=== PATIENT | female | born 1940 | race Caucasian/White ===

== ENCOUNTER 2022-11-29 13:38 | Outpatient (OUT) | payer MEDICARE, SELFPAY ==
--- NOTE | 2022-11-29 13:20 | PM.CN ---
Consult Note: HPI Data of Consult Patient: known to practice within the last 3 years Consult date: 11/29/22 Requesting Physician: Jigna Gonzalez MD Primary Care Provider: JENNIFER JUANY Consult Narrative Reason for consult: knee pain Narrative: Ashley is here for f/u of right GNB done 11/19/22 . She had >60% relief of pain with increased fx for several hours after procedure. She would like to proceed with thermal genicular RFA right knee. She requests pain med. Will give rx for naproxen. She denies blood thinner use. No new bowel or bladder issues. No new sensorimotor sx. No untoward medication SE. Pain is medial aspect of right knee worse with steps, walking. cc:: CC: Jigna Gonzalez MD Review of Systems ROS Status of ROS 10 or more systems reviewed and unremarkable except as noted in history and below Musculoskeletal Reports: extremity pain, extremity swelling, joint pain and limited range of motion Exam Constitutional: Documenting provider has reviewed patient's vital signs: yes Common normals: no apparent distress, average body habitus, oriented x3, no limitations, healthy appearing, alert and well nourished General appearance: cooperative, comfortable and well developed Orientation/consciousness: Yes awake, Yes oriented to person, Yes oriented to place and Yes oriented to time HENMT: Common normals: normocephalic and moist oral mucous membranes Respiratory: Common normals: normal respiratory effort, no retractions and no use of accessory muscles Effort & inspection: able to speak in complete sentences Extremity: Common normals: normal capillary refill and no pedal edema Left lower extremity: knee joint (limited ROM d/t pain. brisk cap refill. muscle strength bilat LE 4/5 ) Left knee: neurovascular exam (sensation intact) Skin: Common normals: no rashes or lesions noted Assessment and Plan Assessment and Plan (1) Knee osteoarthritis: Plan schedule right genicular thermal RFA naproxen rx
== END 2022-11-29 13:39 ==
PROVIDERS: PCP Internal Medicine; Visit Provider Anesthesiology Pain Medicine
DX: M17.9 Osteoarthritis of knee, unspecified (principal)
CPT/HCPCS: G0463

== ENCOUNTER 2022-12-24 10:09 | Day surgery (SDC) | payer MEDICARE, SELFPAY ==
--- NOTE | 2022-12-23 13:37 | CONS_ITS ---
PROCEDURE DATE: ??12/23/2022 PROCEDURE:? Right genicular RFA under fluoroscopic guidance. PREOPERATIVE DIAGNOSIS:? Pain secondary to arthrosis/degenerative joint disease. POSTOPERATIVE DIAGNOSIS:? Pain secondary to arthrosis/degenerative joint disease. Rhizotomy was completed using radiofrequency ablation at 80 degrees Centigrade for 90 seconds and 1-2 lesions were created at each site.? IMMEDIATE COMPLICATIONS:? None. ANESTHESIA:? Local using 2% lidocaine plain. SOLUTION USED FOR INJECTION POST LESIONING:? At the lesion site, we injected a solution of Marcaine 0.25%, Depo-Medrol 40 mg, total of 5 mL, 0.5 mL used at each site post lesioning. PROCEDURE:? After informed consent was obtained from the patient, brought to the OR, placed in the supine position.? Skin overlying the area was prepped and draped in sterile fashion using Betadine.? A 25 gauge needle was used to raise a skin wheal over the right superomedial, right inferomedial and left superolateral genicular branches, all identified under fluoroscopy, including landmarks all identified under fluoroscopy.? A rhizotomy needle with 10 mm active tip was inserted over the anesthetized area, directed towards the site, under fluoroscopic guidance.? After encountering the same, we have positive sensory stimulation, negative motor stimulation, and thus 1-2 lesions were created at each site.? Post lesioning, needle was removed.? Patient returned to the recovery room in stable condition, to be discharged home after meeting criteria. HEAVEN
--- NOTE | 2022-12-24 11:20 | PCN_ITS ---
PROCEDURE NOTE ? PROCEDURE DATE: ??12/24/2022 ? PROCEDURE:? Right genicular RFA under fluoroscopic guidance. ? PREOPERATIVE DIAGNOSIS:? Pain secondary to arthrosis/degenerative joint disease. ? POSTOPERATIVE DIAGNOSIS:? Pain secondary to arthrosis/degenerative joint disease. ? Rhizotomy was completed using radiofrequency ablation at 80 degrees Centigrade for 90 seconds and 1-2 lesions were created at each site.? ? IMMEDIATE COMPLICATIONS:? None. ? ANESTHESIA:? Local using 2% lidocaine plain. ? SOLUTION USED FOR INJECTION POST LESIONING:? At the lesion site, we injected a solution of Marcaine 0.25%, Depo-Medrol 40 mg, total of 5 mL, 0.5 mL used at each site post lesioning. ? PROCEDURE:? After informed consent was obtained from the patient, brought to the OR, placed in the supine position.? Skin overlying the area was prepped and draped in sterile fashion using Betadine.? A 25 gauge needle was used to raise a skin wheal over the right superomedial, right inferomedial and left superolateral genicular branches, all identified under fluoroscopy, including landmarks all identified under fluoroscopy.? A rhizotomy needle with 10 mm active tip was inserted over the anesthetized area, directed towards the site, under fluoroscopic guidance.? After encountering the same, we have positive sensory stimulation, negative motor stimulation, and thus 1-2 lesions were created at each site.? Post lesioning, needle was removed.? Patient returned to the recovery room in stable condition, to be discharged home after meeting criteria. HEAVEN
[2022-12-24 11:24] VITALS: BP 197/81; PULSE 76; RESP 16; TEMP 36.5; O2SAT 100
[2022-12-24 11:27] VITALS: BP 156/78
--- NOTE | 2022-12-24 11:48 | P.ON_ITS ---
Date of procedure: 12/24/22 Surgeon: Jigna Gonzalez
--- NOTE | 2022-12-24 11:48 | W.PM.PROCNOT ---
Date of procedure: 12/24/22 Surgeon: Jigna Gonzalez
[2022-12-24 11:53] VITALS: RESP 20
[2022-12-24 11:58] VITALS: BP 163/77; PULSE 72; O2SAT 91
[2022-12-24] MEDS: METHYLPREDNISOLONE ACETATE 40 MG/ML VIAL INJ (12:02)
[2022-12-24] MEDS: BUPIVACAINE HCL 0.25% PF 25 MG/10 ML VIAL 4 ML INJ (12:03)
[2022-12-24] MEDS: LIDOCAINE HCL 2% 400 MG/20 ML MDV 12 ML INJ (12:03)
[2022-12-24 12:10] VITALS: BP 183/83; PULSE 73; O2SAT 99
--- NOTE | 2022-12-25 13:25 | W.PM.PROCNOT ---
Date of procedure: 12/24/22 Pre-op diagnosis: right knee osteoarthritis/pain Post-op diagnosis: same Procedure: Genicular nerve radiofrequency ablation on the right side under fluoroscopic guidance. SOLUTION USED FOR INJECTION: Marcaine 0.25%. IMMEDIATE COMPLICATIONS: None. PROCEDURE: After informed consent was obtained from the patient, brought to the OR, placed in the supine position. Skin overlying the area was prepped and draped in sterile fashion. Subsequently, a 25 gauge spinal needle was inserted over the inferior medial genicular nerve. Landmarks were identified under fluoroscopy. Needle tip advanced until the desired location was achieved, at which point we ruled out intravascular or intraneural needle tip placement. 1 mL of solution was injected. This procedure was performed in a similar fashion at the superior medial and superior lateral branches of the genicular nerve. Throughout the procedure, no indication of intravascular or intraneural needle tip placement or injection. Post procedurally, needle removed. Patient tolerated the procedure with no complications, transferred to the recovery room in stable condition. She will be discharged home after meeting criteria. Patient informed to keep a pain diary for the first two hours post procedurally.
== END 2022-12-24 12:19 | disposition home or self-care (01) ==
PROVIDERS: PCP Internal Medicine; Visit Provider Anesthesiology Pain Medicine
DX: M17.11 Unilateral primary osteoarthritis, right knee (principal)
CPT/HCPCS: 64624; 77002; J1030

== ENCOUNTER 2023-01-09 13:55 | Outpatient (OUT) | payer MEDICARE, SELFPAY ==
--- NOTE | 2023-01-09 14:32 | PM.CN ---
Consult Note: HPI Data of Consult Consult date: 01/09/23 Requesting Physician: RAFAELA WHITNEY NP Primary Care Provider: Odell Goodson DO Consult Narrative Narrative: She is here for f/u to right GNB done 12/24/22. She received 50% relief of pain with increased fx continued through today. She does have left knee pain today and we discussed doing GNB on left knee. Hx of total knee left 9 years ago. She wants to think about procedure and will call us to schedule. No new sensorimotor or bowel or bladder issues. No adverse med SE. Medications assist patient to be able to complete ADLs cc:: CC: RAFAELA WHITNEY NP Review of Systems ROS Status of ROS 10 or more systems reviewed and unremarkable except as noted in history and below Musculoskeletal Reports: extremity pain PFSH PFSH Medical History (Updated 01/09/23 @ 14:47 by RAFAELA WHITNEY NP) Surgical History Meds Home Medications and Allergies Home Medications Medication Instructions Recorded Confirmed Type alprazolam 0.25 mg tablet (Xanax) 0.25 mg PO DAILY PRN anxiety 11/29/22 12/24/22 History aspirin 81 mg tablet,delayed 81 mg PO DAILY 11/29/22 12/24/22 History release (Adult Low Dose Aspirin) atorvastatin 20 mg tablet 20 mg PO DAILY 11/29/22 12/24/22 History cetirizine 10 mg tablet (Zyrtec) 10 mg PO DAILY 11/29/22 12/24/22 History glucosamine HCl 1,500 mg tablet 1,000 mg PO BID 11/29/22 12/24/22 History losartan 25 mg tablet 25 mg PO DAILY 11/29/22 12/24/22 History metoprolol succinate 25 mg 25 mg PO DAILY 11/29/22 12/24/22 History tablet,extended release 24 hr zolpidem 10 mg tablet (Ambien) 10 mg PO .QHS 11/29/22 12/24/22 History Allergies Allergy/AdvReac Type Severity Reaction Status Date / Time rocuronium Allergy Severe Anaphylaxis Verified 12/24/22 11:12 acetaminophen [From Vicodin] Allergy Intermediate UPSET Verified 12/24/22 11:12 STOMACH hydrocodone [From Vicodin] Allergy Intermediate UPSET Verified 12/24/22 11:12 STOMACH oxycodone [From Percocet] Allergy Intermediate Nausea, Verified 12/24/22 11:12 UPSET STOMACH Exam Constitutional Documenting provider has reviewed patient's vital signs: yes Common normals: no apparent distress, average body habitus, oriented x3, healthy appearing, alert and well nourished Orientation/consciousness: Yes awake, Yes oriented to person, Yes oriented to place and Yes oriented to time HENCA Common normals: normocephalic and moist oral mucous membranes Respiratory Common normals: normal respiratory effort, no retractions and no use of accessory muscles Effort & inspection: able to speak in complete sentences and symmetric chest movement Extremity Common normals: normal to inspection, full ROM, normal capillary refill and no pedal edema Right lower extremity: knee joint Left lower extremity: knee joint Other: left knee pain with ROM and especially climbing stairs. Brisk cap refill to bilat LE with intact sensation and muscle strength 4/5 Assessment and Plan Assessment and Plan (1) Knee osteoarthritis: Plan left genicular nerve block under fluoroscopy- she will call when ready to schedule
== END 2023-01-09 13:56 | disposition home or self-care (01) ==
LOC: PM 13:55
PROVIDERS: PCP Internal Medicine; Visit Provider Nurse Practitioner
DX: M17.0 Bilateral primary osteoarthritis of knee (principal)
CPT/HCPCS: G0463

== ENCOUNTER 2023-02-06 08:32 | Day surgery (SDC) | payer MEDICARE, SELFPAY ==
[2023-02-06 09:15] VITALS: BP 136/74; PULSE 60; RESP 16; TEMP 36.5; O2SAT 100
[2023-02-06 09:48] VITALS: RESP 20
[2023-02-06 09:54] VITALS: BP 143/64; PULSE 67; O2SAT 95
[2023-02-06] MEDS: BUPIVACAINE HCL 0.25% PF 25 MG/10 ML VIAL 8 ML INJ (09:56)
[2023-02-06 09:57] VITALS: BP 137/63; PULSE 67; O2SAT 99
--- NOTE | 2023-02-06 11:31 | W.PM.PROCNOT ---
Date of procedure: 02/06/23 Pre-op diagnosis: left knee osteoarthritis Post-op diagnosis: same as pre-op Procedure: Left knee Genicular Nerve Block SOLUTION USED FOR INJECTION: Marcaine 0.25%. IMMEDIATE COMPLICATIONS: None. PROCEDURE: After informed consent was obtained from the patient, brought to the OR, placed in the supine position. Skin overlying the area was prepped and draped in sterile fashion. Subsequently, a 25 gauge spinal needle was inserted over the inferior medial genicular nerve. Landmarks were identified under fluoroscopy. Needle tip advanced until the desired location was achieved, at which point we ruled out intravascular or intraneural needle tip placement. 1 mL of solution was injected. This procedure was performed in a similar fashion at the superior medial and superior lateral branches of the genicular nerve. Throughout the procedure, no indication of intravascular or intraneural needle tip placement or injection. Post procedurally, needle removed. Patient tolerated the procedure with no complications, transferred to the recovery room in stable condition. She will be discharged home after meeting criteria. Patient informed to keep a pain diary for the first two hours post procedurally. Anesthesia: Local Surgeon: Jigna Gonzalez Condition: stable
== END 2023-02-06 10:06 | disposition home or self-care (01) ==
LOC: SURGOUT 08:32
PROVIDERS: PCP Internal Medicine; Visit Provider Anesthesiology Pain Medicine
DX: M17.12 Unilateral primary osteoarthritis, left knee (principal)
CPT/HCPCS: 64454

== ENCOUNTER 2023-02-13 13:27 | Outpatient (OUT) | payer MEDICARE, SELFPAY ==
--- NOTE | 2023-02-13 13:54 | PM.CN ---
Consult Note: HPI Data of Consult Patient: known to practice within the last 3 years Requesting Physician: Carisa Parrish NP Primary Care Provider: Odell Goodson DO Consult Narrative Reason for consult: left genicular nerve block follow up Narrative: Ashley Aguila a pleasant 82 year old female presents for follow up on chronic knee pain. Patient had a left genicular knee block on 02/06 with 80% pain relief and improvement in ability to stand longer, walk further, and complete ADLs after procedure. Today pain is 6-7/10 in left knee and she would like to discuss thermal RFA. cc:: CC: Carisa Parrish NP Review of Systems ROS Status of ROS 10 or more systems reviewed and unremarkable except as noted in history and below Musculoskeletal Reports: joint pain (left knee) PFSH PFS Medical History (Updated 02/13/23 @ 13:59 by Carisa Parrish NP) Surgical History Meds Home Medications and Allergies Home Medications Medication Instructions Recorded Confirmed Type alprazolam 0.25 mg tablet (Xanax) 0.25 mg PO DAILY PRN anxiety 11/29/22 02/06/23 History aspirin 81 mg tablet,delayed 81 mg PO DAILY 11/29/22 02/06/23 History release (Adult Low Dose Aspirin) atorvastatin 20 mg tablet 20 mg PO DAILY 11/29/22 02/06/23 History glucosamine HCl 1,500 mg tablet 1,000 mg PO BID 11/29/22 02/06/23 History losartan 25 mg tablet 25 mg PO DAILY 11/29/22 02/06/23 History metoprolol succinate 25 mg 25 mg PO DAILY 11/29/22 02/06/23 History tablet,extended release 24 hr zolpidem 10 mg tablet (Ambien) 10 mg PO .QHS 11/29/22 02/06/23 History Allergies Allergy/AdvReac Type Severity Reaction Status Date / Time rocuronium Allergy Severe Anaphylaxis Verified 02/06/23 09:23 acetaminophen [From Vicodin] Allergy Intermediate UPSET Verified 02/06/23 09:23 STOMACH hydrocodone [From Vicodin] Allergy Intermediate UPSET Verified 02/06/23 09:23 STOMACH oxycodone [From Percocet] Allergy Intermediate Nausea, Verified 02/06/23 09:23 UPSET STOMACH Exam Constitutional Documenting provider has reviewed patient's vital signs: yes Common normals: no apparent distress, oriented x3, healthy appearing, alert and well nourished General appearance: cooperative Nutritional appearance: overweight HENMT Common normals: normocephalic, hearing grossly normal bilaterally and moist oral mucous membranes Head and scalp: normocephalic Eye Common normals: PERRL Pupil: PERRL Neck & C-Spine Common normals: full ROM General: normal visual inspection Chest Common normals: inspection of chest normal Respiratory Common normals: normal respiratory effort, no retractions and no use of accessory muscles Back & Pelvis Common normals: thoracic and lumbar spine normal to inspection, no thoracic nor lumbar tenderness, thoraco-lumbar ROM normal and straight leg raise negative bilaterally Sacroiliac joints: SI joints normal Extremity Common normals: no calf tenderness and no pedal edema Left lower extremity: knee joint (pain with activity, weight bearing, ROM. Limited ROM. Strength 4/5) Neuro Common normals: oriented x3, CN's II-XII intact bilaterally, moves all extremities, no focal motor deficits, no sensory deficits noted and deep tendon reflexes 2+ bilaterally Sensorium/orientation: alert Motor exam: no movement abnormalities noted and strength abnormal (5/5 BUE, 4/5 BLE) Psych Common normals: mental status grossly normal, thought process normal, cooperative, affect normal, speech normal and activity/motor behavior normal Speech: normal speech Thought process: normal thought process Results Additional Findings Additional findings: I have checked an [place] report on this patient today and there are no aberrancies noted in the prescribing history.?? A drug screen was completed and reviewed within the last year, and if there has not been a drug screen completed we ordered one today to monitor higher risk, state monitored pain medication use. Assessment and Plan Assessment and Plan (1) Knee osteoarthritis: (2) Chronic pain syndrome: (3) BMI 31.0-31.9,adult: Assessment and Plan: The patient was counseled that proper dietary changes and consistent participation in a home exercise plan can lead to weight loss. Weight loss can help to improve functionality in patients with chronic pain.? Plan -proceed with left genicular thermal RFA with PO sedation. Patient reports she has valium at home, instructed we would write for 5mg PO 30 mins prior to procedure if her is or she does not actually have at home. -procedure risks vs benefits discussed -continue home exercise -continue pool exercises, has been going 4x/week -continue naproxen 500mg PRN -follow up one month after RFA
== END 2023-02-13 13:28 | disposition home or self-care (01) ==
LOC: PM 13:28
PROVIDERS: PCP Internal Medicine; Visit Provider Nurse Practitioner
DX: M17.12 Unilateral primary osteoarthritis, left knee (principal); G89.4 Chronic pain syndrome
CPT/HCPCS: G0463

== ENCOUNTER 2023-03-04 11:09 | Day surgery (SDC) | payer MEDICARE, SELFPAY ==
[2023-03-04 11:46] VITALS: BP 133/62; PULSE 67; RESP 16; TEMP 36.3; O2SAT 99
[2023-03-04 12:45] VITALS: PULSE 60; RESP 18; O2SAT 95
[2023-03-04 12:46] VITALS: BP 159/67
[2023-03-04] MEDS: LIDOCAINE HCL 2% 400 MG/20 ML MDV 15 ML INJ (12:48)
[2023-03-04] MEDS: BUPIVACAINE HCL 0.25% PF 25 MG/10 ML VIAL INJ (12:48)
[2023-03-04] MEDS: METHYLPREDNISOLONE ACETATE 40 MG/ML VIAL INJ (12:49)
[2023-03-04 12:52] VITALS: BP 165/71; PULSE 65; RESP 18; O2SAT 95
--- NOTE | 2023-03-04 16:11 | W.PM.PROCNOT ---
Date of procedure: 03/04/23 Pre-op diagnosis: Left knee osteoarthritis Post-op diagnosis: same as pre-op Procedure: left knee genicular nerve Radiofrequency ablation Under fluoroscopic guidance Rhizotomy was created using radio frequency ablation at 80?C for 90 seconds 1 to 2 lesions created at each site. Post lesioning injection of 2 mL each of 0.25% Marcaine and 2% lidocaine with Depo-Medrol 40mg. 0.5 to 1 mL injected at each site Anesthesia local 2% lidocaine for local anesthetic Timeout process compliant After informed consent obtained.Patient brought to the procedure room placed in the supine position skin overlying the area was prepped and draped in a sterile fashion using betadine. 25 gauge needle was used to create a skin wheal over each of the targeted areas utilizing 2% lidocaine. A rhizotomy needle with a 10 mm active tip was inserted over each of the anesthetized areas and directed towards each of the genicular nerves accomplished under fluoroscopic guidance. after encountering the same we had positive sensory stimulation, negative motor stimulation was noted. lesions were then created. Post lesioning, steroid solution was injected needles removed. Patient was transferred to recovery room in stable condition to be discharged home after meeting criteria. Anesthesia: Local Surgeon: Jigna Gonzalez Condition: stable
== END 2023-03-04 13:07 | disposition home or self-care (01) ==
LOC: SURGOUT 11:10
PROVIDERS: PCP Internal Medicine; Visit Provider Anesthesiology Pain Medicine
DX: M17.12 Unilateral primary osteoarthritis, left knee (principal)
CPT/HCPCS: 64624; J1030

== ENCOUNTER 2023-04-09 12:51 | Outpatient (OUT) | payer MEDICARE, SELFPAY ==
--- NOTE | 2023-04-09 13:22 | PM.CN ---
Consult Note: HPI Data of Consult Patient: known to practice within the last 3 years Requesting Physician: Carisa Parrish NP Primary Care Provider: Odell Goodson DO Consult Narrative Reason for consult: f/u Narrative: Ashley Aguila a pleasant 82 year old female presents for evaluation and management of chronic knee pain. Patient today rating pain 5/10 in bilateral knees. Recently had a genicular RFA of left elsie with 20% pain relief and functional improvement. Patient was previously a patient of Dr Marcelo and is now looking for another opinion. Patient would like to discuss additional imaging while she looks for new conservation specialist. Patient has previously had a total knee replacement of left knee. cc:: CC: Carisa Parrish NP Review of Systems ROS Status of ROS 10 or more systems reviewed and unremarkable except as noted in history and below Musculoskeletal Reports: joint pain (bilateral knees) PFSH PFSH Medical History (Updated 04/09/23 @ 13:26 by Carisa Parrish NP) Acid reflux ?K21.9 - Gastro-esophageal reflux disease without esophagitis (ICD-10) Cataract ?H26.9 - Unspecified cataract (ICD-10) Hearing deficit ?H91.90 - Unspecified hearing loss, unspecified ear (ICD-10) Heartburn ?R12 - Heartburn (ICD-10) Hypertension ?I10 - Essential (primary) hypertension (ICD-10) [place] stenosis of renal artery ?I70.1 - Atherosclerosis of renal artery (ICD-10) Surgical History Meds Home Medications and Allergies Home Medications Medication Instructions Recorded Confirmed Type alprazolam 0.25 mg tablet (Xanax) 0.25 mg PO DAILY PRN anxiety 11/29/22 03/04/23 History aspirin 81 mg tablet,delayed 81 mg PO DAILY 11/29/22 03/04/23 History release (Adult Low Dose Aspirin) atorvastatin 20 mg tablet 20 mg PO DAILY 11/29/22 03/04/23 History glucosamine HCl 1,500 mg tablet 1,000 mg PO BID 11/29/22 03/04/23 History losartan 25 mg tablet 25 mg PO DAILY 11/29/22 03/04/23 History metoprolol succinate 25 mg 25 mg PO DAILY 11/29/22 03/04/23 History tablet,extended release 24 hr zolpidem 10 mg tablet (Ambien) 10 mg PO .QHS 11/29/22 03/04/23 History Allergies Allergy/AdvReac Type Severity Reaction Status Date / Time rocuronium Allergy Severe Anaphylaxis Verified 03/04/23 11:51 acetaminophen [From Vicodin] Allergy Intermediate UPSET Verified 03/04/23 11:51 STOMACH hydrocodone [From Vicodin] Allergy Intermediate UPSET Verified 03/04/23 11:51 STOMACH oxycodone [From Percocet] Allergy Intermediate Nausea, Verified 03/04/23 11:51 UPSET STOMACH Exam Constitutional Documenting provider has reviewed patient's vital signs: yes Common normals: no apparent distress, oriented x3, healthy appearing, alert and well nourished General appearance: cooperative HENMT Common normals: normocephalic, hearing grossly normal bilaterally and moist oral mucous membranes Head and scalp: normocephalic Eye Common normals: PERRL Pupil: PERRL Neck & C-Spine Common normals: full ROM General: normal visual inspection Chest Common normals: inspection of chest normal Respiratory Common normals: normal respiratory effort, no retractions and no use of accessory muscles Extremity Right lower extremity: knee joint Left lower extremity: knee joint Other: right knee swollen, bilateral knees enlarged diameter. No redness or warmth. Patient does have pain with ambulation and stairs. Intermittent edema of left knee. Neuro Common normals: oriented x3, CN's II-XII intact bilaterally, moves all extremities, no focal motor deficits, no sensory deficits noted and deep tendon reflexes 2+ bilaterally Sensorium/orientation: alert Motor exam: strength 5/5 throughout and no movement abnormalities noted Psych Common normals: mental status grossly normal, thought process normal, cooperative, affect normal, speech normal and activity/motor behavior normal Speech: normal speech Thought process: normal thought process Assessment and Plan Assessment and Plan (1) Bilateral knee pain: (2) Knee osteoarthritis: (3) Chronic pain syndrome: Plan Patient continues water therapy 4x a week and cardiac rehab. Advised against naproxen use, encouraged acetaminophen. Continues to have bilateral knee pain that has failed PT and conservative medication management. Patient pursuing additional input from orthopedic specialists. Patient would like an MRI to help get more answers and help with her case of seeing a specialist. I am in agreement as she has failed PT and conservative measures and continues to have bilateral knee pain. Left RFA 20% pain relief and functional improvement ongoing MRI bilateral Knees f/u 2 months
== END 2023-04-09 12:52 | disposition home or self-care (01) ==
LOC: PM 12:52
PROVIDERS: PCP Internal Medicine; Visit Provider Nurse Practitioner
DX: M25.562 Pain in left knee (principal); M25.561 Pain in right knee; G89.4 Chronic pain syndrome; M17.0 Bilateral primary osteoarthritis of knee
CPT/HCPCS: G0463

== ENCOUNTER 2023-04-24 13:29 | Outpatient (OUT) | payer MEDICARE, SELFPAY ==
--- NOTE | 2023-04-24 13:33 | MR_ITS ---
The [address] [address] Patient Name: JOAN BROWN MRN: [id number] date: 1940 Sex: F Assigned Patient Location: MRI Current Patient Location: MRI Accession/Order Number: [id number] Exam Date: 04/24/2023 13:50 Report Date: 04/24/2023 16:47 At the request of: COREEN SANCHEZ Procedure: MR knee LT wo con MR knee LT wo con History:Left Knee Pain . Comparison: None.. TECHNIQUE: Multiplanar multisequence MRI of the left knee was obtained. No intravenous or intra-articular contrast was administered before the examination. Limitations: The exam is very suboptimal due to artifact from the arthroplasty. The examination is further suboptimal as the patient could not extend the knee. FINDINGS: There is no obvious subluxation or dislocation. There is mild edema in the region of the Hoffa's fat pad. There is mild muscular atrophy. The ligaments cannot be evaluated confidently due to artifact. The medial collateral ligament and the IT band appears to be intact. Extensive blooming artifact as seen in the soft tissues anterior to the knee in the prepatellar subcutaneous tissue. MR/MR knee LT wo con Impression: Left knee arthroplasty is in place. No evidence of fluid collection. Mild subcutaneous edema. Mild edema in the Hoffa's fat pad. Electronically authenticated by: ABBEY SMITH Date: 04/24/2023 16:47
--- NOTE | 2023-04-24 13:33 | MR_ITS ---
The [address] [address] Patient Name: JOAN BROWN MRN: [id number] date: 1940 Sex: F Assigned Patient Location: MRI Current Patient Location: MRI Accession/Order Number: [id number] Exam Date: 04/24/2023 13:50 Report Date: 04/24/2023 16:46 At the request of: COREEN SANCHEZ Procedure: MR knee RT wo con MR knee RT wo con History:Right Knee Pain . Comparison: None. TECHNIQUE: Multiplanar multisequence MRI of the knee was obtained. No intravenous or intra-articular contrast was administered before the examination. Limitations: The exam is suboptimal due to motion artifact. FINDINGS: Alignment: The tibial tuberosity trochlear groove distance is within normal limits. There is no evidence of subluxation. MEDIAL MENISCUS: There is tear of the medial meniscus. There appears to be hypoattenuated material in the intercondylar region and deep to the MCL which may represent torn and disintegrated medial meniscus. LATERAL MENISCUS: There is severe mucoid degeneration. ANTERIOR CRUCIATE LIGAMENT:The ACL is torn. POSTERIOR CRUCIATE LIGAMENT: Intact with mild edema. MEDIAL COLLATERAL LIGAMENT:It is intact. There is medial buckling secondary to mass effect from the intra-articular body which is likely torn medial meniscus. LATERAL COLLATERAL LIGAMENT COMPLEX:The IT band is slightly thickened distally close to its insertion. The biceps femoris and the fibular collateral ligament are intact. EXTENSOR TENDONS: There is mild thickening and edema of the distal quadriceps tendon and the distal patellar tendon. BONE MARROW: No marrow signal abnormality is identified to suggest the presence of a fracture, contusion, bone infarct, or diffuse infiltrative process of the knee. CARTILAGE: PATELLOFEMORAL:High-grade full-thickness tear of the cartilage at the lateral patellar facet and at the trochlea. MEDIAL COMPARTMENT:High-grade full-thickness cartilage loss at the weightbearing surface. Marginal spurring. LATERAL COMPARTMENT:Full-thickness cartilage loss at the weightbearing surface. MISCELLANEOUS: JOINT EFFUSION:There is small joint effusion with intra-articular bodies. Synovitis. RODRIGUEZ'S CYST:Small popliteal cyst is noted. SUBCUTANEOUS TISSUE:Focal edema is seen anterior to the insertion of the patellar tendon. There is osteoarthritis at the proximal tibiofibular joint. An intra-articular body measuring 7 mm is seen posterior to the mid PCL and another intra-articular body measuring 1.6 cm is seen posterior to the inferior PCL. MR/MR knee RT wo con Impression: 1. High-grade tearing of the medial meniscus. 2. Intra-articular bodies. 3. Severe, tricompartmental osteoarthritis. 4. Tearing of the ACL. 5. Grade 2 pattern sprain of the PCL and the MCL. 6. Patellar tendinosis with focal edema anterior to it. Remainder of the chronic findings as described above. Electronically authenticated by: ABBEY SMITH Date: 04/24/2023 16:46
== END 2023-04-24 13:30 | disposition home or self-care (01) ==
LOC: MRI 13:29
PROVIDERS: PCP Internal Medicine; Visit Provider Nurse Practitioner
DX: M25.562 Pain in left knee (principal); M17.11 Unilateral primary osteoarthritis, right knee; Z96.652 Presence of left artificial knee joint; S83.241A Other tear of medial meniscus, current injury, right knee, initial encounter; S83.511A Sprain of anterior cruciate ligament of right knee, initial encounter; S83.411A Sprain of medial collateral ligament of right knee, initial encounter; S76.111A Strain of right quadriceps muscle, fascia and tendon, initial encounter; M76.51 Patellar tendinitis, right knee; M25.461 Effusion, right knee; M71.21 Synovial cyst of popliteal space [Baker], right knee
CPT/HCPCS: 73721

== ENCOUNTER 2023-05-29 09:50 | Outpatient (OUT) | payer MEDICARE, SELFPAY ==
--- NOTE | 2023-05-29 10:07 | P.CN_ITS ---
Consult Note: HPI Data of Consult Patient: known to practice within the last 3 years Requesting Physician: Carisa Parrish NP Primary Care Provider: Odell Goodson, DO Consult Narrative Reason for consult: f/u Narrative: Ashley Aguila a pleasant 82 year old female presents for evaluation and management of chronic bilateral knee pain, left knee has been surgically replaced. Patient had MRI of bilateral knees and was seen by Dr Pichardo, patient does not wish to have surgery. Dr Pichardo recommended left hip intra-articular injection. Pain today in bilateral knees 10/07 cc:: CC: Carisa Parrish NP Review of Systems ROS Status of ROS 10 or more systems reviewed and unremarkable except as noted in history and below Musculoskeletal Reports: joint pain (bilateral knees) PFSH PFSH Medical History (Updated 05/29/23 @ 10:26 by Carisa Parrish NP) Acid reflux ?K21.9 - Gastro-esophageal reflux disease without esophagitis (ICD-10) Cataract ?H26.9 - Unspecified cataract (ICD-10) Hearing deficit ?H91.90 - Unspecified hearing loss, unspecified ear (ICD-10) Heartburn ?R12 - Heartburn (ICD-10) Hypertension ?I10 - Essential (primary) hypertension (ICD-10) [place] stenosis of renal artery ?I70.1 - Atherosclerosis of renal artery (ICD-10) Surgical History H/O breast biopsy ?Z98.890 - Other specified postprocedural states (ICD-10) H/O section ?Z98.891 - History of uterine scar from previous surgery (ICD-10) H/O cystoscopy ?Z98.890 - Other specified postprocedural states (ICD-10) H/O myringotomy ?Z98.890 - Other specified postprocedural states (ICD-10) H/O oral surgery ?Z98.890 - Other specified postprocedural states (ICD-10) History of bunionectomy ?Z98.890 - Other specified postprocedural states (ICD-10) History of ear surgery ?Z98.890 - Other specified postprocedural states (ICD-10) History of tonsillectomy ?Z90.89 - Acquired absence of other organs (ICD-10) Hx of cholecystectomy ?Z90.49 - Acquired absence of other specified parts of digestive tract (ICD- 10) Hx of total knee arthroplasty ?Z96.659 - Presence of unspecified artificial knee joint (ICD-10) S/P foot surgery ?Z98.890 - Other specified postprocedural states (ICD-10) S/P vascular bypass ?Z95.828 - Presence of other vascular implants and grafts (ICD-10) Meds Home Medications and Allergies Home Medications Medication Instructions Recorded Confirmed Type alprazolam 0.25 mg tablet (Xanax) 0.25 mg PO DAILY PRN anxiety 11/29/22 03/04/23 History aspirin 81 mg tablet,delayed 81 mg PO DAILY 11/29/22 03/04/23 History release (Adult Low Dose Aspirin) atorvastatin 20 mg tablet 20 mg PO DAILY 11/29/22 03/04/23 History glucosamine HCl 1,500 mg tablet 1,000 mg PO BID 11/29/22 03/04/23 History losartan 25 mg tablet 25 mg PO DAILY 11/29/22 03/04/23 History metoprolol succinate 25 mg 25 mg PO DAILY 11/29/22 03/04/23 History tablet,extended release 24 hr zolpidem 10 mg tablet (Ambien) 10 mg PO .QHS 11/29/22 03/04/23 History Allergies Allergy/AdvReac Type Severity Reaction Status Date / Time rocuronium Allergy Severe Anaphylaxis Verified 03/04/23 11:51 acetaminophen [From Vicodin] Allergy Intermediate UPSET Verified 03/04/23 11:51 STOMACH hydrocodone [From Vicodin] Allergy Intermediate UPSET Verified 03/04/23 11:51 STOMACH oxycodone [From Percocet] Allergy Intermediate Nausea, Verified 03/04/23 11:51 UPSET STOMACH Exam Constitutional Documenting provider has reviewed patient's vital signs: yes Common normals: no apparent distress, oriented x3, healthy appearing, alert and well nourished General appearance: cooperative HENMT Common normals: normocephalic, hearing grossly normal bilaterally and moist oral mucous membranes Head and scalp: normocephalic Eye Common normals: PERRL Pupil: PERRL Neck & C-Spine Common normals: full ROM General: normal visual inspection Chest Common normals: inspection of chest normal Respiratory Common normals: normal respiratory effort, no retractions and no use of accessory muscles Back & Pelvis Other: negative internal and external rotation of hip, no tenderness over bilateral GTB negative facet loading, no back pain Extremity Right lower extremity: knee joint Left lower extremity: knee joint Other: right knee swollen, bilateral knees enlarged diameter. No redness or warmth. Patient does have pain with ambulation and stairs. Intermittent edema of left knee. Neuro Common normals: oriented x3, CN's II-XII intact bilaterally, moves all extremities, no focal motor deficits, no sensory deficits noted and deep tendon reflexes 2+ bilaterally Sensorium/orientation: alert Motor exam: strength 5/5 throughout and no movement abnormalities noted Psych Common normals: mental status grossly normal, thought process normal, cooperative, affect normal, speech normal and activity/motor behavior normal Speech: normal speech Thought process: normal thought process Assessment and Plan Assessment and Plan (1) Osteoarthritis of left hip: (2) Bilateral knee pain: (3) Chronic pain syndrome: Plan update xray of left hip left hip intra-artciular joint injection under fluoroscopy f/u with Dr Gonzalez after injection, we are limited as pt is on PRN benzodiazepines, has failed to respond to injection therapy, and not interested in re-trialing duloxetine for chronic pain. Patients PCP Dr Goodson did order tramadol for patient to try.
== END 2023-05-29 09:51 | disposition home or self-care (01) ==
LOC: PM 09:50
PROVIDERS: PCP Internal Medicine; Visit Provider Nurse Practitioner
DX: M25.552 Pain in left hip (principal); M16.12 Unilateral primary osteoarthritis, left hip; M25.562 Pain in left knee; M25.561 Pain in right knee; G89.4 Chronic pain syndrome
CPT/HCPCS: 73502; G0463

== ENCOUNTER 2023-05-29 10:41 | Outpatient (OUT) | payer MEDICARE, SELFPAY ==
--- NOTE | 2023-05-29 11:03 | XR_ITS ---
The [address] [address] Patient Name: JOAN BROWN MRN: [id number] date: 1940 Sex: F Assigned Patient Location: [facility] Current Patient Location: [facility] Accession/Order Number: [id number] Exam Date: 05/29/2023 10:56 Report Date: 05/31/2023 04:42 At the request of: COREEN SANCHEZ Procedure: XR hip LT min 2V PROCEDURE: XR hip LT min 2V HISTORY: Left Hip Pain , chronic COMPARISON: None. FINDINGS: BONES:Marked joint space narrowing with subchondral sclerosis and large periarticular degenerative osteophytes. No fracture, dislocation, or bone lesion. SOFT TISSUES:No visible soft tissue swelling. EFFUSION:None visible. OTHER: Negative. XR/XR hip LT min 2V IMPRESSION: 1. Marked degenerative joint disease of the left hip. Electronically authenticated by: TARIK MONROE Date: 05/31/2023 04:42
--- OUTSIDE RECORDS SUMMARY | 2023-06-18 00:50 | XMS_ITS | CCD ---
Author Name Unknown Address [address] [place] [address] Organization [facility] Care Team Providers Care Tone Cabinet Assembler Name Role Phone Odell Goodson Unavailable HAMZAH, DR RODRIGUEZ Admitting Unavailable HAMZAH, DR RODRIGUEZ Attending Unavailable HAMZAH, DR RODRIGUEZ Primary Care Unavailable LAKSHMIPATHY ., TANG Consulting Helen vailable HAMZAH, DR RODRIGUEZ Primary Care Unavailable LAKSHMIPATHY ., TANG Admitting Helen vailable LAKSHMIPATHY ., TANG Attending Helen vailable LAKSHMIPATHY ., NARENDTRACYATH Admitting Helen vailable BALL, DR RODRIGUEZ Primary Care Unavailable LAKSHMIPATHY ., TANG Attending Helen vailable LAKSHMIPATHY ., TANG Consulting Helen vailable HAMZAH, DR RODRIGUEZ Primary Care Unavailable HALKER ., RAFAELA Admitting Unavailable HALKER .RAFAELA Attending Unavailable JEREMIAS TERAN Attending Unavailable JEREMIAS TERAN Consulting Unavailable JEREMIAS TERAN Admitting Unavailable HAMZAH, DR RODRIGUEZ Primary Care Unavailable HAMZAH, DR RODRIGUEZ Admitting Unavailable HAMZAH, DR RODRIGUEZ Attending Unavailable HAMZAH, DR RODRIGUEZ Consulting Unavailable HAMZAH, DR RODRIGUEZ Primary Care Unavailable ZIEBER, DR TARIK Gee Consulting Unavailable HAMZAH, DR RODRIGUEZ Admitting Unavailable BALL, DR RODRIGUEZ Attending Unavailable BALL, DR RODRIGUEZ Consulting Unavailable HAMZAH, DR RODRIGUEZ Primary Care Unavailable JENNY, DR JOELLEN Ontiveros Consulting Unavailable JEREMIAS TERAN Consulting Unavailable ODILIA ALCAZAR Attending Unavailable JEREMIAS TERAN Attending Unavailable Magno Pichardo II Unavailable Magno Pichardo II Attending Unavailalcides e Magno Pichardo II Admitting Unavailabl e Allergies Allergy Classification Reported Allergen(s) Allergy Type Date of Onset Reaction(s) Facility (12 sources) Acetaminophen / HYDROcodone; Translations: [Vicodin] Drug Allergy 03-04-20 12 Unknown [facility] Repository (10 sources) Acetaminophen / oxyCODONE Drug Allergy Unknown [facility] Other (10 sources) Ciprofloxacin Drug Allergy Unknown [facility] Other (11 sources) Rocuronium; Translations: [ROCURONIUM] Drug Allergy 06-17-20 14 Unknown [facility] Repository (10 sources) Sulfamethoxazole / Trimethoprim Drug Allergy Unknown [facility] Other (2 sources) Acetaminophen / oxyCODONE Drug Allergy 03-04-20 12 [facility] Repository (2 sources) Rocuronium Drug Allergy 03-17-20 12 [facility] Repository (1 source) Acetaminophen / HYDROcodone; Translations: [HYDROCODONE-ACETAM INOPHEN] Drug Allergy 06-17-20 14 [facility] Repository (1 source) Acetaminophen / oxyCODONE; Translations: [OXYCODONE-ACETAMIN OPHEN] Drug Allergy 06-17-20 14 [facility] Repository (7 sources) Vicodin *ANALGESICS - OPIOID* Propensity to adverse reactions Unknown [facility]SDN Other Medications Current Medications Medication Drug Class(es) Dates Sig (Normalized) Sig (Original) acetaminophen 500 mg oral capsule (10 sources) take 1 capsule by mouth every six hours Acetaminophen 500 MG 1 capsule as needed Orally every 6 hrs Active ALPRAZolam 0.25 mg oral tablet (10 sources) Benzodiazepine take 1 tablet by mouth every twelve hours ALPRAZolam 0.25 MG 1 tablet Orally Twice a day prn Active amoxicillin 875 mg oral tablet (1 source) Penicillin-class Antibacterial Start: 06-06-2023 take 1 tablet by mouth every twelve hours Amoxicillin 875 MG 1 tablet Orally Twice a day for 5 days May, Active aspirin 81 mg delayed release oral tablet (10 sources) Platelet Aggregation Inhibitor, Nonsteroidal Anti-inflammatory Drug take 1 tablet by mouth every twenty-four hours Aspirin 81 81 MG 1 tablet Orally Once a day Active take 1 tablet by mouth once joaquin y Aspirin 81 81 MG 1 tablet Orally Once a day Active atorvastatin 20 mg oral tablet (10 sources) HMG-CoA Reductase Inhibitor take 1 tablet by mouth every twenty-four hours Atorvastatin Calcium 20 MG 1 tablet Orally Once a day Active cholecalciferol 0.025 mg oral tablet (10 sources) Vitamin D take 1 tablet by mouth every twenty-four hours Vitamin D-[address] 25 MCG (1000 UT) 1 tablet Orally Once a day Active Diclofenac (5 sources) Nonsteroidal Anti-inflammatory Drug Voltaren 1 % as directed Externally Active docusate sodium 100 mg oral capsule (2 sources) take 1 capsule by mouth every twenty-four hours Stool Softener 100 MG 1 capsule as needed Orally Once a day Active DULoxetine 30 mg delayed release oral capsule (2 sources) Serotonin and Norepinephrine Reuptake Inhibitor take 1 capsule by mouth every twenty-four hours DULoxetine HCl 30 MG 1 capsule Orally Once a day Active losartan potassium 25 mg oral tablet (10 sources) Angiotensin 2 Receptor Alexandre take 1 tablet by mouth every twenty-four hours Losartan Potassium 25 MG 1 tablet Orally Once a day Active 24 hr metoprolol succinate 50 mg extended release oral tablet (10 sources) beta-Adrenergic Alexandre take 0.5 tablet by mouth once daily Metoprolol Succinate ER 50 MG 1/2 tablet Orally Once a day Active take 1 tablet by christopher th every twenty-four hours Metoprolol Succinate ER 50 MG 1 tablet Orally Once a day Active mupirocin 0.02 mg/mg topical ointment (1 source) RNA Synthetase Inhibitor Antibacterial Start: 06-06-2023 Mupirocin 2 % 1 application Externally Twice a day for 10 days May, Active naproxen 500 mg oral tablet (1 source) Nonsteroidal Anti-inflammatory Drug take 1 tablet by mouth every twelve hours at mealtime as needed Naproxen 500 MG 1 tablet with food or milk as needed Orally every 12 hrs Active traMADol hydrochloride 50 mg oral tablet (7 sources) Opioid Agonist Start: 05-20-2023 take 1 tablet by mouth twice daily as needed for pain traMADol HCl 50 MG 1 tablet as needed Orally twice daily as needed for pain for 30 days Apr, Active Vitamin E 100 UNIT (10 sources) Vitamin E 100 UNIT as directed Orally Active zolpidem tartrate 10 mg oral tablet (10 sources) gamma-Aminobutyric Acid-ergic Agonist Start: 04-16-2023 take 1 tablet by mouth at bedtime as needed Zolpidem Tartrate 10 MG TAKE 1 TABLET BY MOUTH AT BEDTIME NEEDED FOR INSOMNIA for 90 Mar, Active Start: 10-01-2022 Zolpidem Tartr ate 10 MG TAKE 1 TABLET BY MOTH AT BEDTIME NEEDED FOR INSOMNIA for 90 Sep, Active take 1 tablet by christopher th every twenty-four hours Zolpidem Tartrate 10 MG 1 tablet at bedtime as needed Orally Once a day Active Completed/Discontinued Medications Medication Drug Class(es) Dates Sig (Normalized) Sig (Original) azithromycin 250 mg oral tablet (12 sources) Macrolide Antimicrobial Start: 10-08-2022 Azithromycin 250 MG as directed Orally daily for 5 days Apr, Not-Taking/PRN loratadine 10 mg oral tablet (10 sources) take 1 tablet by mouth every twenty-four hours Claritin 10 MG 1 tablet Orally Once a day Not-Taking/PRN triamcinolone acetonide 40 mg/ml injectable suspension (12 sources) Corticosteroid Start: 05-21-2023 Kenalog-40 Apr, 120 mg Start: 01-21-2023 Triamcinolone Acetonide 0.025 % 1 application Externally Once a day as needed for 14 days Dec, Active Start: 01-21-2023 Triamcinolone Acetonide 0.025 % 1 application Externally Once a day as needed for 14 days Dec, Active Problems Active Problems Problem Classification Problem Date Documented Date Episodic/Chronic Acute bronchitis (12 sources) Acute infective bronchitis; Translations: [Acute bronchitis due to other specified organisms] Episodic Allergic reactions (7 sources) Atopic dermatitis; Translations: [Atopic dermatitis, unspecified] Chronic Anxiety disorders (14 sources) Generalized anxiety disorder; Translations: [Generalized anxiety disorder] Chronic Cardiac dysrhythmias (17 sources) Paroxysmal atrial fibrillation; Translations: [Paroxysmal atrial fibrillation] Onset: 2 Chronic Congestive heart failure; nonhypertensive (2 sources) Chronic systolic (congestive) heart failure; Translations: [Chronic systolic (congestive) heart failure] Onset: 2 Chronic Coronary atherosclerosis and other heart disease (20 sources) Coronary arteriosclerosis; Translations: [Atherosclerotic heart disease of [place] coronary artery without angina pectoris] Onset: 2 Chronic Coronary atherosclerosis and other heart disease (3 sources) Presence of aortocoronary bypass graft; Translations: [PRESENCE AORTOCORONARY BYPASS GRAFT] Onset: 2 Episodic Disorders of lipid metabolism (15 sources) Familial hypercholesterolemia; Translations: [Familial hypercholesterolemia] Onset: 3 Chronic E Codes: Adverse effects of medical drugs (10 sources) Lipid-lowering drug adverse reaction; Translations: [Adverse effect of antihyperlipidemic and antiarteriosclerotic drugs, initial encounter] Episodic Esophageal disorders (10 sources) Gastro-esophageal reflux disease with esophagitis; Translations: [Gastroesophageal reflux disease with esophagitis without hemorrhage] Chronic Essential hypertension (20 sources) Essential hypertension; Translations: [Essential (primary) hypertension] Onset: 3 Chronic Inflammatory diseases of female pelvic organs (10 sources) Vulvovaginitis; Translations: [Acute vaginitis] Episodic Miscellaneous mental health disorders (10 sources) Primary insomnia; Translations: [Primary insomnia] Chronic Nonspecific chest pain (5 sources) Precordial pain; Translations: [PRECORDIAL PAIN] Onset: 3 Episodic Occlusion or stenosis of precerebral arteries (14 sources) Left carotid artery stenosis; Translations: [Occlusion and stenosis of left carotid artery] Onset: 2 Chronic Osteoarthritis (20 sources) Primary gonarthrosis, bilateral; Translations: [Bilateral primary osteoarthritis of knee] Onset: 3 Chronic Other aftercare (2 sources) Other prison (current) drug therapy; Translations: [OTH SHELTER CURRENT DRUG THERAPY] Onset: 3 Episodic Other circulatory disease (3 sources) Other specified symptoms and signs involving the circulatory and respiratory systems Episodic Other connective tissue disease (5 sources) History of left total knee replacement; Translations: [Presence of left artificial knee joint] Chronic Other connective tissue disease (1 source) Presence of left artificial knee joint Chronic Other connective tissue disease (10 sources) Myalgia caused by statin; Translations: [Myalgia, unspecified site] Episodic Other nervous system disorders (1 source) Other chronic pain; Translations: [OTHER CHRONIC PAIN] Onset: 3 Chronic Other non-traumatic joint disorders (1 source) Pain in left knee Episodic Other nutritional; endocrine; and metabolic disorders (10 sources) Body mass index 30+ - obesity; Translations: [Obesity, unspecified] Chronic Other nutritional; endocrine; and metabolic disorders (1 source) Obesity, unspecified Chronic Other skin disorders (1 source) Follicular disorder, unspecified Episodic Other upper respiratory disease (1 source) Dysphonia Episodic Other upper respiratory infections (11 sources) Acute recurrent maxillary sinusitis; Translations: [Acute maxillary sinusitis, unspecified] Episodic Residual codes; unclassified (10 sources) Menopause present; Translations: [Asymptomatic menopausal state] Episodic Spondylosis; intervertebral disc disorders; other back problems (16 sources) Lumbosacral spondylosis with radiculopathy; Translations: [Other spondylosis with radiculopathy, lumbosacral region] Onset: 2 Chronic Unclassified (1 source) Pain in left knee; Translations: [Pain in left knee] Onset: 3 Past or Other Problems Problem Classification Problem Date Documented Da te Episodic/Chronic Esophageal disorders (1 source) Esophageal disorders Other fractures (1 source) Collapsed vertebra, not elsewhere classified, lumbar region, initial encounter for fracture; Translations: [COLLAPSED VERT NEC LUMBAR INIT ENC] Onset: 01-31-2022 Episodic Other lower respiratory disease (4 sources) Dyspnea, unspecified; Translations: [DYSPNEA UNSPECIFIED] Onset: 05-08-2022 Episodic Results Test Name Value Interpretation Reference Range Facil ity XR pelvis 1-2Von 05-21-2023 XR pelvis 1-2V [facility] [place] [address] XRay Report Signed Patient: Joan Brown MR#: [id number] 1 : 1940 Acct:[id number] Age/Sex: 82 / F ADM Date: 05/21/23 Loc: [facility] Room: Type: [facility] Attending Dr: Magno Pichardo II, MD Copies to: Magno Pichardo MD Ordering Provider: Magno Pichardo MD Date of Service: 05/21/23 XR/XR knee LT 3V - NOT FOR ER USE: Acute pain of left knee ([id number]) XR/XR pelvis 1-2V: Acute pain of left knee ([id number]) XR/XR knee RT 4V*: Acute pain of right knee 3 views left knee plain film COMPARISON: None HISTORY: Bilateral knee pain for years ACUTE FINDINGS: No acute findings DEGENERATIVE CHANGE: Unremarkable SOFT TISSUE FINDINGS: Unremarkable JOINT EFFUSION: None POSTOP CHANGES: Left knee arthroplasty without hardware failure. BONE MINERALIZATION: Adequate XR/XR knee LT 3V - NOT FOR ER USE IMPRESSION: Uncomplicated left knee arthroplasty 4 views right knee Extensive lateral facet degeneration of patellofemoral compartments in the sunrise view. Mild lateral subluxation. No joint effusion. Odoi-[id number] contact the medial compartment degenerative change. Mild lateral compartment degeneration with chondrocalcinosis of menisci. Hemostasis clips. IMPRESSION: Extensive right patellofemoral and medial compartment degeneration. Chondrocalcinosis of menisci. Single view pelvis Extensive left hip degeneration with joint space narrowing and marginal spurring. Bony articular surfaces preserved. Unremarkable right hip joint. Right greater trochanter spurring. Benign soft tissue calcifications. Mild SI joint degeneration bilaterally. Extensive lower lumbar junk change. IMPRESSION: Extensive left hip degeneration. Impression dictated by: Richard Oliver M.D.05/21/2023 2:01 PM Dictation Location: [place] [address] Transcribed By: [facility] 05/21/23 1401 Dictated By: Richard Oliver DO 05/21/23 1356 Signed By: 05/21/23 1401 Normal [facility] Office Visiton 05-14-2023 Follow-up visit [id number] Joan Brown 1940 F Date Provider Department Center 05/14/2023 JEREMIAS JONES [facility] Family History Problem Relation Age of Onset Coronary artery disease Father Other Father Family Status - Relation Status Age at Father Level of Service:[id number] [place] OFFICE/OUTPATIENT ESTABLISHED LOW MDM 20-29 MIN Reason for Visit and Comments: Follow-up [375082] - 6 months Normal [facility] CBC AUTO DIFFon 10-31-2022 BASO # 0.1 103/ul Normal 0.0-0.1 [facility] Comment on above: Performed By: #### C BC #### [facility] [address] [address] [address] Charan Ariza Basophils/100 WBC (Bld) 1.7 % Normal 0.2-2.0 [place] Comment on above: Performed By: #### C BC #### [facility] [address] [address] [address] Charan Ariza EO # 0.3 103/ul Normal 0.0-0.7 [facility] Comment on above: Performed By: #### C BC #### [facility] [address] [place] [address] Dr. Charan Ariza Eosinophils/100 WBC (Bld) 6.0 % Normal 0.9-7.0 [facility] Comment on above: Performed By: #### C BC #### [facility] [address] [place] [address] Dr. Charan Ariza Erythrocyte distribution wid th (RBC) [Ratio] 12.5 % Normal 11.0-15.0 [facility] Comment on above: Performed By: #### C BC #### [facility] [address] [place] [address] Dr. Charan Ariza Hematocrit (Bld) [Volume fraction] 42.6 % Normal 3 6.0-48.0 [facility] Comment on above: Performed By: #### C BC #### [facility] [address] [place] [address] Dr. Charan Ariza Hemoglobin (Bld) [Mass/Vol] 13.7 g/dL Normal 12.0-16. 0 [facility] Comment on above: Performed By: #### C BC #### [facility] [address] [place] [address] Dr. Charan Ariza IG # 0.01 10e3/ul Normal 0.00-0.03 [facility] Comment on above: Performed By: #### C BC #### [facility] [address] [place] [address] Dr. Charan Ariza IG % 0.2 % Normal 0.0-0.5 [facility] Comment on above: Performed By: #### C BC #### [facility] [address] [place] [address] Dr. Charan Ariza LYMPH # 1.5 103/ul Normal 1.2-3.8 [facility] Comment on above: Performed By: #### C BC #### [facility] [address] [place] [address] Dr. Charan Ariza Lymphocytes/100 WBC (Bld) 28.9 % Normal 20.5-60.0 [facility] Comment on above: Performed By: #### C BC #### [facility] [address] [place] [address] Dr. Charan Ariza MANUAL DIFF REQ NO Normal [facility] Comment on above: Performed By: #### C BC #### [facility] [address] [place] [address] Dr. Charan Ariza MCH (RBC) [Entitic mass] 31.9 pg Normal 26.7-34.0 [facility] Comment on above: Performed By: #### C BC #### [facility] [address] [place] [address] Dr. Charan Ariza MCHC (RBC) [Mass/Vol] 32.2 g/dL Normal 29.9-35.2 [facility] Comment on above: Performed By: #### C BC #### [facility] [address] [place] [address] Dr. Charan Ariza MCV (RBC) [Entitic vol] 99.3 fL Critically high 81.0-99 .0 [facility] Comment on above: Performed By: #### C BC #### [facility] [address] [place] [address] Dr. Charan Ariza MONO # 0.4 103/ul Normal 0.3-0.8 [facility] Comment on above: Performed By: #### C BC #### [facility] [address] [place] [address] Dr. Charan Ariza Monocytes/100 WBC (Bld) 7.8 % Normal 1.7-12.0 [place] Comment on above: Performed By: #### C BC #### [facility] [address] [place] [address] Dr. Charan Ariza NEUT # 2.9 103/ul Normal 1.4-6.5 [facility] Comment on above: Performed By: #### C BC #### [facility] [address] [place] [address] Dr. Charan Ariza Neutrophils/100 WBC (Bld) 55.4 % Normal 43.0-75.0 [facility] Comment on above: Performed By: #### C BC #### [facility] [address] [place] [address] Dr. Charan Ariza Platelet mean volume (Bld) [ Entitic vol] 10.4 fL Normal 9.5-13.5 [facility] pital Comment on above: Performed By: #### C BC #### [facility] [address] [place] [address] Dr. Charan Ariza PLT 326 103/ul Normal 150-450 [facility] Comment on above: Performed By: #### C BC #### [facility] [address] [place] [address] Dr. Charan Ariza RBC 4.29 106/ul Normal 4.20-5.40 [facility] Comment on above: Performed By: #### C BC #### [facility] [address] [place] [address] Dr. Charan Ariza WBC 5.3 103/ul Normal 4.0-11.0 [facility] Comment on above: Performed By: #### C BC #### [facility] [address] [place] [address] Dr. Charan Ariza LIPID PROFILEon 10-31-2022 CHOL-HDL RATIO NORM SEE BELOW Normal [facility] Comment on above: Result Comment: 3.3 - 4.4 LOW RISK 4.4 - 7.1 AVERAGE RISK 7.1 - 11.0 MODERATE RISK >11.0 HIGH RISK Performed By: #### A LT, BMP, LIPID #### [facility] [address] [place] [address] Dr. Charan Ariza Cholesterol [Mass/Vol] 180 mg/dL Normal <=200 [facility] Comment on above: Performed By: #### A LT, BMP, LIPID #### [facility] [address] [place] [address] Dr. Charan Ariza Cholesterol in HDL [Mass/Vol] 75 mg/dL Critically high 4 0-60 [facility] Comment on above: Performed By: #### A LT, BMP, LIPID #### [facility] [address] [address] [address] Charan Ariza Cholesterol in LDL [Mass/Vol] 77.4 mg/dL Normal [facility] Comment on above: Performed By: #### A LT, BMP, LIPID #### [facility] [address] [address] [address] Charan Ariza Cholesterol.total/Cholestero l in HDL [Mass ratio] 2.4 {ratio} Normal [facility] Comment on above: Performed By: #### A LT, BMP, LIPID #### [facility] [address] [address] [address] Charan Ariza HDL NORMAL > or = 60 mg/dl - LO W CARDIOVASCULAR RISK <40 mg/dl - HIGH CARDIOVASCULAR RISK Normal [facility] Comment on above: Performed By: #### A LT, BMP, LIPID #### [facility] [address] [place] [address] Dr. Charan Ariza LDL CALC NORMAL SEE BELOW Normal [facility] Comment on above: Result Comment: <100 mg/dl OPTIMAL 100 - 129 mg/dl NEAR OR ABOVE OPTIMAL 130 - 159 mg/dl BORDERLINE HIGH 160 - 189 mg/dl HIGH >190 mg/dl VERY HIGH Performed By: #### A LT, BMP, LIPID #### [facility] [address] [address] [address] Charan Ariza Triglyceride [Mass/Vol] 138 mg/dL Normal <=150 T [facility] Comment on above: Performed By: #### A LT, BMP, LIPID #### [facility] [address] [place] [address] Dr. Charan Ariza VLDL CALC 27.6 mg/dL Normal [facility] Comment on above: Performed By: #### A LT, BMP, LIPID #### [facility] [address] [place] [address] Dr. Charan Ariza NM STRESS/REST MULTIon 10-31 NM STRESS/REST MULTI Patient: KEVIN BROWN REAGAN HayleyCortez Exam Date: 10/31/2022 : 1940 Gender:F Ordering : DR ODELL GOODSON D.O. Admission #: [id number] Family : Order #: [id number] CLICK HERE TO VIEW EXAM RADIOLOGY REPORT PROCEDURE: RADIONUCLIDE IMAGING STRESS/REST MULTI COMPARISON: NM STRESS/REST MULTI, 01/06/2020. INDICATIONS: Precordial pain TECHNIQUE: Exam Description: Rest/Stress one day protocol gated SPECT Rest Imagin.5 mCi Tc-99m Cardiolite IV on 10/31/2022 Stress Imaging 31.1 mCi Tc-99m Cardiolite IV on 10/31/2022 Exercise Protocol: 0.4 mg Lexiscan given IV Heart Rate (bpm): Rest: 65 Max: 81 PMHR: 57 Blood Pressure: Rest: 190/88 Max: 190/88 Symptoms: Rest and peak stress ECG findings were non-diagnostic and the exercise portion of the study was Non-diagnostic per attending physician Dr. Alex Goodson . For more details please see separate cardiac stress test report. FINDINGS: QUALITY OF STUDY: Excellent. PERFUSION DEFECT: None. LOCATION: N/A SIZE: N/A. SEVERITY: N/A. TYPE: N/A. WALL MOTION: LV SIZE: Normal. 50 mL. TID / TCD: None; 0.7 LVEF: Normal. Calculated EF 76%. SUMMARY: Myocardial perfusion imaging study is NORMAL. CONCLUSION: 1. Normal myocardial perfusion scan with no reversible ischemia 2. Nondiagnostic exercise test Dictated by: Joellen Fournier MD on 10/31/2022 at 14:39 Approved by: Joellen Fournier MD on 10/31/2022 at 14:41 Normal [facility] l PROF CHEM 8 (BAS METB)on Anion gap [Moles/Vol] 13.8 mmol/L Normal [facility] Comment on above: Performed By: #### A LT, BMP, LIPID #### [facility] [address], [place] [address] Dr. Charan Ariza Calcium [Mass/Vol] 9.2 mg/dL Normal 8.5-10.1 [facility] Comment on above: Performed By: #### A LT, BMP, LIPID #### [facility] Laboratory [address], [place] [address] Dr. Charan Ariza Chloride [Moles/Vol] 105 mmol/L Normal 98-107 [facility] Comment on above: Performed By: #### A LT, BMP, LIPID #### [facility] [address] [address] [address] Charan Ariza CO2 [Moles/Vol] 25.4 mmol/L Normal 21.0-32.0 [facility] Comment on above: Performed By: #### A LT, BMP, LIPID #### [facility] [address] [address] [address] Charan Ariza Creatinine [Mass/Vol] 0.95 mg/dL Normal 0.55-1.02 [facility] Comment on above: Performed By: #### A LT, BMP, LIPID #### [facility] [address] [place] [address] Dr. Charan Ariza EGFR-AF PARAGUAYAN >60 Normal >=60 [facility] Comment on above: Performed By: #### A LT, BMP, LIPID #### [facility] [address] [place] [address] Dr. Charan Ariza EGFR-NON AF PARAGUAYAN 57 mL/min/1.73m2 Critically low >=60 [facility] Comment on above: Performed By: #### A LT, BMP, LIPID #### [facility] [address] [place] [address] Dr. Charan Ariza Glucose [Mass/Vol] 93 mg/dL Normal 74-106 [facility] Comment on above: Performed By: #### A LT, BMP, LIPID #### [facility] [address] [place] [address] Dr. Charan Ariza Potassium [Moles/Vol] 4.2 mmol/L Normal 3.5-5.1 [facility] Comment on above: Performed By: #### A LT, BMP, LIPID #### [facility] [address] [place] [address] Dr. Charan Ariza Sodium [Moles/Vol] 140 mmol/L Normal 136-145 [facility] Comment on above: Performed By: #### A LT, BMP, LIPID #### [facility] [address] [place] [address] Dr. Charan Ariza Urea nitrogen [Mass/Vol] 19.0 mg/dL Critically high 7.0-18 .0 [facility] Comment on above: Performed By: #### A LT, BMP, LIPID #### [facility] [address] [address] [address] Charan Ariza Urea nitrogen/Creatinine [Mass ratio] 20.0 mg/mg Normal [facility] Comment on above: Performed By: #### A LT, BMP, LIPID #### [facility] [address] [address] [address] Charan Ariza [facility] 10-31-2022 ALT [Catalytic activity/Vol] 29 U/L Normal 14-59 [facility] Comment on above: Performed By: #### A LT, BMP, LIPID #### [facility] [address] [address] [address] Charan Ariza Office Visiton 10-11-2022 Follow-up visit [id number] MingoJoan mesa Hayley 1940 F Date Provider Department Center 10/11/2022 ODILIA SERVIN [facility] Family History Problem Relation Age of Onset Coronary artery disease Father Other Father Family Status - Relation Status Age at Father Level of Service:[address]279 [place] OFFICE/OUTPATIENT ESTABLISHED MOD [facility] 30-39 MIN Reason for Visit and Comments: Coronary Artery Disease [187] Hypertension [592062] Atrial Fibrillation [80] carotid artery stenosis [Other] Normal [facility] ECHOCARDIO M/2D COMPLETEon 1 07-08-2021 ECHOCARDIO M/2D COMPLETE Patient: JOAN BROWN. Exam Date: 05/08/2022 : 1940 Gender:F Ordering : DR JEREMIAS TERAN M.D. Admission #: [id number] Family : DR ODELL GOODSON D.O. Order #: [id number] CLICK HERE TO VIEW EXAM ECHOCARDIOGRAM REPORT PROCEDURE: CARDIO PULMONARY ECHOCARDIO M/2D COMP INDICATIONS: DENSON, H/O CABG 01/27/2020 COMPARISON: None. DESCRIPTION: COMPLETE ECHOCARDIOGRAM Real-time transthoracic echocardiography with 2D, M-mode, spectral and color flow Doppler performed. QUALITY: Technical quality was adequate. 59 148# 148/74 HR 66 LEFT VENTRICLE: Normal chamber size. Proximal septal hypertrophy (sigmoid septum). Global left ventricular systolic function is normal. The interventricular septum is abnormal in its motion as commonly seen in open heart patients. LV EF: Visual estimation of ejection fraction is 55 to 60%. DIASTOLIC: Diastolic function is indeterminate. ATRIAL SEPTUM: LEFT ATRIUM: Moderately dilated. RIGHT ATRIUM: Mildly dilated. RIGHT VENTRICLE: Normal chamber size. Normal right ventricular systolic function. TRICUSPID VALVE: Normal mobility and thickness. No stenosis with mild regurgitation. No evidence of pulmonary hypertension. RVSP 30 mmHg MITRAL VALVE: Normal mobility and thickness. No evidence of mitral valve stenosis. Trivial mitral regurgitation. AORTIC VALVE: Normal trileaflet appearance. Mildly calcified aortic valve. No evidence of aortic valve stenosis. Mild aortic regurgitation. AORTIC ROOT: Normal diameter and appearance. PULMONIC VALVE: Normal thickness and mobility. No stenosis. Trivial regurgitation. PERICARDIUM: No evidence of pericardial effusion. IVC: Collapses with inspirations. IVC is normal in size. PLEURA: CONCLUSION: 1. Ventricular systolic function is normal. LVEF is 55 to 60%. 2. The right ventricle is normal in size with normal systolic function. 3. Moderately dilated left atrium. 4. Mild aortic valve regurgitation. 5. Normal right-sided pressures. Adult Echocardiography Procedure Report Left Ventricle LVEDD (3.7 - 5.6 cm): 4.40 cm LVESD (2.2 - 4.0 cm): 2.97 cm LVPW thickness (0.5 - 1.0 cm): 0.82 cm LVOT Max Gradient: 3.45 mm[Hg] Peak Velocity (LVOT): 0.93 m/s LVOT Diameter 2.08 cm Left Ventricular Ejection Fraction: 55-60 % Left Atrium LA Volume Index (2D A2C): 78.14 ml, 79.32 ml Left Atrium Systolic Dimension: 4.39 cm Mitral Valve MV E to A Ratio: 0.84 Mitral Valve A-Wave Peak Velocity: 1.02 m/s Mitral Valve E-Wave Peak Velocity: 0.85 m/s Right Ventricle RV Internal Diastolic Dimension: 3.44 cm Aorta AO Root Diam: 3.04 cm Ascending Ao Diam: 2.34 cm Aortic Valve AoV Area (Peak Hernan): 2.07 cm2, 2.07 cm2 Peak Velocity(Antegrade Flow): 1.52 m/s Peak Gradient(Antegrade Flow): 9.20 mm[Hg] Tricuspid Valve Peak Velocity (Regurgitant Flow): 2.38 m/s, 2.58 m/s Peak Velocity: 0.64 m/s Pulmonic Valve Peak Velocity: 0.83 m/s Peak Gradient: 2.75 mm[Hg] Right Atrium Dictated by: Jeremias Teran M.D. on 05/08/2022 at 18:20 Approved by: Jeremias Teran M.D. on 05/08/2022 at 18:26 Normal [facility] XR LSPINE 2_3 VIEWSon 2021 XR LSPINE 2_3 VIEWS EXAMINATION: XR LSPI NE 2_3 VIEWS HISTORY: Lumbosacral spondylosis with radiculopathy , chronic low back pain COMPARISON: No relevant comparison available. FINDINGS: BONES: Mild compression fracture involving superior endplate of L2 without increased underlying trabecular density. Mild left convex curvature lumbar spine. Mild grade 1 retrolisthesis of T12 on L1, L1 on 2, L2 on 3. Mild grade 1 anterior listhesis of L3 on 4, L4 on L5, L5 on S1. Marked degenerative facet arthropathy L2-L3 through L5-S1. Bone encroachment on the L2-L3 and L5-S1 neural foramen. DISC SPACES: Moderate narrowing T12-L1, L1-L2. Mild narrowing at remaining levels. PARASPINOUS: Negative. No paraspinous abnormality is seen. OTHER: Negative. IMPRESSION: 1. L2 mild compression fractures suspected to be chronic. 2. Multilevel moderate degenerative disc disease and marked degenerative facet arthropathy. Consider MRI for further evaluation. Electronically authenticated by: TARIK MONROE Date: 2022-01-25 17:[address] [facility] CHEST AND LATERALon 03-20-20 21 CHEST AND LATERAL [facility] Department of Radiology [address] [place] [address] Patient Name: JOAN BROWN : 1940 Sex: F Age: Race: White Pt. Location: Patient Status: D Ordered Date: 03/20/2021 3:00:00 PM Completed Date: 03/20/2021 03:07 PM Requesting Provider: MANAS BOYD Attending Provider: MANAS BOYD Report Copy To: ODELL GOODSON Signs & Symptoms: R07.9 Chest pain, unspecified I10 History: Comments: evaluate Exam: CHEST AND LATERAL CHEST AND LATERAL 03/20/2021 3:07 PM CLINICAL INDICATIONS: R07.9 Chest pain, unspecified I10 TECHNOLOGIST COMMENTS: left sided chest pain on and off history of hypertension QUESTION FOR THE RADIOLOGIST: evaluate PROTOCOL: AP(PA) and Lateral views were obtained. COMPARISON: 02/04/2020 FINDINGS: Interval improvement. Resolution of the left pleural effusion pleural-parenchymal process. Calcification is appreciated in both apices, chronic finding. No concerning infiltrate. No pneumothorax, pleural effusion or free air beneath the diaphragm. Appearance of the cardiac silhouette and mediastinum is also improved IMPRESSION: Interval improvement as detailed above Electronically signed: Lashonda Romero. Transcribed by: [email or web address], User Resident: Electronically Signed by: LASHONDA ROMERO @ 03/21/2021 09:38 AM Normal [facility] Comment on above: Order Comment: evalu ate Vital Signs Date Time Vital Sign Value Performing Clinician Facility 06-06-2023 11:30-0500 Body height 147.32 cm Odell Goodson Other [facility] Other 06-06-2023 11:30-0500 Body mass index (BMI) [Ratio] 29.88 kg/m2 Odell Goodson Other [facility] Other 06-06-2023 11:30-0500 Body temperature 97.3 [degF] Odell Ball Other [facility] Other 06-06-2023 11:30-0500 Body weight 64.86 kg Odell Ball Other [facility] Other 06-06-2023 11:30-0500 Diastolic blood pressure 81 mm[Hg] Odell Ball Other [facility] Other 06-06-2023 11:30-0500 Respiratory rate 16 /min Odell Ball Other [facility] Other 06-06-2023 11:30-0500 Systolic blood pressure 138 mm[Hg] Odell Ball Other [facility] Other 05-21-2023 10:30-0500 Body height 147.32 cm [facility] Other [facility] Other 05-21-2023 10:30-0500 Body mass index (BMI) [Ratio] 31.14 kg/m2 Magno Marino II Other [facility] Other 05-21-2023 10:30-0500 Body weight 67.59 kg Magno Thicket II Other [facility] Other 05-20-2023 13:30-0500 Body height 147.32 cm Odell Ball Other [facility] Other 05-20-2023 13:30-0500 Body mass index (BMI) [Ratio] 31.64 kg/m2 Odell Ball Other [facility] Other 05-20-2023 13:30-0500 Body weight 68.68 kg Odell Ball Other [facility] Other 05-20-2023 13:30-0500 Diastolic blood pressure 77 mm[Hg] Odell Ball Other [facility] Other 05-20-2023 13:30-0500 Respiratory rate 12 /min Odell Ball Other [facility] Other 05-20-2023 13:30-0500 Systolic blood pressure 158 mm[Hg] Odell Ball Other [facility] Other 10-22-2022 15:00-0400 Body height 147.32 cm Odell Ball Other [facility] Other 10-22-2022 15:00-0400 Body mass index (BMI) [Ratio] 31.47 kg/m2 Odell Ball Other [facility] Other 10-22-2022 15:00-0400 Body weight 68.31 kg Odell Ball Other [facility] Other 10-22-2022 15:00-0400 Diastolic blood pressure 81 mm[Hg] Odell Ball Other [facility] Other 10-22-2022 15:00-0400 Respiratory rate 12 /min Odell Ball Other [facility] Other 10-22-2022 15:00-0400 Systolic blood pressure 150 mm[Hg] Odell Ball Other [facility] Other 07-24-2022 16:00-0500 Body height 147.32 cm Odell Ball Other [facility] Other 07-24-2022 16:00-0500 Body mass index (BMI) [Ratio] 31.81 kg/m2 Odell Ball Other [facility] Other 07-24-2022 16:00-0500 Body temperature 97 [degF] Odell Goodson Other [facility] Other 07-24-2022 16:00-0500 Body weight 69.04 kg Odell Goodson Other [facility] Other Encounters Encounter Date Encounter Type Care Provider Facility Start: 06-06-2023 End: 06-06-2023 ambulatory Odell Goodson Other [facility] Other Start: 06-06-2023 Office outpatient visit 15 minutes Odell Goodson [facility] Start: 05-26-2023 End: 05-26-2023 ambulatory Odell Goodson Other [facility] Other Start: 05-26-2023 Office outpatient visit 15 minutes Odell Goodson [facility] Start: 05-26-2023 Telephone encounter Odell WESLEY [facility] Start: 05-21-2023 Office outpatient ne w 45 minutes Magno Pichardo II [facility] Start: 05-21-2023 End: 05-21-2023 ambulatory Magno Pichardo II [place] [facility] Other Start: 05-20-2023 End: 05-20-2023 ambulatory Odell Goodson Other [facility] Other Start: 05-20-2023 Office outpatient visit 25 minutes Odell Hamzah [facility] Start: 05-20-2023 Telephone encounter Odell WESLEY [facility] Start: 05-14-2023 End: 05-14-2023 ambulatory [facility] Start: 11-29-[address] ODELL GOODSON Facili ty:[facility] Start: 11-19-2022 End: 11-19-2022 ambulatory NARENDRANATH LAKSHMIPATHY . Facility:[facility] Start: 11-05-2022 End: 11-06-2022 ambulatory NARENDRANATH LAKSHMIPATHY . Facility:[facility] Start: 10-31-2022 End: 11-01-[address] ODELL GOODSON Facility:[facility] Start: 10-22-2022 End: 10-22-2022 ambulatory Odell Goodson Other [facility] Other Start: 10-22-2022 Patient encounter procedure Odell Goodson [facility] Start: 10-11-2022 End: 10-11-2022 ambulatory [facility] Start: 10-08-2022 End: 10-08-2022 ambulatory Odell Goodson Other [facility] Other Start: 10-08-2022 Office outpatient visit 15 minutes Odell Goodson [facility] Start: 07-24-2022 End: 07-24-2022 ambulatory Odell Goodson Other [facility] Other Start: 07-24-2022 Office outpatient visit 25 minutes Odell Goodson [facility] Start: 07-12-2022 Patient encounter status Odell Goodosn Other [facility] Other Start: 05-08-2022 End: 05-09-2022 ambulatory JEREMIAS TERAN Facility:[facility] Start: 02-04-2022 End: 03-20-[address] ODELL GOODSON Facility:[facility] Start: 01-25-2022 End: 01-26-[address] ODELL GOODSON Facility:[facility] Immunizations Immunization Date Immunization Notes Care Provider Jackie gill 04-30-2023 Flu Shot - Documentation Purposes Only Odell Goodson Other [facility] Other 04-23-2022 influenza, high dose seasonal, preservative-free Odell Goodson Other [facility] Other 04-23-2022 influenza virus vaccine, split virus (incl. purified surface antigen) Odell Goodson Other [facility] Other 04-05-2021 COVID-19 Vaccine Pfi zer - Documentation Purposes Only Odell Goodson Other [facility] Other 03-26-2021 influenza virus vaccine, split virus (incl. purified surface antigen) Odell Goodson Other [facility] Other 08-16-2020 COVID-19 Vaccine Pfi zer - Documentation Purposes Only Odell Goodson Other [facility] Other 07-26-2020 COVID-19 Vaccine Moderna - Documentation Purposes Only Odell Goodson Other [facility] Other 07-26-2020 COVID-19 Vaccine Pfi zer - Documentation Purposes Only Odell Goodson Other [facility] Other 03-16-2020 influenza virus vaccine, split virus (incl. purified surface antigen) Odell Goodson Other [facility] Other 04-16-2019 influenza virus vaccine, split virus (incl. purified surface antigen) Odell Goodson Other [facility] Other 04-20-2018 influenza virus vaccine, split virus (incl. purified surface antigen) Odell Goodson Other [facility] Other 05-21-2017 influenza virus vaccine, split virus (incl. purified surface antigen) Odell Goodson Other [facility] Other 04-23-2016 influenza virus vaccine, split virus (incl. purified surface antigen) Odell Goodson Other [facility] Other 05-11-2015 pneumococcal conjuga te vaccine, 13 valent Odell Goodson Other [facility] Other 04-27-2015 tetanus and diphther ia toxoids, adsorbed, preservative free, for adult use (5 Lf of tetanus toxoid and 2 Lf of diphtheria toxoid) Odell Goodson Other [facility] Other 04-12-2015 pneumococcal polysaccharide vaccine, 23 valent Odell Goodson Other [facility] Other 04-08-2014 tetanus and diphther ia toxoids, adsorbed, preservative free, for adult use (5 Lf of tetanus toxoid and 2 Lf of diphtheria toxoid) Odell Goodson Other [facility] Other 05-10-2013 tetanus and diphther ia toxoids, adsorbed, preservative free, for adult use (5 Lf of tetanus toxoid and 2 Lf of diphtheria toxoid) Odell Goodson Other [facility] Other 03-04-2012 tetanus and diphther ia toxoids, adsorbed, preservative free, for adult use (5 Lf of tetanus toxoid and 2 Lf of diphtheria toxoid) Odell Goodson Other [facility] Other 05-11-2008 pneumococcal polysaccharide vaccine, 23 valent Odell Goodson Other [facility] Other Payers Date Payer Category Payer Self-pay 1957 Medicare [id number] 2.1 [id number] 1957 Private Health Insurance [facility] [id number] 1940 Unknown [id number] 2.16.84 [id number] 1940 Unknown [id number] 2.16.84 [id number] 1940 Unknown [id number] 2.16.84 [id number] 1940 Unknown [id number] 2.16.84 [id number] 1940 Unknown [id number] 2.16.84 [id number] 1940 Unknown [id number] 2.16.84 [id number] 1940 Unknown [id number] 2.16.84 [id number] Unknown [id number] 2.16.8 [id number] Social History Date Type Detail Facility Sex Assigned At [facility] Other Clinical Notes 07-24-2022 to 06-06-2023 Note Date & Type Note Facility 06-06-2023 Evaluation note Encounter Date Diagnosis Assessment Notes May, Acute bronchitis due to other specified organisms (ICD-10 - J20.8) Instructed to use Robitussin or Mucinex for cough, saline or Flonase NS for congestion, Tylenol for pain and fever. May, Hoarse voice quality (ICD-10 - R49.0) Saline or Flonase NS. Push fluids and rest voice May, Nasal folliculitis (ICD-10 - L73.9) Cleanse w/ soap and water. Mupirocin bid [facility] Other 11-27-2023 Evaluation note* Encounter Date Diagnosis Assessment Notes Treatment Notes Treatment Clinical Notes Apr, Acute non-recurrent maxillary sinusitis (ICD-10 - J01.00) Instructed to use Robitussin or Mucinex for cough, saline or Flonase NS for congestion, Tylenol for pain and fever. Apr, ASHD (arteriosclerotic heart disease) (ICD-10 - I25.10) This patient is stable without activity related CP, dyspnea or lightheadedness. They are instructed to continue exercise and AHA diet plan. Continue secondary prevention measures. [facility] Other 11-22-2023 Evaluation note* Encounter Date Diagnosis Assessment Notes Treatment Notes Treatment Clinical Notes Apr, Acute pain of left knee (ICD-10 - M25.562) Apr, Primary osteoarthritis of right knee (ICD-10 - M17.11) Apr, Primary osteoarthritis of left hip (ICD-10 - M16.12) Apr, History of total left knee replacement (ICD-10 - Z96.652) Apr, Other In regards to t he left total knee pain, I do not feel that this pain is actually stemming from the knee. I explained to the patient that her x-rays demonstrate advanced degenerative osteoarthritic changes in the left hip and I think that this pain in the left knee is actually referred pain from her left hip. As a result, I recommended that we do an intra-articular injection to the left hip joint. Working with Dr. Olson's office and or her pain management office in [place] to get that left hip injected with steroid medication. I will plan to see her back 2 weeks after that injection to see how she is feeling. In regards to the right knee arthritis, she does have significant advanced degenerative changes on x-ray which we discussed today. We discussed further conservative treatment including anti-inflammatories but she does not want to do those given her heart history. Did recommend continuing her Voltaren gel but increasing her dosage to 4-5 times a day. Recommended increasing her Tylenol dosage up to 3000 mg a day. Also recommended a right knee intra-articular steroid injection. After consent was obtained, the right knee was injected with 3cc Kenalog and 7cc bupivicaine using sterile technique. Patient tolerated the injection well. I will check back with her when I see her after her left hip to see how her right knee is doing. L TKA by [employer] in 2013 with [employer] components [facility] Other 11-21-2023 Evaluation note* Encounter Date Diagnosis Assessment Notes Treatment Notes Treatment Clinical Notes Apr, ASHD (arteriosclerotic heart disease) (ICD-10 - I25.10) This patient is stable without activity related CP, dyspnea or lightheadedness. They are instructed to continue exercise and AHA diet plan. Continue secondary prevention measures. Apr, Primary hypertension (ICD-10 - I10) This patient is instructed to consume a healthy, low-fat, low-salt diet. They are also encouraged to continue exercise to achieve/maintain a normal BMI. Apr, Paroxysmal atrial fibrillation (ICD-10 - I48.0) This patient is in NSR or rate controlled. This patient is anticoagulated to prevent thromboembolic events. They are maintaining regular scheduled appts with their rn baby. Apr, Generalized anxiety disorder (ICD-10 - F41.1) Healthy diet and exercise. Keep active No change in medical treatment Apr, Hyperlipidemia type II (ICD-10 - E78.01) Instructed on diet and exercise with continued statin therapy.Discussed the beneficial effects of lowering cholesterol in reducing the risk for cerebrovascular and cardiovascular disease. Apr, Primary osteoarthritis of both knees (ICD-10 - M17.0) Long discussion concerning options. Many modalities tried and failed She has appt w/ Orthopedics to discuss options Apr, Bilateral carotid bruits (ICD-10 - R09.89) Carotid US: 50-60% B/L 2018 Carotid US: < 50% 08/2021 < 50% narrowing Continue ASA and Statin therapy. [facility] Other 11-15-2023 [facility] Cardiology - [facility] Subjective Joan Brown is a 82 y.o. year old female patient being seen for Follow-up (6 months) Patient Active Problem List Diagnosis Coronary artery disease involving [place] coronary artery of [place] heart without angina pectoris Essential hypertension History of coronary artery bypass graft PAF (paroxysmal atrial fibrillation) (CMS/HCC) Carotid artery stenosis, asymptomatic, bilateral Renal artery stenosis (CMS/HCC) Chronic systolic heart failure (CMS/HCC) Chest pain Generalized anxiety disorder Aortic valve disorder Mitral valve disorder Obesity Preoperative evaluation to rule out surgical contraindication Syncope and collapse Upper respiratory infection Atherosclerosis of renal artery (CMS/HCC) Raynaud's disease Benign essential hypertension Hypertensive disorder Blepharitis of upper and lower eyelids of both eyes Dry eyes PCO (posterior capsular opacification), bilateral Family History Problem Relation Name Age of Onset Coronary artery disease Father Other (parkinsons) Father Social History Tobacco Use Smoking status: Never Smokeless tobacco: Never Substance Use Topics Alcohol use: Yes Comment: occasional Drug use: Never HPI She is a 82 yo woman with prior history of hypertension. She has history of PAD with a stent in the femoral artery. She has history of dysautonomia. History of CAD with cath ins 2011 showing 50% proximal LAD and 50% mid RCA stenosis. In December 2019 she was found to have severe three-vessel coronary disease and underwent bypass surgery. History of renal artery stenosis, s/p right renal artery stenting, cath in 2012 showing 20% ISR. Post CABG she developed atrial fibrillation. I checked an event monitor and that did not show any recurrence of A. fib. I stopped Eliquis therapy. Following surgery she was evaluated by cardiothoracic surgery for sternal malunion. She was recommended surgical repair but she declined surgery. Today she reports that she has been doing the same. She has no chest pain. She complains of fatigue and inability to have the energy to do things. Chronic complaints. I had previously checked thyroid function and that was normal. She has mild dyspnea on exertion, also a chronic complaint that we investigated previously by echo and stress test and were negative. No syncope. No palpitations. No claudication. Review of Systems Respiratory: Positive for shortness of breath. On exertion Musculoskeletal: Positive for joint pain. Bilateral knee Neurological: Positive for light-headedness. All other systems reviewed and are negative. Objective Visit Vitals BP 143/68 Pulse 74 Ht 1.473 m (4' 10 ) Wt 68 kg (150 lb) SpO2 97% BMI 31.35 kg/m??? Smoking Status Never BSA 1.67 m??? Physical Exam Constitutional: Appearance: She is well-developed. She is not ill-appearing. Comments: Thin appearing HENT: Head: Normocephalic and atraumatic. Nose: Nose normal. Eyes: General: No scleral icterus. Pupils: Pupils are equal, round, and reactive to light. Neck: Thyroid: No thyromegaly. Vascular: No JVD. Cardiovascular: Rate and Rhythm: Normal rate and regular rhythm. Pulses: Radial pulses are 2+ on the right side and 2+ on the left side. Dorsalis pedis pulses are 2+ on the right side and 2+ on the left side. Heart sounds: Normal heart sounds. No murmur heard. No friction rub. No gallop. Pulmonary: Effort: Pulmonary effort is normal. No respiratory distress. Breath sounds: Normal breath sounds. No wheezing or rales. Chest: Chest wall: No tenderness. Abdominal: General: Bowel sounds are normal. There is no distension. Palpations: Abdomen is soft. Tenderness: There is no abdominal tenderness. Musculoskeletal: General: No swelling. Cervical back: Neck supple. Skin: General: Skin is warm and dry. Neurological: General: No focal deficit present. Mental Status: She is alert and oriented to person, place, and time. Psychiatric: Mood and Affect: Mood normal. Behavior: Behavior is cooperative. Judgment: Judgment normal. Allergies Allergies Allergen Reactions Hydrocodone-Acetaminophen Other Oxycodone-Acetaminophen Other Rocuronium Other Medications Current Outpatient Medications: acetaminophen (Tylenol) 325 mg tablet, Take 650 mg by mouth every 6 (six) hours if needed for mild pain (1-3 pain score)., Disp: , Rfl: Alpha tocopherol (Vitamin E) 200 unit capsule, Take 200 Units by mouth in the morning., Disp: , Rfl: aspirin 81 mg EC tablet, in the morning., Disp: , Rfl: atorvastatin (Lipitor) 20 mg tablet, TAKE 1 TABLET BY MOUTH EVERY DAY, Disp: 90 tablet, Rfl: 3 cholecalciferol (Vitamin D-3) 25 MCG (1000 units) tablet, Take 1 tablet by mouth in the morning., Disp: , Rfl: loratadine 10 mg capsule, 1 capsule in the morning., Disp: , Rfl: losartan (Cozaar) 25 mg tablet, TAKE 1 TABLET BY MOUTH EVERY DAY, D (more content not included)...[facility]05-09-2023 Note CONSULTATION CONSULTATION DATE: 11/05/2022 TO: Bell Marcelo D.O. and Odell Goodson D.O. CHIEF COMPLAINT: Includes right knee. HISTORY OF PRESENT ILLNESS: Review of systems, past medical/surgical history were obtained and documented on the health questionnaire and is available upon request. She is a 72-year-old female, who reports having right knee pain for many years. Over the last one year, she has had progression of pain over her right knee joint and most recently has undergone intra-articular injection using intra-articular Gel-One injection on 08/20/2022. Despite the successful injection, she reports that she her residual pain is still effecting her quality of life, level of functioning and at times her sleep pattern, and rates it 5-7/10 pain, sharp in character, increased with activity with any kind of weight bearing maneuvers. She reports stiffness around the knee joint, which seems to get better after ambulating after short distances, but she still has pain with any weight bearing activities. She denies any change in bowel and bladder habits or new sensorimotor changes in the lower extremities. She feels most comfortable in the semi-recumbent position. EXAM: Notable for patient having no clinical radiculopathy or myelopathy involving the lower extremities. Patient did have crepitus of her right knee joint, mild edema of her right knee joint, especially in the medial aspect. Mild spasm of the gastrocnemius and hamstring muscle was noted, especially in the medial aspect. She had point tenderness mainly in the lateral aspect of her right knee joint. She had nothing to suggest ligamental laxity and she had no appreciable J -sign. IMPRESSION: Our impression is patient with chronic pain secondary to osteoarthrosis of the right knee joint. Failed conservative therapy which included physical therapy and aquatic therapy. She continues to do aquatic therapy four times a week, and has been doing so for several months. She is not a candidate for non-steroidal use. RECOMMENDATIONS: I have recommended she consider proceeding with a right genicular nerve injection under fluoroscopic guidance. Our injection will consist mainly of Marcaine at 0.25%. We will not use any corticosteroids as part of the injection. Pending her response, we will discuss with the patient what our next steps would be, such as possible rhizotomy using radiofrequency ablation of the genicular nerve on the right side. I have offered her no new medication at this time because of patient's fear of side effects. I have gone over the details of the procedure with the patient. All her questions answered. She agrees to proceed with the outlined plan. Her MJ on today's visit was 20. As part of providing excellent, safe, comprehensive care, the following was completed at our patient's visit: 1. A medication reconciliation and review to ensure accurate knowledge of current/active medications, including asking our patients to inform us about any knby-orf-uhfgacj medications or herbal remedies/nutritional supplements/alternative remedies. 2. A review to specifically ensure our patients have had annual screening for: elevated body mass index (BMI, see intake chart for exact total), tobacco use, screening for depression, and screening for unhealthy alcohol use. When screening is concerning, patients are provided with education and the specific recommendation to discuss the concerning health issue and treatment options with their primary care provider.[facility] [phone] Evaluation note * Encounter Date Diagnosis Assessment Notes Treatment Notes Treatment Clinical Notes Sep, Medicare annual wellness visit, subsequent (ICD-10 - Z00.00) Personalized health advice was given to the beneficiary including a written plan for screenings discussed and provided. Advanced care planning reviewed and/or information given as requested. Additional counseling was provided here today in regards to, [ ]. The above visit was performed by [ ], under direct supervision of [ ]. Document reviewed and amended by provider signed below. Sep, ASHD (arteriosclerotic heart disease) (ICD-10 - I25.10) This patient is stable without activity related CP, dyspnea or lightheadedness. They are instructed to continue exercise and AHA diet plan. Sep, Primary hypertension (ICD-10 - I10) This patient is instructed to consume a healthy, low-fat, low-salt diet. They are also encouraged to continue exercise to achieve/maintain a normal BMI. Sep, Paroxysmal atrial fibrillation (ICD-10 - I48.0) This patient is in NSR or rate controlled. This patient is anticoagulated to prevent thromboembolic events. They are maintaining regular scheduled appts with their rn baby. No bleeding complications Sep, Generalized anxiety disorder (ICD-10 - F41.1) Healthy diet, exercise and keep active Sep, Hyperlipidemia type II (ICD-10 - E78.01) Diet and exercise with continued statin therapy. Sep, Primary osteoarthritis of both knees (ICD-10 - M17.0) Quad exercises, ice/heat and Tylenol Orthopedics referring to Pain Management Discussed opiates: Tramadol doesn't help, declines [place] Sep, Bilateral carotid bruits (ICD-10 - R09.89) Carotid US: 50-60% B/L 2018 Carotid US: < 50% 08/2021 < 50% stenosis Continue primary prevention measures Sep, Precordial pain (ICD-10 - R07.2) Sep, High risk medication use (ICD-10 - Z79.899) CSDN Other 04-14-2023 NoteCardiovascular Medicine [facility] SUBJECTIVE Chief Complaint Patient presents with Coronary Artery Disease Hypertension Atrial Fibrillation carotid artery stenosis Joan Brown is a 81 y.o. female here for follow-up of her CAD, hx CABG, HTN, HLD, carotid stenosis. HPI She c/o dyspnea with heavier exertion, this is concerning to her as she had dyspnea with exertion prior to her bypass surgery. She does not that she is able to complete her cardiac rehab and water aerobics without issues. She c/o worsening dizziness the past few weeks, for the last week she has stopped taking atorvastatin and metoprolol and her dizziness has improved. She c/o knee pain and will be seeing a knee specialist. Denies dyspnea at rest, orthopnea, PND, LE edema, palpitations, syncope. Patient Active Problem List Diagnosis Coronary artery disease involving [place] coronary artery of [place] heart without angina pectoris Essential hypertension History of coronary artery bypass graft PAF (paroxysmal atrial fibrillation) (CMS/HCC) Carotid artery stenosis, asymptomatic, bilateral Renal artery stenosis (CMS/HCC) Chronic systolic heart failure (CMS/HCC) Chest pain Generalized anxiety disorder Aortic valve disorder Mitral valve disorder Obesity Preoperative evaluation to rule out surgical contraindication Syncope and collapse Upper respiratory infection Atherosclerosis of renal artery (CMS/HCC) Raynaud's disease Benign essential hypertension Hypertensive disorder Past Medical History: Diagnosis Date Aortic valve disorder Atrial fibrillation (CMS/HCC) Carotid artery stenosis CHF (congestive heart failure) ([facility]/HCC) Chronic kidney disease Coronary artery disease Heart valve disease Hyperlipidemia Hypertension Mitral valve disorder Renal artery stenosis (CMS/HCC) Family History Problem Relation Name Age of Onset Coronary artery disease Father Other (parkinsons) Father Social History Tobacco Use Smoking status: Never Smokeless tobacco: Never Substance Use Topics Alcohol use: Yes Comment: occasional Drug use: Never Allergies Allergen Reactions Hydrocodone-Acetaminophen Other Oxycodone-Acetaminophen Other Rocuronium Other ROS Constitutional: Positive for malaise/fatigue. Cardiovascular: Positive for dyspnea on exertion. Musculoskeletal: Positive for arthritis, back pain, joint pain, muscle weakness and myalgias. Neurological: Positive for excessive daytime sleepiness, dizziness and light-headedness. All other systems reviewed and are negative. OBJECTIVE Visit Vitals BP 136/70 (BP Location: Left arm, Patient Position: Sitting) Pulse 70 Ht 1.499 m (4' 11 ) Wt 68 kg (150 lb) SpO2 98% BMI 30.30 kg/m??? Smoking Status Never BSA 1.68 m??? Medications: Current Outpatient Medications: ALPRAZolam (Xanax) 0.25 mg tablet, Take 0.25 mg by mouth if needed in the morning, at noon, and at bedtime., Disp: , Rfl: aspirin 81 mg EC tablet, in the morning., Disp: , Rfl: atorvastatin (Lipitor) 20 mg tablet, TAKE 1 TABLET BY MOUTH EVERY DAY, Disp: 90 tablet, Rfl: 3 calcium carb-vitamin D3-vit K2 600 mg-1,000 unit-90 mcg tablet, 1 (one) time each day at the same time., Disp: , Rfl: DULoxetine (Cymbalta) [address] capsule, Take 40 mg by mouth in the morning. Do not crush or chew., Disp: , Rfl: loratadine 10 mg capsule, 1 capsule in the morning., Disp: , Rfl: losartan (Cozaar) 25 mg tablet, losartan 25 mg tablet TAKE 1 TABLET BY MOUTH EVERY DAY, Disp: , Rfl: zolpidem (Ambien) 10 mg tablet, zolpidem 10 mg tablet TAKE 1 TABLET BY MOUTH AT BEDTIME NEEDED FOR INSOMNIA, Disp: , Rfl: metoprolol succinate XL (Toprol-XL) 25 mg 24 hr tablet, Take 1 tablet (25 mg) by mouth in the morning. Do not crush or chew., Disp: 90 tablet, Rfl: 3 Physical Exam Vitals reviewed. Constitutional: Appearance: Normal appearance. She is normal weight. HENT: Head: Normocephalic and atraumatic. Right Ear: External ear normal. Left Ear: External ear normal. Eyes: Extraocular Movements: Extraocular movements intact. Conjunctiva/sclera: Conjunctivae normal. Pupils: Pupils are equal, round, and reactive to light. Neck: Vascular: No carotid bruit. Cardiovascular: Rate and Rhythm: Normal rate and regular rhythm. Pulses: Normal pulses. Heart sounds: Normal heart sounds. Pulmonary: Effort: Pulmonary effort is normal. Breath sounds: Normal breath sounds. Abdominal: General: Bowel sounds are normal. Palpations: Abdomen is soft. Musculoskeletal: Cervical back: Neck supple. Right lower leg: No edema. Left lower leg: No edema. Skin: General: Skin is warm and dry. Neurological: General: No focal deficit present. Mental Status: She is alert and oriented to person, place, and time. Psychiatric: Mood and Affect: Mood normal. Behavior: Behavior normal. Thought Content: Thought content normal. Judgment: Judgment normal. Labs: B (more content not included)...[facility]04-14-2023 NotePatient here for 6 mo follow up CAD, hyperlipidemia, hypertension, and carotid artery stenosis.. Had echo in Apr 2022. C/o dizziness, which she thinks is from atorvastatin. Review of Systems Constitutional: Positive for malaise/fatigue. Cardiovascular: Positive for dyspnea on exertion. Musculoskeletal: Positive for arthritis, back pain, joint pain, muscle weakness and myalgias. Neurological: Positive for excessive daytime sleepiness, dizziness and light-headedness. All other systems reviewed and are negative.[facility] 10-08-2022 Evaluation note* Encounter Date Diagnosis Assessment Notes Treatment Notes Treatment Clinical Notes Sep, Acute bronchitis due to other specified organisms (ICD-10 - J20.8) Instructed to use Robitussin or Mucinex for cough, saline or Flonase NS for congestion, Tylenol for pain and fever. Sep, ASHD (arteriosclerotic heart disease) (ICD-10 - I25.10) Avoid use of decongestants w/ OTC medications CSDN Other 01-25-2023 Evaluation note* Encounter Date Diagnosis Assessment Notes Treatment Notes Treatment Clinical Notes Jun, ASHD (arteriosclerot ic heart disease) (ICD-10 - I25.10) This patient is stable without activity related CP, dyspnea or lightheadedness. They are instructed to continue exercise and AHA diet plan. Jun, Primary hypertension (ICD-10 - I10) This patient is instructed to consume a healthy, low-fat, low-salt diet. They are also encouraged to continue exercise to achieve/maintain a normal BMI. Jun, Hyperlipidemia type II (ICD-10 - E78.01) Jun, Obesity (BMI 30-39.9 ) (ICD-10 - E66.9) This patient has been instructed on a low-fat, high-fiber diet. They are instructed to reduce calories, portion sizes and snacks. It is recommended that they exercise for 30 minutes, 3-5 times weekly. Jun, Generalized anxiety disorder (ICD-10 - F41.1) Healthy diet and exercise. Keep active and social. Continue Cymbalta Jun, Gastroesophageal reflux disease with esophagitis without hemorrhage (ICD-10 - K21.00) Diet instructions: Smaller portions, avoid eating and laying flat, avoid eating or drinking prior to bedtime. Weight loss. Jun, Lumbosacral spondylosis with radiculopathy (ICD-10 - M47.27) The patient is instructed to avoid bending, twisting or lifting. They are to use intermittent heat and ice as needed. They may schedule a massage or gentle manipulation. They may safely use Tylenol as needed. Jun, Primary osteoarthrit is of right knee (ICD-10 - M17.11) Quad exercises, ice/heat and Voltaren Gel. Discussed use of Tylenol, Glucosamine and IA injections. CSDN Other Evaluation noteNo InformationNortAudibase Other History general Narrative - Reported* Type Description Date Medical History arteriosclerotic heart disease Medical History primary osteoarthritis of right knee Medical History hyperlipidemia type 2 Medical History primary insomnia Medical History myalgia due to statin Medical History menopause Medical History carotid stenosis, left Medical History obesity Medical History lumbosacral spondylosis with rad iculopathy Medical History paroxysmal atrial fibrillation Medical History essential hypertension Medical History GERD Medical History generalized anxiety disorder Surgical History CABG, 1 arterial and 3 venous Surgical History Surgical History tubal ligation Surgical History tonsillectomy Surgical History left bunionectomy Surgical History left myringotomy Surgical History EGD Surgical History cholecystectomy Surgical History left TKA CSDN Other History general Narrative - Reported* Type Description Date Medical History arteriosclerotic heart disease Medical History primary osteoarthritis of right knee Medical History hyperlipidemia type 2 Medical History primary insomnia Medical History myalgia due to statin Medical History menopause Medical History carotid stenosis, left Medical History obesity Medical History lumbosacral spondylosis with rad iculopathy Medical History paroxysmal atrial fibrillation Medical History essential hypertension Medical History GERD Medical History generalized anxiety disorder Surgical History CABG, 1 arterial and 3 venous Surgical History Surgical History tubal ligation Surgical History tonsillectomy Surgical History left bunionectomy Surgical History left myringotomy Surgical History EGD Surgical History cholecystectomy Surgical History left TKA Hospitalization History see surgical history CSDN Other Summary Purpose Family History No Family History Records FoundNo Family History Records FoundNo Family History Records FoundNo Family History Records Found Advance Directives No Advanced Directives Records FoundNo Advanced Directives Records FoundNo Advanced Directives Records FoundNo Advanced Directives Records Found Additional Source Comments INFORMATION SOURCE (unrecogn ized section and content) DATE CREATED AUTHOR 03/21/[address] [facility] DATE CREATED AUTHOR AUTHOR'S ORGANIZ ATION [facility]2022 [facility] DATE CREATED AUTHOR AUTHOR'S ORGANIZ ATION 05/16/2023 [facility] DATE CREATED AUTHOR AUTHOR'S ORGANIZ ATION 05/27/2023 [facility] REASON FOR VISIT (unrecogniz ed section and content) [phone] coldATB wantedN P LT KNEE PAIN UPDATE XRAYS PER [facility], SCHED AUTH APPROVED PREVIOUS TKA4 month Follow upPT order3 month Follow upSinus Infection/Cough- COVID Negative [phone] FOR RECORDS PERTAINING TO PATIENTS WHO ARE OR HAVE BEEN ENROLLED IN A CHEMICAL DEPENDENCY/SUBSTANCEABUSE PROGRAM, SOME INFORMATION MAY BE OMITTED. This clinical summary was aggregated from multiple sources. Caution should be exercised in using it in the provision of clinical care. This summary normalizes information from multiple sources, and as a consequence, information in this document may materially change the coding, format and clinical context of patient data. In addition, data may be omitted in some cases. CLINICAL DECISIONS SHOULD BE BASED ON THE PRIMARY CLINICAL RECORDS. [employer] provides no warranty or guarantee of the accuracy or completeness of information in this document.
== END 2023-05-29 10:42 | disposition home or self-care (01) ==
LOC: RAD 10:44
PROVIDERS: PCP Internal Medicine
DX: M25.552 Pain in left hip (principal); M16.12 Unilateral primary osteoarthritis, left hip
CPT/HCPCS: 73502

== ENCOUNTER 2023-06-03 09:50 | Day surgery (SDC) | payer MEDICARE, SELFPAY ==
[2023-06-03 10:36] VITALS: BP 161/85; PULSE 68; RESP 16; TEMP 36.9; O2SAT 100
[2023-06-03 11:34] VITALS: BP 193/81; PULSE 65; RESP 18; O2SAT 93
[2023-06-03 11:36] VITALS: BP 210/81; PULSE 62; RESP 18; O2SAT 96
[2023-06-03] MEDS: IOHEXOL 240 MG/ML - 10 ML VIAL 12 MG INJ (11:37)
[2023-06-03] MEDS: BUPIVACAINE HCL 0.25% PF 25 MG/10 ML VIAL 4 ML INJ (11:37)
[2023-06-03] MEDS: METHYLPREDNISOLONE ACETATE 40 MG/ML VIAL INJ (11:38)
--- NOTE | 2023-06-03 11:42 | P.ON_ITS ---
Date of procedure: 06/03/23 Pre-op diagnosis: Left Hip Osteoarthritis Post-op diagnosis: same as pre-op Procedure: Procedure: Left Hip joint injection Pre & postoperative diagnosis: pain secondary to osteoarthritis. Immediate complications none. Anesthesia: 2% lidocaine plain for skin wheal. After informed consent was obtained, patient brought to the OR placed in the supine position. Skin overlying the area was prepped and draped using betadine. 25-gauge 1/2 inch needle was used for skin wheal over the medial aspect of the joint identified under fluoroscopy. Omnipaque dye was used to confirm needle tip placement within the hip joint space 0.5 mL use of the injection. Subse quently Depomedrol 40mg and Marcaine 0.25% 4ml was injected into the space. No indication of intravascular or intraneuronal needle tip placement or injection was noted post procedure. The needle was removed, patient transferred to Recovery room in stable condition to discharged home after meeting criteria. Anesthesia: Local Surgeon: Jigna Gonzalez Condition: stable
== END 2023-06-03 11:45 | disposition home or self-care (01) ==
LOC: SURGOUT 09:50
PROVIDERS: PCP Internal Medicine; Visit Provider Anesthesiology Pain Medicine
DX: M16.12 Unilateral primary osteoarthritis, left hip (principal)
CPT/HCPCS: 20610; 77002; J1030; Q9966

== ENCOUNTER 2023-06-04 12:59 | Outpatient (RCR) | payer MEDICARE, SELFPAY | END 2023-06-29 09:00 | disposition home or self-care (01) | LOC: PT 12:59 | PROVIDERS: PCP Internal Medicine; Visit Provider Internal Medicine | DX: M47.9 Spondylosis, unspecified (principal); M16.9 Osteoarthritis of hip, unspecified; M17.9 Osteoarthritis of knee, unspecified | CPT/HCPCS: 97110; 97112; 97162 ==

== ENCOUNTER 2023-07-08 14:13 | Outpatient (OUT) | payer MEDICARE, SELFPAY ==
--- NOTE | 2023-07-08 | CONS_ITS ---
CONSULTATION DATE: 07/08/2023 TO: Dr. Goodson HISTORY: Patient returns today complaining of pain in her knees bilaterally. On today?s visit, she complains of right knee pain. In the past, she has consistently complained of mainly pain in her left knee. At this point, she rates her pain as being 5/10, deep aching in character, increased with activities such as standing, walking and performing transitioning maneuvers. She feels most comfortable in the semi-recumbent position. Denies any change in bowel and bladder habits or new sensorimotor changes in the lower extremities. CURRENT MEDICATION LIST: Includes Tylenol p.r.n. EXAMINATION: Notable for patient having no clinical radiculopathy or myelopathy involving the lower extremities. Patient did have significant crepitus involving the right knee joint, as well as soft tissue tenderness and mild edema. Her left knee had been notable for a well healed scar, as she had undergone a left total knee arthroplasty in the past. Despite this, she still has significant left sided knee pain. IMPRESSION: Our impression is patient appears to have pain secondary to osteoarthrosis of the right knee. RECOMMENDATIONS: At this point, I recommended that she follow up with the orthopedic surgeon for considerations for possible surgical correction of her right knee pain. In the interim, I have asked her to consider using tramadol for her pain symptoms. She reports she does have a prescription at home, but has been reluctant to use it. I have encouraged her to consider trialing it. If she needs to be prescribed this in the future, we will be happy to do so moving forward; otherwise, I have informed the patient to return to our office on an as needed basis, pending her surgical consultation. As part of providing excellent, safe, comprehensive care, the following was completed at our patient's visit: 1. A medication reconciliation and review to ensure accurate knowledge of current/active medications, including asking our patients to inform us about any [id number] medications or herbal remedies/nutritional supplements/alternative remedies. 2. A review to specifically ensure our patients have had annual screening for: elevated body mass index (BMI, see intake chart for exact total), tobacco use, screening for depression, and screening for unhealthy alcohol use. When screening is concerning, patients are provided with education and the specific recommendation to discuss the concerning health issue and treatment options with their primary care provider. [facility]
== END 2023-07-08 14:14 | disposition home or self-care (01) ==
LOC: PM 14:13
PROVIDERS: PCP Internal Medicine; Visit Provider Anesthesiology Pain Medicine
DX: M25.561 Pain in right knee (principal); M17.11 Unilateral primary osteoarthritis, right knee
CPT/HCPCS: G0463

== ENCOUNTER 2023-08-01 11:57 | Outpatient (OUT) | payer MEDICARE, SELFPAY ==
--- OUTSIDE RECORDS SUMMARY | 2023-08-01 12:03 | XMS_ITS | CCD ---
Author Name Unknown Address [address] [place] [address] Organization [facility] Care Team Providers [employer] Name Role Phone Hamzah Odell Unavailable HAMZAH, DR RODRIGUEZ Admitting Unavailable HAMZAH, DR RODRIGUEZ Attending Unavailable HAMZAH, DR RODRIGUEZ Primary Care Unavailable LAKSHMIPATHY ., TANG Consulting Helen vailable HAMZAH, DR RODRIGUEZ Primary Care Unavailable LAKSHMIPATHY ., TANG Admitting Helen vailable LAKSHMIPATHY ., TANG Attending Helen vailable LAKSHMIPATHY ., TANG Admitting Helen vailable HAMZAH, DR RODRIGUEZ Primary Care Unavailable LAKSHMIPATHY ., TANG Attending Helen vailable LAKSHMIPATHY ., TANG Consulting Helen vailable HAMZAH, DR RODRIGUEZ Primary Care Unavailable HALKER .RAFAELA Admitting Unavailable HALDON .RAFAELA Attending Unavailable JEREMIAS TERAN Attending Unavailable JEREMIAS TERAN Consulting Unavailable JEREMIAS TERAN Admitting Unavailable HAMZAH, DR RODRIGUEZ Primary Care Unavailable HAMZAH, DR RODRIGUEZ Admitting Unavailable HAMZAH, DR RODRIGUEZ Attending Unavailable HAMZAH, DR RODRIGUEZ Consulting Unavailable HAMZAH, DR RODRIGUEZ Primary Care Unavailable MABEL, DR TARIK Gee Consulting Unavailable HAMZAH, DR RODRIGUEZ Admitting Unavailable HAMZAH, DR RODRIGUEZ Attending Unavailable HAMZAH, DR RODRIGUEZ Consulting Unavailable HAMZAH, DR RODRIGUEZ Primary Care Unavailable PEORIA, DR JOELLEN Ontiveros Consulting Unavailable JEREMIAS TERAN Consulting Unavailable ODILIA ALCAZAR Attending Unavailable JEREMIAS TERAN Attending Unavailable Magno Pichardo II Unavailable Magno Pichardo II Admitting UnavailMagno Blevins II Attending UnavailMagno Blevins II Attending Unavailabl e Odell Goodson Primary Care Unavailable Magno Pichardo II Admitting UnavailNBA Gonzalez Attending Unavailable NBA MARCELO Referring Unavailable NBA MARCELO Referring Unavailable Allergies Allergy Classification Reported Allergen(s) Allergy Type Date of Onset Reaction(s) Facility (14 sources) Acetaminophen / HYDROcodone; Translations: [Vicodin] Drug Allergy 03-04-20 12 Unknown [facility] Repository (12 sources) Acetaminophen / oxyCODONE Drug Allergy Unknown [facility] Other (12 sources) Ciprofloxacin Drug Allergy Unknown [facility] Other (13 sources) Rocuronium; Translations: [ROCURONIUM] Drug Allergy 06-17-20 14 Unknown [facility] Repository (12 sources) Sulfamethoxazole / Trimethoprim Drug Allergy Unknown [facility] Other (2 sources) Acetaminophen / oxyCODONE Drug Allergy 03-04-20 12 [facility] Repository (2 sources) Rocuronium Drug Allergy 03-17-20 12 [facility] Repository (1 source) Acetaminophen / HYDROcodone; Translations: [HYDROCODONE-ACETAM INOPHEN] Drug Allergy 06-17-20 14 [facility] Repository (1 source) Acetaminophen / oxyCODONE; Translations: [OXYCODONE-ACETAMIN OPHEN] Drug Allergy 06-17-20 14 [facility] Repository (9 sources) Vicodin *ANALGESICS - OPIOID* Propensity to adverse reactions Unknown [facility] Other Medications Current Medications Medication Drug Class(es) Dates Sig (Normalized) Sig (Original) acetaminophen 500 mg oral capsule (12 sources) take 1 capsule by mouth every six hours Acetaminophen 500 MG 1 capsule as needed Orally every 6 hrs Active ALPRAZolam 0.25 mg oral tablet (12 sources) Benzodiazepine take 1 tablet by mouth every twelve hours ALPRAZolam 0.25 MG 1 tablet Orally Twice a day prn Active amoxicillin 875 mg oral tablet (3 sources) Penicillin-class Antibacterial Start: 06-06-2023 take 1 tablet by mouth every twelve hours Amoxicillin 875 MG 1 tablet Orally Twice a day for 5 days May, Active aspirin 81 mg delayed release oral tablet (12 sources) Platelet Aggregation Inhibitor, Nonsteroidal Anti-inflammatory Drug take 1 tablet by mouth every twenty-four hours Aspirin 81 81 MG 1 tablet Orally Once a day Active take 1 tablet by mouth once joaquin y Aspirin 81 81 MG 1 tablet Orally Once a day Active atorvastatin 20 mg oral tablet (12 sources) HMG-CoA Reductase Inhibitor take 1 tablet by mouth every twenty-four hours Atorvastatin Calcium 20 MG 1 tablet Orally Once a day Active cholecalciferol 0.025 mg oral tablet (12 sources) Vitamin D take 1 tablet by mouth every twenty-four hours Vitamin D-[address] 25 MCG (1000 UT) 1 tablet Orally Once a day Active Diclofenac (7 sources) Nonsteroidal Anti-inflammatory Drug Voltaren 1 % [...] Active losartan potassium 25 mg oral tablet (12 sources) Angiotensin 2 Receptor Alexandre take 1 tablet by mouth every twenty-four hours Losartan Potassium 25 MG 1 tablet Orally Once a day Active 24 hr metoprolol succinate 50 mg extended release oral tablet (12 sources) beta-Adrenergic Alexandre take 0.5 tablet by mouth once daily Metoprolol Succinate ER 50 MG 1/2 tablet Orally Once a day Active take 1 tablet by christopher th every twenty-four hours Metoprolol Succinate ER 50 MG 1 tablet Orally Once a day Active mupirocin 0.02 mg/mg topical ointment (3 sources) RNA Synthetase Inhibitor Antibacterial Start: 06-06-2023 Mupirocin [...] Active traMADol hydrochloride 50 mg oral tablet (9 sources) Opioid Agonist Start: 05-20-2023 take 1 tablet by mouth twice daily as needed for pain traMADol HCl 50 MG 1 tablet as needed Orally twice daily as needed for pain for 30 days Apr, Active Vitamin E 100 UNIT (12 sources) Vitamin E 100 UNIT as directed Orally Active zolpidem tartrate 10 mg oral tablet (12 sources) gamma-Aminobutyric Acid-ergic Agonist Start: 10-18-2023 take 1 tablet by mouth at bedtime [...] Sig (Original) azithromycin 250 mg oral tablet (16 sources) Macrolide Antimicrobial Start: 10-08-2022 Azithromycin 250 MG as directed Orally daily for 5 days Apr, Not-Taking/PRN loratadine 10 mg oral tablet (12 sources) take 1 tablet by mouth every twenty-four hours Claritin 10 MG 1 tablet Orally Once a day Not-Taking/PRN triamcinolone acetonide 40 mg/ml injectable suspension (16 sources) Corticosteroid Start: 05-21-2023 Kenalog-40 Apr, 120 mg Start: 01-21-2023 Triamcinolone Acetonide 0.025 % 1 application Externally Once a day as needed for 14 days Dec, Active Start: 01-21-2023 Triamcinolone Acetonide 0.025 % 1 application Externally Once a day as needed for 14 days Dec, Active Problems Active Problems Problem Classification Problem Date Documented Date Episodic/Chronic Acute bronchitis (14 sources) Acute infective bronchitis; Translations: [Acute bronchitis due to other specified organisms] Episodic Allergic reactions (9 sources) Atopic dermatitis; Translations: [Atopic dermatitis, unspecified] Chronic Anxiety disorders (16 sources) Generalized anxiety disorder; Translations: [Generalized anxiety disorder] Chronic Cardiac dysrhythmias (19 sources) Paroxysmal atrial fibrillation; Translations: [Paroxysmal atrial fibrillation] Onset: 2 Chronic Congestive heart failure; nonhypertensive (2 sources) Chronic systolic (congestive) heart failure; Translations: [Chronic systolic (congestive) heart failure] Onset: 2 Chronic Coronary atherosclerosis and other heart disease (20 sources) Coronary arteriosclerosis; Translations: [Atherosclerotic heart disease of [place] coronary artery without angina pectoris] Onset: 2 Chronic Coronary atherosclerosis and other heart disease (3 sources) Presence of aortocoronary bypass graft; Translations: [PRESENCE AORTOCORONARY BYPASS GRAFT] Onset: 2 Episodic Disorders of lipid metabolism (17 sources) Familial hypercholesterolemia; Translations: [Familial hypercholesterolemia] Onset: 3 Chronic E Codes: Adverse effects of medical drugs (12 sources) Lipid-lowering drug adverse reaction; Translations: [Adverse effect of antihyperlipidemic and antiarteriosclerotic drugs, initial encounter] Episodic Esophageal disorders (12 sources) Gastro-esophageal reflux disease with esophagitis; Translations: [Gastroesophageal reflux disease with esophagitis without hemorrhage] Chronic Essential hypertension (20 sources) Essential hypertension; Translations: [Essential (primary) hypertension] Onset: 3 Chronic Inflammatory diseases of female pelvic organs (12 sources) Vulvovaginitis; Translations: [Acute vaginitis] Episodic Miscellaneous mental health disorders (12 sources) Primary insomnia; Translations: [Primary insomnia] Chronic Nonspecific chest pain (5 sources) Precordial pain; Translations: [PRECORDIAL PAIN] Onset: 3 Episodic Occlusion or stenosis of precerebral arteries (16 sources) Left carotid artery stenosis; Translations: [Occlusion and stenosis of left carotid artery] Onset: 2 Chronic Osteoarthritis (20 sources) Primary gonarthrosis, bilateral; Translations: [Bilateral primary osteoarthritis of knee] Onset: 3 Chronic Osteoporosis (3 sources) Other osteoporosis without current pathological fracture; Translations: [Osteoporosis] Onset: 4 Chronic Other aftercare (4 sources) Other long term acute care registered nurse (current) drug therapy; Translations: [OTH DETENTION CURRENT DRUG THERAPY] Onset: 3 Episodic Other circulatory disease (3 sources) Other specified symptoms and signs involving the circulatory and respiratory systems Episodic Other connective tissue disease (7 sources) History of left total knee replacement; Translations: [Presence of left artificial knee joint] Chronic Other connective tissue disease (2 sources) Presence of left artificial knee joint Chronic Other connective tissue disease (12 sources) Myalgia caused by statin; Translations: [Myalgia, unspecified site] Episodic Other nervous system disorders (1 source) Other chronic pain; Translations: [OTHER CHRONIC PAIN] Onset: 3 Chronic Other non-traumatic joint disorders (2 sources) Pain in left knee Episodic Other nutritional; endocrine; and metabolic disorders (12 sources) Body mass index 30+ - obesity; Translations: [Obesity, unspecified] Chronic Other nutritional; endocrine; and metabolic disorders (1 source) Obesity, unspecified Chronic Other skin disorders (1 source) Follicular disorder, unspecified Episodic Other upper respiratory disease (1 source) Dysphonia Episodic Other upper respiratory infections (13 sources) Acute recurrent maxillary sinusitis; Translations: [Acute maxillary sinusitis, unspecified] Episodic Residual codes; unclassified (12 sources) Menopause present; Translations: [Asymptomatic menopausal state] Episodic Spondylosis; intervertebral disc disorders; other back problems (18 sources) Lumbosacral spondylosis with radiculopathy; Translations: [Other spondylosis with radiculopathy, lumbosacral region] Onset: 2 Chronic Unclassified (1 source) Unilateral primary osteoarthritis, right knee; Translations: [Unilateral primary osteoarthritis, right knee] Onset: 4 Unclassified (1 source) Pain in left knee; [...] Results Test Name Value Interpretation Reference Range Facility A1C with Estimated Average Antoinette rao 07-23-2023 Glucose [Mass/Vol] 111 mg/dL Normal [facility] Comment on above: Order Comment: Reaso n for Exam Primary osteoarthritis of right knee;Other group home (curren Result Comment: PERF ORMED BY: [facility] [address] [place] [address] PATHOLOGIST COVERAGE SPECIALIST RN BUBBA MERIDA M.D. Performed By: #### A 1C WT eA, [id number], CUMRSA, HGB, ALB #### [facility] [address] HbA1c (Bld) [Mass fraction] 5.5 % Normal 4.3-5.6 [facility] Comment on above: Order Comment: Reaso n for Exam Primary osteoarthritis of right knee;Other long term acute care registered nurse (curren Result Comment: Incr eased risk for diabetes: 5.7 - 6.4 diabetes: >6.4 glycemic control for adults with diabetes: <7.0 Performed By: #### A 1C WTH eA, [id number], CUMRSA, HGB, ALB #### [facility] [address] Albumin Levelon 07-23-2023 Albumin [Mass/Vol] 4.1 g/dL Normal 3.5-5.7 [facility] Comment on above: Order Comment: Reaso n for Exam Primary osteoarthritis of right knee;Other group home (curren Performed By: #### A 1C WTH eA, [id number], CUMRSA, HGB, ALB #### [address] Hemoglobinon 07-23-2023 Hemoglobin (Bld) [Mass/Vol] 13.4 g/dL Normal 11.8-15.4 [facility] Comment on above: Order Comment: Reaso n for Exam Primary osteoarthritis of right knee;Other group home (curren Result Comment: PERF ORMED BY: [place] [address] PATHOLOGIST COVERAGE SPECIALIST RN BUBBA MERIDA M.D. Performed By: #### A 1C WTH eA, [id number], CUMRSA, HGB, ALB #### [address] MRSA Cultureon 07-23-2023 MRSA Culture Reason for Exam Primary osteoarthritis of right knee;Other long term acute care registered nurse (curren Nasal Reason for Exam: Primary osteoarthritis of right knee;Other group home (curren : Nasal No MRSA Isolated 2 Days PERFORMED BY: [place] [address] PATHOLOGIST COVERAGE SPECIALIST RN BUBBA MERIDA M.D. [facility] Comment on above: Performed By: #### A 1C WTH eA, [id number], CUMRSA, HGB, ALB #### [place] [id number] [facility] Vitamin D 25 Hydroxy Totalon 07-23-2023 Vitamin D 25 Hydroxy Total 45.5 ng/mL Normal 30-100 [facility] Comment on above: Order Comment: Reaso n for Exam Primary osteoarthritis of right knee;Other group home (curren Result Comment: HEATH MIN D STATUS 25(OH)VITAMIN D RANGE (ng/mL) Deficient <20 Insufficient 20 to <30 Sufficient 30 to 100 Reference: Marley MF,Joanne ZHENG, Jayjay ESPOSITO, et al. Evaluation,treatment, and prevention of vitamin D deficiency; an Endocrine Society clinical practice guideline. JCEM. 2010; 96(7):1911-30. PERFORMED BY: [place] [address] PATHOLOGIST COVERAGE SPECIALIST RN BUBBA MERIDA M.D. Performed By: #### A 1C WTH eA, [id number], CUMRSA, HGB, ALB #### [place] [id number] [facility] XR pelvis 1-2Von 05-21-2023 XR pelvis 1-2V [facility] [place] [address] [place] [address] XRay Report Signed Patient: Joan Brown MR#: [id number] 1 : 1940 Acct:[id number] Age/Sex: 82 / F ADM Date: 05/21/23 Loc: [facility] Room: Type: [facility] Attending Dr: Magno Pichardo II, MD Copies to: Magno Pichardo MD Ordering Provider: Magno Pichardo MD Date of Service: 05/21/23 XR/XR knee LT 3V - NOT FOR ER USE: Acute pain of left knee ([id number]) XR/XR pelvis 1-2V: Acute pain of left knee ([id number]) XR/XR knee RT 4V*: Acute pain of [...] view. Mild lateral subluxation. No joint effusion. [id number] contact the medial compartment degenerative change. Mild [...] Richard Oliver M.D.05/21/2023 2:01 PM Dictation Location: [place] [address] Transcribed By: [facility] 05/21/23 1401 Dictated By: Richard Oliver DO 05/21/23 1356 Signed By: 05/21/23 1401 Normal [facility] Office Visiton 05-14-2023 Follow-up visit [id number] Joan Brown 1940 F Date Provider Department Center 05/14/2023 JEREMIAS JONES KIANNA Vici Jonathon Family History Problem Relation Age of Onset Coronary artery disease Father Other Father Family Status - Relation Status Age at Father Level of Service:79630 AR OFFICE/OUTPATIENT ESTABLISHED LOW MDM 20-29 MIN Reason for Visit and Comments: Follow-up [834282] - 6 months Normal [facility] CBC AUTO DIFFon 10-31-2022 BASO # 0.1 103/ul Normal 0.0-0.1 [facility] Comment on above: Performed By: #### C BC #### [facility] [address] [place] [address] [address] Charan Ariza Basophils/100 WBC (Bld) 1.7 % Normal 0.2-2.0 [facility] Comment on above: Performed By: #### C BC #### [facility] [address] [place] [address] [address] Charan Ariza EO # 0.3 103/ul Normal 0.0-0.7 [facility] Comment on above: Performed By: #### C BC #### [facility] [address] [place] [address] Dr. Charan Ariza Eosinophils/100 WBC (Bld) 6.0 % Normal 0.9-7.0 [facility] Comment on above: Performed By: #### C BC #### [facility] [address] [place] [address] Dr. Charan Ariza Erythrocyte distribution width (RBC) [Ratio] 12.5 % Normal 11.0-15.0 [facility] Comment on above: Performed By: #### C BC #### [facility] [address] [place] [address] Dr. Charan Ariza Hematocrit (Bld) [Volume fraction] 42.6 % Normal 36.0-48.0 [facility] Comment on above: Performed By: #### C BC #### [facility] [address] [place] [address] Dr. Charan Ariza Hemoglobin (Bld) [Mass/Vol] 13.7 g/dL Normal 12.0-16.0 [facility] Comment on above: Performed By: #### C BC #### [facility] [address] [place] [address] Dr. Charan Ariza IG # 0.01 10e3/ul Normal 0.00-0.03 [facility] Comment on above: Performed By: #### C BC #### [facility] [address] [place] [address] Dr. Charan Ariza IG % 0.2 % Normal 0.0-0.5 [facility] Comment on above: Performed By: #### C BC #### [facility] [address] [place] [address] Dr. Charan Ariza LYMPH # 1.5 103/ul Normal 1.2-3.8 [facility] Comment on above: Performed By: #### C BC #### [facility] [address] [place] [address] Dr. Charan Ariza Lymphocytes/100 WBC (Bld) 28.9 % Normal 20.5-60.0 [facility] Comment on above: Performed By: #### C BC #### [facility] [address] [place] [address] Dr. Charan Ariza MANUAL DIFF REQ NO Normal [facility] Comment on above: Performed By: #### C BC #### [facility] [address] [place] [address] Dr. Charan Ariza MCH (RBC) [Entitic mass] 31.9 pg Normal 26.7-34.0 [facility] Comment on above: Performed By: #### C BC #### [facility] [address] [place] [address] Dr. Charan Ariza MCHC (RBC) [Mass/Vol] 32.2 g/dL Normal 29.9-35.2 [facility] Comment on above: Performed By: #### C BC #### [facility] [address] [place] [address] Dr. Charan Ariza MCV (RBC) [Entitic vol] 99.3 fL Critically high 81.0-99.0 [facility] Comment on above: Performed By: #### C BC #### [facility] [address] [place] [address] Dr. Charan Ariza MONO # 0.4 103/ul Normal 0.3-0.8 [facility] Comment on above: Performed By: #### C BC #### [facility] [address] [place] [address] Dr. Charan Ariza Monocytes/100 WBC (Bld) 7.8 % Normal 1.7-12.0 [facility] Comment on above: Performed By: #### C BC #### [facility] [address] [place] [address] Dr. Charan Ariaz NEUT # 2.9 103/ul Normal 1.4-6.5 [facility] Comment on above: Performed By: #### C BC #### [facility] [address] [place] [address] Dr. Charan Ariza Neutrophils/100 WBC (Bld) 55.4 % Normal 43.0-75.0 [facility] Comment on above: Performed By: #### C BC #### [facility] [address] [place] [address] [address] Charan Ariza Platelet mean volume (Bld) [Entitic vol] 10.4 fL Normal 9.5-13.5 [facility] Comment on above: Performed By: #### C BC #### [facility] [address] [place] [address] Dr. Charan Ariza PLT 326 103/ul Normal 150-450 [facility] Comment on above: Performed By: #### C BC #### [facility] [address] [place] [address] Dr. Charan Ariza RBC 4.29 106/ul Normal 4.20-5.40 [facility] Comment on above: Performed By: #### C BC #### [facility] [address] [place] [address] Dr. Charan Ariza WBC 5.3 103/ul Normal 4.0-11.0 [facility] Comment on above: Performed By: #### C BC #### [facility] [address] [place] [address] Dr. Charan Ariza LIPID PROFILEon 10-31-2022 CHOL-HDL RATIO NORM SEE BELOW Normal [facility] Comment on above: Result Comment: 3.3 - 4.4 LOW RISK 4.4 - 7.1 AVERAGE RISK 7.1 - 11.0 MODERATE RISK >11.0 HIGH RISK Performed By: #### A LT, BMP, LIPID #### [facility] [address] [place] [address] Dr. Charan Ariza Cholesterol [Mass/Vol] 180 mg/dL Normal <=200 [facility] Comment on above: Performed By: #### A LT, BMP, LIPID #### [facility] [address] [place] [address] Dr. Charan Ariza Cholesterol in HDL [Mass/Vol] 75 mg/dL Critically high 40-60 [facility] Comment on above: Performed By: #### A LT, BMP, LIPID #### [facility] [address] [place] [address] Dr. Charan Ariza Cholesterol in LDL [Mass/Vol] 77.4 mg/dL Normal [facility] Comment on above: Performed By: #### A LT, BMP, LIPID #### [facility] [address] [place] [address] [address] Charan Ariza Cholesterol.total/ Cholesterol in HDL [Mass ratio] 2.4 {ratio} Normal [facility] Comment on above: Performed By: #### A LT, BMP, LIPID #### [facility] [address] [place] [address] [address] Charan Ariza HDL NORMAL > or = 60 mg/dl - LO W CARDIOVASCULAR RISK <40 mg/dl - HIGH CARDIOVASCULAR RISK Normal [facility] Comment on above: Performed By: #### A LT, BMP, LIPID #### [facility] [address] [place] [address] [address] Charan Ariza LDL CALC NORMAL SEE BELOW Normal [facility] Comment on above: Result Comment: <100 mg/dl OPTIMAL 100 - 129 mg/dl NEAR OR ABOVE OPTIMAL 130 - 159 mg/dl BORDERLINE HIGH 160 - 189 mg/dl HIGH >190 mg/dl VERY HIGH Performed By: #### A LT, BMP, LIPID #### [facility] [address] [place] [address] Dr. Charan Ariza Triglyceride [Mass/Vol] 138 mg/dL Normal <=150 [facility] Comment on above: Performed By: #### A LT, BMP, LIPID #### [facility] [address] [place] [address] Dr. Charan Ariza VLDL CALC 27.6 mg/dL Normal [facility] Comment on above: Performed By: #### A LT, BMP, LIPID #### [facility] [address] [place] [address] [address] Charan Ariza NM STRESS/REST MULTIon 10-31 NM STRESS/REST MULTI Patient: JOAN BROWN Exam Date: 10/31/2022 : 1940 Gender:F Ordering : DR ODELL GOODSON D.O. Admission #: [id number] Family : Order #: [id number] CLICK HERE TO VIEW EXAM RADIOLOGY REPORT [...] Fournier MD on 10/31/2022 at 14:41 Normal [facility] PROF CHEM 8 (BAS METB)on Anion gap [Moles/Vol] 13.8 mmol/L Normal [facility] Comment on above: Performed By: #### A LT, BMP, LIPID #### [facility] [address] [place] [address] Dr. Charan Ariza Calcium [Mass/Vol] 9.2 mg/dL Normal 8.5-10.1 [facility] Comment on above: Performed By: #### A LT BMP, LIPID #### [facility] [address] [place] [address] [address] Charan Ariza Chloride [Moles/Vol] 105 mmol/L Normal 98-107 [facility] Comment on above: Performed By: #### A LT, BMP, LIPID #### [facility] [address] [place] [address] [address] Charan Ariza CO2 [Moles/Vol] 25.4 mmol/L Normal 21.0-32.0 [facility] Comment on above: Performed By: #### A LT, BMP, LIPID #### [facility] [address] [place] [address] [address] Charan Ariza Creatinine [Mass/Vol] 0.95 mg/dL Normal 0.55-1.02 [facility] Comment on above: Performed By: #### A LT, BMP, LIPID #### [facility] [address] [place] [address] [address] Charan Ariza EGFR-AF UZBEK >60 Normal >=60 [facility] Comment on above: Performed By: #### A LT, BMP, LIPID #### [facility] [address] [place] [address] Dr. Charan Ariza EGFR-NON AF UZBEK 57 mL/min/1.73m2 Critically low >=60 [facility] Comment on above: Performed By: #### A LT, BMP, LIPID #### [facility] [address] [address] [address] Charan Ariza Glucose [Mass/Vol] 93 mg/dL Normal 74-106 [facility] Comment on above: Performed By: #### A LT, BMP, LIPID #### [facility] [address] [address] [address] Charan Ariza Potassium [Moles/Vol] 4.2 mmol/L Normal 3.5-5.1 [facility] Comment on above: Performed By: #### A LT, BMP, LIPID #### [facility] [address] [address] [address] Charan Ariza Sodium [Moles/Vol] 140 mmol/L Normal 136-145 [facility] Comment on above: Performed By: #### A LT, BMP, LIPID #### [facility] [address] [address] [address] Charan Ariza Urea nitrogen [Mass/Vol] 19.0 mg/dL Critically high 7.0-18.0 [facility] Comment on above: Performed By: #### A LT, BMP, LIPID #### [facility] [address] [place], [place] [address] Dr. Charan Ariza Urea nitrogen/Creatinin e [Mass ratio] 20.0 mg/mg Normal [facility] Comment on above: Performed By: #### A LT, BMP, LIPID #### [facility] [address] [place], [place] [address] Dr. Charan Ariza SGPTon 10-31-2022 ALT [Catalytic activity/Vol] 29 U/L Normal 14-59 [facility] Comment on above: Performed By: #### A LT, BMP, LIPID #### [facility] [address] [place], [place] [address] Dr. Charan Ariza Office Visiton 10-11-2022 Follow-up visit [id number] Joan Brown 1940 F Date Provider Department Center 10/11/2022 ODILIA SERVIN [facility] Family History Problem Relation Age of Onset Coronary artery disease Father Other Father Family Status - Relation Status Age at Father Level of Service:10867 AR OFFICE/OUTPATIENT ESTABLISHED MOD MDM 30-39 MIN Reason for Visit and Comments: Coronary Artery Disease [187] Hypertension [327540] Atrial Fibrillation [80] carotid artery stenosis [Other] Normal [facility] ECHOCARDIO M/2D COMPLETEon 1 07-08-2021 ECHOCARDIO M/2D COMPLETE Patient: JOAN BROWN Exam Date: 05/08/2022 : 1940 Gender:F Ordering : DR JEREMIAS TERAN M.D. Admission #: [id number] Family : DR ODELL GOODSON D.O. Order #: [id number] CLICK HERE TO VIEW EXAM ECHOCARDIOGRAM REPORT [...] Teran M.D. on 05/08/2022 at 18:26 Normal [facility] XR LSPINE 2_3 VIEWSon 2021 XR LSPINE 2_3 VIEWS EXAMINATION: XR LSPINE 2_3 VIEWS HISTORY: Lumbosacral spondylosis with radiculopathy [...] by: TARIK MONROE Date: 2022-01-25 17:51 Normal [facility] CHEST AND LATERALon 03-20-20 21 CHEST AND LATERAL [facility] Department of Radiology [address] [place] [id number] ======== Patient Name: JOAN BROWN : 1940 Sex: F Age: Race: White Pt. Location: Patient Status: D Ordered Date: 03/20/2021 3:00:00 PM Completed Date: 03/20/2021 03:07 PM Requesting Provider: MANAS BOYD Attending Provider: MANAS BOYD Report Copy To: ODELL GOODSON Signs & Symptoms: R07.9 Chest pain, unspecified I10 History: Comments: evaluate Exam: CHEST AND LATERAL ======== CHEST AND LATERAL 03/20/2021 3:07 PM CLINICAL [...] above Electronically signed: Lashonda Romero. Transcribed by: [email or web address], User Resident: Electronically Signed by: LASHONDA ROMERO @ 03/21/2021 09:38 AM Normal [facility] Comment on above: Order Comment: evalu ate Vital Signs Date Time Vital Sign Value Performing Clinician Facility 07-09-2023 12:45-0500 Body height 147.32 cm Magno Pichardo II Other [facility] Other 07-09-2023 12:45-0500 Body mass index (BMI) [Ratio] 31.1 kg/m2 Magno Pichardo II Other [facility] Other 07-09-2023 12:45-0500 Body weight 67.5 kg Magno Pichardo II Other [facility] Other 06-06-2023 11:30-0500 Body height 147.32 cm Odell Ball Other [facility] Other 06-06-2023 11:30-0500 Body mass index (BMI) [Ratio] 29.88 kg/m2 Odell Ball Other [facility] Other 06-06-2023 11:30-0500 Body temperature 97.3 [degF] Odell Ball Other [facility] Other 06-06-2023 11:30-0500 Body weight 64.86 kg Odell Ball Other [facility] Other 06-06-2023 11:30-0500 Diastolic blood pressure 81 mm[Hg] Odell Ball Other [facility] Other 06-06-2023 11:30-0500 Respiratory rate 16 /min Odell Ball Other [facility] Other 06-06-2023 11:30-0500 Systolic blood pressure 138 mm[Hg] Odell Ball Other [facility] Other 05-21-2023 10:30-0500 Body height 147.32 cm Magno Marino II Other [facility] Other 05-21-2023 10:30-0500 Body mass index (BMI) [Ratio] 31.14 kg/m2 Magno Marino II Other [facility] Other 05-21-2023 10:30-0500 Body weight 67.59 kg Magno Ritchie II Other [facility] Other 05-20-2023 13:30-0500 Body height 147.32 cm Odell Ball Other [facility] Other 05-20-2023 13:30-0500 Body mass index (BMI) [Ratio] 31.64 kg/m2 Odell Ball Other [facility] Other 05-20-2023 13:30-0500 Body weight 68.68 kg Odell Ball Other [facility] Other 05-20-2023 13:30-0500 Diastolic blood pressure 77 mm[Hg] Odell Ball Other [facility] Other 05-20-2023 13:30-0500 Respiratory rate 12 /min Odell Ball Other [facility] Other 05-20-2023 13:30-0500 Systolic blood pressure 158 mm[Hg] Odell Ball Other [facility] Other 10-22-2022 15:00-0400 Body height 147.32 cm Odell Ball Other [facility] Other 10-22-2022 15:00-0400 Body mass index (BMI) [Ratio] 31.47 kg/m2 Odell Ball Other [facility] Other 10-22-2022 15:00-0400 Body weight 68.31 kg Odell Ball Other [facility] Other 10-22-2022 15:00-0400 Diastolic blood pressure 81 mm[Hg] Odell Ball Other [facility] Other 10-22-2022 15:00-0400 Respiratory rate 12 /min Odell Ball Other [facility] Other 10-22-2022 15:00-0400 Systolic blood pressure 150 mm[Hg] Odell Ball Other [facility] Other 07-24-2022 16:00-0500 Body height 147.32 cm Odell Ball Other [facility] Other 07-24-2022 16:00-0500 Body mass index (BMI) [Ratio] 31.81 kg/m2 Odell Ball Other [facility] Other 07-24-2022 16:00-0500 Body temperature 97 [degF] Odell Ball Other [facility] Other 07-24-2022 16:00-0500 Body weight 69.04 kg Odell Ball Other [facility] Other Encounters Encounter Date Encounter Type Care Provider Facility Start: 07-23-2023 End: 07-23-2023 ambulatory Magno Pichardo II Facility:[facility] Start: 07-23-2023 Telephone encounter Magno Pichardo II [facility] Start: 07-22-2023 End: 07-23-2023 ambulatory NBA MARCELO Not Available Start: 07-09-2023 End: 07-09-2023 ambulatory Magno Mcclendonle II Other [facility] Other Start: 07-09-2023 Office outpatient visit 15 minutes Magno Mcclendonle II [facility] Start: 06-06-2023 End: 06-06-2023 ambulatory Odell Ball Other [facility] Other Start: 06-06-2023 Office outpatient visit 15 minutes Odell Ball [facility] Start: 05-26-2023 End: 05-26-2023 ambulatory Odell Ball Other [facility] Other Start: 05-26-2023 Office outpatient visit 15 minutes Odell Ball [facility] Start: 05-26-2023 Telephone encounter Odell Ball [facility] Start: 05-21-2023 Office outpatient ne w 45 minutes Mango Pichardo II [facility] Start: 05-21-2023 End: 05-21-2023 ambulatory Magno Pichardo II [facility] Other Start: 05-20-2023 End: 05-20-2023 ambulatory Odell Goodson Other [facility] Other Start: 05-20-2023 Office outpatient visit 25 minutes Odell Goodson [facility] Start: 05-20-2023 Telephone encounter Odell Goodson LUPILLO [facility] Start: 05-14-2023 End: 05-14-2023 ambulatory [facility] Start: 11-29-[address] ODELL GOODSON [facility] ty:[facility] Start: 11-19-2022 End: 11-19-2022 ambulatory NARENDRANATH LAKSHMIPATHY . Facility:[facility] Start: 11-05-2022 End: 11-06-2022 ambulatory NARENDRANATH LAKSHMIPATHY . Facility:[facility] Start: 10-31-2022 End: 11-01-[address] ODELL GOODSON Facility:[facility] Start: 10-22-2022 End: 10-22-2022 ambulatory Odell Goodson Other [facility] Other Start: 10-22-2022 Patient encounter procedure Odell Goodson [facility] Start: 10-11-2022 End: 10-11-2022 ambulatory [facility] Start: 10-08-2022 End: 10-08-2022 ambulatory Odell Goodson Other [facility] Other Start: 10-08-2022 Office outpatient visit 15 minutes Odell Goodson [facility] Start: 07-24-2022 End: 07-24-2022 ambulatory Odell Goodson Other [facility] Other Start: 07-24-2022 Office outpatient visit 25 minutes Odell Goodson [facility] Start: 01-13-2023 Patient encounter status Odell Goodson Other [facility] Other Start: 05-08-2022 End: 05-09-2022 ambulatory JEREMIAS TERAN Facility:[facility] Start: 02-04-2022 End: 03-20-[address] ODELL GOODSON Facility:[facility] Start: 01-25-2022 End: 01-26-[address] ODELL GOODSON Facility:[facility] Immunizations Immunization Date Immunization Notes Care Provider Fa bridget 04-30-2023 Flu Shot - Documentation Purposes Only Odell Goodson Other [facility] Other 04-23-2022 influenza, high dose seasonal, preservative-free Odell Goodson Other [facility] Other 04-23-2022 influenza virus vaccine, split virus (incl. purified surface antigen) Odell Goodson Other [facility] Other 04-05-2021 COVID-19 Vaccine Pfi zer - Documentation Purposes Only Odell Goodson Other [facility] Other 03-26-2021 influenza virus vaccine, split virus (incl. purified surface antigen) Odell Goodson Other [facility] Other 08-16-2020 COVID-19 Vaccine Pfi zer - Documentation Purposes Only Odell Goodson Other [facility] Other 07-26-2020 COVID-19 Vaccine Moderna - Documentation Purposes Only Odell Goodson Other [facility] Other 07-26-2020 COVID-19 Vaccine Pfi zer - Documentation Purposes Only Odell Goodson Other [facility] Other 03-16-2020 influenza virus vaccine, split virus (incl. purified surface antigen) Odell Goodson Other [facility] Other 04-16-2019 influenza virus vaccine, split virus (incl. purified surface antigen) Odell Goodson Other [facility] Other 04-20-2018 influenza virus vaccine, split virus (incl. purified surface antigen) Odell Goodson Other [facility] Other 05-21-2017 influenza virus vaccine, split virus (incl. purified surface antigen) Odell Goodson Other [facility] Other 04-23-2016 influenza virus vaccine, split virus (incl. purified surface antigen) Odell Goodson Other [facility] Other 05-11-2015 pneumococcal conjuga te vaccine, 13 valent Odell Goodson Other [facility] Other 04-27-2015 tetanus and diphther ia toxoids, adsorbed, preservative free, for adult use (5 Lf of tetanus toxoid and 2 Lf of diphtheria toxoid) Odell Hamzah Other [facility] Other 04-12-2015 pneumococcal polysaccharide vaccine, 23 valent Odell Goodson Other [facility] Other 04-08-2014 tetanus and diphther ia toxoids, adsorbed, preservative free, for adult use (5 Lf of tetanus toxoid and 2 Lf of diphtheria toxoid) Odell Hamzah Other [facility] Other 05-10-2013 tetanus and diphther ia toxoids, adsorbed, preservative free, for adult use (5 Lf of tetanus toxoid and 2 Lf of diphtheria toxoid) Odell Hamzah Other [facility] Other 03-04-2012 tetanus and diphther ia toxoids, adsorbed, preservative free, for adult use (5 Lf of tetanus toxoid and 2 Lf of diphtheria toxoid) Odell Goodson Other [facility] Other 05-11-2008 pneumococcal polysaccharide vaccine, 23 valent Odell Goodson Other [facility] Other Payers Date Payer Category Payer Self-pay 1957 Medicare [id number] 2.1 [id number] 1957 Private Health Insurance [facility] [id number] 1940 Unknown [id number] 2.16.84 [id number] 1940 Unknown [id number] 2.16.84 0.1.304228.3.579.2.593 1940 Unknown [id number] 2.16.84 0.1.688399.3.579.2.593 1940 Unknown [id number] 2.16.84 0.1.774984.3.579.2.593 1940 Unknown [id number] 2.16.84 0.1.769668.3.579.2.593 1940 Unknown [id number] 2.16.84 0.1.806686.3.579.2.593 1940 Unknown [id number] 2.16.84 0.1.467812.3.579.2.593 1940 Unknown [id number] 2.16.84 0.1.845575.3.579.2.1259 1940 Unknown [id number] 2.16.84 0.1.171926.3.579.2.1259 1940 Unknown [id number] 2.16.84 0.1.620373.3.579.2.1259 Unknown [id number] 2.16.8 40.1.736729.3.579.2.531 Unknown [id number] 2.16.8 40.1.249072.3.579.2.531 Social History Date Type Detail Facility Sex Assigned At [facility] Other Clinical Notes 07-24-2022 to 07-23-2023 Note Date & Type Note Facility 07-23-2023 Evaluation note Encounter Date Diagnosis Assessment Notes Jun, Primary osteoarthritis of right knee (ICD-10 - M17.11) Jun, 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 I explained to her that at this point in time she could consider viscosupplementation since she has not tried that in the right knee in the past. She could also consider doing nothing and sticking with a status quo in regards to her treatment algorithm. And finally she could consider a right total knee arthroplasty. We discussed the risks and benefits of this major elective surgery. I did provide her literature on the knee replacement surgery and at this point in time she is going to go back to talk to family/friends and think about her treatment options moving forward. If she would like to call in and start the process for a total knee replacement and we will order the 6 preoperative labs. She would be an inpatient as she does live alone and would likely benefit from acute inpatient rehab. [facility] Other 12-08-2023 Evaluation note* Encounter Date Diagnosis Assessment Notes Treatment Notes Treatment Clinical Notes May, Acute bronchitis due to other specified organisms (ICD-10 - J20.8) Instructed to use Robitussin or Mucinex for cough, saline or Flonase NS for congestion, Tylenol for pain and fever. May, Hoarse voice quality (ICD-10 - R49.0) Saline or Flonase NS. Push fluids and rest voice May, Nasal folliculitis (ICD-10 - L73.9) Cleanse w/ soap and water. Mupirocin bid [facility] Other 11-27-2023 Evaluation note* Encounter Date Diagnosis [...] AHA diet plan. Continue secondary prevention measures. [facility] Other 11-22-2023 Evaluation note* Encounter Date Diagnosis [...] and or her pain management office in [place] to get that left hip injected with [...] L TKA by [facility] in 2013 with LCCK components [facility] Other 11-21-2023 Evaluation note* Encounter Date Diagnosis [...] are maintaining regular scheduled appts with their drug enforcement administration agent. Apr, Generalized anxiety disorder (ICD-10 - F41.1) [...] 50% narrowing Continue ASA and Statin therapy. [facility] Other 11-15-2023 NoteUT Cardiology - [facility] Subjective Joan Brown is a 82 y.o. year old female patient being seen for Follow-up (6 months) Patient Active Problem List Diagnosis Coronary artery disease involving [place] coronary artery of [place]at heart without angina pectoris Essential hypertension History [...] s/p right renal artery stenting, cath in 2011 showing 20% ISR. Post CABG she developed [...] MOUTH EVERY DAY, D (more content not included)...[facility]05-09-2023 Note CONSULTATION CONSULTATION DATE: 11/05/2022 TO: [...] our patients to inform us about any [id number] medications or herbal remedies/nutritional supplements/alternative remedies. 2. [...] treatment options with their primary care provider.[id number] Evaluation note * Encounter Date Diagnosis Assessment [...] are maintaining regular scheduled appts with their drug enforcement administration agent. No bleeding complications Sep, Generalized anxiety disorder (ICD-10 - F41.1) Healthy diet, exercise and keep active Sep, Hyperlipidemia type II (ICD-10 - E78.01) Diet and exercise with continued statin therapy. Sep, Primary osteoarthritis of both knees (ICD-10 - M17.0) Quad exercises, ice/heat and Tylenol Orthopedics referring to Pain Management Discussed opiates: Tramadol doesn't help, declines [place] Sep, Bilateral carotid bruits (ICD-10 - R09.89) Carotid US: 50-60% B/L 2018 Carotid US: < 50% 08/2021 < 50% stenosis Continue primary prevention measures Sep, Precordial pain (ICD-10 - R07.2) Sep, High risk medication use (ICD-10 - Z79.899) [facility] Other 04-14-[address] [facility] SUBJECTIVE Chief Complaint Patient presents with Coronary [...] Problem List Diagnosis Coronary artery disease involving y[place] coronary artery of [place] heart without angina pectoris Essential hypertension History [...] Carotid artery stenosis CHF (congestive heart failure) (CMS/HCC) Chronic kidney disease Coronary artery disease Heart [...] Judgment normal. Labs: B (more content not included)...[facility]04-14-2023 NotePatient here for 6 mo follow [...] light-headedness. All other systems reviewed and are negative.[facility] 10-08-2022 Evaluation note* Encounter Date Diagnosis Assessment Notes Treatment Notes Treatment Clinical Notes Sep, Acute bronchitis due to other specified organisms (ICD-10 - J20.8) Instructed to use Robitussin or Mucinex for cough, saline or Flonase NS for congestion, Tylenol for pain and fever. Sep, ASHD (arteriosclerotic heart disease) (ICD-10 - I25.10) Avoid use of decongestants w/ OTC medications [facility] Other 01-25-2023 Evaluation note* Encounter Date Diagnosis [...] use of Tylenol, Glucosamine and IA injections. [facility] Other Evaluation noteNo InformationNort [employer] Other History general Narrative - Reported* Type [...] Surgical History cholecystectomy Surgical History left TKA [facility] Other History general Narrative - Reported* Type [...] left TKA Hospitalization History see surgical history [facility] Other Summary Purpose Family History No Family [...] and content) DATE CREATED AUTHOR 03/21/2021 [facility] DATE CREATED AUTHOR AUTHOR'S ORGANIZ ATION 12/06/2022 [facility] DATE CREATED AUTHOR AUTHOR'S ORGANIZ ATION 05/16/2023 [facility] DATE CREATED AUTHOR AUTHOR'S ORGANIZ ATION 07/26/2023 [facility] DATE CREATED AUTHOR AUTHOR'S ORGANIZ ATION 07/27/2023 [facility] EPIC REASON FOR VISIT (unrecogniz ed section and content) F/U FROM LT HIP JOINT INJECT ION ALSO RECHECK RIGHT KNEE WANTS TO DISCUSS [phone] coldATB wantedNP LT KNEE PAIN UPDATE XRAYS PER [facility], SCHED AUTH APPROVED PREVIOUS TKA4 month Follow upPT order3 month Follow upSinus Infection/Cough-COVID Negative [phone] FOR RECORDS PERTAINING TO PATIENTS WHO ARE [...] BE BASED ON THE PRIMARY CLINICAL RECORDS. [facility] [employer] [facility]. provides no warranty or guarantee of the accuracy or completeness of information in this document.
[2023-08-01 13:02] LABS: BUN Creatinine Ratio 17.2; Calcium 9.2 mg/dL (8.5-10.1); Carbon Dioxide 26.6 mmol/L (21.0-32.0); Chloride 101 mmol/L (98-107); Estimated GFR (African America >60 (>=60); Estimated GFR (Non-African Ame 58 (>=60); Glucose 86 mg/dL (74-106); Potassium 3.6 mmol/L (3.5-5.1); Sodium 136 mmol/L (136-145)
== END 2023-08-01 11:58 | disposition home or self-care (01) ==
LOC: LAB 11:59
PROVIDERS: PCP Internal Medicine; Visit Provider Internal Medicine
DX: Z01.818 Encounter for other preprocedural examination (principal); I25.10 Atherosclerotic heart disease of native coronary artery without angina pectoris
CPT/HCPCS: 36415; 80048; 83880

== ENCOUNTER 2023-09-25 10:18 | Outpatient (RCR) | payer MEDICARE, SELFPAY | END 2023-10-29 13:53 | disposition home or self-care (01) | LOC: PT 10:18 | PROVIDERS: PCP Internal Medicine; Visit Provider Orthopaedic Surgery | DX: Z96.651 Presence of right artificial knee joint (principal); M17.11 Unilateral primary osteoarthritis, right knee | CPT/HCPCS: 97110; 97162; 97530 ==

== ENCOUNTER 2023-11-08 10:21 | Outpatient (OUT) | payer MEDICARE, SELFPAY ==
--- OUTSIDE RECORDS SUMMARY | 2023-11-08 10:26 | XMS_ITS | CCD ---
Author Organization [facility] Care Team Providers Care Cad Librarian Name Role Phone Odell Harrington Unavailable JUANY, DR RODRIGUEZ Admitting Unavailable BALL, DR RODRIGUEZ Attending Unavailable BALL, DR RODRIGUEZ Primary Care Unavailable LAKSHMIPATHY ., TANG Consulting Helen vailable BALL, DR RODRIGUEZ Primary Care Unavailable LAKSHMIPATHY ., NARJULITA Admitting Helen vailable LAKSHMIPATHY ., NARJULITA Attending Helen vailable LAKSHMIPATHY ., TANG Admitting Helen vailable BALL, DR RODRIGUEZ Primary Care Unavailable LAKSHMIPATHY ., TANG Attending Helen vailable LAKSHMIPATHY ., TANG Consulting Helen vailable BALL, DR RODRIGUEZ Primary Care Unavailable HALKER ., RAFAELA Admitting Unavailable HALKER ., RAFAELA Attending Unavailable MOUKARBEL, JEREMIAS Attending Unavailable MOUKARBEL, JEREMIAS Consulting Unavailable MOUKARBRAOUL, JEREMIAS Admitting Unavailable BALL, DR RODRIGUEZ Primary Care Unavailable BALL, DR RODRIGUEZ Admitting Unavailable BALL, DR RODRIGUEZ Attending Unavailable BALL, DR RODRIGUEZ Consulting Unavailable BALL, DR RODRIGUEZ Primary Care Unavailable ZIEBER, DR TARIK Gee Consulting Unavailable BALL, DR RODRIGUEZ Admitting Unavailable BALL, DR RODRIGUEZ Attending Unavailable BALL, DR RODRIGUEZ Consulting Unavailable BALL, DR RODRIGUEZ Primary Care Unavailable SAXAPAHAW, DR JOELLEN Ontiveros Consulting Unavailable MOUKARBEL, JEREMIAS Consulting Unavailable Magno Pichardo II Unavailable [phone] DO Odell Harrington Primary Care Provider MD Magno Pichardo II Attending Provider DO Odell Harrington Primary Care Provider MD Magno Pichardo II Attending Provider MD Elijah Mayers Admit Provider MD Elijah Mayers Attending Provider GLO Berry Other Provider Unavailable GLO Mcmahan Other Provider Unavailable Leland RN Anne Other Provider Unavailable Ray RN Bernie Other Provider Unavailable GLO Villegas Other Provider Unavailable GLO Kunz Other Provider Unavailable GLO Cardozo Other Provider Unavailable MD Annalisa Gar Other Provider MD Foster Santiago Other Provider Unavailable Dials, SPORTS OFFICIAL Lulú M Other Provider DO Genesis Andre Other Provider MD Bhupinder San Other Provider DO Ron Guajardo Other Provider MD Gilbert Lanier Other Provider [phone] MD Peri Grubbs Other Provider MD Raymond Hilton Other Provider Unavailable Jefe SPORTS OFFICIALPepe Gomez Other Provider MD Warren Mera Other Provider [phone] MD Flavio Woods Other Provider MD Saud Zuniga Other Provider MD Benjamin Plasencia Other Provider DO Roger Carranza Other Provider MD Ricardo Souza Other Provider MD Allen Andres Other Provider GERRY Earl Other Provider Born, SPORTS OFFICIAL Sloane Castañeda Other Provider Unavailable MD Huy Rosenbaum Other Provider MD Augie Ontiveros Other Provider MD Lc Lima Other Provider MD Mati Alberto Other Provider Unavailable MD Farhan Smith Other Provider DO Rakel Regan Other Provider DO Silverio Irizarry Other Provider DO Jean-Pierre Mariee Other Provider CHASITY Holland Other Provider DO Pj Knapp Other Provider [phone] MD Paula Ramirez Other Provider CHASITY Moore Other Provider CHASITY Zaragoza Other Provider [phone] MD Tushar Cohen Other Provider MD Vidal Akins Other Provider DO Aiden Stoll Other Provider MD Jordy Lima Other Provider GLO Thakkar Other Provider Unavailable [facility] Primary Care Unavailable Bayamon II, Magno Castañeda Attending Unavailabl e Marino II, Magno M Admitting Unavailabl e Bayamon II, Magno M Admitting Unavailabl e Bayamon II, Magno M Attending Unavailabl e [facility] Primary Care Unavailable Bayamon II, Magno M Attending Unavailabl e Bayamon II, Magno M Admitting Unavailabl e Bayamon II, Magno M Attending Unavailabl e [facility] II, Magno M [facility], [facility] Bayamon II, Magno M Admitting Unavailabl e Bayamon II, Magno M Admitting Unavailabl e Marino II, Magno M [facility] Bayamon II, Magno M Attending Unavailabl e Bayamon II, Magno M Admitting Unavailabl e Ana Berry Consulting Unavailable [facility] Primary Care Unavailable Nuha Mcmahan Consulting Unavailable Anne Ha Consulting Unavailable Bernie Bell Consulting Unavailable Cecelia Villegas Consulting Unavailable Zina Kunz Consulting Unavailable Carline Cardozo Consulting Unavailable Annalisa Gar Consulting Unavailable Foster Santiago Consulting Unavailable Lulú Garcia Consulting Unavailable Genesis Andre Consulting Unavailable Jaswinder, Bhupinder Consulting Unavailable Florentino Guajardoer Consulting Unavailabl syd Lanier, Gilbert Consulting Unavailable Humera, Peri Consulting Unavailable Yobani, Raymond Consulting Unavailable Patricia Mayberry Consulting Unavailalcides velarde WasRicco beasleyn Consulting Unavailable Zraik, Flavio Consulting Unavailable Nadia, Saud Consulting Unavailable Luis Angel, Courtneywan Consulting Unavailable Roger Carranza Consulting Unavailable Ricardo Souza Consulting Unavailable Allen Andres Consulting Unavailable Lashonda Earl Consulting Unavailable Sloane Martin Consulting Unavailable Huy Rosenbaum Consulting Unavailab Augie Hong Consulting Unavailable Lc Lima Consulting Unavailable Mati Alberto Consulting Unavailable Farhan Smith Consulting Unavailable Rkael Regan Consulting Unavailable Silverio Irizarry Consulting Unavailable Jean-Pierre Mariee Consulting Unavailable Carol Holland Consulting Unavailable Pj Knapp Consulting Unavailable Paula Ramirez Consulting Unavailable Antonella Moore Consulting Unavailable Chetna Zaragoza Consulting Unavailable Alahmad Alaa Consulting Unavailable Vidal Akins Consulting Unavailable Aiden Stoll Consulting Unavailable Lucas Carrillo Consulting Unavailable Jordy Lima Consulting Unavailable Martina Thakkar Consulting Unavailable Dilip Laird Consulting Unavailable Elijah Mayers Attending UnavailAna Jensen Consulting Unavailable Odell Harrington Primary Care Unavailable Elijah Mayers Admitting UnavailNuha Torres Consulting Unavailable Anne Ha Consulting Unavailable Bernie Bell Consulting Unavailable Cecelia Villegas Consulting Unavailable Zina Kunz Consulting Unavailable Carline Cardozo Consulting Unavailable Annalisa Gar Consulting Unavailable Foster Santiago Consulting Unavailable Lulú Garcia Consulting Unavailable Genesis Andre Consulting Unavailable Jaswinder, Bhupinder Consulting Unavailable Robertm, Ron Consulting Unavailabl e Yolande, Gilbert Consulting Unavailable Gabrielskiene, Peri Consulting Unavailable Yobani, Raymond Consulting Unavailable Patricia Mayberry Consulting Unavailalcides Mera, Haileywan Consulting Unavailable Chuck, Flavio Consulting Unavailable Nadia, Saud Consulting Unavailable Luis Angel, Safwan Consulting Unavailable Roger Carranza Consulting Unavailable Ricardo Souza Consulting Unavailable Allen Andres Consulting Unavailable Lashonda Earl Consulting Unavailable Sloane Martin Consulting Unavailable Huy Rosenbaum Consulting UnavailAugie Black Consulting Unavailable Lc Lima Consulting Unavailable Mati Alberto Consulting Unavailable Farhan Smith Consulting Unavailable Rakel Regan Consulting Unavailable Silverio Irizarry Consulting Unavailable MiniJean-Pierre hernández Consulting Unavailable ObCarol fox Consulting Unavailable Pj Knapp Consulting Unavailable DaromarPaula Consulting Unavailable Antonella Moore Consulting Unavailable Chetna Zaragoza Consulting Unavailable Alahmad, Alaa Consulting Unavailable Vidal Akins Consulting Unavailable Aiden Stoll Consulting Unavailable Jordy Lima Consulting Unavailable Martina Thakkar Consulting Unavailable NBA MARCELO Attending Unavailable FOZIA, NBA Hardy Referring Unavailable NBA MARCELO Referring Unavailable ANNABELLA DAWSON Attending Unavailable JEREMIAS MCGUIRE Attending Unavailable ODILIA ALCAZAR Attending Unavailable Allergies Allergy Classification Reported Allergen(s) Allergy Type Date of Onset Reaction(s) Facility (17 sources) Acetaminophen / HYDROcodone; Translations: [Vicodin] Drug Allergy 03-04-20 12 Unknown [facility] Repository (15 sources) Acetaminophen / oxyCODONE Drug Allergy Unknown [facility] Other (15 sources) Ciprofloxacin Drug Allergy Unknown [facility] Other (16 sources) Rocuronium; Translations: [ROCURONIUM] Drug Allergy 06-17-20 14 Unknown [facility] Repository (15 sources) Sulfamethoxazole / Trimethoprim Drug Allergy Unknown [facility] Other (2 sources) Acetaminophen / oxyCODONE Drug Allergy 03-04-20 12 [facility] Repository (2 sources) Rocuronium Drug Allergy 03-17-20 12 [facility] Repository (12 sources) Vicodin *ANALGESICS - OPIOID* Propensity to adverse reactions Unknown [facility] Other (5 sources) Acetaminophen Drug Allergy 08-20-[address] [facility] (5 sources) HYDROcodone Drug Allergy 08-20-[address] [facility] (5 sources) oxyCODONE Drug Allergy 08-20-[address] [facility] (5 sources) Rocuronium Drug Allergy 08-20-[address] [facility] (5 sources) Sulfamethoxazole Drug Allergy 08-20-[address] [facility] (5 sources) Trimethoprim Drug Allergy 08-20-[address] [facility] (1 source) Acetaminophen / HYDROcodone; Translations: [HYDROCODONE-ACETAM INOPHEN] Drug Allergy 06-17-20 14 [facility] Repository (1 source) Acetaminophen / oxyCODONE; Translations: [OXYCODONE-ACETAMIN OPHEN] Drug Allergy 06-17-20 14 [facility] Repository Medications Current Medications Medication Drug Class(es) Dates Sig (Normalized) Sig (Original) acetaminophen 500 mg oral tablet (20 sources) Start: 09-02-2023 take 1000 mg by mouth every eight hours Acetaminophen Active 1000 MG PO Q8H 0 September 02, 2023 1:00am Start: 08-20-2023 End: 08-20-2023 take 1000 mg by mouth every eight hours Acetaminophen Discontinued 1000 MG PO Q8H 180 30 August 20, 2023 1:00am August 20, 2023 3:21pm DOT NOT RECONCILE UNTIL DOS:09/01/2023 MED TO BED Start: 08-20-2023 End: 09-02-2023 take 1300 mg by mouth every twelve hours Acetaminophen Discontinued 1300 MG PO Every 12 hours August 20, 2023 1:00am September 02, 2023 3:01pm take 1 capsule by mo [facility] every six hours Acetaminophen 500 MG 1 capsule as needed Orally every 6 hrs Active amoxicillin 875 mg oral tablet (3 sources) Penicillin-class Antibacterial Start: 06-06-2023 take 1 tablet by mouth every twelve hours Amoxicillin 875 MG 1 tablet Orally Twice a day for 5 days May, Active atorvastatin 20 mg oral tablet (20 sources) HMG-CoA Reductase Inhibitor Start: 08-20-2023 take 10 mg by mouth once daily at bedtime Atorvastatin Active 10 MG PO Daily at bedtime August 20, 2023 1:00am Atorvastatin Paul cium 10 MG 1 Orally Once a day Active take 1 tablet by christopher every twenty-four hours Atorvastatin Calcium 20 MG 1 tablet Oral ly Once a day Active azithromycin 250 mg oral tablet (20 sources) Macrolide Antimicrobial Start: 09-19-2023 Azithromycin Active 250 MG PO As Directed 12 02September 19, 2023 12:00am Start: 08-25-2023 End: 09-01-2023 Azithromycin Discontinued 25 0 MG PO As Directed 12 02August 25, 2023 1:00am September 01, 2023 10:32am Start: 10-08-2022 Azithromycin 2 50 MG as directed Orally daily for 5 days Apr, Not-Taking/PRN cholecalciferol 0.05 mg oral capsule (20 sources) Vitamin D Start: 08-20-2023 End: 09-15-2023 take 50 ug by mouth once daily Cholecalciferol (Vitamin D3) Active 50 MCG PO Daily September 15, 2023 9:23am take 1 tablet by christopher th every twenty-four hours Vitamin D-[address] 25 MCG (1000 UT) 1 tablet Orally Once a day Active docusate sodium 100 mg oral capsule (2 sources) take 1 capsule by mouth every twenty-four hours Stool Softener 100 MG 1 capsule as needed Orally Once a day Active DULoxetine 30 mg delayed release oral capsule (2 sources) Serotonin and Norepinephrine Reuptake Inhibitor take 1 capsule by mouth every twenty-four hours DULoxetine HCl 30 MG 1 capsule Orally Once a day Active 24 hr metoprolol succinate 25 mg extended release oral tablet (20 sources) beta-Adrenergic Alexandre Start: 08-20-19 End: 09-15-19 take 25 mg by mouth once daily in the evening Metoprolol Succinate Active 25 MG PO Every evening September 15, 2023 9:23am take 0.5 tablet by mouth once da justo Metoprolol Succinate ER 50 MG 1/2 tablet Orally Once a day Active take 1 tablet by christopher th every twenty-four hours Metoprolol Succinate ER 50 MG 1 tablet Orally Once a day Active mupirocin 0.02 mg/mg topical ointment (3 sources) RNA Synthetase Inhibitor Antibacterial Start: 06-06-2023 Mupirocin 2 % 1 application Externally Twice a day for 10 days May, Active Hv-Vzh-Wgadf-Calc ium Carb-K1 (Women's 50 Plus Multivitamin) 400 mcg-500 mg calcium-20 mcg tablet (5 sources) Start: 08-20-2023 take 1 tablet by mouth once daily Cy-Era-Eydho-Calci um Carb-K1 (Women's 50 Plus Multivitamin) 400 mcg-500 mg calcium-20 mcg tablet Active 1 TAB PO Daily August 20, 2023 1:00am Start: 08-20-2023 take 1 tablet by christopher th once daily Uu-Tyr-Uygpm-Calcium Carb-K1 (Women's 50 Plus Multivitamin) 400 mcg-500 mg calcium-20 mcg tablet Active 1 TAB PO Daily August 20, 2023 12:00am naproxen 500 mg oral tablet (1 source) Nonsteroidal Anti-inflammatory Drug take 1 tablet by mouth every twelve hours at mealtime as needed Naproxen 500 MG 1 tablet with food or milk as needed Orally every 12 hrs Active omeprazole 20 mg delayed release oral capsule (6 sources) Proton Pump Inhibitor Start: 09-19-19 take 20 mg by mouth once daily Omeprazole Active 20 MG PO Daily September 19, 2023 12:00am Start: 08-20-2023 End: 08-25-2023 take 20 mg by mouth once daily in the morning Omeprazole Discontinued 20 MG PO Every morning August 20, 2023 1:00am August 25, 2023 11:56am predniSONE 10 mg oral tablet (9 sources) Start: 09-15-2023 take 30 mg by mouth once daily Prednisone Active 30 MG PO Daily September 15, 2023 9:23am Start: 08-20-2023 End: 09-15-2023 take 10 mg by mouth once daily Prednisone Discontinued 10 MG PO Daily 0 September 02, 2023 1:00am September 15, 2023 9:23am vitamin e 180 mg oral capsule (5 sources) Start: 08-20-2023 take 268 mg by mouth once daily Vitamin E Active 268 MG PO Daily August 20, 2023 1:00am Vitamin E 100 UNIT (15 sources) Vitamin E 100 UNIT as directed Orally Active zolpidem tartrate 10 mg oral tablet (20 sources) gamma-Aminobutyr ic Acid-ergic Agonist Start: 08-20-2023 take 10 mg by mouth once daily at bedtime Zolpidem Active 10 MG PO Daily at bedtime August 20, 2023 1:00am Start: 04-16-2023 take 1 tablet by christopher th at bedtime as needed Zolpidem Tartrate 10 [...] Drug Class(es) Dates Sig (Normalized) Sig (Original) ALPRAZolam 0.25 mg oral tablet (19 sources) Benzodiazepine Start: 09-15-2023 End: 09-19-2023 take 0.25 mg by mouth every six hours Alprazolam Discontinued 0.25 MG PO Q6H 0 September 15, 2023 12:00am September 19, 2023 11:43am Start: 08-25-2023 End: 09-15-2023 take 0.25 mg by mouth twice daily Alprazolam Discontinued 0.25 MG PO Twice daily August 25, 2023 1:00am September 15, 2023 9:24am take 1 tablet by christopher th every twelve hours ALPRAZolam 0.25 MG 1 tablet Orally Twice a day prn Active ascorbic acid 1000 mg extended release oral tablet (5 sources) Vitamin C Start: 08-20-2023 End: 08-20-2023 take 1000 mg by mouth every twelve hours Ascorbic Acid (Vitamin C) Discontinued 1000 MG PO Every 12 hours August 20, 2023 1:00am August 20, 2023 3:21pm aspirin 81 mg delayed release oral tablet (20 sources) Platelet Aggregation Inhibitor, Nonsteroidal Anti-inflammatory Drug Start: 08-20-2023 End: 09-15-2023 take 81 mg by mouth twice daily Aspirin Discontinued 81 MG PO Twice daily 0 September 02, 2023 1:00am September 15, 2023 9:23am Start: 08-20-2023 End: 09-15-2023 take 1 tablet by mouth once daily Aspirin (Adult Aspirin Regimen) 81 mg tablet,delayed release (DR/EC) Discontinued 81 MG PO Daily August 20, 2023 1:00am September 15, 2023 9:24am take 1 tablet by christopher th every twenty-four hours Aspirin 81 81 MG 1 tablet Orally Once a day Active take 1 tablet by christopher th once daily Aspirin 81 81 MG 1 tablet Orally Once a day Active cefadroxil 500 mg oral capsule (7 sources) Cephalosporin Antibacterial Start: 09-02-2023 End: 09-15-2023 take 500 mg by mouth twice daily Cefadroxil Discontinued 500 MG PO Twice daily 0 September 02, 2023 1:00am September 15, 2023 9:24am Start: 08-20-2023 End: 09-15-2023 take 500 mg by mouth every twelve hours Cefadroxil Discontinued 500 MG PO Q12H 14 7 August 20, 2023 1:00am September 15, 2023 9:24am DOT NOT RECONCILE UNTIL DOS:09/01/2023 MED TO BED diclofenac sodium 0.01 mg/mg topical gel (14 sources) Nonsteroidal Anti-inflammatory Drug Start: 08-25-2023 End: 09-19-2023 apply 2 g topically four times daily Diclofenac Sodium Discontinued 2 GM TOPICAL Four times daily 100 30 September 15, 2023 9:23am September 19, 2023 11:43am apply to single elbow, wrist or hand; for hand includes palm/fingers/back of hand Voltaren 1 % as directed Externally Active diphenhydrAMINE hydrochloride 25 mg oral capsule (5 sources) Histamine-1 Receptor Antagonist Start: 08-20-2023 End: 08-25-2023 take 1 capsule by mouth once daily at bedtime Diphenhydramine Hcl (Allergy (Diphenhydramine)) 25 mg capsule Discontinued 25 MG PO Daily at bedtime August 20, 2023 1:00am August 25, 2023 11:55am docusate sodium 50 mg / sennosides, senior living 8.6 mg oral tablet (7 sources) Start: 08-20-2023 End: 09-15-2023 take 2 tablets by mouth once daily Sennosides-Docusate Sodium Discontinued 2 TAB PO Daily 0 September 02, 2023 1:00am September 15, 2023 9:24am loratadine 10 mg oral tablet (17 sources) Start: 09-15-2023 End: 09-19-2023 take 10 mg by mouth once daily in the morning Loratadine Discontinued 10 MG PO Every morning 30 30 September 15, 2023 12:00am September 19, 2023 11:43am take 1 tablet by christopher th every twenty-four hours Claritin 10 MG 1 tablet Orally Once a da y Not-Taking/PRN losartan potassium 25 mg oral tablet (20 sources) Angiotensin 2 Receptor Alexandre Start: 08-20-2023 End: 09-19-2023 take 25 mg by mouth once daily in the morning Losartan Discontinued 25 MG PO Every morning 30 30 September 15, 2023 9:23am September 19, 2023 11:44am take 1 tablet by christopher every twenty-four hours Losartan Potassium 25 MG 1 tablet Orally Once a day Active ondansetron 4 mg oral tablet (5 sources) Serotonin-3 Receptor Antagonist Start: 08-20-2023 End: 09-15-2023 take 4 mg by mouth every eight hours Ondansetron Hcl Discontinued 4 MG PO Q8H 9 August 20, 2023 1:00am September 15, 2023 9:24am DOT NOT RECONCILE UNTIL DOS:09/01/2023 MED TO BED oxyCODONE hydrochloride 5 mg oral tablet (9 sources) Opioid Agonist Start: 08-20-2023 End: 09-19-2023 take 5 mg by mouth every four hours Oxycodone Discontinued 5 MG PO Q4H 35 7 September 15, 2023 September 19, 2023 11:44am pantoprazole 40 mg delayed release oral tablet (2 sources) Proton Pump Inhibitor Start: 09-15-2023 End: 09-19-2023 take 40 mg by mouth once daily Pantoprazole Discontinued 40 MG PO Daily 30 30 September 15, 2023 12:00am September 19, 2023 11:44am polyethylene glycol 3350 69434 mg powder for oral solution (5 sources) Osmotic Laxative Start: 08-20-2023 End: 09-15-2023 Polyethylene Glycol 3350 (Miralax) 17 gram/dose powder Discontinued 17 GM PO daily 7 7 August 20, 2023 1:00am September 15, 2023 9:24am 1 packed mixed with 8 ounces of fluid. DOT NOT RECONCILE UNTIL DOS:09/01/2023 MED TO BED propylene glycol 6 mg/ml ophthalmic solution (5 sources) Start: 08-20-2023 End: 08-25-2023 Propylene Glycol (Systane Balance) 0.6 % drops Discontinued 1 DROPS EYE-BOTH Daily August 20, 2023 1:00am August 25, 2023 11:56am traMADol hydrochloride 50 mg oral tablet (19 sources) Opioid Agonist Start: 08-20-2023 End: 09-15-2023 take 50 mg by mouth every six hours Tramadol Discontinued 50 MG PO Q6H 0 September 02, 2023 1:00am September 15, 2023 9:24am Start: 05-20-2023 take 1 tablet by christopher th twice daily as needed for pain traMADol HCl 50 MG 1 tablet as needed Orally twice daily as needed for pain for 30 days Apr, Active triamcinolone acetonide 40 mg/ml injectable suspension (19 sources) Corticosteroid Start: 05-21-2023 Kenalog-40 Apr, 120 mg Start: 01-21-2023 Triamcinolone Acetonide 0.025 % 1 application Externally Once a day as needed for 14 days Dec, Active Start: 01-21-2023 Triamcinolone Acetonide 0.025 % 1 application Externally Once a day as needed for 14 days Dec, Active Problems Active Problems Problem Classification Problem Date Documented Date Episodic/Chronic Acute bronchitis (17 sources) Acute infective bronchitis; Translations: [Acute bronchitis due to other specified organisms] Episodic Acute posthemorrhagic anemia (1 source) Acute posthemorrhagic anemia; Translations: [Acute posthemorrhagic anemia] 09-19-2023 Episodic Administrative/socia l admission (4 sources) Other reduced mobility; Translations: [Impaired mobility and activities of daily living] Onset: 4 09-03-2023 Episodic Allergic reactions (12 sources) Atopic dermatitis; Translations: [Atopic dermatitis, unspecified] Chronic Anxiety disorders (20 sources) Generalized anxiety disorder; Translations: [Generalized anxiety disorder] Onset: 4 Chronic Cardiac dysrhythmias (20 sources) Paroxysmal atrial fibrillation; Translations: [Paroxysmal atrial fibrillation] Onset: 2 Chronic Congestive heart failure; nonhypertensive (2 sources) Chronic systolic (congestive) heart failure; Translations: [Chronic systolic (congestive) heart failure] Onset: 2 Chronic Coronary atherosclerosis and other heart disease (20 sources) Coronary arteriosclerosis; Translations: [Atherosclerotic heart disease of [place] coronary artery without angina pectoris] Onset: 2 Chronic Disorders of lipid metabolism (20 sources) Familial hypercholesterolemia; Translations: [Familial hypercholesterolemia] Onset: 3 Chronic E Codes: Adverse effects of medical drugs (15 sources) Lipid-lowering drug adverse reaction; Translations: [Adverse effect of antihyperlipidemic and antiarteriosclerotic drugs, initial encounter] Episodic Esophageal disorders (15 sources) Gastro-esophageal reflux disease with esophagitis; Translations: [Gastroesophageal reflux disease with esophagitis without hemorrhage] Chronic Essential hypertension (20 sources) Essential hypertension; Translations: [Essential (primary) hypertension] Onset: 3 Chronic Inflammatory diseases of female pelvic organs (15 sources) Vulvovaginitis; Translations: [Acute vaginitis] Episodic Miscellaneous mental health disorders (15 sources) Primary insomnia; Translations: [Primary insomnia] Chronic Nonspecific chest pain (5 sources) Precordial pain; Translations: [PRECORDIAL PAIN] Onset: 3 Episodic Occlusion or stenosis of precerebral arteries (17 sources) Left carotid artery stenosis; Translations: [Occlusion and stenosis of left carotid artery] Onset: 2 Chronic Osteoarthritis (20 sources) Primary gonarthrosis, bilateral; Translations: [Bilateral primary osteoarthritis of knee] Onset: 3 Chronic Osteoporosis (6 sources) Osteoporosis; Translations: [Other osteoporosis without current pathological fracture] Onset: 4 Chronic Other aftercare (1 source) Patient encounter status; Translations: [Aftercare following joint replacement surgery] 10-07-2023 Chronic Other aftercare (2 sources) Aftercare following joint replacement surgery; Translations: [Aftercare following joint replacement] Onset: 4 10-08-2023 Chronic Other aftercare (4 sources) Other insights manager (current) drug therapy; Translations: [[facility] CURRENT DRUG THERAPY] Onset: 3 Episodic Other circulatory disease (3 sources) Other specified symptoms and signs involving the circulatory and respiratory systems Episodic Other connective tissue disease (10 sources) History of left total knee replacement; Translations: [Presence of left artificial knee joint] Chronic Other connective tissue disease (2 sources) Presence of left artificial knee joint Chronic Other connective tissue disease (2 sources) History of total knee arthroplasty; Translations: [Presence of right artificial knee joint] 09-02-2023 Chronic Other connective tissue disease (3 sources) Presence of right artificial knee joint; Translations: [Knee joint replacement] Onset: 4 09-01-2023 Chronic Other connective tissue disease (15 sources) Myalgia caused by statin; Translations: [Myalgia, unspecified site] Episodic Other nervous system disorders (1 source) Other chronic pain; Translations: [OTHER CHRONIC PAIN] Onset: 3 Chronic Other nervous system disorders (2 sources) Postoperative pain ; Translations: [Other acute postprocedural pain] 09-03-2023 Episodic Other nervous system disorders (2 sources) Other acute postprocedural pain; Translations: [Other acute postoperative pain] Onset: 4 09-15-2023 Episodic Other non-traumatic joint disorders (2 sources) Pain in left knee Episodic Other nutritional; endocrine; and metabolic disorders (15 sources) Body mass index 30+ - obesity; Translations: [Obesity, unspecified] Chronic Other nutritional; endocrine; and metabolic disorders (1 source) Obesity, unspecified Chronic Other skin disorders (1 source) Follicular disorder, unspecified Episodic Other upper respiratory disease (1 source) Dysphonia Episodic Other upper respiratory infections (19 sources) Acute recurrent maxillary sinusitis; Translations: [Acute maxillary sinusitis, unspecified] Episodic Residual codes; unclassified (15 sources) Menopause present; Translations: [Asymptomatic menopausal state] Episodic Residual codes; unclassified (1 source) Other specified health status; Translations: [Other specified health status] Onset: 4 Episodic Spondylosis; intervertebral disc disorders; other back problems (20 sources) Lumbosacral spondylosis with radiculopathy; Translations: [Other spondylosis with radiculopathy, lumbosacral region] Onset: 2 Chronic Unclassified (1 source) Presence of right artificial knee joint; Translations: [Presence of right artificial knee joint] Onset: 4 Unclassified (1 source) Bilateral primary osteoarthritis of knee; Translations: [Bilateral primary osteoarthritis of knee] Onset: 4 Unclassified (1 source) Encounter for other preprocedural examination; Translations: [Encounter for other preprocedural examination] Onset: 4 Unclassified (1 source) Unilateral primary osteoarthritis, right knee; Translations: [Unilateral primary osteoarthritis, right knee] Onset: 4 Unclassified (1 source) Pain in left knee; Translations: [Pain in left knee] Onset: 3 Past or Other Problems Problem Classification Problem Date Documented Da te Episodic/Chronic Coronary atherosclerosis and other heart disease (4 sources) Presence of aortocoronary bypass graft; Translations: [Aortocoronary bypass status] Onset: 04-15-2022 09-01-2023 Episodic Esophageal disorders (1 source) Esophageal disorders Other fractures (1 source) Collapsed vertebra, not elsewhere classified, lumbar region, initial encounter for fracture; Translations: [COLLAPSED VERT NEC LUMBAR INIT ENC] Onset: 01-31-2022 Episodic Other lower respiratory disease (4 sources) Dyspnea, unspecified; Translations: [DYSPNEA UNSPECIFIED] Onset: 05-08-2022 Episodic Results Test Name Value Interpretation Reference Range Facility XR knee RT 3V - NOT FOR ER U [place] 10-08-2023 XR knee RT 3V - NOT FOR ER USE [facility] [address] [place] [address] XRay Report Signed Patient: Ashley Brown MR#: [id number] 1 : 1940 Acct:[id number] Age/Sex: 82 / F ADM Date: 10/08/23 Loc: [facility] Room: Type: [facility] Attending Dr: Magno Pichardo II, MD Copies to: Magno Pichardo MD Ordering Provider: Magno Pichardo MD Date of Service: 10/08/23 XR/XR knee RT 3V - NOT FOR ER USE: Z47.1 - Aftercare following joint replacement surgery 3 views RIGHT knee plain film COMPARISON: 09/01/23 HISTORY: Status post RIGHT total knee arthroplasty ACUTE FINDINGS: No acute findings DEGENERATIVE CHANGE: Unremarkable SOFT TISSUE FINDINGS: Continued anterior soft tissue postsurgical changes. JOINT EFFUSION: None POSTOP CHANGES: Stable hardware. Hemostasis clips. BONE MINERALIZATION: Adequate XR/XR knee RT 3V - NOT FOR ER USE IMPRESSION: Stable RIGHT knee arthroplasty Impression dictated by: Richard Oliver M.D.10/08/2023 2:15 PM Dictation Location: [place] [address] Transcribed By: JESUSITA 10/08/23 1415 Dictated By: Richard Oliver DO 10/08/23 1413 Signed By: 10/08/23 1415 Normal [facility] Alanine aminotransferase [En zymatic activity/volume] in Serum or PlasmaOrdered By: Heidi Mesa on 09-08-2023 ALT [Catalytic activity/Vol] 99 U/L 7-[address] [facility] Albumin [Mass/volume] in Ser um or Plasma by Bromocresol green (BCG) dye binding methoOrdered By: Heidi Mesa on 09-08-2023 Albumin BCG dye [Mass/Vol] 3.4 g/dL 3.5-5.[address] [facility] Alkaline phosphatase [Enzyma tic activity/volume] in Serum or PlasmaOrdered By: Heidi Mesa on 09-08-2023 ALP [Catalytic activity/Vol] 125 U/L 34-[address] [facility] Aspartate aminotransferase [ Enzymatic activity/volume] in Serum or PlasmaOrdered By: Heidi Mesa on 09-08-2023 AST [Catalytic activity/Vol] 71 U/L 13-[address] [facility] Basic Metabolic Panelon 08-28 Anion gap [Moles/Vol] 10.9 mmol/L Normal 6.0-15.0 [facility] Comment on above: Performed By: #### B MP, CBC #### [facility] [address] Calcium [Mass/Vol] 8.5 mg/dL Low 8.6-10.3 [facility] Comment on above: Performed By: #### B MP, CBC #### [facility] [address] [place] [address] [place] Chloride [Moles/Vol] 103 mmol/L Normal 98-107 [facility] Comment on above: Performed By: #### B MP, CBC #### [facility] [address] [place] [id number] [place] CO2 [Moles/Vol] 25.7 mmol/L Normal 21.0-31.0 [facility] Comment on above: Performed By: #### B MP, CBC #### [facility] [address] Creatinine [Mass/Vol] 1.07 mg/dL Normal 0.60-1.20 [facility] Comment on above: Performed By: #### B MP, CBC #### [address] Creatinine Clr Calc Pharmacy 36.34 Normal [facility] Comment on above: Result Comment: PERF ORMED BY: [place] [address] PATHOLOGIST PEDIATRIC PHYSICAL THERAPIST BUBBA MERIDA M.D. Performed By: #### B MP, CBC #### [place] [address] [place] GFR/1.73 sq M.predicted MDRD (S/P/Bld) [Vol rate/Area] 52.511 mL/min/{1.73_m2} Normal [facility] Comment on above: Performed By: #### B MP, CBC #### [address] Glucose [Mass/Vol] 103 mg/dL High 70-100 [facility] Comment on above: Result Comment: [place] Glucose Reference Range is dependent on time and content of last meal. Glucose of more than 200 mg/dL in a nonstressed, ambulatory subject supports the diagnosis of Diabetes Mellitus. ADA recommended reference range Performed By: #### B MP, CBC #### [place] [address] [place] Potassium [Moles/Vol] 3.6 mmol/L Normal 3.5-5.1 [facility] Comment on above: Performed By: #### B MP, CBC #### [place] [address] [place] Sodium [Moles/Vol] 136 mmol/L Normal 136-145 [facility] Comment on above: Performed By: #### B MP, CBC #### [address] Urea nitrogen [Mass/Vol] 20 mg/dL Normal 7-25 [facility] Comment on above: Performed By: #### B MP, CBC #### [facility] [address] Basophils Auto (Bld) [#/Vol] Ordered By: Heidi Mesa on 09-08-2023 Basophils (Bld) [#/Vol] 0.1 10*3/uL 0.0-0.[address] [facility] Basophils/100 WBC Auto (Bld) Ordered By: Heidi Mesa on 09-08-2023 Basophils/100 WBC (Bld) 1.3 % . [facility] Bilirubin.total [Mass/volume ] in Serum or PlasmaOrdered By: Heidi Mesa on 09-08-2023 Bilirubin [Mass/Vol] 0.4 mg/dL 0.3-1.0 [facility] Calcium [Mass/volume] in Ser um or PlasmaOrdered By: Heidi Mesa on 09-08-2023 Calcium [Mass/Vol] 8.5 mg/dL 8.6-10.3 [facility] Carbon dioxide, total [Moles /volume] in Serum or PlasmaOrdered By: Heidi Mesa on 09-08-2023 CO2 [Moles/Vol] 25.7 mmol/L 21.0-31.0 [facility] Chloride [Moles/volume] in S tejas or PlasmaOrdered By: Heidi Mesa on 09-08-2023 Chloride [Moles/Vol] 103 mmol/L 98-107 [facility] Complete Blood Count Auto Di ffon 09-08-2023 Basophils (Bld) [#/Vol] 0.1 10*3/uL Normal 0.0-0.2 [facility] Comment on above: Result Comment: PERF ORMED BY: [place] [address] PATHOLOGIST PEDIATRIC PHYSICAL THERAPIST BUBBA MERIDA M.D. Performed By: #### B MP, CBC #### [facility] [address] Basophils/100 WBC (Bld) 1.3 % Normal . [facility] Comment on above: Performed By: #### B MP, CBC #### [facility] [address] Eosinophils (Bld) [#/Vol] 0.3 10*3/uL Normal 0.0-0.45 [facility] Comment on above: Performed By: #### B MP, CBC #### [address] Eosinophils/100 WBC (Bld) 4.0 % Normal . [facility] Comment on above: Performed By: #### B MP, CBC #### [address] Erythrocyte distribution width (RBC) [Ratio] 14.0 % Normal 11.9-15.3 [facility] Comment on above: Performed By: #### B MP, CBC #### [address] Hematocrit (Bld) [Volume fraction] 34.4 % Normal 34.0-46.4 [facility] Comment on above: Performed By: #### B MP, CBC #### [address] Hemoglobin (Bld) [Mass/Vol] 11.3 g/dL Low 11.8-15.4 [facility] Comment on above: Performed By: #### B MP, CBC #### [address] Lymphocytes (Bld) [#/Vol] 2.3 10*3/uL Normal 1.00-4.8 [facility] Comment on above: Performed By: #### B MP, CBC #### [address] Lymphocytes/100 WBC (Bld) 31.1 % Normal . [facility] Comment on above: Performed By: #### B MP, CBC #### [address] MCH (RBC) [Entitic mass] 32.2 pg Normal 24.7-34.3 [facility] Comment on above: Performed By: #### B MP, CBC #### [address] MCV (RBC) [Entitic vol] 97.7 fL Normal 80-100 [facility] Comment on above: Performed By: #### B MP, CBC #### [address] Mean Corpuscular HGB Conc 32.9 g/dL Normal 32.0-35.0 [facility] Comment on above: Performed By: #### B MP, CBC #### [address] Monocytes (Bld) [#/Vol] 0.7 10*3/uL Normal 0.0-0.8 [facility] Comment on above: Performed By: #### B MP, CBC #### [address] Monocytes/100 WBC (Bld) 9.5 % Normal . [facility] Comment on above: Performed By: #### B MP, CBC #### [address] Neutrophils (Bld) [#/Vol] 4.0 10*3/uL Normal 1.8-7.7 [facility] Comment on above: Performed By: #### B MP, CBC #### [address] Neutrophils/100 WBC (Bld) 54.1 % Normal . [facility] Comment on above: Performed By: #### B MP, CBC #### [address] NRBC% 0.1 /100{WBC} Normal 0-0.5 [facility] Comment on above: Performed By: #### B MP, CBC #### [address] Platelet mean volume (Bld) [Entitic vol] 8.0 fL Normal 6.3-10.[address] [facility] Comment on above: Performed By: #### B MP, CBC #### [address] Platelets (Bld) [#/Vol] 419 10*3/uL Normal 150-450 [facility] Comment on above: Performed By: #### B MP, CBC #### [address] RBC (Bld) [#/Vol] 3.52 10*6/uL Low 3.60-5.00 [facility] Comment on above: Performed By: #### B MP, CBC #### [address] WBC (Bld) [#/Vol] 7.3 10*3/uL Normal 3.8-11.6 [facility] Comment on above: Performed By: #### B MP, CBC #### [address] Comprehensive Metabolic Pane elia 09-08-2023 Albumin [Mass/Vol] 3.4 g/dL Low 3.5-5.7 [facility] Comment on above: Performed By: #### C MP #### [address] Albumin/Globulin [Mass ratio] 1.2 {ratio} Normal [facility] Comment on above: Performed By: #### C MP #### [address] ALP [Catalytic activity/Vol] 125 U/L High 34-104 [facility] Comment on above: Performed By: #### C MP #### [address] ALT [Catalytic activity/Vol] 99 U/L High 7-52 [facility] Comment on above: Performed By: #### C MP #### [address] Anion gap [Moles/Vol] 10.0 mmol/L Normal 6.0-15.0 [facility] Comment on above: Performed By: #### C MP #### [address] AST [Catalytic activity/Vol] 71 U/L High 13-39 [facility] Comment on above: Performed By: #### C MP #### [address] Bilirubin [Mass/Vol] 0.4 mg/dL Normal 0.3-1.0 [facility] Comment on above: Performed By: #### C MP #### [address] Calcium [Mass/Vol] 8.9 mg/dL Normal 8.6-10.3 [facility] Comment on above: Performed By: #### C MP #### [address] Chloride [Moles/Vol] 104 mmol/L Normal 98-107 [facility] Comment on above: Performed By: #### C MP #### [address] CO2 [Moles/Vol] 27.4 mmol/L Normal 21.0-31.0 [facility] Comment on above: Performed By: #### C MP #### [address] Creatinine [Mass/Vol] 0.91 mg/dL Normal 0.60-1.20 [facility] Comment on above: Performed By: #### C MP #### [address] Creatinine Clr Calc Pharmacy 42.73 Normal [facility] Comment on above: Result Comment: PERF ORMED BY: [place] [address] PATHOLOGIST PEDIATRIC PHYSICAL THERAPIST BUBBA MERIDA M.D. Performed By: #### C MP #### [address] GFR/1.73 sq M.predicted MDRD (S/P/Bld) [Vol rate/Area] mL/min/{1.73_m2} Normal [facility] Comment on above: Performed By: #### C MP #### [address] Globulin (S) [Mass/Vol] 2.9 g/dL Normal [facility] Comment on above: Performed By: #### C MP #### [address] Glucose [Mass/Vol] 85 mg/dL Normal 70-100 [facility] Comment on above: Result Comment: [place] Glucose Reference Range is dependent on time and content of last meal. Glucose of more than 200 mg/dL in a nonstressed, ambulatory subject supports the diagnosis of Diabetes Mellitus. ADA recommended reference range Performed By: #### C MP #### [address] Potassium [Moles/Vol] 4.4 mmol/L Normal 3.5-5.1 [facility] Comment on above: Performed By: #### C MP #### [address] Protein [Mass/Vol] 6.3 g/dL Low 6.4-8.9 [facility] Comment on above: Performed By: #### C MP #### [address] Sodium [Moles/Vol] 137 mmol/L Normal 136-145 [facility] Comment on above: Performed By: #### C MP #### [address] Urea nitrogen [Mass/Vol] 17 mg/dL Normal 7-25 [facility] Comment on above: Performed By: #### C MP #### [place] [address] [place] Creatinine [Mass/volume] in Serum or PlasmaOrdered By: Heidi Mesa on 09-08-2023 Creatinine [Mass/Vol] 1.07 mg/dL 0.60-1.[address] [facility] Eosinophils Auto (Bld) [#/Vo l]Ordered By: Heidi Mesa on 09-08-2023 Eosinophils (Bld) [#/Vol] 0.3 10*3/uL 0.0-0.[address] [facility] Eosinophils/100 WBC Auto (Bl d)Ordered By: Heidi Mesa on 09-08-2023 Eosinophils/100 WBC (Bld) 4.0 % . [facility] Erythrocyte distribution wid th Auto (RBC) [Ratio]Ordered By: Heidi Mesa on 09-08-2023 Erythrocyte distribution width (RBC) [Ratio] 14.0 % 11.9-15.[address] [facility] Globulin Calc (S) [Mass/Vol] Ordered By: Heidi Mesa on 09-08-2023 Globulin (S) [Mass/Vol] 2.9 g/dL [facility] Glucose [Mass/volume] in Ser um or PlasmaOrdered By: Heidi Mesa on 09-08-2023 Glucose [Mass/Vol] 103 mg/dL 70-100 [facility] Comment on above: ADA recommended refe rence rangeRandom Glucose Reference Range is dependent on time and content of last meal. Glucose of more than 200 mg/dL in a nonstressed, ambulatory subject supports the diagnosis of Diabetes Mellitus. Hematocrit Auto (Bld) [Volum e fraction]Ordered By: Heidi Mesa on 09-08-2023 Hematocrit (Bld) [Volume fraction] 34.4 % 34.0-46.[address] [facility] Hemoglobin [Mass/volume] in BloodOrdered By: Heidi Mesa on 09-08-2023 Hemoglobin (Bld) [Mass/Vol] 11.3 g/dL 11.8-15.[address] [facility] Leukocytes [#/volume] correc alvaro for nucleated erythrocytes in Blood by Automated counOrdered By: Heidi Mesa on 09-08-2023 WBC corrected for nucl RBC Auto (Bld) [#/Vol] 7.3 10*3/uL 3.8-11.[address] [facility] Lymphocytes Auto (Bld) [#/Vo l]Ordered By: Heidi Mesa on 09-08-2023 Lymphocytes (Bld) [#/Vol] 2.3 10*3/uL 1.00-4.[address] [facility] Lymphocytes/100 WBC Auto (Bl d)Ordered By: Heidi Mesa on 09-08-2023 Lymphocytes/100 WBC (Bld) 31.1 % . [facility] MCH Auto (RBC) [Entitic mass ]Ordered By: Heidi Mesa on 09-08-2023 MCH (RBC) [Entitic mass] 32.2 pg 24.7-34.[address] [facility] MCHC Auto (RBC) [Mass/Vol]Or dered By: Heidi Mesa on 09-08-2023 MCHC (RBC) [Mass/Vol] 32.9 g/dL 32.0-35.[address] [facility] MCV Auto (RBC) [Entitic vol] Ordered By: Heidi Mesa on 09-08-2023 MCV (RBC) [Entitic vol] 97.7 fL 80-[address] [facility] Monocytes Auto (Bld) [#/Vol] Ordered By: Heidi Mesa on 09-08-2023 Monocytes (Bld) [#/Vol] 0.7 10*3/uL 0.0-0.[address] [facility] Monocytes/100 WBC Auto (Bld) Ordered By: Heidi Mesa on 09-08-2023 Monocytes/100 WBC (Bld) 9.5 % . [facility] Neutrophils Auto (Bld) [#/Vo l]Ordered By: Heidi Mesa on 09-08-2023 Neutrophils (Bld) [#/Vol] 4.0 10*3/uL 1.8-7.[address] [facility] Neutrophils/100 WBC Auto (Bl d)Ordered By: Heidi Mesa on 09-08-2023 Neutrophils/100 WBC (Bld) 54.1 % . [facility] No Panel InformationOrdered By: Heidi Mesa on 09-08-2023 Estimated GFR (CKD-EPI) 52.511 mL/Min [facility] Creatinine Clearance (Chem 36.[address] [facility] Nucleated erythrocytes [Pres ence] in Blood by Automated countOrdered By: Heidi Mesa on 09-08-2023 Nucleated RBC Auto Ql (Bld) 0.1 /100{WBC} 0-0.[address] [facility] Platelet mean volume Auto (B ld) [Entitic vol]Ordered By: Heidi Mesa on 09-08-2023 Platelet mean volume (Bld) [Entitic vol] 8.0 fL 6.3-10.[address] [facility] Platelets Auto (Bld) [#/Vol] Ordered By: Heidi Mesa on 09-08-2023 Platelets (Bld) [#/Vol] 419 10*3/uL 150-[address] [facility] Potassium [Moles/volume] in Serum or PlasmaOrdered By: Heidi Mesa on 09-08-2023 Potassium [Moles/Vol] 3.6 mmol/L 3.5-5.[address] [facility] Protein [Mass/volume] in Ser um or PlasmaOrdered By: Heidi Mesa on 09-08-2023 Protein [Mass/Vol] 6.3 g/dL 6.4-8.9 [facility] RBC Auto (Bld) [#/Vol]Ordere d By: Heidi Mesa on 09-08-2023 RBC (Bld) [#/Vol] 3.52 10*6/uL 3.60-5.00 [facility] Serum or plasma albumin/glob ulin mass ratioOrdered By: Heidi Mesa on 09-08-2023 Albumin/Globulin [Mass ratio] 1.2 {ratio} [facility] Serum or plasma anion gap de terminationOrdered By: Heidi Mesa on 09-08-2023 Anion gap [Moles/Vol] 10.9 mmol/L 6.0-15.0 [facility] Sodium [Moles/volume] in Ser um or PlasmaOrdered By: Heidi Mesa on 09-08-2023 Sodium [Moles/Vol] 136 mmol/L 136-145 [facility] Urea nitrogen [Mass/volume] in Serum or PlasmaOrdered By: Heidi Mesa on 09-08-2023 Urea nitrogen [Mass/Vol] 20 mg/dL 7-[address] [facility] WBC Auto (Bld) [#/Vol]Ordere d By: Heidi Mesa on 09-08-2023 WBC (Bld) [#/Vol] 7.3 10*3/uL 3.8-11.6 [facility] Bilirubin.direct [Mass/volum e] in Serum or PlasmaOrdered By: Carol Holland on 09-07-2023 Bilirubin.direct [Mass/Vol] 0.10 mg/dL 0.03-0.[address] [facility] Hepatic Panelon 09-07-2023 Albumin [Mass/Vol] 3.7 g/dL Normal 3.5-5.7 [facility] Comment on above: Performed By: #### H EPATIC #### [address] Albumin/Globulin [Mass ratio] 1.2 {ratio} Normal [facility] Comment on above: Performed By: #### H EPATIC #### [address] ALP [Catalytic activity/Vol] 128 U/L High 34-104 [facility] Comment on above: Result Comment: PERF ORMED BY: [place] [address] PATHOLOGIST PEDIATRIC PHYSICAL THERAPIST BUBBA MERIDA M.D. Performed By: #### H EPATIC #### [address] ALT [Catalytic activity/Vol] 126 U/L High 7-52 [facility] Comment on above: Performed By: #### H EPATIC #### [address] AST [Catalytic activity/Vol] 115 U/L High 13-39 [facility] Comment on above: Performed By: #### H EPATIC #### [address] Bilirubin [Mass/Vol] 0.5 mg/dL Normal 0.3-1.0 [facility] Comment on above: Performed By: #### H EPATIC #### [address] Bilirubin,Indirect 0.4 mg/dL Normal [facility] Comment on above: Performed By: #### H EPATIC #### [address] Bilirubin.indirect [Mass/Vol] 0.10 mg/dL Normal 0.03-0.18 [facility] Comment on above: Performed By: #### H EPATIC #### [facility] [address] Globulin (S) [Mass/Vol] 3.2 g/dL Normal [facility] Comment on above: Performed By: #### H EPATIC #### [facility] [address] [place] [id number] [facility] Protein [Mass/Vol] 6.9 g/dL Normal 6.4-8.9 [facility] Comment on above: Performed By: #### H EPATIC #### [address] Serum or plasma non-glucuron idated bilirubin measurement (mass/volume)Ordered By: Carol Holland on 09-07-2023 Bilirubin.indirect [Mass/Vol] 0.4 mg/dL [facility] US venous duplex LE RTon US venous duplex LE RT [facility] [place] [address] [place] [address] Ultrasound Report Signed Patient: Ashley Brown MR#: [id number] 1 : 1940 Acct:[id number] Age/Sex: 82 / F ADM Date: 09/02/23 Loc: Room: 7Q8140-3 Type: ADM IN Attending Dr: Elijah Mayers MD Ordering Provider: Heidi Mesa APRN Date of Service: 09/05/23 US/US venous duplex LE RT: postop, swelling, pain Copies to: MD Heidi Gonzalez APRN RIGHT LOWER EXTREMITY VENOUS DUPLEX INDICATION: Painful swollen right leg Unilateral right lower extremity venous duplex Doppler study was obtained utilizing B-mode, color- flow and spectral Doppler. FINDINGS: The right common femoral, femoral, and popliteal veins showed adequate compressibility, color-flow and augmentation. The right posterior tibial and peroneal veins were compressible, as well as proximal greater saphenous vein. The contralateral left common femoral vein was compressible with color-flow and augmentation. US/US venous duplex LE RT IMPRESSION: NO EVIDENCE OF DEEP VENOUS THROMBOSIS IN THE RIGHT LOWER EXTREMITY. NO SUPERFICIAL THROMBOPHLEBITIS WAS NOTED. Impression dictated by: Richard Cochran M.D.09/06/2023 9:29 AM Dictation Location: [place] [address] Tech: Yuridia Roth Transcribed By: JESUSITA 09/06/23928 Dictated By: Richard Cochran MD 09/06/23927 Signed By: 09/06/23928 Normal [facility] Complete Blood Count Auto Di ffon 09-03-2023 Basophils (Bld) [#/Vol] 0.0 10*3/uL Normal 0.0-0.2 [facility] Comment on above: Result Comment: PERF ORMED BY: [place] [address] PATHOLOGIST PEDIATRIC PHYSICAL THERAPIST BUBBA MERIDA M.D. Performed By: #### P AB, CBC, CMP #### [address] Basophils/100 WBC (Bld) 0.3 % Normal . [facility] Comment on above: Performed By: #### P AB, CBC, CMP #### [place] [address] [place] Eosinophils (Bld) [#/Vol] 0.1 10*3/uL Normal 0.0-0.45 [facility] Comment on above: Performed By: #### P AB, CBC, CMP #### [address] Eosinophils/100 WBC (Bld) 0.8 % Normal . [facility] Comment on above: Performed By: #### P AB, CBC, CMP #### [address] Erythrocyte distribution width (RBC) [Ratio] 13.3 % Normal 11.9-15.3 [facility] Comment on above: Performed By: #### P AB, CBC, CMP #### [address] Hematocrit (Bld) [Volume fraction] 34.1 % Normal 34.0-46.4 [facility] Comment on above: Performed By: #### P AB, CBC, CMP #### [address] Hemoglobin (Bld) [Mass/Vol] 11.4 g/dL Low 11.8-15.4 [facility] Comment on above: Performed By: #### P AB, CBC, CMP #### [address] Lymphocytes (Bld) [#/Vol] 0.8 10*3/uL Low 1.00-4.8 [facility] Comment on above: Performed By: #### P AB, CBC, CMP #### [address] Lymphocytes/100 WBC (Bld) 10.7 % Normal . [facility] Comment on above: Performed By: #### P AB, CBC, CMP #### [address] MCH (RBC) [Entitic mass] 32.4 pg Normal 24.7-34.3 [facility] Comment on above: Performed By: #### P AB, CBC, CMP #### [address] MCV (RBC) [Entitic vol] 97.5 fL Normal 80-100 [facility] Comment on above: Performed By: #### P AB, CBC, CMP #### [address] Mean Corpuscular HGB Conc 33.3 g/dL Normal 32.0-35.0 [facility] Comment on above: Performed By: #### P AB, CBC, CMP #### [address] Monocytes (Bld) [#/Vol] 0.9 10*3/uL High 0.0-0.8 [facility] Comment on above: Performed By: #### P AB, CBC, CMP #### [address] Monocytes/100 WBC (Bld) 11.5 % Normal . [facility] Comment on above: Performed By: #### P AB, CBC, CMP #### [facility] [address] Neutrophils (Bld) [#/Vol] 6.0 10*3/uL Normal 1.8-7.7 [facility] Comment on above: Performed By: #### P AB, CBC, CMP #### [address] Neutrophils/100 WBC (Bld) 76.7 % Normal . [facility] Comment on above: Performed By: #### P AB, CBC, CMP #### [facility] [address] [place] [address] NRBC% 0.0 /100{WBC} Normal 0-0.5 [facility] Comment on above: Performed By: #### P AB, CBC, CMP #### [address] Platelet mean volume (Bld) [Entitic vol] 8.2 fL Normal 6.3-10.[address] [facility] Comment on above: Performed By: #### P AB, CBC, CMP #### [address] Platelets (Bld) [#/Vol] 296 10*3/uL Normal 150-450 [facility] Comment on above: Performed By: #### P AB, CBC, CMP #### [address] RBC (Bld) [#/Vol] 3.50 10*6/uL Low 3.60-5.00 [facility] Comment on above: Performed By: #### P AB, CBC, CMP #### [place] [address] [place] WBC (Bld) [#/Vol] 7.8 10*3/uL Normal 3.8-11.6 [facility] Comment on above: Performed By: #### P AB, CBC, CMP #### [address] Comprehensive Metabolic Pane elia 09-03-2023 Albumin [Mass/Vol] 3.3 g/dL Low 3.5-5.7 [facility] Comment on above: Performed By: #### P AB, CBC, CMP #### [address] Albumin/Globulin [Mass ratio] 1.5 {ratio} Normal [facility] Comment on above: Performed By: #### P AB, CBC, CMP #### [address] ALP [Catalytic activity/Vol] 178 U/L High 34-104 [facility] Comment on above: Performed By: #### P AB, CBC, CMP #### [address] ALT [Catalytic activity/Vol] 258 U/L High 7-52 [facility] Comment on above: Performed By: #### P AB, CBC, CMP #### [address] Anion gap [Moles/Vol] 11.9 mmol/L Normal 6.0-15.0 [facility] Comment on above: Performed By: #### P AB, CBC, CMP #### [address] AST [Catalytic activity/Vol] 273 U/L High 13-39 [facility] Comment on above: Performed By: #### P AB, CBC, CMP #### [address] Bilirubin [Mass/Vol] 0.4 mg/dL Normal 0.3-1.0 [facility] Comment on above: Performed By: #### P AB, CBC, CMP #### [address] Calcium [Mass/Vol] 8.8 mg/dL Normal 8.6-10.3 [facility] Comment on above: Performed By: #### P AB, CBC, CMP #### [address] Chloride [Moles/Vol] 101 mmol/L Normal 98-107 [facility] Comment on above: Performed By: #### P AB, CBC, CMP #### [address] CO2 [Moles/Vol] 28.6 mmol/L Normal 21.0-31.0 [facility] Comment on above: Performed By: #### P AB, CBC, CMP #### [address] Creatinine [Mass/Vol] 0.78 mg/dL Normal 0.60-1.20 [facility] Comment on above: Performed By: #### P AB, CBC, CMP #### [address] Creatinine Clr Calc Pharmacy 47.47 Normal [facility] Comment on above: Performed By: #### P AB, CBC, CMP #### [address] GFR/1.73 sq M.predicted MDRD (S/P/Bld) [Vol rate/Area] mL/min/{1.73_m2} Normal [facility] Comment on above: Performed By: #### P AB, CBC, CMP #### [address] Globulin (S) [Mass/Vol] 2.2 g/dL Normal [facility] Comment on above: Performed By: #### P AB, CBC, CMP #### [address] Glucose [Mass/Vol] 117 mg/dL High 70-100 [facility] Comment on above: Result Comment: [place] Glucose Reference Range is dependent on time and content of last meal. Glucose of more than 200 mg/dL in a nonstressed, ambulatory subject supports the diagnosis of Diabetes Mellitus. ADA recommended reference range Performed By: #### P AB, CBC, CMP #### [address] Potassium [Moles/Vol] 4.5 mmol/L Normal 3.5-5.1 [facility] Comment on above: Performed By: #### P AB, CBC, CMP #### [address] Protein [Mass/Vol] 5.5 g/dL Low 6.4-8.9 [facility] Comment on above: Performed By: #### P AB, CBC, CMP #### [place] [address] [place] Sodium [Moles/Vol] 137 mmol/L Normal 136-145 [facility] Comment on above: Performed By: #### P AB, CBC, CMP #### [address] Urea nitrogen [Mass/Vol] 11 mg/dL Normal 7-25 [facility] Comment on above: Performed By: #### P AB, CBC, CMP #### [address] Prealbuminon 09-03-2023 Prealbumin [Mass/Vol] 15.7 mg/dL Low 17.0-34.0 [facility] Comment on above: Result Comment: PERF ORMED BY: [place] [address] PATHOLOGIST PEDIATRIC PHYSICAL THERAPIST BUBBA MERIDA M.D. Performed By: #### P AB, CBC, CMP #### [address] Prealbumin [Mass/volume] in Serum or PlasmaOrdered By: Elijah Mayers on 09-03-2023 Prealbumin [Mass/Vol] 15.7 mg/dL 17.0-34.[address] [facility] Complete Blood Count Auto Di ffon 09-02-2023 Basophils (Bld) [#/Vol] 0.1 10*3/uL Normal 0.0-0.2 [facility] Comment on above: Result Comment: PERF ORMED BY: [place] [address] PATHOLOGIST PEDIATRIC PHYSICAL THERAPIST BUBBA MERIDA M.D. Performed By: #### B MP, CBC #### [place] [address] [place] Basophils/100 WBC (Bld) 0.9 % Normal . [facility] Comment on above: Performed By: #### B MP, CBC #### [address] Eosinophils (Bld) [#/Vol] 0.2 10*3/uL Normal 0.0-0.45 [facility] Comment on above: Performed By: #### B MP, CBC #### [address] Eosinophils/100 WBC (Bld) 2.5 % Normal . [facility] Comment on above: Performed By: #### B MP, CBC #### [address] Erythrocyte distribution width (RBC) [Ratio] 13.4 % Normal 11.9-15.3 [facility] Comment on above: Performed By: #### B MP, CBC #### [address] Hematocrit (Bld) [Volume fraction] 32.3 % Low 34.0-46.4 [facility] Comment on above: Performed By: #### B MP, CBC #### [address] Hemoglobin (Bld) [Mass/Vol] 10.9 g/dL Low 11.8-15.4 [facility] Comment on above: Performed By: #### B MP, CBC #### [place] [address] [place] Lymphocytes (Bld) [#/Vol] 0.7 10*3/uL Low 1.00-4.8 [facility] Comment on above: Performed By: #### B MP, CBC #### [place] [address] [place] Lymphocytes/100 WBC (Bld) 9.5 % Normal . [facility] Comment on above: Performed By: #### B MP, CBC #### [address] MCH (RBC) [Entitic mass] 32.7 pg Normal 24.7-34.3 [facility] Comment on above: Performed By: #### B MP, CBC #### [address] MCV (RBC) [Entitic vol] 96.7 fL Normal 80-100 [facility] Comment on above: Performed By: #### B MP, CBC #### [address] Mean Corpuscular HGB Conc 33.8 g/dL Normal 32.0-35.0 [facility] Comment on above: Performed By: #### B MP, CBC #### [address] Monocytes (Bld) [#/Vol] 0.7 10*3/uL Normal 0.0-0.8 [facility] Comment on above: Performed By: #### B MP, CBC #### [address] Monocytes/100 WBC (Bld) 9.5 % Normal . [facility] Comment on above: Performed By: #### B MP, CBC #### [address] Neutrophils (Bld) [#/Vol] 5.8 10*3/uL Normal 1.8-7.7 [facility] Comment on above: Performed By: #### B MP, CBC #### [address] Neutrophils/100 WBC (Bld) 77.6 % Normal . [facility] Comment on above: Performed By: #### B MP, CBC #### [address] NRBC% 0.0 /100{WBC} Normal 0-0.5 [facility] Comment on above: Performed By: #### B MP, CBC #### [address] Platelet mean volume (Bld) [Entitic vol] 8.1 fL Normal 6.3-10.[address] [facility] Comment on above: Performed By: #### B MP, CBC #### [address] Platelets (Bld) [#/Vol] 272 10*3/uL Normal 150-450 [facility] Comment on above: Performed By: #### B MP, CBC #### [address] RBC (Bld) [#/Vol] 3.34 10*6/uL Low 3.60-5.00 [facility] Comment on above: Performed By: #### B MP, CBC #### [address] WBC (Bld) [#/Vol] 7.5 10*3/uL Normal 3.8-11.6 [facility] Comment on above: Performed By: #### B MP, CBC #### [address] ABO/Rh Retypeon 09-01-2023 ABO/RH Recheck Result Positive Normal [facility] Comment on above: Result Comment: PERF ORMED BY: [place] [address] PATHOLOGIST PEDIATRIC PHYSICAL THERAPIST BUBBA MERIDA M.D. Basic Metabolic Panelon Anion gap [Moles/Vol] 11.0 mmol/L Normal 6.0-15.0 [facility] Comment on above: Performed By: #### B MP #### [address] Calcium [Mass/Vol] 9.3 mg/dL Normal 8.6-10.3 [facility] Comment on above: Performed By: #### B MP #### [address] Chloride [Moles/Vol] 105 mmol/L Normal 98-107 [facility] Comment on above: Performed By: #### B MP #### [address] CO2 [Moles/Vol] 25.7 mmol/L Normal 21.0-31.0 [facility] Comment on above: Performed By: #### B MP #### [address] Creatinine [Mass/Vol] 0.81 mg/dL Normal 0.60-1.20 [facility] Comment on above: Performed By: #### B MP #### [place] [address] [place] Creatinine Clr Calc Pharmacy 47.31 Normal [facility] Comment on above: Result Comment: PERF ORMED BY: [place] [address] PATHOLOGIST PEDIATRIC PHYSICAL THERAPIST BUBBA MERIDA M.D. Performed By: #### B MP #### [address] GFR/1.73 sq M.predicted MDRD (S/P/Bld) [Vol rate/Area] mL/min/{1.73_m2} Normal [facility] Comment on above: Performed By: #### B MP #### [address] Glucose [Mass/Vol] 81 mg/dL Normal 70-100 [facility] Comment on above: Result Comment: [facility] Glucose Reference Range is dependent on time and content of last meal. Glucose of more than 200 mg/dL in a nonstressed, ambulatory subject supports the diagnosis of Diabetes Mellitus. ADA recommended reference range Performed By: #### B MP #### [address] Potassium [Moles/Vol] 3.7 mmol/L Normal 3.5-5.1 [facility] Comment on above: Performed By: #### B MP #### [address] Sodium [Moles/Vol] 138 mmol/L Normal 136-145 [facility] Comment on above: Performed By: #### B MP #### [facility] [address] [place] [id number] [facility] Urea nitrogen [Mass/Vol] 11 mg/dL Normal 7-25 [facility] Comment on above: Performed By: #### B MP #### [facility] [address] [place] [id number] [facility] Elia 09-01-2023 L Specimen: [id number] Received: 09/02/23 Status: MENG Req Num: [id number] Spec Type: Surgical Subm Dr: Magno Pichardo MD Tissues: A Joint/Knee (RT KNEE) Procedures: HE, Gross/Micro L4, Decalcification Age/ Patient Sex Location Account Attending Physician Ashley Brown 82/F 4N [id number] Magno Pichardo MD SPEC NUM: [id number] RECD: 09/02/23 STATUS: MENG LOPEZQ NUM: [id number] GINA: 09/01/[address]: Magno Pichardo MD ENTERED: 09/02/[address] [facility] [address]: SPEC TYPE: Surgical DEPT: S ORDERED: HE, Gross/Micro L4, Decalcification ORDERED: HE, Gross/Micro L4, Decalcification Pathological Diagnosis Bone And Tissue, Right Knee, Arthroplasty: Degenerative Changes Consistent With Osteoarthritis. Gross examination only. Clinical Information Right knee pain, right knee osteoarthritis Gross Description Received in formalin labeled with the patient's name, date of and bone and tissue right knee is a 14.5 x 13.0 x 4.3 cm aggregate of shoemaker-white bone and yellow-purcell rubbery tissue. The bone fragments have smooth granular shoemaker-purcell articular surfaces with eburnation identified. The cut surface of the bone is yellow-shoemaker, trabecular without discrete lesion. A gross photo is taken. Gross examination only. CPT Codes 83609 Gross Photo Specimen: [id number] Received: 09/02/23 Status: MENG Villegas Num: [id number] Spec Type: Surgical Subm Dr: Magno Pichardo MD Tissues: A Joint/Knee (RT KNEE) Procedures: SISSY, Gross/Micro L4, Decalcification Patient: Ashley Brown [id number] (Continued) Signed (signature on file) Nik Garza MD 09/10/23 1049 Normal [facility] XR knee RT 2Von 09-01-2023 XR knee RT 2V [address] [address] XRay Report Signed Patient: Ashley Brown MR#: [id number] 1 : 1940 Acct:[id number] Age/Sex: 82 / F ADM Date: 09/01/23 Loc: 4N Room: [address] [place] [address] Type: ADM IN Attending Dr: Magno Pichardo II, MD Copies to: Magno Pichardo MD Ordering Provider: Magno Pichardo MD Date of Service: 09/01/23 XR/XR knee RT 2V: POST OP 2 views RIGHT knee plain film COMPARISON: None HISTORY: Postop RIGHT knee arthroplasty ACUTE FINDINGS: No acute findings DEGENERATIVE CHANGE: Unremarkable SOFT TISSUE FINDINGS: Recent anterior postsurgical soft tissue changes JOINT EFFUSION: None POSTOP CHANGES: Adequate hardware without complication. BONE MINERALIZATION: Adequate XR/XR knee RT 2V IMPRESSION: Uncomplicated RIGHT knee arthroplasty Impression dictated by: Richard Oliver M.D.09/01/2023 3:20 PM Dictation Location: [place] [address] Transcribed By: [facility] 09/01/23 1520 Dictated By: Richard Oliver DO 09/01/23 1517 Signed By: 09/01/23 1520 Normal [facility] Automated erythrocytes count in urine sediment (number/area)Ordered By: Magno Pichardo on 08-20-2023 RBC Auto (Urine sed) [#/Area] 0-1 [HPF] 0-[address] [facility] Automated leukocytes count i n urine sediment (number/area)Ordered By: Magno Pichardo on 08-20-2023 WBC Auto (Urine sed) [#/Area] 10-19 [HPF] 0-[address] [facility] Basic Metabolic Panelon 08-01 Anion gap [Moles/Vol] 10.6 mmol/L Normal 6.0-15.0 [facility] Comment on above: Performed By: #### B MP, CBC #### [facility] [address] [place] [address] [place] Calcium [Mass/Vol] 9.7 mg/dL Normal 8.6-10.3 [facility] Comment on above: Result Comment: PERF ORMED BY: [place] [address] PATHOLOGIST PEDIATRIC PHYSICAL THERAPIST BUBBA MERIDA M.D. Performed By: #### B MP, CBC #### [address] Chloride [Moles/Vol] 104 mmol/L Normal 98-107 [facility] Comment on above: Performed By: #### B MP, CBC #### [address] CO2 [Moles/Vol] 26.3 mmol/L Normal 21.0-31.0 [facility] Comment on above: Performed By: #### B MP, CBC #### [address] Creatinine [Mass/Vol] 0.88 mg/dL Normal 0.60-1.20 [facility] Comment on above: Performed By: #### B MP, CBC #### [place] [address] [place] GFR/1.73 sq M.predicted MDRD (S/P/Bld) [Vol rate/Area] mL/min/{1.73_m2} Normal [facility] Comment on above: Performed By: #### B MP, CBC #### [address] Glucose [Mass/Vol] 81 mg/dL Normal 70-100 [facility] Comment on above: Result Comment: [facility] Glucose Reference Range is dependent on time and content of last meal. Glucose of more than 200 mg/dL in a nonstressed, ambulatory subject supports the diagnosis of Diabetes Mellitus. ADA recommended reference range Performed By: #### B MP, CBC #### [address] Potassium [Moles/Vol] 3.9 mmol/L Normal 3.5-5.1 [facility] Comment on above: Performed By: #### B MP, CBC #### [place] [address] [place] Sodium [Moles/Vol] 137 mmol/L Normal 136-145 [facility] Comment on above: Performed By: #### B MP, CBC #### [address] Urea nitrogen [Mass/Vol] 19 mg/dL Normal 7-25 [facility] Comment on above: Performed By: #### B MP, CBC #### [facility] [address] Basophils Auto (Bld) [#/Vol] Ordered By: Magno Pichardo on 08-20-2023 Basophils (Bld) [#/Vol] 0.1 10*3/uL 0.0-0.[address] [facility] Basophils/100 WBC Auto (Bld) Ordered By: Magno Pichardo on 08-20-2023 Basophils/100 WBC (Bld) 1.1 % . [facility] Bilirubin Test strip Ql (U)O rdered By: Magno Pichardo on 08-20-2023 Bilirubin Ql (U) Negative Negative [facility] Calcium [Mass/volume] in Ser um or PlasmaOrdered By: Magno Pichardo on 08-20-2023 Calcium [Mass/Vol] 9.7 mg/dL 8.6-10.3 [facility] Carbon dioxide, total [Moles /volume] in Serum or PlasmaOrdered By: Magno Pichardo on 08-20-2023 CO2 [Moles/Vol] 26.3 mmol/L 21.0-31.0 [facility] Chloride [Moles/volume] in S tejas or PlasmaOrdered By: Magno Pichardo on 08-20-2023 Chloride [Moles/Vol] 104 mmol/L 98-107 [facility] Color Auto (U)Ordered By: Suri Pichardo on 08-20-2023 Color (U) Yellow Yellow [facility] Complete Blood Count Auto Di ffon 08-20-2023 Basophils (Bld) [#/Vol] 0.1 10*3/uL Normal 0.0-0.2 [facility] Comment on above: Result Comment: PERF ORMED BY: [place] [address] PATHOLOGIST PEDIATRIC PHYSICAL THERAPIST BUBBA MERIDA M.D. Performed By: #### B MP, CBC #### [facility] [address] [place] [address] #### FRUC #### [facility] , Basophils/100 WBC (Bld) 1.1 % Normal . [facility] Comment on above: Performed By: #### B MP, CBC #### [place] [address] [place] #### FRUC #### [facility] , Eosinophils (Bld) [#/Vol] 0.2 10*3/uL Normal 0.0-0.45 [facility] Comment on above: Performed By: #### B MP, CBC #### [place] [address] [place] #### FRUC #### [facility] , Eosinophils/100 WBC (Bld) 3.5 % Normal . [facility] Comment on above: Performed By: #### B MP, CBC #### [place] [address] [place] #### FRUC #### [facility] , Erythrocyte distribution width (RBC) [Ratio] 14.3 % Normal 11.9-15.3 [facility] Comment on above: Performed By: #### B MP, CBC #### [place] [address] [place] #### FRUC #### [facility] , Hematocrit (Bld) [Volume fraction] 39.8 % Normal 34.0-46.4 [facility] Comment on above: Performed By: #### B MP, CBC #### [place] [address] [place] #### FRUC #### [facility] , Hemoglobin (Bld) [Mass/Vol] 13.5 g/dL Normal 11.8-15.4 [facility] Comment on above: Performed By: #### B MP, CBC #### [place] [address] [place] #### FRUC #### [facility] , Lymphocytes (Bld) [#/Vol] 1.3 10*3/uL Normal 1.00-4.8 [facility] Comment on above: Performed By: #### B MP, CBC #### [place] [address] [place] #### FRUC #### [facility] , Lymphocytes/100 WBC (Bld) 20.0 % Normal . [facility] Comment on above: Performed By: #### B MP, CBC #### [place] [address] [place] #### FRUC #### [facility] , MCH (RBC) [Entitic mass] 33.2 pg Normal 24.7-34.3 [facility] Comment on above: Performed By: #### B MP, CBC #### [place] [address] [place] #### FRUC #### [facility] , MCV (RBC) [Entitic vol] 97.4 fL Normal 80-100 [facility] Comment on above: Performed By: #### B MP, CBC #### [place] [address] [place] #### FRUC #### [facility] , Mean Corpuscular HGB Conc 34.1 g/dL Normal 32.0-35.0 [facility] Comment on above: Performed By: #### B MP, CBC #### [place] [address] [place] #### FRUC #### [facility] , Monocytes (Bld) [#/Vol] 0.6 10*3/uL Normal 0.0-0.8 [facility] Comment on above: Performed By: #### B MP, CBC #### [place] [address] [place] #### FRUC #### [facility] , Monocytes/100 WBC (Bld) 9.3 % Normal . [facility] Comment on above: Performed By: #### B MP, CBC #### [place] [address] [place] #### FRUC #### [facility] , Neutrophils (Bld) [#/Vol] 4.4 10*3/uL Normal 1.8-7.7 [facility] Comment on above: Performed By: #### B MP, CBC #### [facility] [address] [place] [address] [place] #### FRUC #### [facility] , Neutrophils/100 WBC (Bld) 66.1 % Normal . [facility] Comment on above: Performed By: #### B MP, CBC #### [place] [address] [place] #### FRUC #### [facility] , NRBC% 0.1 /100{WBC} Normal 0-0.5 [facility] Comment on above: Performed By: #### B MP, CBC #### [place] [address] [place] #### FRUC #### [facility] , Platelet mean volume (Bld) [Entitic vol] 8.4 fL Normal 6.3-10.[address] [facility] Comment on above: Performed By: #### B MP, CBC #### [facility] [address] [place] [address] [place] #### FRUC #### [facility] , Platelets (Bld) [#/Vol] 326 10*3/uL Normal 150-450 [facility] Comment on above: Performed By: #### B MP, CBC #### [facility] [address] [place] [address] [place] #### FRUC #### [facility] , RBC (Bld) [#/Vol] 4.08 10*6/uL Normal 3.60-5.00 [facility] Comment on above: Performed By: #### B MP, CBC #### [facility] [address] [place] [address] [place] #### FRUC #### [facility] , WBC (Bld) [#/Vol] 6.6 10*3/uL Normal 3.8-11.6 [facility] Comment on above: Performed By: #### B MP, CBC #### [facility] [address] [place] [address] [place] #### FRUC #### [facility] , Creatinine [Mass/volume] in Serum or PlasmaOrdered By: Magno Pichardo on 08-20-2023 Creatinine [Mass/Vol] 0.88 mg/dL 0.60-1.[address] [facility] Dipstick and Microscopicon 0 08-20-2023 Appearance (U) Clear Normal Clear [facility] Comment on above: Order Comment: Date of Surgery: [id number] Performed By: #### A DDONUAPLUS, CUU ####[place] [address] [address] Bacteria,Urine None Seen Normal None Seen [facility] Comment on above: Order Comment: Date of Surgery: [id number] Performed By: #### A DDONUAPLUS, CUU ####[place] [address] [place] [id number] [facility] Bilirubin,Urine Negative Normal Negative [facility] Comment on above: Order Comment: Date of Surgery: [id number] Performed By: #### A DDONUAPLUS, CUU ####[address] [address] [facility] Color (U) Yellow Normal Yellow [facility] Comment on above: Order Comment: Date of Surgery: [id number] Performed By: #### A DDONUAPLUS, CUU ####[place] [address] [place] [id number] [facility] Glucose Ql (U) Normal Normal Normal [facility] Comment on above: Order Comment: Date of Surgery: [id number] Performed By: #### A DDONUAPLUS, CUU ####[address] [address] [place] Hyaline Casts,Urine None Seen Normal 0-8 [facility] Comment on above: Order Comment: Date of Surgery: 20230901 Result Comment: PERF ORMED BY: [facility] [address] [place] [id number] PATHOLOGIST PEDIATRIC PHYSICAL THERAPIST BUBBA MERIDA M.D. Performed By: #### A DDONUAPLUS, CUU ####[address] [address] [facility] Ketones Ql (U) Negative Normal Negative [facility] Comment on above: Order Comment: Date of Surgery: [id number] Performed By: #### A DDONUAPLUS, CUU ####[address] [address] [facility] Leukocyte esterase Test strip Ql (U) 3+ High Negative [facility] Comment on above: Order Comment: Date of Surgery: [id number] Performed By: #### A DDONUAPLUS, CUU ####[address] [address] [place] Nitrite,Urine Negative Normal Negative [facility] Comment on above: Order Comment: Date of Surgery: [id number] Performed By: #### A DDONUAPLUS, CUU ####[address] [address] [place] Occult Blood,Urine Negative Normal Negative [facility] Comment on above: Order Comment: Date of Surgery: 20230901 Result Comment: PERF ORMED BY: [facility] [address] [place] [id number] PATHOLOGIST PEDIATRIC PHYSICAL THERAPIST BUBBA MERIDA M.D. Performed By: #### A DDONUAPLUS, CUU ####[address] [address] [facility] pH (U) 6.0 [pH] Normal 5.0-9.0 [facility] Comment on above: Order Comment: Date of Surgery: 20230901 Performed By: #### A DDONUAPLUS, CUU ####[place] [address] [place] [address] [facility] Protein,Urine Negative Normal Negative [facility] Comment on above: Order Comment: Date of Surgery: 20230901 Performed By: #### A ESTEPHANIE, CUU ####[place] [address] [place] [address] [facility] RBC LM.HPF (Urine sed) [#/Area] 0 /[HPF] Normal 0-4 [facility] Comment on above: Order Comment: Date of Surgery: [id number] Performed By: #### A ESTEPHANIE, CUU ####[place] [address] [place] [address] [facility] Specificy [place],Urine 1.008 Normal 1.001-1.03 0 [facility] Comment on above: Order Comment: Date of Surgery: 20230901 Performed By: #### A ESTEPHANIE, CUU ####[place] [id number] [facility] Squamous Epithelial Cell,Urine 0-1 Normal 0-2 [facility] Comment on above: Order Comment: Date of Surgery: [id number] Performed By: #### A ESTEPHANIE, CUU ####[place] [id number] [facility] Urobilinogen,Urine Normal Normal Normal [facility] Comment on above: Order Comment: Date of Surgery: 20230901 Performed By: #### A ESTEPHANIE, CUU ####[address] [address] [facility] WBC,Urine 10-19 High 0-4 [facility] Comment on above: Order Comment: Date of Surgery: [id number] Performed By: #### A ESTEPHANIE, CUU ####[address] [address] [facility] ECG 12 lead ECGon 08-20-2023 ECG 12 lead ECG [facility] [address] [place] [address] [place] [address] Electrocardiograph Report Signed Patient: Ashley Brown MR#: [id number] 1 : 1940 Acct:[id number] Age/Sex: 82 / F ADM Date: 08/20/23 Loc: PS Room: Type: [facility] Attending Dr: Magno Pichardo II, MD Ordering Provider: Magno Pichardo MD Date of Service: 08/20/23 ECG/ECG 12 lead ECG: RTKA Copies to: Test Reason : Blood Pressure : / mmHG Vent. Rate : 072 BPM Atrial Rate : 072 BPM P-R Int : 152 ms QRS Dur : 102 ms QT Int : 404 ms P-R-T Axes : 003 050 -11 degrees QTc Int : 442 ms Normal sinus rhythm Cannot rule out Inferior infarct , age undetermined T wave abnormality, consider lateral ischemia Abnormal ECG No previous ECGs available Confirmed by EARL MENENDEZ [facility] ([id number] on 08/20/2023 5:49:37 PM Referred By: MARINO Electronically Signed By:DARIUS CATALAN MD [facility] Transcribed By: MUS Signed By Daron Catalan MD 08/20/23 1749 Normal [facility] Eosinophils Auto (Bld) [#/Vo l]Ordered By: Magno Pichardo on 08-20-2023 Eosinophils (Bld) [#/Vol] 0.2 10*3/uL 0.0-0.[address] [facility] Eosinophils/100 WBC Auto (Bl d)Ordered By: Magno Pichardo on 08-20-2023 Eosinophils/100 WBC (Bld) 3.5 % . [facility] Erythrocyte distribution wid th Auto (RBC) [Ratio]Ordered By: Magno Pichardo on 08-20-2023 Erythrocyte distribution width (RBC) [Ratio] 14.3 % 11.9-15.[address] [facility] Fructosamineon 08-20-2023 Fructosamine 210 umol/L Normal 0-[address] [facility] Comment on above: Result Comment: Publ ished reference interval for apparently healthy subjects between age 20 and 60 is 205 - 285 umol/L and in a poorly controlled diabetic population is 228 - 563 umol/L with a mean of 396 umol/L. Performed at: [facility] [address] [id number] [employer]: Federico Guzman PhD, Phone: [phone] PERFORMED BY: [place] [address] PATHOLOGIST PEDIATRIC PHYSICAL THERAPIST BUBBA MERIDA M.D. Performed By: #### B MP, CBC #### [address] Fructosamine [Moles/volume] in Serum or PlasmaOrdered By: Magno Pichardo on 08-20-2023 Fructosamine [Moles/Vol] 210 umol/L 0-[address] [facility] Comment on above: Published reference interval for apparently healthysubjects between age 20 and 60 is 205 - 285 umol/L and in apoorly controlled diabetic population is 228 - 563 umol/Lwith a mean of 396 umol/L.Performed at: - [place] [id number] Director: Federico Guzman PhD, Phone: [phone] Glucose [Mass/volume] in Ser um or PlasmaOrdered By: Magno Pichardo on 08-20-2023 Glucose [Mass/Vol] 81 mg/dL 70-100 [facility] Comment on above: ADA recommended refe rence rangeRandom Glucose Reference Range is dependent on time and content of last meal. Glucose of more than 200 mg/dL in a nonstressed, ambulatory subject supports the diagnosis of Diabetes Mellitus. Hematocrit Auto (Bld) [Volum e fraction]Ordered By: Magno Pichardo on 08-20-2023 Hematocrit (Bld) [Volume fraction] 39.8 % 34.0-46.[address] [facility] Hemoglobin [Mass/volume] in BloodOrdered By: Magno Pichardo on 08-20-2023 Hemoglobin (Bld) [Mass/Vol] 13.5 g/dL 11.8-15.[address] [facility] Ketones Auto test strip (U) [Mass/Vol]Ordered By: Magno Pichardo on 08-20-2023 Ketones (U) [Mass/Vol] Negative Negative [facility] Laboratory - UrinalysisOrder ed By: Magno Pichardo on 02-21-2024 Hyaline casts LM Ql (Urine sed) None seen [LPF] 0-[address] [facility] Leukocytes [#/volume] correc alvaro for nucleated erythrocytes in Blood by Automated counOrdered By: Magno Pichardo on 08-20-2023 WBC corrected for nucl RBC Auto (Bld) [#/Vol] 6.6 10*3/uL 3.8-11.[address] [facility] Lymphocytes Auto (Bld) [#/Vo l]Ordered By: Magno Pichardo on 08-20-2023 Lymphocytes (Bld) [#/Vol] 1.3 10*3/uL 1.00-4.[address] [facility] Lymphocytes/100 WBC Auto (Bl d)Ordered By: Magno Pichardo on 08-20-2023 Lymphocytes/100 WBC (Bld) 20.0 % . [facility] MCH Auto (RBC) [Entitic mass ]Ordered By: Magno Pichardo on 08-20-2023 MCH (RBC) [Entitic mass] 33.2 pg 24.7-34.[address] [facility] MCHC Auto (RBC) [Mass/Vol]Or dered By: Magno Pichardo on 08-20-2023 MCHC (RBC) [Mass/Vol] 34.1 g/dL 32.0-35.[address] [facility] MCV Auto (RBC) [Entitic vol] Ordered By: Magno Pichardo on 08-20-2023 MCV (RBC) [Entitic vol] 97.4 fL 80-[address] [facility] Monocytes Auto (Bld) [#/Vol] Ordered By: Magno Pichardo on 08-20-2023 Monocytes (Bld) [#/Vol] 0.6 10*3/uL 0.0-0.[address] [facility] Monocytes/100 WBC Auto (Bld) Ordered By: Magno Pichardo on 08-20-2023 Monocytes/100 WBC (Bld) 9.3 % . [facility] Neutrophils Auto (Bld) [#/Vo l]Ordered By: Magno Pichardo on 08-20-2023 Neutrophils (Bld) [#/Vol] 4.4 10*3/uL 1.8-7.[address] [facility] Neutrophils/100 WBC Auto (Bl d)Ordered By: Magno Pichardo on 08-20-2023 Neutrophils/100 WBC (Bld) 66.1 % . [facility] Nitrite Test strip Ql (U)Ord ered By: Magno Pichardo on 08-20-2023 Nitrite Ql (U) Negative Negative [facility] No Panel InformationOrdered By: Magno Pichardo on 08-20-2023 Estimated GFR (CKD-EPI) > 60.0 mL/Min [facility] Creatinine Clearance (Chem N/A [facility] Nucleated erythrocytes [Pres ence] in Blood by Automated countOrdered By: Magno Pichardo on 08-20-2023 Nucleated RBC Auto Ql (Bld) 0.1 /100{WBC} 0-0.[address] [facility] PST Type and Screenon 2023 ABO and Rh group Nom (Bld) Blood group O Rh(D) positive Normal [facility] Comment on above: Order Comment: Date of Surgery: 20230901 Result Comment: PERF ORMED BY: [facility] [address] [place] [address] PATHOLOGIST PEDIATRIC PHYSICAL THERAPIST BUBBA MERIDA M.D. Platelet mean volume Auto (B ld) [Entitic vol]Ordered By: Magno Pichardo on 08-20-2023 Platelet mean volume (Bld) [Entitic vol] 8.4 fL 6.3-10.[address] [facility] Platelets Auto (Bld) [#/Vol] Ordered By: Magno Pichardo on 08-20-2023 Platelets (Bld) [#/Vol] 326 10*3/uL 150-[address] [facility] Potassium [Moles/volume] in Serum or PlasmaOrdered By: Magno Pichardo on 08-20-2023 Potassium [Moles/Vol] 3.9 mmol/L 3.5-5.[address] [facility] Protein Auto test strip (U) [Mass/Vol]Ordered By: Magno Pichardo on 08-20-2023 Protein (U) [Mass/Vol] Negative Negative [facility] RBC Auto (Bld) [#/Vol]Ordere d By: Magno Pichardo on 08-20-2023 RBC (Bld) [#/Vol] 4.08 10*6/uL 3.60-5.00 [facility] Serum or plasma anion gap de terminationOrdered By: Magno Pichardo on 08-20-2023 Anion gap [Moles/Vol] 10.6 mmol/L 6.0-15.0 [facility] Sodium [Moles/volume] in Ser um or PlasmaOrdered By: Magno Pichardo on 08-20-2023 Sodium [Moles/Vol] 137 mmol/L 136-145 [facility] Specific gravity Auto test s trip (U) [Rel density]Ordered By: Magno Pichardo on 08-20-2023 Specific gravity (U) [Rel density] 1.008 1.001-1.[address] [facility] Squamous epithelial cells de tection in urine sediment by light microscopyOrdered By: Magno Pichardo on 08-20-2023 Epithelial cells.squamous LM Ql (Urine sed) 0-1 [HPF] 0-[address] [facility] Urea nitrogen [Mass/volume] in Serum or PlasmaOrdered By: Magno Pichardo on 08-20-2023 Urea nitrogen [Mass/Vol] 19 mg/dL 7-[address] [facility] Urine Cultureon 08-20-2023 Bacteria identified Cx Nom (U) <10,000 colonies/ml mixed bacterial skin contaminants including mixed gram negative bacilli - 2 Days PERFORMED BY: [facility] [address] [place] [address] PATHOLOGIST PEDIATRIC PHYSICAL THERAPIST BUBBA MERIDA M.D. Normal [facility] Comment on above: Performed By: #### A DDONUACARLOS ROYU ####[facility] Urine bacteria detection by automated methodOrdered By: Magno Pichardo on 08-20-2023 Bacteria Auto Ql (U) None seen None Seen [facility] Urine clarity by refractomet ry automatedOrdered By: Magno Pichardo on 08-20-2023 Clarity Refractometry automated (U) Clear Clear [facility] Urine culture routineOrdered By: Magno Pichardo on 08-20-2023 Bacteria identified Cx Nom (U) bacilli - [address] [facility] Urine glucose measurement by automated test strip (mass/volume)Ordered By: Magno Pichardo on 08-20-2023 Glucose Auto test strip (U) [Mass/Vol] Normal mg/dL Normal [facility] Urine hemoglobin detection b y automated test stripOrdered By: Magno Pichardo on 08-20-2023 Hemoglobin Auto test strip Ql (U) Negative Negative [facility] Urine leukocyte esterase det ection by automated test stripOrdered By: Magno Pichardo on 08-20-2023 Leukocyte esterase Auto test strip Ql (U) 3+ Negative [facility] Urobilinogen Auto test strip (U) [Mass/Vol]Ordered By: Magno Pichardo on 08-20-2023 Urobilinogen (U) [Mass/Vol] Normal mg/dL Normal [facility] WBC Auto (Bld) [#/Vol]Ordere d By: Magno Pichardo on 08-20-2023 WBC (Bld) [#/Vol] 6.6 10*3/uL 3.8-11.6 [facility] XR femur RT 2V*on 08-20-2023 XR femur RT 2V* [facility] [place] [address] XRay Report Signed Patient: Ashley Brown MR#: [id number] 1 : 1940 Acct:[id number] Age/Sex: 82 / F ADM Date: 08/20/23 Loc: [facility] Room: Type: [facility] Attending Dr: Magno Pichardo II, MD Copies to: Magno Pichardo MD Ordering Provider: Magno Pichardo MD Date of Service: 08/20/23 XR/XR tibia fibula RT 2V*: M17.11 - Unilateral primary osteoarthritis, right knee ([id number]) XR/XR femur RT 2V*: M17.11 - Unilateral primary osteoarthritis, right knee RIGHTfemur plain film COMPARISON: None HISTORY: Assessment for RIGHT total knee arthroplasty ACUTE FINDINGS: None DEGENERATIVE CHANGE: Extensive RIGHT medial compartment degenerative changes. Moderate hip degeneration. SOFT TISSUE FINDINGS: Unremarkable JOINT EFFUSION: None POSTOP CHANGES: Unremarkable LEFT knee arthroplasty BONE MINERALIZATION: Adequate XR/XR tibia fibula RT 2V* IMPRESSION: Extensive medial compartment degeneration of RIGHT knee. RIGHT tibia and fibula plain film COMPARISON: None Acute findings: None Degenerative change: Extensive RIGHT knee medial compartment degeneration. Mild ankle degeneration. Soft tissue findings: Unremarkable Joint effusion: None Postop changes: LEFT knee arthroplasty. IMPRESSION: Extensive RIGHT knee degeneration. Impression dictated by: Richard Oliver M.D.08/20/2023 4:40 PM Dictation Location: [place] [address] Transcribed By: [facility] 08/20/23 1640 Dictated By: Richard Oliver DO 08/20/23 1637 Signed By: 08/20/23 1640 Normal [facility] pH Auto test strip (U)Ordere d By: Magno Pichardo on 08-20-2023 pH (U) 6.0 [pH] 5.0-9.[address] [facility] B-Type Natriuretic Peptideon 08-01-2023 B-Type Natriuretic Peptide 949.0 pg/mL <=1800.0 pg/mL [place] Other Basic Metabolic Panelon Anion gap [Moles/Vol] 12.0 mmol/L No rt [employer] Other Calcium [Mass/Vol] 9.3792376 mg/dL Normal 8.5-10 .1 mg/dL [facility] Other Chloride [Moles/Vol] 101 mmol/L Normal 98-107 mmol/L [facility] Other CO2 [Moles/Vol] 26.41113265 mmol/L Normal 21.0-3 2.0 mmol/L [facility] Other Creatinine [Mass/Vol] 0.21523656 mg/dL Normal 0. 55-1.02 mg/dL [facility] Other Glucose [Mass/Vol] 86 mg/dL Normal 74-106 mg/dL [facility] Other Potassium [Moles/Vol] 3.57453871 mmol/L Normal 3 .5-5.1 mmol/L [place] Other Sodium [Moles/Vol] 136 mmol/L Normal 136-145 mmol/L [employer] Other Urea nitrogen [Mass/Vol] 16.5133147 mg/dL Normal 7.0-18.0 mg/dL [place] [employer] Other Urea nitrogen/Creatinine [Mass ratio] 17.2 mg/mg [facility] [employer] Other Basic Metabolic Panel see note Nor [employer] Other Basic Metabolic Panel 58 Low >=60 [facility] [employer] Other Basic Metabolic Panel >60 >=60 [facility] [employer] Other A1C with Estimated Average G luon 07-23-2023 Glucose [Mass/Vol] 111 mg/dL Normal [facility] Comment on above: Order Comment: Reaso n for Exam Primary osteoarthritis of right knee;Other insights manager (curren Result Comment: PERF ORMED BY: [place] [address] PATHOLOGIST PEDIATRIC PHYSICAL THERAPIST BUBBA MERIDA M.D. Performed By: #### B MP, CBC #### [facility] [address] HbA1c (Bld) [Mass fraction] 5.5 % Normal 4.3-5.6 [facility] Comment on above: Order Comment: Reaso n for Exam Primary osteoarthritis of right knee;Other nursing home (curren Result Comment: Incr eased risk for diabetes: 5.7 - 6.4 diabetes: >6.4 glycemic control for adults with diabetes: <7.0 Performed By: #### B MP, CBC #### [facility] [address] [place] [id number] [place] Albumin Levelon 07-23-2023 Albumin [Mass/Vol] 4.1 g/dL Normal 3.5-5.7 [facility] Comment on above: Order Comment: Reaso n for Exam Primary osteoarthritis of right knee;Other nursing home (curren Performed By: #### B MP, CBC #### [facility] [address] [place] [id number] [place] Albumin [Mass/volume] in Ser um or Plasma by Bromocresol green (BCG) dye binding methoOrdered By: Magno Pichardo on 07-23-2023 Albumin BCG dye [Mass/Vol] 4.1 g/dL 3.5-5.[address] [facility] Cotinine [Mass/volume] in Se rum or PlasmaOrdered By: Magno Pichardo on 07-23-2023 Cotinine [Mass/Vol] <1.0 ng/mL . [facility] Comment on above: This test was develo ped and its performance characteristicsdetermined by [employer]. It has not been cleared orapproved by the Food and Drug Administration.Cotinine levels greater than 20.0 are consistent with theuse of tobacco or tobacco cessation products.Performed at: [address] [id number] Director: Amilcar Baltazar MD, Phone: [phone] Glucose mean value [Mass/vol ume] in Blood Estimated from glycated hemoglobinOrdered By: Magno Pichardo on 07-23-2023 Average glucose Estimated from glycated hemoglobin (Bld) [Mass/Vol] 111 mg/dL 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 Performed By: #### B MP, CBC #### [address] Hemoglobin A1c percentageOrd ered By: Magno Pichardo on 07-23-2023 HbA1c (Bld) [Mass fraction] 5.5 % 4.3-5.[address] [facility] Comment on above: Increased risk for d iabetes: 5.7 - 6.4diabetes: >6.4glycemic control for adults with diabetes: <7.0 Hemoglobin [Mass/volume] in BloodOrdered By: Magno Pichardo on 01-24-2024 Hemoglobin (Bld) [Mass/Vol] 13.4 g/dL 11.8-15.[address] [facility] MRSA Cultureon 07-23-2023 MRSA Culture Reason for Exam Prim jairo osteoarthritis of right knee;Other insights manager (curren Nasal Reason for Exam: Primary osteoarthritis of right knee;Other nursing home (curren : Nasal No MRSA Isolated 2 Days PERFORMED BY: [address] [address] PATHOLOGIST PEDIATRIC PHYSICAL THERAPIST BUBBA MERIDA M.D. Normal [facility] Comment on above: Performed By: #### B MP, CBC #### [facility] [address] [place] [address] [place] Nicotine [Mass/volume] in Se rum or PlasmaOrdered By: Magno Pichardo on 07-23-2023 Nicotine [Mass/Vol] <1.0 ng/mL . [facility] Comment on above: This test was develo ped and its performance characteristicsdetermined by [facility]. It has not been cleared orapproved by the Food and Drug Administration.Nicotine levels greater than 2.0 are consistent with theuse of tobacco or tobacco cessation products. Nicotine/Cotinine Bloodon Cotinine, Blood <1.0 Normal . [facility] Comment on above: Order Comment: Reaso n for Exam Primary osteoarthritis of right knee;Other nursing home (curren Result Comment: This test was developed and its performance characteristics determined by [facility]. It has not been cleared or approved by the Food and Drug Administration. Cotinine levels greater than 20.0 are consistent with the use of tobacco or tobacco cessation products. Performed at: [facility] [address] [id number] Marker Machine: Amilcar Baltazar MD, Phone: [phone] PERFORMED BY: [address] [address] PATHOLOGIST PEDIATRIC PHYSICAL THERAPIST BUBBA MERIDA M.D. Performed By: #### B MP, CBC #### [facility] [address] [place] [address] [place] Nicotine, Blood <1.0 Normal . [facility] Comment on above: Order Comment: Reaso n for Exam Primary osteoarthritis of right knee;Other nursing home (curren Result Comment: This test was developed and its performance characteristics determined by [employer]. It has not been cleared or approved by the Food and Drug Administration. Nicotine levels greater than 2.0 are consistent with the use of tobacco or tobacco cessation products. Performed By: #### B MP, CBC #### [address] [address] Vitamin D 25 Hydroxy Totalon 07-23-2023 Vitamin D 25 Hydroxy Total 45.5 ng/mL Normal 30-100 [facility] Comment on above: Order Comment: Reaso n for Exam Primary osteoarthritis of right knee;Other insights manager (curren Result Comment: HEATH MIN D STATUS 25(OH)VITAMIN D RANGE (ng/mL) Deficient <20 Insufficient 20 to <30 Sufficient 30 to 100 Reference: Joanne Johnston, Jayjay ESPOSITO, et al. Evaluation,treatment, and prevention of vitamin D deficiency; an Endocrine Society clinical practice guideline. JCEM. 2010; 96(7):1911-30. PERFORMED BY: [place] [address] PATHOLOGIST PEDIATRIC PHYSICAL THERAPIST BUBBA MERIDA M.D. Performed By: #### B MP, CBC #### [address] Vitamin D+Metabolites [Mass/ volume] in Serum or PlasmaOrdered By: Magno Pichardo on 07-23-2023 Vitamin D+Metabolites [Mass/Vol] 45.5 ng/mL 30-[address] [facility] Comment on above: VITAMIN D STATUS 25( [place])VITAMIN D RANGE (ng/mL) Deficient <20 Insufficient 20 to <30Sufficient 30 to 100Reference: Joanne Johnston, Jayjay ESPOSITO, et al. Evaluation,treatment, and prevention of vitamin D deficiency; an Endocrine Society clinical practice guideline. JCEM. 2010; 96(7):1911-30. Wound methicillin resistant Staphylococcus aureus (MRSA) cultureOrdered By: Magno Pichardo on 07-23-2023 MRSA isol Org specific cx Ql (Unsp spec) No MRSA Isolated 2 Days [facility] MRSA isol Org specific cx Ql (Unsp spec) No MRSA Isolated 2 Days [facility] XR pelvis 1-2Von 05-21-2023 XR pelvis 1-2V [facility] [place] [address] [place] [id number] XRay Report Signed Patient: Ashley Brown MR#: [id number] 1 : 1940 Acct:[id number] Age/Sex: 82 / F ADM Date: 05/21/23 Loc: [facility] Room: Type: [facility] Attending Dr: Magno Pichardo II, MD Copies to: Magno Pichardo MD Ordering Provider: Magno Pichardo MD Date of Service: 05/21/23 XR/XR knee LT 3V - NOT FOR ER USE: Acute pain of left knee ([id number]) XR/XR pelvis 1-2V: Acute pain of left knee ([id number]) XR/XR knee RT 4V*: Acute pain of [...] view. Mild lateral subluxation. No joint effusion. Qfxw-it-gtpy contact the medial compartment degenerative change. Mild [...] Richard Oliver M.D.05/21/2023 2:01 PM Dictation Location: [place] [address] Transcribed By: [facility] 05/21/23 1401 Dictated By: Richard Oliver DO 05/21/23 1356 Signed By: 05/21/23 1401 Normal [facility] Office Visiton 05-14-2023 Follow-up visit [id number] Ashley Brown 1940 F Date Provider Department Center 05/14/2023 JEREMIAS JONES [facility] Family History Problem Relation Age of Onset Coronary artery disease Father Other Father Family Status - Relation Status Age at Father Level of Service:08002 DE OFFICE/OUTPATIENT ESTABLISHED LOW MDM 20-29 MIN Reason for Visit and Comments: Follow-up [436453] - 6 months Normal [facility] CBC AUTO DIFFon 10-31-2022 BASO # 0.1 103/ul Normal 0.0-0.1 [facility] Comment on above: Performed By: #### C BC #### [facility] [address] [place] [address] Dr. Charan Ariza Basophils/100 WBC (Bld) 1.7 % Normal 0.2-2.0 [facility] Comment on above: Performed By: #### C BC #### [facility] [address] [address] [address] Charan Ariza EO # 0.3 103/ul Normal 0.0-0.7 [facility] Comment on above: Performed By: #### C BC #### [facility] [address] [address] [address] Charan Ariza Eosinophils/100 WBC (Bld) 6.0 % Normal 0.9-7.0 [facility] Comment on above: Performed By: #### C BC #### [facility] [address] [place] [address] Dr. Charan Ariza Erythrocyte distribution width (RBC) [Ratio] 12.5 % Normal 11.0-15.0 [facility] Comment on above: Performed By: #### C BC #### [facility] [address] [place] [address] Dr. Charan Ariza Hematocrit (Bld) [Volume fraction] 42.6 % Normal 36.0-48.0 [facility] Comment on above: Performed By: #### C BC #### [facility] [address] [place] [address] Dr. Charan Ariza Hemoglobin (Bld) [Mass/Vol] 13.7 g/dL Normal 12.0-16.0 [facility] Comment on above: Performed By: #### C BC #### [facility] [address] [place] [address] Dr. Charan Ariza IG # 0.01 10e3/ul Normal 0.00-0.03 [facility] Comment on above: Performed By: #### C BC #### [facility] [address] [place] [address] Dr. Charan Ariza IG % 0.2 % Normal 0.0-0.5 [facility] Comment on above: Performed By: #### C BC #### [facility] [address] [place] [address] Dr. Charan Ariza LYMPH # 1.5 103/ul Normal 1.2-3.8 [facility] Comment on above: Performed By: #### C BC #### [facility] [address] [place] [address] Dr. Charan Ariza Lymphocytes/100 WBC (Bld) 28.9 % Normal 20.5-60.0 [facility] Comment on above: Performed By: #### C BC #### [facility] [address] [place] [address] Dr. Charan Ariza MANUAL DIFF REQ NO Normal [facility] Comment on above: Performed By: #### C BC #### [facility] [address] [place] [address] Dr. Charan Ariza MCH (RBC) [Entitic mass] 31.9 pg Normal 26.7-34.0 [facility] Comment on above: Performed By: #### C BC #### [facility] [address] [place] [address] Dr. Charan Ariza MCHC (RBC) [Mass/Vol] 32.2 g/dL Normal 29.9-35.2 [facility] Comment on above: Performed By: #### C BC #### [facility] [address] [place] [address] Dr. Charan Ariza MCV (RBC) [Entitic vol] 99.3 fL Critically high 81.0-99.0 [facility] Comment on above: Performed By: #### C BC #### [facility] [address] [place] [address] Dr. Charan Ariza MONO # 0.4 103/ul Normal 0.3-0.8 [facility] Comment on above: Performed By: #### C BC #### [facility] [address] [address] [address] Charan Ariza Monocytes/100 WBC (Bld) 7.8 % Normal 1.7-12.0 [facility] Comment on above: Performed By: #### C BC #### [facility] [address] [place] [address] Dr. Charan Ariza NEUT # 2.9 103/ul Normal 1.4-6.5 [facility] Comment on above: Performed By: #### C BC #### [facility] [address] [place] [address] Dr. Charan Ariza Neutrophils/100 WBC (Bld) 55.4 % Normal 43.0-75.0 [facility] Comment on above: Performed By: #### C BC #### [facility] [address] [place] [address] Dr. Charan Ariza Platelet mean volume (Bld) [Entitic vol] 10.4 fL Normal 9.5-13.5 [facility] Comment on above: Performed By: #### C BC #### [facility] [address] [place] [address] Dr. Charan Ariza PLT 326 103/ul Normal 150-450 [facility] Comment on above: Performed By: #### C BC #### [facility] [address] [place] [address] Dr. Chraan Ariza RBC 4.29 106/ul Normal 4.20-5.40 [facility] Comment on above: Performed By: #### C BC #### [facility] [address] [place] [address] Dr. Charan Ariza WBC 5.3 103/ul Normal 4.0-11.0 [facility] Comment on above: Performed By: #### C BC #### [facility] [address] [address] [address] Charan Ariza LIPID PROFILEon 10-31-2022 CHOL-HDL RATIO NORM SEE BELOW Normal [facility] Comment on above: Result Comment: 3.3 - 4.4 LOW RISK 4.4 - 7.1 AVERAGE RISK 7.1 - 11.0 MODERATE RISK >11.0 HIGH RISK Performed By: #### A LT, BMP, LIPID #### [facility] [address] [place] [address] [address] Charan Ariza Cholesterol [Mass/Vol] 180 mg/dL Normal <=200 [facility] Comment on above: Performed By: #### A LT, BMP, LIPID #### [facility] [address] [address] [address] Charan Ariza Cholesterol in HDL [Mass/Vol] 75 mg/dL Critically high 40-60 [facility] Comment on above: Performed By: #### A LT, BMP, LIPID #### [facility] [address] [address] [address] Charan Ariza Cholesterol in LDL [Mass/Vol] 77.4 mg/dL Normal [facility] Comment on above: Performed By: #### A LT, BMP, LIPID #### [facility] [address] [place], [place] [address] Dr. Charan Ariza Cholesterol.total/Cho lesterol in HDL [Mass ratio] 2.4 {ratio} Normal [facility] Comment on above: Performed By: #### A LT, BMP, LIPID #### [facility] [address] [place], [place] [address] Dr. Charan Ariza HDL NORMAL > or = 60 mg/dl - LO W CARDIOVASCULAR RISK <40 mg/dl - HIGH CARDIOVASCULAR RISK Normal [facility] Comment on above: Performed By: #### A LT, BMP, LIPID #### [facility] [address] [id number] Charan Ariza LDL CALC NORMAL SEE BELOW Normal [facility] Comment on above: Result Comment: <100 mg/dl OPTIMAL 100 - 129 mg/dl NEAR OR ABOVE OPTIMAL 130 - 159 mg/dl BORDERLINE HIGH 160 - 189 mg/dl HIGH >190 mg/dl VERY HIGH Performed By: #### A LT, BMP, LIPID #### [facility] [address] [address] [address] Charan Ariza Triglyceride [Mass/Vol] 138 mg/dL Normal <=150 [facility] Comment on above: Performed By: #### A LT, BMP, LIPID #### [facility] [address] [address] [address] Charan Ariza VLDL CALC 27.6 mg/dL Normal [facility] Comment on above: Performed By: #### A LT, BMP, LIPID #### [facility] [address] [place] [address] [address] Charan Ariza NM STRESS/REST MULTIon 10-31 NM STRESS/REST MULTI Patient: KEVIN BROWN Exam Date: 10/31/2022 : 1940 Gender:F Ordering : DR ODELL HARRINGTON D.O. Admission #: [id number] Family : Order #: [id number] CLICK HERE TO VIEW EXAM RADIOLOGY REPORT [...] was Non-diagnostic per attending physician Dr. Alex Harrington . For more details please see separate [...] MD on 10/31/2022 at 14:41 Normal [facility] PROF CHEM 8 (BAS METB)on Anion gap [Moles/Vol] 13.8 mmol/L Normal [facility] Comment on above: Performed By: #### A LT, BMP, LIPID #### [facility] [address] [place] [address] Dr. Charan Ariza Calcium [Mass/Vol] 9.2 mg/dL Normal 8.5-10.1 [facility] Comment on above: Performed By: #### A LT, BMP, LIPID #### [facility] [address] [place] [address] Dr. Charan Ariza Chloride [Moles/Vol] 105 mmol/L Normal 98-107 [facility] Comment on above: Performed By: #### A LT, BMP, LIPID #### [facility] [address] [address] [address] Charan Ariza CO2 [Moles/Vol] 25.4 mmol/L Normal 21.0-32.0 [facility] Comment on above: Performed By: #### A LT, BMP, LIPID #### [facility] [address] [place] [address] Dr. Charan Ariza Creatinine [Mass/Vol] 0.95 mg/dL Normal 0.55-1.02 [facility] Comment on above: Performed By: #### A LT, BMP, LIPID #### [facility] [address] [place] [address] [address] Charan Ariza EGFR-AF PANAMANIAN >60 Normal >=60 [facility] Comment on above: Performed By: #### A LT, BMP, LIPID #### [facility] [address] [place] [address] Dr. Charan Ariza EGFR-NON AF PANAMANIAN 57 mL/min/1.73m2 Critically low >=60 [facility] Comment on above: Performed By: #### A LT, BMP, LIPID #### [facility] [address] [address] [address] Charan Ariza Glucose [Mass/Vol] 93 mg/dL Normal 74-106 [facility] Comment on above: Performed By: #### A LT, BMP, LIPID #### [facility] [address] [place] [address] Dr. Charan Ariza Potassium [Moles/Vol] 4.2 mmol/L Normal 3.5-5.1 [facility] Comment on above: Performed By: #### A LT, BMP, LIPID #### [facility] [address] [place] [address] Dr. Charan Ariza Sodium [Moles/Vol] 140 mmol/L Normal 136-145 [facility] Comment on above: Performed By: #### A LT, BMP, LIPID #### [facility] [address] [place] [address] Dr. Charan Ariza Urea nitrogen [Mass/Vol] 19.0 mg/dL Critically high 7.0-18.0 [facility] Comment on above: Performed By: #### A LT, BMP, LIPID #### [facility] [address] [place] [address] Dr. Charan Ariza Urea nitrogen/Creatinine [Mass ratio] 20.0 mg/mg Normal [facility] Comment on above: Performed By: #### A LT, BMP, LIPID #### [facility] [address] [place] [address] Dr. Charan Ariza [facility] 10-31-2022 ALT [Catalytic activity/Vol] 29 U/L Normal 14-59 [facility] Comment on above: Performed By: #### A LT, BMP, LIPID #### [facility] [address] [place] [address] Dr. Charan Ariza ECHOCARDIO M/2D COMPLETEon 1 07-08-2021 ECHOCARDIO M/2D COMPLETE Patient: ASHLEY BROWN Exam Date: 05/08/2022 : 1940 Gender:F Ordering : DR JEREMIAS MCGUIRE M.D. Admission #: [id number] Family : ODELL HARRINGTON D.O. Order #: [id number] CLICK HERE TO VIEW EXAM ECHOCARDIOGRAM REPORT [...] 2.75 mm[Hg] Right Atrium Dictated by: Jeremias Mcguire M.D. on 05/08/2022 at 18:20 Approved by: Jeremias Mcguire M.D. on 05/08/2022 at 18:26 Normal [facility] XR LSPINE 2_3 VIEWSon 2021 XR [...] by: TARIK MONROE Date: 2022-01-25 17:51 Normal [facility] CHEST AND LATERALon 03-20-20 CHEST AND LATERAL [facility] Department of Radiology [address] [place] [id number] Patient Name: ASHLEY BROWN : 1940 Sex: F Age: Race: White Pt. Location: Patient Status: D Ordered Date: 03/20/2021 3:00:00 PM Completed Date: 03/20/2021 03:07 PM Requesting Provider: MANAS BOYD Attending Provider: MANAS BOYD Report Copy To: ODELL HARRINGTON Signs & Symptoms: R07.9 Chest pain, unspecified [...] improvement as detailed above Electronically signed: Lashonda Traore. Transcribed by: [id number], User Resident: Electronically Signed by: LASHONDA TRAORE @ 03/21/2021 09:38 AM Normal [facility] Comment on above: Order Comment: evalu ate Vital Signs Date Time Vital Sign Value Performing Clinician Facility 09-19-2023 11:38-0400 Body height 142.24 cm DO Odell Ball Work Phone: [facility] 09-19-2023 11:38-0400 Body mass index (BMI) [Ratio] 34 kg/m2 DO Odell Ball Work Phone: [facility] 09-19-2023 11:38-0400 Body weight 68.71 kg DO Odell Ball Work Phone: [facility] 09-19-2023 11:38-0400 Diastolic blood pressure 76 mm[Hg] DO Odell Ball Work Phone: [facility] 09-19-2023 11:38-0400 Systolic blood pressure 198 mm[Hg] DO Odlel Ball Work Phone: [facility] 09-15-2023 08:40-0400 Body temperature 97.8 [degF] DO Odell Ball Work Phone: [facility] 09-15-2023 08:40-0400 Diastolic blood pressure 78 mm[Hg] DO Odell Ball Work Phone: [facility] 09-15-2023 08:40-0400 Heart rate 70 /min DO Odell Ball Work Phone: [facility] 09-15-2023 08:40-0400 Respiratory rate 18 /min DO Odell Ball Work Phone: [facility] 09-15-2023 08:40-0400 SaO2% (BldA) [Mass fraction] 100 % DO Odell Ball Work Phone: [facility] 09-15-2023 08:40-0400 Systolic blood pressure 122 mm[Hg] DO Odell Ball Work Phone: [facility] 09-14-2023 06:00-0400 Body weight 70.8 kg DO Odell Ball Work Phone: [facility] 09-02-2023 15:11-0500 Body height 147.32 cm DO Odell Ball Work Phone: [facility] 09-02-2023 11:34-0500 Body temperature 97.4 [degF] DO Odell Ball Work Phone: [facility] 09-02-2023 11:34-0500 Diastolic blood pressure 65 mm[Hg] DO Odell Ball Work Phone: [facility] 09-02-2023 11:34-0500 Heart rate 62 /min DO Odell Ball Work Phone: [facility] 09-02-2023 11:34-0500 Respiratory rate 18 /min DO Odell Ball Work Phone: [facility] 09-02-2023 11:34-0500 SaO2% (BldA) [Mass fraction] 97 % DO Odell Ball Work Phone: [facility] 09-02-2023 11:34-0500 Systolic blood pressure 139 mm[Hg] DO Odell Ball Work Phone: [facility] 09-01-2023 13:46-0500 Inhaled oxygen flow rate 8 L/min DO Odell Ball Work Phone: [facility] 09-01-2023 11:37-0500 Body height 147.32 cm DO Odell Ball Work Phone: [facility] 09-01-2023 11:37-0500 Body mass index (BMI) [Ratio] 30.9 kg/m2 DO Odell Ball Work Phone: [facility] 09-01-2023 11:37-0500 Body weight 67 kg DO Odell Ball Work Phone: [facility] 08-20-2023 13:05-0500 Body height 147.32 cm DO Odell Ball Work Phone: [facility] 08-20-2023 13:05-0500 Body mass index (BMI) [Ratio] 30.7 kg/m2 DO Odell Ball Work Phone: [facility] 08-20-2023 13:05-0500 Body weight 66.67 kg DO Odell Ball Work Phone: [facility] 08-01-2023 11:00-0500 Body height 147.32 cm Odell Ball Other [facility] 08-01-2023 11:00-0500 Body mass index (BMI) [Ratio] 30.85 kg/m2 Odell Ball Other [employer] Other 08-01-2023 11:00-0500 Body weight 66.95 kg Odell Ball Other [facility] 08-01-2023 11:00-0500 Diastolic blood pressure 86 mm[Hg] Odell Ball Other [facility] 08-01-2023 11:00-0500 Respiratory rate 12 /min Odell Ball Other [facility] [employer] Other 08-01-2023 11:00-0500 Systolic blood pressure 135 mm[Hg] Odell Ball Other [facility] 07-09-2023 12:45-0500 Body height 147.32 cm Magno Marino II Other [facility] 07-09-2023 12:45-0500 Body mass index (BMI) [Ratio] 31.1 kg/m2 Magno Bayamon II Other [employer] Other 07-09-2023 12:45-0500 Body weight 67.5 kg Magno Bayamon II Other [employer] [facility] [employer] Other 07-09-2023 12:45-0500 Body weight 67.49 kg DO Odell Ball Work Phone: [facility] 06-06-2023 11:30-0500 Body height 147.32 cm Odell Ball Other [facility] 06-06-2023 11:30-0500 Body mass index (BMI) [Ratio] 29.88 kg/m2 Odell Ball Other [employer] Other 06-06-2023 11:30-0500 Body temperature 97.3 [degF] Odell Ball Other [employer] Other 06-06-2023 11:30-0500 Body weight 64.86 kg Odell Ball Other [facility] 06-06-2023 11:30-0500 Diastolic blood pressure 81 mm[Hg] Odell Ball Other [facility] 06-06-2023 11:30-0500 Respiratory rate 16 /min Odell Ball Other [employer] Other 06-06-2023 11:30-0500 Systolic blood pressure 138 mm[Hg] Odell Ball Other [facility] 05-21-2023 10:30-0500 Body height 147.32 cm Magno Bayamon II Other [employer] Other 05-21-2023 10:30-0500 Body mass index (BMI) [Ratio] 31.14 kg/m2 Magno Bayamon II Other [employer] Other 05-21-2023 10:30-0500 Body weight 67.59 kg Magno Marino II Other [employer] Other 05-20-2023 13:30-0500 Body height 147.32 cm Odell Ball Other [employer] Other 05-20-2023 13:30-0500 Body mass index (BMI) [Ratio] 31.64 kg/m2 Odell Ball Other [employer] Other 05-20-2023 13:30-0500 Body weight 68.68 kg Odell Ball Other [employer] Other 05-20-2023 13:30-0500 Diastolic blood pressure 77 mm[Hg] Odell Ball Other [employer] Other 05-20-2023 13:30-0500 Respiratory rate 12 /min Odell Ball Other [employer] Other 05-20-2023 13:30-0500 Systolic blood pressure 158 mm[Hg] Odell Ball Other [employer] Other 10-22-2022 15:00-0400 Body height 147.32 cm Odell Ball Other [employer] Other 10-22-2022 15:00-0400 Body mass index (BMI) [Ratio] 31.47 kg/m2 Odell Ball Other [employer] Other 10-22-2022 15:00-0400 Body weight 68.31 kg Odell Ball Other [employer] Other 10-22-2022 15:00-0400 Diastolic blood pressure 81 mm[Hg] Odell Ball Other [employer] Other 10-22-2022 15:00-0400 Respiratory rate 12 /min Odell Ball Other [employer] Other 10-22-2022 15:00-0400 Systolic blood pressure 150 mm[Hg] Odell Ball Other [employer] Other 07-24-2022 16:00-0500 Body height 147.32 cm Odell Ball Other [employer] Other 07-24-2022 16:00-0500 Body mass index (BMI) [Ratio] 31.81 kg/m2 Odell Ball Other [employer] Other 07-24-2022 16:00-0500 Body temperature 97 [degF] Odell Ball Other [facility] [employer] Other 07-24-2022 16:00-0500 Body weight 69.04 kg Odell Ball Other [employer] Other Encounters Encounter Date Encounter Type Care Provider Facility Start: 11-04-2023 End: 11-04-2023 ambulatory [facility] Start: 10-23-2023 End: 10-23-2023 ambulatory ANNABELLA A EUNICE Not Available Start: 10-08-2023 End: 10-08-2023 Patient encounter procedure DO Odell Ball Work Phone: [facility] Work Phone: Start: 10-08-2023 End: 10-08-2023 ambulatory Magno Pichardo II Facility:[facility] Start: 10-08-2023 End: 10-08-2023 ambulatory DO Oedll Ball Work Phone: [facility] Work Phone: Start: 10-08-2023 End: 10-08-2023 Patient encounter procedure DO Odell Ball Work Phone: [facility] Start: 09-19-2023 End: 09-19-2023 Patient encounter procedure DO Odell Ball Work Phone: [facility] Work Phone: Start: 09-17-2023 Non-patient / Non-visit DO Alex nolan Ball Work Phone: [facility] Work Phone: Start: 09-13-2023 End: 09-15-2023 Non-patient / Non-visit DO Odell Ball Work Phone: [facility] [facility] Work Phone: Start: 09-11-2023 End: 09-15-2023 Non-patient / Non-visit DO Odell Ball Work Phone: [facility] Work Phone: Start: 09-10-2023 End: 09-15-2023 Non-patient / Non-visit DO Odell Ball Work Phone: [facility] Rehab [facility] Spine Work Phone: Start: 09-03-2023 End: 09-15-2023 Non-patient / Non-visit DO Odell Ball Work Phone: [facility] Work Phone: Start: 09-03-2023 End: 09-15-2023 Non-patient / Non-visit DO Odell Ball Work Phone: [facility] Rehab [facility] Spine Work Phone: Start: 09-02-2023 End: 09-15-2023 Evaluation and management of inpatient Elijah Mayers Facility:[facility] Start: 09-02-2023 End: 09-15-2023 Evaluation and management of inpatient DO Odell Ball Work Phone: [facility] Work Phone: Start: 09-02-2023 Non-patient / Non-visit DO Alex nolan Ball Work Phone: [facility] Work Phone: Start: 09-01-2023 Non-patient / Non-visit DO Alex nolan Ball Work Phone: [facility] Work Phone: Start: 09-01-2023 End: 09-02-2023 Evaluation and management of inpatient Magno Pichardo II Facility:[facility] Start: 09-01-2023 Non-patient / Non-visit DO Alex nolan Ball Work Phone: [facility] Work Phone: Start: 08-25-2023 End: 08-25-2023 Patient encounter procedure DO Odell Ball Work Phone: [facility] Work Phone: Start: 08-22-2023 End: 08-22-2023 Patient encounter procedure DO Odell Ball Work Phone: [facility] Work Phone: Start: 08-20-2023 End: 08-20-2023 ambulatory Magno Pichardo II Facility:[facility] Start: 08-20-2023 End: 08-20-2023 ambulatory DO Odell Ball Work Phone: [facility] Work Phone: Start: 08-20-2023 End: 08-20-2023 Discharged Recurring DO Odell Ball Work Phone: [facility]-Physical Therapy [facility] [employer] [place] Start: 08-20-2023 Registered Recurring DO Benjam in Ball Work Phone: [facility] [place] Start: 08-20-2023 End: 08-20-2023 ambulatory DO Odell Ball Work Phone: [facility] Work Phone: Start: 08-20-2023 End: 08-20-2023 Patient encounter procedure DO Odell Ball Work Phone: [facility]-Pre-Surgical Testing Work Phone: Start: 08-20-2023 End: 08-20-2023 ambulatory DO Odell Ball Work Phone: [facility] Work Phone: Start: 08-20-2023 End: 08-20-2023 Patient encounter procedure DO Odell Ball [facility] Work Phone: Start: 08-01-2023 End: 08-01-2023 ambulatory Odell Harrington Other [employer] Other Start: 08-01-2023 Encounter for other preprocedural examination Odell Harrington [facility] Medical [facility] Start: 08-01-2023 Office outpatient vi sit 25 minutes Odell Harrington [facility] Start: 08-01-2023 Telephone encounter Odell Harrington [facility] Start: 08-01-2023 End: 08-01-2023 Patient encounter procedure DO Odell Harrington Work Phone: [facility]- Start: 07-23-2023 End: 07-23-2023 ambulatory Magno Pichardo II [employer] Other Start: 07-23-2023 Telephone encounter Magno Pichardo II [facility] Start: 07-23-2023 End: 07-23-2023 Patient encounter procedure DO Odell Harrington Work Phone: [facility] Work Phone: Start: 07-22-2023 End: 07-23-2023 ambulatory NBA MARCELO Not Available Start: 07-09-2023 End: 07-09-2023 ambulatory Magno Pichardo II Other [employer] Other Start: 07-09-2023 Office outpatient vi sit 15 minutes Magno Pichardo II [facility] Start: 07-09-2023 End: 07-09-2023 Patient encounter procedure DO Odell Harrington Work Phone: [facility] Work Phone: Start: 06-06-2023 End: 06-06-2023 ambulatory Odell Harrington Other [employer] Other Start: 06-06-2023 Office outpatient vi sit 15 minutes Odell Harrington [facility] Start: 06-06-2023 End: 06-06-2023 Patient encounter procedure DO Odell Harrington Work Phone: [facility] Medical [facility] Work Phone: Start: 05-26-2023 End: 05-26-2023 ambulatory Odell Harrington Other [employer] Other Start: 05-26-2023 Office outpatient vi sit 15 minutes Odell Harrington [facility] Start: 05-26-2023 Telephone encounter Odell WESLEY [facility] Start: 05-21-2023 Office outpatient ne w 45 minutes Magno Pichardo II [facility] Start: 05-21-2023 End: 05-21-2023 ambulatory Magno Pichardo II [employer] Other Start: 05-20-2023 End: 05-20-2023 ambulatory Odell Harrington Other [employer] Other Start: 05-20-2023 Office outpatient vi sit 25 minutes Odell Harrington [facility] Start: 05-20-2023 Telephone encounter Odell WESLEY [facility] Start: 05-14-2023 End: 05-14-2023 ambulatory [facility] Start: 11-29-[address] ODELL HARRINGTON [facility] ty:H1 Start: 11-19-2022 End: 11-19-2022 ambulatory NARENDRANATH LAKSHMIPATHY . Facility:[facility]1 Start: 11-05-2022 End: 11-06-2022 ambulatory NARENDRANATH LAKSHMIPATHY . Facility:[facility] Start: 10-31-2022 End: 11-01-[address] ODELL HARRINGTON Facility:[facility] Start: 10-22-2022 End: 10-22-2022 ambulatory Odell Harrington Other [employer] Other Start: 10-22-2022 Patient encounter procedure Odell Harrington [facility] Start: 10-08-2022 End: 10-08-2022 ambulatory Odell Harrington Other [employer] Other Start: 10-08-2022 Office outpatient vi sit 15 minutes Odell Harrington [facility] Start: 07-24-2022 End: 07-24-2022 ambulatory Odell Harrington Other [employer] Other Start: 07-24-2022 Office outpatient vi sit 25 minutes Odell Harrington [facility] Start: 07-12-2022 Patient encounter status Odell Harrington Other [employer] Other Start: 05-08-2022 End: 05-09-2022 ambulatory JEREMIAS MCGUIRE Facility:[facility]1 Start: 02-04-2022 End: 03-20-[address] ODELL HARRINGTON Facility:[facility] Start: 01-25-2022 End: 01-26-[address] ODELL HARRINGTON Facility:[facility] Procedures Date Procedure Procedure Detail Performing Clinician Start: 10-08-2023 X-ray of right knee DO Odell [employer] Work Phone: Start: 09-05-2023 Duplex scan of lower limb veins DO Odell Harrington Work Phone: Start: 08-20-2023 Antibody screen Ace n [facility] Comment on above: Order Comment: Date of Surgery: [id number] Result Comment: PERF ORMED BY: [facility] [address] [place] [address] PATHOLOGIST PEDIATRIC PHYSICAL THERAPIST BUBBA MERIDA M.D. Start: 08-20-2023 Urine culture DO Eusebio in [employer] Work Phone: Start: 08-20-2023 Plain X-ray of right femur DO Odell Harrington Work Phone: Start: 08-20-2023 Plain X-ray of right tibia and right fibula DO Odell [employer] Work Phone: Start: 07-23-2023 Methicillin resistan t Staphylococcus aureus culture DO Odell [employer] Work Phone: 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 DO Odell [employer] Work Phone: Plan of Treatment Date Care Activity Detail Author Start: 09-15-[address] [facility] Start: 09-02-2023 Hospital admission [facility] Start: 09-02-2023 Referral to clinical monorail charger operator [facility] Start: 09-02-[address] [facility] Start: 09-01-2023 Hospital admission [facility] Start: 09-01-2023 Referral to clinical monorail charger operator [facility] Start: 09-01-2023 Referral to rehabilitation physician [facility] Start: 08-20-[address] [facility] Start: 08-20-2023 Bacteria identified in Urine by Culture [facility] Start: 08-20-2023 Urine culture Urine Culture [facility] Comprehensive metabo lic 2000 panel - Serum or Plasma [facility] Patient Education Total Knee Rep lacement (DC) [facility] Work Phone: Patient referral [facility] Work Phone: [facility] Emergency Immunizations Immunization Date Immunization Notes Care Provider Fa bridget 05-14-2023 RSV, preF3, adj, pf DO Farhad delvin Harrington Work Phone: [facility] 04-30-2023 Flu Shot - Documentation Purposes Only Odell Harrington Other [facility] 04-23-2022 influenza, high dose seasonal, preservative-free Odell Harrington Other [employer] [facility] [employer] Other 04-23-2022 Influenza vaccine, quadrivalent, adjuvanted DO Odell Harrington Work Phone: [facility] 04-23-2022 influenza virus vaccine, split virus (incl. purified surface antigen) Odell Harrington Other [employer] Other 04-23-2022 influenza virus vaccine, unspecified formulation DO Odell Harrington Work Phone: [facility] 04-05-2021 COVID-19 Vaccine Pfi zer - Documentation Purposes Only Odell Harrington Other [facility] 03-26-2021 Fluzone QIV High-Dos e 65YR+ DO Odell Harrington Work Phone: [facility] 03-26-2021 influenza virus vaccine, split virus (incl. purified surface antigen) Odell Harrington Other [facility] [employer] Other 03-26-2021 influenza virus vaccine, unspecified formulation DO Odell Harrington Work Phone: [facility] 08-16-2020 COVID-19 Vaccine Pfi zer - Documentation Purposes Only Odell Harrington Other [facility] 07-26-2020 COVID-19 Vaccine Moderna - Documentation Purposes Only Odell Harrington Other [facility] 07-26-2020 COVID-19 Vaccine Pfi zer - Documentation Purposes Only Odell Harrington Other [facility] 03-16-2020 influenza virus vaccine, split virus (incl. purified surface antigen) Odell Harrington Other [facility] [employer] Other 03-16-2020 influenza virus vaccine, unspecified formulation DO Yun Yun Work Phone: [facility] 03-15-2020 influenza, injectabl e, quadrivalent, preservative free DO Yun Yun Work Phone: [facility] 04-16-2019 influenza virus vaccine, split virus (incl. purified surface antigen) Odell Harrington Other [facility] [employer] Other 04-16-2019 influenza virus vaccine, unspecified formulation DO Yun Yun Work Phone: [facility] 04-20-2018 influenza virus vaccine, split virus (incl. purified surface antigen) Odell Harrington Other [facility] [employer] Other 04-20-2018 influenza virus vaccine, unspecified formulation DO Yun Yun Work Phone: [facility] 04-20-2018 Seasonal trivalent influenza vaccine, adjuvanted, preservative free DO Odell [employer] Work Phone: [facility] 05-21-2017 influenza virus vaccine, split virus (incl. purified surface antigen) Odell Harrington Other [facility] [employer] Other 05-21-2017 influenza virus vaccine, unspecified formulation DO Odell [employer] Work Phone: [facility] 05-21-2017 influenza, high dose seasonal, preservative-free DO Odell Harrington Work Phone: [facility] 04-23-2016 influenza virus vaccine, split virus (incl. purified surface antigen) Odell [employer] Other [facility] [employer] Other 04-23-2016 influenza virus vaccine, unspecified formulation DO Odell Harrington Work Phone: [facility] 04-23-2016 influenza, high dose seasonal, preservative-free DO Odell Harrington Work Phone: [facility] 05-11-2015 pneumococcal conjuga te vaccine, 13 valent Odell [employer] Other [facility] 04-27-2015 tetanus and diphther ia toxoids, adsorbed, preservative free, for adult use (5 Lf of tetanus toxoid and 2 Lf of diphtheria toxoid) Odell [employer] Other [facility] 04-12-2015 influenza, injectabl e, quadrivalent, preservative free DO Odell Harrington Work Phone: [facility] 04-12-2015 pneumococcal polysaccharide vaccine, 23 valent Odell [employer] Other [facility] 04-08-2014 tetanus and diphther ia toxoids, adsorbed, preservative free, for adult use (5 Lf of tetanus toxoid and 2 Lf of diphtheria toxoid) Odell [employer] Other [facility] 01-05-2014 zoster vaccine, live DO Noemí jones [employer] Work Phone: [facility] 05-10-2013 tetanus and diphther ia toxoids, adsorbed, preservative free, for adult use (5 Lf of tetanus toxoid and 2 Lf of diphtheria toxoid) Odell [employer] Other [facility] 03-04-2012 tetanus and diphther ia toxoids, adsorbed, preservative free, for adult use (5 Lf of tetanus toxoid and 2 Lf of diphtheria toxoid) Odell Harrington Other [facility] 05-11-2008 pneumococcal polysaccharide vaccine, 23 valent Odell Harrington Other [facility] 01-21-2000 tetanus toxoid, adsorbed DO Odell Harrington Work Phone: [facility] Payers Date Payer Category Payer Self-pay 1957 Medicare [id number] 2.1 [id number] 1959 Private Health Insurance [facility] [id number] 1940 Unknown [id number] 2.16.84 [id number] 1940 Unknown [id number] 2.16.84 [id number] 1942 Unknown [id number] 2.16.84 [id number] 1942 Unknown [id number] 2.16.84 [id number] 1942 Unknown [id number] 2.16.84 [id number] 1942 Unknown [id number] 2.16.84 [id number] 1942 Unknown [id number] 2.16.84 [id number] 1942 Unknown [id number] 2.16.84 [id number] 1942 Unknown [id number] 2.16.84 [id number] 1942 Unknown [id number] 2.16.84 [id number] 1942 Unknown [id number] 2.16.84 [id number] Unknown [id number] 2.16.8 [id number] Unknown [id number] 2.16.8 [id number] Social History Date Type Detail Facility Sex Assigned At [employer] Other Start: 08-20-2023 End: 09-03-2023 Tobacco smoking status NHIS Never smoked tobacco (finding) [facility] Start: 1940 Sex Assigned At Female [facility] NEGATED: Highlighted row [facility] Medical Equipment Procedure Code Equipment Code Equipment Origin al Text Equipment Identifier Dates Arthroplasty, knee, total, minimally invasive Orthopaedic cement, non-medicated [id number] FDA Start: 09-01-2023 Arthroplasty, knee, total, minimally invasive Uncoated knee femur prosthesis [id number] FDA Start: 09-01-2023 Arthroplasty, knee, total, minimally invasive Tibial insert [id number] FDA Start: 09-01-2023 Arthroplasty, knee, total, minimally invasive Polyethylene patella prosthesis ()[id number] FDA Start: 09-01-2023 Arthroplasty, knee, total, minimally invasive Knee stem [id number] FDA Start: 09-01-2023 Arthroplasty, knee, total, minimally invasive Uncoated knee tibia prosthesis, metallic [id number] FDA Start: 09-01-2023 Goals Date Patient Goal Desired Activity /State Functional Status Date Assessment Result Facility 09-15-2023 Functional status Patient at Baseline [facility] Work Phone: Mental Status Date Assessment Result Facility 09-15-2023 Cognitive function Cognitive Sta tus Patient at Baseline [facility] Work Phone: Clinical Notes 07-24-2022 to 11-04-2023 Note Date & Type Note Facility 11-04-2023 Note Patient here for 6 m o follow up CAD, PAF, hypertension, carotid artery stenosis, and chronic systolic heart failure. Had labs in Jul 2023, prior to knee surgery in August. C/o daily chest pain, usually in the evenings. Says DENSON is a little bit worse, but she attributes this to her recent surgery. Says she was getting dizzy on 20mg of atorvastatin daily, so she now cuts them in half. Dizziness has resolved. Review of Systems Cardiovascular: Positive for chest pain, dyspnea on exertion (intermittent) and leg swelling (RLE). Respiratory: Positive for cough. Musculoskeletal: Positive for arthritis and joint pain. Neurological: Positive for light-headedness. All other systems reviewed and are negative. [facility] 09-15-2023 Discharge summary Note Date/Time September 15, 2023 12:34pm [facility] [address] [place] [address] Discharge Summary Signed Patient: Ashley Brown MR#: [id number] : 1940 Acct:[id number] Age/Sex: 82 / F Adm Date: 4 Loc: Room: 0G1955-[address]: Elijah Mayers MD Copies to: DO Elijah Wheat MD Elena Turovskaya, [employer]~ Providers Date of Discharge: 09/15/23 Discharging Provider: Heidi Mesa Primary Care Provider: Odell Harrington Consults: 09/02/23 14:57 Consult to Adult Hospitalist Routine Comment: Consulting Provider: Community Hospitalist (Adult) Reason For Exam: htn Has Provider Been Notified: Yes Date of Notification: 09/02/23 Time of Notification: 15:01 Consult to Dietitian Routine Comment: Reason for Consult: Other Other Reason: rehab admit Consult to Occupational Therapy Routine Comment: Physician Instructions: Consult to OT for:: Evaluation and Treat Consult to Physical Therapy Routine Comment: Physician Instructions: Consult to PT for:: Evaluation and Treat Speech Admit Screen Routine Comment: Discharge Diagnosis (1) Status post total right knee replacement: Final Diagnosis Final Discharge Diagnosis: As above Summary Hospital Course Hospital course: Ms. Brown is a 82 year old female with PMH of of paroxysmal A-fib, GERD, arthritis, hypertension, hyperlipidemia, CAD, CABG, who was admitted to acute patient rehab with functional impairments in the setting of total right knee arthroplasty. She presented to the hospital on 09/01/2023 for an elective right knee replacementafter failing conservative treatment. The above robotic assisted procedure was performed by Dr. Pichardo without major complication. Patient can weight-bear as tolerated to the operative extremity. Aspirin 81 mg twice daily x 35 days for DVT prophylaxis. Rehab course was mostly uncomplicated. She did have a few episodes of orthostatic hypotension which resolved without any treatment. She was seen she was seen by orthopedic surgery prior to discharge, wound VAC dressing and Zipline dressing were removed. She is to follow-up with with them in outpatient settings.. She progressed well in therapy. At discharge patient is ambulatory functional distances with a straight cane or W/O assistive device,CGA. Independent with transfers and bed mobility. Patient will be discharged [facility] with [facility]. No additional DME is required. Family will transport. Condition Condition at Discharge: Stable Time Spent with Patient Time spent providing/coordinating discharge services (# min): 35 Specific discharge activities: Total time spent discharging this patient > 30 minutes Greater than 30 minutes spent preparing the patient for discharge including the following: Discussion of the hospital stay with patient and/or family Instructions for continuing care to all relevant caregivers Reviewing discharge plan with medical staff, social work, care management, and nursing staff Supervision of discharge paperwork, medication reconciliation, prescriptions, and outpatient appointments Prescribed necessary DME at discharge when indicated Exam Physical Exam Vital Signs: Temp Pulse Resp BP Pulse Ox O2 Del Method 97.8 F 70 18 122/78 100 Room Air 09/15/23 08:40 09/15/23 08:40 09/15/23 08:40 09/15/23 08:40 09/15/23 08:40 09/15/23 08:40 Narrative: General: Awake, alert, oriented x3 HENT: Normal to inspection, normocephalic, atraumatic Eyes: PERRL, normal conjunctiva and sclera Neck: Normal ROM, normal visual inspection. Trachea midline. Cardio: Regular heart rate and rhythm Respiratory: Clear to auscultation bilaterally. Normal respiratory effort. No respiratory distress. GI: Abdomen soft, nontender, nondistended, active bowel sounds x4 quadrants Neuro: CN II-XII intact. Strength 5/5, equal bilaterally Extremities: Right knee wound VAC dressing intact. No drainage in the canister or tubing. Diffuse ecchymosis to the extremity. Surrounding tissue is soft andnontender to palpation. Psych: Mood and affect appropriate. Normal speech. Discharge Plan Discharge Plan Patient Disposition: Home Health [facility] Activity: Ambulate as Tolerated and May Shower Diet: Regular Additional Instructions: -Code Status: Full Code. -Diet: Regular -Activity: Weight bearing as tolerated. May shower, do not scrub incision, no submerging incision (tub baths/pools/hottubs) for at least 4 weeks postoperatively. -Apply TEDs hose compression stockings or maru wraps to legs in the morning and off at bedtime to help with swelling. -Right knee incision: may apply a dry sterile dressing and change daily and as needed for protection, if no drainage is present the incision may be left open to air. Steri-Strips will fall off on their own. -Right palma skin tear: may apply bandaid and change daily and as needed. Your Home Health agency is [facility] ( ). They will contact you after discharge to schedule a day/time to meet with you at [facility] to establish care. You have been given prescriptions for new and/or needed medications. These prescriptions are for a one-time fill only, with no re-fills. For further re-fills going forward, you will need to address with your PCP at your follow up appointment, or by calling your PCP?s office prior to the prescriptions running out. NOTE: please call within 24 hours if you need to cancel or change any follow up appointments. Arrive early to all follow up appointments, bring current medication list, photo ID and any insurance card(s) to all future follow ups (listed below). Please remember to wear a mask to all appointments. If you develop any symptoms (cough, fever/chills, shortness of breath, sore throat, nausea/vomiting, etc.) please contact your provider's office to inform them prior to your appointment. Instructions: Total Knee Replacement (DC) Prescriptions: New oxycodone 5 mg Tablet 5 mg PO Q4H PRN (Reason: Pain Scale 6 - 10) 7 Days Qty: 35 0RF alprazolam 0.25 mg Tablet 0.25 mg PO Q6H PRN (Reason: Anxiety) Qty: 0 0RF pantoprazole 40 mg Tablet,Delayed Release (Dr/Ec) 40 mg PO DAILY 30 Days Qty: 30 0RF loratadine 10 mg Tablet 10 mg PO QAM 30 Days Qty: 30 0RF Continued vitamin E 268 mg (400 unit) capsule 268 mg PO DAILY acetaminophen 500 mg Tablet 1,000 mg PO Q8H Qty: 0 0RF aspirin 81 mg Tablet,Delayed Release (Dr/Ec) 81 mg PO BID 22 Days Qty: 44 0RF losartan 25 mg tablet 25 mg PO QAM 30 Days Qty: 30 0RF metoprolol succinate 25 mg tablet extended release 24 hr 25 mg PO QPM 30 Days Qty: 30 0RF diclofenac sodium 1 % gel 2 g topical QID 30 Days Qty: 100 0RF Rx Instructions: apply to single elbow, wrist or hand; for hand includes palm/fingers/back of hand cholecalciferol (vitamin D3) 50 mcg (2,000 unit) capsule 50 mcg PO DAILY 30 Days Qty: 30 0RF atorvastatin 20 mg tablet 10 mg PO QHS Women's 50 Plus Multivitamin 400 mcg-500 mg calcium-20 mcg tablet 1 tab PO DAILY zolpidem 10 mg tablet 10 mg PO QHS Changed prednisone 10 mg Tablet 30 mg PO DAILY Qty: 90 0RF Discontinued sennosides-docusate sodium 8.6-50 mg Tablet 2 tab PO DAILY Qty: 0 0RF tramadol 50 mg Tablet 50 mg PO Q6H PRN (Reason: Pain Scale 1 - 5) Qty: 0 0RF cefadroxil 500 mg Capsule 500 mg PO BID Qty: 0 0RF oxycodone 5 mg Tablet 5 mg PO Q4H PRN (Reason: Pain Scale 6 - 10) Qty: 0 0RF aspirin [Adult Aspirin Regimen] 81 mg tablet,delayed release (DR/EC) 81 mg PO DAILY Hold Instructions: Resume on 10/02/23. sennosides-docusate sodium [Senokot-S] 8.6-50 mg tablet 2 tab PO daily 30 Days Qty: 60 0RF Rx Instructions: DOT NOT RECONCILE UNTIL DOS:09/01/2023 MED TO BED cefadroxil 500 mg capsule 500 mg PO Q12H 7 Days Qty: 14 0RF Rx Instructions: DOT NOT RECONCILE UNTIL DOS:09/01/2023 MED TO BED polyethylene glycol 3350 [Miralax] 17 gram/dose powder 17 g PO daily 7 Days Qty: 7 0RF Rx Instructions: 1 packed mixed with 8 ounces of fluid. DOT NOT RECONCILE UNTIL DOS:09/01/2023 MED TO BED tramadol 50 mg tablet 50 mg PO Q6H PRN (Reason: Pain) 10 Days Qty: 40 0RF Rx Instructions: DOT NOT RECONCILE UNTIL DOS:09/01/2023 MED TO BED oxycodone 5 mg tablet 5 mg PO Q4H PRN (Reason: Pain) 7 Days Qty: 42 0RF Rx Instructions: DOT NOT RECONCILE UNTIL DOS:09/01/2023 MED TO BED ondansetron HCl 4 mg tablet 4 mg PO Q8H PRN (Reason: Nausea) Qty: 9 0RF Rx Instructions: DOT NOT RECONCILE UNTIL DOS:09/01/2023 MED TO BED prednisone 10 mg tablet 10 mg PO daily 10 Days Qty: 10 0RF Rx Instructions: DOT NOT RECONCILE UNTIL DOS:09/01/2023 MED TO BED aspirin 81 mg tablet,delayed release (DR/EC) 81 mg PO BID 35 Days Qty: 70 0RF Rx Instructions: DOT NOT RECONCILE UNTIL DOS:09/01/2023 MED TO BED alprazolam 0.25 mg tablet 0.25 mg PO BID Other Ambulatory Orders: Initiate Home Health (Routine) Timeframe: [id number] Location: Determined by Patient Ordered By: Elijah Mayers Follow Up: Odell Harrington DO [Primary Care Provider] - 09/19/23 11:30 am (PCP) Magno Pichardo II, MD [Active Staff] - 10/08/23 1:00 pm (Orthopedic Surgeon) Elijah Mayers MD [Active Staff] - (Follow up with rehab physician as needed) <Statement entered by Elijah Mayers MD - 09/15/23 13:10> This documentation has been reviewed and approved. Documented By: Heidi Mesa APRN 09/15/23 1 231 Signed By: <Electronically signed by CHASITY Mesa> 09/15/23 1244 <Electronically signed by Elijah Mayers MD> 09/15/23 1311 [facility] Work Phone: 1(970) 154-859603-18-2024 Progress note Author Magno Pichardo [facility] September 15, 2023 7:54am Note Date/Time September 15, 2023 7:5 4am [facility] [address] [place] [address] Orthopedic Progress Note Signed Patient: Ashley Brown MR#: [id number] : 1940 Acct:[id number] Age/Sex: 82 / F Adm Date: 4 Loc: Room: 7Q0683-3 Type: ADM IN Attending Dr: Elijah Mayers MD Copies to: ~ Date of Service: 09/15/2023 Subjective Subjective Interval History: Patient resting comfortably in bed this morning. She reports that she can be going home later today. Nursing reports no acute events overnight. Denies chest pain, shortness of breath, or calf pain. Exam Physical Exam Vital Signs: Temp Pulse Resp BP Pulse Ox O2 Del Method 97.8 F 62 16 161/81 H 98 Room Air 09/15/23 05:00 09/15/23 05:00 09/15/23 05:00 09/15/23 05:00 09/15/23 05:00 09/15/23 05:00 Narrative: Right knee Zipline in place. Dressings in place to her pin sites. Foot is warmand well perfused. Sensation intact to light touch. Wiggles their toes and ankleup/down. Nontender to palpation to calf. Full extension to approximate 105 degrees painlessly. [facility]PATIENT [facility] Ambulation: 1 Yes, Ambulation Day of Surgery or 4 hours from PACU discharge [facility] Discharge Exclusion: 1 Yes (Acute inpatient rehab) Assessment / Plan Assessment and plan (1) Status post total right knee replacement: Code(s): Z96.651 - Presence of right artificial knee joint Plan POD 14 s/p R TKA 1. Pain control 2. DVT prophylaxis: ALVARO Hose bilaterally, SCDs bilaterally, and aspirin 81 mg twice daily x 35 days postop 3. Perioperative antibiotics completed 4. PT/OT: WBAT right lower extremity 5. Appreciate rehab team assistance with recovery 6. PACU x-rays look good 7. Hemoglobin stable 8. Today's Plan: Zipline removed. Steri-Strips should be applied to incision. Sutures should be removed from distal pin sites and Steri-Strips applied. Band-Aids may be applied to the skin tears on the leg. Steri-Strips are to be left in place and today fall off on their own. Patient can still shower. She shouldavoid any submersion in water until at least 4 weeks postoperatively. 9. Disposition: Likely home today. Our office will call her in 1 week to make sure that she has set up outpatient physical therapy. She will start with home health physical therapy. Documented By: Magno Pichardo MD 09/15/23 07 52 Signed By: <Electronically signed by Magno Pichardo MD> 09/15/23 0753 [facility] Work Phone: 1(163) 542-576003-17-2024 Progress note Author Patricia Mayberry [facility] September 14, 2023 5:41pm Note Date/Time September 14, 2023 5:3 9pm [facility] [address] [place] [address] Hospitalist Progress Note Signed Patient: Ashley Brown MR#: [id number] : 1940 Acct:[id number] Age/Sex: 82 / F Adm Date: 4 Loc: Room: [address] [place] [address] Type: ADM IN Attending Dr: Elijah Mayers MD Copies to: ~ Date of Service: 09/13/2023 Subjective Subjective Narrative: Patient seen and examined on follow-up. He continues to work with therapy. Orthopedics did follow-up with the patient while on rehab notes are reviewed. She endorses postoperative knee discomfort as anticipated. Vitals are reviewed she is afebrile with no hypoxia. BPs intermittently elevated 150s pain could becontributory. Labs are reviewed last from September 07 hemoglobin 11.3 which is stable postop, BMP with normal electrolytes and renal function. Exam Physical Exam Vital Signs: Temp Pulse Resp BP Pulse Ox O2 Del Method 98.3 F 65 18 130/84 100 Room Air 09/13/23 08:30 09/13/23 08:30 09/13/23 08:30 09/13/23 08:30 09/13/23 08:30 09/13/23 09:26 Narrative: CONST-alert, awake resting comfortably in bed CARDIAC-normal rate, regular rhythm, normal S1 & S2. PULM-diminished without wheeze or rhonchi, RA, no accessory muscle use or cough noted ABD - Soft. Bowel sounds are normal. No distention No tenderness EXTREM-no edema BLE calves nontender. Right knee tenderness SKIN-incision site well-approximated no drainage Objective Lab Results 09/08/23 09:52 09/08/23 09:52 Meds Allergies and Active Meds Allergies oxycodone [Percocet] Allergy (Unknown, Verified 08/25/23 10:52) Vomiting sulfamethoxazole [Bactrim] Allergy (Unknown, Verified 08/25/23 10:52) Unknown Reaction trimethoprim [Bactrim] Allergy (Unknown, Verified 08/25/23 10:52) Unknown Reaction acetaminophen [From Vicodin] Allergy (Verified 09/02/23 15:58) Vomiting hydrocodone [From Vicodin] Allergy (Verified 09/02/23 15:58) Vomiting Rocuronium [place] Allergy (Unknown, Uncoded 08/20/23 14:19) breathing difficulty Active Meds: Active Medications Generic Name Dose Route Start Last Admin Trade Name Freq PRN Reason Stop Dose Admin Acetaminophen 1,000 mg 09/02/23 15:15 09/13/23 08:31 Acetaminophen 500 Mg Tablet PO 09/01/24 15:14 1,000 mg Q8H ERNIE Administration Al Hydrox/Mg Hydrox/Simethicone 30 ml 09/02/23 14:57 09/03/23 00:58 Mag Hydrox/Al Hydrox/Simeth 30 Ml Udc PO 09/01/24 14:56 30 ml Q4H PRN Administration Indigestion Alprazolam 0.25 mg 09/03/23 10:30 09/12/23 22:14 Alprazolam 0.25 Mg Tablet PO 03/01/24 10:29 0.25 mg Q6H PRN Administration Anxiety Aspirin 81 mg 09/02/23 21:00 09/03/23 09:08 Aspirin 81 Mg Tablet. PO 09/01/24 20:59 81 mg BID ERNIE Administration Atorvastatin Calcium 10 mg 09/02/23 22:00 09/02/23 22:50 Atorvastatin 10 Mg Tablet PO 09/01/24 21:59 10 mg QHS ERNIE Administration Bisacodyl 10 mg 09/02/23 14:57 Bisacodyl 10 Mg Supp.Rect DE 09/01/24 14:56 DAILY PRN Constipation Diclofenac Sodium 2 gm 09/02/23 18:00 09/13/23 08:35 Diclofenac Sodium 1% Gel 100 Gm Tube TOPICAL 09/01/24 17:59 2 gm QID ERNIE Administration Docusate Sodium 283 mg 09/02/23 14:57 Docusate Enema 283 Mg/5 Ml Enema DE 09/01/24 14:56 DAILY PRN Constipation Docusate Sodium 100 mg 09/05/23 14:06 Docusate 100 Mg Capsule PO 09/03/24 08:59 BID PRN Constipation Enoxaparin Sodium 40 mg 09/03/23 10:35 09/13/23 08:32 Enoxaparin 40 Mg/0.4 Ml Syringe SUBCUT 09/02/24 10:34 40 mg DAILY@1000 ERNIE Administration Home Med 1 each 09/02/23 23:30 Home Meds Kept In Pharmacy [facility] 09/01/24 23:29 PRN PRN zz.Pharmacy Note Lactulose 30 gm 09/02/23 14:57 Lactulose 20 Gm/30 Ml Udc PO 09/01/24 14:56 DAILY PRN Constipation Loratadine 10 mg 09/07/23 09:00 09/13/23 08:31 Loratadine 10 Mg Tablet PO 09/06/24 08:59 10 mg QAM ERNIE Administration Losartan Potassium 25 mg 09/03/23 09:00 09/13/23 08:31 Losartan 25 Mg Tablet PO 09/02/24 08:59 25 mg QAM ERNIE Administration Metoprolol Succinate 25 mg 09/02/23 21:00 09/12/23 22:14 Metoprolol Succinate 25 Mg Tab.Er.24h PO 09/01/24 20:59 25 mg QPM ERNIE Administration Multivitamins 1 tab 09/03/23 09:00 09/13/23 08:31 Multivitamin 1 Tab Tablet PO 09/02/24 08:59 1 tab DAILY ERNIE Administration Ondansetron HCl 4 mg 09/03/23 00:58 09/03/23 06:18 Ondansetron Odt 4 Mg Tab.Rapdis PO 09/01/24 15:23 4 mg Q6H PRN Administration Nausea Oxycodone HCl 5 mg 09/02/23 15:13 09/13/23 06:43 Oxycodone Ir 5 Mg Tablet PO 5 mg Q4H PRN Administration Pain Scale 6 - 10 Pantoprazole Sodium 40 mg 09/04/23 09:00 09/13/23 08:31 Pantoprazole 40 Mg Tablet.Dr PO 09/03/24 08:59 40 mg DAILY ERNIE Administration Polyethylene Glycol 17 gm 09/05/23 14:06 Polyethylene Glycol 3350 17 Gm Powd.Pack PO 09/02/24 08:59 DAILY PRN Constipation Prednisone 10 mg 09/03/23 09:00 09/13/23 08:31 Prednisone 10 Mg Tablet PO 09/02/24 08:59 10 mg DAILY ERNIE Administration Sennosides 2 tab 09/03/23 12:00 Sennosides 8.6 Mg Tablet PO 09/02/24 11:59 DAILY@12 PRN If no BM in 2 days Sodium Chloride 0 ml 09/02/23 14:57 Sodium Chloride 0.9 % 10 Ml Syringe IV-PUSH 09/01/24 14:56 PRN PRN Flush Vitamin D 50 mcg 09/03/23 09:00 09/13/23 08:31 Cholecalciferol 25 Mcg (1,000 Units) Tablet PO 09/02/24 08:59 50 mcg DAILY ERNIE Administration Vitamin E 180 mg 09/03/23 09:00 09/13/23 08:31 Vitamin E (Dl Tocopheryl Acet) 180 Mg (400 Units) Capsule PO 09/02/24 08:59 180 mg DAILY ERNIE Administration Zolpidem Tartrate 10 mg 09/02/23 22:00 09/12/23 22:14 Zolpidem 10 Mg Tablet PO 02/29/24 21:59 10 mg QHS ERNIE Administration A&P - Hospitalist Assessment/Plan (1) Status post total right knee replacement: (2) Primary osteoarthritis of both knees: (3) Primary hypertension: (4) Impaired mobility and activities of daily living: Plan Status post total right knee replacement?09/01/2023 Postoperative anemia -Plan of care for rehabilitation, PT/OT, DVT prophylaxis, bowel regimen per PM&Rteam. Any issues pertaining to incision site to be deferred to the orthopedic team -Aspirin 81 mg twice daily x 35 days postop and 7 days of Duricef per orthopedicteam Elevated liver enzymes- -labs from September 07 reviewed with downtrending LFTs but still remaining elevated. Note that it is documented the patient inquired about having wine fordinner, alcohol could be contributory. Patient can have follow-up imaging as outpatient. Chronic conditions: 1. Hypertension? metoprolol, losartan, blood pressure reviewed 2. Hyperlipidemia? atorvastatin, will hold due to elevated liver enzymes Documented By: Patricia Mayberry APRN 08/28 12/21 0952 Signed By: <Electronically signed by CHASITY Mayberry> 09/14/23 1741 [facility] Work Phone: 1(561) 525-793903-15-2024 Progress note Author Elijah Mayers [facility] September 12, 2023 2:08pm Note Date/Time September 12, 2023 2:0 8pm [facility] [address] [place] [address] Physiatry(Rehab) Progress Note Signed Patient: Ashley Brown MR#: [id number] : 1940 Acct:[id number] Age/Sex: 82 / F Adm Date: 4 Loc: Room: [address] [place] [address] Type: ADM IN Attending Dr: Elijah Mayers MD Copies to: ~ Date of Service: 09/12/2023 Subjective Subjective Narrative: Ms. Brown is a 82 year old female with PMH of of paroxysmal A-fib, GERD, arthritis, hypertension, hyperlipidemia, CAD, CABG, presenting to acute patient rehab with functional impairments in the setting of total right knee arthroplasty. She presented to the hospital on 09/01/2023 for an elective right knee replacementafter failing conservative treatment. The above robotic assisted procedure was performed by Dr. Pichardo without major complication. Patient can weight-bear as tolerated to the operative extremity. Aspirin 81 mg twice daily x 35 days for DVT prophylaxis. Her hospital course was uncomplicated. She was seen by PT/OT and recommended acute rehab to address functional impairments. On admission patient is alert, pleasant, oriented x 3. Reports anticipated right knee discomfort, worse with weightbearing. She is quite sensitive to mostpain medications, which typically cause significant nausea and vomiting and has to be very cautious what she takes. She reported feeling nauseous and vomiting yesterday evening after receiving some pain medications. She was given Compazine injection by hospitalist ANESTHESIA ASSISTANT which 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 She does take prn alprazolam for anxiety which was added. Patient was also made aware she has po antiemetics ordered if she needs them. Patient otherwise has no acute concerns or complaints. She is tolerating therapy and is able to ambulate short distances with a rolling walker and contact-guard assist. Her plan is to return home alone. She does have good social support consisting of friends and family. Interval history: Patient was seen and evaluated while resting in bed. In no distress currently. In good spirits. Denies major concerns today. Requesting to have pizza and wine for dinner. Approved pizza, did not approve wine. Exam Physical Exam Vital Signs: Temp Pulse Resp BP Pulse Ox O2 Del Method 98.5 F 68 18 117/68 100 Room Air 09/12/23 08:47 09/12/23 08:47 09/12/23 08:47 09/12/23 08:47 09/12/23 08:47 09/12/23 09:38 Narrative: Gen: Awake, oriented, cooperative. HEENT: Atraumatic, PERRL, EOMI Resp: No respiratory distress Cardio: Extremities well perfused MSK: Moves all extremities spontaneously Neuro: CN grossly intact Skin: No swelling, erythema, ecchymosis appreciated Psych: Mood and affect normal Objective Labs 09/08/23 09:52 09/08/23 09:52 Medications and Allergies Allergies and Active Meds: Allergies oxycodone [Percocet] Allergy (Unknown, Verified 08/25/23 10:52) Vomiting sulfamethoxazole [Bactrim] Allergy (Unknown, Verified 08/25/23 10:52) Unknown Reaction trimethoprim [Bactrim] Allergy (Unknown, Verified 08/25/23 10:52) Unknown Reaction acetaminophen [From Vicodin] Allergy (Verified 09/02/23 15:58) Vomiting hydrocodone [From Vicodin] Allergy (Verified 09/02/23 15:58) Vomiting Rocuronium [place] Allergy (Unknown, Uncoded 02/21/24 14:19) breathing difficulty Active Medications Generic Name Dose Route Start Last Admin Trade Name Freq PRN Reason Stop Dose Admin Acetaminophen 1,000 mg 09/02/23 15:15 09/12/23 08:49 Acetaminophen 500 Mg Tablet PO 09/01/24 15:14 1,000 mg Q8H ERNIE Administration Al Hydrox/Mg Hydrox/Simethicone 30 ml 09/02/23 14:57 09/03/23 00:58 Mag Hydrox/Al Hydrox/Simeth 30 Ml Udc PO 09/01/24 14:56 30 ml Q4H PRN Administration Indigestion Alprazolam 0.25 mg 09/03/23 10:30 09/11/23 23:41 Alprazolam 0.25 Mg Tablet PO 03/01/24 10:29 0.25 mg Q6H PRN Administration Anxiety Aspirin 81 mg 09/02/23 21:00 09/03/23 09:08 Aspirin 81 Mg Tablet.Dr PO 09/01/24 20:59 81 mg BID ERNIE Administration Atorvastatin Calcium 10 mg 09/02/23 22:00 09/02/23 22:50 Atorvastatin 10 Mg Tablet PO 09/01/24 21:59 10 mg QHS ERNIE Administration Bisacodyl 10 mg 09/02/23 14:57 Bisacodyl 10 Mg Supp.Rect DE 09/01/24 14:56 DAILY PRN Constipation Diclofenac Sodium 2 gm 09/02/23 18:00 09/12/23 08:49 Diclofenac Sodium 1% Gel 100 Gm Tube TOPICAL 09/01/24 17:59 2 gm QID ERNIE Administration Docusate Sodium 283 mg 09/02/23 14:57 Docusate Enema 283 Mg/5 Ml Enema DE 09/01/24 14:56 DAILY PRN Constipation Docusate Sodium 100 mg 09/05/23 14:06 Docusate 100 Mg Capsule PO 09/03/24 08:59 BID PRN Constipation Enoxaparin Sodium 40 mg 09/03/23 10:35 09/12/23 08:49 Enoxaparin 40 Mg/0.4 Ml Syringe SUBCUT 09/02/24 10:34 40 mg DAILY@1000 ERNIE Administration Home Med 1 each 09/02/23 23:30 Home Meds Kept In Pharmacy [facility] 09/01/24 23:29 PRN PRN zz.Pharmacy Note Lactulose 30 gm 09/02/23 14:57 Lactulose 20 Gm/30 Ml Udc PO 09/01/24 14:56 DAILY PRN Constipation Loratadine 10 mg 09/07/23 09:00 09/12/23 08:48 Loratadine 10 Mg Tablet PO 09/06/24 08:59 10 mg QAM ERNIE Administration Losartan Potassium 25 mg 09/03/23 09:00 09/12/23 08:49 Losartan 25 Mg Tablet PO 09/02/24 08:59 25 mg QAM ERNIE Administration Metoprolol Succinate 25 mg 09/02/23 21:00 09/11/23 21:04 Metoprolol Succinate 25 Mg Tab.Er.24h PO 09/01/24 20:59 25 mg QPM ERNIE Administration Multivitamins 1 tab 09/03/23 09:00 09/12/23 08:49 Multivitamin 1 Tab Tablet PO 09/02/24 08:59 1 tab DAILY ERNIE Administration Ondansetron HCl 4 mg 09/03/23 00:58 09/03/23 06:18 Ondansetron Odt 4 Mg Tab.Rapdis PO 09/01/24 15:23 4 mg Q6H PRN Administration Nausea Oxycodone HCl 5 mg 09/02/23 15:13 09/12/23 02:47 Oxycodone Ir 5 Mg Tablet PO 5 mg Q4H PRN Administration Pain Scale 6 - 10 Pantoprazole Sodium 40 mg 09/04/23 09:00 09/12/23 08:49 Pantoprazole 40 Mg Tablet.Dr PO 09/03/24 08:59 40 mg DAILY ERNIE Administration Polyethylene Glycol 17 gm 09/05/23 14:06 Polyethylene Glycol 3350 17 Gm Powd.Pack PO 09/02/24 08:59 DAILY PRN Constipation Prednisone 10 mg 09/03/23 09:00 09/12/23 08:48 Prednisone 10 Mg Tablet PO 09/02/24 08:59 10 mg DAILY ERNIE Administration Sennosides 2 tab 09/03/23 12:00 Sennosides 8.6 Mg Tablet PO 09/02/24 11:59 DAILY@12 PRN If no BM in 2 days Sodium Chloride 0 ml 09/02/23 14:57 Sodium Chloride 0.9 % 10 Ml Syringe IV-PUSH 09/01/24 14:56 PRN PRN Flush Vitamin D 50 mcg 09/03/23 09:00 09/12/23 08:48 Cholecalciferol 25 Mcg (1,000 Units) Tablet PO 09/02/24 08:59 50 mcg DAILY ERNIE Administration Vitamin E 180 mg 09/03/23 09:00 09/12/23 08:49 Vitamin E (Dl Tocopheryl Acet) 180 Mg (400 Units) Capsule PO 09/02/24 08:59 180 mg DAILY ERNIE Administration Zolpidem Tartrate 10 mg 09/02/23 22:00 09/11/23 21:04 Zolpidem 10 Mg Tablet PO 02/29/24 21:59 10 mg QHS ERNIE Administration Assessment/Plan Assessment/Plan (1) Status post total right knee replacement: (2) Primary osteoarthritis of both knees: (3) Hyperlipidemia type II: (4) Primary hypertension: (5) CAD (coronary artery disease): (6) Impaired mobility and activities of daily living: (7) Anxiety: (8) Post-operative pain: Plan 82-year-old female presenting to acute inpatient rehab with functional impairments secondary to an elective right total knee arthroplasty which was performed on 08/[address] Pichardo. Uncomplicated procedure and postoperative course. * Continues to improve. Wound site appears improved with reduced swelling and ecchymosis. * Doing very well in therapy and continues to improve daily. OK to be independent in room. Patient education Pressure ulcer prophylaxis; encourage mobilization, frequent postural changes, pressure-relief techniques DVT prophylaxis Lovenox while inpatient, aspirin 81 mg twice daily at discharge Encourage deep breathing exercise incentive spirometry. Monitor bladder. Toileting schedule. Continue current bladder management, with scans as needed and CIC if needed. Start bowel care program every day to obtain continence, prevent ileus. Maintain fall precautions Gait and balance retraining Functional training and self-care and home management, including activities of daily living and instrumental activities of daily living Provision of the necessary gait aids and functional adaptive equipment to enhance the patient's a functional episcopal Ensure adequate nutrition and hydration Sleep: No issues Pain: Continue current regimen for now Discharge plannin/18 Patient was personally seen by me, Dr. Mayers, on the day of encounter, reviewed the history and the relevant portions of the chart, including current orders, allied health and life skills consultant notes, labs/imaging and performed timmons elements of exam and I formulated the plan of care and facilitated the medical decision making. I completed a substantive portion of this encounter, the medical decision makingportion of this note in its entirety, including Allied health note review, nursing note review, life skills consultant note review, discussion with nursing and case management, and more than 50% of my time was spent on counseling and coordination of care, time spent 25 minutes Documented By: Elijah Mayers MD [id number] Signed By: <Electronically signed by Elijah Mayers MD> 09/12/23 1408 [facility] Work Phone: 1(239) 443-655503-14-2024 Progress note Author Elijah Mayers [facility] September 11, 2023 1:21pm Note Date/Time September 11, 2023 1:2 1pm [facility] [address] [place] [address] Physiatry(Rehab) Progress Note Signed Patient: Ashley Brown MR#: [id number] : 1940 Acct:[id number] Age/Sex: 82 / F Adm Date: 4 Loc: Room: [address] [place] [address] Type: ADM IN Attending Dr: Elijah Mayers MD Copies to: ~ Date of Service: 09/11/2023 Subjective Subjective Narrative: Ms. Brown is a 82 year old female with PMH of of paroxysmal A-fib, GERD, arthritis, hypertension, hyperlipidemia, CAD, CABG, presenting to acute patient rehab with functional impairments in the setting of total right knee arthroplasty. She presented to the hospital on 09/01/2023 for an elective right knee replacementafter failing conservative treatment. The above robotic assisted procedure was performed by Dr. Pichardo without major complication. Patient can weight-bear as tolerated to the operative extremity. Aspirin 81 mg twice daily x 35 days for DVT prophylaxis. Her hospital course was uncomplicated. She was seen by PT/OT and recommended acute rehab to address functional impairments. On admission patient is alert, pleasant, oriented x 3. Reports anticipated right knee discomfort, worse with weightbearing. She is quite sensitive to mostpain medications, which typically cause significant nausea and vomiting and has to be very cautious what she takes. She reported feeling nauseous and vomiting yesterday evening after receiving some pain medications. She was given Compazine injection by hospitalist ANESTHESIA ASSISTANT which 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 She does take prn alprazolam for anxiety which was added. Patient was also made aware she has po antiemetics ordered if she needs them. Patient otherwise has no acute concerns or complaints. She is tolerating therapy and is able to ambulate short distances with a rolling walker and contact-guard assist. Her plan is to return home alone. She does have good social support consisting of friends and family. Interval history: Patient was seen and evaluated while resting in bed. In no distress currently. Patient was seen by orthopedic surgery. Prevena DCd. Patient continues to tolerate therapy well. Denies major concerns today. Continued plan for DC Friday. Review of Systems Review of Systems All other systems reviewed & are negative unless noted below or in HPI Exam Physical Exam Vital Signs: Temp Pulse Resp BP Pulse Ox O2 Del Method 97.2 F L 62 13 131/64 100 Room Air 09/11/23 11:10 09/11/23 11:10 09/11/23 11:10 09/11/23 11:10 09/11/23 11:10 09/11/23 11:33 Narrative: Gen: Awake, oriented, cooperative. HEENT: Atraumatic, PERRL, EOMI Resp: No respiratory distress Cardio: Extremities well perfused MSK: Moves all extremities spontaneously Neuro: CN grossly intact Skin: No swelling, erythema, ecchymosis appreciated Psych: Mood and affect normal Objective Labs 09/08/23 09:52 09/08/23 09:52 Medications and Allergies Allergies and Active Meds: Allergies oxycodone [Percocet] Allergy (Unknown, Verified 08/25/23 10:52) Vomiting sulfamethoxazole [Bactrim] Allergy (Unknown, Verified 08/25/23 10:52) Unknown Reaction trimethoprim [Bactrim] Allergy (Unknown, Verified 08/25/23 10:52) Unknown Reaction acetaminophen [From Vicodin] Allergy (Verified 09/02/23 15:58) Vomiting hydrocodone [From Vicodin] Allergy (Verified 09/02/23 15:58) Vomiting Rocuronium [place] Allergy (Unknown, Uncoded 08/20/23 14:19) breathing difficulty Active Medications Generic Name Dose Route Start Last Admin Trade Name Freq PRN Reason Stop Dose Admin Acetaminophen 1,000 mg 09/02/23 15:15 09/11/23 06:39 Acetaminophen 500 Mg Tablet PO 09/01/24 15:14 1,000 mg Q8H ERNIE Administration Al Hydrox/Mg Hydrox/Simethicone 30 ml 09/02/23 14:57 09/03/23 00:58 Mag Hydrox/Al Hydrox/Simeth 30 Ml Udc PO 09/01/24 14:56 30 ml Q4H PRN Administration Indigestion Alprazolam 0.25 mg 09/03/23 10:30 09/11/23 02:20 Alprazolam 0.25 Mg Tablet PO 03/01/24 10:29 0.25 mg Q6H PRN Administration Anxiety Aspirin 81 mg 09/02/23 21:00 09/03/23 09:08 Aspirin 81 Mg Tablet.Dr PO 09/01/24 20:59 81 mg BID ERNIE Administration Atorvastatin Calcium 10 mg 09/02/23 22:00 09/02/23 22:50 Atorvastatin 10 Mg Tablet PO 09/01/24 21:59 10 mg QHS ERNIE Administration Bisacodyl 10 mg 09/02/23 14:57 Bisacodyl 10 Mg Supp.Rect DE 09/01/24 14:56 DAILY PRN Constipation Diclofenac Sodium 2 gm 09/02/23 18:00 09/11/23 09:38 Diclofenac Sodium 1% Gel 100 Gm Tube TOPICAL 09/01/24 17:59 Not Given QID [facility] Docusate Sodium 283 mg 09/02/23 14:57 Docusate Enema 283 Mg/5 Ml Enema DE 09/01/24 14:56 DAILY PRN Constipation Docusate Sodium 100 mg 09/05/23 14:06 Docusate 100 Mg Capsule PO 09/03/24 08:59 BID PRN Constipation Enoxaparin Sodium 40 mg 09/03/23 10:35 09/11/23 09:38 Enoxaparin 40 Mg/0.4 Ml Syringe SUBCUT 09/02/24 10:34 40 mg DAILY@1000 ERNIE Administration Home Med 1 each 09/02/23 23:30 Home Meds Kept In Pharmacy MISCELLANE 09/01/24 23:29 PRN PRN zz.Pharmacy Note Lactulose 30 gm 09/02/23 14:57 Lactulose 20 Gm/30 Ml Udc PO 09/01/24 14:56 DAILY PRN Constipation Loratadine 10 mg 09/07/23 09:00 09/11/23 09:38 Loratadine 10 Mg Tablet PO 09/06/24 08:59 10 mg QAM ERNIE Administration Losartan Potassium 25 mg 09/03/23 09:00 09/11/23 09:38 Losartan 25 Mg Tablet PO 09/02/24 08:59 25 mg QAM ERNIE Administration Metoprolol Succinate 25 mg 09/02/23 21:00 09/10/23 22:21 Metoprolol Succinate 25 Mg Tab.Er.24h PO 09/01/24 20:59 25 mg QPM ERNIE Administration Multivitamins 1 tab 09/03/23 09:00 09/11/23 09:38 Multivitamin 1 Tab Tablet PO 09/02/24 08:59 1 tab DAILY ERNIE Administration Ondansetron HCl 4 mg 09/03/23 00:58 09/03/23 06:18 Ondansetron Odt 4 Mg Tab.Rapdis PO 09/01/24 15:23 4 mg Q6H PRN Administration Nausea Oxycodone HCl 5 mg 09/02/23 15:13 09/10/23 03:45 Oxycodone Ir 5 Mg Tablet PO 5 mg Q4H PRN Administration Pain Scale 6 - 10 Pantoprazole Sodium 40 mg 09/04/23 09:00 09/11/23 09:38 Pantoprazole 40 Mg Tablet. PO 09/03/24 08:59 40 mg DAILY ERNIE Administration Polyethylene Glycol 17 gm 09/05/23 14:06 Polyethylene Glycol 3350 17 Gm Powd.Pack PO 09/02/24 08:59 DAILY PRN Constipation Prednisone 10 mg 09/03/23 09:00 09/11/23 09:38 Prednisone 10 Mg Tablet PO 09/02/24 08:59 10 mg DAILY ERNIE Administration Sennosides 2 tab 09/03/23 12:00 Sennosides 8.6 Mg Tablet PO 09/02/24 11:59 DAILY@12 PRN If no BM in 2 days Sodium Chloride 0 ml 09/02/23 14:57 Sodium Chloride 0.9 % 10 Ml Syringe IV-PUSH 09/01/24 14:56 PRN PRN Flush Vitamin D 50 mcg 09/03/23 09:00 09/11/23 09:38 Cholecalciferol 25 Mcg (1,000 Units) Tablet PO 09/02/24 08:59 50 mcg DAILY ERNIE Administration Vitamin E 180 mg 09/03/23 09:00 09/11/23 09:38 Vitamin E (Dl Tocopheryl Acet) 180 Mg (400 Units) Capsule PO 09/02/24 08:59 180 mg DAILY ERNIE Administration Zolpidem Tartrate 10 mg 09/02/23 22:00 09/10/23 22:21 Zolpidem 10 Mg Tablet PO 02/29/24 21:59 10 mg QHS ERNIE Administration Assessment/Plan Assessment/Plan (1) Status post total right knee replacement: (2) Primary osteoarthritis of both knees: (3) Hyperlipidemia type II: (4) Primary hypertension: (5) CAD (coronary artery disease): (6) Impaired mobility and activities of daily living: (7) Anxiety: (8) Post-operative pain: Plan 82-year-old female presenting to acute inpatient rehab with functional impairments secondary to an elective right total knee arthroplasty which was performed on 08/[address] Pichardo. Uncomplicated procedure and postoperative course. * Continues to improve. Wound site appears improved with reduced swelling and ecchymosis. Prevena discontinued * Doing very well in therapy and continues to improve daily. Patient education Pressure ulcer prophylaxis; encourage mobilization, frequent postural changes, pressure-relief techniques DVT prophylaxis Lovenox while inpatient, aspirin 81 mg twice daily at discharge Encourage deep breathing exercise incentive spirometry. Monitor bladder. Toileting schedule. Continue current bladder management, with scans as needed and CIC if needed. Start bowel care program every day to obtain continence, prevent ileus. Maintain fall precautions Gait and balance retraining Functional training and self-care and home management, including activities of daily living and instrumental activities of daily living Provision of the necessary gait aids and functional adaptive equipment to enhance the patient's a functional episcopal Ensure adequate nutrition and hydration Sleep: No issues Pain: Continue current regimen for now Discharge plannin/18 Patient was personally seen by me, Dr. Mayers, on the day of encounter, reviewed the history and the relevant portions of the chart, including current orders, allied health and life skills consultant notes, labs/imaging and performed timmons elements of exam and I formulated the plan of care and facilitated the medical decision making. I completed a substantive portion of this encounter, the medical decision makingportion of this note in its entirety, including Allied health note review, nursing note review, life skills consultant note review, discussion with nursing and case management, and more than 50% of my time was spent on counseling and coordination of care, time spent 26 minutes Documented By: Elijah Mayers MD [id number] Signed By: <Electronically signed by Elijah Mayers MD> 09/11/23 1321 [facility] Work Phone: [phone]) 308-956603-14-2024 Progress note Author Magno Pichardo [facility] September 11, 2023 8:23am Note Date/Time September 11, 2023 8:1 5am [facility] [address] [place] [address] Orthopedic Progress Note Signed Patient: Ashley Brown MR#: [id number] : 1940 Acct:[id number] Age/Sex: 82 / F Adm Date: 4 Loc: Room: [address] [place] [address] Type: ADM IN Attending Dr: Elijah Mayers MD Copies to: ~ Date of Service: 09/11/2023 Subjective Subjective Interval History: Patient resting comfortably in bed this morning. Reports doing well with PT/OT. Nursing reported some drainage in the distal dressings yesterday; reinforced. Denies chest pain, shortness of breath, or calf pain. Exam Physical Exam Vital Signs: Temp Pulse Resp BP Pulse Ox O2 Del Method 97.6 F 70 14 135/75 99 Room Air 09/11/23 07:35 09/11/23 07:35 09/11/23 07:35 09/11/23 07:35 09/11/23 07:35 09/11/23 07:35 Narrative: Right knee Prevena on and working; no drainage in container. Dressings saturateddistally. Foot is warm and well perfused. Sensation intact to light touch. Wiggles their toes and ankle up/down. Nontender to palpation to calf. Full extension and at least 90 degrees flexion. Prevena and distal dressings removed. Skin tears x 2 distally near pin sites. All incisions look clean and dry; no active drainage. Assessment / Plan Assessment and plan (1) Status post total right knee replacement: Code(s): Z96.651 - Presence of right artificial knee joint Plan POD 10 s/p R TKA 1. Pain control 2. DVT prophylaxis: ALVARO Hose bilaterally, SCDs bilaterally, and aspirin 81 mg twice daily x 35 days postop 3. Perioperative antibiotics completed 4. PT/OT: WBAT right lower extremity 5. Appreciate rehab team assistance with recovery 6. PACU x-rays look good 7. Hemoglobin stable 8. Today's Plan: Continue working with PT/OT. Removed Prevena and distal dressings. OK to let air out this morning, then redress with xeroform over skin tears/pin sites and telfa/abd over incision to prevent tabs from catching on clothes. 9. Disposition: likely home on Thursday 09/14; I will see her before she goes hometo check incision Documented By: Magno Pichardo MD 09/11/23 08 11 Signed By: <Electronically signed by Magno Pichardo MD> 09/11/23 0823 [facility] Work Phone: 1(394) 265-842103-13-2024 Progress note Author Elijah Mayers [facility] September 10, 2023 1:36pm Note Date/Time September 10, 2023 1:3 6pm [facility] [address] [place] [address] Physiatry(Rehab) Progress Note Signed Patient: Ashley Brown MR#: [id number] : 1940 Acct:[id number] Age/Sex: 82 / F Adm Date: 4 Loc: Room: [address] [place] [address] Type: ADM IN Attending Dr: Elijah Mayers MD Copies to: ~ Date of Service: 09/10/2023 Subjective Subjective Narrative: Ms. Brown is a 82 year old female with PMH of of paroxysmal A-fib, GERD, arthritis, hypertension, hyperlipidemia, CAD, CABG, presenting to acute patient rehab with functional impairments in the setting of total right knee arthroplasty. She presented to the hospital on 09/01/2023 for an elective right knee replacementafter failing conservative treatment. The above robotic assisted procedure was performed by Dr. Pichardo without major complication. Patient can weight-bear as tolerated to the operative extremity. Aspirin 81 mg twice daily x 35 days for DVT prophylaxis. Her hospital course was uncomplicated. She was seen by PT/OT and recommended acute rehab to address functional impairments. On admission patient is alert, pleasant, oriented x 3. Reports anticipated right knee discomfort, worse with weightbearing. She is quite sensitive to mostpain medications, which typically cause significant nausea and vomiting and has to be very cautious what she takes. She reported feeling nauseous and vomiting yesterday evening after receiving some pain medications. She was given Compazine injection by hospitalist ANESTHESIA ASSISTANT which 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 She does take prn alprazolam for anxiety which was added. Patient was also made aware she has po antiemetics ordered if she needs them. Patient otherwise has no acute concerns or complaints. She is tolerating therapy and is able to ambulate short distances with a rolling walker and contact-guard assist. Her plan is to return home alone. She does have good social support consisting of friends and family. Interval history: Patient was seen and evaluated while working with PT. Appears in no distress. States that she has some slight drainage from her incision this morning but since improved. Denies new redness, swelling, erythema. Overall pain improving. She denies chest pain, SOB, fever, chills. Tolerating therapy well and making functional gains. Review of Systems Review of Systems All other systems reviewed & are negative unless noted below or in HPI Exam Physical Exam Vital Signs: Temp Pulse Resp BP Pulse Ox O2 Del Method 97.6 F 66 12 152/61 H 97 Room Air 09/10/23 08:00 09/10/23 08:00 09/10/23 08:00 09/10/23 08:00 09/10/23 08:00 09/10/23 09:00 Narrative: General: Awake, alert, oriented x3 HENT: Normal to inspection, normocephalic, atraumatic Eyes: PERRL, normal conjunctiva and sclera Neck: Normal ROM, normal visual inspection. Trachea midline. Cardio: Regular heart rate and rhythm Respiratory: Clear to auscultation bilaterally. Normal respiratory effort. No respiratory distress. GI: Abdomen soft, nontender, nondistended, active bowel sounds x4 quadrants Neuro: CN II-XII intact. Strength 5/5, equal bilaterally Extremities: Right knee wound VAC dressing intact. No drainage in the canister or tubing. Diffuse ecchymosis to the extremity. Surrounding tissue is soft andnontender to palpation. Psych: Mood and affect appropriate. Normal speech. Objective Labs 09/08/23 09:52 09/08/23 09:52 Medications and Allergies Allergies and Active Meds: Allergies oxycodone [Percocet] Allergy (Unknown, Verified 08/25/23 10:52) Vomiting sulfamethoxazole [Bactrim] Allergy (Unknown, Verified 08/25/23 10:52) Unknown Reaction trimethoprim [Bactrim] Allergy (Unknown, Verified 08/25/23 10:52) Unknown Reaction acetaminophen [From Vicodin] Allergy (Verified 09/02/23 15:58) Vomiting hydrocodone [From Vicodin] Allergy (Verified 09/02/23 15:58) Vomiting Rocuronium [place] Allergy (Unknown, Uncoded 08/20/23 14:19) breathing difficulty Active Medications Generic Name Dose Route Start Last Admin Trade Name Freq PRN Reason Stop Dose Admin Acetaminophen 1,000 mg 09/02/23 15:15 09/10/23 10:46 Acetaminophen 500 Mg Tablet PO 09/01/24 15:14 1,000 mg Q8H ERNIE Administration Al Hydrox/Mg Hydrox/Simethicone 30 ml 09/02/23 14:57 09/03/23 00:58 Mag Hydrox/Al Hydrox/Simeth 30 Ml Udc PO 09/01/24 14:56 30 ml Q4H PRN Administration Indigestion Alprazolam 0.25 mg 09/03/23 10:30 09/09/23 23:59 Alprazolam 0.25 Mg Tablet PO 03/01/24 10:29 0.25 mg Q6H PRN Administration Anxiety Aspirin 81 mg 09/02/23 21:00 09/03/23 09:08 Aspirin 81 Mg Tablet. PO 09/01/24 20:59 81 mg BID ERNIE Administration Atorvastatin Calcium 10 mg 09/02/23 22:00 09/02/23 22:50 Atorvastatin 10 Mg Tablet PO 09/01/24 21:59 10 mg QHS ERNIE Administration Bisacodyl 10 mg 09/02/23 14:57 Bisacodyl 10 Mg Supp.Rect DE 09/01/24 14:56 DAILY PRN Constipation Diclofenac Sodium 2 gm 09/02/23 18:00 09/10/23 10:49 Diclofenac Sodium 1% Gel 100 Gm Tube TOPICAL 09/01/24 17:59 2 gm QID ERNIE Administration Docusate Sodium 283 mg 09/02/23 14:57 Docusate Enema 283 Mg/5 Ml Enema DE 09/01/24 14:56 DAILY PRN Constipation Docusate Sodium 100 mg 09/05/23 14:06 Docusate 100 Mg Capsule PO 09/03/24 08:59 BID PRN Constipation Enoxaparin Sodium 40 mg 09/03/23 10:35 09/10/23 10:48 Enoxaparin 40 Mg/0.4 Ml Syringe SUBCUT 09/02/24 10:34 40 mg DAILY@1000 ERNIE Administration Home Med 1 each 09/02/23 23:30 Home Meds Kept In Pharmacy MISCELLANE 09/01/24 23:29 PRN PRN zz.Pharmacy Note Lactulose 30 gm 09/02/23 14:57 Lactulose 20 Gm/30 Ml Udc PO 09/01/24 14:56 DAILY PRN Constipation Loratadine 10 mg 09/07/23 09:00 09/10/23 10:46 Loratadine 10 Mg Tablet PO 09/06/24 08:59 10 mg QAM ERNIE Administration Losartan Potassium 25 mg 09/03/23 09:00 09/10/23 10:47 Losartan 25 Mg Tablet PO 09/02/24 08:59 25 mg QAM ERNIE Administration Metoprolol Succinate 25 mg 09/02/23 21:00 09/09/23 21:14 Metoprolol Succinate 25 Mg Tab.Er.24h PO 09/01/24 20:59 25 mg QPM ERNIE Administration Multivitamins 1 tab 09/03/23 09:00 09/10/23 10:47 Multivitamin 1 Tab Tablet PO 09/02/24 08:59 1 tab DAILY ERNIE Administration Ondansetron HCl 4 mg 09/03/23 00:58 09/03/23 06:18 Ondansetron Odt 4 Mg Tab.Rapdis PO 09/01/24 15:23 4 mg Q6H PRN Administration Nausea Oxycodone HCl 5 mg 09/02/23 15:13 09/10/23 03:45 Oxycodone Ir 5 Mg Tablet PO 5 mg Q4H PRN Administration Pain Scale 6 - 10 Pantoprazole Sodium 40 mg 09/04/23 09:00 09/10/23 10:47 Pantoprazole 40 Mg Tablet.Dr PO 09/03/24 08:59 40 mg DAILY ERNIE Administration Polyethylene Glycol 17 gm 09/05/23 14:06 Polyethylene Glycol 3350 17 Gm Powd.Pack PO 09/02/24 08:59 DAILY PRN Constipation Prednisone 10 mg 09/03/23 09:00 09/10/23 10:48 Prednisone 10 Mg Tablet PO 09/02/24 08:59 10 mg DAILY ERNIE Administration Sennosides 2 tab 09/03/23 12:00 Sennosides 8.6 Mg Tablet PO 09/02/24 11:59 DAILY@12 PRN If no BM in 2 days Sodium Chloride 0 ml 09/02/23 14:57 Sodium Chloride 0.9 % 10 Ml Syringe IV-PUSH 09/01/24 14:56 PRN PRN Flush Vitamin D 50 mcg 09/03/23 09:00 09/10/23 10:45 Cholecalciferol 25 Mcg (1,000 Units) Tablet PO 09/02/24 08:59 50 mcg DAILY ERNIE Administration Vitamin E 180 mg 09/03/23 09:00 09/10/23 10:48 Vitamin E (Dl Tocopheryl Acet) 180 Mg (400 Units) Capsule PO 09/02/24 08:59 180 mg DAILY ERNIE Administration Zolpidem Tartrate 10 mg 09/02/23 22:00 09/09/23 21:14 Zolpidem 10 Mg Tablet PO 02/29/24 21:59 10 mg QHS ERNIE Administration Assessment/Plan Assessment/Plan (1) Status post total right knee replacement: (2) Primary osteoarthritis of both knees: (3) Hyperlipidemia type II: (4) Primary hypertension: (5) CAD (coronary artery disease): (6) Impaired mobility and activities of daily living: (7) Anxiety: (8) Post-operative pain: Plan 82-year-old female presenting to acute inpatient rehab with functional impairments secondary to an elective right total knee arthroplasty which was performed on 08/[address] Pichardo. Uncomplicated procedure and postoperative course. * Continues to improve. Wound site appears improved with reduced swelling and ecchymosis * Doing very well in therapy and continues to improve daily. Patient education Pressure ulcer prophylaxis; encourage mobilization, frequent postural changes, pressure-relief techniques DVT prophylaxis Lovenox while inpatient, aspirin 81 mg twice daily at discharge Encourage deep breathing exercise incentive spirometry. Monitor bladder. Toileting schedule. Continue current bladder management, with scans as needed and CIC if needed. Start bowel care program every day to obtain continence, prevent ileus. Maintain fall precautions Gait and balance retraining Functional training and self-care and home management, including activities of daily living and instrumental activities of daily living Provision of the necessary gait aids and functional adaptive equipment to enhance the patient's a functional episcopal Ensure adequate nutrition and hydration Sleep: No issues Pain: Continue current regimen for now Discharge plannin/18 Patient was personally seen by me, Dr. Mayers, on the day of encounter, reviewed the history and the relevant portions of the chart, including current orders, allied health and life skills consultant notes, labs/imaging and performed timmons elements of exam and I formulated the plan of care and facilitated the medical decision making. I completed a substantive portion of this encounter, the medical decision makingportion of this note in its entirety, including Allied health note review, nursing note review, life skills consultant note review, discussion with nursing and case management, and more than 50% of my time was spent on counseling and coordination of care, time spent 26 minutes Documented By: Elijah Mayers MD [id number] Signed By: <Electronically signed by Elijah Mayers MD> 09/10/231335 [facility] Work Phone: [phone]) 736-345103-13-2024 Progress note Author Elijah Mayers [facility] September 10, 2023 9:32am Note Date/Time September 09, 2023 1:2 2pm [facility] [address] [place] [address] Physiatry(Rehab) Progress Note Signed Patient: Ashley Brown MR#: [id number] : 1940 Acct:[id number] Age/Sex: 82 / F Adm Date: 4 Loc: Room: 6G2604-4 Type: ADM IN Attending Dr: Elijah Mayers MD Copies to: ~ <Heidi Mesa APRN - Last Filed: 09/09/23 13:22> Date of Service: 09/09/2023 Subjective <Heidi Mesa APRN - Last Filed: 09/09/23 13:22> Subjective Narrative: Ms. Brown is a 82 year old female with PMH of of paroxysmal A-fib, GERD, arthritis, hypertension, hyperlipidemia, CAD, CABG, presenting to acute patient rehab with functional impairments in the setting of total right knee arthroplasty. She presented to the hospital on 09/01/2023 for an elective right knee replacementafter failing conservative treatment. The above robotic assisted procedure was performed by Dr. Pichardo without major complication. Patient can weight-bear as tolerated to the operative extremity. Aspirin 81 mg twice daily x 35 days for DVT prophylaxis. Her hospital course was uncomplicated. She was seen by PT/OT and recommended acute rehab to address functional impairments. On admission patient is alert, pleasant, oriented x 3. Reports anticipated right knee discomfort, worse with weightbearing. She is quite sensitive to mostpain medications, which typically cause significant nausea and vomiting and has to be very cautious what she takes. She reported feeling nauseous and vomiting yesterday evening after receiving some pain medications. She was given Compazine injection by hospitalist ANESTHESIA ASSISTANT which 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 She does take prn alprazolam for anxiety which was added. Patient was also made aware she has po antiemetics ordered if she needs them. Patient otherwise has no acute concerns or complaints. She is tolerating therapy and is able to ambulate short distances with a rolling walker and contact-guard assist. Her plan is to return home alone. She does have good social support consisting of friends and family. Interval history: Ashley is resting in bed on exam this morning. She is alert, pleasant, oriented. Her pain is reasonably controlled. Right lower extremity appears less edematous. There is still some scant drainage from the bottom of her wound VAC dressing. Lower extremity hematoma isresolving. She did have episode of lightheadedness and hypotension yesterday morning, this resolved without intervention. She feels fine this morning, denies feeling faint or added. Her vitals are within normal limits. She has no chest pain, palpitations. Asking about discharge planning. She feels improved but not at her baseline andwould like to remain admitted for a few more days. She is ambulatory ~200 feet with a walker and standby assistance. SBA with transfers. Review of Systems <Heidi Mesa APRN - Last Filed: 09/09/23 13:22> Review of Systems All other systems reviewed & are negative unless noted below or in HPI Exam <Heidi Mesa APRN - Last Filed: 09/09/23 13:22> Physical Exam Vital Signs: Temp Pulse Resp BP Pulse Ox O2 Del Method 97.8 F 92 16 147/88 H 100 Room Air 09/09/23 06:48 09/09/23 06:48 09/09/23 06:48 09/09/23 06:48 09/09/23 06:48 09/09/23 06:48 Narrative: General: Awake, alert, oriented x3 HENT: Normal to inspection, normocephalic, atraumatic Eyes: PERRL, normal conjunctiva and sclera Neck: Normal ROM, normal visual inspection. Trachea midline. Cardio: Regular heart rate and rhythm Respiratory: Clear to auscultation bilaterally. Normal respiratory effort. No respiratory distress. GI: Abdomen soft, nontender, nondistended, active bowel sounds x4 quadrants Neuro: CN II-XII intact. Strength 5/5, equal bilaterally Extremities: Right knee wound VAC dressing intact. No drainage in the canister or tubing. Diffuse ecchymosis to the extremity. Surrounding tissue is soft andnontender to palpation. Psych: Mood and affect appropriate. Normal speech. Objective <Heidi Mesa, [employer] - Last Filed: 09/09/23 13:22> Labs 09/08/23 09:52 09/08/23 09:52 Additional Results Results Comments: I reviewed clinical lab tests, radiology reports and obtained and summated medical records and have ordered follow up lab tests and imaging studies as needed for rehabilitation care. Medications and Allergies Allergies and Active Meds: Allergies oxycodone [Percocet] Allergy (Unknown, Verified 08/25/23 10:52) Vomiting sulfamethoxazole [Bactrim] Allergy (Unknown, Verified 08/25/23 10:52) Unknown Reaction trimethoprim [Bactrim] Allergy (Unknown, Verified 08/25/23 10:52) Unknown Reaction acetaminophen [From Vicodin] Allergy (Verified 09/02/23 15:58) Vomiting hydrocodone [From Vicodin] Allergy (Verified 09/02/23 15:58) Vomiting Rocuronium [place] Allergy (Unknown, Uncoded 08/20/23 14:19) breathing difficulty Active Medications Generic Name Dose Route Start Last Admin Trade Name Freq PRN Reason Stop Dose Admin Acetaminophen 1,000 mg 09/02/23 15:15 09/09/23 06:46 Acetaminophen 500 Mg Tablet PO 09/01/24 15:14 1,000 mg Q8H ERNIE Administration Al Hydrox/Mg Hydrox/Simethicone 30 ml 09/02/23 14:57 09/03/23 00:58 Mag Hydrox/Al Hydrox/Simeth 30 Ml Udc PO 09/01/24 14:56 30 ml Q4H PRN Administration Indigestion Alprazolam 0.25 mg 09/03/23 10:30 09/08/23 22:31 Alprazolam 0.25 Mg Tablet PO 03/01/24 10:29 0.25 mg Q6H PRN Administration Anxiety Aspirin 81 mg 09/02/23 21:00 09/03/23 09:08 Aspirin 81 Mg Tablet.Dr PO 09/01/24 20:59 81 mg BID ERNIE Administration Atorvastatin Calcium 10 mg 09/02/23 22:00 09/02/23 22:50 Atorvastatin 10 Mg Tablet PO 09/01/24 21:59 10 mg QHS ERNIE Administration Bisacodyl 10 mg 09/02/23 14:57 Bisacodyl 10 Mg Supp.Rect DE 09/01/24 14:56 DAILY PRN Constipation Cefadroxil 500 mg 09/02/23 21:00 09/09/23 09:23 Cefadroxil 500 Mg Capsule PO 09/09/23 20:59 500 mg BID ERNIE Administration Diclofenac Sodium 2 gm 09/02/23 18:00 09/09/23 09:24 Diclofenac Sodium 1% Gel 100 Gm Tube TOPICAL 09/01/24 17:59 2 gm QID ERNIE Administration Docusate Sodium 283 mg 09/02/23 14:57 Docusate Enema 283 Mg/5 Ml Enema DE 09/01/24 14:56 DAILY PRN Constipation Docusate Sodium 100 mg 09/05/23 14:06 Docusate 100 Mg Capsule PO 09/03/24 08:59 BID PRN Constipation Enoxaparin Sodium 40 mg 09/03/23 10:35 09/09/23 09:24 Enoxaparin 40 Mg/0.4 Ml Syringe SUBCUT 09/02/24 10:34 40 mg DAILY@1000 ERNIE Administration Home Med 1 each 09/02/23 23:30 Home Meds Kept In Pharmacy MISCELLANE 09/01/24 23:29 PRN PRN zz.Pharmacy Note Lactulose 30 gm 09/02/23 14:57 Lactulose 20 Gm/30 Ml Udc PO 09/01/24 14:56 DAILY PRN Constipation Loratadine 10 mg 09/07/23 09:00 09/09/23 09:23 Loratadine 10 Mg Tablet PO 09/06/24 08:59 10 mg QAM ERNIE Administration Losartan Potassium 25 mg 09/03/23 09:00 09/09/23 09:23 Losartan 25 Mg Tablet PO 09/02/24 08:59 25 mg QAM ERNIE Administration Metoprolol Succinate 25 mg 09/02/23 21:00 09/08/23 22:32 Metoprolol Succinate 25 Mg Tab.Er.24h PO 09/01/24 20:59 25 mg QPM ERNIE Administration Multivitamins 1 tab 09/03/23 09:00 09/09/23 09:24 Multivitamin 1 Tab Tablet PO 09/02/24 08:59 1 tab DAILY ERNIE Administration Ondansetron HCl 4 mg 09/03/23 00:58 09/03/23 06:18 Ondansetron Odt 4 Mg Tab.Rapdis PO 09/01/24 15:23 4 mg Q6H PRN Administration Nausea Oxycodone HCl 5 mg 09/02/23 15:13 09/08/23 20:23 Oxycodone Ir 5 Mg Tablet PO 5 mg Q4H PRN Administration Pain Scale 6 - 10 Pantoprazole Sodium 40 mg 09/04/23 09:00 09/09/23 09:24 Pantoprazole 40 Mg Tablet. PO 09/03/24 08:59 40 mg DAILY ERNIE Administration Polyethylene Glycol 17 gm 09/05/23 14:06 Polyethylene Glycol 3350 17 Gm Powd.Pack PO 09/02/24 08:59 DAILY PRN Constipation Prednisone 10 mg 09/03/23 09:00 09/09/23 09:24 Prednisone 10 Mg Tablet PO 09/02/24 08:59 10 mg DAILY ERNIE Administration Sennosides 2 tab 09/03/23 12:00 Sennosides 8.6 Mg Tablet PO 09/02/24 11:59 DAILY@12 PRN If no BM in 2 days Sodium Chloride 0 ml 09/02/23 14:57 Sodium Chloride 0.9 % 10 Ml Syringe IV-PUSH 09/01/24 14:56 PRN PRN Flush Vitamin D 50 mcg 09/03/23 09:00 09/09/23 09:23 Cholecalciferol 25 Mcg (1,000 Units) Tablet PO 09/02/24 08:59 50 mcg DAILY ERNIE Administration Vitamin E 180 mg 09/03/23 09:00 09/09/23 09:24 Vitamin E (Dl Tocopheryl Acet) 180 Mg (400 Units) Capsule PO 09/02/24 08:59 180 mg DAILY ERNIE Administration Zolpidem Tartrate 10 mg 09/02/23 22:00 09/08/23 22:31 Zolpidem 10 Mg Tablet PO 02/29/24 21:59 10 mg QHS ERNIE Administration Assessment/Plan <Heidi Mesa, [employer] - Last Filed: 09/09/23 13:22> Assessment/Plan (1) Status post total right knee replacement: (2) Primary osteoarthritis of both knees: (3) Hyperlipidemia type II: (4) Primary hypertension: (5) CAD (coronary artery disease): (6) Impaired mobility and activities of daily living: (7) Anxiety: (8) Post-operative pain: Plan 82-year-old female presenting to acute inpatient rehab with functional impairments secondary to an elective right total knee arthroplasty which was performed on 08/[address] Pichardo. Uncomplicated procedure and postoperative course. * No further reports of orthostasis. She is feeling well this morning. Denies any lightheadedness/dizziness. Continue to monitor. Hold parameters are in for BP meds. * Doing very well in therapy and continues to improve daily. Wants to remain admitted for now as she it not yet at her baseline. Patient education Pressure ulcer prophylaxis; encourage mobilization, frequent postural changes, pressure-relief techniques DVT prophylaxis Lovenox while inpatient, aspirin 81 mg twice daily at discharge Encourage deep breathing exercise incentive spirometry. Monitor bladder. Toileting schedule. Continue current bladder management, with scans as needed and CIC if needed. Start bowel care program every day to obtain continence, prevent ileus. Maintain fall precautions Gait and balance retraining Functional training and self-care and home management, including activities of daily living and instrumental activities of daily living Provision of the necessary gait aids and functional adaptive equipment to enhance the patient's a functional episcopal Ensure adequate nutrition and hydration Sleep: No issues Pain: Continue current regimen for now Discharge planning: Home alone in about a week. I spent 22 minutes for services, including [id number] encounter with the patient, discussion of the case, plan of care, and exam; and [id number] activities, such as reviewing pertinent life skills consultant documentation, recent therapynotes, laboratory and radiology studies, and discussion of case with care team including physician, nursing, bilingual patient support caseworker, and therapists. More than 50 % of time was spent on patient/family counseling or coordination ofcare. <Elijah Mayers MD - Last Filed: 09/10/23 09:32> Assessment/Plan (1) Status post total right knee replacement: (2) Primary osteoarthritis of both knees: (3) Hyperlipidemia type II: (4) Primary hypertension: (5) CAD (coronary artery disease): (6) Impaired mobility and activities of daily living: (7) Anxiety: (8) Post-operative pain: Plan 82-year-old female presenting to acute inpatient rehab with functional impairments secondary to an elective right total knee arthroplasty which was performed on 08/[address] Pichardo. Uncomplicated procedure and postoperative course. * No further reports of orthostasis. She is feeling well this morning. Denies any lightheadedness/dizziness. Continue to monitor. Hold parameters are in for BP meds. * Doing very well in therapy and continues to improve daily. Wants to remain admitted for now as she it not yet at her baseline. Patient education Pressure ulcer prophylaxis; encourage mobilization, frequent postural changes, pressure-relief techniques DVT prophylaxis Lovenox while inpatient, aspirin 81 mg twice daily at discharge Encourage deep breathing exercise incentive spirometry. Monitor bladder. Toileting schedule. Continue current bladder management, with scans as needed and CIC if needed. Start bowel care program every day to obtain continence, prevent ileus. Maintain fall precautions Gait and balance retraining Functional training and self-care and home management, including activities of daily living and instrumental activities of daily living Provision of the necessary gait aids and functional adaptive equipment to enhance the patient's a functional episcopal Ensure adequate nutrition and hydration Sleep: No issues Pain: Continue current regimen for now Discharge planning: Home alone in about a week. I spent 22 minutes for services, including [id number] encounter with the patient, discussion of the case, plan of care, and exam; and [id number] activities, such as reviewing pertinent life skills consultant documentation, recent therapynotes, laboratory and radiology studies, and discussion of case with care team including physician, nursing, bilingual patient support caseworker, and therapists. More than 50 % of time was spent on patient/family counseling or coordination ofcare. Patient was personally seen by me, Dr. Mayers, on the day of encounter, reviewed the history and the relevant portions of the chart, including current orders, allied health and life skills consultant notes, labs/imaging and performed timmons elements of exam and I formulated the plan of care and facilitated the medical decision making. I completed a substantive portion of this encounter, the medical decision makingportion of this note in its entirety, including Allied health note review, nursing note review, life skills consultant note review, discussion with nursing and case management, and more than 50% of my time was spent on counseling and coordination of care, time spent 30 minutes Case reviewed at weekly team conference, discussed progress and goals of care, barriers/problems to date and discharge planning. Documented By: Heidi Mesa APRN 09/09/23 1 315 Signed By: <Electronically signed by CHASITY Mesa> 09/09/23 1322 <Electronically signed by Elijah Mayers MD> 09/10/23 0932 [facility] Work Phone: [phone] Progress note Author Elijah Mayers [facility] September 08, 2023 2:53pm Note Date/Time September 08, 2023 2:5 3pm [facility] [address] [place] [address] Physiatry(Rehab) Progress Note Signed Patient: Ashley Brown MR#: [id number] : 1940 Acct:[id number] Age/Sex: 82 / F Adm Date: 4 Loc: Room: 9F5420-0 Type: ADM IN Attending Dr: Elijah Mayers MD Copies to: ~ Date of Service: 09/08/2023 Subjective Subjective Narrative: Ms. Brown is a 82 year old female with PMH of of paroxysmal A-fib, GERD, arthritis, hypertension, hyperlipidemia, CAD, CABG, presenting to acute patient rehab with functional impairments in the setting of total right knee arthroplasty. She presented to the hospital on 09/01/2023 for an elective right knee replacementafter failing conservative treatment. The above robotic assisted procedure was performed by Dr. Pichardo without major complication. Patient can weight-bear as tolerated to the operative extremity. Aspirin 81 mg twice daily x 35 days for DVT prophylaxis. Her hospital course was uncomplicated. She was seen by PT/OT and recommended acute rehab to address functional impairments. On admission patient is alert, pleasant, oriented x 3. Reports anticipated right knee discomfort, worse with weightbearing. She is quite sensitive to mostpain medications, which typically cause significant nausea and vomiting and has to be very cautious what she takes. She reported feeling nauseous and vomiting yesterday evening after receiving some pain medications. She was given Compazine injection by hospitalist ANESTHESIA ASSISTANT which 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 She does take prn alprazolam for anxiety which was added. Patient was also made aware she has po antiemetics ordered if she needs them. Patient otherwise has no acute concerns or complaints. She is tolerating therapy and is able to ambulate short distances with a rolling walker and contact-guard assist. Her plan is to return home alone. She does have good social support consisting of friends and family. Interval history: Patient examined at the bedside. Resting comfortably in bed. She appears in nodistress today. This morning, patient did become dizzy and lightheaded while working with therapy in the shower. Reported that she did have a drop in her blood pressure as well. Due to some continued lethargy, and lab workup was doneand was stable. Patient reported improvement later in the day. Continues to endorse some right knee swelling but overall improving. Review of Systems Review of Systems All other systems reviewed & are negative unless noted below or in HPI Exam Physical Exam Vital Signs: Temp Pulse Resp BP Pulse Ox O2 Del Method 97.6 F 71 18 133/71 100 Room Air 09/08/23 14:28 09/08/23 14:28 09/08/23 14:28 09/08/23 14:28 09/08/23 14:28 09/08/23 14:28 Narrative: General: Awake, alert, oriented x3 HENT: Normal to inspection, normocephalic, atraumatic Eyes: PERRL, normal conjunctiva and sclera Neck: Normal ROM, normal visual inspection. Trachea midline. Cardio: Regular heart rate and rhythm Respiratory: Clear to auscultation bilaterally. Normal respiratory effort. No respiratory distress. GI: Abdomen soft, nontender, nondistended, active bowel sounds x4 quadrants Neuro: CN II-XII intact. Strength 5/5, equal bilaterally Extremities: Right knee wound VAC dressing intact. No drainage in the canister or tubing. Diffuse ecchymosis to the extremity. Surrounding tissue is soft andnontender to palpation. Psych: Mood and affect appropriate. Normal speech. Objective Labs 09/08/23 09:52 09/08/23 09:52 Labs: Laboratory Results - last 24 hr 09/07/23 09/08/23 09/08/23 15:54 05:57 09:52 Corrected WBC 7.3 Uncorrected WBC Count 7.3 RBC 3.52 L Hgb 11.3 L Hct 34.4 MCV 97.7 MCH 32.2 MCHC 32.9 RDW 14.0 Plt Count 419 MPV 8.0 Neut % (Auto) 54.1 Lymph % (Auto) 31.1 [place] % (Auto) 9.5 Eos % (Auto) 4.0 Baso % (Auto) 1.3 Nucleat RBC Rel Count 0.1 Neut # (Auto) 4.0 Lymph # (Auto) 2.3 [place] # (Auto) 0.7 Eos # (Auto) 0.3 Baso # (Auto) 0.1 PHA Creatinine Clear 42.73 36.34 Sodium 137 136 Potassium 4.4 3.6 Chloride 104 103 Carbon Dioxide 27.4 25.7 Anion Gap 10.0 10.9 BUN 17 20 Creatinine 0.91 1.07 Est GFR (CKD-EPI) > 60.0 52.511 Glucose 85 103 H Calcium 8.9 8.5 L Total Bilirubin 0.5 0.4 Direct Bilirubin 0.10 Indirect Bilirubin 0.4 AST 115 H 71 H ALT 126 H 99 H Alkaline Phosphatase 128 H 125 H Total Protein 6.9 6.3 L Albumin 3.7 3.4 L Globulin 3.2 2.9 Albumin/Globulin Ratio 1.2 1.2 Medications and Allergies Allergies and Active Meds: Allergies oxycodone [Percocet] Allergy (Unknown, Verified 08/25/23 10:52) Vomiting sulfamethoxazole [Bactrim] Allergy (Unknown, Verified 08/25/23 10:52) Unknown Reaction trimethoprim [Bactrim] Allergy (Unknown, Verified 08/25/23 10:52) Unknown Reaction acetaminophen [From Vicodin] Allergy (Verified 09/02/23 15:58) Vomiting hydrocodone [From Vicodin] Allergy (Verified 09/02/23 15:58) Vomiting Rocuronium [place] Allergy (Unknown, Uncoded 08/20/23 14:19) breathing difficulty Active Medications Generic Name Dose Route Start Last Admin Trade Name Freq PRN Reason Stop Dose Admin Acetaminophen 1,000 mg 09/02/23 15:15 09/08/23 14:24 Acetaminophen 500 Mg Tablet PO 09/01/24 15:14 1,000 mg Q8H ERNIE Administration Al Hydrox/Mg Hydrox/Simethicone 30 ml 09/02/23 14:57 09/03/23 00:58 Mag Hydrox/Al Hydrox/Simeth 30 Ml Udc PO 09/01/24 14:56 30 ml Q4H PRN Administration Indigestion Alprazolam 0.25 mg 09/03/23 10:30 09/07/23 23:54 Alprazolam 0.25 Mg Tablet PO 03/01/24 10:29 0.25 mg Q6H PRN Administration Anxiety Aspirin 81 mg 09/02/23 21:00 09/03/23 09:08 Aspirin 81 Mg Tablet.Dr PO 09/01/24 20:59 81 mg BID ERNIE Administration Atorvastatin Calcium 10 mg 09/02/23 22:00 09/02/23 22:50 Atorvastatin 10 Mg Tablet PO 09/01/24 21:59 10 mg QHS ERNIE Administration Bisacodyl 10 mg 09/02/23 14:57 Bisacodyl 10 Mg Supp.Rect DE 09/01/24 14:56 DAILY PRN Constipation Cefadroxil 500 mg 09/02/23 21:00 09/08/23 09:48 Cefadroxil 500 Mg Capsule PO 09/09/23 20:59 500 mg BID ERNIE Administration Diclofenac Sodium 2 gm 09/02/23 18:00 09/08/23 14:25 Diclofenac Sodium 1% Gel 100 Gm Tube TOPICAL 09/01/24 17:59 2 gm QID ERNIE Administration Docusate Sodium 283 mg 09/02/23 14:57 Docusate Enema 283 Mg/5 Ml Enema DE 09/01/24 14:56 DAILY PRN Constipation Docusate Sodium 100 mg 09/05/23 14:06 Docusate 100 Mg Capsule PO 09/03/24 08:59 BID PRN Constipation Enoxaparin Sodium 40 mg 09/03/23 10:35 09/08/23 09:49 Enoxaparin 40 Mg/0.4 Ml Syringe SUBCUT 09/02/24 10:34 40 mg DAILY@1000 ERNIE Administration Home Med 1 each 09/02/23 23:30 Home Meds Kept In Pharmacy MISCELLANE 09/01/24 23:29 PRN PRN zz.Pharmacy Note Lactulose 30 gm 09/02/23 14:57 Lactulose 20 Gm/30 Ml Udc PO 09/01/24 14:56 DAILY PRN Constipation Loratadine 10 mg 09/07/23 09:00 09/08/23 09:49 Loratadine 10 Mg Tablet PO 09/06/24 08:59 10 mg QAM ERNIE Administration Losartan Potassium 25 mg 09/03/23 09:00 09/08/23 09:56 Losartan 25 Mg Tablet PO 09/02/24 08:59 Not Given QAM ERNIE Metoprolol Succinate 25 mg 09/02/23 21:00 09/07/23 21:28 Metoprolol Succinate 25 Mg Tab.Er.24h PO 09/01/24 20:59 25 mg QPM ERNIE Administration Multivitamins 1 tab 09/03/23 09:00 09/08/23 09:49 Multivitamin 1 Tab Tablet PO 09/02/24 08:59 1 tab DAILY ERNIE Administration Ondansetron HCl 4 mg 09/03/23 00:58 09/03/23 06:18 Ondansetron Odt 4 Mg Tab.Rapdis PO 09/01/24 15:23 4 mg Q6H PRN Administration Nausea Oxycodone HCl 5 mg 09/02/23 15:13 09/08/23 14:24 Oxycodone Ir 5 Mg Tablet PO 5 mg Q4H PRN Administration Pain Scale 6 - 10 Pantoprazole Sodium 40 mg 09/04/23 09:00 09/08/23 09:49 Pantoprazole 40 Mg Tablet.Dr PO 09/03/24 08:59 40 mg DAILY ERNIE Administration Polyethylene Glycol 17 gm 09/05/23 14:06 Polyethylene Glycol 3350 17 Gm Powd.Pack PO 09/02/24 08:59 DAILY PRN Constipation Prednisone 10 mg 09/03/23 09:00 09/08/23 09:49 Prednisone 10 Mg Tablet PO 09/02/24 08:59 10 mg DAILY ERNIE Administration Sennosides 2 tab 09/03/23 12:00 Sennosides 8.6 Mg Tablet PO 09/02/24 11:59 DAILY@12 PRN If no BM in 2 days Sodium Chloride 0 ml 09/02/23 14:57 Sodium Chloride 0.9 % 10 Ml Syringe IV-PUSH 09/01/24 14:56 PRN PRN Flush Vitamin D 50 mcg 09/03/23 09:00 09/08/23 09:48 Cholecalciferol 25 Mcg (1,000 Units) Tablet PO 09/02/24 08:59 50 mcg DAILY ERNIE Administration Vitamin E 180 mg 09/03/23 09:00 09/08/23 09:49 Vitamin E (Dl Tocopheryl Acet) 180 Mg (400 Units) Capsule PO 09/02/24 08:59 180 mg DAILY ERNIE Administration Zolpidem Tartrate 10 mg 09/02/23 22:00 09/07/23 21:28 Zolpidem 10 Mg Tablet PO 02/29/24 21:59 10 mg QHS ERNIE Administration Assessment/Plan Assessment/Plan (1) Status post total right knee replacement: (2) Primary osteoarthritis of both knees: (3) Hyperlipidemia type II: (4) Primary hypertension: (5) CAD (coronary artery disease): (6) Impaired mobility and activities of daily living: (7) Anxiety: (8) Post-operative pain: Plan 82-year-old female presenting to acute inpatient rehab with functional impairments secondary to an elective right total knee arthroplasty which was performed on 08/[address] Pichardo. Uncomplicated procedure and postoperative course. * Orthostatic this morning with therapy. Improved later in the day. No active signs of dehydration. Labs reviewed and demonstrate no anemia or acute kidney injury. Continue to monitor. Likely also related to polypharmacy given that patient is on oxycodone with home medications of Xanax and Ambien. If further episodes will discontinue benzodiazepines. * 09/05/2023 venous ultrasound demonstrates no acute DVT/SVT. Continue to monitor at this time * Monitor right knee incision for signs of infection. Reinforce the wound VAC dressing to prevent drainage. Patient education Pressure ulcer prophylaxis; encourage mobilization, frequent postural changes, pressure-relief techniques DVT prophylaxis Lovenox while inpatient, aspirin 81 mg twice daily at discharge Encourage deep breathing exercise incentive spirometry. Monitor bladder. Toileting schedule. Continue current bladder management, with scans as needed and CIC if needed. Start bowel care program every day to obtain continence, prevent ileus. Maintain fall precautions Gait and balance retraining Functional training and self-care and home management, including activities of daily living and instrumental activities of daily living Provision of the necessary gait aids and functional adaptive equipment to enhance the patient's a functional episcopal Ensure adequate nutrition and hydration Sleep: No issues Pain: Continue current regimen for now Discharge planning: Home alone in about a week. I spent 35 minutes for services, including jdfo-so-[id number] encounter with the patient, discussion of the case, plan of care, and exam; and [id number] activities, such as reviewing pertinent life skills consultant documentation, recent therapynotes, laboratory and radiology studies, and discussion of case with care team including physician, nursing, bilingual patient support caseworker, and therapists. More than 50 % of time was spent on patient/family counseling or coordination ofcare. Documented By: Elijah Mayers MD [id number] Signed By: <Electronically signed by Elijah Mayers MD> 09/08/23 1453 [facility] Work Phone: [phone] Progress note Author Elijah Mayers [facility] September 08, 2023 1:35pm Note Date/Time September 05, 2023 1:57 pm [facility] [address] [place] [address] Physiatry(Rehab) Progress Note Signed Patient: Ashley Brown MR#: [id number] : 1940 Acct:[id number] Age/Sex: 82 / F Adm Date: 4 Loc: Room: 4W9934-7 Type: ADM IN Attending Dr: Elijah Mayers MD Copies to: ~ Date of Service: 09/05/2023 Subjective Subjective Narrative: Ms. Brown is a 82 year old female with PMH of of paroxysmal A-fib, GERD, arthritis, hypertension, hyperlipidemia, CAD, CABG, presenting to acute patient rehab with functional impairments in the setting of total right knee arthroplasty. She presented to the hospital on 09/01/2023 for an elective right knee replacementafter failing conservative treatment. The above robotic assisted procedure was performed by Dr. Bayamon without major complication. Patient can weight-bear as tolerated to the operative extremity. Aspirin 81 mg twice daily x 35 days for DVT prophylaxis. Her hospital course was uncomplicated. She was seen by PT/OT and recommended acute rehab to address functional impairments. On admission patient is alert, pleasant, oriented x 3. Reports anticipated right knee discomfort, worse with weightbearing. She is quite sensitive to mostpain medications, which typically cause significant nausea and vomiting and has to be very cautious what she takes. She reported feeling nauseous and vomiting yesterday evening after receiving some pain medications. She was given Compazine injection by hospitalist ANESTHESIA ASSISTANT which 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 She does take prn alprazolam for anxiety which was added. Patient was also made aware she has po antiemetics ordered if she needs them. Patient otherwise has no acute concerns or complaints. She is tolerating therapy and is able to ambulate short distances with a rolling walker and contact-guard assist. Her plan is to return home alone. She does have good social support consisting of friends and family. Interval history: Patient evaluated in her room. She is alert and oriented, appears in no distress. Her pain is mild at rest. She is only taking Tylenol this time. Herleg remains somewhat edematous despite Maru wrapping. It is mildly tender to palpation in the calf area. I will obtain a venous ultrasound to rule out a DVT. She did not sleep well last night even though she took her Ambien. No specific reason for that insomnia, just could not get comfortable. Ashley is pleased with her therapy progress. She is ambulatory functional distances with a walker and standby assistance. SBA with transfers and bed mobility. Review of Systems Review of Systems All other systems reviewed & are negative unless noted below or in HPI Exam Physical Exam Vital Signs: Temp Pulse Resp BP Pulse Ox O2 Del Method 98.4 F 66 16 137/75 100 Room Air 09/05/23 04:22 09/05/23 10:00 09/05/23 04:22 09/05/23 10:00 09/05/23 04:22 09/05/23 10:28 Narrative: General: Awake, alert, oriented x3 HENT: Normal to inspection, normocephalic, atraumatic Eyes: PERRL, normal conjunctiva and sclera Neck: Normal ROM, normal visual inspection. Trachea midline. Cardio: Regular heart rate and rhythm Respiratory: Clear to auscultation bilaterally. Normal respiratory effort. No respiratory distress. GI: Abdomen soft, nontender, nondistended, active bowel sounds x4 quadrants Neuro: CN II-XII intact. Strength 5/5, equal bilaterally Extremities: Right knee wound VAC dressing intact. No drainage in the canister or tubing. Diffuse ecchymosis to the extremity. Surrounding tissue is soft andnontender to palpation. Psych: Mood and affect appropriate. Normal speech. Objective Labs 09/03/23 04:55 09/03/23 04:55 Additional Results Results Comments: I reviewed clinical lab tests, radiology reports and obtained and summated medical records and have ordered follow up lab tests and imaging studies as needed for rehabilitation care. Medications and Allergies Allergies and Active Meds: Allergies oxycodone [Percocet] Allergy (Unknown, Verified 08/25/23 10:52) Vomiting sulfamethoxazole [Bactrim] Allergy (Unknown, Verified 08/25/23 10:52) Unknown Reaction trimethoprim [Bactrim] Allergy (Unknown, Verified 08/25/23 10:52) Unknown Reaction acetaminophen [From Vicodin] Allergy (Verified 09/02/23 15:58) Vomiting hydrocodone [From Vicodin] Allergy (Verified 09/02/23 15:58) Vomiting Rocuronium [place] Allergy (Unknown, Uncoded 08/20/23 14:19) breathing difficulty Active Medications Generic Name Dose Route Start Last Admin Trade Name Freq PRN Reason Stop Dose Admin Acetaminophen 1,000 mg 09/02/23 15:15 09/05/23 06:25 Acetaminophen 500 Mg Tablet PO 09/01/24 15:14 1,000 mg Q8H ERNIE Administration Al Hydrox/Mg Hydrox/Simethicone 30 ml 09/02/23 14:57 09/03/23 00:58 Mag Hydrox/Al Hydrox/Simeth 30 Ml Udc PO 09/01/24 14:56 30 ml Q4H PRN Administration Indigestion Alprazolam 0.25 mg 09/03/23 10:30 09/05/23 10:20 Alprazolam 0.25 Mg Tablet PO 03/01/24 10:29 0.25 mg Q6H PRN Administration Anxiety Aspirin 81 mg 09/02/23 21:00 09/03/23 09:08 Aspirin 81 Mg Tablet. PO 09/01/24 20:59 81 mg BID ERNIE Administration Atorvastatin Calcium 10 mg 09/02/23 22:00 09/02/23 22:50 Atorvastatin 10 Mg Tablet PO 09/01/24 21:59 10 mg QHS ERNIE Administration Bisacodyl 10 mg 09/02/23 14:57 Bisacodyl 10 Mg Supp.Rect DE 09/01/24 14:56 DAILY PRN Constipation Cefadroxil 500 mg 09/02/23 21:00 09/05/23 10:01 Cefadroxil 500 Mg Capsule PO 500 mg BID [facility] Administration Diclofenac Sodium 2 gm 09/02/23 18:00 09/05/23 10:02 Diclofenac Sodium 1% Gel 100 Gm Tube TOPICAL 09/01/24 17:59 2 gm QID [facility] Administration Docusate Sodium 283 mg 09/02/23 14:57 Docusate Enema 283 Mg/5 Ml Enema DE 09/01/24 14:56 DAILY PRN Constipation Docusate Sodium 100 mg 09/04/23 09:00 09/05/23 10:02 Docusate 100 Mg Capsule PO 09/03/24 08:59 Not Given BID [facility] Enoxaparin Sodium 40 mg 09/03/23 10:35 09/05/23 10:02 Enoxaparin 40 Mg/0.4 Ml Syringe SUBCUT 09/02/24 10:34 40 mg DAILY@1000 [facility] Administration Home Med 1 each 09/02/23 23:30 Home Meds Kept In Pharmacy [facility] [place] 09/01/24 23:29 PRN PRN zz.Pharmacy Note Lactulose 30 gm 09/02/23 14:57 Lactulose 20 Gm/30 Ml Udc PO 09/01/24 14:56 DAILY PRN Constipation Losartan Potassium 25 mg 09/03/23 09:00 09/05/23 10:01 Losartan 25 Mg Tablet PO 09/02/24 08:59 25 mg QAM ERNIE Administration Metoprolol Succinate 25 mg 09/02/23 21:00 09/04/23 20:56 Metoprolol Succinate 25 Mg Tab.Er.24h PO 09/01/24 20:59 25 mg QPM ERNIE Administration Multivitamins 1 tab 09/03/23 09:00 09/05/23 10:01 Multivitamin 1 Tab Tablet PO 09/02/24 08:59 1 tab DAILY ERNIE Administration Ondansetron HCl 4 mg 09/03/23 00:58 09/03/23 06:18 Ondansetron Odt 4 Mg Tab.Rapdis PO 09/01/24 15:23 4 mg Q6H PRN Administration Nausea Oxycodone HCl 5 mg 09/02/23 15:13 Oxycodone Ir 5 Mg Tablet PO Q4H PRN Pain Scale 6 - 10 Pantoprazole Sodium 40 mg 09/04/23 09:00 09/05/23 10:01 Pantoprazole 40 Mg Tablet. PO 09/03/24 08:59 40 mg DAILY ERNIE Administration Polyethylene Glycol 17 gm 09/03/23 09:00 09/05/23 10:02 Polyethylene Glycol 3350 17 Gm Powd.Pack PO 09/02/24 08:59 Not Given DAILY ERNIE Prednisone 10 mg 09/03/23 09:00 09/05/23 10:01 Prednisone 10 Mg Tablet PO 09/02/24 08:59 10 mg DAILY ERNIE Administration Senna/Docusate Sodium 2 tab 09/03/23 09:00 09/05/23 10:02 Sennosides/Docusate 8.6-50mg 1 Tab Tablet PO 09/02/24 08:59 Not Given DAILY ERNIE Sennosides 2 tab 09/03/23 12:00 Sennosides 8.6 Mg Tablet PO 09/02/24 11:59 DAILY@12 PRN If no BM in 2 days Sodium Chloride 0 ml 09/02/23 14:57 Sodium Chloride 0.9 % 10 Ml Syringe IV-PUSH 09/01/24 14:56 PRN PRN Flush Vitamin D 50 mcg 09/03/23 09:00 09/05/23 10:01 Cholecalciferol 25 Mcg (1,000 Units) Tablet PO 09/02/24 08:59 50 mcg DAILY ERNIE Administration Vitamin E 180 mg 09/03/23 09:00 09/05/23 10:01 Vitamin E (Dl Tocopheryl Acet) 180 Mg (400 Units) Capsule PO 09/02/24 08:59 180 mg DAILY ERNIE Administration Zolpidem Tartrate 10 mg 09/02/23 22:00 09/04/23 21:01 Zolpidem 10 Mg Tablet PO 02/29/24 21:59 10 mg QHS ERNIE Administration Assessment/Plan Assessment/Plan (1) Status post total right knee replacement: (2) Primary osteoarthritis of both knees: (3) Hyperlipidemia type II: (4) Primary hypertension: (5) CAD (coronary artery disease): (6) Impaired mobility and activities of daily living: (7) Anxiety: (8) Post-operative pain: Plan 82-year-old female presenting to acute inpatient rehab with functional impairments secondary to an elective right total knee arthroplasty which was performed on 08/[address] Pichardo. Uncomplicated procedure and postoperative course. * Obtain a venous ultrasound to rule out right lower extremity DVT. * Constipation resolved. Moving bowels regularly. Change bowel medications to prn. * Progressing towards goals in therapy. Improving. Patient education Pressure ulcer prophylaxis; encourage mobilization, frequent postural changes, pressure-relief techniques DVT prophylaxis Lovenox while inpatient, aspirin 81 mg twice daily at discharge Encourage deep breathing exercise incentive spirometry. Monitor bladder. Toileting schedule. Continue current bladder management, with scans as needed and CIC if needed. Start bowel care program every day to obtain continence, prevent ileus. Maintain fall precautions Gait and balance retraining Functional training and self-care and home management, including activities of daily living and instrumental activities of daily living Provision of the necessary gait aids and functional adaptive equipment to enhance the patient's a functional episcopal Ensure adequate nutrition and hydration Sleep: No issues Pain: Continue current regimen for now Discharge planning: Home alone in about a week. I spent 17 minutes for services, including [id number] encounter with the patient, discussion of the case, plan of care, and exam; and [id number] activities, such as reviewing pertinent life skills consultant documentation, recent therapynotes, laboratory and radiology studies, and discussion of case with care team including physician, nursing, bilingual patient support caseworker, and therapists. More than 50 % of time was spent on patient/family counseling or coordination ofcare. <Statement entered by Elijah Mayers MD - 09/08/23 13:35> This documentation has been reviewed and approved. Documented By: Heidi Mesa APRN 09/05/23 1 356 Signed By: <Electronically signed by CHASITY Mesa> 09/05/23 1413 <Electronically signed by Elijah Mayers MD> 09/08/23 1910 [facility] Work Phone: 1(368) 941-296503-11-2024 Progress note Author Elijah Mayers [facility] September 08, 2023 1:35pm Note Date/Time September 07, 2023 8:2 7pm [facility] [address] [place] [address] Physiatry(Rehab) Progress Note Signed Patient: Ashley Brown MR#: [id number] : 1940 Acct:[id number] Age/Sex: 82 / F Adm Date: 4 Loc: Room: 8L5122-4 Type: ADM IN Attending Dr: Elijah Mayers MD Copies to: ~ Date of Service: 09/07/2023 Subjective Subjective Narrative: Ms. Brown is a 82 year old female with PMH of of paroxysmal A-fib, GERD, arthritis, hypertension, hyperlipidemia, CAD, CABG, presenting to acute patient rehab with functional impairments in the setting of total right knee arthroplasty. She presented to the hospital on 09/01/2023 for an elective right knee replacementafter failing conservative treatment. The above robotic assisted procedure was performed by Dr. Pichardo without major complication. Patient can weight-bear as tolerated to the operative extremity. Aspirin 81 mg twice daily x 35 days for DVT prophylaxis. Her hospital course was uncomplicated. She was seen by PT/OT and recommended acute rehab to address functional impairments. On admission patient is alert, pleasant, oriented x 3. Reports anticipated right knee discomfort, worse with weightbearing. She is quite sensitive to mostpain medications, which typically cause significant nausea and vomiting and has to be very cautious what she takes. She reported feeling nauseous and vomiting yesterday evening after receiving some pain medications. She was given Compazine injection by hospitalist ANESTHESIA ASSISTANT which 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 She does take prn alprazolam for anxiety which was added. Patient was also made aware she has po antiemetics ordered if she needs them. Patient otherwise has no acute concerns or complaints. She is tolerating therapy and is able to ambulate short distances with a rolling walker and contact-guard assist. Her plan is to return home alone. She does have good social support consisting of friends and family. Interval history: Patient examined at the bedside. She is alert, pleasant, oriented. Offers no acute complaints or concerns. Right lower extremity edema appears unchanged. She has a elevation of drainage at the bottom of the dressing. There is no surrounding erythema or induration. Scattered postoperative ecchymosis appear to be resolving. Venous ultrasound from 09/04 was negative for DVT. I encouragedthe patient to continue to elevate, ice, and compress the extremity. She otherwise has no acute concerns or complaints. She is tolerating therapy and feels as though she is improving. Hopeful for discharge home soon. Review of Systems Review of Systems All other systems reviewed & are negative unless noted below or in HPI Exam Physical Exam Vital Signs: Temp Pulse Resp BP Pulse Ox O2 Del Method 97.4 F L 77 16 184/76 H 97 Room Air 09/07/23 15:06 09/07/23 15:06 09/07/23 15:06 09/07/23 15:06 09/07/23 15:06 09/07/23 15:06 Narrative: General: Awake, alert, oriented x3 HENT: Normal to inspection, normocephalic, atraumatic Eyes: PERRL, normal conjunctiva and sclera Neck: Normal ROM, normal visual inspection. Trachea midline. Cardio: Regular heart rate and rhythm Respiratory: Clear to auscultation bilaterally. Normal respiratory effort. No respiratory distress. GI: Abdomen soft, nontender, nondistended, active bowel sounds x4 quadrants Neuro: CN II-XII intact. Strength 5/5, equal bilaterally Extremities: Right knee wound VAC dressing intact. No drainage in the canister or tubing. Diffuse ecchymosis to the extremity. Surrounding tissue is soft andnontender to palpation. Psych: Mood and affect appropriate. Normal speech. Objective Labs 09/03/23 04:55 09/03/23 04:55 Labs: Laboratory Results - last 24 hr 09/07/23 15:54 Total Bilirubin 0.5 Direct Bilirubin 0.10 Indirect Bilirubin 0.4 AST 115 H ALT 126 H Alkaline Phosphatase 128 H Total Protein 6.9 Albumin 3.7 Globulin 3.2 Albumin/Globulin Ratio 1.2 Medications and Allergies Allergies and Active Meds: Allergies oxycodone [Percocet] Allergy (Unknown, Verified 08/25/23 10:52) Vomiting sulfamethoxazole [Bactrim] Allergy (Unknown, Verified 08/25/23 10:52) Unknown Reaction trimethoprim [Bactrim] Allergy (Unknown, Verified 08/25/23 10:52) Unknown Reaction acetaminophen [From Vicodin] Allergy (Verified 09/02/23 15:58) Vomiting hydrocodone [From Vicodin] Allergy (Verified 09/02/23 15:58) Vomiting Rocuronium [place] Allergy (Unknown, Uncoded 08/20/23 14:19) breathing difficulty Active Medications Generic Name Dose Route Start Last Admin Trade Name Freq PRN Reason Stop Dose Admin Acetaminophen 1,000 mg 09/02/23 15:15 09/07/23 15:03 Acetaminophen 500 Mg Tablet PO 09/01/24 15:14 1,000 mg Q8H ERNIE Administration Al Hydrox/Mg Hydrox/Simethicone 30 ml 09/02/23 14:57 09/03/23 00:58 Mag Hydrox/Al Hydrox/Simeth 30 Ml Udc PO 09/01/24 14:56 30 ml Q4H PRN Administration Indigestion Alprazolam 0.25 mg 09/03/23 10:30 09/07/23 00:43 Alprazolam 0.25 Mg Tablet PO 03/01/24 10:29 0.25 mg Q6H PRN Administration Anxiety Aspirin 81 mg 09/02/23 21:00 09/03/23 09:08 Aspirin 81 Mg Tablet.Dr PO 09/01/24 20:59 81 mg BID ERNIE Administration Atorvastatin Calcium 10 mg 09/02/23 22:00 09/02/23 22:50 Atorvastatin 10 Mg Tablet PO 09/01/24 21:59 10 mg QHS ERNIE Administration Bisacodyl 10 mg 09/02/23 14:57 Bisacodyl 10 Mg Supp.Rect DE 09/01/24 14:56 DAILY PRN Constipation Cefadroxil 500 mg 09/02/23 21:00 09/07/23 08:36 Cefadroxil 500 Mg Capsule PO 09/09/23 20:59 500 mg BID ERNIE Administration Diclofenac Sodium 2 gm 09/02/23 18:00 09/07/23 17:28 Diclofenac Sodium 1% Gel 100 Gm Tube TOPICAL 09/01/24 17:59 Not Given QID ERNIE Docusate Sodium 283 mg 09/02/23 14:57 Docusate Enema 283 Mg/5 Ml Enema DE 09/01/24 14:56 DAILY PRN Constipation Docusate Sodium 100 mg 09/05/23 14:06 Docusate 100 Mg Capsule PO 09/03/24 08:59 BID PRN Constipation Enoxaparin Sodium 40 mg 09/03/23 10:35 09/07/23 09:53 Enoxaparin 40 Mg/0.4 Ml Syringe SUBCUT 09/02/24 10:34 Not Given DAILY@1000 [facility] Home Med 1 each 09/02/23 23:30 Home Meds Kept In Pharmacy [facility] 09/01/24 23:29 PRN PRN zz.Pharmacy Note Lactulose 30 gm 09/02/23 14:57 Lactulose 20 Gm/30 Ml Udc PO 09/01/24 14:56 DAILY PRN Constipation Loratadine 10 mg 09/07/23 09:00 09/07/23 08:36 Loratadine 10 Mg Tablet PO 09/06/24 08:59 10 mg QAM ERNIE Administration Losartan Potassium 25 mg 09/03/23 09:00 09/07/23 08:36 Losartan 25 Mg Tablet PO 09/02/24 08:59 25 mg QAM ERNIE Administration Metoprolol Succinate 25 mg 09/02/23 21:00 09/06/23 20:49 Metoprolol Succinate 25 Mg Tab.Er.24h PO 09/01/24 20:59 25 mg QPM ERNIE Administration Multivitamins 1 tab 09/03/23 09:00 09/07/23 08:36 Multivitamin 1 Tab Tablet PO 09/02/24 08:59 1 tab DAILY ERNIE Administration Ondansetron HCl 4 mg 09/03/23 00:58 09/03/23 06:18 Ondansetron Odt 4 Mg Tab.Rapdis PO 09/01/24 15:23 4 mg Q6H PRN Administration Nausea Oxycodone HCl 5 mg 09/02/23 15:13 09/07/23 13:12 Oxycodone Ir 5 Mg Tablet PO 5 mg Q4H PRN Administration Pain Scale 6 - 10 Pantoprazole Sodium 40 mg 09/04/23 09:00 09/07/23 08:36 Pantoprazole 40 Mg Tablet.Dr PO 09/03/24 08:59 40 mg DAILY ERNIE Administration Polyethylene Glycol 17 gm 09/05/23 14:06 Polyethylene Glycol 3350 17 Gm Powd.Pack PO 09/02/24 08:59 DAILY PRN Constipation Prednisone 10 mg 09/03/23 09:00 09/07/23 08:36 Prednisone 10 Mg Tablet PO 09/02/24 08:59 10 mg DAILY ERNIE Administration Sennosides 2 tab 09/03/23 12:00 Sennosides 8.6 Mg Tablet PO 09/02/24 11:59 DAILY@12 PRN If no BM in 2 days Sodium Chloride 0 ml 09/02/23 14:57 Sodium Chloride 0.9 % 10 Ml Syringe IV-PUSH 09/01/24 14:56 PRN PRN Flush Vitamin D 50 mcg 09/03/23 09:00 09/07/23 08:36 Cholecalciferol 25 Mcg (1,000 Units) Tablet PO 09/02/24 08:59 50 mcg DAILY ERNIE Administration Vitamin E 180 mg 09/03/23 09:00 09/07/23 08:36 Vitamin E (Dl Tocopheryl Acet) 180 Mg (400 Units) Capsule PO 09/02/24 08:59 180 mg DAILY ERNIE Administration Zolpidem Tartrate 10 mg 09/02/23 22:00 09/06/23 22:10 Zolpidem 10 Mg Tablet PO 02/29/24 21:59 10 mg QHS ERNIE Administration Assessment/Plan Assessment/Plan (1) Status post total right knee replacement: (2) Primary osteoarthritis of both knees: (3) Hyperlipidemia type II: (4) Primary hypertension: (5) CAD (coronary artery disease): (6) Impaired mobility and activities of daily living: (7) Anxiety: (8) Post-operative pain: Plan 82-year-old female presenting to acute inpatient rehab with functional impairments secondary to an elective right total knee arthroplasty which was performed on 08/[address] Pichardo. Uncomplicated procedure and postoperative course. * 09/05/2023 venous ultrasound demonstrates no acute DVT/SVT. * Monitor right knee incision for signs of infection. Reinforce the wound VAC dressing to prevent drainage. * A.m. labs noted. Liver enzymes elevation appears to be resolving. Patient education Pressure ulcer prophylaxis; encourage mobilization, frequent postural changes, pressure-relief techniques DVT prophylaxis Lovenox while inpatient, aspirin 81 mg twice daily at discharge Encourage deep breathing exercise incentive spirometry. Monitor bladder. Toileting schedule. Continue current bladder management, with scans as needed and CIC if needed. Start bowel care program every day to obtain continence, prevent ileus. Maintain fall precautions Gait and balance retraining Functional training and self-care and home management, including activities of daily living and instrumental activities of daily living Provision of the necessary gait aids and functional adaptive equipment to enhance the patient's a functional episcopal Ensure adequate nutrition and hydration Sleep: No issues Pain: Continue current regimen for now Discharge planning: Home alone in about a week. I spent 19 minutes for services, including [id number] encounter with the patient, discussion of the case, plan of care, and exam; and [id number] activities, such as reviewing pertinent life skills consultant documentation, recent therapynotes, laboratory and radiology studies, and discussion of case with care team including physician, nursing, bilingual patient support caseworker, and therapists. More than 50 % of time was spent on patient/family counseling or coordination ofcare. <Statement entered by Elijah Mayers MD - 09/08/23 13:35> This documentation has been reviewed and approved. Documented By: Heidi Mesa APRN 09/07/23 2 021 Signed By: <Electronically signed by CHASITY Mesa> 09/07/232031 <Electronically signed by Elijah Mayers MD> 09/08/23 133 [facility] Work Phone: 1(248) 480-104103-07-2024 Progress note Author Elijah Mayers [facility] September 04, 2023 2:42pm Note Date/Time September 04, 2023 2:35 pm [facility] [address] [place] [address] Physiatry(Rehab) Progress Note Signed Patient: Ashley Brown MR#: [id number] : 1940 Acct:[id number] Age/Sex: 82 / F Adm Date: 4 Loc: Room: 8W9040-2 Type: ADM IN Attending Dr: Elijah Mayers MD Copies to: ~ Date of Service: 09/04/2023 Subjective Subjective Narrative: Ms. Brown is a 82 year old female with PMH of of paroxysmal A-fib, GERD, arthritis, hypertension, hyperlipidemia, CAD, CABG, presenting to acute patient rehab with functional impairments in the setting of total right knee arthroplasty. She presented to the hospital on 09/01/2023 for an elective right knee replacementafter failing conservative treatment. The above robotic assisted procedure was performed by Dr. Pichardo without major complication. Patient can weight-bear as tolerated to the operative extremity. Aspirin 81 mg twice daily x 35 days for DVT prophylaxis. Her hospital course was uncomplicated. She was seen by PT/OT and recommended acute rehab to address functional impairments. On admission patient is alert, pleasant, oriented x 3. Reports anticipated right knee discomfort, worse with weightbearing. She is quite sensitive to mostpain medications, which typically cause significant nausea and vomiting and has to be very cautious what she takes. She reported feeling nauseous and vomiting yesterday evening after receiving some pain medications. She was given Compazine injection by hospitalist ANESTHESIA ASSISTANT which 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 She does take prn alprazolam for anxiety which was added. Patient was also made aware she has po antiemetics ordered if she needs them. Patient otherwise has no acute concerns or complaints. She is tolerating therapy and is able to ambulate short distances with a rolling walker and contact-guard assist. Her plan is to return home alone. She does have good social support consisting of friends and family. Interval history: Patient was evaluated in her room while resting in bed. She is alert, pleasant,oriented and cooperative. States right knee pain is marginally better from yesterday. It appears slightly more edematous than yesterday. Patient encouraged to keep the leg elevated and use ice intermittently. Will also instruct nursing to apply Maru bandage tomorrow morning. She did have several bowel movements after receiving lactulose this morning. NoGI complaints at this time. She did request to be placed on a PPI as per home regimen. She does tolerating therapy very well. She is ambulatory 175 feet x 2 using a rolling walker, SBA/CGA. Was able to do 6 stairs with contact-guard assistance. SBA/CGA with transfers and bed mobility. Review of Systems Review of Systems All other systems reviewed & are negative unless noted below or in HPI Exam Physical Exam Vital Signs: Temp Pulse Resp BP Pulse Ox O2 Del Method 98.1 F 71 16 119/61 98 Room Air 09/04/23 04:40 09/04/23 09:25 09/04/23 04:40 09/04/23 09:25 09/04/23 09:25 09/04/23 11:17 Narrative: General: Awake, alert, oriented x3 HENT: Normal to inspection, normocephalic, atraumatic Eyes: PERRL, normal conjunctiva and sclera Neck: Normal ROM, normal visual inspection. Trachea midline. Cardio: Regular heart rate and rhythm Respiratory: Clear to auscultation bilaterally. Normal respiratory effort. No respiratory distress. GI: Abdomen soft, nontender, nondistended, active bowel sounds x4 quadrants Neuro: CN II-XII intact. Strength 5/5, equal bilaterally Extremities: Right knee wound VAC dressing intact. No drainage in the canister or tubing. Diffuse ecchymosis to the extremity. Surrounding tissue is soft andnontender to palpation. Psych: Mood and affect appropriate. Normal speech. Objective Labs 09/03/23 04:55 09/03/23 04:55 Medications and Allergies Allergies and Active Meds: Allergies oxycodone [Percocet] Allergy (Unknown, Verified 08/25/23 10:52) Vomiting sulfamethoxazole [Bactrim] Allergy (Unknown, Verified 08/25/23 10:52) Unknown Reaction trimethoprim [Bactrim] Allergy (Unknown, Verified 08/25/23 10:52) Unknown Reaction acetaminophen [From Vicodin] Allergy (Verified 09/02/23 15:58) Vomiting hydrocodone [From Vicodin] Allergy (Verified 09/02/23 15:58) Vomiting Rocuronium [place] Allergy (Unknown, Uncoded 08/20/23 14:19) breathing difficulty Active Medications Generic Name Dose Route Start Last Admin Trade Name Freq PRN Reason Stop Dose Admin Acetaminophen 1,000 mg 09/02/23 15:15 09/04/23 06:39 Acetaminophen 500 Mg Tablet PO 09/01/24 15:14 1,000 mg Q8H ERNIE Administration Al Hydrox/Mg Hydrox/Simethicone 30 ml 09/02/23 14:57 09/03/23 00:58 Mag Hydrox/Al Hydrox/Simeth 30 Ml Udc PO 09/01/24 14:56 30 ml Q4H PRN Administration Indigestion Alprazolam 0.25 mg 09/03/23 10:30 Alprazolam 0.25 Mg Tablet PO 03/01/24 10:29 Q6H PRN Anxiety Aspirin 81 mg 09/02/23 21:00 09/03/23 09:08 Aspirin 81 Mg Tablet. PO 09/01/24 20:59 81 mg BID ERNIE Administration Atorvastatin Calcium 10 mg 09/02/23 22:00 09/02/23 22:50 Atorvastatin 10 Mg Tablet PO 09/01/24 21:59 10 mg QHS ERNIE Administration Bisacodyl 10 mg 09/02/23 14:57 Bisacodyl 10 Mg Supp.Rect DE 09/01/24 14:56 DAILY PRN Constipation Cefadroxil 500 mg 09/02/23 21:00 09/04/23 09:26 Cefadroxil 500 Mg Capsule PO 500 mg BID ERNIE Administration Diclofenac Sodium 2 gm 09/02/23 18:00 09/04/23 09:28 Diclofenac Sodium 1% Gel 100 Gm Tube TOPICAL 09/01/24 17:59 2 gm QID ERNIE Administration Docusate Sodium 283 mg 09/02/23 14:57 Docusate Enema 283 Mg/5 Ml Enema DE 09/01/24 14:56 DAILY PRN Constipation Docusate Sodium 100 mg 09/04/23 09:00 09/04/23 09:27 Docusate 100 Mg Capsule PO 09/03/24 08:59 100 mg BID ERNIE Administration Enoxaparin Sodium 40 mg 09/03/23 10:35 09/04/23 09:28 Enoxaparin 40 Mg/0.4 Ml Syringe SUBCUT 09/02/24 10:34 40 mg DAILY@1000 ERNIE Administration Home Med 1 each 09/02/23 23:30 Home Meds Kept In Pharmacy [facility] [place] 09/01/24 23:29 PRN PRN zz.Pharmacy Note Lactulose 30 gm 09/02/23 14:57 Lactulose 20 Gm/30 Ml Udc PO 09/01/24 14:56 DAILY PRN Constipation Losartan Potassium 25 mg 09/03/23 09:00 09/04/23 09:27 Losartan 25 Mg Tablet PO 09/02/24 08:59 25 mg QAM ERNIE Administration Metoprolol Succinate 25 mg 09/02/23 21:00 09/03/23 21:37 Metoprolol Succinate 25 Mg Tab.Er.24h PO 09/01/24 20:59 25 mg QPM ERINE Administration Multivitamins 1 tab 09/03/23 09:00 09/04/23 09:27 Multivitamin 1 Tab Tablet PO 09/02/24 08:59 1 tab DAILY ERNIE Administration Ondansetron HCl 4 mg 09/03/23 00:58 09/03/23 06:18 Ondansetron Odt 4 Mg Tab.Rapdis PO 09/01/24 15:23 4 mg Q6H PRN Administration Nausea Oxycodone HCl 5 mg 09/02/23 15:13 Oxycodone Ir 5 Mg Tablet PO Q4H PRN Pain Scale 6 - 10 Pantoprazole Sodium 40 mg 09/04/23 09:00 09/04/23 09:27 Pantoprazole 40 Mg Tablet. PO 09/03/24 08:59 40 mg DAILY ERNIE Administration Polyethylene Glycol 17 gm 09/03/23 09:00 09/04/23 09:29 Polyethylene Glycol 3350 17 Gm Powd.Pack PO 09/02/24 08:59 17 gm DAILY ERNIE Administration Prednisone 10 mg 09/03/23 09:00 09/04/23 09:27 Prednisone 10 Mg Tablet PO 09/02/24 08:59 10 mg DAILY ERNIE Administration Senna/Docusate Sodium 2 tab 09/03/23 09:00 09/04/23 09:27 Sennosides/Docusate 8.6-50mg 1 Tab Tablet PO 09/02/24 08:59 2 tab DAILY ERNIE Administration Sennosides 2 tab 09/03/23 12:00 Sennosides 8.6 Mg Tablet PO 09/02/24 11:59 DAILY@12 PRN If no BM in 2 days Sodium Chloride 0 ml 09/02/23 14:57 Sodium Chloride 0.9 % 10 Ml Syringe IV-PUSH 09/01/24 14:56 PRN PRN Flush Vitamin D 50 mcg 09/03/23 09:00 09/04/23 09:27 Cholecalciferol 25 Mcg (1,000 Units) Tablet PO 09/02/24 08:59 50 mcg DAILY ERNIE Administration Vitamin E 180 mg 09/03/23 09:00 09/04/23 09:27 Vitamin E (Dl Tocopheryl Acet) 180 Mg (400 Units) Capsule PO 09/02/24 08:59 180 mg DAILY ERNIE Administration Zolpidem Tartrate 10 mg 09/02/23 22:00 09/03/23 21:37 Zolpidem 10 Mg Tablet PO 02/29/24 21:59 10 mg QHS ERNIE Administration Assessment/Plan Assessment/Plan (1) Status post total right knee replacement: (2) Primary osteoarthritis of both knees: (3) Hyperlipidemia type II: (4) Primary hypertension: (5) CAD (coronary artery disease): (6) Impaired mobility and activities of daily living: (7) Anxiety: (8) Post-operative pain: Plan 82-year-old female presenting to acute inpatient rehab with functional impairments secondary to an elective right total knee arthroplasty which was performed on 08/[address] Pichardo. Uncomplicated procedure and postoperative course. * Doing well on assessment today. Pain is reasonably controlled. Operative extremity somewhat edematous, will implement Maru wrap's tomorrow morning. If continued edema or increased pain, consider ultrasound to rule out a DVT. * Lactulose was effective, had several BMs this morning. * Add Protonix 40 mg daily per patient request. Patient education Pressure ulcer prophylaxis; encourage mobilization, frequent postural changes, pressure-relief techniques DVT prophylaxis Lovenox while inpatient, aspirin 81 mg twice daily at discharge Encourage deep breathing exercise incentive spirometry. Monitor bladder. Toileting schedule. Continue current bladder management, with scans as needed and CIC if needed. Start bowel care program every day to obtain continence, prevent ileus. Maintain fall precautions Gait and balance retraining Functional training and self-care and home management, including activities of daily living and instrumental activities of daily living Provision of the necessary gait aids and functional adaptive equipment to enhance the patient's a functional episcopal Ensure adequate nutrition and hydration Sleep: No issues Pain: Continue current regimen for now Discharge planning: Home alone in about a week. I spent 14 minutes for services, including qxvh-ns-ortn encounter with the patient, discussion of the case, plan of care, and exam; and blkqtej-em-sgkz activities, such as reviewing pertinent life skills consultant documentation, recent therapynotes, laboratory and radiology studies, and discussion of case with care team including physician, nursing, bilingual patient support caseworker, and therapists. More than 50 % of time was spent on patient/family counseling or coordination ofcare. <Statement entered by Elijah Mayers MD - 09/04/23 14:41> I reviewed the history and the relevant portions of the chart, including currentorders, allied health and life skills consultant notes, labs/imaging and plan of care as above. Documented By: Heidi Mesa APRN 09/04/23 1 429 Signed By: <Electronically signed by CHASITY Mesa> 09/04/23 1435 <Electronically signed by Elijah Mayers MD> 09/04/23 1442 [facility] Work Phone: [phone]) [phone] Consult note Author Saud Zuniga [facility] September 04, 2023 6:55am Note Date/Time September 03, 2023 2:36 pm [facility] [address] [place], [place] [id number] Hospitalist Consult Note Signed Patient: Ashley Brown MR#: [id number] : 1940 Acct:[id number] Age/Sex: 82 / F Adm Date: 4 Loc: Room: 0Q2836-8 Type: ADM IN Attending Dr: Elijah Mayers MD Copies to: DO Elijah Wheat MD Linda Obika, APRN Mazhar Rahman, MD~ HPI DATE OF CONSULTATION: 09/03/23 REQUESTING PROVIDER: Elijah Mayers Consult Narrative Reason for Consult: Hypertension HPI: Ms. Brown is a 82 year old female with PMH of of paroxysmal A-fib, GERD, arthritis, hypertension, hyperlipidemia, CAD, CABG who presented to the hospital on 09/01/2023 for an elective right knee replacement on 09/01/[address] Pichardo after failing conservative treatment. She did not have any postoperative complications and she will be on aspirin 81 mg twice daily x 35 days for DVT prophylaxis per orthopedics. She was seen and evaluated by physical therapy and recommended acute inpatient rehabilitation. The hospitalist team has been consulted for medical management of hypertension. Patient seen and examined, resting comfortably in bed. She reports minimal painat rest and participated well with physical therapy. She denies chest pain or palpitation. No cough, dyspnea, or pain with inspiration. No abdominal pain or indigestion, constipation or diarrhea, nausea or vomiting. No dysuria or retention. No headache or dizziness. No fevers Review of Systems Review of Systems Review of systems: 10 point review of systems obtained, negative unless noted in the HPI below [facility] Source: Old Records Reviewed Medical History Paroxysmal atrial fibrillation Primary insomnia Other osteoporosis without current pathological fracture Obesity (BMI 30-39.9) Myalgia due to statin Gastroesophageal reflux disease with esophagitis without hemorrhage Acute recurrent maxillary sinusitis Right knee pain Arthritis History of stent insertion of renal artery GERD (gastroesophageal reflux disease) Cholecystectomy planned Primary osteoarthritis of both knees Tonsillectomy planned Vaginitis and vulvovaginitis Primary hypertension Paroxysmal atrial fibrillation patient denies any hx of afib Menopause Hypertension, essential Hyperlipidemia type II Generalized anxiety disorder Essential hypertension Carotid stenosis, left Atopic dermatitis, unspecified ASHD (arteriosclerotic heart disease) Arteriosclerotic heart disease Surgical History Status post total right knee replacement H/O esophagogastroduodenoscopy History of bunionectomy of left great toe History of breast biopsy History of D&C History of ear, nose, and throat (ENT) surgery 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, left History of phacoemulsification of cataract of both eyes with intraocular lens implantation History of section History of heart bypass surgery 2020 in [place] History of cardiac catheterization prior to open heart surgery Tubal ligation status History of total left knee replacement Family History Family/Other Legacy FamHx Relation: Migrated Family History; Legacy FamHx Problem: Problem Title : Mother (biol.) Family History of Mother , Problem Description : Mother (biol.) Family History of Mother , Problem Status : Active Father CHF (congestive heart failure) Mother Lung cancer Brother Liver cancer Bladder cancer Social History Smoking Status: Never smoker Substance Use Type: None Meds Medications and Allergies Allergies oxycodone [Percocet] Allergy (Unknown, Verified 08/25/23 10:52) Vomiting sulfamethoxazole [Bactrim] Allergy (Unknown, Verified 08/25/23 10:52) Unknown Reaction trimethoprim [Bactrim] Allergy (Unknown, Verified 08/25/23 10:52) Unknown Reaction acetaminophen [From Vicodin] Allergy (Verified 09/02/23 15:58) Vomiting hydrocodone [From Vicodin] Allergy (Verified 09/02/23 15:58) Vomiting Rocuronium [place] Allergy (Unknown, Uncoded 08/20/23 14:19) breathing difficulty Home Medications aspirin 81 mg tablet,delayed release 81 mg PO BID 35 days #70 tabs 08/20/23 [Rx Confirmed 09/02/23] aspirin 81 mg tablet,delayed release (Adult Aspirin Regimen) 81 mg PO DAILY 08/20/23 [History Confirmed 09/02/23] atorvastatin 20 mg tablet 10 mg PO QHS 08/20/23 [History Confirmed 09/02/23] cefadroxil 500 mg capsule 500 mg PO Q12H 7 days #14 tabs 08/20/23 [Rx Confirmed 09/02/23] cholecalciferol (vitamin D3) 50 mcg (2,000 unit) capsule 50 mcg PO DAILY 08/20/23 [History Confirmed 09/02/23] losartan 25 mg tablet 25 mg PO QAM 08/20/23 [History Confirmed 09/02/23] metoprolol succinate 25 mg tablet,extended release 24 hr 25 mg PO QPM 08/20/23 [History Confirmed 09/02/23] jwdgsaar-zyv-krsws ac 400 mcg-calcium carb 500 mg-vit K1 20 mcg tablet (Women's 50 Plus Multivitamin) 1 tab PO DAILY 08/20/23 [History Confirmed 09/02/23] ondansetron HCl 4 mg tablet 4 mg PO Q8H PRN Nausea #9 tabs 08/20/23 [Rx Confirmed 09/02/23] oxycodone 5 mg tablet 5 mg PO Q4H PRN Pain 7 days #42 tabs 08/20/23 [Rx Confirmed 09/02/23] polyethylene glycol 3350 17 gram/dose oral powder (Miralax) 17 g PO daily 7 days#7 packets 08/20/23 [Rx Confirmed 09/02/23] prednisone 10 mg tablet 10 mg PO daily 10 days #10 tabs 08/20/23 [Rx Confirmed 09/02/23] sennosides 8.6 mg-docusate sodium 50 mg tablet (Senokot-S) 2 tab PO daily 30 days #60 tabs 08/20/23 [Rx Confirmed 09/02/23] tramadol 50 mg tablet 50 mg PO Q6H PRN Pain 10 days #40 tabs 08/20/23 [Rx Confirmed 09/02/23] vitamin E 268 mg (400 unit) capsule 268 mg PO DAILY 08/20/23 [History Confirmed 09/02/23] zolpidem 10 mg tablet 10 mg PO QHS 08/20/23 [History Confirmed 09/02/23] alprazolam 0.25 mg tablet 0.25 mg PO BID 08/25/23 [History Confirmed 09/02/23] diclofenac sodium 1 % topical gel 2 g topical QID 08/25/23 [History Confirmed 09/02/23] acetaminophen 500 mg tablet 1,000 mg (2 x 500 mg) PO Q8H #0 tabs 09/02/23 [Rx Confirmed 09/02/23] aspirin 81 mg tablet,delayed release 81 mg PO BID #0 tabs 09/02/23 [Rx Confirmed 09/02/23] cefadroxil 500 mg capsule 500 mg PO BID #0 caps 09/02/23 [Rx Confirmed 09/02/23] oxycodone 5 mg tablet 5 mg PO Q4H PRN Pain Scale 6 - 10 #0 tabs 09/02/23 [Rx Confirmed 09/02/23] prednisone 10 mg tablet 10 mg PO DAILY #0 tabs 09/02/23 [Rx Confirmed 09/02/23] sennosides 8.6 mg-docusate sodium 50 mg tablet 2 tab PO DAILY #0 tabs 09/02/23 [Rx Confirmed 09/02/23] tramadol 50 mg tablet 50 mg PO Q6H PRN Pain Scale 1 - 5 #0 tabs 09/02/23 [Rx Confirmed 09/02/23] Active Medications: Active Medications Generic Name Dose Route Start Last Admin Trade Name Freq PRN Reason Stop Dose Admin Acetaminophen 500 mg 09/02/23 14:57 09/02/23 22:50 Acetaminophen 500 Mg Tablet PO 09/01/24 14:56 500 mg Q4H PRN Administration Pain Acetaminophen 1,000 mg 09/02/23 15:15 09/03/23 06:18 Acetaminophen 500 Mg Tablet PO 09/01/24 15:14 1,000 mg Q8H ERNIE Administration Al Hydrox/Mg Hydrox/Simethicone 30 ml 09/02/23 14:57 09/03/23 00:58 Mag Hydrox/Al Hydrox/Simeth 30 Ml Udc PO 09/01/24 14:56 30 ml Q4H PRN Administration Indigestion Alprazolam 0.25 mg 09/03/23 10:30 Alprazolam 0.25 Mg Tablet PO 03/01/24 10:29 Q6H PRN Anxiety Aspirin 81 mg 09/02/23 21:00 09/03/23 09:08 Aspirin 81 Mg Tablet. PO 09/01/24 20:59 81 mg BID ERNIE Administration Atorvastatin Calcium 10 mg 09/02/23 22:00 09/02/23 22:50 Atorvastatin 10 Mg Tablet PO 09/01/24 21:59 10 mg QHS ERNIE Administration Bisacodyl 10 mg 09/02/23 14:57 Bisacodyl 10 Mg Supp.Rect DE 09/01/24 14:56 DAILY PRN Constipation Cefadroxil 500 mg 09/02/23 21:00 09/03/23 09:08 Cefadroxil 500 Mg Capsule PO 500 mg BID ERNIE Administration Diclofenac Sodium 2 gm 09/02/23 18:00 09/03/23 09:09 Diclofenac Sodium 1% Gel 100 Gm Tube TOPICAL 09/01/24 17:59 2 gm QID ERNIE Administration Docusate Sodium 100 mg 09/02/23 14:57 Docusate 100 Mg Capsule PO 09/01/24 14:56 BID PRN Constipation Docusate Sodium 283 mg 09/02/23 14:57 Docusate Enema 283 Mg/5 Ml Enema DE 09/01/24 14:56 DAILY PRN Constipation Enoxaparin Sodium 40 mg 09/03/23 10:35 09/03/23 11:22 Enoxaparin 40 Mg/0.4 Ml Syringe SUBCUT 09/02/24 10:34 40 mg DAILY@1000 ERNIE Administration Home Med 1 each 09/02/23 23:30 Home Meds Kept In Pharmacy [facility] [place] 09/01/24 23:29 PRN PRN zz.Pharmacy Note Lactulose 30 gm 09/02/23 14:57 Lactulose 20 Gm/30 Ml Udc PO 09/01/24 14:56 DAILY PRN Constipation Losartan Potassium 25 mg 09/03/23 09:00 09/03/23 09:08 Losartan 25 Mg Tablet PO 09/02/24 08:59 25 mg QAM ERNIE Administration Metoprolol Succinate 25 mg 09/02/23 21:00 09/02/23 22:50 Metoprolol Succinate 25 Mg Tab.Er.24h PO 09/01/24 20:59 25 mg QPM ERNIE Administration Multivitamins 1 tab 09/03/23 09:00 09/03/23 09:08 Multivitamin 1 Tab Tablet PO 09/02/24 08:59 1 tab DAILY ERNIE Administration Ondansetron HCl 4 mg 09/03/23 00:58 09/03/23 06:18 Ondansetron Odt 4 Mg Tab.Rapdis PO 09/01/24 15:23 4 mg Q6H PRN Administration Nausea Oxycodone HCl 5 mg 09/02/23 15:13 Oxycodone Ir 5 Mg Tablet PO Q4H PRN Pain Scale 6 - 10 Polyethylene Glycol 17 gm 09/03/23 09:00 09/03/23 09:11 Polyethylene Glycol 3350 17 Gm Powd.Pack PO 09/02/24 08:59 Not Given DAILY ERNEI Prednisone 10 mg 09/03/23 09:00 09/03/23 09:08 Prednisone 10 Mg Tablet PO 09/02/24 08:59 10 mg DAILY ERNIE Administration Senna/Docusate Sodium 2 tab 09/03/23 09:00 09/03/23 09:10 Sennosides/Docusate 8.6-50mg 1 Tab Tablet PO 09/02/24 08:59 2 tab DAILY ERNIE Administration Sennosides 2 tab 09/03/23 12:00 Sennosides 8.6 Mg Tablet PO 09/02/24 11:59 DAILY@12 PRN If no BM in 2 days Sodium Chloride 0 ml 09/02/23 14:57 Sodium Chloride 0.9 % 10 Ml Syringe IV-PUSH 09/01/24 14:56 PRN PRN Flush Vitamin D 50 mcg 09/03/23 09:00 09/03/23 09:08 Cholecalciferol 25 Mcg (1,000 Units) Tablet PO 09/02/24 08:59 50 mcg DAILY ERNIE Administration Vitamin E 180 mg 09/03/23 09:00 09/03/23 09:08 Vitamin E (Dl Tocopheryl Acet) 180 Mg (400 Units) Capsule PO 09/02/24 08:59 180 mg DAILY ERNIE Administration Zolpidem Tartrate 10 mg 09/02/23 22:00 09/02/23 22:50 Zolpidem 10 Mg Tablet PO 02/29/24 21:59 10 mg QHS ERNIE Administration Exam Physical Exam Vital Signs: Temp Pulse Resp BP Pulse Ox O2 Del Method 98.0 F 67 17 151/71 H 97 Room Air 09/03/23 05:01 09/03/23 05:01 09/03/23 05:01 09/03/23 05:01 09/03/23 05:01 09/03/23 05:01 Narrative: CONST-alert, awake resting comfortably in bed HEAD - Normocephalic and atraumatic EENT-Sclera nonicteric and conjunctive are nonerythemic, moist oral mucosa, pharynx clear NECK-Supple, no cervical lymphadenopathy CARDIAC-normal rate, regular rhythm, normal S1 & S2. PULM-diminished without wheeze or rhonchi, RA, no accessory muscle use or cough noted ABD - Soft. Bowel sounds are normal. No distention No tenderness EXTREM-no edema BLE calves nontender. Right knee tenderness SKIN-negative pressure dressing intact incision site MS- MAEX4 spontaneously with equal with equal strength NEURO- A&Ox3 speech clear and tongue midline, equal facial symmetry no focal motor deficits PSYCH-Mood, affect and behavior appropriate Results - Hospitalist Consult Lab Results Labs: Laboratory Results - last 72 hr 09/03/23 04:55: Corrected WBC 7.8, Uncorrected WBC Count 7.8, RBC 3.50 L, Hgb 11.4 L, Hct 34.1, MCV 97.5, MCH 32.4, MCHC 33.3, RDW 13.3, Plt Count 296, MPV 8.2, Neut % (Auto) 76.7, Lymph % (Auto) 10.7, [place] % (Auto) 11.5, Eos % (Auto) 0.8, Baso % (Auto) 0.3, Nucleat RBC Rel Count 0.0, Neut # (Auto) 6.0, Lymph # (Auto) 0.8 L, [place] # (Auto) 0.9 H, Eos # (Auto) 0.1, Baso # (Auto) 0.0, PHA Creatinine Clear 47.47, Sodium 137, Potassium 4.5, Chloride 101, Carbon Dioxide 28.6, Anion Gap 11.9, BUN 11, Creatinine 0.78, Est GFR (CKD-EPI) > 60.0, Sougvbv251 H, Calcium 8.8, Total Bilirubin 0.4, AST 273 H, ALT 258 H, Alkaline Phosphatase 178 H, Total Protein 5.5 L, Albumin 3.3 L, Globulin 2.2, Albumin/Globulin Ratio 1.5, Prealbumin 15.7 L Assessment & Plan Assessment/Plan (1) Status post total right knee replacement: (2) Primary osteoarthritis of both knees: (3) Primary hypertension: (4) Impaired mobility and activities of daily living: Plan Status post total right knee replacement?09/01/2023 Postoperative anemia Impaired mobility and activities of daily living * Plan of care for rehabilitation, PT/OT, DVT prophylaxis, bowel regimen per PM&R team. Any issues pertaining to incision site to be deferred to the orthopedic team * Aspirin 81 mg twice daily x 35 days postop and 7 days of Duricef per orthopedic team * Hemoglobin Elevated liver enzymes-Denies abdominal pain * AST 273, ALT 258, will monitor and hold statin Chronic conditions: 1. Hypertension?on metoprolol, losartan, blood pressure reviewed, previously uncontrolled, however improved 2. Hyperlipidemia?on atorvastatin, will hold due to elevated liver enzymes Documented By: Carol Holland APRN 09/03/23 1432 Signed By: <Electronically signed by CHASITY Holland> 09/03/23 1733 <Electronically signed by Saud Zuniga MD> 09/04/23 0655 [facility] Work Phone: 1(729) [phone] History and physical note Author Elijah Mayers [facility] September 03, 2023 2:37pm Note Date/Time September 03, 2023 11:0 2am [facility] [address] [place] [address] Physiatry (Rehab) H&P Signed Patient: Ashley Brown MR#: [id number] : 1940 Acct:[id number] Age/Sex: 82 / F Adm Date: 4 Loc: Room: [address] [place] [address] Type: ADM IN Attending Dr: Elijah Mayers MD Copies to: DO Elijah Wheat MD Elena Turovskaya, CHASITY~ Date of Service: 09/03/2023 HPI The patient was seen and examined on: 09/03/23 History of Present Illness: Ms. Brown is a 82 year old female with PMH of of paroxysmal A-fib, GERD, arthritis, hypertension, hyperlipidemia, CAD, CABG, presenting to acute patient rehab with functional impairments in the setting of total right knee arthroplasty. She presented to the hospital on 09/01/2023 for an elective right knee replacementafter failing conservative treatment. The above robotic assisted procedure was performed by Dr. Pichardo without major complication. Patient can weight-bear as tolerated to the operative extremity. Aspirin 81 mg twice daily x 35 days for DVT prophylaxis. Her hospital course was uncomplicated. She was seen by PT/OT and recommended acute rehab to address functional impairments. On admission patient is alert, pleasant, oriented x 3. Reports anticipated right knee discomfort, worse with weightbearing. She is quite sensitive to mostpain medications, which typically cause significant nausea and vomiting and has to be very cautious what she takes. She reported feeling nauseous and vomiting yesterday evening after receiving some pain medications. She was given Compazine injection by hospitalist ANESTHESIA ASSISTANT which 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 She does take prn alprazolam for anxiety which was added. Patient was also made aware she has po antiemetics ordered if she needs them. Patient otherwise has no acute concerns or complaints. She is tolerating therapy and is able to ambulate short distances with a rolling walker and contact-guard assist. Her plan is to return home alone. She does have good social support consisting of friends and family. [facility] Medical History Paroxysmal atrial fibrillation Primary insomnia Other osteoporosis without current pathological fracture Obesity (BMI 30-39.9) Myalgia due to statin Gastroesophageal reflux disease with esophagitis without hemorrhage Acute recurrent maxillary sinusitis Right knee pain Arthritis History of stent insertion of renal artery GERD (gastroesophageal reflux disease) Cholecystectomy planned Primary osteoarthritis of both knees Tonsillectomy planned Vaginitis and vulvovaginitis Primary hypertension Paroxysmal atrial fibrillation patient denies any hx of afib Menopause Hypertension, essential Hyperlipidemia type II Generalized anxiety disorder Essential hypertension Carotid stenosis, left Atopic dermatitis, unspecified ASHD (arteriosclerotic heart disease) Arteriosclerotic heart disease Surgical History Status post total right knee replacement H/O esophagogastroduodenoscopy History of bunionectomy of left great toe History of breast biopsy History of D&C History of ear, nose, and throat (ENT) surgery 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, left History of phacoemulsification of cataract of both eyes with intraocular lens implantation History of section History of heart bypass surgery 2020 in [place] History of cardiac catheterization prior to open heart surgery Tubal ligation status History of total left knee replacement Family History Family/Other Legacy FamHx Relation: Migrated Family History; Legacy FamHx Problem: Problem Title : Mother (biol.) Family History of Mother , Problem Description : Mother (biol.) Family History of Mother , Problem Status : Active Father CHF (congestive heart failure) Mother Lung cancer Brother Liver cancer Bladder cancer Social History Smoking Status: Never smoker Substance Use Type: None Review of Systems Review of Systems All other systems reviewed & are negative unless noted below or in HPI Meds Medications and Allergies Allergies oxycodone [Percocet] Allergy (Unknown, Verified 08/25/23 10:52) Vomiting sulfamethoxazole [Bactrim] Allergy (Unknown, Verified 08/25/23 10:52) Unknown Reaction trimethoprim [Bactrim] Allergy (Unknown, Verified 08/25/23 10:52) Unknown Reaction acetaminophen [From Vicodin] Allergy (Verified 09/02/23 15:58) Vomiting hydrocodone [From Vicodin] Allergy (Verified 09/02/23 15:58) Vomiting Rocuronium [place] Allergy (Unknown, Uncoded 08/20/23 14:19) breathing difficulty Home and Active Meds: Home Medications aspirin 81 mg tablet,delayed release 81 mg PO BID 35 days #70 tabs 08/20/23 [Rx Confirmed 09/02/23] aspirin 81 mg tablet,delayed release (Adult Aspirin Regimen) 81 mg PO DAILY 08/20/23 [History Confirmed 09/02/23] atorvastatin 20 mg tablet 10 mg PO QHS 08/20/23 [History Confirmed 09/02/23] cefadroxil 500 mg capsule 500 mg PO Q12H 7 days #14 tabs 08/20/23 [Rx Confirmed 09/02/23] cholecalciferol (vitamin D3) 50 mcg (2,000 unit) capsule 50 mcg PO DAILY 08/20/23 [History Confirmed 09/02/23] losartan 25 mg tablet 25 mg PO QAM 08/20/23 [History Confirmed 09/02/23] metoprolol succinate 25 mg tablet,extended release 24 hr 25 mg PO QPM 08/20/23 [History Confirmed 09/02/23] esspjata-yni-cdikp ac 400 mcg-calcium carb 500 mg-vit K1 20 mcg tablet (Women's 50 Plus Multivitamin) 1 tab PO DAILY 08/20/23 [History Confirmed 09/02/23] ondansetron HCl 4 mg tablet 4 mg PO Q8H PRN Nausea #9 tabs 08/20/23 [Rx Confirmed 09/02/23] oxycodone 5 mg tablet 5 mg PO Q4H PRN Pain 7 days #42 tabs 08/20/23 [Rx Confirmed 09/02/23] polyethylene glycol 3350 17 gram/dose oral powder (Miralax) 17 g PO daily 7 days#7 packets 08/20/23 [Rx Confirmed 09/02/23] prednisone 10 mg tablet 10 mg PO daily 10 days #10 tabs 08/20/23 [Rx Confirmed 09/02/23] sennosides 8.6 mg-docusate sodium 50 mg tablet (Senokot-S) 2 tab PO daily 30 days #60 tabs 08/20/23 [Rx Confirmed 09/02/23] tramadol 50 mg tablet 50 mg PO Q6H PRN Pain 10 days #40 tabs 08/20/23 [Rx Confirmed 09/02/23] vitamin E 268 mg (400 unit) capsule 268 mg PO DAILY 08/20/23 [History Confirmed 09/02/23] zolpidem 10 mg tablet 10 mg PO QHS 08/20/23 [History Confirmed 09/02/23] alprazolam 0.25 mg tablet 0.25 mg PO BID 08/25/23 [History Confirmed 09/02/23] diclofenac sodium 1 % topical gel 2 g topical QID 08/25/23 [History Confirmed 09/02/23] acetaminophen 500 mg tablet 1,000 mg (2 x 500 mg) PO Q8H #0 tabs 09/02/23 [Rx Confirmed 09/02/23] aspirin 81 mg tablet,delayed release 81 mg PO BID #0 tabs 09/02/23 [Rx Confirmed 09/02/23] cefadroxil 500 mg capsule 500 mg PO BID #0 caps 09/02/23 [Rx Confirmed 09/02/23] oxycodone 5 mg tablet 5 mg PO Q4H PRN Pain Scale 6 - 10 #0 tabs 09/02/23 [Rx Confirmed 09/02/23] prednisone 10 mg tablet 10 mg PO DAILY #0 tabs 09/02/23 [Rx Confirmed 09/02/23] sennosides 8.6 mg-docusate sodium 50 mg tablet 2 tab PO DAILY #0 tabs 09/02/23 [Rx Confirmed 09/02/23] tramadol 50 mg tablet 50 mg PO Q6H PRN Pain Scale 1 - 5 #0 tabs 09/02/23 [Rx Confirmed 09/02/23] Active Medications Acetaminophen (Acetaminophen 500 Mg Tablet) 500 mg PO Q4H PRN PRN Reason: Pain Stop: 09/01/24 14:56 Last Admin: 09/02/23 22:50 Dose: 500 mg Acetaminophen (Acetaminophen 500 Mg Tablet) 1,000 mg PO Q8H [facility] Stop: 09/01/24 15:14 Last Admin: 09/03/23 06:18 Dose: 1,000 mg Al Hydrox/Mg Hydrox/Simethicone (Mag Hydrox/Al Hydrox/Simeth 30 Ml Udc) 30 ml PO Q4H PRN PRN Reason: Indigestion Stop: 09/01/24 14:56 Last Admin: 09/03/23 00:58 Dose: 30 ml Alprazolam (Alprazolam 0.25 Mg Tablet) 0.25 mg PO Q6H PRN PRN Reason: Anxiety Stop: 03/01/24 10:29 Aspirin (Aspirin 81 Mg Tablet.Dr) 81 mg PO BID [facility] Stop: 09/01/24 20:59 Last Admin: 09/03/23 09:08 Dose: 81 mg Atorvastatin Calcium (Atorvastatin 10 Mg Tablet) 10 mg PO QHS [facility] Stop: 09/01/24 21:59 Last Admin: 09/02/23 22:50 Dose: 10 mg Bisacodyl (Bisacodyl 10 Mg Supp.Rect) 10 mg DE DAILY PRN PRN Reason: Constipation Stop: 09/01/24 14:56 Cefadroxil (Cefadroxil 500 Mg Capsule) 500 mg PO BID [facility] Last Admin: 09/03/23 09:08 Dose: 500 mg Diclofenac Sodium (Diclofenac Sodium 1% Gel 100 Gm Tube) 2 gm TOPICAL QID [facility] Stop: 09/01/24 17:59 Last Admin: 09/03/23 09:09 Dose: 2 gm Docusate Sodium (Docusate 100 Mg Capsule) 100 mg PO BID PRN PRN Reason: Constipation Stop: 09/01/24 14:56 Docusate Sodium (Docusate Enema 283 Mg/5 Ml Enema) 283 mg DE DAILY PRN PRN Reason: Constipation Stop: 09/01/24 14:56 Enoxaparin Sodium (Enoxaparin 40 Mg/0.4 Ml Syringe) 40 mg SUBCUT DAILY@1000 [facility] Stop: 09/02/24 10:34 Home Med (Home Meds Kept In Pharmacy) 1 each MISCELLANE PRN PRN PRN Reason: zz.Pharmacy Note Stop: 09/01/24 23:29 Lactulose (Lactulose 20 Gm/30 Ml Udc) 30 gm PO DAILY PRN PRN Reason: Constipation Stop: 09/01/24 14:56 Losartan Potassium (Losartan 25 Mg Tablet) 25 mg PO QAM [facility] Stop: 09/02/24 08:59 Last Admin: 09/03/23 09:08 Dose: 25 mg Metoprolol Succinate (Metoprolol Succinate 25 Mg Tab.Er.24h) 25 mg PO QPM ERNIE Stop: 09/01/24 20:59 Last Admin: 09/02/23 22:50 Dose: 25 mg Multivitamins (Multivitamin 1 Tab Tablet) 1 tab PO DAILY ERNIE Stop: 09/02/24 08:59 Last Admin: 09/03/23 09:08 Dose: 1 tab Ondansetron HCl (Ondansetron Odt 4 Mg Tab.Rapdis) 4 mg PO Q6H PRN PRN Reason: Nausea Stop: 09/01/24 15:23 Last Admin: 09/03/23 06:18 Dose: 4 mg Oxycodone HCl (Oxycodone Ir 5 Mg Tablet) 5 mg PO Q4H PRN PRN Reason: Pain Scale 6 - 10 Polyethylene Glycol (Polyethylene Glycol 3350 17 Gm Powd.Pack) 17 gm PO DAILY ERNIE Stop: 09/02/24 08:59 Last Admin: 09/03/23 09:11 Dose: Not Given Prednisone (Prednisone 10 Mg Tablet) 10 mg PO DAILY [facility] Stop: 09/02/24 08:59 Last Admin: 09/03/23 09:08 Dose: 10 mg Senna/Docusate Sodium (Sennosides/Docusate 8.6-50mg 1 Tab Tablet) 2 tab PO DAILY ERNIE Stop: 09/02/24 08:59 Last Admin: 09/03/23 09:10 Dose: 2 tab Sennosides (Sennosides 8.6 Mg Tablet) 2 tab PO DAILY@12 PRN PRN Reason: If no BM in 2 days Stop: 09/02/24 11:59 Sodium Chloride (Sodium Chloride 0.9 % 10 Ml Syringe) 0 ml IV-PUSH PRN PRN PRN Reason: Flush Stop: 09/01/24 14:56 Vitamin D (Cholecalciferol 25 Mcg (1,000 Units) Tablet) 50 mcg PO DAILY [facility] Stop: 09/02/24 08:59 Last Admin: 09/03/23 09:08 Dose: 50 mcg Vitamin E (Vitamin E (Dl Tocopheryl Acet) 180 Mg (400 Units) Capsule) 180 mg PODAILY [facility] Stop: 09/02/24 08:59 Last Admin: 09/03/23 09:08 Dose: 180 mg Zolpidem Tartrate (Zolpidem 10 Mg Tablet) 10 mg PO QHS [facility] Stop: 02/29/24 21:59 Last Admin: 09/02/23 22:50 Dose: 10 mg Exam Physical Exam Vital Signs: Temp Pulse Resp BP Pulse Ox O2 Del Method 98.0 F 67 17 151/71 H 97 Room Air 09/03/23 05:01 09/03/23 05:01 09/03/23 05:01 09/03/23 05:01 09/03/23 05:01 09/03/23 05:01 Narrative: General: Awake, alert, oriented x3 HENT: Normal to inspection, normocephalic, atraumatic Eyes: PERRL, normal conjunctiva and sclera Neck: Normal ROM, normal visual inspection. Trachea midline. Cardio: Regular heart rate and rhythm Respiratory: Clear to auscultation bilaterally. Normal respiratory effort. No respiratory distress. GI: Abdomen soft, nontender, nondistended, active bowel sounds x4 quadrants Neuro: CN II-XII intact. Strength 5/5, equal bilaterally Extremities: Right knee wound VAC dressing intact. No drainage in the canister or tubing. Diffuse ecchymosis to the extremity. Surrounding tissue is soft andnontender to palpation. Psych: Mood and affect appropriate. Normal speech. Results - Phys. Rehab Labs Labs: Laboratory Results - last 24 hr 09/03/23 04:55 Corrected WBC 7.8 Uncorrected WBC Count 7.8 RBC 3.50 L Hgb 11.4 L Hct 34.1 MCV 97.5 MCH 32.4 MCHC 33.3 RDW 13.3 Plt Count 296 MPV 8.2 Neut % (Auto) 76.7 Lymph % (Auto) 10.7 [place] % (Auto) 11.5 Eos % (Auto) 0.8 Baso % (Auto) 0.3 Nucleat RBC Rel Count 0.0 Neut # (Auto) 6.0 Lymph # (Auto) 0.8 L [place] # (Auto) 0.9 H Eos # (Auto) 0.1 Baso # (Auto) 0.0 PHA Creatinine Clear 47.47 Sodium 137 Potassium 4.5 Chloride 101 Carbon Dioxide 28.6 Anion Gap 11.9 BUN 11 Creatinine 0.78 Est GFR (CKD-EPI) > 60.0 Glucose 117 H Calcium 8.8 Total Bilirubin 0.4 AST 273 H ALT 258 H Alkaline Phosphatase 178 H Total Protein 5.5 L Albumin 3.3 L Globulin 2.2 Albumin/Globulin Ratio 1.5 Prealbumin 15.7 L Additional Results Results Comment: I reviewed clinical lab tests, radiology reports and obtained and summated medical records and have ordered follow up lab tests and imaging studies as needed for rehabilitation care. Functional Status Prior Level of Function Narrative: Previously independent, lives alone. Current Level of Function Narrative: Ambulatory short distances with using a wheeled walker, CGA. Min A/CGA with transfers and bed mobility. Individualized Plan of Care Individualized Plan of Care Plan of Care: Individualized Overall Plan of Care: Admit Date/Time: 09/02/23 Expected LOS: 7 Days Expected Discharge Destination: Home Rehabilitation C: 8.61 Primary Diagnosis: as above Patient?s/Family?s anticipated outcomes/personal goals: To have patient become more independent and to return home. Medical/ Functional Prognosis: Good Anticipated Functional Outcomes/Goals and Interventions: -Therapy Functional Outcome/Goal: Mobility/Locomotion: Patient likely to be independent with ambulation with assistive device. Anticipated interventions: Physician management, PT, OT, Dietitian, Rehab Nursing - Therapy Functional Outcome/Goal: Self Care: Patient likely to be functionally independent for activities of daily living using assistive / adaptive equipment as needed. Anticipated interventions: Physician management, PT, OT, Dietitian, Rehab Nursing - Therapy Functional Outcome/Goal: Bladder/Bowel Management: Patient likely to be independent with bladder care and independent with bowel care. Anticipated interventions: Physician management, PT, OT, Dietitian, Rehab Nursing -Therapy Functional Outcome/Goal: Communication/Cognition: Patient will be able to communicate fully and be safe cognitively. Anticipated interventions: Physician management, PT, OT, Dietitian, Rehab Nursing -Therapy Functional Outcome/Goal: Patient will be independent for bed mobility and transfers Anticipated interventions: Physician management, PT, OT, Dietitian, Rehab Nursing -Therapy Functional Outcome/Goal: Patient will improve endurance to be able to tolerate all daily self care activities and avocational activities. Anticipated interventions: Physician management, PT, OT, Nutrition, Rehab Nursing -Therapy Functional Outcome/Goal: Patient will understand and assimilate / integrate education regarding management of their medical conditions to maintainhealth and wellbeing. Anticipated interventions: Physician management, PT, OT, Dietitian, Rehab Nursing Required Therapy PT: 1.5 hour per day at least 5 days per week with additional therapy on as needed basis. Comments: PT to improve pt's strength, endurance, bed mobility, transfers (sit-stand), standing balance, gait quality on level surfaces and stairs, coordination and functional ADL skills. Will also work to improve pt's safety awareness during transfers and ambulation. OT: 1.5 hour per day at least 5 days per week with additional therapy on as needed basis. Comments: OT for basic ADL re-training (bathing, dressing, toileting, continence, grooming, feeding, transferring), to increase activity tolerance andfunctional mobility and to evaluate for adaptive and assistive devices. Will work to improve pt's endurance and educate pt on fall prevention and energy conservation techniques-pacing strategies and proper breathing techniques duringfunctional tasks. Other: Nutrition, Rehab nursing, Wound, P&O RATIONALE FOR IRF ADMISSION: Patient has both medical and functional complexities that require 24 hour daily monitoring and intervention from Finance Admin as well as other consulting physicians including internal medicine as well as 24 hour daily endless belt finisher nursing - for medical safe / optimal management. Patient requires interdisciplinary therapy team rehabilitation care including OT, PT, SW, Rehab Nursing, requires and can tolerate at least 3 hoursof daily OT and PT therapy at least 5 days weekly. The following medical conditions significantly impact the rehabilitation process and are being addressed daily and can not be managed at home or in a lesser intense medical setting: Refer to above problem oriented plan of care Assessment/Plan (1) Status post total right knee replacement: (2) Primary osteoarthritis of both knees: (3) Hyperlipidemia type II: (4) Primary hypertension: (5) CAD (coronary artery disease): (6) Impaired mobility and activities of daily living: (7) Anxiety: (8) Post-operative pain: Plan 82-year-old female presenting to acute inpatient rehab with functional impairments secondary to an elective right total knee arthroplasty which was performed on 08/[address] Pichardo. Uncomplicated procedure and postoperative course. * Patient has poor opioid tolerance. Sure what all she tried in the past but knows that Percocet and Vicodin causes her significant nausea and vomiting. She can have Zofran as needed to help with symptoms. Can also trial tramadol if symptoms are bothersome. * Add Xanax 0.25 mg as needed for anxiety as per home regimen * Will add Lovenox for DVT prophylaxis. Patient education Pressure ulcer prophylaxis; encourage mobilization, frequent postural changes, pressure-relief techniques DVT prophylaxis Lovenox while inpatient, aspirin 81 mg twice daily at discharge Encourage deep breathing exercise incentive spirometry. Monitor bladder. Toileting schedule. Continue current bladder management, with scans as needed and CIC if needed. Start bowel care program every day to obtain continence, prevent ileus. Maintain fall precautions Gait and balance retraining Functional training and self-care and home management, including activities of daily living and instrumental activities of daily living Provision of the necessary gait aids and functional adaptive equipment to enhance the patient's a functional episcopal Ensure adequate nutrition and hydration Sleep: No issues Pain: Continue current regimen for now Discharge planning: Home alone in about a week. I spent 44 minutes for services, including [id number] encounter with the patient, discussion of the case, plan of care, and exam; and [id number] activities, such as reviewing pertinent life skills consultant documentation, recent therapynotes, laboratory and radiology studies, and discussion of case with care team including physician, nursing, bilingual patient support caseworker, and therapists. More than 50 % of time was spent on patient/family counseling or coordination ofcare. Patient was personally seen by me, Dr. Mayers, on the day of encounter, within 24 hours of rehab admission, reviewed the history and the relevant portions of the chart, including current orders, allied health and life skills consultant notes, labs/imaging and performed timmons elements of exam and I formulated the planof care and facilitated the medical decision making. I completed a substantive portion of this encounter, the medical decision makingportion of this note in its entirety, including Allied health note review, nursing note review, life skills consultant note review, discussion with nursing and case management, and more than 50% of my time was spent on counseling and coordination of care, time spent 45 minutes Agree with above. Patient presents s/p right TKA. Reports continued pain but does not tolerate opioids well. Reports nausea/vomiting with percocet and vicodin. Notes that tramadol does not work well. Will continue with current painregimen but will add PRN Zofran. Reports anxiety as well and poor sleep. Xanax as a home med but patient is also on Zolpidem qhs and opioids. Given that this is a home medication, will resume for now but monitor closely for signs of respiratory depression. Will add Lovenox for DVT ppx and place ASA BID on hold but resume at discharge. Documented By: Heidi Mesa APRN 09/03/23 1 053 Signed By: <Electronically signed by CHASITY Mesa> 09/03/23 1129 <Electronically signed by Elijah Mayers MD> 09/03/23 14[address] [facility] Work Phone: 1(334) 798-322102-02-2024 Evaluation note* Encounter Date Diagnosis Assessment Notes Treatment Notes Treatment Clinical Notes Jul, ASHD (arteriosclerotic heart disease) (ICD-10 - I25.10) Mrs. Brown's cardiac status is stable. She denies activity limiting symptoms. She denies CP, palpitations, DENSON or lightheadedness. She denies orthopnea, PND or increased lower extremity edema. A preoperative BMP and BNP will be ordered: - GFR normal - BNP normal, will not require post op EKG or Troponin Jul, Preop exam for internal medicine (ICD-10 - Z01.818) Patient seen and examined for preoperative evaluation. I reviewed her medications and instructed her to continue all medication w/o interruption. She has a remote hx of renal artery stenting and I have recommended she continue ASA. Jul, Primary hypertension (ICD-10 - I10) Her BP is stable, she is to continue her medication w/o interruption. Jul, Hyperlipidemia type II (ICD-10 - E78.01) Her cholesterol is stable, she is to continue her statin w/o interruption. Jul, Primary osteoarthritis of right knee (ICD-10 - M17.11) Planning right TKA. Discussed increased risks for DVT, acute blood loss anemia and infection. [facility] Other 01-24-2024 Evaluation note* Encounter Date Diagnosis Assessment Notes Treatment Notes Treatment Clinical Notes Jun, Primary osteoarthritis of right knee (ICD-10 - M17.11) Jun, Other insights manager (current) drug therapy (ICD-10 - Z79.899) Jun, Other osteoporosis without current pathological fracture (ICD-10 - M81.8) [facility] Other 01-10-2024 Evaluation note* Encounter Date Diagnosis [...] would likely benefit from acute inpatient rehab. [facility] Other 12-08-2023 Evaluation note* Encounter Date Diagnosis [...] Cleanse w/ soap and water. Mupirocin bid [facility] Other 11-27-2023 Evaluation note* Encounter Date Diagnosis [...] AHA diet plan. Continue secondary prevention measures. [facility] Other 11-22-2023 Evaluation note* Encounter Date Diagnosis [...] and or her pain management office in [place] to get that left hip injected with [...] L TKA by [employer] in 2013 with [employer] components [facility] Other 11-21-2023 Evaluation note* Encounter Date Diagnosis [...] are maintaining regular scheduled appts with their online trader. Apr, Generalized anxiety disorder (ICD-10 - F41.1) [...] 50% narrowing Continue ASA and Statin therapy. [facility] Other 11-15-2023 [facility]iology - [facility] Subjective Ashley Brown is a 82 y.o. year old female patient being seen for Follow-up (6 months) Patient Active Problem List Diagnosis Coronary artery disease involving [place] coronary artery of [place] heart without angina pectoris Essential hypertension History [...] MOUTH EVERY DAY, D (more content not included)...[facility]05-09-2023 Note CONSULTATION CONSULTATION DATE: 11/05/2022 TO: Bell Marcelo D.O. and Odell Harrington D.O. CHIEF COMPLAINT: Includes right knee. HISTORY [...] our patients to inform us about any [id number] medications or herbal remedies/nutritional supplements/alternative remedies. 2. [...] treatment options with their primary care provider.[id number] Evaluation note * Encounter Date Diagnosis Assessment [...] are maintaining regular scheduled appts with their online trader. No bleeding complications Sep, Generalized anxiety disorder (ICD-10 - F41.1) Healthy diet, exercise and keep active Sep, Hyperlipidemia type II (ICD-10 - E78.01) Diet and exercise with continued statin therapy. Sep, Primary osteoarthritis of both knees (ICD-10 - M17.0) Quad exercises, ice/heat and Tylenol Orthopedics referring to Pain Management Discussed opiates: Tramadol doesn't help, declines [place] Sep, Bilateral carotid bruits (ICD-10 - R09.89) Carotid US: 50-60% B/L 2018 Carotid US: < 50% 08/2021 < 50% stenosis Continue primary prevention measures Sep, Precordial pain (ICD-10 - R07.2) Sep, High risk medication use (ICD-10 - Z79.899) [facility] Other 04-11-2023 Evaluation note* Encounter Date Diagnosis Assessment Notes Treatment Notes Treatment Clinical Notes Sep, Acute bronchitis due to other specified organisms (ICD-10 - J20.8) Instructed to use Robitussin or Mucinex for cough, saline or Flonase NS for congestion, Tylenol for pain and fever. Sep, ASHD (arteriosclerotic heart disease) (ICD-10 - I25.10) Avoid use of decongestants w/ OTC medications [facility] Other 01-25-2023 Evaluation note* Encounter Date Diagnosis [...] use of Tylenol, Glucosamine and IA injections. [facility] Other Evaluation noteNo InformationNort [employer] Other Evaluation note* Diagnosis Onset Date Resolution Status Primary osteoarthritis of right knee acute [facility] Work Phone: Evaluation note* Diagnosis Onset Date Resolution Status Primary osteoarthritis of right knee acute Primary hypertension acute Acute sinusitis noneactive ASHD (arteriosclerotic heart disease) acute Hx of CABG acute Hyperlipidemia type II acute Primary hypertension acute Primary osteoarthritis of both knees acute Primary osteoarthritis of right knee acute Status post total right knee replacement acute Anxiety acute CAD (coronary artery disease) acute Hyperlipidemia type II acute Impaired mobility and activities of daily living acute Post-operative pain acute Primary hypertension acute Primary osteoarthritis of both knees acute Status post total right knee replacement acute [facility] Work Phone: Evaluation note* Diagnosis Onset Date Resolution Status Primary osteoarthritis of right knee acute Acute sinusitis noneactive ASHD (arteriosclerotic heart disease) acute Primary osteoarthritis of right knee acute ASHD (arteriosclerotic heart disease) acute Elevated cholesterol acute Acute sinusitis noneactive Acute blood loss anemia none active Aftercare following right kn ee joint replacement surgery acute [facility] Work Phone: History general Narrative - Reported* Type Description [...] Surgical History cholecystectomy Surgical History left TKA [facility] Other History general Narrative - Reported* Type [...] left TKA Hospitalization History see surgical history [facility] Other Summary Purpose Family History No Family History Records Found Relationship Condition Age at Onset Recorded Date/T karl family member Unknown father Congestive heart failure Unknown Not Specified Malignant neoplasm of lung Unknown brother Malignant neoplasm of liver Unknown Malignant neoplasm of urinary bladder Unk nown Advance Directives No Advanced Directives Records Found Advance Directive Response Recorded Date/ Time Advance Directives No April 6:19pm Advance Directive Response Recorded Date/ Time Advance Directives No April 7:19pm Chief Complaint and Reason for Visit Chief Complaint Follow Up F/U From Lt Hip Joint Injection Also Rec z79.899 m17.11m81.8 Pre-Op Clearance H&P RTKA Knee Pain RTK Pre Op Reason for Visit Primary osteoarthrit is of right knee Chief Complaint Follow Up F/U From Lt Hip Joint Injection Also Rec z79.899 m17.11m81.8 Pre-Op Clearance H&P RTKA m17.11 Knee Pain RTK Pre Op Reason for Visit Primary osteoarthrit is of right knee Chief Complaint F/U From Lt Hip Join t Injection Also Rec z79.899 m17.11m81.8 Pre-Op Clearance H&P RTKA m17.11 Knee Pain RTK Pre Op Sinuses, Cough, Sore Throat- [phone] Knee Pain Knee Pain Knee Pain Right Knee Osteoarthritis s/p TKA Right Knee Osteoarthritis s/p TKA Right Knee Osteoarthritis s/p TKA Right Knee Osteoarthritis s/p TKA Right Knee Osteoarthritis s/p TKA Right Knee Osteoarthritis s/p TKA Reason for Visit Primary osteoarthrit is of right knee Primary hypertension Acute sinusitis ASHD (arteriosclerotic heart disease) Hx of CABG Hyperlipidemia type II Primary hypertension Primary osteoarthritis of both knees Primary osteoarthritis of right knee Status post total right knee replacement Anxiety CAD (coronary artery disease) Hyperlipidemia type II Impaired mobility and activities of daily living Post-operative pain Primary hypertension Primary osteoarthritis of both knees Status post total right knee replacement Chief Complaint z79.899 m17.11m81.8 Pre-Op Clearance H&P RTKA m17.11 Knee Pain RTK Pre Op Sinuses, Cough, Sore Throat- [phone] Knee Pain Knee Pain Knee Pain Right Knee Osteoarthritis s/p TKA Right Knee Osteoarthritis s/p TKA Right Knee Osteoarthritis s/p TKA Right Knee Osteoarthritis s/p TKA Right Knee Osteoarthritis s/p TKA Right Knee Osteoarthritis s/p TKA Amb Documentation [facility] Discharge Follow Up Z47.1 - Aftercare following joint replacement surg 4 WK RECHECK Reason for Visit Primary osteoarthrit is of right knee Acute sinusitis ASHD (arteriosclerotic heart disease) Primary osteoarthritis of right knee ASHD (arteriosclerotic heart disease) Elevated cholesterol Acute sinusitis Acute blood loss anemia Aftercare following right knee joint replacement surgery Additional Source Comments INFORMATION SOURCE (unrecogn ized section and content) DATE CREATED AUTHOR 03/21/2021 [facility] DATE CREATED AUTHOR AUTHOR'S ORGANIZ ATION 12/06/2022 [facility] DATE CREATED AUTHOR AUTHOR'S ORGANIZ ATION 10/09/2023 [facility] DATE CREATED AUTHOR AUTHOR'S ORGANIZ ATION 10/25/2023 [facility] EPIC DATE CREATED AUTHOR AUTHOR'S ORGANIZ ATION 11/06/2023 [facility] REASON FOR VISIT (unrecogniz ed section and content) Lab resultsPre-Op ClearanceF /U FROM LT HIP JOINT INJECTION ALSO RECHECK RIGHT KNEE WANTS TO DISCUSS [id number] coldATB wantedNP LT KNEE PAIN UPDATE XRAYS PER [facility], SCHED AUTH APPROVED PREVIOUS TKA4 month Follow upPT order3 month Follow upSinus Infection/Cough-COVID Negative [phone] Care Teams (unrecognized sec tion and content) Team Status: Active Member Role Status Dates Odell Harrington DO Primary Care Provider Active Team Status: Inactive Member Role Status Dates Odell Harrington DO Attending Provider Active Sta rt: June 06, 2023 End: June 06, 2023 Team Status: Inactive Member Role Status Dates Magno Pichardo II, MD Attending Provider Active Start: July 09, 2023 End: July 09, 2023 Team Status: Inactive Member Role Status Dates Odell Harrington DO Primary Care Provider Active Start: July 23, 2023 End: July 23, 2023 Magno Pichardo II, MD Attending Provider Active Start: July 23, 2023 End: July 23, 2023 Team Status: Inactive Member Role Status Armand Harrington DO Attending Provider Active Sta rt: August 01, 2023 End: August 01, 2023 Team Status: Inactive Member Role Status Dates Odell Harrington DO Primary Care Provider Active Start: August 20, 2023 End: August 20, 2023 Magno Pichardo II, MD Attending Provider Active Start: August 20, 2023 End: August 20, 2023 Team Status: Active Member Role Status Dates Odell Harrington DO Primary Care Provider Active Start: August 20, 2023 Magno Pichardo II, MD Attending Provider Active Start: August 20, 2023 Team Status: Inactive Member Role Status Dates Odell Harrington DO Primary Care Provider Active Start: August 22, 2023 End: August 22, 2023 Magno Pichardo II, MD Attending Provider Active Start: August 22, 2023 End: August 22, 2023 Team Status: Inactive Member Role Status Dates Odell Harrington DO Primary Care Provide r, Attending Provider Active Start: August 25, 2023 End: August 25, 2023 Team Status: Active Member Role Status Dates Odell Harrington DO Primary Care Provider Active Start: September 01, 2023 Magno Pichardo II, MD Admit Provider, Attending Provider, Other Provider Active Start: September 01, 2023 Ana Berry , GLO Other Provider Active Star t: September 01, 2023 End: September 02, 2023 Nuha Mcmahan , GLO Other Provider Active Start : September 01, 2023 End: September 02, 2023 Anne Ha , GLO Other Provider Active Start: [facility] 2023 End: September 02, 2023 Bernie Bell , GLO Other Provider Active Star t: September 01, 2023 End: September 02, 2023 Cecelia Villegas , GLO Other Provider Active Start : September 01, 2023 End: September 02, 2023 Zina Kunz RN Other Provider Active Start: [facility] 2023 End: September 02, 2023 Carline Cardozo RN Other Provider Active Start: [facility] 2023 End: September 02, 2023 Annalisa Gar MD Other Provider Active Start: September 01, 2023 End: September 02, 2023 Foster Santiago MD Other Provider Active Start: [facility] 2023 End: September 02, 2023 Lulú Garcia APRN Other Provider Active Start: September 01, 2023 End: September 02, 2023 Genesis Andre DO Other Provider Active Start : September 01, 2023 End: September 02, 2023 Bhupinder San MD Other Provider Active Start : September 01, 2023 End: September 02, 2023 Ron Guajardo DO Other Provider Active Start: September 01, 2023 End: September 02, 2023 Gilbert Lanier MD Other Provider Active Start: September 01, 2023 End: September 02, 2023 Peri Grubbs MD Other Provider Active Start : September 01, 2023 End: September 02, 2023 Raymond Hilton MD Other Provider Active Start: [facility] 2023 End: September 02, 2023 Patricia Mayberry APRN Other Provider Active Start: September 01, 2023 End: September 02, 2023 Warren Mera MD Other Provider Active Start: September 01, 2023 End: September 02, 2023 Flavio Woods MD Other Provider Active Start: [facility] 2023 End: September 02, 2023 Saud Zuniga MD Other Provider Active Start: September 01, 2023 End: September 02, 2023 Benjamin Plasencia MD Other Provider Active Start: September 01, 2023 End: September 02, 2023 Roger Carranza DO Other Provider Active Start: September 01, 2023 End: September 02, 2023 Ricardo Souza MD Other Provider Active Start: [facility] 2023 End: September 02, 2023 Allen Andres MD Other Provider Active Start: [facility] 2023 End: September 02, 2023 Lashonda Earl NP-C Other Provider Active St art: September 01, 2023 End: September 02, 2023 Sloane Martin APRN Other Provider Active Star t: September 01, 2023 End: September 02, 2023 Huy Rosenbaum MD Other Provider Active Start: September 01, 2023 End: September 02, 2023 Augie Ontiveros MD Other Provider Active Start: [facility] 2023 End: September 02, 2023 Lc Lima MD Other Provider Active Start: [facility] 2023 End: September 02, 2023 Mati Alberto MD Other Provider Active Star t: September 01, 2023 End: September 02, 2023 Farhan Smith MD Other Provider Active Start: [facility] 2023 End: September 02, 2023 Rakel Regan DO Other Provider Active Start: [facility] 2023 End: September 02, 2023 Silverio Irizarry DO Other Provider Active Start : September 01, 2023 End: September 02, 2023 Jean-Pierre Mariee DO Other Provider Active Sta rt: September 01, 2023 End: September 02, 2023 Carol Holland APRN Other Provider Active Start: September 01, 2023 End: September 02, 2023 Pj Knapp DO Other Provider Active Start: September 01, 2023 End: September 02, 2023 Paula Ramirez MD Other Provider Active Sta rt: September 01, 2023 End: September 02, 2023 Antonella Moore APRN Other Provider Active Start : September 01, 2023 End: September 02, 2023 Chetna Zaragoza APRN Other Provider Active St art: September 01, 2023 End: September 02, 2023 Tushar Cohen MD Other Provider Active Start: [facility] 2023 End: September 02, 2023 Vidal Akins MD Other Provider Active S tart: September 01, 2023 End: September 02, 2023 Aiden Stoll , DO Other Provider Active Star t: September 01, 2023 End: September 02, 2023 Lucas Carrillo , Other Provider Active Start: September 01, 2023 End: September 02, 2023 Jordy Lima MD Other Provider Active Start: September 01, 2023 End: September 02, 2023 Martina Thakkar , GLO Other Provider Active Start: [facility] 2023 End: September 02, 2023 Dilip Laird MD Other Provider Active Start: [facility] 2023 End: September 02, 2023 Team Status: Active Member Role Status Armand Harrington DO Primary Care Provider Active Start: September 01, 2023 Magno Pichardo II, MD Admit Provider, Other Provider Active Start: September 01, 2023 Ana Berry , GLO Other Provider Active Star t: September 01, 2023 Nuha Mcmahan , GLO Other Provider Active Start : September 01, 2023 Anne Ha , GLO Other Provider Active Start: [facility] 2023 Bernie Bell , GLO Other Provider Active Star t: September 01, 2023 Cecelia Villegas , GLO Other Provider Active Start : September 01, 2023 Zina Kunz , GLO Other Provider Active Start: [facility] 2023 Carline Cardozo , GLO Other Provider Active Start: [facility] 2023 Annalisa Gar MD Other Provider Active Start: September 01, 2023 Foster Santiago MD Other Provider Active Start: [facility] 2023 Lulú Garcia APRN Other Provider Active Start: September 01, 2023 Genesis Andre DO Other Provider Active Start : September 01, 2023 Bhupinder San MD Other Provider Active Start : September 01, 2023 Ron Guajardo DO Other Provider Active Start: September 01, 2023 Gilbert Lanier MD Other Provider Active Start: September 01, 2023 Peri Grubbs MD Attending Provider, Other Provider Active Start: September 01, 2023 Raymond Hilton MD Other Provider Active Start: [facility] 2023 Patricia Mayberry APRN Other Provider Active Start: September 01, 2023 Warren Mera MD Other Provider Active Start: September 01, 2023 Flavio Woods MD Other Provider Active Start: [facility] 2023 Saud Zuniga MD Other Provider Active Start: September 01, 2023 Benjamin Plasencia MD Other Provider Active Start: September 01, 2023 Roger Carranza , DO Other Provider Active Start: September 01, 2023 Ricardo Souza MD Other Provider Active Start: [facility] 2023 Allen Anrdes MD Other Provider Active Start: [facility] 2023 Lashonda Earl NP-C Other Provider Active St art: September 01, 2023 Sloane Martin APRN Other Provider Active Star t: September 01, 2023 Huy Rosenbaum MD Other Provider Active Start: September 01, 2023 Augie Ontiveros MD Other Provider Active Start: [facility] 2023 Lc Lima MD Other Provider Active Start: [facility] 2023 Mati Alberto MD Other Provider Active Star t: September 01, 2023 Farhan Smith MD Other Provider Active Start: [facility] 2023 Rakel Regan , DO Other Provider Active Start: [facility] 2023 Silverio Irizarry , DO Other Provider Active Start : September 01, 2023 Jean-Pierre Mariee , DO Other Provider Active Sta rt: September 01, 2023 Carol Holland APRN Other Provider Active Start: September 01, 2023 Pj Knapp , Other Provider Active Start: September 01, 2023 Paula Ramirez MD Other Provider Active Sta rt: September 01, 2023 Antonella Moore APRN Other Provider Active Start : September 01, 2023 Chetna Zaragoza APRN Other Provider Active St art: September 01, 2023 Tushar Cohen MD Other Provider Active Start: [facility] 2023 Vidal Akins MD Other Provider Active S tart: September 01, 2023 Aiden Stoll , DO Other Provider Active Star t: September 01, 2023 Yazid Gerardo , DO Other Provider Active Start: September 01, 2023 Jordy Lima MD Other Provider Active Start: September 01, 2023 Martina Thakkar , GLO Other Provider Active Start: [facility] 2023 Dilip Laird MD Other Provider Active Start: [facility] 2023 Team Status: Active Member Role Status Dates Odell Harrington , Primary Care Provider Active Start: September 02, 2023 Magno Pichardo II, MD Admit Provider, Other Provider Active Start: September 02, 2023 Ana Berry RN Other Provider Active Star t: September 02, 2023 Nuha Mcmahan , GLO Other Provider Active Start : September 02, 2023 Anne Ha , GLO Other Provider Active Start: [facility] 2023 Bernie Bell RN Other Provider Active Star t: September 02, 2023 Cecelia Villegas RN Other Provider Active Start : September 02, 2023 Zina Kunz RN Other Provider Active Start: [facility] 2023 Carline Cardozo RN Other Provider Active Start: [facility] 2023 Annalisa Gar MD Other Provider Active Start: September 02, 2023 Foster Santiago MD Other Provider Active Start: [facility] 2023 Lulú Garcia APRN Other Provider Active Start: September 02, 2023 Genesis Andre DO Other Provider Active Start : September 02, 2023 Bhupinder San MD Other Provider Active Start : September 02, 2023 Ron Guajardo DO Other Provider Active Start: September 02, 2023 Gilbert Lanier MD Other Provider Active Start: September 02, 2023 Peri Grubbs MD Other Provider Active Start : September 02, 2023 Raymond Hilton MD Other Provider Active Start: [facility] 2023 Patricia Mayberry APRN Other Provider Active Start: September 02, 2023 Warren Mera MD Other Provider Active Start: September 02, 2023 Flavio Woods MD Other Provider Active Start: [facility] 2023 Saud Zuniga MD Other Provider Active Start: September 02, 2023 Benjamin Plasencia MD Other Provider Active Start: September 02, 2023 Roger Carranza DO Other Provider Active Start: September 02, 2023 Ricardo Souza MD Other Provider Active Start: [facility] 2023 Allen Andres MD Other Provider Active Start: [facility] 2023 Lashonda Earl , ANESTHESIA ASSISTANT-C Other Provider Active St art: September 02, 2023 Sloane Martin APRN Other Provider Active Star t: September 02, 2023 Huy Rosenbaum MD Other Provider Active Start: September 02, 2023 Augie Ontiveros MD Other Provider Active Start: [facility] 2023 Lc Lima MD Other Provider Active Start: [facility] 2023 Mati Alberto MD Other Provider Active Star t: September 02, 2023 Farhan Smith MD Other Provider Active Start: [facility] 2023 Rakel Regan , Other Provider Active Start: [facility] 2023 Silverio Irizarry , DO Other Provider Active Start : September 02, 2023 Jean-Pierre Mariee , DO Other Provider Active Sta rt: September 02, 2023 Carol Holland APRN Other Provider Active Start: September 02, 2023 Pj Knapp , Other Provider Active Start: September 02, 2023 Paula Ramirez MD Other Provider Active Sta rt: September 02, 2023 Antonella Moore APRN Other Provider Active Start : September 02, 2023 Chetna Zaragoza APRN Other Provider Active St art: September 02, 2023 Tushar Cohen MD Other Provider Active Start: [facility] 2023 Vidal Akins MD Other Provider Active S tart: September 02, 2023 Aiden Stoll , Other Provider Active Star t: September 02, 2023 Lucas Carrillo , Other Provider Active Start: September 02, 2023 Jordy Lima MD Other Provider Active Start: September 02, 2023 Martina Thakkar , GLO Other Provider Active Start: [facility] 2023 Dilip Laird MD Attending Provider, Other Provider Active Start: September 02, 2023 Team Status: Inactive Member Role Status Armand Harrington DO Primary Care Provider Active Start: September 02, 2023 End: September 15, 2023 Elijah Mayers MD Admit [facility], Attending Provider Active Start: September 02, 2023 End: September 15, 2023 Ana Berry RN Other Provider Active Star t: September 02, 2023 End: September 15, 2023 Nuha Mcmahan , GLO Other Provider Active Start : September 02, 2023 End: September 15, 2023 Anne Ha , GLO Other Provider Active Start: [facility] 2023 End: September 15, 2023 Bernie Bell , GLO Other Provider Active Star t: September 02, 2023 End: September 15, 2023 Cecelia Villegas RN Other Provider Active Start : September 02, 2023 End: September 15, 2023 Zina Kuzn , GLO Other Provider Active Start: [facility] 2023 End: September 15, 2023 Carline Cardozo RN Other Provider Active Start: [facility] 2023 End: September 15, 2023 Annalisa Gar MD Other Provider Active Start: September 02, 2023 End: September 15, 2023 Foster Santiago MD Other Provider Active Start: [facility] 2023 End: September 15, 2023 Lulú Garcia APRN Other Provider Active Start: September 02, 2023 End: September 15, 2023 Genesis Andre DO Other Provider Active Start : September 02, 2023 End: September 15, 2023 hBupinder San MD Other Provider Active Start : September 02, 2023 End: September 15, 2023 Ron Guajardo DO Other Provider Active Start: September 02, 2023 End: September 15, 2023 Gilbert Lanier MD Other Provider Active Start: September 02, 2023 End: September 15, 2023 Peri Grubbs MD Other Provider Active Start : September 02, 2023 End: September 15, 2023 Raymond Hilton MD Other Provider Active Start: [facility] 2023 End: September 15, 2023 Patricia Mayberry APRN Other Provider Active Start: September 02, 2023 End: September 15, 2023 Warren Mera MD Other Provider Active Start: September 02, 2023 End: September 15, 2023 Flavio Woods MD Other Provider Active Start: [facility] 2023 End: September 15, 2023 Saud Zuniga MD Other Provider Active Start: September 02, 2023 End: September 15, 2023 Benjamin Plasencia MD Other Provider Active Start: September 02, 2023 End: September 15, 2023 Roger Carranza DO Other Provider Active Start: September 02, 2023 End: September 15, 2023 Ricardo Souza MD Other Provider Active Start: [facility] 2023 End: September 15, 2023 Allen Andres MD Other Provider Active Start: [facility] 2023 End: September 15, 2023 Lashonda Earl ANESTHESIA ASSISTANT-C Other Provider Active St art: September 02, 2023 End: September 15, 2023 Sloane Martin APRN Other Provider Active Star t: September 02, 2023 End: September 15, 2023 Huy Rosenbaum MD Other Provider Active Start: September 02, 2023 End: September 15, 2023 Augie Ontiveros MD Other Provider Active Start: [facility] 2023 End: September 15, 2023 Lc Lima MD Other Provider Active Start: [facility] 2023 End: September 15, 2023 Mati Alberto MD Other Provider Active Star t: September 02, 2023 End: September 15, 2023 Farhan Smith MD Other Provider Active Start: [facility] 2023 End: September 15, 2023 Rakel Regan DO Other Provider Active Start: [facility] 2023 End: September 15, 2023 Silverio Irizarry DO Other Provider Active Start : September 02, 2023 End: September 15, 2023 Jean-Pierre Mariee DO Other Provider Active Sta rt: September 02, 2023 End: September 15, 2023 Carol Holland APRN Other Provider Active Start: September 02, 2023 End: September 15, 2023 Pj Knapp DO Other Provider Active Start: September 02, 2023 End: September 15, 2023 Paula Ramirez MD Other Provider Active Sta rt: September 02, 2023 End: September 15, 2023 Antonella Moore APRN Other Provider Active Start : September 02, 2023 End: September 15, 2023 Chetna Zaragoza APRN Other Provider Active St art: September 02, 2023 End: September 15, 2023 Tushar Cohen MD Other Provider Active Start: [facility] 2023 End: September 15, 2023 Vidal Akins MD Other Provider Active S tart: September 02, 2023 End: September 15, 2023 Aiden Stoll , Other Provider Active Star t: September 02, 2023 End: September 15, 2023 Jordy Lima MD Other Provider Active Start: September 02, 2023 End: September 15, 2023 Martina Thakkar , GLO Other Provider Active Start: [facility] 2023 End: September 15, 2023 Team Status: Active Member Role Status Dates Odell Harrington , Primary Care Provider Active Start: September 03, 2023 Elijah Mayers MD Admit Provid er, Other Provider Active Start: September 03, 2023 Ana Berry RN Other Provider Active Star t: September 03, 2023 Nuha Mcmahan , GLO Other Provider Active Start : September 03, 2023 Anne Ha RN Other Provider Active Start: [facility] 2023 Bernie Bell , GLO Other Provider Active Star t: September 03, 2023 Cecelia Villegas RN Other Provider Active Start : September 03, 2023 Zina Kunz , GLO Other Provider Active Start: [facility] 2023 Carline Cardozo , GLO Other Provider Active Start: [facility] 2023 Annalisa Gar MD Other Provider Active Start: September 03, 2023 Foster Santiago MD Other Provider Active Start: [facility] 2023 Lulú Garcia APRN Other Provider Active Start: September 03, 2023 Genesis Andre DO Other Provider Active Start : September 03, 2023 Bhupinder San MD Other Provider Active Start : September 03, 2023 Ron Guajardo DO Other Provider Active Start: September 03, 2023 Gilbert Lanier MD Other Provider Active Start: September 03, 2023 Peri Grubbs MD Other Provider Active Start : September 03, 2023 Raymond Hilton MD Other Provider Active Start: [facility] 2023 Patricia Mayberry APRN Other Provider Active Start: September 03, 2023 Warren Mera MD Other Provider Active Start: September 03, 2023 Flavio Woods MD Other Provider Active Start: [facility] 2023 Saud Zuniga MD Other Provider Active Start: September 03, 2023 Benjamin Plasencia MD Other Provider Active Start: September 03, 2023 Roger Carranza , Other Provider Active Start: September 03, 2023 Ricardo Souza MD Other Provider Active Start: [facility] 2023 Allen Andres MD Other Provider Active Start: [facility] 2023 Lashonda Earl ANESTHESIA ASSISTANT-C Other Provider Active St art: September 03, 2023 Sloane Martin APRN Other Provider Active Star t: September 03, 2023 Huy Rosenbaum MD Other Provider Active Start: September 03, 2023 Augie Ontiveros MD Other Provider Active Start: [facility] 2023 Lc Lima MD Other Provider Active Start: [facility] 2023 Mati Alberto MD Other Provider Active Star t: September 03, 2023 Farhan Smith MD Other Provider Active Start: [facility] 2023 Rakel Regan , DO Other Provider Active Start: [facility] 2023 Silverio Irizarry , DO Other Provider Active Start : September 03, 2023 Jean-Pierre Mariee , DO Other Provider Active Sta rt: September 03, 2023 Carol Holland APRN Other Provider Active Start: September 03, 2023 Pj Knapp , DO Other Provider Active Start: September 03, 2023 Paula Ramirez MD Other Provider Active Sta rt: September 03, 2023 Antonella Moore APRN Other Provider Active Start : September 03, 2023 Chetna Zaragoza APRN Other Provider Active St art: September 03, 2023 Tushar Cohen MD Other Provider Active Start: [facility] 2023 Vidal Akins MD Other Provider Active S tart: September 03, 2023 Aiden Stoll , DO Other Provider Active Star t: September 03, 2023 Lucas Carrillo , DO Other Provider Active Start: September 03, 2023 Jordy Lima MD Other Provider Active Start: September 03, 2023 Martina Thakkar RN Other Provider Active Start: [facility] 2023 Heidi Mesa APRN Attending Provider Active Start: September 03, 2023 Team Status: Active Member Role Status Dates Odell Harrington , Primary Care Provider Active Start: September 03, 2023 Elijah Mayers MD Admit Provid er, Other Provider Active Start: September 03, 2023 Ana Berry , GLO Other Provider Active Star t: September 03, 2023 Nuha Mcmahan , GLO Other Provider Active Start : September 03, 2023 Anne Ha , GLO Other Provider Active Start: [facility] 2023 Bernie Bell RN Other Provider Active Star t: September 03, 2023 Cecelia Villegas RN Other Provider Active Start : September 03, 2023 Zina Kunz , GLO Other Provider Active Start: [facility] 2023 Carline Cardozo RN Other Provider Active Start: [facility] 2023 Annalisa Gar MD Other Provider Active Start: September 03, 2023 Foster Santiago MD Other Provider Active Start: [facility] 2023 Lulú Garcia APRN Other Provider Active Start: September 03, 2023 Genesis Andre DO Other Provider Active Start : September 03, 2023 Bhupinder San MD Other Provider Active Start : September 03, 2023 Ron Guajardo DO Other Provider Active Start: September 03, 2023 Gilbert Lanier MD Other Provider Active Start: September 03, 2023 Peri Grubbs MD Other Provider Active Start : September 03, 2023 Raymond Hilton MD Other Provider Active Start: [facility] 2023 Patricia Mayberry APRN Other Provider Active Start: September 03, 2023 Warren Mera MD Other Provider Active Start: September 03, 2023 Flavio Woods MD Other Provider Active Start: [facility] 2023 Saud Zuniga MD Other Provider Active Start: September 03, 2023 Benjamin Plasencia MD Other Provider Active Start: September 03, 2023 Roger Carranza DO Other Provider Active Start: September 03, 2023 Ricardo Souza MD Other Provider Active Start: [facility] 2023 Allen Andres MD Other Provider Active Start: [facility] 2023 Lashonda Earl NP-C Other Provider Active St art: September 03, 2023 Sloane Martin , [employer]ORTS OFFICIAL Other Provider Active Star t: September 03, 2023 Huy Rosenbaum MD Other Provider Active Start: September 03, 2023 Augie Ontiveros MD Other Provider Active Start: [facility] 2023 Lc Lima MD Other Provider Active Start: [facility] 2023 Mati Alberto MD Other Provider Active Star t: September 03, 2023 Farhan Smith MD Other Provider Active Start: [facility] 2023 Rakel Regan , DO Other Provider Active Start: [facility] 2023 Silverio Irizarry , DO Other Provider Active Start : September 03, 2023 Jean-Pierre Mariee , DO Other Provider Active Sta rt: September 03, 2023 Carol Holland APRN Attending Provider, Other Provider Active Start: September 03, 2023 Pj Knapp , Other Provider Active Start: September 03, 2023 Paula Ramirez MD Other Provider Active Sta rt: September 03, 2023 Antonella Moore APRN Other Provider Active Start : September 03, 2023 Chetna Zaragoza APRN Other Provider Active St art: September 03, 2023 Tushar Cohen MD Other Provider Active Start: [facility] 2023 Vidal Akins MD Other Provider Active S tart: September 03, 2023 Aiden Stoll , Other Provider Active Star t: September 03, 2023 Lucas Carrillo , Other Provider Active Start: September 03, 2023 Jordy Lima MD Other Provider Active Start: September 03, 2023 Martina Thakkar , GLO Other Provider Active Start: [facility] 2023 Team Status: Active Member Role Status Armand Harrington , Primary Care Provider Active Start: September 10, 2023 Elijah Mayers MD Admit Provid er, Attending Provider, Other Provider Active Start: September 10, 2023 Ana Berry RN Other Provider Active Star t: September 10, 2023 Nuha Mcmahan , GLO Other Provider Active Start : September 10, 2023 Anne Ha , GLO Other Provider Active Start: [facility] 2023 Bernie Bell , GLO Other Provider Active Star t: September 10, 2023 Cecelia Villegas RN Other Provider Active Start : September 10, 2023 Zina Kunz , GLO Other Provider Active Start: [facility] 2023 Carline Cardozo RN Other Provider Active Start: [facility] 2023 Annalisa Gar MD Other Provider Active Start: September 10, 2023 Foster Santiago MD Other Provider Active Start: [facility] 2023 Lulú Garcia APRN Other Provider Active Start: September 10, 2023 Genesis Andre DO Other Provider Active Start : September 10, 2023 Bhupinder San MD Other Provider Active Start : September 10, 2023 Ron Guajardo DO Other Provider Active Start: September 10, 2023 Gilbert Lanier MD Other Provider Active Start: September 10, 2023 Peri Grubbs MD Other Provider Active Start : September 10, 2023 Raymond Hilton MD Other Provider Active Start: [facility] 2023 Patricia Mayberry APRN Other Provider Active Start: September 10, 2023 Warren Mera MD Other Provider Active Start: September 10, 2023 Flavio Woods MD Other Provider Active Start: [facility] 2023 Saud Zuniga MD Other Provider Active Start: September 10, 2023 Benjamin Plasencia MD Other Provider Active Start: September 10, 2023 Roger Carranza DO Other Provider Active Start: September 10, 2023 Ricardo Souza MD Other Provider Active Start: [facility] 2023 Allen Andres MD Other Provider Active Start: [facility] 2023 Lashonda Earl NP-Magaly Other Provider Active St art: September 10, 2023 Sloane Martin APRN Other Provider Active Star t: September 10, 2023 Huy Rosenbaum MD Other Provider Active Start: September 10, 2023 Augie Ontiveros MD Other Provider Active Start: [facility] 2023 Lc Lima MD Other Provider Active Start: [facility] 2023 Mati Alberto MD Other Provider Active Star t: September 10, 2023 Farhan Smith MD Other Provider Active Start: [facility] 2023 Rakel Regan , DO Other Provider Active Start: [facility] 2023 Silverio Irizarry , DO Other Provider Active Start : September 10, 2023 Jean-Pierre Mariee , DO Other Provider Active Sta rt: September 10, 2023 Carol Holland APRN Other Provider Active Start: September 10, 2023 Pj Knapp , Other Provider Active Start: September 10, 2023 Paula Ramirez MD Other Provider Active Sta rt: September 10, 2023 Antonella Moore APRN Other Provider Active Start : September 10, 2023 Chetna Zaragoza APRN Other Provider Active St art: September 10, 2023 Tushar Cohen MD Other Provider Active Start: [facility] 2023 Vidal Akins MD Other Provider Active S tart: September 10, 2023 Aiden Stoll , DO Other Provider Active Star t: September 10, 2023 Lucas Carrillo , Other Provider Active Start: September 10, 2023 Jordy Lima MD Other Provider Active Start: September 10, 2023 Martina Thakkar , GLO Other Provider Active Start: [facility] 2023 Team Status: Active Member Role Status Armand Harrington DO Primary Care Provider Active Start: September 11, 2023 Elijah Mayers MD Admit Provid er, Other Provider Active Start: September 11, 2023 Ana Berry , GLO Other Provider Active Star t: September 11, 2023 Nuha Mcmahan , GLO Other Provider Active Start : September 11, 2023 Anne Ha , GLO Other Provider Active Start: [facility] 2023 Bernie Bell , GLO Other Provider Active Star t: September 11, 2023 Cecelia Villegas , GLO Other Provider Active Start : September 11, 2023 Zina Kunz , GLO Other Provider Active Start: [facility] 2023 Carline Cardozo , GLO Other Provider Active Start: [facility] 2023 Annalisa Gar MD Other Provider Active Start: September 11, 2023 Foster Santiago MD Other Provider Active Start: [facility] 2023 Lulú Garcia APRN Other Provider Active Start: September 11, 2023 Genesis Andre , Other Provider Active Start : September 11, 2023 Bhupinder San MD Other Provider Active Start : September 11, 2023 Ron Guajardo , Other Provider Active Start: September 11, 2023 Gilbert Lanier MD Other Provider Active Start: September 11, 2023 Peri Grubbs MD Other Provider Active Start : September 11, 2023 Raymond Hilton MD Other Provider Active Start: [facility] 2023 Patricia Mayberry APRN Other Provider Active Start: September 11, 2023 Warren Mera MD Other Provider Active Start: September 11, 2023 Flavio Woods MD Other Provider Active Start: [facility] 2023 Saud Zuniga MD Other Provider Active Start: September 11, 2023 Benjamin Plasencia MD Other Provider Active Start: September 11, 2023 Roger Carranza , Other Provider Active Start: September 11, 2023 Ricardo Souza MD Other Provider Active Start: [facility] 2023 Allen Andres MD Other Provider Active Start: [facility] 2023 Lashonda Earl NP-C Other Provider Active St art: September 11, 2023 Sloane Martin APRN Other Provider Active Star t: September 11, 2023 Huy Rosenbaum MD Other Provider Active Start: September 11, 2023 Augie Ontiveros MD Other Provider Active Start: [facility] 2023 Lc Lima MD Other Provider Active Start: [facility] 2023 Mati Alberto MD Other Provider Active Star t: September 11, 2023 Farhan Smith MD Other Provider Active Start: [facility] 2023 Rakel Regan , Other Provider Active Start: [facility] 2023 Silverio Irizarry , Other Provider Active Start : September 11, 2023 Jean-Pierre Mariee , DO Other Provider Active Sta rt: September 11, 2023 Carol Holland APRN Other Provider Active Start: September 11, 2023 Pj Knapp , Other Provider Active Start: September 11, 2023 Paula Ramirez MD Other Provider Active Sta rt: September 11, 2023 Antonella Moore APRN Other Provider Active Start : September 11, 2023 Chetna Zaragoza APRN Other Provider Active St art: September 11, 2023 Tushar Cohen MD Other Provider Active Start: [facility] 2023 Vidal Akins MD Other Provider Active S tart: September 11, 2023 Aiden Stoll , Other Provider Active Star t: September 11, 2023 Lucas Carrillo DO Other Provider Active Start: September 11, 2023 Jordy Lima MD Other Provider Active Start: September 11, 2023 Martina Thakkar RN Other Provider Active Start: [facility] 2023 Magno Pichardo II, MD Attending Provider Active Start: September 11, 2023 Team Status: Active Member Role Status Armand Harrington DO Primary Care Provider Active Start: September 13, 2023 Elijah Mayers MD Admit Provid er, Other Provider Active Start: September 13, 2023 Ana Berry , GLO Other Provider Active Star t: September 13, 2023 Nuha Mcmahan , GLO Other Provider Active Start : September 13, 2023 Anne Ha , GLO Other Provider Active Start: [facility] 2023 Bernie Bell , GLO Other Provider Active Star t: September 13, 2023 Cecelia Villegas , GLO Other Provider Active Start : September 13, 2023 Zina Kunz , GLO Other Provider Active Start: [facility] 2023 Carline Cardozo , GLO Other Provider Active Start: [facility] 2023 Annalisa Gar MD Other Provider Active Start: September 13, 2023 Foster Santiago MD Other Provider Active Start: [facility] 2023 Lulú Garcia APRN Other Provider Active Start: September 13, 2023 Genesis Andre DO Other Provider Active Start : September 13, 2023 Bhupinder San MD Other Provider Active Start : September 13, 2023 Ron Guajardo DO Other Provider Active Start: September 13, 2023 Gilbert Lanier MD Other Provider Active Start: September 13, 2023 Peri Grubbs MD Other Provider Active Start : September 13, 2023 Raymond Hilton MD Other Provider Active Start: [facility] 2023 Patricia Mayberry APRN Attending María packer, Other Provider Active Start: September 13, 2023 Warren Mera MD Other Provider Active Start: September 13, 2023 Flavio Woods MD Other Provider Active Start: [facility] 2023 Saud Zuniga MD Other Provider Active Start: September 13, 2023 Benjamin Plasencia MD Other Provider Active Start: September 13, 2023 Roger Carranza DO Other Provider Active Start: September 13, 2023 Ricardo Souza MD Other Provider Active Start: [facility] 2023 Allen Andres MD Other Provider Active Start: [facility] 2023 Lashonda Earl , ANESTHESIA ASSISTANT-C Other Provider Active St art: September 13, 2023 Sloane Martin APRN Other Provider Active Star t: September 13, 2023 Huy Rosenbaum MD Other Provider Active Start: September 13, 2023 Augie Ontiveros MD Other Provider Active Start: [facility] 2023 Lc Lima MD Other Provider Active Start: [facility] 2023 Mati Alberto MD Other Provider Active Star t: September 13, 2023 Farhan Smith MD Other Provider Active Start: [facility] 2023 Rakel Regan , Other Provider Active Start: [facility] 2023 Silverio Irizarry , Other Provider Active Start : September 13, 2023 Jean-Pierre Mariee , Other Provider Active Sta rt: September 13, 2023 Carol Holland APRN Other Provider Active Start: September 13, 2023 Pj Knapp DO Other Provider Active Start: September 13, 2023 Paula Ramirez MD Other Provider Active Sta rt: September 13, 2023 Antonella Moore APRN Other Provider Active Start : September 13, 2023 Chetna Zaragoza APRN Other Provider Active St art: September 13, 2023 Tushar Cohen MD Other Provider Active Start: [facility] 2023 Vidal Akins MD Other Provider Active S tart: September 13, 2023 Aiden Stoll , Other Provider Active Star t: September 13, 2023 Jordy Lima MD Other Provider Active Start: September 13, 2023 Martina Thakkar , GLO Other Provider Active Start: [facility] 2023 Team Status: Active Member Role Status Armand Harrington DO Primary Care Provider Active Start: September 03, 2023 End: September 15, 2023 Elijah Mayers MD Admit Provid er, Other Provider Active Start: September 03, 2023 End: September 15, 2023 Ana Berry , GLO Other Provider Active Star t: September 03, 2023 End: September 15, 2023 Nuha Mcmahan RN Other Provider Active Start : September 03, 2023 End: September 15, 2023 Anne Ha , GLO Other Provider Active Start: [facility] 2023 End: September 15, 2023 Bernie Bell RN Other Provider Active Star t: September 03, 2023 End: September 15, 2023 Cecelia Villegas RN Other Provider Active Start : September 03, 2023 End: September 15, 2023 Zina Kunz , GLO Other Provider Active Start: [facility] 2023 End: September 15, 2023 Carline Cardozo RN Other Provider Active Start: [facility] 2023 End: September 15, 2023 Annalisa Gar MD Other Provider Active Start: September 03, 2023 End: September 15, 2023 Foster Santiago MD Other Provider Active Start: [facility] 2023 End: September 15, 2023 Lulú Garcia APRN Other Provider Active Start: September 03, 2023 End: September 15, 2023 Genesis Andre DO Other Provider Active Start : September 03, 2023 End: September 15, 2023 Bhupinder San MD Other Provider Active Start : September 03, 2023 End: September 15, 2023 Ron Guajardo DO Other Provider Active Start: September 03, 2023 End: September 15, 2023 Gilbert Lanier MD Other Provider Active Start: September 03, 2023 End: September 15, 2023 Peri Grubbs MD Other Provider Active Start : September 03, 2023 End: September 15, 2023 Raymond Hilton MD Other Provider Active Start: [facility] 2023 End: September 15, 2023 Patricia Mayberry APRN Other Provider Active Start: September 03, 2023 End: September 15, 2023 Warren Mera MD Other Provider Active Start: September 03, 2023 End: September 15, 2023 Flavio Woods MD Other Provider Active Start: [facility] 2023 End: September 15, 2023 Saud Zuniga MD Other Provider Active Start: September 03, 2023 End: September 15, 2023 Benjamin Plasencia MD Other Provider Active Start: September 03, 2023 End: September 15, 2023 Roger Carranza DO Other Provider Active Start: September 03, 2023 End: September 15, 2023 Ricardo Souza MD Other Provider Active Start: [facility] 2023 End: September 15, 2023 Allen Andres MD Other Provider Active Start: [facility] 2023 End: September 15, 2023 Lashonda Earl NP-C Other Provider Active St art: September 03, 2023 End: September 15, 2023 Sloane Martin APRN Other Provider Active Star t: September 03, 2023 End: September 15, 2023 Huy Rosenbaum MD Other Provider Active Start: September 03, 2023 End: September 15, 2023 Augie Ontiveros MD Other Provider Active Start: [facility] 2023 End: September 15, 2023 Lc Lima MD Other Provider Active Start: [facility] 2023 End: September 15, 2023 Mati Alberto MD Other Provider Active Star t: September 03, 2023 End: September 15, 2023 Farhan Smith MD Other Provider Active Start: [facility] 2023 End: September 15, 2023 Rakel Regan DO Other Provider Active Start: [facility] 2023 End: September 15, 2023 Silverio Irizarry DO Other Provider Active Start : September 03, 2023 End: September 15, 2023 Jean-Pierre Mariee , DO Other Provider Active Sta rt: September 03, 2023 End: September 15, 2023 Carol Holland APRN Other Provider Active Start: September 03, 2023 End: September 15, 2023 Pj Knapp DO Other Provider Active Start: September 03, 2023 End: September 15, 2023 Paula Ramirez MD Other Provider Active Sta rt: September 03, 2023 End: September 15, 2023 Antonella Moore APRN Other Provider Active Start : September 03, 2023 End: September 15, 2023 Chetna Zaragoza APRN Other Provider Active St art: September 03, 2023 End: September 15, 2023 Tushar Cohen MD Other Provider Active Start: [facility] 2023 End: September 15, 2023 Vidal Akins MD Other Provider Active S tart: September 03, 2023 End: September 15, 2023 Aiden Stoll , Other Provider Active Star t: September 03, 2023 End: September 15, 2023 Lucas Carrillo DO Other Provider Active Start: September 03, 2023 End: September 15, 2023 Jordy Lima MD Other Provider Active Start: September 03, 2023 End: September 15, 2023 Martina Thakkar RN Other Provider Active Start: [facility] 2023 End: September 15, 2023 Heidi Mesa APRN Attending Provider Active Start: September 03, 2023 End: September 15, 2023 Team Status: Active Member Role Status Armand Harrington DO Primary Care Provider Active Start: September 03, 2023 End: September 15, 2023 Elijah Mayers MD Admit Provid er, Other Provider Active Start: September 03, 2023 End: September 15, 2023 Ana Berry , GLO Other Provider Active Star t: September 03, 2023 End: September 15, 2023 Nuha Mcmahan RN Other Provider Active Start : September 03, 2023 End: September 15, 2023 Anne Ha , GLO Other Provider Active Start: [facility] 2023 End: September 15, 2023 Bernie Bell RN Other Provider Active Star t: September 03, 2023 End: September 15, 2023 Cecelia Villegas , GLO Other Provider Active Start : September 03, 2023 End: September 15, 2023 Zina Kunz , GLO Other Provider Active Start: [facility] 2023 End: September 15, 2023 Carline Cardozo RN Other Provider Active Start: [facility] 2023 End: September 15, 2023 Annalisa Gar MD Other Provider Active Start: September 03, 2023 End: September 15, 2023 Foster Santiago MD Other Provider Active Start: [facility] 2023 End: September 15, 2023 Lulú Garcia APRN Other Provider Active Start: September 03, 2023 End: September 15, 2023 Genesis Andre DO Other Provider Active Start : September 03, 2023 End: September 15, 2023 Bhupinder San MD Other Provider Active Start : September 03, 2023 End: September 15, 2023 Ron Guajardo DO Other Provider Active Start: September 03, 2023 End: September 15, 2023 Gilbert Lanier MD Other Provider Active Start: September 03, 2023 End: September 15, 2023 Peri Grubbs MD Other Provider Active Start : September 03, 2023 End: September 15, 2023 Raymond Hilton MD Other Provider Active Start: [facility] 2023 End: September 15, 2023 Patricia Mayberry APRN Other Provider Active Start: September 03, 2023 End: September 15, 2023 Warren Mera MD Other Provider Active Start: September 03, 2023 End: September 15, 2023 Flavio Woods MD Other Provider Active Start: [facility] 2023 End: September 15, 2023 Saud Zuniga MD Other Provider Active Start: September 03, 2023 End: September 15, 2023 Benjamin Plasencia MD Other Provider Active Start: September 03, 2023 End: September 15, 2023 Roger Carranza DO Other Provider Active Start: September 03, 2023 End: September 15, 2023 Ricardo Souza MD Other Provider Active Start: [facility] 2023 End: September 15, 2023 Allen Andres MD Other Provider Active Start: [facility] 2023 End: September 15, 2023 Lashonda Earl NP-C Other Provider Active St art: September 03, 2023 End: September 15, 2023 Sloane Martin APRN Other Provider Active Star t: September 03, 2023 End: September 15, 2023 Huy Rosenbaum MD Other Provider Active Start: September 03, 2023 End: September 15, 2023 Augie Ontiveros MD Other Provider Active Start: [facility] 2023 End: September 15, 2023 Lc Lima MD Other Provider Active Start: [facility] 2023 End: September 15, 2023 Mati Alberto MD Other Provider Active Star t: September 03, 2023 End: September 15, 2023 Farhan Smith MD Other Provider Active Start: [facility] 2023 End: September 15, 2023 Rakel Regan DO Other Provider Active Start: [facility] 2023 End: September 15, 2023 Silverio Irizarry DO Other Provider Active Start : September 03, 2023 End: September 15, 2023 Jean-Pierre Mariee , Other Provider Active Sta rt: September 03, 2023 End: September 15, 2023 Carol Holland APRN Attending Provider, Other Provider Active Start: September 03, 2023 End: September 15, 2023 Pj Knapp DO Other Provider Active Start: September 03, 2023 End: September 15, 2023 Paula Ramirez MD Other Provider Active Sta rt: September 03, 2023 End: September 15, 2023 Antonella Moore APRN Other Provider Active Start : September 03, 2023 End: September 15, 2023 Chetna Zaragoza APRN Other Provider Active St art: September 03, 2023 End: September 15, 2023 Tushar Cohen MD Other Provider Active Start: [facility] 2023 End: September 15, 2023 Vidal Akins MD Other Provider Active S tart: September 03, 2023 End: September 15, 2023 Aiden Stoll , Other Provider Active Star t: September 03, 2023 End: September 15, 2023 Lucas Carrillo DO Other Provider Active Start: September 03, 2023 End: September 15, 2023 Jordy Lima MD Other Provider Active Start: September 03, 2023 End: September 15, 2023 Martina Thakkar , GLO Other Provider Active Start: [facility] 2023 End: September 15, 2023 Team Status: Active Member Role Status Armand Harrington DO Primary Care Provider Active Start: September 10, 2023 End: September 15, 2023 Elijah Mayers MD Admit Provid er, Attending Provider, Other Provider Active Start: September 10, 2023 End: September 15, 2023 Ana Berry , GLO Other Provider Active Star t: September 10, 2023 End: September 15, 2023 Nuha Mcmahan RN Other Provider Active Start : September 10, 2023 End: September 15, 2023 Anne Ha , GLO Other Provider Active Start: [facility] 2023 End: September 15, 2023 Bernie Bell RN Other Provider Active Star t: September 10, 2023 End: September 15, 2023 Cecelia Villegas RN Other Provider Active Start : September 10, 2023 End: September 15, 2023 Zina Kunz , GLO Other Provider Active Start: [facility] 2023 End: September 15, 2023 Carline Cardozo RN Other Provider Active Start: [facility] 2023 End: September 15, 2023 Annalisa Gar MD Other Provider Active Start: September 10, 2023 End: September 15, 2023 Foster Santiago MD Other Provider Active Start: [facility] 2023 End: September 15, 2023 Lulú Garcia , SPORTS OFFICIAL Other Provider Active Start: September 10, 2023 End: September 15, 2023 Genesis Andre DO Other Provider Active Start : September 10, 2023 End: September 15, 2023 Bhupinder San MD Other Provider Active Start : September 10, 2023 End: September 15, 2023 Ron Guajardo DO Other Provider Active Start: September 10, 2023 End: September 15, 2023 Gilbert Lanier MD Other Provider Active Start: September 10, 2023 End: September 15, 2023 Peri Grubbs MD Other Provider Active Start : September 10, 2023 End: September 15, 2023 Ramyond Hilton MD Other Provider Active Start: [facility] 2023 End: September 15, 2023 Patricia Mayberry APRN Other Provider Active Start: September 10, 2023 End: September 15, 2023 Warren Mera MD Other Provider Active Start: September 10, 2023 End: September 15, 2023 Flavio Woods MD Other Provider Active Start: [facility] 2023 End: September 15, 2023 Saud Zuniga MD Other Provider Active Start: September 10, 2023 End: September 15, 2023 Benjamin Plasencia MD Other Provider Active Start: September 10, 2023 End: September 15, 2023 Roger Carranza DO Other Provider Active Start: September 10, 2023 End: September 15, 2023 Ricardo Souza MD Other Provider Active Start: [facility] 2023 End: September 15, 2023 Allen Andres MD Other Provider Active Start: [facility] 2023 End: September 15, 2023 GERRY Mendoza Other Provider Active St art: September 10, 2023 End: September 15, 2023 Sloane Martin APRN Other Provider Active Star t: September 10, 2023 End: September 15, 2023 Huy Rosenbaum MD Other Provider Active Start: September 10, 2023 End: September 15, 2023 Augie Ontiveros MD Other Provider Active Start: [facility] 2023 End: September 15, 2023 Lc Lima MD Other Provider Active Start: [facility] 2023 End: September 15, 2023 Mati Alberto MD Other Provider Active Star t: September 10, 2023 End: September 15, 2023 Farhan Smith MD Other Provider Active Start: [facility] 2023 End: September 15, 2023 Rakel Regan DO Other Provider Active Start: [facility] 2023 End: September 15, 2023 Silverio Irizarry , Other Provider Active Start : September 10, 2023 End: September 15, 2023 Jean-Pierre Mariee , DO Other Provider Active Sta rt: September 10, 2023 End: September 15, 2023 Carol Holland APRN Other Provider Active Start: September 10, 2023 End: September 15, 2023 Pj Knapp , Other Provider Active Start: September 10, 2023 End: September 15, 2023 Paula Ramirez MD Other Provider Active Sta rt: September 10, 2023 End: September 15, 2023 Antonella Moore APRN Other Provider Active Start : September 10, 2023 End: September 15, 2023 Chetna Zaragoza APRN Other Provider Active St art: September 10, 2023 End: September 15, 2023 Tushar Cohen MD Other Provider Active Start: [facility] 2023 End: September 15, 2023 Vidal Akins MD Other Provider Active S tart: September 10, 2023 End: September 15, 2023 Aiden Stoll , Other Provider Active Star t: September 10, 2023 End: September 15, 2023 Lucas Carrillo DO Other Provider Active Start: September 10, 2023 End: September 15, 2023 Jordy Lima MD Other Provider Active Start: September 10, 2023 End: September 15, 2023 Martina Thakkar RN Other Provider Active Start: [facility] 2023 End: September 15, 2023 Team Status: Active Member Role Status Armand Harrington DO Primary Care Provider Active Start: September 11, 2023 End: September 15, 2023 Elijah Mayers MD Admit Provid er, Other Provider Active Start: September 11, 2023 End: September 15, 2023 Ana Berry RN Other Provider Active Star t: September 11, 2023 End: September 15, 2023 Nuha Mcmahan , GLO Other Provider Active Start : September 11, 2023 End: September 15, 2023 Anne Ha RN Other Provider Active Start: [facility] 2023 End: September 15, 2023 Bernie Bell , GLO Other Provider Active Star t: September 11, 2023 End: September 15, 2023 Cecelia Villegas RN Other Provider Active Start : September 11, 2023 End: September 15, 2023 Zina Kunz RN Other Provider Active Start: [facility] 2023 End: September 15, 2023 Carline Cardozo RN Other Provider Active Start: [facility] 2023 End: September 15, 2023 Annalisa Gar MD Other Provider Active Start: September 11, 2023 End: September 15, 2023 Foster Santiago MD Other Provider Active Start: [facility] 2023 End: September 15, 2023 Lulú Garcia APRN Other Provider Active Start: September 11, 2023 End: September 15, 2023 Genesis Andre DO Other Provider Active Start : September 11, 2023 End: September 15, 2023 Bhupinder San MD Other Provider Active Start : September 11, 2023 End: September 15, 2023 Ron Guajardo DO Other Provider Active Start: September 11, 2023 End: September 15, 2023 Gilbert Lanier MD Other Provider Active Start: September 11, 2023 End: September 15, 2023 Peri Grubbs MD Other Provider Active Start : September 11, 2023 End: September 15, 2023 Raymond Hilton MD Other Provider Active Start: [facility] 2023 End: September 15, 2023 Patricia Mayberry APRN Other Provider Active Start: September 11, 2023 End: September 15, 2023 Warren Mera MD Other Provider Active Start: September 11, 2023 End: September 15, 2023 Flavio Woods MD Other Provider Active Start: [facility] 2023 End: September 15, 2023 Saud Zuniga MD Other Provider Active Start: September 11, 2023 End: September 15, 2023 Benjamin Plasencia MD Other Provider Active Start: September 11, 2023 End: September 15, 2023 Roger Carranza DO Other Provider Active Start: September 11, 2023 End: September 15, 2023 Ricardo Souza MD Other Provider Active Start: [facility] 2023 End: September 15, 2023 Allen Andres MD Other Provider Active Start: [facility] 2023 End: September 15, 2023 Lashonda Earl NP-C Other Provider Active St art: September 11, 2023 End: September 15, 2023 Sloane Martin APRN Other Provider Active Star t: September 11, 2023 End: September 15, 2023 Huy Rosenbaum MD Other Provider Active Start: September 11, 2023 End: September 15, 2023 Augie Ontiveros MD Other Provider Active Start: [facility] 2023 End: September 15, 2023 Lc Lima MD Other Provider Active Start: [facility] 2023 End: September 15, 2023 Mati Alberto MD Other Provider Active Star t: September 11, 2023 End: September 15, 2023 Farhan Smith MD Other Provider Active Start: [facility] 2023 End: September 15, 2023 Rakel Regan DO Other Provider Active Start: [facility] 2023 End: September 15, 2023 Silverio Irizarry DO Other Provider Active Start : September 11, 2023 End: September 15, 2023 Jean-Pierre Mariee DO Other Provider Active Sta rt: September 11, 2023 End: September 15, 2023 Carol Holland APRN Other Provider Active Start: September 11, 2023 End: September 15, 2023 Pj Knapp DO Other Provider Active Start: September 11, 2023 End: September 15, 2023 Paula Ramirez MD Other Provider Active Sta rt: September 11, 2023 End: September 15, 2023 Antonella Moore APRN Other Provider Active Start : September 11, 2023 End: September 15, 2023 Chetna Zaragoza APRN Other Provider Active St art: September 11, 2023 End: September 15, 2023 Tushar Cohen MD Other Provider Active Start: [facility] 2023 End: September 15, 2023 Vidal Akins MD Other Provider Active S tart: September 11, 2023 End: September 15, 2023 Aiden Stoll DO Other Provider Active Star t: September 11, 2023 End: September 15, 2023 Lucas Carrillo DO Other Provider Active Start: September 11, 2023 End: September 15, 2023 Jordy Lima MD Other Provider Active Start: September 11, 2023 End: September 15, 2023 Martina Thakkar RN Other Provider Active Start: [facility] 2023 End: September 15, 2023 Magno Pichardo II, MD Attending Provider Active Start: September 11, 2023 End: September 15, 2023 Team Status: Active Member Role Status Armand Harrington DO Primary Care Provider Active Start: September 13, 2023 End: September 15, 2023 Elijah Mayers MD Admit Provid er, Other Provider Active Start: September 13, 2023 End: September 15, 2023 Ana Berry RN Other Provider Active Star t: September 13, 2023 End: September 15, 2023 Nuha Mcmahan , GLO Other Provider Active Start : September 13, 2023 End: September 15, 2023 Anne Ha , GLO Other Provider Active Start: [facility] 2023 End: September 15, 2023 Bernie Bell , GLO Other Provider Active Star t: September 13, 2023 End: September 15, 2023 Cecelia Villegas , GLO Other Provider Active Start : September 13, 2023 End: September 15, 2023 Zina Kunz , GLO Other Provider Active Start: [facility] 2023 End: September 15, 2023 Carline Cardozo , GLO Other Provider Active Start: [facility] 2023 End: September 15, 2023 Annalisa Gar MD Other Provider Active Start: September 13, 2023 End: September 15, 2023 Foster Santiago MD Other Provider Active Start: [facility] 2023 End: September 15, 2023 Lulú Garcia APRN Other Provider Active Start: September 13, 2023 End: September 15, 2023 Genesis Andre DO Other Provider Active Start : September 13, 2023 End: September 15, 2023 Bhupinder San MD Other Provider Active Start : September 13, 2023 End: September 15, 2023 Ron Guajardo DO Other Provider Active Start: September 13, 2023 End: September 15, 2023 Gilbert Lanier MD Other Provider Active Start: September 13, 2023 End: September 15, 2023 Peri Grubbs MD Other Provider Active Start : September 13, 2023 End: September 15, 2023 Raymond Hilton MD Other Provider Active Start: [facility] 2023 End: September 15, 2023 Patricia Mayberry APRN Attending María packer, Other Provider Active Start: September 13, 2023 End: September 15, 2023 Warren Mera MD Other Provider Active Start: September 13, 2023 End: September 15, 2023 Flavio Woods MD Other Provider Active Start: [facility] 2023 End: September 15, 2023 Saud Zuniga MD Other Provider Active Start: September 13, 2023 End: September 15, 2023 Benjamin Plasencia MD Other Provider Active Start: September 13, 2023 End: September 15, 2023 Roger Carranza DO Other Provider Active Start: September 13, 2023 End: September 15, 2023 Ricardo Souza MD Other Provider Active Start: [facility] 2023 End: September 15, 2023 Allen Andres MD Other Provider Active Start: [facility] 2023 End: September 15, 2023 GERRY Mendoza Other Provider Active St art: September 13, 2023 End: September 15, 2023 Sloane Martin APRN Other Provider Active Star t: September 13, 2023 End: September 15, 2023 Huy Rosenbaum MD Other Provider Active Start: September 13, 2023 End: September 15, 2023 Augie Ontiveros MD Other Provider Active Start: [facility] 2023 End: September 15, 2023 Lc Lima MD Other Provider Active Start: [facility] 2023 End: September 15, 2023 Mati Alberto MD Other Provider Active Star t: September 13, 2023 End: September 15, 2023 Farhan Smith MD Other Provider Active Start: [facility] 2023 End: September 15, 2023 Rakel Reagn , Other Provider Active Start: [facility] 2023 End: September 15, 2023 Silverio Irizarry , DO Other Provider Active Start : September 13, 2023 End: September 15, 2023 Jean-Pierre Mariee , DO Other Provider Active Sta rt: September 13, 2023 End: September 15, 2023 Carol Holland APRN Other Provider Active Start: September 13, 2023 End: September 15, 2023 Pj Knapp , Other Provider Active Start: September 13, 2023 End: September 15, 2023 Paula Ramirez MD Other Provider Active Sta rt: September 13, 2023 End: September 15, 2023 Antonella Moore APRN Other Provider Active Start : September 13, 2023 End: September 15, 2023 Chetna Zaragoza APRN Other Provider Active St art: September 13, 2023 End: September 15, 2023 Tushar Cohen MD Other Provider Active Start: [facility] 2023 End: September 15, 2023 Vidal Akins MD Other Provider Active S tart: September 13, 2023 End: September 15, 2023 Aiden Stoll , Other Provider Active Star t: September 13, 2023 End: September 15, 2023 Jordy Lima MD Other Provider Active Start: September 13, 2023 End: September 15, 2023 Martina Thakkar RN Other Provider Active Start: [facility] 2023 End: September 15, 2023 Team Status: Active Member Role Status Dates Odell Harrington DO Primary Care Provider Active Start: September 17, 2023 ARMANI Beebe Attending Provider Active St art: September 17, 2023 Team Status: Inactive Member Role Status Dates Odell Harrington DO Primary Care Provide r, Attending Provider Active Start: September 19, 2023 End: September 19, 2023 Team Status: Inactive Member Role Status Dates Odell Harrington DO Primary Care Provider Active Start: October 08, 2023 End: October 08, 2023 Magno Pichardo II, MD Attending Provider Active Start: October 08, 2023 End: October 08, 2023 Goals (unrecognized section and content) Goals may be documented in a n alternate section FOR RECORDS PERTAINING TO PATIENTS WHO ARE [...] BE BASED ON THE PRIMARY CLINICAL RECORDS. [facility] [employer] provides no warranty or guarantee of the accuracy or completeness of information in this document.
[2023-11-08 11:53] LABS: Chol HDL Ratio 2.2; Cholesterol 184 mg/dL (<=200); HDL Cholesterol 85 mg/dL (40-60); Triglycerides 96 mg/dL (<=150); VLDL CHOLESTEROL 19.2 mg/dL
== END 2023-11-08 10:22 | disposition home or self-care (01) ==
PROVIDERS: PCP Internal Medicine; Visit Provider Nurse Practitioner Family
DX: E78.2 Mixed hyperlipidemia (principal)
CPT/HCPCS: 36415; 80061

== ENCOUNTER 2023-12-02 13:46 | Outpatient (RCR) | payer MEDICARE, SELFPAY | END 2023-12-25 16:45 | disposition home or self-care (01) | LOC: PT 13:46 | PROVIDERS: PCP Internal Medicine; Visit Provider Orthopaedic Surgery | DX: Z47.1 Aftercare following joint replacement surgery (principal); Z96.651 Presence of right artificial knee joint; M25.562 Pain in left knee | CPT/HCPCS: 97110; 97162 ==

== ENCOUNTER 2023-12-20 08:42 | Outpatient (OUT) | payer MEDICARE, SELFPAY ==
--- OUTSIDE RECORDS SUMMARY | 2023-12-20 08:46 | XMS_ITS | CCD ---
Author Organization [facility]iniSyhi Care Team Providers Care Spin Table Operator Name Role Phone Odell Harrington Unavailable JUANY, DR RODRIGUEZ Admitting Unavailable BALL, DR RODRIGUEZ Attending Unavailable BALL, DR RODRIGUEZ Primary Care Unavailable LAKSHMIPATHY ., TANG Consulting Helen vailable BALL, DR RODRIGUEZ Primary Care Unavailable LAKSHMIPATHY ., NARJULITA Admitting Helen vailable LAKSHMIPATHY ., TANG Attending Helen vailable LAKSHMIPATHY ., TANG Admitting Helen vailable BALL, DR RODRIGUEZ Primary Care Unavailable LAKSHMIPATHY ., TANG Attending Helen vailable LAKSHMIPATHY ., TANG Consulting Helen vailable BALL, DR RODRIGUEZ Primary Care Unavailable HALKER ., RAFAELA Admitting Unavailable HALKER ., RAFAELA Attending Unavailable MOUKARBEL, JEREMIAS Attending Unavailable MOUKARBEL, JEREMIAS Consulting Unavailable MOUKARBELJEREMIAS Admitting Unavailable BALL, DR RODRIGUEZ Primary Care Unavailable BALL, DR RODRIGUEZ Admitting Unavailable BALL, DR RODRIGUEZ Attending Unavailable BALL, DR RODRIGUEZ Consulting Unavailable BALL, DR RODRIGUEZ Primary Care Unavailable ZIEBER, DR TARIK Gee Consulting Unavailable BALL, DR RODRIGUEZ Admitting Unavailable BALL, DR RODRIGUEZ Attending Unavailable BALL, DR RODRIGUEZ Consulting Unavailable BALL, DR RODRIGUEZ Primary Care Unavailable SELDOVIA, DR JOELLEN Ontiveros Consulting Unavailable MOUKARBEL, JEREMIAS Consulting Unavailable Magno Pichardo II Unavailable DO Odell Harrington Primary Care Provider [phone] MD Magno Pichardo II Attending Provider [phone] DO Odell Harrington Primary Care Provider MD Magno Pichardo II Attending Provider MD Elijah Mayers Admit Provider [phone] MD Elijah Mayers Attending Provider [phone] GLO Berry Other Provider Unavailable GLO Mcmahan Other Provider Unavailable Leland RN Anne Other Provider Unavailable GLO Bell Other Provider Unavailable GLO Villegas Other Provider Unavailable GLO Kunz Other Provider Unavailable GLO Cardozo Other Provider Unavailable MD Annalisa Gar Other Provider MD Foster Sanitago Other Provider Unavailable Dials, BATHHOUSE ATTENDANT Lulú M Other Provider [phone] DO Genesis Andre Other Provider MD Bhupinder San Other Provider DO Ron Guajardo Other Provider [phone] MD Gilbert Lanier Other Provider [phone] MD Peri Grubbs Other Provider MD Raymond Hilton Other Provider Unavailable Jefe BATHHOUSE ATTENDANTPepe Gomez Other Provider MD Warren Mera Other Provider [phone] MD Flavio Woods Other Provider MD Saud Zuniga Other Provider MD Benjamin Plasencia Other Provider DO Roger Carranza Other Provider MD Ricardo Souza Other Provider MD Allen Andres Other Provider GERRY Earl Other Provider Born, BATHHOUSE ATTENDANTPepe Castañeda Other Provider Unavailable MD Huy Rosenbaum Other Provider MD Augie Ontiveros Other Provider MD Lc Lima Other Provider MD Mati Alberto Other Provider Unavailable MD Farhan Smith Other Provider DO Rakel Regan Other Provider DO Silverio Irizarry R Other Provider DO Jean-Pierre Mariee Other Provider CHASITY Holland Other Provider DO Pj Knapp Other Provider [phone] MD Paula Ramirez Other Provider CHASITY Moore Other Provider CHASITY Zaragoza Other Provider [phone] MD Tushar Cohen Other Provider MD Vidal Akins Other Provider DO Aiden Stoll Other Provider [phone] MD Jordy Lima P Other Provider GLO Thakkar Other Provider Unavailable Marino II, Magno M Admitting Unavailabl e Goshen II, Magno M Attending Unavailabl e [facility] Unavailable Goshen II, Magno M Admitting Unavailabl e Goshen II, Magno M Attending Unavailabl e [facility] Primary Care Unavailable Goshen II, Magno M Admitting Unavailabl e Goshen II, Magno M Attending Unavailabl e [facility] Care Unavailable Goshen II, Magno M Admitting Unavailabl e Goshen II, Magno M Attending Unavailabl e [facility] Primary Care Unavailable Goshen II, Magno M Admitting Unavailabl e Ana Berry Consulting Unavailable Goshen II, Magno M Attending Unavailabl e [facility] Primary Care Unavailable Nuha Mcmahan Consulting Unavailable Anne Ha Consulting Unavailable Bernie Bell Consulting Unavailable Cecelia Villegas Consulting Unavailable Zina Kunz Consulting Unavailable Carline Cardozo Consulting Unavailable Annalisa Gar Consulting Unavailable Foster Santiago Consulting Unavailable Lulú Garcia Consulting Unavailable Genesis Andre Consulting Unavailable Bhupinder San Consulting Unavailable Ron Guajardo Consulting Unavailabl Gilbert Perdue Consulting Unavailable Humera Peri Consulting Unavailable Raymond Hilton Consulting Unavailable Patricia Mayberry Consulting Unavailalcides calvert Wasramos, Marwan Consulting Unavailable Zraik, Flavio Consulting Unavailable Nadia, Saud Consulting Unavailable Luis Angel, Courtneywan Consulting Unavailable Roger Carranza Consulting Unavailable Ricardo Souza Consulting Unavailable Allen Andres Consulting Unavailable Lashonda Earl Consulting Unavailable Sloane Martin Consulting Unavailable DoFito almeidaderdesean Calvert Consulting Unavailab jack Ontiveros, Augie Consulting Unavailable Lc Lima Consulting Unavailable Mati Alberto Consulting Unavailable Farhan Smith Consulting Unavailable Rakel Regan Consulting Unavailable Silverio Irizarry Consulting Unavailable Jean-Pierre Mariee Consulting Unavailable Carol Holland Consulting Unavailable Pj Knapp Consulting Unavailable NaderomaPaula gee Consulting Unavailable Antonella Moore Consulting Unavailable Chetna Zaragoza Consulting Unavailable Alayamileth Alamargarita Consulting Unavailable Vidal Akins Consulting Unavailable Aiden Stoll Consulting Unavailable Lucas Carrillo Consulting Unavailable Jordy Lima Consulting Unavailable Martina Thakkar Consulting Unavailable Dilip Laird Consulting Unavailable Elijah Mayers Attending UnavailAna Jensen Consulting Unavailable Elijah Mayers Admitting UnavailOdell Mello Primary Care Unavailable Nuha Mcmahan Consulting Unavailable Anne Ha Consulting Unavailable Bernie Bell Consulting Unavailable Cecelia Villegas Consulting Unavailable Zina Kunz Consulting Unavailable Carline Cardozo Consulting Unavailable Annalisa Gar Consulting Unavailable Foster Santiago Consulting Unavailable Lulú Garcia Consulting Unavailable Genesis Andre Consulting Unavailable Jaswinder, Bhupinder Consulting Unavailable Ron Guajardo Consulting UnavailGilbert Redman Consulting Unavailable Semaskiene, Peri Consulting Unavailable Yobani, Raymond Consulting Unavailable Patricia Mayberry Consulting Unavailalcides e Samaria, Marwan Consulting Unavailable Chuck, Flavio Consulting Unavailable Nadia, Saud Consulting Unavailable Luis Angel, Safwan Consulting Unavailable Roger Carranza Consulting Unavailable Harley, Anitraas Consulting Unavailable Allen Andres Consulting Unavailable Lashonda Earl Consulting Unavailable Sloane Martin Consulting Unavailable Doamelarryor, Huy E Consulting Unavailab Augie Hong Consulting Unavailable Clarence, Lc Consulting Unavailable AlmoselMati petty Consulting Unavailable Farhan Smith Consulting Unavailable Rakel Regan Unavailable Silverio Irizarry Consulting Unavailable MiniJean-Pierre hernández Consulting Unavailable ObikaCarol Consulting Unavailable Pj Knapp Consulting Unavailable Daromar, Paula Castañeda Consulting Unavailable Antonella Moore Consulting Unavailable Chetna Zaragoza Consulting Unavailable Alahmad, Alamargarita Consulting Unavailable Vidal Akins Consulting Unavailable Aiden Stoll Consulting Unavailable Jordy Lima P Consulting Unavailable Martina Thakkar Consulting Unavailable Odell Harrington Primary Care Unavailable Magno Pichardo II Attending Unavailalcides Pichardo II, Magno Castañeda Admitting Unavailalcides Pichardo II, Magno Castañeda Attending Unavailalcides Pichardo II, Magno Castañeda Admitting Unavailalcides e Odell Harrington Primary Care Unavailable Marino GOLD, Magno Castañeda Attending Unavailalcides Pichardo II, Magno Castañeda Admitting Unavailabl e DO Odell Harrington Primary Care Provider MD Magno Pichardo II Attending Provider ODILIA MCCALLUM Attending Unavailable JEREMIAS MCGUIRE Attending Unavailable NBA MARCELO Attending Unavailable NBA MARCELO Referring Unavailable NBA MARCELO Referring Unavailable ANNABELLA DAWSON Attending Unavailable JEREMIAS HENRY Attending Unavailable MD Magno Pichardo II Attending Provider [phone] Allergies Allergy Classification Reported Allergen(s) Allergy Type Date of Onset Reaction(s) Facility (17 sources) Acetaminophen / HYDROcodone; Translations: [Vicodin] Drug Allergy 03-04-20 12 Unknown [facility] Repository (15 sources) Acetaminophen / oxyCODONE Drug Allergy Unknown [facility] Other (15 sources) Ciprofloxacin Drug Allergy Unknown [facility] Other (16 sources) Rocuronium; Translations: [ROCURONIUM] Drug Allergy 06-17-20 14 Unknown [facility] Repository (15 sources) Sulfamethoxazole / Trimethoprim Drug Allergy Unknown [facility] Other (2 sources) Acetaminophen / oxyCODONE Drug Allergy 03-04-[address] [facility] Repository (2 sources) Rocuronium Drug Allergy 03-17-[address] [facility] Repository (12 sources) Vicodin *ANALGESICS - OPIOID* Propensity to adverse reactions Unknown [facility] Other (6 sources) Acetaminophen Drug Allergy 08-20-[address] [facility] (6 sources) HYDROcodone Drug Allergy 08-20-19 [address] [facility] (6 sources) oxyCODONE Drug Allergy 08-20-19 [address] [facility] (6 sources) Rocuronium Drug Allergy 08-20-19 [address] [facility] (6 sources) Sulfamethoxazole Drug Allergy 08-20-19 24 Unknown Reaction [facility] (6 sources) Trimethoprim Drug Allergy 08-20-19 24 Unknown Reaction [facility] (1 source) Acetaminophen / HYDROcodone; Translations: [HYDROCODONE-ACETAM INOPHEN] Drug Allergy 06-17-20 14 [facility] Repository (1 source) Acetaminophen / oxyCODONE; Translations: [OXYCODONE-ACETAMIN OPHEN] Drug Allergy 06-17-20 14 [facility] Repository Medications Current Medications Medication Drug [...] 2023 3:01pm take 1 capsule by mo uth every six hours Acetaminophen 500 MG 1 [...] tablet by christopher th every twenty-four hours Atorvastatin Calcium 20 MG [...] 1 tablet Orally Once a day Active ciclopirox 0.0077 mg/mg topical gel (1 source) Start: 11-19-2023 Ciclopirox Active TOPICAL November 19, 2023 12:00am docusate sodium 100 mg oral capsule (2 sources) take 1 capsule by mouth every twenty-four hours Stool Softener 100 MG 1 capsule as needed Orally Once a day Active DULoxetine 30 mg delayed release oral capsule (2 sources) Serotonin and Norepinephrine Reuptake Inhibitor take 1 capsule by mouth every twenty-four hours DULoxetine HCl 30 MG 1 capsule Orally Once a day Active ezetimibe 10 mg oral tablet (1 source) Dietary Cholesterol Absorption Inhibitor Start: 11-19-2023 take 1 tablet by mouth once daily Ezetimibe (Zetia) 10 mg tablet Active 10 MG PO Daily November 19, 2023 12:00am fluocinonide 0.5 mg/ml topical solution (1 source) Corticosteroid Start: 11-19-2023 Fluocinonide Active TOPICAL November 19, 2023 12:00am Losartan (20 sources) Angiotensin 2 Receptor Alexandre Start: 11-19-2023 Losartan Active MG PO November 19, 2023 12:00am Start: 08-20-2023 End: 09-19-2023 take 25 mg by mouth once daily in the morning Losartan Discontinued 25 MG PO Every morning September 15, 2023 9:23am September 19, 2023 11:44am take 1 tablet by christopher every twenty-four hours Losartan Potassium 25 MG 1 tablet Orally Once a day Active 24 hr metoprolol succinate 25 mg extended release oral tablet (20 sources) beta-Adrenergic Alexandre Start: 08-20-2023 End: 09-15-2023 take 25 mg by mouth once daily in the evening Metoprolol Succinate Active 25 MG PO Every evening September 15, 2023 9:23am take 0.5 tablet by mouth once da justo Metoprolol Succinate ER 50 MG 1/2 tablet Orally Once a day Active take 1 tablet by christopher every twenty-four hours Metoprolol Succinate ER 50 MG 1 tablet Orally Once a day Active mupirocin 0.02 mg/mg topical ointment (3 sources) RNA Synthetase Inhibitor Antibacterial Start: 06-06-2023 Mupirocin 2 % 1 application Externally Twice a day for 10 days May, Active Zy-Ppw-Opkcc-Calc ium Carb-K1 (Women's 50 Plus Multivitamin) 400 mcg-500 mg calcium-20 mcg tablet (6 sources) Start: 08-20-2023 take 1 tablet by mouth once daily Jq-Gra-Rusie-Calci um Carb-K1 (Women's 50 Plus Multivitamin) 400 mcg-500 mg calcium-20 mcg tablet Active 1 TAB PO Daily August 20, 2023 1:00am Start: 08-20-2023 take 1 tablet by christopher th once daily Ro-Naz-Olhav-Calcium Carb-K1 (Women's 50 Plus Multivitamin) 400 mcg-500 [...] omeprazole 20 mg delayed release oral capsule (8 sources) Proton Pump Inhibitor Start: 09-19-19 take 20 mg by mouth once daily Omeprazole Active 20 MG PO Daily September 19, 2023 12:00am Start: 08-20-2023 End: 08-25-2023 take 20 mg by mouth once daily in the morning Omeprazole Discontinued 20 MG PO Every morning August 20, 2023 1:00am August 25, 2023 11:56am predniSONE 10 mg oral tablet (12 sources) Start: 09-15-2023 take 30 mg by mouth once daily Prednisone Active 30 MG PO Daily September 15, 2023 9:23am Start: 08-20-2023 End: 09-15-2023 take 10 mg by mouth once daily Prednisone Discontinued 10 MG PO Daily September 02, 2023 1:00am September 15, 2023 9:23am vitamin e 180 mg oral capsule (6 sources) Start: 08-20-2023 take 268 mg by mouth once daily Vitamin E Active 268 MG PO Daily August 20, 2023 1:00am Vitamin E 100 UNIT (15 sources) Vitamin E 100 UNIT as directed Orally Active zolpidem tartrate 10 mg oral tablet (20 sources) gamma-Aminobutyr ic Acid-ergic Agonist Start: 08-20-2023 End: 10-27-2023 take 10 mg by mouth once daily at bedtime Zolpidem Active 10 MG PO Daily at bedtime October 27, 2023 10:10pm Start: 04-16-2023 take 1 tablet by christopher th at bedtime as needed Zolpidem Tartrate 10 MG TAKE 1 TABLET BY MOUTH AT BEDTIME NEEDED FOR INSOMNIA for 90 Mar, Active Start: 10-01-2022 Zolpidem Tartr ate 10 MG TAKE 1 TABLET BY MOTH AT BEDTIME NEEDED FOR INSOMNIA for Sep, Active take 1 tablet by christopher th every twenty-four hours Zolpidem Tartrate 10 MG 1 tablet at bedtime as needed Orally Once a day Active Completed/Discontinued Medications Medication Drug Class(es) Dates Sig (Normalized) Sig (Original) ALPRAZolam 0.25 mg oral tablet (20 sources) Benzodiazepine Start: 09-15-2023 End: 09-19-2023 take 0.25 mg by mouth every six hours Alprazolam Discontinued 0.25 MG PO Q6H 0 September 15, 2023 12:00am September 19, 2023 11:43am Start: 08-25-2023 End: 09-15-2023 take 0.25 mg by mouth twice daily Alprazolam Discontinued 0.25 MG PO Twice daily August 25, 2023 1:00am September 15, 2023 9:24am take 1 tablet by christopher every twelve hours ALPRAZolam 0.25 MG 1 tablet Orally Twice a day prn Active ascorbic acid 1000 mg extended release oral tablet (6 sources) Vitamin C Start: 08-20-2023 End: 08-20-2023 [...] 15, 2023 9:24am take 1 tablet by [facility] every twenty-four hours Aspirin 81 81 MG 1 tablet Orally Once a day Active take 1 tablet by christopher once daily Aspirin 81 81 MG 1 tablet Orally Once a day Active cefadroxil 500 mg oral capsule (9 sources) Cephalosporin Antibacterial Start: 09-02-2023 End: 09-15-2023 [...] BED diclofenac sodium 0.01 mg/mg topical gel (16 sources) Nonsteroidal Anti-inflammatory Drug Start: 08-25-2023 End: 09-19-2023 apply 2 g topically four times daily Diclofenac Sodium Discontinued 2 GM TOPICAL Four times daily 100 September 15, 2023 9:23am September 19, 2023 11:43am apply to single elbow, wrist or hand; for hand includes palm/fingers/back of hand Voltaren 1 % as directed Externally Active diphenhydrAMINE hydrochloride 25 mg oral capsule (6 sources) Histamine-1 Receptor Antagonist Start: 08-20-2023 End: 08-25-2023 take 1 capsule by mouth once daily at bedtime Diphenhydramine Hcl (Allergy (Diphenhydramine)) 25 mg capsule Discontinued 25 MG PO Daily at bedtime August 20, 2023 1:00am August 25, 2023 11:55am docusate sodium 50 mg / sennosides, mcfp 8.6 mg oral tablet (9 sources) Start: 08-20-2023 End: 09-15-2023 take 2 tablets by mouth once daily Sennosides-Docusate Sodium Discontinued 2 TAB PO Daily 0 September 02, 2023 1:00am September 15, 2023 9:24am loratadine 10 mg oral tablet (18 sources) Start: 09-15-2023 End: 09-19-2023 take 10 mg by mouth once daily in the morning Loratadine Discontinued 10 MG PO Every morning 30 September 15, 2023 12:00am September 19, 2023 11:43am take 1 tablet by christopher every twenty-four hours Claritin 10 MG 1 tablet Orally Once a da y Not-Taking/PRN ondansetron 4 mg oral tablet (6 sources) Serotonin-3 Receptor Antagonist Start: 08-20-2023 End: 09-15-2023 take 4 mg by mouth every eight hours Ondansetron Hcl Discontinued 4 MG PO Q8H August 20, 2023 1:00am September 15, 2023 9:24am DOT NOT RECONCILE UNTIL DOS:09/01/2023 MED TO BED oxyCODONE hydrochloride 5 mg oral tablet (12 sources) Opioid Agonist Start: 08-20-2023 End: 09-19-2023 take 5 mg by mouth every four hours Oxycodone Discontinued 5 MG PO Q4H 35 7 September 15, 2023 September 19, 2023 11:44am pantoprazole 40 mg delayed release oral tablet (3 sources) Proton Pump Inhibitor Start: 09-15-2023 End: 09-19-2023 take 40 mg by mouth once daily Pantoprazole Discontinued 40 MG PO Daily 30 30 September 15, 2023 12:00am September 19, 2023 11:44am polyethylene glycol 3350 99997 mg powder for oral solution (6 sources) Osmotic Laxative Start: 08-20-2023 End: 09-15-2023 Polyethylene Glycol 3350 (Miralax) 17 gram/dose powder Discontinued 17 GM PO daily 7 August 20, 2023 1:00am September 15, 2023 9:24am 1 packed mixed with 8 ounces of fluid. DOT NOT RECONCILE UNTIL DOS:09/01/2023 MED TO BED propylene glycol 6 mg/ml ophthalmic solution (6 sources) Start: 08-20-2023 End: 08-25-2023 Propylene Glycol (Systane Balance) 0.6 % drops Discontinued 1 DROPS EYE-BOTH Daily August 20, 2023 1:00am August 25, 2023 11:56am traMADol hydrochloride 50 mg oral tablet (20 sources) Opioid Agonist Start: 08-20-2023 End: 09-15-2023 take 50 mg by mouth every six hours Tramadol Discontinued 50 MG PO Q6H 0 September 02, 2023 1:00am September 15, 2023 9:24am Start: 05-20-2023 take 1 tablet by [facility] twice daily as needed for pain traMADol [...] other specified organisms] Episodic Acute posthemorrhagic anemia (2 sources) Acute posthemorrhagic anemia; Translations: [Acute posthemorrhagic anemia] 09-19-2023 Episodic Administrative/socia l admission (5 sources) Other reduced mobility; Translations: [Impaired mobility [...] Coronary arteriosclerosis; Translations: [Atherosclerotic heart disease of [place] coronary artery without angina pectoris] Onset: 2 [...] [Acute vaginitis] Episodic Miscellaneous mental health disorders (16 sources) Primary insomnia; Translations: [Primary insomnia] 10-27-2023 Chronic Nonspecific chest pain (5 sources) Precordial [...] pathological fracture] Onset: 4 Chronic Other aftercare (2 sources) Patient encounter status; Translations: [Aftercare following joint replacement surgery] 10-07-2023 Chronic Other aftercare (4 sources) Aftercare following joint replacement surgery; Translations: [Aftercare following joint replacement] Onset: 4 10-08-2023 Chronic Other circulatory disease (3 sources) Other specified symptoms and signs involving the circulatory and respiratory systems Episodic Other connective tissue disease (10 sources) History of left total knee replacement; Translations: [Presence of left artificial knee joint] Chronic Other connective tissue disease (2 sources) Presence of left artificial knee joint Chronic Other connective tissue disease (3 sources) History of total knee arthroplasty; Translations: [...] Onset: 3 Chronic Other nervous system disorders (3 sources) Postoperative pain ; Translations: [Other acute postprocedural pain] 09-03-2023 Episodic Other nervous system disorders (2 sources) Other acute postprocedural pain; Translations: [Other acute postoperative pain] Onset: 4 09-15-2023 Episodic Other non-traumatic joint disorders (3 sources) Pain in left knee; Translations: [Pain in left knee] Onset: 4 Episodic Other nutritional; endocrine; and metabolic disorders (15 sources) Body mass index 30+ - obesity; Translations: [Obesity, unspecified] Chronic Other nutritional; endocrine; and metabolic disorders (1 source) Obesity, unspecified Chronic Other skin disorders (1 source) Follicular disorder, unspecified Episodic Other upper respiratory disease (1 source) Dysphonia Episodic Other upper respiratory infections (20 sources) Acute recurrent maxillary sinusitis; Translations: [Acute [...] Esophageal disorders (1 source) Esophageal disorders Other aftercare (4 sources) Other senior care (current) drug therapy; Translations: [OTH ANIMAL KEEPER HEAD CURRENT DRUG THERAPY] Onset: 11-06-2022 Episodic Other fractures (1 source) Collapsed vertebra, not elsewhere classified, lumbar region, initial encounter for fracture; Translations: [COLLAPSED VERT NEC LUMBAR INIT ENC] Onset: 01-31-2022 Episodic Other lower respiratory disease (4 sources) Dyspnea, unspecified; Translations: [DYSPNEA UNSPECIFIED] Onset: 05-08-2022 Episodic Results Test Name Value Interpretation Reference Range Facility XR knee RT 2Von 11-19-2023 XR knee RT [address]V [facility] [address] [place] [address] XRay Report Signed Patient: Ashley Brown MR#: [id number] 1 : 1940 Acct:[id number] Age/Sex: 82 / F ADM Date: 11/19/23 Loc: [facility] Room: Type: [facility] Attending Dr: Magno Pichardo II, MD Copies to: Magno Pichardo MD Ordering Provider: Magno Pichardo MD Date of Service: 11/19/23 XR/XR tibia fibula RT 2V*: Z47.1 - Aftercare following joint replacement surgery ([id number]) XR/XR knee RT 2V: Z47.1 - Aftercare following joint replacement surgery ([id number]) XR/XR knee LT 3V - NOT FOR ER USE: M25.562 - Pain in left knee ([id number]) XR/XR femur RT 2V*: Z47.1 - Aftercare following joint replacement surgery CLINICAL DATA: Follow-up right knee replacement. Increasing left knee pain. No injury. RIGHT FEMUR AND TIB-FIB - one view COMPARISON: 08/20/2023 and right knee 09/01/2023 Standing AP view of both lower extremities from the top of the iliac crest down to the ankle was obtained using a long cassette. There are bilateral knee prostheses. The left has longer stems. The hardware appears intact and unchanged from the prior. There are no developing femoral fractures. The hip joint spaces are maintained and mild marginal spurring is again seen. No soft tissue swelling is present. Hemostasis clips are noted along the medial aspect of the right lower thigh and upper calf. The tibia and fibula are intact. There is no dislocation at the ankles. No soft tissue swelling is noted. XR/XR femur RT 2V* IMPRESSION: STABLE KNEE REPLACEMENTS. RIGHT KNEE - 1view COMPARISON: 10/08/2023 Weightbearing lateral view was obtained. A knee prosthesis is present. Components are unchanged in appearance from the prior. The bony ossicles projecting superior to the patella is unchanged. There is no acute fracture or suspected dislocation. There is a trace amount of joint fluid. Hemostasis clips are present posteriorly. IMPRESSION: STABLE APPEARANCE OF THE KNEE PROSTHESIS. LEFT KNEE - 3 views COMPARISON: 05/21/2023 Weightbearing AP to include both knees, left lateral and sunrise view were obtained. There is a left knee prosthesis which is unchanged in appearance from the comparison. The right knee replacement, as visualized is also unremarkable. No acute fractures or dislocation are noted. No patellar subluxation is seen. There is no significant knee effusion or soft tissue swelling. IMPRESSION: STABLE LEFT KNEE REPLACEMENT. Impression dictated by: Jane Shepherd M.D.11/19/2023 3:36 PM Dictation Location: [place] [address] Transcribed By: [facility] 11/19/23 1536 Dictated By: Jane Shepherd MD 11/19/23 1527 Signed By: 11/19/23 1536 Normal [facility] 36on 11-17-2023 36 Patient called back and I explained Cele's message to her. She is agreeable to start Zetia and have repeat labs in 2-3 months. She verbalized understanding. Normal [facility] 36 Regarding lipid pane l result from 11/08/2023: Odilia Mccallum, ADRYAN Figueroa MA Please let her know her bad cholesterol level, the LDL is above goal. She is at 80. Need to be less than 70, if can get below 55 even better. Recommend we start zetia 10mg daily since she cannot tolerate higher dose of statin and repeat lipids/LFTs in 2-3 months. Thanks! LM for patient asking her to return my call. Normal [facility] Orders Onlyon 11-17-2023 Orders Only [id number] Ashley Brown 1940 F Date Provider Department Center 11/17/2023 928-PETER FIGU[facility] Family History Problem Relation Age of Onset Coronary artery disease Father Other Father Family Status - Relation Status Age at Father Normal [facility] Cholesterol in LDL Calc [Mas s/Vol]on 11-08-2023 Cholesterol in LDL [Mass/Vol] 80.0 mg/dL [facility] Comment on above: <100 mg/dl [id number] 0-129 mg/dl NEAR OR ABOVE [id number] mg/dl BORDERLINE [id number] mg/dl HIGH>190 mg/dl VERY HIGH Cholesterol in VLDL Calc [Ma ss/Vol]on 11-08-2023 Cholesterol in VLDL [Mass/Vol] 19.2 mg/dL [facility] Laboratory - Chemistry and C hemistry - challengeon 11-08-2023 Cholesterol [Mass/Vol] 184 mg/dL <=[address] [facility] Cholesterol in HDL [Mass/Vol] 85 mg/dL 40-[address] [facility] Comment on above: > or =60 mg/dl - LOW CARDIOVASCULAR RISK<40 mg/dl - HIGH CARDIOVASCULAR RISK Triglyceride [Mass/Vol] 96 mg/dL <=[address] [facility] Serum or plasma total choles terol/high density lipoprotein (HDL) cholesterol mass marivel 11-08-2023 Cholesterol.total/Cho lesterol in HDL [Mass ratio] 2.2 {ratio} [facility] Comment on above: 3.3 - 4.4 LOW RISK4. 4 - 7.1 AVERAGE RISK7.1 - 11.0 MODERATE RISK>11.0 HIGH RISK Office Visiton 11-04-2023 Follow-up visit [id number] Ashley Brown 1940 F Date Provider Department Center 11/04/2023 Laurence-ODILIA MCCALLUM CARD [facility] Family History Problem Relation Age of Onset Coronary artery disease Father Other Father Family Status - Relation Status Age at Father Level of Service:34545 [facility] OFFICE/OUTPATIENT ESTABLISHED MOD MDM 30 MIN Normal [facility] XR knee RT 3V - NOT FOR ER U [place] 10-08-2023 XR knee RT 3V - NOT FOR ER USE [facility] [address] [place] [address] XRay Report Signed Patient: Ashley Brown MR#: [id number] 1 : 1940 Acct:[id number] Age/Sex: 82 / F ADM Date: 10/08/23 Loc: [facility] Room: Type: [facility] Attending Dr: Magno Pichardo II, MD Copies [...] Richard Oliver M.D.10/08/2023 2:15 PM Dictation Location: [place] [address] Transcribed By: [facility] 10/08/23 1415 Dictated By: Richard Oliver DO 10/08/23 1413 Signed By: 10/08/23 1415 Normal [facility] Alanine aminotransferase [En zymatic activity/volume] in Serum or PlasmaOrdered By: Heidi Mesa on 09-08-2023 ALT [Catalytic activity/Vol] 99 U/L 7-[address] [facility] Albumin [Mass/volume] in Ser um or Plasma by Bromocresol green (BCG) dye binding methoOrdered By: Heidi Mesa on 09-08-2023 Albumin BCG dye [Mass/Vol] 3.4 g/dL 3.5-5.[address] [facility] Alkaline phosphatase [Enzyma tic activity/volume] in Serum or PlasmaOrdered By: Heidi Mesa on 09-08-2023 ALP [Catalytic activity/Vol] 125 U/L 34-[address] [facility] Aspartate aminotransferase [ Enzymatic activity/volume] in Serum or PlasmaOrdered By: Heidi Mesa on 09-08-2023 AST [Catalytic activity/Vol] 71 U/L 13-[address] [facility] Basic Metabolic Panelon 08-28 Anion gap [Moles/Vol] 10.9 mmol/L Normal 6.0-15.0 [facility] Comment on above: Performed By: #### B MP, CBC #### [facility] [address] Calcium [Mass/Vol] 8.5 mg/dL Low 8.6-10.3 [facility] Comment on above: Performed By: #### B MP, CBC #### [address] Chloride [Moles/Vol] 103 mmol/L Normal 98-107 [facility] Comment on above: Performed By: #### B MP, CBC #### [address] CO2 [Moles/Vol] 25.7 mmol/L Normal 21.0-31.0 [facility] Comment on above: Performed By: #### B MP, CBC #### [address] Creatinine [Mass/Vol] 1.07 mg/dL Normal 0.60-1.20 [facility] Comment on above: Performed By: #### B MP, CBC #### [address] Creatinine Clr Calc Pharmacy 36.34 Normal [facility] Comment on above: Result Comment: PERF ORMED BY: [place] [address] PATHOLOGIST COMPLIANCE ANALYST BUBBA MERIDA M.D. Performed By: #### B MP, CBC #### [address] GFR/1.73 sq M.predicted MDRD (S/P/Bld) [Vol rate/Area] 52.511 mL/min/{1.73_m2} Normal [facility] Comment on above: Performed By: #### B MP, CBC #### [address] Glucose [Mass/Vol] 103 mg/dL High 70-100 [facility] Comment on above: Result Comment: [place] Glucose Reference Range is dependent on time and content of last meal. Glucose of more than 200 mg/dL in a nonstressed, ambulatory subject supports the diagnosis of Diabetes Mellitus. ADA recommended reference range Performed By: #### B MP, CBC #### [address] Potassium [Moles/Vol] 3.6 mmol/L Normal 3.5-5.1 [facility] Comment on above: Performed By: #### B MP, CBC #### [facility] [address] Sodium [Moles/Vol] 136 mmol/L Normal 136-145 [facility] Comment on above: Performed By: #### B MP, CBC #### [facility] [address] Urea nitrogen [Mass/Vol] 20 mg/dL Normal 7-25 [facility] Comment on above: Performed By: #### B MP, CBC #### [facility] [address] Basophils Auto (Bld) [#/Vol] Ordered By: Heidi Mesa on 09-08-2023 Basophils (Bld) [#/Vol] 0.1 10*3/uL 0.0-0.[address] [facility] Basophils/100 WBC Auto (Bld) Ordered By: Heidi Mesa on 09-08-2023 Basophils/100 WBC (Bld) 1.3 % . [facility] Bilirubin.total [Mass/volume ] in Serum or PlasmaOrdered By: Heidi Mesa on 09-08-2023 Bilirubin [Mass/Vol] 0.4 mg/dL 0.3-1.0 [facility] Calcium [Mass/volume] in Ser um or PlasmaOrdered By: Heidi Mesa on 09-08-2023 Calcium [Mass/Vol] 8.5 mg/dL 8.6-10.3 [facility] Carbon dioxide, total [Moles /volume] in Serum or PlasmaOrdered By: Heidi Mesa on 09-08-2023 CO2 [Moles/Vol] 25.7 mmol/L 21.0-31.0 [facility] Chloride [Moles/volume] in S tejas or PlasmaOrdered By: Heidi Mesa on 09-08-2023 Chloride [Moles/Vol] 103 mmol/L 98-107 [facility] Complete Blood Count Auto Di ffon 09-08-2023 Basophils (Bld) [#/Vol] 0.1 10*3/uL Normal 0.0-0.2 [facility] Comment on above: Result Comment: PERF ORMED BY: [place] [address] PATHOLOGIST COMPLIANCE ANALYST BUBBA MERIDA M.D. Performed By: #### B MP, CBC #### [address] Basophils/100 WBC (Bld) 1.3 % Normal . [facility] Comment on above: Performed By: #### B MP, CBC #### [address] Eosinophils (Bld) [#/Vol] 0.3 10*3/uL Normal 0.0-0.45 [facility] Comment on above: Performed By: #### B MP, CBC #### [address] Eosinophils/100 WBC (Bld) 4.0 % Normal . [facility] Comment on above: Performed By: #### B MP, CBC #### [address] Erythrocyte distribution width (RBC) [Ratio] 14.0 % Normal 11.9-15.3 [facility] Comment on above: Performed By: #### B MP, CBC #### [address] Hematocrit (Bld) [Volume fraction] 34.4 % Normal 34.0-46.4 [facility] Comment on above: Performed By: #### B MP, CBC #### [address] Hemoglobin (Bld) [Mass/Vol] 11.3 g/dL Low 11.8-15.4 [facility] Comment on above: Performed By: #### B MP, CBC #### [address] Lymphocytes (Bld) [#/Vol] 2.3 10*3/uL Normal 1.00-4.8 [facility] Comment on above: Performed By: #### B MP, CBC #### [address] [address] [place] Lymphocytes/100 WBC (Bld) 31.1 % Normal . [facility] Comment on above: Performed By: #### B MP, CBC #### [address] MCH (RBC) [Entitic mass] 32.2 pg Normal 24.7-34.3 [facility] Comment on above: Performed By: #### B MP, CBC #### [address] MCV (RBC) [Entitic vol] 97.7 fL Normal 80-100 [facility] Comment on above: Performed By: #### B MP, CBC #### [address] Mean Corpuscular HGB Conc 32.9 g/dL Normal 32.0-35.0 [facility] Comment on above: Performed By: #### B MP, CBC #### [address] Monocytes (Bld) [#/Vol] 0.7 10*3/uL Normal 0.0-0.8 [facility] Comment on above: Performed By: #### B MP, CBC #### [address] Monocytes/100 WBC (Bld) 9.5 % Normal . [facility] Comment on above: Performed By: #### B MP, CBC #### [address] Neutrophils (Bld) [#/Vol] 4.0 10*3/uL Normal 1.8-7.7 [facility] Comment on above: Performed By: #### B MP, CBC #### [address] Neutrophils/100 WBC (Bld) 54.1 % Normal . [facility] Comment on above: Performed By: #### B MP, CBC #### [address] NRBC% 0.1 /100{WBC} Normal 0-0.5 [facility] Comment on above: Performed By: #### B MP, CBC #### [address] Platelet mean volume (Bld) [Entitic vol] 8.0 fL Normal 6.3-10.7 [facility] Comment on above: Performed By: #### B MP, CBC #### [address] Platelets (Bld) [#/Vol] 419 10*3/uL Normal 150-450 [facility] Comment on above: Performed By: #### B MP, CBC #### [address] RBC (Bld) [#/Vol] 3.52 10*6/uL Low 3.60-5.00 [facility] Comment on above: Performed By: #### B MP, CBC #### [address] WBC (Bld) [#/Vol] 7.3 10*3/uL Normal 3.8-11.6 [facility] Comment on above: Performed By: #### B MP, CBC #### [address] Comprehensive Metabolic Pane elia 09-08-2023 Albumin [Mass/Vol] 3.4 g/dL Low 3.5-5.7 [facility] Comment on above: Performed By: #### C MP ####[address] Albumin/Globulin [Mass ratio] 1.2 {ratio} Normal [facility] Comment on above: Performed By: #### C MP ####[address] ALP [Catalytic activity/Vol] 125 U/L High 34-104 [facility] Comment on above: Performed By: #### C MP ####[address] ALT [Catalytic activity/Vol] 99 U/L High 7-52 [facility] Comment on above: Performed By: #### C MP ####[place] [id number] [facility] Anion gap [Moles/Vol] 10.0 mmol/L Normal 6.0-15.0 [facility] Comment on above: Performed By: #### C MP ####[place] [id number] [facility] AST [Catalytic activity/Vol] 71 U/L High 13-39 [facility] Comment on above: Performed By: #### C MP ####[place] [id number] [facility] Bilirubin [Mass/Vol] 0.4 mg/dL Normal 0.3-1.0 [facility] Comment on above: Performed By: #### C MP ####[place] [id number] [facility] Calcium [Mass/Vol] 8.9 mg/dL Normal 8.6-10.3 [facility] Comment on above: Performed By: #### C MP ####[place] [id number] [facility] Chloride [Moles/Vol] 104 mmol/L Normal 98-107 [facility] Comment on above: Performed By: #### C MP ####[place] [id number] [facility] CO2 [Moles/Vol] 27.4 mmol/L Normal 21.0-31.0 [facility] Comment on above: Performed By: #### C MP ####[place] [id number] [facility] Creatinine [Mass/Vol] 0.91 mg/dL Normal 0.60-1.20 [facility] Comment on above: Performed By: #### C MP ####[place] [id number] [facility] Creatinine Clr Calc Pharmacy 42.73 Normal [facility] Comment on above: Result Comment: PERF ORMED BY: [facility] [address] PATHOLOGIST COMPLIANCE ANALYST BUBBA MERIDA M.D. Performed By: #### C MP ####[place] [id number] [facility] GFR/1.73 sq M.predicted MDRD (S/P/Bld) [Vol rate/Area] mL/min/{1.73_m2} Normal [facility] Comment on above: Performed By: #### C MP ####[address] Globulin (S) [Mass/Vol] 2.9 g/dL Normal [facility] Comment on above: Performed By: #### C MP ####[address] Glucose [Mass/Vol] 85 mg/dL Normal 70-100 [facility] Comment on above: Result Comment: [facility] Glucose Reference Range is dependent on time and content of last meal. Glucose of more than 200 mg/dL in a nonstressed, ambulatory subject supports the diagnosis of Diabetes Mellitus. ADA recommended reference range Performed By: #### C MP ####[address] Potassium [Moles/Vol] 4.4 mmol/L Normal 3.5-5.1 [facility] Comment on above: Performed By: #### C MP ####[address] Protein [Mass/Vol] 6.3 g/dL Low 6.4-8.9 [facility] Comment on above: Performed By: #### C MP ####[address] Sodium [Moles/Vol] 137 mmol/L Normal 136-145 [facility] Comment on above: Performed By: #### C MP ####[address] Urea nitrogen [Mass/Vol] 17 mg/dL Normal 7-25 [facility] Comment on above: Performed By: #### C MP ####[facility] [id number] [place] [address] [facility] Creatinine [Mass/volume] in Serum or PlasmaOrdered By: Heidi Mesa on 09-08-2023 Creatinine [Mass/Vol] 1.07 mg/dL 0.60-1.[address] [facility] Eosinophils Auto (Bld) [#/Vo l]Ordered By: Heidi Mesa on 09-08-2023 Eosinophils (Bld) [#/Vol] 0.3 10*3/uL 0.0-0.[address] [facility] Eosinophils/100 WBC Auto (Bl d)Ordered By: Heidi Mesa on 09-08-2023 Eosinophils/100 WBC (Bld) 4.0 % . [facility] Erythrocyte distribution wid th Auto (RBC) [Ratio]Ordered By: Heidi Mesa on 09-08-2023 Erythrocyte distribution width (RBC) [Ratio] 14.0 % 11.9-15.[address] [facility] Globulin Calc (S) [Mass/Vol] Ordered By: Heidi Mesa on 09-08-2023 Globulin (S) [Mass/Vol] 2.9 g/dL [facility] Glucose [Mass/volume] in Ser um or PlasmaOrdered By: Heidi Mesa on 09-08-2023 Glucose [Mass/Vol] 103 mg/dL 70-100 [facility] Comment on above: ADA recommended refe rence rangeRandom Glucose Reference Range is dependent on time and content of last meal. Glucose of more than 200 mg/dL in a nonstressed, ambulatory subject supports the diagnosis of Diabetes Mellitus. Hematocrit Auto (Bld) [Volum e fraction]Ordered By: Heidi Mesa on 09-08-2023 Hematocrit (Bld) [Volume fraction] 34.4 % 34.0-46.[address] [facility] Hemoglobin [Mass/volume] in BloodOrdered By: Heidi Mesa on 09-08-2023 Hemoglobin (Bld) [Mass/Vol] 11.3 g/dL 11.8-15.[address] [facility] Leukocytes [#/volume] correc alvaro for nucleated erythrocytes in Blood by Automated counOrdered By: Heidi Mesa on 09-08-2023 WBC corrected for nucl RBC Auto (Bld) [#/Vol] 7.3 10*3/uL 3.8-11.[address] [facility] Lymphocytes Auto (Bld) [#/Vo l]Ordered By: Heidi Mesa on 09-08-2023 Lymphocytes (Bld) [#/Vol] 2.3 10*3/uL 1.00-4.[address] [facility] Lymphocytes/100 WBC Auto (Bl d)Ordered By: Heidi Mesa on 09-08-2023 Lymphocytes/100 WBC (Bld) 31.1 % . [facility] MCH Auto (RBC) [Entitic mass ]Ordered By: Heidi Mesa on 09-08-2023 MCH (RBC) [Entitic mass] 32.2 pg 24.7-34.[address] [facility] MCHC Auto (RBC) [Mass/Vol]Or dered By: Heidi Mesa on 09-08-2023 MCHC (RBC) [Mass/Vol] 32.9 g/dL 32.0-35.[address] [facility] MCV Auto (RBC) [Entitic vol] Ordered By: Heidi Mesa on 09-08-2023 MCV (RBC) [Entitic vol] 97.7 fL 80-[address] [facility] Monocytes Auto (Bld) [#/Vol] Ordered By: Heidi Mesa on 09-08-2023 Monocytes (Bld) [#/Vol] 0.7 10*3/uL 0.0-0.[address] [facility] Monocytes/100 WBC Auto (Bld) Ordered By: Heidi Mesa on 09-08-2023 Monocytes/100 WBC (Bld) 9.5 % . [facility] Neutrophils Auto (Bld) [#/Vo l]Ordered By: Heidi Mesa on 09-08-2023 Neutrophils (Bld) [#/Vol] 4.0 10*3/uL 1.8-7.[address] [facility] Neutrophils/100 WBC Auto (Bl d)Ordered By: Heidi Mesa on 09-08-2023 Neutrophils/100 WBC (Bld) 54.1 % . [facility] No Panel InformationOrdered By: Heidi Mesa on 09-08-2023 Estimated GFR (CKD-EPI) 52.511 mL/Min [facility] Creatinine Clearance (Chem 36.[address] [facility] Nucleated erythrocytes [Pres ence] in Blood by Automated countOrdered By: Heidi Mesa on 09-08-2023 Nucleated RBC Auto Ql (Bld) 0.1 /100{WBC} 0-0.[address] [facility] Platelet mean volume Auto (B ld) [Entitic vol]Ordered By: Heidi Mesa on 09-08-2023 Platelet mean volume (Bld) [Entitic vol] 8.0 fL 6.3-10.[address] [facility] Platelets Auto (Bld) [#/Vol] Ordered By: Heidi Mesa on 09-08-2023 Platelets (Bld) [#/Vol] 419 10*3/uL 150-[address] [facility] Potassium [Moles/volume] in Serum or PlasmaOrdered By: Heidi Mesa on 09-08-2023 Potassium [Moles/Vol] 3.6 mmol/L 3.5-5.[address] [facility] Protein [Mass/volume] in Ser um or PlasmaOrdered By: Heidi Mesa on 09-08-2023 Protein [Mass/Vol] 6.3 g/dL 6.4-8.9 [facility] RBC Auto (Bld) [#/Vol]Ordere d By: Heidi Mesa on 09-08-2023 RBC (Bld) [#/Vol] 3.52 10*6/uL 3.60-5.00 [facility] Serum or plasma albumin/glob ulin mass ratioOrdered By: Heidi Mesa on 09-08-2023 Albumin/Globulin [Mass ratio] 1.2 {ratio} [facility] Serum or plasma anion gap de terminationOrdered By: Heidi Mesa on 09-08-2023 Anion gap [Moles/Vol] 10.9 mmol/L 6.0-15.0 [facility] Sodium [Moles/volume] in Ser um or PlasmaOrdered By: Heidi Mesa on 09-08-2023 Sodium [Moles/Vol] 136 mmol/L 136-145 [facility] Urea nitrogen [Mass/volume] in Serum or PlasmaOrdered By: Heidi Mesa on 09-08-2023 Urea nitrogen [Mass/Vol] 20 mg/dL 7-[address] [facility] WBC Auto (Bld) [#/Vol]Ordere d By: Heidi Mesa on 09-08-2023 WBC (Bld) [#/Vol] 7.3 10*3/uL 3.8-11.6 [facility] Bilirubin.direct [Mass/volum e] in Serum or PlasmaOrdered By: Carol Holland on 09-07-2023 Bilirubin.direct [Mass/Vol] 0.10 mg/dL 0.03-0.[address] [facility] Hepatic Panelon 09-07-2023 Albumin [Mass/Vol] 3.7 g/dL Normal 3.5-5.7 [facility] Comment on above: Performed By: #### H EPATIC ####[address] Albumin/Globulin [Mass ratio] 1.2 {ratio} Normal [facility] Comment on above: Performed By: #### H EPATIC ####[place] [id number] [facility] ALP [Catalytic activity/Vol] 128 U/L High 34-104 [facility] Comment on above: Result Comment: PERF ORMED BY: [facility] [address] [place] [id number] PATHOLOGIST COMPLIANCE ANALYST BUBBA MERIDA M.D. Performed By: #### H EPATIC ####[place] [id number] [facility] ALT [Catalytic activity/Vol] 126 U/L High 7-52 [facility] Comment on above: Performed By: #### H EPATIC ####[place] [id number] [facility] AST [Catalytic activity/Vol] 115 U/L High 13-39 [facility] Comment on above: Performed By: #### H EPATIC ####[place] [address] Bilirubin [Mass/Vol] 0.5 mg/dL Normal 0.3-1.0 [facility] Comment on above: Performed By: #### H EPATIC ####[address] Bilirubin,Indirect 0.4 mg/dL Normal [facility] Comment on above: Performed By: #### H EPATIC ####[address] Bilirubin.indirect [Mass/Vol] 0.10 mg/dL Normal 0.03-0.18 [facility] Comment on above: Performed By: #### H EPATIC ####[address] Globulin (S) [Mass/Vol] 3.2 g/dL Normal [facility] Comment on above: Performed By: #### H EPATIC ####[address] Protein [Mass/Vol] 6.9 g/dL Normal 6.4-8.9 [facility] Comment on above: Performed By: #### H EPATIC ####[address] Serum or plasma non-glucuron idated bilirubin measurement (mass/volume)Ordered By: Carol Holland on 09-07-2023 Bilirubin.indirect [Mass/Vol] 0.4 mg/dL [facility] US venous duplex LE RTon US venous duplex LE RT [facility] [address] [place] [address] [place] [address] Ultrasound Report Signed Patient: Ashley Brown MR#: [id number] 1 : 1940 Acct:[id number] Age/Sex: 82 / F ADM Date: 09/02/23 Loc: Room: 6K0857-4 Type: ADM IN Attending Dr: Elijah Mayers [...] Richard Cochran M.D.09/06/2023 9:29 AM Dictation Location: [place] [address] Tech: Yuridia Wheelerley Transcribed By: JESUSITA 09/06/23928 Dictated By: Richard Cochran MD 09/06/23927 Signed By: 09/06/23928 Normal [facility] Complete Blood Count Auto Di ffon 09-03-2023 Basophils (Bld) [#/Vol] 0.0 10*3/uL Normal 0.0-0.2 [facility] Comment on above: Result Comment: PERF ORMED BY: [facility] [address] [place] [address] PATHOLOGIST COMPLIANCE ANALYST BUBBA MERIDA M.D. Performed By: #### P AB, CMP, CBC ####[address] Basophils/100 WBC (Bld) 0.3 % Normal . [facility] Comment on above: Performed By: #### P AB, CMP, CBC ####[address] Eosinophils (Bld) [#/Vol] 0.1 10*3/uL Normal 0.0-0.45 [facility] Comment on above: Performed By: #### P AB, CMP, CBC ####[place] [id number] [place] Eosinophils/100 WBC (Bld) 0.8 % Normal . [facility] Comment on above: Performed By: #### P AB, CMP, CBC ####[address] Erythrocyte distribution width (RBC) [Ratio] 13.3 % Normal 11.9-15.3 [facility] Comment on above: Performed By: #### P AB, CMP, CBC ####[address] Hematocrit (Bld) [Volume fraction] 34.1 % Normal 34.0-46.4 [facility] Comment on above: Performed By: #### P AB, CMP, CBC ####[address] Hemoglobin (Bld) [Mass/Vol] 11.4 g/dL Low 11.8-15.4 [facility] Comment on above: Performed By: #### P AB, CMP, CBC ####[address] Lymphocytes (Bld) [#/Vol] 0.8 10*3/uL Low 1.00-4.8 [facility] Comment on above: Performed By: #### P AB, CMP, CBC ####[address] Lymphocytes/100 WBC (Bld) 10.7 % Normal . [facility] Comment on above: Performed By: #### P AB, CMP, CBC ####[address] MCH (RBC) [Entitic mass] 32.4 pg Normal 24.7-34.3 [facility] Comment on above: Performed By: #### P AB, CMP, CBC ####[address] MCV (RBC) [Entitic vol] 97.5 fL Normal 80-100 [facility] Comment on above: Performed By: #### P AB, CMP, CBC ####[place] [id number] [facility] Mean Corpuscular HGB Conc 33.3 g/dL Normal 32.0-35.0 [facility] Comment on above: Performed By: #### P AB, CMP, CBC ####[address] Monocytes (Bld) [#/Vol] 0.9 10*3/uL High 0.0-0.8 [facility] Comment on above: Performed By: #### P AB, CMP, CBC ####[address] Monocytes/100 WBC (Bld) 11.5 % Normal . [facility] Comment on above: Performed By: #### P AB, CMP, CBC ####[address] Neutrophils (Bld) [#/Vol] 6.0 10*3/uL Normal 1.8-7.7 [facility] Comment on above: Performed By: #### P AB, CMP, CBC ####[address] Neutrophils/100 WBC (Bld) 76.7 % Normal . [facility] Comment on above: Performed By: #### P AB, CMP, CBC ####[address] NRBC% 0.0 /100{WBC} Normal 0-0.5 [facility] Comment on above: Performed By: #### P AB, CMP, CBC ####[place] [id number] [facility] Platelet mean volume (Bld) [Entitic vol] 8.2 fL Normal 6.3-10.7 [facility] Comment on above: Performed By: #### P AB, CMP, CBC ####[address] Platelets (Bld) [#/Vol] 296 10*3/uL Normal 150-450 [facility] Comment on above: Performed By: #### P AB, CMP, CBC ####[address] RBC (Bld) [#/Vol] 3.50 10*6/uL Low 3.60-5.00 [facility] Comment on above: Performed By: #### P AB, CMP, CBC ####[address] WBC (Bld) [#/Vol] 7.8 10*3/uL Normal 3.8-11.6 [facility] Comment on above: Performed By: #### P AB, CMP, CBC ####[address] Comprehensive Metabolic Pane elia 09-03-2023 Albumin [Mass/Vol] 3.3 g/dL Low 3.5-5.7 [facility] Comment on above: Performed By: #### P AB, CMP, CBC ####[address] Albumin/Globulin [Mass ratio] 1.5 {ratio} Normal [facility] Comment on above: Performed By: #### P AB, CMP, CBC ####[address] ALP [Catalytic activity/Vol] 178 U/L High 34-104 [facility] Comment on above: Performed By: #### P AB, CMP, CBC ####[address] ALT [Catalytic activity/Vol] 258 U/L High 7-52 [facility] Comment on above: Performed By: #### P AB, CMP, CBC ####[address] Anion gap [Moles/Vol] 11.9 mmol/L Normal 6.0-15.0 e [facility] Comment on above: Performed By: #### P AB, CMP, CBC ####[address] AST [Catalytic activity/Vol] 273 U/L High 13-39 [facility] Comment on above: Performed By: #### P AB, CMP, CBC ####[address] Bilirubin [Mass/Vol] 0.4 mg/dL Normal 0.3-1.0 [facility] Comment on above: Performed By: #### P AB, CMP, CBC ####[address] Calcium [Mass/Vol] 8.8 mg/dL Normal 8.6-10.3 [facility] Comment on above: Performed By: #### P AB, CMP, CBC ####[address] Chloride [Moles/Vol] 101 mmol/L Normal 98-107 [facility] Comment on above: Performed By: #### P AB, CMP, CBC ####[address] CO2 [Moles/Vol] 28.6 mmol/L Normal 21.0-31.0 The [facility] Comment on above: Performed By: #### P AB, CMP, CBC ####[address] Creatinine [Mass/Vol] 0.78 mg/dL Normal 0.60-1.20 [facility] Comment on above: Performed By: #### P AB, CMP, CBC ####[address] Creatinine Clr Calc Pharmacy 47.47 Normal [facility] Comment on above: Performed By: #### P AB, CMP, CBC ####[address] GFR/1.73 sq M.predicted MDRD (S/P/Bld) [Vol rate/Area] mL/min/{1.73_m2} Normal [facility] Comment on above: Performed By: #### P AB, CMP, CBC ####[place] [id number] [place] Globulin (S) [Mass/Vol] 2.2 g/dL Normal [facility] Comment on above: Performed By: #### P AB, CMP, CBC ####[address] Glucose [Mass/Vol] 117 mg/dL High 70-100 [facility] Comment on above: Result Comment: [facility] Glucose Reference Range is dependent on time and content of last meal. Glucose of more than 200 mg/dL in a nonstressed, ambulatory subject supports the diagnosis of Diabetes Mellitus. ADA recommended reference range Performed By: #### P AB, CMP, CBC ####[address] Potassium [Moles/Vol] 4.5 mmol/L Normal 3.5-5.1 [facility] Comment on above: Performed By: #### P AB, CMP, CBC ####[address] Protein [Mass/Vol] 5.5 g/dL Low 6.4-8.9 [facility] Comment on above: Performed By: #### P AB, CMP, CBC ####[address] Sodium [Moles/Vol] 137 mmol/L Normal 136-145 [facility] Comment on above: Performed By: #### P AB, CMP, CBC ####[address] Urea nitrogen [Mass/Vol] 11 mg/dL Normal 7-25 [facility] Comment on above: Performed By: #### P AB, CMP, CBC ####[place] [phone] [facility] Prealbuminon 09-03-2023 Prealbumin [Mass/Vol] 15.7 mg/dL Low 17.0-34.0 [facility] Comment on above: Result Comment: PERF ORMED BY: [facility] [address] [facility] [place] [address] PATHOLOGIST COMPLIANCE ANALYST BUBBA MERIDA M.D. Performed By: #### P AB, CMP, CBC ####[facility] Prealbumin [Mass/volume] in Serum or PlasmaOrdered By: Elijah Mayers on 09-03-2023 Prealbumin [Mass/Vol] 15.7 mg/dL 17.0-34.[address] [facility] Complete Blood Count Auto Di ffon 09-02-2023 Basophils (Bld) [#/Vol] 0.1 10*3/uL Normal 0.0-0.2 [facility] Comment on above: Result Comment: PERF ORMED BY: [place] [address] PATHOLOGIST COMPLIANCE ANALYST BUBBA MERIDA M.D. Performed By: #### C BC #### [address] Basophils/100 WBC (Bld) 0.9 % Normal . [facility] Comment on above: Performed By: #### C BC #### [address] Eosinophils (Bld) [#/Vol] 0.2 10*3/uL Normal 0.0-0.45 [facility] Comment on above: Performed By: #### C BC #### [address] Eosinophils/100 WBC (Bld) 2.5 % Normal . [facility] Comment on above: Performed By: #### C BC #### [address] Erythrocyte distribution width (RBC) [Ratio] 13.4 % Normal 11.9-15.3 [facility] Comment on above: Performed By: #### C BC #### [address] Hematocrit (Bld) [Volume fraction] 32.3 % Low 34.0-46.4 [facility] Comment on above: Performed By: #### C BC #### [address] [place] [address] [place] Hemoglobin (Bld) [Mass/Vol] 10.9 g/dL Low 11.8-15.4 [facility] Comment on above: Performed By: #### C BC #### [address] Lymphocytes (Bld) [#/Vol] 0.7 10*3/uL Low 1.00-4.8 [facility] Comment on above: Performed By: #### C BC #### [address] Lymphocytes/100 WBC (Bld) 9.5 % Normal . [facility] Comment on above: Performed By: #### C BC #### [address] MCH (RBC) [Entitic mass] 32.7 pg Normal 24.7-34.3 [facility] Comment on above: Performed By: #### C BC #### [address] MCV (RBC) [Entitic vol] 96.7 fL Normal 80-100 [facility] Comment on above: Performed By: #### C BC #### [address] Mean Corpuscular HGB Conc 33.8 g/dL Normal 32.0-35.0 [facility] Comment on above: Performed By: #### C BC #### [address] Monocytes (Bld) [#/Vol] 0.7 10*3/uL Normal 0.0-0.8 [facility] Comment on above: Performed By: #### C BC #### [address] Monocytes/100 WBC (Bld) 9.5 % Normal . [facility] Comment on above: Performed By: #### C BC #### [address] Neutrophils (Bld) [#/Vol] 5.8 10*3/uL Normal 1.8-7.7 [facility] Comment on above: Performed By: #### C BC #### [facility] [address] Neutrophils/100 WBC (Bld) 77.6 % Normal . [facility] Comment on above: Performed By: #### C BC #### [facility] [address] NRBC% 0.0 /100{WBC} Normal 0-0.5 [facility] Comment on above: Performed By: #### C BC #### [facility] [address] Platelet mean volume (Bld) [Entitic vol] 8.1 fL Normal 6.3-10.7 [facility] Comment on above: Performed By: #### C BC #### [facility] [address] Platelets (Bld) [#/Vol] 272 10*3/uL Normal 150-450 [facility] Comment on above: Performed By: #### C BC #### [facility] [address] [place] [address] [place] RBC (Bld) [#/Vol] 3.34 10*6/uL Low 3.60-5.00 [facility] Comment on above: Performed By: #### C BC #### [facility] [address] [place] [address] [place] WBC (Bld) [#/Vol] 7.5 10*3/uL Normal 3.8-11.6 [facility] Comment on above: Performed By: #### C BC #### [address] ABO/Rh Retypeon 09-01-2023 ABO/RH Recheck Result Positive Normal [facility] Comment on above: Result Comment: PERF ORMED BY: [place] [address] PATHOLOGIST COMPLIANCE ANALYST BUBBA MERIDA M.D. Basic Metabolic Panelon -0 Anion gap [Moles/Vol] 11.0 mmol/L Normal 6.0-15.0 Th e [facility] Comment on above: Performed By: #### C BC #### [address] Calcium [Mass/Vol] 9.3 mg/dL Normal 8.6-10.3 [facility] Comment on above: Performed By: #### C BC #### [address] Chloride [Moles/Vol] 105 mmol/L Normal 98-107 [facility] Comment on above: Performed By: #### C BC #### [address] CO2 [Moles/Vol] 25.7 mmol/L Normal 21.0-31.0 The [facility] Comment on above: Performed By: #### C BC #### [address] Creatinine [Mass/Vol] 0.81 mg/dL Normal 0.60-1.20 [facility] Comment on above: Performed By: #### C BC #### [place] [address] [place] Creatinine Clr Calc Pharmacy 47.31 Normal [facility] Comment on above: Result Comment: PERF ORMED BY: [place] [address] PATHOLOGIST COMPLIANCE ANALYST BUBBA MERIDA M.D. Performed By: #### C BC #### [place] [address] [place] GFR/1.73 sq M.predicted MDRD (S/P/Bld) [Vol rate/Area] mL/min/{1.73_m2} Normal [facility] Comment on above: Performed By: #### C BC #### [address] Glucose [Mass/Vol] 81 mg/dL Normal 70-100 [facility] Comment on above: Result Comment: [place] Glucose Reference Range is dependent on time and content of last meal. Glucose of more than 200 mg/dL in a nonstressed, ambulatory subject supports the diagnosis of Diabetes Mellitus. ADA recommended reference range Performed By: #### C BC #### [address] Potassium [Moles/Vol] 3.7 mmol/L Normal 3.5-5.1 [facility] Comment on above: Performed By: #### C BC #### [address] Sodium [Moles/Vol] 138 mmol/L Normal 136-145 [facility] Comment on above: Performed By: #### C BC #### [address] Urea nitrogen [Mass/Vol] 11 mg/dL Normal 7-25 [facility] Comment on above: Performed By: #### C BC #### [address] Elia 09-01-2023 L Specimen: [id number] Received: 09/02/23 Status: SOUAntonio Rechan Num: [id number] Spec Type: Surgical Subm Dr: Magno Pichardo MD Tissues: A Joint/Knee (RT KNEE) Procedures: HE, Gross/Micro L4, Decalcification Age/ Patient Sex Location Account Attending Physician Ashley Brown 82/F 4N [id number] Magno Pichardo MD SPEC NUM: [id number] RECD: 09/02/23 STATUS: MENG RE NUM: [id number] GINA: 09/01/[address]: Magno Pichardo MD ENTERED: 09/02/[address] [facility] [address]: SPEC TYPE: Surgical DEPT: S ORDERED: [...] is taken. Gross examination only. CPT Codes 72382 Gross Photo Specimen: [id number] Received: 09/02/23 Status: MENG Nelly Num: [id number] Spec Type: Surgical Subm Dr: Magno Pichardo MD Tissues: A Joint/Knee (RT KNEE) Procedures: SISSY, Gross/Micro L4, Decalcification Patient: MingoAshley [id number] (Continued) Signed (signature on file) Nik Garza MD 09/10/23 1049 Normal [facility] XR knee RT 2Von 09-01-2023 XR knee RT [address] [facility] [address] XRay Report Signed Patient: Ashley Brown MR#: [id number] 1 : 1940 Acct:[id number] Age/Sex: 82 / F ADM Date: 09/01/23 Loc: Room: [address] [place] [address] Type: ADM IN Attending Dr: Magno Pichardo [...] Richard Oliver M.D.09/01/2023 3:20 PM Dictation Location: [place] [address] Transcribed By: [facility] 09/01/23 1520 Dictated By: Richard Oliver DO 09/01/23 1517 Signed By: 09/01/23 1520 Normal [facility] Automated erythrocytes count in urine sediment (number/area)Ordered By: Magno Pichardo on 08-20-2023 RBC Auto (Urine sed) [#/Area] 0-1 [HPF] 0-[address] [facility] Automated leukocytes count i n urine sediment (number/area)Ordered By: Magno Pichardo on 08-20-2023 WBC Auto (Urine sed) [#/Area] 10-19 [HPF] 0-[address] [facility] Basic Metabolic Panelon 08-01 Anion gap [Moles/Vol] 10.6 mmol/L Normal 6.0-15.0 Th e [facility] Comment on above: Performed By: #### A DDONUAPLUS, CUU #### [address] Calcium [Mass/Vol] 9.7 mg/dL Normal 8.6-10.3 [facility] Comment on above: Result Comment: PERF ORMED BY: [place] [address] PATHOLOGIST COMPLIANCE ANALYST BUBBA MERIDA M.D. Performed By: #### A DDONUAPLUS, CUU #### [address] Chloride [Moles/Vol] 104 mmol/L Normal 98-107 [facility] Comment on above: Performed By: #### A DDONUAPLUS, CUU #### [address] CO2 [Moles/Vol] 26.3 mmol/L Normal 21.0-31.0 [facility] Comment on above: Performed By: #### A DDONUAPLUS, CUU #### [address] Creatinine [Mass/Vol] 0.88 mg/dL Normal 0.60-1.20 [facility] Comment on above: Performed By: #### A DDONUAPLUS, CUU #### [place] [address] [place] GFR/1.73 sq M.predicted MDRD (S/P/Bld) [Vol rate/Area] mL/min/{1.73_m2} Normal [facility] Comment on above: Performed By: #### A DDONUAPLUS, CUU #### [address] Glucose [Mass/Vol] 81 mg/dL Normal 70-100 [facility] Comment on above: Result Comment: [place] Glucose Reference Range is dependent on time and content of last meal. Glucose of more than 200 mg/dL in a nonstressed, ambulatory subject supports the diagnosis of Diabetes Mellitus. ADA recommended reference range Performed By: #### A DDONUAPLUS, CUU #### [facility] [address] Potassium [Moles/Vol] 3.9 mmol/L Normal 3.5-5.1 [facility] Comment on above: Performed By: #### A DDONUAPLUS, CUU #### [facility] [address] Sodium [Moles/Vol] 137 mmol/L Normal 136-145 [facility] Comment on above: Performed By: #### A DDONUAPLUS, CUU #### [facility] [address] Urea nitrogen [Mass/Vol] 19 mg/dL Normal 7-25 [facility] Comment on above: Performed By: #### A DDONUAPLUS, CUU #### [facility] [address] Basophils Auto (Bld) [#/Vol] Ordered By: Magno Pichardo on 08-20-2023 Basophils (Bld) [#/Vol] 0.1 10*3/uL 0.0-0.[address] [facility] Basophils/100 WBC Auto (Bld) Ordered By: Magno Pichardo on 08-20-2023 Basophils/100 WBC (Bld) 1.1 % . [facility] Bilirubin Test strip Ql (U)O rdered By: Magno Pichardo on 08-20-2023 Bilirubin Ql (U) Negative Negative [facility] Calcium [Mass/volume] in Ser um or PlasmaOrdered By: Magno Pichardo on 08-20-2023 Calcium [Mass/Vol] 9.7 mg/dL 8.6-10.3 [facility] Carbon dioxide, total [Moles /volume] in Serum or PlasmaOrdered By: Magno Pichardo on 08-20-2023 CO2 [Moles/Vol] 26.3 mmol/L 21.0-31.0 [facility] Chloride [Moles/volume] in S tejas or PlasmaOrdered By: Magno Pichardo on 08-20-2023 Chloride [Moles/Vol] 104 mmol/L 98-107 [facility] Color Auto (U)Ordered By: Suri Mcclendonle on 08-20-2023 Color (U) Yellow Yellow [facility] Complete Blood Count Auto Di ffon 08-20-2023 Basophils (Bld) [#/Vol] 0.1 10*3/uL Normal 0.0-0.2 [facility] Comment on above: Result Comment: PERF ORMED BY: [place] [address] PATHOLOGIST COMPLIANCE ANALYST BUBBA MERIDA M.D. Performed By: #### A ESTEPHANIE CUU #### [address] Basophils/100 WBC (Bld) 1.1 % Normal . [facility] Comment on above: Performed By: #### A ESTEPHANIE CUU #### [address] Eosinophils (Bld) [#/Vol] 0.2 10*3/uL Normal 0.0-0.45 [facility] Comment on above: Performed By: #### A ESTEPHANIE CUU #### [address] Eosinophils/100 WBC (Bld) 3.5 % Normal . [facility] Comment on above: Performed By: #### A ESTEPHANIE, CUU #### [address] Erythrocyte distribution width (RBC) [Ratio] 14.3 % Normal 11.9-15.3 [facility] Comment on above: Performed By: #### A ESTEPHANIE CUU #### [address] Hematocrit (Bld) [Volume fraction] 39.8 % Normal 34.0-46.4 [facility] Comment on above: Performed By: #### A ESTEPHANIE, CUU #### [place] [address] [place] Hemoglobin (Bld) [Mass/Vol] 13.5 g/dL Normal 11.8-15.4 [facility] Comment on above: Performed By: #### A ESTEPHANIE, CUU #### [address] Lymphocytes (Bld) [#/Vol] 1.3 10*3/uL Normal 1.00-4.8 [facility] Comment on above: Performed By: #### A ESTEPHANIE, CUU #### [address] Lymphocytes/100 WBC (Bld) 20.0 % Normal . [facility] Comment on above: Performed By: #### A ESTEPHANIE, CUU #### [address] MCH (RBC) [Entitic mass] 33.2 pg Normal 24.7-34.3 [facility] Comment on above: Performed By: #### A ESTEPHANIE, CUU #### [address] MCV (RBC) [Entitic vol] 97.4 fL Normal 80-100 [facility] Comment on above: Performed By: #### A ESTEPHANIE, CUU #### [address] Mean Corpuscular HGB Conc 34.1 g/dL Normal 32.0-35.0 [facility] Comment on above: Performed By: #### A ESTEPHANIE, CUU #### [address] Monocytes (Bld) [#/Vol] 0.6 10*3/uL Normal 0.0-0.8 [facility] Comment on above: Performed By: #### A ESTEPHANIE, CUU #### [address] Monocytes/100 WBC (Bld) 9.3 % Normal . [facility] Comment on above: Performed By: #### A JOELPLUS, CUU #### [facility] [address] [place] [address] [place] Neutrophils (Bld) [#/Vol] 4.4 10*3/uL Normal 1.8-7.7 [facility] Comment on above: Performed By: #### A DDONUAPLUS, CUU #### [place] [address] [place] Neutrophils/100 WBC (Bld) 66.1 % Normal . [facility] Comment on above: Performed By: #### A DDONUAPLUS, CUU #### [address] NRBC% 0.1 /100{WBC} Normal 0-0.5 [facility] Comment on above: Performed By: #### A DDONUAPLUS, CUU #### [address] Platelet mean volume (Bld) [Entitic vol] 8.4 fL Normal 6.3-10.7 [facility] Comment on above: Performed By: #### A DDONUAPLUS, CUU #### [place] [address] [place] Platelets (Bld) [#/Vol] 326 10*3/uL Normal 150-450 [facility] Comment on above: Performed By: #### A DDONUAPLUS, CUU #### [place] [address] [place] RBC (Bld) [#/Vol] 4.08 10*6/uL Normal 3.60-5.00 [facility] Comment on above: Performed By: #### A DDONUAPLUS, CUU #### [place] [address] [place] WBC (Bld) [#/Vol] 6.6 10*3/uL Normal 3.8-11.6 [facility] Comment on above: Performed By: #### A DDONUAPLUS, CUU #### [place] [address] [place] Creatinine [Mass/volume] in Serum or PlasmaOrdered By: Magno Pichardo on 08-20-2023 Creatinine [Mass/Vol] 0.88 mg/dL 0.60-1.[address] [facility] Dipstick and Microscopicon 0 08-20-2023 Appearance (U) Clear Normal Clear [facility] Comment on above: Order Comment: Name Collection Type:: Clean-Voided Midstream Performed By: #### A DDONUAPLUS, CUU #### [address] Bacteria,Urine None Seen Normal None Seen [facility] Comment on above: Order Comment: Name Collection Type:: Clean-Voided Midstream Performed By: #### A DDONUAPLUS, CUU #### [address] Bilirubin,Urine Negative Normal Negative [facility] Comment on above: Order Comment: Name Collection Type:: Clean-Voided Midstream Performed By: #### A DDONUAPLUS, CUU #### [address] Color (U) Yellow Normal Yellow [facility] Comment on above: Order Comment: Name Collection Type:: Clean-Voided Midstream Performed By: #### A DDONUAPLUS, CUU #### [address] Glucose Ql (U) Normal Normal Normal [facility] Comment on above: Order Comment: Name Collection Type:: Clean-Voided Midstream Performed By: #### A DDONUAPLUS, CUU #### [address] Hyaline Casts,Urine None Seen Normal 0-8 [facility] Comment on above: Order Comment: Name Collection Type:: Clean-Voided Midstream Result Comment: PERF ORMED BY: [place] [address] PATHOLOGIST COMPLIANCE ANALYST BUBBA MERIDA M.D. Performed By: #### A DDONUAPLUS, CUU #### [address] Ketones Ql (U) Negative Normal Negative The [facility] Comment on above: Order Comment: Name Collection Type:: Clean-Voided Midstream Performed By: #### A DDONUAPLUS, CUU #### [address] Leukocyte esterase Test strip Ql (U) 3+ High Negative [facility] Comment on above: Order Comment: Name Collection Type:: Clean-Voided Midstream Performed By: #### A DDONUAPLUS, CUU #### [place] [address] [place] Nitrite,Urine Negative Normal Negative [facility] Comment on above: Order Comment: Name Collection Type:: Clean-Voided Midstream Performed By: #### A DDONUAPLUS, CUU #### [place] [address] [place] Occult Blood,Urine Negative Normal Negative [facility] Comment on above: Order Comment: Name Collection Type:: Clean-Voided Midstream Result Comment: PERF ORMED BY: [place] [address] PATHOLOGIST COMPLIANCE ANALYST BUBBA MERIDA M.D. Performed By: #### A DDONUAPLUS, CUU #### [address] pH (U) 6.0 [pH] Normal 5.0-9.0 [facility] Comment on above: Order Comment: Name Collection Type:: Clean-Voided Midstream Performed By: #### A DDONUAPLUS, CUU #### [place] [address] [place] Protein,Urine Negative Normal Negative [facility] Comment on above: Order Comment: Name Collection Type:: Clean-Voided Midstream Performed By: #### A DDONUAPLUS, CUU #### [place] [address] [place] RBC LM.HPF (Urine sed) [#/Area] 0 /[HPF] Normal 0-4 [facility] Comment on above: Order Comment: Name Collection Type:: Clean-Voided Midstream Performed By: #### A DDONUAPLUS, CUU #### [place] [address] [place] Specificy [place],Urine 1.008 Normal 1.001-1.03 0 [facility] Comment on above: Order Comment: Name Collection Type:: Clean-Voided Midstream Performed By: #### A DDONUAPLUS, CUU #### [address] Squamous Epithelial Cell,Urine 0-1 Normal 0-2 [facility] Comment on above: Order Comment: Name Collection Type:: Clean-Voided Midstream Performed By: #### A DDONUAPLUS, CUU #### [address] Urobilinogen,Urine Normal Normal Normal [facility] Comment on above: Order Comment: Name Collection Type:: Clean-Voided Midstream Performed By: #### A DDONUAPLUS, CUU #### [place] [address] [place] WBC,Urine 10-19 High 0-4 [facility] Comment on above: Order Comment: Name Collection Type:: Clean-Voided Midstream Performed By: #### A DDONUAPLUS, CUU #### [address] ECG 12 lead ECGon 08-20-[address] [facility] [address] Electrocardiograph Report Signed Patient: Ashley Brown MR#: [id number] 1 : 1940 Acct:[id number] Age/Sex: 82 / F ADM Date: 08/20/23 Loc: PS Room: Type: [facility] Attending Dr: Magno Pichardo II, MD Ordering [...] previous ECGs available Confirmed by EARL MENENDEZ [facility], DARIUS ([id number]) on 08/20/2023 5:49:37 PM Referred By: MARINO Electronically Signed By:DARIUS CATALAN MD [facility] Transcribed By: FELA Signed By Daron Catalan MD 08/20/23 1749 Normal [facility] Eosinophils Auto (Bld) [#/Vo l]Ordered By: Magno Pichardo on 08-20-2023 Eosinophils (Bld) [#/Vol] 0.2 10*3/uL 0.0-0.[address] [facility] Eosinophils/100 WBC Auto (Bl d)Ordered By: Magno Pichardo on 08-20-2023 Eosinophils/100 WBC (Bld) 3.5 % . [facility] Erythrocyte distribution wid th Auto (RBC) [Ratio]Ordered By: Magno Pichardo on 08-20-2023 Erythrocyte distribution width (RBC) [Ratio] 14.3 % 11.9-15.[address] [facility] Fructosamineon 08-20-2023 Fructosamine 210 umol/L Normal 0-285 [facility] Comment on above: Result Comment: Publ ished reference interval for apparently healthy subjects between age 20 and 60 is 205 - 285 umol/L and in a poorly controlled diabetic population is 228 - 563 umol/L with a mean of 396 umol/L. Performed at: - [facility] [id number] Business Development Associate: Federico Guzman PhD, Phone: [phone] PERFORMED BY: [place] [address] PATHOLOGIST COMPLIANCE ANALYST BUBBA MERIDA M.D. Performed By: #### A JOON HUMMEL #### [address] Fructosamine [Moles/volume] in Serum or PlasmaOrdered By: Magno Pichardo on 08-20-2023 Fructosamine [Moles/Vol] 210 umol/L 0-[address] [facility] Comment on above: Published reference interval for apparently healthysubjects between age 20 and 60 is 205 - 285 umol/L and in apoorly controlled diabetic population is 228 - 563 umol/Lwith a mean of 396 umol/L.Performed at: [facility] [employer] [id number] Director: Federico Guzman PhD, Phone: [phone] Glucose [Mass/volume] in Ser um or PlasmaOrdered By: Magno Pichardo on 08-20-2023 Glucose [Mass/Vol] 81 mg/dL 70-100 [facility] Comment on above: ADA recommended refe rence rangeRandom Glucose Reference Range is dependent on time and content of last meal. Glucose of more than 200 mg/dL in a nonstressed, ambulatory subject supports the diagnosis of Diabetes Mellitus. Hematocrit Auto (Bld) [Volum e fraction]Ordered By: Magno Pichardo on 08-20-2023 Hematocrit (Bld) [Volume fraction] 39.8 % 34.0-46.[address] [facility] Hemoglobin [Mass/volume] in BloodOrdered By: Magno Pichardo on 08-20-2023 Hemoglobin (Bld) [Mass/Vol] 13.5 g/dL 11.8-15.[address] [facility] Ketones Auto test strip (U) [Mass/Vol]Ordered By: Magno Pichardo on 08-20-2023 Ketones (U) [Mass/Vol] Negative Negative [facility] Laboratory - UrinalysisOrder ed By: Magno Pichardo on 08-20-2023 Hyaline casts LM Ql (Urine sed) None seen [LPF] 0-[address] [facility] Leukocytes [#/volume] correc alvaro for nucleated erythrocytes in Blood by Automated counOrdered By: Magno Pichardo on 08-20-2023 WBC corrected for nucl RBC Auto (Bld) [#/Vol] 6.6 10*3/uL 3.8-11.[address] [facility] Lymphocytes Auto (Bld) [#/Vo l]Ordered By: Magno Pichardo on 08-20-2023 Lymphocytes (Bld) [#/Vol] 1.3 10*3/uL 1.00-4.[address] [facility] Lymphocytes/100 WBC Auto (Bl d)Ordered By: Magno Pichardo on 08-20-2023 Lymphocytes/100 WBC (Bld) 20.0 % . [facility] MCH Auto (RBC) [Entitic mass ]Ordered By: Magno Pichardo on 08-20-2023 MCH (RBC) [Entitic mass] 33.2 pg 24.7-34.[address] [facility] MCHC Auto (RBC) [Mass/Vol]Or dered By: Magno Pichardo on 08-20-2023 MCHC (RBC) [Mass/Vol] 34.1 g/dL 32.0-35.[address] [facility] MCV Auto (RBC) [Entitic vol] Ordered By: Magno Pichardo on 08-20-2023 MCV (RBC) [Entitic vol] 97.4 fL 80-[address] [facility] Monocytes Auto (Bld) [#/Vol] Ordered By: Magno Pichardo on 08-20-2023 Monocytes (Bld) [#/Vol] 0.6 10*3/uL 0.0-0.[address] [facility] Monocytes/100 WBC Auto (Bld) Ordered By: Magno Pichardo on 08-20-2023 Monocytes/100 WBC (Bld) 9.3 % . [facility] Neutrophils Auto (Bld) [#/Vo l]Ordered By: Magno Pichardo on 08-20-2023 Neutrophils (Bld) [#/Vol] 4.4 10*3/uL 1.8-7.[address] [facility] Neutrophils/100 WBC Auto (Bl d)Ordered By: Magno Pichardo on 08-20-2023 Neutrophils/100 WBC (Bld) 66.1 % . [facility] Nitrite Test strip Ql (U)Ord ered By: Magno Pichardo on 08-20-2023 Nitrite Ql (U) Negative Negative [facility] No Panel InformationOrdered By: Magno Pichardo on 08-20-2023 Estimated GFR (CKD-EPI) > 60.0 mL/Min [facility] Creatinine Clearance (Chem N/A [facility] Nucleated erythrocytes [Pres ence] in Blood by Automated countOrdered By: Magno Pichardo on 08-20-2023 Nucleated RBC Auto Ql (Bld) 0.1 /100{WBC} 0-0.[address] [facility] PST Type and Screenon 2023 ABO and Rh group Nom (Bld) Blood group O Rh(D) positive Normal [facility] Comment on above: Order Comment: Date of Surgery: [id number] Result Comment: PERF ORMED BY: [facility] [address] [place] [address] PATHOLOGIST COMPLIANCE ANALYST BUBBA MERIDA M.D. Platelet mean volume Auto (B ld) [Entitic vol]Ordered By: Magno Pichardo on 08-20-2023 Platelet mean volume (Bld) [Entitic vol] 8.4 fL 6.3-10.[address] [facility] Platelets Auto (Bld) [#/Vol] Ordered By: Magno Pichardo on 08-20-2023 Platelets (Bld) [#/Vol] 326 10*3/uL 150-[address] [facility] Potassium [Moles/volume] in Serum or PlasmaOrdered By: Magno Pichardo on 08-20-2023 Potassium [Moles/Vol] 3.9 mmol/L 3.5-5.[address] [facility] Protein Auto test strip (U) [Mass/Vol]Ordered By: Magno Pichardo on 08-20-2023 Protein (U) [Mass/Vol] Negative Negative [facility] RBC Auto (Bld) [#/Vol]Ordere d By: Magno Pichardo on 08-20-2023 RBC (Bld) [#/Vol] 4.08 10*6/uL 3.60-5.00 [facility] Serum or plasma anion gap de terminationOrdered By: Magno Pichardo on 08-20-2023 Anion gap [Moles/Vol] 10.6 mmol/L 6.0-15.0 [facility] Sodium [Moles/volume] in Ser um or PlasmaOrdered By: Magno Pichardo on 08-20-2023 Sodium [Moles/Vol] 137 mmol/L 136-145 [facility] Specific gravity Auto test s trip (U) [Rel density]Ordered By: Magno Pichardo on 08-20-2023 Specific gravity (U) [Rel density] 1.008 1.001-1.[address] [facility] Squamous epithelial cells de tection in urine sediment by light microscopyOrdered By: Magno Pichardo on 08-20-2023 Epithelial cells.squamous LM Ql (Urine sed) 0-1 [HPF] 0-[address] [facility] Urea nitrogen [Mass/volume] in Serum or PlasmaOrdered By: Magno Pichardo on 08-20-2023 Urea nitrogen [Mass/Vol] 19 mg/dL 7-[address] [facility] Urine Cultureon 08-20-2023 Bacteria identified Cx Nom (U) <10,000 colonies/ml mixed bacterial skin contaminants including mixed gram negative bacilli - 2 Days PERFORMED BY: [place] [address] PATHOLOGIST COMPLIANCE ANALYST BUBBA MERIDA M.D. Normal [facility] Comment on above: Performed By: #### A DDONUAPLUS, CUU #### [address] Urine bacteria detection by automated methodOrdered By: Magno Pichardo on 08-20-2023 Bacteria Auto Ql (U) None seen None Seen [facility] Urine clarity by refractomet ry automatedOrdered By: Magno Pichardo on 08-20-2023 Clarity Refractometry automated (U) Clear Clear [facility] Urine culture routineOrdered By: Magno Pichardo on 08-20-2023 Bacteria identified Cx Nom (U) bacilli - [address] [facility] Urine glucose measurement by automated test strip (mass/volume)Ordered By: Magno Pichardo on 08-20-2023 Glucose Auto test strip (U) [Mass/Vol] Normal mg/dL Normal [facility] Urine hemoglobin detection b y automated test stripOrdered By: Magno Pichardo on 08-20-2023 Hemoglobin Auto test strip Ql (U) Negative Negative [facility] Urine leukocyte esterase det ection by automated test stripOrdered By: Magno Pichardo on 08-20-2023 Leukocyte esterase Auto test strip Ql (U) 3+ Negative [facility] Urobilinogen Auto test strip (U) [Mass/Vol]Ordered By: Magno Pichardo on 08-20-2023 Urobilinogen (U) [Mass/Vol] Normal mg/dL Normal [facility] WBC Auto (Bld) [#/Vol]Ordere d By: Magno Pichardo on 08-20-2023 WBC (Bld) [#/Vol] 6.6 10*3/uL 3.8-11.6 [facility] XR femur RT 2V*on 08-20-2023 XR femur RT 2V* [facility] [place] [address] [place] [address] XRay Report Signed Patient: Ashley Brown MR#: [id number] 1 : 1940 Acct:[id number] Age/Sex: 82 / F ADM Date: 08/20/23 Loc: [facility] Room: Type[facility] Attending Dr: Magno Pichardo II, MD Copies to: Magno Pichardo MD Ordering Provider: Magno Pichardo MD Date of Service: 08/20/23 XR/XR tibia fibula RT 2V*: M17.11 - Unilateral primary osteoarthritis, right knee ([id number]) XR/XR femur RT 2V*: M17.11 - Unilateral [...] Richard Oliver M.D.08/20/2023 4:40 PM Dictation Location: [address] By: [facility] 08/20/23 1640 Dictated By: Richard Oliver DO 08/20/23 1637 Signed By: 08/20/23 1640 Normal [facility] pH Auto test strip (U)Ordere d By: Magno Pichardo on 08-20-2023 pH (U) 6.0 [pH] 5.0-9.[address] [facility] B-Type Natriuretic Peptideon 08-01-2023 B-Type Natriuretic Peptide 949.0 pg/mL <=1800.0 pg/mL [facility] Other Basic Metabolic Panelon Anion gap [Moles/Vol] 12.0 mmol/L No [facility] [employer] Other Calcium [Mass/Vol] 9.8504607 mg/dL Normal 8.5-10 .1 mg/dL [facility] Other Chloride [Moles/Vol] 101 mmol/L Normal 98-107 mmol/L [facility] Other CO2 [Moles/Vol] 26.95948229 mmol/L Normal 21.0-3 2.0 mmol/L [facility] Other Creatinine [Mass/Vol] 0.58394854 mg/dL Normal 0. 55-1.02 mg/dL [facility] Other Glucose [Mass/Vol] 86 mg/dL Normal 74-106 mg/dL [facility] Other Potassium [Moles/Vol] 3.14321243 mmol/L Normal 3 .5-5.1 mmol/L [facility] Other Sodium [Moles/Vol] 136 mmol/L Normal 136-145 mmol/L [facility] Other Urea nitrogen [Mass/Vol] 16.4556954 mg/dL Normal 7.0-18.0 mg/dL [facility] Other Urea nitrogen/Creatinine [Mass ratio] 17.2 mg/mg [facility] [facility] [employer] Other Basic Metabolic Panel see note Nor [facility] Other Basic Metabolic Panel 58 Low >=60 [facility] Other Basic Metabolic Panel >60 >=60 [facility] [employer] Other A1C with Estimated Average G luon 07-23-2023 Glucose [Mass/Vol] 111 mg/dL Normal [facility] Comment on above: Order Comment: Reaso n for Exam Primary osteoarthritis of right knee;Other [employer] (curren Result Comment: PERF ORMED BY: [place] [address] PATHOLOGIST COMPLIANCE ANALYST BUBBA MERIDA M.D. Performed By: #### C UMRSA, HGB, ALB, A1C WTH eA, [id number] #### [address] #### NICOTINE #### [facility] , HbA1c (Bld) [Mass fraction] 5.5 % Normal 4.3-5.6 [facility] Comment on above: Order Comment: Reaso n for Exam Primary osteoarthritis of right knee;Other senior care (curren Result Comment: Incr eased risk for diabetes: 5.7 - 6.4 diabetes: >6.4 glycemic control for adults with diabetes: <7.0 Performed By: #### C UMRSA, HGB, ALB, A1C WTH eA, [id number] #### [facility] [address] [place] [address] [place] #### NICOTINE #### [facility] , Albumin Levelon 07-23-2023 Albumin [Mass/Vol] 4.1 g/dL Normal 3.5-5.7 [facility] Comment on above: Order Comment: Reaso n for Exam Primary osteoarthritis of right knee;Other [employer] (curren Performed By: #### C UMRSA, HGB, ALB, A1C WTH eA, [id number] #### [place] [address] [place] #### NICOTINE #### [facility] , Albumin [Mass/volume] in Ser um or Plasma by Bromocresol green (BCG) dye binding methoOrdered By: Magno Pichardo on 07-23-2023 Albumin BCG dye [Mass/Vol] 4.1 g/dL 3.5-5.[address] [facility] Cotinine [Mass/volume] in Se rum or PlasmaOrdered By: Magno Pichardo on 07-23-2023 Cotinine [Mass/Vol] <1.0 ng/mL . [facility] Comment on above: This test was develo ped and its performance characteristicsdetermined by [facility]. It has not been cleared orapproved by the Food and Drug Administration.Cotinine levels greater than 20.0 are consistent with theuse of tobacco or tobacco cessation products.Performed at: [address] [id number] Director: Amilcar Baltazar MD, Phone: [phone] Glucose mean value [Mass/vol ume] in Blood Estimated from glycated hemoglobinOrdered By: Magno Pichardo on 07-23-2023 Average glucose Estimated from glycated hemoglobin (Bld) [Mass/Vol] 111 mg/dL [facility] Hemoglobinon 07-23-2023 Hemoglobin (Bld) [Mass/Vol] 13.4 g/dL Normal 11.8-15.4 [facility] Comment on above: Order Comment: Reaso n for Exam Primary osteoarthritis of right knee;Other senior care (curren Result Comment: PERF ORMED BY: [place] [address] PATHOLOGIST COMPLIANCE ANALYST BUBBA MERIDA M.D. Performed By: #### C UMRSA, HGB, ALB, A1C WTH eA, [id number] #### [place] [address] [place] #### NICOTINE #### [facility] , Hemoglobin A1c percentageOrd ered By: Magno Pichardo on 07-23-2023 HbA1c (Bld) [Mass fraction] 5.5 % 4.3-5.[address] [facility] Comment on above: Increased risk for d iabetes: 5.7 - 6.4diabetes: >6.4glycemic control for adults with diabetes: <7.0 Hemoglobin [Mass/volume] in BloodOrdered By: Magno Pichardo on 07-23-2023 Hemoglobin (Bld) [Mass/Vol] 13.4 g/dL 11.8-15.[address] [facility] MRSA Cultureon 07-23-2023 MRSA Culture Reason for Exam Prim jairo osteoarthritis of right knee;Other [employer] (curren Nasal Reason for Exam: Primary osteoarthritis of right knee;Other [employer] (curren : Nasal No MRSA Isolated 2 Days PERFORMED BY: [place] [address] PATHOLOGIST COMPLIANCE ANALYST BUBBA MERIDA M.D. Normal [facility] Comment on above: Performed By: #### A JOON HUMMEL #### [address] Nicotine [Mass/volume] in Se rum or PlasmaOrdered By: Magno Pichardo on 07-23-2023 Nicotine [Mass/Vol] <1.0 ng/mL . [facility] Comment on above: This test was develo ped and its performance characteristicsdetermined by [facility]. It has not been cleared orapproved by the Food and Drug Administration.Nicotine levels greater than 2.0 are consistent with theuse of tobacco or tobacco cessation products. Nicotine/Cotinine Bloodon Cotinine, Blood <1.0 Normal . [facility] Comment on above: Order Comment: Reaso n for Exam Primary osteoarthritis of right knee;Other [employer] (curren Result Comment: This test was developed and its performance characteristics determined by [facility]. It has not been cleared or approved by the Food and Drug Administration. Cotinine levels greater than 20.0 are consistent with the use of tobacco or tobacco cessation products. Performed at: [address] [id number] Business Development Associate: Amilcar Baltazar MD, Phone: [phone] PERFORMED BY: [address] [address] PATHOLOGIST COMPLIANCE ANALYST BUBBA MERIDA M.D. Performed By: #### A DDONUAPLUS, CUU #### [address] Nicotine, Blood <1.0 Normal . [facility] Comment on above: Order Comment: Reaso n for Exam Primary osteoarthritis of right knee;Other senior care (curren Result Comment: This test was developed and its performance characteristics determined by [facility]. It has not been cleared or approved by the Food and Drug Administration. Nicotine levels greater than 2.0 are consistent with the use of tobacco or tobacco cessation products. Performed By: #### A DDONUAPLUS, CUU #### [address] Vitamin D 25 Hydroxy Totalon 07-23-2023 Vitamin D 25 Hydroxy Total 45.5 ng/mL Normal 30-100 [facility] Comment on above: Order Comment: Reaso n for Exam Primary osteoarthritis of right knee;Other [employer] (curren Result Comment: HEATH MIN D STATUS 25(OH)VITAMIN D RANGE (ng/mL) Deficient <20 Insufficient 20 to <30 Sufficient 30 to 100 Reference: Joanne Johnston, Jayjay ESPOSITO, et al. Evaluation,treatment, and prevention of vitamin D deficiency; an Endocrine Society clinical practice guideline. JCEM. 2010; 96(7):1911-30. PERFORMED BY: [place] [address] PATHOLOGIST COMPLIANCE ANALYST BUBBA MERIDA M.D. Performed By: #### C UMRSA, HGB, ALB, A1C WTH eA, [id number] #### [address] #### NICOTINE #### [facility] , Vitamin D+Metabolites [Mass/ volume] in Serum or PlasmaOrdered By: Magno Pichardo on 07-23-2023 Vitamin D+Metabolites [Mass/Vol] 45.5 ng/mL 30-[address] [facility] Comment on above: VITAMIN D STATUS [...] (Unsp spec) No MRSA Isolated 2 Days [facility] MRSA isol Org specific cx Ql (Unsp spec) No MRSA Isolated 2 Days [facility] XR pelvis 1-2Von 05-21-2023 XR pelvis 1-2V [facility] [place] [address] [place] [address] XRay Report Signed Patient: Ashley Brown MR#: [id number] 1 : 1940 Acct:[id number] Age/Sex: 82 / F ADM Date: 05/21/23 Loc: [facility] Room: [facility] Attending Dr: Magno Pichardo II, MD Copies to: Magno Pichardo MD Ordering Provider: Magno Pichardo MD Date of Service: 05/21/23 XR/XR knee LT 3V - NOT FOR ER USE: Acute pain of left knee ([id number]) XR/XR pelvis 1-2V: Acute pain of left knee ([id number]) XR/XR knee RT 4V*: Acute pain of [...] view. Mild lateral subluxation. No joint effusion. Mlli-of-lwza contact the medial compartment degenerative change. Mild [...] Richard Oliver M.D.05/21/2023 2:01 PM Dictation Location: [place] [address] Transcribed By: [facility] 05/21/23 1401 Dictated By: Richard Oliver DO 05/21/23 1356 Signed By: 05/21/[address] [facility] Office Visiton 05-14-2023 Follow-up visit [id number] Ashley Brown 1940 F Date Provider Department Center 05/14/2023 JEREMIAS JONES [facility] Family History Problem Relation Age of Onset Coronary artery disease Father Other Father Family Status - Relation Status Age at Father Level of Service:21737 [facility] OFFICE/OUTPATIENT ESTABLISHED LOW MDM 20-29 MIN Reason for Visit and Comments: Follow-up [[id number]] - 6 months Normal [facility] CBC AUTO DIFFon 10-31-2022 BASO # 0.1 103/ul Normal 0.0-0.1 [facility] Comment on above: Performed By: #### C BC #### [facility] [address] [address] [address] Charan Ariza Basophils/100 WBC (Bld) 1.7 % Normal 0.2-2.0 [facility] Comment on above: Performed By: #### C BC #### [facility] [address] [address] [address] Charan Ariza EO # 0.3 103/ul Normal 0.0-0.7 [facility] Comment on above: Performed By: #### C BC #### [facility] [address] [address] [address] Charan Ariza Eosinophils/100 WBC (Bld) 6.0 % Normal 0.9-7.0 [facility] Comment on above: Performed By: #### C BC #### [facility] [address] [address] [address] Charan Ariza Erythrocyte distribution width (RBC) [Ratio] 12.5 % Normal 11.0-15.0 [facility] Comment on above: Performed By: #### C BC #### [facility] [address] [place] [address] Dr. Charan Ariza Hematocrit (Bld) [Volume fraction] 42.6 % Normal 36.0-48.0 [facility] Comment on above: Performed By: #### C BC #### [facility] [address] [place] [address] Dr. Charan Ariza Hemoglobin (Bld) [Mass/Vol] 13.7 g/dL Normal 12.0-16.0 [facility] Comment on above: Performed By: #### C BC #### [facility] [address] [place] [address] Dr. Charan Ariza IG # 0.01 10e3/ul Normal 0.00-0.03 [facility] Comment on above: Performed By: #### C BC #### [facility] [address] [place] [address] Dr. Charan Ariza IG % 0.2 % Normal 0.0-0.5 [facility] [place] [facility] Comment on above: Performed By: #### C BC #### [facility] [address] [place] [address] Dr. Charan Ariza LYMPH # 1.5 103/ul Normal 1.2-3.8 [facility] [place] [facility] Comment on above: Performed By: #### C BC #### [facility] [address] [place] [address] Dr. Charan Ariza Lymphocytes/100 WBC (Bld) 28.9 % Normal 20.5-60.0 [facility] [place] [facility] Comment on above: Performed By: #### C BC #### [facility] [address] [place] [address] Dr. Charan Ariza MANUAL DIFF REQ NO Normal [facility] Comment on above: Performed By: #### C BC #### [facility] [address] [place] [address] Dr. Charan Ariza MCH (RBC) [Entitic mass] 31.9 pg Normal 26.7-34.0 [facility] [place] [facility] Comment on above: Performed By: #### C BC #### [facility] [address] [address] [address] Charan Ariza MCHC (RBC) [Mass/Vol] 32.2 g/dL Normal 29.9-35.2 [facility] [place] [facility] Comment on above: Performed By: #### C BC #### [facility] [address] [address] [address] Charan Ariza MCV (RBC) [Entitic vol] 99.3 fL Critically high 81.0-99.0 [facility] [place] [facility] Comment on above: Performed By: #### C BC #### [facility] [address] [address] [address] Charan Ariza MONO # 0.4 103/ul Normal 0.3-0.8 [facility] [place] [facility] Comment on above: Performed By: #### C BC #### [facility] [address] [place] [address] Dr. Charan Ariza Monocytes/100 WBC (Bld) 7.8 % Normal 1.7-12.0 [facility] [place] [facility] Comment on above: Performed By: #### C BC #### [facility] [address] [place] [address] Dr. Charan Ariza NEUT # 2.9 103/ul Normal 1.4-6.5 [facility] [place] [facility] Comment on above: Performed By: #### C BC #### [facility] [address] [place] [address] Dr. Charan Ariza Neutrophils/100 WBC (Bld) 55.4 % Normal 43.0-75.[address] [facility] Comment on above: Performed By: #### C BC #### [facility] [address] [address] [address] Charan Ariza Platelet mean volume (Bld) [Entitic vol] 10.4 fL Normal 9.5-13.5 [facility] [place] [facility] Comment on above: Performed By: #### C BC #### [facility] [address] [place] [address] Dr. Charan Ariza PLT 326 103/ul Normal 150-[address] [facility] Comment on above: Performed By: #### C BC #### [facility] [address] [address] [address] Charan Ariza RBC 4.29 106/ul Normal 4.20-5.40 [facility] [place] [facility] Comment on above: Performed By: #### C BC #### [facility] [address] [address] [address] Charan Ariza WBC 5.3 103/ul Normal 4.0-11.0 [facility] [place] [facility] Comment on above: Performed By: #### C BC #### [facility] [address] [address] [address] Charan Ariza LIPID PROFILEon 10-31-2022 CHOL-HDL RATIO NORM SEE BELOW Normal [facility] Comment on above: Result Comment: 3.3 - 4.4 LOW RISK 4.4 - 7.1 AVERAGE RISK 7.1 - 11.0 MODERATE RISK >11.0 HIGH RISK Performed By: #### A LT, BMP, LIPID #### [facility] [address] [place] [address] Dr. Charan Ariza Cholesterol [Mass/Vol] 180 mg/dL Normal <=200 [facility] [place] [facility] Comment on above: Performed By: #### A LT, BMP, LIPID #### [facility] [address] [place] [address] Dr. Charan Ariza Cholesterol in HDL [Mass/Vol] 75 mg/dL Critically high 40-60 [facility] [place] [facility] Comment on above: Performed By: #### A LT, BMP, LIPID #### [facility] [address] [address] [address] Charan Ariza Cholesterol in LDL [Mass/Vol] 77.4 mg/dL Normal [facility] [place] [facility] Comment on above: Performed By: #### A LT, BMP, LIPID #### [facility] [address] [place] [address] Dr. Charan Ariza Cholesterol.total/Cho lesterol in HDL [Mass ratio] 2.4 {ratio} Normal [facility] [place] [facility] Comment on above: Performed By: #### A LT, BMP, LIPID #### [facility] [address] [place] [address] Dr. Charan Ariza HDL NORMAL > or = 60 mg/dl - LO W CARDIOVASCULAR RISK <40 mg/dl - HIGH CARDIOVASCULAR RISK Normal [facility] [place] [facility] Comment on above: Performed By: #### A LT, BMP, LIPID #### [facility] [address] [place], [place] [address] Dr. Charan Ariza LDL CALC NORMAL SEE BELOW Normal [facility] Comment on above: Result Comment: <100 mg/dl OPTIMAL 100 - 129 mg/dl NEAR OR ABOVE OPTIMAL 130 - 159 mg/dl BORDERLINE HIGH 160 - 189 mg/dl HIGH >190 mg/dl VERY HIGH Performed By: #### A LT, BMP, LIPID #### [facility] [address] [place], [place] [address] Dr. Charan Ariza Triglyceride [Mass/Vol] 138 mg/dL Normal <=150 [facility] [place] [facility] Comment on above: Performed By: #### A LT, BMP, LIPID #### [facility] [address] [place], [place] [address] Dr. Charan Ariza VLDL CALC 27.6 mg/dL Normal [facility] Comment on above: Performed By: #### A LT, BMP, LIPID #### [facility] [address] [place], [place] [address] Dr. Charan Ariza NM STRESS/REST MULTIon 10-31 NM STRESS/REST MULTI Patient: KEVIN BROWN Exam Date: 10/31/2022 : 1940 Gender:F Ordering : DR ODELL HARRINGTON D.O. Admission #: [id number] Family : Order #: [id number] CLICK HERE TO VIEW EXAM RADIOLOGY REPORT [...] MD on 10/31/2022 at 14:41 Normal [facility] PROF CHEM 8 (BAS METB)on Anion gap [Moles/Vol] 13.8 mmol/L Normal [facility] Comment on above: Performed By: #### A LT BMP, LIPID #### [facility] [address] [place] [address] Dr. Charan Ariza Calcium [Mass/Vol] 9.2 mg/dL Normal 8.5-10.1 [facility] Comment on above: Performed By: #### A LT BMP, LIPID #### [facility] [address] [place] [address] Dr. Charan Ariza Chloride [Moles/Vol] 105 mmol/L Normal 98-107 [facility] [place] [facility] Comment on above: Performed By: #### A LT, BMP, LIPID #### [facility] [address] [place] [address] Dr. Charan Ariza CO2 [Moles/Vol] 25.4 mmol/L Normal 21.0-32.0 [facility] Comment on above: Performed By: #### A LT, BMP, LIPID #### [facility] [address] [place] [address] Dr. Charan Ariza Creatinine [Mass/Vol] 0.95 mg/dL Normal 0.55-1.02 [facility] [place] [facility] Comment on above: Performed By: #### A LT, BMP, LIPID #### [facility] [address] [address] [address] Charan Ariza EGFR-AF SYRIAN >60 Normal >=60 [facility] Comment on above: Performed By: #### A LT, BMP, LIPID #### [facility] [address] [address] [address] Charan Ariza EGFR-NON AF SYRIAN 57 mL/min/1.73m2 Critically low >=60 [facility] [place] [facility] Comment on above: Performed By: #### A LT, BMP, LIPID #### [facility] [address] [place] [address] Dr. Charan Ariza Glucose [Mass/Vol] 93 mg/dL Normal 74-106 [facility] Comment on above: Performed By: #### A LT, BMP, LIPID #### [facility] [address] [place] [address] Dr. Charan Ariza Potassium [Moles/Vol] 4.2 mmol/L Normal 3.5-5.1 [facility] [place] [facility] Comment on above: Performed By: #### A LT, BMP, LIPID #### [facility] [address] [place] [address] Dr. Charan Ariza Sodium [Moles/Vol] 140 mmol/L Normal 136-[address] [facility] Comment on above: Performed By: #### A LT, BMP, LIPID #### [facility] [address] [place] [address] Dr. Charan Ariza Urea nitrogen [Mass/Vol] 19.0 mg/dL Critically high 7.0-18.0 [facility] [place] [facility] Comment on above: Performed By: #### A LT, BMP, LIPID #### [facility] [address] [place] [address] Dr. Charan Ariza Urea nitrogen/Creatinine [Mass ratio] 20.0 mg/mg Normal [facility] [place] [facility] Comment on above: Performed By: #### A LT, BMP, LIPID #### [facility] [address] [place] [address] Dr. Charan Ariza SGPTon 10-31-2022 ALT [Catalytic activity/Vol] 29 U/L Normal 14-[address] [facility] Comment on above: Performed By: #### A LT, BMP, LIPID #### [facility] [address] [address] [address] Charan Ariza ECHOCARDIO M/2D COMPLETEon 1 07-08-2021 ECHOCARDIO M/2D COMPLETE Patient: ASHLEY BROWN Exam Date: 05/08/2022 : 1940 Gender:F Ordering : DR JEREMIAS MCGUIRE M.D. Admission #: [id number] Family : DR ODELL HARRINGTON DThomas Order #: [id number] CLICK HERE TO VIEW EXAM ECHOCARDIOGRAM REPORT [...] Mcguire M.D. on 05/08/2022 at 18:26 Normal [facility] [place] [facility] XR LSPINE 2_3 VIEWSon 2021 [...] by: TARIK MONROE Date: 2022-01-25 17:51 Normal [facility] [place] [facility] CHEST AND LATERALon 03-20-20 CHEST AND LATERAL [facility] Department of Radiology [address] [place] [id number] Patient Name: ASHLEY BROWN : 1940 [...] above Electronically signed: Lashonda Traore. Transcribed by: [email or web address], User Resident: Electronically Signed by: LASHONDA TRAORE @ 03/21/2021 09:38 AM Normal [facility] Comment on above: Order Comment: evalu ate Vital Signs Date Time Vital Sign Value Performing Clinician Facility 09-19-2023 11:38-0400 Body height 142.24 cm DO Odell Ball Work Phone: [facility] 09-19-2023 11:38-0400 Body mass index (BMI) [Ratio] 34 kg/m2 DO Odell Ball Work Phone: [facility] 09-19-2023 11:38-0400 Body weight 68.71 kg DO Odell Ball Work Phone: [facility] 09-19-2023 11:38-0400 Diastolic blood pressure 76 mm[Hg] DO Odell Ball Work Phone: [facility] 09-19-2023 11:38-0400 Systolic blood pressure 198 mm[Hg] DO Odell Ball Work Phone: [facility] 09-15-2023 08:40-0400 Body temperature 97.8 [degF] DO Odell Ball Work Phone: [facility] 09-15-2023 08:40-0400 Diastolic blood pressure 78 mm[Hg] DO Odell Ball Work Phone: [facility] 09-15-2023 08:40-0400 Heart rate 70 /min DO Odell Ball Work Phone: [facility] 09-15-2023 08:40-0400 Respiratory rate 18 /min DO Odell Ball Work Phone: [facility] 09-15-2023 08:40-0400 SaO2% (BldA) [Mass fraction] 100 % DO Odell Ball Work Phone: [facility] 09-15-2023 08:40-0400 Systolic blood pressure 122 mm[Hg] DO Odell Ball Work Phone: [facility] 09-14-2023 06:00-0400 Body weight 70.8 kg DO Odell Ball Work Phone: [facility] 09-02-2023 15:11-0500 Body height 147.32 cm DO Odell Ball Work Phone: [facility] 09-02-2023 11:34-0500 Body temperature 97.4 [degF] DO Odell Ball Work Phone: [facility] 09-02-2023 11:34-0500 Diastolic blood pressure 65 mm[Hg] DO Odell Ball Work Phone: [facility] 09-02-2023 11:34-0500 Heart rate 62 /min DO Odell Ball Work Phone: [facility] 09-02-2023 11:34-0500 Respiratory rate 18 /min DO Odell Ball Work Phone: [facility] 09-02-2023 11:34-0500 SaO2% (BldA) [Mass fraction] 97 % DO Odell Ball Work Phone: [facility] 09-02-2023 11:34-0500 Systolic blood pressure 139 mm[Hg] DO Odell Ball Work Phone: [facility] 09-01-2023 13:46-0500 Inhaled oxygen flow rate 8 L/min DO Odell Ball Work Phone: [facility] 09-01-2023 11:37-0500 Body height 147.32 cm DO Odell Ball Work Phone: [facility] 09-01-2023 11:37-0500 Body mass index (BMI) [Ratio] 30.9 kg/m2 DO Odell Ball Work Phone: [facility] 09-01-2023 11:37-0500 Body weight 67 kg DO Odell Ball Work Phone: [facility] 08-20-2023 13:05-0500 Body height 147.32 cm DO Odell Ball Work Phone: [facility] 08-20-2023 13:05-0500 Body mass index (BMI) [Ratio] 30.7 kg/m2 DO Odell Ball Work Phone: [facility] 08-20-2023 13:05-0500 Body weight 66.67 kg DO Odell Ball Work Phone: [facility] 08-01-2023 11:00-0500 Body height 147.32 cm Odell Ball Other [facility] 08-01-2023 11:00-0500 Body mass index (BMI) [Ratio] 30.85 kg/m2 Odell Ball Other [facility] Other 08-01-2023 11:00-0500 Body weight 66.95 kg Odell Ball Other [facility] 08-01-2023 11:00-0500 Diastolic blood pressure 86 mm[Hg] Odell Ball Other [facility] 08-01-2023 11:00-0500 Respiratory rate 12 /min Odell Ball Other [facility] Other 08-01-2023 11:00-0500 Systolic blood pressure 135 mm[Hg] Odell Ball Other [facility] 07-09-2023 12:45-0500 Body height 147.32 cm Magno Goshen II Other [facility] 07-09-2023 12:45-0500 Body mass index (BMI) [Ratio] 31.1 kg/m2 Magno Goshen II Other [facility] Other 07-09-2023 12:45-0500 Body weight 67.5 kg Magno Goshen II Other [facility] Other 07-09-2023 12:45-0500 Body weight 67.49 kg DO Odell Ball Work Phone: [facility] 06-06-2023 11:30-0500 Body height 147.32 cm Odell Ball Other [facility] 06-06-2023 11:30-0500 Body mass index (BMI) [Ratio] 29.88 kg/m2 Odell Ball Other [facility] Other 06-06-2023 11:30-0500 Body temperature 97.3 [degF] Odell Ball Other [facility] Other 06-06-2023 11:30-0500 Body weight 64.86 kg Odell Ball Other [facility] 06-06-2023 11:30-0500 Diastolic blood pressure 81 mm[Hg] Odell Ball Other [facility] 06-06-2023 11:30-0500 Respiratory rate 16 /min Odell Ball Other [facility] Other 06-06-2023 11:30-0500 Systolic blood pressure 138 mm[Hg] Odell Ball Other [facility] 05-21-2023 10:30-0500 Body height 147.32 cm Magno Goshen II Other [facility] Other 05-21-2023 10:30-0500 Body mass index (BMI) [Ratio] 31.14 kg/m2 Magno Goshen II Other [facility] Other 05-21-2023 10:30-0500 Body weight 67.59 kg Magno Marino II Other [facility] Other 05-20-2023 13:30-0500 Body height 147.32 cm Odell Ball Other [facility] Other 05-20-2023 13:30-0500 Body mass index (BMI) [Ratio] 31.64 kg/m2 Odell Ball Other [facility] Other 05-20-2023 13:30-0500 Body weight 68.68 kg Odell Ball Other [facility] Other 05-20-2023 13:30-0500 Diastolic blood pressure 77 mm[Hg] Odell Ball Other [facility] Other 05-20-2023 13:30-0500 Respiratory rate 12 /min Odell Ball Other [facility] Other 05-20-2023 13:30-0500 Systolic blood pressure 158 mm[Hg] Odell Ball Other [facility] Other 10-22-2022 15:00-0400 Body height 147.32 cm Odell Ball Other [facility] Other 10-22-2022 15:00-0400 Body mass index (BMI) [Ratio] 31.47 kg/m2 Odell Ball Other [facility] Other 10-22-2022 15:00-0400 Body weight 68.31 kg Odell Ball Other [facility] Other 10-22-2022 15:00-0400 Diastolic blood pressure 81 mm[Hg] Odell Ball Other [facility] Other 10-22-2022 15:00-0400 Respiratory rate 12 /min Odell Ball Other [facility] Other 10-22-2022 15:00-0400 Systolic blood pressure 150 mm[Hg] Odell Ball Other [facility] Other 07-24-2022 16:00-0500 Body height 147.32 cm Odell Ball Other [facility] Other 07-24-2022 16:00-0500 Body mass index (BMI) [Ratio] 31.81 kg/m2 Odell Ball Other [facility] Other 07-24-2022 16:00-0500 Body temperature 97 [degF] Odell Ball Other [facility] Other 07-24-2022 16:00-0500 Body weight 69.04 kg Odell Ball Other [facility] Other Encounters Encounter Date Encounter Type Care Provider Facility Start: 11-20-2023 End: 11-20-2023 ambulatory JEREMIAS HENRY Not Available Start: 11-19-2023 End: 11-19-2023 Patient encounter procedure DO Odell Ball Work Phone: [facility] Work Phone: Start: 11-19-2023 End: 11-19-2023 ambulatory Magno Pichardo II Facility:[facility] Start: 11-19-2023 End: 11-19-2023 Patient encounter procedure DO Odell Ball Work Phone: [facility] Start: 11-08-2023 Non-patient / Non-visit DO Alex nolan Ball Work Phone: [facility] Work Phone: Start: 11-04-2023 End: 11-04-2023 ambulatory [facility] Start: 10-23-2023 End: 10-23-2023 ambulatory ANNABELLA DAWSON Not Available Start: 10-08-2023 End: 10-08-2023 Patient encounter procedure DO Odell Ball Work Phone: [facility] Work Phone: Start: 10-08-2023 End: 10-08-2023 ambulatory Magno Pichardo II Facility:[facility] Start: 10-08-2023 End: 10-08-2023 ambulatory DO Odell Ball Work Phone: [facility] Work Phone: Start: 10-08-2023 End: 10-08-2023 Patient encounter procedure DO Odell Ball Work Phone: [facility] Start: 09-19-2023 End: 09-19-2023 Patient encounter procedure DO Odell Ball Work Phone: [facility] Work Phone: Start: 09-17-2023 Non-patient / Non-visit DO Alex nolan Ball Work Phone: [facility] Work Phone: Start: 09-13-2023 End: 09-15-2023 Non-patient / Non-visit DO Odell Ball Work Phone: [facility] Work Phone: Start: 09-11-2023 End: 09-15-2023 Non-patient / Non-visit DO Odell Ball Work Phone: [facility] Work Phone: Start: 09-10-2023 End: 09-15-2023 Non-patient / Non-visit DO Odell Ball Work Phone: [facility] Work Phone: Start: 09-03-2023 End: 09-15-2023 Non-patient / Non-visit DO Odell Ball Work Phone: [facility] Work Phone: Start: 09-03-2023 End: 09-15-2023 Non-patient / Non-visit DO Odell Ball Work Phone: [facility] Work Phone: Start: 09-02-2023 End: 09-15-2023 Evaluation and management of inpatient Elijah Mayers Facility:[facility] Start: 09-02-2023 End: 09-15-2023 Evaluation and management of inpatient DO Odell Ball Work Phone: [facility] Work Phone: Start: 09-02-2023 Non-patient / Non-visit DO Alex nolan Ball Work Phone: [facility] Work Phone: Start: 09-01-2023 Non-patient / Non-visit DO Alex nolan Ball Work Phone: [facility] Work Phone: Start: 09-01-2023 End: 09-02-2023 Evaluation and management of inpatient Magno M Marino II Facility:[facility] Start: 09-01-2023 Non-patient / Non-visit DO Alex nolan Ball Work Phone: [facility] Work Phone: Start: 08-25-2023 End: 08-25-2023 Patient encounter procedure DO Odell Ball Work Phone: [facility] Work Phone: Start: 08-22-2023 End: 08-22-2023 Patient encounter procedure DO Odell Ball Work Phone: [facility] Work Phone: Start: 08-20-2023 End: 08-20-2023 ambulatory Magno M Marino II Facility:[facility] Start: 08-20-2023 End: 08-20-2023 ambulatory DO Odell Ball Work Phone: [facility] Work Phone: Start: 08-20-2023 End: 08-20-2023 Discharged Recurring DO Odell Ball Work Phone: [facility]Physical [facility] [place] Start: 08-20-2023 Registered Recurring DO Benjam in Ball Work Phone: [facility] [place] Start: 08-20-2023 End: 08-20-2023 ambulatory DO Odell Ball Work Phone: [facility] Work Phone: Start: 08-20-2023 End: 08-20-2023 Patient encounter procedure DO Odell Ball Work Phone: [facility]-Pre-Surgical Testing Work Phone: Start: 08-20-2023 End: 08-20-2023 ambulatory DO Odell Ball Work Phone: [facility] Work Phone: Start: 08-20-2023 End: 08-20-2023 Patient encounter procedure DO Odell Ball Work Phone: [facility] Work Phone: Start: 08-01-2023 End: 08-01-2023 ambulatory Odell Ball Other [facility] Other Start: 08-01-2023 Encounter for other preprocedural examination Odell Ball [facility] Start: 08-01-2023 Office outpatient vi sit 25 minutes Odell Ball [facility] Start: 08-01-2023 Telephone encounter Odell Ball [facility] Start: 08-01-2023 End: 08-01-2023 Patient encounter procedure DO Odell Ball Work Phone: [facility]- Start: 07-23-2023 Telephone encounter Magno Pichardo II [facility] Start: 07-23-2023 End: 07-23-2023 ambulatory Magno Pichardo II [facility] Work Phone: Start: 07-23-2023 End: 07-23-2023 Patient encounter procedure DO Odell Ball Work Phone: [facility] Work Phone: Start: 07-22-2023 End: 07-23-2023 ambulatory NBA MARCELO Not Available Start: 07-09-2023 End: 07-09-2023 ambulatory Magno Pichardo II Other [facility] Other Start: 07-09-2023 Office outpatient vi sit 15 minutes Magno Goshen II [facility] Start: 07-09-2023 End: 07-09-2023 Patient encounter procedure DO Odell Ball Work Phone: [facility] Work Phone: Start: 06-06-2023 End: 06-06-2023 ambulatory Odell Ball Other [facility] Other Start: 06-06-2023 Office outpatient vi sit 15 minutes Odell Ball [facility] Start: 06-06-2023 End: 06-06-2023 Patient encounter procedure DO Odell Ball Work Phone: [facility] Work Phone: Start: 05-26-2023 End: 05-26-2023 ambulatory Odell Ball Other [facility] Other Start: 05-26-2023 Office outpatient vi sit 15 minutes Odell Ball [facility] Start: 05-26-2023 Telephone encounter Odell Ball [facility] Start: 05-21-2023 Office outpatient ne w 45 minutes Magno Mcclendonle II [facility] Start: 05-21-2023 End: 05-21-2023 ambulatory Magno Pichardo II [facility] Start: 05-21-2023 End: 05-21-2023 Patient encounter procedure DO Odell Ball Work Phone: [facility] Start: 05-21-2023 End: 05-21-2023 Patient encounter procedure DO Odell Harrington Work Phone: [facility] Work Phone: Start: 05-20-2023 End: 05-20-2023 ambulatory Odell Harrington Other [facility] Start: 05-20-2023 Office outpatient vi sit 25 minutes Odell Juany [facility] Start: 05-20-2023 Telephone encounter Odell Harrington [facility] Start: 05-20-2023 End: 05-20-2023 Patient encounter procedure DO Odell Harrington Work Phone: [facility] Work Phone: Start: 05-14-2023 End: 05-14-2023 ambulatory [facility] Start: 11-29-[address] ODELL HARRINGTON Facili ty:H1 Start: 11-19-2022 End: 11-19-2022 ambulatory NARENDRANATH LAKSHMIPATHY . Facility:H1 Start: 11-05-2022 End: 11-06-2022 ambulatory NARENDRANATH LAKSHMIPATHY . Facility:H1 Start: 10-31-2022 End: 11-01-[address] ODELL HARRINGTON Facility:[facility]1 Start: 10-22-2022 End: 10-22-2022 ambulatory Odell Harrington Other [facility] Start: 10-22-2022 Patient encounter procedure Odell Harrington [facility] Start: 10-08-2022 End: 10-08-2022 ambulatory Odell Harrington Other [facility] Start: 10-08-2022 Office outpatient vi sit 15 minutes Odell Harrington [facility] Start: 07-24-2022 End: 07-24-2022 ambulatory Odell Harrington Other [facility] Start: 07-24-2022 Office outpatient vi sit 25 minutes Odell Harrington [facility] Start: 07-12-2022 Patient encounter status Odell Harrington Other [facility] Other Start: 05-08-2022 End: 05-09-2022 ambulatory JEREMIAS MCGUIRE Facility:H1 Start: 02-04-2022 End: 03-20-[address] ODELL HARRINGTON Facility:[facility]1 Start: 01-25-2022 End: 01-26-[address] ODELL HARRINGTON Facility:H1 Procedures Date Procedure Procedure Detail Performing Clinician Start: 11-19-2023 Plain X-ray of right femur DO Odell Tanium Work Phone: Start: 11-19-2023 Plain X-ray of right tibia and right fibula DO Odell Tanium Work Phone: Start: 11-19-2023 X-ray of left knee DO B enjamin Tanium Work Phone: Start: 11-19-2023 X-ray of right knee DO Odell Tanium Work Phone: Start: 10-08-2023 X-ray of right knee DO Odell Tanium Work Phone: Start: 09-05-2023 Duplex scan of lower limb veins DO Odell Tanium Work Phone: Start: 08-20-2023 Antibody screen Magno Pichardo II Comment on above: Order Comment: Date of Surgery: [id number] Result Comment: PERF ORMED BY: [facility] [address] [place] [address] PATHOLOGIST COMPLIANCE ANALYST BUBBA MERIDA M.D. Start: 08-20-2023 Urine culture DO Benjam in Tanium Work Phone: Start: 08-20-2023 Plain X-ray of right femur DO Odell Tanium Work Phone: Start: 08-20-2023 Plain X-ray of right tibia and right fibula DO Odell Tanium Work Phone: Start: 07-23-2023 Methicillin resistan t Staphylococcus aureus culture DO Odell Tanium Work Phone: Start: 05-21-2023 X-ray of right knee DO Odell Harrington Work Phone: Start: 05-21-2023 X-ray of left knee DO B ray Ball Work Phone: 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 DO Odell Harrington Work Phone: Plan of Treatment Date Care Activity Detail Author Start: 09-15-[address] [facility] Start: 09-02-2023 Hospital admission [facility] Start: 09-02-2023 Referral to clinical pulverizing and sifting operator [facility] Start: 09-02-[address] [facility] Start: 09-01-2023 Hospital admission [facility] Start: 09-01-2023 Referral to clinical pulverizing and sifting operator [facility] Start: 09-01-2023 Referral to rehabilitation physician [facility] Start: 08-20-[address] [facility] Start: 08-20-2023 Bacteria identified in Urine by Culture [facility] Start: 08-20-2023 Urine culture Urine Culture [facility] Start: 07-23-2023 MRSA Culture MRSA Culture [facility] Comprehensive metabo lic 2000 panel - Serum or Plasma [facility] Cotinine [Mass/volum e] in Serum or Plasma [facility] Glucose measurement estimated from glycated hemoglobin [facility] Methicillin resistan t Staphylococcus aureus [Presence] in Unspecified specimen by Organism specific culture [facility] Nicotine [Mass/volum e] in Serum or Plasma [facility] Patient Education Total Knee Rep lacement (DC) [facility] Work Phone: Patient referral [facility] Work Phone: [facility] Immunizations Immunization Date Immunization Notes Care Provider Jackie gill 05-14-2023 RSV, preF3, adj, pf DO Farhad Harrington Work Phone: [facility] 04-30-2023 Flu Shot - Documentation Purposes Only Odell Harrington Other [facility] 04-23-2022 influenza, high dose seasonal, preservative-free Odell Harrington Other [facility] Other 04-23-2022 Influenza vaccine, quadrivalent, adjuvanted DO Odell Harrington Work Phone: [facility] 04-23-2022 influenza virus vaccine, split virus (incl. purified surface antigen) Odell Harrington Other [facility] Other 04-23-2022 influenza virus vaccine, unspecified formulation DO Odell Harrington Work Phone: [facility] 04-05-2021 COVID-19 Vaccine Pfi zer - Documentation Purposes Only Odell Harrington Other [facility] 03-26-2021 Fluzone QIV High-Dos e 65YR+ DO Odell Harrington Work Phone: [facility] 03-26-2021 influenza virus vaccine, split virus (incl. purified surface antigen) Odell Harrington Other [facility] Other 03-26-2021 influenza virus vaccine, unspecified formulation DO Odell Harrington Work Phone: [facility] 08-16-2020 COVID-19 Vaccine Pfi zer - Documentation Purposes Only Odell Harrington Other [facility] 07-26-2020 COVID-19 Vaccine Moderna - Documentation Purposes Only Odell Harrington Other [facility] 07-26-2020 COVID-19 Vaccine Pfi zer - Documentation Purposes Only Odell Harrington Other [facility] 03-16-2020 influenza virus vaccine, split virus (incl. purified surface antigen) Odell Harrington Other [facility] Other 03-16-2020 influenza virus vaccine, unspecified formulation DO Odell Harrington Work Phone: [facility] 03-15-2020 influenza, injectabl e, quadrivalent, preservative free DO Odell Harrington Work Phone: [facility] 04-16-2019 influenza virus vaccine, split virus (incl. purified surface antigen) Odell Harrington Other [facility] Other 04-16-2019 influenza virus vaccine, unspecified formulation DO Odell Harrington Work Phone: [facility] 04-20-2018 influenza virus vaccine, split virus (incl. purified surface antigen) Odell Harrington Other [facility] Other 04-20-2018 influenza virus vaccine, unspecified formulation DO Odell Tanium Work Phone: [facility] 04-20-2018 Seasonal trivalent influenza vaccine, adjuvanted, preservative free DO Odell Tanium Work Phone: [facility] 05-21-2017 influenza virus vaccine, split virus (incl. purified surface antigen) Odell Harrington Other [facility] Other 05-21-2017 influenza virus vaccine, unspecified formulation DO [employer] Work Phone: [facility] 05-21-2017 influenza, high dose seasonal, preservative-free DO Odell Tanium Work Phone: [facility] 04-23-2016 influenza virus vaccine, split virus (incl. purified surface antigen) Odell Harrington Other [facility] Other 04-23-2016 influenza virus vaccine, unspecified formulation DO Odell Tanium Work Phone: [facility] 04-23-2016 influenza, high dose seasonal, preservative-free DO Odell Harrington Work Phone: [facility] 05-11-2015 pneumococcal conjuga te vaccine, 13 valent Odell Harrington Other [facility] 04-27-2015 tetanus and diphther ia toxoids, adsorbed, preservative free, for adult use (5 Lf of tetanus toxoid and 2 Lf of diphtheria toxoid) Odell Harrington Other [facility] 04-12-2015 influenza, injectabl e, quadrivalent, preservative free DO Odell Harrington Work Phone: [facility] 04-12-2015 pneumococcal polysaccharide vaccine, 23 valent Odell Harrington Other [facility] 04-08-2014 tetanus and diphther ia toxoids, adsorbed, preservative free, for adult use (5 Lf of tetanus toxoid and 2 Lf of diphtheria toxoid) Odell Tanium Other [facility] 01-05-2014 zoster vaccine, live DO Noemí Harrington Work Phone: [facility] 05-10-2013 tetanus and diphther ia toxoids, adsorbed, preservative free, for adult use (5 Lf of tetanus toxoid and 2 Lf of diphtheria toxoid) Odell Tanium Other [facility] 03-04-2012 tetanus and diphther ia toxoids, adsorbed, preservative free, for adult use (5 Lf of tetanus toxoid and 2 Lf of diphtheria toxoid) Odell Tanium Other [facility] 05-11-2008 pneumococcal polysaccharide vaccine, 23 valent Odell Harrington Other [facility] 01-21-2000 tetanus toxoid, adsorbed DO Odell Harrington Work Phone: [facility] Payers Date Payer Category Payer Self-pay 1957 Medicare [id number] 2.1 [id number] 1959 Private Health Insurance [facility] [id number] 1940 Unknown [id number] 2.16.84 [id number] 1940 Unknown [id number] 2.16.84 [id number] 1942 Unknown [id number] 2.16.84 0.1.149796.3.579.2.593 1942 Unknown [id number] 2.16.84 0.1.201845.3.579.2.593 1942 Unknown [id number] 2.16.84 0.1.085004.3.579.2.593 1942 Unknown [id number] 2.16.84 0.1.611772.3.579.2.593 1942 Unknown [id number] 2.16.84 0.1.411828.3.579.2.593 1942 Unknown [id number] 2.16.84 0.1.338483.3.579.2.1259 1942 Unknown [id number] 2.16.84 0.1.673214.3.579.2.1259 1942 Unknown [id number] 2.16.84 0.1.369223.3.579.2.1259 1942 Unknown [id number] 2.16.84 0.1.718375.3.579.2.1259 1942 Unknown [id number] 2.16.84 0.1.955861.3.579.2.1259 Unknown [id number] 2.16.8 40.1.295167.3.579.2.531 Unknown [id number] 2.16.8 [id number] Social History Date Type Detail Facility Sex Assigned At [facility] Start: 08-20-2023 End: 09-03-2023 Tobacco smoking status LAIS Never smoked tobacco (finding) [facility] Start: 1940 Sex Assigned At Female [facility] NEGATED: Highlighted row [facility] Medical Equipment Procedure Code Equipment Code Equipment Origin al Text Equipment Identifier Dates Arthroplasty, knee, total, minimally invasive Orthopaedic cement, non-medicated [id number] FDA Start: 09-01-2023 Arthroplasty, knee, total, minimally invasive Uncoated knee femur prosthesis ()[id number] FDA Start: 09-01-2023 Arthroplasty, knee, total, minimally invasive Tibial insert [id number] FDA Start: 09-01-2023 Arthroplasty, knee, total, minimally invasive Polyethylene patella prosthesis ()[id number] FDA Start: 09-01-2023 Arthroplasty, knee, total, minimally invasive Knee stem ()[id number] FDA Start: 09-01-2023 Arthroplasty, knee, total, minimally invasive Uncoated knee tibia prosthesis, metallic ()[id number] FDA Start: 09-01-2023 Goals Date Patient Goal Desired Activity /State Functional Status Date Assessment Result Facility 09-15-2023 Functional status Patient at Baseline [facility] Work Phone: Mental Status Date Assessment Result Facility 09-15-2023 Cognitive function Cognitive Sta tus Patient at Baseline [facility] Work Phone: Clinical Notes 07-24-2022 to 11-04-2023 Note Date & Type Note Facility 11-04-2023 Note Cardiovascular Medic ine [facility] SUBJECTIVE No chief complaint on file. Ashley Brown is a 82 y.o. female here for follow-up of her CAD, hx CABG, HTN, HLD, carotid stenosis. History of renal artery stenosis, s/p right renal artery stenting, cath in 2011 showing 20% ISR. Post CABG she developed atrial fibrillation. We checked an event monitor and that did not show any recurrence of A. fib. HPI Since last seen she underwent knee replacement surgery 2 months ago. She was experiencing dizziness. She has cut atorvastatin in half to 10mg daily and this has improved her dizziness. She c/o feeling shaky in her hands or with standing. She c/o sternal chest discomfort in the evenings. Feels like an achiness. Has been present since her bypass surgery. She feels like her DENSON is a little worse than before but she thinks this is due to her not being as active since her knee surgery. Patient Active Problem List Diagnosis Coronary artery disease involving [place] coronary artery of [place] heart without angina pectoris Essential hypertension History [...] Dry eyes PCO (posterior capsular opacification), bilateral Past Medical History: Diagnosis Date Aortic valve [...] Hydrocodone-Acetaminophen Other Oxycodone-Acetaminophen Other Rocuronium Other ROS Cardiovascular: Positive for chest pain, dyspnea on exertion (intermittent) and leg swelling (RLE). Respiratory: Positive for cough. Musculoskeletal: Positive for arthritis and joint pain. Neurological: Positive for light-headedness. All other systems reviewed and are negative. OBJECTIVE Visit Vitals BP 128/72 (BP Location: Left arm, Patient Position: Sitting) Pulse 68 Ht 1.473 m (4' 10 ) Wt 68 kg (150 lb) SpO2 98% BMI 31.35 kg/m??? Smoking Status Never BSA 1.67 m??? Medications: Current Outpatient Medications: ALPRAZolam (Xanax) 0.25 mg tablet, Take 0.25 mg by mouth if needed at bedtime., Disp: , Rfl: aspirin 81 mg EC tablet, in the morning., Disp: , Rfl: atorvastatin (Lipitor) 20 mg tablet, TAKE 1 TABLET BY MOUTH EVERY DAY (Patient taking differently: Take 10 mg by mouth at bedtime.), Disp: 90 tablet, Rfl: 3 cholecalciferol (Vitamin D-3) 25 MCG (1000 units) tablet, Take 1 tablet by mouth in the morning., Disp: , Rfl: loratadine 10 mg capsule, 1 capsule in the morning., Disp: , Rfl: losartan (Cozaar) 25 mg tablet, TAKE 1 TABLET BY MOUTH EVERY DAY, Disp: 90 tablet, Rfl: 3 metoprolol succinate XL (Toprol-XL) 25 mg 24 hr tablet, TAKE 1 TABLET (25 MG) BY MOUTH IN THE MORNING . DO NOT CRUSH OR CHEW, Disp: 90 tablet, Rfl: 3 zolpidem (Ambien) 10 mg tablet, zolpidem 10 mg tablet TAKE 1 TABLET BY MOUTH AT BEDTIME NEEDED FOR INSOMNIA, Disp: , Rfl: Physical Exam Vitals reviewed. Constitutional: Appearance: Normal [...] Cervical back: Neck supple. Right lower leg: Edema present. Left lower leg: No edema. Comments: +1 RLE edema Skin: General: Skin is warm and dry. Neurological: General: No focal deficit present. Mental Status: She is alert and oriented to person, place, and time. Psychiatric: Mood and Affect: Mood normal. (more content not included)... [facility] 11-04-2023 Note Patient here for 6 m [...] All other systems reviewed and are negative. [facility] 09-15-2023 Discharge summary Note Date/Time September 15, 2023 12:34pm [facility] [address] [place], [place] [id number] Discharge Summary Signed Patient: Ashley Brown MR#: [id number] : 1940 Acct:[id number] Age/Sex: 82 / F Adm Date: 4 Loc: Room: [address] [place] [address]: Elijah Mayers MD Copies to: DO Elijah Wheat MD Elena Turovskaya, BATHHOUSE ATTENDANT~ Providers Date of Discharge: 09/15/23 Discharging Provider: [...] mobility. Patient will be discharged home with [facility] home health services. No additional DME is required. [...] Plan Discharge Plan Patient Disposition: [facility] Activity: Ambulate as Tolerated and May Shower [...] as needed. Your Home Health agency is [facility] ( ). They will contact you after discharge to schedule a day/time to meet with you at [facility] to establish care. You have been given [...] signed by Elijah Mayers MD> 09/15/23 1311 [facility] Work Phone: 1(538) 481-899803-18-2024 Progress note Author Magno Pichardo [facility] September 15, 2023 7:54am Note Date/Time September 15, 2023 7:[address] [facility] [address] [place] [address] Orthopedic Progress Note Signed Patient: Ashley Brown MR#: [id number] : 1940 Acct:[id number] Age/Sex: 82 / F Adm Date: 4 Loc: Room: 7H4892-3 Type: ADM IN Attending Dr: Elijah Mayers [...] Full extension to approximate 105 degrees painlessly. [facility] Ambulation: 1 Yes, [...] <Electronically signed by Magno Pichardo MD> 09/15/23 0754 [facility] Work Phone: 1(175) 689-935403-17-2024 Progress note Author Patricia Mayberry [facility] September 14, 2023 5:41pm Note Date/Time September 14, 2023 5:[address] [facility] [address] [place] [address] Hospitalist Progress Note Signed Patient: Ashley Brown MR#: [id number] : 1940 Acct:[id number] Age/Sex: 82 / F Adm Date: 4 Loc: Room: 1K2117-7 Type: ADM IN Attending Dr: Elijah Mayers [...] Vicodin] Allergy (Verified 09/02/23 15:58) Vomiting Rocuronium [place] Allergy (Unknown, Uncoded 08/20/23 14:19) breathing difficulty [...] mg 09/02/23 14:57 Bisacodyl 10 Mg Supp.Rect VA 09/01/24 14:56 DAILY PRN Constipation Diclofenac Sodium 2 gm 09/02/23 18:00 09/13/23 08:35 Diclofenac Sodium 1% Gel 100 Gm Tube TOPICAL 09/01/24 17:59 2 gm QID ERNIE Administration Docusate Sodium 283 mg 09/02/23 14:57 Docusate Enema 283 Mg/5 Ml Enema VA 09/01/24 14:56 DAILY PRN Constipation Docusate Sodium [...] PRN Constipation Prednisone 10 mg 09/03/23 09:00 03/16/24 08:31 Prednisone 10 Mg Tablet PO 09/02/24 [...] Documented By: Patricia Mayberry APRN 08/28 12/21 1280 Signed By: <Electronically signed by CHASITY Mayberry> 09/14/23 4878 [facility] Work Phone: 1(435) 207-837203-15-2024 Progress note Author Elijah Mayers [facility] September 12, 2023 2:08pm Note Date/Time September 12, 2023 2:[address] [facility] [address] [place] [address] Physiatry(Rehab) Progress Note Signed Patient: Ashley Brown MR#: [id number] : 1940 Acct:[id number] Age/Sex: 82 / F Adm Date: 4 Loc: Room: [address] [place] [address] Type: ADM IN Attending Dr: Elijah Mayers [...] She was given Compazine injection by hospitalist BOAT WORKER which 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 She does [...] Vicodin] Allergy (Verified 09/02/23 15:58) Vomiting Rocuronium [place] Allergy (Unknown, Uncoded 08/20/23 14:19) breathing difficulty [...] mg 09/02/23 14:57 Bisacodyl 10 Mg Supp.Rect VA 09/01/24 14:56 DAILY PRN Constipation Diclofenac Sodium 2 gm 09/02/23 18:00 09/12/23 08:49 Diclofenac Sodium 1% Gel 100 Gm Tube TOPICAL 09/01/24 17:59 2 gm QID ERNIE Administration Docusate Sodium 283 mg 09/02/23 14:57 Docusate Enema 283 Mg/5 Ml Enema VA 09/01/24 14:56 DAILY PRN Constipation Docusate Sodium 100 mg 09/05/23 14:06 Docusate 100 Mg Capsule PO 09/03/24 08:59 BID PRN Constipation Enoxaparin Sodium 40 mg 09/03/23 10:35 09/12/23 08:49 Enoxaparin 40 Mg/0.4 Ml Syringe SUBCUT 09/02/24 10:34 40 mg DAILY@1000 ERNIE Administration Home Med 1 each 09/02/23 23:30 Home Meds Kept In [facility] [facility] 09/01/24 23:29 PRN PRN zz.Pharmacy Note Lactulose [...] Tablet.Dr PO 09/03/24 08:59 40 mg DAILY ERNEI Administration Polyethylene Glycol 17 gm 09/05/23 14:06 [...] equipment to enhance the patient's a functional congregational Ensure adequate nutrition and hydration Sleep: No issues Pain: Continue current regimen for now Discharge plannin/18 Patient was personally seen by me, Dr. Mayers, on the day of encounter, reviewed the history and the relevant portions of the chart, including current orders, allied health and business management consultant notes, labs/imaging and performed timmons elements of exam and I formulated the plan of care and facilitated the medical decision making. I completed a substantive portion of this encounter, the medical decision makingportion of this note in its entirety, including Allied health note review, nursing note review, business management consultant note review, discussion with nursing and case management, and more than 50% of my time was spent on counseling and coordination of care, time spent 25 minutes Documented By: Elijah Mayers MD 140 Signed By: <Electronically signed by Elijah Mayers MD> 09/12/23 1408 [facility] Work Phone: 1(627) 674-225603-14-2024 Progress note Author Elijah Mayers [facility] September 11, 2023 1:21pm Note Date/Time September 11, 2023 1:[address] [facility] [address] [place] [address] Physiatry(Rehab) Progress Note Signed Patient: Ashley Brown MR#: [id number] : 1940 Acct:[id number] Age/Sex: 82 / F Adm Date: 4 Loc: Room: [address] [place] [address] Type: ADM IN Attending Dr: Elijah Mayers [...] She was given Compazine injection by hospitalist BOAT WORKER which 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 She does [...] Vicodin] Allergy (Verified 09/02/23 15:58) Vomiting Rocuronium [place] Allergy (Unknown, Uncoded 08/20/23 14:19) breathing difficulty [...] mg 09/02/23 14:57 Bisacodyl 10 Mg Supp.Rect VA 09/01/24 14:56 DAILY PRN Constipation Diclofenac Sodium 2 gm 09/02/23 18:00 09/11/23 09:38 Diclofenac Sodium 1% Gel 100 Gm Tube TOPICAL 09/01/24 17:59 Not Given QID ERNIE Docusate Sodium 283 mg 09/02/23 14:57 Docusate Enema 283 Mg/5 Ml Enema VA 09/01/24 14:56 DAILY PRN Constipation Docusate Sodium 100 mg 09/05/23 14:06 Docusate 100 Mg Capsule PO 09/03/24 08:59 BID PRN Constipation Enoxaparin Sodium 40 mg 09/03/23 10:35 09/11/23 09:38 Enoxaparin 40 Mg/0.4 Ml Syringe SUBCUT 09/02/24 10:34 40 mg DAILY@1000 ERNIE Administration Home Med 1 each 09/02/23 23:30 Home Meds Kept In Pharm[place] [facility] 09/01/24 23:29 PRN PRN zz.Pharmacy Note Lactulose [...] Administration Ondansetron HCl 4 mg 09/03/23 00:58 03/06/24 06:18 Ondansetron Odt 4 Mg Tab.Rapdis PO [...] equipment to enhance the patient's a functional congregational Ensure adequate nutrition and hydration Sleep: No issues Pain: Continue current regimen for now Discharge plannin/18 Patient was personally seen by me, Dr. Mayers, on the day of encounter, reviewed the history and the relevant portions of the chart, including current orders, allied health and business management consultant notes, labs/imaging and performed timmons elements of exam and I formulated the plan of care and facilitated the medical decision making. I completed a substantive portion of this encounter, the medical decision makingportion of this note in its entirety, including Allied health note review, nursing note review, business management consultant note review, discussion with nursing and case management, and more than 50% of my time was spent on counseling and coordination of care, time spent 26 minutes Documented By: Elijah Mayers MD [id number] Signed By: <Electronically signed by Elijah Mayers MD> 09/11/23 1321 [facility] Work Phone: 1(524) 832-134603-14-2024 Progress note Author Magno Pichardo [facility] September 11, 2023 8:23am Note Date/Time September 11, 2023 8:[address] [facility] [address] [place] [address] Orthopedic Progress Note Signed Patient: Ashley Brown MR#: [id number] : 1940 Acct:[id number] Age/Sex: 82 / F Adm Date: 4 Loc: Room: 9N7602-5 Type: ADM IN Attending Dr: Elijah Mayers [...] signed by Magno Pichardo MD> 09/11/23 0823 [facility] Work Phone: [phone]) 744-622503-13-2024 Progress note Author Elijah Mayers [facility] September 10, 2023 1:36pm Note Date/Time September 10, 2023 1:[address] [facility] [address] [place] [address] Physiatry(Rehab) Progress Note Signed Patient: Ashley Brown MR#: [id number] : 1940 Acct:[id number] Age/Sex: 82 / F Adm Date: 4 Loc: Room: 5K7504-6 Type: ADM IN Attending Dr: Elijah Mayers [...] She was given Compazine injection by hospitalist BOAT WORKER which 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 She does [...] Vicodin] Allergy (Verified 09/02/23 15:58) Vomiting Rocuronium [place] Allergy (Unknown, Uncoded 08/20/23 14:19) breathing difficulty [...] mg 09/02/23 14:57 Bisacodyl 10 Mg Supp.Rect VA 09/01/24 14:56 DAILY PRN Constipation Diclofenac Sodium 2 gm 09/02/23 18:00 09/10/23 10:49 Diclofenac Sodium 1% Gel 100 Gm Tube TOPICAL 09/01/24 17:59 2 gm QID ERNIE Administration Docusate Sodium 283 mg 09/02/23 14:57 Docusate Enema 283 Mg/5 Ml Enema VA 09/01/24 14:56 DAILY PRN Constipation Docusate Sodium 100 mg 09/05/23 14:06 Docusate 100 Mg Capsule PO 09/03/24 08:59 BID PRN Constipation Enoxaparin Sodium 40 mg 09/03/23 10:35 09/10/23 10:48 Enoxaparin 40 Mg/0.4 Ml Syringe SUBCUT 09/02/24 10:34 40 mg DAILY@1000 ERNIE Administration Home Med 1 each 09/02/23 23:30 Home Meds Kept In Pharmacy [facility] 09/01/24 23:29 PRN PRN zz.Pharmacy Note Lactulose [...] 09/04/23 09:00 09/10/23 10:47 Pantoprazole 40 Mg Tablet. PO 09/03/24 08:59 [...] equipment to enhance the patient's a functional congregational Ensure adequate nutrition and hydration Sleep: No issues Pain: Continue current regimen for now Discharge plannin/18 Patient was personally seen by me, Dr. Mayers, on the day of encounter, reviewed the history and the relevant portions of the chart, including current orders, allied health and business management consultant notes, labs/imaging and performed timmons elements of exam and I formulated the plan of care and facilitated the medical decision making. I completed a substantive portion of this encounter, the medical decision makingportion of this note in its entirety, including Allied health note review, nursing note review, business management consultant note review, discussion with nursing and case management, and more than 50% of my time was spent on counseling and coordination of care, time spent 26 minutes Documented By: Elijah Mayers MD 1332 Signed By: <Electronically signed by Elijah Mayers MD> 09/10/23 7936 [facility] Work Phone: 1([phone]) 111-826703-13-2024 Progress note Author Elijah Mayers [facility] September 10, 2023 9:32am Note Date/Time September 09, 2023 1:[address] [facility] [address] [place] [address] Physiatry(Rehab) Progress Note Signed Patient: Ashley Brown MR#: [id number] : 1940 Acct:[id number] Age/Sex: 82 / F Adm Date: 4 Loc: Room: [address] [place] [address] Type: ADM IN Attending Dr: Elijah Mayers [...] She was given Compazine injection by hospitalist BOAT WORKER which 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 She does [...] and affect appropriate. Normal speech. Objective <Heidi Moshe, BATHHOUSE ATTENDANT - Last Filed: 09/09/23 13:22> Labs 09/08/23 [...] Vicodin] Allergy (Verified 09/02/23 15:58) Vomiting Rocuronium [place] Allergy (Unknown, Uncoded 08/20/23 14:19) breathing difficulty [...] mg 09/02/23 14:57 Bisacodyl 10 Mg Supp.Rect VA 09/01/24 14:56 DAILY PRN Constipation Cefadroxil 500 mg 09/02/23 21:00 09/09/23 09:23 Cefadroxil 500 Mg Capsule PO 09/09/23 20:59 500 mg BID ERNIE Administration Diclofenac Sodium 2 gm 09/02/23 18:00 09/09/23 09:24 Diclofenac Sodium 1% Gel 100 Gm Tube TOPICAL 09/01/24 17:59 2 gm QID ERNIE Administration Docusate Sodium 283 mg 09/02/23 14:57 Docusate Enema 283 Mg/5 Ml Enema VA 09/01/24 14:56 DAILY PRN Constipation Docusate Sodium 100 mg 09/05/23 14:06 Docusate 100 Mg Capsule PO 09/03/24 08:59 BID PRN Constipation Enoxaparin Sodium 40 mg 09/03/23 10:35 09/09/23 09:24 Enoxaparin 40 Mg/0.4 Ml Syringe SUBCUT 09/02/24 10:34 40 mg DAILY@1000 ERNIE Administration Home Med 1 each 09/02/23 23:30 [place] Meds [place] [facility] 09/01/24 23:29 PRN PRN zz.Pharmacy Note Lactulose [...] 09/04/23 09:00 09/09/23 09:24 Pantoprazole 40 Mg Tablet.Dr PO 09/03/24 08:59 [...] mg QHS ERNIE Administration Assessment/Plan <Heidi Mesa, BATHHOUSE ATTENDANT - Last Filed: 09/09/23 13:22> Assessment/Plan (1) [...] equipment to enhance the patient's a functional congregational Ensure adequate nutrition and hydration Sleep: No issues Pain: Continue current regimen for now Discharge planning: Home alone in about a week. I spent 22 minutes for services, including httr-af-rsuh encounter with the patient, discussion of the case, plan of care, and exam; and zxzlonp-ke-dugj activities, such as reviewing pertinent business management consultant documentation, recent therapynotes, laboratory and radiology studies, and discussion of case with care team including physician, nursing, rehabilitation case coordinator, and therapists. More than 50 % of [...] equipment to enhance the patient's a functional congregational Ensure adequate nutrition and hydration Sleep: No issues Pain: Continue current regimen for now Discharge planning: Home alone in about a week. I spent 22 minutes for services, including bdxt-un-jjkc encounter with the patient, discussion of the case, plan of care, and exam; and zznrkog-aw-xftg activities, such as reviewing pertinent business management consultant documentation, recent therapynotes, laboratory and radiology studies, and discussion of case with care team including physician, nursing, rehabilitation case coordinator, and therapists. More than 50 % of time was spent on patient/family counseling or coordination ofcare. Patient was personally seen by me, Dr. Mayers, on the day of encounter, reviewed the history and the relevant portions of the chart, including current orders, allied health and business management consultant notes, labs/imaging and performed timmons elements of exam and I formulated the plan of care and facilitated the medical decision making. I completed a substantive portion of this encounter, the medical decision makingportion of this note in its entirety, including Allied health note review, nursing note review, business management consultant note review, discussion with nursing and [...] signed by Elijah Mayers MD> 09/10/23 0932 [facility] Work Phone: [phone]) 284-276703-11-2024 Progress note Author Elijah Mayers [facility] September 08, 2023 2:53pm Note Date/Time September 08, 2023 2:[address] [facility] [address] [place] [address] Physiatry(Rehab) Progress Note Signed Patient: Ashley Brown MR#: [id number] : 1940 Acct:[id number] Age/Sex: 82 / F Adm Date: 4 Loc: Room: [address] [place] [address] Type: ADM IN Attending Dr: Elijah Mayers [...] She was given Compazine injection by hospitalist BOAT WORKER which 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 She does [...] % (Auto) 54.1 Lymph % (Auto) 31.1 Coamo % (Auto) 9.5 Eos % (Auto) 4.0 Baso % (Auto) 1.3 Nucleat RBC Rel Count 0.1 Neut # (Auto) 4.0 Lymph # (Auto) 2.3 Coamo # (Auto) 0.7 Eos # (Auto) 0.3 [...] Vicodin] Allergy (Verified 09/02/23 15:58) Vomiting Rocuronium [place] Allergy (Unknown, Uncoded 08/20/23 14:19) breathing difficulty [...] mg 09/02/23 14:57 Bisacodyl 10 Mg Supp.Rect VA 09/01/24 14:56 DAILY PRN Constipation Cefadroxil 500 mg 09/02/23 21:00 09/08/23 09:48 Cefadroxil 500 Mg Capsule PO 09/09/23 20:59 500 mg BID ERNIE Administration Diclofenac Sodium 2 gm 09/02/23 18:00 09/08/23 14:25 Diclofenac Sodium 1% Gel 100 Gm Tube TOPICAL 09/01/24 17:59 2 gm QID ERNIE Administration Docusate Sodium 283 mg 09/02/23 14:57 Docusate Enema 283 Mg/5 Ml Enema VA 09/01/24 14:56 DAILY PRN Constipation Docusate Sodium 100 mg 09/05/23 14:06 Docusate 100 Mg Capsule PO 09/03/24 08:59 BID PRN Constipation Enoxaparin Sodium 40 mg 09/03/23 10:35 09/08/23 09:49 Enoxaparin 40 Mg/0.4 Ml Syringe SUBCUT 09/02/24 10:34 40 mg DAILY@1000 ERNIE Administration Home Med 1 each 09/02/23 23:30 Home Meds Ke[place] [facility] 09/01/24 23:29 PRN PRN zz.Pharmacy Note Lactulose [...] 09/04/23 09:00 09/08/23 09:49 Pantoprazole 40 Mg Tablet. PO 09/03/24 08:59 [...] equipment to enhance the patient's a functional congregational Ensure adequate nutrition and hydration Sleep: No issues Pain: Continue current regimen for now Discharge planning: Home alone in about a week. I spent 35 minutes for services, including bvpc-na-plww encounter with the patient, discussion of the case, plan of care, and exam; and inpjrqb-dj-alue activities, such as reviewing pertinent business management consultant documentation, recent therapynotes, laboratory and radiology studies, and discussion of case with care team including physician, nursing, rehabilitation case coordinator, and therapists. More than 50 % of time was spent on patient/family counseling or coordination ofcare. Documented By: Elijah Mayers MD 1449 Signed By: <Electronically signed by Elijah Mayers MD> 09/08/23 1453 [facility] Work Phone: [phone] Progress note Author Elijah Mayers [facility] September 08, 2023 1:35pm Note Date/Time September 05, 2023 1:[address] [facility] [address] [place] [address] Physiatry(Rehab) Progress Note Signed Patient: Ashley Brown MR#: [id number] : 1940 Acct:[id number] Age/Sex: 82 / F Adm Date: 4 Loc: Room: [address] [place] [address] Type: ADM IN Attending Dr: Elijah Mayers [...] She was given Compazine injection by hospitalist BOAT WORKER which 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 She does [...] Vicodin] Allergy (Verified 09/02/23 15:58) Vomiting Rocuronium [place] Allergy (Unknown, Uncoded 08/20/23 14:19) breathing difficulty [...] mg 09/02/23 14:57 Bisacodyl 10 Mg Supp.Rect VA 09/01/24 14:56 DAILY PRN Constipation Cefadroxil 500 mg 09/02/23 21:00 09/05/23 10:01 Cefadroxil 500 Mg Capsule PO 500 mg BID ERNIE Administration Diclofenac Sodium 2 gm 09/02/23 18:00 09/05/23 10:02 Diclofenac Sodium 1% Gel 100 Gm Tube TOPICAL 09/01/24 17:59 2 gm QID ERNIE Administration Docusate Sodium 283 mg 09/02/23 14:57 Docusate Enema 283 Mg/5 Ml Enema VA 09/01/24 14:56 DAILY PRN Constipation Docusate Sodium 100 mg 09/04/23 09:00 09/05/23 10:02 Docusate 100 Mg Capsule PO 09/03/24 08:59 Not Given BID [facility] Enoxaparin Sodium 40 mg 09/03/23 10:35 09/05/23 10:02 Enoxaparin 40 Mg/0.4 Ml Syringe SUBCUT 09/02/24 10:34 40 mg DAILY@1000 [facility] Administration Home Med 1 each 09/02/23 23:30 Home Meds Kept In Pharmacy [facility] 09/01/24 23:29 PRN PRN zz.Pharmacy Note Lactulose [...] 09/04/23 09:00 09/05/23 10:01 Pantoprazole 40 Mg Tablet.Dr PO 09/03/24 08:59 [...] equipment to enhance the patient's a functional congregational Ensure adequate nutrition and hydration Sleep: No issues Pain: Continue current regimen for now Discharge planning: Home alone in about a week. I spent 17 minutes for services, including bmus-la-lurs encounter with the patient, discussion of the case, plan of care, and exam; and gwfjtmm-qa-vind activities, such as reviewing pertinent business management consultant documentation, recent therapynotes, laboratory and radiology studies, and discussion of case with care team including physician, nursing, rehabilitation case coordinator, and therapists. More than 50 % of time was spent on patient/family counseling or coordination ofcare. <Statement entered by Elijah Mayers MD - 09/08/23 13:35> This documentation has been reviewed and approved. Documented By: Heidi Mesa APRN 09/05/23 1 356 Signed By: <Electronically signed by CHASITY Mesa> 09/05/23 1413 <Electronically signed by Elijah Mayers MD> 09/08/23 4520 [facility] Work Phone: 1(527) 216-619503-11-2024 Progress note Author Elijah Mayers [facility] September 08, 2023 1:35pm Note Date/Time September 07, 2023 8:[address] [facility] [address] [place] [address] Physiatry(Rehab) Progress Note Signed Patient: Ashley Brown MR#: [id number] : 1940 Acct:[id number] Age/Sex: 82 / F Adm Date: 4 Loc: Room: 6U5479-5 Type: ADM IN Attending Dr: Elijah Mayers [...] She was given Compazine injection by hospitalist BOAT WORKER which 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 She does [...] Vicodin] Allergy (Verified 09/02/23 15:58) Vomiting Rocuronium [place] Allergy (Unknown, Uncoded 08/20/23 14:19) breathing difficulty [...] mg 09/02/23 14:57 Bisacodyl 10 Mg Supp.Rect VA 09/01/24 14:56 DAILY PRN Constipation Cefadroxil 500 mg 09/02/23 21:00 09/07/23 08:36 Cefadroxil 500 Mg Capsule PO 09/09/23 20:59 500 mg BID ERNIE Administration Diclofenac Sodium 2 gm 09/02/23 18:00 09/07/23 17:28 Diclofenac Sodium 1% Gel 100 Gm Tube TOPICAL 09/01/24 17:59 Not Given QID [facility] Docusate Sodium 283 mg 09/02/23 14:57 Docusate Enema 283 Mg/5 Ml Enema VA 09/01/24 14:56 DAILY PRN Constipation Docusate Sodium 100 mg 09/05/23 14:06 Docusate 100 Mg Capsule PO 09/03/24 08:59 BID PRN Constipation Enoxaparin Sodium 40 mg 09/03/23 10:35 09/07/23 09:53 Enoxaparin 40 Mg/0.4 Ml Syringe SUBCUT 09/02/24 10:34 Not Given DAILY@1000 [facility] Home Med 1 each 09/02/23 23:30 Home Meds Kept In Pharmacy [facility] 09/01/24 23:29 PRN PRN zz.Pharmacy Note Lactulose [...] 09/04/23 09:00 09/07/23 08:36 Pantoprazole 40 Mg Tablet. PO 09/03/24 08:59 [...] equipment to enhance the patient's a functional congregational Ensure adequate nutrition and hydration Sleep: No issues Pain: Continue current regimen for now Discharge planning: Home alone in about a week. I spent 19 minutes for services, including vxvq-rk-fufk encounter with the patient, discussion of the case, plan of care, and exam; and ucyaomt-yh-ylzu activities, such as reviewing pertinent business management consultant documentation, recent therapynotes, laboratory and radiology studies, and discussion of case with care team including physician, nursing, rehabilitation case coordinator, and therapists. More than 50 % of time was spent on patient/family counseling or coordination ofcare. <Statement entered by Elijah Mayers MD - 09/08/23 13:35> This documentation has been reviewed and approved. Documented By: Heidi Mesa APRN 09/07/23 2 021 Signed By: <Electronically signed by CHASITY Mesa> 09/07/232031 <Electronically signed by Elijah Mayers MD> 09/08/23 1337 [facility] Work Phone: 1([phone]) 395-958503-07-2024 Progress note Author Elijah Mayers [facility] September 04, 2023 2:42pm Note Date/Time September 04, 2023 2:[address] [facility] [address] [place] [address] Physiatry(Rehab) Progress Note Signed Patient: Ashley Brown MR#: [id number] : 1940 Acct:[id number] Age/Sex: 82 / F Adm Date: 4 Loc: Room: 7E9469-9 Type: ADM IN Attending Dr: Elijah Mayers [...] She was given Compazine injection by hospitalist BOAT WORKER which 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 She does [...] Vicodin] Allergy (Verified 09/02/23 15:58) Vomiting Rocuronium Topton Allergy (Unknown, Uncoded 08/20/23 14:19) breathing difficulty [...] mg 09/02/23 14:57 Bisacodyl 10 Mg Supp.Rect VA 09/01/24 14:56 DAILY PRN Constipation Cefadroxil 500 mg 09/02/23 21:00 09/04/23 09:26 Cefadroxil 500 Mg Capsule PO 500 mg BID ERNIE Administration Diclofenac Sodium 2 gm 09/02/23 18:00 09/04/23 09:28 Diclofenac Sodium 1% Gel 100 Gm Tube TOPICAL 09/01/24 17:59 2 gm QID RENIE Administration Docusate Sodium 283 mg 09/02/23 14:57 Docusate Enema 283 Mg/5 Ml Enema VA 09/01/24 14:56 DAILY PRN Constipation Docusate Sodium [...] ERNIE Administration Multivitamins 1 tab 09/03/23 09:00 09/04/23 [...] 09/04/23 09:00 09/04/23 09:27 Pantoprazole 40 Mg Tablet.Dr PO 09/03/24 08:59 [...] equipment to enhance the patient's a functional congregational Ensure adequate nutrition and hydration Sleep: No issues Pain: Continue current regimen for now Discharge planning: Home alone in about a week. I spent 14 minutes for services, including sbnr-dd-ljqa encounter with the patient, discussion of the case, plan of care, and exam; and quylnng-eb-pilf activities, such as reviewing pertinent business management consultant documentation, recent therapynotes, laboratory and radiology studies, and discussion of case with care team including physician, nursing, rehabilitation case coordinator, and therapists. More than 50 % of time was spent on patient/family counseling or coordination ofcare. <Statement entered by Elijah Mayers MD - 09/04/23 14:41> I reviewed the history and the relevant portions of the chart, including currentorders, allied health and business management consultant notes, labs/imaging and plan of care as above. Documented By: Heidi Mesa APRN 09/04/23 1 429 Signed By: <Electronically signed by CHASITY Mesa> 09/04/23 1435 <Electronically signed by Elijah Mayers MD> 09/04/23 1442 [facility] Work Phone: 1(864) 275-897303-07-2024 Consult note Author Saud Zuniga [facility] September 04, 2023 6:55am Note Date/Time September 03, 2023 2:[address] [facility] [address] [place] [address] Hospitalist Consult Note Signed Patient: Ashley Brown MR#: [id number] : 1940 Acct:[id number] Age/Sex: 82 / F Adm Date: 4 Loc: Room: [address] [place] [address] Type: ADM IN Attending Dr: Elijah Mayers MD Copies to: Odell Harrington,MD Carol Haas, CHASITY Zuniga MD~ HPI DATE OF CONSULTATION: 09/03/23 REQUESTING [...] negative unless noted in the HPI below PMFSH Source: Old Records Reviewed Medical History Paroxysmal [...] History of heart bypass surgery 2020 in [place] History of cardiac catheterization prior to open [...] Vicodin] Allergy (Verified 09/02/23 15:58) Vomiting Rocuronium [place] Allergy (Unknown, Uncoded 08/20/23 14:19) breathing difficulty [...] mg PO QPM 08/20/23 [History Confirmed 09/02/23] curoscdu-faa-mdukv ac 400 mcg-calcium carb 500 mg-vit K1 [...] mg 09/02/23 14:57 Bisacodyl 10 Mg Supp.Rect VA 09/01/24 14:56 DAILY PRN Constipation Cefadroxil 500 [...] 14:57 Docusate Enema 283 Mg/5 Ml Enema VA 09/01/24 14:56 DAILY PRN Constipation Enoxaparin Sodium [...] DAILY ERNIE Prednisone 10 mg 09/03/23 09:00 09/03/23 09:08 [...] % (Auto) 76.7, Lymph % (Auto) 10.7, [place]amo % (Auto) 11.5, Eos % (Auto) 0.8, Baso % (Auto) 0.3, Nucleat RBC Rel Count 0.0, Neut # (Auto) 6.0, Lymph # (Auto) 0.8 L, [place]amo # (Auto) 0.9 H, Eos # (Auto) 0.1, Baso # (Auto) 0.0, PHA Creatinine Clear 47.47, Sodium 137, Potassium 4.5, Chloride 101, Carbon Dioxide 28.6, Anion Gap 11.9, BUN 11, Creatinine 0.78, Est GFR (CKD-EPI) > 60.0, [id number] H, Calcium 8.8, Total Bilirubin 0.4, AST [...] signed by Saud Zuniga MD> 09/04/23 0655 [facility] Work Phone: [phone]) 785-335303-06-2024 History and physical note Author Elijah Mayers [facility] September 03, 2023 2:37pm Note Date/Time September 03, 2023 11:[address] [facility] [address] [place] [address] Physiatry (Rehab) H&P Signed Patient: Ashley Brown MR#: [id number] : 1940 Acct:[id number] Age/Sex: 82 / F Adm Date: 4 Loc: Room: 7D1337-9 Type: ADM IN Attending Dr: Elijah Mayers MD Copies to: DO Elijah Wheat MD Elena Turovskaya, BATHHOUSE ATTENDANT~ Date of Service: 09/03/2023 HPI The patient [...] She was given Compazine injection by hospitalist BOAT WORKER which 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 She does [...] social support consisting of friends and family. [facility] Medical History Paroxysmal atrial fibrillation Primary insomnia [...] History of heart bypass surgery 2020 in [place] History of cardiac catheterization prior to open [...] Vicodin] Allergy (Verified 09/02/23 15:58) Vomiting Rocuronium [place] Allergy (Unknown, Uncoded 08/20/23 14:19) breathing difficulty [...] mg PO QPM 08/20/23 [History Confirmed 09/02/23] mbqueruh-jwz-muqzz ac 400 mcg-calcium carb 500 mg-vit K1 [...] 500 Mg Tablet) 1,000 mg PO Q8H ERNIE Stop: 09/01/24 15:14 Last Admin: 09/03/23 06:18 Dose: 1,000 mg Al Hydrox/Mg Hydrox/Simethicone (Mag Hydrox/Al Hydrox/Simeth 30 Ml Udc) 30 ml PO Q4H PRN PRN Reason: Indigestion Stop: 09/01/24 14:56 Last Admin: 09/03/23 00:58 Dose: 30 ml Alprazolam (Alprazolam 0.25 Mg Tablet) 0.25 mg PO Q6H PRN PRN Reason: Anxiety Stop: 03/01/24 10:29 Aspirin (Aspirin 81 Mg Tablet.Dr) 81 mg PO BID [facility] Stop: 09/01/24 20:59 Last Admin: 09/03/23 09:08 Dose: 81 mg Atorvastatin Calcium (Atorvastatin 10 Mg Tablet) 10 mg PO QHS [facility] Stop: 09/01/24 21:59 Last Admin: 09/02/23 22:50 Dose: 10 mg Bisacodyl (Bisacodyl 10 Mg Supp.Rect) 10 mg VA DAILY PRN PRN Reason: Constipation Stop: 09/01/24 14:56 Cefadroxil (Cefadroxil 500 Mg Capsule) 500 mg PO BID [facility] Last Admin: 09/03/23 09:08 Dose: 500 mg Diclofenac Sodium (Diclofenac Sodium 1% Gel 100 Gm Tube) 2 gm TOPICAL QID [facility] Stop: 09/01/24 17:59 Last Admin: 09/03/23 09:09 Dose: 2 gm Docusate Sodium (Docusate 100 Mg Capsule) 100 mg PO BID PRN PRN Reason: Constipation Stop: 09/01/24 14:56 Docusate Sodium (Docusate Enema 283 Mg/5 Ml Enema) 283 mg VA DAILY PRN PRN Reason: Constipation Stop: 09/01/24 14:56 Enoxaparin Sodium (Enoxaparin 40 Mg/0.4 Ml Syringe) 40 mg SUBCUT DAILY@1000 [facility] Stop: 09/02/24 10:34 Home Med (Home Meds Kept In Pharmacy) 1 each [facility] PRN PRN PRN Reason: zjose.Pharmacy Note Stop: 09/01/24 23:29 Lactulose (Lactulose 20 Gm/30 Ml Udc) 30 gm PO DAILY PRN PRN Reason: Constipation Stop: 09/01/24 14:56 Losartan Potassium (Losartan 25 Mg Tablet) 25 mg PO QAM [facility] Stop: 09/02/24 08:59 Last Admin: 09/03/23 09:08 Dose: 25 mg Metoprolol Succinate (Metoprolol Succinate 25 Mg Tab.Er.24h) 25 mg PO QPM [facility] Stop: 09/01/24 20:59 Last Admin: 09/02/23 22:50 [...] 17 Gm Powd.Pack) 17 gm PO DAILY [facility] Stop: 09/02/24 08:59 Last Admin: 09/03/23 09:11 Dose: Not Given Prednisone (Prednisone 10 Mg Tablet) 10 mg PO DAILY ERNIE Stop: 09/02/24 08:59 Last [...] (1,000 Units) Tablet) 50 mcg PO DAILY [facility] Stop: 09/02/24 08:59 Last Admin: 09/03/23 09:08 Dose: 50 mcg Vitamin E (Vitamin E (Dl Tocopheryl Acet) 180 Mg (400 Units) Capsule) 180 mg PODAILY [facility] Stop: 09/02/24 08:59 Last Admin: 09/03/23 09:08 Dose: 180 mg Zolpidem Tartrate (Zolpidem 10 Mg Tablet) 10 mg PO QHS ERNIE Stop: 02/29/24 21:59 Last Admin: 09/02/23 22:50 [...] % (Auto) 76.7 Lymph % (Auto) 10.7 [place] % (Auto) 11.5 Eos % (Auto) 0.8 Baso % (Auto) 0.3 Nucleat RBC Rel Count 0.0 Neut # (Auto) 6.0 Lymph # (Auto) 0.8 L [place] # (Auto) 0.9 H Eos # (Auto) [...] 7 Days Expected Discharge Destination: Home Rehabilitation [facility]: 8. Primary Diagnosis: as above Patient?s/Family?s anticipated outcomes/personal [...] 24 hour daily monitoring and intervention from Adjunct Latin Professor as well as other consulting physicians including internal medicine as well as 24 hour daily archivist political history nursing - for medical safe / optimal [...] equipment to enhance the patient's a functional congregational Ensure adequate nutrition and hydration Sleep: No issues Pain: Continue current regimen for now Discharge planning: Home alone in about a week. I spent 44 minutes for services, including [id number] encounter with the patient, discussion of the case, plan of care, and exam; and [id number]-[id number] activities, such as reviewing pertinent business management consultant documentation, recent therapynotes, laboratory and radiology studies, and discussion of case with care team including physician, nursing, rehabilitation case coordinator, and therapists. More than 50 % of time was spent on patient/family counseling or coordination ofcare. Patient was personally seen by me, Dr. Mayers, on the day of encounter, within 24 hours of rehab admission, reviewed the history and the relevant portions of the chart, including current orders, allied health and business management consultant notes, labs/imaging and performed timmons elements of exam and I formulated the planof care and facilitated the medical decision making. I completed a substantive portion of this encounter, the medical decision makingportion of this note in its entirety, including Allied health note review, nursing note review, business management consultant note review, discussion with nursing and [...] <Electronically signed by Elijah Mayers MD> 09/03/23 14[address] [facility] Work Phone: 1(341) 369-577802-02-2024 Evaluation note* Encounter Date Diagnosis Assessment Notes [...] DVT, acute blood loss anemia and infection. 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 [facility] Other 12-08-2023 Evaluation note* Encounter Date Diagnosis [...] Cleanse w/ soap and water. Mupirocin bid [facility] Other 11-27-2023 Evaluation note* Encounter Date Diagnosis [...] AHA diet plan. Continue secondary prevention measures. [facility] Other 11-22-2023 Evaluation note* Encounter Date Diagnosis [...] and or her pain management office in [place] to get that left hip injected with [...] by [employer] in 2013 with [employer] components [facility] Other 11-21-2023 Evaluation note* Encounter Date Diagnosis [...] are maintaining regular scheduled appts with their bi solutions architect. Apr, Generalized anxiety disorder (ICD-10 - F41.1) [...] 50% narrowing Continue ASA and Statin therapy. [facility] Other 11-15-2023 Note[facility] Cardiology - [facility] Subjective Ashley Brown is a 82 y.o. year old female patient being seen for Follow-up (6 months) Patient Active Problem List Diagnosis Coronary artery disease involving [place] coronary artery of [place] heart without angina pectoris Essential hypertension History [...] MOUTH EVERY DAY, D (more content not included)...[facility]05-09-2023 Note CONSULTATION CONSULTATION DATE: 11/05/2022 TO: [...] our patients to inform us about any jcdu-vyr-awymocc medications or herbal remedies/nutritional supplements/alternative remedies. 2. [...] treatment options with their primary care provider.[facility] [id number] Evaluation note * Encounter Date Diagnosis Assessment [...] are maintaining regular scheduled appts with their bi solutions architect. No bleeding complications Sep, Generalized anxiety disorder (ICD-10 - F41.1) Healthy diet, exercise and keep active Sep, Hyperlipidemia type II (ICD-10 - E78.01) Diet and exercise with continued statin therapy. Sep, Primary osteoarthritis of both knees (ICD-10 - M17.0) Quad exercises, ice/heat and Tylenol Orthopedics referring to Pain Management Discussed opiates: Tramadol doesn't help, declines Jerome Sep, Bilateral carotid bruits (ICD-10 - R09.89) Carotid US: 50-60% B/L 2018 Carotid US: < 50% 08/2021 < 50% stenosis Continue primary prevention measures Sep, Precordial pain (ICD-10 - R07.2) Sep, High risk medication use (ICD-10 - Z79.899) [facility] Other 04-11-2023 Evaluation note* Encounter Date Diagnosis Assessment Notes Treatment Notes Treatment Clinical Notes Sep, Acute bronchitis due to other specified organisms (ICD-10 - J20.8) Instructed to use Robitussin or Mucinex for cough, saline or Flonase NS for congestion, Tylenol for pain and fever. Sep, ASHD (arteriosclerotic heart disease) (ICD-10 - I25.10) Avoid use of decongestants w/ OTC medications [facility] Other 01-25-2023 Evaluation note* Encounter Date Diagnosis [...] use of Tylenol, Glucosamine and IA injections. [facility] Other Evaluation noteNo InformationNortExcela [facility] Other Evaluation note* Diagnosis Onset Date Resolution Status Primary osteoarthritis of right knee acute [facility] Work Phone: Evaluation note* Diagnosis Onset Date [...] Status post total right knee replacement acute [facility] Work Phone: Evaluation note* Diagnosis Onset Date Resolution Status Primary osteoarthritis of right knee acute Acute sinusitis noneactive ASHD (arteriosclerotic heart disease) acute Primary osteoarthritis of right knee acute ASHD (arteriosclerotic heart disease) acute Elevated cholesterol acute Acute sinusitis noneactive Acute blood loss anemia none active Aftercare following right kn ee joint replacement surgery acute [facility] Work Phone: Evaluation note* Diagnosis Onset Date Resolution Status Acute sinusitis noneactive ASHD (arteriosclerotic heart disease) acute Primary osteoarthritis of right knee acute ASHD (arteriosclerotic heart disease) acute Elevated cholesterol acute Acute sinusitis noneactive Acute blood loss anemia none active Aftercare following right kn ee joint replacement surgery acute Aftercare following right kn ee joint replacement surgery acute [facility] Work Phone: Evaluation noteNo assessment information available [facility] Work Phone: History general Narrative - Reported* [...] Surgical History cholecystectomy Surgical History left TKA [facility] Other History general Narrative - Reported* Type [...] left TKA Hospitalization History see surgical history [facility] Other Summary Purpose Family History Relationship Condition Age at Onset Recorded Date/T karl family member Unknown father Congestive heart failure Unknown Not Specified Malignant neoplasm of lung Unknown brother Malignant neoplasm of liver Unknown Malignant neoplasm of urinary bladder Unk nown Advance Directives Advance Directive Response Recorded Date/ Time Advance Directives No April 6:19pm Advance Directive Response Recorded Date/ Time Advance Directives No April 7:19pm Chief Complaint and Reason for Visit Chief Complaint Follow Up F/U From Lt Hip Joint Injection Also Rec z79.344 m17.11m81.8 Pre-Op Clearance H&P RTKA Knee Pain RTK Pre Op Reason for Visit Primary osteoarthrit is of right knee Chief Complaint Follow Up F/U From Lt Hip Joint Injection Also Rec z79.899 m17.11m81.8 Pre-Op Clearance H&P RTKA m17.11 Knee Pain RTK Pre Op Reason for Visit Primary osteoarthrit is of right knee Chief Complaint F/U From Lt Hip Join t Injection Also Rec z79.893 m17.11m81.8 Pre-Op Clearance H&P RTKA m17.11 Knee Pain RTK Pre Op Sinuses, Cough, Sore Throat- [phone] Knee Pain Knee Pain Knee Pain Right [...] RTK Pre Op Sinuses, Cough, Sore Throat- [phone] Knee Pain Knee Pain Knee Pain Right Knee Osteoarthritis s/p TKA Right Knee Osteoarthritis s/p TKA Right Knee Osteoarthritis s/p TKA Right Knee Osteoarthritis s/p TKA Right Knee Osteoarthritis s/p TKA Right Knee Osteoarthritis s/p TKA Amb Documentation [facility] [place] Follow Up Z47.1 - Aftercare following joint replacement surg 4 WK RECHECK Reason for Visit Primary osteoarthrit is of right knee Acute sinusitis ASHD (arteriosclerotic heart disease) Primary osteoarthritis of right knee ASHD (arteriosclerotic heart disease) Elevated cholesterol Acute sinusitis Acute blood loss anemia Aftercare following right knee joint replacement surgery Chief Complaint Sinuses, Cough, Sore Throat- [phone] Knee Pain Knee Pain Knee Pain Right Knee Osteoarthritis s/p TKA Right Knee Osteoarthritis s/p TKA Right Knee Osteoarthritis s/p TKA Right Knee Osteoarthritis s/p TKA Right Knee Osteoarthritis s/p TKA Right Knee Osteoarthritis s/p TKA Amb Documentation [facility] [place] Discharge Follow Up Z47.1 - Aftercare following joint replacement surg 4 WK RECHECK M25.562 - Pain in left knee Z47.1 - Aftercare foll 6 WEEK RECHECK, PT REQUESTING Reason for Visit Acute sinusitis ASHD (arteriosclerotic heart disease) Primary osteoarthritis of right knee ASHD (arteriosclerotic heart disease) Elevated cholesterol Acute sinusitis Acute blood loss anemia Aftercare following right knee joint replacement surgery Aftercare following right knee joint replacement surgery Chief Complaint 4 Month Follow 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 DATE CREATED AUTHOR AUTHOR'S ORGANIZ ATION 11/22/2023 [facility] EPIC REASON FOR VISIT (unrecogniz ed section and content) Lab resultsPre-Op ClearanceF /U FROM LT HIP JOINT INJECTION ALSO RECHECK RIGHT KNEE WANTS TO DISCUSS [id number] coldATB wantedNP LT KNEE PAIN UPDATE XRAYS PER [facility], SCHED AUTH APPROVED PREVIOUS TKA4 month Follow upPT order3 month Follow upSinus Infection/Cough-COVID Negative [phone] Care Teams (unrecognized sec tion and content) Team Status: Active Member Role Status Dates Odell Harrington DO Primary Care Provider Active Team Status: Inactive Member Role Status Armand [...] Active Start: September 01, 2023 Ana Berry RN Other Provider Active Star t: September 01, 2023 End: September 02, 2023 Nuha Mcmahan RN Other Provider Active Start : September 01, 2023 End: September 02, 2023 Anne Ha RN Other Provider Active Start: [facility] 2023 End: September 02, 2023 Bernie Bell , GLO Other Provider Active Star t: September 01, 2023 End: September 02, 2023 Cecelia Villegas RN Other Provider Active Start : September 01, 2023 End: September 02, 2023 Zina Kunz , GLO Other Provider Active Start: [facility] 2023 End: September 02, 2023 Carline Cardozo , GLO Other Provider Active Start: [facility] 2023 End: September 02, 2023 Annalisa Gar MD Other Provider Active Start: September 01, 2023 End: September 02, 2023 Foster Santiago MD Other Provider Active Start: [facility] 2023 End: September 02, 2023 Lulú Garcia [...] Raymond Hilton MD Other Provider Active Start: [facility] 2023 End: September 02, 2023 Patricia Mayberry APRN Other Provider Active Start: September 01, 2023 End: September 02, 2023 Warren Mera MD Other Provider Active Start: September 01, 2023 End: September 02, 2023 Flavio Woods MD Other Provider Active Start: [facility] 2023 End: September 02, 2023 Saud Zuniga MD Other Provider Active Start: September 01, 2023 End: September 02, 2023 Benjamin Plasencia MD Other Provider Active Start: September 01, 2023 End: September 02, 2023 Roger Carranza DO Other Provider Active Start: September 01, 2023 End: September 02, 2023 Ricardo Souza MD Other Provider Active Start: [facility] 2023 End: September 02, 2023 Allen Andres MD Other Provider Active Start: [facility] 2023 End: September 02, 2023 ROCK MendozaC Other Provider Active St art: September 01, 2023 End: September 02, 2023 Sloane Martin APRN Other Provider Active Star t: September 01, 2023 End: September 02, 2023 Huy Rosenbaum MD Other Provider Active Start: September 01, 2023 End: September 02, 2023 Augie Ontiveros MD Other Provider Active Start: [facility] 2023 End: September 02, 2023 Lc Lima MD Other Provider Active Start: [facility] 2023 End: September 02, 2023 Mati Alberto MD Other Provider Active Star t: September 01, 2023 End: September 02, 2023 Farhan Smith MD Other Provider Active Start: [facility] 2023 End: September 02, 2023 Rakel Regan DO Other Provider Active Start: [facility] 2023 End: September 02, 2023 Silverio Irizarry DO Other Provider Active Start : September 01, 2023 End: September 02, 2023 Jean-Pierre Mariee , DO Other Provider Active Sta rt: September 01, 2023 End: September 02, 2023 Carol Holland APRN Other Provider Active Start: September 01, 2023 End: September 02, 2023 Pj Knapp , Other [...] Tushar Cohen MD Other Provider Active Start: [facility] 2023 End: September 02, 2023 Vidal Akins MD Other Provider Active S tart: September 01, 2023 End: September 02, 2023 Aiden Stoll , Other Provider Active Star t: September 01, 2023 End: September 02, 2023 Lucas Carrillo DO Other Provider Active Start: September 01, 2023 End: September 02, 2023 Jordy Lima MD Other Provider Active Start: September 01, 2023 End: September 02, 2023 Martina Thakkar RN Other Provider Active Start: [facility] 2023 End: September 02, 2023 Dilip Laird MD Other Provider Active Start: [facility] 2023 End: September 02, 2023 Team Status: [...] Ha , GLO Other Provider Active Start: [facility] 2023 Bernie Bell RN Other Provider Active Star t: September 01, 2023 Cecelia Villegas , GLO Other Provider Active Start : September 01, 2023 Zina Kunz , GLO Other Provider Active Start: [facility] 2023 Carline Cardozo RN Other Provider Active Start: [facility] 2023 Annalias Gar MD Other Provider Active Start: September 01, 2023 Foster Santiago MD Other Provider Active Start: [facility] 2023 Lulú Garcia APRN Other Provider Active Start: September 01, 2023 Genesis Andre , Other Provider Active Start : September 01, 2023 Bhupinder San MD Other Provider Active Start : September 01, 2023 Ron Guajardo , DO Other Provider Active Start: September 01, 2023 Gilbert Lanier MD Other Provider Active Start: September 01, 2023 Peri Grubbs MD Attending Provider, Other Provider Active Start: September 01, 2023 Raymond Hilton MD Other Provider Active Start: [facility] 2023 Patricia Mayberry APRN Other Provider Active Start: September 01, 2023 Warren Mera MD Other Provider Active Start: September 01, 2023 Flavio Woods MD Other Provider Active Start: [facility] 2023 Saud Zuniga MD Other Provider Active Start: September 01, 2023 Benjamin Plasencia MD Other Provider Active Start: September 01, 2023 Roger Carranza , Other Provider Active Start: September 01, 2023 Ricardo Souza MD Other Provider Active Start: [facility] 2023 Allen Andres MD Other Provider Active Start: [facility] 2023 GERRY Mendoza Other Provider Active St art: September 01, 2023 Sloane Martin APRN Other Provider Active Star t: September 01, 2023 Huy Rosenbaum MD Other Provider Active Start: September 01, 2023 Augie Ontiveros MD Other Provider Active Start: [facility] 2023 Lc Lima MD Other Provider Active Start: [facility] 2023 Mati Alberto MD Other Provider Active Star t: September 01, 2023 Farhan Smith MD Other Provider Active Start: [facility] 2023 Rakel Regan , Other Provider Active Start: [facility] 2023 Silverio Irizarry , Other Provider Active Start : September 01, 2023 Jean-Pierre Mariee , DO Other Provider Active Sta rt: September 01, 2023 Carol Holland APRN Other Provider Active Start: September 01, 2023 Pj Knapp , DO Other Provider Active Start: September 01, 2023 Paula Ramirez MD Other Provider Active Sta rt: September 01, 2023 Antonella Moore APRN Other Provider Active Start : September 01, 2023 Chetna Zaragoza APRN Other Provider Active St art: September 01, 2023 Tushar Cohen MD Other Provider Active Start: [facility] 2023 Vidal Akins MD Other Provider Active S tart: September 01, 2023 Aiden Stoll , DO Other Provider Active Star t: September 01, 2023 Lucas Carrillo , Other Provider Active Start: September 01, 2023 Jordy Lima MD Other Provider Active Start: September 01, 2023 Martina Thakkar RN Other Provider Active Start: [facility] 2023 Dilip Laird MD Other Provider Active Start: [facility] 2023 Team Status: Active Member Role Status Dates Odell Harrington DO Primary Care Provider Active Start: September 02, 2023 Magno Pichardo II, MD Admit Provider, Other Provider Active Start: September 02, 2023 Ana Berry , GLO Other Provider Active Star t: September 02, 2023 Nuha Mcmahan , GLO Other Provider Active Start : September 02, 2023 Anne Ha , GLO Other Provider Active Start: [facility] 2023 Bernie Bell , GLO Other Provider Active Star t: September 02, 2023 Cecelia Villegas , GLO Other Provider Active Start : September 02, 2023 Zina Kunz , GLO Other Provider Active Start: [facility] 2023 Carline Cardozo , GLO Other Provider Active Start: [facility] 2023 Annalisa Gar MD Other Provider Active Start: September 02, 2023 Foster Santiago MD Other Provider Active Start: [facility] 2023 Lulú Garcia APRN Other Provider Active [...] Raymond Hilton MD Other Provider Active Start: [facility] 2023 Patricia Mayberry APRN Other Provider Active Start: September 02, 2023 Warren Mera MD Other Provider Active Start: September 02, 2023 Flavio Woods MD Other Provider Active Start: [facility] 2023 Saud Zuniga MD Other Provider Active Start: September 02, 2023 Benjamin Plasencia MD Other Provider Active Start: September 02, 2023 Roger Carranza DO Other Provider Active Start: September 02, 2023 Ricardo Souza MD Other Provider Active Start: [facility] 2023 Allen Andres MD Other Provider Active Start: [facility] 2023 Lashonda Earl , BOAT WORKER-C Other Provider Active St art: September 02, 2023 Sloane Martin APRN Other Provider Active Star t: September 02, 2023 Huy Rosenbaum MD Other Provider Active Start: September 02, 2023 Augie Ontiveros MD Other Provider Active Start: [facility] 2023 Lc Lima MD Other Provider Active Start: [facility] 2023 Mati Alebrto MD Other Provider Active Star t: September 02, 2023 Farhan Smith MD Other Provider Active Start: [facility] 2023 Rakel Regan DO Other Provider Active Start: [facility] 2023 Silverio Irizarry , Other Provider Active Start : September 02, 2023 Jean-Pierre Mariee , Other Provider Active Sta rt: September 02, [...] Tushar Cohen MD Other Provider Active Start: [facility] 2023 Vidal Akins MD Other Provider Active S tart: September 02, 2023 Aiden Stoll , DO Other Provider Active Star t: September 02, 2023 Lucas Carrillo , Other Provider Active Start: September 02, 2023 Jordy Lima MD Other Provider Active Start: September 02, 2023 Martina Thakkar , GLO Other Provider Active Start: [facility] 2023 Dilip Laird MD Attending Provider, Other Provider Active Start: September 02, 2023 Team Status: Inactive Member Role Status Armand Harrington DO Primary Care Provider Active Start: September 02, 2023 End: September 15, 2023 Elijah Mayers MD Admit Provid er, Attending Provider Active Start: September 02, 2023 End: September 15, 2023 Ana Berry , GLO Other Provider Active Star t: September 02, 2023 End: September 15, 2023 Nuha Mcmahan , GLO Other Provider Active Start : September 02, 2023 End: September 15, 2023 Anne Ha RN Other Provider Active Start: [facility] 2023 End: September 15, 2023 Bernie Bell RN Other Provider Active Star t: September 02, 2023 End: September 15, 2023 Cecelia Villegas RN Other Provider Active Start : September 02, 2023 End: September 15, 2023 Zina Kunz , GLO Other Provider Active Start: [facility] 2023 End: September 15, 2023 Carline Cardozo RN Other Provider Active Start: [facility] 2023 End: September 15, 2023 Annalisa Gar MD Other Provider Active Start: September 02, 2023 End: September 15, 2023 Foster Santiago MD Other Provider Active Start: [facility] 2023 End: September 15, 2023 Lulú Garcia , CHASITY Other Provider Active Start: September 02, 2023 End: September 15, 2023 Genesis Andre DO Other Provider Active Start : September 02, 2023 End: September 15, 2023 Bhupinder San [...] Raymond Hilton MD Other Provider Active Start: [facility] 2023 End: September 15, 2023 Patricia Mayberry APRN Other Provider Active Start: September 02, 2023 End: September 15, 2023 Warren Mera MD Other Provider Active Start: September 02, 2023 End: September 15, 2023 Flavio Woods MD Other Provider Active Start: [facility] 2023 End: September 15, 2023 Saud Zuniga MD Other Provider Active Start: September 02, 2023 End: September 15, 2023 Benjamin Plasencia MD Other Provider Active Start: September 02, 2023 End: September 15, 2023 Roger Carranza DO Other Provider Active Start: September 02, 2023 End: September 15, 2023 Ricardo Souza MD Other Provider Active Start: [facility] 2023 End: September 15, 2023 Allen Andres MD Other Provider Active Start: [facility] 2023 End: September 15, 2023 Lashonda Earl NP-C Other Provider Active St art: September 02, 2023 End: September 15, 2023 Sloane Martin APRN Other Provider Active Star t: September 02, 2023 End: September 15, 2023 Huy Rosenbaum MD Other Provider Active Start: September 02, 2023 End: September 15, 2023 Augie Ontiveros MD Other Provider Active Start: [facility] 2023 End: September 15, 2023 Lc Lima MD Other Provider Active Start: [facility] 2023 End: September 15, 2023 Mati Alberto MD Other Provider Active Star t: September 02, 2023 End: September 15, 2023 Farhan Smith MD Other Provider Active Start: [facility] 2023 End: September 15, 2023 Rakel Regan DO Other Provider Active Start: [facility] 2023 End: September 15, 2023 Silverio Irizarry DO Other Provider Active Start : September 02, 2023 End: September 15, 2023 Jean-Pierre M Miniaci , DO Other Provider Active Sta rt: [...] Tushar Cohen MD Other Provider Active Start: [facility] 2023 End: September 15, 2023 Vidal Akins MD Other Provider Active S tart: September 02, 2023 End: September 15, 2023 Aiden Stoll , Other Provider Active Star t: September 02, 2023 End: September 15, 2023 Jordy Lima MD Other Provider Active Start: September 02, 2023 End: September 15, 2023 Martina Thakkar , GLO Other Provider Active Start: [facility] 2023 End: September 15, 2023 Team Status: [...] Ha , GLO Other Provider Active Start: [facility] 2023 Bernie Bell , GLO Other Provider Active Star t: September 03, 2023 Cecelia Villegas , GLO Other Provider Active Start : September 03, 2023 Zina uKnz RN Other Provider Active Start: [facility] 2023 Carline Cardozo , GLO Other Provider Active Start: [facility] 2023 Annalisa Gar MD Other Provider Active Start: September 03, 2023 Foster Santiago MD Other Provider Active Start: [facility] 2023 Lulú Garcia APRN Other Provider Active Start: September 03, 2023 Genesis Andre , Other Provider Active Start : September 03, 2023 Bhupinder San MD Other Provider Active Start : September 03, 2023 Ron Guajardo , Other Provider Active Start: September 03, 2023 Gilbert Lanier MD Other Provider Active Start: September 03, 2023 Peri Grubbs MD Other Provider Active Start : September 03, 2023 Raymond Hilton MD Other Provider Active Start: [facility] 2023 Patricia Mayberry APRN Other Provider Active Start: September 03, 2023 Warren Mera MD Other Provider Active Start: September 03, 2023 Flavio Woods MD Other Provider Active Start: [facility] 2023 Saud Zuniga MD Other Provider Active Start: September 03, 2023 Benjamin Plasencia MD Other Provider Active Start: September 03, 2023 Roger Carranza , Other Provider Active Start: September 03, 2023 Ricardo Souza MD Other Provider Active Start: [facility] 2023 Allen Andres MD Other Provider Active Start: [facility] 2023 Lashonda Earl , BOAT WORKER-C Other Provider Active St art: September 03, 2023 Sloane Martin APRN Other Provider Active Star t: September 03, 2023 Huy Rosenbaum MD Other Provider Active Start: September 03, 2023 Augie Ontiveros MD Other Provider Active Start: [facility] 2023 Lc Lima MD Other Provider Active Start: [facility] 2023 Mati Alberto MD Other Provider Active Star t: September 03, 2023 Farhan Smith MD Other Provider Active Start: [facility] 2023 Rakel Regan , Other Provider Active Start: [facility] 2023 Silverio Irizarry , DO Other Provider [...] Tushar Cohen MD Other Provider Active Start: [facility] 2023 Vidal Akins MD Other Provider Active S tart: September 03, 2023 Aiden Stoll , DO Other Provider Active Star t: September 03, 2023 Lucas Carrillo , DO Other Provider Active Start: September 03, 2023 Jordy Lima MD Other Provider Active Start: September 03, 2023 Martina Thakkar , GLO Other Provider Active Start: [facility] 2023 Heidi Mesa APRN Attending Provider Active [...] Ha , GLO Other Provider Active Start: [facility] 2023 Bernie Bell , GLO Other Provider Active Star t: September 03, 2023 Cecelia Villegas , GLO Other Provider Active Start : September 03, 2023 Zina Kunz , GLO Other Provider Active Start: [facility] 2023 Carline Cardozo , GLO Other Provider Active Start: [facility] 2023 Annalisa Gar MD Other Provider Active Start: September 03, 2023 Foster Santiago MD Other Provider Active Start: [facility] 2023 Lulú Garcia APRN Other Provider Active Start: September 03, 2023 Genesis Andre , Other Provider Active Start : September 03, 2023 Bhupinder San MD Other Provider Active Start : September 03, 2023 Ron Guajardo DO Other Provider Active Start: September 03, 2023 Gilbert Lanier MD Other Provider Active Start: September 03, 2023 Peri Grubbs MD Other Provider Active Start : September 03, 2023 Raymond Hilton MD Other Provider Active Start: [facility] 2023 Patricia Mayberry APRN Other Provider Active Start: September 03, 2023 Warren Mera MD Other Provider Active Start: September 03, 2023 Flavio Woods MD Other Provider Active Start: [facility] 2023 Saud Zuniga MD Other Provider Active Start: September 03, 2023 Benjamin Plasencia MD Other Provider Active Start: September 03, 2023 Roger Carranza , Other Provider Active Start: September 03, 2023 Ricardo Souza MD Other Provider Active Start: [facility] 2023 Allen Andres MD Other Provider Active Start: [facility] 2023 ROCK MendozaC Other Provider Active St art: September 03, 2023 Sloane Martin APRN Other Provider Active Star t: September 03, 2023 Huy Rosenbaum MD Other Provider Active Start: September 03, 2023 Augie Ontiveros MD Other Provider Active Start: [facility] 2023 Lc Lima MD Other Provider Active Start: [facility] 2023 Mati Alberto MD Other Provider Active Star t: September 03, 2023 Farhan Smith MD Other Provider Active Start: [facility] 2023 Rakel Regan , DO Other Provider Active Start: [facility] 2023 Silverio Irizarry , DO Other Provider [...] Tushar Cohen MD Other Provider Active Start: [facility] 2023 Vidal Akins MD Other Provider Active S tart: September 03, 2023 Aiden Stoll , DO Other Provider Active Star t: September 03, 2023 Lucas Carrillo , DO Other Provider Active Start: September 03, 2023 Jordy Lima MD Other Provider Active Start: September 03, 2023 Martina Thakkar GLO Other Provider Active Start: [facility] 2023 Team Status: Active Member Role Status Dates Odell Harrington DO Primary Care Provider Active Start: September 10, 2023 Elijah Mayers MD Admit Provid er, Attending Provider, Other Provider Active Start: September 10, 2023 Ana Berry , GLO Other Provider Active Star t: September 10, 2023 Nuha Mcmahan , GLO Other Provider Active Start : September 10, 2023 Anne Ha , GLO Other Provider Active Start: [facility] 2023 Bernie Bell , GLO Other Provider Active Star t: September 10, 2023 Cecelia Villegas RN Other Provider Active Start : September 10, 2023 Zina Kunz RN Other Provider Active Start: [facility] 2023 Carline Cardozo RN Other Provider Active Start: [facility] 2023 Annalisa Gar MD Other Provider Active Start: September 10, 2023 Foster Santiago MD Other Provider Active Start: [facility] 2023 Lulú Garcia APRN Other Provider Active [...] Raymond Hilton MD Other Provider Active Start: [facility] 2023 Patricia Mayberry APRN Other Provider Active Start: September 10, 2023 Warren Mera MD Other Provider Active Start: September 10, 2023 Flavio Woods MD Other Provider Active Start: [facility] 2023 Saud Zuniga MD Other Provider Active Start: September 10, 2023 Benjamin Plasencia MD Other Provider Active Start: September 10, 2023 Roger Carranza DO Other Provider Active Start: September 10, 2023 Ricardo Souza MD Other Provider Active Start: [facility] 2023 Allen Andres MD Other Provider Active Start: [facility] 2023 Lashonda Earl , BOAT WORKER-C Other Provider Active St art: September 10, 2023 Sloane Martin APRN Other Provider Active Star t: September 10, 2023 Huy Rosenbaum MD Other Provider Active Start: September 10, 2023 Augie Ontiveros MD Other Provider Active Start: [facility] 2023 Lc Lima MD Other Provider Active Start: [facility] 2023 Mati Alberto MD Other Provider Active Star t: September 10, 2023 Farhan Smith MD Other Provider Active Start: [facility] 2023 Rakel Regan , Other Provider Active Start: [facility] 2023 Silverio Irizarry , Other Provider Active [...] Tushar Cohen MD Other Provider Active Start: [facility] 2023 Vidal Akins MD Other Provider Active S tart: September 10, 2023 Aiden Stoll , Other Provider Active Star t: September 10, 2023 Lucas Carrillo DO Other Provider Active Start: September 10, 2023 Jordy Lima MD Other Provider Active Start: September 10, 2023 Martina Thakkar RN Other Provider Active Start: [facility] 2023 Team Status: Active Member Role Status Armand Harrington DO Primary Care Provider Active Start: September 11, 2023 Elijah Mayers MD Admit Provid er, Other Provider Active Start: September 11, 2023 Ana Berry RN Other Provider Active Star t: September 11, 2023 Nuha Mcmahan RN Other Provider Active Start : September 11, 2023 Anne Ha RN Other Provider Active Start: [facility] 2023 Bernie Bell RN Other Provider Active Star t: September 11, 2023 Cecelia Villegas RN Other Provider Active Start : September 11, 2023 Zina Kunz , GLO Other Provider Active Start: [facility] 2023 Carline Cardozo RN Other Provider Active Start: [facility] 2023 Annalisa Gar MD Other Provider Active Start: September 11, 2023 Foster Santiago MD Other Provider Active Start: [facility] 2023 Lulú Garcia APRN Other Provider Active Start: September 11, 2023 Genesis Andre DO Other Provider Active Start : September 11, 2023 Bhupinder San MD Other Provider Active Start : September 11, 2023 Ron Guajardo DO Other Provider Active Start: September 11, 2023 Gilbert Lanier MD Other Provider Active Start: September 11, 2023 Peri Grubbs MD Other Provider Active Start : September 11, 2023 Raymond Hilton MD Other Provider Active Start: [facility] 2023 Patricia Mayberry APRN Other Provider Active Start: September 11, 2023 Warren Mera MD Other Provider Active Start: September 11, 2023 Flavio Woods MD Other Provider Active Start: [facility] 2023 Saud Zuniga MD Other Provider Active Start: September 11, 2023 Benjamin Plasencia MD Other Provider Active Start: September 11, 2023 Roger Carranza DO Other Provider Active Start: September 11, 2023 Ricardo Souza MD Other Provider Active Start: [facility] 2023 Allen Andres MD Other Provider Active Start: [facility] 2023 GERRY Mendoza Other Provider Active St art: September 11, 2023 Sloane Martin APRN Other Provider Active Star t: September 11, 2023 Huy Rosenbaum MD Other Provider Active Start: September 11, 2023 Augie Ontiveros MD Other Provider Active Start: [facility] 2023 Lc Lima MD Other Provider Active Start: [facility] 2023 Mati Alberto MD Other Provider Active Star t: September 11, 2023 Farhan Smith MD Other Provider Active Start: [facility] 2023 Rakel Regan , Other Provider Active Start: [facility] 2023 Silverio Irizarry , DO Other Provider Active Start : September 11, 2023 Jean-Pierre Mariee , DO Other Provider Active Sta rt: September 11, 2023 Carol Holland APRN Other Provider Active Start: September 11, 2023 Pj Knapp , DO Other Provider Active Start: September 11, 2023 Paula Ramirez MD Other Provider Active Sta rt: September 11, 2023 Antonella Moore APRN Other Provider Active Start : September 11, 2023 Chetna Zaragoza APRN Other Provider Active St art: September 11, 2023 Tushar Cohen MD Other Provider Active Start: [facility] 2023 Vidal Akins MD Other Provider Active S tart: September 11, 2023 Aiden Stoll , DO Other Provider Active Star t: September 11, 2023 Lucas Carrillo , Other Provider Active Start: September 11, 2023 Jordy Lima MD Other Provider Active Start: September 11, 2023 Martina Thakkar RN Other Provider Active Start: [facility] 2023 Magno Pichardo II, MD Attending Provider [...] Ha , GLO Other Provider Active Start: [facility] 2023 Bernie Bell , GLO Other Provider Active Star t: September 13, 2023 Cecelia Villegas RN Other Provider Active Start : September 13, 2023 Zina Kunz RN Other Provider Active Start: [facility] 2023 Carline Cardozo RN Other Provider Active Start: [facility] 2023 Annalisa Gar MD Other Provider Active Start: September 13, 2023 Foster Santiago MD Other Provider Active Start: [facility] 2023 Lulú Garcia APRN Other Provider Active Start: September 13, 2023 Genesis Andre , Other Provider Active Start : September 13, 2023 Bhupinder San MD Other Provider Active Start : September 13, 2023 Ron Guajardo DO Other Provider Active Start: September 13, 2023 Gilbert Lanier MD Other Provider Active Start: September 13, 2023 Peri Grubbs MD Other Provider Active Start : September 13, 2023 Raymond Hilton MD Other Provider Active Start: [facility] 2023 Patricia Mayberry APRN Attending Pr ovider, Other Provider Active Start: September 13, 2023 Warren Mera MD Other Provider Active Start: September 13, 2023 Flavio Woods MD Other Provider Active Start: [facility] 2023 Saud Zuniga MD Other Provider Active Start: September 13, 2023 Benjamin Plasencia MD Other Provider Active Start: September 13, 2023 Roger Carranza DO Other Provider Active Start: September 13, 2023 Ricardo Souza MD Other Provider Active Start: [facility] 2023 Allen Andres MD Other Provider Active Start: [facility] 2023 Lashonda Earl NP-Magaly Other Provider Active St art: September 13, 2023 Sloane Martin APRN Other Provider Active Star t: September 13, 2023 Huy Rosenbaum MD Other Provider Active Start: September 13, 2023 Augie Ontiveros MD Other Provider Active Start: [facility] 2023 Lc Lima MD Other Provider Active Start: [facility] 2023 Mati Alberto MD Other Provider Active Star t: September 13, 2023 Farhan Smtih MD Other Provider Active Start: [facility] 2023 Rakel Regan DO Other Provider Active Start: [facility] 2023 Silverio Irizarry , DO Other Provider Active Start : September 13, 2023 Jean-Pierre Mariee , DO Other Provider Active Sta rt: September 13, 2023 Carol Holland , CHASITY Other Provider Active Start: September 13, 2023 Pj Knapp , Other Provider Active Start: September 13, 2023 Paula Ramirez MD Other Provider Active Sta rt: September 13, 2023 Antonella Moore APRN Other Provider Active Start : September 13, 2023 Chetna Zaragoza , CHASITY Other Provider Active St art: September 13, 2023 Tushar Cohen MD Other Provider Active Start: [facility] 2023 Vidal Akins MD Other Provider Active S tart: September 13, 2023 Aiden Stoll , DO Other Provider Active Star t: September 13, 2023 Jordy Lima MD Other Provider Active Start: September 13, 2023 Martina Thakkar RN Other Provider Active Start: [facility] 2023 Team Status: Active Member Role Status [...] Ha , GLO Other Provider Active Start: [facility] 2023 End: September 15, 2023 Bernie Bell , GLO Other Provider Active Star t: September 03, 2023 End: September 15, 2023 Cecelia Villegas , GLO Other Provider Active Start : September 03, 2023 End: September 15, 2023 Zina Kunz , GLO Other Provider Active Start: [facility] 2023 End: September 15, 2023 Carline Cardozo , GLO Other Provider Active Start: [facility] 2023 End: September 15, 2023 Annalisa Gar MD Other Provider Active Start: September 03, 2023 End: September 15, 2023 Foster Santiago MD Other Provider Active Start: [facility] 2023 End: September 15, 2023 Lulú Garcia [...] Raymond Hilton MD Other Provider Active Start: [facility] 2023 End: September 15, 2023 Patricia Mayberry APRN Other Provider Active Start: September 03, 2023 End: September 15, 2023 Warren Mera MD Other Provider Active Start: September 03, 2023 End: September 15, 2023 Flavio Woods MD Other Provider Active Start: [facility] 2023 End: September 15, 2023 Saud Zuniga MD Other Provider Active Start: September 03, 2023 End: September 15, 2023 Benjamin Plasencia MD Other Provider Active Start: September 03, 2023 End: September 15, 2023 Roger Carranza DO Other Provider Active Start: September 03, 2023 End: September 15, 2023 Ricardo Souza MD Other Provider Active Start: [facility] 2023 End: September 15, 2023 Allen Andres MD Other Provider Active Start: [facility] 2023 End: September 15, 2023 GERRY Mendoza Other Provider Active St art: September 03, 2023 End: September 15, 2023 Sloane Martin APRN Other Provider Active Star t: September 03, 2023 End: September 15, 2023 Huy Rosenbaum MD Other Provider Active Start: September 03, 2023 End: September 15, 2023 Augie Ontiveros MD Other Provider Active Start: [facility] 2023 End: September 15, 2023 Lc Lima MD Other Provider Active Start: [facility] 2023 End: September 15, 2023 Mati Alberto MD Other Provider Active Star t: September 03, 2023 End: September 15, 2023 Farhan Smith MD Other Provider Active Start: [facility] 2023 End: September 15, 2023 Rakel Regan DO Other Provider Active Start: [facility] 2023 End: September 15, 2023 Silverio Irizarry , Other Provider Active Start : September 03, [...] Tushar Cohen MD Other Provider Active Start: [facility] 2023 End: September 15, 2023 Vidal Akins [...] Martina Thakkar RN Other Provider Active Start: [facility] 2023 End: September 15, 2023 Heidi Mesa [...] Ha , GLO Other Provider Active Start: [facility] 2023 End: September 15, 2023 Bernie Bell , GLO Other Provider Active Star t: September 03, 2023 End: September 15, 2023 Cecelia Villegas RN Other Provider Active Start : September 03, 2023 End: September 15, 2023 Zina Kunz RN Other Provider Active Start: [facility] 2023 End: September 15, 2023 Carline Cardozo RN Other Provider Active Start: [facility] 2023 End: September 15, 2023 Annalisa Gar MD Other Provider Active Start: September 03, 2023 End: September 15, 2023 Foster Santiago MD Other Provider Active Start: [facility] 2023 End: September 15, 2023 Lulú Garcia [...] Raymond Hilton MD Other Provider Active Start: [facility] 2023 End: September 15, 2023 Patricia Mayberry APRN Other Provider Active Start: September 03, 2023 End: September 15, 2023 Warren Mera MD Other Provider Active Start: September 03, 2023 End: September 15, 2023 Flavio Woods MD Other Provider Active Start: [facility] 2023 End: September 15, 2023 Saud Zuniga MD Other Provider Active Start: September 03, 2023 End: September 15, 2023 Benjamin Plasencia MD Other Provider Active Start: September 03, 2023 End: September 15, 2023 Roger Carranza DO Other Provider Active Start: September 03, 2023 End: September 15, 2023 Ricardo Souza MD Other Provider Active Start: [facility] 2023 End: September 15, 2023 Allen Andres MD Other Provider Active Start: [facility] 2023 End: September 15, 2023 GERRY Mendoza Other Provider Active St art: September 03, 2023 End: September 15, 2023 Sloane Martin APRN Other Provider Active Star t: September 03, 2023 End: September 15, 2023 Huy Rosenbaum MD Other Provider Active Start: September 03, 2023 End: September 15, 2023 Augie Ontiveros MD Other Provider Active Start: [facility] 2023 End: September 15, 2023 Lc Lima MD Other Provider Active Start: [facility] 2023 End: September 15, 2023 Mati Alberto MD Other Provider Active Star t: September 03, 2023 End: September 15, 2023 Farhan Smith MD Other Provider Active Start: [facility] 2023 End: September 15, 2023 Rakel Regan DO Other Provider Active Start: [facility] 2023 End: September 15, 2023 Silverio Irizarry [...] Tushar Cohen MD Other Provider Active Start: [facility] 2023 End: September 15, 2023 Vidal Akins [...] Thakkar , GLO Other Provider Active Start: [facility] 2023 End: September 15, 2023 Team Status: [...] Ha , GLO Other Provider Active Start: [facility] 2023 End: September 15, 2023 Bernie Bell , GLO Other Provider Active Star t: September 10, 2023 End: September 15, 2023 Cecleia Villegas , GLO Other Provider Active Start : September 10, 2023 End: September 15, 2023 Zina Kunz , GLO Other Provider Active Start: [facility] 2023 End: September 15, 2023 Carline Cardozo RN Other Provider Active Start: [facility] 2023 End: September 15, 2023 Annalisa Gar MD Other Provider Active Start: September 10, 2023 End: September 15, 2023 Foster Santiago MD Other Provider Active Start: [facility] 2023 End: September 15, 2023 Lulú Garcia [...] September 10, 2023 End: September 15, 2023 Raymond Hilton MD Other Provider Active Start: [facility] 2023 End: September 15, 2023 Patricia Mayberry APRN Other Provider Active Start: September 10, 2023 End: September 15, 2023 Warren Mera MD Other Provider Active Start: September 10, 2023 End: September 15, 2023 Flavio Woods MD Other Provider Active Start: [facility] 2023 End: September 15, 2023 Saud Zuniga MD Other Provider Active Start: September 10, 2023 End: September 15, 2023 Benjamin Plasencia MD Other Provider Active Start: September 10, 2023 End: September 15, 2023 Roger Carranza DO Other Provider Active Start: September 10, 2023 End: September 15, 2023 Ricardo Souza MD Other Provider Active Start: [facility] 2023 End: September 15, 2023 Allen Andres MD Other Provider Active Start: [facility] 2023 End: September 15, 2023 GERRY Mendoza Other Provider Active St art: September 10, 2023 End: September 15, 2023 Sloane Martin APRN Other Provider Active Star t: September 10, 2023 End: September 15, 2023 Huy Rosenbaum MD Other Provider Active Start: September 10, 2023 End: September 15, 2023 Augie Ontiveros MD Other Provider Active Start: [facility] 2023 End: September 15, 2023 Lc Lima MD Other Provider Active Start: [facility] 2023 End: September 15, 2023 Mati Alberto MD Other Provider Active Star t: September 10, 2023 End: September 15, 2023 Farhan Smith MD Other Provider Active Start: [facility] 2023 End: September 15, 2023 Rakel Regan , Other Provider Active Start: [facility] 2023 End: September 15, 2023 Silverio Irizarry , Other Provider Active Start : September 10, 2023 End: September 15, 2023 Jean-Pierre Mariee , Other Provider Active Sta rt: September 10, 2023 End: September 15, 2023 Carol Holland APRN Other Provider Active Start: September 10, 2023 End: September 15, 2023 Pj Knapp DO Other Provider Active Start: September 10, [...] Tushar Cohen MD Other Provider Active Start: [facility] 2023 End: September 15, 2023 Vidal Akins [...] Martina Thakkar RN Other Provider Active Start: [facility] 2023 End: September 15, 2023 Team Status: [...] Ha , GLO Other Provider Active Start: [facility] 2023 End: September 15, 2023 Bernie Bell RN Other Provider Active Star t: September 11, 2023 End: September 15, 2023 Cecelia Villegas RN Other Provider Active Start : September 11, 2023 End: September 15, 2023 Zina Kunz RN Other Provider Active Start: [facility] 2023 End: September 15, 2023 Carline Cardozo RN Other Provider Active Start: [facility] 2023 End: September 15, 2023 Annalisa Gar MD Other Provider Active Start: September 11, 2023 End: September 15, 2023 Foster Santiago MD Other Provider Active Start: [facility] 2023 End: September 15, 2023 Lulú Garcia [...] Raymond Hilton MD Other Provider Active Start: [facility] 2023 End: September 15, 2023 Patricia Mayberry APRN Other Provider Active Start: September 11, 2023 End: September 15, 2023 Warren Mera MD Other Provider Active Start: September 11, 2023 End: September 15, 2023 Flavio Woods MD Other Provider Active Start: [facility] 2023 End: September 15, 2023 Saud Zuniga MD Other Provider Active Start: September 11, 2023 End: September 15, 2023 Benjamin Plasencia MD Other Provider Active Start: September 11, 2023 End: September 15, 2023 Roger Carranza DO Other Provider Active Start: September 11, 2023 End: September 15, 2023 Ricardo Souza MD Other Provider Active Start: [facility] 2023 End: September 15, 2023 Allen Andres MD Other Provider Active Start: [facility] 2023 End: September 15, 2023 Lashonda Earl NP-C Other Provider Active St art: September 11, 2023 End: September 15, 2023 Sloane Martin APRN Other Provider Active Star t: September 11, 2023 End: September 15, 2023 Huy Rosenbaum MD Other Provider Active Start: September 11, 2023 End: September 15, 2023 Augie Ontiveros MD Other Provider Active Start: [facility] 2023 End: September 15, 2023 Lc Lima MD Other Provider Active Start: [facility] 2023 End: September 15, 2023 Mati Alberto MD Other Provider Active Star t: September 11, 2023 End: September 15, 2023 Farhan Smith MD Other Provider Active Start: [facility] 2023 End: September 15, 2023 Rakel Regan DO Other Provider Active Start: [facility] 2023 End: September 15, 2023 Silverio Irizarry DO Other Provider Active Start : September 11, 2023 End: September 15, 2023 Jean-Pierre Mraiee DO Other Provider Active Sta rt: September [...] Tushar Cohen MD Other Provider Active Start: [facility] 2023 End: September 15, 2023 Vidal Akins [...] Martina Thakkar RN Other Provider Active Start: [facility] 2023 End: September 15, 2023 Magno Pichardo [...] Anne Ha RN Other Provider Active Start: [facility] 2023 End: September 15, 2023 Bernie Bell RN Other Provider Active Star t: September 13, 2023 End: September 15, 2023 Cecelia Villegas RN Other Provider Active Start : September 13, 2023 End: September 15, 2023 Zina Kunz RN Other Provider Active Start: [facility] 2023 End: September 15, 2023 Carline Cardozo RN Other Provider Active Start: [facility] 2023 End: September 15, 2023 Annalisa Gar MD Other Provider Active Start: September 13, 2023 End: September 15, 2023 Foster Santiago MD Other Provider Active Start: [facility] 2023 End: September 15, 2023 Lulú Garcia [...] Raymond Hilton MD Other Provider Active Start: [facility] 2023 End: September 15, 2023 Patricia Mayberry APRN Attending Pr belloer, Other Provider Active Start: September 13, 2023 End: September 15, 2023 Warren Mera MD Other Provider Active Start: September 13, 2023 End: September 15, 2023 Flavio Woods MD Other Provider Active Start: [facility] 2023 End: September 15, 2023 Saud Zuniga MD Other Provider Active Start: September 13, 2023 End: September 15, 2023 Benjamin Plasencia MD Other Provider Active Start: September 13, 2023 End: September 15, 2023 Roger Carranza DO Other Provider Active Start: September 13, 2023 End: September 15, 2023 Ricardo Souza MD Other Provider Active Start: [facility] 2023 End: September 15, 2023 Allen Andres MD Other Provider Active Start: [facility] 2023 End: September 15, 2023 Lashonda Earl NP-Magaly Other Provider Active St art: September 13, 2023 End: September 15, 2023 Sloane Martin APRN Other Provider Active Star t: September 13, 2023 End: September 15, 2023 Huy Rosenbaum MD Other Provider Active Start: September 13, 2023 End: September 15, 2023 Augie Ontiveros MD Other Provider Active Start: [facility] 2023 End: September 15, 2023 Lc Lima MD Other Provider Active Start: [facility] 2023 End: September 15, 2023 Mati Alberto MD Other Provider Active Star t: September 13, 2023 End: September 15, 2023 Farhan Smith MD Other Provider Active Start: [facility] 2023 End: September 15, 2023 Rakel Regan DO Other Provider Active Start: [facility] 2023 End: September 15, 2023 Silverio Irizarry [...] Tushar Cohen MD Other Provider Active Start: [facility] 2023 End: September 15, 2023 Vidal Akins MD Other Provider Active S tart: September 13, 2023 End: September 15, 2023 Aiden Stoll , Other Provider Active Star t: September 13, 2023 End: September 15, 2023 Jordy Lima MD Other Provider Active Start: September 13, 2023 End: September 15, 2023 Martina Thakkar RN Other Provider Active Start: 2023 End: September 15, 2023 Team Status: [...] October 08, 2023 End: October 08, 2023 Team Status: Active Member Role Status Dates Odell Harrington DO Primary Care Provider Active Start: November 08, 2023 GERRY Thomas Attending Provider Active Start: November 08, 2023 Team Status: Inactive Member Role Status Dates Odell Harrington DO Primary Care Provider Active Start: November 19, 2023 End: November 19, 2023 Magno Pichardo II, MD Attending Provider Active Start: November 19, 2023 End: November 19, 2023 Team Status: Inactive Member Role Status Dates Odell Harrington DO Attending Provider Active Sta rt: May 20, 2023 End: May 20, 2023 Team Status: Inactive Member Role Status Dates Magno Pichardo II, MD Attending Provider Active Start: May 21, 2023 End: May 21, 2023 Goals (unrecognized section and content) Goals [...] BE BASED ON THE PRIMARY CLINICAL RECORDS. [facility]. provides no warranty or guarantee of the accuracy or completeness of information in this document.
[2023-12-20 09:56] LABS: Basophils Absolute Auto 0.1 10^3/uL (0.0-0.1); Basophils Percent Auto 1.1 % (0.2-2.0); Eosinophils Absolute Auto 0.2 10^3/uL (0.0-0.7); Eosinophils Percent Auto 3.2 % (0.9-7.0); Hematocrit 39.4 % (36.0-48.0); Hemoglobin 12.4 g/dL (12.0-16.0); Immature Granulocytes Abs Auto 0.01 10^3/uL (0.00-0.03); Immature Granulocytes Pct Auto 0.2 % (0.0-0.5); Lymphocytes Absolute Auto 0.8 10^3/uL (1.2-3.8); Lymphocytes Percent Auto 12.4 % (20.5-60.0); Mean Corpuscular HGB Conc 31.5 g/dL (29.9-35.2); Mean Corpuscular Hemoglobin 31.1 pg (26.7-34.0); Mean Corpuscular Volume 98.7 fL (81.0-99.0); Mean Platelet Volume 10.5 fL (9.5-13.5); Monocytes Absolute Auto 0.5 10^3/uL (0.3-0.8); Monocytes Percent Auto 8.4 % (1.7-12.0); Neutrophils Absolute Auto 4.6 10^3/uL (1.4-6.5); Neutrophils Percent Auto 74.7 % (43.0-75.0); Platelet Count 275 10^3/uL (150-450); Red Blood Count 3.99 10^6/uL (4.20-5.40); Red Cell Distribution Width 12.4 % (11.0-15.0); White Blood Count 6.2 10^3/uL (4.0-11.0)
[2023-12-20 10:08] LABS: Alanine Aminotransferase 21 U/L (14-59); Albumin Globulin Ratio 0.9; Albumin Level 3.4 g/dL (3.4-5.0); Alkaline Phosphatase 86 U/L (46-116); Anion Gap 13.4; Aspartate Amino Transferase 21 U/L (15-37); BUN Creatinine Ratio 19.3; Bilirubin Total 0.5 mg/dL (0.2-1.0); Carbon Dioxide 25.9 mmol/L (21.0-32.0); Chloride 105 mmol/L (98-107); Estimated GFR (African America >60 (>=60); Estimated GFR (Non-African Ame >60 (>=60); Globulin 3.6 g/dL; Glucose 88 mg/dL (74-106); Potassium 4.3 mmol/L (3.5-5.1); Sodium 140 mmol/L (136-145)
== END 2023-12-20 08:43 | disposition home or self-care (01) ==
PROVIDERS: PCP Internal Medicine; Visit Provider Internal Medicine
DX: I25.10 Atherosclerotic heart disease of native coronary artery without angina pectoris (principal); E78.00 Pure hypercholesterolemia, unspecified; I10 Essential (primary) hypertension
CPT/HCPCS: 36415; 80053; 85025

== ENCOUNTER 2024-02-04 08:26 | Outpatient (OUT) | payer MEDICARE, SELFPAY ==
--- OUTSIDE RECORDS SUMMARY | 2024-02-04 08:39 | XMS_ITS | CCD ---
Author Organization 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 Name Role Phone Odell Harrington Unavailable JUANY, [...] Unavailable BALL, DR RODRIGUEZ Primary Care Unavailable BRICK, DR JOELLEN Ontiveros Consulting Unavailable MOUKARBEL, JEREMIAS Consulting Unavailable Magno Pichardo II Unavailable [phone] DO Odell Harrington Primary Care Provider [phone] MD Magno Pichardo II Attending Provider [phone] DO Odell Harrington Primary Care Provider [phone] MD Magno Pichardo II Attending Provider [phone] MD Elijah Mayers Admit Provider MD Elijah Mayers Attending Provider GLO Berry Other Provider Unavailable GLO Mcmahan Other Provider Unavailable Leland RN Anne Other Provider Unavailable GLO Bell Other Provider Unavailable GLO Villegas Other Provider Unavailable GLO Kunz Other Provider Unavailable GLO Cardozo Other Provider Unavailable MD Annalisa Gar Other Provider MD Foster Santiago Other Provider Unavailable Dials, BOX BENDER Lulú M Other Provider DO Genesis Andre Other Provider MD Bhupinder San Other Provider DO Ron Guajardo Other Provider MD Gilbert Lanier Other Provider [phone] MD Peri Grubbs Other Provider [phone] MD Raymond Hilton Other Provider Unavailable Jefe BOX BENDERPepe Gomez Other Provider MD Warren Mera Other Provider [phone] MD Flavio Woods Other Provider MD Saud Zuniga Other Provider MD Benjamin Plasencia Other Provider DO Roger Carranza Other Provider MD Ricardo Souza Other Provider MD Allen Andres Other Provider GERRY Earl Other Provider Born, BOX BENDERPepe Castañeda Other Provider Unavailable MD Huy Rosenbaum Other Provider MD Augie Ontiveros Other Provider MD Lc Lima Other Provider MD Mati Alberto Other Provider Unavailable MD Farhan Smith Other Provider DO Rakel Regan Other Provider DO Silverio Irizarry R Other Provider DO Jean-Pierre Mariee Other Provider [phone] CHASITY Holland Other Provider DO Pj Knapp Other Provider MD Paula Ramirez Other Provider CHASITY Moore Other Provider CHASITY Zaragoza Other Provider MD Tushar Cohen Other Provider MD Vidal Akins Other Provider DO Aiden Stoll Other Provider [phone] MD Jordy Lima P Other Provider GLO Thakkar Other Provider Unavailable Inwood II, Magno M Admitting Unavailabl e Marino II, Magno M Attending Unavailabl e [facility] Unavailable Inwood II, Magno M Admitting Unavailabl e Inwood II, Magno M Attending Unavailabl e [facility] Primary Care Unavailable Inwood II, Magno M Admitting Unavailabl e Inwood II, Magno M Attending Unavailabl e [facility] Care Unavailable Inwood II, Magno M Admitting Unavailabl e Inwood II, Magno M Attending Unavailabl e [facility] Primary Care Unavailable Inwood II, Magno M Admitting Unavailabl e Ana Berry Consulting Unavailable Inwood II, Magno M Attending Unavailabl e [facility] Primary Care Unavailable Nuha Mcmahan Consulting [...] Hong Consulting Unavailable Clarence, Lc Consulting Unavailable AlmoselMtai petty Consulting Unavailable Farhan Smith Consulting Unavailable [...] Magno Castañeda Attending Unavailalcides Pichardo II, Magno Castañead Admitting Unavailabl e DO Odell Harrington Primary Care Provider MD Magno Pichardo II Attending Provider ODILIA MCCALLUM Attending Unavailable JEREMIAS MCGUIRE Attending Unavailable NBA MARCELO Attending Unavailable NBA MARCELO Referring Unavailable NBA MARCELO Referring Unavailable ANNABELLA DAWSON Attending Unavailable JEREMIAS HENRY Attending Unavailable MD Magno Pichardo II Attending Provider Allergies Allergy Classification Reported Allergen(s) Allergy Type Date of Onset Reaction(s) Facility (17 sources) Acetaminophen / HYDROcodone; Translations: [Vicodin] Drug Allergy 03-04-20 12 Unknown [facility] Repository (15 sources) Acetaminophen / oxyCODONE Drug Allergy Unknown [employer] Other (15 sources) Ciprofloxacin Drug Allergy Unknown [employer] Other (16 sources) Rocuronium; Translations: [ROCURONIUM] Drug Allergy 06-17-20 14 Unknown [facility] Repository (15 sources) Sulfamethoxazole / Trimethoprim Drug Allergy Unknown [employer] Other (2 sources) Acetaminophen / oxyCODONE Drug Allergy 03-04-20 12 [facility] Repository (2 sources) Rocuronium Drug Allergy 03-17-20 12 [facility] Repository (12 sources) Vicodin *ANALGESICS - OPIOID* Propensity to adverse reactions Unknown [employer] Other (6 sources) Acetaminophen Drug Allergy 08-20-19 24 vomiting [facility] (6 sources) HYDROcodone Drug Allergy 08-20-19 24 Vomiting [facility] (6 sources) oxyCODONE Drug Allergy 08-20-19 24 Vomiting [facility] (6 sources) Rocuronium Drug Allergy 08-20-19 24 breathing difficulty [facility] (6 sources) Sulfamethoxazole Drug Allergy 08-20-19 24 Unknown Reaction [facility] (6 sources) Trimethoprim Drug Allergy 08-20-19 24 Unknown Reaction [facility] (1 source) Acetaminophen / HYDROcodone; Translations: [HYDROCODONE-ACETAM INOPHEN] Drug Allergy 06-17-20 14 [facility] Repository (1 source) Acetaminophen / oxyCODONE; Translations: [OXYCODONE-ACETAMIN OPHEN] Drug Allergy 06-17-20 14 [facility] Repository Medications Current Medications Medication Drug Class(es) [...] a day for 10 days May, Active Nm-Szo-Bzviz-Calc ium Carb-K1 (Women's 50 Plus Multivitamin) 400 mcg-500 mg calcium-20 mcg tablet (6 sources) Start: 08-20-2023 take 1 tablet by mouth once daily Ry-Dhj-Uomrj-Calci um Carb-K1 (Women's 50 Plus Multivitamin) 400 mcg-500 mg calcium-20 mcg tablet Active 1 TAB PO Daily August 20, 2023 1:00am Start: 08-20-2023 take 1 tablet by christopher th once daily Pj-Nxl-Ywyfj-Calcium Carb-K1 (Women's 50 Plus Multivitamin) 400 mcg-500 [...] 15, 2023 9:24am take 1 tablet by [facility] every twenty-four hours Aspirin 81 81 MG [...] 11:55am docusate sodium 50 mg / sennosides, fci 8.6 mg oral tablet (9 sources) Start: [...] September 19, 2023 11:44am polyethylene glycol 3350 86765 mg powder for oral solution (6 sources) [...] 9:24am Start: 05-20-2023 take 1 tablet by [facility] twice daily as needed for pain traMADol [...] Coronary arteriosclerosis; Translations: [Atherosclerotic heart disease of [place] coronary artery without angina pectoris] Onset: 2 [...] Esophageal disorders Other aftercare (4 sources) Other termite helper (current) drug therapy; Translations: [OTH RESIDENTIAL CURRENT DRUG THERAPY] Onset: 11-06-2022 Episodic Other fractures (1 source) Collapsed vertebra, not elsewhere classified, lumbar region, initial encounter for fracture; Translations: [COLLAPSED VERT NEC LUMBAR INIT ENC] Onset: 01-31-2022 Episodic Other lower respiratory disease (4 sources) Dyspnea, unspecified; Translations: [DYSPNEA UNSPECIFIED] Onset: 05-08-2022 Episodic Results Test Name Value Interpretation Reference Range Facility XR knee RT 2Von 11-19-2023 XR knee RT 2V [facility] [address] [place] [address] XRay Report Signed Patient: Ashley Brown MR#: [id number] 1 : 1940 Acct:[id number] Age/Sex: 82 / F ADM Date: 11/19/23 Loc: [facility] Room: Type: [facility] Attending Dr: Magno Pichardo II, MD Copies to: Magno Pichardo MD Ordering Provider: Magno Pichardo MD Date of Service: 11/19/23 XR/XR tibia fibula RT 2V*: 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 She is agreeable to start Zetia and have repeat labs in 2-3 months. She verbalized understanding. Normal [facility] 36 Regarding lipid pane l result from [...] asking her to return my call. Normal [facility] Orders Onlyon 11-17-2023 Orders Only [id number] Ashley Brown 1940 F Date Provider Department Center 11/17/2023 9[facility] Family History Problem Relation Age of Onset Coronary artery disease Father Other Father Family Status - Relation Status Age at Father Normal [facility] Cholesterol in LDL Calc [Mas s/Vol]on 11-08-2023 Cholesterol in LDL [Mass/Vol] 80.0 mg/dL [facility] Comment on above: <100 mg/dl [id number] 0-129 mg/dl NEAR OR ABOVE [id number] mg/dl BORDERLINE [id number] mg/dl HIGH>190 mg/dl VERY HIGH Cholesterol in VLDL Calc [Ma ss/Vol]on 11-08-2023 Cholesterol in VLDL [Mass/Vol] 19.2 mg/dL [facility] Laboratory - Chemistry and C hemistry - challengeon 11-08-2023 Cholesterol [Mass/Vol] 184 mg/dL <=200 [facility] Cholesterol in HDL [Mass/Vol] 85 mg/dL 40-60 [facility] Comment on above: > or =60 mg/dl - LOW CARDIOVASCULAR RISK<40 mg/dl - HIGH CARDIOVASCULAR RISK Triglyceride [Mass/Vol] 96 mg/dL <=150 [facility] Serum or plasma total choles terol/high density lipoprotein (HDL) cholesterol mass marivel 11-08-2023 Cholesterol.total/Cho lesterol in HDL [Mass ratio] 2.2 {ratio} [facility] Comment on above: 3.3 - 4.4 LOW RISK4. 4 - 7.1 AVERAGE RISK7.1 - 11.0 MODERATE RISK>11.0 HIGH RISK Office Visiton 11-04-2023 Follow-up visit [id number] Ashley Brown 1940 F Date Provider Department Center 11/04/2023 Laurence-ODILIA MCACLLUM CARD [facility] Family History Problem Relation Age of Onset Coronary artery disease Father Other Father Family Status - Relation Status Age at Father Level of Service:08605 MI OFFICE/OUTPATIENT ESTABLISHED MOD MDM 30 MIN Normal [facility] XR knee RT 3V - NOT FOR ER U [place] 10-08-2023 XR knee RT 3V - NOT FOR ER USE [facility] [address] [place] [address] XRay Report Signed Patient: Ashley Brown MR#: [id number] 1 : 1940 Acct:[id number] Age/Sex: 82 / F ADM Date: 10/08/23 Loc: [facility] Room: Type: [facility] Attending Dr: Magno Pichardo II, MD Copies [...] Richard Oliver M.D.10/08/2023 2:15 PM Dictation Location: [place] [address] Transcribed By: [facility] 10/08/23 1415 Dictated By: Richard Oliver DO 10/08/23 1413 Signed By: 10/08/23 1415 Normal [facility] Alanine aminotransferase [En zymatic activity/volume] in Serum or PlasmaOrdered By: Heidi Mesa on 09-08-2023 ALT [Catalytic activity/Vol] 99 U/L 7-52 [facility] Albumin [Mass/volume] in Ser um or Plasma by Bromocresol green (BCG) dye binding methoOrdered By: Heidi Mesa on 09-08-2023 Albumin BCG dye [Mass/Vol] 3.4 g/dL 3.5-5.7 [facility] Alkaline phosphatase [Enzyma tic activity/volume] in Serum or PlasmaOrdered By: Heidi Mesa on 09-08-2023 ALP [Catalytic activity/Vol] 125 U/L 34-104 [facility] Aspartate aminotransferase [ Enzymatic activity/volume] in Serum or PlasmaOrdered By: Heidi Mesa on 09-08-2023 AST [Catalytic activity/Vol] 71 U/L 13-39 [facility] Basic Metabolic Panelon 08-28 Anion gap [Moles/Vol] 10.9 mmol/L Normal 6.0-15.0 [facility] Comment on above: Performed By: #### B MP, CBC #### [facility] [address] Calcium [Mass/Vol] 8.5 mg/dL Low 8.6-10.3 [facility] Comment on above: Performed By: #### B MP, CBC #### [address] Chloride [Moles/Vol] 103 mmol/L Normal 98-107 [facility] Comment on above: Performed By: #### B MP, CBC #### [address] CO2 [Moles/Vol] 25.7 mmol/L Normal 21.0-31.0 [facility] Comment on above: Performed By: #### B MP, CBC #### [address] Creatinine [Mass/Vol] 1.07 mg/dL Normal 0.60-1.20 [facility] Comment on above: Performed By: #### B MP, CBC #### [address] Creatinine Clr Calc Pharmacy 36.34 Normal [facility] Comment on above: Result Comment: PERF ORMED BY: [place] [address] PATHOLOGIST WINDSMITH BUBBA MERIDA M.D. Performed By: #### B MP, CBC #### [address] GFR/1.73 sq M.predicted MDRD (S/P/Bld) [Vol rate/Area] 52.511 mL/min/{1.73_m2} Normal [facility] Comment on above: Performed By: #### B MP, CBC #### [address] Glucose [Mass/Vol] 103 mg/dL High 70-100 [facility] Comment on above: Result Comment: [place] Glucose Reference Range is dependent on time and content of last meal. Glucose of more than 200 mg/dL in a nonstressed, ambulatory subject supports the diagnosis of Diabetes Mellitus. ADA recommended reference range Performed By: #### B MP, CBC #### [address] Potassium [Moles/Vol] 3.6 mmol/L Normal 3.5-5.1 [facility] Comment on above: Performed By: #### B MP, CBC #### [facility] [address] Sodium [Moles/Vol] 136 mmol/L Normal 136-145 [facility] Comment on above: Performed By: #### B MP, CBC #### [facility] [address] Urea nitrogen [Mass/Vol] 20 mg/dL Normal 7-25 [facility] Comment on above: Performed By: #### B MP, CBC #### [facility] [address] Basophils Auto (Bld) [#/Vol] Ordered By: Heidi Mesa on 09-08-2023 Basophils (Bld) [#/Vol] 0.1 10*3/uL 0.0-0.2 [facility] Basophils/100 WBC Auto (Bld) Ordered By: Heidi Mesa on 09-08-2023 Basophils/100 WBC (Bld) 1.3 % . [facility] Bilirubin.total [Mass/volume ] in Serum or PlasmaOrdered By: Heidi Mesa on 09-08-2023 Bilirubin [Mass/Vol] 0.4 mg/dL 0.3-1.0 [facility] Calcium [Mass/volume] in Ser um or PlasmaOrdered By: Heidi Mesa on 09-08-2023 Calcium [Mass/Vol] 8.5 mg/dL 8.6-10.3 [facility] Carbon dioxide, total [Moles /volume] in Serum or PlasmaOrdered By: Heidi Mesa on 09-08-2023 CO2 [Moles/Vol] 25.7 mmol/L 21.0-31.0 [facility] Chloride [Moles/volume] in S tejas or PlasmaOrdered By: Heidi Mesa on 09-08-2023 Chloride [Moles/Vol] 103 mmol/L 98-107 [facility] Complete Blood Count Auto Di ffon 09-08-2023 Basophils (Bld) [#/Vol] 0.1 10*3/uL Normal 0.0-0.2 [facility] Comment on above: Result Comment: PERF ORMED BY: [place] [address] PATHOLOGIST WINDSMITH BUBBA MERIDA M.D. Performed By: #### B MP, CBC #### [address] Basophils/100 WBC (Bld) 1.3 % Normal . [facility] Comment on above: Performed By: #### B MP, CBC #### [address] Eosinophils (Bld) [#/Vol] 0.3 10*3/uL Normal 0.0-0.45 [facility] Comment on above: Performed By: #### B MP, CBC #### [address] Eosinophils/100 WBC (Bld) 4.0 % Normal . [facility] Comment on above: Performed By: #### B MP, CBC #### [address] Erythrocyte distribution width (RBC) [Ratio] 14.0 % Normal 11.9-15.3 [facility] Comment on above: Performed By: #### B MP, CBC #### [address] Hematocrit (Bld) [Volume fraction] 34.4 % Normal 34.0-46.4 [facility] Comment on above: Performed By: #### B MP, CBC #### [address] Hemoglobin (Bld) [Mass/Vol] 11.3 g/dL Low 11.8-15.4 [facility] Comment on above: Performed By: #### B MP, CBC #### [address] Lymphocytes (Bld) [#/Vol] 2.3 10*3/uL Normal 1.00-4.8 [facility] Comment on above: Performed By: #### B MP, CBC #### [address] [address] [place] Lymphocytes/100 WBC (Bld) 31.1 % Normal . [facility] Comment on above: Performed By: #### B MP, CBC #### [address] MCH (RBC) [Entitic mass] 32.2 pg Normal 24.7-34.3 [facility] Comment on above: Performed By: #### B MP, CBC #### [address] MCV (RBC) [Entitic vol] 97.7 fL Normal 80-100 [facility] Comment on above: Performed By: #### B MP, CBC #### [address] Mean Corpuscular HGB Conc 32.9 g/dL Normal 32.0-35.0 [facility] Comment on above: Performed By: #### B MP, CBC #### [address] Monocytes (Bld) [#/Vol] 0.7 10*3/uL Normal 0.0-0.8 [facility] Comment on above: Performed By: #### B MP, CBC #### [address] Monocytes/100 WBC (Bld) 9.5 % Normal . [facility] Comment on above: Performed By: #### B MP, CBC #### [address] Neutrophils (Bld) [#/Vol] 4.0 10*3/uL Normal 1.8-7.7 [facility] Comment on above: Performed By: #### B MP, CBC #### [address] Neutrophils/100 WBC (Bld) 54.1 % Normal . [facility] Comment on above: Performed By: #### B MP, CBC #### [address] NRBC% 0.1 /100{WBC} Normal 0-0.5 [facility] Comment on above: Performed By: #### B MP, CBC #### [address] Platelet mean volume (Bld) [Entitic vol] 8.0 fL Normal 6.3-10.7 [facility] Comment on above: Performed By: #### B MP, CBC #### [address] Platelets (Bld) [#/Vol] 419 10*3/uL Normal 150-450 [facility] Comment on above: Performed By: #### B MP, CBC #### [address] RBC (Bld) [#/Vol] 3.52 10*6/uL Low 3.60-5.00 [facility] Comment on above: Performed By: #### B MP, CBC #### [address] WBC (Bld) [#/Vol] 7.3 10*3/uL Normal 3.8-11.6 The [facility] Comment on above: Performed By: #### B MP, CBC #### [address] Comprehensive Metabolic Pane elia 09-08-2023 Albumin [Mass/Vol] 3.4 g/dL Low 3.5-5.7 [facility] Comment on above: Performed By: #### C MP ####[address] Albumin/Globulin [Mass ratio] 1.2 {ratio} Normal [facility] Comment on above: Performed By: #### C MP ####[address] ALP [Catalytic activity/Vol] 125 U/L High 34-104 [facility] Comment on above: Performed By: #### C MP ####[address] ALT [Catalytic activity/Vol] 99 U/L High 7-52 [facility] Comment on above: Performed By: #### C MP ####[place] [id number] [facility] Anion gap [Moles/Vol] 10.0 mmol/L Normal 6.0-15.0 [facility] e [facility] Comment on above: Performed By: #### C MP ####[place] [id number] [facility] AST [Catalytic activity/Vol] 71 U/L High 13-39 [facility] Comment on above: Performed By: #### C MP ####[place] [id number] [facility] Bilirubin [Mass/Vol] 0.4 mg/dL Normal 0.3-1.0 [facility] Comment on above: Performed By: #### C MP ####[place] [id number] [facility] Calcium [Mass/Vol] 8.9 mg/dL Normal 8.6-10.3 [facility] Comment on above: Performed By: #### C MP ####[place] [id number] [facility] Chloride [Moles/Vol] 104 mmol/L Normal 98-107 [facility] Comment on above: Performed By: #### C MP ####[place] [id number] [facility] CO2 [Moles/Vol] 27.4 mmol/L Normal 21.0-31.0 [facility] Comment on above: Performed By: #### C MP ####[place] [id number] [facility] Creatinine [Mass/Vol] 0.91 mg/dL Normal 0.60-1.20 [facility] Comment on above: Performed By: #### C MP ####[place] [id number] [facility] Creatinine Clr Calc Pharmacy 42.73 Normal [facility] Comment on above: Result Comment: PERF ORMED BY: [facility] [address] PATHOLOGIST WINDSMITH BUBBA MERIDA M.D. Performed By: #### C MP ####[place] [id number] [facility] GFR/1.73 sq M.predicted MDRD (S/P/Bld) [Vol rate/Area] mL/min/{1.73_m2} Normal [facility] Comment on above: Performed By: #### C MP ####[address] Globulin (S) [Mass/Vol] 2.9 g/dL Normal [facility] Comment on above: Performed By: #### C MP ####[address] Glucose [Mass/Vol] 85 mg/dL Normal 70-100 [facility] Comment on above: Result Comment: [facility] Glucose Reference Range is dependent on time and content of last meal. Glucose of more than 200 mg/dL in a nonstressed, ambulatory subject supports the diagnosis of Diabetes Mellitus. ADA recommended reference range Performed By: #### C MP ####[address] Potassium [Moles/Vol] 4.4 mmol/L Normal 3.5-5.1 [facility] Comment on above: Performed By: #### C MP ####[address] Protein [Mass/Vol] 6.3 g/dL Low 6.4-8.9 [facility] Comment on above: Performed By: #### C MP ####[address] Sodium [Moles/Vol] 137 mmol/L Normal 136-145 [facility] Comment on above: Performed By: #### C MP ####[address] Urea nitrogen [Mass/Vol] 17 mg/dL Normal 7-25 [facility] Comment on above: Performed By: #### C MP ####[facility] [id number] [place] [address] [facility] Creatinine [Mass/volume] in Serum or PlasmaOrdered By: Heidi Mesa on 09-08-2023 Creatinine [Mass/Vol] 1.07 mg/dL 0.60-1.20 [facility] Eosinophils Auto (Bld) [#/Vo l]Ordered By: Heidi Mesa on 09-08-2023 Eosinophils (Bld) [#/Vol] 0.3 10*3/uL 0.0-0.45 [facility] Eosinophils/100 WBC Auto (Bl d)Ordered By: Heidi Mesa on 09-08-2023 Eosinophils/100 WBC (Bld) 4.0 % . [facility] Erythrocyte distribution wid th Auto (RBC) [Ratio]Ordered By: Heidi Mesa on 09-08-2023 Erythrocyte distribution width (RBC) [Ratio] 14.0 % 11.9-15.3 [facility] Globulin Calc (S) [Mass/Vol] Ordered By: Heidi Mesa on 09-08-2023 Globulin (S) [Mass/Vol] 2.9 g/dL [facility] Glucose [Mass/volume] in Ser um or PlasmaOrdered By: Heidi Mesa on 09-08-2023 Glucose [Mass/Vol] 103 mg/dL 70-100 [facility] Comment on above: ADA recommended refe rence rangeRandom Glucose Reference Range is dependent on time and content of last meal. Glucose of more than 200 mg/dL in a nonstressed, ambulatory subject supports the diagnosis of Diabetes Mellitus. Hematocrit Auto (Bld) [Volum e fraction]Ordered By: Heidi Mesa on 09-08-2023 Hematocrit (Bld) [Volume fraction] 34.4 % 34.0-46.4 [facility] Hemoglobin [Mass/volume] in BloodOrdered By: Heidi Mesa on 09-08-2023 Hemoglobin (Bld) [Mass/Vol] 11.3 g/dL 11.8-15.4 [facility] Leukocytes [#/volume] correc alvaro for nucleated erythrocytes in Blood by Automated counOrdered By: Heidi Mesa on 09-08-2023 WBC corrected for nucl RBC Auto (Bld) [#/Vol] 7.3 10*3/uL 3.8-11.6 [facility] Lymphocytes Auto (Bld) [#/Vo l]Ordered By: Heidi Mesa on 09-08-2023 Lymphocytes (Bld) [#/Vol] 2.3 10*3/uL 1.00-4.8 [facility] Lymphocytes/100 WBC Auto (Bl d)Ordered By: Heidi Mesa on 09-08-2023 Lymphocytes/100 WBC (Bld) 31.1 % . [facility] MCH Auto (RBC) [Entitic mass ]Ordered By: Heidi Mesa on 09-08-2023 MCH (RBC) [Entitic mass] 32.2 pg 24.7-34.3 [facility] MCHC Auto (RBC) [Mass/Vol]Or dered By: Heidi Mesa on 09-08-2023 MCHC (RBC) [Mass/Vol] 32.9 g/dL 32.0-35.0 [facility] MCV Auto (RBC) [Entitic vol] Ordered By: Heidi Mesa on 09-08-2023 MCV (RBC) [Entitic vol] 97.7 fL 80-100 [facility] Monocytes Auto (Bld) [#/Vol] Ordered By: Heidi Mesa on 09-08-2023 Monocytes (Bld) [#/Vol] 0.7 10*3/uL 0.0-0.8 [facility] Monocytes/100 WBC Auto (Bld) Ordered By: Heidi Mesa on 09-08-2023 Monocytes/100 WBC (Bld) 9.5 % . [facility] Neutrophils Auto (Bld) [#/Vo l]Ordered By: Heidi Mesa on 09-08-2023 Neutrophils (Bld) [#/Vol] 4.0 10*3/uL 1.8-7.7 [facility] Neutrophils/100 WBC Auto (Bl d)Ordered By: Heidi Mesa on 09-08-2023 Neutrophils/100 WBC (Bld) 54.1 % . [facility] No Panel InformationOrdered By: Heidi Mesa on 09-08-2023 Estimated GFR (CKD-EPI) 52.511 mL/Min [facility] Creatinine Clearance (Chem 36.34 [facility] Nucleated erythrocytes [Pres ence] in Blood by Automated countOrdered By: Heidi Mesa on 09-08-2023 Nucleated RBC Auto Ql (Bld) 0.1 /100{WBC} 0-0.5 [facility] Platelet mean volume Auto (B ld) [Entitic vol]Ordered By: Heidi Mesa on 09-08-2023 Platelet mean volume (Bld) [Entitic vol] 8.0 fL 6.3-10.7 [facility] Platelets Auto (Bld) [#/Vol] Ordered By: Heidi Mesa on 09-08-2023 Platelets (Bld) [#/Vol] 419 10*3/uL 150-450 [facility] Potassium [Moles/volume] in Serum or PlasmaOrdered By: Heidi Mesa on 09-08-2023 Potassium [Moles/Vol] 3.6 mmol/L 3.5-5.1 [facility] Protein [Mass/volume] in Ser um or PlasmaOrdered By: Heidi Mesa on 09-08-2023 Protein [Mass/Vol] 6.3 g/dL 6.4-8.9 [facility] RBC Auto (Bld) [#/Vol]Ordere d By: Heidi Mesa on 09-08-2023 RBC (Bld) [#/Vol] 3.52 10*6/uL 3.60-5.00 [facility] Serum or plasma albumin/glob ulin mass ratioOrdered By: Heidi Mesa on 09-08-2023 Albumin/Globulin [Mass ratio] 1.2 {ratio} [facility] Serum or plasma anion gap de terminationOrdered By: Heidi Mesa on 09-08-2023 Anion gap [Moles/Vol] 10.9 mmol/L 6.0-15.0 [facility] Sodium [Moles/volume] in Ser um or PlasmaOrdered By: Heidi Mesa on 09-08-2023 Sodium [Moles/Vol] 136 mmol/L 136-145 [facility] Urea nitrogen [Mass/volume] in Serum or PlasmaOrdered By: Heidi Mesa on 09-08-2023 Urea nitrogen [Mass/Vol] 20 mg/dL 7-25 [facility] WBC Auto (Bld) [#/Vol]Ordere d By: Heidi Mesa on 09-08-2023 WBC (Bld) [#/Vol] 7.3 10*3/uL 3.8-11.6 [facility] Bilirubin.direct [Mass/volum e] in Serum or PlasmaOrdered By: Carol Holland on 09-07-2023 Bilirubin.direct [Mass/Vol] 0.10 mg/dL 0.03-0.18 [facility] Hepatic Panelon 09-07-2023 Albumin [Mass/Vol] 3.7 g/dL Normal 3.5-5.7 [facility] Comment on above: Performed By: #### H EPATIC ####[address] Albumin/Globulin [Mass ratio] 1.2 {ratio} Normal [facility] Comment on above: Performed By: #### H EPATIC ####[place] [id number] [facility] [place] ALP [Catalytic activity/Vol] 128 U/L High 34-104 [facility] Comment on above: Result Comment: PERF ORMED BY: [facility] [address] [place] [id number] PATHOLOGIST WINDSMITH BUBBA MERIDA M.D. Performed By: #### H EPATIC ####[place] [id number] [facility] [place] ALT [Catalytic activity/Vol] 126 U/L High 7-52 [facility] Comment on above: Performed By: #### H EPATIC ####[place] [id number] [facility] [place] AST [Catalytic activity/Vol] 115 U/L High 13-39 [facility] Comment on above: Performed By: #### H EPATIC ####[place] [address] Bilirubin [Mass/Vol] 0.5 mg/dL Normal 0.3-1.0 [facility] Comment on above: Performed By: #### H EPATIC ####[address] Bilirubin,Indirect 0.4 mg/dL Normal [facility] Comment on above: Performed By: #### H EPATIC ####[address] Bilirubin.indirect [Mass/Vol] 0.10 mg/dL Normal 0.03-0.18 [facility] Comment on above: Performed By: #### H EPATIC ####[address] Globulin (S) [Mass/Vol] 3.2 g/dL Normal [facility] Comment on above: Performed By: #### H EPATIC ####[address] Protein [Mass/Vol] 6.9 g/dL Normal 6.4-8.9 [facility] Comment on above: Performed By: #### H EPATIC ####[address] Serum or plasma non-glucuron idated bilirubin measurement (mass/volume)Ordered By: Carol Holland on 09-07-2023 Bilirubin.indirect [Mass/Vol] 0.4 mg/dL [facility] US venous duplex LE RTon US venous duplex LE RT [facility] [address] [place] [address] [place] [address] Ultrasound Report Signed Patient: Ashley Brown MR#: [id number] 1 : 1940 Acct:[id number] Age/Sex: 82 / F ADM Date: 09/02/23 Loc: Room: 0S6010-1 Type: ADM IN Attending Dr: Elijah Mayers [...] Richard Cochran M.D.09/06/2023 9:29 AM Dictation Location: [place] [address] Tech: Yuridia Wheelerley Transcribed By: JESUSITA 09/06/23928 Dictated By: Richard Cochran MD 09/06/23927 Signed By: 09/06/23928 Normal [facility] Complete Blood Count Auto Di ffon 09-03-2023 Basophils (Bld) [#/Vol] 0.0 10*3/uL Normal 0.0-0.2 [facility] Comment on above: Result Comment: PERF ORMED BY: [facility] [address] [place] [address] PATHOLOGIST WINDSMITH BUBBA MERIDA M.D. Performed By: #### P AB, CMP, CBC ####[address] Basophils/100 WBC (Bld) 0.3 % Normal . [facility] Comment on above: Performed By: #### P AB, CMP, CBC ####[address] Eosinophils (Bld) [#/Vol] 0.1 10*3/uL Normal 0.0-0.45 [facility] Comment on above: Performed By: #### P AB, CMP, CBC ####[place] [id number] [place] Eosinophils/100 WBC (Bld) 0.8 % Normal . [facility] Comment on above: Performed By: #### P AB, CMP, CBC ####[address] Erythrocyte distribution width (RBC) [Ratio] 13.3 % Normal 11.9-15.3 [facility] Comment on above: Performed By: #### P AB, CMP, CBC ####[address] Hematocrit (Bld) [Volume fraction] 34.1 % Normal 34.0-46.4 [facility] Comment on above: Performed By: #### P AB, CMP, CBC ####[address] Hemoglobin (Bld) [Mass/Vol] 11.4 g/dL Low 11.8-15.4 [facility] Comment on above: Performed By: #### P AB, CMP, CBC ####[address] Lymphocytes (Bld) [#/Vol] 0.8 10*3/uL Low 1.00-4.8 [facility] Comment on above: Performed By: #### P AB, CMP, CBC ####[address] Lymphocytes/100 WBC (Bld) 10.7 % Normal . [facility] Comment on above: Performed By: #### P AB, CMP, CBC ####[address] MCH (RBC) [Entitic mass] 32.4 pg Normal 24.7-34.3 [facility] Comment on above: Performed By: #### P AB, CMP, CBC ####[address] MCV (RBC) [Entitic vol] 97.5 fL Normal 80-100 [facility] Comment on above: Performed By: #### P AB, CMP, CBC ####[place] [id number] [facility] [place] Mean Corpuscular HGB Conc 33.3 g/dL Normal 32.0-35.0 [facility] Comment on above: Performed By: #### P AB, CMP, CBC ####[address] Monocytes (Bld) [#/Vol] 0.9 10*3/uL High 0.0-0.8 [facility] Comment on above: Performed By: #### P AB, CMP, CBC ####[address] Monocytes/100 WBC (Bld) 11.5 % Normal . [facility] Comment on above: Performed By: #### P AB, CMP, CBC ####[address] Neutrophils (Bld) [#/Vol] 6.0 10*3/uL Normal 1.8-7.7 [facility] Comment on above: Performed By: #### P AB, CMP, CBC ####[address] Neutrophils/100 WBC (Bld) 76.7 % Normal . [facility] Comment on above: Performed By: #### P AB, CMP, CBC ####[address] NRBC% 0.0 /100{WBC} Normal 0-0.5 [facility] Comment on above: Performed By: #### P AB, CMP, CBC ####[place] [id number] [facility] [place] Platelet mean volume (Bld) [Entitic vol] 8.2 fL Normal 6.3-10.7 [facility] Comment on above: Performed By: #### P AB, CMP, CBC ####[address] Platelets (Bld) [#/Vol] 296 10*3/uL Normal 150-450 [facility] Comment on above: Performed By: #### P AB, CMP, CBC ####[address] RBC (Bld) [#/Vol] 3.50 10*6/uL Low 3.60-5.00 [facility] Comment on above: Performed By: #### P AB, CMP, CBC ####[address] WBC (Bld) [#/Vol] 7.8 10*3/uL Normal 3.8-11.6 [facility] Comment on above: Performed By: #### P AB, CMP, CBC ####[address] Comprehensive Metabolic Pane elia 09-03-2023 Albumin [Mass/Vol] 3.3 g/dL Low 3.5-5.7 [facility] Comment on above: Performed By: #### P AB, CMP, CBC ####[address] Albumin/Globulin [Mass ratio] 1.5 {ratio} Normal [facility] Comment on above: Performed By: #### P AB, CMP, CBC ####[address] ALP [Catalytic activity/Vol] 178 U/L High 34-104 [facility] Comment on above: Performed By: #### P AB, CMP, CBC ####[address] ALT [Catalytic activity/Vol] 258 U/L High 7-52 [facility] Comment on above: Performed By: #### P AB, CMP, CBC ####[address] Anion gap [Moles/Vol] 11.9 mmol/L Normal 6.0-15.0 [facility] Comment on above: Performed By: #### P AB, CMP, CBC ####[address] AST [Catalytic activity/Vol] 273 U/L High 13-39 [facility] Comment on above: Performed By: #### P AB, CMP, CBC ####[address] Bilirubin [Mass/Vol] 0.4 mg/dL Normal 0.3-1.0 [facility] Comment on above: Performed By: #### P AB, CMP, CBC ####[address] Calcium [Mass/Vol] 8.8 mg/dL Normal 8.6-10.3 [facility] Comment on above: Performed By: #### P AB, CMP, CBC ####[address] Chloride [Moles/Vol] 101 mmol/L Normal 98-107 [facility] Comment on above: Performed By: #### P AB, CMP, CBC ####[address] CO2 [Moles/Vol] 28.6 mmol/L Normal 21.0-31.0 [facility] Comment on above: Performed By: #### P AB, CMP, CBC ####[address] Creatinine [Mass/Vol] 0.78 mg/dL Normal 0.60-1.20 [facility] Comment on above: Performed By: #### P AB, CMP, CBC ####[address] Creatinine Clr Calc Pharmacy 47.47 Normal [facility] Comment on above: Performed By: #### P AB, CMP, CBC ####[address] GFR/1.73 sq M.predicted MDRD (S/P/Bld) [Vol rate/Area] mL/min/{1.73_m2} Normal [facility] Comment on above: Performed By: #### P AB, CMP, CBC ####[place] [id number] [place] Globulin (S) [Mass/Vol] 2.2 g/dL Normal [facility] Comment on above: Performed By: #### P AB, CMP, CBC ####[address] Glucose [Mass/Vol] 117 mg/dL High 70-100 [facility] Comment on above: Result Comment: [facility] Glucose Reference Range is dependent on time and content of last meal. Glucose of more than 200 mg/dL in a nonstressed, ambulatory subject supports the diagnosis of Diabetes Mellitus. ADA recommended reference range Performed By: #### P AB, CMP, CBC ####[address] Potassium [Moles/Vol] 4.5 mmol/L Normal 3.5-5.1 [facility] Comment on above: Performed By: #### P AB, CMP, CBC ####[address] Protein [Mass/Vol] 5.5 g/dL Low 6.4-8.9 [facility] Comment on above: Performed By: #### P AB, CMP, CBC ####[address] Sodium [Moles/Vol] 137 mmol/L Normal 136-145 [facility] Comment on above: Performed By: #### P AB, CMP, CBC ####[address] Urea nitrogen [Mass/Vol] 11 mg/dL Normal 7-25 [facility] Comment on above: Performed By: #### P AB, CMP, CBC ####[place] [phone] [facility] Prealbuminon 09-03-2023 Prealbumin [Mass/Vol] 15.7 mg/dL Low 17.0-34.0 [facility] Comment on above: Result Comment: PERF ORMED BY: [facility] [address] [place] [address] PATHOLOGIST WINDSMITH BUBBA MERIDA M.D. Performed By: #### P AB, CMP, CBC ####[facility] Prealbumin [Mass/volume] in Serum or PlasmaOrdered By: Elijah Mayers on 09-03-2023 Prealbumin [Mass/Vol] 15.7 mg/dL 17.0-34.0 [facility] Complete Blood Count Auto Di ffon 09-02-2023 Basophils (Bld) [#/Vol] 0.1 10*3/uL Normal 0.0-0.2 [facility] Comment on above: Result Comment: PERF ORMED BY: [place] [address] PATHOLOGIST WINDSMITH BUBBA MERDIA M.D. Performed By: #### C BC #### [address] Basophils/100 WBC (Bld) 0.9 % Normal . [facility] Comment on above: Performed By: #### C BC #### [address] Eosinophils (Bld) [#/Vol] 0.2 10*3/uL Normal 0.0-0.45 [facility] Comment on above: Performed By: #### C BC #### [address] Eosinophils/100 WBC (Bld) 2.5 % Normal . [facility] Comment on above: Performed By: #### C BC #### [address] Erythrocyte distribution width (RBC) [Ratio] 13.4 % Normal 11.9-15.3 [facility] Comment on above: Performed By: #### C BC #### [address] Hematocrit (Bld) [Volume fraction] 32.3 % Low 34.0-46.4 [facility] Comment on above: Performed By: #### C BC #### [address] [place] [address] [place] Hemoglobin (Bld) [Mass/Vol] 10.9 g/dL Low 11.8-15.4 [facility] Comment on above: Performed By: #### C BC #### [address] Lymphocytes (Bld) [#/Vol] 0.7 10*3/uL Low 1.00-4.8 [facility] Comment on above: Performed By: #### C BC #### [address] Lymphocytes/100 WBC (Bld) 9.5 % Normal . [facility] Comment on above: Performed By: #### C BC #### [address] MCH (RBC) [Entitic mass] 32.7 pg Normal 24.7-34.3 [facility] Comment on above: Performed By: #### C BC #### [address] MCV (RBC) [Entitic vol] 96.7 fL Normal 80-100 [facility] Comment on above: Performed By: #### C BC #### [address] Mean Corpuscular HGB Conc 33.8 g/dL Normal 32.0-35.0 [facility] Comment on above: Performed By: #### C BC #### [address] Monocytes (Bld) [#/Vol] 0.7 10*3/uL Normal 0.0-0.8 [facility] Comment on above: Performed By: #### C BC #### [address] Monocytes/100 WBC (Bld) 9.5 % Normal . [facility] Comment on above: Performed By: #### C BC #### [address] Neutrophils (Bld) [#/Vol] 5.8 10*3/uL Normal 1.8-7.7 [facility] Comment on above: Performed By: #### C BC #### [facility] [address] Neutrophils/100 WBC (Bld) 77.6 % Normal . [facility] Comment on above: Performed By: #### C BC #### [facility] [address] NRBC% 0.0 /100{WBC} Normal 0-0.5 [facility] Comment on above: Performed By: #### C BC #### [facility] [address] Platelet mean volume (Bld) [Entitic vol] 8.1 fL Normal 6.3-10.7 [facility] Comment on above: Performed By: #### C BC #### [facility] [address] Platelets (Bld) [#/Vol] 272 10*3/uL Normal 150-450 [facility] Comment on above: Performed By: #### C BC #### [facility] [address] [place] [address] [place] RBC (Bld) [#/Vol] 3.34 10*6/uL Low 3.60-5.00 [facility] Comment on above: Performed By: #### C BC #### [facility] [address] [place] [address] [place] WBC (Bld) [#/Vol] 7.5 10*3/uL Normal 3.8-11.6 [facility] Comment on above: Performed By: #### C BC #### [address] ABO/Rh Retypeon 09-01-2023 ABO/RH Recheck Result Positive Normal [facility] Comment on above: Result Comment: PERF ORMED BY: [place] [address] PATHOLOGIST WINDSMITH BUBBA MERIDA M.D. Basic Metabolic Panelon -0 Anion gap [Moles/Vol] 11.0 mmol/L Normal 6.0-15.0 Th e [facility] Comment on above: Performed By: #### C BC #### [address] Calcium [Mass/Vol] 9.3 mg/dL Normal 8.6-10.3 [facility] Comment on above: Performed By: #### C BC #### [address] Chloride [Moles/Vol] 105 mmol/L Normal 98-107 [facility] Comment on above: Performed By: #### C BC #### [address] CO2 [Moles/Vol] 25.7 mmol/L Normal 21.0-31.0 [facility] Comment on above: Performed By: #### C BC #### [address] Creatinine [Mass/Vol] 0.81 mg/dL Normal 0.60-1.20 [facility] Comment on above: Performed By: #### C BC #### [place] [address] [place] Creatinine Clr Calc Pharmacy 47.31 Normal [facility] Comment on above: Result Comment: PERF ORMED BY: [place] [address] PATHOLOGIST WINDSMITH BUBBA MERIDA M.D. Performed By: #### C BC #### [place] [address] [place] GFR/1.73 sq M.predicted MDRD (S/P/Bld) [Vol rate/Area] mL/min/{1.73_m2} Normal [facility] Comment on above: Performed By: #### C BC #### [address] Glucose [Mass/Vol] 81 mg/dL Normal 70-100 [facility] Comment on above: Result Comment: [place] Glucose Reference Range is dependent on time and content of last meal. Glucose of more than 200 mg/dL in a nonstressed, ambulatory subject supports the diagnosis of Diabetes Mellitus. ADA recommended reference range Performed By: #### C BC #### [address] Potassium [Moles/Vol] 3.7 mmol/L Normal 3.5-5.1 [facility] Comment on above: Performed By: #### C BC #### [address] Sodium [Moles/Vol] 138 mmol/L Normal 136-145 [facility] Comment on above: Performed By: #### C BC #### [address] Urea nitrogen [Mass/Vol] 11 mg/dL Normal 7-25 [facility] Comment on above: Performed By: #### C BC #### [address] Elia 09-01-2023 L Specimen: [id number] Received: 09/02/23 Status: SOUAntonio Rechan Num: [id number] Spec Type: Surgical Subm Dr: Magno Pichardo MD Tissues: A Joint/Knee (RT KNEE) Procedures: HE, Gross/Micro L4, Decalcification Age/ Patient Sex Location Account Attending Physician Ashley Brown 82/F 4N [id number] Magno Pichardo MD SPEC NUM: [id number] RECD: 09/02/23 STATUS: MENG RE NUM: [id number] GINA: 09/01/[address]: Magon Pichardo MD ENTERED: 09/02/23 [facility] DR: SPEC TYPE: Surgical DEPT: S [...] is taken. Gross examination only. CPT Codes 49421 Gross Photo Specimen: [id number] Received: 09/02/23 Status: MENG Nelly Num: [id number] Spec Type: Surgical Subm Dr: Magno Pichardo MD Tissues: A Joint/Knee (RT KNEE) Procedures: SISSY, Gross/Micro L4, Decalcification Patient: MingoAshley [id number] (Continued) Signed (signature on file) Nik Garza MD 09/10/23 1049 Normal [facility] XR knee RT 2Von 09-01-2023 XR knee RT 2V [place] [address] XRay Report Signed Patient: Ashley Brown MR#: [id number] 1 : 1940 Acct:[id number] Age/Sex: 82 / F ADM Date: 09/01/23 Loc: Room: [address] [place] [address] Type: ADM IN Attending Dr: Magno Pichardo [...] Richard Oliver M.D.09/01/2023 3:20 PM Dictation Location: [place] [address] Transcribed By: [facility] 09/01/23 1520 Dictated By: Richard Oliver DO 09/01/23 1517 Signed By: 09/01/23 1520 Normal [facility] Automated erythrocytes count in urine sediment (number/area)Ordered By: Magno Pichardo on 08-20-2023 RBC Auto (Urine sed) [#/Area] 0-1 [HPF] 0-4 [facility] Automated leukocytes count i n urine sediment (number/area)Ordered By: Magno Pichardo on 08-20-2023 WBC Auto (Urine sed) [#/Area] 10-19 [HPF] 0-4 [facility] Basic Metabolic Panelon 08-01 Anion gap [Moles/Vol] 10.6 mmol/L Normal 6.0-15.0 Th e [facility] Comment on above: Performed By: #### A DDONUAPLUS, CUU #### [address] Calcium [Mass/Vol] 9.7 mg/dL Normal 8.6-10.3 [facility] Comment on above: Result Comment: PERF ORMED BY: [place] [address] PATHOLOGIST WINDSMITH BUBBA MERIDA M.D. Performed By: #### A DDONUAPLUS, CUU #### [address] Chloride [Moles/Vol] 104 mmol/L Normal 98-107 [facility] Comment on above: Performed By: #### A DDONUAPLUS, CUU #### [address] CO2 [Moles/Vol] 26.3 mmol/L Normal 21.0-31.0 [facility] Comment on above: Performed By: #### A DDONUAPLUS, CUU #### [address] Creatinine [Mass/Vol] 0.88 mg/dL Normal 0.60-1.20 [facility] Comment on above: Performed By: #### A DDONUAPLUS, CUU #### [place] [address] [place] GFR/1.73 sq M.predicted MDRD (S/P/Bld) [Vol rate/Area] mL/min/{1.73_m2} Normal [facility] Comment on above: Performed By: #### A DDONUAPLUS, CUU #### [address] Glucose [Mass/Vol] 81 mg/dL Normal 70-100 [facility] Comment on above: Result Comment: [place] Glucose Reference Range is dependent on time and content of last meal. Glucose of more than 200 mg/dL in a nonstressed, ambulatory subject supports the diagnosis of Diabetes Mellitus. ADA recommended reference range Performed By: #### A DDONUAPLUS, CUU #### [facility] [address] Potassium [Moles/Vol] 3.9 mmol/L Normal 3.5-5.1 [facility] Comment on above: Performed By: #### A DDONUAPLUS, CUU #### [facility] [address] Sodium [Moles/Vol] 137 mmol/L Normal 136-145 [facility] Comment on above: Performed By: #### A DDONUAPLUS, CUU #### [facility] [address] Urea nitrogen [Mass/Vol] 19 mg/dL Normal 7-25 [facility] Comment on above: Performed By: #### A DDONUAPLUS, CUU #### [facility] [address] Basophils Auto (Bld) [#/Vol] Ordered By: Magno Pichardo on 08-20-2023 Basophils (Bld) [#/Vol] 0.1 10*3/uL 0.0-0.2 [facility] Basophils/100 WBC Auto (Bld) Ordered By: Magno Pichardo on 08-20-2023 Basophils/100 WBC (Bld) 1.1 % . [facility] Bilirubin Test strip Ql (U)O rdered By: Magno Pichardo on 08-20-2023 Bilirubin Ql (U) Negative Negative [facility] Calcium [Mass/volume] in Ser um or PlasmaOrdered By: Magno Pichardo on 08-20-2023 Calcium [Mass/Vol] 9.7 mg/dL 8.6-10.3 [facility] Carbon dioxide, total [Moles /volume] in Serum or PlasmaOrdered By: Magno Pichardo on 08-20-2023 CO2 [Moles/Vol] 26.3 mmol/L 21.0-31.0 [facility] Chloride [Moles/volume] in S tejas or PlasmaOrdered By: Magno Pichardo on 08-20-2023 Chloride [Moles/Vol] 104 mmol/L 98-107 [facility] Color Auto (U)Ordered By: Suri Mcclendonle on 08-20-2023 Color (U) Yellow Yellow [facility] Complete Blood Count Auto Di ffon 08-20-2023 Basophils (Bld) [#/Vol] 0.1 10*3/uL Normal 0.0-0.2 [facility] Comment on above: Result Comment: PERF ORMED BY: [place] [address] PATHOLOGIST WINDSMITH BUBBA MERIDA M.D. Performed By: #### A ESTEPHANIE CUU #### [address] Basophils/100 WBC (Bld) 1.1 % Normal . [facility] Comment on above: Performed By: #### A ESTEPHANIE CUU #### [address] Eosinophils (Bld) [#/Vol] 0.2 10*3/uL Normal 0.0-0.45 [facility] Comment on above: Performed By: #### A ESTEPHANIE CUU #### [address] Eosinophils/100 WBC (Bld) 3.5 % Normal . [facility] Comment on above: Performed By: #### A ESTEPHANIE, CUU #### [address] Erythrocyte distribution width (RBC) [Ratio] 14.3 % Normal 11.9-15.3 [facility] Comment on above: Performed By: #### A ESTEPHANIE CUU #### [address] Hematocrit (Bld) [Volume fraction] 39.8 % Normal 34.0-46.4 [facility] Comment on above: Performed By: #### A ESTEPHANIE, CUU #### [place] [address] [place] Hemoglobin (Bld) [Mass/Vol] 13.5 g/dL Normal 11.8-15.4 [facility] Comment on above: Performed By: #### A ESTEPHANIE, CUU #### [address] Lymphocytes (Bld) [#/Vol] 1.3 10*3/uL Normal 1.00-4.8 [facility] Comment on above: Performed By: #### A ESTEPHANIE, CUU #### [address] Lymphocytes/100 WBC (Bld) 20.0 % Normal . [facility] Comment on above: Performed By: #### A ESTEPHANIE, CUU #### [address] MCH (RBC) [Entitic mass] 33.2 pg Normal 24.7-34.3 [facility] Comment on above: Performed By: #### A ESTEPHANIE, CUU #### [address] MCV (RBC) [Entitic vol] 97.4 fL Normal 80-100 [facility] Comment on above: Performed By: #### A ESTEPHANIE, CUU #### [address] Mean Corpuscular HGB Conc 34.1 g/dL Normal 32.0-35.0 [facility] Comment on above: Performed By: #### A ESTEPHANIE, CUU #### [address] Monocytes (Bld) [#/Vol] 0.6 10*3/uL Normal 0.0-0.8 [facility] Comment on above: Performed By: #### A ESTEPHANIE, CUU #### [address] Monocytes/100 WBC (Bld) 9.3 % Normal . [facility] Comment on above: Performed By: #### A JOELPLUS, CUU #### [facility] [address] [place] [address] [place] Neutrophils (Bld) [#/Vol] 4.4 10*3/uL Normal 1.8-7.7 [facility] Comment on above: Performed By: #### A DDONUAPLUS, CUU #### [place] [address] [place] Neutrophils/100 WBC (Bld) 66.1 % Normal . [facility] Comment on above: Performed By: #### A DDONUAPLUS, CUU #### [address] NRBC% 0.1 /100{WBC} Normal 0-0.5 [facility] Comment on above: Performed By: #### A DDONUAPLUS, CUU #### [address] Platelet mean volume (Bld) [Entitic vol] 8.4 fL Normal 6.3-10.7 [facility] Comment on above: Performed By: #### A DDONUAPLUS, CUU #### [place] [address] [place] Platelets (Bld) [#/Vol] 326 10*3/uL Normal 150-450 [facility] Comment on above: Performed By: #### A DDONUAPLUS, CUU #### [place] [address] [place] RBC (Bld) [#/Vol] 4.08 10*6/uL Normal 3.60-5.00 [facility] Comment on above: Performed By: #### A DDONUAPLUS, CUU #### [place] [address] [place] WBC (Bld) [#/Vol] 6.6 10*3/uL Normal 3.8-11.6 [facility] Comment on above: Performed By: #### A DDONUAPLUS, CUU #### [place] [address] [place] Creatinine [Mass/volume] in Serum or PlasmaOrdered By: Magno Pichardo on 08-20-2023 Creatinine [Mass/Vol] 0.88 mg/dL 0.60-1.20 [facility] Dipstick and Microscopicon 0 08-20-2023 Appearance (U) Clear Normal Clear [facility] Comment on above: Order Comment: Name Collection Type:: Clean-Voided Midstream Performed By: #### A DDONUAPLUS, CUU #### [address] Bacteria,Urine None Seen Normal None Seen [facility] Comment on above: Order Comment: Name Collection Type:: Clean-Voided Midstream Performed By: #### A DDONUAPLUS, CUU #### [address] Bilirubin,Urine Negative Normal Negative [facility] Comment on above: Order Comment: Name Collection Type:: Clean-Voided Midstream Performed By: #### A DDONUAPLUS, CUU #### [address] Color (U) Yellow Normal Yellow [facility] Comment on above: Order Comment: Name Collection Type:: Clean-Voided Midstream Performed By: #### A DDONUAPLUS, CUU #### [address] Glucose Ql (U) Normal Normal Normal [facility] Comment on above: Order Comment: Name Collection Type:: Clean-Voided Midstream Performed By: #### A DDONUAPLUS, CUU #### [address] Hyaline Casts,Urine None Seen Normal 0-8 [facility] Comment on above: Order Comment: Name Collection Type:: Clean-Voided Midstream Result Comment: PERF ORMED BY: [place] [address] PATHOLOGIST WINDSMITH BUBBA MERIDA M.D. Performed By: #### A DDONUAPLUS, CUU #### [address] Ketones Ql (U) Negative Normal Negative [facility] Comment on above: Order Comment: Name Collection Type:: Clean-Voided Midstream Performed By: #### A DDONUAPLUS, CUU #### [address] Leukocyte esterase Test strip Ql (U) 3+ High Negative [facility] Comment on above: Order Comment: Name Collection Type:: Clean-Voided Midstream Performed By: #### A DDONUAPLUS, CUU #### [place] [address] [place] Nitrite,Urine Negative Normal Negative [facility] Comment on above: Order Comment: Name Collection Type:: Clean-Voided Midstream Performed By: #### A DDONUAPLUS, CUU #### [place] [address] [place] Occult Blood,Urine Negative Normal Negative [facility] Comment on above: Order Comment: Name Collection Type:: Clean-Voided Midstream Result Comment: PERF ORMED BY: [place] [address] PATHOLOGIST WINDSMITH BUBBA MERIDA M.D. Performed By: #### A DDONUAPLUS, CUU #### [address] pH (U) 6.0 [pH] Normal 5.0-9.0 [facility] Comment on above: Order Comment: Name Collection Type:: Clean-Voided Midstream Performed By: #### A DDONUAPLUS, CUU #### [place] [address] [place] Protein,Urine Negative Normal Negative [facility] Comment on above: Order Comment: Name Collection Type:: Clean-Voided Midstream Performed By: #### A DDONUAPLUS, CUU #### [place] [address] [place] RBC LM.HPF (Urine sed) [#/Area] 0 /[HPF] Normal 0-4 [facility] Comment on above: Order Comment: Name Collection Type:: Clean-Voided Midstream Performed By: #### A DDONUAPLUS, CUU #### [place] [address] [place] Specificy [place],Urine 1.008 Normal 1.001-1.03 0 [facility] Comment on above: Order Comment: Name Collection Type:: Clean-Voided Midstream Performed By: #### A DDONUAPLUS, CUU #### [address] Squamous Epithelial Cell,Urine 0-1 Normal 0-2 [facility] Comment on above: Order Comment: Name Collection Type:: Clean-Voided Midstream Performed By: #### A DDONUAPLUS, CUU #### [address] Urobilinogen,Urine Normal Normal Normal [facility] Comment on above: Order Comment: Name Collection Type:: Clean-Voided Midstream Performed By: #### A DDONUAPLUS, CUU #### [place] [address] [place] WBC,Urine 10-19 High 0-4 [facility] Comment on above: Order Comment: Name Collection Type:: Clean-Voided Midstream Performed By: #### A DDONUAPLUS, CUU #### [address] ECG 12 lead ECGon 08-20-2023 ECG 12 lead ECG [place] [address] Electrocardiograph Report Signed Patient: Ashley Brown MR#: [id number] 1 : 1940 Acct:[id number] Age/Sex: 82 / F ADM Date: 08/20/23 Loc: PS Room: Type: [facility] Attending Dr: Magno Pichardo II, MD Ordering [...] previous ECGs available Confirmed by EARL MENENDEZ [facility], DARIUS ([id number]) on 08/20/2023 5:49:37 PM Referred By: MARINO Electronically Signed By:DARIUS CATALAN MD [facility] Transcribed By: FELA Signed By Daron Catalan MD 08/20/23 1749 Normal [facility] Eosinophils Auto (Bld) [#/Vo l]Ordered By: Magno Pichardo on 08-20-2023 Eosinophils (Bld) [#/Vol] 0.2 10*3/uL 0.0-0.45 [facility] Eosinophils/100 WBC Auto (Bl d)Ordered By: Magno Pichardo on 08-20-2023 Eosinophils/100 WBC (Bld) 3.5 % . [facility] Erythrocyte distribution wid th Auto (RBC) [Ratio]Ordered By: Magno Pichardo on 08-20-2023 Erythrocyte distribution width (RBC) [Ratio] 14.3 % 11.9-15.3 [facility] Fructosamineon 08-20-2023 Fructosamine 210 umol/L Normal 0-285 [facility] Comment on above: Result Comment: Publ ished reference interval for apparently healthy subjects between age 20 and 60 is 205 - 285 umol/L and in a poorly controlled diabetic population is 228 - 563 umol/L with a mean of 396 umol/L. Performed at: - [facility] [id number] [employer] Programmer: Federico Guzman PhD, Phone: [phone] PERFORMED BY: [place] [address] PATHOLOGIST WINDSMITH BUBBA MERIDA M.D. Performed By: #### A JOON HUMMEL #### [address] Fructosamine [Moles/volume] in Serum or PlasmaOrdered By: Magno Pichardo on 08-20-2023 Fructosamine [Moles/Vol] 210 umol/L 0-285 [facility] Comment on above: Published reference interval for apparently healthysubjects between age 20 and 60 is 205 - 285 umol/L and in apoorly controlled diabetic population is 228 - 563 umol/Lwith a mean of 396 umol/L.Performed at: [employer] [id number] Director: Federico Guzman PhD, Phone: [phone] Glucose [Mass/volume] in Ser um or PlasmaOrdered By: Magno Pichardo on 08-20-2023 Glucose [Mass/Vol] 81 mg/dL 70-100 [facility] Comment on above: ADA recommended refe rence rangeRandom Glucose Reference Range is dependent on time and content of last meal. Glucose of more than 200 mg/dL in a nonstressed, ambulatory subject supports the diagnosis of Diabetes Mellitus. Hematocrit Auto (Bld) [Volum e fraction]Ordered By: Magno Pichardo on 08-20-2023 Hematocrit (Bld) [Volume fraction] 39.8 % 34.0-46.4 [facility] Hemoglobin [Mass/volume] in BloodOrdered By: Magno Pichardo on 08-20-2023 Hemoglobin (Bld) [Mass/Vol] 13.5 g/dL 11.8-15.4 [facility] Ketones Auto test strip (U) [Mass/Vol]Ordered By: Magno Pichardo on 08-20-2023 Ketones (U) [Mass/Vol] Negative Negative [facility] Laboratory - UrinalysisOrder ed By: Magno Pichardo on 08-20-2023 Hyaline casts LM Ql (Urine sed) None seen [LPF] 0-8 [facility] Leukocytes [#/volume] correc alvaro for nucleated erythrocytes in Blood by Automated counOrdered By: Magno Pichardo on 08-20-2023 WBC corrected for nucl RBC Auto (Bld) [#/Vol] 6.6 10*3/uL 3.8-11.6 [facility] Lymphocytes Auto (Bld) [#/Vo l]Ordered By: Magno Pichardo on 08-20-2023 Lymphocytes (Bld) [#/Vol] 1.3 10*3/uL 1.00-4.8 [facility] Lymphocytes/100 WBC Auto (Bl d)Ordered By: Magno Pichardo on 08-20-2023 Lymphocytes/100 WBC (Bld) 20.0 % . [facility] MCH Auto (RBC) [Entitic mass ]Ordered By: Magno Pichardo on 08-20-2023 MCH (RBC) [Entitic mass] 33.2 pg 24.7-34.3 [facility] MCHC Auto (RBC) [Mass/Vol]Or dered By: Magno Pichardo on 08-20-2023 MCHC (RBC) [Mass/Vol] 34.1 g/dL 32.0-35.0 [facility] MCV Auto (RBC) [Entitic vol] Ordered By: Magno Pichardo on 08-20-2023 MCV (RBC) [Entitic vol] 97.4 fL 80-100 [facility] Monocytes Auto (Bld) [#/Vol] Ordered By: Magno Pichardo on 08-20-2023 Monocytes (Bld) [#/Vol] 0.6 10*3/uL 0.0-0.8 [facility] Monocytes/100 WBC Auto (Bld) Ordered By: Magno Pichardo on 08-20-2023 Monocytes/100 WBC (Bld) 9.3 % . [facility] Neutrophils Auto (Bld) [#/Vo l]Ordered By: Magno Pichardo on 08-20-2023 Neutrophils (Bld) [#/Vol] 4.4 10*3/uL 1.8-7.7 [facility] Neutrophils/100 WBC Auto (Bl d)Ordered By: Magno Pichardo on 08-20-2023 Neutrophils/100 WBC (Bld) 66.1 % . [facility] Nitrite Test strip Ql (U)Ord ered By: Magno Pichardo on 08-20-2023 Nitrite Ql (U) Negative Negative [facility] No Panel InformationOrdered By: Magno Pichardo on 08-20-2023 Estimated GFR (CKD-EPI) > 60.0 mL/Min [facility] Creatinine Clearance (Chem N/A [facility] Nucleated erythrocytes [Pres ence] in Blood by Automated countOrdered By: Magno Pichardo on 08-20-2023 Nucleated RBC Auto Ql (Bld) 0.1 /100{WBC} 0-0.5 [facility] PST Type and Screenon 2023 ABO and Rh group Nom (Bld) Blood group O Rh(D) positive Normal [facility] Comment on above: Order Comment: Date of Surgery: [id number] Result Comment: PERF ORMED BY: [facility] [address] [place] [address] PATHOLOGIST WINDSMITH BUBBA MERIDA M.D. Platelet mean volume Auto (B ld) [Entitic vol]Ordered By: Magno Pichardo on 08-20-2023 Platelet mean volume (Bld) [Entitic vol] 8.4 fL 6.3-10.7 [facility] Platelets Auto (Bld) [#/Vol] Ordered By: Magno Pichardo on 08-20-2023 Platelets (Bld) [#/Vol] 326 10*3/uL 150-450 [facility] Potassium [Moles/volume] in Serum or PlasmaOrdered By: Magno Pichardo on 08-20-2023 Potassium [Moles/Vol] 3.9 mmol/L 3.5-5.1 [facility] Protein Auto test strip (U) [Mass/Vol]Ordered By: Magno Pichardo on 08-20-2023 Protein (U) [Mass/Vol] Negative Negative [facility] RBC Auto (Bld) [#/Vol]Ordere d By: Magno Pichardo on 08-20-2023 RBC (Bld) [#/Vol] 4.08 10*6/uL 3.60-5.00 [facility] Serum or plasma anion gap de terminationOrdered By: Magno Pichardo on 08-20-2023 Anion gap [Moles/Vol] 10.6 mmol/L 6.0-15.0 [facility] [place] Sodium [Moles/volume] in Ser um or PlasmaOrdered By: Magno Pichardo on 08-20-2023 Sodium [Moles/Vol] 137 mmol/L 136-145 [facility] Specific gravity Auto test s trip (U) [Rel density]Ordered By: Magno Pichardo on 08-20-2023 Specific gravity (U) [Rel density] 1.008 1.001-1.03 0 [facility] Squamous epithelial cells de tection in urine sediment by light microscopyOrdered By: Magno Pichardo on 08-20-2023 Epithelial cells.squamous LM Ql (Urine sed) 0-1 [HPF] 0-2 [facility] Urea nitrogen [Mass/volume] in Serum or PlasmaOrdered By: Magno Pichardo on 08-20-2023 Urea nitrogen [Mass/Vol] 19 mg/dL 7-25 [facility] Urine Cultureon 08-20-2023 Bacteria identified Cx Nom (U) <10,000 colonies/ml mixed bacterial skin contaminants including mixed gram negative bacilli - 2 Days PERFORMED BY: [place] [address] PATHOLOGIST WINDSMITH BUBBA MERIDA M.D. Normal [facility] Comment on above: Performed By: #### A DDONUAPLUS, CUU #### [address] Urine bacteria detection by automated methodOrdered By: Magno Pichardo on 08-20-2023 Bacteria Auto Ql (U) None seen None Seen [facility] Urine clarity by refractomet ry automatedOrdered By: Magno Pichardo on 08-20-2023 Clarity Refractometry automated (U) Clear Clear [facility] Urine culture routineOrdered By: Magno Pichardo on 08-20-2023 Bacteria identified Cx Nom (U) bacilli - 2 Days [facility] Urine glucose measurement by automated test strip (mass/volume)Ordered By: Magno Pichardo on 08-20-2023 Glucose Auto test strip (U) [Mass/Vol] Normal mg/dL Normal [facility] Urine hemoglobin detection b y automated test stripOrdered By: Magno Pichardo on 08-20-2023 Hemoglobin Auto test strip Ql (U) Negative Negative [facility] Urine leukocyte esterase det ection by automated test stripOrdered By: Magno Pichardo on 08-20-2023 Leukocyte esterase Auto test strip Ql (U) 3+ Negative [facility] Urobilinogen Auto test strip (U) [Mass/Vol]Ordered By: Magno Pichardo on 08-20-2023 Urobilinogen (U) [Mass/Vol] Normal mg/dL Normal [facility] WBC Auto (Bld) [#/Vol]Ordere d By: Magno Pichardo on 08-20-2023 WBC (Bld) [#/Vol] 6.6 10*3/uL 3.8-11.6 [facility] XR femur RT 2V*on 08-20-2023 XR femur RT 2V* [facility] [place] [address] [place] [address] XRay Report Signed Patient: Ashley Brown MR#: [id number] 1 : 1940 Acct:[id number] Age/Sex: 82 / F ADM Date: 08/20/23 Loc: [facility] Room: Type: [facility] Attending Dr: Magno Pichardo II, MD Copies to: Magno Pichardo MD Ordering Provider: Magno Pichardo MD Date of Service: 08/20/23 XR/XR tibia fibula RT 2V*: M17.11 - Unilateral primary osteoarthritis, right knee ([id number]) XR/XR femur RT 2V*: M17.11 - Unilateral [...] Richard Oliver M.D.08/20/2023 4:40 PM Dictation Location: [address] By: [facility] 08/20/23 1640 Dictated By: Richard Oliver DO 08/20/23 1637 Signed By: 08/20/23 1640 Normal [facility] pH Auto test strip (U)Ordere d By: Magno Pichardo on 08-20-2023 pH (U) 6.0 [pH] 5.0-9.0 [facility] B-Type Natriuretic Peptideon 08-01-2023 B-Type Natriuretic Peptide 949.0 pg/mL <=1800.0 pg/mL [facility] [employer] Other Basic Metabolic Panelon Anion gap [Moles/Vol] 12.0 mmol/L [facility] [employer] Other Calcium [Mass/Vol] 9.5053623 mg/dL Normal 8.5-10 .1 mg/dL [employer] Other Chloride [Moles/Vol] 101 mmol/L Normal 98-107 mmol/L [employer] Other CO2 [Moles/Vol] 26.12535452 mmol/L Normal 21.0-3 2.0 mmol/L [employer] Other Creatinine [Mass/Vol] 0.30473681 mg/dL Normal 0. 55-1.02 mg/dL [employer] Other Glucose [Mass/Vol] 86 mg/dL Normal 74-106 mg/dL [employer] Other Potassium [Moles/Vol] 3.52822549 mmol/L Normal 3 .5-5.1 mmol/L [employer] Other Sodium [Moles/Vol] 136 mmol/L Normal 136-145 mmol/L [employer] Other Urea nitrogen [Mass/Vol] 16.7945665 mg/dL Normal 7.0-18.0 mg/dL [employer] Other Urea nitrogen/Creatinine [Mass ratio] 17.2 mg/mg [place] [employer] Other Basic Metabolic Panel see note Nor [employer] Other Basic Metabolic Panel 58 Low >=60 [facility] [employer] Other Basic Metabolic Panel >60 >=60 [facility] [employer] Other A1C with Estimated Average G luon 07-23-2023 Glucose [Mass/Vol] 111 mg/dL Normal [facility] Comment on above: Order Comment: Reaso n for Exam Primary osteoarthritis of right knee;Other fci (curren Result Comment: PERF ORMED BY: [place] [address] PATHOLOGIST WINDSMITH BUBBA MERIDA M.D. Performed By: #### C UMRSA, HGB, ALB, A1C WTH eA, [id number] #### [address] #### NICOTINE #### [facility] , HbA1c (Bld) [Mass fraction] 5.5 % Normal 4.3-5.6 [facility] Comment on above: Order Comment: Reaso n for Exam Primary osteoarthritis of right knee;Other fci (curren Result Comment: Incr eased risk for diabetes: 5.7 - 6.4 diabetes: >6.4 glycemic control for adults with diabetes: <7.0 Performed By: #### C UMRSA, HGB, ALB, A1C WTH eA, [id number] #### [facility] [address] [place] [address] [place] #### NICOTINE #### [facility] , Albumin Levelon 07-23-2023 Albumin [Mass/Vol] 4.1 g/dL Normal 3.5-5.7 [facility] Comment on above: Order Comment: Reaso n for Exam Primary osteoarthritis of right knee;Other fci (curren Performed By: #### C UMRSA, HGB, ALB, A1C WTH eA, [id number] #### [place] [address] [place] #### NICOTINE #### [facility] , Albumin [Mass/volume] in Ser um or Plasma by Bromocresol green (BCG) dye binding methoOrdered By: Magno Pichardo on 07-23-2023 Albumin BCG dye [Mass/Vol] 4.1 g/dL 3.5-5.7 [facility] Cotinine [Mass/volume] in Se rum or PlasmaOrdered By: Magno Pichardo on 07-23-2023 Cotinine [Mass/Vol] <1.0 ng/mL . [facility] Comment on above: This test was develo ped and its performance characteristicsdetermined by [facility]. It has not been cleared orapproved by the Food and Drug Administration.Cotinine levels greater than 20.0 are consistent with theuse of tobacco or tobacco cessation products.Performed at: [address] [id number] Director: Amilcar Baltazar MD, Phone: [phone] Glucose mean value [Mass/vol ume] in Blood Estimated from glycated hemoglobinOrdered By: Magno Pichardo on 07-23-2023 Average glucose Estimated from glycated hemoglobin (Bld) [Mass/Vol] 111 mg/dL [facility] Hemoglobinon 07-23-2023 Hemoglobin (Bld) [Mass/Vol] 13.4 g/dL Normal 11.8-15.4 [facility] Comment on above: Order Comment: Reaso n for Exam Primary osteoarthritis of right knee;Other fci (curren Result Comment: PERF ORMED BY: [place] [address] PATHOLOGIST WINDSMITH BUBBA MERIDA M.D. 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 Normal [facility] Comment on above: Performed By: #### A JOON HUMMEL #### [address] Nicotine [Mass/volume] in Se rum or PlasmaOrdered By: Magno Pichardo on 07-23-2023 Nicotine [Mass/Vol] <1.0 ng/mL . [facility] Comment on above: This test was develo ped and its performance characteristicsdetermined by [facility]. It has not been cleared orapproved by the Food and Drug Administration.Nicotine levels greater than 2.0 are consistent with theuse of tobacco or tobacco cessation products. Nicotine/Cotinine Bloodon Cotinine, Blood <1.0 Normal . 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 It has not been cleared or approved by the Food and Drug Administration. Cotinine levels greater than 20.0 are consistent with the use of tobacco or tobacco cessation products. Performed at: [address] [id number] [employer] Programmer: Amilcar Baltazar MD, Phone: [phone] PERFORMED BY: [address] [address] PATHOLOGIST WINDSMITH BUBBA MERIDA M.D. Performed By: #### A DDONUAPLUS, CUU #### [address] Nicotine, Blood <1.0 Normal . [facility] Comment on above: Order Comment: Reaso n for Exam Primary osteoarthritis of right knee;Other fci (curren Result Comment: This test was developed and its performance characteristics determined by [facility]. It has not been cleared or approved by the Food and Drug Administration. Nicotine levels greater than 2.0 are consistent with the use of tobacco or tobacco cessation products. Performed By: #### A DDONUAPLUS, CUU #### [address] Vitamin D 25 Hydroxy Totalon 07-23-2023 Vitamin D 25 Hydroxy Total 45.5 ng/mL Normal 30-100 [facility] Comment on above: Order Comment: Reaso n for Exam Primary osteoarthritis of right knee;Other termite helper (curren Result Comment: HEATH MIN D STATUS 25(OH)VITAMIN D RANGE (ng/mL) Deficient <20 Insufficient 20 to <30 Sufficient 30 to 100 Reference: Joanne Johnston, Jayjay ESPOSITO, et al. Evaluation,treatment, and prevention of vitamin D deficiency; an Endocrine Society clinical practice guideline. JCEM. 2010; 96(7):1911-30. PERFORMED BY: [place] [address] PATHOLOGIST WINDSMITH BUBBA MERIDA M.D. Performed By: #### C UMRSA, HGB, ALB, A1C WTH eA, [id number] #### [address] #### NICOTINE #### [facility] , Vitamin D+Metabolites [Mass/ volume] in Serum or PlasmaOrdered By: Magno Pichardo on 07-23-2023 Vitamin D+Metabolites [Mass/Vol] 45.5 ng/mL 30-100 [facility] Comment on above: VITAMIN D STATUS [...] (Unsp spec) No MRSA Isolated 2 Days [facility] MRSA isol Org specific cx Ql (Unsp spec) No MRSA Isolated 2 Days [facility] XR pelvis 1-2Von 05-21-2023 XR pelvis 1-2V [facility] [place] [address] [place] [address] XRay Report Signed Patient: Ashley Brown MR#: [id number] 1 : 1940 Acct:[id number] Age/Sex: 82 / F ADM Date: 05/21/23 Loc: [facility] Room: Type: [facility] Attending Dr: Magno Pichardo II, MD Copies to: Magno Pichardo MD Ordering Provider: Magno Pichardo MD Date of Service: 05/21/23 XR/XR knee LT 3V - NOT FOR ER USE: Acute pain of left knee ([id number]) XR/XR pelvis 1-2V: Acute pain of left knee ([id number]) XR/XR knee RT 4V*: Acute pain of [...] view. Mild lateral subluxation. No joint effusion. [id number]-[id number] contact the medial compartment degenerative change. Mild [...] Richard Oliver M.D.05/21/2023 2:01 PM Dictation Location: [place] [address] Transcribed By: [facility] 05/21/23 1401 Dictated By: Richard Oliver DO 05/21/23 1356 Signed By: 05/21/23 1401 Normal [facility] Office Visiton 05-14-2023 Follow-up visit [id number] Ashley Brown 1940 F Date Provider Department Center 05/14/2023 JEREMIAS JONES [facility] Family History Problem Relation Age of Onset Coronary artery disease Father Other Father Family Status - Relation Status Age at Father Level of Service:67123 MI OFFICE/OUTPATIENT ESTABLISHED LOW MDM 20-29 MIN Reason for Visit and Comments: Follow-up [623283] - 6 months Normal [facility] CBC AUTO DIFFon 10-31-2022 BASO # 0.1 103/ul Normal 0.0-0.1 [facility] Comment on above: Performed By: #### C BC #### [facility] [address] [address] [address] Charan Ariza Basophils/100 WBC (Bld) 1.7 % Normal 0.2-2.0 [facility] Comment on above: Performed By: #### C BC #### [facility] [address] [address] [address] Charan Ariza EO # 0.3 103/ul Normal 0.0-0.7 [facility] Comment on above: Performed By: #### C BC #### [facility] [address] [address] [address] Charan Ariza Eosinophils/100 WBC (Bld) 6.0 % Normal 0.9-7.0 [facility] Comment on above: Performed By: #### C BC #### [facility] [address] [address] [address] Charan Ariza Erythrocyte distribution width (RBC) [Ratio] 12.5 % Normal 11.0-15.0 [facility] Comment on above: Performed By: #### C BC #### [facility] [address] [place] [address] Dr. Charan Ariza Hematocrit (Bld) [Volume fraction] 42.6 % Normal 36.0-48.0 [facility] Comment on above: Performed By: #### C BC #### [facility] [address] [place] [address] Dr. Charan Ariza Hemoglobin (Bld) [Mass/Vol] 13.7 g/dL Normal 12.0-16.0 [facility] Comment on above: Performed By: #### C BC #### [facility] [address] [place] [address] Dr. Charan Ariza IG # 0.01 10e3/ul Normal 0.00-0.03 [facility] Comment on above: Performed By: #### C BC #### [facility] [address] [place] [address] Dr. Charan Ariza IG % 0.2 % Normal 0.0-0.5 [facility] Comment on above: Performed By: #### C BC #### [facility] [address] [place] [address] Dr. Charan Ariza LYMPH # 1.5 103/ul Normal 1.2-3.8 [facility] Comment on above: Performed By: #### C BC #### [facility] [address] [place] [address] Dr. Charan Ariza Lymphocytes/100 WBC (Bld) 28.9 % Normal 20.5-60.0 [facility] Comment on above: Performed By: #### C BC #### [facility] [address] [place] [address] Dr. Charan Ariza MANUAL DIFF REQ NO Normal [facility] Comment on above: Performed By: #### C BC #### [facility] [address] [place] [address] Dr. Charan Ariza MCH (RBC) [Entitic mass] 31.9 pg Normal 26.7-34.0 [facility] Comment on above: Performed By: #### C BC #### [facility] [address] [address] [address] Charan Ariza MCHC (RBC) [Mass/Vol] 32.2 g/dL Normal 29.9-35.2 [facility] Comment on above: Performed By: #### C BC #### [facility] [address] [address] [address] Charan Ariza MCV (RBC) [Entitic vol] 99.3 fL Critically high 81.0-99.0 [facility] Comment on above: Performed By: #### C BC #### [facility] [address] [address] [address] Charan Ariza MONO # 0.4 103/ul Normal 0.3-0.8 [facility] Comment on above: Performed By: #### C BC #### [facility] [address] [place] [address] Dr. Charan Ariza Monocytes/100 WBC (Bld) 7.8 % Normal 1.7-12.0 [facility] Comment on above: Performed By: #### C BC #### [facility] [address] [place] [address] Dr. Charan Ariza NEUT # 2.9 103/ul Normal 1.4-6.5 [facility] Comment on above: Performed By: #### C BC #### [facility] [address] [place] [address] Dr. Charan Ariza Neutrophils/100 WBC (Bld) 55.4 % Normal 43.0-75.0 [facility] Comment on above: Performed By: #### C BC #### [facility] [address] [address] [address] Charan Ariza Platelet mean volume (Bld) [Entitic vol] 10.4 fL Normal 9.5-13.5 [facility] Comment on above: Performed By: #### C BC #### [facility] [address] [place] [address] Dr. Charan Ariza PLT 326 103/ul Normal 150-450 [facility] Comment on above: Performed By: #### C BC #### [facility] [address] [address] [address] Charan Ariza RBC 4.29 106/ul Normal 4.20-5.40 [facility] Comment on above: Performed By: #### C BC #### [facility] [address] [address] [address] Charan Ariza WBC 5.3 103/ul Normal 4.0-11.0 [facility] Comment on above: Performed By: #### C BC #### [facility] [address] [address] [address] Charan Ariza LIPID PROFILEon 10-31-2022 CHOL-HDL RATIO NORM SEE BELOW Normal [facility] Comment on above: Result Comment: 3.3 - 4.4 LOW RISK 4.4 - 7.1 AVERAGE RISK 7.1 - 11.0 MODERATE RISK >11.0 HIGH RISK Performed By: #### A LT, BMP, LIPID #### [facility] [address] [place] [address] Dr. Charan Ariza Cholesterol [Mass/Vol] 180 mg/dL Normal <=200 [facility] Comment on above: Performed By: #### A LT, BMP, LIPID #### [facility] [address] [place] [address] Dr. Charan Ariza Cholesterol in HDL [Mass/Vol] 75 mg/dL Critically high 40-60 [facility] Comment on above: Performed By: #### A LT, BMP, LIPID #### [facility] [address] [address] [address] Charan Ariza Cholesterol in LDL [Mass/Vol] 77.4 mg/dL Normal [facility] Comment on above: Performed By: #### A LT, BMP, LIPID #### [facility] [address] [place] [address] Dr. Charan Ariza Cholesterol.total/Cho lesterol in HDL [Mass ratio] 2.4 {ratio} Normal [facility] Comment on above: Performed By: #### A LT, BMP, LIPID #### [facility] [address] [place] [address] Dr. Charan Ariza HDL NORMAL > or = 60 mg/dl - LO W CARDIOVASCULAR RISK <40 mg/dl - HIGH CARDIOVASCULAR RISK Normal [facility] Comment on above: Performed By: #### A LT, BMP, LIPID #### [facility] [address] [place], [place] [address] Dr. Charan Ariza LDL CALC NORMAL SEE BELOW Normal [facility] Comment on above: Result Comment: <100 mg/dl OPTIMAL 100 - 129 mg/dl NEAR OR ABOVE OPTIMAL 130 - 159 mg/dl BORDERLINE HIGH 160 - 189 mg/dl HIGH >190 mg/dl VERY HIGH Performed By: #### A LT, BMP, LIPID #### [facility] [address] [place], [place] [address] Dr. hCaran Ariza Triglyceride [Mass/Vol] 138 mg/dL Normal <=150 [facility] Comment on above: Performed By: #### A LT, BMP, LIPID #### [facility] [address] [place], [place] [address] Dr. Charan Ariza VLDL CALC 27.6 mg/dL Normal [facility] Comment on above: Performed By: #### A LT, BMP, LIPID #### [facility] [address] [place], [place] [address] Dr. Charan Ariza NM STRESS/REST MULTIon 10-31 NM STRESS/REST MULTI Patient: KEVIN BROWN Exam Date: 10/31/2022 : 1940 Gender:F Ordering : DR ODELL HARRINGTON D.O. Admission #: [id number] Family : Order #: [id number] CLICK HERE TO VIEW EXAM RADIOLOGY REPORT [...] MD on 10/31/2022 at 14:41 Normal [facility] PROF CHEM 8 (BAS METB)on Anion gap [Moles/Vol] 13.8 mmol/L Normal [facility] Comment on above: Performed By: #### A LT BMP, LIPID #### [facility] [address] [place] [address] Dr. Charan Ariza Calcium [Mass/Vol] 9.2 mg/dL Normal 8.5-10.1 [facility] Comment on above: Performed By: #### A LT BMP, LIPID #### [facility] [address] [place] [address] Dr. Charan Ariza Chloride [Moles/Vol] 105 mmol/L Normal 98-107 [facility] Comment on above: Performed By: #### A LT, BMP, LIPID #### [facility] [address] [place] [address] Dr. Charan Ariza CO2 [Moles/Vol] 25.4 mmol/L Normal 21.0-32.0 [facility] Comment on above: Performed By: #### A LT, BMP, LIPID #### [facility] [address] [place] [address] Dr. Charan Ariza Creatinine [Mass/Vol] 0.95 mg/dL Normal 0.55-1.02 [facility] Comment on above: Performed By: #### A LT, BMP, LIPID #### [facility] [address] [address] [address] Charan Ariza EGFR-AF PUERTO RICAN >60 Normal >=60 [facility] Comment on above: Performed By: #### A LT, BMP, LIPID #### [facility] [address] [address] [address] Charan Ariza EGFR-NON AF PUERTO RICAN 57 mL/min/1.73m2 Critically low >=60 [facility] Comment on above: Performed By: #### A LT, BMP, LIPID #### [facility] [address] [place] [address] Dr. Charan Ariza Glucose [Mass/Vol] 93 mg/dL Normal 74-106 [facility] Comment on above: Performed By: #### A LT, BMP, LIPID #### [facility] [address] [place] [address] Dr. Charan Ariza Potassium [Moles/Vol] 4.2 mmol/L Normal 3.5-5.1 [facility] Comment on above: Performed By: #### A LT, BMP, LIPID #### [facility] [address] [place] [address] Dr. Charan Ariza Sodium [Moles/Vol] 140 mmol/L Normal 136-145 [facility] Comment on above: Performed By: #### A LT, BMP, LIPID #### [facility] [address] [place] [address] Dr. Charan Ariza Urea nitrogen [Mass/Vol] 19.0 mg/dL Critically high 7.0-18.0 [facility] Comment on above: Performed By: #### A LT, BMP, LIPID #### [facility] [address] [place] [address] Dr. Charan Ariza Urea nitrogen/Creatinine [Mass ratio] 20.0 mg/mg Normal [facility] Comment on above: Performed By: #### A LT, BMP, LIPID #### [facility] [address] [place] [address] Dr. Charan Ariza SGPTon 10-31-2022 ALT [Catalytic activity/Vol] 29 U/L Normal 14-59 [facility] Comment on above: Performed By: #### A LT, BMP, LIPID #### [facility] [address] [address] [address] Charan Ariza ECHOCARDIO M/2D COMPLETEon 1 07-08-2021 ECHOCARDIO M/2D COMPLETE Patient: ASHLEY BROWN Exam Date: 05/08/2022 : 1940 Gender:F Ordering : DR JEREMIAS MCGUIRE M.D. Admission #: [id number] Family : DR ODELL HARRINGTON DThomas Order #: [id number] CLICK HERE TO VIEW EXAM ECHOCARDIOGRAM REPORT [...] Mcguire M.D. on 05/08/2022 at 18:26 Normal [facility] XR LSPINE 2_3 VIEWSon 2021 XR LSPINE [...] by: TARIK MONROE Date: 2022-01-25 17:51 Normal [facility] CHEST AND LATERALon 03-20-20 CHEST AND LATERAL [facility] Department of Radiology [address] [place] [id number] Patient Name: ASHLEY BROWN : 1940 [...] above Electronically signed: Lashonda Traore. Transcribed by: [email or web address], User Resident: Electronically Signed by: LASHONDA TRAORE @ 03/21/2021 09:38 AM Normal [facility] Comment on above: Order Comment: evalu ate Vital Signs Date Time Vital Sign Value Performing Clinician Facility 09-19-2023 11:38-0400 Body height 142.24 cm DO Odell Ball Work Phone: [facility] 09-19-2023 11:38-0400 Body mass index (BMI) [Ratio] 34 kg/m2 DO Odell Ball Work Phone: [facility] 09-19-2023 11:38-0400 Body weight 68.71 kg DO Odell Ball Work Phone: [facility] 09-19-2023 11:38-0400 Diastolic blood pressure 76 mm[Hg] DO Odell Ball Work Phone: [facility] 09-19-2023 11:38-0400 Systolic blood pressure 198 mm[Hg] DO Odell Ball Work Phone: [facility] 09-15-2023 08:40-0400 Body temperature 97.8 [degF] DO Odell Ball Work Phone: [facility] 09-15-2023 08:40-0400 Diastolic blood pressure 78 mm[Hg] DO Odell Ball Work Phone: [facility] 09-15-2023 08:40-0400 Heart rate 70 /min DO Odell Ball Work Phone: [facility] 09-15-2023 08:40-0400 Respiratory rate 18 /min DO Odell Ball Work Phone: [facility] 09-15-2023 08:40-0400 SaO2% (BldA) [Mass fraction] 100 % DO Odell Ball Work Phone: [facility] 09-15-2023 08:40-0400 Systolic blood pressure 122 mm[Hg] DO Odell Ball Work Phone: [facility] 09-14-2023 06:00-0400 Body weight 70.8 kg DO Odell Ball Work Phone: [facility] 09-02-2023 15:11-0500 Body height 147.32 cm DO Odell Ball Work Phone: [facility] 09-02-2023 11:34-0500 Body temperature 97.4 [degF] DO Odell Ball Work Phone: [facility] 09-02-2023 11:34-0500 Diastolic blood pressure 65 mm[Hg] DO Odell Ball Work Phone: [facility] 09-02-2023 11:34-0500 Heart rate 62 /min DO Odell Ball Work Phone: [facility] 09-02-2023 11:34-0500 Respiratory rate 18 /min DO Odell Ball Work Phone: [facility] 09-02-2023 11:34-0500 SaO2% (BldA) [Mass fraction] 97 % DO Odell Ball Work Phone: [facility] 09-02-2023 11:34-0500 Systolic blood pressure 139 mm[Hg] DO Odell Ball Work Phone: [facility] 09-01-2023 13:46-0500 Inhaled oxygen flow rate 8 L/min DO Odell Ball Work Phone: [facility] 09-01-2023 11:37-0500 Body height 147.32 cm DO Odell Ball Work Phone: [facility] 09-01-2023 11:37-0500 Body mass index (BMI) [Ratio] 30.9 kg/m2 DO Odell Ball Work Phone: [facility] 09-01-2023 11:37-0500 Body weight 67 kg DO Odell Ball Work Phone: [facility] 08-20-2023 13:05-0500 Body height 147.32 cm DO Odell Ball Work Phone: [facility] 08-20-2023 13:05-0500 Body mass index (BMI) [Ratio] 30.7 kg/m2 DO Odell Ball Work Phone: [facility] 08-20-2023 13:05-0500 Body weight 66.67 kg DO Odell Ball Work Phone: [facility] 08-01-2023 11:00-0500 Body height 147.32 cm Odell Ball Other [facility] 08-01-2023 11:00-0500 Body mass index (BMI) [Ratio] 30.85 kg/m2 Odell Ball Other [facility] [employer] Other 08-01-2023 11:00-0500 Body weight 66.95 kg Odell Ball Other [facility] 08-01-2023 11:00-0500 Diastolic blood pressure 86 mm[Hg] Odell Ball Other [facility] 08-01-2023 11:00-0500 Respiratory rate 12 /min Odell Ball Other [employer] Other 08-01-2023 11:00-0500 Systolic blood pressure 135 mm[Hg] Odell Ball Other [facility] 07-09-2023 12:45-0500 Body height 147.32 cm Magno Inwood II Other [facility] 07-09-2023 12:45-0500 Body mass index (BMI) [Ratio] 31.1 kg/m2 Magno Marino II Other [employer] Other 07-09-2023 12:45-0500 Body weight 67.5 kg Magno Marino II Other [employer] Other 07-09-2023 12:45-0500 Body weight 67.49 kg DO Odell Ball Work Phone: [facility] 06-06-2023 11:30-0500 Body height 147.32 cm Odell Ball Other [facility] 06-06-2023 11:30-0500 Body mass index (BMI) [Ratio] 29.88 kg/m2 Odell Ball Other [employer] Other 06-06-2023 11:30-0500 Body temperature 97.3 [degF] Odell Ball Other [facility] [employer] Other 06-06-2023 11:30-0500 Body weight 64.86 kg Odell Ball Other [facility] 06-06-2023 11:30-0500 Diastolic blood pressure 81 mm[Hg] Odell Ball Other [facility] 06-06-2023 11:30-0500 Respiratory rate 16 /min Odell Ball Other [facility] [employer] Other 06-06-2023 11:30-0500 Systolic blood pressure 138 mm[Hg] Odell Ball Other [facility] 05-21-2023 10:30-0500 Body height 147.32 cm Magno Inwood II Other [employer] Other 05-21-2023 10:30-0500 Body mass index (BMI) [Ratio] 31.14 kg/m2 Magno Marino II Other [employer] Other 05-21-2023 10:30-0500 Body weight 67.59 kg Magno Inwood II Other [employer] Other 05-20-2023 13:30-0500 Body height 147.32 cm Odell Ball Other [employer] Other 05-20-2023 13:30-0500 Body mass index (BMI) [Ratio] 31.64 kg/m2 Odell Ball Other [employer] Other 05-20-2023 13:30-0500 Body weight 68.68 kg Odell Ball Other [employer] Other 05-20-2023 13:30-0500 Diastolic blood pressure 77 mm[Hg] Odell Ball Other [employer] Other 05-20-2023 13:30-0500 Respiratory rate 12 /min Odell Ball Other [employer] Other 05-20-2023 13:30-0500 Systolic blood pressure 158 mm[Hg] Odell Ball Other [employer] Other 10-22-2022 15:00-0400 Body height 147.32 cm Odell Ball Other [employer] Other 10-22-2022 15:00-0400 Body mass index (BMI) [Ratio] 31.47 kg/m2 Odell Ball Other [employer] Other 10-22-2022 15:00-0400 Body weight 68.31 kg Odell Ball Other [employer] Other 10-22-2022 15:00-0400 Diastolic blood pressure 81 mm[Hg] Odell Ball Other [employer] Other 10-22-2022 15:00-0400 Respiratory rate 12 /min Odell Ball Other [employer] Other 10-22-2022 15:00-0400 Systolic blood pressure 150 mm[Hg] Odell Ball Other [employer] Other 07-24-2022 16:00-0500 Body height 147.32 cm Odell Ball Other [employer] Other 07-24-2022 16:00-0500 Body mass index (BMI) [Ratio] 31.81 kg/m2 Odell Ball Other [employer] Other 07-24-2022 16:00-0500 Body temperature 97 [degF] Odell Ball Other [employer] Other 07-24-2022 16:00-0500 Body weight 69.04 kg Odell Ball Other [employer] Other Encounters Encounter Date Encounter Type Care Provider Facility Start: 11-20-2023 End: 11-20-2023 ambulatory JEREMIAS HENRY Not Available Start: 11-19-2023 End: 11-19-2023 Patient encounter procedure DO Odell Ball Work Phone: [facility] Work Phone: Start: 11-19-2023 End: 11-19-2023 ambulatory Magno Pichardo II Facility:[facility] Start: 11-19-2023 End: 11-19-2023 Patient encounter procedure DO Odell Ball Work Phone: [facility] Start: 11-08-2023 Non-patient / Non-visit DO Alex nolan Ball Work Phone: [facility] [employer] Work Phone: Start: 11-04-2023 End: 11-04-2023 ambulatory [facility] Start: 10-23-2023 End: 10-23-2023 ambulatory ANNABELLA DAWSON Not Available Start: 10-08-2023 End: 10-08-2023 Patient encounter procedure DO Odell Ball Work Phone: [facility] [facility] Work Phone: Start: 10-08-2023 End: 10-08-2023 ambulatory Magno Pichrado II Facility:[facility] Start: 10-08-2023 End: 10-08-2023 ambulatory DO Odell Ball Work Phone: [facility] Work Phone: Start: 10-08-2023 End: 10-08-2023 Patient encounter procedure DO Odell Ball Work Phone: [facility] Start: 09-19-2023 End: 09-19-2023 Patient encounter procedure DO Odell Ball Work Phone: [facility] Work Phone: Start: 09-17-2023 Non-patient / Non-visit DO Alex nolan Ball Work Phone: [facility] Work Phone: Start: 09-13-2023 End: 09-15-2023 Non-patient / Non-visit DO Odell Ball Work Phone: [facility] Work Phone: Start: 09-11-2023 End: 09-15-2023 Non-patient / Non-visit DO Odell Ball Work Phone: [facility] Work Phone: Start: 09-10-2023 End: 09-15-2023 Non-patient / Non-visit DO Odell Ball Work Phone: [facility] Work Phone: Start: 09-03-2023 End: 09-15-2023 Non-patient / Non-visit DO Odell Ball Work Phone: [facility] Work Phone: Start: 09-03-2023 End: 09-15-2023 Non-patient / Non-visit DO Odell Ball Work Phone: [facility] Re[facility] Sp[facility] Work Phone: Start: 09-02-2023 End: 09-15-2023 Evaluation and management of inpatient Elijah Mayers Facility:[facility] Start: 09-02-2023 End: 09-15-2023 Evaluation and management of inpatient DO Odell Ball Work Phone: [facility] Work Phone: Start: 09-02-2023 Non-patient / Non-visit DO Alex nolan Ball Work Phone: [facility] Work Phone: Start: 09-01-2023 Non-patient / Non-visit DO Alex nolan Ball Work Phone: [facility] Work Phone: Start: 09-01-2023 End: 09-02-2023 Evaluation and management of inpatient Magno M Inwood II Facility:[facility] Start: 09-01-2023 Non-patient / Non-visit DO Alex nolan Ball Work Phone: [facility] Work Phone: Start: 08-25-2023 End: 08-25-2023 Patient encounter procedure DO Odell Ball Work Phone: [facility] Work Phone: Start: 08-22-2023 End: 08-22-2023 Patient encounter procedure DO Odell Ball Work Phone: [facility] Work Phone: Start: 08-20-2023 End: 08-20-2023 ambulatory Magno M Inwood II Facility:[facility] Start: 08-20-2023 End: 08-20-2023 ambulatory DO Odell Ball Work Phone: [facility] Work Phone: Start: 08-20-2023 End: 08-20-2023 Discharged Recurring DO Odell Ball Work Phone: [facility] [place] Start: 08-20-2023 Registered Recurring DO Benjam in Ball Work Phone: [facility] Start: 08-20-2023 End: 08-20-2023 ambulatory DO Odell Ball Work Phone: [facility] Work Phone: Start: 08-20-2023 End: 08-20-2023 Patient encounter procedure DO Odell Ball Work Phone: [facility]-Pre-Surgical Testing Work Phone: Start: 08-20-2023 End: 08-20-2023 ambulatory DO Odell Ball Work Phone: [facility] Work Phone: Start: 08-20-2023 End: 08-20-2023 Patient encounter procedure DO Odell Ball Work Phone: [facility] Work Phone: Start: 08-01-2023 End: 08-01-2023 ambulatory Odell Ball Other [employer] Other Start: 08-01-2023 Encounter for other preprocedural examination Odell Ball [facility] Start: 08-01-2023 Office outpatient vi sit 25 minutes Odell Ball [facility] Start: 08-01-2023 Telephone encounter Odell Ball [facility] Start: 08-01-2023 End: 08-01-2023 Patient encounter procedure DO Odell Ball Work Phone: [facility]- Start: 07-23-2023 Telephone encounter Magno Pichardo II [facility] Start: 07-23-2023 End: 07-23-2023 ambulatory Magno Pichardo II [facility] Work Phone: Start: 07-23-2023 End: 07-23-2023 Patient encounter procedure DO Odell Ball Work Phone: [facility] [place] Work Phone: Start: 07-22-2023 End: 07-23-2023 ambulatory NBA MARCELO Not Available Start: 07-09-2023 End: 07-09-2023 ambulatory Magno Pichardo II Other [employer] Other Start: 07-09-2023 Office outpatient vi sit 15 minutes Magno Inwood II [facility] Start: 07-09-2023 End: 07-09-2023 Patient encounter procedure DO Odell Ball Work Phone: [facility] Work Phone: Start: 06-06-2023 End: 06-06-2023 ambulatory Odell Ball Other [employer] Other Start: 06-06-2023 Office outpatient vi sit 15 minutes Odell Ball [facility] Start: 06-06-2023 End: 06-06-2023 Patient encounter procedure DO Odell Ball Work Phone: [facility] Work Phone: Start: 05-26-2023 End: 05-26-2023 ambulatory Odell Ball Other [employer] Other Start: 05-26-2023 Office outpatient vi sit 15 minutes Odell Ball [facility] Start: 05-26-2023 Telephone encounter Odell Ball [facility] Start: 05-21-2023 Office outpatient ne w 45 minutes Magno Mcclendonle II [facility] Start: 05-21-2023 End: 05-21-2023 ambulatory Magno Pichardo II [employer] Other Start: 05-21-2023 End: 05-21-2023 Patient encounter procedure DO Odell Ball Work Phone: [facility] Start: 05-21-2023 End: 05-21-2023 Patient encounter procedure DO Odell Harrington Work Phone: [facility] Work Phone: Start: 05-20-2023 End: 05-20-2023 ambulatory Odell Harrington Other [employer] Other Start: 05-20-2023 Office outpatient vi sit 25 minutes Odell Juany [facility] Start: 05-20-2023 Telephone encounter Odell Harrington [facility] Start: 05-20-2023 End: 05-20-2023 Patient encounter procedure DO Odell Harrington Work Phone: [facility] Work Phone: Start: 05-14-2023 End: 05-14-2023 ambulatory [facility] Start: 11-29-[address] ODELL HARRINGTON Facili ty:[facility] Start: 11-19-2022 End: 11-19-2022 ambulatory NARENDRANATH LAKSHMIPATHY . Facility:[facility] Start: 11-05-2022 End: 11-06-2022 ambulatory NARENDRANATH LAKSHMIPATHY . Facility:[facility] Start: 10-31-2022 End: 11-01-[address] ODELL HARRINGTON Facility:[facility] Start: 10-22-2022 End: 10-22-2022 ambulatory Odell Harrington Other [employer] Other Start: 10-22-2022 Patient encounter procedure Odell Harrington [facility] Start: 10-08-2022 End: 10-08-2022 ambulatory Odell Harrington Other [employer] Other Start: 10-08-2022 Office outpatient vi sit 15 minutes Odell Harrington [facility] Start: 07-24-2022 End: 07-24-2022 ambulatory Odell Harrington Other [employer] Other Start: 07-24-2022 Office outpatient vi sit 25 minutes Odell Harrington [facility] Start: 07-12-2022 Patient encounter status Odell Harrington Other [facility] [employer] Other Start: 05-08-2022 End: 05-09-2022 ambulatory JEREMIAS MCGUIRE Facility:[facility] Start: 02-04-2022 End: 03-20-[address] ODELL HARRINGTON Facility:[facility] Start: 01-25-2022 End: 01-26-[address] ODELL HARRINGTON Facility:[facility] Procedures Date Procedure Procedure Detail Performing Clinician Start: 11-19-2023 Plain X-ray of right femur DO Odell [employer] Work Phone: Start: 11-19-2023 Plain X-ray of right tibia and right fibula DO Odell [employer] Work Phone: Start: 11-19-2023 X-ray of left knee DO B enjamin [employer] Work Phone: Start: 11-19-2023 X-ray of right knee DO Odell [employer] Work Phone: Start: 10-08-2023 X-ray of right knee DO Odell [employer] Work Phone: Start: 09-05-2023 Duplex scan of lower limb veins DO Odell [employer] Work Phone: Start: 08-20-2023 Antibody screen Magno Pichardo II Comment on above: Order Comment: Date of Surgery: [id number] Result Comment: PERF ORMED BY: [facility] [address] [place] [address] PATHOLOGIST WINDSMITH BUBBA MERIDA M.D. 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 DO Odell Harrington Work Phone: Plan of Treatment Date Care Activity Detail Author Start: 09-15-2023 [facility] Start: 09-02-2023 Hospital admission [facility] Start: 09-02-2023 Referral to clinical bank runner [facility] Start: 09-02-2023 [facility] Start: 09-01-2023 Hospital admission [facility] Start: 09-01-2023 Referral to clinical bank runner [facility] Start: 09-01-2023 Referral to rehabilitation physician [facility] Start: 08-20-2023 [facility] Start: 08-20-2023 Bacteria identified in Urine by Culture [facility] Start: 08-20-2023 Urine culture Urine Culture [facility] Start: 07-23-2023 MRSA Culture MRSA Culture [facility] Comprehensive metabo lic 2000 panel - Serum or Plasma [facility] Cotinine [Mass/volum e] in Serum or Plasma [facility] Glucose measurement estimated from glycated hemoglobin [facility] Methicillin resistan t Staphylococcus aureus [Presence] in Unspecified specimen by Organism specific culture [facility] Nicotine [Mass/volum e] in Serum or Plasma [facility] Patient Education Total Knee Rep lacement (DC) [facility] Work Phone: Patient referral [facility] Work Phone: [facility] Immunizations Immunization Date Immunization Notes Care Provider Jackie gill 05-14-2023 RSV, preF3, adj, pf DO Farhad Harrington Work Phone: [facility] 04-30-2023 Flu Shot - Documentation Purposes Only Odell Harrington Other [facility] 04-23-2022 influenza, high dose seasonal, preservative-free Odell Harrington Other [facility] [employer] Other 04-23-2022 Influenza vaccine, quadrivalent, adjuvanted DO Odell Harrington Work Phone: [facility] 04-23-2022 influenza virus vaccine, split virus (incl. purified surface antigen) Odell Harrington Other [facility] [employer] Other 04-23-2022 influenza virus vaccine, unspecified formulation DO Odell Harrington Work Phone: [facility] 04-05-2021 COVID-19 Vaccine Pfi zer - Documentation Purposes Only Odell Harrington Other [facility] 03-26-2021 Fluzone QIV High-Dos e 65YR+ DO Odell Harrington Work Phone: [facility] 03-26-2021 influenza virus vaccine, split virus (incl. purified surface antigen) Odell Harrington Other [facility] [employer] Other 03-26-2021 influenza virus vaccine, unspecified formulation DO Odell Harrington Work Phone: [facility] 08-16-2020 COVID-19 Vaccine Pfi zer - Documentation Purposes Only Odell Harrington Other [facility] 07-26-2020 COVID-19 Vaccine Moderna - Documentation Purposes Only Odell Harrington Other [facility] 07-26-2020 COVID-19 Vaccine Pfi zer - Documentation Purposes Only Odell Harrington Other [facility] 03-16-2020 influenza virus vaccine, split virus (incl. purified surface antigen) Odell Harrington Other [facility] [employer] Other 03-16-2020 influenza virus vaccine, unspecified formulation DO Odell Harrington Work Phone: [facility] 03-15-2020 influenza, injectabl e, quadrivalent, preservative free DO Odell Harrington Work Phone: [facility] 04-16-2019 influenza virus vaccine, split virus (incl. purified surface antigen) Odell Harrington Other [facility] [employer] Other 04-16-2019 influenza virus vaccine, unspecified formulation DO Odell Harrington Work Phone: [facility] 04-20-2018 influenza virus vaccine, split virus (incl. purified surface antigen) Odell Harrington Other [facility] [employer] Other 04-20-2018 influenza virus vaccine, unspecified formulation DO Odell [employer] Work Phone: [facility] 04-20-2018 Seasonal trivalent influenza vaccine, adjuvanted, preservative free DO Odell [employer] Work Phone: [facility] 05-21-2017 influenza virus vaccine, split virus (incl. purified surface antigen) Odell Harrington Other [facility] [employer] Other 05-21-2017 influenza virus vaccine, unspecified formulation DO [employer] Work Phone: [facility] 05-21-2017 influenza, high dose seasonal, preservative-free DO Odell [employer] Work Phone: [facility] 04-23-2016 influenza virus vaccine, split virus (incl. purified surface antigen) Odell Harrington Other [facility] [employer] Other 04-23-2016 influenza virus vaccine, unspecified formulation DO Odell [employer] Work Phone: [facility] 04-23-2016 influenza, high dose seasonal, preservative-free DO Odell Harrington Work Phone: [facility] 05-11-2015 pneumococcal conjuga te vaccine, 13 valent Odell Harrington Other [facility] 04-27-2015 tetanus and diphther ia toxoids, adsorbed, preservative free, for adult use (5 Lf of tetanus toxoid and 2 Lf of diphtheria toxoid) Odell Harrington Other [facility] 04-12-2015 influenza, injectabl e, quadrivalent, preservative free DO Odell Harrington Work Phone: [facility] 04-12-2015 pneumococcal polysaccharide vaccine, 23 valent Odell Harrington Other [facility] 04-08-2014 tetanus and diphther ia toxoids, adsorbed, preservative free, for adult use (5 Lf of tetanus toxoid and 2 Lf of diphtheria toxoid) Odell [employer] Other [facility] 01-05-2014 zoster vaccine, live DO Noemí Harrington Work Phone: [facility] 05-10-2013 tetanus and diphther ia toxoids, adsorbed, preservative free, for adult use (5 Lf of tetanus toxoid and 2 Lf of diphtheria toxoid) Odell [employer] Other [facility] 03-04-2012 tetanus and diphther ia toxoids, adsorbed, preservative free, for adult use (5 Lf of tetanus toxoid and 2 Lf of diphtheria toxoid) Odell [employer] Other [facility] 05-11-2008 pneumococcal polysaccharide vaccine, 23 valent Odell Harrington Other [facility] 01-21-2000 tetanus toxoid, adsorbed DO Odell Harrington Work Phone: [facility] Payers Date Payer Category Payer Self-pay 1957 Medicare [id number] 2.1 [id number] 1959 Private Health Insurance [facility] [id number] 1940 Unknown [id number] 2.16.84 [id number] 1940 Unknown [id number] 2.16.84 0.1.378464.3.579.2.593 1942 Unknown [id number] 2.16.84 0.1.692354.3.579.2.593 1942 Unknown [id number] 2.16.84 0.1.943426.3.579.2.593 1942 Unknown [id number] 2.16.84 0.1.499797.3.579.2.593 1942 Unknown [id number] 2.16.84 0.1.601007.3.579.2.593 1942 Unknown [id number] 2.16.84 0.1.403976.3.579.2.593 1942 Unknown [id number] 2.16.84 0.1.387400.3.579.2.1259 1942 Unknown [id number] 2.16.84 0.1.194092.3.579.2.1259 1942 Unknown [id number] 2.16.84 0.1.295843.3.579.2.1259 1942 Unknown [id number] 2.16.84 0.1.417742.3.579.2.1259 1942 Unknown [id number] 2.16.84 0.1.760930.3.579.2.1259 Unknown [id number] 2.16.8 40.1.756002.3.579.2.531 Unknown [id number] 2.16.8 [id number] Social History Date Type Detail Facility Sex Assigned At [employer] Other Start: 08-20-2023 End: 09-03-2023 Tobacco smoking status WYIS Never smoked tobacco (finding) [facility] Start: 1940 Sex Assigned At Female [facility] NEGATED: Highlighted row [facility] Medical Equipment Procedure Code Equipment Code Equipment Origin al Text Equipment Identifier Dates Arthroplasty, knee, total, minimally invasive Orthopaedic cement, non-medicated [id number] FDA Start: 09-01-2023 Arthroplasty, knee, total, minimally invasive Uncoated knee femur prosthesis ()[id number] FDA Start: 09-01-2023 Arthroplasty, knee, total, minimally invasive Tibial insert ()[id number] FDA Start: 09-01-2023 Arthroplasty, knee, total, minimally invasive Polyethylene patella prosthesis ()[id number] FDA Start: 09-01-2023 Arthroplasty, knee, total, minimally invasive Knee stem ()[id number] FDA Start: 09-01-2023 Arthroplasty, knee, total, minimally invasive Uncoated knee tibia prosthesis, metallic ()[id number] FDA Start: 09-01-2023 Goals Date Patient Goal Desired Activity /State Functional Status Date Assessment Result Facility 09-15-2023 Functional status Patient at Baseline [facility] Work Phone: Mental Status Date Assessment Result Facility 09-15-2023 Cognitive function Cognitive Sta tus Patient at Baseline [facility] Work Phone: Clinical Notes 07-24-2022 to 11-04-2023 Note Date & Type Note Facility 11-04-2023 Note Cardiovascular Medic ine [facility] SUBJECTIVE No chief complaint on file. 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 (more content not included)... [facility] 11-04-2023 Note Patient here for 6 m [...] All other systems reviewed and are negative. [facility] 09-15-2023 Discharge summary Note Date/Time September 15, 2023 12:34pm [facility] [address] [place], [place] [id number] Discharge Summary Signed Patient: Ashley Brown MR#: [id number] : 1940 Acct:[id number] Age/Sex: 82 / F Adm Date: 4 Loc: Room: [address] [place] [address]: Elijah Mayers MD Copies to: DO Elijah Wheat MD Elena Turovskaya, BOX BENDER~ Providers Date of Discharge: 09/15/23 Discharging Provider: [...] mobility. Patient will be discharged home with [facility] home health services. No additional DME is [...] Plan Discharge Plan Patient [place] [facility] [place] Ambulate as Tolerated and May Shower [...] as needed. Your Home Health agency is [facility] ( ). They will contact you after discharge to schedule a day/time to meet with you at [facility] to establish care. You have been given [...] signed by Elijah Mayers MD> 09/15/23 1311 [facility] Work Phone: 1(143) 527-814503-18-2024 Progress note Author Magno Pichardo [facility] September 15, 2023 7:54am Note Date/Time September 15, 2023 7:5 4am [facility] [address] [place] [address] Orthopedic Progress Note Signed Patient: Ashley Brown MR#: [id number] : 1940 Acct:[id number] Age/Sex: 82 / F Adm Date: 4 Loc: Room: 7B0753-4 Type: ADM IN Attending Dr: Elijah Mayers [...] Full extension to approximate 105 degrees painlessly. [facility] Ambulation: 1 Yes, [...] signed by Magno Pichardo MD> 09/15/23 0754 [facility] Work Phone: 1(224) 858-712003-17-2024 Progress note Author Patricia Mayberry [facility] September 14, 2023 5:41pm Note Date/Time September 14, 2023 5:3 9pm [facility] [address] [place] [address] Hospitalist Progress Note Signed Patient: Ashley Brown MR#: [id number] : 1940 Acct:[id number] Age/Sex: 82 / F Adm Date: 4 Loc: Room: 3K1223-4 Type: ADM IN Attending Dr: Elijah Mayers [...] Vicodin] Allergy (Verified 09/02/23 15:58) Vomiting Rocuronium [place] Allergy (Unknown, Uncoded 08/20/23 14:19) breathing difficulty [...] mg 09/02/23 14:57 Bisacodyl 10 Mg Supp.Rect MI 09/01/24 14:56 DAILY PRN Constipation Diclofenac Sodium 2 gm 09/02/23 18:00 09/13/23 08:35 Diclofenac Sodium 1% Gel 100 Gm Tube TOPICAL 09/01/24 17:59 2 gm QID ERNIE Administration Docusate Sodium 283 mg 09/02/23 14:57 Docusate Enema 283 Mg/5 Ml Enema MI 09/01/24 14:56 DAILY PRN Constipation Docusate Sodium [...] Documented By: Patricia Mayberry APRN 08/28 12/21 5584 Signed By: <Electronically signed by CHASITY Mayberry> 09/14/23 6919 [facility] Work Phone: 1(256) 975-587603-15-2024 Progress note Author Elijah Mayers [facility] September 12, 2023 2:08pm Note Date/Time September 12, 2023 2:0 8pm [facility] [address] [place] [address] Physiatry(Rehab) Progress Note Signed Patient: Ashley Brown MR#: [id number] : 1940 Acct:[id number] Age/Sex: 82 / F Adm Date: 4 Loc: Room: [address] [place] [address] Type: ADM IN Attending Dr: Elijah Mayers [...] She was given Compazine injection by hospitalist [employer] which 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 She does [...] Vicodin] Allergy (Verified 09/02/23 15:58) Vomiting Rocuronium [place] Allergy (Unknown, Uncoded 08/20/23 14:19) breathing difficulty [...] mg 09/02/23 14:57 Bisacodyl 10 Mg Supp.Rect MI 09/01/24 14:56 DAILY PRN Constipation Diclofenac Sodium 2 gm 09/02/23 18:00 09/12/23 08:49 Diclofenac Sodium 1% Gel 100 Gm Tube TOPICAL 09/01/24 17:59 2 gm QID ERNIE Administration Docusate Sodium 283 mg 09/02/23 14:57 Docusate Enema 283 Mg/5 Ml Enema MI 09/01/24 14:56 DAILY PRN Constipation Docusate Sodium 100 mg 09/05/23 14:06 Docusate 100 Mg Capsule PO 09/03/24 08:59 BID PRN Constipation Enoxaparin Sodium 40 mg 09/03/23 10:35 09/12/23 08:49 Enoxaparin 40 Mg/0.4 Ml Syringe SUBCUT 09/02/24 10:34 40 mg DAILY@1000 ERNIE Administration Home Med 1 each 09/02/23 23:30 Home Meds Kept In [place] [facility] [place] 23:29 PRN PRN zz.Pharmacy Note Lactulose [...] equipment to enhance the patient's a functional temple Ensure adequate nutrition and hydration Sleep: No issues Pain: Continue current regimen for now Discharge plannin/18 Patient was personally seen by me, Dr. Mayers, on the day of encounter, reviewed the history and the relevant portions of the chart, including current orders, allied health and data power consultant notes, labs/imaging and performed timmons elements of exam and I formulated the plan of care and facilitated the medical decision making. I completed a substantive portion of this encounter, the medical decision makingportion of this note in its entirety, including Allied health note review, nursing note review, data power consultant note review, discussion with nursing and case management, and more than 50% of my time was spent on counseling and coordination of care, time spent 25 minutes Documented By: Elijah Mayers MD 140 Signed By: <Electronically signed by Elijah Mayers MD> 09/12/23 1408 [facility] Work Phone: 1(545) 579-825203-14-2024 Progress note Author Elijah Mayers [facility] September 11, 2023 1:21pm Note Date/Time September 11, 2023 1:2 1pm [facility] [address] [place] [address] Physiatry(Rehab) Progress Note Signed Patient: Ashley Brown MR#: [id number] : 1940 Acct:[id number] Age/Sex: 82 / F Adm Date: 4 Loc: Room: [address] [place] [address] Type: ADM IN Attending Dr: Elijah Mayers [...] She was given Compazine injection by hospitalist CELLAR HAND which 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 She does [...] Vicodin] Allergy (Verified 09/02/23 15:58) Vomiting Rocuronium [place] Allergy (Unknown, Uncoded 08/20/23 14:19) breathing difficulty [...] mg 09/02/23 14:57 Bisacodyl 10 Mg Supp.Rect MI 09/01/24 14:56 DAILY PRN Constipation Diclofenac Sodium 2 gm 09/02/23 18:00 09/11/23 09:38 Diclofenac Sodium 1% Gel 100 Gm Tube TOPICAL 09/01/24 17:59 Not Given QID ERNIE Docusate Sodium 283 mg 09/02/23 14:57 Docusate Enema 283 Mg/5 Ml Enema MI 09/01/24 14:56 DAILY PRN Constipation Docusate Sodium 100 mg 09/05/23 14:06 Docusate 100 Mg Capsule PO 09/03/24 08:59 BID PRN Constipation Enoxaparin Sodium 40 mg 09/03/23 10:35 09/11/23 09:38 Enoxaparin 40 Mg/0.4 Ml Syringe SUBCUT 09/02/24 10:34 40 mg DAILY@1000 ERNIE Administration Home Med 1 each 09/02/23 23:30 Home Meds Ke[place] In [place] [facility] [place]/01/[place] 23:29 PRN PRN zz.Pharmacy Note Lactulose [...] equipment to enhance the patient's a functional temple Ensure adequate nutrition and hydration Sleep: No issues Pain: Continue current regimen for now Discharge plannin/18 Patient was personally seen by me, Dr. Mayers, on the day of encounter, reviewed the history and the relevant portions of the chart, including current orders, allied health and data power consultant notes, labs/imaging and performed timmons elements of exam and I formulated the plan of care and facilitated the medical decision making. I completed a substantive portion of this encounter, the medical decision makingportion of this note in its entirety, including Allied health note review, nursing note review, data power consultant note review, discussion with nursing and case management, and more than 50% of my time was spent on counseling and coordination of care, time spent 26 minutes Documented By: Elijah Mayers MD 1318 Signed By: <Electronically signed by Elijah Mayers MD> 09/11/23 1321 [facility] Work Phone: 1(374) 625-167503-14-2024 Progress note Author Magno Pichardo [facility] September 11, 2023 8:23am Note Date/Time September 11, 2023 8:1 5am [facility] [address] [place] [address] Orthopedic Progress Note Signed Patient: Ashley Brown MR#: [id number] : 1940 Acct:[id number] Age/Sex: 82 / F Adm Date: 4 Loc: Room: 5T9762-0 Type: ADM IN Attending Dr: Elijah Mayers [...] 11 Signed By: <Electronically signed by Magno Picahrdo MD> 09/11/23 0823 [facility] Work Phone: 1(486) 590-199703-13-2024 Progress note Author Elijah Mayers [facility] September 10, 2023 1:36pm Note Date/Time September 10, 2023 1:3 6pm [facility] [address] [place] [address] Physiatry(Rehab) Progress Note Signed Patient: Ashley Brown MR#: [id number] : 1940 Acct:[id number] Age/Sex: 82 / F Adm Date: 4 Loc: Room: 8D1375-8 Type: ADM IN Attending Dr: Elijah Mayers MD Copies to: ~ Date of Service: 09/10/2023 Subjective Subjective Narrative: Ms. Brwon is a 82 year old female with [...] She was given Compazine injection by hospitalist CELLAR HAND which 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 She does [...] Vicodin] Allergy (Verified 09/02/23 15:58) Vomiting Rocuronium [place] Allergy (Unknown, Uncoded 08/20/23 14:19) breathing difficulty [...] mg 09/02/23 14:57 Bisacodyl 10 Mg Supp.Rect MI 09/01/24 14:56 DAILY PRN Constipation Diclofenac Sodium 2 gm 09/02/23 18:00 09/10/23 10:49 Diclofenac Sodium 1% Gel 100 Gm Tube TOPICAL 09/01/24 17:59 2 gm QID ERNIE Administration Docusate Sodium 283 mg 09/02/23 14:57 Docusate Enema 283 Mg/5 Ml Enema MI 09/01/24 14:56 DAILY PRN Constipation Docusate Sodium 100 mg 09/05/23 14:06 Docusate 100 Mg Capsule PO 09/03/24 08:59 BID PRN Constipation Enoxaparin Sodium 40 mg 09/03/23 10:35 09/10/23 10:48 Enoxaparin 40 Mg/0.4 Ml Syringe SUBCUT 09/02/24 10:34 40 mg DAILY@1000 ERNIE Administration Home Med 1 each 09/02/23 23:30 [facility] 09/01/24 23:29 PRN PRN zz.Pharmacy [...] equipment to enhance the patient's a functional temple Ensure adequate nutrition and hydration Sleep: No issues Pain: Continue current regimen for now Discharge plannin/18 Patient was personally seen by me, Dr. Mayers, on the day of encounter, reviewed the history and the relevant portions of the chart, including current orders, allied health and data power consultant notes, labs/imaging and performed timmons elements of exam and I formulated the plan of care and facilitated the medical decision making. I completed a substantive portion of this encounter, the medical decision makingportion of this note in its entirety, including Allied health note review, nursing note review, data power consultant note review, discussion with nursing and case management, and more than 50% of my time was spent on counseling and coordination of care, time spent 26 minutes Documented By: Elijah Mayers MD 1332 Signed By: <Electronically signed by Elijah Mayers MD> 09/10/23 4536 [facility] Work Phone: 1(460) 785-595103-13-2024 Progress note Author Elijah Mayers [facility] September 10, 2023 9:32am Note Date/Time September 09, 2023 1:2 2pm [facility] [address] [place] [address] Physiatry(Rehab) Progress Note Signed Patient: Ashley Brown MR#: [id number] : 1940 Acct:[id number] Age/Sex: 82 / F Adm Date: 4 Loc: Room: [address] [place] [address] Type: ADM IN Attending Dr: Elijah Mayers [...] She was given Compazine injection by hospitalist CELLAR HAND which 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 She does [...] affect appropriate. Normal speech. Objective <Heidi Moshe, BOX BENDER - Last Filed: 09/09/23 13:22> Labs 09/08/23 [...] Vicodin] Allergy (Verified 09/02/23 15:58) Vomiting Rocuronium [place] Allergy (Unknown, Uncoded 08/20/23 14:19) breathing difficulty [...] mg 09/02/23 14:57 Bisacodyl 10 Mg Supp.Rect MI 09/01/24 14:56 DAILY PRN Constipation Cefadroxil 500 mg 09/02/23 21:00 09/09/23 09:23 Cefadroxil 500 Mg Capsule PO 09/09/23 20:59 500 mg BID ERNIE Administration Diclofenac Sodium 2 gm 09/02/23 18:00 09/09/23 09:24 Diclofenac Sodium 1% Gel 100 Gm Tube TOPICAL 09/01/24 17:59 2 gm QID ERNIE Administration Docusate Sodium 283 mg 09/02/23 14:57 Docusate Enema 283 Mg/5 Ml Enema MI 09/01/24 14:56 DAILY PRN Constipation Docusate Sodium 100 mg 09/05/23 14:06 Docusate 100 Mg Capsule PO 09/03/24 08:59 BID PRN Constipation Enoxaparin Sodium 40 mg 09/03/23 10:35 09/09/23 09:24 Enoxaparin 40 Mg/0.4 Ml Syringe SUBCUT 09/02/24 10:34 40 mg DAILY@1000 ERNIE Administration Home Med 1 each 09/02/23 23:30 Home Meds Kept In [place] [facility] [place] 09/01/[place] 23:29 PRN PRN zz.Pharmacy Note Lactulose [...] mg QHS ERNIE Administration Assessment/Plan <Heidi Mesa, BOX BENDER - Last Filed: 09/09/23 13:22> Assessment/Plan (1) [...] equipment to enhance the patient's a functional temple Ensure adequate nutrition and hydration Sleep: No issues Pain: Continue current regimen for now Discharge planning: Home alone in about a week. I spent 22 minutes for services, including qobf-or-etvp encounter with the patient, discussion of the case, plan of care, and exam; and xexlols-tq-ciaf activities, such as reviewing pertinent data power consultant documentation, recent therapynotes, laboratory and radiology studies, and discussion of case with care team including physician, nursing, case loader operator, and therapists. More than 50 % of [...] equipment to enhance the patient's a functional temple Ensure adequate nutrition and hydration Sleep: No issues Pain: Continue current regimen for now Discharge planning: Home alone in about a week. I spent 22 minutes for services, including itwh-gh-jyzn encounter with the patient, discussion of the case, plan of care, and exam; and hsznbcb-qs-faox activities, such as reviewing pertinent data power consultant documentation, recent therapynotes, laboratory and radiology studies, and discussion of case with care team including physician, nursing, case loader operator, and therapists. More than 50 % of time was spent on patient/family counseling or coordination ofcare. Patient was personally seen by me, Dr. Mayers, on the day of encounter, reviewed the history and the relevant portions of the chart, including current orders, allied health and data power consultant notes, labs/imaging and performed timmons elements of exam and I formulated the plan of care and facilitated the medical decision making. I completed a substantive portion of this encounter, the medical decision makingportion of this note in its entirety, including Allied health note review, nursing note review, data power consultant note review, discussion with nursing and [...] signed by Elijah Mayers MD> 09/10/23 0932 [facility] Work Phone: 1(482) [phone] Progress note Author Elijah Mayers [facility] September 08, 2023 2:53pm Note Date/Time September 08, 2023 2:5 3pm [facility] [address] [place] [address] Physiatry(Rehab) Progress Note Signed Patient: Ashley Brown MR#: [id number] : 1940 Acct:[id number] Age/Sex: 82 / F Adm Date: 4 Loc: Room: [address] [place] [address] Type: ADM IN Attending Dr: Elijah Mayers [...] She was given Compazine injection by hospitalist CELLAR HAND which 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 She does [...] % (Auto) 54.1 Lymph % (Auto) 31.1 [place] % (Auto) 9.5 Eos % (Auto) 4.0 Baso % (Auto) 1.3 Nucleat RBC Rel Count 0.1 Neut # (Auto) 4.0 Lymph # (Auto) 2.3 [place] # (Auto) 0.7 Eos # (Auto) 0.3 [...] Vicodin] Allergy (Verified 09/02/23 15:58) Vomiting Rocuronium [place] Allergy (Unknown, Uncoded 08/20/23 14:19) breathing difficulty [...] mg 09/02/23 14:57 Bisacodyl 10 Mg Supp.Rect MI 09/01/24 14:56 DAILY PRN Constipation Cefadroxil 500 mg 09/02/23 21:00 09/08/23 09:48 Cefadroxil 500 Mg Capsule PO 09/09/23 20:59 500 mg BID ERNIE Administration Diclofenac Sodium 2 gm 09/02/23 18:00 09/08/23 14:25 Diclofenac Sodium 1% Gel 100 Gm Tube TOPICAL 09/01/24 17:59 2 gm QID ERNIE Administration Docusate Sodium 283 mg 09/02/23 14:57 Docusate Enema 283 Mg/5 Ml Enema MI 09/01/24 14:56 DAILY PRN Constipation Docusate Sodium 100 mg 09/05/23 14:06 Docusate 100 Mg Capsule PO 09/03/24 08:59 BID PRN Constipation Enoxaparin Sodium 40 mg 09/03/23 10:35 09/08/23 09:49 Enoxaparin 40 Mg/0.4 Ml Syringe SUBCUT 09/02/24 10:34 40 mg DAILY@1000 ERNIE Administration Home Med 1 each 09/02/23 23:30 Home Meds Kept In [place] [facility] [place] 09/01/[place] 23:29 PRN PRN zz.Pharmacy Note Lactulose [...] equipment to enhance the patient's a functional temple Ensure adequate nutrition and hydration Sleep: No issues Pain: Continue current regimen for now Discharge planning: Home alone in about a week. I spent 35 minutes for services, including ljtd-eh-vwmj encounter with the patient, discussion of the case, plan of care, and exam; and apftcur-lg-npya activities, such as reviewing pertinent data power consultant documentation, recent therapynotes, laboratory and radiology studies, and discussion of case with care team including physician, nursing, case loader operator, and therapists. More than 50 % of time was spent on patient/family counseling or coordination ofcare. Documented By: Elijah Mayers MD 1449 Signed By: <Electronically signed by Elijah Mayers MD> 09/08/23 1453 [facility] Work Phone: 1(210) 840-518903-11-2024 Progress note Author Elijah Mayers [facility] September 08, 2023 1:35pm Note Date/Time September 05, 2023 1:57 pm [facility] [address] [place] [address] Physiatry(Rehab) Progress Note Signed Patient: Ashley Brown MR#: [id number] : 1940 Acct:[id number] Age/Sex: 82 / F Adm Date: 4 Loc: Room: [address] [place] [address] Type: ADM IN Attending Dr: Elijah Mayers [...] She was given Compazine injection by hospitalist CELLAR HAND which 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 She does [...] Vicodin] Allergy (Verified 09/02/23 15:58) Vomiting Rocuronium [place] Allergy (Unknown, Uncoded 08/20/23 14:19) breathing difficulty [...] mg 09/02/23 14:57 Bisacodyl 10 Mg Supp.Rect MI 09/01/24 14:56 DAILY PRN Constipation Cefadroxil 500 mg 09/02/23 21:00 09/05/23 10:01 Cefadroxil 500 Mg Capsule PO 500 mg BID ERNIE Administration Diclofenac Sodium 2 gm 09/02/23 18:00 09/05/23 10:02 Diclofenac Sodium 1% Gel 100 Gm Tube TOPICAL 09/01/24 17:59 2 gm QID ERNIE Administration Docusate Sodium 283 mg 09/02/23 14:57 Docusate Enema 283 Mg/5 Ml Enema MI 09/01/24 14:56 DAILY PRN Constipation Docusate Sodium 100 mg 09/04/23 09:00 09/05/23 10:02 Docusate 100 Mg Capsule PO 09/03/24 08:59 Not Given BID [facility] Enoxaparin Sodium 40 mg 09/03/23 10:35 09/05/23 10:02 Enoxaparin 40 Mg/0.4 Ml Syringe SUBCUT 09/02/24 10:34 40 mg DAILY@1000 [facility] Administration Home Med 1 each 09/02/23 23:30 [facility] 09/01/24 23:29 PRN PRN zz.Pharmacy [...] equipment to enhance the patient's a functional temple Ensure adequate nutrition and hydration Sleep: No issues Pain: Continue current regimen for now Discharge planning: Home alone in about a week. I spent 17 minutes for services, including fbcc-vv-iwfw encounter with the patient, discussion of the case, plan of care, and exam; and ttijisc-nn-rcij activities, such as reviewing pertinent data power consultant documentation, recent therapynotes, laboratory and radiology studies, and discussion of case with care team including physician, nursing, case loader operator, and therapists. More than 50 % of time was spent on patient/family counseling or coordination ofcare. <Statement entered by Elijah Mayers MD - 09/08/23 13:35> This documentation has been reviewed and approved. Documented By: Heidi Mesa APRN 09/05/23 1 356 Signed By: <Electronically signed by CHASITY Mesa> 09/05/23 1413 <Electronically signed by Elijah Mayers MD> 09/08/23 1258 [facility] Work Phone: 1(797) 367-592203-11-2024 Progress note Author Elijah Mayers [facility] September 08, 2023 1:35pm Note Date/Time September 07, 2023 8:2 7pm [facility] [address] [place] [address] Physiatry(Rehab) Progress Note Signed Patient: Ashley Brown MR#: [id number] : 1940 Acct:[id number] Age/Sex: 82 / F Adm Date: 4 Loc: Room: 8D9137-6 Type: ADM IN Attending Dr: Elijah Mayers [...] She was given Compazine injection by hospitalist CELLAR HAND which 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 She does [...] Vicodin] Allergy (Verified 09/02/23 15:58) Vomiting Rocuronium [place] Allergy (Unknown, Uncoded 08/20/23 14:19) breathing difficulty [...] mg 09/02/23 14:57 Bisacodyl 10 Mg Supp.Rect MI 09/01/24 14:56 DAILY PRN Constipation Cefadroxil 500 mg 09/02/23 21:00 09/07/23 08:36 Cefadroxil 500 Mg Capsule PO 09/09/23 20:59 500 mg BID ERNIE Administration Diclofenac Sodium 2 gm 09/02/23 18:00 09/07/23 17:28 Diclofenac Sodium 1% Gel 100 Gm Tube TOPICAL 09/01/24 17:59 Not Given QID [facility] Docusate Sodium 283 mg 09/02/23 14:57 Docusate Enema 283 Mg/5 Ml Enema MI 09/01/24 14:56 DAILY PRN Constipation Docusate Sodium 100 mg 09/05/23 14:06 Docusate 100 Mg Capsule PO 09/03/24 08:59 BID PRN Constipation Enoxaparin Sodium 40 mg 09/03/23 10:35 09/07/23 09:53 Enoxaparin 40 Mg/0.4 Ml Syringe SUBCUT 09/02/24 10:34 Not Given DAILY@1000 [facility] Home Med 1 each 09/02/23 23:30 [facility] 09/01/24 23:29 PRN PRN zz.Pharmacy [...] equipment to enhance the patient's a functional temple Ensure adequate nutrition and hydration Sleep: No issues Pain: Continue current regimen for now Discharge planning: Home alone in about a week. I spent 19 minutes for services, including daww-rw-pcfn encounter with the patient, discussion of the case, plan of care, and exam; and cderuba-ya-crnh activities, such as reviewing pertinent data power consultant documentation, recent therapynotes, laboratory and radiology studies, and discussion of case with care team including physician, nursing, case loader operator, and therapists. More than 50 % of time was spent on patient/family counseling or coordination ofcare. <Statement entered by Elijah Mayers MD - 09/08/23 13:35> This documentation has been reviewed and approved. Documented By: Heidi Mesa APRN 09/07/23 2 021 Signed By: <Electronically signed by CHASITY Mesa> 09/07/232031 <Electronically signed by Elijah Mayers MD> 09/08/23 1339 [facility] Work Phone: 1(358) 458-164403-07-2024 Progress note Author Elijah Mayers [facility] September 04, 2023 2:42pm Note Date/Time September 04, 2023 2:35 pm [facility] [address] [place] [address] Physiatry(Rehab) Progress Note Signed Patient: Ashley Brown MR#: [id number] : 1940 Acct:[id number] Age/Sex: 82 / F Adm Date: 4 Loc: Room: 1T5080-6 Type: ADM IN Attending Dr: Elijah Mayers [...] She was given Compazine injection by hospitalist CELLAR HAND which 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 She does [...] Vicodin] Allergy (Verified 09/02/23 15:58) Vomiting Rocuronium [place] Allergy (Unknown, Uncoded 08/20/23 14:19) breathing difficulty [...] mg 09/02/23 14:57 Bisacodyl 10 Mg Supp.Rect MI 09/01/24 14:56 DAILY PRN Constipation Cefadroxil 500 mg 09/02/23 21:00 09/04/23 09:26 Cefadroxil 500 Mg Capsule PO 500 mg BID ERNIE Administration Diclofenac Sodium 2 gm 09/02/23 18:00 09/04/23 09:28 Diclofenac Sodium 1% Gel 100 Gm Tube TOPICAL 09/01/24 17:59 2 gm QID ERNIE Administration Docusate Sodium 283 mg 09/02/23 14:57 Docusate Enema 283 Mg/5 Ml Enema MI 09/01/24 14:56 DAILY PRN Constipation Docusate Sodium [...] equipment to enhance the patient's a functional temple Ensure adequate nutrition and hydration Sleep: No issues Pain: Continue current regimen for now Discharge planning: Home alone in about a week. I spent 14 minutes for services, including qzwk-gk-gboc encounter with the patient, discussion of the case, plan of care, and exam; and xlscctm-zo-bibz activities, such as reviewing pertinent data power consultant documentation, recent therapynotes, laboratory and radiology studies, and discussion of case with care team including physician, nursing, case loader operator, and therapists. More than 50 % of time was spent on patient/family counseling or coordination ofcare. <Statement entered by Elijah Mayers MD - 09/04/23 14:41> I reviewed the history and the relevant portions of the chart, including currentorders, allied health and data power consultant notes, labs/imaging and plan of care as above. Documented By: Heidi Mesa APRN 09/04/23 1 429 Signed By: <Electronically signed by CHASITY Mesa> 09/04/23 1435 <Electronically signed by Elijah Mayers MD> 09/04/23 1442 [facility] Work Phone: 1(948) 860-246903-07-2024 Consult note Author Saud Zuniga [facility] September 04, 2023 6:55am Note Date/Time September 03, 2023 2:36 pm [facility] [address] [place] [address] Hospitalist Consult Note Signed Patient: Ashley Brown MR#: [id number] : 1940 Acct:[id number] Age/Sex: 82 / F Adm Date: 4 Loc: Room: [address] [place] [address] Type: ADM IN Attending Dr: Elijah Mayers [...] History of heart bypass surgery 2020 in [place] History of cardiac catheterization prior to open [...] Vicodin] Allergy (Verified 09/02/23 15:58) Vomiting Rocuronium [place] Allergy (Unknown, Uncoded 08/20/23 14:19) breathing difficulty [...] mg PO QPM 08/20/23 [History Confirmed 09/02/23] esjyjebi-nav-qoqko ac 400 mcg-calcium carb 500 mg-vit K1 [...] mg 09/02/23 14:57 Bisacodyl 10 Mg Supp.Rect MI 09/01/24 14:56 DAILY PRN Constipation Cefadroxil 500 [...] 14:57 Docusate Enema 283 Mg/5 Ml Enema MI 09/01/24 14:56 DAILY PRN Constipation Enoxaparin Sodium [...] % (Auto) 76.7, Lymph % (Auto) 10.7, [place] % (Auto) 11.5, Eos % (Auto) 0.8, Baso % (Auto) 0.3, Nucleat RBC Rel Count 0.0, Neut # (Auto) 6.0, Lymph # (Auto) 0.8 L, [place] # (Auto) 0.9 H, Eos # (Auto) 0.1, Baso # (Auto) 0.0, PHA Creatinine Clear 47.47, Sodium 137, Potassium 4.5, Chloride 101, Carbon Dioxide 28.6, Anion Gap 11.9, BUN 11, Creatinine 0.78, Est GFR (CKD-EPI) > 60.0, Hbdtwzu462 H, Calcium 8.8, Total Bilirubin 0.4, AST [...] signed by Saud Zuniga MD> 09/04/23 0655 [facility] Work Phone: 1(514) 808-523703-06-2024 History and physical note Author Elijah Mayers [facility] September 03, 2023 2:37pm Note Date/Time September 03, 2023 11:0 2am [facility] [address] [place] [address] Physiatry (Rehab) H&P Signed Patient: Ashley Brown MR#: [id number] : 1940 Acct:[id number] Age/Sex: 82 / F Adm Date: 4 Loc: Room: 1P3095-5 Type: ADM IN Attending Dr: Elijah Mayers MD Copies to: DO Elijah Wheat MD Elena Turovskaya, BOX BENDER~ Date of Service: 09/03/2023 HPI The patient [...] She was given Compazine injection by hospitalist CELLAR HAND which 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 She does [...] consisting of friends and family. [facility] Medical History Paroxysmal atrial fibrillation Primary insomnia [...] History of heart bypass surgery 2020 in [place] History of cardiac catheterization prior to open [...] Vicodin] Allergy (Verified 09/02/23 15:58) Vomiting Rocuronium [place] Allergy (Unknown, Uncoded 08/20/23 14:19) breathing difficulty [...] mg PO QPM 08/20/23 [History Confirmed 09/02/23] oshshkmg-ztx-hahxk ac 400 mcg-calcium carb 500 mg-vit K1 [...] 81 Mg Tablet.Dr) 81 mg PO BID [facility] Stop: 09/01/24 20:59 Last Admin: 09/03/23 09:08 Dose: 81 mg Atorvastatin Calcium (Atorvastatin 10 Mg Tablet) 10 mg PO QHS [facility] Stop: 09/01/24 21:59 Last Admin: 09/02/23 22:50 Dose: 10 mg Bisacodyl (Bisacodyl 10 Mg Supp.Rect) 10 mg [place] DAILY PRN PRN Reason: Constipation Stop: 09/01/24 14:56 Cefadroxil (Cefadroxil 500 Mg Capsule) 500 mg PO BID [facility] Last Admin: 09/03/23 09:08 Dose: 500 mg Diclofenac Sodium (Diclofenac Sodium 1% Gel 100 Gm Tube) 2 gm TOPICAL QID [facility] Stop: 09/01/24 17:59 Last Admin: 09/03/23 09:09 Dose: 2 gm Docusate Sodium (Docusate 100 Mg Capsule) 100 mg PO BID PRN PRN Reason: Constipation Stop: 09/01/24 14:56 Docusate Sodium (Docusate Enema 283 Mg/5 Ml Enema) 283 mg MI DAILY PRN PRN Reason: Constipation Stop: 09/01/24 14:56 Enoxaparin Sodium (Enoxaparin 40 Mg/0.4 Ml Syringe) 40 mg SUBCUT DAILY@1000 [facility] Stop: 09/02/24 10:34 Home Med (Home Meds Kept In Pharmacy) 1 each [facility] PRN PRN PRN Reason: zjose.Pharmacy Note Stop: 09/01/24 23:29 Lactulose (Lactulose 20 Gm/30 Ml Udc) 30 gm PO DAILY PRN PRN Reason: Constipation Stop: 09/01/24 14:56 Losartan Potassium (Losartan 25 Mg Tablet) 25 mg PO QAM [facility] Stop: 09/02/24 08:59 Last Admin: 09/03/23 09:08 Dose: 25 mg Metoprolol Succinate (Metoprolol Succinate 25 Mg Tab.Er.24h) 25 mg PO QPM [facility] Stop: 09/01/24 20:59 Last Admin: 09/02/23 22:50 [...] 17 Gm Powd.Pack) 17 gm PO DAILY [facility] Stop: 09/02/24 08:59 Last Admin: 09/03/23 09:11 [...] (1,000 Units) Tablet) 50 mcg PO DAILY [facility] Stop: 09/02/24 08:59 Last Admin: 09/03/23 09:08 Dose: 50 mcg Vitamin E (Vitamin E (Dl Tocopheryl Acet) 180 Mg (400 Units) Capsule) 180 mg PODAILY [facility] Stop: 09/02/24 08:59 Last Admin: 09/03/23 09:08 [...] % (Auto) 76.7 Lymph % (Auto) 10.7 [place] % (Auto) 11.5 Eos % (Auto) 0.8 Baso % (Auto) 0.3 Nucleat RBC Rel Count 0.0 Neut # (Auto) 6.0 Lymph # (Auto) 0.8 L [place] # (Auto) 0.9 H Eos # (Auto) [...] 7 Days Expected Discharge Destination: Home Rehabilitation [facility]: 8. Primary Diagnosis: as above Patient?s/Family?s anticipated [...] 24 hour daily monitoring and intervention from [facility] as well as other consulting physicians including internal medicine as well as 24 hour daily associate professor of sociology nursing - for medical safe / optimal [...] equipment to enhance the patient's a functional temple Ensure adequate nutrition and hydration Sleep: No issues Pain: Continue current regimen for now Discharge planning: Home alone in about a week. I spent 44 minutes for services, including [id number] encounter with the patient, discussion of the case, plan of care, and exam; and [id number] activities, such as reviewing pertinent data power consultant documentation, recent therapynotes, laboratory and radiology studies, and discussion of case with care team including physician, nursing, case loader operator, and therapists. More than 50 % of time was spent on patient/family counseling or coordination ofcare. Patient was personally seen by me, Dr. Mayers, on the day of encounter, within 24 hours of rehab admission, reviewed the history and the relevant portions of the chart, including current orders, allied health and data power consultant notes, labs/imaging and performed timmons elements of exam and I formulated the planof care and facilitated the medical decision making. I completed a substantive portion of this encounter, the medical decision makingportion of this note in its entirety, including Allied health note review, nursing note review, data power consultant note review, discussion with nursing and [...] signed by Elijah Mayers MD> 09/03/23 [address] [facility] Work Phone: [phone]) 274-895402-02-2024 Evaluation note* Encounter Date Diagnosis Assessment Notes [...] DVT, acute blood loss anemia and infection. [employer] Other 01-24-2024 Evaluation note* Encounter Date Diagnosis Assessment Notes Treatment Notes Treatment Clinical Notes Jun, Primary osteoarthritis of right knee (ICD-10 - M17.11) Jun, Other termite helper (current) drug therapy (ICD-10 - Z79.899) Jun, Other osteoporosis without current pathological fracture (ICD-10 - M81.8) [employer] Other 01-10-2024 Evaluation note* Encounter Date Diagnosis [...] would likely benefit from acute inpatient rehab. [employer] Other 12-08-2023 Evaluation note* Encounter Date Diagnosis [...] Cleanse w/ soap and water. Mupirocin bid [employer] Other 11-27-2023 Evaluation note* Encounter Date Diagnosis [...] AHA diet plan. Continue secondary prevention measures. [employer] Other 11-22-2023 Evaluation note* Encounter Date Diagnosis [...] and or her pain management office in [place] to get that left hip injected with [...] by [employer] in 2013 with [employer] components [employer] Other 11-21-2023 Evaluation note* Encounter Date Diagnosis [...] are maintaining regular scheduled appts with their plant etiologist. Apr, Generalized anxiety disorder (ICD-10 - F41.1) [...] 50% narrowing Continue ASA and Statin therapy. [employer] Other 11-15-2023 NoteUT Cardiology - [facility] Subjective Ashley Brown is a 82 y.o. year old female patient being seen for Follow-up (6 months) Patient Active Problem List Diagnosis Coronary artery disease involving salt river coronary artery of salt river heart without angina pectoris Essential hypertension History [...] MOUTH EVERY DAY, D (more content not included)...[facility]05-09-2023 Note CONSULTATION CONSULTATION DATE: 11/05/2022 TO: Bell [...] our patients to inform us about any [id number] medications or herbal remedies/nutritional supplements/alternative remedies. 2. [...] treatment options with their primary care provider.[id number] Evaluation note * Encounter Date Diagnosis Assessment [...] are maintaining regular scheduled appts with their plant etiologist. No bleeding complications Sep, Generalized anxiety disorder (ICD-10 - F41.1) Healthy diet, exercise and keep active Sep, Hyperlipidemia type II (ICD-10 - E78.01) Diet and exercise with continued statin therapy. Sep, Primary osteoarthritis of both knees (ICD-10 - M17.0) Quad exercises, ice/heat and Tylenol Orthopedics referring to Pain Management Discussed opiates: Tramadol doesn't help, declines Addison Sep, Bilateral carotid bruits (ICD-10 - R09.89) Carotid US: 50-60% B/L 2018 Carotid US: < 50% 08/2021 < 50% stenosis Continue primary prevention measures Sep, Precordial pain (ICD-10 - R07.2) Sep, High risk medication use (ICD-10 - Z79.899) [employer] Other 04-11-2023 Evaluation note* Encounter Date Diagnosis Assessment Notes Treatment Notes Treatment Clinical Notes Sep, Acute bronchitis due to other specified organisms (ICD-10 - J20.8) Instructed to use Robitussin or Mucinex for cough, saline or Flonase NS for congestion, Tylenol for pain and fever. Sep, ASHD (arteriosclerotic heart disease) (ICD-10 - I25.10) Avoid use of decongestants w/ OTC medications [employer] Other 01-25-2023 Evaluation note* Encounter Date Diagnosis [...] use of Tylenol, Glucosamine and IA injections. [facility] [employer] Other Evaluation noteNo [facility] [employer] Other Evaluation note* Diagnosis Onset Date Resolution Status Primary osteoarthritis of right knee acute [facility] Work Phone: Evaluation note* Diagnosis Onset Date [...] Status post total right knee replacement acute [facility] Work Phone: Evaluation note* Diagnosis Onset Date Resolution Status Primary osteoarthritis of right knee acute Acute sinusitis noneactive ASHD (arteriosclerotic heart disease) acute Primary osteoarthritis of right knee acute ASHD (arteriosclerotic heart disease) acute Elevated cholesterol acute Acute sinusitis noneactive Acute blood loss anemia none active Aftercare following right kn ee joint replacement surgery acute [facility] Work Phone: Evaluation note* Diagnosis Onset Date Resolution Status Acute sinusitis noneactive ASHD (arteriosclerotic heart disease) acute Primary osteoarthritis of right knee acute ASHD (arteriosclerotic heart disease) acute Elevated cholesterol acute Acute sinusitis noneactive Acute blood loss anemia none active Aftercare following right kn ee joint replacement surgery acute Aftercare following right kn ee joint replacement surgery acute [facility] Work Phone: Evaluation noteNo assessment information available [facility] Work Phone: History general Narrative - Reported* [...] Surgical History cholecystectomy Surgical History left TKA [employer] Other History general Narrative - Reported* Type [...] left TKA Hospitalization History see surgical history [employer] Other Summary Purpose Family History Relationship Condition [...] From Lt Hip Joint Injection Also Rec z79.410 m17.11m81.8 Pre-Op Clearance H&P RTKA Knee Pain RTK Pre Op Reason for Visit Primary osteoarthrit is of right knee Chief Complaint Follow Up F/U From Lt Hip Joint Injection Also Rec z79.899 m17.11m81.8 Pre-Op Clearance H&P RTKA m17.11 Knee Pain RTK Pre Op Reason for Visit Primary osteoarthrit is of right knee Chief Complaint F/U From Lt Hip Join t Injection Also Rec z79.890 m17.11m81.8 Pre-Op Clearance H&P RTKA m17.11 Knee Pain RTK Pre Op Sinuses, Cough, Sore Throat- [phone] Knee Pain Knee Pain Knee Pain Right [...] RTK Pre Op Sinuses, Cough, Sore Throat- [phone] Knee Pain Knee Pain Knee Pain Right Knee Osteoarthritis s/p TKA Right Knee Osteoarthritis s/p TKA Right Knee Osteoarthritis s/p TKA Right Knee Osteoarthritis s/p TKA Right Knee Osteoarthritis s/p TKA Right Knee Osteoarthritis s/p TKA Amb [place] [facility] [place] Follow Up Z47.1 - Aftercare following joint replacement surg 4 WK RECHECK Reason for Visit Primary osteoarthrit is of right knee Acute sinusitis ASHD (arteriosclerotic heart disease) Primary osteoarthritis of right knee ASHD (arteriosclerotic heart disease) Elevated cholesterol Acute sinusitis Acute blood loss anemia Aftercare following right knee joint replacement surgery Chief Complaint Sinuses, Cough, Sore Throat- [phone] Knee Pain Knee Pain Knee Pain Right Knee Osteoarthritis s/p TKA Right Knee Osteoarthritis s/p TKA Right Knee Osteoarthritis s/p TKA Right Knee Osteoarthritis s/p TKA Right Knee Osteoarthritis s/p TKA Right Knee Osteoarthritis s/p TKA Amb Documentation [facility] [place] Dis[place] Follow Up Z47.1 - Aftercare [...] 4 Month Follow Up - Flu Shot Intelligence Officer Basic Lt Knee Pain Update Xrays Per [place] M25.562 Follow Up F/U From Lt Hip Joint Injection Also Rec z79.899 m17.11m81.8 Additional Source Comments INFORMATION SOURCE (unrecogn ized section and content) DATE CREATED AUTHOR 03/21/2021 [facility] DATE CREATED AUTHOR AUTHOR'S ORGANIZ ATION 12/06/2022 [facility] DATE CREATED AUTHOR AUTHOR'S ORGANIZ ATION 11/22/2023 [facility] DATE CREATED AUTHOR AUTHOR'S ORGANIZ ATION 11/22/2023 [facility] DATE CREATED AUTHOR AUTHOR'S ORGANIZ ATION 11/22/2023 [facility] EPIC REASON FOR VISIT (unrecogniz ed section and content) Lab resultsPre-Op ClearanceF /U FROM LT HIP JOINT INJECTION ALSO RECHECK RIGHT KNEE WANTS TO DISCUSS [phone] coldATB wantedNP LT KNEE PAIN UPDATE XRAYS PER [facility], SCHED AUTH APPROVED PREVIOUS TKA4 month Follow upPT order3 month Follow upSinus Infection/Cough-COVID Negative [phone] Care Teams (unrecognized sec tion and content) [...] Status: Inactive Member Role Status Dates Odell Harirngton DO Primary Care Provider Active Start: July [...] Anne Ha RN Other Provider Active Start: [facility] 2023 End: September 02, 2023 Bernie Bell , GLO Other Provider Active Star t: September 01, 2023 End: September 02, 2023 Cecelia Villegas RN Other Provider Active Start : September 01, 2023 End: September 02, 2023 Zina Kunz , GLO Other Provider Active Start: [facility] 2023 End: September 02, 2023 Carline Cardozo , GLO Other Provider Active Start: [facility] 2023 End: September 02, 2023 Annalisa Gar MD Other Provider Active Start: September 01, 2023 End: September 02, 2023 Foster Santiago MD Other Provider Active Start: [facility] 2023 End: September 02, [...] Raymond Hilton MD Other Provider Active Start: [facility] 2023 End: September 02, 2023 Patricia Mayberry APRN Other Provider Active Start: September 01, 2023 End: September 02, 2023 Warren Mera MD Other Provider Active Start: September 01, 2023 End: September 02, 2023 Flavio Woods MD Other Provider Active Start: [facility] 2023 End: September 02, 2023 Saud Zuniga MD Other Provider Active Start: September 01, 2023 End: September 02, 2023 Benjamin Plasencia MD Other Provider Active Start: September 01, 2023 End: September 02, 2023 Roger Carranza DO Other Provider Active Start: September 01, 2023 End: September 02, 2023 Ricardo Souza MD Other Provider Active Start: [facility] 2023 End: September 02, 2023 Allen Andres MD Other Provider Active Start: [facility] 2023 End: September 02, 2023 ROCK MendozaC Other Provider Active St art: September 01, 2023 End: September 02, 2023 Sloane Martin APRN Other Provider Active Star t: September 01, 2023 End: September 02, 2023 Huy Rosenbaum MD Other Provider Active Start: September 01, 2023 End: September 02, 2023 Augie Ontiveros MD Other Provider Active Start: [facility] 2023 End: September 02, 2023 Lc Lima MD Other Provider Active Start: [facility] 2023 End: September 02, 2023 Mati Alberto MD Other Provider Active Star t: September 01, 2023 End: September 02, 2023 Farhan Smith MD Other Provider Active Start: [facility] 2023 End: September 02, 2023 Rakel Regan DO Other Provider Active Start: [facility] 2023 End: September 02, 2023 Silverio [...] Tushar Cohen MD Other Provider Active Start: [facility] 2023 End: September 02, [...] Martina Thakkar RN Other Provider Active Start: [facility] 2023 End: September 02, 2023 Dilip Laird MD Other Provider Active Start: [facility] 2023 End: September 02, [...] Ha , GLO Other Provider Active Start: [facility] 2023 Bernie Bell RN Other Provider Active Star t: September 01, 2023 Cecelia Villegas , GLO Other Provider Active Start : September 01, 2023 Zina Kunz , GLO Other Provider Active Start: [facility] 2023 Carline Cardozo RN Other Provider Active Start: [facility] 2023 Annalisa Gar MD Other Provider Active Start: September 01, 2023 Foster Santiago MD Other Provider Active Start: [facility] 2023 Lulú Garcia APRN [...] Raymond Hilton MD Other Provider Active Start: [facility] 2023 Patricia Mayberry APRN Other Provider Active Start: September 01, 2023 Warren Mera MD Other Provider Active Start: September 01, 2023 Flavio Woods MD Other Provider Active Start: [facility] 2023 Saud Zuniga MD Other Provider Active Start: September 01, 2023 Benjamin Plasencia MD Other Provider Active Start: September 01, 2023 Roger Carranza , Other Provider Active Start: September 01, 2023 Ricardo Souza MD Other Provider Active Start: [facility] 2023 Allen Andres MD Other Provider Active Start: [facility] 2023 GERRY Mendoza Other Provider Active St art: September 01, 2023 Sloane Martin APRN Other Provider Active Star t: September 01, 2023 Huy Rosenbaum MD Other Provider Active Start: September 01, 2023 Augie Ontiveros MD Other Provider Active Start: [facility] 2023 Lc Lima MD Other Provider Active Start: [facility] 2023 Mati Alberto MD Other Provider Active Star t: September 01, 2023 Farhan Smith MD Other Provider Active Start: [facility] 2023 Rakel Regan , Other Provider Active Start: [facility] 2023 Silverio Irizarry , Other Provider [...] Tushar Cohen MD Other Provider Active Start: [facility] 2023 Vidal Akins MD Other Provider Active S tart: September 01, 2023 Aiden Stoll , DO Other Provider Active Star t: September 01, 2023 Lucas Carrillo , Other Provider Active Start: September 01, 2023 Jordy Lima MD Other Provider Active Start: September 01, 2023 Martina Thakkar RN Other Provider Active Start: [facility] 2023 Dilip Laird MD Other Provider Active Start: [facility] 2023 Team Status: Active [...] Ha , GLO Other Provider Active Start: [facility] 2023 Bernie Bell , GLO Other Provider Active Star t: September 02, 2023 Cecelia Villegas , GLO Other Provider Active Start : September 02, 2023 Zina Kunz , GLO Other Provider Active Start: [facility] 2023 Carline Cardozo , GLO Other Provider Active Start: [facility] 2023 Annalisa Gar MD Other Provider Active Start: September 02, 2023 Foster Santiago MD Other Provider Active Start: [facility] 2023 Lulú Garcia APRN [...] Raymond Hilton MD Other Provider Active Start: [facility] 2023 Patricia Mayberry APRN Other Provider Active Start: September 02, 2023 Warren Mera MD Other Provider Active Start: September 02, 2023 Flavio Woods MD Other Provider Active Start: [facility] 2023 Saud Zuniga MD Other Provider Active Start: September 02, 2023 Benjamin Plasencia MD Other Provider Active Start: September 02, 2023 Roger Carranza DO Other Provider Active Start: September 02, 2023 Ricardo Souza MD Other Provider Active Start: [facility] 2023 Allen Andres MD Other Provider Active Start: [facility] 2023 Lashonda Earl , [employer]-C Other Provider Active St art: September 02, 2023 Sloane Martin APRN Other Provider Active Star t: September 02, 2023 Huy Rosenbaum MD Other Provider Active Start: September 02, 2023 Augie Ontiveros MD Other Provider Active Start: [facility] 2023 Lc Lima MD Other Provider Active Start: [facility] 2023 Mati Alberto MD Other Provider Active Star t: September 02, 2023 Farhan Smith MD Other Provider Active Start: [facility] 2023 Rakel Regan DO Other Provider Active Start: [facility] 2023 Silverio Irizarry , Other Provider [...] Tushar Cohen MD Other Provider Active Start: [facility] 2023 Vidal Akins MD Other Provider Active S tart: September 02, 2023 Aiden Stoll , DO Other Provider Active Star t: September 02, 2023 Lucas Carrillo , Other Provider Active Start: September 02, 2023 Jordy Lima MD Other Provider Active Start: September 02, 2023 Martina Thakkar , GLO Other Provider Active Start: [facility] 2023 Dilip Laird MD [...] Anne Ha RN Other Provider Active Start: [facility] 2023 End: September 15, 2023 Bernie Bell RN Other Provider Active Star t: September 02, 2023 End: September 15, 2023 Cecelia Villegas RN Other Provider Active Start : September 02, 2023 End: September 15, 2023 Zina Kunz , GLO Other Provider Active Start: [facility] 2023 End: September 15, 2023 Carline Cardozo RN Other Provider Active Start: [facility] 2023 End: September 15, 2023 Annalisa Gar MD Other Provider Active Start: September 02, 2023 End: September 15, 2023 Foster Santiago MD Other Provider Active Start: [facility] 2023 End: September 15, [...] Raymond Hilton MD Other Provider Active Start: [facility] 2023 End: September 15, 2023 Patricia Mayberry APRN Other Provider Active Start: September 02, 2023 End: September 15, 2023 Warren Mera MD Other Provider Active Start: September 02, 2023 End: September 15, 2023 Flavio Woods MD Other Provider Active Start: [facility] 2023 End: September 15, 2023 Saud Zuniga MD Other Provider Active Start: September 02, 2023 End: September 15, 2023 Benjamin Plasencia MD Other Provider Active Start: September 02, 2023 End: September 15, 2023 Roger Carranza DO Other Provider Active Start: September 02, 2023 End: September 15, 2023 Ricadro Souza MD Other Provider Active Start: [facility] 2023 End: September 15, 2023 Allen Andres MD Other Provider Active Start: [facility] 2023 End: September 15, 2023 Lashonda Earl NP-C Other Provider Active St art: September 02, 2023 End: September 15, 2023 Sloane Martin APRN Other Provider Active Star t: September 02, 2023 End: September 15, 2023 Huy Rosenbaum MD Other Provider Active Start: September 02, 2023 End: September 15, 2023 Augie Ontiveros MD Other Provider Active Start: [facility] 2023 End: September 15, 2023 Lc Lima MD Other Provider Active Start: [facility] 2023 End: September 15, 2023 Mati Alberto MD Other Provider Active Star t: September 02, 2023 End: September 15, 2023 Farhan Smith MD Other Provider Active Start: [facility] 2023 End: September 15, 2023 Rakel Regan DO Other Provider Active Start: [facility] 2023 End: September 15, 2023 Silverio [...] Tushar Cohen MD Other Provider Active Start: [facility] 2023 End: September 15, 2023 Vidal Akins MD Other Provider Active S tart: September 02, 2023 End: September 15, 2023 Aiden Stoll , Other Provider Active Star t: September 02, 2023 End: September 15, 2023 Jordy Lima MD Other Provider Active Start: September 02, 2023 End: September 15, 2023 Martina Thakkar , GLO Other Provider Active Start: [facility] 2023 End: September 15, [...] Ha , GLO Other Provider Active Start: [facility] 2023 Bernie Bell , GLO Other Provider Active Star t: September 03, 2023 Cecelia Villegas , GLO Other Provider Active Start : September 03, 2023 Zina Kunz RN Other Provider Active Start: [facility] 2023 Carline Cardozo , GLO Other Provider Active Start: [facility] 2023 Annalisa Gar MD Other Provider Active Start: September 03, 2023 Foster Santiago MD Other Provider Active Start: [facility] 2023 Lulú Garcia APRN [...] Raymond Hilton MD Other Provider Active Start: [facility] 2023 Patricia Mayberry APRN Other Provider Active Start: September 03, 2023 Warren Mera MD Other Provider Active Start: September 03, 2023 Flavio Woods MD Other Provider Active Start: [facility] 2023 Saud Zuniga MD Other Provider Active Start: September 03, 2023 Benjamin Plasencia MD Other Provider Active Start: September 03, 2023 Roger Carranza , Other Provider Active Start: September 03, 2023 Ricardo Souza MD Other Provider Active Start: [facility] 2023 Allen Andres MD Other Provider Active Start: [facility] 2023 Lashonda Earl , [employer]C Other Provider Active St art: September 03, 2023 Sloane Martin APRN Other Provider Active Star t: September 03, 2023 Huy Rosenbaum MD Other Provider Active Start: September 03, 2023 Augie Ontiveros MD Other Provider Active Start: [facility] 2023 Lc Lima MD Other Provider Active Start: [facility] 2023 Mati Alberto MD Other Provider Active Star t: September 03, 2023 Farhan Smith MD Other Provider Active Start: [facility] 2023 Rakel Regan , Other Provider Active Start: [facility] 2023 Silverio Irizarry , DO Other [...] Tushar Cohen MD Other Provider Active Start: [facility] 2023 Vidal Akins MD Other Provider Active S tart: September 03, 2023 Aiden Stoll , DO Other Provider Active Star t: September 03, 2023 Lucas Carrillo , DO Other Provider Active Start: September 03, 2023 Jordy Lima MD Other Provider Active Start: September 03, 2023 Martina Thakkar , GLO Other Provider Active Start: [facility] 2023 Heidi Mesa APRN [...] Ha , GLO Other Provider Active Start: [facility] 2023 Bernie Bell , GLO Other Provider Active Star t: September 03, 2023 Cecelia Villegas , GLO Other Provider Active Start : September 03, 2023 Zina Kunz , GLO Other Provider Active Start: [facility] 2023 Carline Cardozo , GLO Other Provider Active Start: [facility] 2023 Annalisa Gar MD Other Provider Active Start: September 03, 2023 Foster Santiago MD Other Provider Active Start: [facility] 2023 Lulú Garcia APRN [...] Raymond Hilton MD Other Provider Active Start: [facility] 2023 Patricia Mayberry APRN Other Provider Active Start: September 03, 2023 Warren Mera MD Other Provider Active Start: September 03, 2023 Flavio Woods MD Other Provider Active Start: [facility] 2023 Saud Zuniga MD Other Provider Active Start: September 03, 2023 Benjamin Plasencia MD Other Provider Active Start: September 03, 2023 Roger Carranza , Other Provider Active Start: September 03, 2023 Ricardo Souza MD Other Provider Active Start: [facility] 2023 Allen Andres MD Other Provider Active Start: [facility] 2023 ROCK MendozaC Other Provider Active St art: September 03, 2023 Sloane Martin APRN Other Provider Active Star t: September 03, 2023 Huy Rosenbaum MD Other Provider Active Start: September 03, 2023 Augie Ontiveros MD Other Provider Active Start: [facility] 2023 Lc Lima MD Other Provider Active Start: [facility] 2023 Mati Alberto MD Other Provider Active Star t: September 03, 2023 Farhan Smith MD Other Provider Active Start: [facility] 2023 Rakel Regan , DO Other Provider Active Start: [facility] 2023 Silverio Irizarry , DO Other [...] Tushar Cohen MD Other Provider Active Start: [facility] 2023 Vidal Akins MD Other Provider Active S tart: September 03, 2023 Aiden Stoll , DO Other Provider Active Star t: September 03, 2023 Lucas Carrillo , DO Other Provider Active Start: September 03, 2023 Jordy Lima MD Other Provider Active Start: September 03, 2023 Martina Thakkar GLO Other Provider Active Start: [facility] 2023 Team Status: Active [...] Ha , GLO Other Provider Active Start: [facility] 2023 Bernie Bell , GLO Other Provider Active Star t: September 10, 2023 Cecelia Villegas RN Other Provider Active Start : September 10, 2023 Zina Kunz RN Other Provider Active Start: [facility] 2023 Carline Cardozo RN Other Provider Active Start: [facility] 2023 Annalisa Gar MD Other Provider Active Start: September 10, 2023 Foster Santiago MD Other Provider Active Start: [facility] 2023 Lulú Garcia APRN [...] Raymond Hilton MD Other Provider Active Start: [facility] 2023 Patricia Mayberry APRN Other Provider Active Start: September 10, 2023 Warren Mera MD Other Provider Active Start: September 10, 2023 Flavio Woods MD Other Provider Active Start: [facility] 2023 Saud Zuniga MD Other Provider Active Start: September 10, 2023 Benjamin Plasencia MD Other Provider Active Start: September 10, 2023 Roger Carranza DO Other Provider Active Start: September 10, 2023 Ricardo Souza MD Other Provider Active Start: [facility] 2023 Allen Andres MD Other Provider Active Start: [facility] 2023 Lashonda Earl , CELLAR HAND-C Other Provider Active St art: September 10, 2023 Sloane Martin APRN Other Provider Active Star t: September 10, 2023 Huy Rosenbaum MD Other Provider Active Start: September 10, 2023 Augie Ontiveros MD Other Provider Active Start: [facility] 2023 Lc Lima MD Other Provider Active Start: [facility] 2023 Mati Alberto MD Other Provider Active Star t: September 10, 2023 Farhan Smith MD Other Provider Active Start: [facility] 2023 Rakel Regan , Other Provider Active Start: [facility] 2023 Silverio Irizarry , Other Provider [...] Tushar Cohen MD Other Provider Active Start: [facility] 2023 Vidal Akins MD Other Provider Active S tart: September 10, 2023 Aiden Stoll , Other Provider Active Star t: September 10, 2023 Lucas Carrillo DO Other Provider Active Start: September 10, 2023 Jordy Lima MD Other Provider Active Start: September 10, 2023 Martina Thakkar RN Other Provider Active Start: [facility] 2023 Team Status: Active Member Role Status Armand Harrington DO Primary Care Provider Active Start: September 11, 2023 Elijah Mayers MD Admit Provid er, Other Provider Active Start: September 11, 2023 Ana Berry RN Other Provider Active Star t: September 11, 2023 Nuha Mcmahan RN Other Provider Active Start : September 11, 2023 Anne Ha RN Other Provider Active Start: [facility] 2023 Bernie Bell RN Other Provider Active Star t: September 11, 2023 Cecelia Villegas RN Other Provider Active Start : September 11, 2023 Zina Kunz , GLO Other Provider Active Start: [facility] 2023 Carline Cardozo RN Other Provider Active Start: [facility] 2023 Annalisa Gar MD Other Provider Active Start: September 11, 2023 Foster Santiago MD Other Provider Active Start: [facility] 2023 Lulú Garcia APRN [...] Raymond Hilton MD Other Provider Active Start: [facility] 2023 Patricia Mayberry APRN Other Provider Active Start: September 11, 2023 Warren Mera MD Other Provider Active Start: September 11, 2023 Flavio Woods MD Other Provider Active Start: [facility] 2023 Saud Zuniga MD Other Provider Active Start: September 11, 2023 Benjamin Plasencia MD Other Provider Active Start: September 11, 2023 Roger Carranza DO Other Provider Active Start: September 11, 2023 Ricardo Souza MD Other Provider Active Start: [facility] 2023 Allen Andres MD Other Provider Active Start: [facility] 2023 GERRY Mendoza Other Provider Active St art: September 11, 2023 Sloane Martin APRN Other Provider Active Star t: September 11, 2023 Huy Rosenbaum MD Other Provider Active Start: September 11, 2023 Augie Ontiveros MD Other Provider Active Start: [facility] 2023 Lc Lima MD Other Provider Active Start: [facility] 2023 Mati Alberto MD Other Provider Active Star t: September 11, 2023 Farhan Smith MD Other Provider Active Start: [facility] 2023 Rakel Regan , Other Provider Active Start: [facility] 2023 Silverio Irizarry , DO Other [...] Tushar Cohen MD Other Provider Active Start: [facility] 2023 Vidal Akins MD Other Provider Active S tart: September 11, 2023 Aiden Stoll , DO Other Provider Active Star t: September 11, 2023 Lucas Carrillo , Other Provider Active Start: September 11, 2023 Jordy Lima MD Other Provider Active Start: September 11, 2023 Martina Thakkar RN Other Provider Active Start: [facility] 2023 Magno Pichardo II, [...] : September 13, 2023 Anne Ha , LGO Other Provider Active Start: [facility] 2023 Bernie Bell , GLO Other Provider Active Star t: September 13, 2023 Cecelia Villegas RN Other Provider Active Start : September 13, 2023 Zina Kunz RN Other Provider Active Start: [facility] 2023 Carline Cardozo RN Other Provider Active Start: [facility] 2023 Annalisa Gar MD Other Provider Active Start: September 13, 2023 Foster Santiago MD Other Provider Active Start: [facility] 2023 Lulú Garcia APRN [...] Raymond Hilton MD Other Provider Active Start: [facility] 2023 Patricia Mayberry APRN Attending Pr ovider, Other Provider Active Start: September 13, 2023 Warren Mera MD Other Provider Active Start: September 13, 2023 Flavio Woods MD Other Provider Active Start: [facility] 2023 Saud Zuniga MD Other Provider Active Start: September 13, 2023 Benjamin Plasencia MD Other Provider Active Start: September 13, 2023 Roger Carranza DO Other Provider Active Start: September 13, 2023 Ricardo Souza MD Other Provider Active Start: [facility] 2023 Allen Andres MD Other Provider Active Start: [facility] 2023 Lashonda Earl NP-Magaly Other Provider Active St art: September 13, 2023 Sloane Martin APRN Other Provider Active Star t: September 13, 2023 Huy Rosenbaum MD Other Provider Active Start: September 13, 2023 Augie Ontiveros MD Other Provider Active Start: [facility] 2023 Lc Lima MD Other Provider Active Start: [facility] 2023 Mati Alberto MD Other Provider Active Star t: September 13, 2023 Farhan Smith MD Other Provider Active Start: [facility] 2023 Rakel Regan DO Other Provider Active Start: [facility] 2023 Silverio Irizarry , DO Other [...] Tushar Cohen MD Other Provider Active Start: [facility] 2023 Vidal Akins MD Other Provider Active S tart: September 13, 2023 Aiden Stoll , DO Other Provider Active Star t: September 13, 2023 Jordy Lima MD Other Provider Active Start: September 13, 2023 Martina Thakkar RN Other Provider Active Start: [facility] 2023 Team Status: Active [...] Ha , GLO Other Provider Active Start: [facility] 2023 End: September 15, 2023 Bernie Bell , GLO Other Provider Active Star t: September 03, 2023 End: September 15, 2023 Cecelia Villegas , GLO Other Provider Active Start : September 03, 2023 End: September 15, 2023 Zina Kunz , GLO Other Provider Active Start: [facility] 2023 End: September 15, 2023 Carline Cardozo , GLO Other Provider Active Start: [facility] 2023 End: September 15, 2023 Annalisa Gar MD Other Provider Active Start: September 03, 2023 End: September 15, 2023 Foster Santiago MD Other Provider Active Start: [facility] 2023 End: September 15, 2023 Lulú Garcia [...] Raymond Hilton MD Other Provider Active Start: [facility] 2023 End: September 15, 2023 Patricia Mayberry APRN Other Provider Active Start: September 03, 2023 End: September 15, 2023 Warren Mera MD Other Provider Active Start: September 03, 2023 End: September 15, 2023 Flavio Woods MD Other Provider Active Start: [facility] 2023 End: September 15, 2023 Saud uZniga MD Other Provider Active Start: September 03, 2023 End: September 15, 2023 Benjamin Plasencia MD Other Provider Active Start: September 03, 2023 End: September 15, 2023 Roger Carranza DO Other Provider Active Start: September 03, 2023 End: September 15, 2023 Ricardo Souza MD Other Provider Active Start: [facility] 2023 End: September 15, 2023 Allen Andres MD Other Provider Active Start: [facility] 2023 End: September 15, 2023 GERRY Mendoza Other Provider Active St art: September 03, 2023 End: September 15, 2023 Sloane Martin APRN Other Provider Active Star t: September 03, 2023 End: September 15, 2023 Huy Rosenbaum MD Other Provider Active Start: September 03, 2023 End: September 15, 2023 Augie Ontiveros MD Other Provider Active Start: [facility] 2023 End: September 15, 2023 Lc Lima MD Other Provider Active Start: [facility] 2023 End: September 15, 2023 Mati Alberto MD Other Provider Active Star t: September 03, 2023 End: September 15, 2023 Farhan Smith MD Other Provider Active Start: [facility] 2023 End: September 15, 2023 Rakel Regan DO Other Provider Active Start: [facility] 2023 End: September 15, 2023 Silverio [...] Tushar Cohen MD Other Provider Active Start: [facility] 2023 End: September 15, [...] Martina Thakkar RN Other Provider Active Start: [facility] 2023 End: September 15, [...] Ha , GLO Other Provider Active Start: [facility] 2023 End: September 15, 2023 Bernie Bell , GLO Other Provider Active Star t: September 03, 2023 End: September 15, 2023 Cecelia Villegas RN Other Provider Active Start : September 03, 2023 End: September 15, 2023 Zina Kunz RN Other Provider Active Start: [facility] 2023 End: September 15, 2023 Carline Cardozo RN Other Provider Active Start: [facility] 2023 End: September 15, 2023 Annalisa Gar MD Other Provider Active Start: September 03, 2023 End: September 15, 2023 Foster Santiago MD Other Provider Active Start: [facility] 2023 End: September 15, [...] Raymond Hilton MD Other Provider Active Start: [facility] 2023 End: September 15, 2023 Patricia Mayberry APRN Other Provider Active Start: September 03, 2023 End: September 15, 2023 Warren Mera MD Other Provider Active Start: September 03, 2023 End: September 15, 2023 Flavio Woods MD Other Provider Active Start: [facility] 2023 End: September 15, 2023 Saud Zuniga MD Other Provider Active Start: September 03, 2023 End: September 15, 2023 Benjamin Plasencia MD Other Provider Active Start: September 03, 2023 End: September 15, 2023 Roger Carranza DO Other Provider Active Start: September 03, 2023 End: September 15, 2023 Ricardo Souza MD Other Provider Active Start: [facility] 2023 End: September 15, 2023 Allen Andres MD Other Provider Active Start: [facility] 2023 End: September 15, 2023 GERRY Mendoza Other Provider Active St art: September 03, 2023 End: September 15, 2023 Sloane Martin APRN Other Provider Active Star t: September 03, 2023 End: September 15, 2023 Huy Rosenbaum MD Other Provider Active Start: September 03, 2023 End: September 15, 2023 Augie Ontiveros MD Other Provider Active Start: [facility] 2023 End: September 15, 2023 Lc Lima MD Other Provider Active Start: [facility] 2023 End: September 15, 2023 Mati Alberto MD Other Provider Active Star t: September 03, 2023 End: September 15, 2023 Farhan Smith MD Other Provider Active Start: [facility] 2023 End: September 15, 2023 Rakel Regan DO Other Provider Active Start: [facility] 2023 End: September 15, 2023 Silverio Irizarry DO Other Provider Active Start : September 03, 2023 End: September 15, 2023 Jean-Peirre Mariee , Other Provider Active Sta rt: [...] Tushar Cohen MD Other Provider Active Start: [facility] 2023 End: September 15, [...] Thakkar , GLO Other Provider Active Start: [facility] 2023 End: September 15, [...] Ha , GLO Other Provider Active Start: [facility] 2023 End: September 15, 2023 Bernie Bell , GLO Other Provider Active Star t: September 10, 2023 End: September 15, 2023 Cecelia Villegas , GLO Other Provider Active Start : September 10, 2023 End: September 15, 2023 Zina Kunz , GLO Other Provider Active Start: [facility] 2023 End: September 15, 2023 Carline Cardozo RN Other Provider Active Start: [facility] 2023 End: September 15, 2023 Annalisa Gar MD Other Provider Active Start: September 10, 2023 End: September 15, 2023 Foster Santiago MD Other Provider Active Start: [facility] 2023 End: September 15, [...] Raymond Hilton MD Other Provider Active Start: [facility] 2023 End: September 15, 2023 Patricia Mayberry APRN Other Provider Active Start: September 10, 2023 End: September 15, 2023 Warren Mera MD Other Provider Active Start: September 10, 2023 End: September 15, 2023 Flavio Woods MD Other Provider Active Start: [facility] 2023 End: September 15, 2023 Saud Zuniga MD Other Provider Active Start: September 10, 2023 End: September 15, 2023 Benjamin Plasencia MD Other Provider Active Start: September 10, 2023 End: September 15, 2023 Roger Carranza DO Other Provider Active Start: September 10, 2023 End: September 15, 2023 Ricardo Souza MD Other Provider Active Start: [facility] 2023 End: September 15, 2023 Allen Andres MD Other Provider Active Start: [facility] 2023 End: September 15, 2023 GERRY Mendoza Other Provider Active St art: September 10, 2023 End: September 15, 2023 Sloane Martin APRN Other Provider Active Star t: September 10, 2023 End: September 15, 2023 Huy Rosenbaum MD Other Provider Active Start: September 10, 2023 End: September 15, 2023 Augie Ontiveros MD Other Provider Active Start: [facility] 2023 End: September 15, 2023 Lc Lima MD Other Provider Active Start: [facility] 2023 End: September 15, 2023 Mati Alberto MD Other Provider Active Star t: September 10, 2023 End: September 15, 2023 Farhan Smith MD Other Provider Active Start: [facility] 2023 End: September 15, 2023 Rakel Regan , Other Provider Active Start: [facility] 2023 End: September 15, 2023 Silverio [...] Tushar Cohen MD Other Provider Active Start: [facility] 2023 End: September 15, [...] Martina Thakkar RN Other Provider Active Start: [facility] 2023 End: September 15, [...] Ha , GLO Other Provider Active Start: [facility] 2023 End: September 15, 2023 Bernie Bell RN Other Provider Active Star t: September 11, 2023 End: September 15, 2023 Cecelia Villegas RN Other Provider Active Start : September 11, 2023 End: September 15, 2023 Zina Kunz RN Other Provider Active Start: [facility] 2023 End: September 15, 2023 Carline Cardozo RN Other Provider Active Start: [facility] 2023 End: September 15, 2023 Annalisa Gar MD Other Provider Active Start: September 11, 2023 End: September 15, 2023 Foster Santiago MD Other Provider Active Start: [facility] 2023 End: September 15, [...] Raymond Hilton MD Other Provider Active Start: [facility] 2023 End: September 15, 2023 Patricia Mayberry APRN Other Provider Active Start: September 11, 2023 End: September 15, 2023 Warren Mera MD Other Provider Active Start: September 11, 2023 End: September 15, 2023 Flavio Woods MD Other Provider Active Start: [facility] 2023 End: September 15, 2023 Saud Zuniga MD Other Provider Active Start: September 11, 2023 End: September 15, 2023 Benjamin Plasencia MD Other Provider Active Start: September 11, 2023 End: September 15, 2023 Roger Carranza DO Other Provider Active Start: September 11, 2023 End: September 15, 2023 Ricardo Souza MD Other Provider Active Start: [facility] 2023 End: September 15, 2023 Allen Andres MD Other Provider Active Start: [facility] 2023 End: September 15, 2023 Lashonda Earl NP-C Other Provider Active St art: September 11, 2023 End: September 15, 2023 Sloane Martin APRN Other Provider Active Star t: September 11, 2023 End: September 15, 2023 Huy Rosenbaum MD Other Provider Active Start: September 11, 2023 End: September 15, 2023 Augie Ontiveros MD Other Provider Active Start: [facility] 2023 End: September 15, 2023 Lc Lima MD Other Provider Active Start: [facility] 2023 End: September 15, 2023 Mati Alberto MD Other Provider Active Star t: September 11, 2023 End: September 15, 2023 Farhan Smith MD Other Provider Active Start: [facility] 2023 End: September 15, 2023 Rakel Regan DO Other Provider Active Start: [facility] 2023 End: September 15, 2023 Silverio [...] Tushar Cohen MD Other Provider Active Start: [facility] 2023 End: September 15, [...] Martina Thakkar RN Other Provider Active Start: [facility] 2023 End: September 15, [...] Anne Ha RN Other Provider Active Start: [facility] 2023 End: September 15, 2023 Bernie Bell RN Other Provider Active Star t: September 13, 2023 End: September 15, 2023 Cecelia Villegas RN Other Provider Active Start : September 13, 2023 End: September 15, 2023 Zina Kunz RN Other Provider Active Start: [facility] 2023 End: September 15, 2023 Carline Cardozo RN Other Provider Active Start: [facility] 2023 End: September 15, 2023 Annalisa Gar MD Other Provider Active Start: September 13, 2023 End: September 15, 2023 Foster Santiago MD Other Provider Active Start: [facility] 2023 End: September 15, [...] Raymond Hilton MD Other Provider Active Start: [facility] 2023 End: September 15, 2023 Patricia Mayberry APRN Attending Pr belloer, Other Provider Active Start: September 13, 2023 End: September 15, 2023 Warren Mera MD Other Provider Active Start: September 13, 2023 End: September 15, 2023 Flavio Woods MD Other Provider Active Start: [facility] 2023 End: September 15, 2023 Saud Zuniga MD Other Provider Active Start: September 13, 2023 End: September 15, 2023 Benjamin Plasencia MD Other Provider Active Start: September 13, 2023 End: September 15, 2023 Roger Carranza DO Other Provider Active Start: September 13, 2023 End: September 15, 2023 Ricardo Souza MD Other Provider Active Start: [facility] 2023 End: September 15, 2023 Allen Andres MD Other Provider Active Start: [facility] 2023 End: September 15, 2023 Lashonda Earl NP-Magaly Other Provider Active St art: September 13, 2023 End: September 15, 2023 Sloane Martin APRN Other Provider Active Star t: September 13, 2023 End: September 15, 2023 Huy Rosenbaum MD Other Provider Active Start: September 13, 2023 End: September 15, 2023 Augie Ontiveros MD Other Provider Active Start: [facility] 2023 End: September 15, 2023 Lc Lima MD Other Provider Active Start: [facility] 2023 End: September 15, 2023 Mati Alberto MD Other Provider Active Star t: September 13, 2023 End: September 15, 2023 Farhan Smith MD Other Provider Active Start: [facility] 2023 End: September 15, 2023 Rakel Regan DO Other Provider Active Start: [facility] 2023 End: September 15, 2023 Silverio [...] Tushar Cohen MD Other Provider Active Start: [facility] 2023 End: September 15, [...] BE BASED ON THE PRIMARY CLINICAL RECORDS. [facility] [employer] [facility]. provides no warranty or guarantee of the accuracy or completeness of information in this document.
[2024-02-04 09:23] LABS: Alanine Aminotransferase 23 U/L (14-59); Albumin Level 3.5 g/dL (3.4-5.0); Alkaline Phosphatase 84 U/L (46-116); Aspartate Amino Transferase 20 U/L (15-37); Bilirubin Direct 0.1 mg/dL (0.0-0.2); Bilirubin Total 0.5 mg/dL (0.2-1.0); Chol HDL Ratio 2.1; Cholesterol 163 mg/dL (<=200); Globulin 3.4 g/dL; HDL Cholesterol 78 mg/dL (40-60); Total Protein 6.9 g/dL (6.4-8.2); Triglycerides 83 mg/dL (<=150); VLDL CHOLESTEROL 16.6 mg/dL
== END 2024-02-04 08:27 | disposition home or self-care (01) ==
PROVIDERS: PCP Internal Medicine; Visit Provider Nurse Practitioner Family
DX: E78.2 Mixed hyperlipidemia (principal)
CPT/HCPCS: 36415; 80061; 80076

== ENCOUNTER 2024-08-06 09:02 | Outpatient (RCR) | payer MEDICARE, SELFPAY | END 2024-09-09 10:17 | disposition home or self-care (01) | LOC: PT 09:02 | PROVIDERS: PCP Internal Medicine; Visit Provider Physical Medicine & Rehabilitation | DX: R26.89 Other abnormalities of gait and mobility (principal); Z96.642 Presence of left artificial hip joint | CPT/HCPCS: 97110; 97112; 97161; 97530 ==

== ENCOUNTER 2024-08-16 14:31 | Outpatient (OUT) | payer MEDICARE, SELFPAY ==
--- NOTE | 2024-08-16 | XR_ITS ---
The [address] [address] Patient Name: JOAN BROWN MRN: [id number] date: 1940 Sex: F Assigned Patient Location: [facility] Current Patient Location: [facility] Accession/Order Number: [id number] Exam Date: 08/16/2024 16:25 Report Date: 08/16/2024 17:41 At the request of: JENNIFER HARRINGTON Procedure: XR chest 2V CHEST X-RAY. CLINICAL HISTORY: R22.2 Mass of chest wall COMPARISON: There are no previous studies available for comparison. TECHNIQUE: Frontal and lateral chest radiographs. FINDINGS: TUBES AND LINES: None. LUNGS: Lungs are clear. PLEURA: No effusions or pneumothorax. HEART AND MEDIASTINUM: Within normal limits. OSSEOUS STRUCTURES: No acute abnormality. Intact median sternotomy wires. XR/XR chest 2V IMPRESSION: No acute findings. Electronically authenticated by: NARCISO FRASER Date: 08/16/2024 17:41
--- NOTE | 2024-08-16 14:39 | XR_ITS ---
The [address] [address] Patient Name: JOAN BROWN MRN: [id number] date: 1940 Sex: F Assigned Patient Location: [facility] Current Patient Location: [facility] Accession/Order Number: [id number] Exam Date: 08/16/2024 14:40 Report Date: 08/16/2024 15:54 At the request of: JENNIFER HARRINGTON Procedure: XR sternum min 2V EXAM: XR sternum min 2V 08/16/2024. HISTORY: R22.2 mass of chest wall COMPARISON: None. FINDINGS: There are median sternotomy wires. The superior median sternotomy wire is disrupted. On the lateral view there is evidence of a transverse fracture of the inferior third of the sternum and there is anterior displacement of the distal fragment of the sternum of 1.6 cm. There also appears to be override of the fracture fragments of the sternum in this region. XR/XR sternum min 2V IMPRESSION: 1. There is evidence of a transverse fracture of the inferior third of the sternum with anterior displacement of the distal fracture fragment of 1.6 cm and override of the fracture fragments in this region. This likely accounts for a palpable lump in this region. A CT scan of the sternum is recommended for further evaluation of these findings. 2. Status post prior median sternotomy with disruption of the proximal median sternotomy wire. Electronically authenticated by: NEY MARTINEZ Date: 08/16/2024 15:54
== END 2024-08-16 14:32 | disposition home or self-care (01) ==
LOC: RAD 14:34
PROVIDERS: PCP Internal Medicine; Visit Provider Internal Medicine
DX: R22.2 Localized swelling, mass and lump, trunk (principal); S22.20XA Unspecified fracture of sternum, initial encounter for closed fracture
CPT/HCPCS: 71046; 71120

== ENCOUNTER 2024-08-24 10:07 | Outpatient (OUT) | payer MEDICARE, SELFPAY ==
--- NOTE | 2024-08-24 10:13 | CT_ITS ---
The [address] [address] Patient Name: JOAN BROWN MRN: [id number] date: 1940 Sex: F Assigned Patient Location: CT Current Patient Location: CT Accession/Order Number: [id number] Exam Date: 08/24/2024 12:55 Report Date: 08/24/2024 13:18 At the request of: JENNIFER HARRINGTON DO Procedure: CT chest wo con CT CHEST WITHOUT CONTRAST CLINICAL DATA: Tender chest wall lump anteriorly. Previous open-heart surgery. COMPARISON: Sternal plain films 08/16/2024 Spiral images were obtained through the chest without contrast. Images were reviewed using both narrow and wide window settings. The site of patient's lump was marked on the skin. This CT exam was performed using one or more following dose reduction techniques: Automated exposure control, adjustment of the mA and/or kV according to patient size, or use of iterative reconstruction technique. The heart is within normal limits for size. There is no pericardial effusion. Coronary artery disease is seen. There is no aortic aneurysm. Carotid plaque is present at the aortic arch, descending aorta and imaged great vessels. No pathologic adenopathy is noted. There is prior median sternotomy. 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 There is also a transverse defect at the mid sternum which could be related to surgery however an unhealed fracture is not excluded. Median sternotomy wires are present in the vicinity of patient's lump. The wires do protrude into the subcutaneous soft tissues though greatest at the sternoxiphoid junction. There are no discrete subcutaneous masses or abnormal fluid collections. Degenerative changes are noted at the imaged spine. Fibrocalcific scarring is visualized at the lung apices. There is no additional consolidation, pleural effusion or pneumothorax. Limited cuts through the upper abdomen show prior cholecystectomy. There is a right renal artery stent. CT/CT chest wo con IMPRESSION: POSTOPERATIVE CHANGES OF MEDIAN STERNOTOMY WITH NONUNION AND/OR UNHEALED FRACTURE OF THE STERNUM, DESCRIBED. NO SUBCUTANEOUS MASSES OR ABNORMAL FLUID COLLECTIONS AT THE SITE OF CLINICAL CONCERN. NO ACUTE PULMONARY FINDINGS. Impression dictated by: Jane Shepherd M.D.08/24/2024 1:18 PM Dictation Location: [place] Electronically authenticated by: [id number] Y Date: 08/24/2024 13:18
--- OUTSIDE RECORDS SUMMARY | 2024-08-24 10:17 | XMS_ITS | CCD ---
Author Organization [facility] Care Team Providers Care Castings Drafter Name Role Phone Odell Harrington Unavailable DR ODELL HARRINGTON Admitting Unavailable BALL, DR RODRIGUEZ Attending Unavailable BALL, DR RODRIGUEZ Primary Care Unavailable LAKSHMIPATHY ., TANG Consulting Helen vailable BALL, DR RODRIGUEZ Primary Care Unavailable LAKSHMIPATHY ., TANG Admitting Helen vailable LAKSHMIPATHY ., TAGN Attending Helen vailable LAKSHMIPATHY ., TANG Admitting Helen vailable BALL, DR RODRIGUEZ Primary Care Unavailable LAKSHMIPATHY ., TANG Attending Helen vailable LAKSHMIPATHY ., TANG Consulting Helen vailable JUANY, DR RODRIGUEZ Primary Care Unavailable HALKER ., RAFAELA Admitting Unavailable HALKER ., RAFAELA Attending Unavailable MOUKARBEL, JEREMIAS Attending Unavailable MOUKARBEL, JEREMIAS Consulting Unavailable MOUKARBEL, JEREMIAS Admitting Unavailable BALL, DR RODRIGUEZ Primary Care Unavailable BALL, DR RODRIGUEZ Admitting Unavailable BALL, DR RODRIGUEZ Attending Unavailable BALL, DR RODRIGUEZ Consulting Unavailable BALL, DR RODRIGUEZ Primary Care Unavailable MONETER, DR TARIK Gee Consulting Unavailable BALL, DR RODRIGUEZ Admitting Unavailable BALL, DR RODRIGUEZ Attending Unavailable BALL, DR RODRIGUEZ Consulting Unavailable BALL, DR RODRIGUEZ Primary Care Unavailable SAUK CENTRE, DR JOELLEN Ontiveros Consulting Unavailable MOUKADARLENE, JEREMIAS Consulting Unavailable Magno Pichardo II Unavailable DO Odell Harrington Primary Care Provider [phone] MD Magno Pichardo II Attending Provider DO Odell Harrington Primary Care Provider [phone] MD Magno Pichardo II Attending Provider MD Elijah Mayers Admit Provider MD Elijah Mayers Attending Provider [phone] GLO Berry Other Provider Unavailable GLO Mcmahan Other Provider Unavailable GLO Ha Other Provider Unavailable GLO Bell Other Provider Unavailable GLO Villegas Other Provider Unavailable GLO Kunz Other Provider Unavailable GLO Cardozo Other Provider Unavailable MD Annalisa Gar Other Provider MD Foster Santiago Other Provider Unavailable Dials, BSW Lulú M Other Provider DO Genesis Andre Other Provider [phone] MD Bhupinder San Other Provider DO Ron Guajardo Other Provider MD Gilbert Lanier Other Provider MD Peri Grubbs Other Provider MD Raymond Hilton Other Provider Unavailable Jefe, BSWPepe Gomez Other Provider MD Warren Mera Other Provider MD Flavio Woods Other Provider MD Saud Zuniga Other Provider MD Benjamin Plasencia Other Provider DO Roger Carranza Other Provider MD Ricardo Souza Other Provider MD Allen Andres Other Provider GERRY Earl Other Provider Mario, BSWPepe Castañeda Other Provider Unavailable MD Huy Rosenbaum Other Provider MD Augie Ontiveros Other Provider MD Lc Lima Other Provider MD Mati Alberto Other Provider Unavailable MD Farhan Smith Other Provider DO Rakel Regan Other Provider DO Silverio Irizarry R Other Provider MiniDO Ashley hernándezony Maddy Other Provider CHASITY Holland Other Provider DO Pj Knapp Other Provider MD Paula Ramirez Other Provider CHASITY Moore Other Provider CHASITY Zaragoza Other Provider MD Tushar Cohen Other Provider MD Vidal Akins Other Provider DO Aiden Stoll Other Provider MD Jordy Lima P Other Provider GLO Thakkar Other Provider Unavailable DO Odell Harrington Primary Care Provider MD Magno Pichardo II Attending Provider MD Magno Pichardo II Attending Provider [phone] DO Odell Harrington Primary Care Provider MD Magno Pichardo II Attending Provider Odell Harrington MD Primary Care Provider NBA MARCELO Attending Unavailable NBA MARCELO Referring Unavailable NBA MARCELO Referring Unavailable ANNABELLA PALACIOS Attending Unavailable HIRO HENRY Attending Unavailable HIRO HENRY Attending Unavailable LINDSEY HUANG Attending Unavailable HIRO HENRY Attending Unavailable DO Odell Harrington Primary Care Provider MD Magno Pichardo II Attending Provider Odell Harrington DO Primary Care Provider Magno Pichardo MD Attending Provider Jamal CODY, Ana Other Provider Unavailable Marj CODY, Nuha Other Provider Unavailable Ray RN, Bernie Other Provider Unavailable Joaquina RN, Zina Other Provider Unavailable Cas RN, Carline Other Provider Unavailable Annalisa Gar MD Other Provider Genesis Andre DO Other Provider Bhupinder San MD Other Provider Ron Guajardo DO Other Provider Yolande MENENDEZ, Gilbert Other Provider Peri Grubbs MD Other Provider Roger Luz DO Other Provider Yobani MENENDEZ, Raymond Other Provider Unavailable Patricia Mayberry APRN Other Provider [phone] Samaria MENENDEZ, Warren Other Provider [phone] Flavio Woods MD Other Provider Saud Zuniga MD Other Provider Benjamin Plasencia MD Other Provider Roger Carranza DO Other Provider [phone] Ricardo Souza MD Other Provider Allen Andres MD Other Provider Rajat SEWING MACHINE OPERATOR PAPER BAGS-C, Lashonda Connolly Other Provider Mario GASPAR, Sloane Castañeda Other Provider Unavailable Huy Rosenbaum MD Other Provider Augie Ontiveros MD Other Provider Lc Lima MD Other Provider Remy MENENDEZ, Mati Other Provider Unavailable Farhan Smith MD Other Provider Rakel Regan DO Other Provider Silverio Irizarry DO Other Provider Carol Holland APRN Other Provider Pj Knapp DO Other Provider James MENENDEZ, Paula Castañeda Other Provider Antonella Moore APRN Other Provider Chetna Zaragoza APRN Other Provider Tushar Cohen MD Other Provider Vidal Akins MD Other Provider Stoll DOAiden T Other Provider Gerardo GAOLucas Other Provider Clarence MENENDEZ, Jordy Petersen Other Provider Ganesh Moreno MD Other Provider Joceline García APRN Other Provider Chandler MENENDEZ, Kraig Other Provider Vitor Everett MD Other Provider Dilip Neal MD Other Provider Raymond Lr MD Other Provider Javi Redd MD Other Provider Aisha Sidhu APRN Other Provider Shimon Patel APRN Other Provider Martina Thakkar RN Other Provider Unavailable Dilip Laird MD Other Provider ODILIA MCCALLUM Attending Unavailable JEREMIAS MCGUIRE Attending Unavailable Saud Znuiga MD Other Provider Unavailable Dilip Laird MD Admit Provider Dilip Laird MD Attending Provider [phone] Dilip Laird Admitting Unavailable Ana Berry Consulting Unavailable Dilip Laird Attending Unavailable Odell Harrington Primary Care Unavailable Nuha Mcmahan Consulting Unavailable Bernie Bell Consulting Unavailable Zina Kunz Consulting Unavailable Carline Cardozo Consulting Unavailable Annalisa Gar Consulting Unavailable Genesis Andre Consulting Unavailable Bhupinder San Consulting Unavailable Ron Guajardo Consulting UnavailGilbert Redman Consulting Unavailable Peri Grubbs Consulting Unavailable Roger Luz Consulting Unavailable Raymond Hilton Consulting Unavailable Patricia Mayberry Consulting UnavailWarren Anguiano Consulting Unavailable Flavio Woods Consulting Unavailable Saud Zuniga Consulting Unavailable Benjamin Plasencia Consulting Unavailable Roger Carranza Consulting Unavailable Ricardo Souza Consulting Unavailable Allen Andres Consulting Unavailable Lashonda Earl Consulting Unavailable Sloane Martin Consulting Unavailable Huy Rosenbaum Consulting Unavailab Augie Hong Consulting Unavailable Lc Lima Consulting Unavailable Mati Alberto Consulting Unavailable Farhan Smith Consulting Unavailable Rakel Regan Consulting Unavailable Silverio Irizarry Consulting Unavailable Carol Holland Consulting Unavailable Pj Knapp Consulting Unavailable Paula Ramirez Consulting Unavailable Antonella Moore Consulting Unavailable Chetna Zaragoza Consulting Unavailable Tushar Cohen Consulting Unavailable Vidal Akins Consulting Unavailable Aiden Stoll Consulting Unavailable Lucas Carrillo Consulting Unavailable Jordy Lima Consulting Unavailable Ganesh Moreno Consulting Unava Joceline Huang Consulting Unavailable Kraig Arteaga Consulting Unavailable Vitor Everett Consulting Unavailable Dilip Neal Consulting Unavailable Raymond Lr Consulting Unavailable Javi Redd Consulting Unavailable Aisha Sidhu Consulting Unavailable BolShimon Mendosa Consulting Unavaila Martina Mcdonald Consulting Unavailable Elijah Mayers Attending Unavaila Ana Collins Consulting Unavailable Elijah Mayers Admitting Unavaila Odell Sorensen Primary Care Unavailable Nuha Mcmahan Consulting Unavailable Anne Ha Consulting Unavailable Bernie Bell Consulting Unavailable Cecelia Villegas Consulting Unavailable Zina Kunz Consulting Unavailable Carline Cardozo Consulting Unavailable Annalisa Gar Consulting Unavailable Foster Santiago Consulting Unavailable Lulú Garcia Consulting Unavailable Genesis Andre Consulting Unavailable Bhupinder San Consulting Unavailable Ron Guajardo Consulting UnavailGilbert Redman Consulting Unavailable Semaskiene, Peri Consulting Unavailable Raymond Hilton Consulting Unavailable Patricia Mayberry Consulting UnavailWarren Anguiano Consulting Unavailable Flavio Woods Consulting Unavailable Saud Zuniga Consulting Unavailable Benjamin Plasencia Consulting Unavailable Roger Carranza Consulting Unavailable Ricardo [...] Moore Consulting Unavailable Chetna Zaragoza Consulting Unavailable Tushar Cohen Consulting Unavailable Vidal Akins Consulting Unavailable Aiden Stoll Consulting Unavailable Jordy Lima Consulting Unavailable Martina Thakkar Consulting Unavailable [facility] Unavailable Marino II, Magno M Admitting Unavailabl e [place] II, Magno M Attending Unavailabl e Marino II, Magno M Admitting Unavailabl e [place] II, Magno M Attending Unavailabl e [facility] Care Unavailable [place] II, Magno M Admitting Unavailabl e Marino II, Magno M Attending Unavailabl e [facility] Care Unavailable [place] II, Magno M Admitting Unavailabl e Marino II, Magno M Attending Unavailabl e [facility] Unavailable Marino II, Magno M Admitting Unavailabl e [place] II, Magno M Attending Unavailabl e [facility] Care Unavailable Ana Berry Consulting Unavailable Marino II, Magno M Admitting Unavailabl e Marino II, Magno M Attending Unavailabl e [facility] Unavailable Nuha Mcmahan Consulting Unavailable Bernie Bell Consulting Unavailable Zina Kunz Consulting Unavailable Carline Cardozo Consulting Unavailable Annalisa Gar Consulting Unavailable Genesis Andre Consulting Unavailable Bhupinder San Consulting Unavailable Ron Guajardo Consulting Unavailabl Gilbert Perdue Consulting Unavailable Semaskiene, Peri Consulting Unavailable Roger Luz Consulting Unavailable Raymond Hilton Consulting Unavailable Patricia Mayberry Consulting UnavailWarren Anguiano Consulting Unavailable Flavio Woods Consulting Unavailable Saud Zuniga Consulting Unavailable Benjamin Plasencia Consulting Unavailable Roger Carranza Consulting Unavailable Ricardo Souza Consulting Unavailable Allen Andres Consulting Unavailable Lashonda Earl Consulting Unavailable Sloane Martin Consulting Unavailable Huy Rosenbaum Consulting Unavailab Augie Hong Consulting Unavailable Lc Lima Consulting Unavailable Mati Alberto Consulting Unavailable Farhan Smith Consulting Unavailable Rakel Regan Consulting Unavailable Silverio Irizarry Consulting Unavailable Carol Holland Consulting Unavailable Pj Knapp Consulting Unavailable Paula Ramirez Consulting Unavailable Antonella Moore Consulting Unavailable Chetna Zaragoza Consulting Unavailable Tushar Cohen Consulting Unavailable Vidal Akins Consulting Unavailable Aiden Stoll Consulting Unavailable Lucas Carrillo Consulting Unavailable Jordy Lima Consulting Unavailable Ganesh Moreno Consulting Unava taylerable Joceline García Consulting Unavailable Kraig Arteaga Consulting Unavailable Vitor Everett Consulting Unavailable Dilip Neal Consulting Unavailable Raymond Lr Consulting Unavailable Javi Redd Consulting Unavailable Aisha Sidhu Consulting Unavailable Shimon Patel Consulting Unavaila Martina Mcdonald Consulting Unavailable Dilip Laird Consulting Unavailable Magno Pichardo II Attending Unavailabl e [place] II, Magno Castañeda Admitting Unavailabl e [facility] Unavailable [place] II, Magno Castañeda Admitting Unavailabl e [place] II, Magno Castañeda Attending Unavailabl e [facility] Unavailable Marino GOLD, Magno Castañeda Admitting Unavailabl e [place] II, Magno Castañeda Attending Unavailabl e [facility] Care Unavailable Ana Berry Consulting Unavailable Marino GOLD, Magno Castañeda Admitting Unavailabl e [place] II, Magno Castañeda Attending Unavailabl e [facility] Care Unavailable Nuha Mcmahan Consulting Unavailable Anne Ha Consulting Unavailable Bernie Bell Consulting Unavailable Cecelia Villegas Consulting Unavailable Zina Kunz Consulting Unavailable Carline Cardozo Consulting Unavailable Annalisa Gar Consulting Unavailable Foster Santiago Consulting Unavailable Lulú Garcia Consulting Unavailable Genesis Andre Consulting Unavailable Bhupinder San Consulting Unavailable Ron Guajardo Consulting UnavailGilbert Redman Consulting Unavailable Peri Grubbs Consulting Unavailable Raymond Hilton Consulting Unavailable Patricia Mayberry Consulting UnavailWarren Anguiano Consulting Unavailable Flavio Woods Consulting Unavailable Saud Zuniga Consulting Unavailable Benjamin Plasencia Consulting Unavailable Roger Carranza Consulting Unavailable Ricardo Souza Consulting Unavailable Allen Andres Consulting Unavailable Lashonda Earl Consulting Unavailable Sloane Martin Consulting Unavailable Huy Rosenbaum Consulting Unavailab Augie Hong Consulting Unavailable Lc Lima Consulting Unavailable Mati Alberto Consulting Unavailable Farhan Smith Consulting Unavailable Rakel Regan Consulting Unavailable Silverio Irizarry Consulting Unavailable MiniJean-Pierre hernández Consulting Unavailable Obika, Carol Consulting Unavailable Pj Knapp Consulting Unavailable Daromar, Obaydah M Consulting Unavailable Antonella Moore Consulting Unavailable Chetna Zaragoza Consulting Unavailable Alahmad, Alaa Consulting Unavailable Vidal Akins Consulting Unavailable Aiden Stoll Consulting Unavailable Lucas Carrillo Consulting Unavailable Jordy Lima Consulting Unavailable Martina Thakkar Consulting Unavailable Dilip Laird Consulting Unavailable Odell Harrington DO Primary Care Provider Magno Pichardo MD Attending Provider Allergies Allergy Classification Reported Allergen(s) Allergy Type Date of Onset Reaction(s) Facility (17 sources) Acetaminophen / HYDROcodone; Translations: [Vicodin] Drug Allergy 03-04-20 12 Unknown [facility] Repository (15 sources) Acetaminophen / oxyCODONE Drug Allergy Unknown [employer] Other (15 sources) Ciprofloxacin Drug Allergy Unknown [facility] [employer] [facility] Other (16 sources) Rocuronium; Translations: [ROCURONIUM] Drug Allergy 06-17-20 14 Unknown [facility] Repository (15 sources) Sulfamethoxazole / Trimethoprim Drug Allergy Unknown [facility] Other (2 sources) Acetaminophen / oxyCODONE Drug Allergy 03-04-20 12 [facility] Repository (2 sources) Rocuronium Drug Allergy 03-17-20 12 [facility] Repository (12 sources) Vicodin *ANALGESICS - OPIOID* Propensity to adverse reactions Unknown [employer] Other (15 sources) Acetaminophen Drug Allergy 08-20-19 24 GI intolerance [facility] (19 sources) HYDROcodone Drug Allergy 01-02-20 23 Unknown [facility] (19 sources) oxyCODONE Drug Allergy 08-20-19 24 Unknown, GI intolerance [facility] (15 sources) Rocuronium Drug Allergy 08-20-19 24 breathing difficulty [facility] (19 sources) Sulfamethoxazole Drug Allergy 08-20-19 24 Unknown [facility] (19 sources) Trimethoprim Drug Allergy 08-20-19 24 Unknown [facility] (5 sources) Acetaminophen / oxyCODONE; Translations: [OXYCODONE-ACETAMIN OPHEN] Drug Allergy 06-17-20 14 Unknown [facility] (4 sources) Rocuronium Drug Allergy 06-17-20 14 Shortness of breath, Unknown [facility] (1 source) Acetaminophen / HYDROcodone; Translations: [HYDROCODONE-ACETAM INOPHEN] Drug Allergy 06-17-20 14 [facility] Repository Medications Current Medications Medication Drug Class(es) Dates Sig (Normalized) Sig (Original) acetaminophen 325 mg oral tablet (20 sources) Start: 08-02-2024 take 2 tablets by mouth every six hours as needed for pain Acetaminophen (Tylenol) 325 mg Tablet Active 650 MG PO Q6H as needed for Pain 0 August 02, 2024 12:00am Start: 07-08-2024 End: 08-02-2024 Acetaminophen (Arthritis Yong n Reliever) 650 mg tablet extended release Discontinued 1300 MG PO Bedtime July 08, 2024 12:00am August 02, 2024 9:09am On Hold: Resume on 08/19/24. Start: 09-02-2023 End: 08-02-2024 take 2 tablets by mouth every eight hours Acetaminophen 500 mg tablet Discontinued 1000 MG PO Q8H 180 30 July 08, 2024 12:00am August 02, 2024 9:09am DO NOT RECONCILE UNTIL DOS:07/19/24. MED TO BED Start: 09-02-2023 take 1000 mg by mout h every eight hours Acetaminophen Active 1000 MG PO Q8H 0 September 02, 2023 12:00am Start: 08-20-2023 End: 08-20-2023 take 2 tablets by mouth every eight hours Acetaminophen 500 mg tablet Discontinued 1000 MG PO Q8H 180 August 20, 2023 12:00am August 20, 2023 2:21pm DOT NOT RECONCILE UNTIL DOS:09/01/2023 MED TO BED Start: 08-20-2023 End: 09-02-2023 take 2 tablets by mouth every twelve hours as needed for pain Acetaminophen 650 mg tablet extended release Discontinued 1300 MG PO Every 12 hours as needed for pain, mild August 20, 2023 12:00am September 02, 2023 2:01pm Start: 08-20-2023 End: 08-20-2023 take 1000 mg by mouth every eight hours Acetaminophen Discontinued 1000 MG PO Q8H 180 August 20, 2023 12:00am August 20, 2023 2:21pm DOT NOT RECONCILE UNTIL DOS:09/01/2023 MED TO BED Start: 08-20-2023 End: 09-02-2023 take 1300 mg by mouth every twelve hours Acetaminophen Discontinued 1300 MG PO Every 12 hours August 20, 2023 12:00am September 02, 2023 2:01pm take 1 capsule by mo uth every six hours Acetaminophen 500 MG 1 capsule as needed Orally every 6 hrs Active ALPRAZolam 0.25 mg oral tablet (20 sources) Benzodiazepine Start: 06-08-2024 End: 07-08-2024 take 1 tablet by mouth once daily as needed for anxiety Alprazolam 0.25 mg tablet Active 0.25 MG PO Daily as needed for anxiety July 08, 2024 12:00am Start: 09-15-2023 End: 09-19-2023 take 1 tablet by mouth every six hours as needed for anxiety Alprazolam 0.25 mg Tablet Discontinued 0.25 MG PO Q6H as needed for Anxiety 0 September 14, 2023 11:00pm September 19, 2023 10:43am Start: 08-25-2023 End: 09-15-2023 take 1 tablet by mouth twice daily Alprazolam 0.25 mg tablet Discontinued 0.25 MG PO Twice daily August 25, 2023 12:00am September 15, 2023 8:24am take 1 tablet by christopher th every [...] Platelet Aggregation Inhibitor, Nonsteroidal Anti-inflammatory Drug Start: 07-08-2024 take 1 tablet by mouth once daily Aspirin 81 mg Tablet,Delayed Release (Dr/Ec) Active 81 MG PO Daily July 08, 2024 12:00am On Hold: Resume on 08/25/24. Start: 08-20-2023 End: 09-15-2023 take 1 tablet by mouth once daily Aspirin (Adult Aspirin Regimen) 81 mg tablet,delayed release (DR/EC) Discontinued 81 MG PO Daily August 20, 2023 12:00am September 15, 2023 8:24am Start: 08-20-2023 End: 08-02-2024 take 1 tablet by mouth twice daily Aspirin 81 mg tablet,delayed release (DR/EC) Discontinued 81 MG PO Twice daily 70 35 July 08, 2024 12:00am August 02, 2024 9:09am DO NOT RECONCILE UNTIL DOS:07/19/24. MED TO BED take 1 tablet by christopher th every twenty-four hours Aspirin 81 81 MG 1 tablet Orally Once a day Active take 1 tablet by christopher th once daily Aspirin 81 81 MG 1 tablet Orally Once a day Active atorvastatin 20 mg oral tablet (20 sources) HMG-CoA Reductase Inhibitor Start: 08-20-2023 take 10 mg by mouth once daily at bedtime Atorvastatin 20 mg tablet Active 10 MG PO Daily at bedtime August 20, 2023 12:00am Start: 08-20-2023 take 10 mg by mouth once daily at bedtime Atorvastatin Active 10 MG PO Daily at bedtime August 20, 2023 12:00am Start: 07-18-2022 atorvastatin ( Lipitor) 20 MG tablet Take 1 tablet by mouth in the morning. Takes / tab. 07/18/2022 Active Atorvastatin Randy cium 10 MG 1 Orally Once a day Active Calcium-Vitamin D-Vitamin K (Calcium+Menaq7) 600-1000-90 MG-UNT-MCG tablet (4 sources) Calcium-Vitamin D-Vitamin K (Calcium+Menaq7) 600-1000-90 MG-UNT-MCG tablet 1 (one) time each day at the same time. Active cefuroxime 250 mg oral tablet (4 sources) Cephalosporin Antibacterial cefuroxime (Ceftin) 250 MG tablet Active cholecalciferol 0.01 mg oral capsule (20 sources) Vitamin D Start: take 1 capsule by mouth once daily Cholecalciferol (Vitamin D3) (Vitamin D3) 10 mcg (400 unit) capsule Active 800 UNIT PO Daily July 08, 2024 12:00am Start: 07-08-2024 take 1 capsule by mo [facility] once daily Cholecalciferol (Vitamin D3) (Vitamin D3) 10 mcg (400 unit) capsule Active 800 UNIT PO Daily July 08, 2024 12:00am Start: 08-20-2023 End: 06-08-2024 take 1 capsule by mouth once daily Cholecalciferol (Vitamin D3) 50 mcg (2,000 unit) capsule Discontinued 50 MCG PO Daily September 15, 2023 8:23am June 08, 2024 2:22pm take 1 tablet by christopher in the morning cholecalciferol (Vitamin D-3) 25 MCG (1000 UT) tablet Take 1 tablet by mouth in the morning. Active diphenhydrAMINE hydrochloride 25 mg oral tablet (20 sources) Histamine-1 Receptor Antagonist Start: 07-08-2024 take 1 tablet by mouth once daily in the morning Diphenhydramine Hcl (Allergy (Diphenhydramine)) 25 mg tablet Active 25 MG PO Every morning July 08, 2024 12:00am Start: 08-20-2023 End: 08-25-2023 take 1 capsule by mouth once daily at bedtime as needed Diphenhydramine Hcl (Allergy (Diphenhydramine)) 25 mg capsule Discontinued 25 MG PO Daily at bedtime as needed for allergy symptoms August 20, 2023 12:00am August 25, 2023 10:55am docusate sodium 100 mg oral capsule (2 sources) take 1 capsule by mouth every twenty-four hours Stool Softener 100 MG 1 capsule as needed Orally Once a day Active ezetimibe 10 mg oral tablet (10 sources) Dietary Cholesterol Absorption Inhibitor Start: 4 take 1 tablet by mouth at bedtime Ezetimibe (Zetia) 10 mg tablet Active 10 MG PO Bedtime November 18, 2023 11:00pm losartan potassium 25 mg oral tablet (20 sources) Angiotensin 2 Receptor Alexandre Start: 4 take 1 tablet by mouth once daily in the morning Losartan 25 mg tablet Active 25 MG PO Every morning November 18, 2023 11:00pm Start: 11-19-2023 Losartan Activ e MG PO November 18, 2023 11:00pm Start: 11-19-2023 Losartan Activ e MG PO November 19, 2023 12:00am Start: 02-22-2022 End: 09-19-2023 take 1 tablet by mouth once daily in the morning Losartan 25 mg tablet Discontinued 25 MG PO Every morning August 20, 2023 12:00am September 15, 2023 8:23am 24 hr metoprolol succinate 25 mg extended release oral tablet (20 sources) beta-Adrenergic Alexandre Start: 08-20-2023 End: 09-15-2023 take 1 tablet by mouth once daily in the evening Metoprolol Succinate 25 mg tablet extended release 24 hr Active 25 MG PO Every evening September 15, 2023 8:23am Start: 07-21-2022 take 1 tablet by christopher th every twenty-four hours in the morning metoprolol succinate XL (Toprol-XL) 50 MG 24 hr tablet Take 50 mg by mouth in the morning. 07/21/2022 Active take 0.5 tablet by m outh once daily Metoprolol Succinate ER 50 MG [...] omeprazole 20 mg delayed release oral capsule (20 sources) Proton Pump Inhibitor Start: 09-19-2023 take 1 capsule by mouth once daily Omeprazole 20 mg capsule,delayed release(DR/EC) Active 20 MG PO Daily September 18, 2023 11:00pm Start: 08-20-2023 End: 08-25-2023 take 1 capsule by mouth once daily in the morning Omeprazole 20 mg capsule,delayed release(DR/EC) Discontinued 20 MG PO Every morning August 20, 2023 12:00am August 25, 2023 10:56am propylene glycol 6 mg/ml ophthalmic solution (20 sources) Start: 07-08-2024 Propylene Glyc ol (Systane Balance) 0.6 % drops Active 1 DROPS EYE-BOTH Daily as needed for dry eye(s) July 08, 2024 12:00am Start: 08-20-2023 End: 08-25-2023 Propylene Glycol (Systane Ba linda) 0.6 % drops Discontinued 1 DROPS EYE-BOTH Daily as needed for dry eye(s) August 20, 2023 12:00am August 25, 2023 10:56am vitamin e 450 mg oral capsule (20 sources) Start: 07-08-2024 take 450 mg by mouth once daily vitamin E Active 450 MG PO Daily July 08, 2024 12:00am Start: 08-20-2023 End: 07-08-2024 take 1 capsule by mouth once daily Vitamin E 268 mg (400 unit) capsule Discontinued 268 MG PO Daily August 20, 2023 12:00am July 08, 2024 9:45am alpha tocopherol (Vitamin E) 400 units capsule 1 capsule 1 (one) time each day at the same time. Active Vitamin E 100 UNIT (15 sources) Vitamin E 100 UN IT as directed Orally Active Completed/Discontinued Medications Medication Drug Class(es) Dates Sig (Normalized) Sig (Original) ascorbic acid 1000 mg extended release oral tablet (15 sources) Vitamin C Start: 08-20-2023 End: 08-20-2023 take 1 tablet by mouth every twelve hours Ascorbic Acid (Vitamin C) 1,000 mg tablet extended release Discontinued 1000 MG PO Every 12 hours August 20, 2023 12:00am August 20, 2023 2:21pm azithromycin 250 mg oral tablet (20 sources) Macrolide Antimicrobial Start: 06-24-2024 End: 07-08-2024 Azithromycin 250 mg tablet Discontinued 250 MG PO .COMPLEX 6 June 24, 2024 12:00am July 08, 2024 8:10am 2 tabs on first day followed by 1 tab on days 2-5 Start: 09-19-2023 End: 06-06-2024 Azithromycin 250 mg tablet D iscontinued 250 MG PO As Directed 6 March 12, 2024 1:35pm June 06, 2024 4:02pm Start: 08-25-2023 End: 09-01-2023 Azithromycin 250 mg tablet D iscontinued 250 MG PO As Directed 12 02August 25, 2023 12:00am September 01, 2023 9:32am Start: 10-08-2022 Azithromycin 2 50 MG as directed Orally daily for 5 days Apr, Not-Taking/PRN cefadroxil 500 mg oral capsule (20 sources) Cephalosporin Antibacterial Start: 07-08-2024 End: 08-02-2024 take 1 capsule by mouth every twelve hours Cefadroxil 500 mg capsule Discontinued 500 MG PO Q12H 14 July 08, 2024 12:00am August 02, 2024 9:09am DO NOT RECONCILE UNTIL DOS:07/19/24. MED TO BED Start: 09-02-2023 End: 09-15-2023 take 1 capsule by mouth twice daily Cefadroxil 500 mg Capsule Discontinued 500 MG PO Twice daily 0 September 02, 2023 12:00am September 15, 2023 8:24am Start: 08-20-2023 End: 09-15-2023 take 1 capsule by mouth every twelve hours Cefadroxil 500 mg capsule Discontinued 500 MG PO Q12H 14 August 20, 2023 12:00am September 15, 2023 8:24am DOT NOT RECONCILE UNTIL DOS:09/01/2023 MED TO BED celecoxib 200 mg oral capsule (20 sources) Nonsteroidal Anti-inflammatory Drug Start: 07-16-2024 End: 08-02-2024 take 1 capsule by mouth once daily Celecoxib 200 mg capsule Discontinued 0 .ROUTE .COMPLEX July 16, 2024 2:03pm August 02, 2024 9:09am TAKE 1 CAPSULE BY MOUTH EVERY DAY Start: 01-12-2024 End: 07-16-2024 take 1 capsule by mouth once daily Celecoxib 200 mg capsule Discontinued 200 MG PO Daily January 12, 2024 7:33am July 16, 2024 2:03pm Start: 12-19-2023 End: 01-12-2024 take 1 capsule by mouth once daily Celecoxib (Celebrex) 100 mg capsule Discontinued 100 MG PO Daily December 18, 2023 11:00pm January 12, 2024 7:52am ciclopirox 0.0077 mg/mg topi randy gel (14 sources) Start: 11-19-2023 End: 06-08-2024 Ciclopirox 0.77 % gel Discontinued TOPICAL November 18, 2023 11:00pm June 08, 2024 2:22pm Start: 11-19-2023 Ciclopirox Act piotr TOPICAL November 18, 2023 11:00pm Start: 10-23-2023 Ciclopirox 0.7 7 % gel Indications: Onychomycosis Apply thin layer to affected area once a day, 30 day supply 45 g 11 10/23/2023 Active diclofenac sodium 0.01 mg/mg topical gel (20 sources) Nonsteroidal Anti-inflammatory Drug Start: 08-25-2023 End: 09-19-2023 apply 2 g topically four times daily Diclofenac Sodium 1 % gel Discontinued 2 GM TOPICAL Four times daily 100 September 15, 2023 8:23am September 19, 2023 10:43am apply to single elbow, wrist or hand; for hand includes palm/fingers/back of hand Start: 08-25-2023 End: 09-19-2023 apply 2 g topically four times daily Diclofenac Sodium Discontinued 2 GM TOPICAL Four times daily 100 September 15, 2023 8:23am September 19, 2023 10:43am apply to single elbow, wrist or hand; for hand includes palm/fingers/back of hand Voltaren 1 % as directed Externally Active docusate sodium 50 mg / sennosides, chcf 8.6 mg oral tablet (20 sources) Start: 07-08-2024 End: 08-02-2024 take 2 tablets by mouth once daily Sennosides-Docusate Sodium (Senokot-S) 8.6-50 mg tablet Discontinued 2 TAB PO daily 60 30 July 08, 2024 12:00am August 02, 2024 9:09am DO NOT RECONCILE UNTIL DOS:07/19/24. MED TO BED Start: 08-20-2023 End: 09-15-2023 take 2 tablets by mouth once daily Sennosides-Docusate Sodium 8.6-50 mg Tablet Discontinued 2 TAB PO Daily 0 September 02, 2023 12:00am September 15, 2023 8:24am DULoxetine 20 mg delayed release oral capsule (5 sources) Serotonin and Norepinephrine Reuptake Inhibitor Start: 08-02-2024 End: 08-09-2024 take 1 capsule by mouth once daily Duloxetine 20 mg Capsule,Delayed Release(Dr/Ec) Discontinued 20 MG PO Daily 90 August 02, 2024 12:00am August 09, 2024 2:57pm take 1 capsule by [facility] every twenty-four hours DULoxetine HCl 30 MG 1 capsule Orally Once a day Active ergocalciferol 1.25 mg oral capsule (7 sources) Provitamin D2 Compound Start: 05-19-2024 End: 07-08-2024 take 1 capsule by mouth every week Ergocalciferol (Vitamin D2) 1,250 mcg (50,000 unit) capsule Discontinued 1250 MCG PO Q7D 8 60 May 19, 2024 12:00am July 08, 2024 9:41am fluocinonide 0.5 mg/ml topical solution (14 sources) Corticosteroid Start: 11-19-2023 End: 06-08-2024 Fluocinonide 0.05 % solution Discontinued TOPICAL November 18, 2023 11:00pm June 08, 2024 2:23pm Start: 11-19-2023 Fluocinonide A ctive TOPICAL November 18, 2023 11:00pm Start: 10-23-2023 fluocinonide ( Lidex) 0.05 % external solution Indications: Other seborrheic dermatitis Apply to affected areas on the scalp, up to twice a day when flared, 30 day supply 60 mL 11 10/23/2023 Active hydrocortisone 10 mg/ml topical cream (8 sources) Corticosteroid Start: 03-12-2024 End: 06-08-2024 Hydrocortisone (Anti-Itch (Hc)) 1 % cream Discontinued 1 APPLIC TOPICAL Twice daily as needed March 11, 2024 11:00pm June 08, 2024 2:23pm loratadine 10 mg oral tablet (20 sources) Start: 09-15-2023 End: 09-19-2023 take 1 tablet by mouth once daily in the morning Loratadine 10 mg Tablet Discontinued 10 MG PO Every morning September 14, 2023 11:00pm September 19, 2023 10:43am Yn-Zbb-Zzzqz-Calcium Carb-K1 (Women's 50 Plus Multivitamin) 400 mcg-500 mg calcium-20 mcg tablet (15 sources) Start: 08-20-2023 End: 06-08-2024 take 1 tablet by mouth once daily Oj-Uyq-Imqyh-Calcium Carb-K1 (Women's 50 Plus Multivitamin) 400 mcg-500 mg calcium-20 mcg tablet Discontinued 1 TAB PO Daily August 20, 2023 12:00am June 08, 2024 2:23pm Start: 08-20-2023 take 1 tablet by christopher th once daily Xh-Ofu-Zkhmc-Calcium Carb-K1 (Women's 50 Plus Multivitamin) 400 mcg-500 mg calcium-20 mcg tablet Active 1 TAB PO Daily August 20, 2023 1:00am Start: 08-20-2023 take 1 tablet by christopher th once daily Fe-Duh-Qifem-Calcium Carb-K1 (Women's 50 Plus Multivitamin) 400 mcg-500 mg calcium-20 mcg tablet Active 1 TAB PO Daily August 20, 2023 12:00am Nirmatrelvir-Ritonavir (Paxlovid) 300 mg (150 mg x 2)-100 mg tablets,dose pack (8 sources) Start: 04-15-2024 End: 06-06-2024 Nirmatrelvir-Ritonavir (Paxlovid) 300 mg (150 mg x 2)-100 mg tablets,dose pack Discontinued 0 PO .COMPLEX April 14, 2024 11:00pm June 06, 2024 4:02pm take TWO 150 mg tablets of nirmatrelvir with ONE 100 mg tablet of ritonavir twice daily for 5 days PO Start: 04-15-2024 Nirmatrelvir-R itonavir (Paxlovid) 300 mg (150 mg x 2)-100 mg tablets,dose pack Active 0 PO .COMPLEX April 14, 2024 11:00pm take TWO 150 mg tablets of nirmatrelvir with ONE 100 mg tablet of ritonavir twice daily for 5 days PO ondansetron 4 mg oral tablet (20 sources) Serotonin-3 Receptor Antagonist Start: 07-08-2024 End: 08-02-2024 take 1 tablet by mouth every eight hours as needed for nausea Ondansetron Hcl 4 mg tablet Discontinued 4 MG PO Q8H as needed for Nausea July 08, 2024 12:00am August 02, 2024 9:09am DO NOT RECONCILE UNTIL DOS:07/19/24. MED TO BED Start: 08-20-2023 End: 09-15-2023 take 1 tablet by mouth every eight hours as needed for nausea Ondansetron Hcl 4 mg tablet Discontinued 4 MG PO Q8H as needed for Nausea August 20, 2023 12:00am September 15, 2023 8:24am DOT NOT RECONCILE UNTIL DOS:09/01/2023 MED TO BED oxyCODONE hydrochloride 5 mg oral tablet (20 sources) Opioid Agonist Start: 07-08-2024 End: 08-02-2024 take 1 tablet by mouth every four hours as needed for pain Oxycodone 5 mg tablet Discontinued 5 MG PO Q4H as needed for Pain 40 July 08, 2024 August 02, 2024 9:09am DO NOT RECONCILE UNTIL DOS:07/19/24. MED TO BED Start: 08-20-2023 End: 09-19-2023 take 1 tablet by mouth every four hours as needed for pain Oxycodone 5 mg Tablet Discontinued 5 MG PO Q4H as needed for Pain Scale 6 - 10 35 7 September 15, 2023 September 19, 2023 10:44am pantoprazole 40 mg delayed release oral tablet (12 sources) Proton Pump Inhibitor Start: 09-15-2023 End: 09-19-2023 take 1 tablet by mouth once daily Pantoprazole 40 mg Tablet,Delayed Release (Dr/Ec) Discontinued 40 MG PO Daily 30 September 14, 2023 11:00pm September 19, 2023 10:44am polyethylene glycol 3350 90710 mg powder for oral solution (20 sources) Osmotic Laxative Start: 07-08-2024 End: 07-08-2024 Polyethylene Glycol 3350 (Miralax) 17 gram/dose powder Discontinued 17 GM PO daily 7 July 08, 2024 12:00am July 08, 2024 9:45am 1 packed mixed with 8 ounces of fluid. Start: 08-20-2023 End: 09-15-2023 Polyethylene Glycol 3350 (Mi ralax) 17 gram/dose powder Discontinued 17 GM PO daily 7 August 20, 2023 12:00am September 15, 2023 8:24am 1 packed mixed with 8 ounces of fluid. DOT NOT RECONCILE UNTIL DOS:09/01/2023 MED TO BED predniSONE 10 mg oral tablet (20 sources) Start: 07-08-2024 End: 08-02-2024 take 1 tablet by mouth once daily Prednisone 10 mg tablet Discontinued 10 MG PO daily 10 July 08, 2024 12:00am August 02, 2024 9:09am DO NOT RECONCILE UNTIL DOS:07/19/24. MED TO BED Start: 09-15-2023 End: 12-19-2023 take 3 tablets by mouth once daily Prednisone 10 mg Tablet Discontinued 30 MG PO Daily September 15, 2023 8:23am December 19, 2023 1:42pm Start: 09-15-2023 End: 12-19-2023 take 30 mg by mouth once daily Prednisone Discontinued 30 MG PO Daily September 15, 2023 8:23am December 19, 2023 1:42pm Start: 08-20-2023 End: 09-15-2023 take 1 tablet by mouth once daily Prednisone 10 mg Tablet Discontinued 10 MG PO Daily September 02, 2023 12:00am September 15, 2023 8:23am traMADol hydrochloride 50 mg oral tablet (20 sources) Opioid Agonist Start: 07-08-2024 End: 08-02-2024 take 1 tablet by mouth every six hours as needed for pain Tramadol 50 mg tablet Discontinued 50 MG PO q6h as needed for Pain 28 July 08, 2024 12:00am August 02, 2024 9:09am DO NOT RECONCILE UNTIL DOS:07/19/24. MED TO BED Start: 08-20-2023 End: 09-15-2023 take 1 tablet by mouth every six hours as needed for pain Tramadol 50 mg Tablet Discontinued 50 MG PO Q6H as needed for Pain Scale 1 - 5 0 September 02, 2023 12:00am September 15, 2023 8:24am Start: 05-20-2023 take 1 tablet by christopher [...] as needed for 14 days Dec, Active zolpidem tartrate 10 mg oral tablet (20 sources) gamma-Aminobutyric Acid-ergic Agonist Start: 04-16-2023 End: 06-08-2024 take 1 tablet by mouth once daily at bedtime Zolpidem 10 mg tablet Discontinued 10 MG PO Daily at bedtime August 20, 2023 12:00am October 27, 2023 9:11pm Start: 10-01-2022 Zolpidem Tartr ate 10 MG TAKE 1 TABLET BY MOTH AT BEDTIME NEEDED FOR INSOMNIA for 90 Sep, Active Problems Active Problems Problem Classification Problem Date Documented Date Episodic/Chronic Acquired foot deformities (1 source) Toe joint rigid; Translations: [Hallux rigidus, right foot] 04-15-2024 Chronic Acquired foot deformities (1 source) Hallux valgus (acquired), left foot; Translations: [Hallux valgus (acquired)] 04-15-2024 Chronic Acute bronchitis (17 sources) Acute infective bronchitis; Translations: [Acute bronchitis due to other specified organisms] Episodic Acute posthemorrhagic anemia (3 sources) Acute posthemorrhagic anemia; Translations: [Acute posthemorrhagic anemia] 09-19-2023 Episodic Administrative/socia l admission (19 sources) Other reduced mobility; Translations: [Impaired mobility and activities of daily living] Onset: 5 09-03-2023 Episodic Allergic reactions (12 sources) Atopic dermatitis; Translations: [Atopic dermatitis, unspecified] Chronic Anxiety disorders (20 sources) Generalized anxiety disorder; Translations: [Generalized anxiety disorder] Onset: 03-05-202 4 Chronic Cardiac dysrhythmias (20 sources) Paroxysmal atrial fibrillation; Translations: [Paroxysmal atrial fibrillation] Onset: 2 Chronic Cataract (5 sources) After-cataract of bilateral eyes; Translations: [Other secondary cataract, bilateral] Onset: 3 01-01-2023 Chronic Complications of surgical procedures or medical care (6 sources) Postoperative hematoma formation; Translations: [Hematoma complicating a procedure] 07-21-2024 Episodic Congestive heart failure; nonhypertensive (2 sources) Chronic diastolic (congestive) heart failure; Translations: [Chronic diastolic (congestive) heart failure] Onset: 2 Chronic Coronary atherosclerosis and other heart disease (20 sources) Coronary arteriosclerosis; Translations: [Atherosclerotic heart disease of [place] coronary artery without angina pectoris] Onset: 2 Chronic Comment on above: CABG - 12/2019Echo: L VEF 60%, normal RV size/function, LAE, RVSP normal - tress Testing: no ischemia - 10/2022 Disorders of lipid metabolism (20 sources) Familial hypercholesterolemia; Translations: [Familial hypercholesterolemia] Onset: 3 Chronic E Codes: Adverse effects of medical drugs (15 sources) Lipid-lowering drug adverse reaction; Translations: [Adverse effect of antihyperlipidemic and antiarteriosclerotic drugs, initial encounter] Episodic Esophageal disorders (20 sources) Gastro-esophageal reflux disease with esophagitis; Translations: [Gastroesophageal reflux disease with esophagitis without hemorrhage] 12-17-2023 Chronic Esophageal disorders (2 sources) Esophageal disorders; Translations: [Gastro-esophageal reflux disease with esophagitis, without bleeding] Onset: 5 Essential hypertension (20 sources) Essential hypertension; Translations: [Essential (primary) hypertension] Onset: 3 Chronic Inflammatory diseases of female pelvic organs (15 sources) Vulvovaginitis; Translations: [Acute vaginitis] Episodic Miscellaneous mental health disorders (20 sources) Primary insomnia; Translations: [Primary insomnia] 10-27-2023 Chronic Mycoses (2 sources) Pain in toe; Translations: [Tinea unguium] 04-15-2024 Episodic Nonspecific chest pain (5 sources) Precordial pain; Translations: [PRECORDIAL PAIN] Onset: 3 Episodic Occlusion or stenosis of precerebral arteries (20 sources) Left carotid artery stenosis; Translations: [Occlusion and stenosis of left carotid artery] Onset: 2 12-17-2023 Chronic Comment on above: US: B/L plaque < 50% - 08/2021 Osteoarthritis (20 sources) Primary gonarthrosis, bilateral; Translations: [Bilateral primary osteoarthritis of knee] Onset: 3 Chronic Osteoporosis (6 sources) Osteoporosis; Translations: [Other osteoporosis without current pathological fracture] Onset: 4 Chronic Other aftercare (10 sources) Patient encounter status; Translations: [Aftercare following joint replacement surgery] 10-07-2023 Chronic Other aftercare (9 sources) Aftercare following joint replacement surgery; Translations: [Aftercare following joint replacement] Onset: 4 10-08-2023 Chronic Other aftercare (4 sources) Other residential (current) drug therapy; Translations: [[facility] CURRENT DRUG [facility]ERAPY] Onset: 3 Episodic Other circulatory disease (3 sources) Other specified symptoms and signs involving the circulatory and respiratory systems Episodic Other connective tissue disease (10 sources) History of left total knee replacement; Translations: [Presence of left artificial knee joint] Chronic Other connective tissue disease (2 sources) Presence of left artificial knee joint Chronic Other connective tissue disease (12 sources) History of total knee arthroplasty; Translations: [Presence of right artificial knee joint] 09-02-2023 Chronic Other connective tissue disease (3 sources) Presence of right artificial knee joint; Translations: [Knee joint replacement] Onset: 4 09-01-2023 Chronic Other connective tissue disease (4 sources) History of total hip arthroplasty; Translations: [Presence of left artificial hip joint] Onset: 5 07-20-2024 Chronic Other connective tissue disease (11 sources) Presence of left artificial hip joint; Translations: [Hip joint replacement] Onset: 5 07-20-2024 Chronic Other connective tissue disease (15 sources) Myalgia caused by statin; Translations: [Myalgia, unspecified site] Episodic Other nervous system disorders (1 source) Other chronic pain; Translations: [OTHER CHRONIC PAIN] Onset: 3 Chronic Other nervous system disorders (12 sources) Postoperative pain ; Translations: [Other acute postprocedural pain] 09-03-2023 Episodic Other nutritional; endocrine; and metabolic disorders (15 sources) Body mass index 30+ - obesity; Translations: [Obesity, unspecified] Chronic Other nutritional; endocrine; and metabolic disorders (6 sources) Obesity, unspecified; Translations: [Obesity, unspecified] Chronic Other nutritional; endocrine; and metabolic disorders (8 sources) Obesity; Translations: [Obesity, unspecified] 03-12-2024 Chronic Other nutritional; endocrine; and metabolic disorders (1 source) Other obesity due to excess calories; Translations: [Other obesity due to excess calories] Onset: Chronic Other nutritional; endocrine; and metabolic disorders (1 source) Body mass index (BMI) 33.0-33.9, adult; Translations: [Body mass index [BMI] 33.0-33.9, adult] Onset: Chronic Other skin disorders (1 source) Follicular disorder, unspecified Episodic Other skin disorders (1 source) Mass of chest wall; Translations: [Localized swelling, mass and lump, trunk] 08-16-2024 Episodic Other skin disorders (1 source) Localized swelling, mass and lump, trunk; Translations: [Swelling, mass, or lump in chest] 08-16-2024 Episodic Other upper respiratory disease (1 source) Dysphonia Episodic Other upper respiratory infections (20 sources) Acute recurrent maxillary sinusitis; Translations: [Acute maxillary sinusitis, unspecified] Episodic Residual codes; unclassified (15 sources) Menopause present; Translations: [Asymptomatic menopausal state] Episodic Residual codes; unclassified (9 sources) Mammogram declined; Translations: [Procedure and treatment not carried out because of patient's decision for unspecified reasons] 12-19-2023 Episodic Residual codes; unclassified (1 source) Procedure and treatment not carried out because of patient's decision for unspecified reasons; Translations: [Surgical or other procedure not carried out because of patient's decision] 12-19-2023 Episodic Residual codes; unclassified (2 sources) Insomnia; Translations: [Insomnia, unspecified] 07-21-2024 Episodic Residual codes; unclassified (4 sources) Insomnia, unspecified; Translations: [Insomnia, unspecified] Onset: 5 08-02-2024 Episodic Residual codes; unclassified (1 source) Other specified health status; Translations: [Other specified health status] Onset: 5 Episodic Retinal detachments; defects; vascular occlusion; and retinopathy (4 sources) Nonexudative age-related macular degeneration; Translations: [Nonexudative age-related macular degeneration, bilateral, early dry stage] Onset: 4 02-23-2024 Chronic Spondylosis; intervertebral disc disorders; other back problems [...] [Unilateral primary osteoarthritis, right knee] Onset: 4 Viral infection (12 sources) Disease caused by 2019-nCoV; Translations: [COVID-19] 04-15-2024 Episodic Past or Other Problems Problem Classification Problem Date Documented Da te Episodic/Chronic Coronary atherosclerosis and other heart disease (4 sources) Presence of aortocoronary bypass graft; Translations: [Aortocoronary bypass status] Onset: 04-15-2022 09-01-2023 Episodic Inflammation; infection of eye (except that caused by tuberculosis or sexually transmitteddisease) (5 sources) Blepharitis of upper and lower eyelids of bilateral eyes; Translations: [Unspecified blepharitis right eye, upper and lower eyelids] Onset: 01-01-2023 01-01-2023 Episodic Other eye disorders (5 sources) Dry eyes; Translations: [Dry eye syndrome of bilateral lacrimal glands] Onset: 01-01-2023 01-01-2023 Episodic Other fractures (1 source) Collapsed vertebra, not elsewhere classified, lumbar region, initial encounter for fracture; Translations: [COLLAPSED VERT NEC LUMBAR INIT ENC] Onset: 01-31-2022 Episodic Other lower respiratory disease (4 sources) Dyspnea, unspecified; Translations: [DYSPNEA UNSPECIFIED] Onset: 05-08-2022 Episodic Other nervous system disorders (2 sources) Other acute postprocedural pain; Translations: [Other acute postoperative pain] Onset: 09-02-2023 09-15-2023 Episodic Other non-traumatic joint disorders (3 sources) Pain in left knee; Translations: [Pain in left knee] Onset: 11-19-2023 Episodic Other non-traumatic joint disorders (1 source) Pain in left hip; Translations: [Pain in left hip] Onset: 02-19-2024 Episodic Results Test Name Value Interpretation Reference Range Facility Alanine aminotransferase [En zymatic activity/volume] in Serum or PlasmaOrdered By: Dilip Laird on 07-26-2024 ALT [Catalytic activity/Vol] Alanine aminotransferase [Enzymatic activity/volume] in Serum or Plasma 7-52 [facility] Albumin [Mass/volume] in Ser um or Plasma by Bromocresol green (BCG) dye binding methoOrdered By: Dilip Laird on 07-26-2024 Albumin BCG dye [Mass/Vol] Albumin [Mass/volume] in Serum or Plasma by Bromocresol green (BCG) dye binding metho Low 3.5-5.7 [facility] Alkaline phosphatase [Enzyma tic activity/volume] in Serum or PlasmaOrdered By: Dilip Laird on 07-26-2024 ALP [Catalytic activity/Vol] Alkaline phosphatase [Enzymatic activity/volume] in Serum or Plasma High 34-104 [facility] Aspartate aminotransferase [ Enzymatic activity/volume] in Serum or PlasmaOrdered By: Dilip Laird on 07-26-2024 AST [Catalytic activity/Vol] Aspartate aminotransferase [Enzymatic activity/volume] in Serum or Plasma 13-39 [facility] Basophils Auto (Bld) [#/Vol] Ordered By: Dilip Laird on 07-26-2024 Basophils (Bld) [#/Vol] Automated basophil count 0.0-0.2 [facility] Basophils/100 WBC Auto (Bld) Ordered By: Dilip Laird on 07-26-2024 Basophils/100 WBC (Bld) Automated basophil % . [facility] Bilirubin.total [Mass/volume ] in Serum or PlasmaOrdered By: Dilip Laird on 07-26-2024 Bilirubin [Mass/Vol] Bilirubin.total [Mass/volume] in Serum or Plasma 0.3-1.0 [facility] Calcium [Mass/volume] in Ser um or PlasmaOrdered By: Dilip Laird on 07-26-2024 Calcium [Mass/Vol] Calcium [Mass/volume ] in Serum or Plasma 8.6-10.3 [facility] Carbon dioxide, total [Moles /volume] in Serum or PlasmaOrdered By: Dilip Laird on 07-26-2024 CO2 [Moles/Vol] Carbon dioxide, tota l [Moles/volume] in Serum or Plasma 21.0-31.0 [facility] Chloride [Moles/volume] in S tejas or PlasmaOrdered By: Dilip Laird on 07-26-2024 Chloride [Moles/Vol] Chloride [Moles/vol ume] in Serum or Plasma 98-107 [facility] Complete Blood Count Auto Di ffon 07-26-2024 Basophils (Bld) [#/Vol] 0.1 10*3/uL Normal 0.0-0.2 [facility] Comment on above: Result Comment: PERF ORMED BY: [place] [id number] PATHOLOGIST BLACK [employer] RAKER NIK GARZA M.D. Performed By: #### B MP, CBC #### [facility] [address] [place] [address] [place] Basophils/100 WBC (Bld) 1.9 % Normal . [facility] Comment on above: Performed By: #### B MP, CBC #### [facility] [address] [place] [address] [place] Eosinophils (Bld) [#/Vol] 1.0 10*3/uL High 0.0-0.45 [facility] Comment on above: Performed By: #### B MP, CBC #### [facility] [address] [place] [address] [place] Eosinophils/100 WBC (Bld) 14.7 % Normal . [facility] Comment on above: Performed By: #### B MP, CBC #### [address] Erythrocyte distribution width (RBC) [Ratio] 12.8 % Normal 11.9-15.3 [facility] Comment on above: Performed By: #### B MP, CBC #### [address] Hematocrit (Bld) [Volume fraction] 33.3 % Low 34.0-46.4 [facility] Comment on above: Performed By: #### B MP, CBC #### [address] Hemoglobin (Bld) [Mass/Vol] 11.2 g/dL Low 11.8-15.4 [facility] Comment on above: Performed By: #### B MP, CBC #### [address] Lymphocytes (Bld) [#/Vol] 1.5 10*3/uL Normal 1.00-4.8 [facility] Comment on above: Performed By: #### B MP, CBC #### [place] [address] [place] Lymphocytes/100 WBC (Bld) 22.1 % Normal . [facility] Comment on above: Performed By: #### B MP, CBC #### [address] MCH (RBC) [Entitic mass] 32.0 pg Normal 24.7-34.3 [facility] Comment on above: Performed By: #### B MP, CBC #### [address] MCV (RBC) [Entitic vol] 95.2 fL Normal 80-100 [facility] Comment on above: Performed By: #### B MP, CBC #### [address] Mean Corpuscular HGB Conc 33.6 g/dL Normal 32.0-35.0 [facility] Comment on above: Performed By: #### B MP, CBC #### [facility] [address] [place] [address] [place] Monocytes (Bld) [#/Vol] 0.8 10*3/uL Normal 0.0-0.8 [facility] Comment on above: Performed By: #### B MP, CBC #### [facility] [address] [place] [address] [place] Monocytes/100 WBC (Bld) 12.1 % Normal . [facility] Comment on above: Performed By: #### B MP, CBC #### [facility] [address] [place] [address] [place] Neutrophils (Bld) [#/Vol] 3.4 10*3/uL Normal 1.8-7.7 [facility] Comment on above: Performed By: #### B MP, CBC #### [address] Neutrophils/100 WBC (Bld) 49.2 % Normal . [facility] Comment on above: Performed By: #### B MP, CBC #### [place] [address] [place] NRBC% 0.1 /100{WBC} Normal 0-0.5 [facility] Comment on above: Performed By: #### B MP, CBC #### [place] [address] [place] Platelet mean volume (Bld) [Entitic vol] 8.2 fL Normal 6.3-10.7 [facility] Comment on above: Performed By: #### B MP, CBC #### [facility] [address] [place] [address] [place] Platelets (Bld) [#/Vol] 350 10*3/uL Normal 150-450 [facility] Comment on above: Performed By: #### B MP, CBC #### [place] [address] [place] RBC (Bld) [#/Vol] 3.49 10*6/uL Low 3.60-5.00 The [facility] Comment on above: Performed By: #### B MP, CBC #### [address] WBC (Bld) [#/Vol] 6.9 10*3/uL Normal 3.8-11.6 [facility] Comment on above: Performed By: #### B MP, CBC #### [address] Comprehensive Metabolic Pane elia 07-26-2024 Albumin [Mass/Vol] 3.1 g/dL Low 3.5-5.7 [facility] Comment on above: Performed By: #### B MP, CBC #### [address] Albumin/Globulin [Mass ratio] 1.1 {ratio} Normal [facility] Comment on above: Performed By: #### B MP, CBC #### [address] ALP [Catalytic activity/Vol] 108 U/L High 34-104 [facility] Comment on above: Performed By: #### B MP, CBC #### [address] ALT [Catalytic activity/Vol] 43 U/L Normal 7-52 [facility] Comment on above: Performed By: #### B MP, CBC #### [address] Anion gap [Moles/Vol] 10.9 mmol/L Normal 6.0-15.0 e [facility] Comment on above: Performed By: #### B MP, CBC #### [address] AST [Catalytic activity/Vol] 29 U/L Normal 13-39 [facility] Comment on above: Performed By: #### B MP, CBC #### [address] Bilirubin [Mass/Vol] 0.4 mg/dL Normal 0.3-1.0 [facility] Comment on above: Performed By: #### B MP, CBC #### [address] Calcium [Mass/Vol] 8.6 mg/dL Normal 8.6-10.3 [facility] Comment on above: Performed By: #### B MP, CBC #### [address] Chloride [Moles/Vol] 105 mmol/L Normal 98-107 [facility] Comment on above: Performed By: #### B MP, CBC #### [address] CO2 [Moles/Vol] 25.1 mmol/L Normal 21.0-31.0 [facility] Comment on above: Performed By: #### B MP, CBC #### [address] Creatinine [Mass/Vol] 0.84 mg/dL Normal 0.60-1.20 [facility] Comment on above: Performed By: #### B MP, CBC #### [address] Creatinine Clr Calc Pharmacy 44.86 Normal [facility] Comment on above: Result Comment: PERF ORMED BY: [place] [address] PATHOLOGIST [employer] NIK GARZA M.D. Performed By: #### B MP, CBC #### [address] GFR/1.73 sq M.predicted MDRD (S/P/Bld) [Vol rate/Area] mL/min/{1.73_m2} Normal [facility] Comment on above: Performed By: #### B MP, CBC #### [place] [address] [place] Globulin (S) [Mass/Vol] 2.8 g/dL Normal [facility] Comment on above: Performed By: #### B MP, CBC #### [place] [address] [place] Glucose [Mass/Vol] 86 mg/dL Normal 70-100 [facility] Comment on above: Result Comment: [place] Glucose Reference Range is dependent on time and content of last meal. Glucose of more than 200 mg/dL in a nonstressed, ambulatory subject supports the diagnosis of Diabetes Mellitus. ADA recommended reference range Performed By: #### B MP, CBC #### [facility] [address] [place] [id number] [place] Potassium [Moles/Vol] 4.0 mmol/L Normal 3.5-5.1 [facility] Comment on above: Performed By: #### B MP, CBC #### [facility] [address] [place] [address] [place] Protein [Mass/Vol] 5.9 g/dL Low 6.4-8.9 [facility] Comment on above: Performed By: #### B MP, CBC #### [facility] [address] [place] [id number] [place] Sodium [Moles/Vol] 137 mmol/L Normal 136-145 [facility] Comment on above: Performed By: #### B MP, CBC #### [facility] [address] [place] [address] [place] Urea nitrogen [Mass/Vol] 21 mg/dL Normal 7-25 [facility] Comment on above: Performed By: #### B MP, CBC #### [facility] [address] [place] [id number] [place] Creatinine [Mass/volume] in Serum or PlasmaOrdered By: Dilip Laird on 07-26-2024 Creatinine [Mass/Vol] Creatinine [Mass/v olume] in Serum or Plasma 0.60-1.20 [facility] Eosinophils Auto (Bld) [#/Vo l]Ordered By: Dilip Laird on 07-26-2024 Eosinophils (Bld) [#/Vol] Automated eosinophil count High 0.0-0.45 [facility] Eosinophils/100 WBC Auto (Bl d)Ordered By: Dilip Laird on 07-26-2024 Eosinophils/100 WBC (Bld) Automated eosinophil % . [facility] Erythrocyte distribution wid th Auto (RBC) [Ratio]Ordered By: Dilip Laird on 07-26-2024 Erythrocyte distribution width (RBC) [Ratio] Erythrocyte distribution width [Ratio] by Automated count 11.9-15.3 [facility] Globulin Calc (S) [Mass/Vol] Ordered By: Dilip Laird on 07-26-2024 Globulin (S) [Mass/Vol] Serum globulin measurement by calculation (mass/volume) [facility] Glucose [Mass/volume] in Ser um or PlasmaOrdered By: Dilip Laird on 07-26-2024 Glucose [Mass/Vol] Glucose [Mass/volume ] in Serum or Plasma 70-100 [facility] Comment on above: ADA recommended refe rence rangeRandom Glucose Reference Range is dependent on time and content of last meal. Glucose of more than 200 mg/dL in a nonstressed, ambulatory subject supports the diagnosis of Diabetes Mellitus. Hematocrit Auto (Bld) [Volum e fraction]Ordered By: Dilip Laird on 07-26-2024 Hematocrit (Bld) [Volume fraction] Hematocrit [Volume Fraction] of Blood by Automated count Low 34.0-46.4 [facility] Hemoglobin [Mass/volume] in BloodOrdered By: Dilip Laird on 07-26-2024 Hemoglobin (Bld) [Mass/Vol] Hemoglobin [Mass/volume] in Blood Low 11.8-15.4 [facility] Leukocytes [#/volume] correc alvaro for nucleated erythrocytes in Blood by Automated counOrdered By: Dilip Laird on 07-26-2024 WBC corrected for nucl RBC Auto (Bld) [#/Vol] Leukocytes [#/volume] corrected for nucleated erythrocytes in Blood by Automated coun 3.8-11.6 [facility] Lymphocytes Auto (Bld) [#/Vo l]Ordered By: Dilip Laird on 07-26-2024 Lymphocytes (Bld) [#/Vol] Lymphocytes [#/volume] in Blood by Automated count 1.00-4.8 [facility] Lymphocytes/100 WBC Auto (Bl d)Ordered By: iDlip Laird on 07-26-2024 Lymphocytes/100 WBC (Bld) Lymphocytes/100 leukocytes in Blood by Automated count . [facility] MCH Auto (RBC) [Entitic mass ]Ordered By: Dilip Laird on 07-26-2024 MCH (RBC) [Entitic mass] MCH [Entitic mass] by Automated count 24.7-34.3 [facility] MCHC Auto (RBC) [Mass/Vol]Or dered By: Dilip Laird on 07-26-2024 MCHC (RBC) [Mass/Vol] MCHC [Mass/volume] by Automated count 32.0-35.0 [facility] MCV Auto (RBC) [Entitic vol] Ordered By: Dilip Laird on 07-26-2024 MCV (RBC) [Entitic vol] MCV [Entitic volume] by Automated count 80-100 [facility] Monocytes Auto (Bld) [#/Vol] Ordered By: Dilip Laird on 07-26-2024 Monocytes (Bld) [#/Vol] Automated blood monocyte count 0.0-0.8 [facility] Monocytes/100 WBC Auto (Bld) Ordered By: Dilip Laird on 07-26-2024 Monocytes/100 WBC (Bld) Automated monocyte % . [facility] Neutrophils Auto (Bld) [#/Vo l]Ordered By: Dilip Laird on 07-26-2024 Neutrophils (Bld) [#/Vol] Neutrophils [#/volume] in Blood by Automated count 1.8-7.7 [facility] Neutrophils/100 WBC Auto (Bl d)Ordered By: Dilip Laird on 07-26-2024 Neutrophils/100 WBC (Bld) Automated neutrophil % . [facility] No Panel InformationOrdered By: Dilip Laird on 07-26-2024 Estimated GFR (CKD-EPI) > 60.0 mL/Min [facility] Creatinine Clearance (Chem 44.86 [facility] Nucleated erythrocytes [Pres ence] in Blood by Automated countOrdered By: Dilip Laird on 07-26-2024 Nucleated RBC Auto Ql (Bld) Nucleated erythrocytes [Presence] in Blood by Automated count 0-0.5 [facility] Platelet mean volume Auto (B ld) [Entitic vol]Ordered By: Dilip Laird on 07-26-2024 Platelet mean volume (Bld) [Entitic vol] Platelet mean volume [Entitic volume] in Blood by Automated count 6.3-10.7 [facility] Platelets Auto (Bld) [#/Vol] Ordered By: Dilip Laird on 07-26-2024 Platelets (Bld) [#/Vol] Platelets [#/volume] in Blood by Automated count 150-450 [facility] Potassium [Moles/volume] in Serum or PlasmaOrdered By: Dilip Laird on 07-26-2024 Potassium [Moles/Vol] Potassium [Moles/v olume] in Serum or Plasma 3.5-5.1 [facility] Protein [Mass/volume] in Ser um or PlasmaOrdered By: Dilip Laird on 07-26-2024 Protein [Mass/Vol] Protein [Mass/volume ] in Serum or Plasma Low 6.4-8.9 [facility] RBC Auto (Bld) [#/Vol]Ordere d By: Dilip Laird on 07-26-2024 RBC (Bld) [#/Vol] Erythrocytes [#/volu me] in Blood by Automated count Low 3.60-5.00 [facility] Serum or plasma albumin/glob ulin mass ratioOrdered By: Dilip Laird on 07-26-2024 Albumin/Globulin [Mass ratio] Serum or plasma albumin/globulin mass ratio [facility] Serum or plasma anion gap de terminationOrdered By: Dilip Laird on 07-26-2024 Anion gap [Moles/Vol] Serum or plasma an ion gap determination 6.0-15.0 [facility] Sodium [Moles/volume] in Ser um or PlasmaOrdered By: Dilip Laird on 07-26-2024 Sodium [Moles/Vol] Sodium [Moles/volume ] in Serum or Plasma 136-145 [facility] Urea nitrogen [Mass/volume] in Serum or PlasmaOrdered By: Dilip Laird on 07-26-2024 Urea nitrogen [Mass/Vol] Urea nitrogen [Mass/volume] in Serum or Plasma 7-25 [facility] WBC Auto (Bld) [#/Vol]Ordere d By: Dilip Laird on 07-26-2024 WBC (Bld) [#/Vol] Leukocytes [#/volume ] in Blood by Automated count 3.8-11.6 [facility] Comprehensive Metabolic Pane elia 07-22-2024 Albumin [Mass/Vol] 3.3 g/dL Low 3.5-5.7 [facility] Comment on above: Performed By: #### B MP, CBC #### [address] Albumin/Globulin [Mass ratio] 1.1 {ratio} Normal [facility] Comment on above: Performed By: #### B MP, CBC #### [address] ALP [Catalytic activity/Vol] 169 U/L High 34-104 [facility] Comment on above: Performed By: #### B MP, CBC #### [address] ALT [Catalytic activity/Vol] 146 U/L High 7-52 [facility] Comment on above: Performed By: #### B MP, CBC #### [address] Anion gap [Moles/Vol] 10.6 mmol/L Normal 6.0-15.0 [facility] Comment on above: Performed By: #### B MP, CBC #### [address] AST [Catalytic activity/Vol] 145 U/L High 13-39 [facility] Comment on above: Performed By: #### B MP, CBC #### [address] Bilirubin [Mass/Vol] 0.5 mg/dL Normal 0.3-1.0 [facility] Comment on above: Performed By: #### B MP, CBC #### [address] Calcium [Mass/Vol] 8.9 mg/dL Normal 8.6-10.3 [facility] Comment on above: Performed By: #### B MP, CBC #### [place] [address] [place] Chloride [Moles/Vol] 103 mmol/L Normal 98-107 [facility] Comment on above: Performed By: #### B MP, CBC #### [place] [address] [place] CO2 [Moles/Vol] 25.8 mmol/L Normal 21.0-31.0 [facility] Comment on above: Performed By: #### B MP, CBC #### [address] Creatinine [Mass/Vol] 1.02 mg/dL Normal 0.60-1.20 [facility] Comment on above: Performed By: #### B MP, CBC #### [place] [address] [place] Creatinine Clr Calc Pharmacy 36.53 Normal [facility] Comment on above: Result Comment: PERF ORMED BY: [place] [address] PATHOLOGIST [employer]AK[employer] NIK GARZA M.D. Performed By: #### B MP, CBC #### [address] Estimated GFR 55.269 mL/Min Normal [facility] Comment on above: Performed By: #### B MP, CBC #### [address] Globulin (S) [Mass/Vol] 2.9 g/dL Normal [facility] Comment on above: Performed By: #### B MP, CBC #### [address] Glucose [Mass/Vol] 87 mg/dL Normal 70-100 [facility] Comment on above: Result Comment: [place] Glucose Reference Range is dependent on time and content of last meal. Glucose of more than 200 mg/dL in a nonstressed, ambulatory subject supports the diagnosis of Diabetes Mellitus. ADA recommended reference range Performed By: #### B MP, CBC #### [place] [address] [place] Potassium [Moles/Vol] 4.4 mmol/L Normal 3.5-5.1 [facility] Comment on above: Performed By: #### B MP, CBC #### [address] Protein [Mass/Vol] 6.2 g/dL Low 6.4-8.9 [facility] Comment on above: Performed By: #### B MP, CBC #### [address] Sodium [Moles/Vol] 135 mmol/L Low 136-145 [facility] Comment on above: Performed By: #### B MP, CBC #### [address] Urea nitrogen [Mass/Vol] 17 mg/dL Normal 7-25 [facility] Comment on above: Performed By: #### B MP, CBC #### [address] Complete Blood Count Auto Di ffon 07-21-2024 Basophils (Bld) [#/Vol] 0.0 10*3/uL Normal 0.0-0.2 [facility] Comment on above: Result Comment: PERF ORMED BY: [place] [address] PATHOLOGIST [employer] NIK GARZA M.D. Performed By: #### C BC, CMP, PAB #### [address] Basophils/100 WBC (Bld) 0.5 % Normal . [facility] Comment on above: Performed By: #### C BC, CMP, PAB #### [address] Eosinophils (Bld) [#/Vol] 0.1 10*3/uL Normal 0.0-0.45 [facility] Comment on above: Performed By: #### C BC, CMP, PAB #### [address] Eosinophils/100 WBC (Bld) 1.8 % Normal . [facility] Comment on above: Performed By: #### C BC, CMP, PAB #### [address] Erythrocyte distribution width (RBC) [Ratio] 12.7 % Normal 11.9-15.3 [facility] Comment on above: Performed By: #### C BC, CMP, PAB #### [address] Hematocrit (Bld) [Volume fraction] 34.5 % Normal 34.0-46.4 [facility] Comment on above: Performed By: #### C BC, CMP, PAB #### [address] Hemoglobin (Bld) [Mass/Vol] 11.8 g/dL Normal 11.8-15.4 [facility] Comment on above: Performed By: #### C BC, CMP, PAB #### [address] Lymphocytes (Bld) [#/Vol] 0.8 10*3/uL Low 1.00-4.8 [facility] Comment on above: Performed By: #### C BC, CMP, PAB #### [address] Lymphocytes/100 WBC (Bld) 10.1 % Normal . [facility] Comment on above: Performed By: #### C BC, CMP, PAB #### [address] MCH (RBC) [Entitic mass] 32.5 pg Normal 24.7-34.3 [facility] Comment on above: Performed By: #### C BC, CMP, PAB #### [address] MCV (RBC) [Entitic vol] 95.0 fL Normal 80-100 [facility] Comment on above: Performed By: #### C BC, CMP, PAB #### [address] Mean Corpuscular HGB Conc 34.2 g/dL Normal 32.0-35.0 [facility] Comment on above: Performed By: #### C BC, CMP, PAB #### [address] Monocytes (Bld) [#/Vol] 1.0 10*3/uL High 0.0-0.8 [facility] Comment on above: Performed By: #### C BC, CMP, PAB #### [facility] [address] [place] [address] [place] Monocytes/100 WBC (Bld) 12.0 % Normal . [facility] Comment on above: Performed By: #### C BC, CMP, PAB #### [facility] [address] [place] [address] [place] Neutrophils (Bld) [#/Vol] 6.1 10*3/uL Normal 1.8-7.7 [facility] Comment on above: Performed By: #### C BC, CMP, PAB #### [place] [address] [place] Neutrophils/100 WBC (Bld) 75.6 % Normal . [facility] Comment on above: Performed By: #### C BC, CMP, PAB #### [facility] [address] NRBC% 0.0 /100{WBC} Normal 0-0.5 [facility] Comment on above: Performed By: #### C BC, CMP, PAB #### [place] [address] [place] Platelet mean volume (Bld) [Entitic vol] 8.5 fL Normal 6.3-10.7 [facility] Comment on above: Performed By: #### C BC, CMP, PAB #### [facility] [address] [place] [address] [place] Platelets (Bld) [#/Vol] 262 10*3/uL Normal 150-450 [facility] Comment on above: Performed By: #### C BC, CMP, PAB #### [facility] [address] [place] [address] [place] RBC (Bld) [#/Vol] 3.63 10*6/uL Normal 3.60-5.00 [facility] Comment on above: Performed By: #### C BC, CMP, PAB #### [place] [address] [place] WBC (Bld) [#/Vol] 8.1 10*3/uL Normal 3.8-11.6 [facility] Comment on above: Performed By: #### C BC CMP, PAB #### [address] Comprehensive Metabolic Pane elia 07-21-2024 Albumin [Mass/Vol] 3.3 g/dL Low 3.5-5.7 [facility] Comment on above: Performed By: #### C BC CMP, PAB #### [address] Albumin/Globulin [Mass ratio] 1.4 {ratio} Normal [facility] Comment on above: Performed By: #### C BC CMP, PAB #### [address] ALP [Catalytic activity/Vol] 135 U/L High 34-104 [facility] Comment on above: Performed By: #### C BC CMP, PAB #### [address] ALT [Catalytic activity/Vol] 105 U/L High 7-52 [facility] Comment on above: Performed By: #### C ABEL CMP, PAB #### [address] Anion gap [Moles/Vol] 11.4 mmol/L Normal 6.0-15.0 Th e [facility] Comment on above: Performed By: #### C BC CMP, PAB #### [address] AST [Catalytic activity/Vol] 126 U/L High 13-39 [facility] Comment on above: Performed By: #### C BC CMP, PAB #### [address] Bilirubin [Mass/Vol] 0.6 mg/dL Normal 0.3-1.0 [facility] Comment on above: Performed By: #### C BC CMP, PAB #### [address] [place] [address] [place] Calcium [Mass/Vol] 8.8 mg/dL Normal 8.6-10.3 [facility] Comment on above: Performed By: #### C CHEKO ROMAN, PAB #### [address] Chloride [Moles/Vol] 105 mmol/L Normal 98-107 [facility] Comment on above: Performed By: #### C CHEKO ROMAN, PAB #### [address] CO2 [Moles/Vol] 25.2 mmol/L Normal 21.0-31.0 [facility] Comment on above: Performed By: #### C CHEKO ROMAN, PAB #### [address] Creatinine [Mass/Vol] 0.75 mg/dL Normal 0.60-1.20 [facility] Comment on above: Performed By: #### C CHEKO ROMAN, PAB #### [address] Creatinine Clr Calc Pharmacy 46.58 Normal [facility] Comment on above: Performed By: #### C CHEKO ROMAN, PAB #### [address] GFR/1.73 sq M.predicted MDRD (S/P/Bld) [Vol rate/Area] mL/min/{1.73_m2} Normal [facility] Comment on above: Performed By: #### C CHEKO ROMAN, PAB #### [address] Globulin (S) [Mass/Vol] 2.4 g/dL Normal [facility] Comment on above: Performed By: #### C CHEKO ROMAN, PAB #### [address] Glucose [Mass/Vol] 102 mg/dL High 70-100 [facility] Comment on above: Result Comment: [facility] [place] Glucose Reference Range is dependent on time and content of last meal. Glucose of more than 200 mg/dL in a nonstressed, ambulatory subject supports the diagnosis of Diabetes Mellitus. ADA recommended reference range Performed By: #### C BC, CMP, PAB #### [address] Potassium [Moles/Vol] 4.6 mmol/L Normal 3.5-5.1 [facility] Comment on above: Performed By: #### C BC, CMP, PAB #### [address] Protein [Mass/Vol] 5.7 g/dL Low 6.4-8.9 [facility] Comment on above: Performed By: #### C BC, CMP, PAB #### [address] Sodium [Moles/Vol] 137 mmol/L Normal 136-145 [facility] Comment on above: Performed By: #### C BC CMP, PAB #### [address] Urea nitrogen [Mass/Vol] 16 mg/dL Normal 7-25 [facility] Comment on above: Performed By: #### C ABEL CMP, PAB #### [address] Prealbuminon 07-21-2024 Prealbumin [Mass/Vol] 14.4 mg/dL Low 17.0-34.0 [facility] Comment on above: Result Comment: PERF ORMED BY: [address] [place] [address] PATHOLOGIST BLACK TOP RAKER NIK GARZA M.D. Performed By: #### C BC, CMP, PAB #### [address] Prealbumin [Mass/volume] in Serum or PlasmaOrdered By: Dilip Laird on 07-21-2024 Prealbumin [Mass/Vol] Prealbumin [Mass/v olume] in Serum or Plasma Low 17.0-34.0 [facility] Basic Metabolic Panelon 07-01 Anion gap [Moles/Vol] 10.0 mmol/L Normal 6.0-15.0 Th e [facility] Comment on above: Performed By: #### B MP, CBC #### [facility] [address] [place] [address] [place] Calcium [Mass/Vol] 8.9 mg/dL Normal 8.6-10.3 [facility] Comment on above: Performed By: #### B MP, CBC #### [facility] [address] [place] [address] [place] Chloride [Moles/Vol] 104 mmol/L Normal 98-107 [facility] Comment on above: Performed By: #### B MP, CBC #### [place] [address] [place] CO2 [Moles/Vol] 24.0 mmol/L Normal 21.0-31.0 The [facility] Comment on above: Performed By: #### B MP, CBC #### [place] [address] [place] Creatinine [Mass/Vol] 0.76 mg/dL Normal 0.60-1.20 [facility] Comment on above: Performed By: #### B MP, CBC #### [place] [address] [place] Creatinine Clr Calc Pharmacy 46.67 Normal [facility] Comment on above: Result Comment: PERF ORMED BY: [place] [address] PATHOLOGIST BLACK TOP RAKER NIK GARZA M.D. Performed By: #### B MP, CBC #### [place] [address] [place] GFR/1.73 sq M.predicted MDRD (S/P/Bld) [Vol rate/Area] mL/min/{1.73_m2} Normal [facility] Comment on above: Performed By: #### B MP, CBC #### [place] [address] [place] Glucose [Mass/Vol] 107 mg/dL High 70-100 [facility] Comment on above: Result Comment: [place] Glucose Reference Range is dependent on time and content of last meal. Glucose of more than 200 mg/dL in a nonstressed, ambulatory subject supports the diagnosis of Diabetes Mellitus. ADA recommended reference range Performed By: #### B MP, CBC #### [facility] [address] Potassium [Moles/Vol] 4.0 mmol/L Normal 3.5-5.1 [facility] Comment on above: Performed By: #### B MP, CBC #### [facility] [address] Sodium [Moles/Vol] 134 mmol/L Low 136-145 [facility] Comment on above: Performed By: #### B MP, CBC #### [facility] [address] Urea nitrogen [Mass/Vol] 14 mg/dL Normal 7-25 [facility] Comment on above: Performed By: #### B MP, CBC #### [facility] [address] [place] [address] [place] Basophils Auto (Bld) [#/Vol] Ordered By: Magno Pichardo on 07-20-2024 Basophils (Bld) [#/Vol] Automated basophil count 0.0-0.2 [facility] Basophils/100 WBC Auto (Bld) Ordered By: Magno Pichardo on 07-20-2024 Basophils/100 WBC (Bld) Automated basophil % . [facility] Calcium [Mass/volume] in Ser um or PlasmaOrdered By: Magno Pichardo on 07-20-2024 Calcium [Mass/Vol] Calcium [Mass/volume ] in Serum or Plasma 8.6-10.3 [facility] Carbon dioxide, total [Moles /volume] in Serum or PlasmaOrdered By: Magno Pichardo on 07-20-2024 CO2 [Moles/Vol] Carbon dioxide, tota l [Moles/volume] in Serum or Plasma 21.0-31.0 [facility] Chloride [Moles/volume] in S tejas or PlasmaOrdered By: Magno Pichardo on 07-20-2024 Chloride [Moles/Vol] Chloride [Moles/vol ume] in Serum or Plasma 98-107 [facility] Complete Blood Count Auto Di ffon 07-20-2024 Basophils (Bld) [#/Vol] 0.1 10*3/uL Normal 0.0-0.2 [facility] Comment on above: Result Comment: PERF ORMED BY: [place] [address] PATHOLOGIST BLACK TOP RAKER NIK GARZA M.D. Performed By: #### B MP, CBC #### [address] Basophils/100 WBC (Bld) 0.9 % Normal . [facility] Comment on above: Performed By: #### B MP, CBC #### [address] Eosinophils (Bld) [#/Vol] 0.1 10*3/uL Normal 0.0-0.45 [facility] Comment on above: Performed By: #### B MP, CBC #### [address] Eosinophils/100 WBC (Bld) 1.9 % Normal . [facility] Comment on above: Performed By: #### B MP, CBC #### [address] Erythrocyte distribution width (RBC) [Ratio] 12.8 % Normal 11.9-15.3 [facility] Comment on above: Performed By: #### B MP, CBC #### [address] Hematocrit (Bld) [Volume fraction] 35.1 % Normal 34.0-46.4 [facility] Comment on above: Performed By: #### B MP, CBC #### [address] Hemoglobin (Bld) [Mass/Vol] 12.0 g/dL Normal 11.8-15.4 [facility] Comment on above: Performed By: #### B MP, CBC #### [place] [address] Lymphocytes (Bld) [#/Vol] 0.6 10*3/uL Low 1.00-4.8 [facility] Comment on above: Performed By: #### B MP, CBC #### [address] Lymphocytes/100 WBC (Bld) 8.7 % Normal . [facility] Comment on above: Performed By: #### B MP, CBC #### [address] MCH (RBC) [Entitic mass] 32.6 pg Normal 24.7-34.3 [facility] Comment on above: Performed By: #### B MP, CBC #### [address] MCV (RBC) [Entitic vol] 95.7 fL Normal 80-100 [facility] Comment on above: Performed By: #### B MP, CBC #### [address] Mean Corpuscular HGB Conc 34.1 g/dL Normal 32.0-35.0 [facility] Comment on above: Performed By: #### B MP, CBC #### [address] Monocytes (Bld) [#/Vol] 0.7 10*3/uL Normal 0.0-0.8 [facility] Comment on above: Performed By: #### B MP, CBC #### [address] Monocytes/100 WBC (Bld) 9.4 % Normal . [facility] Comment on above: Performed By: #### B MP, CBC #### [address] Neutrophils (Bld) [#/Vol] 5.5 10*3/uL Normal 1.8-7.7 [facility] Comment on above: Performed By: #### B MP, CBC #### [address] Neutrophils/100 WBC (Bld) 79.1 % Normal . [facility] Comment on above: Performed By: #### B MP, CBC #### [address] NRBC% 0.0 /100{WBC} Normal 0-0.5 [facility] Comment on above: Performed By: #### B MP, CBC #### [address] Platelet mean volume (Bld) [Entitic vol] 8.8 fL Normal 6.3-10.7 [facility] Comment on above: Performed By: #### B MP, CBC #### [address] Platelets (Bld) [#/Vol] 254 10*3/uL Normal 150-450 [facility] Comment on above: Performed By: #### B MP, CBC #### [address] RBC (Bld) [#/Vol] 3.67 10*6/uL Normal 3.60-5.00 [facility] Comment on above: Performed By: #### B MP, CBC #### [address] WBC (Bld) [#/Vol] 7.0 10*3/uL Normal 3.8-11.6 [facility] Comment on above: Performed By: #### B MP, CBC #### [address] Creatinine [Mass/volume] in Serum or PlasmaOrdered By: Magno Pichardo on 07-20-2024 Creatinine [Mass/Vol] Creatinine [Mass/v olume] in Serum or Plasma 0.60-1.20 [facility] Eosinophils Auto (Bld) [#/Vo l]Ordered By: Magno Pichardo on 07-20-2024 Eosinophils (Bld) [#/Vol] Automated eosinophil count 0.0-0.45 [facility] Eosinophils/100 WBC Auto (Bl d)Ordered By: Magno Pichardo on 07-20-2024 Eosinophils/100 WBC (Bld) Automated eosinophil % . [facility] Erythrocyte distribution wid th Auto (RBC) [Ratio]Ordered By: Magno Pichardo on 07-20-2024 Erythrocyte distribution width (RBC) [Ratio] Erythrocyte distribution width [Ratio] by Automated count 11.9-15.3 [facility] Glucose Glucometer (BldC) [M ass/Vol]Ordered By: Magno Pichardo on 07-20-2024 Glucose [Mass/Vol] Capillary blood gluc ose measurement by glucometer (mass/volume) [facility] Comment on above: Random Glucose Refer ence Range is dependent on time and content of last meal. Glucose of more than 200 mg/dL in a nonstressed, ambulatory subject supports the diagnosis of Diabetes Mellitus. Glucose Poct Glucometerson 0 07-20-2024 Glucose [Mass/Vol] 113 mg/dL Normal [facility] Comment on above: Result Comment: [place] om Glucose Reference Range is dependent on time and content of last meal. Glucose of more than 200 mg/dL in a nonstressed, ambulatory subject supports the diagnosis of Diabetes Mellitus. PERFORMED BY: [place] [address] PATHOLOGIST BLACK TOP RAKER NIK GARZA M.D. Performed By: #### B MP, CBC #### [address] Glucose [Mass/volume] in Ser um or PlasmaOrdered By: Magno Pichardo on 07-20-2024 Glucose [Mass/Vol] Glucose [Mass/volume ] in Serum or Plasma High 70-100 [facility] Comment on above: ADA recommended refe rence rangeRandom Glucose Reference Range is dependent on time and content of last meal. Glucose of more than 200 mg/dL in a nonstressed, ambulatory subject supports the diagnosis of Diabetes Mellitus. Hematocrit Auto (Bld) [Volum e fraction]Ordered By: Magno Pichardo on 07-20-2024 Hematocrit (Bld) [Volume fraction] Hematocrit [Volume Fraction] of Blood by Automated count 34.0-46.4 [facility] Hemoglobin [Mass/volume] in BloodOrdered By: Magno Pichardo on 07-20-2024 Hemoglobin (Bld) [Mass/Vol] Hemoglobin [Mass/volume] in Blood 11.8-15.4 [facility] Leukocytes [#/volume] correc alvaro for nucleated erythrocytes in Blood by Automated counOrdered By: Magno Pichardo on 07-20-2024 WBC corrected for nucl RBC Auto (Bld) [#/Vol] Leukocytes [#/volume] corrected for nucleated erythrocytes in Blood by Automated coun 3.8-11.6 [facility] Lymphocytes Auto (Bld) [#/Vo l]Ordered By: Magno Pichardo on 07-20-2024 Lymphocytes (Bld) [#/Vol] Lymphocytes [#/volume] in Blood by Automated count Low 1.00-4.8 [facility] Lymphocytes/100 WBC Auto (Bl d)Ordered By: Magno Pichardo on 07-20-2024 Lymphocytes/100 WBC (Bld) Lymphocytes/100 leukocytes in Blood by Automated count . [facility] MCH Auto (RBC) [Entitic mass ]Ordered By: Magno Pichardo on 07-20-2024 MCH (RBC) [Entitic mass] MCH [Entitic mass] by Automated count 24.7-34.3 [facility] MCHC Auto (RBC) [Mass/Vol]Or dered By: Magno Pichardo on 07-20-2024 MCHC (RBC) [Mass/Vol] MCHC [Mass/volume] by Automated count 32.0-35.0 [facility] MCV Auto (RBC) [Entitic vol] Ordered By: Magno Pichardo on 07-20-2024 MCV (RBC) [Entitic vol] MCV [Entitic volume] by Automated count 80-100 [facility] Monocytes Auto (Bld) [#/Vol] Ordered By: Magno Pichardo on 07-20-2024 Monocytes (Bld) [#/Vol] Automated blood monocyte count 0.0-0.8 [facility] Monocytes/100 WBC Auto (Bld) Ordered By: Magno Pichardo on 07-20-2024 Monocytes/100 WBC (Bld) Automated monocyte % . [facility] Neutrophils Auto (Bld) [#/Vo l]Ordered By: Magno Pichardo on 07-20-2024 Neutrophils (Bld) [#/Vol] Neutrophils [#/volume] in Blood by Automated count 1.8-7.7 [facility] Neutrophils/100 WBC Auto (Bl d)Ordered By: Magno Pichardo on 07-20-2024 Neutrophils/100 WBC (Bld) Automated neutrophil % . [facility] No Panel InformationOrdered By: Magno Pichardo on 07-20-2024 Estimated GFR (CKD-EPI) > 60.0 mL/Min [facility] Creatinine Clearance (Chem 46.67 [facility] Nucleated erythrocytes [Pres ence] in Blood by Automated countOrdered By: Magno Pichardo on 07-20-2024 Nucleated RBC Auto Ql (Bld) Nucleated erythrocytes [Presence] in Blood by Automated count 0-0.5 [facility] Platelet mean volume Auto (B ld) [Entitic vol]Ordered By: Magno Pichardo on 07-20-2024 Platelet mean volume (Bld) [Entitic vol] Platelet mean volume [Entitic volume] in Blood by Automated count 6.3-10.7 [facility] Platelets Auto (Bld) [#/Vol] Ordered By: Magno Pichardo on 07-20-2024 Platelets (Bld) [#/Vol] Platelets [#/volume] in Blood by Automated count 150-450 [facility] Potassium [Moles/volume] in Serum or PlasmaOrdered By: Magno Pichardo on 07-20-2024 Potassium [Moles/Vol] Potassium [Moles/v olume] in Serum or Plasma 3.5-5.1 [facility] RBC Auto (Bld) [#/Vol]Ordere d By: Magno Pichardo on 07-20-2024 RBC (Bld) [#/Vol] Erythrocytes [#/volu me] in Blood by Automated count 3.60-5.00 [facility] Serum or plasma anion gap de terminationOrdered By: Magno Pichardo on 07-20-2024 Anion gap [Moles/Vol] Serum or plasma an ion gap determination 6.0-15.0 [facility] Sodium [Moles/volume] in Ser um or PlasmaOrdered By: Magno Pichardo on 01-21-2025 Sodium [Moles/Vol] Sodium [Moles/volume ] in Serum or Plasma Low 136-145 [facility] Urea nitrogen [Mass/volume] in Serum or PlasmaOrdered By: Magno Pichardo on 07-20-2024 Urea nitrogen [Mass/Vol] Urea nitrogen [Mass/volume] in Serum or Plasma 7-25 [facility] Urine Cultureon 07-20-2024 Bacteria identified Cx Nom (U) <9,000 colonies/ml mixed bacterial skin contaminants 2 Days PERFORMED BY: [facility] [address] [place] [address] PATHOLOGIST BLACK TOP RAKER NIK GARZA M.D. Normal [facility] Comment on above: Performed By: #### C UU #### [facility] [address] Urine cultureOrdered By: Cora Arteaga on 07-20-2024 Bacteria identified Cx Nom (U) Urine culture [facility] WBC Auto (Bld) [#/Vol]Ordere d By: Magno Pichardo on 07-20-2024 WBC (Bld) [#/Vol] Leukocytes [#/volume ] in Blood by Automated count 3.8-11.6 [facility] Elia 07-19-2024 L ------ Specimen: [id number] Received: 07/19/24 Status: MENG [place] Num: [id number] Spec Type: Surgical Subm Dr: Magno Pichardo MD Tissues: A Femoral Head - Other than Fracture (LT HIP BONE AND TISSUE) Procedures: HE/2, Gross/Micro L3, Decalcification Age/ Patient Sex Location Account Attending Physician Ashley Brown 83/F [place] [id number] Magno Pichardo MD SPEC NUM: [id number] RECD: 07/19/24 STATUS: MENG KYLEE NUM: [id number] GINA: 07/19/24 [facility] DR: Magno Pichardo MD ENTERED: 07/19/[address]: JADA TYPE: Surgical DEPT: S ENTERED BY: [id number] RECV BY: [id number] ORDERED: HE/2, Gross/Micro L3, Decalcification ORDERED: HE/2, Gross/Micro L3, Decalcification Pathological Diagnosis Left hip bone and tissue, total hip arthroplasty -Femoral head with severe degenerative osteoarthritis, displaying marked articular erosion and cortical eburnation with markedly associated bony remodeling, including moderate irregular thickening of the involved trabecular bones, patchy moderate to severe subcortical fibrosis and serous degeneration, a large superficial wedge focus of moderate subcortical fibrinoid degeneration and focal mild cystic degenerations, consistent with the superimposed superficial avascular necrosis, focal severe cortical and subcortical chondroid metaplasia, and at least mild osteophytic degenerations, consistent with the severe, advanced, and focally complicated degenerative joint disease of the left hip Clinical Information Degenerative joint disease Gross Description Part A is received in formalin labeled with the patients name, date of , and bone and tissue L hip is a femoral head, 4.5 x 4 x 3.7 cm, resected with attached femoral neck, 1.3 cm in length by up to 4 cm in diameter with detached granular bone fragments, admixed with a small amount of fibrofatty tissue, 5.5 x 3.5 x 1.5 cm in aggregate. The articular surface is remarkable for granular degeneration and eburnation. The subarticular capsular surface ranges from less than 0.1 to 0.3 cm in thickness. The medullary bone is shoemaker, firm and uniform. Medical Accounting Clerk sections are submitted in A1?A2 after decalcification. (2, ss, Specimen: [id number] Received: 07/19/24 Status: MENG [place] Num: [id number] Spec Type: Surgical Subm Dr: Magno Pichardo MD Tissues: A Femoral Head - Other than Fracture (LT HIP BONE AND TISSUE) Procedures: HE/Jeffrey, Gross/Micro L3, Decalcification Patient: Ashley Brown [id number] (Continued) Specimen: [id number] Received: 07/19/24 (Continued) Gross Description (Continued) Signed (signature on file) Ara Ariza MD 07/21/24 1648 Specimen: Received: 07/19/24 Status: MENG [place] Num: [id number] Spec Type: Surgical Subm Dr: Magno Pichardo MD Tissues: A Femoral Head - Other than Fracture (LT HIP BONE AND TISSUE) Procedures: HE/2, Gross/Micro L3, Decalcification Patient: Ashley Brown [id number] (Continued) Specimen: Received: 07/19/24 (Continued) Gross Description (Continued) A) Microscopic Description Microscopic examinations are performed supporting the above interpretation CPT Codes 04420 40914 Specimen: [id number] Received: 07/19/24 Status: MENG Kylee Num: [id number] Spec Type: Surgical Subm Dr: Magno Pichardo MD Tissues: A Femoral Head - Other than Fracture (LT HIP BONE AND TISSUE) Procedures: HE/2, Gross/Micro L3, Decalcification Patient: Ashley Brown [id number] (Continued) Signed (signatur (more content not included)... Normal [facility] X-ray reportOrdered By: Karl Vickers on 07-19-2024 Study report [facility] [address] [address] XRay Report Signed Patient: Ashley Brown MR#: [id number] : 1940 Acct:[id number] Age/Sex: 83 / F ADM Date: 5 Loc: [place] Room: Type: [facility] Attending Dr: Magno Pichardo II, MD Copies to: Magno Pichardo MD~ Ordering Provider: Magno Pichardo MD Date of Service: 07/19/24 XR/XR hip LT 1V: LT HIP ARTHORPLASTY Intraoperative study. Reason for exam: Left JOSE Findings: 5 images were obtained intraoperatively. Hardware was placed. Cumulative Air Kerma in mGy: 3.87 mGy XR/XR hip LT 1V Impression: Intraoperative study. Impression dictated by: Dilip Vickers Jr., D.O.07/19/2024 1:20 PM Dictation Location: [place] [address] Transcribed By: [facility] 07/19/24 1320 Dictated By: Dilip Vickers Jr, DO 07/19/24 1320 Signed By: 07/19/24 1320 [facility] Study report [address] [address] XRay Report Signed Patient: Ashley Brown MR#: [id number] : 1940 Acct:[id number] Age/Sex: 83 / F ADM Date: 5 Loc: [place] Room: Type: [facility] Attending Dr: Magno Pichardo II, MD Copies to: Magno Pichardo MD~ Ordering Provider: Magno Pichardo MD Date of Service: 07/19/24 XR/XR low pelvis w/LT x-table hip: Total hip, Do in PACU Left hip 2 views. Reason for exam: Postop left JOSE. COMPARISON: Hip series 02/19/2024. FINDINGS: Soft tissues demonstrate postoperative change. Left JOSE without radiographic complication. XR/XR low pelvis w/LT x-table hip IMPRESSION: Left JOSE without radiographic complication. Impression dictated by: Dilip Vickers Jr., D.O.07/19/2024 12:48 PM Dictation Location: [facility]23 Transcribed By: EJSUSITA 07/19/24 1248 Dictated By: Dilip Vickers Jr DO 07/19/24 1247 Signed By: 07/19/24 1248 [facility] XR hip LT 1Von 07-19-2024 XR hip LT 1V [facility] [address] [address] XRay Report Signed Patient: Ashlye Brown MR#: [id number] 1 : 1940 Acct:[id number] Age/Sex: 83 / F ADM Date: 07/19/24 Loc: [place] Room: Type: [facility] Attending Dr: Magno Pichardo II, MD Copies to: Magno Pichardo MD Ordering Provider: Magno Pichardo MD Date of Service: 07/19/24 XR/XR hip LT 1V: LT HIP ARTHORPLASTY Intraoperative study. Reason for exam: Left JOSE Findings: 5 images were obtained intraoperatively. Hardware was placed. Cumulative Air Kerma in mGy: 3.87 mGy XR/XR hip LT 1V Impression: Intraoperative study. Impression dictated by: Dilip Vickers Jr., D.O.07/19/2024 1:20 PM Dictation Location: [facility]23 Transcribed By: JESUSITA 07/19/24 1320 Dictated By: Dilip Vickers Jr DO 07/19/24 1320 Signed By: 07/19/24 1320 Normal [facility] XR low pelvis w/LT x-table h ipon 07-19-2024 XR low pelvis w/LT x-table hip [facility] [address] [address] XRay Report Signed Patient: Ashley Brown MR#: [id number] 1 : 1940 Acct:[id number] Age/Sex: 83 / F ADM Date: 07/19/24 Loc: [place] Room: Type: [facility] Attending Dr: Magno Pichardo II, MD Copies to: Magno Pichardo MD Ordering Provider: Magno Pichardo MD Date of Service: 07/19/24 XR/XR low pelvis w/LT x-table hip: Total hip, Do in PACU Left hip 2 views. Reason for exam: Postop left JOSE. COMPARISON: Hip series 02/19/2024. FINDINGS: Soft tissues demonstrate postoperative change. Left JOSE without radiographic complication. XR/XR low pelvis w/LT x-table hip IMPRESSION: Left JOSE without radiographic complication. Impression dictated by: Dilip Vickers Jr., D.O.07/19/2024 12:48 PM Dictation Location: [place] [address] Transcribed By: [facility] 07/19/24 1248 Dictated By: Dilip Vickers Jr, DO 07/19/24 1247 Signed By: 07/19/24 1248 Normal [facility] Appearance of UrineOrdered B y: Magno Pichardo on 07-08-2024 Appearance (U) Urine appearance Clear [facility] Bacteria [Presence] in Urine by AutomatedOrdered By: Magno Pichardo on 07-08-2024 Bacteria Auto Ql (U) Bacteria [Presence] in Urine by Automated None Seen [facility] Basic Metabolic Panelon Anion gap [Moles/Vol] 12.0 mmol/L Normal 6.0-15.0 Th e [facility] Comment on above: Performed By: #### B MP, CBC #### [facility] [address] [place] [address] [place] Calcium [Mass/Vol] 9.2 mg/dL Normal 8.6-10.3 [facility] Comment on above: Result Comment: PERF ORMED BY: [place] [address] PATHOLOGIST BLACK TOP RAKER NIK GARZA M.D. Performed By: #### B MP, CBC #### [facility] [address] [place] [address] [place] Chloride [Moles/Vol] 106 mmol/L Normal 98-107 [facility] Comment on above: Performed By: #### B MP, CBC #### [facility] [address] [place] [id number] [place] CO2 [Moles/Vol] 25.1 mmol/L Normal 21.0-31.0 The [facility] Comment on above: Performed By: #### B MP, CBC #### [address] Creatinine [Mass/Vol] 0.80 mg/dL Normal 0.60-1.20 [facility] Comment on above: Performed By: #### B MP, CBC #### [place] [address] [place] GFR/1.73 sq M.predicted MDRD (S/P/Bld) [Vol rate/Area] mL/min/{1.73_m2} Normal [facility] Comment on above: Performed By: #### B MP, CBC #### [address] Glucose [Mass/Vol] 82 mg/dL Normal 70-100 [facility] Comment on above: Result Comment: [facility] Glucose Reference Range is dependent on time and content of last meal. Glucose of more than 200 mg/dL in a nonstressed, ambulatory subject supports the diagnosis of Diabetes Mellitus. ADA recommended reference range Performed By: #### B SINGH, CBC #### [address] Potassium [Moles/Vol] 4.1 mmol/L Normal 3.5-5.1 [facility] Comment on above: Performed By: #### B MP, CBC #### [address] Sodium [Moles/Vol] 139 mmol/L Normal 136-145 [facility] Comment on above: Performed By: #### B MP, CBC #### [address] Urea nitrogen [Mass/Vol] 31 mg/dL High 7-25 [facility] Comment on above: Performed By: #### B MP, CBC #### [place] [address] [place] Basophils Auto (Bld) [#/Vol] Ordered By: Magno Pichardo on 07-08-2024 Basophils (Bld) [#/Vol] Automated basophil count 0.0-0.2 [facility] Basophils/100 WBC Auto (Bld) Ordered By: Magno Pichardo on 07-08-2024 Basophils/100 WBC (Bld) Automated basophil % . [facility] Bilirubin Test strip Ql (U)O rdered By: Magno Pichardo on 07-08-2024 Bilirubin Ql (U) Bilirubin.total [Pre sence] in Urine by Test strip Negative [facility] Calcium [Mass/volume] in Ser um or PlasmaOrdered By: Magno Pichardo on 07-08-2024 Calcium [Mass/Vol] Calcium [Mass/volume ] in Serum or Plasma 8.6-10.3 [facility] Carbon dioxide, total [Moles /volume] in Serum or PlasmaOrdered By: Magno Pichardo on 07-08-2024 CO2 [Moles/Vol] Carbon dioxide, tota l [Moles/volume] in Serum or Plasma 21.0-31.0 [facility] Chloride [Moles/volume] in S tejas or PlasmaOrdered By: Magno Pichardo on 07-08-2024 Chloride [Moles/Vol] Chloride [Moles/vol ume] in Serum or Plasma 98-107 [facility] Color Auto (U)Ordered By: Suri Pichardo on 07-08-2024 Color (U) Color of Urine by Auto Yellow Fi [facility] Complete Blood Count Auto Di ffon 07-08-2024 Basophils (Bld) [#/Vol] 0.1 10*3/uL Normal 0.0-0.2 [facility] Comment on above: Result Comment: PERF ORMED BY: [place] [address] PATHOLOGIST BLACK TOP RAKER NIK GARZA M.D. Performed By: #### B MP, CBC #### [address] Basophils/100 WBC (Bld) 1.8 % Normal . [facility] Comment on above: Performed By: #### B MP, CBC #### [place] [address] [place] Eosinophils (Bld) [#/Vol] 0.3 10*3/uL Normal 0.0-0.45 [facility] Comment on above: Performed By: #### B MP, CBC #### [address] Eosinophils/100 WBC (Bld) 4.7 % Normal . [facility] Comment on above: Performed By: #### B MP, CBC #### [address] Erythrocyte distribution width (RBC) [Ratio] 13.3 % Normal 11.9-15.3 [facility] Comment on above: Performed By: #### B MP, CBC #### [address] Hematocrit (Bld) [Volume fraction] 37.6 % Normal 34.0-46.4 [facility] Comment on above: Performed By: #### B MP, CBC #### [address] Hemoglobin (Bld) [Mass/Vol] 12.5 g/dL Normal 11.8-15.4 [facility] Comment on above: Performed By: #### B MP, CBC #### [address] Lymphocytes (Bld) [#/Vol] 0.8 10*3/uL Low 1.00-4.8 [facility] Comment on above: Performed By: #### B MP, CBC #### [place] [address] [place] Lymphocytes/100 WBC (Bld) 13.6 % Normal . [facility] Comment on above: Performed By: #### B MP, CBC #### [address] MCH (RBC) [Entitic mass] 31.8 pg Normal 24.7-34.3 [facility] Comment on above: Performed By: #### B MP, CBC #### [place] [address] MCV (RBC) [Entitic vol] 95.9 fL Normal 80-100 [facility] Comment on above: Performed By: #### B MP, CBC #### [address] Mean Corpuscular HGB Conc 33.2 g/dL Normal 32.0-35.0 [facility] Comment on above: Performed By: #### B MP, CBC #### [address] Monocytes (Bld) [#/Vol] 0.6 10*3/uL Normal 0.0-0.8 [facility] Comment on above: Performed By: #### B MP, CBC #### [address] Monocytes/100 WBC (Bld) 10.4 % Normal . [facility] Comment on above: Performed By: #### B MP, CBC #### [address] Neutrophils (Bld) [#/Vol] 3.9 10*3/uL Normal 1.8-7.7 [facility] Comment on above: Performed By: #### B MP, CBC #### [address] Neutrophils/100 WBC (Bld) 69.5 % Normal . [facility] Comment on above: Performed By: #### B MP, CBC #### [address] NRBC% 0.0 /100{WBC} Normal 0-0.5 [facility] Comment on above: Performed By: #### B MP, CBC #### [address] Platelet mean volume (Bld) [Entitic vol] 8.7 fL Normal 6.3-10.7 [facility] Comment on above: Performed By: #### B MP, CBC #### [address] Platelets (Bld) [#/Vol] 306 10*3/uL Normal 150-450 [facility] Comment on above: Performed By: #### B MP, CBC #### [facility] [address] RBC (Bld) [#/Vol] 3.92 10*6/uL Normal 3.60-5.00 [facility] Comment on above: Performed By: #### B MP, CBC #### [facility] [address] [place] [id number] [facility] WBC (Bld) [#/Vol] 5.5 10*3/uL Normal 3.8-11.6 [facility] Comment on above: Performed By: #### B MP, CBC #### [address] Creatinine [Mass/volume] in Serum or PlasmaOrdered By: Magno Pichardo on 07-08-2024 Creatinine [Mass/Vol] Creatinine [Mass/v olume] in Serum or Plasma 0.60-1.20 [facility] Dipstick and Microscopicon 0 07-08-2024 Appearance (U) Clear Normal Clear [facility] Comment on above: Order Comment: Name Collection Type:: Clean-Voided Midstream Performed By: #### A DDONUAPLUS, CUU #### [address] Bacteria,Urine Rare Normal None Seen [facility] Comment on above: Order Comment: Name Collection Type:: Clean-Voided Midstream Performed By: #### A DDONUAPLUS, CUU #### [place] [id number] [place] Bilirubin,Urine Negative Normal Negative [facility] Comment on above: Order Comment: Name Collection Type:: Clean-Voided Midstream Performed By: #### A DDONUAPLUS, CUU #### [place] [id number] [facility] Color (U) Light-Yellow Normal Yellow [facility] Comment on above: Order Comment: Name Collection Type:: Clean-Voided Midstream Performed By: #### A DDONUAPLUS, CUU #### [address] Glucose Ql (U) Normal Normal Normal [facility] Comment on above: Order Comment: Name Collection Type:: Clean-Voided Midstream Performed By: #### A DDONUAPLUS, CUU #### [place] [address] [place] Hyaline Casts,Urine 0 [LPF] Normal 0-8 [facility] Comment on above: Order Comment: Name Collection Type:: Clean-Voided Midstream Performed By: #### A DDONUAPLUS, CUU #### [address] Ketones Ql (U) Negative Normal Negative [facility] Comment on above: Order Comment: Name Collection Type:: Clean-Voided Midstream Performed By: #### A DDONUAPLUS, CUU #### [address] Leukocyte esterase Test strip Ql (U) 3+ High Negative [facility] Comment on above: Order Comment: Name Collection Type:: Clean-Voided Midstream Performed By: #### A DDONUAPLUS, CUU #### [address] Mucus,Urine Rare Normal [facility] Comment on above: Order Comment: Name Collection Type:: Clean-Voided Midstream Result Comment: PERF ORMED BY: [place] [address] PATHOLOGIST BLACK TOP RAKER NIK GARZA M.D. Performed By: #### A DDONUAPLUS, CUU #### [place] [address] [place] Nitrite,Urine Negative Normal Negative [facility] Comment on above: Order Comment: Name Collection Type:: Clean-Voided Midstream Performed By: #### A DDONUAPLUS, CUU #### [place] [address] [place] Occult Blood,Urine Negative Normal Negative [facility] Comment on above: Order Comment: Name Collection Type:: Clean-Voided Midstream Result Comment: PERF ORMED BY: [place] [address] PATHOLOGIST BLACK TOP RAKER NIK GARZA M.D. Performed By: #### A DDONUAPLUS, CUU #### [address] pH (U) 5.5 [pH] Normal 5.0-9.0 [facility] Comment on above: Order Comment: Name Collection Type:: Clean-Voided Midstream Performed By: #### A DDONUAPLUS, CUU #### [address] Protein,Urine Negative Normal Negative [facility] Comment on above: Order Comment: Name Collection Type:: Clean-Voided Midstream Performed By: #### A DDONUAPLUS, CUU #### [place] [address] [place] RBC,Urine 1 [HPF] Normal 0-4 [facility] Comment on above: Order Comment: Name Collection Type:: Clean-Voided Midstream Performed By: #### A DDONUAPLUS, CUU #### [address] Specificy [place],Urine 1.026 Normal 1.001-1.03 0 [facility] Comment on above: Order Comment: Name Collection Type:: Clean-Voided Midstream Performed By: #### A DDONUAPLUS, CUU #### [place] [address] [place] Squamous Epithelial Cell,Urine 1 [HPF] Normal 0-2 [facility] Comment on above: Order Comment: Name Collection Type:: Clean-Voided Midstream Performed By: #### A DDONUAPLUS, CUU #### [place] [address] [place] Urobilinogen,Urine Normal Normal Normal [facility] Comment on above: Order Comment: Name Collection Type:: Clean-Voided Midstream Performed By: #### A DDONUAPLUS, CUU #### [facility] [address] WBC,Urine 10 [HPF] High 0-4 [facility] Comment on above: Order Comment: Name Collection Type:: Clean-Voided Midstream Performed By: #### A DDONUAPLUS, CUU #### [facility] [address] [place] [address] ECG 12 lead ECGon 07-08-2024 ECG 12 lead ECG [facility] [address] [place] [address] Electrocardiograph Report Signed Patient: Ashley Brown MR#: [id number] 1 : 1940 Acct:[id number] Age/Sex: 83 / F ADM Date: 07/08/24 Loc: Room: Type: [facility] Attending Dr: Magno Pichardo II, MD Ordering Provider: Magno Pichardo MD Date of Service: 07/08/2403/24/856 ECG/ECG 12 lead ECG: preop Copies to: Test Reason : Blood Pressure : */* mmHG Vent. Rate : 62 BPM Atrial Rate : 62 BPM P-R Int : 174 ms QRS Dur : 112 ms QT Int : 440 ms P-R-T Axes : 41 56 -59 degrees QTcB Int : 446 ms Normal sinus rhythm Poor anterior R wave progression Abnormal ECG When compared with ECG of 20-Aug-2023 14:08, No significant change was found Confirmed by FALGUNI GUILLERMO MD ([id number]) on 07/08/2024 3:55:05 PM Referred By: Electronically Signed By: FALGUNI GUILLERMO MD Transcribed By: MUS Signed By Falguni Guillermo MD 0 07/08/24 1555 Normal [facility] Eosinophils Auto (Bld) [#/Vo l]Ordered By: Magno Pichardo on 07-08-2024 Eosinophils (Bld) [#/Vol] Automated eosinophil count 0.0-0.45 [facility] Eosinophils/100 WBC Auto (Bl d)Ordered By: Magno Pichardo on 07-08-2024 Eosinophils/100 WBC (Bld) Automated eosinophil % . [facility] Epithelial cells.squamous [# /area] in Urine sediment by Automated countOrdered By: Magno Pichardo on 07-08-2024 Epithelial cells.squamous Auto (Urine sed) [#/Area] Epithelial cells.squamous [#/area] in Urine sediment by Automated count 0-2 [facility] Erythrocyte distribution wid th Auto (RBC) [Ratio]Ordered By: Magno Pichardo on 07-08-2024 Erythrocyte distribution width (RBC) [Ratio] Erythrocyte distribution width [Ratio] by Automated count 11.9-15.3 [facility] Erythrocytes [#/area] in Uri ne sediment by Automated countOrdered By: Magno Pichardo on 07-08-2024 RBC Auto (Urine sed) [#/Area] Erythrocytes [#/area] in Urine sediment by Automated count 0-4 [facility] Fructosamineon 07-08-2024 Fructosamine 211 umol/L Normal 0-285 [facility] Comment on above: Result Comment: Publ ished reference interval for apparently healthy subjects between age 20 and 60 is 205 - 285 umol/L and in a poorly controlled diabetic population is 228 - 563 umol/L with a mean of 396 umol/L. Performed at: [facility] [place] [id number] [employer] Apprentice: Federico Guzman PhD, Phone: [phone] PERFORMED BY: [place] [address] PATHOLOGIST BLACK TOP RAKER NIK GARZA M.D. Performed By: #### C BC, CMP, PAB #### [address] Fructosamine [Moles/volume] in Serum or PlasmaOrdered By: Magno Pichardo on 07-08-2024 Fructosamine [Moles/Vol] Fructosamine [Moles/volume] in Serum or Plasma 0-285 [facility] Comment on above: Published reference interval for apparently healthysubjects between age 20 and 60 is 205 - 285 umol/L and in apoorly controlled diabetic population is 228 - 563 umol/Lwith a mean of 396 umol/L.Performed at: [employer] [facility] [id number] Director: Federico Guzman PhD, Phone: [phone] Glucose [Mass/volume] in Ser um or PlasmaOrdered By: Magno Pichardo on 07-08-2024 Glucose [Mass/Vol] Glucose [Mass/volume ] in Serum or Plasma 70-100 [facility] Comment on above: ADA recommended refe rence rangeRandom Glucose Reference Range is dependent on time and content of last meal. Glucose of more than 200 mg/dL in a nonstressed, ambulatory subject supports the diagnosis of Diabetes Mellitus. Glucose [Mass/volume] in Uri ne by Test stripOrdered By: Magno Pichardo on 07-08-2024 Glucose Test strip (U) [Mass/Vol] Glucose [Mass/volume] in Urine by Test strip Normal [facility] Hematocrit Auto (Bld) [Volum e fraction]Ordered By: Magno Pichardo on 07-08-2024 Hematocrit (Bld) [Volume fraction] Hematocrit [Volume Fraction] of Blood by Automated count 34.0-46.4 [facility] Hemoglobin Test strip Ql (U) Ordered By: Magno Pichardo on 07-08-2024 Hemoglobin Ql (U) Hemoglobin [Presence ] in Urine by Test strip Negative [facility] Hemoglobin [Mass/volume] in BloodOrdered By: Magno Pichardo on 07-08-2024 Hemoglobin (Bld) [Mass/Vol] Hemoglobin [Mass/volume] in Blood 11.8-15.4 [facility] Hyaline casts [#/area] in Ur ine sediment by Automated countOrdered By: Magno Pichardo on 07-08-2024 Hyaline casts Auto (Urine sed) [#/Area] Hyaline casts [#/area] in Urine sediment by Automated count 0-8 [facility] Ketones Test strip Ql (U)Ord ered By: Magno Pichardo on 07-08-2024 Ketones Ql (U) Ketones [Presence] i n Urine by Test strip Negative [facility] Leukocyte esterase [Presence ] in Urine by Test stripOrdered By: Magno Pichardo on 07-08-2024 Leukocyte esterase Test strip Ql (U) Leukocyte esterase [Presence] in Urine by Test strip High Negative [facility] Leukocytes [#/area] in Urine sediment by Automated countOrdered By: Magno Pichardo on 07-08-2024 WBC Auto (Urine sed) [#/Area] Leukocytes [#/area] in Urine sediment by Automated count High 0-4 [facility] Leukocytes [#/volume] correc alvaro for nucleated erythrocytes in Blood by Automated counOrdered By: Magno Pichardo on 07-08-2024 WBC corrected for nucl RBC Auto (Bld) [#/Vol] Leukocytes [#/volume] corrected for nucleated erythrocytes in Blood by Automated coun 3.8-11.6 [facility] Lymphocytes Auto (Bld) [#/Vo l]Ordered By: Magno Pichardo on 07-08-2024 Lymphocytes (Bld) [#/Vol] Lymphocytes [#/volume] in Blood by Automated count Low 1.00-4.8 [facility] Lymphocytes/100 WBC Auto (Bl d)Ordered By: Magno Pichardo on 07-08-2024 Lymphocytes/100 WBC (Bld) Lymphocytes/100 leukocytes in Blood by Automated count . [facility] MCH Auto (RBC) [Entitic mass ]Ordered By: Magno Pichardo on 07-08-2024 MCH (RBC) [Entitic mass] MCH [Entitic mass] by Automated count 24.7-34.3 [facility] MCHC Auto (RBC) [Mass/Vol]Or dered By: Magno Pichardo on 07-08-2024 MCHC (RBC) [Mass/Vol] MCHC [Mass/volume] by Automated count 32.0-35.0 [facility] MCV Auto (RBC) [Entitic vol] Ordered By: Magno Pichardo on 07-08-2024 MCV (RBC) [Entitic vol] MCV [Entitic volume] by Automated count 80-100 [facility] Monocytes Auto (Bld) [#/Vol] Ordered By: Magno Pichardo on 07-08-2024 Monocytes (Bld) [#/Vol] Automated blood monocyte count 0.0-0.8 [facility] Monocytes/100 WBC Auto (Bld) Ordered By: Magno Pichardo on 07-08-2024 Monocytes/100 WBC (Bld) Automated monocyte % . [facility] Mucus [Presence] in Urine by AutomatedOrdered By: Magno Pichardo on 07-08-2024 Mucus Auto Ql (U) Mucus [Presence] in Urine by Automated [facility] Neutrophils Auto (Bld) [#/Vo l]Ordered By: Magno Pichardo on 07-08-2024 Neutrophils (Bld) [#/Vol] Neutrophils [#/volume] in Blood by Automated count 1.8-7.7 [facility] Neutrophils/100 WBC Auto (Bl d)Ordered By: Magno Pichardo on 07-08-2024 Neutrophils/100 WBC (Bld) Automated neutrophil % . [facility] Nitrite Test strip Ql (U)Ord ered By: Magno Pichardo on 07-08-2024 Nitrite Ql (U) Nitrite [Presence] i n Urine by Test strip Negative [facility] No Panel InformationOrdered By: Magno Pichardo on 07-08-2024 Estimated GFR (CKD-EPI) > 60.0 mL/Min [facility] Creatinine Clearance (Chem N/A [facility] Nucleated erythrocytes [Pres ence] in Blood by Automated countOrdered By: Magno Pichardo on 07-08-2024 Nucleated RBC Auto Ql (Bld) Nucleated erythrocytes [Presence] in Blood by Automated count 0-0.5 [facility] Platelet mean volume Auto (B ld) [Entitic vol]Ordered By: Magno Pichardo on 07-08-2024 Platelet mean volume (Bld) [Entitic vol] Platelet mean volume [Entitic volume] in Blood by Automated count 6.3-10.7 [facility] Platelets Auto (Bld) [#/Vol] Ordered By: Magno Pichardo on 07-08-2024 Platelets (Bld) [#/Vol] Platelets [#/volume] in Blood by Automated count 150-450 [facility] Potassium [Moles/volume] in Serum or PlasmaOrdered By: Magno Pichardo on 07-08-2024 Potassium [Moles/Vol] Potassium [Moles/v olume] in Serum or Plasma 3.5-5.1 [facility] Protein Test strip (U) [Mass /Vol]Ordered By: Magno Pichardo on 07-08-2024 Protein (U) [Mass/Vol] Protein [Mass/volume] in Urine by Test strip Negative [facility] RBC Auto (Bld) [#/Vol]Ordere d By: Magno Pichardo on 07-08-2024 RBC (Bld) [#/Vol] Erythrocytes [#/volu me] in Blood by Automated count 3.60-5.00 [facility] Serum or plasma anion gap de terminationOrdered By: Magno Pichardo on 07-08-2024 Anion gap [Moles/Vol] Serum or plasma an ion gap determination 6.0-15.0 [facility] Sodium [Moles/volume] in Ser um or PlasmaOrdered By: Magno Pichardo on 07-08-2024 Sodium [Moles/Vol] Sodium [Moles/volume ] in Serum or Plasma 136-145 [facility] Specific gravity Test strip (U) [Rel density]Ordered By: Magno Pichardo on 07-08-2024 Specific gravity (U) [Rel density] Specific gravity of Urine by Test strip 1.001-1.03 0 [facility] Urea nitrogen [Mass/volume] in Serum or PlasmaOrdered By: Magno Pichardo on 07-08-2024 Urea nitrogen [Mass/Vol] Urea nitrogen [Mass/volume] in Serum or Plasma High 7-25 [facility] Urine Cultureon 07-08-2024 Bacteria identified Cx Nom (U) ORGANISM: Jessica albicans (O:CANALB) [place] Count <10,000 PERFORMED BY: [facility] [address] [place] [address] PATHOLOGIST BLACK TOP RAKER NIK GARZA M.D. Normal [facility] Comment on above: Performed By: #### A DDONUAPLUS, CUU #### [facility] [address] Urine cultureOrdered By: Tony Pichardo on 07-08-2024 Bacteria identified Cx Nom (U) Abnormal [facility] Urobilinogen Test strip (U) [Mass/Vol]Ordered By: Magno Pichardo on 07-08-2024 Urobilinogen (U) [Mass/Vol] Urobilinogen [Mass/volume] in Urine by Test strip Normal [facility] WBC Auto (Bld) [#/Vol]Ordere d By: Magno Pichardo on 07-08-2024 WBC (Bld) [#/Vol] Leukocytes [#/volume ] in Blood by Automated count 3.8-11.6 [facility] pH Test strip (U)Ordered By: Magno Pichardo on 07-08-2024 pH (U) pH of Urine by Test strip 5.0-9.0 [facility] 36on 06-21-2024 36 Patient is needing clearance for a left hip surgery on 07/19/[address] Pichardo. Patient stated she just needs any cardiology testing that was done sent over to Dr Pichardo office. Lashonda PEOPLES Normal [facility] Telephoneon 06-21-2024 Telephone [phone] Ashley Brown 1940 F Date Provider Department Center 06/21/2024 JEREMIAS JONES KIANNA [facility] Family History Problem Relation Age of Onset Coronary artery disease Father Other Father Family Status - Relation Status Age at Father Reason for Visit and Comments: Surgical Clearance [Other] Normal [facility] A1C with Estimated Average G maira 05-05-2024 Glucose [Mass/Vol] 126 mg/dL Normal [facility] Comment on above: Result Comment: PERF ORMED BY: [place] [address] PATHOLOGIST BLACK TOP RAKER BUBBA MERIDA M.D. Performed By: #### B MP, CBC #### [facility] [address] HbA1c (Bld) [Mass fraction] 6.0 % High 4.3-5.6 [facility] Comment on above: Result Comment: Incr eased risk for diabetes: 5.7 - 6.4 diabetes: >6.4 glycemic control for adults with diabetes: <7.0 Performed By: #### B MP, CBC #### [facility] [address] [place], [place] [id number] [place] Albumin Levelon 05-05-2024 Albumin [Mass/Vol] 3.7 g/dL Normal 3.5-5.7 [facility] Comment on above: Performed By: #### B MP, CBC #### [facility] [address] [place] [address] [place] Albumin [Mass/volume] in Ser um or Plasma by Bromocresol green (BCG) dye binding methoOrdered By: Magno Pichardo on 05-05-2024 Albumin BCG dye [Mass/Vol] 3.7 g/dL 3.5-5.7 [facility] Albumin BCG dye [Mass/Vol] Albumin [Mass/volume] in Serum or Plasma by Bromocresol green (BCG) dye binding metho 3.5-5.7 [facility] Blood estimated average gluc ose determination by estimation from glycated hemoglobinOrdered By: Magno Pichardo on 05-05-2024 Average glucose Estimated from glycated hemoglobin (Bld) [Mass/Vol] Glucose mean value [Mass/volume] in Blood Estimated from glycated hemoglobin [facility] Hemoglobin A1c/Hemoglobin.to fareed in BloodOrdered By: Magno Pichardo on 05-05-2024 HbA1c (Bld) [Mass fraction] Hemoglobin A1c percentage High 4.3-5.6 [facility] Comment on above: Increased risk for d iabetes: 5.7 - 6.4diabetes: >6.4glycemic control for adults with diabetes: <7.0 Hemoglobin [Mass/volume] in BloodOrdered By: Magno Pichardo on 05-05-2024 Hemoglobin (Bld) [Mass/Vol] 12.6 g/dL Normal 11.8-15.4 [facility] Comment on above: Result Comment: PERF ORMED BY: [place] [address] PATHOLOGIST BLACK TOP RAKER BUBBA MERIDA M.D. Performed By: #### B MP, CBC #### [facility] [address] [place] [id number] [place] Hemoglobin (Bld) [Mass/Vol] Hemoglobin [Mass/volume] in Blood 11.8-15.4 [facility] MRSA Cultureon 05-05-2024 MRSA Culture MRSA Culture Results No MRSA Isolated 2 Days PERFORMED BY: [place] [address] PATHOLOGIST BLACK TOP RAKER BUBBA MERIDA M.D. Normal [facility] Comment on above: Performed By: #### B MP, CBC #### [place] [id number] [facility] Vitamin D 25 Hydroxy Totalon 05-05-2024 Vitamin D 25 Hydroxy Total 28.4 ng/mL Low 30-100 [facility] Comment on above: Result Comment: HEATH MIN D STATUS 25(OH)VITAMIN D RANGE (ng/mL) Deficient <20 Insufficient 20 to <30 Sufficient 30 to 100 Reference: Joanne Johnston, Jayjay ESPOSITO, et al. Evaluation,treatment, and prevention of vitamin D deficiency; an Endocrine Society clinical practice guideline. JCEM. 2010; 96(7):1911-30. PERFORMED BY: [place] [address] PATHOLOGIST BLACK TOP RAKER BUBBA MERIDA M.D. Performed By: #### B MP, CBC #### [place] [id number] [facility] Vitamin D+Metabolites [Mass/ volume] in Serum or PlasmaOrdered By: Magno Pichardo on 05-05-2024 Vitamin D+Metabolites [Mass/Vol] 28.4 ng/mL Low 30-100 [facility] Comment on above: VITAMIN D STATUS 25( [place])VITAMIN D RANGE (ng/mL) Deficient <20 Insufficient 20 to <30Sufficient 30 to 100Reference: Joanne Johnston, Jayjay ESPOSITO, et al. Evaluation,treatment, and prevention of vitamin D deficiency; an Endocrine Society clinical practice guideline. JCEM. 2010; 96(7):1911-30. Vitamin D+Metabolites [Mass/Vol] Vitamin D+Metabolites [Mass/volume] in Serum or Plasma Low 30-100 [facility] Comment on above: VITAMIN D STATUS 25( [place])VITAMIN D RANGE (ng/mL) Deficient <20 Insufficient 20 to <30Sufficient 30 to 100Reference: Joanne Johnston, Jayjay ESPOSITO, et al. Evaluation,treatment, and prevention of vitamin D deficiency; an Endocrine Society clinical practice guideline. JCEM. 2010; 96(7):1911-30. Wound methicillin resistant Staphylococcus aureus (MRSA) cultureOrdered By: Magno Pichardo on 05-05-2024 MRSA isol Org specific cx Ql (Unsp spec) Wound methicillin resistant Staphylococcus aureus (MRSA) culture [facility] Respiratory specimen 2019 no enrrique coronavirus RNA detection by probe and target amplifion 04-15-2024 SARS-CoV-2 (COVID-19) RNA KEYON+probe Ql (Resp) Positive [facility] SARS-CoV-2 (COVID-19) RNA KEYON+probe Ql (Resp) Respiratory specimen 2019 novel coronavirus RNA detection by probe and target amplifi [facility] Influenza virus B Ag [Presen ce] in Upper respiratory specimen by Rapid immunoassayon 03-12-2024 FLUBV Ag IA.rapid Ql (Nph) Negative [facility] No Panel Informationon 03-12 Influenza Type A (Rapid) Negative [facility] POC SARS CoV-2 Antigen Negative [facility] Optical coherence tomography study reporton 02-23-2024 [facility] Radiology Study observation (narrative) [facility] XR hip LT min 2V(w/wo pelvis )*on 02-19-2024 XR hip LT min 2V(w/wo pelvis)* [facility] [address] [place] [address] XRay Report Signed Patient: Ashley Brown MR#: [id number] 1 : 1940 Acct:[id number] Age/Sex: 83 / F ADM Date: 02/19/24 Loc: [facility] Room: Type: [facility] Attending Dr: Magno Pichardo II, MD Copies to: Magno Pichardo MD Ordering Provider: Magno Pichardo MD Date of Service: 02/19/24 XR/XR hip LT min 2V(w/wo pelvis)*: M25.552 - Pain in left hip LEFT HIP - 2 views: CLINICAL HISTORY: Left hip pain and weakness for months. COMPARISON: None FINDINGS: Severe degenerative changes of the left hip without acute bony process. Moderate degenerative changes of the right hip. Additional degenerative changes involving the visualized low er lumbar spine and SI joints. XR/XR hip LT min 2V(w/wo pelvis)* IMPRESSION: SEVERE LEFT AND MODERATE RIGHT DEGENERATIVE CHANGES OF THE HIPS WITHOUT ACUTE BONY PROCESS.. Impression dictated by: Dilip Vickers Jr., D.O.02/19/2024 3:36 PM Dictation Location: [place] [address] Transcribed By: [facility] 02/19/24 1536 Dictated By: Dilip Vickers Jr, DO 02/19/24 1535 Signed By: 02/19/24 1536 Normal [facility] Cholesterol in LDL Calc [Mas s/Vol]on 02-04-2024 Cholesterol in LDL [Mass/Vol] 69.0 mg/dL [facility] Comment on above: <100 mg/dl [id number] 0-129 mg/dl NEAR OR ABOVE [id number] mg/dl BORDERLINE [id number] mg/dl HIGH>190 mg/dl VERY HIGH Cholesterol in VLDL Calc [Ma ss/Vol]on 02-04-2024 Cholesterol in VLDL [Mass/Vol] 16.6 mg/dL [facility] Globulin Calc (S) [Mass/Vol] on 02-04-2024 Globulin (S) [Mass/Vol] 3.4 g/dL [facility] Laboratory - Chemistry and C hemistry - challengeon 02-04-2024 Albumin [Mass/Vol] 3.5 g/dL 3.4-5.0 [facility] ALP [Catalytic activity/Vol] 84 U/L 46-116 [facility] ALT [Catalytic activity/Vol] 23 U/L 14-59 [facility] AST [Catalytic activity/Vol] 20 U/L 15-37 [facility] Bilirubin [Mass/Vol] 0.5 mg/dL 0.2-1.0 [facility] Bilirubin.direct [Mass/Vol] 0.1 mg/dL 0.0-0.2 [facility] Cholesterol [Mass/Vol] 163 mg/dL <=200 [facility] Cholesterol in HDL [Mass/Vol] 78 mg/dL High 40-60 [facility] Comment on above: > or =60 mg/dl - LOW CARDIOVASCULAR RISK<40 mg/dl - HIGH CARDIOVASCULAR RISK Protein [Mass/Vol] 6.9 g/dL 6.4-8.2 [facility] Triglyceride [Mass/Vol] 83 mg/dL <=150 [facility] Office Visiton 02-04-2024 Follow-up visit [id number] Ashley Brown 1940 F Date Provider Department Center 02/04/2024 JEREMIAS JONES [facility] Family History Problem Relation Age of Onset Coronary artery disease Father Other Father Family Status - Relation Status Age at Father Level of Service:[address] [place] OFFICE/OUTPATIENT ESTABLISHED MOD MDM 30 MIN Normal [facility] Serum or plasma albumin/glob ulin mass ratioon 02-04-2024 Albumin/Globulin [Mass ratio] 1.0 {ratio} [facility] Serum or plasma total choles terol/high density lipoprotein (HDL) cholesterol mass marivel 02-04-2024 Cholesterol.total/Cho lesterol in HDL [Mass ratio] 2.1 {ratio} [facility] Comment on above: 3.3 - 4.4 LOW RISK4. 4 - 7.1 AVERAGE RISK7.1 - 11.0 MODERATE RISK>11.0 HIGH RISK Basophils Auto (Bld) [#/Vol] on 12-20-2023 Basophils (Bld) [#/Vol] 0.1 10 3/uL 0.0-0.1 [facility] Basophils/100 WBC Auto (Bld) on 12-20-2023 Basophils/100 WBC (Bld) 1.1 % 0.2-2.0 [facility] Eosinophils/100 WBC Auto (Bl d)on 12-20-2023 Eosinophils/100 WBC (Bld) 3.2 % 0.9-7.0 [facility] Erythrocyte distribution wid th Auto (RBC) [Ratio]on 12-20-2023 Erythrocyte distribution width (RBC) [Ratio] 12.4 % 11.0-15.0 [facility] Estimated glomerular filtrat ion rate (GFR) non- Americanon 12-20-2023 GFR/1.73 sq M.predicted among non-blacks MDRD (S/P/Bld) [Vol rate/Area] mL/min/{1.73_m2} >=60 [facility] Globulin Calc (S) [Mass/Vol] on 12-20-2023 Globulin (S) [Mass/Vol] 3.6 g/dL [facility] Hematocrit Auto (Bld) [Volum e fraction]on 12-20-2023 Hematocrit (Bld) [Volume fraction] 39.4 % 36.0-48.0 [facility] Hemoglobin [Mass/volume] in Bloodon 12-20-2023 Hemoglobin (Bld) [Mass/Vol] 12.4 g/dL 12.0-16.0 [facility] Laboratory - Chemistry and C hemistry - challengeon 12-20-2023 Albumin [Mass/Vol] 3.4 g/dL 3.4-5.0 [facility] ALP [Catalytic activity/Vol] 86 U/L 46-116 [facility] ALT [Catalytic activity/Vol] 21 U/L 14-59 [facility] AST [Catalytic activity/Vol] 21 U/L 15-37 [facility] Bilirubin [Mass/Vol] 0.5 mg/dL 0.2-1.0 [facility] Calcium [Mass/Vol] 9.0 mg/dL 8.5-10.1 [facility] Chloride [Moles/Vol] 105 mmol/L 98-107 [facility] CO2 [Moles/Vol] 25.9 mmol/L 21.0-32.0 [facility] Creatinine [Mass/Vol] 0.83 mg/dL 0.55-1.02 [facility] GFR/1.73 sq M.predicted MDRD (S/P/Bld) [Vol rate/Area] mL/min/{1.73_m2} >=60 [facility] Glucose [Mass/Vol] 88 mg/dL 74-106 [facility] Potassium [Moles/Vol] 4.3 mmol/L 3.5-5.1 [facility] Protein [Mass/Vol] 7.0 g/dL 6.4-8.2 [facility] Sodium [Moles/Vol] 140 mmol/L 136-145 [facility] Urea nitrogen [Mass/Vol] 16.0 mg/dL 7.0-18.0 [facility] Urea nitrogen/Creatinine [Mass ratio] 19.3 mg/mg [facility] Laboratory - Hematology and Cell countson 12-20-2023 Immature granulocytes/100 WBC (Bld) 0.2 % 0.0-0.5 [facility] Leukocytes [#/volume] correc alvaro for nucleated erythrocytes in Blood by Automated counon 12-20-2023 WBC corrected for nucl RBC Auto (Bld) [#/Vol] 6.2 10 3/uL 4.0-11.0 [facility] Lymphocytes Auto (Bld) [#/Vo l]on 12-20-2023 Lymphocytes (Bld) [#/Vol] 0.8 10 3/uL Low 1.2-3.8 [facility] Lymphocytes/100 WBC Auto (Bl d)on 12-20-2023 Lymphocytes/100 WBC (Bld) 12.4 % Low 20.5-60.0 [facility] MCH Auto (RBC) [Entitic mass ]on 12-20-2023 MCH (RBC) [Entitic mass] 31.1 pg 26.7-34.0 [facility] MCHC Auto (RBC) [Mass/Vol]on 12-20-2023 MCHC (RBC) [Mass/Vol] 31.5 g/dL 29.9-35.2 [facility] MCV Auto (RBC) [Entitic vol] on 12-20-2023 MCV (RBC) [Entitic vol] 98.7 fL 81.0-99.0 [facility] Monocytes Auto (Bld) [#/Vol] on 12-20-2023 Monocytes (Bld) [#/Vol] 0.5 10 3/uL 0.3-0.8 [facility] Monocytes/100 WBC Auto (Bld) on 12-20-2023 Monocytes/100 WBC (Bld) 8.4 % 1.7-12.0 [facility] Neutrophils Auto (Bld) [#/Vo l]on 12-20-2023 Neutrophils (Bld) [#/Vol] 4.6 10 3/uL 1.4-6.5 [facility] Neutrophils/100 WBC Auto (Bl d)on 12-20-2023 Neutrophils/100 WBC (Bld) 74.7 % 43.0-75.0 [facility] No Panel Informationon 12-19 Eosinophils # (Auto) 0.2 10 3/uL 0.0-0.7 [facility] Immature Granulocyte # (Auto) 0.01 10 3/uL 0.00-0.03 [facility] Platelet mean volume Auto (B ld) [Entitic vol]on 12-20-2023 Platelet mean volume (Bld) [Entitic vol] 10.5 fL 9.5-13.5 [facility] Platelets Auto (Bld) [#/Vol] on 12-20-2023 Platelets (Bld) [#/Vol] 275 10 3/uL 150-450 [facility] RBC Auto (Bld) [#/Vol]on RBC (Bld) [#/Vol] 3.99 10 6/uL Low 4.20-5.40 [facility] Serum or plasma albumin/glob ulin mass ratioon 12-20-2023 Albumin/Globulin [Mass ratio] 0.9 {ratio} [facility] Serum or plasma anion gap de terminationon 12-20-2023 Anion gap [Moles/Vol] 13.4 mmol[facility] 2[facility]on 11-19-2023 XR knee RT 2V [facility] [address] [place] [address] XRay Report Signed Patient: Ashley Brown MR#: [id number] 1 : 1940 Acct:[id number] Age/Sex: 82 / F ADM Date: 11/19/23 Loc: [facility] Room: Type: [facility] Attending Dr: Magno Pichardo II, MD Copies to: Magno Pichardo MD Ordering Provider: Magno Pichardo MD Date of Service: 11/19/23 XR/XR tibia fibula RT 2V*: 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 She is agreeable to start Zetia and have repeat labs in 2-3 months. She verbalized understanding. Normal [facility] 36 Regarding lipid pane l result from 11/08/2023: Odilia Mccallum, ADRYAN Figueroa, SHELTON Please let her know her bad cholesterol level, the LDL is above goal. She is at 80. Need to be less than 70, if can get below 55 even better. Recommend we start zetia 10mg daily since she cannot tolerate higher dose of statin and repeat lipids/LFTs in 2-3 months. Thanks! LM for patient asking her to return my call. Normal [facility] Orders Onlyon 11-17-2023 Orders Only [id number] Ashley Brown 1940 F Date Provider Department Center 11/17/2023 Tristin8-PETER FIGUEROA [facility]IAN[facility] Family History Problem Relation Age of Onset Coronary artery disease Father Other Father Family Status - Relation Status Age at Father Normal [facility] Cholesterol in LDL Calc [Mas s/Vol]on 11-08-2023 Cholesterol in LDL [Mass/Vol] 80.0 mg/dL [facility] Comment on above: <100 mg/dl [id number] 0-129 mg/dl NEAR OR ABOVE [id number] mg/dl BORDERLINE [id number] mg/dl HIGH>190 mg/dl VERY HIGH Cholesterol in VLDL Calc [Ma ss/Vol]on 11-08-2023 Cholesterol in VLDL [Mass/Vol] 19.2 mg/dL [facility] Laboratory - Chemistry and C hemistry - challengeon 11-08-2023 Cholesterol [Mass/Vol] 184 mg/dL <=200 [facility] Cholesterol in HDL [Mass/Vol] 85 mg/dL 40-60 [facility] Comment on above: > or =60 mg/dl - LOW CARDIOVASCULAR RISK<40 mg/dl - HIGH CARDIOVASCULAR RISK Triglyceride [Mass/Vol] 96 mg/dL <=150 [facility] Serum or plasma total choles terol/high density lipoprotein (HDL) cholesterol mass marivel 11-08-2023 Cholesterol.total/Cho lesterol in HDL [Mass ratio] 2.2 {ratio} [facility] Comment on above: 3.3 - 4.4 LOW RISK4. 4 - 7.1 AVERAGE RISK7.1 - 11.0 MODERATE RISK>11.0 HIGH RISK Office Visiton 11-04-2023 Follow-up visit [id number] Ashley Brown 1940 F Date Provider Department Center 11/04/2023 ODILIA SERVIN [facility] Family History Problem Relation Age of Onset Coronary artery disease Father Other Father Family Status - Relation Status Age at Father Level of Service:35984 [place] OFFICE/OUTPATIENT ESTABLISHED MOD MDM 30 MIN Normal [facility] XR knee RT 3V - NOT FOR ER U [place] 10-08-2023 XR knee RT 3V - NOT FOR ER USE [facility] [address] [place] [address] XRay Report Signed Patient: Ashley Brown MR#: [id number] 1 : 1940 Acct:[id number] Age/Sex: 82 / F ADM Date: 10/08/23 Loc: [facility] Room: Type: [facility] Attending Dr: Magno Pichardo II, MD [...] Richard Oliver M.D.10/08/2023 2:15 PM Dictation Location: [place] [address] Transcribed By: [facility] 10/08/23 141 Dictated By: Richard Oliver DO 10/08/231412 Signed By: 10/08/23 141 Normal [facility] Alanine aminotransferase [En zymatic activity/volume] in Serum or PlasmaOrdered By: Heidi Mes[place] on 09-08-2023 ALT [Catalytic activity/Vol] 99 U/L High 7-52 [facility] Comment on above: Performed By: #### B MP, CBC #### [address] Albumin [Mass/volume] in Ser um or Plasma by Bromocresol green (BCG) dye binding methoOrdered By: Heidi Mesa on 09-08-2023 Albumin BCG dye [Mass/Vol] 3.4 g/dL 3.5-5.7 [facility] Alkaline phosphatase [Enzyma tic activity/volume] in Serum or PlasmaOrdered By: Heidi Mesa on 09-08-2023 ALP [Catalytic activity/Vol] 125 U/L High 34-104 [facility] Comment on above: Performed By: #### B MP, CBC #### [address] Aspartate aminotransferase [ Enzymatic activity/volume] in Serum or PlasmaOrdered By: Heidi Mesa on 09-08-2023 AST [Catalytic activity/Vol] 71 U/L High 13-39 [facility] Comment on above: Performed By: #### B MP, CBC #### [address] Automated basophil %Ordered By: Heidi Mesa on 09-08-2023 Basophils/100 WBC (Bld) 1.3 % Normal . [facility] Comment on above: Performed By: #### B MP, CBC #### [address] Automated basophil countOrde red By: Heidi Mesa on 09-08-2023 Basophils (Bld) [#/Vol] 0.1 10*3/uL Normal 0.0-0.2 [facility] Comment on above: Result Comment: PERF ORMED BY: [place] [address] PATHOLOGIST BLACK TOP RAKER BUBBA MERIDA M.D. Performed By: #### B MP, CBC #### [address] Automated blood monocyte cou ntOrdered By: Heidi Mesa on 09-08-2023 Monocytes (Bld) [#/Vol] 0.7 10*3/uL Normal 0.0-0.8 [facility] Comment on above: Performed By: #### B MP, CBC #### [facility] [address] Automated eosinophil %Ordere d By: Heidi Moshe on 09-08-2023 Eosinophils/100 WBC (Bld) 4.0 % Normal . [facility] Comment on above: Performed By: #### B MP, CBC #### [address] Automated eosinophil countOr dered By: Heidi Moshe on 09-08-2023 Eosinophils (Bld) [#/Vol] 0.3 10*3/uL Normal 0.0-0.45 [facility] Comment on above: Performed By: #### B MP, CBC #### [address] Automated monocyte %Ordered By: Heidi Mesa on 09-08-2023 Monocytes/100 WBC (Bld) 9.5 % Normal . [facility] Comment on above: Performed By: #### B MP, CBC #### [address] Automated neutrophil %Ordere d By: Heidi Mesa on 09-08-2023 Neutrophils/100 WBC (Bld) 54.1 % Normal . [facility] Comment on above: Performed By: #### B MP, CBC #### [address] Basic Metabolic Panelon 08-28 Creatinine Clr Calc Pharmacy 36.34 Normal [facility] Comment on above: Result Comment: PERF ORMED BY: [place] [address] PATHOLOGIST BLACK TOP RAKER BUBBA MERIDA M.D. Performed By: #### B MP, CBC #### [place] [address] [place] GFR/1.73 sq M.predicted MDRD (S/P/Bld) [Vol rate/Area] 52.511 mL/min/{1.73_m2} Normal [facility] Comment on above: Performed By: #### B MP, CBC #### [facility] [address] Bilirubin.total [Mass/volume ] in Serum or PlasmaOrdered By: Heidi Mesa on 09-08-2023 Bilirubin [Mass/Vol] 0.4 mg/dL Normal 0.3-1.0 [facility] Comment on above: Performed By: #### B MP, CBC #### [place] [address] [place] Calcium [Mass/volume] in Ser um or PlasmaOrdered By: Heidi Mesa on 09-08-2023 Calcium [Mass/Vol] 8.5 mg/dL Low 8.6-10.3 [facility] Comment on above: Performed By: #### B MP, CBC #### [address] Carbon dioxide, total [Moles /volume] in Serum or PlasmaOrdered By: Heidi Mesa on 09-08-2023 CO2 [Moles/Vol] 25.7 mmol/L Normal 21.0-31.0 [facility] Comment on above: Performed By: #### B MP, CBC #### [facility] [address] [place] [address] [place] Chloride [Moles/volume] in S tejas or PlasmaOrdered By: Heidi Mesa on 09-08-2023 Chloride [Moles/Vol] 103 mmol/L Normal 98-107 [facility] Comment on above: Performed By: #### B MP, CBC #### [facility] [address] [place] [address] [place] Complete Blood Count Auto Di ffon 09-08-2023 Mean Corpuscular HGB Conc 32.9 g/dL Normal 32.0-35.0 [facility] Comment on above: Performed By: #### B MP, CBC #### [address] NRBC% 0.1 /100{WBC} Normal 0-0.5 [facility] Comment on above: Performed By: #### B MP, CBC #### [address] Comprehensive Metabolic Pane elia 09-08-2023 Albumin [Mass/Vol] 3.4 g/dL Low 3.5-5.7 [facility] Comment on above: Performed By: #### B MP, CBC #### [address] Anion gap [Moles/Vol] 10.0 mmol/L Normal 6.0-15.0 [facility] Comment on above: Performed By: #### B MP, CBC #### [address] Calcium [Mass/Vol] 8.9 mg/dL Normal 8.6-10.3 [facility] Comment on above: Performed By: #### B MP, CBC #### [address] Chloride [Moles/Vol] 104 mmol/L Normal 98-107 [facility] Comment on above: Performed By: #### B MP, CBC #### [address] CO2 [Moles/Vol] 27.4 mmol/L Normal 21.0-31.0 [facility] Comment on above: Performed By: #### B MP, CBC #### [address] Creatinine [Mass/Vol] 0.91 mg/dL Normal 0.60-1.20 [facility] Comment on above: Performed By: #### B MP, CBC #### [address] Creatinine Clr Calc Pharmacy 42.73 Normal [facility] Comment on above: Result Comment: PERF ORMED BY: [place] [address] PATHOLOGIST BLACK TOP RAKER BUBBA MERIDA M.D. Performed By: #### B MP, CBC #### [facility] [address] [place] [address] [place] GFR/1.73 sq M.predicted MDRD (S/P/Bld) [Vol rate/Area] mL/min/{1.73_m2} Normal [facility] Comment on above: Performed By: #### B MP, CBC #### [facility] [address] Glucose [Mass/Vol] 85 mg/dL Normal 70-100 [facility] Comment on above: Result Comment: [place] Glucose Reference Range is dependent on time and content of last meal. Glucose of more than 200 mg/dL in a nonstressed, ambulatory subject supports the diagnosis of Diabetes Mellitus. ADA recommended reference range Performed By: #### B MP, CBC #### [facility] [address] [place] [address] [place] Potassium [Moles/Vol] 4.4 mmol/L Normal 3.5-5.1 [facility] Comment on above: Performed By: #### B MP, CBC #### [facility] [address] [place] [address] [place] Sodium [Moles/Vol] 137 mmol/L Normal 136-145 [facility] Comment on above: Performed By: #### B MP, CBC #### [facility] [address] [place] [address] [place] Urea nitrogen [Mass/Vol] 17 mg/dL Normal 7-25 [facility] Comment on above: Performed By: #### B MP, CBC #### [facility] [address] [place] [id number] [place] Creatinine [Mass/volume] in Serum or PlasmaOrdered By: Heidi Mesa on 09-08-2023 Creatinine [Mass/Vol] 1.07 mg/dL Normal 0.60-1.20 [facility] Comment on above: Performed By: #### B MP, CBC #### [facility] [address] [place] [address] [place] Erythrocyte distribution wid th [Ratio] by Automated countOrdered By: Heidi Mesa on 09-08-2023 Erythrocyte distribution width (RBC) [Ratio] 14.0 % Normal 11.9-15.3 [facility] Comment on above: Performed By: #### B MP, CBC #### [facility] [address] Erythrocytes [#/volume] in B lood by Automated countOrdered By: Heidi Mesa on 09-08-2023 RBC (Bld) [#/Vol] 3.52 10*6/uL Low 3.60-5.00 [facility] Comment on above: Performed By: #### B MP, CBC #### [facility] [address] [place] [address] [place] Glucose [Mass/volume] in Ser um or PlasmaOrdered By: Heidi Mesa on 09-08-2023 Glucose [Mass/Vol] 103 mg/dL High 70-100 [facility] Comment on above: ADA recommended refe rence rangeRandom Glucose Reference Range is dependent on time and content of last meal. Glucose of more than 200 mg/dL in a nonstressed, ambulatory subject supports the diagnosis of Diabetes Mellitus. Result Comment: [place] [facility] Glucose Reference Range is dependent on time and content of last meal. Glucose of more than 200 mg/dL in a nonstressed, ambulatory subject supports the diagnosis of Diabetes Mellitus. ADA recommended reference range Performed By: #### B MP, CBC #### [facility] [address] [place] [address] [place] Hematocrit [Volume Fraction] of Blood by Automated countOrdered By: Heidi Mesa on 09-08-2023 Hematocrit (Bld) [Volume fraction] 34.4 % Normal 34.0-46.4 [facility] Comment on above: Performed By: #### B MP, CBC #### [facility] [address] [place] [address] [place] Hemoglobin [Mass/volume] in BloodOrdered By: Heidi Mesa on 09-08-2023 Hemoglobin (Bld) [Mass/Vol] 11.3 g/dL Low 11.8-15.4 [facility] Comment on above: Performed By: #### B MP, CBC #### [facility] [address] [place] [address] Leukocytes [#/volume] correc alvaro for nucleated erythrocytes in Blood by Automated counOrdered By: Heidi Mesa on 09-08-2023 WBC corrected for nucl RBC Auto (Bld) [#/Vol] 7.3 10*3/uL 3.8-11.6 [facility] Leukocytes [#/volume] in Blo od by Automated countOrdered By: Heidi Mesa on 09-08-2023 WBC (Bld) [#/Vol] 7.3 10*3/uL Normal 3.8-11.6 [facility] Comment on above: Performed By: #### B MP, CBC #### [address] Lymphocytes [#/volume] in Bl ood by Automated countOrdered By: Heidi Mesa on 09-08-2023 Lymphocytes (Bld) [#/Vol] 2.3 10*3/uL Normal 1.00-4.8 [facility] Comment on above: Performed By: #### B MP, CBC #### [address] Lymphocytes/100 leukocytes i n Blood by Automated countOrdered By: Heidi Mesa on 09-08-2023 Lymphocytes/100 WBC (Bld) 31.1 % Normal . [facility] Comment on above: Performed By: #### B MP, CBC #### [place] [address] [place] MCH [Entitic mass] by Automa alvaro countOrdered By: Heidi Msea on 09-08-2023 MCH (RBC) [Entitic mass] 32.2 pg Normal 24.7-34.3 [facility] Comment on above: Performed By: #### B MP, CBC #### [address] MCHC Auto (RBC) [Mass/Vol]Or dered By: Heidi Mesa on 09-08-2023 MCHC (RBC) [Mass/Vol] 32.9 g/dL 32.0-35.0 [facility] MCV [Entitic volume] by Auto mated countOrdered By: Heidi Mesa on 09-08-2023 MCV (RBC) [Entitic vol] 97.7 fL Normal 80-100 [facility] Comment on above: Performed By: #### B MP, CBC #### [address] Neutrophils [#/volume] in Bl ood by Automated countOrdered By: Heidi Mesa on 09-08-2023 Neutrophils (Bld) [#/Vol] 4.0 10*3/uL Normal 1.8-7.7 [facility] Comment on above: Performed By: #### B MP, CBC #### [address] No Panel InformationOrdered By: Heidi Mesa on 09-08-2023 Estimated GFR (CKD-EPI) 52.511 mL/Min [facility] Creatinine Clearance (Chem 36.34 [facility] Nucleated erythrocytes [Pres ence] in Blood by Automated countOrdered By: Heidi Mesa on 09-08-2023 Nucleated RBC Auto Ql (Bld) 0.1 /100{WBC} 0-0.5 [facility] Platelet mean volume [Entiti c volume] in Blood by Automated countOrdered By: Heidi Mesa on 09-08-2023 Platelet mean volume (Bld) [Entitic vol] 8.0 fL Normal 6.3-10.7 [facility] Comment on above: Performed By: #### B MP, CBC #### [address] Platelets [#/volume] in Bloo d by Automated countOrdered By: Heidi Mesa on 09-08-2023 Platelets (Bld) [#/Vol] 419 10*3/uL Normal 150-450 [facility] Comment on above: Performed By: #### B MP, CBC #### [address] Potassium [Moles/volume] in Serum or PlasmaOrdered By: Heidi Mesa on 09-08-2023 Potassium [Moles/Vol] 3.6 mmol/L Normal 3.5-5.1 [facility] Comment on above: Performed By: #### B MP, CBC #### [address] Protein [Mass/volume] in Ser um or PlasmaOrdered By: Heidi Mesa on 09-08-2023 Protein [Mass/Vol] 6.3 g/dL Low 6.4-8.9 [facility] Comment on above: Performed By: #### B MP, CBC #### [address] Serum globulin measurement b y calculation (mass/volume)Ordered By: Heidi Mesa on 09-08-2023 Globulin (S) [Mass/Vol] 2.9 g/dL [facility] Comment on above: Performed By: #### B MP, CBC #### [address] Serum or plasma albumin/glob ulin mass ratioOrdered By: Heidi Mesa on 09-08-2023 Albumin/Globulin [Mass ratio] 1.2 {ratio} [facility] Comment on above: Performed By: #### B MP, CBC #### [address] Serum or plasma anion gap de terminationOrdered By: Heidi Mesa on 09-08-2023 Anion gap [Moles/Vol] 10.9 mmol/L Normal 6.0-15.0 [facility] Comment on above: Performed By: #### B MP, CBC #### [place] [address] [place] Sodium [Moles/volume] in Ser um or PlasmaOrdered By: Heidi Mesa on 09-08-2023 Sodium [Moles/Vol] 136 mmol/L Normal 136-145 [facility] Comment on above: Performed By: #### B MP, CBC #### [address] Urea nitrogen [Mass/volume] in Serum or PlasmaOrdered By: Heidi Mesa on 09-08-2023 Urea nitrogen [Mass/Vol] 20 mg/dL Normal 7-25 [facility] Comment on above: Performed By: #### B MP, CBC #### [facility] [address] [place] [address] Bilirubin.direct [Mass/volum e] in Serum or PlasmaOrdered By: Carol Holland on 09-07-2023 Bilirubin.direct [Mass/Vol] 0.10 mg/dL 0.03-0.18 [facility] Hepatic Panelon 09-07-2023 Albumin [Mass/Vol] 3.7 g/dL Normal 3.5-5.7 [facility] Comment on above: Performed By: #### B MP, CBC #### [address] Albumin/Globulin [Mass ratio] 1.2 {ratio} Normal [facility] Comment on above: Performed By: #### B MP, CBC #### [address] ALP [Catalytic activity/Vol] 128 U/L High 34-104 [facility] Comment on above: Result Comment: PERF ORMED BY: [place] [address] PATHOLOGIST BL[employer]AKER BUBBA MERIDA M.D. Performed By: #### B MP, CBC #### [place] [address] [place] ALT [Catalytic activity/Vol] 126 U/L High 7-52 [facility] Comment on above: Performed By: #### B MP, CBC #### [place] [address] [place] AST [Catalytic activity/Vol] 115 U/L High 13-39 [facility] Comment on above: Performed By: #### B MP, CBC #### [place] [address] [place] Bilirubin [Mass/Vol] 0.5 mg/dL Normal 0.3-1.0 [facility] Comment on above: Performed By: #### B MP, CBC #### [facility] [address] Bilirubin,Indirect 0.4 mg/dL Normal [facility] Comment on above: Performed By: #### B MP, CBC #### [facility] [address] Bilirubin.indirect [Mass/Vol] 0.10 mg/dL Normal 0.03-0.18 [facility] Comment on above: Performed By: #### B MP, CBC #### [address] Globulin (S) [Mass/Vol] 3.2 g/dL Normal [facility] Comment on above: Performed By: #### B MP, CBC #### [address] Protein [Mass/Vol] 6.9 g/dL Normal 6.4-8.9 [facility] Comment on above: Performed By: #### B MP, CBC #### [address] Serum or plasma non-glucuron idated bilirubin measurement (mass/volume)Ordered By: Carol Holland on 09-07-2023 Bilirubin.indirect [Mass/Vol] 0.4 mg/dL [facility] US venous duplex LE RTon US venous duplex LE RT [facility] [place] [address] Ultrasound Report Signed Patient: Ashley Brown MR#: [id number] 1 : 1940 Acct:[id number] Age/Sex: 82 / F ADM Date: 09/02/23 Loc: Room: 3Y1354-7 Type: ADM IN Attending Dr: Elijah Mayers [...] Richard Cochran M.D.09/06/2023 9:29 AM Dictation Location: [place] [address] Tech: Yuridia Roth Transcribed By: JESUSITA 09/06/23928 Dictated By: Richard Cochran MD 09/06/23927 Signed By: 09/06/23928 Normal [facility] Complete Blood Count Auto Di ffon 09-03-2023 Basophils (Bld) [#/Vol] 0.0 10*3/uL Normal 0.0-0.2 [facility] Comment on above: Result Comment: PERF ORMED BY: [place] [address] PATHOLOGIST BL[employer]AKER BUBBA MERIDA M.D. Performed By: #### C BC, CMP, PAB #### [place] [address] [place] Basophils/100 WBC (Bld) 0.3 % Normal . [facility] Comment on above: Performed By: #### C BC, CMP, PAB #### [facility] [address] [place] [address] [place] Eosinophils (Bld) [#/Vol] 0.1 10*3/uL Normal 0.0-0.45 [facility] Comment on above: Performed By: #### C BC, CMP, PAB #### [place] [address] [place] Eosinophils/100 WBC (Bld) 0.8 % Normal . [facility] Comment on above: Performed By: #### C BC, CMP, PAB #### [address] Erythrocyte distribution width (RBC) [Ratio] 13.3 % Normal 11.9-15.3 [facility] Comment on above: Performed By: #### C BC, CMP, PAB #### [address] Hematocrit (Bld) [Volume fraction] 34.1 % Normal 34.0-46.4 [facility] Comment on above: Performed By: #### C BC, CMP, PAB #### [address] Hemoglobin (Bld) [Mass/Vol] 11.4 g/dL Low 11.8-15.4 [facility] Comment on above: Performed By: #### C BC, CMP, PAB #### [address] Lymphocytes (Bld) [#/Vol] 0.8 10*3/uL Low 1.00-4.8 [facility] Comment on above: Performed By: #### C BC, CMP, PAB #### [address] Lymphocytes/100 WBC (Bld) 10.7 % Normal . [facility] Comment on above: Performed By: #### C BC, CMP, PAB #### [address] MCH (RBC) [Entitic mass] 32.4 pg Normal 24.7-34.3 [facility] Comment on above: Performed By: #### C BC, CMP, PAB #### [address] MCV (RBC) [Entitic vol] 97.5 fL Normal 80-100 [facility] Comment on above: Performed By: #### C BC, CMP, PAB #### [address] Mean Corpuscular HGB Conc 33.3 g/dL Normal 32.0-35.0 [facility] Comment on above: Performed By: #### C BC, CMP, PAB #### [facility] [address] [place] [address] [place] Monocytes (Bld) [#/Vol] 0.9 10*3/uL High 0.0-0.8 [facility] Comment on above: Performed By: #### C BC, CMP, PAB #### [facility] [address] [place] [address] [place] Monocytes/100 WBC (Bld) 11.5 % Normal . [facility] Comment on above: Performed By: #### C BC, CMP, PAB #### [facility] [address] [place] [address] [place] Neutrophils (Bld) [#/Vol] 6.0 10*3/uL Normal 1.8-7.7 [facility] Comment on above: Performed By: #### C BC, CMP, PAB #### [facility] [address] [place] [address] [place] Neutrophils/100 WBC (Bld) 76.7 % Normal . [facility] Comment on above: Performed By: #### C BC, CMP, PAB #### [facility] [address] [place] [address] [place] NRBC% 0.0 /100{WBC} Normal 0-0.5 [facility] Comment on above: Performed By: #### C BC, CMP, PAB #### [facility] [address] [place] [address] [place] Platelet mean volume (Bld) [Entitic vol] 8.2 fL Normal 6.3-10.7 [facility] Comment on above: Performed By: #### C BC, CMP, PAB #### [facility] [address] [place] [address] [place] Platelets (Bld) [#/Vol] 296 10*3/uL Normal 150-450 [facility] Comment on above: Performed By: #### C BC, CMP, PAB #### [facility] [address] [place] [address] [place] RBC (Bld) [#/Vol] 3.50 10*6/uL Low 3.60-5.00 [facility] Comment on above: Performed By: #### C BC, CMP, PAB #### [address] WBC (Bld) [#/Vol] 7.8 10*3/uL Normal 3.8-11.6 [facility] Comment on above: Performed By: #### C BC, CMP, PAB #### [address] Comprehensive Metabolic Pane elia 09-03-2023 Albumin [Mass/Vol] 3.3 g/dL Low 3.5-5.7 [facility] Comment on above: Performed By: #### C BC, CMP, PAB #### [address] Albumin/Globulin [Mass ratio] 1.5 {ratio} Normal [facility] Comment on above: Performed By: #### C BC, CMP, PAB #### [address] ALP [Catalytic activity/Vol] 178 U/L High 34-104 [facility] Comment on above: Performed By: #### C BC, CMP, PAB #### [address] ALT [Catalytic activity/Vol] 258 U/L High 7-52 [facility] Comment on above: Performed By: #### C BC, CMP, PAB #### [address] Anion gap [Moles/Vol] 11.9 mmol/L Normal 6.0-15.0 [facility] Comment on above: Performed By: #### C BC, CMP, PAB #### [address] AST [Catalytic activity/Vol] 273 U/L High 13-39 [facility] Comment on above: Performed By: #### C BC, CMP, PAB #### [address] Bilirubin [Mass/Vol] 0.4 mg/dL Normal 0.3-1.0 [facility] Comment on above: Performed By: #### C BC CMP, PAB #### [address] Calcium [Mass/Vol] 8.8 mg/dL Normal 8.6-10.3 [facility] Comment on above: Performed By: #### C BC CMP, PAB #### [address] Chloride [Moles/Vol] 101 mmol/L Normal 98-107 [facility] Comment on above: Performed By: #### C ABEL CMP, PAB #### [address] CO2 [Moles/Vol] 28.6 mmol/L Normal 21.0-31.0 [facility] Comment on above: Performed By: #### C BC CMP, PAB #### [address] Creatinine [Mass/Vol] 0.78 mg/dL Normal 0.60-1.20 [facility] Comment on above: Performed By: #### C ABEL CMP, PAB #### [address] Creatinine Clr Calc Pharmacy 47.47 Normal [facility] Comment on above: Performed By: #### C BC CMP, PAB #### [address] GFR/1.73 sq M.predicted MDRD (S/P/Bld) [Vol rate/Area] mL/min/{1.73_m2} Normal [facility] Comment on above: Performed By: #### C BC CMP, PAB #### [address] Globulin (S) [Mass/Vol] 2.2 g/dL Normal [facility] Comment on above: Performed By: #### C BC CMP, PAB #### [place] [address] [place] Glucose [Mass/Vol] 117 mg/dL High 70-100 [facility] Comment on above: Result Comment: [facility] Glucose Reference Range is dependent on time and content of last meal. Glucose of more than 200 mg/dL in a nonstressed, ambulatory subject supports the diagnosis of Diabetes Mellitus. ADA recommended reference range Performed By: #### C BC, CMP, PAB #### [facility] [address] Potassium [Moles/Vol] 4.5 mmol/L Normal 3.5-5.1 [facility] Comment on above: Performed By: #### C BC, CMP, PAB #### [address] Protein [Mass/Vol] 5.5 g/dL Low 6.4-8.9 [facility] Comment on above: Performed By: #### C BC, CMP, PAB #### [address] Sodium [Moles/Vol] 137 mmol/L Normal 136-145 [facility] Comment on above: Performed By: #### C BC, CMP, PAB #### [address] Urea nitrogen [Mass/Vol] 11 mg/dL Normal 7-25 [facility] Comment on above: Performed By: #### C BC, CMP, PAB #### [address] Prealbumin [Mass/volume] in Serum or PlasmaOrdered By: Elijah Mayers on 09-03-2023 Prealbumin [Mass/Vol] 15.7 mg/dL Low 17.0-34.0 [facility] Comment on above: Result Comment: PERF ORMED BY: [place] [id number] PATHOLOGIST BLACK [employer]AKER BUBBA MERIDA M.D. Performed By: #### C BC, CMP, PAB #### [address] Complete Blood Count Auto Di ffon 09-02-2023 Basophils (Bld) [#/Vol] 0.1 10*3/uL Normal 0.0-0.2 [facility] Comment on above: Result Comment: PERF ORMED BY: [place] [address] PATHOLOGIST BL[employer]AKER BUBBA MERIDA M.D. Performed By: #### B MP, CBC #### [address] Basophils/100 WBC (Bld) 0.9 % Normal . [facility] Comment on above: Performed By: #### B MP, CBC #### [address] Eosinophils (Bld) [#/Vol] 0.2 10*3/uL Normal 0.0-0.45 [facility] Comment on above: Performed By: #### B MP, CBC #### [address] Eosinophils/100 WBC (Bld) 2.5 % Normal . [facility] Comment on above: Performed By: #### B MP, CBC #### [address] Erythrocyte distribution width (RBC) [Ratio] 13.4 % Normal 11.9-15.3 [facility] Comment on above: Performed By: #### B MP, CBC #### [address] Hematocrit (Bld) [Volume fraction] 32.3 % Low 34.0-46.4 [facility] Comment on above: Performed By: #### B MP, CBC #### [address] Hemoglobin (Bld) [Mass/Vol] 10.9 g/dL Low 11.8-15.4 [facility] Comment on above: Performed By: #### B MP, CBC #### [place] [address] [place] Lymphocytes (Bld) [#/Vol] 0.7 10*3/uL Low 1.00-4.8 [facility] Comment on above: Performed By: #### B MP, CBC #### [address] Lymphocytes/100 WBC (Bld) 9.5 % Normal . [facility] Comment on above: Performed By: #### B MP, CBC #### [address] MCH (RBC) [Entitic mass] 32.7 pg Normal 24.7-34.3 [facility] Comment on above: Performed By: #### B MP, CBC #### [address] MCV (RBC) [Entitic vol] 96.7 fL Normal 80-100 [facility] Comment on above: Performed By: #### B MP, CBC #### [address] Mean Corpuscular HGB Conc 33.8 g/dL Normal 32.0-35.0 [facility] Comment on above: Performed By: #### B MP, CBC #### [place] [address] [place] Monocytes (Bld) [#/Vol] 0.7 10*3/uL Normal 0.0-0.8 [facility] Comment on above: Performed By: #### B MP, CBC #### [address] Monocytes/100 WBC (Bld) 9.5 % Normal . [facility] Comment on above: Performed By: #### B MP, CBC #### [address] Neutrophils (Bld) [#/Vol] 5.8 10*3/uL Normal 1.8-7.7 [facility] Comment on above: Performed By: #### B MP, CBC #### [address] Neutrophils/100 WBC (Bld) 77.6 % Normal . [facility] Comment on above: Performed By: #### B MP, CBC #### [address] NRBC% 0.0 /100{WBC} Normal 0-0.5 [facility] Comment on above: Performed By: #### B MP, CBC #### [address] Platelet mean volume (Bld) [Entitic vol] 8.1 fL Normal 6.3-10.7 [facility] Comment on above: Performed By: #### B MP, CBC #### [address] Platelets (Bld) [#/Vol] 272 10*3/uL Normal 150-450 [facility] Comment on above: Performed By: #### B MP, CBC #### [address] RBC (Bld) [#/Vol] 3.34 10*6/uL Low 3.60-5.00 [facility] Comment on above: Performed By: #### B MP, CBC #### [address] WBC (Bld) [#/Vol] 7.5 10*3/uL Normal 3.8-11.6 [facility] Comment on above: Performed By: #### B MP, CBC #### [address] ABO/Rh Retypeon 09-01-2023 ABO/RH Recheck Result Positive Normal [facility] Comment on above: Result Comment: PERF ORMED BY: [place] [id number] PATHOLOGIST BL[employer]AKER BUBBA MERIDA M.D. Basic Metabolic Panelon Anion gap [Moles/Vol] 11.0 mmol/L Normal 6.0-15.0 Th e [facility] Comment on above: Performed By: #### B MP, CBC #### [address] Calcium [Mass/Vol] 9.3 mg/dL Normal 8.6-10.3 [facility] Comment on above: Performed By: #### B MP, CBC #### [address] Chloride [Moles/Vol] 105 mmol/L Normal 98-107 [facility] Comment on above: Performed By: #### B MP, CBC #### [address] CO2 [Moles/Vol] 25.7 mmol/L Normal 21.0-31.0 [facility] Comment on above: Performed By: #### B MP, CBC #### [address] Creatinine [Mass/Vol] 0.81 mg/dL Normal 0.60-1.20 [facility] Comment on above: Performed By: #### B MP, CBC #### [place] [address] [place] Creatinine Clr Calc Pharmacy 47.31 Normal [facility] Comment on above: Result Comment: PERF ORMED BY: [place] [address] PATHOLOGIST BL[employer]AKER BUBBA MERIDA M.D. Performed By: #### B MP, CBC #### [place] [address] [place] GFR/1.73 sq M.predicted MDRD (S/P/Bld) [Vol rate/Area] mL/min/{1.73_m2} Normal [facility] Comment on above: Performed By: #### B MP, CBC #### [address] Glucose [Mass/Vol] 81 mg/dL Normal 70-100 [facility] Comment on above: Result Comment: [place] Glucose Reference Range is dependent on time and content of last meal. Glucose of more than 200 mg/dL in a nonstressed, ambulatory subject supports the diagnosis of Diabetes Mellitus. ADA recommended reference range Performed By: #### B MP, CBC #### [facility] [address] Potassium [Moles/Vol] 3.7 mmol/L Normal 3.5-5.1 [facility] Comment on above: Performed By: #### B MP, CBC #### [facility] [address] Sodium [Moles/Vol] 138 mmol/L Normal 136-145 [facility] Comment on above: Performed By: #### B MP, CBC #### [facility] [address] Urea nitrogen [Mass/Vol] 11 mg/dL Normal 7-25 [facility] Comment on above: Performed By: #### B MP, CBC #### [facility] [address] [place] [address] Elia 09-01-2023 L Specimen: [id number] Received: 09/02/23 Status: MENG Villegas Num: [id number] Spec Type: Surgical Subm Dr: Magno Pichardo MD Tissues: A Joint/Knee (RT KNEE) Procedures: HE, Gross/Micro L4, Decalcification Age/ Patient Sex Location Account Attending Physician Ashley Brown 82/F 4N [id number] Magno Pichardo MD SPEC NUM: [id number] RECD: 09/02/23 STATUS: MENG LOPEZAshlie NUM: [id number] GINA: 09/01/[address]: Magno Pichardo MD ENTERED: 09/02/23 [facility] DR: SPEC TYPE: Surgical DEPT: S ORDERED: [...] is taken. Gross examination only. CPT Codes 42628 Gross Photo Specimen: [id number] Received: 09/02/23 Status: MENG iVllegas Num: [id number] Spec Type: Surgical Subm Dr: Magno Pichardo MD Tissues: A Joint/Knee (RT KNEE) Procedures: SISSY, Gross/Micro L4, Decalcification Patient: MingoAshley [id number] (Continued) Signed (signature on file) Nik Garza MD 09/10/23 1049 Normal [facility] XR knee RT 2Von 09-01-2023 XR knee RT 2V [facility] [address] [place] [address] XRay Report Signed Patient: Ashley Brown MR#: [id number] 1 : 1940 Acct:[id number] Age/Sex: 82 / F ADM Date: 09/01/23 Loc: Room: [address] [place] [address] Type: ADM IN Attending Dr: Magno Pichardo [...] Richard Oliver M.D.09/01/2023 3:20 PM Dictation Location: [place] [address] Transcribed By: [facility] 09/01/23 1520 Dictated By: Richard Oliver DO 09/01/23 1517 Signed By: 09/01/23 1520 Normal [facility] Automated basophil %Ordered By: Magno Pichardo on 08-20-2023 Basophils/100 WBC (Bld) 1.1 % Normal . [facility] Comment on above: Performed By: #### C BC, CMP, PAB #### [address] Automated basophil countOrde red By: Magno Pichardo on 08-20-2023 Basophils (Bld) [#/Vol] 0.1 10*3/uL Normal 0.0-0.2 [facility] Comment on above: Result Comment: PERF ORMED BY: [place] [address] PATHOLOGIST BLACK [employer] RAKER BUBBA MERIDA M.D. Performed By: #### C BC, CMP, PAB #### [address] Automated blood monocyte cou ntOrdered By: Magno Pichardo on 08-20-2023 Monocytes (Bld) [#/Vol] 0.6 10*3/uL Normal 0.0-0.8 [facility] Comment on above: Performed By: #### C BC, CMP, PAB #### [address] Automated eosinophil %Ordere d By: Magno Pichardo on 08-20-2023 Eosinophils/100 WBC (Bld) 3.5 % Normal . [facility] Comment on above: Performed By: #### C BC, CMP, PAB #### [address] Automated eosinophil countOr dered By: Magno Pichardo on 08-20-2023 Eosinophils (Bld) [#/Vol] 0.2 10*3/uL Normal 0.0-0.45 [facility] Comment on above: Performed By: #### C BC, CMP, PAB #### [address] Automated erythrocytes count in urine sediment (number/area)Ordered By: Magno Pichardo on 08-20-2023 RBC Auto (Urine sed) [#/Area] 0-1 [HPF] 0-4 [facility] Automated leukocytes count i n urine sediment (number/area)Ordered By: Magno Pichardo on 08-20-2023 WBC Auto (Urine sed) [#/Area] 10-19 [HPF] 0-4 [facility] Automated monocyte %Ordered By: Magno Pichardo on 08-20-2023 Monocytes/100 WBC (Bld) 9.3 % Normal . [facility] Comment on above: Performed By: #### C BC, CMP, PAB #### [address] Automated neutrophil %Ordere d By: Magno Pichardo on 08-20-2023 Neutrophils/100 WBC (Bld) 66.1 % Normal . [facility] Comment on above: Performed By: #### C BC, CMP, PAB #### [address] Automated urine color determ inationOrdered By: Magno Pichardo on 08-20-2023 Color (U) Yellow Normal Yellow [facility] Comment on above: Order Comment: Name Collection Type:: Clean-Voided Midstream Performed By: #### B MP, CBC #### [address] Basic Metabolic Panelon 08-01 GFR/1.73 sq M.predicted MDRD (S/P/Bld) [Vol rate/Area] mL/min/{1.73_m2} Normal [facility] Comment on above: Performed By: #### C BC, CMP, PAB #### [address] Bilirubin Test strip Ql (U)O rdered By: Magno Pichardo on 08-20-2023 Bilirubin Ql (U) Negative Negative [facility] Calcium [Mass/volume] in Ser um or PlasmaOrdered By: Magno Pichardo on 08-20-2023 Calcium [Mass/Vol] 9.7 mg/dL Normal 8.6-10.3 [facility] Comment on above: Result Comment: PERF ORMED BY: [place] [address] PATHOLOGIST BL[employer] RAKER BUBBA MERIDA M.D. Performed By: #### C BC, CMP, PAB #### [place] [address] [place] Carbon dioxide, total [Moles /volume] in Serum or PlasmaOrdered By: Magno Pichardo on 08-20-2023 CO2 [Moles/Vol] 26.3 mmol/L Normal 21.0-31.0 [facility] Comment on above: Performed By: #### C BC, CMP, PAB #### [place] [address] [place] Chloride [Moles/volume] in S tejas or PlasmaOrdered By: Magno Pichardo on 08-20-2023 Chloride [Moles/Vol] 104 mmol/L Normal 98-107 [facility] Comment on above: Performed By: #### C BC, CMP, PAB #### [address] Complete Blood Count Auto Di ffon 08-20-2023 Mean Corpuscular HGB Conc 34.1 g/dL Normal 32.0-35.0 [facility] Comment on above: Performed By: #### C BC, CMP, PAB #### [address] NRBC% 0.1 /100{WBC} Normal 0-0.5 [facility] Comment on above: Performed By: #### C BC, CMP, PAB #### [address] Creatinine [Mass/volume] in Serum or PlasmaOrdered By: Magno Pichardo on 08-20-2023 Creatinine [Mass/Vol] 0.88 mg/dL Normal 0.60-1.20 [facility] Comment on above: Performed By: #### C BC, CMP, PAB #### [place] [address] [place] Dipstick and Microscopicon 0 08-20-2023 Appearance (U) Clear Normal Clear [facility] Comment on above: Order Comment: Name Collection Type:: Clean-Voided Midstream Performed By: #### B MP, CBC #### [place] [address] [place] Bacteria,Urine None Seen Normal None Seen [facility] Comment on above: Order Comment: Name Collection Type:: Clean-Voided Midstream Performed By: #### B MP, CBC #### [place] [address] [place] Bilirubin,Urine Negative Normal Negative [facility] Comment on above: Order Comment: Name Collection Type:: Clean-Voided Midstream Performed By: #### B MP, CBC #### [place] [id number] [facility] Glucose Ql (U) Normal Normal Normal [facility] Comment on above: Order Comment: Name Collection Type:: Clean-Voided Midstream Performed By: #### B MP, CBC #### [address] Hyaline Casts,Urine None Seen Normal 0-8 [facility] Comment on above: Order Comment: Name Collection Type:: Clean-Voided Midstream Result Comment: PERF ORMED BY: [place] [address] PATHOLOGIST BLACK [employer] RAKER BUBBA MERIDA M.D. Performed By: #### B MP, CBC #### [address] Ketones Ql (U) Negative Normal Negative [facility] Comment on above: Order Comment: Name Collection Type:: Clean-Voided Midstream Performed By: #### B MP, CBC #### [address] Leukocyte esterase Test strip Ql (U) 3+ High Negative [facility] Comment on above: Order Comment: Name Collection Type:: Clean-Voided Midstream Performed By: #### B MP, CBC #### [place] [address] [place] Nitrite,Urine Negative Normal Negative [facility] Comment on above: Order Comment: Name Collection Type:: Clean-Voided Midstream Performed By: #### B MP, CBC #### [place] [id number] [place] Occult Blood,Urine Negative Normal Negative [facility] Comment on above: Order Comment: Name Collection Type:: Clean-Voided Midstream Result Comment: PERF ORMED BY: [place] [address] PATHOLOGIST BLACK [employer] RAKER BUBBA MERIDA M.D. Performed By: #### B MP, CBC #### [place] [address] [place] Protein,Urine Negative Normal Negative [facility] Comment on above: Order Comment: Name Collection Type:: Clean-Voided Midstream Performed By: #### B MP, CBC #### [place] [address] [place] RBC LM.HPF (Urine sed) [#/Area] 0 /[HPF] Normal 0-4 [facility] Comment on above: Order Comment: Name Collection Type:: Clean-Voided Midstream Performed By: #### B MP, CBC #### [place] [address] [place] Specificy [place],Urine 1.008 Normal 1.001-1.03 0 [facility] Comment on above: Order Comment: Name Collection Type:: Clean-Voided Midstream Performed By: #### B MP, CBC #### [address] Squamous Epithelial Cell,Urine 0-1 Normal 0-2 [facility] Comment on above: Order Comment: Name Collection Type:: Clean-Voided Midstream Performed By: #### B MP, CBC #### [address] Urobilinogen,Urine Normal Normal Normal [facility] Comment on above: Order Comment: Name Collection Type:: Clean-Voided Midstream Performed By: #### B MP, CBC #### [place] [address] [place] WBC,Urine 10-19 High 0-4 [facility] Comment on above: Order Comment: Name Collection Type:: Clean-Voided Midstream Performed By: #### B MP, CBC #### [address] ECG 12 lead ECGon 08-20-2023 ECG 12 lead ECG [facility] [address] [place] [address] Electrocardiograph Report Signed Patient: Ashley Brown MR#: [id number] 1 : 1940 Acct:[id number] Age/Sex: 82 / F ADM Date: 08/20/23 Loc: PS Room: Type: [facility] Attending Dr: Magno Pichardo II, MD Ordering [...] previous ECGs available Confirmed by EARL MENENDEZ [facility], DARIUS ([id number]) on 08/20/2023 5:49:37 PM Referred By: MARINO Electronically Signed By:DARIUS CATALAN MD [facility] Transcribed By: FELA Signed By Daron Catalan MD 08/20/23 1749 Normal [facility] Erythrocyte distribution wid th [Ratio] by Automated countOrdered By: Magno Pichardo on 08-20-2023 Erythrocyte distribution width (RBC) [Ratio] 14.3 % Normal 11.9-15.3 [facility] Comment on above: Performed By: #### C BC, CMP, PAB #### [facility] [address] Erythrocytes [#/volume] in B lood by Automated countOrdered By: Magno Pichardo on 08-20-2023 RBC (Bld) [#/Vol] 4.08 10*6/uL Normal 3.60-5.00 [facility] Comment on above: Performed By: #### C BC, CMP, PAB #### [facility] [address] Fructosamineon 08-20-2023 Fructosamine 210 umol/L Normal 0-285 [facility] Comment on above: Result Comment: Publ ished reference interval for apparently healthy subjects between age 20 and 60 is 205 - 285 umol/L and in a poorly controlled diabetic population is 228 - 563 umol/L with a mean of 396 umol/L. Performed at: [address] [id number] [employer] Apprentice: Federioc Guzman PhD, Phone: [phone] PERFORMED BY: [place] [address] PATHOLOGIST BLACK TOP RAKER BUBBA MERIDA M.D. Performed By: #### C CHEKO ROMAN, PAB #### [address] Fructosamine [Moles/volume] in Serum or PlasmaOrdered By: Magno Pichardo on 08-20-2023 Fructosamine [Moles/Vol] 210 umol/L 0-285 [facility] Comment on above: Published reference interval for apparently healthysubjects between age 20 and 60 is 205 - 285 umol/L and in apoorly controlled diabetic population is 228 - 563 umol/Lwith a mean of 396 umol/L.Performed at: [facility] [id number] Director: Federico Guzman PhD, Phone: [phone] Glucose [Mass/volume] in Ser um or PlasmaOrdered By: Magno Pichardo on 08-20-2023 Glucose [Mass/Vol] 81 mg/dL Normal 70-100 [facility] Comment on above: ADA recommended refe rence rangeRandom Glucose Reference Range is dependent on time and content of last meal. Glucose of more than 200 mg/dL in a nonstressed, ambulatory subject supports the diagnosis of Diabetes Mellitus. Result Comment: [place] Glucose Reference Range is dependent on time and content of last meal. Glucose of more than 200 mg/dL in a nonstressed, ambulatory subject supports the diagnosis of Diabetes Mellitus. ADA recommended reference range Performed By: #### C CHEKO ROMAN, PAB #### [place] [address] [place] Hematocrit [Volume Fraction] of Blood by Automated countOrdered By: Magno Pichardo on 08-20-2023 Hematocrit (Bld) [Volume fraction] 39.8 % Normal 34.0-46.4 [facility] Comment on above: Performed By: #### C ABEL, CMP, PAB #### [place] [address] [place] Hemoglobin [Mass/volume] in BloodOrdered By: Magno Pichardo on 08-20-2023 Hemoglobin (Bld) [Mass/Vol] 13.5 g/dL Normal 11.8-15.4 [facility] Comment on above: Performed By: #### C CHEKO ROMAN, PAB #### [address] Ketones Auto test strip (U) [Mass/Vol]Ordered By: Magno Pichardo on 08-20-2023 Ketones (U) [Mass/Vol] Negative Negative [facility] Laboratory - UrinalysisOrder ed By: Magno Pichardo on 08-20-2023 Hyaline casts LM Ql (Urine sed) None seen [LPF] 0-8 [facility] Leukocytes [#/volume] correc alvaro for nucleated erythrocytes in Blood by Automated counOrdered By: Magno Pichardo on 08-20-2023 WBC corrected for nucl RBC Auto (Bld) [#/Vol] 6.6 10*3/uL 3.8-11.6 [facility] Leukocytes [#/volume] in Blo od by Automated countOrdered By: Magno Pichardo on 08-20-2023 WBC (Bld) [#/Vol] 6.6 10*3/uL Normal 3.8-11.6 [facility] Comment on above: Performed By: #### C CHEKO ROMAN, PAB #### [place] [address] [place] Lymphocytes [#/volume] in Bl ood by Automated countOrdered By: Magno Pichardo on 08-20-2023 Lymphocytes (Bld) [#/Vol] 1.3 10*3/uL Normal 1.00-4.8 [facility] Comment on above: Performed By: #### C ABEL, CMP, PAB #### [place] [address] [place] Lymphocytes/100 leukocytes i n Blood by Automated countOrdered By: Magno Pichardo on 08-20-2023 Lymphocytes/100 WBC (Bld) 20.0 % Normal . [facility] Comment on above: Performed By: #### C BC, CMP, PAB #### [facility] [address] MCH [Entitic mass] by Automa alvaro countOrdered By: Magno Pichardo on 08-20-2023 MCH (RBC) [Entitic mass] 33.2 pg Normal 24.7-34.3 [facility] Comment on above: Performed By: #### C BC, CMP, PAB #### [facility] [address] [place] [address] MCHC Auto (RBC) [Mass/Vol]Or dered By: Magno Pichardo on 08-20-2023 MCHC (RBC) [Mass/Vol] 34.1 g/dL 32.0-35.0 [facility] MCV [Entitic volume] by Auto mated countOrdered By: Magno Pichardo on 08-20-2023 MCV (RBC) [Entitic vol] 97.4 fL Normal 80-100 [facility] Comment on above: Performed By: #### C BC, CMP, PAB #### [facility] [address] [place] [address] Neutrophils [#/volume] in Bl ood by Automated countOrdered By: Magno Pichardo on 08-20-2023 Neutrophils (Bld) [#/Vol] 4.4 10*3/uL Normal 1.8-7.7 [facility] Comment on above: Performed By: #### C ABEL, CMP, PAB #### [address] Nitrite Test strip Ql (U)Ord ered By: Magno Pichardo on 08-20-2023 Nitrite Ql (U) Negative Negative [facility] No Panel InformationOrdered By: Magno Pichardo on 08-20-2023 Estimated GFR (CKD-EPI) > 60.0 mL/Min [facility] Creatinine Clearance (Chem N/A [facility] Nucleated erythrocytes [Pres ence] in Blood by Automated countOrdered By: Magno Pichardo on 08-20-2023 Nucleated RBC Auto Ql (Bld) 0.1 /100{WBC} 0-0.5 [facility] PST Type and Screenon 2023 ABO and Rh group Nom (Bld) Blood group O Rh(D) positive Normal [facility] Comment on above: Order Comment: Date of Surgery: [id number] Result Comment: PERF ORMED BY: [place] [address] PATHOLOGIST BLACK TOP RAKER BUBBA MERIDA M.D. Platelet mean volume [Entiti c volume] in Blood by Automated countOrdered By: Magno Pichardo on 08-20-2023 Platelet mean volume (Bld) [Entitic vol] 8.4 fL Normal 6.3-10.7 [facility] Comment on above: Performed By: #### C BC, CMP, PAB #### [place] [address] [place] Platelets [#/volume] in Bloo d by Automated countOrdered By: Magno Pichardo on 08-20-2023 Platelets (Bld) [#/Vol] 326 10*3/uL Normal 150-450 [facility] Comment on above: Performed By: #### C BC, CMP, PAB #### [place] [address] [place] Potassium [Moles/volume] in Serum or PlasmaOrdered By: Magno Pichardo on 08-20-2023 Potassium [Moles/Vol] 3.9 mmol/L Normal 3.5-5.1 [facility] Comment on above: Performed By: #### C BC, CMP, PAB #### [place] [address] [place] Protein Auto test strip (U) [Mass/Vol]Ordered By: Magno Pichardo on 08-20-2023 Protein (U) [Mass/Vol] Negative Negative [facility] Serum or plasma anion gap de terminationOrdered By: Magno Pichardo on 08-20-2023 Anion gap [Moles/Vol] 10.6 mmol/L Normal 6.0-15.0 [facility] Comment on above: Performed By: #### C BC, CMP, PAB #### [place] [address] [place] Sodium [Moles/volume] in Ser um or PlasmaOrdered By: Magno Pichardo on 08-20-2023 Sodium [Moles/Vol] 137 mmol/L Normal 136-145 [facility] Comment on above: Performed By: #### C ABEL, CMP, PAB #### [address] Specific gravity Auto test s trip (U) [Rel density]Ordered By: Magno Pichardo on 08-20-2023 Specific gravity (U) [Rel density] 1.008 1.001-1.03 0 [facility] Squamous epithelial cells de tection in urine sediment by light microscopyOrdered By: Magno Pichardo on 08-20-2023 Epithelial cells.squamous LM Ql (Urine sed) 0-1 [HPF] 0-2 [facility] Urea nitrogen [Mass/volume] in Serum or PlasmaOrdered By: Magno Pichardo on 08-20-2023 Urea nitrogen [Mass/Vol] 19 mg/dL Normal 7-25 [facility] Comment on above: Performed By: #### C ABEL, CMP, PAB #### [address] Urine Cultureon 08-20-2023 Bacteria identified Cx Nom (U) <10,000 colonies/ml mixed bacterial skin contaminants including mixed gram negative bacilli - 2 Days PERFORMED BY: [place] [address] PATHOLOGIST BLACK TOP RAKER BUBBA MERIDA M.D. Normal [facility] Comment on above: Performed By: #### B MP, CBC #### [address] Urine bacteria detection by automated methodOrdered By: Magno Pichardo on 08-20-2023 Bacteria Auto Ql (U) None seen None Seen [facility] Urine clarity by refractomet ry automatedOrdered By: Magno Pichardo on 08-20-2023 Clarity Refractometry automated (U) Clear Clear [facility] Urine culture routineOrdered By: Magno Pichardo on 08-20-2023 Bacteria identified Cx Nom (U) bacilli - 2 Days [facility] Urine glucose measurement by automated test strip (mass/volume)Ordered By: Magno Pichardo on 08-20-2023 Glucose Auto test strip (U) [Mass/Vol] Normal mg/dL Normal [facility] Urine hemoglobin detection b y automated test stripOrdered By: Magno Pichardo on 08-20-2023 Hemoglobin Auto test strip Ql (U) Negative Negative [facility] Urine leukocyte esterase det ection by automated test stripOrdered By: Magno Pichardo on 08-20-2023 Leukocyte esterase Auto test strip Ql (U) 3+ Negative [facility] Urine pH measurement by auto mated test stripOrdered By: Magno Pichardo on 08-20-2023 pH (U) 6.0 [pH] Normal 5.0-9.0 [facility] Comment on above: Order Comment: Name Collection Type:: Clean-Voided Midstream Performed By: #### B MP, CBC #### [address] Urobilinogen Auto test strip (U) [Mass/Vol]Ordered By: Magno Pichardo on 08-20-2023 Urobilinogen (U) [Mass/Vol] Normal mg/dL Normal [facility] XR femur RT 2V*on 08-20-2023 XR femur RT 2V* [facility] [address] [place] [address] XRay Report Signed Patient: Ashley Brown MR#: [id number] 1 : 1940 Acct:[id number] Age/Sex: 82 / F ADM Date: 08/20/23 Loc: [facility] Room: Type: [facility] Attending Dr: Magno Pichardo II, MD Copies to: Magno Pichardo MD Ordering Provider: Magno Pichardo MD Date of Service: 08/20/23 XR/XR tibia fibula RT 2V*: M17.11 - Unilateral primary osteoarthritis, right knee ([id number]) XR/XR femur RT 2V*: M17.11 - Unilateral [...] Richard Oliver M.D.08/20/2023 4:40 PM Dictation Location: [place] [address] Transcribed By: [facility] 08/20/23 1640 Dictated By: Richard Oliver DO 08/20/23 1637 Signed By: 08/20/23 1640 Normal [facility] B-Type Natriuretic Peptideon 08-01-2023 B-Type Natriuretic Peptide 949.0 pg/mL <=1800.0 pg/mL [employer] Other Basic Metabolic Panelon Anion gap [Moles/Vol] 12.0 mmol/L No rt [employer] Other Calcium [Mass/Vol] 9.4487674 mg/dL Normal 8.5-10 .1 mg/dL [employer] Other Chloride [Moles/Vol] 101 mmol/L Normal 98-107 mmol/L [employer] Other CO2 [Moles/Vol] 26.96902067 mmol/L Normal 21.0-3 2.0 mmol/L [employer] Other Creatinine [Mass/Vol] 0.60733830 mg/dL Normal 0. 55-1.02 mg/dL [employer] Other Glucose [Mass/Vol] 86 mg/dL Normal 74-106 mg/dL [employer] Other Potassium [Moles/Vol] 3.75779850 mmol/L Normal 3 .5-5.1 mmol/L [employer] Other Sodium [Moles/Vol] 136 mmol/L Normal 136-145 mmol/L [employer] Other Urea nitrogen [Mass/Vol] 16.9847767 mg/dL Normal 7.0-18.0 mg/dL [facility] [employer] Other Urea nitrogen/Creatinine [Mass ratio] 17.2 mg/mg [facility] [employer] Other Basic Metabolic Panel see note [facility] [employer] Other Basic Metabolic Panel 58 Low >=60 [facility] [employer] Other Basic Metabolic Panel >60 >=60 [facility] [employer] Other Albumin [Mass/volume] in Ser um or Plasma by Bromocresol green (BCG) dye binding methoOrdered By: Magno Pichardo on 07-23-2023 Albumin BCG dye [Mass/Vol] 4.1 g/dL 3.5-5.7 [facility] Cotinine [Mass/volume] in Se rum or PlasmaOrdered By: Magno Pichardo on 07-23-2023 Cotinine [Mass/Vol] <1.0 ng/mL . [facility] Comment on above: This test was develo ped and its performance characteristicsdetermined by [employer]. It has not been cleared orapproved by the Food and Drug Administration.Cotinine levels greater than 20.0 are consistent with theuse of tobacco or tobacco cessation products.Performed at: [facility] [employer] [id number] Director: Amilcar Baltazar MD, Phone: [phone] Glucose mean value [Mass/vol ume] in Blood Estimated from glycated hemoglobinOrdered By: Magno Pichardo on 07-23-2023 Average glucose Estimated from glycated hemoglobin (Bld) [Mass/Vol] 111 mg/dL [facility] [facility] Hemoglobin A1c percentageOrd ered By: Magno Pichardo on 07-23-2023 HbA1c (Bld) [Mass fraction] 5.5 % 4.3-5.6 [facility] Comment on above: Increased risk for d iabetes: 5.7 - 6.4diabetes: >6.4glycemic control for adults with diabetes: <7.0 Hemoglobin [Mass/volume] in BloodOrdered By: Magno Pichardo on 07-23-2023 Hemoglobin (Bld) [Mass/Vol] 13.4 g/dL 11.8-15.4 [facility] Nicotine [Mass/volume] in Se rum or PlasmaOrdered By: Magno Pichardo on 07-23-2023 Nicotine [Mass/Vol] <1.0 ng/mL . [facility] Comment on above: This test was develo ped and its performance characteristicsdetermined by [employer]. It has not been cleared orapproved by the Food and Drug Administration.Nicotine levels greater than 2.0 are consistent with theuse of tobacco or tobacco cessation products. Vitamin D+Metabolites [Mass/ volume] in Serum or PlasmaOrdered By: Magno Pichardo on 07-23-2023 Vitamin D+Metabolites [Mass/Vol] 45.5 ng/mL 30-100 [facility] Comment on above: VITAMIN D STATUS 25( [place])VITAMIN D RANGE (ng/mL) Deficient <20 Insufficient 20 to <30Sufficient 30 to 100Reference: Marley MF,Joanne ZHENG, Jayjay ESPOSITO, et al. Evaluation,treatment, and prevention of vitamin D deficiency; an Endocrine Society clinical practice guideline. JCEM. 2010; 96(7):1911-30. Wound methicillin resistant Staphylococcus aureus (MRSA) cultureOrdered By: Magno Pichardo on 07-23-2023 MRSA isol Org specific cx Ql (Unsp spec) No MRSA Isolated 2 Days [facility] MRSA isol Org specific cx Ql (Unsp spec) No MRSA Isolated 2 Days [facility] CBC AUTO DIFFon 10-31-2022 BASO # 0.1 103/ul Normal 0.0-0.1 [facility] Comment on above: Performed By: #### C BC #### [facility] [address], [place] [address] Dr. Charan Ariza Basophils/100 WBC (Bld) 1.7 % Normal 0.2-2.0 [facility] Comment on above: Performed By: #### C BC #### [facility] [address], [place] [address] Dr. Charan Ariza EO # 0.3 103/ul Normal 0.0-0.7 [facility] Comment on above: Performed By: #### C BC #### [facility] [address] [place] [address] Dr. Charan Ariza Eosinophils/100 WBC (Bld) 6.0 % Normal 0.9-7.0 [facility] Comment on above: Performed By: #### C BC #### [facility] [address] [place] [address] Dr. Charan Ariza Erythrocyte distribution width (RBC) [Ratio] 12.5 % Normal 11.0-15.0 [facility] Comment on above: Performed By: #### C BC #### [facility] [address] [place] [address] Dr. Charan Ariza Hematocrit (Bld) [Volume fraction] 42.6 % Normal 36.0-48.0 [facility] Comment on above: Performed By: #### C BC #### [facility] [address] [place] [address] Dr. Charan Ariza Hemoglobin (Bld) [Mass/Vol] 13.7 g/dL Normal 12.0-16.0 [facility] Comment on above: Performed By: #### C BC #### [facility] [address] [place] [address] Dr. Charan Ariza IG # 0.01 10e3/ul Normal 0.00-0.03 [facility] Comment on above: Performed By: #### C BC #### [facility] [address] [place] [address] Dr. Charan Ariza IG % 0.2 % Normal 0.0-0.5 [facility] Comment on above: Performed By: #### C BC #### [facility] [address] [place] [address] Dr. Charan Ariza LYMPH # 1.5 103/ul Normal 1.2-3.8 [facility] Comment on above: Performed By: #### C BC #### [facility] [address] [place] [address] Dr. Charan Ariza Lymphocytes/100 WBC (Bld) 28.9 % Normal 20.5-60.0 [facility] Comment on above: Performed By: #### C BC #### [facility] [address] [place] [address] Dr. Charan Ariza MANUAL DIFF REQ NO [facility] Comment on above: Performed By: #### C BC #### [facility] [address] [place] [address] Dr. Charan Ariza MCH (RBC) [Entitic mass] 31.9 pg Normal 26.7-34.0 [facility] Comment on above: Performed By: #### C BC #### [facility] [address] [place] [address] Dr. Charan Ariza MCHC (RBC) [Mass/Vol] 32.2 g/dL Normal 29.9-35.2 [facility] Comment on above: Performed By: #### C BC #### [facility] [address] [place] [address] Dr. Charan Ariza MCV (RBC) [Entitic vol] 99.3 fL Critically high 81.0-99.0 [facility] Comment on above: Performed By: #### C BC #### [facility] [address] [place] [address] Dr. Charan Ariza MONO # 0.4 103/ul Normal 0.3-0.8 [facility] Comment on above: Performed By: #### C BC #### [facility] [address] [place] [address] Dr. Charan Ariza Monocytes/100 WBC (Bld) 7.8 % Normal 1.7-12.0 [facility] Comment on above: Performed By: #### C BC #### [facility] [address] [place] [address] Dr. Charan Ariza NEUT # 2.9 103/ul Normal 1.4-6.5 [facility] Comment on above: Performed By: #### C BC #### [facility] [address] [place] [address] Dr. Charan Ariza Neutrophils/100 WBC (Bld) 55.4 % Normal 43.0-75.0 [facility] Comment on above: Performed By: #### C BC #### [facility] [address] [place] [address] Dr. Charan Ariza Platelet mean volume (Bld) [Entitic vol] 10.4 fL Normal 9.5-13.5 [facility] Comment on above: Performed By: #### C BC #### [facility] [address] [place] [address] Dr. Charan Ariza PLT 326 103/ul Normal 150-450 [facility] Comment on above: Performed By: #### C BC #### [facility] [address] [place] [address] Dr. Charan Ariza RBC 4.29 106/ul Normal 4.20-5.40 [facility] Comment on above: Performed By: #### C BC #### [facility] [address] [place] [address] Dr. Charan Ariza WBC 5.3 103/ul Normal 4.0-11.0 [facility] Comment on above: Performed By: #### C BC #### [facility] [address] [place] [address] Dr. Charan Ariza LIPID PROFILEon 10-31-2022 CHOL-HDL RATIO NORM SEE BELOW Normal [facility] Comment on above: Result Comment: 3.3 - 4.4 LOW RISK 4.4 - 7.1 AVERAGE RISK 7.1 - 11.0 MODERATE RISK >11.0 HIGH RISK Performed By: #### A LT, BMP, LIPID #### [facility] [address] [place] [address] Dr. Charan Ariza Cholesterol [Mass/Vol] 180 mg/dL Normal <=200 [facility] Comment on above: Performed By: #### A LT, BMP, LIPID #### [facility] [address] [place] [address] Dr. Charan Ariza Cholesterol in HDL [Mass/Vol] 75 mg/dL Critically high 40-60 [facility] Comment on above: Performed By: #### A LT, BMP, LIPID #### [facility] [address] [place] [address] Dr. Charan Ariza Cholesterol in LDL [Mass/Vol] 77.4 mg/dL Normal [facility] Comment on above: Performed By: #### A LT, BMP, LIPID #### [facility] [address] [address] [address] Charan Ariza Cholesterol.total/Cho lesterol in HDL [Mass ratio] 2.4 {ratio} Normal [facility] Comment on above: Performed By: #### A LT, BMP, LIPID #### [facility] [address] [address] [address] Charan Ariza HDL NORMAL > or = 60 mg/dl - LO W CARDIOVASCULAR RISK <40 mg/dl - HIGH CARDIOVASCULAR RISK Normal [facility] Comment on above: Performed By: #### A LT, BMP, LIPID #### [facility] [address] [address] [address] Charan Ariza LDL CALC NORMAL SEE BELOW Normal [facility] Comment on above: Result Comment: <100 mg/dl OPTIMAL 100 - 129 mg/dl NEAR OR ABOVE OPTIMAL 130 - 159 mg/dl BORDERLINE HIGH 160 - 189 mg/dl HIGH >190 mg/dl VERY HIGH Performed By: #### A LT, BMP, LIPID #### [facility] [address] [address] [address] Charan Ariza Triglyceride [Mass/Vol] 138 mg/dL Normal <=150 [facility] Comment on above: Performed By: #### A LT, BMP, LIPID #### [facility] [address] [address] [address] Charan Ariza VLDL CALC 27.6 mg/dL Normal [facility] Comment on above: Performed By: #### A LT, BMP, LIPID #### [facility] [address] [address] [address] Charan Ariza NM STRESS/REST MULTIon 10-31 NM STRESS/REST MULTI Patient: KEVIN BROWN Exam Date: 10/31/2022 : 1940 Gender:F Ordering : DR ODELL HARRINGTON D.O. Admission #: [id number] Family : Order #: [id number] CLICK HERE TO VIEW EXAM RADIOLOGY REPORT [...] Fournier MD on 10/31/2022 at 14:41 Normal [facility] PROF CHEM 8 (BAS METB)on Anion gap [Moles/Vol] 13.8 mmol/L Normal [facility] Comment on above: Performed By: #### A LT, BMP, LIPID #### [facility] [address] [place] [address] Dr. Charan Ariza Calcium [Mass/Vol] 9.2 mg/dL Normal 8.5-10.1 [facility] Comment on above: Performed By: #### A LT, BMP, LIPID #### [facility] [address] [place] [address] Dr. Charan Ariza Chloride [Moles/Vol] 105 mmol/L Normal 98-107 [facility] Comment on above: Performed By: #### A LT, BMP, LIPID #### [facility] [address] [place] [address] Dr. Charan Ariza CO2 [Moles/Vol] 25.4 mmol/L Normal 21.0-32.0 [facility] Comment on above: Performed By: #### A LT, BMP, LIPID #### [facility] [address] [address] [address] Charan Ariza Creatinine [Mass/Vol] 0.95 mg/dL Normal 0.55-1.02 [facility] Comment on above: Performed By: #### A LT, BMP, LIPID #### [facility] [address] [address] [address] Charan Ariza EGFR-AF MALDIVIAN >60 Normal >=60 [facility] Comment on above: Performed By: #### A LT, BMP, LIPID #### [facility] [address] [address] [address] Charan Ariza EGFR-NON AF MALDIVIAN 57 mL/min/1.73m2 Critically low >=60 [facility] Comment on above: Performed By: #### A LT, BMP, LIPID #### [facility] [address] [address] [address] Charan Ariza Glucose [Mass/Vol] 93 mg/dL Normal 74-106 [facility] Comment on above: Performed By: #### A LT, BMP, LIPID #### [facility] [address] [address] [address] Charan Ariza Potassium [Moles/Vol] 4.2 mmol/L Normal 3.5-5.1 [facility] Comment on above: Performed By: #### A LT, BMP, LIPID #### [facility] [address] [place] [address] Dr. Charan Ariza Sodium [Moles/Vol] 140 mmol/L Normal 136-145 [facility] Comment on above: Performed By: #### A LT, BMP, LIPID #### [facility] [address] [address] [address] Charan Ariza Urea nitrogen [Mass/Vol] 19.0 mg/dL Critically high 7.0-18.0 [facility] Comment on above: Performed By: #### A LT, BMP, LIPID #### [facility] [address], [place] [address] Dr. Charan Ariza Urea nitrogen/Creatinine [Mass ratio] 20.0 mg/mg Normal [facility] Comment on above: Performed By: #### A LT, BMP, LIPID #### [facility] [address], [place] [address] Dr. Charan Ariza SGPTon 10-31-2022 ALT [Catalytic activity/Vol] 29 U/L Normal 14-59 [facility] Comment on above: Performed By: #### A LT, BMP, LIPID #### [facility] [address], [place] [address] Dr. Charan Ariza ECHOCARDIO M/2D COMPLETEon 1 07-08-2021 ECHOCARDIO M/2D COMPLETE Patient: ASHLEY BROWN Exam Date: 05/08/2022 : 1940 Gender:F Ordering : DR JEREMIAS MCGUIRE M.D. Admission #: [id number] Family : DR ODELL HARRINGTON D.O. Order #: [id number] CLICK HERE TO VIEW EXAM ECHOCARDIOGRAM REPORT [...] 2.34 cm Aortic Valve AoV Area (Peak Enrrique): 2.07 cm2, 2.07 cm2 Peak Velocity(Antegrade Flow): 1.52 m/s Peak Gradient(Antegrade Flow): 9.20 mm[Hg] Tricuspid Valve Peak Velocity (Regurgitant Flow): 2.38 m/s, 2.58 m/s Peak Velocity: 0.64 m/s Pulmonic Valve Peak Velocity: 0.83 m/s Peak Gradient: 2.75 mm[Hg] Right Atrium Dictated by: Jeremias Mcguire M.D. on 05/08/2022 at 18:20 Approved by: Jeremias Mcguire M.D. on 05/08/2022 at 18:26 [facility] XR LSPINE 2_3 VIEWSon 2021 XR [...] by: TARIK MONROE Date: 2022-01-25 17:51 Normal [facility] CHEST AND LATERALon 03-20-20 21 CHEST AND LATERAL [facility] Department of Radiology [address] [place] [id number] Patient Name: ASHLEY BROWN : 1940 [...] above Electronically signed: Lashonda Traore. Transcribed by: [email or web address], User Resident: Electronically Signed by: LASHONDA TRAORE @ 03/21/2021 09:38 AM Normal [facility] Comment on above: Order Comment: evalu ate Vital Signs Date Time Vital Sign Value Performing Clinician Facility 08-16-2024 13:41-0500 Body height 147.32 cm Odell Ball DO Work Phone: [facility] 08-16-2024 13:41-0500 Body mass index (BMI) [Ratio] 29.7 kg/m2 Odell Ball DO Work Phone: [facility] 08-16-2024 13:41-0500 Body weight 64.46 kg Odell Ball DO Work Phone: [facility] 08-16-2024 13:41-0500 Diastolic blood pressure 80 mm[Hg] Odell Ball DO Work Phone: [facility] 08-16-2024 13:41-0500 Heart rate 69 /min Odell Ball DO Work Phone: [facility] 08-16-2024 13:41-0500 Respiratory rate 12 /min Odell Ball DO Work Phone: [facility] 08-16-2024 13:41-0500 Systolic blood pressure 125 mm[Hg] Odell Ball DO Work Phone: [facility] 08-02-2024 05:00-0500 Body temperature 97.8 [degF] Odell Ball DO Work Phone: [facility] 08-02-2024 05:00-0500 Diastolic blood pressure 77 mm[Hg] Odell Ball DO Work Phone: [facility] 08-02-2024 05:00-0500 Heart rate 58 /min Odell Ball DO Work Phone: [facility] 08-02-2024 05:00-0500 Respiratory rate 14 /min Odell Ball DO Work Phone: [facility] 08-02-2024 05:00-0500 SaO2% (BldA) [Mass fraction] 97 % Odell Ball DO Work Phone: [facility] 08-02-2024 05:00-0500 Systolic blood pressure 155 mm[Hg] Odell Ball DO Work Phone: [facility] 08-01-2024 05:50-0500 Body weight 67 kg Odell Ball DO Work Phone: [facility] 07-20-2024 17:36-0500 Body height 147.32 cm Odell Ball DO Work Phone: [facility] 07-20-2024 15:53-0500 Body temperature 98 [degF] Odell Ball DO Work Phone: [facility] 07-20-2024 15:53-0500 Diastolic blood pressure 68 mm[Hg] Odell Ball DO Work Phone: [facility] 07-20-2024 15:53-0500 Heart rate 63 /min Odell Ball DO Work Phone: [facility] 07-20-2024 15:53-0500 Respiratory rate 17 /min Odell Ball DO Work Phone: [facility] 07-20-2024 15:53-0500 SaO2% (BldA) [Mass fraction] 98 % Odell Ball DO Work Phone: [facility] 07-20-2024 15:53-0500 Systolic blood pressure 172 mm[Hg] Odell Ball DO Work Phone: [facility] 07-19-2024 12:10-0500 Inhaled oxygen flow rate 8 L/min Odell Ball DO Work Phone: [facility] 07-19-2024 08:42-0500 Body height 147.32 cm Odell Ball DO Work Phone: [facility] 07-19-2024 08:42-0500 Body weight 65.77 kg Odell Ball DO Work Phone: [facility] 06-24-2024 09:46-0500 Body height 142.24 cm Odell Ball DO Work Phone: [facility] 06-24-2024 09:46-0500 Body mass index (BMI) [Ratio] 32.5 kg/m2 Odell Ball DO Work Phone: [facility] 06-24-2024 09:46-0500 Body weight 65.94 kg Odell Ball DO Work Phone: [facility] 06-24-2024 09:46-0500 Diastolic blood pressure 78 mm[Hg] Odell Ball DO Work Phone: [facility] 06-24-2024 09:46-0500 Heart rate 82 /min Odell Ball DO Work Phone: [facility] 06-24-2024 09:46-0500 Respiratory rate 12 /min Odell Ball DO Work Phone: [facility] 06-24-2024 09:46-0500 Systolic blood pressure 158 mm[Hg] Odell Ball DO Work Phone: [facility] 06-08-2024 14:16-0500 Body height 142.24 cm Odell Ball DO Work Phone: [facility] 06-08-2024 14:16-0500 Body mass index (BMI) [Ratio] 32.3 kg/m2 Odell Ball DO Work Phone: [facility] 06-08-2024 14:16-0500 Body weight 65.37 kg Odell Ball DO Work Phone: [facility] 06-08-2024 14:16-0500 Diastolic blood pressure 77 mm[Hg] Odell Ball DO Work Phone: [facility] 06-08-2024 14:16-0500 Heart rate 74 /min Odell Ball DO Work Phone: [facility] 06-08-2024 14:16-0500 Respiratory rate 12 /min Odell Ball DO Work Phone: [facility] 06-08-2024 14:16-0500 Systolic blood pressure 139 mm[Hg] Odell Ball DO Work Phone: [facility] 04-15-2024 15:03-0400 Body height 149.9 cm Hiro Henry DPM Work Phone: [facility] 04-15-2024 15:03-0400 Body mass index (BMI) [Ratio] 30.7 kg/m2 Hiro Henry DPM Work Phone: [facility] 04-15-2024 15:03-0400 Body weight 68.95 kg Hiro Henry DPM Work Phone: [facility] 04-15-2024 15:03-0400 Diastolic blood pressure 74 mm[Hg] Hiro Henry DPM Work Phone: [facility] 04-15-2024 15:03-0400 Heart rate 81 /min Hiro Henry DPM Work Phone: [facility] 04-15-2024 15:03-0400 Systolic blood pressure 125 mm[Hg] Hiro Henry DPM Work Phone: [facility] 04-15-2024 11:44-0400 Body height 142.24 cm DO Odell Ball Work Phone: [facility] 04-15-2024 11:44-0400 Body mass index (BMI) [Ratio] 33.2 kg/m2 DO Odell Ball Work Phone: [facility] 04-15-2024 11:44-0400 Body temperature 97.2 [degF] DO Odell Ball Work Phone: [facility] 04-15-2024 11:44-0400 Body weight 67.24 kg DO Odell Ball Work Phone: [facility] 04-15-2024 11:44-0400 Diastolic blood pressure 78 mm[Hg] DO Odell Ball Work Phone: [facility] 04-15-2024 11:44-0400 Heart rate 67 /min DO Odell Ball Work Phone: [facility] 04-15-2024 11:44-0400 Respiratory rate 12 /min DO Odell Ball Work Phone: [facility] 04-15-2024 11:44-0400 Systolic blood pressure 166 mm[Hg] DO Odell Ball Work Phone: [facility] 03-12-2024 13:58-0400 Body height 142.24 cm DO Odell Ball Work Phone: [facility] 03-12-2024 13:58-0400 Body mass index (BMI) [Ratio] 33.3 kg/m2 DO Odell Ball Work Phone: [facility] 03-12-2024 13:58-0400 Body weight 67.35 kg DO Odell Ball Work Phone: [facility] 03-12-2024 13:58-0400 Diastolic blood pressure 89 mm[Hg] DO Odell Ball Work Phone: [facility] 03-12-2024 13:58-0400 Heart rate 66 /min DO Odell Ball Work Phone: [facility] 03-12-2024 13:58-0400 Respiratory rate 12 /min DO Odell Ball Work Phone: [facility] 03-12-2024 13:58-0400 Systolic blood pressure 139 mm[Hg] DO Odell Ball Work Phone: [facility] 12-19-2023 14:18-0400 Body height 142.24 cm DO Odell Ball Work Phone: [facility] 12-19-2023 14:18-0400 Body mass index (BMI) [Ratio] 33.4 kg/m2 DO Odell Ball Work Phone: [facility] 12-19-2023 14:18-0400 Body weight 67.64 kg DO Odell Ball Work Phone: [facility] 12-19-2023 14:18-0400 Diastolic blood pressure 73 mm[Hg] DO Odell Ball Work Phone: [facility] 12-19-2023 14:18-0400 Heart rate 67 /min DO Odell Ball Work Phone: [facility] 12-19-2023 14:18-0400 Respiratory rate 12 /min DO Odell Ball Work Phone: [facility] 12-19-2023 14:18-0400 Systolic blood pressure 168 mm[Hg] DO Odell Ball Work Phone: [facility] 09-19-2023 11:38-0400 Body height 142.24 cm DO Odell Ball Work Phone: [facility] 09-19-2023 11:38-0400 Body mass index (BMI) [Ratio] 34 kg/m2 DO Odell Ball Work Phone: [facility] 09-19-2023 11:38-0400 Body weight 68.71 kg DO Odell Ball Work Phone: [facility] 09-19-2023 11:38-0400 Diastolic blood pressure 76 mm[Hg] DO Odell Ball Work Phone: [facility] 09-19-2023 11:38-0400 Systolic blood pressure 198 mm[Hg] DO Odell Ball Work Phone: [facility] 09-15-2023 08:40-0400 Body temperature 97.8 [degF] DO Odell Ball Work Phone: [facility] 09-15-2023 08:40-0400 Diastolic blood pressure 78 mm[Hg] DO Odell Ball Work Phone: [facility] 09-15-2023 08:40-0400 Heart rate 70 /min DO Odell Ball Work Phone: [facility] 09-15-2023 08:40-0400 Respiratory rate 18 /min DO Odell Ball Work Phone: [facility] 09-15-2023 08:40-0400 SaO2% (BldA) [Mass fraction] 100 % DO Odell Ball Work Phone: [facility] 09-15-2023 08:40-0400 Systolic blood pressure 122 mm[Hg] DO Odell Ball Work Phone: [facility] 09-14-2023 06:00-0400 Body weight 70.8 kg DO Odell Ball Work Phone: [facility] 09-02-2023 15:11-0500 Body height 147.32 cm DO Odell Ball Work Phone: [facility] 09-02-2023 11:34-0500 Body temperature 97.4 [degF] DO Odell Ball Work Phone: [facility] 09-02-2023 11:34-0500 Diastolic blood pressure 65 mm[Hg] DO Odell Ball Work Phone: [facility] 09-02-2023 11:34-0500 Heart rate 62 /min DO Odell Ball Work Phone: [facility] 09-02-2023 11:34-0500 Respiratory rate 18 /min DO Odell Ball Work Phone: [facility] 09-02-2023 11:34-0500 SaO2% (BldA) [Mass fraction] 97 % DO Odell Ball Work Phone: [facility] 09-02-2023 11:34-0500 Systolic blood pressure 139 mm[Hg] DO Odell Ball Work Phone: [facility] 09-01-2023 13:46-0500 Inhaled oxygen flow rate 8 L/min DO Odell Ball Work Phone: [facility] 09-01-2023 11:37-0500 Body height 147.32 cm DO Odell Ball Work Phone: [facility] 09-01-2023 11:37-0500 Body mass index (BMI) [Ratio] 30.9 kg/m2 DO Odell Ball Work Phone: [facility] 09-01-2023 11:37-0500 Body weight 67 kg DO Odell Ball Work Phone: [facility] 08-20-2023 13:05-0500 Body height 147.32 cm DO Odell Ball Work Phone: [facility] 08-20-2023 13:05-0500 Body mass index (BMI) [Ratio] 30.7 kg/m2 DO Odell Ball Work Phone: [facility] 08-20-2023 13:05-0500 Body weight 66.67 kg DO Odell Ball Work Phone: [facility] 08-01-2023 11:00-0500 Body height 147.32 cm Odell Ball Other [facility] 08-01-2023 11:00-0500 Body mass index (BMI) [Ratio] 30.85 kg/m2 Odell Ball Other [facility] [employer] Other 08-01-2023 11:00-0500 Body weight 66.95 kg Odell Ball Other [facility] 08-01-2023 11:00-0500 Diastolic blood pressure 86 mm[Hg] Odell Ball Other [facility] 08-01-2023 11:00-0500 Respiratory rate 12 /min Odell Ball Other [facility] [employer] Other 08-01-2023 11:00-0500 Systolic blood pressure 135 mm[Hg] Odell Ball Other [facility] 07-09-2023 12:45-0500 Body height 147.32 cm Magno [place] II Other [facility] 07-09-2023 12:45-0500 Body mass index (BMI) [Ratio] 31.1 kg/m2 Magno Marino II Other [facility] [employer] Other 07-09-2023 12:45-0500 Body weight 67.5 kg Magno [place] II Other [facility] Other 07-09-2023 12:45-0500 Body weight 67.49 kg DO Odell Ball Work Phone: [facility] 06-06-2023 11:30-0500 Body height 147.32 cm Odell Ball Other [facility] 06-06-2023 11:30-0500 Body mass index (BMI) [Ratio] 29.88 kg/m2 Odell Ball Other [facility] [employer] Other 06-06-2023 11:30-0500 Body temperature 97.3 [degF] Odell Ball Other [facility] Other 06-06-2023 11:30-0500 Body weight 64.86 kg Odell Ball Other [facility] 06-06-2023 11:30-0500 Diastolic blood pressure 81 mm[Hg] Odell Ball Other [facility] 06-06-2023 11:30-0500 Respiratory rate 16 /min Odell Ball Other [facility] Other 06-06-2023 11:30-0500 Systolic blood pressure 138 mm[Hg] Odell Ball Other [facility] 05-21-2023 10:30-0500 Body height 147.32 cm Magno Marino II Other [employer] Other 05-21-2023 10:30-0500 Body mass index (BMI) [Ratio] 31.14 kg/m2 Magno [place] II Other [employer] Other 05-21-2023 10:30-0500 Body weight 67.59 kg Magno [place] II Other [employer] Other 05-20-2023 13:30-0500 Body height 147.32 cm Odell Ball Other [employer] Other 05-20-2023 13:30-0500 Body mass index (BMI) [Ratio] 31.64 kg/m2 Odell Ball Other [employer] Other 05-20-2023 13:30-0500 Body weight 68.68 kg Odell Ball Other [employer] Other 05-20-2023 13:30-0500 Diastolic blood pressure 77 mm[Hg] Odell Ball Other [employer] Other 05-20-2023 13:30-0500 Respiratory rate 12 /min Odell Ball Other [employer] Other 05-20-2023 13:30-0500 Systolic blood pressure 158 mm[Hg] Odell Ball Other [employer] Other 10-22-2022 15:00-0400 Body height 147.32 cm Odell Ball Other [employer] Other 10-22-2022 15:00-0400 Body mass index (BMI) [Ratio] 31.47 kg/m2 Odell Ball Other [employer] Other 10-22-2022 15:00-0400 Body weight 68.31 kg Odell Ball Other [employer] Other 10-22-2022 15:00-0400 Diastolic blood pressure 81 mm[Hg] Odell Ball Other [employer] Other 10-22-2022 15:00-0400 Respiratory rate 12 /min Odell Ball Other [employer] Other 10-22-2022 15:00-0400 Systolic blood pressure 150 mm[Hg] Odell Ball Other [employer] Other 07-24-2022 16:00-0500 Body height 147.32 cm Odell Ball Other [employer] Other 07-24-2022 16:00-0500 Body mass index (BMI) [Ratio] 31.81 kg/m2 Odell Ball Other [employer] Other 07-24-2022 16:00-0500 Body temperature 97 [degF] Odell Ball Other [employer] Other 07-24-2022 16:00-0500 Body weight 69.04 kg Odell Ball Other [employer] Other Encounters Encounter Date Encounter Type Care Provider Facility Start: 08-16-2024 End: 08-16-2024 ambulatory Odell Ball DO Work Phone: [facility] Work Phone: Start: 08-16-2024 End: 08-16-2024 Patient encounter procedure Odell Ball DO Work Phone: [facility] Work Phone: Start: 08-09-2024 End: 08-09-2024 ambulatory Odell Ball DO Work Phone: [facility] Work Phone: Start: 08-09-2024 End: 08-09-2024 Patient encounter procedure Odell Ball DO Work Phone: [facility] Work Phone: Start: 08-03-2024 Non-patient / Non-visit Benjam in Ball DO Work Phone: [facility] Work Phone: Start: 07-28-2024 Non-patient / Non-visit Benjam in Ball DO Work Phone: [facility] Work Phone: Start: 07-21-2024 Non-patient / Non-visit Benjam in Ball DO Work Phone: [facility] Work Phone: Start: 07-20-2024 End: 08-02-2024 Evaluation and management of inpatient Odell Ball DO Work Phone: [facility] Work Phone: Start: 07-20-2024 Non-patient / Non-visit Benjam in Ball DO Work Phone: [facility] Work Phone: Start: 07-19-2024 Non-patient / Non-visit Benjam in Ball DO Work Phone: [facility] Work Phone: Start: 07-19-2024 End: 07-20-2024 Admission to same day surgery center Odell Ball DO Work Phone: [facility] Start: 07-19-2024 End: 07-20-2024 ambulatory Odell Ball DO Work Phone: [facility] Work Phone: Start: 07-09-2024 End: 07-09-2024 ambulatory Odell Ball DO Work Phone: [facility] Work Phone: Start: 07-09-2024 End: 07-09-2024 Patient encounter procedure Odell Ball DO Work Phone: [facility] Work Phone: Start: 07-08-2024 End: 07-08-2024 ambulatory Odell Ball DO Work Phone: [facility] Work Phone: Start: 07-08-2024 End: 07-08-2024 Patient encounter procedure Odell Ball DO Work Phone: [facility] Work Phone: Start: 06-24-2024 End: 06-24-2024 Patient encounter procedure Odell Ball DO Work Phone: [facility] Work Phone: Start: 06-08-2024 End: 06-08-2024 Encounter for other preprocedural examination Odell Ball DO Work Phone: [facility] Start: 06-08-2024 End: 06-08-2024 Patient encounter procedure Odell Ball DO Work Phone: [facility] Work Phone: Start: 05-05-2024 End: 05-05-2024 Patient encounter procedure DO Odell Ball Work Phone: [facility] [place] Work Phone: Start: 05-05-2024 End: 05-05-2024 ambulatory DO Odell Ball Work Phone: [facility] Work Phone: Start: 04-29-2024 End: 04-29-2024 Patient encounter procedure DO Odell Ball Work Phone: [facility] Work Phone: Start: 04-15-2024 End: 04-15-2024 Office outpatient visit 15 minutes Hiro Henry DPM Work Phone: [facility] Comment on above: Tinea pedis of left foot (Primary Dx); Pain due to onychomycosis of toenails of both feet; Hallux rigidus of right foot; Hav (hallux abducto valgus), left Start: 04-15-2024 End: 04-15-2024 ambulatory HIRO HENRY Not Available Start: 04-15-2024 End: 04-15-2024 Bamboo flowsheet Hiro Henry DPM Work Phone: [facility] Start: 04-15-2024 End: 04-15-2024 Bamboo flowsheet Hiro Henry DPM Work Phone: [facility] Start: 04-15-2024 End: 04-15-2024 Patient encounter procedure DO Odell Ball Work Phone: [facility] Work Phone: Start: 03-12-2024 End: 03-12-2024 Patient encounter procedure DO Odell Ball Work Phone: [facility] Work Phone: Start: 03-11-2024 End: 03-11-2024 Patient encounter procedure DO Odell Ball Work Phone: [facility] Work Phone: Start: 02-23-2024 End: 02-23-2024 Bamboo flowsheet Lindsey Huang DO Work Phone: [facility] Start: 02-23-2024 End: 02-23-2024 Bamboo flowsheet Lindsey Huang DO Work Phone: [facility] Start: 02-23-2024 End: 02-23-2024 ambulatory LINDSEY HUANG Not Available Start: 02-19-2024 End: 02-19-2024 ambulatory DO Odell Ball Work Phone: [facility] Work Phone: Start: 02-19-2024 End: 02-19-2024 Patient encounter procedure DO Odell Ball Work Phone: [facility] Work Phone: Start: 02-05-2024 End: 02-05-2024 ambulatory HIRO HENRY Not Available Start: 02-04-2024 End: 02-04-2024 ambulatory [facility] Start: 02-04-2024 Non-patient / Non-visit DO Alex nolan Ball Work Phone: [facility] Work Phone: Start: 12-20-2023 Non-patient / Non-visit DO Alex nolan Ball Work Phone: [facility] Work Phone: Start: 12-19-2023 End: 12-19-2023 Patient encounter procedure DO Odell Ball Work Phone: [facility] Work Phone: Start: 11-20-2023 End: 11-20-2023 ambulatory HIRO HENRY Not Available Start: 11-19-2023 End: 11-19-2023 Patient encounter procedure DO Odell Ball Work Phone: [facility] Work Phone: Start: 11-19-2023 End: 11-19-2023 Patient encounter procedure DO Odell Ball Work Phone: [facility] Start: 11-19-2023 End: 11-19-2023 ambulatory DO Odell Ball Work Phone: [facility] Work Phone: Start: 11-08-2023 Non-patient / Non-visit DO Alex nolan Ball Work Phone: [facility] Work Phone: Start: 11-04-2023 End: 11-04-2023 ambulatory ODILIA [facility] Start: 10-23-2023 End: 10-23-2023 ambulatory ANNABELLA PALACIOS Not Available Start: 10-08-2023 End: 10-08-2023 Patient encounter procedure DO Odell Ball Work Phone: [facility] Work Phone: Start: 10-08-2023 End: 10-08-2023 Patient encounter procedure DO Odell Ball Work Phone: [facility] Start: 10-08-2023 End: 10-08-2023 ambulatory DO Odell Ball Work Phone: [facility] Work Phone: Start: 09-19-2023 End: 09-19-2023 Patient encounter procedure DO Odell Ball Work Phone: [facility] Work Phone: Start: 09-17-2023 Non-patient / Non-visit DO Alex nolan Ball Work Phone: [facility] Work Phone: Start: 09-13-2023 End: 09-15-2023 Non-patient / Non-visit DO Odell Ball Work Phone: [facility] Work Phone: Start: 09-11-2023 End: 09-15-2023 Non-patient / Non-visit DO Odell Ball Work Phone: [facility] Work Phone: Start: 09-10-2023 End: 09-15-2023 Non-patient / Non-visit DO Odell Ball Work Phone: [facility] Work Phone: Start: 09-03-2023 End: 09-15-2023 Non-patient / Non-visit DO Odell Ball Work Phone: [facility] Work Phone: Start: 09-03-2023 End: 09-15-2023 Non-patient / Non-visit DO Odell Ball Work Phone: [facility] Re[facility] Sp[facility] Work Phone: Start: 09-02-2023 End: 09-15-2023 Evaluation and management of inpatient DO Odell Ball Work Phone: [facility] Work Phone: Start: 09-02-2023 Non-patient / Non-visit DO Alex nolan Ball Work Phone: [facility] Work Phone: Start: 09-01-2023 Non-patient / Non-visit DO Alex nolan Ball Work Phone: [facility] Physician [facility] Work Phone: Start: 09-01-2023 Non-patient / Non-visit DO Alex nolan Ball Work Phone: [facility] Work Phone: Start: 09-01-2023 End: 09-02-2023 Evaluation and management of inpatient Ana Berry Facility:[facility] Start: 08-25-2023 End: 08-25-2023 Patient encounter procedure DO Odell Ball Work Phone: [facility] Work Phone: Start: 08-22-2023 End: 08-22-2023 Patient encounter procedure DO Odell Ball Work Phone: [facility] Work Phone: Start: 08-20-2023 End: 08-20-2023 Discharged Recurring DO Odell Ball Work Phone: [facility] [place] Start: 08-20-2023 Registered Recurring DO Benjam in Ball Work Phone: [facility] [place] Start: 08-20-2023 End: 08-20-2023 ambulatory DO Odell Ball Work Phone: [facility] Work Phone: Start: 08-20-2023 End: 08-20-2023 Patient encounter procedure DO Odell Ball Work Phone: [facility] Work Phone: Start: 08-20-2023 End: 08-20-2023 ambulatory DO Odell Ball Work Phone: [facility] Work Phone: Start: 08-20-2023 End: 08-20-2023 ambulatory DO Odell Ball Work Phone: [facility] Work Phone: Start: 08-20-2023 End: 08-20-2023 Patient encounter procedure DO Odell Ball Work Phone: [facility] Work Phone: Start: 08-01-2023 End: 08-01-2023 ambulatory Odell Ball Other [facility] [employer] Other Start: 08-01-2023 Encounter for other preprocedural examination Odell Ball [facility] Start: 08-01-2023 Office outpatient vi sit 25 minutes Odell Ball [facility] Start: 08-01-2023 Telephone encounter Odell Ball [facility] Start: 08-01-2023 End: 08-01-2023 Patient encounter procedure DO Odell Ball Work Phone: [facility]- Start: 07-23-2023 Telephone encounter Magno Pichardo II [facility] Start: 07-23-2023 End: 07-23-2023 ambulatory DO Odell Ball Work Phone: [facility] Work Phone: Start: 07-23-2023 End: 07-23-2023 Patient encounter procedure DO Odell Ball Work Phone: [facility] [place] Work Phone: Start: 07-22-2023 End: 07-22-2023 ambulatory NBA MARCELO Not Available Start: 07-09-2023 End: 07-09-2023 ambulatory Magno [place] II Other [employer] Other Start: 07-09-2023 Office outpatient vi sit 15 minutes Magno [place] II [facility] Start: 07-09-2023 End: 07-09-2023 Patient encounter procedure DO Odell Ball Work Phone: [facility] Work Phone: Start: 06-06-2023 End: 06-06-2023 ambulatory Odell Ball Other [employer] Other Start: 06-06-2023 Office outpatient vi sit 15 minutes Odell Ball [facility] Start: 06-06-2023 End: 06-06-2023 Patient encounter procedure DO Odell Ball Work Phone: [facility] Work Phone: Start: 05-26-2023 End: 05-26-2023 ambulatory Odell Ball Other [employer] Other Start: 05-26-2023 Office outpatient vi sit 15 minutes Odell Ball [facility] Start: 05-26-2023 Telephone encounter Odell Ball [facility] Start: 05-21-2023 End: 05-21-2023 ambulatory Magno [place] II Other [employer] Other Start: 05-21-2023 Office outpatient ne w 45 minutes Magno Pichardo II [facility] Start: 05-21-2023 End: 05-21-2023 Patient encounter procedure DO Odell Harrington Work Phone: [facility] Start: 05-21-2023 End: 05-21-2023 Patient encounter procedure DO Odell Harrington Work Phone: [facility] Work Phone: Start: 05-20-2023 End: 05-20-2023 ambulatory Odell Harrington Other [employer] Other Start: 05-20-2023 Office outpatient vi sit 25 minutes Odell Harrington [facility] Start: 05-20-2023 Telephone encounter Odell Harrington [facility] Start: 05-20-2023 End: 05-20-2023 Patient encounter procedure DO Odell Harrington Work Phone: [facility] Work Phone: Start: 11-29-[address] ODELL HARRINGTON Facili ty:[facility]1 Start: 11-19-2022 End: 11-19-2022 ambulatory NARENDRANATH LAKSHMIPATHY . Facility:[facility] Start: 11-05-2022 End: 11-06-2022 ambulatory NARENDRANATH LAKSHMIPATHY . Facility:[facility] Start: 10-31-2022 End: 11-01-[address] ODELL HARRINGTON Facility:[facility] Start: 10-22-2022 End: 10-22-2022 ambulatory Odell Harrington Other [employer] Other Start: 10-22-2022 Patient encounter procedure Odell Harrington [facility] Start: 10-08-2022 End: 10-08-2022 ambulatory Odell Harrington Other [employer] Other Start: 10-08-2022 Office outpatient vi sit 15 minutes Odell Harrington [facility] Start: 07-24-2022 End: 07-24-2022 ambulatory Odell Harrington Other [employer] Other Start: 07-24-2022 Office outpatient vi sit 25 minutes Odell Harrington [facility] Start: 07-12-2022 Patient encounter status Odell Harrington Other [employer] Other Start: 05-08-2022 End: 05-09-2022 ambulatory JEREMIAS JOSSELINKEANU Facility:[facility] Start: 02-04-2022 End: 03-20-[address] ODELL HARRINGTON Facility:[facility] Start: 01-25-2022 End: 01-26-[address] ODELL HARRINGTON Facility:[facility] Procedures Date Procedure Procedure Detail Performing Clinician Start: 07-20-2024 Urine culture Odell Harrington [employer] Work Phone: Start: 07-19-2024 End: 07-19-2024 Plain X-ray of left hip Odell [employer] Work Phone: Start: 07-19-2024 Total replacement of left hip joint Odell Harrington [employer] Work Phone: Start: 07-08-2024 Urine culture Odell Harrington [employer] Work Phone: Start: 05-05-2024 Methicillin resistan t Staphylococcus aureus culture DO Odell [employer] Work Phone: Start: 02-23-2024 Computerized ophthal carine imaging retina Lindsey Huang DO Work Phone: Start: 02-23-2024 End: 02-23-2024 [facility] medical xm&eval comprhnsv estab pt 1/> Early dry stage nonexudative age-related macular degeneration of both eyes Lindsey Huang DO Work Phone: Comment on above: Early dry stage none xudative age-related macular degeneration of both eyes (Primary Dx); PCO (posterior capsular opacification), bilateral; Dry eyes; Blepharitis of upper and lower eyelids of both eyes, unspecified type Start: 02-19-2024 Plain X-ray of left hip DO Odell [employer] Work Phone: Start: 11-19-2023 Plain X-ray of right femur DO Odell [employer] Work Phone: Start: 11-19-2023 Plain X-ray of right tibia and right fibula DO Odell Ball Work Phone: Start: 11-19-2023 X-ray of left knee DO B enjamin Ball Work Phone: Start: 11-19-2023 X-ray of right knee DO Odell Ball Work Phone: Start: 10-08-2023 X-ray of right knee DO Odell Ball Work Phone: Start: 09-05-2023 Duplex scan of lower limb veins DO Odell Ball Work Phone: Start: 08-20-2023 Antibody screen Dilip Laird Comment on above: Order Comment: Date of Surgery: [id number] Result Comment: PERF ORMED BY: [facility] [address] [place] [address] PATHOLOGIST [employer]ER BUBBA MERIDA M.D. Start: 08-20-2023 Urine culture DO Benjam in Ball Work Phone: Start: 08-20-2023 Plain X-ray of right femur DO Odell Ball Work Phone: Start: 08-20-2023 Plain X-ray of right tibia and right fibula DO Odell Ball Work Phone: Start: 07-23-2023 Methicillin resistan t Staphylococcus aureus culture DO Odell Ball Work Phone: Start: 05-21-2023 X-ray of right knee DO Odell Ball Work Phone: Start: 05-21-2023 X-ray of left knee DO B enjamin Ball Work Phone: 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 DO Odell Ball Work Phone: Plan of Treatment Date Care Activity Detail Author Start: 02-22-2025 End: 02-22-2025 Patient encounter procedure 02/22/2025 2:00 PM EDT Office Visit [facility] [address] [place] [id number] Lindsey Huang, DO [address] [place] [address] [facility] Start: 10-25-2024 End: 10-25-2024 Patient encounter procedure 10/25/2024 2:00 PM EDT Office Visit [facility] [address] [place] [address] Annabella Palacios MD [address] [place] [address] [facility] Start: 08-02-2024 [facility] Start: 07-27-2024 End: 07-27-2024 Patient encounter procedure 07/27/2024 2:00 PM EST Office Visit [facility] [address] [place] [id number] Nba Marcelo DO [address] [place] [address] [facility] Start: 07-20-2024 Hospital admission [facility] Start: 07-20-2024 Referral to clinical reinforcing iron and rebar workers [facility] Start: 07-20-2024 [facility] Start: 07-20-2024 Bacteria identified in Urine by Culture Urine Culture [facility] Start: 07-20-2024 Urine culture [facility] Start: 07-19-2024 Hospital admission [facility] Start: 07-19-2024 Referral to clinical reinforcing iron and rebar workers [facility] Start: 07-19-2024 Referral to rehabilitation physician [facility] Start: 07-08-2024 Bacteria identified in Urine by Culture Urine Culture [facility] Start: 07-08-2024 Urine culture [facility] Start: 07-08-2024 [facility] Start: 06-24-2024 End: 06-24-2024 Patient encounter procedure 06/24/2024 3:00 PM EST Procedure Visit [facility] [address] [place] [id number] Hiro Henry, DPMaddy [address] [facility] [address] [place] [address] [facility] Start: 05-05-2024 MRSA Culture MRSA Culture [facility] Start: 04-15-2024 End: 04-15-2024 Patient encounter procedure [facility] Comment on above: 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 (Primary Dx); Hallux rigidus of right foot; Hav (hallux abducto valgus), left Start: 02-29-2024 Influenza vaccination Influenza Vacc ine (#1) [facility] Start: 02-23-2024 End: 02-23-2024 Patient encounter procedure 02/23/2024 2:00 PM EDT Office Visit [facility] [address] [place] [address] Lindsey Huang DO [address] [place] [address] Arrived [facility] Comment on above: Arrived Start: 09-15-2023 [facility] Start: 09-02-2023 Hospital admission [facility] Start: 09-02-2023 Referral to clinical reinforcing iron and rebar workers [facility] Start: 09-02-2023 [facility] Start: 09-01-2023 Hospital admission [facility] Start: 09-01-2023 Referral to clinical reinforcing iron and rebar workers [facility] Start: 09-01-2023 Referral to rehabilitation physician [facility] Start: 08-20-2023 [facility] Start: 08-20-2023 Bacteria identified in Urine by Culture [facility] [place] Start: 08-20-2023 Urine culture Urine Culture [facility] Start: 07-23-2023 MRSA Culture MRSA Culture [facility] Comprehensive metabo lic 1999 panel - Serum or Plasma [facility] Comprehensive metabo lic 1999 panel - Serum or Plasma [facility] Cotinine [Mass/volum e] in Serum or Plasma [facility] Glucose measurement estimated from glycated hemoglobin [facility] Glucose measurement estimated from glycated hemoglobin [facility] Methicillin resistan t Staphylococcus aureus [Presence] in Unspecified specimen by Organism specific culture [facility] Methicillin resistan t Staphylococcus aureus [Presence] in Unspecified specimen by Organism specific culture [facility] Nicotine [Mass/volum e] in Serum or Plasma [facility] Patient Education [facility] Work Phone: Patient referral [facility] Work Phone: XR Chest 2 Views [facility] XR Sternum GE [address] [facility] Immunizations Immunization Date Immunization Notes Care Provider [facility] 04-13-2024 influenza, high dose seasonal, preservative-free Odell uJany DO Work Phone: [facility] 04-13-2024 influenza virus vaccine, unspecified formulation Hiro Henry DPM Work Phone: [facility] 05-14-2023 RSV, preF3, adj, pf DO Farhad min Ball Work Phone: [facility] 04-30-2023 Flu Shot - Documentation Purposes Only Odell Harrington Other [facility] 04-30-2023 influenza virus vaccine, unspecified formulation Lindsey Huang DO Work Phone: [facility] 04-23-2022 influenza, high dose seasonal, preservative-free Odell Harrington Other [employer] Other 04-23-2022 Influenza vaccine, quadrivalent, adjuvanted DO Odell Harrington Work Phone: [facility] 04-23-2022 influenza virus vaccine, split virus (incl. purified surface antigen) Odell Harrington Other [employer] Other 04-23-2022 influenza virus vaccine, unspecified formulation DO Odell Harrington Work Phone: [facility] 04-05-2021 COVID-19 Vaccine Pfi zer - Documentation Purposes Only Odell Harrington Other [facility] 03-26-2021 Fluzone QIV High-Dos e 65YR+ DO Odell Harrington Work Phone: [facility] 03-26-2021 influenza virus vaccine, split virus (incl. purified surface antigen) Odell Harrington Other [employer] Other 03-26-2021 influenza virus vaccine, unspecified formulation DO [employer] Work Phone: [facility] 08-16-2020 COVID-19 Vaccine Pfi zer - Documentation Purposes Only Odell Harrington Other [facility] 07-26-2020 COVID-19 Vaccine Moderna - Documentation Purposes Only Odell Harrington Other [facility] 07-26-2020 COVID-19 Vaccine Pfi zer - Documentation Purposes Only Odell Harrington Other [facility] 03-16-2020 influenza virus vaccine, split virus (incl. purified surface antigen) Odell Harrington Other [employer] Other 03-16-2020 influenza virus vaccine, unspecified formulation DO [employer] Work Phone: [facility] 03-15-2020 influenza, injectabl e, quadrivalent, preservative free DO Odell [employer] Work Phone: [facility] 04-16-2019 influenza virus vaccine, split virus (incl. purified surface antigen) Odell Harrington Other [employer] Other 04-16-2019 influenza virus vaccine, unspecified formulation DO [employer] Work Phone: [facility] 04-20-2018 influenza virus vaccine, split virus (incl. purified surface antigen) Odell Harrington Other [employer] Other 04-20-2018 influenza virus vaccine, unspecified formulation DO [employer] Phone: [facility] 04-20-2018 Seasonal trivalent influenza vaccine, adjuvanted, preservative free DO [employer] Work Phone: [facility] 05-21-2017 influenza virus vaccine, split virus (incl. purified surface antigen) [employer] Other [facility] [employer] Other 05-21-2017 influenza virus vaccine, unspecified formulation DO [employer] Work Phone: [facility] 05-21-2017 influenza, high dose seasonal, preservative-free DO [employer] Phone: [facility] 04-23-2016 influenza virus vaccine, split virus (incl. purified surface antigen) [employer] Other [employer] Other 04-23-2016 influenza virus vaccine, unspecified formulation DO [employer] Phone: [facility] 04-23-2016 influenza, high dose seasonal, preservative-free DO [employer] Phone: [facility] 05-11-2015 pneumococcal conjuga te vaccine, 13 valent [employer] Other [facility] 04-27-2015 tetanus and diphther ia toxoids, adsorbed, preservative free, for adult use (5 Lf of tetanus toxoid and 2 Lf of diphtheria toxoid) [employer] Other [facility] 04-12-2015 influenza, injectabl e, quadrivalent, preservative free DO [employer] Work Phone: [facility] 04-12-2015 pneumococcal polysaccharide vaccine, 23 valent [employer] Other [facility] 04-08-2014 tetanus and diphther ia toxoids, adsorbed, preservative free, for adult use (5 Lf of tetanus toxoid and 2 Lf of diphtheria toxoid) [employer] Other [facility] 01-05-2014 zoster vaccine, live DO Noemí Harrington Work Phone: [facility] 05-10-2013 tetanus and diphther ia toxoids, adsorbed, preservative free, for adult use (5 Lf of tetanus toxoid and 2 Lf of diphtheria toxoid) Odell [employer] Other [facility] 03-04-2012 tetanus and diphther ia toxoids, adsorbed, preservative free, for adult use (5 Lf of tetanus toxoid and 2 Lf of diphtheria toxoid) Odell [employer] Other [facility] 05-11-2008 pneumococcal polysaccharide vaccine, 23 valent Odell [employer] Other [facility] 01-21-2000 tetanus toxoid, adsorbed DO Odell Harrington Work Phone: [facility] Payers Date Payer Category Payer Private Health Insurance [id number] 2010 Medicare [id number] 1959 Medicare [id number] 2.1 [id number] 1959 Private Health Insurance [facility] [id number] 1942 Unknown [id number] 2.16.84 [id number] 1942 Unknown [id number] 2.16.84 0.1.706319.3.579.2.593 1942 Unknown [id number] 2.16.84 0.1.625480.3.579.2.593 1942 Unknown [id number] 2.16.84 0.1.388555.3.579.2.593 1942 Unknown [id number] 2.16.84 0.1.824161.3.579.2.593 1942 Unknown [id number] 2.16.84 0.1.964989.3.579.2.593 1942 Unknown [id number] 2.16.84 0.1.418088.3.579.2.593 1942 Unknown [id number] 2.16.84 0.1.562764.3.579.2.1259 1942 Unknown [id number] 2.16.84 0.1.635531.3.579.2.1259 1942 Unknown [id number] 2.16.84 0.1.129415.3.579.2.1259 1942 Unknown [id number] 2.16.84 0.1.216748.3.579.2.1259 1942 Unknown [id number] 2.16.84 0.1.953430.3.579.2.1259 1942 Unknown [id number] 2.16.84 0.1.015400.3.579.2.1259 1942 Unknown [id number] 2.16.84 0.1.631875.3.579.2.1259 1942 Unknown [id number] 2.16.84 0.1.623903.3.579.2.1259 Social History Date Type Detail Facility Sex Assigned At [employer] Other Start: 08-20-2023 End: 08-02-2024 Tobacco smoking status PAIS Never smoked tobacco (finding) [facility] Start: 1940 Sex Assigned At Female [facility] Start: 10-23-2023 Tobacco smoking status [facility] Tobacco smoking consumption unknown [facility] Start: 1940 Sex assigned at Not on file [facility] Start: 07-08-2024 End: 08-16-2024 Sex Female (finding) [facility] NEGATED: Highlighted row [facility] Medical Equipment Procedure Code Equipment Code Equipment Origin al Text Equipment Identifier Dates Arthroplasty, knee, total, minimally invasive Orthopaedic cement, non-medicated ()[id number] FDA Start: 09-01-2023 Arthroplasty, knee, total, minimally invasive Uncoated knee femur prosthesis ()[id number] FDA Start: 09-01-2023 Arthroplasty, knee, total, minimally invasive Tibial insert ()[id number] FDA Start: 09-01-2023 Arthroplasty, knee, total, minimally invasive Polyethylene patella prosthesis ()[id number] FDA Start: 09-01-2023 Arthroplasty, knee, total, minimally invasive Knee stem ()[id number] FDA Start: 09-01-2023 Arthroplasty, knee, total, minimally invasive Uncoated knee tibia prosthesis, metallic ()[id number] FDA Start: 09-01-2023 Arthroplasty, hip, total, anterior approach Acetabular shell ()[id number] FDA Start: 07-19-2024 Arthroplasty, hip, total, anterior approach Orthopaedic bone screw, non-bioabsorbable, sterile ()[id number] FDA Start: 07-19-2024 Arthroplasty, hip, total, anterior approach Orthopaedic bone screw, non-bioabsorbable, sterile ()[id number] FDA Start: 07-19-2024 Arthroplasty, hip, total, anterior approach Ceramic femoral head prosthesis ()[id number] FDA Start: 07-19-2024 Arthroplasty, hip, total, anterior approach Coated hip femur prosthesis, modular ()[id number] FDA Start: 07-19-2024 Arthroplasty, hip, total, anterior approach Non-constrained polyethylene acetabular liner [id number] FDA Start: 07-19-2024 Goals Date Patient Goal Desired Activity /State Functional Status Date Assessment Result Facility 08-02-2024 Functional status Patient is Pro gressing Toward Baseline [facility] Work Phone: 07-20-2024 Functional status Patient is Pro gressing Toward Baseline [facility] Work Phone: 09-15-2023 Functional status Patient at Baseline [facility] Work Phone: Mental Status Date Assessment Result Facility 08-02-2024 Cognitive function Cognitive Sta tus Patient at Baseline [facility] Work Phone: 07-20-2024 Cognitive function Cognitive Sta tus Patient at Baseline [facility] Work Phone: 09-15-2023 Cognitive function Cognitive Sta tus Patient at Baseline [facility] Work Phone: Clinical Notes 07-24-2022 to 08-02-2024 Note Date & Type Note Facility 08-02-2024 Discharge summary Note Date/Time August 02, 2024 1:50pm [facility] [address] [place] [address] Discharge Summary Signed Patient: Ashley Brown MR#: [id number] : 1940 Acct:[id number] Age/Sex: 83 / F Adm Date: 5 Loc: Room: [address] [place] [address]: Dilip Laird MD Copies to: DO Dilip Wheat MD~ Providers Date of Discharge: 08/02/24 Discharging Provider: Dilip Laird Primary Care Provider: Odell Harrington Consults: 07/20/24 17:07 Consult to Adult Hospitalist Routine Comment: Consulting Provider: Community Hospitalist (Adult) Reason For Exam: HTN Has Provider Been Notified: Yes Date of Notification: 07/20/24 Time of Notification: 17:10 Consult to Dietitian Routine Comment: Reason for Consult: PO Supplement Eval&Order Consult to Occupational Therapy Routine Comment: Physician Instructions: Consult to OT for:: Evaluation and Treat Consult to Physical Therapy Routine Comment: Physician Instructions: Consult to PT for:: Evaluation and Treat Speech Admit Screen Routine Comment: Discharge Diagnosis (1) S/P total left hip arthroplasty: (2) Postoperative hematoma: (3) Insomnia: (4) Impaired mobility and activities of daily living: (5) Obesity: Final Diagnosis Final Discharge Diagnosis: as above Summary Hospital Course Hospital course: Ms. Brown is a 83 year old female with past medical history of essential hypertension, obesity, osteoarthritis, paroxysmal A-fib, CAD, s/p CABG who is known to us from a previous rehab admission back in August 2023 after an electiveright knee, now presenting with functional impairments s/p elective left total hip arthroplasty. She failed reasonable conservative treatment strategies and underwent the above procedure by Dr. Pichardo on 07/19/2024. Operative procedure as well as her hospital stay were uncomplicated. She is to weight-bear as tolerated to the lower extremity. Was started on twice daily aspirin for DVT prophylaxis. Rehabilitation course: Rehabilitation stay was uncomplicated. Tolerated without significant complication.. She progressed to being standby assist independent with her functional mobility and self-care. She was weaned off all opioid medication. Her wound VAC was taken down before discharge. She has close outpatient follow-up with primary care physician and orthopedics arranged. She should remain on twice daily aspirin for DVT prophylaxis. She will participate in outpatient therapy. Condition Condition at Discharge: Stable Status at Discharge Functional status at discharge: uses cane/walker Overall status at discharge: patient is progressing back to baseline Time Spent with Patient Time spent providing/coordinating discharge services (# min): 45 Specific discharge activities: Total time spent discharging [...] Prescribed necessary DME at discharge when indicated Discharge Plan Discharge Plan Patient Disposition: Home Activity: Ambulate as Tolerated Diet: Regular Additional Instructions: -Activity: Ambulate as tolerated. -Diet: Regular diet. -Wound care to left hip incision. Prevena wound vac was removed on 08/02/24. Thereis a zipline dressing in place, leave this intact until your follow up appointment with Orthopedic Surgeon (see below for appointment details). May shower, but no soaking, submerging, or scrubbing incision. Do not apply any lotions, ointments, etc on or near incision. You will have Outpatient Physical and Occupational Therapy at [facility] (Address: [address] [place], [place] [address] [place], [place]/ ext. [phone]). The order for this has already been sent to them, and they will call you directly to schedule your evaluation date(s)/times. If you donot hear from them by Friday, please call them directly at the phone number listed above. You have been given prescriptions for new [...] them prior to your appointment. Instructions: Total Hip Car Transfer, Postop Total Hip Replacement Exercises Lying Down, Postop Total Hip Replacement Exercises Standing, Know your Meds Prescriptions: New acetaminophen [Tylenol] 325 mg Tablet 650 mg PO Q6H PRN (Reason: Pain) Qty: 0 0RF zolpidem 10 mg Tablet 10 mg PO QHS Qty: 0 0RF duloxetine 20 mg Capsule,Delayed Release(Dr/Ec) 20 mg PO DAILY 90 Days Qty: 90 0RF Continued metoprolol succinate 25 mg tablet extended release 24 hr 25 mg PO QPM 30 Days Qty: 30 0RF vitamin E 450 mg PO DAILY diphenhydramine HCl [Allergy (diphenhydramine)] 25 mg tablet 25 mg PO QAM alprazolam 0.25 mg tablet 0.25 mg PO DAILY PRN (Reason: anxiety) cholecalciferol (vitamin D3) [Vitamin D3] 10 mcg (400 unit) capsule 800 unit PO DAILY aspirin 81 mg tablet,delayed release (DR/EC) 81 mg PO BID 22 Days Qty: 40 0RF Rx Instructions: DO NOT RECONCILE UNTIL DOS:07/19/24. MED TO BED losartan 25 mg tablet 25 mg PO QAM ezetimibe [Zetia] 10 mg tablet 10 mg PO HS Systane Balance 0.6 % drops 1 drp Eye-Both DAILY PRN (Reason: dry eye(s)) atorvastatin 20 mg tablet 10 mg PO QHS omeprazole 20 mg capsule,delayed release(DR/EC) 20 mg PO DAILY zolpidem 10 mg tablet 10 mg PO QHS 90 Days Qty: 90 1RF Held aspirin 81 mg Tablet,Delayed Release (Dr/Ec) 81 mg PO DAILY Hold Instructions: Resume on 08/25/24. Discontinued celecoxib 200 mg capsule See Rx Instructions .ROUTE .COMPLEX Qty: 30 5RF Dose Instruction: TAKE 1 CAPSULE BY MOUTH EVERY DAY Rx Instructions: TAKE 1 CAPSULE BY MOUTH EVERY DAY acetaminophen [Arthritis Pain Reliever] 650 mg tablet extended release 1,300 mg PO HS sennosides-docusate sodium [Senokot-S] 8.6-50 mg tablet 2 tab PO daily 30 Days Qty: 60 0RF Rx Instructions: DO NOT RECONCILE UNTIL DOS:07/19/24. MED TO BED cefadroxil 500 mg capsule 500 mg PO Q12H 7 Days Qty: 14 0RF Rx Instructions: DO NOT RECONCILE UNTIL DOS:07/19/24. MED TO BED acetaminophen 500 mg tablet 1,000 mg PO Q8H 30 Days Qty: 180 0RF Rx Instructions: DO NOT RECONCILE UNTIL DOS:07/19/24. MED TO BED tramadol 50 mg tablet 50 mg PO q6h PRN (Reason: Pain) 7 Days Qty: 28 0RF Rx Instructions: DO NOT RECONCILE UNTIL DOS:07/19/24. MED TO BED ondansetron HCl 4 mg tablet 4 mg PO Q8H PRN (Reason: Nausea) Qty: 9 0RF Rx Instructions: DO NOT RECONCILE UNTIL DOS:07/19/24. MED TO BED oxycodone 5 mg tablet 5 mg PO Q4H PRN (Reason: Pain) 7 Days Qty: 40 0RF Rx Instructions: DO NOT RECONCILE UNTIL DOS:07/19/24. MED TO BED prednisone 10 mg tablet 10 mg PO daily 10 Days Qty: 10 0RF Rx Instructions: DO NOT RECONCILE UNTIL DOS:07/19/24. MED TO BED Follow Up: Odell Harrington DO [Primary Care Provider] - 09/10/24 10:30 am (Call to schedule follow up appointment with PCP after discharge) Dilip Laird MD [Active Staff] - (Follow up with rehab physician as needed) Mgano Pichardo II, MD [Active Staff] - 08/05/24 1:45 pm Exam Physical Exam Vital Signs: Temp Pulse Resp BP Pulse Ox O2 Del Method 97.8 F 58 L 14 155/77 H 97 Room Air 08/02/24 05:00 08/02/24 05:00 08/02/24 05:00 08/02/24 05:00 08/02/24 05:00 08/02/24 05:00 Narrative: General: Awake, alert, oriented x3 HENT: Normal to inspection, normocephalic, atraumatic Eyes: PERRL, normal conjunctiva and sclera Neck: Normal ROM, normal visual inspection. Trachea midline. Cardio: Regular heart rate and rhythm Respiratory: Clear to auscultation bilaterally. Normal respiratory effort. No respiratory distress. GI: Abdomen soft, nontender, nondistended, active bowel sounds x4 quadrants Neuro: CN II-XII intact. Strength 5/5, equal bilaterally Extremities: Left hip incision, wound VAC dressing intact. Large hematoma to the lateral/posterior thigh. Tender to palpation. Psych: Mood and affect appropriate. Normal speech. Documented By: Dilip Laird MD 08/02/24905 Signed By: <Electronically signed by Dilip Laird MD> 08/02/24 [facility] Work Phone: 1(194) 979-128802-03-2025 [place] [id number] Discharge Summary Signed Patient: Ashley Brown MR#: [id number] : 1940 Acct:[id number] Age/Sex: 83 / F Adm Date: 5 Loc: Room: [address] [place] [address]: Dilip Laird MD Copies to: DO Dilip Wheat MD~ Providers Date of Discharge: 08/02/24 Discharging Provider: Dilip Laird Primary Care Provider: Odell Harrington Consults: 07/20/24 17:07 Consult to Adult Hospitalist Routine Comment: Consulting Provider: Community Hospitalist (Adult) Reason For Exam: HTN Has Provider Been Notified: Yes Date of Notification: 07/20/24 Time of Notification: 17:10 Consult to Dietitian Routine Comment: Reason for Consult: PO Supplement Eval&Order Consult to Occupational Therapy Routine Comment: Physician Instructions: Consult to OT for:: Evaluation and Treat Consult to Physical Therapy Routine Comment: Physician Instructions: Consult to PT for:: Evaluation and Treat Speech Admit Screen Routine Comment: Discharge Diagnosis (1) S/P total left hip arthroplasty: (2) Postoperative hematoma: (3) Insomnia: (4) Impaired mobility and activities of daily living: (5) Obesity: Final Diagnosis Final Discharge Diagnosis: as above Summary Hospital Course Hospital course: Ms. Brown is a 83 year old female with past medical history of essential hypertension, obesity, osteoarthritis, paroxysmal A-fib, CAD, s/p CABG who is known to us from a previous rehab admission backin August 2023 after an electiveright knee, now presenting with functional impairments s/p elective left total hip arthroplasty. She failed reasonable conservative treatment strategies and underwent the above procedure by Dr. Pichardo on 07/19/2024. Operative procedure as well as her hospital stay were uncomplicated. She is to weight-bear as tolerated to the lower extremity. Was started on twice daily aspirin for DVT prophylaxis. Rehabilitation course: Rehabilitation stay was uncomplicated. Tolerated without significant complication.. She progressed to being standby assist independent with her functional mobility and self-care. She was weaned off all opioid medication. Her wound VAC was taken down before discharge. She has close outpatient follow-up with primary care physician and orthopedics arranged. She should remain on twice daily aspirin for DVT prophylaxis. She will participate in outpatient therapy. Condition Condition at Discharge: Stable Status at Discharge Functional status at discharge: uses cane/walker Overall status at discharge: patient is progressing back to baseline Time Spent with Patient Time spent providing/coordinating discharge services (# min): 45 Specific discharge activities: Total time spent discharging [...] Prescribed necessary DME at discharge when indicated Discharge Plan Discharge Plan Patient Disposition: Home Activity: Ambulate as Tolerated Diet: Regular Additional Instructions: -Activity: Ambulate as tolerated. -Diet: Regular diet. -Wound care to left hip incision. Prevena wound vac was removed on 08/02/24. Thereis a zipline dressing in place, leave this intact until your follow up appointment with Orthopedic Surgeon (see below for appointment details). May shower, but no soaking, submerging, or scrubbing incision. Do not applyany lotions, ointments, etc on or near incision. You will have Outpatient Physical and Occupational Therapy at [facility](Address: [address] [place] [address] , [place], [place]/ ext. [phone]). The order for this has already been sent to them, and they will call you directly to schedule your evaluation date(s)/times. If you donot hear from them by Friday, please call them directly at the phone number listed above. You have been given prescriptions for new and/or needed medications. These prescriptions are fora one-time fill only, with no re-fills. For further re- fills going forward, you will need to address [...] remember to wear a mask to all appointments.If you develop any symptoms (cough, fever/chills, shortness of breath, sore throat, nausea/vomiting, etc.) please contact your provider's office to inform them prior to your appointment. Instructions: Total Hip Car Transfer, Postop Total Hip Replacement Exercises Lying Down, Postop Total Hip Replacement Exercises Standing, Know your Meds Prescriptions: New acetaminophen [Tylenol] 325 mg Tablet 650 mg PO Q6H PRN (Reason: Pain) Qty: 0 0RF zolpidem 10 mg Tablet 10 mg PO QHS Qty: 0 0RF duloxetine 20 mg Capsule,Delayed Release(Dr/Ec) 20 mg PO DAILY 90 Days Qty: 90 0RF Continued metoprolol succinate 25 mg tablet extended release 24 hr 25 mg PO QPM 30 Days Qty: 30 0RF vitamin E 450 mg PO DAILY diphenhydramine HCl [Allergy (diphenhydramine)] 25 mg tablet 25 mg PO QAM alprazolam 0.25 mg tablet 0.25 mg PO DAILY PRN (Reason: anxiety) cholecalciferol (vitamin D3) [Vitamin D3] 10 mcg (400 unit) capsule 800 unit PO DAILY aspirin 81 mg tablet,delayed release (DR/EC) 81 mg PO BID 22 Days Qty: 40 0RF Rx Instructions: DO NOT RECONCILE UNTIL DOS:07/19/24. MED TO BED losartan 25 mg tablet 25 mg PO QAM ezetimibe [Zetia] 10 mg tablet 10 mg PO HS Systane Balance 0.6 % drops 1 drp Eye-Both DAILY PRN (Reason: dry eye(s)) atorvastatin 20 mg tablet 10 mg PO QHS omeprazole 20 mg capsule,delayed release(DR/EC) 20 mg PO DAILY zolpidem 10 mg tablet 10 mg PO QHS 90 Days Qty: 90 1RF Held aspirin 81 mg Tablet,Delayed Release (Dr/Ec) 81 mg PO DAILY Hold Instructions: Resume on 08/25/24. Discontinued celecoxib 200 mg capsule See Rx Instructions .ROUTE .COMPLEX Qty: 30 5RF Dose Instruction: TAKE 1 CAPSULE BY MOUTH EVERY DAY Rx Instructions: TAKE 1 CAPSULE BY MOUTH EVERY DAY acetaminophen [Arthritis Pain Reliever] 650 mg tablet extended release 1,300 mg PO HS sennosides-docusate sodium [Senokot-S] 8.6-50 mg tablet 2 tab PO daily 30 Days Qty: 60 0RF Rx Instructions: DO NOT RECONCILE UNTIL DOS:07/19/24. MED TO BED cefadroxil 500 mg capsule 500 mg PO Q12H 7 Days Qty: 14 0RF Rx Instructions: DO NOT RECONCILE UNTIL DOS:07/19/24. MED TO BED acetaminophen 500 mg tablet 1,000 mg PO Q8H 30 Days Qty: 180 0RF Rx Instructions: DO NOT RECONCILE UNTIL DOS:07/19/24. MED TO BED tramadol 50 mg tablet 50 mg PO q6h PRN (Reason: Pain) 7 Days Qty: 28 0RF Rx Instructions: DO NOT RECONCILE UNTIL DOS:07/19/24. MED TO BED ondansetron HCl 4 mg tablet 4 mg PO Q8H PRN (Reason: Nausea) Qty: 9 0RF Rx Instructions: DO NOT RECONCILE UNTIL DOS:07/19/24. MED TO BED oxycodone 5 mg tablet 5 mg PO Q4H PRN (Reason: Pain) 7 Days Qty: 40 0RF Rx Instructions: DO NOT RECONCILE UNTIL DOS:07/19/24. MED TO BED prednisone 10 mg tablet 10 mg PO daily 10 Days Qty: 10 0RF Rx Instructions: DO NOT RECONCILE UNTIL DOS:07/19/24. MED TO BED Follow Up: Odell Harrington DO [Primary Care Provider] - 09/10/24 10:30 am (Call to schedule follow up appointment with PCP after discharge) Dilip Laird MD [Active Staff] - (Follow up with rehab physician as needed) Magno Pichardo II, MD [Active Staff] - 08/05/24 1:45 pm Exam Physical Exam Vital Signs: Temp Pulse Resp BP Pulse Ox O2 Del Method 97.8 F 58 L 14 155/77 H 97 Room Air 08/02/24 05:00 08/02/24 05:00 08/02/24 05:00 08/02/24 05:00 08/02/24 05:00 08/02/24 05:00 Narrative: General: Awake, alert, oriented x3 HENT: Normal to inspection, normocephalic, atraumatic Eyes: PERRL, normal conjunctiva and sclera Neck: Normal ROM, normal visual inspection. Trachea midline. Cardio: Regular heart rate and rhythm Respiratory: Clear to auscultation bilaterally. Normal respiratory effort. No respiratory distress. GI: Abdomen soft, nontender, nondistended, active bowel sounds x4 quadrants Neuro: CN II-XII intact. Strength 5/5, equal bilaterally Extremities: Left hip incision, wound VAC dressing intact. Large hematoma to the lateral/posterior thigh. Tender to palpation. Psych: Mood and affect appropriate. Normal speech. Documented By: Dilip Laird MD 08/02/24905 Signed By: 08/02/24 1350 [facility]02-01-2025 Progress note Author Elijah Mayers [facility] Note Date/Time July 31, 2024 7 :18pm [facility] [address] [place] [address] Physiatry(Rehab) Progress Note Signed Patient: Ashley Brown MR#: [id number] : 1940 Acct:[id number] Age/Sex: 83 / F Adm Date: 5 Loc: Room: 2A2014-1 Type: ADM IN Attending Dr: Dilip Laird MD Copies to: ~ Date of Service: 07/31/2024 Subjective Subjective Narrative: Ms. Brown is a 83 year old female with past medical history of essential hypertension, obesity, osteoarthritis, paroxysmal A-fib, CAD, s/p CABG who is known to us from a previous rehab admission back in August 2023 after an electiveright knee, now presenting with functional impairments s/p elective left total hip arthroplasty. She failed reasonable conservative treatment strategies and underwent the above procedure by Dr. Pichardo on 07/19/2024. Operative procedure as well as her hospital stay were uncomplicated. She is to weight-bear as tolerated to the lower extremity. Was started on twice daily aspirin for DVT prophylaxis. Interval History: No major issues today. Doing well with therapy. No concerns. Pain controlled. Requesting to be independent in room. To discuss with therapy. Review of Systems Review of Systems All other systems reviewed & are negative unless noted below or in HPI Exam Physical Exam Vital Signs: Temp Pulse Resp BP Pulse Ox O2 Del Method 97.7 F 62 18 148/65 H 98 Room Air 07/31/24 15:53 07/31/24 15:53 07/31/24 15:53 07/31/24 15:53 07/31/24 15:53 07/31/24 15:53 Narrative: General: Awake, alert, oriented x3 HENT: Normal to inspection, normocephalic, atraumatic Eyes: PERRL, normal conjunctiva and sclera Neck: Normal ROM, normal visual inspection. Respiratory: Normal respiratory effort. No respiratory distress. GI: Abdomen soft, nontender, nondistended Neuro: CN II-XII intact. Strength 5/5, equal bilaterally Extremities: Left hip incision, wound VAC dressing intact. Large hematoma to the lateral/posterior thigh. Tender to palpation. Psych: Mood and affect appropriate. Normal speech. Objective Labs 07/26/24 04:59 07/26/24 04:59 Medications and Allergies Allergies and Active Meds: Allergies oxycodone (Percocet) Allergy (Unknown, Verified 07/19/24 09:05) Vomiting sulfamethoxazole (Bactrim) Allergy (Unknown, Verified 07/19/24 09:05) Unknown Reaction trimethoprim (Bactrim) Allergy (Unknown, Verified 07/19/24 09:05) Unknown Reaction hydrocodone (From Vicodin) Allergy (Verified 07/19/24 09:05) Vomiting Rocuronium [place] Allergy (Unknown, Uncoded 08/20/23 14:19) breathing difficulty Active Medications Generic Name Dose Route Start Last Admin Trade Name Freq PRN Reason Stop Dose Admin Acetaminophen 650 mg 07/27/24 10:22 07/31/24 15:52 Acetaminophen 325 Mg Tablet PO 07/22/25 11:14 650 mg Q6H PRN Administration Pain Al Hydrox/Mg Hydrox/Simethicone 30 ml 07/20/24 17:06 Mag Hydrox/Al Hydrox/Simeth 30 Ml Udc PO 07/20/25 17:05 Q4H PRN Indigestion Alprazolam 0.25 mg 07/20/24 17:13 07/31/24 00:44 Alprazolam 0.25 Mg Tablet PO 01/16/25 17:12 0.25 mg DAILY PRN Administration anxiety Aspirin 81 mg 07/20/24 21:00 07/31/24 09:48 Aspirin 81 Mg Tablet. PO 07/20/25 20:59 81 mg BID ERNIE Administration Atorvastatin Calcium 10 mg 07/20/24 22:00 07/20/24 21:25 Atorvastatin 10 Mg Tablet PO 07/20/25 21:59 10 mg QHS ERNIE Administration Bisacodyl 10 mg 07/20/24 17:06 Bisacodyl 10 Mg Supp.Rect MA 07/20/25 17:05 DAILY PRN Constipation Diphenhydramine HCl 25 mg 07/21/24 09:00 07/31/24 09:48 Diphenhydramine 25 Mg Capsule PO 07/21/25 08:59 25 mg QAM ERNIE Administration Docusate Sodium 100 mg 07/20/24 17:06 Docusate 100 Mg Capsule PO 07/20/25 17:05 BID PRN Constipation Docusate Sodium 283 mg 07/20/24 17:06 Docusate Enema 283 Mg/5 Ml Enema MA 07/20/25 17:05 DAILY PRN Constipation Duloxetine HCl 20 mg 07/27/24 09:00 07/31/24 09:48 Duloxetine 20 Mg Capsule. PO 07/27/25 08:59 20 mg DAILY ERNIE Administration Ezetimibe 10 mg 07/20/24 22:00 07/30/24 21:47 Ezetimibe 10 Mg Tablet PO 07/20/25 21:59 10 mg HS ERNIE Administration Lactulose 30 gm 07/20/24 17:06 Lactulose 20 Gm/30 Ml Udc PO 07/20/25 17:05 DAILY PRN Constipation Losartan Potassium 25 mg 07/27/24 21:00 07/31/24 09:47 Losartan 25 Mg Tablet PO 07/27/25 20:59 25 mg BID ERNIE Administration Metoprolol Succinate 25 mg 07/20/24 21:00 07/30/24 21:48 Metoprolol Succinate 25 Mg Tab.Er.24h PO 07/20/25 20:59 25 mg QPM ERNIE Administration Ondansetron HCl 4 mg 07/20/24 17:45 Ondansetron Odt 4 Mg Tab.Rapdis PO 07/20/25 17:44 Q8H PRN PRN Pantoprazole Sodium 40 mg 07/21/24 09:00 07/31/24 09:47 Pantoprazole 40 Mg Tablet. PO 07/21/25 08:59 40 mg DAILY ERNIE Administration Senna/Docusate Sodium 2 tab 07/21/24 09:00 07/31/24 09:48 Sennosides/Docusate 8.6-50mg 1 Tab Tablet PO 07/21/25 08:59 Not Given DAILY ERNIE Sennosides 17.2 mg 07/21/24 12:00 Sennosides 8.6 Mg Tablet PO 07/21/25 11:59 DAILY@12 PRN If no BM in 2 days Sodium Chloride 0 ml 07/20/24 17:06 Sodium Chloride 0.9 % 10 Ml Syringe IV-PUSH 07/20/25 17:05 PRN PRN Flush Vitamin D 20 mcg 07/21/24 09:00 07/31/24 09:48 Cholecalciferol 10 Mcg (400 Units) Tablet PO 07/21/25 08:59 20 mcg DAILY ERNIE Administration Zolpidem Tartrate 10 mg 07/22/24 22:00 07/30/24 21:47 Zolpidem 10 Mg Tablet PO 01/18/25 21:59 10 mg QHS ERNIE Administration Assessment/Plan Assessment/Plan (1) S/P total left hip arthroplasty: Plan: PT to improve pt's strength, endurance, bed mobility, transfers (sit-stand), standing balance, gait quality on level surfaces and stairs, coordination and functional ADL skills. Will also work to improve pt's safety awareness during transfers and ambulation. OT for basic ADL re-training (bathing, dressing, toileting, continence, grooming, feeding, transferring), to increase activity tolerance and functional mobility and to evaluate for adaptive and assistive devices. Will work to improve pt's endurance and educate pt on fall prevention and energy conservationtechniques-pacing strategies and proper breathing techniques during functional tasks. Patient education Pressure ulcer prophylaxis; encourage mobilization, frequent postural changes, pressure-relief techniques DVT prophylaxis Encourage deep breathing exercise incentive spirometry. Monitor bladder. Toileting schedule. Continue current bladder management, with scans as needed and CIC if needed. Start bowel care program every day to obtain continence, prevent ileus. Maintain fall precautions Gait and balance retraining Provision of the necessary gait aids and functional adaptive equipment to enhance the patient's a functional sabianist Encourage deep breathing exercises and incentive spirometry RD evaluation Ensure adequate nutrition and hydration Discharge planning. (2) Postoperative hematoma: (3) Insomnia: (4) Impaired mobility and activities of daily living: (5) Obesity: Qualifiers: Obesity type: due to excess calories Obesity classification: adult class 1 (BMI 30 - 34.9) Serious obesity comorbidity presence: with serious comorbidity Body mass index: BMI 33.0-33.9 Qualified Code(s): E66.09 - Other obesity due to excess calories; Z68.33 - Body mass index [BMI] 33.0-33.9, adult Plan 83-year-old female with past medical history as above who presents to acute inpatient rehabilitation unit with functional impairments in the setting of elective left total hip arthroplasty. * No major issues today * Can be IND in room if therapy agreeable * BP regimen adjusted by hospitalist team. Will monitor. Blood pressure at 10:00 this morning after meds 136/70. Will reevaluate regimen at discharge early next week if needed. Patient education Pressure ulcer prophylaxis; encourage mobilization, frequent postural changes, pressure-relief techniques DVT prophylaxis Encourage deep breathing exercise incentive spirometry. Monitor [...] equipment to enhance the patient's a functional sabianist Ensure adequate nutrition and hydration Sleep Discharge planning. Patient was personally seen by me, Dr. Mayers, on the day of encounter, reviewed the history and the relevant portions of the chart, including current orders, allied health and engagement quality consultant notes, labs/imaging and performed timmons elements of exam and I formulated the plan of care and facilitated the medical decision making. I completed a substantive portion of this encounter, the medical decision making portion of this note in its entirety, including Allied health note review, nursing note review, engagement quality consultant note review, discussion with nursing and case management, and more than 50% of my time was spent on counseling and coordination of care, time spent 26 minutes Documented By: Elijah Mayers MD 1914 Signed By: <Electronically signed by Elijah Mayers MD> 07/31/241917 [facility] Work Phone: [phone]) 144-417602-01-2025 [place] [address] Physiatry(Rehab) Progress Note Signed Patient: Ashley Brown MR#: [id number] : 1940 Acct:[id number] Age/Sex: 83 / F Adm Date: 5 Loc: 5T Room: 8T3121-3 Type: ADM IN Attending Dr: Dilip Laird MD Copies to: ~ Date of Service: 07/31/2024 Subjective Subjective Narrative: Ms. Brown is a 83 year old female with past medical history of essential hypertension, obesity, osteoarthritis, paroxysmal A-fib, CAD, s/p CABG who is known to us from a previous rehab admission backin August 2023 after an electiveright knee, now presenting with functional impairments s/p elective left total hip arthroplasty. She failed reasonable conservative treatment strategies and underwent the above procedure by Dr. Pichardo on 07/19/2024. Operative procedure as well as her hospital stay were uncomplicated. She is to weight-bear as tolerated to the lower extremity. Was started on twice daily aspirin for DVT prophylaxis. Interval History: No major issues today. Doing well with therapy. No concerns. Pain controlled. Requesting to be independent in room. To discuss with therapy. Review of Systems Review of Systems All other systems reviewed & are negative unless noted below or in HPI Exam Physical Exam Vital Signs: Temp Pulse Resp BP Pulse Ox O2 Del Method 97.7 F 62 18 148/65 H 98 Room Air 07/31/24 15:53 07/31/24 15:53 07/31/24 15:53 07/31/24 15:53 07/31/24 15:53 07/31/24 15:53 Narrative: General: Awake, alert, oriented x3 HENT: Normal to inspection, normocephalic, atraumatic Eyes: PERRL, normal conjunctiva and sclera Neck: Normal ROM, normal visual inspection. Respiratory: Normal respiratory effort. No respiratory distress. GI: Abdomen soft, nontender, nondistended Neuro: CN II-XII intact. Strength 5/5, equal bilaterally Extremities: Left hip incision, wound VAC dressing intact. Large hematoma to the lateral/posterior thigh. Tender to palpation. Psych: Mood and affect appropriate. Normal speech. Objective Labs 07/26/24 04:59 07/26/24 04:59 Medications and Allergies Allergies and Active Meds: Allergies oxycodone (Percocet) Allergy (Unknown, Verified 07/19/24 09:05) Vomiting sulfamethoxazole (Bactrim) Allergy (Unknown, Verified 07/19/24 09:05) Unknown Reaction trimethoprim (Bactrim) Allergy (Unknown, Verified 07/19/24 09:05) Unknown Reaction hydrocodone (From Vicodin) Allergy (Verified 07/19/24 09:05) Vomiting Rocuronium [place] Allergy (Unknown, Uncoded 08/20/23 14:19) breathing difficulty Active Medications Generic Name Dose Route Start Last Admin Trade Name Freq PRN Reason Stop Dose Admin Acetaminophen 650 mg 07/27/24 10:22 07/31/24 15:52 Acetaminophen 325 Mg Tablet PO 07/22/25 11:14 650 mg Q6H PRN Administration Pain Al Hydrox/Mg Hydrox/Simethicone 30 ml 07/20/24 17:06 Mag Hydrox/Al Hydrox/Simeth 30 Ml Udc PO 07/20/25 17:05 Q4H PRN Indigestion Alprazolam 0.25 mg 07/20/24 17:13 07/31/24 00:44 Alprazolam 0.25 Mg Tablet PO 01/16/25 17:12 0.25 mg DAILY PRN Administration anxiety Aspirin 81 mg 07/20/24 21:00 07/31/24 09:48 Aspirin 81 Mg Tablet. PO 07/20/25 20:59 81 mg BID ERNIE Administration Atorvastatin Calcium 10 mg 07/20/24 22:00 07/20/24 21:25 Atorvastatin 10 Mg Tablet PO 07/20/25 21:59 10 mg QHS ERNIE Administration Bisacodyl 10 mg 07/20/24 17:06 Bisacodyl 10 Mg Supp.Rect MA 07/20/25 17:05 DAILY PRN Constipation Diphenhydramine HCl 25 mg 07/21/24 09:00 07/31/24 09:48 Diphenhydramine 25 Mg Capsule PO 07/21/25 08:59 25 mg QAM ERNIE Administration Docusate Sodium 100 mg 07/20/24 17:06 Docusate 100 Mg Capsule PO 07/20/25 17:05 BID PRN Constipation Docusate Sodium 283 mg 07/20/24 17:06 Docusate Enema 283 Mg/5 Ml Enema MA 07/20/25 17:05 DAILY PRN Constipation Duloxetine HCl 20 mg 07/27/24 09:00 07/31/24 09:48 Duloxetine 20 Mg Capsule. PO 07/27/25 08:59 20 mg DAILY ERNIE Administration Ezetimibe 10 mg 07/20/24 22:00 07/30/24 21:47 Ezetimibe 10 Mg Tablet PO 07/20/25 21:59 10 mg HS ERNIE Administration Lactulose 30 gm 07/20/24 17:06 Lactulose 20 Gm/30 Ml Udc PO 07/20/25 17:05 DAILY PRN Constipation Losartan Potassium 25 mg 07/27/24 21:00 07/31/24 09:47 Losartan 25 Mg Tablet PO 07/27/25 20:59 25 mg BID ERNIE Administration Metoprolol Succinate 25 mg 07/20/24 21:00 07/30/24 21:48 Metoprolol Succinate 25 Mg Tab.Er.24h PO 07/20/25 20:59 25 mg QPM ERNIE Administration Ondansetron HCl 4 mg 07/20/24 17:45 Ondansetron Odt 4 Mg Tab.Rapdis PO 07/20/25 17:44 Q8H PRN PRN Pantoprazole Sodium 40 mg 07/21/24 09:00 07/31/24 09:47 Pantoprazole 40 Mg Tablet.Dr PO 07/21/25 08:59 40 mg DAILY ERNIE Administration Senna/Docusate Sodium 2 tab 07/21/24 09:00 07/31/24 09:48 Sennosides/Docusate 8.6-50mg 1 Tab Tablet PO 07/21/25 08:59 Not Given DAILY ERNIE Sennosides 17.2 mg 07/21/24 12:00 Sennosides 8.6 Mg Tablet PO 07/21/25 11:59 DAILY@12 PRN If no BM in 2 days Sodium Chloride 0 ml 07/20/24 17:06 Sodium Chloride 0.9 % 10 Ml Syringe IV-PUSH 07/20/25 17:05 PRN PRN Flush Vitamin D 20 mcg 07/21/24 09:00 07/31/24 09:48 Cholecalciferol 10 Mcg (400 Units) Tablet PO 07/21/25 08:59 20 mcg DAILY ERNIE Administration Zolpidem Tartrate 10 mg 07/22/24 22:00 07/30/24 21:47 Zolpidem 10 Mg Tablet PO 01/18/25 21:59 10 mg QHS ERNIE Administration Assessment/Plan Assessment/Plan (1) S/P total left hip arthroplasty: Plan: PT to improve pt's strength, endurance, bed mobility, transfers (sit-stand), standing balance, gaitquality on level surfaces and stairs, coordination and functional ADL skills. Will also work to improve pt's safety awareness during transfers and ambulation. OT for basic ADL re-training (bathing, dressing, toileting, continence, grooming, feeding, transferring), to increase activity tolerance and functional mobility and to evaluate for adaptive and assistive devices. Will work to improve pt's endurance and educate pt on fall prevention and energy conser vationtechniques-pacing strategies and proper breathing techniques during functional tasks. Patient education Pressure ulcer prophylaxis; encourage mobilization, frequent postural changes, pressure-relief techniques DVT prophylaxis Encourage deep breathing exercise incentive spirometry. Monitor bladder. Toileting schedule. Continue current bladder management, with scans as needed and CIC if needed. Start bowel care program every day to obtain continence, prevent ileus. Maintain fall precautions Gait and balance retraining Provision of the necessary gait aids and functional adaptive equipment to enhance the patient's a functional sabianist Encourage deep breathing exercises and incentive spirometry RD evaluation Ensure adequate nutrition and hydration Discharge planning. (2) Postoperative hematoma: (3) Insomnia: (4) Impaired mobility and activities of daily living: (5) Obesity: Qualifiers: Obesity type: due to excess calories Obesity classification: adult class 1 (BMI 30 - 34.9) Serious obesity comorbidity presence: with serious comorbidity Body mass index: BMI 33.0-33.9 Qualified Code(s): E66.09 - Other obesity due to excess calories; Z68.33 - Body mass index [BMI] 33.0-33.9, adult Plan 83-year-old female with past medical history as above who presents to acute inpatient rehabilitation unit with functional impairments in the setting of elective left total hip arthroplasty. * No major issues today * Can be IND in room if therapy agreeable * BP regimen adjusted by hospitalist team. Will monitor. Blood pressure at 10:00 this morning aftermeds 136/70. Will reevaluate regimen at discharge early next week if needed. Patient education Pressure ulcer prophylaxis; encourage mobilization, frequent postural changes, pressure-relief techniques DVT prophylaxis Encourage deep breathing exercise incentive spirometry. Monitor [...] equipment to enhance the patient's a functional sabianist Ensure adequate nutrition and hydration Sleep Discharge planning. Patient was personally seen by me, Dr. Mayers, on the day of encounter, reviewed the history and the relevant portions of the chart, including current orders, allied health and engagement quality consultant notes, labs/imaging and performed timmons elements of exam and I formulated the plan of care and facilitated the medical decision making. I completed a substantive portion of this encounter, the medical decision making portion of this note in its entirety, including Allied health note review, nursing note review, engagement quality consultant note review, discussion with nursing and case management, and more than 50% of my time was spent on counseling and coordination of care, time spent 26 minutes Documented By: Elijah Mayers MD 1914 Signed By: 07/31/241917 [facility]01-30-2025 Progress note Author Dilip Laird [facility] Note Date/Time July 29, 2024 1 1:57am [facility] [address] [place] [address] Physiatry(Rehab) Progress Note Signed Patient: Ashley Brown MR#: [id number] : 1940 Acct:[id number] Age/Sex: 83 / F Adm Date: 5 Loc: Room: 7E3866-4 Type: ADM IN Attending Dr: Dilip Laird MD Copies to: ~ Date of Service: 07/29/2024 Subjective Subjective Narrative: Ms. Brown is a 83 year old female with past medical history of essential hypertension, obesity, osteoarthritis, paroxysmal A-fib, CAD, s/p CABG who is known to us from a previous rehab admission back in August 2023 after an electiveright knee, now presenting with functional impairments s/p elective left total hip arthroplasty. She failed reasonable conservative treatment strategies and underwent the above procedure by Dr. Pichardo on 07/19/2024. Operative procedure as well as her hospital stay were uncomplicated. She is to weight-bear as tolerated to the lower extremity. Was started on twice daily aspirin for DVT prophylaxis. Interval History: Continues to improve. No new issues. Blood pressure a little higher at times, likely multifactorial and somewhat related to pain. Hesitant to adjust regimen further. I do not want her to be over medicated at discharge which could createa fall risk. Review of Systems Review of Systems All other systems reviewed & are negative unless noted below or in HPI Exam Physical Exam Vital Signs: Temp Pulse Resp BP Pulse Ox O2 Del Method 97.8 F 60 16 136/71 98 Room Air 07/29/24 10:08 07/29/24 10:08 07/29/24 10:08 07/29/24 10:08 07/29/24 10:08 07/29/24 10:08 Narrative: General: Awake, alert, oriented x3 HENT: Normal to inspection, normocephalic, atraumatic Eyes: PERRL, normal conjunctiva and sclera Neck: Normal ROM, normal visual inspection. Trachea midline. Cardio: Regular heart rate and rhythm Respiratory: Clear to auscultation bilaterally. Normal respiratory effort. No respiratory distress. GI: Abdomen soft, nontender, nondistended, active bowel sounds x4 quadrants Neuro: CN II-XII intact. Strength 5/5, equal bilaterally Extremities: Left hip incision, wound VAC dressing intact. Large hematoma to the lateral/posterior thigh. Tender to palpation. Psych: Mood and affect appropriate. Normal speech. Objective Labs 07/26/24 04:59 07/26/24 04:59 Medications and Allergies Allergies and Active Meds: Allergies oxycodone (Percocet) Allergy (Unknown, Verified 07/19/24 09:05) Vomiting sulfamethoxazole (Bactrim) Allergy (Unknown, Verified 07/19/24 09:05) Unknown Reaction trimethoprim (Bactrim) Allergy (Unknown, Verified 07/19/24 09:05) Unknown Reaction hydrocodone (From Vicodin) Allergy (Verified 07/19/24 09:05) Vomiting Rocuronium [place] Allergy (Unknown, Uncoded 08/20/23 14:19) breathing difficulty Active Medications Generic Name Dose Route Start Last Admin Trade Name Freq PRN Reason Stop Dose Admin Acetaminophen 650 mg 07/27/24 10:22 07/28/24 21:52 Acetaminophen 325 Mg Tablet PO 07/22/25 11:14 650 mg Q6H PRN Administration Pain Al Hydrox/Mg Hydrox/Simethicone 30 ml 07/20/24 17:06 Mag Hydrox/Al Hydrox/Simeth 30 Ml Udc PO 07/20/25 17:05 Q4H PRN Indigestion Alprazolam 0.25 mg 07/20/24 17:13 07/27/24 22:41 Alprazolam 0.25 Mg Tablet PO 01/16/25 17:12 0.25 mg DAILY PRN Administration anxiety Aspirin 81 mg 07/20/24 21:00 07/29/24 07:59 Aspirin 81 Mg Tablet. PO 07/20/25 20:59 81 mg BID ERNIE Administration Atorvastatin Calcium 10 mg 07/20/24 22:00 07/20/24 21:25 Atorvastatin 10 Mg Tablet PO 07/20/25 21:59 10 mg QHS ERNIE Administration Bisacodyl 10 mg 07/20/24 17:06 Bisacodyl 10 Mg Supp.Rect MA 07/20/25 17:05 DAILY PRN Constipation Diphenhydramine HCl 25 mg 07/21/24 09:00 07/29/24 07:59 Diphenhydramine 25 Mg Capsule PO 07/21/25 08:59 25 mg QAM ERNIE Administration Docusate Sodium 100 mg 07/20/24 17:06 Docusate 100 Mg Capsule PO 07/20/25 17:05 BID PRN Constipation Docusate Sodium 283 mg 07/20/24 17:06 Docusate Enema 283 Mg/5 Ml Enema MA 07/20/25 17:05 DAILY PRN Constipation Duloxetine HCl 20 mg 07/27/24 09:00 07/29/24 07:59 Duloxetine 20 Mg Capsule. PO 07/27/25 08:59 20 mg DAILY ERNIE Administration Ezetimibe 10 mg 07/20/24 22:00 07/28/24 21:45 Ezetimibe 10 Mg Tablet PO 07/20/25 21:59 10 mg HS ERNIE Administration Lactulose 30 gm 07/20/24 17:06 Lactulose 20 Gm/30 Ml Udc PO 07/20/25 17:05 DAILY PRN Constipation Losartan Potassium 25 mg 07/27/24 21:00 07/29/24 07:59 Losartan 25 Mg Tablet PO 07/27/25 20:59 25 mg BID ERNIE Administration Metoprolol Succinate 25 mg 07/20/24 21:00 07/28/24 21:46 Metoprolol Succinate 25 Mg Tab.Er.24h PO 07/20/25 20:59 25 mg QPM ERNIE Administration Ondansetron HCl 4 mg 07/20/24 17:45 Ondansetron Odt 4 Mg Tab.Rapdis PO 07/20/25 17:44 Q8H PRN PRN Pantoprazole Sodium 40 mg 07/21/24 09:00 07/29/24 07:59 Pantoprazole 40 Mg Tablet. PO 07/21/25 08:59 40 mg DAILY ERNIE Administration Senna/Docusate Sodium 2 tab 07/21/24 09:00 07/29/24 07:59 Sennosides/Docusate 8.6-50mg 1 Tab Tablet PO 07/21/25 08:59 Not Given DAILY ERNIE Sennosides 17.2 mg 07/21/24 12:00 Sennosides 8.6 Mg Tablet PO 07/21/25 11:59 DAILY@12 PRN If no BM in 2 days Sodium Chloride 0 ml 07/20/24 17:06 Sodium Chloride 0.9 % 10 Ml Syringe IV-PUSH 07/20/25 17:05 PRN PRN Flush Vitamin D 20 mcg 07/21/24 09:00 07/29/24 07:59 Cholecalciferol 10 Mcg (400 Units) Tablet PO 07/21/25 08:59 20 mcg DAILY ERNIE Administration Zolpidem Tartrate 10 mg 07/22/24 22:00 07/28/24 21:45 Zolpidem 10 Mg Tablet PO 01/18/25 21:59 10 mg QHS ERNIE Administration Assessment/Plan Assessment/Plan (1) S/P total left hip arthroplasty: Plan: PT to improve pt's strength, endurance, bed mobility, transfers (sit-stand), standing balance, gait quality on level surfaces and stairs, coordination and functional ADL skills. Will also work to improve pt's safety awareness during transfers and ambulation. OT for basic ADL re-training (bathing, dressing, toileting, continence, grooming, feeding, transferring), to increase activity tolerance and functional mobility and to evaluate for adaptive and assistive devices. Will work to improve pt's endurance and educate pt on fall prevention and energy conservationtechniques-pacing strategies and proper breathing techniques during functional tasks. Patient education Pressure ulcer prophylaxis; encourage mobilization, frequent postural changes, pressure-relief techniques DVT prophylaxis Encourage deep breathing exercise incentive spirometry. Monitor bladder. Toileting schedule. Continue current bladder management, with scans as needed and CIC if needed. Start bowel care program every day to obtain continence, prevent ileus. Maintain fall precautions Gait and balance retraining Provision of the necessary gait aids and functional adaptive equipment to enhance the patient's a functional sabianist Encourage deep breathing exercises and incentive spirometry RD evaluation Ensure adequate nutrition and hydration Discharge planning. (2) Postoperative hematoma: (3) Insomnia: (4) Impaired mobility and activities of daily living: (5) Obesity: Qualifiers: Obesity type: due to excess calories Obesity classification: adult class 1 (BMI 30 - 34.9) Serious obesity comorbidity presence: with serious comorbidity Body mass index: BMI 33.0-33.9 Qualified Code(s): E66.09 - Other obesity due to excess calories; Z68.33 - Body mass index [BMI] 33.0-33.9, adult Plan 83-year-old female with past medical history as above who presents to acute inpatient rehabilitation unit with functional impairments in the setting of elective left total hip arthroplasty. * BP regimen adjusted by hospitalist team. Will monitor. Blood pressure at 10:00 this morning after meds 136/70. Will reevaluate regimen at discharge early next week if needed. Patient education Pressure ulcer prophylaxis; encourage mobilization, frequent postural changes, pressure-relief techniques DVT prophylaxis Encourage deep breathing exercise incentive spirometry. Monitor [...] equipment to enhance the patient's a functional sabianist Ensure adequate nutrition and hydration Sleep Discharge planning. Patient was personally seen by me, Dr. Laird, on the day of encounter, reviewed the history and the relevant portions of the chart, including current orders, allied health and engagement quality consultant notes, labs/imaging and performed timmons elements of exam and I formulated the plan of care and facilitated the medical decision making. I completed a substantive portion of this encounter, the medical decision making portion of this note in its entirety, including Allied health note review, nursing note review, engagement quality consultant note review, discussion with nursing and case management, and more than 50% of my time was spent on counseling and coordination of care, time spent 30 minutes Documented By: Dilip Laird MD 07/29/24 1150 Signed By: <Electronically signed by Dilip Laird MD> 07/29/24 6048 [facility] Work Phone: [phone]) 577-274201-30-2025 [place] [address] Physiatry(Rehab) Progress Note Signed Patient: Ashley Brown MR#: [id number] : 1940 Acct:[id number] Age/Sex: 83 / F Adm Date: 5 Loc: Room: [address] [place] [address] Type: ADM IN Attending Dr: Dilip Laird MD Copies to: ~ Date of Service: 07/29/2024 Subjective Subjective Narrative: Ms. Brown is a 83 year old female with past medical history of essential hypertension, obesity, osteoarthritis, paroxysmal A-fib, CAD, s/p CABG who is known to us from a previous rehab admission backin August 2023 after an electiveright knee, now presenting with functional impairments s/p elective left total hip arthroplasty. She failed reasonable conservative treatment strategies and underwent the above procedure by Dr. Pichardo on 07/19/2024. Operative procedure as well as her hospital stay were uncomplicated. She is to weight-bear as tolerated to the lower extremity. Was started on twice daily aspirin for DVT prophylaxis. Interval History: Continues to improve. No new issues. Blood pressure a little higher at times, likely multifactorialand somewhat related to pain. Hesitant to adjust regimen further. I do not want her to be over medicated at discharge which could createa fall risk. Review of Systems Review of Systems All other systems reviewed & are negative unless noted below or in HPI Exam Physical Exam Vital Signs: Temp Pulse Resp BP Pulse Ox O2 Del Method 97.8 F 60 16 136/71 98 Room Air 07/29/24 10:08 07/29/24 10:08 07/29/24 10:08 07/29/24 10:08 07/29/24 10:08 07/29/24 10:08 Narrative: General: Awake, alert, oriented x3 HENT: Normal to inspection, normocephalic, atraumatic Eyes: PERRL, normal conjunctiva and sclera Neck: Normal ROM, normal visual inspection. Trachea midline. Cardio: Regular heart rate and rhythm Respiratory: Clear to auscultation bilaterally. Normal respiratory effort. No respiratory distress. GI: Abdomen soft, nontender, nondistended, active bowel sounds x4 quadrants Neuro: CN II-XII intact. Strength 5/5, equal bilaterally Extremities: Left hip incision, wound VAC dressing intact. Large hematoma to the lateral/posterior thigh. Tender to palpation. Psych: Mood and affect appropriate. Normal speech. Objective Labs 07/26/24 04:59 07/26/24 04:59 Medications and Allergies Allergies and Active Meds: Allergies oxycodone (Percocet) Allergy (Unknown, Verified 07/19/24 09:05) Vomiting sulfamethoxazole (Bactrim) Allergy (Unknown, Verified 07/19/24 09:05) Unknown Reaction trimethoprim (Bactrim) Allergy (Unknown, Verified 07/19/24 09:05) Unknown Reaction hydrocodone (From Vicodin) Allergy (Verified 07/19/24 09:05) Vomiting Rocuronium [place] Allergy (Unknown, Uncoded 08/20/23 14:19) breathing difficulty Active Medications Generic Name Dose Route Start Last Admin Trade Name Freq PRN Reason Stop Dose Admin Acetaminophen 650 mg 07/27/24 10:22 07/28/24 21:52 Acetaminophen 325 Mg Tablet PO 07/22/25 11:14 650 mg Q6H PRN Administration Pain Al Hydrox/Mg Hydrox/Simethicone 30 ml 07/20/24 17:06 Mag Hydrox/Al Hydrox/Simeth 30 Ml Udc PO 07/20/25 17:05 Q4H PRN Indigestion Alprazolam 0.25 mg 07/20/24 17:13 07/27/24 22:41 Alprazolam 0.25 Mg Tablet PO 01/16/25 17:12 0.25 mg DAILY PRN Administration anxiety Aspirin 81 mg 07/20/24 21:00 07/29/24 07:59 Aspirin 81 Mg Tablet.Dr PO 07/20/25 20:59 81 mg BID ERNIE Administration Atorvastatin Calcium 10 mg 07/20/24 22:00 07/20/24 21:25 Atorvastatin 10 Mg Tablet PO 07/20/25 21:59 10 mg QHS ERNIE Administration Bisacodyl 10 mg 07/20/24 17:06 Bisacodyl 10 Mg Supp.Rect MA 07/20/25 17:05 DAILY PRN Constipation Diphenhydramine HCl 25 mg 07/21/24 09:00 07/29/24 07:59 Diphenhydramine 25 Mg Capsule PO 07/21/25 08:59 25 mg QAM ERNIE Administration Docusate Sodium 100 mg 07/20/24 17:06 Docusate 100 Mg Capsule PO 07/20/25 17:05 BID PRN Constipation Docusate Sodium 283 mg 07/20/24 17:06 Docusate Enema 283 Mg/5 Ml Enema MA 07/20/25 17:05 DAILY PRN Constipation Duloxetine HCl 20 mg 07/27/24 09:00 07/29/24 07:59 Duloxetine 20 Mg Capsule. PO 07/27/25 08:59 20 mg DAILY ERNIE Administration Ezetimibe 10 mg 07/20/24 22:00 07/28/24 21:45 Ezetimibe 10 Mg Tablet PO 07/20/25 21:59 10 mg HS ERNIE Administration Lactulose 30 gm 07/20/24 17:06 Lactulose 20 Gm/30 Ml Udc PO 07/20/25 17:05 DAILY PRN Constipation Losartan Potassium 25 mg 07/27/24 21:00 07/29/24 07:59 Losartan 25 Mg Tablet PO 07/27/25 20:59 25 mg BID ERNIE Administration Metoprolol Succinate 25 mg 07/20/24 21:00 07/28/24 21:46 Metoprolol Succinate 25 Mg Tab.Er.24h PO 07/20/25 20:59 25 mg QPM ERNIE Administration Ondansetron HCl 4 mg 07/20/24 17:45 Ondansetron Odt 4 Mg Tab.Rapdis PO 07/20/25 17:44 Q8H PRN PRN Pantoprazole Sodium 40 mg 07/21/24 09:00 07/29/24 07:59 Pantoprazole 40 Mg Tablet. PO 07/21/25 08:59 40 mg DAILY ERNIE Administration Senna/Docusate Sodium 2 tab 07/21/24 09:00 07/29/24 07:59 Sennosides/Docusate 8.6-50mg 1 Tab Tablet PO 07/21/25 08:59 Not Given DAILY ERNIE Sennosides 17.2 mg 07/21/24 12:00 Sennosides 8.6 Mg Tablet PO 07/21/25 11:59 DAILY@12 PRN If no BM in 2 days Sodium Chloride 0 ml 07/20/24 17:06 Sodium Chloride 0.9 % 10 Ml Syringe IV-PUSH 07/20/25 17:05 PRN PRN Flush Vitamin D 20 mcg 07/21/24 09:00 07/29/24 07:59 Cholecalciferol 10 Mcg (400 Units) Tablet PO 07/21/25 08:59 20 mcg DAILY ERNIE Administration Zolpidem Tartrate 10 mg 07/22/24 22:00 07/28/24 21:45 Zolpidem 10 Mg Tablet PO 01/18/25 21:59 10 mg QHS ERNIE Administration Assessment/Plan Assessment/Plan (1) S/P total left hip arthroplasty: Plan: PT to improve pt's strength, endurance, bed mobility, transfers (sit-stand), standing balance, gaitquality on level surfaces and stairs, coordination and functional ADL skills. Will also work to improve pt's safety awareness during transfers and ambulation. OT for basic ADL re-training (bathing, dressing, toileting, continence, grooming, feeding, transferring), to increase activity tolerance and functional mobility and to evaluate for adaptive and assistive devices. Will work to improve pt's endurance and educate pt on fall prevention and energy conser vationtechniques-pacing strategies and proper breathing techniques during functional tasks. Patient education Pressure ulcer prophylaxis; encourage mobilization, frequent postural changes, pressure-relief techniques DVT prophylaxis Encourage deep breathing exercise incentive spirometry. Monitor bladder. Toileting schedule. Continue current bladder management, with scans as needed and CIC if needed. Start bowel care program every day to obtain continence, prevent ileus. Maintain fall precautions Gait and balance retraining Provision of the necessary gait aids and functional adaptive equipment to enhance the patient's a functional sabianist Encourage deep breathing exercises and incentive spirometry RD evaluation Ensure adequate nutrition and hydration Discharge planning. (2) Postoperative hematoma: (3) Insomnia: (4) Impaired mobility and activities of daily living: (5) Obesity: Qualifiers: Obesity type: due to excess calories Obesity classification: adult class 1 (BMI 30 - 34.9) Serious obesity comorbidity presence: with serious comorbidity Body mass index: BMI 33.0-33.9 Qualified Code(s): E66.09 - Other obesity due to excess calories; Z68.33 - Body mass index [BMI] 33.0-33.9, adult Plan 83-year-old female with past medical history as above who presents to acute inpatient rehabilitation unit with functional impairments in the setting of elective left total hip arthroplasty. * BP regimen adjusted by hospitalist team. Will monitor. Blood pressure at 10:00 this morning aftermeds 136/70. Will reevaluate regimen at discharge early next week if needed. Patient education Pressure ulcer prophylaxis; encourage mobilization, frequent postural changes, pressure-relief techniques DVT prophylaxis Encourage deep breathing exercise incentive spirometry. Monitor [...] equipment to enhance the patient's a functional sabianist Ensure adequate nutrition and hydration Sleep Discharge planning. Patient was personally seen by me, Dr. Laird, on the day of encounter, reviewed the history and therelevant portions of the chart, including current orders, allied health and engagement quality consultant notes, labs/imaging and performed timmons elements of exam and I formulated the plan of care and facilitated the medical decision making. I completed a substantive portion of this encounter, the medical decision making portion of this note in its entirety, including Allied health note review, nursing note review, engagement quality consultant note review, discussion with nursing and case management, and more than 50% of my time was spent on counseling and coordination of care, time spent 30 minutes Documented By: Dilip Laird MD 07/29/24 1150 Signed By: 07/29/24 1157 [facility]01-29-2025 Progress note Author Dilip Laird [facility] Note Date/Time July 28, 2024 1 :35pm [facility] [address] [place] [address] Physiatry(Rehab) Progress Note Signed Patient: Ashley Brown MR#: [id number] : 1940 Acct:[id number] Age/Sex: 83 / F Adm Date: 5 Loc: Room: 3R5477-6 Type: ADM IN Attending Dr: Dilip Laird MD Copies to: ~ Date of Service: 07/28/2024 Subjective Subjective Narrative: Ms. Brown is a 83 year old female with past medical history of essential hypertension, obesity, osteoarthritis, paroxysmal A-fib, CAD, s/p CABG who is known to us from a previous rehab admission back in August 2023 after an electiveright knee, now presenting with functional impairments s/p elective left total hip arthroplasty. She failed reasonable conservative treatment strategies and underwent the above procedure by Dr. Pichardo on 07/19/2024. Operative procedure as well as her hospital stay were uncomplicated. She is to weight-bear as tolerated to the lower extremity. Was started on twice daily aspirin for DVT prophylaxis. Interval History: Less anxious today and tolerating Cymbalta. Agreeable to home next week. She is walking with a walker, standby assist Review of Systems Review of Systems All other systems reviewed & are negative unless noted below or in HPI Exam Physical Exam Vital Signs: Temp Pulse Resp BP Pulse Ox O2 Del Method 97.2 F L 60 18 125/71 100 Room Air 07/28/24 11:05 07/28/24 11:05 07/28/24 11:05 07/28/24 11:05 07/28/24 11:05 07/28/24 11:05 Narrative: General: Awake, alert, oriented x3 HENT: Normal to inspection, normocephalic, atraumatic Eyes: PERRL, normal conjunctiva and sclera Neck: Normal ROM, normal visual inspection. Trachea midline. Cardio: Regular heart rate and rhythm Respiratory: Clear to auscultation bilaterally. Normal respiratory effort. No respiratory distress. GI: Abdomen soft, nontender, nondistended, active bowel sounds x4 quadrants Neuro: CN II-XII intact. Strength 5/5, equal bilaterally Extremities: Left hip incision, wound VAC dressing intact. Large hematoma to the lateral/posterior thigh. Tender to palpation. Psych: Mood and affect appropriate. Normal speech. Objective Labs 07/26/24 04:59 07/26/24 04:59 Medications and Allergies Allergies and Active Meds: Allergies oxycodone (Percocet) Allergy (Unknown, Verified 07/19/24 09:05) Vomiting sulfamethoxazole (Bactrim) Allergy (Unknown, Verified 07/19/24 09:05) Unknown Reaction trimethoprim (Bactrim) Allergy (Unknown, Verified 07/19/24 09:05) Unknown Reaction hydrocodone (From Vicodin) Allergy (Verified 07/19/24 09:05) Vomiting Rocuronium [place] Allergy (Unknown, Uncoded 08/20/23 14:19) breathing difficulty Active Medications Generic Name Dose Route Start Last Admin Trade Name Fitoq PRN Reason Stop Dose Admin Acetaminophen 650 mg 07/27/24 10:22 07/28/24 09:31 Acetaminophen 325 Mg Tablet PO 07/22/25 11:14 650 mg Q6H PRN Administration Pain Al Hydrox/Mg Hydrox/Simethicone 30 ml 07/20/24 17:06 Mag Hydrox/Al Hydrox/Simeth 30 Ml Udc PO 07/20/25 17:05 Q4H PRN Indigestion Alprazolam 0.25 mg 07/20/24 17:13 07/27/24 22:41 Alprazolam 0.25 Mg Tablet PO 01/16/25 17:12 0.25 mg DAILY PRN Administration anxiety Aspirin 81 mg 07/20/24 21:00 07/28/24 09:27 Aspirin 81 Mg Tablet. PO 07/20/25 20:59 81 mg BID ERNIE Administration Atorvastatin Calcium 10 mg 07/20/24 22:00 07/20/24 21:25 Atorvastatin 10 Mg Tablet PO 07/20/25 21:59 10 mg QHS ERNIE Administration Bisacodyl 10 mg 07/20/24 17:06 Bisacodyl 10 Mg Supp.Rect MA 07/20/25 17:05 DAILY PRN Constipation Diphenhydramine HCl 25 mg 07/21/24 09:00 07/28/24 09:28 Diphenhydramine 25 Mg Capsule PO 07/21/25 08:59 25 mg QAM ERNIE Administration Docusate Sodium 100 mg 07/20/24 17:06 Docusate 100 Mg Capsule PO 07/20/25 17:05 BID PRN Constipation Docusate Sodium 283 mg 07/20/24 17:06 Docusate Enema 283 Mg/5 Ml Enema MA 07/20/25 17:05 DAILY PRN Constipation Duloxetine HCl 20 mg 07/27/24 09:00 07/28/24 09:30 Duloxetine 20 Mg Capsule. PO 07/27/25 08:59 20 mg DAILY ERNIE Administration Ezetimibe 10 mg 07/20/24 22:00 07/27/24 21:24 Ezetimibe 10 Mg Tablet PO 07/20/25 21:59 10 mg HS ERNIE Administration Lactulose 30 gm 07/20/24 17:06 Lactulose 20 Gm/30 Ml Udc PO 07/20/25 17:05 DAILY PRN Constipation Losartan Potassium 25 mg 07/27/24 21:00 07/28/24 09:30 Losartan 25 Mg Tablet PO 07/27/25 20:59 25 mg BID ERNIE Administration Metoprolol Succinate 25 mg 07/20/24 21:00 07/27/24 21:23 Metoprolol Succinate 25 Mg Tab.Er.24h PO 07/20/25 20:59 25 mg QPM ERNIE Administration Ondansetron HCl 4 mg 07/20/24 17:45 Ondansetron Odt 4 Mg Tab.Rapdis PO 07/20/25 17:44 Q8H PRN PRN Pantoprazole Sodium 40 mg 07/21/24 09:00 07/28/24 09:27 Pantoprazole 40 Mg Tablet.Dr PO 07/21/25 08:59 40 mg DAILY ERNIE Administration Senna/Docusate Sodium 2 tab 07/21/24 09:00 07/28/24 09:34 Sennosides/Docusate 8.6-50mg 1 Tab Tablet PO 07/21/25 08:59 Not Given DAILY ERNIE Sennosides 17.2 mg 07/21/24 12:00 Sennosides 8.6 Mg Tablet PO 07/21/25 11:59 DAILY@12 PRN If no BM in 2 days Sodium Chloride 0 ml 07/20/24 17:06 Sodium Chloride 0.9 % 10 Ml Syringe IV-PUSH 07/20/25 17:05 PRN PRN Flush Vitamin D 20 mcg 07/21/24 09:00 07/28/24 09:28 Cholecalciferol 10 Mcg (400 Units) Tablet PO 07/21/25 08:59 20 mcg DAILY ERNIE Administration Zolpidem Tartrate 10 mg 07/22/24 22:00 07/27/24 21:24 Zolpidem 10 Mg Tablet PO 01/18/25 21:59 10 mg QHS ERNIE Administration Assessment/Plan Assessment/Plan (1) S/P total left hip arthroplasty: Plan: PT to improve pt's strength, endurance, bed mobility, transfers (sit-stand), standing balance, gait quality on level surfaces and stairs, coordination and functional ADL skills. Will also work to improve pt's safety awareness during transfers and ambulation. OT for basic ADL re-training (bathing, dressing, toileting, continence, grooming, feeding, transferring), to increase activity tolerance and functional mobility and to evaluate for adaptive and assistive devices. Will work to improve pt's endurance and educate pt on fall prevention and energy conservationtechniques-pacing strategies and proper breathing techniques during functional tasks. Patient education Pressure ulcer prophylaxis; encourage mobilization, frequent postural changes, pressure-relief techniques DVT prophylaxis Encourage deep breathing exercise incentive spirometry. Monitor bladder. Toileting schedule. Continue current bladder management, with scans as needed and CIC if needed. Start bowel care program every day to obtain continence, prevent ileus. Maintain fall precautions Gait and balance retraining Provision of the necessary gait aids and functional adaptive equipment to enhance the patient's a functional sabianist Encourage deep breathing exercises and incentive spirometry RD evaluation Ensure adequate nutrition and hydration Discharge planning. (2) Postoperative hematoma: (3) Insomnia: (4) Impaired mobility and activities of daily living: (5) Obesity: Qualifiers: Obesity type: due to excess calories Obesity classification: adult class 1 (BMI 30 - 34.9) Serious obesity comorbidity presence: with serious comorbidity Body mass index: BMI 33.0-33.9 Qualified Code(s): E66.09 - Other obesity due to excess calories; Z68.33 - Body mass index [BMI] 33.0-33.9, adult Plan 83-year-old female with past medical history as above who presents to acute inpatient rehabilitation unit with functional impairments in the setting of elective left total hip arthroplasty. * Continue current management. Tolerating Cymbalta. Less anxious and with improved sleep overnight. Plan remains home next week. She is ambulatory 250 feet. Needs more assist with self-care activities Patient education Pressure ulcer prophylaxis; encourage mobilization, frequent postural changes, pressure-relief techniques DVT prophylaxis Encourage deep breathing exercise incentive spirometry. Monitor [...] equipment to enhance the patient's a functional sabianist Ensure adequate nutrition and hydration Sleep Discharge planning. Patient was personally seen by me, Dr. Laird, on the day of encounter, reviewed the history and the relevant portions of the chart, including current orders, allied health and engagement quality consultant notes, labs/imaging and performed timmons elements of exam and I formulated the plan of care and facilitated the medical decision making. I completed a substantive portion of this encounter, the medical decision making portion of this note in its entirety, including Allied health note review, nursing note review, engagement quality consultant note review, discussion with nursing and case management, and more than 50% of my time was spent on counseling and coordination of care, time spent 30 minutes Documented By: Dilip Laird MD 07/28/24 1334 Signed By: <Electronically signed by Dilip Laird MD> 07/28/24 1335 [facility] Work Phone: 1(276) 401-409701-29-2025 [place] [address] Physiatry(Rehab) Progress Note Signed Patient: Ashley Brown MR#: [id number] : 1940 Acct:[id number] Age/Sex: 83 / F Adm Date: 5 Loc: Room: [address] [place] [address] Type: ADM IN Attending Dr: Dilip Laird MD Copies to: ~ Date of Service: 07/28/2024 Subjective Subjective Narrative: Ms. Brown is a 83 year old female with past medical history of essential hypertension, obesity, osteoarthritis, paroxysmal A-fib, CAD, s/p CABG who is known to us from a previous rehab admission backin August 2023 after an electiveright knee, now presenting with functional impairments s/p elective left total hip arthroplasty. She failed reasonable conservative treatment strategies and underwent the above procedure by Dr. Pichardo on 07/19/2024. Operative procedure as well as her hospital stay were uncomplicated. She is to weight-bear as tolerated to the lower extremity. Was started on twice daily aspirin for DVT prophylaxis. Interval History: Less anxious today and tolerating Cymbalta. Agreeable to home next week. She is walking with a walker, standby assist Review of Systems Review of Systems All other systems reviewed & are negative unless noted below or in HPI Exam Physical Exam Vital Signs: Temp Pulse Resp BP Pulse Ox O2 Del Method 97.2 F L 60 18 125/71 100 Room Air 07/28/24 11:05 07/28/24 11:05 07/28/24 11:05 07/28/24 11:05 07/28/24 11:05 07/28/24 11:05 Narrative: General: Awake, alert, oriented x3 HENT: Normal to inspection, normocephalic, atraumatic Eyes: PERRL, normal conjunctiva and sclera Neck: Normal ROM, normal visual inspection. Trachea midline. Cardio: Regular heart rate and rhythm Respiratory: Clear to auscultation bilaterally. Normal respiratory effort. No respiratory distress. GI: Abdomen soft, nontender, nondistended, active bowel sounds x4 quadrants Neuro: CN II-XII intact. Strength 5/5, equal bilaterally Extremities: Left hip incision, wound VAC dressing intact. Large hematoma to the lateral/posterior thigh. Tender to palpation. Psych: Mood and affect appropriate. Normal speech. Objective Labs 07/26/24 04:59 07/26/24 04:59 Medications and Allergies Allergies and Active Meds: Allergies oxycodone (Percocet) Allergy (Unknown, Verified 07/19/24 09:05) Vomiting sulfamethoxazole (Bactrim) Allergy (Unknown, Verified 07/19/24 09:05) Unknown Reaction trimethoprim (Bactrim) Allergy (Unknown, Verified 07/19/24 09:05) Unknown Reaction hydrocodone (From Vicodin) Allergy (Verified 07/19/24 09:05) Vomiting Rocuronium [place] Allergy (Unknown, Uncoded 08/20/23 14:19) breathing difficulty Active Medications Generic Name Dose Route Start Last Admin Trade Name Freq PRN Reason Stop Dose Admin Acetaminophen 650 mg 07/27/24 10:22 07/28/24 09:31 Acetaminophen 325 Mg Tablet PO 07/22/25 11:14 650 mg Q6H PRN Administration Pain Al Hydrox/Mg Hydrox/Simethicone 30 ml 07/20/24 17:06 Mag Hydrox/Al Hydrox/Simeth 30 Ml Udc PO 07/20/25 17:05 Q4H PRN Indigestion Alprazolam 0.25 mg 07/20/24 17:13 07/27/24 22:41 Alprazolam 0.25 Mg Tablet PO 01/16/25 17:12 0.25 mg DAILY PRN Administration anxiety Aspirin 81 mg 07/20/24 21:00 07/28/24 09:27 Aspirin 81 Mg Tablet. PO 07/20/25 20:59 81 mg BID ERNIE Administration Atorvastatin Calcium 10 mg 07/20/24 22:00 07/20/24 21:25 Atorvastatin 10 Mg Tablet PO 07/20/25 21:59 10 mg QHS ERNIE Administration Bisacodyl 10 mg 07/20/24 17:06 Bisacodyl 10 Mg Supp.Rect MA 07/20/25 17:05 DAILY PRN Constipation Diphenhydramine HCl 25 mg 07/21/24 09:00 07/28/24 09:28 Diphenhydramine 25 Mg Capsule PO 07/21/25 08:59 25 mg QAM ERNIE Administration Docusate Sodium 100 mg 07/20/24 17:06 Docusate 100 Mg Capsule PO 07/20/25 17:05 BID PRN Constipation Docusate Sodium 283 mg 07/20/24 17:06 Docusate Enema 283 Mg/5 Ml Enema MA 07/20/25 17:05 DAILY PRN Constipation Duloxetine HCl 20 mg 07/27/24 09:00 07/28/24 09:30 Duloxetine 20 Mg Capsule. PO 07/27/25 08:59 20 mg DAILY ERNIE Administration Ezetimibe 10 mg 07/20/24 22:00 07/27/24 21:24 Ezetimibe 10 Mg Tablet PO 07/20/25 21:59 10 mg HS ERNIE Administration Lactulose 30 gm 07/20/24 17:06 Lactulose 20 Gm/30 Ml Udc PO 07/20/25 17:05 DAILY PRN Constipation Losartan Potassium 25 mg 07/27/24 21:00 07/28/24 09:30 Losartan 25 Mg Tablet PO 07/27/25 20:59 25 mg BID ERNIE Administration Metoprolol Succinate 25 mg 07/20/24 21:00 07/27/24 21:23 Metoprolol Succinate 25 Mg Tab.Er.24h PO 07/20/25 20:59 25 mg QPM ERNIE Administration Ondansetron HCl 4 mg 07/20/24 17:45 Ondansetron Odt 4 Mg Tab.Rapdis PO 07/20/25 17:44 Q8H PRN PRN Pantoprazole Sodium 40 mg 07/21/24 09:00 07/28/24 09:27 Pantoprazole 40 Mg Tablet. PO 07/21/25 08:59 40 mg DAILY ERNIE Administration Senna/Docusate Sodium 2 tab 07/21/24 09:00 07/28/24 09:34 Sennosides/Docusate 8.6-50mg 1 Tab Tablet PO 07/21/25 08:59 Not Given DAILY ERNIE Sennosides 17.2 mg 07/21/24 12:00 Sennosides 8.6 Mg Tablet PO 07/21/25 11:59 DAILY@12 PRN If no BM in 2 days Sodium Chloride 0 ml 07/20/24 17:06 Sodium Chloride 0.9 % 10 Ml Syringe IV-PUSH 07/20/25 17:05 PRN PRN Flush Vitamin D 20 mcg 07/21/24 09:00 07/28/24 09:28 Cholecalciferol 10 Mcg (400 Units) Tablet PO 07/21/25 08:59 20 mcg DAILY ERNIE Administration Zolpidem Tartrate 10 mg 07/22/24 22:00 07/27/24 21:24 Zolpidem 10 Mg Tablet PO 01/18/25 21:59 10 mg QHS ERNIE Administration Assessment/Plan Assessment/Plan (1) S/P total left hip arthroplasty: Plan: PT to improve pt's strength, endurance, bed mobility, transfers (sit-stand), standing balance, gaitquality on level surfaces and stairs, coordination and functional ADL skills. Will also work to improve pt's safety awareness during transfers and ambulation. OT for basic ADL re-training (bathing, dressing, toileting, continence, grooming, feeding, transferring), to increase activity tolerance and functional mobility and to evaluate for adaptive and assistive devices. Will work to improve pt's endurance and educate pt on fall prevention and energy conser vationtechniques-pacing strategies and proper breathing techniques during functional tasks. Patient education Pressure ulcer prophylaxis; encourage mobilization, frequent postural changes, pressure-relief techniques DVT prophylaxis Encourage deep breathing exercise incentive spirometry. Monitor bladder. Toileting schedule. Continue current bladder management, with scans as needed and CIC if needed. Start bowel care program every day to obtain continence, prevent ileus. Maintain fall precautions Gait and balance retraining Provision of the necessary gait aids and functional adaptive equipment to enhance the patient's a functional sabianist Encourage deep breathing exercises and incentive spirometry RD evaluation Ensure adequate nutrition and hydration Discharge planning. (2) Postoperative hematoma: (3) Insomnia: (4) Impaired mobility and activities of daily living: (5) Obesity: Qualifiers: Obesity type: due to excess calories Obesity classification: adult class 1 (BMI 30 - 34.9) Serious obesity comorbidity presence: with serious comorbidity Body mass index: BMI 33.0-33.9 Qualified Code(s): E66.09 - Other obesity due to excess calories; Z68.33 - Body mass index [BMI] 33.0-33.9, adult Plan 83-year-old female with past medical history as above who presents to acute inpatient rehabilitation unit with functional impairments in the setting of elective left total hip arthroplasty. * Continue current management. Tolerating Cymbalta. Less anxious and with improved sleep overnight.Plan remains home next week. She is ambulatory 250 feet. Needs more assist with self-care activities Patient education Pressure ulcer prophylaxis; encourage mobilization, frequent postural changes, pressure-relief techniques DVT prophylaxis Encourage deep breathing exercise incentive spirometry. Monitor [...] equipment to enhance the patient's a functional sabianist Ensure adequate nutrition and hydration Sleep Discharge planning. Patient was personally seen by me, Dr. Laird, on the day of encounter, reviewed the history and therelevant portions of the chart, including current orders, allied health and engagement quality consultant notes, labs/imaging and performed timmons elements of exam and I formulated the plan of care and facilitated the medical decision making. I completed a substantive portion of this encounter, the medical decision making portion of this note in its entirety, including Allied health note review, nursing note review, engagement quality consultant note review, discussion with nursing and case management, and more than 50% of my time was spent on counseling and coordination of care, time spent 30 minutes Documented By: Dilip Laird MD 07/28/244 Signed By: 07/28/24 133 [facility]01-28-2025 Progress note Author Patricia Mayberry [facility] Note Date/Time July 27, 2024 5 :12pm [facility] [address] [place] [address] Hospitalist Progress Note Signed Patient: Ashley Brown MR#: [id number] : 1940 Acct:[id number] Age/Sex: 83 / F Adm Date: 5 Loc: Room: 1P3759-4 Type: ADM IN Attending Dr: Dilip Laird MD Copies to: ~ Date of Service: 07/27/2024 Subjective Subjective Narrative: Patient is seen and examined on follow-up. She continues to work with therapy. She does indicate some postoperative discomfort is managed. BPs reviewed and not optimally controlled, will adjust medications. Vitals otherwise afebrile nohypoxia. Labs reviewed from July 26, Hemoglobin stable at 11.7, normal electrolytes and renal function. no leukocytosis Exam Physical Exam Vital Signs: Temp Pulse Resp BP Pulse Ox O2 Del Method 98.0 F 65 16 159/76 H 97 Room Air 07/27/24 05:00 07/27/24 08:07/27/24 05:00 07/27/24 08:25 07/27/24 08:07/27/24 13:30 Narrative: CONST- alert, in bed, frail elderly female CARD- RRR no abnormal heart tones PULM- dimin without wheeze or rhonchi, RA ABD- S/NT, NABS, round EXTREM- LLE edema BLE, calves nontender SKIN- hematoma/ ecchymosis left posterolateral thigh, incision well approx no drainage Objective Lab Results 07/26/24 04:59 07/26/24 04:59 Meds Allergies and Active Meds Allergies oxycodone (Percocet) Allergy (Unknown, Verified 07/19/24 09:05) Vomiting sulfamethoxazole (Bactrim) Allergy (Unknown, Verified 07/19/24 09:05) Unknown Reaction trimethoprim (Bactrim) Allergy (Unknown, Verified 07/19/24 09:05) Unknown Reaction hydrocodone (From Vicodin) Allergy (Verified 07/19/24 09:05) Vomiting Rocuronium [place] Allergy (Unknown, Uncoded 08/20/23 14:19) breathing difficulty Active Meds: Active Medications Generic Name Dose Route Start Last Admin Trade Name Freq PRN Reason Stop Dose Admin Acetaminophen 650 mg 07/27/24 10:22 Acetaminophen 325 Mg Tablet PO 07/22/25 11:14 Q6H PRN Pain Al Hydrox/Mg Hydrox/Simethicone 30 ml 07/20/24 17:06 Mag Hydrox/Al Hydrox/Simeth 30 Ml Udc PO 07/20/25 17:05 Q4H PRN Indigestion Alprazolam 0.25 mg 07/20/24 17:13 07/26/24 23:00 Alprazolam 0.25 Mg Tablet PO 01/16/25 17:12 0.25 mg DAILY PRN Administration anxiety Aspirin 81 mg 07/20/24 21:00 07/27/24 08:28 Aspirin 81 Mg Tablet.Dr PO 07/20/25 20:59 81 mg BID ERNIE Administration Atorvastatin Calcium 10 mg 07/20/24 22:00 07/20/24 21:25 Atorvastatin 10 Mg Tablet PO 07/20/25 21:59 10 mg QHS ERNIE Administration Bisacodyl 10 mg 07/20/24 17:06 Bisacodyl 10 Mg Supp.Rect MA 07/20/25 17:05 DAILY PRN Constipation Diphenhydramine HCl 25 mg 07/21/24 09:00 07/27/24 08:28 Diphenhydramine 25 Mg Capsule PO 07/21/25 08:59 25 mg QAM ERNIE Administration Docusate Sodium 100 mg 07/20/24 17:06 Docusate 100 Mg Capsule PO 07/20/25 17:05 BID PRN Constipation Docusate Sodium 283 mg 07/20/24 17:06 Docusate Enema 283 Mg/5 Ml Enema MA 07/20/25 17:05 DAILY PRN Constipation Duloxetine HCl 20 mg 07/27/24 09:00 07/27/24 08:27 Duloxetine 20 Mg Capsule. PO 07/27/25 08:59 20 mg DAILY ERNIE Administration Ezetimibe 10 mg 07/20/24 22:00 07/26/24 21:01 Ezetimibe 10 Mg Tablet PO 07/20/25 21:59 10 mg HS ERNIE Administration Lactulose 30 gm 07/20/24 17:06 Lactulose 20 Gm/30 Ml Udc PO 07/20/25 17:05 DAILY PRN Constipation Losartan Potassium 25 mg 07/27/24 21:00 Losartan 25 Mg Tablet PO 07/27/25 20:59 BID ERNIE Metoprolol Succinate 25 mg 07/20/24 21:00 07/26/24 21:01 Metoprolol Succinate 25 Mg Tab.Er.24h PO 07/20/25 20:59 25 mg QPM ERNIE Administration Ondansetron HCl 4 mg 07/20/24 17:45 Ondansetron Odt 4 Mg Tab.Rapdis PO 07/20/25 17:44 Q8H PRN PRN Pantoprazole Sodium 40 mg 07/21/24 09:00 07/27/24 08:28 Pantoprazole 40 Mg Tablet.Dr PO 07/21/25 08:59 40 mg DAILY ERNIE Administration Prednisone 10 mg 07/21/24 09:00 07/27/24 08:28 Prednisone 10 Mg Tablet PO 07/28/24 08:59 10 mg DAILY ERNIE Administration Senna/Docusate Sodium 2 tab 07/21/24 09:00 07/27/24 08:31 Sennosides/Docusate 8.6-50mg 1 Tab Tablet PO 07/21/25 08:59 Not Given DAILY ERNIE Sennosides 17.2 mg 07/21/24 12:00 Sennosides 8.6 Mg Tablet PO 07/21/25 11:59 DAILY@12 PRN If no BM in 2 days Sodium Chloride 0 ml 07/20/24 17:06 Sodium Chloride 0.9 % 10 Ml Syringe IV-PUSH 07/20/25 17:05 PRN PRN Flush Vitamin D 20 mcg 07/21/24 09:00 07/27/24 08:28 Cholecalciferol 10 Mcg (400 Units) Tablet PO 07/21/25 08:59 20 mcg DAILY ERNIE Administration Zolpidem Tartrate 10 mg 07/22/24 22:00 07/26/24 21:01 Zolpidem 10 Mg Tablet PO 01/18/25 21:59 10 mg QHS ERNIE Administration A&P - Hospitalist Assessment/Plan (1) S/P total left hip arthroplasty: (2) Primary hypertension: Plan Status post total left hip arthroplasty 07/19/2024 ?Plan of care for rehabilitation, PT/OT, DVT prophylaxis, bowel regimen per PM&Rteam. Any issues or concerns pertaining to the incision site to be deferred to the orthopedic team. ?Aspirin BID [id number] per ortho preference Elevated liver enzymes, improved - statin on hold Chronic conditions: 1. Hypertension- increase losartan, continue metoprolol. BPs elevated med adjusted 2. Hyperlipidemia?will hold off atorvastatin due to elevated liver enzymes which have improved resume at discharge 3. GERD? pantoprazole Documented By: Patricia Mayberry APRN 07/01 Signed By: <Electronically signed by CHASITY Mayberry> 07/27/241711 [facility] Work Phone: [phone]) 177-636201-28-2025 [place] [address] Hospitalist Progress Note Signed Patient: Ashley Brown MR#: [id number] : 1940 Acct:[id number] Age/Sex: 83 / F Adm Date: 5 Loc: Room: 1U9476-1 Type: ADM IN Attending Dr: Dilip Laird MD Copies to: ~ Date of Service: 07/27/2024 Subjective Subjective Narrative: Patient is seen and examined on follow-up. She continues to work with therapy. She does indicate some postoperative discomfort is managed. BPs reviewed and not optimally controlled, will adjust medications. Vitals otherwise afebrile nohypoxia. Labs reviewed from July 26, Hemoglobin stable at 11.7, normal electrolytes and renal function. no leukocytosis Exam Physical Exam Vital Signs: Temp Pulse Resp BP Pulse Ox O2 Del Method 98.0 F 65 16 159/76 H 97 Room Air 07/27/24 05:00 07/27/24 08:25 07/27/24 05:00 07/27/24 08:25 07/27/24 08:25 07/27/24 13:30 Narrative: CONST- alert, in bed, frail elderly female CARD- RRR no abnormal heart tones PULM- dimin without wheeze or rhonchi, RA ABD- S/NT, NABS, round EXTREM- LLE edema BLE, calves nontender SKIN- hematoma/ ecchymosis left posterolateral thigh, incision well approx no drainage Objective Lab Results 07/26/24 04:59 07/26/24 04:59 Meds Allergies and Active Meds Allergies oxycodone (Percocet) Allergy (Unknown, Verified 07/19/24 09:05) Vomiting sulfamethoxazole (Bactrim) Allergy (Unknown, Verified 07/19/24 09:05) Unknown Reaction trimethoprim (Bactrim) Allergy (Unknown, Verified 07/19/24 09:05) Unknown Reaction hydrocodone (From Vicodin) Allergy (Verified 07/19/24 09:05) Vomiting Rocuronium [place] Allergy (Unknown, Uncoded 08/20/23 14:19) breathing difficulty Active Meds: Active Medications Generic Name Dose Route Start Last Admin Trade Name Freq PRN Reason Stop Dose Admin Acetaminophen 650 mg 07/27/24 10:22 Acetaminophen 325 Mg Tablet PO 07/22/25 11:14 Q6H PRN Pain Al Hydrox/Mg Hydrox/Simethicone 30 ml 07/20/24 17:06 Mag Hydrox/Al Hydrox/Simeth 30 Ml Udc PO 07/20/25 17:05 Q4H PRN Indigestion Alprazolam 0.25 mg 07/20/24 17:13 07/26/24 23:00 Alprazolam 0.25 Mg Tablet PO 01/16/25 17:12 0.25 mg DAILY PRN Administration anxiety Aspirin 81 mg 07/20/24 21:00 07/27/24 08:28 Aspirin 81 Mg Tablet. PO 07/20/25 20:59 81 mg BID ERNIE Administration Atorvastatin Calcium 10 mg 07/20/24 22:00 07/20/24 21:25 Atorvastatin 10 Mg Tablet PO 07/20/25 21:59 10 mg QHS ERNIE Administration Bisacodyl 10 mg 07/20/24 17:06 Bisacodyl 10 Mg Supp.Rect MA 07/20/25 17:05 DAILY PRN Constipation Diphenhydramine HCl 25 mg 07/21/24 09:00 07/27/24 08:28 Diphenhydramine 25 Mg Capsule PO 07/21/25 08:59 25 mg QAM ERNIE Administration Docusate Sodium 100 mg 07/20/24 17:06 Docusate 100 Mg Capsule PO 07/20/25 17:05 BID PRN Constipation Docusate Sodium 283 mg 07/20/24 17:06 Docusate Enema 283 Mg/5 Ml Enema MA 07/20/25 17:05 DAILY PRN Constipation Duloxetine HCl 20 mg 07/27/24 09:00 07/27/24 08:27 Duloxetine 20 Mg Capsule. PO 07/27/25 08:59 20 mg DAILY ERNIE Administration Ezetimibe 10 mg 07/20/24 22:00 07/26/24 21:01 Ezetimibe 10 Mg Tablet PO 07/20/25 21:59 10 mg HS ERNIE Administration Lactulose 30 gm 07/20/24 17:06 Lactulose 20 Gm/30 Ml Udc PO 07/20/25 17:05 DAILY PRN Constipation Losartan Potassium 25 mg 07/27/24 21:00 Losartan 25 Mg Tablet PO 07/27/25 20:59 BID ERNIE Metoprolol Succinate 25 mg 07/20/24 21:00 07/26/24 21:01 Metoprolol Succinate 25 Mg Tab.Er.24h PO 07/20/25 20:59 25 mg QPM ERNIE Administration Ondansetron HCl 4 mg 07/20/24 17:45 Ondansetron Odt 4 Mg Tab.Rapdis PO 07/20/25 17:44 Q8H PRN PRN Pantoprazole Sodium 40 mg 07/21/24 09:00 07/27/24 08:28 Pantoprazole 40 Mg Tablet.Dr PO 07/21/25 08:59 40 mg DAILY ERNIE Administration Prednisone 10 mg 07/21/24 09:00 07/27/24 08:28 Prednisone 10 Mg Tablet PO 07/28/24 08:59 10 mg DAILY ERNIE Administration Senna/Docusate Sodium 2 tab 07/21/24 09:00 07/27/24 08:31 Sennosides/Docusate 8.6-50mg 1 Tab Tablet PO 07/21/25 08:59 Not Given DAILY ERNIE Sennosides 17.2 mg 07/21/24 12:00 Sennosides 8.6 Mg Tablet PO 07/21/25 11:59 DAILY@12 PRN If no BM in 2 days Sodium Chloride 0 ml 07/20/24 17:06 Sodium Chloride 0.9 % 10 Ml Syringe IV-PUSH 07/20/25 17:05 PRN PRN Flush Vitamin D 20 mcg 07/21/24 09:00 07/27/24 08:28 Cholecalciferol 10 Mcg (400 Units) Tablet PO 07/21/25 08:59 20 mcg DAILY ERNIE Administration Zolpidem Tartrate 10 mg 07/22/24 22:00 07/26/24 21:01 Zolpidem 10 Mg Tablet PO 01/18/25 21:59 10 mg QHS ERNIE Administration A&P - Hospitalist Assessment/Plan (1) S/P total left hip arthroplasty: (2) Primary hypertension: Plan Status post total left hip arthroplasty 07/19/2024 ?Plan of care for rehabilitation, PT/OT, DVT prophylaxis, bowel regimen per PM&Rteam. Any issues or concerns pertaining to the incision site to be deferred to the orthopedic team. ?Aspirin BID [id number] per ortho preference Elevated liver enzymes, improved - statin on hold Chronic conditions: 1. Hypertension- increase losartan, continue metoprolol. BPs elevated med adjusted 2. Hyperlipidemia?will hold off atorvastatin due to elevated liver enzymes which have improved resume at discharge 3. GERD? pantoprazole Documented By: Patricia Mayberry, CHASITY 07/01 Signed By: 07/27/241711 [facility]01-28-2025 Progress note Author Dilip Laird [facility] Note Date/Time July 27, 2024 2 :44pm [facility] [address] [place] [address] Physiatry(Rehab) Progress Note Signed Patient: Ashley Brown MR#: [id number] : 1940 Acct:[id number] Age/Sex: 83 / F Adm Date: 5 Loc: Room: [address] [place] [address] Type: ADM IN Attending Dr: Dilip Laird MD Copies to: ~ Date of Service: 07/27/2024 Subjective Subjective Narrative: Ms. Brown is a 83 year old female with past medical history of essential hypertension, obesity, osteoarthritis, paroxysmal A-fib, CAD, s/p CABG who is known to us from a previous rehab admission back in August 2023 after an electiveright knee, now presenting with functional impairments s/p elective left total hip arthroplasty. She failed reasonable conservative treatment strategies and underwent the above procedure by Dr. Pichardo on 07/19/2024. Operative procedure as well as her hospital stay were uncomplicated. She is to weight-bear as tolerated to the lower extremity. Was started on twice daily aspirin for DVT prophylaxis. Interval History: Slept well overnight. Pain controlled. She is ambulatory and progressing to goals. Discussed at team meeting Review of Systems Review of Systems All other systems reviewed & are negative unless noted below or in HPI Exam Physical Exam Vital Signs: Temp Pulse Resp BP Pulse Ox O2 Del Method 98.0 F 65 16 159/76 H 97 Room Air 07/27/24 05:00 07/27/24 08:25 07/27/24 05:00 07/27/24 08:25 07/27/24 08:07/27/24 13:30 Narrative: General: Awake, alert, oriented x3 HENT: Normal to inspection, normocephalic, atraumatic Eyes: PERRL, normal conjunctiva and sclera Neck: Normal ROM, normal visual inspection. Trachea midline. Cardio: Regular heart rate and rhythm Respiratory: Clear to auscultation bilaterally. Normal respiratory effort. No respiratory distress. GI: Abdomen soft, nontender, nondistended, active bowel sounds x4 quadrants Neuro: CN II-XII intact. Strength 5/5, equal bilaterally Extremities: Left hip incision, wound VAC dressing intact. Large hematoma to the lateral/posterior thigh. Tender to palpation. Psych: Mood and affect appropriate. Normal speech. Objective Labs 07/26/24 04:59 07/26/24 04:59 Medications and Allergies Allergies and Active Meds: Allergies oxycodone (Percocet) Allergy (Unknown, Verified 07/19/24 09:05) Vomiting sulfamethoxazole (Bactrim) Allergy (Unknown, Verified 07/19/24 09:05) Unknown Reaction trimethoprim (Bactrim) Allergy (Unknown, Verified 07/19/24 09:05) Unknown Reaction hydrocodone (From Vicodin) Allergy (Verified 07/19/24 09:05) Vomiting Rocuronium [place] Allergy (Unknown, Uncoded 08/20/23 14:19) breathing difficulty Active Medications Generic Name Dose Route Start Last Admin Trade Name Freq PRN Reason Stop Dose Admin Acetaminophen 650 mg 07/27/24 10:22 Acetaminophen 325 Mg Tablet PO 07/22/25 11:14 Q6H PRN Pain Al Hydrox/Mg Hydrox/Simethicone 30 ml 07/20/24 17:06 Mag Hydrox/Al Hydrox/Simeth 30 Ml Udc PO 07/20/25 17:05 Q4H PRN Indigestion Alprazolam 0.25 mg 07/20/24 17:13 07/26/24 23:00 Alprazolam 0.25 Mg Tablet PO 01/16/25 17:12 0.25 mg DAILY PRN Administration anxiety Aspirin 81 mg 07/20/24 21:00 07/27/24 08:28 Aspirin 81 Mg Tablet.Dr PO 07/20/25 20:59 81 mg BID ERNIE Administration Atorvastatin Calcium 10 mg 07/20/24 22:00 07/20/24 21:25 Atorvastatin 10 Mg Tablet PO 07/20/25 21:59 10 mg QHS ERNIE Administration Bisacodyl 10 mg 07/20/24 17:06 Bisacodyl 10 Mg Supp.Rect MA 07/20/25 17:05 DAILY PRN Constipation Diphenhydramine HCl 25 mg 07/21/24 09:00 07/27/24 08:28 Diphenhydramine 25 Mg Capsule PO 07/21/25 08:59 25 mg QAM ERNIE Administration Docusate Sodium 100 mg 07/20/24 17:06 Docusate 100 Mg Capsule PO 07/20/25 17:05 BID PRN Constipation Docusate Sodium 283 mg 07/20/24 17:06 Docusate Enema 283 Mg/5 Ml Enema MA 07/20/25 17:05 DAILY PRN Constipation Duloxetine HCl 20 mg 07/27/24 09:00 07/27/24 08:27 Duloxetine 20 Mg Capsule. PO 07/27/25 08:59 20 mg DAILY ERNIE Administration Ezetimibe 10 mg 07/20/24 22:00 07/26/24 21:01 Ezetimibe 10 Mg Tablet PO 07/20/25 21:59 10 mg HS ERNIE Administration Lactulose 30 gm 07/20/24 17:06 Lactulose 20 Gm/30 Ml Udc PO 07/20/25 17:05 DAILY PRN Constipation Losartan Potassium 25 mg 07/21/24 09:00 07/27/24 08:28 Losartan 25 Mg Tablet PO 07/21/25 08:59 25 mg QAM ERNIE Administration Metoprolol Succinate 25 mg 07/20/24 21:00 07/26/24 21:01 Metoprolol Succinate 25 Mg Tab.Er.24h PO 07/20/25 20:59 25 mg QPM ERNIE Administration Ondansetron HCl 4 mg 07/20/24 17:45 Ondansetron Odt 4 Mg Tab.Rapdis PO 07/20/25 17:44 Q8H PRN PRN Pantoprazole Sodium 40 mg 07/21/24 09:00 07/27/24 08:28 Pantoprazole 40 Mg Tablet. PO 07/21/25 08:59 40 mg DAILY ERNIE Administration Prednisone 10 mg 07/21/24 09:00 07/27/24 08:28 Prednisone 10 Mg Tablet PO 07/28/24 08:59 10 mg DAILY ERNIE Administration Senna/Docusate Sodium 2 tab 07/21/24 09:00 07/27/24 08:31 Sennosides/Docusate 8.6-50mg 1 Tab Tablet PO 07/21/25 08:59 Not Given DAILY ERNIE Sennosides 17.2 mg 07/21/24 12:00 Sennosides 8.6 Mg Tablet PO 07/21/25 11:59 DAILY@12 PRN If no BM in 2 days Sodium Chloride 0 ml 07/20/24 17:06 Sodium Chloride 0.9 % 10 Ml Syringe IV-PUSH 07/20/25 17:05 PRN PRN Flush Vitamin D 20 mcg 07/21/24 09:00 07/27/24 08:28 Cholecalciferol 10 Mcg (400 Units) Tablet PO 07/21/25 08:59 20 mcg DAILY ERNIE Administration Zolpidem Tartrate 10 mg 07/22/24 22:00 07/26/24 21:01 Zolpidem 10 Mg Tablet PO 01/18/25 21:59 10 mg QHS ERNIE Administration Assessment/Plan Assessment/Plan (1) S/P total left hip arthroplasty: Plan: PT to improve pt's strength, endurance, bed mobility, transfers (sit-stand), standing balance, gait quality on level surfaces and stairs, coordination and functional ADL skills. Will also work to improve pt's safety awareness during transfers and ambulation. OT for basic ADL re-training (bathing, dressing, toileting, continence, grooming, feeding, transferring), to increase activity tolerance and functional mobility and to evaluate for adaptive and assistive devices. Will work to improve pt's endurance and educate pt on fall prevention and energy conservationtechniques-pacing strategies and proper breathing techniques during functional tasks. Patient education Pressure ulcer prophylaxis; encourage mobilization, frequent postural changes, pressure-relief techniques DVT prophylaxis Encourage deep breathing exercise incentive spirometry. Monitor bladder. Toileting schedule. Continue current bladder management, with scans as needed and CIC if needed. Start bowel care program every day to obtain continence, prevent ileus. Maintain fall precautions Gait and balance retraining Provision of the necessary gait aids and functional adaptive equipment to enhance the patient's a functional sabianist Encourage deep breathing exercises and incentive spirometry RD evaluation Ensure adequate nutrition and hydration Discharge planning. (2) Postoperative hematoma: (3) Insomnia: (4) Impaired mobility and activities of daily living: (5) Obesity: Qualifiers: Obesity type: due to excess calories Obesity classification: adult class 1 (BMI 30 - 34.9) Serious obesity comorbidity presence: with serious comorbidity Body mass index: BMI 33.0-33.9 Qualified Code(s): E66.09 - Other obesity due to excess calories; Z68.33 - Body mass index [BMI] 33.0-33.9, adult Plan 83-year-old female with past medical history as above who presents to acute inpatient rehabilitation unit with functional impairments in the setting of elective left total hip arthroplasty. * Progressing to goals in therapy. Improved sleep overnight. Can increase Tylenol to 650 every 6 hours. Counseled on risks of falls with Ambien and benzodiazepine. She is insistent on remaining on this regimen and says it works well for her at home with no ill effect. Patient education Pressure ulcer prophylaxis; encourage mobilization, frequent postural changes, pressure-relief techniques DVT prophylaxis Encourage deep breathing exercise incentive spirometry. Monitor [...] equipment to enhance the patient's a functional sabianist Ensure adequate nutrition and hydration Sleep Discharge planning. Patient was personally seen by me, Dr. Laird, on the day of encounter, reviewed the history and the relevant portions of the chart, including current orders, allied health and engagement quality consultant notes, labs/imaging and performed timmons elements of exam and I formulated the plan of care and facilitated the medical decision making. I completed a substantive portion of this encounter, the medical decision making portion of this note in its entirety, including Allied health note review, nursing note review, engagement quality consultant note review, discussion with nursing and case management, and more than 50% of my time was spent on counseling and coordination of care, time spent 25 minutes In addition to above, patient's case reviewed at weekly team conference, discussed progress and goals of care, barriers/problems to date and discharge planning. Documented By: Dilip Laird MD 07/27/241442 Signed By: <Electronically signed by Dilip Laird MD> 07/27/24 1444 [facility] Work Phone: 1(770) 374-948201-28-2025 Progress note Author Heidi Mesa [facility] Note Date/Time July 27, 2024 1 :25pm [facility] [address] [place] [address] Physiatry(Rehab) Progress Note Signed Patient: Ashley Brown MR#: [id number] : 1940 Acct:[id number] Age/Sex: 83 / F Adm Date: 5 Loc: Room: 3W1247-2 Type: ADM IN Attending Dr: Dilip Laird MD Copies to: ~ Date of Service: 07/26/2024 Subjective Subjective Narrative: Ms. Brown is a 83 year old female with past medical history of essential hypertension, obesity, osteoarthritis, paroxysmal A-fib, CAD, s/p CABG who is known to us from a previous rehab admission back in August 2023 after an electiveright knee, now presenting with functional impairments s/p elective left total hip arthroplasty. She failed reasonable conservative treatment strategies and underwent the above procedure by Dr. Pichardo on 07/19/2024. Operative procedure as well as her hospital stay were uncomplicated. She is to weight-bear as tolerated to the lower extremity. Was started on twice daily aspirin for DVT prophylaxis. Interval History: Patient was seen and evaluated in her room while up in bed. She is alert, pleasant, oriented. Reports feeling tired, she has not been sleeping well despite taking Ambien nightly. States at home she also takes Xanax if Ambien isineffective. I discussed with the patient that these 2 medications should not be taken together which she understands. She feels like anxiety is what precipitates the insomnia. She has never been on any treatment for it, althoughdid take Cymbalta previously as a pain adjunct without major side effect. She is agreeable to trialing the medication again for anxiety. She otherwise reports no complaints or concerns today. Her pain is reasonably controlled. She seems to be tolerating therapy without major issues. Today sheambulated 200 feet with a walker and SBA, was able to do 6 stairs with standby assistance. Review of Systems Review of Systems All other systems reviewed & are negative unless noted below or in HPI Exam Physical Exam Vital Signs: Temp Pulse Resp BP Pulse Ox O2 Del Method 97.6 F 66 18 141/72 H 98 Room Air 07/26/24 08:32 07/26/24 08:32 07/26/24 08:32 07/26/24 08:32 07/26/24 08:32 07/26/24 08:32 Narrative: General: Awake, alert, oriented x3 HENT: Normal to inspection, normocephalic, atraumatic Eyes: PERRL, normal conjunctiva and sclera Neck: Normal ROM, normal visual inspection. Trachea midline. Cardio: Regular heart rate and rhythm Respiratory: Clear to auscultation bilaterally. Normal respiratory effort. No respiratory distress. GI: Abdomen soft, nontender, nondistended, active bowel sounds x4 quadrants Neuro: CN II-XII intact. Strength 5/5, equal bilaterally Extremities: Left hip incision, wound VAC dressing intact. Large hematoma to the lateral/posterior thigh. Tender to palpation. Psych: Mood and affect appropriate. Normal speech. Objective Labs 07/26/24 04:59 07/26/24 04:59 Labs: Laboratory Results - last 24 hr 07/26/24 04:59 Corrected WBC 6.9 Uncorrected WBC Count 6.9 RBC 3.49 L Hgb 11.2 L Hct 33.3 L MCV 95.2 MCH 32.0 MCHC 33.6 RDW 12.8 Plt Count 350 MPV 8.2 Neut % (Auto) 49.2 Lymph % (Auto) 22.1 Whitman % (Auto) 12.1 Eos % (Auto) 14.7 Baso % (Auto) 1.9 Nucleat RBC Rel Count 0.1 Neut # (Auto) 3.4 Lymph # (Auto) 1.5 Whitman # (Auto) 0.8 Eos # (Auto) 1.0 H Baso # (Auto) 0.1 PHA Creatinine Clear 44.86 Sodium 137 Potassium 4.0 Chloride 105 Carbon Dioxide 25.1 Anion Gap 10.9 BUN 21 Creatinine 0.84 Est GFR (CKD-EPI) > 60.0 Glucose 86 Calcium 8.6 Total Bilirubin 0.4 AST 29 ALT 43 Alkaline Phosphatase 108 H Total Protein 5.9 L Albumin 3.1 L Globulin 2.8 Albumin/Globulin Ratio 1.1 Additional Results Results Comments: I reviewed clinical lab tests, radiology reports and obtained and summated medical records and have ordered follow up lab tests and imaging studies as needed for rehabilitation care. Medications and Allergies Allergies and Active Meds: Allergies oxycodone (Percocet) Allergy (Unknown, Verified 07/19/24 09:05) Vomiting sulfamethoxazole (Bactrim) Allergy (Unknown, Verified 07/19/24 09:05) Unknown Reaction trimethoprim (Bactrim) Allergy (Unknown, Verified 07/19/24 09:05) Unknown Reaction hydrocodone (From Vicodin) Allergy (Verified 07/19/24 09:05) Vomiting Rocuronium [place] Allergy (Unknown, Uncoded 08/20/23 14:19) breathing difficulty Active Medications Generic Name Dose Route Start Last Admin Trade Name Freq PRN Reason Stop Dose Admin Acetaminophen 500 mg 07/22/24 11:03 07/26/24 02:39 Acetaminophen 500 Mg Tablet PO 07/22/25 11:14 500 mg Q6H PRN Administration Pain Al Hydrox/Mg Hydrox/Simethicone 30 ml 07/20/24 17:06 Mag Hydrox/Al Hydrox/Simeth 30 Ml Udc PO 07/20/25 17:05 Q4H PRN Indigestion Alprazolam 0.25 mg 07/20/24 17:13 07/26/24 02:39 Alprazolam 0.25 Mg Tablet PO 01/16/25 17:12 0.25 mg DAILY PRN Administration anxiety Aspirin 81 mg 07/20/24 21:00 07/26/24 08:33 Aspirin 81 Mg Tablet.Dr PO 07/20/25 20:59 81 mg BID ERNIE Administration Atorvastatin Calcium 10 mg 07/20/24 22:00 07/20/24 21:25 Atorvastatin 10 Mg Tablet PO 07/20/25 21:59 10 mg QHS ERNIE Administration Bisacodyl 10 mg 07/20/24 17:06 Bisacodyl 10 Mg Supp.Rect MA 07/20/25 17:05 DAILY PRN Constipation Cefadroxil 500 mg 07/20/24 21:00 07/26/24 08:33 Cefadroxil 500 Mg Capsule PO 07/26/24 21:01 500 mg BID ERNIE Administration Diphenhydramine HCl 25 mg 07/21/24 09:00 07/26/24 08:33 Diphenhydramine 25 Mg Capsule PO 07/21/25 08:59 25 mg QAM ERNIE Administration Docusate Sodium 100 mg 07/20/24 17:06 Docusate 100 Mg Capsule PO 07/20/25 17:05 BID PRN Constipation Docusate Sodium 283 mg 07/20/24 17:06 Docusate Enema 283 Mg/5 Ml Enema MA 07/20/25 17:05 DAILY PRN Constipation Duloxetine HCl 20 mg 07/27/24 09:00 Duloxetine 20 Mg Capsule. PO 07/27/25 08:59 DAILY ERNIE Ezetimibe 10 mg 07/20/24 22:00 07/25/24 20:27 Ezetimibe 10 Mg Tablet PO 07/20/25 21:59 10 mg HS ERNIE Administration Lactulose 30 gm 07/20/24 17:06 Lactulose 20 Gm/30 Ml Udc PO 07/20/25 17:05 DAILY PRN Constipation Losartan Potassium 25 mg 07/21/24 09:00 07/26/24 06:16 Losartan 25 Mg Tablet PO 07/21/25 08:59 25 mg QAM ERNIE Administration Metoprolol Succinate 25 mg 07/20/24 21:00 07/25/24 20:27 Metoprolol Succinate 25 Mg Tab.Er.24h PO 07/20/25 20:59 25 mg QPM ERNIE Administration Ondansetron HCl 4 mg 07/20/24 17:45 Ondansetron Odt 4 Mg Tab.Rapdis PO 07/20/25 17:44 Q8H PRN PRN Pantoprazole Sodium 40 mg 07/21/24 09:00 07/26/24 08:33 Pantoprazole 40 Mg Tablet. PO 07/21/25 08:59 40 mg DAILY ERNIE Administration Prednisone 10 mg 07/21/24 09:00 07/26/24 08:33 Prednisone 10 Mg Tablet PO 07/28/24 08:59 10 mg DAILY ERNIE Administration Senna/Docusate Sodium 2 tab 07/21/24 09:00 07/26/24 08:34 Sennosides/Docusate 8.6-50mg 1 Tab Tablet PO 07/21/25 08:59 Not Given DAILY ERNIE Sennosides 17.2 mg 07/21/24 12:00 Sennosides 8.6 Mg Tablet PO 07/21/25 11:59 DAILY@12 PRN If no BM in 2 days Sodium Chloride 0 ml 07/20/24 17:06 Sodium Chloride 0.9 % 10 Ml Syringe IV-PUSH 07/20/25 17:05 PRN PRN Flush Vitamin D 20 mcg 07/21/24 09:00 07/26/24 08:33 Cholecalciferol 10 Mcg (400 Units) Tablet PO 07/21/25 08:59 20 mcg DAILY ERNIE Administration Zolpidem Tartrate 10 mg 07/22/24 22:00 07/25/24 20:27 Zolpidem 10 Mg Tablet PO 01/18/25 21:59 10 mg QHS ERNIE Administration Assessment/Plan Assessment/Plan (1) Postoperative hematoma: (2) Insomnia: (3) Impaired mobility and activities of daily living: (4) S/P total left hip arthroplasty: (5) Obesity: Qualifiers: Obesity type: due to excess calories Obesity classification: adult class 1 (BMI 30 - 34.9) Serious obesity comorbidity presence: with serious comorbidity Body mass index: BMI 33.0-33.9 Qualified Code(s): E66.09 - Other obesity due to excess calories; Z68.33 - Body mass index [BMI] 33.0-33.9, adult Plan 83-year-old female with past medical history as above who presents to acute inpatient rehabilitation unit with functional impairments in the setting of elective left total hip arthroplasty. * Start Cymbalta 20 mg daily for anxiety. * A.m. labs reviewed, stable. * Progressing towards goals in therapy. Patient education Pressure ulcer prophylaxis; encourage mobilization, frequent postural changes, pressure-relief techniques DVT prophylaxis Encourage deep breathing exercise incentive spirometry. Monitor [...] equipment to enhance the patient's a functional sabianist Ensure adequate nutrition and hydration Sleep Discharge planning. I spent 22 minutes for services, including [id number] encounter with the patient, discussion of the case, plan of care, and exam; and [id number] activities, such as reviewing pertinent engagement quality consultant documentation, recent therapy notes, laboratory and radiology studies, and discussion of case with care team including physician, nursing, case briefer, and therapists. More than 50 % of time was spent on patient/family counseling or coordination of care. <Statement entered by Dilip Laird MD - 07/27/24 13:25> Patient was personally seen by me, Dr. Laird, on the day of encounter, reviewed the history and the relevant portions of the chart, including current orders, allied health and engagement quality consultant notes, labs/imaging and performed timmons elements of exam and I formulated the plan of care and facilitated the medical decision making. I completed a substantive portion of this encounter, the medical decision making portion of this note in its entirety, including Allied health note review, nursing note review, engagement quality consultant note review, discussion with nursing and case management, and more than 50% of my time was spent on counseling and coordination of care, time spent 20 minutes Documented By: Heidi Mesa APRN 07/26/24 1 140 Signed By: <Electronically signed by CHASITY Mesa> 07/26/24 1154 <Electronically signed by Dilip Laird MD> 07/27/24 5296 [facility] Work Phone: 1(368) 554-770001-28-2025 [place] [address] Physiatry(Rehab) Progress Note Signed Patient: Ashley Brown MR#: [id number] : 1940 Acct:[id number] Age/Sex: 83 / F Adm Date: 5 Loc: 5T Room: 3N0249-1 Type: ADM IN Attending Dr: Dilip Laird MD Copies to: ~ Date of Service: 07/27/2024 Subjective Subjective Narrative: Ms. Brown is a 83 year old female with past medical history of essential hypertension, obesity, osteoarthritis, paroxysmal A-fib, CAD, s/p CABG who is known to us from a previous rehab admission backin August 2023 after an electiveright knee, now presenting with functional impairments s/p elective left total hip arthroplasty. She failed reasonable conservative treatment strategies and underwent the above procedure by Dr. Pichardo on 07/19/2024. Operative procedure as well as her hospital stay were uncomplicated. She is to weight-bear as tolerated to the lower extremity. Was started on twice daily aspirin for DVT prophylaxis. Interval History: Slept well overnight. Pain controlled. She is ambulatory and progressing to goals. Discussed at team meeting Review of Systems Review of Systems All other systems reviewed & are negative unless noted below or in HPI Exam Physical Exam Vital Signs: Temp Pulse Resp BP Pulse Ox O2 Del Method 98.0 F 65 16 159/76 H 97 Room Air 07/27/24 05:00 07/27/24 08:25 07/27/24 05:00 07/27/24 08:25 07/27/24 08:07/27/24 13:30 Narrative: General: Awake, alert, oriented x3 HENT: Normal to inspection, normocephalic, atraumatic Eyes: PERRL, normal conjunctiva and sclera Neck: Normal ROM, normal visual inspection. Trachea midline. Cardio: Regular heart rate and rhythm Respiratory: Clear to auscultation bilaterally. Normal respiratory effort. No respiratory distress. GI: Abdomen soft, nontender, nondistended, active bowel sounds x4 quadrants Neuro: CN II-XII intact. Strength 5/5, equal bilaterally Extremities: Left hip incision, wound VAC dressing intact. Large hematoma to the lateral/posterior thigh. Tender to palpation. Psych: Mood and affect appropriate. Normal speech. Objective Labs 07/26/24 04:59 07/26/24 04:59 Medications and Allergies Allergies and Active Meds: Allergies oxycodone (Percocet) Allergy (Unknown, Verified 07/19/24 09:05) Vomiting sulfamethoxazole (Bactrim) Allergy (Unknown, Verified 07/19/24 09:05) Unknown Reaction trimethoprim (Bactrim) Allergy (Unknown, Verified 07/19/24 09:05) Unknown Reaction hydrocodone (From Vicodin) Allergy (Verified 07/19/24 09:05) Vomiting Rocuronium [place] Allergy (Unknown, Uncoded 08/20/23 14:19) breathing difficulty Active Medications Generic Name Dose Route Start Last Admin Trade Name Freq PRN Reason Stop Dose Admin Acetaminophen 650 mg 07/27/24 10:22 Acetaminophen 325 Mg Tablet PO 07/22/25 11:14 Q6H PRN Pain Al Hydrox/Mg Hydrox/Simethicone 30 ml 07/20/24 17:06 Mag Hydrox/Al Hydrox/Simeth 30 Ml Udc PO 07/20/25 17:05 Q4H PRN Indigestion Alprazolam 0.25 mg 07/20/24 17:13 07/26/24 23:00 Alprazolam 0.25 Mg Tablet PO 01/16/25 17:12 0.25 mg DAILY PRN Administration anxiety Aspirin 81 mg 07/20/24 21:00 07/27/24 08:28 Aspirin 81 Mg Tablet.Dr PO 07/20/25 20:59 81 mg BID ERNIE Administration Atorvastatin Calcium 10 mg 07/20/24 22:00 07/20/24 21:25 Atorvastatin 10 Mg Tablet PO 07/20/25 21:59 10 mg QHS ERNIE Administration Bisacodyl 10 mg 07/20/24 17:06 Bisacodyl 10 Mg Supp.Rect MA 07/20/25 17:05 DAILY PRN Constipation Diphenhydramine HCl 25 mg 07/21/24 09:00 07/27/24 08:28 Diphenhydramine 25 Mg Capsule PO 07/21/25 08:59 25 mg QAM ERNIE Administration Docusate Sodium 100 mg 07/20/24 17:06 Docusate 100 Mg Capsule PO 07/20/25 17:05 BID PRN Constipation Docusate Sodium 283 mg 07/20/24 17:06 Docusate Enema 283 Mg/5 Ml Enema MA 07/20/25 17:05 DAILY PRN Constipation Duloxetine HCl 20 mg 07/27/24 09:00 07/27/24 08:27 Duloxetine 20 Mg Capsule. PO 07/27/25 08:59 20 mg DAILY ERNIE Administration Ezetimibe 10 mg 07/20/24 22:00 07/26/24 21:01 Ezetimibe 10 Mg Tablet PO 07/20/25 21:59 10 mg HS ERNIE Administration Lactulose 30 gm 07/20/24 17:06 Lactulose 20 Gm/30 Ml Udc PO 07/20/25 17:05 DAILY PRN Constipation Losartan Potassium 25 mg 07/21/24 09:00 07/27/24 08:28 Losartan 25 Mg Tablet PO 07/21/25 08:59 25 mg QAM ERNIE Administration Metoprolol Succinate 25 mg 07/20/24 21:00 07/26/24 21:01 Metoprolol Succinate 25 Mg Tab.Er.24h PO 07/20/25 20:59 25 mg QPM ERNIE Administration Ondansetron HCl 4 mg 07/20/24 17:45 Ondansetron Odt 4 Mg Tab.Rapdis PO 07/20/25 17:44 Q8H PRN PRN Pantoprazole Sodium 40 mg 07/21/24 09:00 07/27/24 08:28 Pantoprazole 40 Mg Tablet.Dr PO 07/21/25 08:59 40 mg DAILY ERNIE Administration Prednisone 10 mg 07/21/24 09:00 07/27/24 08:28 Prednisone 10 Mg Tablet PO 07/28/24 08:59 10 mg DAILY ERNIE Administration Senna/Docusate Sodium 2 tab 07/21/24 09:00 07/27/24 08:31 Sennosides/Docusate 8.6-50mg 1 Tab Tablet PO 07/21/25 08:59 Not Given DAILY ERNIE Sennosides 17.2 mg 07/21/24 12:00 Sennosides 8.6 Mg Tablet PO 07/21/25 11:59 DAILY@12 PRN If no BM in 2 days Sodium Chloride 0 ml 07/20/24 17:06 Sodium Chloride 0.9 % 10 Ml Syringe IV-PUSH 07/20/25 17:05 PRN PRN Flush Vitamin D 20 mcg 07/21/24 09:00 07/27/24 08:28 Cholecalciferol 10 Mcg (400 Units) Tablet PO 07/21/25 08:59 20 mcg DAILY ERNIE Administration Zolpidem Tartrate 10 mg 07/22/24 22:00 07/26/24 21:01 Zolpidem 10 Mg Tablet PO 01/18/25 21:59 10 mg QHS ERNIE Administration Assessment/Plan Assessment/Plan (1) S/P total left hip arthroplasty: Plan: PT to improve pt's strength, endurance, bed mobility, transfers (sit-stand), standing balance, gaitquality on level surfaces and stairs, coordination and functional ADL skills. Will also work to improve pt's safety awareness during transfers and ambulation. OT for basic ADL re-training (bathing, dressing, toileting, continence, grooming, feeding, transferring), to increase activity tolerance and functional mobility and to evaluate for adaptive and assistive devices. Will work to improve pt's endurance and educate pt on fall prevention and energy conser vationtechniques-pacing strategies and proper breathing techniques during functional tasks. Patient education Pressure ulcer prophylaxis; encourage mobilization, frequent postural changes, pressure-relief techniques DVT prophylaxis Encourage deep breathing exercise incentive spirometry. Monitor bladder. Toileting schedule. Continue current bladder management, with scans as needed and CIC if needed. Start bowel care program every day to obtain continence, prevent ileus. Maintain fall precautions Gait and balance retraining Provision of the necessary gait aids and functional adaptive equipment to enhance the patient's a functional sabianist Encourage deep breathing exercises and incentive spirometry RD evaluation Ensure adequate nutrition and hydration Discharge planning. (2) Postoperative hematoma: (3) Insomnia: (4) Impaired mobility and activities of daily living: (5) Obesity: Qualifiers: Obesity type: due to excess calories Obesity classification: adult class 1 (BMI 30 - 34.9) Serious obesity comorbidity presence: with serious comorbidity Body mass index: BMI 33.0-33.9 Qualified Code(s): E66.09 - Other obesity due to excess calories; Z68.33 - Body mass index [BMI] 33.0-33.9, adult Plan 83-year-old female with past medical history as above who presents to acute inpatient rehabilitation unit with functional impairments in the setting of elective left total hip arthroplasty. * Progressing to goals in therapy. Improved sleep overnight. Can increase Tylenol to 650 every 6 hours. Counseled on risks of falls with Ambien and benzodiazepine. She is insistent on remaining on this regimen and says it works well for her at home with no ill effect. Patient education Pressure ulcer prophylaxis; encourage mobilization, frequent postural changes, pressure-relief techniques DVT prophylaxis Encourage deep breathing exercise incentive spirometry. Monitor [...] equipment to enhance the patient's a functional sabianist Ensure adequate nutrition and hydration Sleep Discharge planning. Patient was personally seen by me, Dr. Laird, on the day of encounter, reviewed the history and therelevant portions of the chart, including current orders, allied health and engagement quality consultant notes, labs/imaging and performed timmons elements of exam and I formulated the plan of care and facilitated the medical decision making. I completed a substantive portion of this encounter, the medical decision making portion of this note in its entirety, including Allied health note review, nursing note review, engagement quality consultant note review, discussion with nursing and case management, and more than 50% of my time was spent on counseling and coordination of care, time spent 25 minutes In addition to above, patient's case reviewed at weekly team conference, discussed progress and goals of care, barriers/problems to date and discharge planning. Documented By: Dilip Laird MD 07/27/241442 Signed By: 07/27/24 1444 [facility]01-28-2025 [place] [address] Physiatry(Rehab) Progress Note Signed Patient: Ashley Brown MR#: [id number] : 1940 Acct:[id number] Age/Sex: 83 / F Adm Date: 5 Loc: Room: 1N8744-5 Type: ADM IN Attending Dr: Dilip Laird MD Copies to: ~ Date of Service: 07/26/2024 Subjective Subjective Narrative: Ms. Brown is a 83 year old female with past medical history of essential hypertension, obesity, osteoarthritis, paroxysmal A-fib, CAD, s/p CABG who is known to us from a previous rehab admission backin August 2023 after an electiveright knee, now presenting with functional impairments s/p elective left total hip arthroplasty. She failed reasonable conservative treatment strategies and underwent the above procedure by Dr. Pichardo on 07/19/2024. Operative procedure as well as her hospital stay were uncomplicated. She is to weight-bear as tolerated to the lower extremity. Was started on twice daily aspirin for DVT prophylaxis. Interval History: Patient was seen and evaluated in her room while up in bed. She is alert, pleasant, oriented. Reports feeling tired, she has not been sleeping well despite taking Ambien nightly. States at home she also takes Xanax if Ambien isineffective. I discussed with the patient that these 2 medications should not be taken together which she understands. She feels like anxiety is what precipitates the insomnia. She has never been on any treatment for it, althoughdid take Cymbalta previously as a pain adjunct without major side effect. She is agreeable to trialing the medication again for anxiety. She otherwise reports no complaints or concerns today. Her pain is reasonably controlled. She seemsto be tolerating therapy without major issues. Today sheambulated 200 feet with a walker and SBA, was able to do 6 stairs with standby assistance. Review of Systems Review of Systems All other systems reviewed & are negative unless noted below or in HPI Exam Physical Exam Vital Signs: Temp Pulse Resp BP Pulse Ox O2 Del Method 97.6 F 66 18 141/72 H 98 Room Air 07/26/24 08:32 07/26/24 08:32 07/26/24 08:32 07/26/24 08:32 07/26/24 08:32 07/26/24 08:32 Narrative: General: Awake, alert, oriented x3 HENT: Normal to inspection, normocephalic, atraumatic Eyes: PERRL, normal conjunctiva and sclera Neck: Normal ROM, normal visual inspection. Trachea midline. Cardio: Regular heart rate and rhythm Respiratory: Clear to auscultation bilaterally. Normal respiratory effort. No respiratory distress. GI: Abdomen soft, nontender, nondistended, active bowel sounds x4 quadrants Neuro: CN II-XII intact. Strength 5/5, equal bilaterally Extremities: Left hip incision, wound VAC dressing intact. Large hematoma to the lateral/posterior thigh. Tender to palpation. Psych: Mood and affect appropriate. Normal speech. Objective Labs 07/26/24 04:59 07/26/24 04:59 Labs: Laboratory Results - last 24 hr 07/26/24 04:59 Corrected WBC 6.9 Uncorrected WBC Count 6.9 RBC 3.49 L Hgb 11.2 L Hct 33.3 L MCV 95.2 MCH 32.0 MCHC 33.6 RDW 12.8 Plt Count 350 MPV 8.2 Neut % (Auto) 49.2 Lymph % (Auto) 22.1 Whitman % (Auto) 12.1 Eos % (Auto) 14.7 Baso % (Auto) 1.9 Nucleat RBC Rel Count 0.1 Neut # (Auto) 3.4 Lymph # (Auto) 1.5 Whitman # (Auto) 0.8 Eos # (Auto) 1.0 H Baso # (Auto) 0.1 PHA Creatinine Clear 44.86 Sodium 137 Potassium 4.0 Chloride 105 Carbon Dioxide 25.1 Anion Gap 10.9 BUN 21 Creatinine 0.84 Est GFR (CKD-EPI) > 60.0 Glucose 86 Calcium 8.6 Total Bilirubin 0.4 AST 29 ALT 43 Alkaline Phosphatase 108 H Total Protein 5.9 L Albumin 3.1 L Globulin 2.8 Albumin/Globulin Ratio 1.1 Additional Results Results Comments: I reviewed clinical lab tests, radiology reports and obtained and summated medical records and haveordered follow up lab tests and imaging studies as needed for rehabilitation care. Medications and Allergies Allergies and Active Meds: Allergies oxycodone (Percocet) Allergy (Unknown, Verified 07/19/24 09:05) Vomiting sulfamethoxazole (Bactrim) Allergy (Unknown, Verified 07/19/24 09:05) Unknown Reaction trimethoprim (Bactrim) Allergy (Unknown, Verified 07/19/24 09:05) Unknown Reaction hydrocodone (From Vicodin) Allergy (Verified 07/19/24 09:05) Vomiting Rocuronium [place] Allergy (Unknown, Uncoded 08/20/23 14:19) breathing difficulty Active Medications Generic Name Dose Route Start Last Admin Trade Name Freq PRN Reason Stop Dose Admin Acetaminophen 500 mg 07/22/24 11:03 07/26/24 02:39 Acetaminophen 500 Mg Tablet PO 07/22/25 11:14 500 mg Q6H PRN Administration Pain Al Hydrox/Mg Hydrox/Simethicone 30 ml 07/20/24 17:06 Mag Hydrox/Al Hydrox/Simeth 30 Ml Udc PO 07/20/25 17:05 Q4H PRN Indigestion Alprazolam 0.25 mg 07/20/24 17:13 07/26/24 02:39 Alprazolam 0.25 Mg Tablet PO 01/16/25 17:12 0.25 mg DAILY PRN Administration anxiety Aspirin 81 mg 07/20/24 21:00 07/26/24 08:33 Aspirin 81 Mg Tablet. PO 07/20/25 20:59 81 mg BID ERNIE Administration Atorvastatin Calcium 10 mg 07/20/24 22:00 07/20/24 21:25 Atorvastatin 10 Mg Tablet PO 07/20/25 21:59 10 mg QHS ERNIE Administration Bisacodyl 10 mg 07/20/24 17:06 Bisacodyl 10 Mg Supp.Rect MA 07/20/25 17:05 DAILY PRN Constipation Cefadroxil 500 mg 07/20/24 21:00 07/26/24 08:33 Cefadroxil 500 Mg Capsule PO 07/26/24 21:01 500 mg BID ERNIE Administration Diphenhydramine HCl 25 mg 07/21/24 09:00 07/26/24 08:33 Diphenhydramine 25 Mg Capsule PO 07/21/25 08:59 25 mg QAM ERNIE Administration Docusate Sodium 100 mg 07/20/24 17:06 Docusate 100 Mg Capsule PO 07/20/25 17:05 BID PRN Constipation Docusate Sodium 283 mg 07/20/24 17:06 Docusate Enema 283 Mg/5 Ml Enema MA 07/20/25 17:05 DAILY PRN Constipation Duloxetine HCl 20 mg 07/27/24 09:00 Duloxetine 20 Mg Capsule. PO 07/27/25 08:59 DAILY ERNIE Ezetimibe 10 mg 07/20/24 22:00 07/25/24 20:27 Ezetimibe 10 Mg Tablet PO 07/20/25 21:59 10 mg HS ERNIE Administration Lactulose 30 gm 07/20/24 17:06 Lactulose 20 Gm/30 Ml Udc PO 07/20/25 17:05 DAILY PRN Constipation Losartan Potassium 25 mg 07/21/24 09:00 07/26/24 06:16 Losartan 25 Mg Tablet PO 07/21/25 08:59 25 mg QAM ERNIE Administration Metoprolol Succinate 25 mg 07/20/24 21:00 07/25/24 20:27 Metoprolol Succinate 25 Mg Tab.Er.24h PO 07/20/25 20:59 25 mg QPM ERNIE Administration Ondansetron HCl 4 mg 07/20/24 17:45 Ondansetron Odt 4 Mg Tab.Rapdis PO 07/20/25 17:44 Q8H PRN PRN Pantoprazole Sodium 40 mg 07/21/24 09:00 07/26/24 08:33 Pantoprazole 40 Mg Tablet. PO 07/21/25 08:59 40 mg DAILY ERNIE Administration Prednisone 10 mg 07/21/24 09:00 07/26/24 08:33 Prednisone 10 Mg Tablet PO 07/28/24 08:59 10 mg DAILY ERNIE Administration Senna/Docusate Sodium 2 tab 07/21/24 09:00 07/26/24 08:34 Sennosides/Docusate 8.6-50mg 1 Tab Tablet PO 07/21/25 08:59 Not Given DAILY ERINE Sennosides 17.2 mg 07/21/24 12:00 Sennosides 8.6 Mg Tablet PO 07/21/25 11:59 DAILY@12 PRN If no BM in 2 days Sodium Chloride 0 ml 07/20/24 17:06 Sodium Chloride 0.9 % 10 Ml Syringe IV-PUSH 07/20/25 17:05 PRN PRN Flush Vitamin D 20 mcg 07/21/24 09:00 07/26/24 08:33 Cholecalciferol 10 Mcg (400 Units) Tablet PO 07/21/25 08:59 20 mcg DAILY ERNIE Administration Zolpidem Tartrate 10 mg 07/22/24 22:00 07/25/24 20:27 Zolpidem 10 Mg Tablet PO 01/18/25 21:59 10 mg QHS ERNIE Administration Assessment/Plan Assessment/Plan (1) Postoperative hematoma: (2) Insomnia: (3) Impaired mobility and activities of daily living: (4) S/P total left hip arthroplasty: (5) Obesity: Qualifiers: Obesity type: due to excess calories Obesity classification: adult class 1 (BMI 30 - 34.9) Serious obesity comorbidity presence: with serious comorbidity Body mass index: BMI 33.0-33.9 Qualified Code(s): E66.09 - Other obesity due to excess calories; Z68.33 - Body mass index [BMI] 33.0-33.9, adult Plan 83-year-old female with past medical history as above who presents to acute inpatient rehabilitation unit with functional impairments in the setting of elective left total hip arthroplasty. * Start Cymbalta 20 mg daily for anxiety. * A.m. labs reviewed, stable. * Progressing towards goals in therapy. Patient education Pressure ulcer prophylaxis; encourage mobilization, frequent postural changes, pressure-relief techniques DVT prophylaxis Encourage deep breathing exercise incentive spirometry. Monitor [...] equipment to enhance the patient's a functional sabianist Ensure adequate nutrition and hydration Sleep Discharge planning. I spent 22 minutes for services, including [id number] encounter with the patient, discussion of the case, plan of care, and exam; and [id number] activities, such as reviewing pertinent engagement quality consultant documentation, recent therapy notes, laboratory and radiology studies, and discussion of case with care team including physician, nursing, case briefer, and therapists. More than 50 % of time was spent on patient/family counseling or coordination of care. Patient was personally seen by me, Dr. Laird, on the day of encounter, reviewed the history and therelevant portions of the chart, including current orders, allied health and engagement quality consultant notes, labs/imaging and performed timmosn elements of exam and I formulated the plan of care and facilitated the medical decision making. I completed a substantive portion of this encounter, the medical decision making portion of this note in its entirety, including Allied health note review, nursing note review, engagement quality consultant note review, discussion with nursing and case management, and more than 50% of my time was spent on counseling and coordination of care, time spent 20 minutes Documented By: Heidi Mesa APRN 07/26/24 1 140 Signed By: 07/26/24 1154 07/27/24 1325 [facility]01-25-2025 Progress note Author Dilip Laird [facility] Note Date/Time July 24, 2024 1 2:23pm [facility] [address] [place] [address] Physiatry(Rehab) Progress Note Signed Patient: Ashley Brown MR#: [id number] : 1940 Acct:[id number] Age/Sex: 83 / F Adm Date: 5 Loc: Room: 3G5751-4 Type: ADM IN Attending Dr: Dilip Laird MD Copies to: ~ Date of Service: 07/24/2024 Subjective Subjective Narrative: Ms. Brown is a 83 year old female with past medical history of essential hypertension, obesity, osteoarthritis, paroxysmal A-fib, CAD, s/p CABG who is known to us from a previous rehab admission back in August 2023 after an electiveright knee, now presenting with functional impairments s/p elective left total hip arthroplasty. She failed reasonable conservative treatment strategies and underwent the above procedure by Dr. Pichardo on 07/19/2024. Operative procedure as well as her hospital stay were uncomplicated. She is to weight-bear as tolerated to the lower extremity. Was started on twice daily aspirin for DVT prophylaxis. Interval History: Improving. C/o hip pain. Has not been using ice to hip. Does not want oxycodone or other pain meds. Review of Systems Review of Systems All other systems reviewed & are negative unless noted below or in HPI Exam Physical Exam Vital Signs: Temp Pulse Resp BP Pulse Ox O2 Del Method 97.7 F 66 18 152/77 H 98 Room Air 07/24/24 05:00 07/24/24 08:35 07/24/24 08:35 07/24/24 08:35 07/24/24 08:35 07/24/24 10:00 Narrative: General: Awake, alert, oriented x3 HENT: Normal to inspection, normocephalic, atraumatic Eyes: PERRL, normal conjunctiva and sclera Neck: Normal ROM, normal visual inspection. Trachea midline. Cardio: Regular heart rate and rhythm Respiratory: Clear to auscultation bilaterally. Normal respiratory effort. No respiratory distress. GI: Abdomen soft, nontender, nondistended, active bowel sounds x4 quadrants Neuro: CN II-XII intact. Strength 5/5, equal bilaterally Extremities: Left hip incision, wound VAC dressing intact. Large hematoma to the lateral/posterior thigh. Tender to palpation. Psych: Mood and affect appropriate. Normal speech. Objective Labs 07/21/24 04:50 07/22/24 04:41 Medications and Allergies Allergies and Active Meds: Allergies oxycodone (Percocet) Allergy (Unknown, Verified 07/19/24 09:05) Vomiting sulfamethoxazole (Bactrim) Allergy (Unknown, Verified 07/19/24 09:05) Unknown Reaction trimethoprim (Bactrim) Allergy (Unknown, Verified 07/19/24 09:05) Unknown Reaction hydrocodone (From Vicodin) Allergy (Verified 07/19/24 09:05) Vomiting Rocuronium [place] Allergy (Unknown, Uncoded 08/20/23 14:19) breathing difficulty Active Medications Generic Name Dose Route Start Last Admin Trade Name Freq PRN Reason Stop Dose Admin Acetaminophen 500 mg 07/22/24 11:03 07/23/24 21:06 Acetaminophen 500 Mg Tablet PO 07/22/25 11:14 500 mg Q6H PRN Administration Pain Al Hydrox/Mg Hydrox/Simethicone 30 ml 07/20/24 17:06 Mag Hydrox/Al Hydrox/Simeth 30 Ml Udc PO 07/20/25 17:05 Q4H PRN Indigestion Alprazolam 0.25 mg 07/20/24 17:13 07/23/24 23:55 Alprazolam 0.25 Mg Tablet PO 01/16/25 17:12 0.25 mg DAILY PRN Administration anxiety Aspirin 81 mg 07/20/24 21:00 07/24/24 08:36 Aspirin 81 Mg Tablet.Dr PO 07/20/25 20:59 81 mg BID ERNIE Administration Atorvastatin Calcium 10 mg 07/20/24 22:00 07/20/24 21:25 Atorvastatin 10 Mg Tablet PO 07/20/25 21:59 10 mg QHS ERNIE Administration Bisacodyl 10 mg 07/20/24 17:06 Bisacodyl 10 Mg Supp.Rect MA 07/20/25 17:05 DAILY PRN Constipation Cefadroxil 500 mg 07/20/24 21:00 07/24/24 08:36 Cefadroxil 500 Mg Capsule PO 07/26/24 21:01 500 mg BID ERNIE Administration Diphenhydramine HCl 25 mg 07/21/24 09:00 07/24/24 08:36 Diphenhydramine 25 Mg Capsule PO 07/21/25 08:59 25 mg QAM ERNIE Administration Docusate Sodium 100 mg 07/20/24 17:06 Docusate 100 Mg Capsule PO 07/20/25 17:05 BID PRN Constipation Docusate Sodium 283 mg 07/20/24 17:06 Docusate Enema 283 Mg/5 Ml Enema MA 07/20/25 17:05 DAILY PRN Constipation Ezetimibe 10 mg 07/20/24 22:00 07/23/24 21:06 Ezetimibe 10 Mg Tablet PO 07/20/25 21:59 10 mg HS ERNIE Administration Lactulose 30 gm 07/20/24 17:06 Lactulose 20 Gm/30 Ml Udc PO 07/20/25 17:05 DAILY PRN Constipation Losartan Potassium 25 mg 07/21/24 09:00 07/24/24 05:38 Losartan 25 Mg Tablet PO 07/21/25 08:59 25 mg QAM ERNIE Administration Metoprolol Succinate 25 mg 07/20/24 21:00 07/23/24 21:06 Metoprolol Succinate 25 Mg Tab.Er.24h PO 07/20/25 20:59 25 mg QPM ERNIE Administration Ondansetron HCl 4 mg 07/20/24 17:45 Ondansetron Odt 4 Mg Tab.Rapdis PO 07/20/25 17:44 Q8H PRN PRN Pantoprazole Sodium 40 mg 07/21/24 09:00 07/24/24 08:36 Pantoprazole 40 Mg Tablet.Dr PO 07/21/25 08:59 40 mg DAILY ERNIE Administration Prednisone 10 mg 07/21/24 09:00 07/24/24 08:36 Prednisone 10 Mg Tablet PO 07/28/24 08:59 10 mg DAILY ERNIE Administration Senna/Docusate Sodium 2 tab 07/21/24 09:00 07/24/24 08:36 Sennosides/Docusate 8.6-50mg 1 Tab Tablet PO 07/21/25 08:59 Not Given DAILY ERNIE Sennosides 17.2 mg 07/21/24 12:00 Sennosides 8.6 Mg Tablet PO 07/21/25 11:59 DAILY@12 PRN If no BM in 2 days Sodium Chloride 0 ml 07/20/24 17:06 Sodium Chloride 0.9 % 10 Ml Syringe IV-PUSH 07/20/25 17:05 PRN PRN Flush Vitamin D 20 mcg 07/21/24 09:00 07/24/24 08:36 Cholecalciferol 10 Mcg (400 Units) Tablet PO 07/21/25 08:59 20 mcg DAILY ERNIE Administration Zolpidem Tartrate 10 mg 07/22/24 22:00 07/23/24 21:05 Zolpidem 10 Mg Tablet PO 01/18/25 21:59 10 mg QHS ERNIE Administration Assessment/Plan Assessment/Plan (1) Postoperative hematoma: (2) Insomnia: (3) Impaired mobility and activities of daily living: (4) S/P total left hip arthroplasty: (5) Obesity: Qualifiers: Obesity type: due to excess calories Obesity classification: adult class 1 (BMI 30 - 34.9) Serious obesity comorbidity presence: with serious comorbidity Body mass index: BMI 33.0-33.9 Qualified Code(s): E66.09 - Other obesity due to excess calories; Z68.33 - Body mass index [BMI] 33.0-33.9, adult Plan 83-year-old female with past medical history as above who presents to acute inpatient rehabilitation unit with functional impairments in the setting of elective left total hip arthroplasty. * Continue plan as ordered * Add ice to left hip * Walking 235' and able to do a few stairs. Patient education Pressure ulcer prophylaxis; encourage mobilization, frequent postural changes, pressure-relief techniques DVT prophylaxis Encourage deep breathing exercise incentive spirometry. Monitor [...] equipment to enhance the patient's a functional sabianist Ensure adequate nutrition and hydration Sleep Discharge planning. I spent 25 minutes for services, including [id number] encounter with the patient, discussion of the case, plan of care, and exam; and xyqzmqv-[id number] activities, such as reviewing pertinent engagement quality consultant documentation, recent therapy notes, laboratory and radiology studies, and discussion of case with care team including physician, nursing, case briefer, and therapists. More than 50 % of time was spent on patient/family counseling or coordination of care. Documented By: Dilip Laird MD 07/24/24 1221 Signed By: <Electronically signed by Dilip Laird MD> 07/24/24 1223 [facility] Work Phone: [phone]) 951-749901-25-2025 [place] [address] Physiatry(Rehab) Progress Note Signed Patient: Ashley Brown MR#: [id number] : 1940 Acct:[id number] Age/Sex: 83 / F Adm Date: 5 Loc: Room: [address] [place] [address] Type: ADM IN Attending Dr: Dilip Laird MD Copies to: ~ Date of Service: 07/24/2024 Subjective Subjective Narrative: Ms. Brown is a 83 year old female with past medical history of essential hypertension, obesity, osteoarthritis, paroxysmal A-fib, CAD, s/p CABG who is known to us from a previous rehab admission backin August 2023 after an electiveright knee, now presenting with functional impairments s/p elective left total hip arthroplasty. She failed reasonable conservative treatment strategies and underwent the above procedure by Dr. Pichardo on 07/19/2024. Operative procedure as well as her hospital stay were uncomplicated. She is to weight-bear as tolerated to the lower extremity. Was started on twice daily aspirin for DVT prophylaxis. Interval History: Improving. C/o hip pain. Has not been using ice to hip. Does not want oxycodone or other pain meds. Review of Systems Review of Systems All other systems reviewed & are negative unless noted below or in HPI Exam Physical Exam Vital Signs: Temp Pulse Resp BP Pulse Ox O2 Del Method 97.7 F 66 18 152/77 H 98 Room Air 07/24/24 05:00 07/24/24 08:35 07/24/24 08:35 07/24/24 08:35 07/24/24 08:35 07/24/24 10:00 Narrative: General: Awake, alert, oriented x3 HENT: Normal to inspection, normocephalic, atraumatic Eyes: PERRL, normal conjunctiva and sclera Neck: Normal ROM, normal visual inspection. Trachea midline. Cardio: Regular heart rate and rhythm Respiratory: Clear to auscultation bilaterally. Normal respiratory effort. No respiratory distress. GI: Abdomen soft, nontender, nondistended, active bowel sounds x4 quadrants Neuro: CN II-XII intact. Strength 5/5, equal bilaterally Extremities: Left hip incision, wound VAC dressing intact. Large hematoma to the lateral/posterior thigh. Tender to palpation. Psych: Mood and affect appropriate. Normal speech. Objective Labs 07/21/24 04:50 07/22/24 04:41 Medications and Allergies Allergies and Active Meds: Allergies oxycodone (Percocet) Allergy (Unknown, Verified 07/19/24 09:05) Vomiting sulfamethoxazole (Bactrim) Allergy (Unknown, Verified 07/19/24 09:05) Unknown Reaction trimethoprim (Bactrim) Allergy (Unknown, Verified 07/19/24 09:05) Unknown Reaction hydrocodone (From Vicodin) Allergy (Verified 07/19/24 09:05) Vomiting Rocuronium [place] Allergy (Unknown, Uncoded 08/20/23 14:19) breathing difficulty Active Medications Generic Name Dose Route Start Last Admin Trade Name Freq PRN Reason Stop Dose Admin Acetaminophen 500 mg 07/22/24 11:03 07/23/24 21:06 Acetaminophen 500 Mg Tablet PO 07/22/25 11:14 500 mg Q6H PRN Administration Pain Al Hydrox/Mg Hydrox/Simethicone 30 ml 07/20/24 17:06 Mag Hydrox/Al Hydrox/Simeth 30 Ml Udc PO 07/20/25 17:05 Q4H PRN Indigestion Alprazolam 0.25 mg 07/20/24 17:13 07/23/24 23:55 Alprazolam 0.25 Mg Tablet PO 01/16/25 17:12 0.25 mg DAILY PRN Administration anxiety Aspirin 81 mg 07/20/24 21:00 07/24/24 08:36 Aspirin 81 Mg Tablet.Dr PO 07/20/25 20:59 81 mg BID ERNIE Administration Atorvastatin Calcium 10 mg 07/20/24 22:00 07/20/24 21:25 Atorvastatin 10 Mg Tablet PO 07/20/25 21:59 10 mg QHS ERNIE Administration Bisacodyl 10 mg 07/20/24 17:06 Bisacodyl 10 Mg Supp.Rect MA 07/20/25 17:05 DAILY PRN Constipation Cefadroxil 500 mg 07/20/24 21:00 07/24/24 08:36 Cefadroxil 500 Mg Capsule PO 07/26/24 21:01 500 mg BID ERNIE Administration Diphenhydramine HCl 25 mg 07/21/24 09:00 07/24/24 08:36 Diphenhydramine 25 Mg Capsule PO 07/21/25 08:59 25 mg QAM ERNIE Administration Docusate Sodium 100 mg 07/20/24 17:06 Docusate 100 Mg Capsule PO 07/20/25 17:05 BID PRN Constipation Docusate Sodium 283 mg 07/20/24 17:06 Docusate Enema 283 Mg/5 Ml Enema MA 07/20/25 17:05 DAILY PRN Constipation Ezetimibe 10 mg 07/20/24 22:00 07/23/24 21:06 Ezetimibe 10 Mg Tablet PO 07/20/25 21:59 10 mg HS ERNIE Administration Lactulose 30 gm 07/20/24 17:06 Lactulose 20 Gm/30 Ml Udc PO 07/20/25 17:05 DAILY PRN Constipation Losartan Potassium 25 mg 07/21/24 09:00 07/24/24 05:38 Losartan 25 Mg Tablet PO 07/21/25 08:59 25 mg QAM ERNIE Administration Metoprolol Succinate 25 mg 07/20/24 21:00 07/23/24 21:06 Metoprolol Succinate 25 Mg Tab.Er.24h PO 07/20/25 20:59 25 mg QPM ERNIE Administration Ondansetron HCl 4 mg 07/20/24 17:45 Ondansetron Odt 4 Mg Tab.Rapdis PO 07/20/25 17:44 Q8H PRN PRN Pantoprazole Sodium 40 mg 07/21/24 09:00 07/24/24 08:36 Pantoprazole 40 Mg Tablet.Dr PO 07/21/25 08:59 40 mg DAILY ERNIE Administration Prednisone 10 mg 07/21/24 09:00 07/24/24 08:36 Prednisone 10 Mg Tablet PO 07/28/24 08:59 10 mg DAILY ERNIE Administration Senna/Docusate Sodium 2 tab 07/21/24 09:00 07/24/24 08:36 Sennosides/Docusate 8.6-50mg 1 Tab Tablet PO 07/21/25 08:59 Not Given DAILY ERNIE Sennosides 17.2 mg 07/21/24 12:00 Sennosides 8.6 Mg Tablet PO 07/21/25 11:59 DAILY@12 PRN If no BM in 2 days Sodium Chloride 0 ml 07/20/24 17:06 Sodium Chloride 0.9 % 10 Ml Syringe IV-PUSH 07/20/25 17:05 PRN PRN Flush Vitamin D 20 mcg 07/21/24 09:00 07/24/24 08:36 Cholecalciferol 10 Mcg (400 Units) Tablet PO 07/21/25 08:59 20 mcg DAILY ERNIE Administration Zolpidem Tartrate 10 mg 07/22/24 22:00 07/23/24 21:05 Zolpidem 10 Mg Tablet PO 01/18/25 21:59 10 mg QHS ERNIE Administration Assessment/Plan Assessment/Plan (1) Postoperative hematoma: (2) Insomnia: (3) Impaired mobility and activities of daily living: (4) S/P total left hip arthroplasty: (5) Obesity: Qualifiers: Obesity type: due to excess calories Obesity classification: adult class 1 (BMI 30 - 34.9) Serious obesity comorbidity presence: with serious comorbidity Body mass index: BMI 33.0-33.9 Qualified Code(s): E66.09 - Other obesity due to excess calories; Z68.33 - Body mass index [BMI] 33.0-33.9, adult Plan 83-year-old female with past medical history as above who presents to acute inpatient rehabilitation unit with functional impairments in the setting of elective left total hip arthroplasty. * Continue plan as ordered * Add ice to left hip * Walking 235' and able to do a few stairs. Patient education Pressure ulcer prophylaxis; encourage mobilization, frequent postural changes, pressure-relief techniques DVT prophylaxis Encourage deep breathing exercise incentive spirometry. Monitor [...] equipment to enhance the patient's a functional sabianist Ensure adequate nutrition and hydration Sleep Discharge planning. I spent 25 minutes for services, including [id number] encounter with the patient, discussion of the case, plan of care, and exam; and [id number] activities, such as reviewing pertinent engagement quality consultant documentation, recent therapy notes, laboratory and radiology studies, and discussion of case with care team including physician, nursing, case briefer, and therapists. More than 50 % of time was spent on patient/family counseling or coordination of care. Documented By: Dilip Laird MD 07/24/241220 Signed By: 07/24/241222 [facility]01-23-2025 Progress note Author Dilip Laird [facility] Note Date/Time July 22, 2024 1 1:02am [facility] [address] [place] [address] Physiatry(Rehab) Progress Note Signed Patient: Ashley Brown MR#: [id number] : 1940 Acct:[id number] Age/Sex: 83 / F Adm Date: 5 Loc: 5T Room: 7C6020-4 Type: ADM IN Attending Dr: Dilip Laird MD Copies to: ~ Date of Service: 07/22/2024 Subjective Subjective Narrative: Ms. Brown is a 83 year old female with past medical history of essential hypertension, obesity, osteoarthritis, paroxysmal A-fib, CAD, s/p CABG who is known to us from a previous rehab admission back in August 2023 after an electiveright knee, now presenting with functional impairments s/p elective left total hip arthroplasty. She failed reasonable conservative treatment strategies and underwent the above procedure by Dr. Pichardo on 07/19/2024. Operative procedure as well as her hospital stay were uncomplicated. She is to weight-bear as tolerated to the lower extremity. Was started on twice daily aspirin for DVT prophylaxis. Interval History: Improved sleep with home ambien. Requesting d/c opioids. Working with therapy,pain and weakness somewhat limiting. Noted elevated LFTs. Similar issue postop in August. Review of Systems Review of Systems All other systems reviewed & are negative unless noted below or in HPI Exam Physical Exam Vital Signs: Temp Pulse Resp BP Pulse Ox O2 Del Method 98.1 F 69 20 125/79 99 Room Air 07/22/24 05:10 07/22/24 05:10 07/22/24 05:10 07/22/24 05:10 07/22/24 05:10 07/22/24 05:10 Narrative: General: Awake, alert, oriented x3 HENT: Normal to inspection, normocephalic, atraumatic Eyes: PERRL, normal conjunctiva and sclera Neck: Normal ROM, normal visual inspection. Trachea midline. Cardio: Regular heart rate and rhythm Respiratory: Clear to auscultation bilaterally. Normal respiratory effort. No respiratory distress. GI: Abdomen soft, nontender, nondistended, active bowel sounds x4 quadrants Neuro: CN II-XII intact. Strength 5/5, equal bilaterally Extremities: Left hip incision, wound VAC dressing intact. Large hematoma to the lateral/posterior thigh. Tender to palpation. Psych: Mood and affect appropriate. Normal speech. Objective Labs 07/21/24 04:50 07/22/24 04:41 Labs: Laboratory Results - last 24 hr 07/21/24 07/22/24 04:50 04:41 PHA Creatinine Clear 36.53 Sodium 135 L Potassium 4.4 Chloride 103 Carbon Dioxide 25.8 Anion Gap 10.6 BUN 17 Creatinine 1.02 Est GFR (CKD-EPI) 55.269 Glucose 87 Calcium 8.9 Total Bilirubin 0.5 AST 145 H ALT 146 H Alkaline Phosphatase 169 H Total Protein 6.2 L Albumin 3.3 L Globulin 2.9 Albumin/Globulin Ratio 1.1 Prealbumin 14.4 L Medications and Allergies Allergies and Active Meds: Allergies oxycodone (Percocet) Allergy (Unknown, Verified 07/19/24 09:05) Vomiting sulfamethoxazole (Bactrim) Allergy (Unknown, Verified 07/19/24 09:05) Unknown Reaction trimethoprim (Bactrim) Allergy (Unknown, Verified 07/19/24 09:05) Unknown Reaction hydrocodone (From Vicodin) Allergy (Verified 07/19/24 09:05) Vomiting Rocuronium [place] Allergy (Unknown, Uncoded 08/20/23 14:19) breathing difficulty Active Medications Generic Name Dose Route Start Last Admin Trade Name Freq PRN Reason Stop Dose Admin Acetaminophen 1,000 mg 07/20/24 22:00 07/21/24 04:57 Acetaminophen 500 Mg Tablet PO 07/20/25 21:59 1,000 mg Q8H ERNIE Administration Al Hydrox/Mg Hydrox/Simethicone 30 ml 07/20/24 17:06 Mag Hydrox/Al Hydrox/Simeth 30 Ml Udc PO 07/20/25 17:05 Q4H PRN Indigestion Alprazolam 0.25 mg 07/20/24 17:13 Alprazolam 0.25 Mg Tablet PO 01/16/25 17:12 DAILY PRN anxiety Aspirin 81 mg 07/20/24 21:00 07/21/24 22:01 Aspirin 81 Mg Tablet.Dr PO 07/20/25 20:59 81 mg BID ERNIE Administration Atorvastatin Calcium 10 mg 07/20/24 22:00 07/20/24 21:25 Atorvastatin 10 Mg Tablet PO 07/20/25 21:59 10 mg QHS ERNIE Administration Bisacodyl 10 mg 07/20/24 17:06 Bisacodyl 10 Mg Supp.Rect MA 07/20/25 17:05 DAILY PRN Constipation Cefadroxil 500 mg 07/20/24 21:00 07/21/24 22:01 Cefadroxil 500 Mg Capsule PO 07/26/24 21:01 500 mg BID ERNIE Administration Diphenhydramine HCl 25 mg 07/21/24 09:00 07/21/24 08:23 Diphenhydramine 25 Mg Capsule PO 07/21/25 08:59 25 mg QAM ERNIE Administration Docusate Sodium 100 mg 07/20/24 17:06 Docusate 100 Mg Capsule PO 07/20/25 17:05 BID PRN Constipation Docusate Sodium 283 mg 07/20/24 17:06 Docusate Enema 283 Mg/5 Ml Enema MA 07/20/25 17:05 DAILY PRN Constipation Ezetimibe 10 mg 07/20/24 22:00 07/21/24 22:01 Ezetimibe 10 Mg Tablet PO 07/20/25 21:59 10 mg HS ERNIE Administration Lactulose 30 gm 07/20/24 17:06 Lactulose 20 Gm/30 Ml Udc PO 07/20/25 17:05 DAILY PRN Constipation Losartan Potassium 25 mg 07/21/24 09:00 07/21/24 08:23 Losartan 25 Mg Tablet PO 07/21/25 08:59 25 mg QAM ERNIE Administration Metoprolol Succinate 25 mg 07/20/24 21:00 07/21/24 22:01 Metoprolol Succinate 25 Mg Tab.Er.24h PO 07/20/25 20:59 25 mg QPM ERNIE Administration Ondansetron HCl 4 mg 07/20/24 17:45 Ondansetron Odt 4 Mg Tab.Rapdis PO 07/20/25 17:44 Q8H PRN PRN Oxycodone HCl 5 mg 07/20/24 17:14 07/21/24 22:01 Oxycodone Ir 5 Mg Tablet PO 5 mg Q4H PRN Administration Pain Scale 7 - 10 Pantoprazole Sodium 40 mg 07/21/24 09:00 07/21/24 08:23 Pantoprazole 40 Mg Tablet.Dr PO 07/21/25 08:59 40 mg DAILY ERNIE Administration Prednisone 10 mg 07/21/24 09:00 07/21/24 08:23 Prednisone 10 Mg Tablet PO 07/21/25 08:59 10 mg DAILY ERNIE Administration Senna/Docusate Sodium 2 tab 07/21/24 09:00 07/21/24 08:24 Sennosides/Docusate 8.6-50mg 1 Tab Tablet PO 07/21/25 08:59 1 tab DAILY ERNIE Administration Sennosides 17.2 mg 07/21/24 12:00 Sennosides 8.6 Mg Tablet PO 07/21/25 11:59 DAILY@12 PRN If no BM in 2 days Sodium Chloride 0 ml 07/20/24 17:06 Sodium Chloride 0.9 % 10 Ml Syringe IV-PUSH 07/20/25 17:05 PRN PRN Flush Tramadol HCl 50 mg 07/20/24 17:15 07/20/24 21:24 Tramadol 50 Mg Tablet PO 01/16/25 17:14 50 mg Q6H PRN Administration Pain Scale 4 - 6 Vitamin D 20 mcg 07/21/24 09:00 07/21/24 08:23 Cholecalciferol 10 Mcg (400 Units) Tablet PO 07/21/25 08:59 20 mcg DAILY ERNIE Administration Zolpidem Tartrate 10 mg 07/21/24 11:48 07/21/24 22:01 Zolpidem 10 Mg Tablet PO 01/17/25 11:47 10 mg QHS PRN Administration Sleep Assessment/Plan Assessment/Plan (1) Postoperative hematoma: (2) Insomnia: (3) Impaired mobility and activities of daily living: (4) S/P total left hip arthroplasty: (5) Obesity: Qualifiers: Body mass index: BMI 33.0-33.9 Obesity classification: adult class 1 (BMI 30 - 34.9) Obesity type: due to excess calories Serious obesity comorbidity presence: with serious comorbidity Qualified Code(s): E66.09 - Other obesity due to excess calories; Z68.33 - Body mass index [BMI] 33.0-33.9, adult Plan 83-year-old female with past medical history as above who presents to acute inpatient rehabilitation unit with functional impairments in the setting of elective left total hip arthroplasty. * Refusing lovenox. continue aspirin twice daily and monitor closely for DVT s/s. * dc opioids * schedule ambien * trend lfts. Resolved with holding statin postop in August. Would like to resume tylenol given off opioid. Patient education Pressure ulcer prophylaxis; encourage mobilization, frequent postural changes, pressure-relief techniques DVT prophylaxis Encourage deep breathing exercise incentive spirometry. Monitor [...] equipment to enhance the patient's a functional sabianist Ensure adequate nutrition and hydration Sleep Discharge planning. I spent 26 minutes for services, including [id number] encounter with the patient, discussion of the case, plan of care, and exam; and [id number] activities, such as reviewing pertinent engagement quality consultant documentation, recent therapy notes, laboratory and radiology studies, and discussion of case with care team including physician, nursing, case briefer, and therapists. More than 50 % of time was spent on patient/family counseling or coordination of care. Documented By: Dilip Laird MD 07/22/24 0818 Signed By: <Electronically signed by Dilip Laird MD> 07/22/24 5509 [facility] Work Phone: 1(960) 962-915101-23-2025 History and physical note Author Heidi Mesa [facility] Note Date/Time July 22, 2024 1 1:00am [facility] [address] [place] [address] Physiatry (Rehab) H&P Signed Patient: Ashley Brown MR#: [id number] : 1940 Acct:[id number] Age/Sex: 83 / F Adm Date: 5 Loc: Room: [address] [place] [address] Type: ADM IN Attending Dr: Dilip Laird MD Copies to: DO Heidi Wheat APRN Joseph Riley, MD~ Date of Service: 07/21/2024 HPI The patient was seen and examined on: 07/21/24 History of Present Illness: Ms. Brown is a 83 year old female with past medical history of essential hypertension, obesity, osteoarthritis, paroxysmal A-fib, CAD, s/p CABG who is known to us from a previous rehab admission back in August 2023 after an electiveright knee, now presenting with functional impairments s/p elective left total hip arthroplasty. She failed reasonable conservative treatment strategies and underwent the above procedure by Dr. Pichardo on 07/19/2024. Operative procedure as well as her hospital stay were uncomplicated. She is to weight-bear as tolerated to the lower extremity. Was started on twice daily aspirin for DVT prophylaxis. At this time patient is not at her functional baseline. Typically she is independent with ADLs and IADLs, uses a walker/cane for ambulation, drives. On admission she reports anticipated left hip discomfort, although manageable. Left hip incision is covered with wound VAC dressing. There is a large hematomato the lateral thigh, tender to palpation. Will monitor. Otherwise, patient offers no complaints of shortness of breath, chest pain, palpitations. Her vitals are WNL.She is tolerating therapy so far. She is requesting Ambien to be added for insomnia as per home regimen. [facility] Medical History Impaired mobility and activities of daily living COVID Screening mammography declined Elevated cholesterol Primary insomnia Other osteoporosis without current pathological fracture Obesity (BMI 30-39.9) Myalgia due to statin Gastroesophageal reflux disease with esophagitis without hemorrhage Acute recurrent maxillary sinusitis Arthritis Primary osteoarthritis of both knees Vaginitis and vulvovaginitis Primary hypertension Paroxysmal atrial fibrillation patient denies any hx of afib Menopause Generalized anxiety disorder Essential hypertension Carotid stenosis, left US: B/L plaque < 50% - 08/2021 Atopic dermatitis, unspecified Surgical History S/P total left hip arthroplasty History of bilateral knee arthroplasty History of tubal ligation Hx laparoscopic cholecystectomy H/O esophagogastroduodenoscopy History of bunionectomy of left great toe History of breast biopsy History of D&C History of ear, nose, and throat (ENT) surgery 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, left History of phacoemulsification of cataract of both eyes with intraocular lens implantation History of stent insertion of renal artery (~2011) History of section History of heart bypass surgery 2020 in [place] History of cardiac catheterization prior to open heart surgery Family History Family/Other Legacy FamHx Relation: Migrated Family History; Legacy FamHx Problem: Problem Title : Mother (biol.) Family History of Mother , Problem Description : Mother (biol.) Family History of Mother , Problem Status : Active Father CHF (congestive heart failure) Mother Lung cancer Brother Liver cancer Bladder cancer Social History Smoking Status: Never smoker Substance Use Type: None Substance Abuse Comment: 1 drink a week Review of Systems Review of Systems All other systems reviewed & are negative unless noted below or in HPI Meds Medications and Allergies Allergies oxycodone (Percocet) Allergy (Unknown, Verified 07/19/24 09:05) Vomiting sulfamethoxazole (Bactrim) Allergy (Unknown, Verified 07/19/24 09:05) Unknown Reaction trimethoprim (Bactrim) Allergy (Unknown, Verified 07/19/24 09:05) Unknown Reaction hydrocodone (From Vicodin) Allergy (Verified 07/19/24 09:05) Vomiting Rocuronium [place] Allergy (Unknown, Uncoded 08/20/23 14:19) breathing difficulty Home and Active Meds: Home Medications atorvastatin 20 mg tablet 10 mg PO QHS 08/20/23 [History Confirmed 07/20/24] metoprolol succinate 25 mg tablet,extended release 24 hr 25 mg PO QPM 30 days #30 tabs 09/15/23 [Rx Confirmed 07/20/24] omeprazole 20 mg capsule,delayed release 20 mg PO DAILY 09/19/23 [History Confirmed 07/20/24] ezetimibe 10 mg tablet (Zetia) 10 mg PO HS 11/19/23 [History Confirmed 07/20/24] losartan 25 mg tablet 25 mg PO QAM 11/19/23 [History Confirmed 07/20/24] zolpidem 10 mg tablet 10 mg PO QHS insomnia 90 days #90 tabs 06/08/24 [Rx Confirmed 07/20/24] acetaminophen 500 mg tablet 1,000 mg (2 x 500 mg) PO Q8H 30 days #180 tabs 07/08/24 [Rx Confirmed 07/20/24] acetaminophen 650 mg tablet,extended release (Arthritis Pain Reliever) 1,300 mg PO HS pain 07/08/24 [History Confirmed 07/20/24] alprazolam 0.25 mg tablet 0.25 mg PO DAILY PRN anxiety 07/08/24 [History Confirmed 07/20/24] aspirin 81 mg tablet,delayed release 81 mg PO BID 35 days #70 tabs 07/08/24 [Rx Confirmed 07/20/24] aspirin 81 mg tablet,delayed release 81 mg PO DAILY 07/08/24 [History Confirmed 07/20/24] cefadroxil 500 mg capsule 500 mg PO Q12H 7 days #14 tabs 07/08/24 [Rx Confirmed 07/20/24] cholecalciferol (vitamin D3) 10 mcg (400 unit) capsule (Vitamin D3) 800 unit PO DAILY 07/08/24 [History Confirmed 07/20/24] diphenhydramine HCl 25 mg tablet (Allergy (diphenhydramine)) 25 mg PO QAM runny nose 07/08/24 [History Confirmed 07/20/24] ondansetron HCl 4 mg tablet 4 mg PO Q8H PRN Nausea #9 tabs 07/08/24 [Rx Confirmed 07/20/24] oxycodone 5 mg tablet 5 mg PO Q4H PRN Pain 7 days #40 tabs 07/08/24 [Rx Confirmed 07/20/24] prednisone 10 mg tablet 10 mg PO daily 10 days #10 tabs 07/08/24 [Rx Confirmed 07/20/24] propylene glycol 0.6 % eye drops (Systane Balance) 1 drp Eye-Both DAILY PRN dry eye(s) 07/08/24 [History Confirmed 07/20/24] sennosides 8.6 mg-docusate sodium 50 mg tablet (Senokot-S) 2 tab PO daily 30 days #60 tabs 07/08/24 [Rx Confirmed 07/20/24] tramadol 50 mg tablet 50 mg PO q6h PRN Pain 7 days #28 tabs 07/08/24 [Rx Confirmed 07/20/24] vitamin E 450 mg PO DAILY 07/08/24 [History Confirmed 07/08/24] celecoxib 200 mg capsule See Rx Instructions .Route .COMPLEX #30 caps 07/16/24 [Rx Confirmed 07/19/24] Active Medications Acetaminophen (Acetaminophen 500 Mg Tablet) 1,000 mg PO Q8H ERNIE Stop: 07/20/25 21:59 Last Admin: 07/21/24 04:57 Dose: 1,000 mg Al Hydrox/Mg Hydrox/Simethicone (Mag Hydrox/Al Hydrox/Simeth 30 Ml Udc) 30 ml PO Q4H PRN PRN Reason: Indigestion Stop: 07/20/25 17:05 Alprazolam (Alprazolam 0.25 Mg Tablet) 0.25 mg PO DAILY PRN PRN Reason: anxiety Stop: 01/16/25 17:12 Aspirin (Aspirin 81 Mg Tablet.Dr) 81 mg PO BID [facility] Stop: 07/20/25 20:59 Last Admin: 07/21/24 08:23 Dose: 81 mg Atorvastatin Calcium (Atorvastatin 10 Mg Tablet) 10 mg PO QHS [facility] Stop: 07/20/25 21:59 Last Admin: 07/20/24 21:25 Dose: 10 mg Bisacodyl (Bisacodyl 10 Mg Supp.Rect) 10 mg MA DAILY PRN PRN Reason: Constipation Stop: 07/20/25 17:05 Cefadroxil (Cefadroxil 500 Mg Capsule) 500 mg PO BID [facility] Stop: 07/26/24 21:01 Last Admin: 07/21/24 08:23 Dose: 500 mg Diphenhydramine HCl (Diphenhydramine 25 Mg Capsule) 25 mg PO QAM [facility] Stop: 07/21/25 08:59 Last Admin: 07/21/24 08:23 Dose: 25 mg Docusate Sodium (Docusate 100 Mg Capsule) 100 mg PO BID PRN PRN Reason: Constipation Stop: 07/20/25 17:05 Docusate Sodium (Docusate Enema 283 Mg/5 Ml Enema) 283 mg MA DAILY PRN PRN Reason: Constipation Stop: 07/20/25 17:05 Ezetimibe (Ezetimibe 10 Mg Tablet) 10 mg PO HS [facility] Stop: 07/20/25 21:59 Last Admin: 07/20/24 21:25 Dose: 10 mg Lactulose (Lactulose 20 Gm/30 Ml Udc) 30 gm PO DAILY PRN PRN Reason: Constipation Stop: 07/20/25 17:05 Losartan Potassium (Losartan 25 Mg Tablet) 25 mg PO QAM [facility] Stop: 07/21/25 08:59 Last Admin: 07/21/24 08:23 Dose: 25 mg Metoprolol Succinate (Metoprolol Succinate 25 Mg Tab.Er.24h) 25 mg PO QPM [facility] Stop: 07/20/25 20:59 Last Admin: 07/20/24 21:25 Dose: 25 mg Ondansetron HCl (Ondansetron Odt 4 Mg Tab.Rapdis) 4 mg PO Q8H PRN PRN Reason: PRN Stop: 07/20/25 17:44 Oxycodone HCl (Oxycodone Ir 5 Mg Tablet) 5 mg PO Q4H PRN PRN Reason: Pain Scale 7 - 10 Last Admin: 07/21/24 06:56 Dose: 5 mg Pantoprazole Sodium (Pantoprazole 40 Mg Tablet.Dr) 40 mg PO DAILY [facility] Stop: 07/21/25 08:59 Last Admin: 07/21/24 08:23 Dose: 40 mg Prednisone (Prednisone 10 Mg Tablet) 10 mg PO DAILY [facility] Stop: 07/21/25 08:59 Last Admin: 07/21/24 08:23 Dose: 10 mg Senna/Docusate Sodium (Sennosides/Docusate 8.6-50mg 1 Tab Tablet) 2 tab PO DAILY [facility] Stop: 07/21/25 08:59 Last Admin: 07/21/24 08:24 Dose: 1 tab Sennosides (Sennosides 8.6 Mg Tablet) 17.2 mg PO DAILY@12 PRN PRN Reason: If no BM in 2 days Stop: 07/21/25 11:59 Sodium Chloride (Sodium Chloride 0.9 % 10 Ml Syringe) 0 ml IV-PUSH PRN PRN PRN Reason: Flush Stop: 07/20/25 17:05 Temazepam (Temazepam 7.5 Mg Capsule) 7.5 mg PO QHS [facility] Stop: 01/16/25 21:59 Last Admin: 07/20/24 21:25 Dose: 7.5 mg Tramadol HCl (Tramadol 50 Mg Tablet) 50 mg PO Q6H PRN PRN Reason: Pain Scale 4 - 6 Stop: 01/16/25 17:14 Last Admin: 07/20/24 21:24 Dose: 50 mg Vitamin D (Cholecalciferol 10 Mcg (400 Units) Tablet) 20 mcg PO DAILY [facility] Stop: 07/21/25 08:59 Last Admin: 07/21/24 08:23 Dose: 20 mcg Exam Physical Exam Vital Signs: Temp Pulse Resp BP Pulse Ox O2 Del Method 97.6 F 61 18 138/72 97 Room Air 07/21/24 04:54 07/21/24 04:54 07/21/24 04:54 07/21/24 04:54 07/21/24 04:54 07/21/24 07:30 Narrative: General: Awake, alert, oriented x3 HENT: Normal to inspection, normocephalic, atraumatic Eyes: PERRL, normal conjunctiva and sclera Neck: Normal ROM, normal visual inspection. Trachea midline. Cardio: Regular heart rate and rhythm Respiratory: Clear to auscultation bilaterally. Normal respiratory effort. No respiratory distress. GI: Abdomen soft, nontender, nondistended, active bowel sounds x4 quadrants Neuro: CN II-XII intact. Strength 5/5, equal bilaterally Extremities: Left hip incision, wound VAC dressing intact. Large hematoma to the lateral/posterior thigh. Tender to palpation. Psych: Mood and affect appropriate. Normal speech. Results - Phys. Rehab Labs Labs: Laboratory Results - last 24 hr 07/21/24 04:50 Corrected WBC 8.1 Uncorrected WBC Count 8.1 RBC 3.63 Hgb 11.8 Hct 34.5 MCV 95.0 MCH 32.5 MCHC 34.2 RDW 12.7 Plt Count 262 MPV 8.5 Neut % (Auto) 75.6 Lymph % (Auto) 10.1 Whitman % (Auto) 12.0 Eos % (Auto) 1.8 Baso % (Auto) 0.5 Nucleat RBC Rel Count 0.0 Neut # (Auto) 6.1 Lymph # (Auto) 0.8 L Whitman # (Auto) 1.0 H Eos # (Auto) 0.1 Baso # (Auto) 0.0 PHA Creatinine Clear 46.58 Sodium 137 Potassium 4.6 Chloride 105 Carbon Dioxide 25.2 Anion Gap 11.4 BUN 16 Creatinine 0.75 Est GFR (CKD-EPI) > 60.0 Glucose 102 H Calcium 8.8 Total Bilirubin 0.6 AST 126 H ALT 105 H Alkaline Phosphatase 135 H Total Protein 5.7 L Albumin 3.3 L Globulin 2.4 Albumin/Globulin Ratio 1.4 Additional Results Results Comment: I reviewed clinical lab tests, radiology reports and obtained and summated medical records and have ordered follow up lab tests and imaging studies as needed for rehabilitation care. Functional Status Prior Level of Function Narrative: Independent at baseline, uses cane or walker for ambulation. Drives. Current Level of Function Narrative: Ambulatory short distances with a walker and contact-guard assist. CGA with transfers. Individualized Plan of Care Individualized Plan of Care Plan of Care: Individualized Overall Plan of Care: Admit Date/Time: July 20, 2024 Expected LOS: 14 days Expected Discharge Destination: Home Rehabilitation [facility]: 53 Primary Diagnosis: left JOSE Patient?s/Family?s anticipated outcomes/personal goals: To have patient [...] 24 hour daily monitoring and intervention from Mattress Specialist as well as other consulting physicians including internal medicine as well as 24 hour daily downstream biomanufacturing technician nursing - for medical safe / optimal [...] problem oriented plan of care Assessment/Plan (1) Postoperative hematoma: (2) Insomnia: (3) Impaired mobility and activities of daily living: (4) S/P total left hip arthroplasty: (5) Obesity: Qualifiers: Body mass index: BMI 33.0-33.9 Obesity classification: adult class 1 (BMI 30 - 34.9) Obesity type: due to excess calories Serious obesity comorbidity presence: with serious comorbidity Qualified Code(s): E66.09 - Other obesity due to excess calories; Z68.33 - Body mass index [BMI] 33.0-33.9, adult Plan 83-year-old female with past medical history as above who presents to acute inpatient rehabilitation unit with functional impairments in the setting of elective left total hip arthroplasty. * WBAT to the left lower extremity as per orthopedics recommendations. * Continue aspirin 81 mg twice daily for DVT prophylaxis. Monitor left thigh hematoma for enlargement. Monitor blood counts. If hematoma resolves, may consider starting on Lovenox. * UA obtained, does not appear grossly infected. Follow urine culture. * Aad Ambien at bedtime for insomnia as per home routine. Patient education Pressure ulcer prophylaxis; encourage mobilization, frequent postural changes, pressure-relief techniques DVT prophylaxis Encourage deep breathing exercise incentive spirometry. Monitor [...] equipment to enhance the patient's a functional sabianist Ensure adequate nutrition and hydration Sleep Discharge planning. I spent 36 minutes for services, including [id number] encounter with the patient, discussion of the case, plan of care, and exam; and [id number] activities, such as reviewing pertinent engagement quality consultant documentation, recent therapy notes, laboratory and radiology studies, and discussion of case with care team including physician, nursing, case briefer, and therapists. More than 50 % of time was spent on patient/family counseling or coordination of care. I completed a substantive portion of this encounter, the medical decision making portion of this note in its entirety, including Allied health note review, nursing note review, engagement quality consultant note review, discussion with nursing and case management, and more than 50% of my time was spent on counseling and coordination of care, time spent 50 minutes Patient was personally seen by me, Dr. Laird, on the day of encounter, within 24 hours of rehab admission, reviewed the history and the relevant portions of the chart, including current orders, allied health and engagement quality consultant notes, labs/imaging and performed timmons elements of exam and I formulated the plan of care and facilitated the medical decision making. Documented By: Heidi Mesa APRN 07/21/24 1 121 Signed By: <Electronically signed by CHASITY Mesa> 07/21/24 1136 <Electronically signed by Dilip Laird MD> 07/22/24 1100 [facility] Work Phone: 1([phone]) 124-636701-23-2025 [place] [address] Physiatry(Rehab) Progress Note Signed Patient: Ashley Brown MR#: [id number] : 1940 Acct:[id number] Age/Sex: 83 / F Adm Date: 5 Loc: Room: 0S0637-1 Type: ADM IN Attending Dr: Dilip Laird MD Copies to: ~ Date of Service: 07/22/2024 Subjective Subjective Narrative: Ms. Brown is a 83 year old female with past medical history of essential hypertension, obesity, osteoarthritis, paroxysmal A-fib, CAD, s/p CABG who is known to us from a previous rehab admission backin August 2023 after an electiveright knee, now presenting with functional impairments s/p elective left total hip arthroplasty. She failed reasonable conservative treatment strategies and underwent the above procedure by Dr. Pichardo on 07/19/2024. Operative procedure as well as her hospital stay were uncomplicated. She is to weight-bear as tolerated to the lower extremity. Was started on twice daily aspirin for DVT prophylaxis. Interval History: Improved sleep with home ambien. Requesting d/c opioids. Working with therapy,pain and weakness somewhat limiting. Noted elevated LFTs. Similar issue postop in August. Review of Systems Review of Systems All other systems reviewed & are negative unless noted below or in HPI Exam Physical Exam Vital Signs: Temp Pulse Resp BP Pulse Ox O2 Del Method 98.1 F 69 20 125/79 99 Room Air 07/22/24 05:10 07/22/24 05:10 07/22/24 05:10 07/22/24 05:10 07/22/24 05:10 07/22/24 05:10 Narrative: General: Awake, alert, oriented x3 HENT: Normal to inspection, normocephalic, atraumatic Eyes: PERRL, normal conjunctiva and sclera Neck: Normal ROM, normal visual inspection. Trachea midline. Cardio: Regular heart rate and rhythm Respiratory: Clear to auscultation bilaterally. Normal respiratory effort. No respiratory distress. GI: Abdomen soft, nontender, nondistended, active bowel sounds x4 quadrants Neuro: CN II-XII intact. Strength 5/5, equal bilaterally Extremities: Left hip incision, wound VAC dressing intact. Large hematoma to the lateral/posterior thigh. Tender to palpation. Psych: Mood and affect appropriate. Normal speech. Objective Labs 07/21/24 04:50 07/22/24 04:41 Labs: Laboratory Results - last 24 hr 07/21/24 07/22/24 04:50 04:41 PHA Creatinine Clear 36.53 Sodium 135 L Potassium 4.4 Chloride 103 Carbon Dioxide 25.8 Anion Gap 10.6 BUN 17 Creatinine 1.02 Est GFR (CKD-EPI) 55.269 Glucose 87 Calcium 8.9 Total Bilirubin 0.5 AST 145 H ALT 146 H Alkaline Phosphatase 169 H Total Protein 6.2 L Albumin 3.3 L Globulin 2.9 Albumin/Globulin Ratio 1.1 Prealbumin 14.4 L Medications and Allergies Allergies and Active Meds: Allergies oxycodone (Percocet) Allergy (Unknown, Verified 07/19/24 09:05) Vomiting sulfamethoxazole (Bactrim) Allergy (Unknown, Verified 07/19/24 09:05) Unknown Reaction trimethoprim (Bactrim) Allergy (Unknown, Verified 07/19/24 09:05) Unknown Reaction hydrocodone (From Vicodin) Allergy (Verified 07/19/24 09:05) Vomiting Rocuronium [place] Allergy (Unknown, Uncoded 08/20/23 14:19) breathing difficulty Active Medications Generic Name Dose Route Start Last Admin Trade Name Freq PRN Reason Stop Dose Admin Acetaminophen 1,000 mg 07/20/24 22:00 07/21/24 04:57 Acetaminophen 500 Mg Tablet PO 07/20/25 21:59 1,000 mg Q8H ERNIE Administration Al Hydrox/Mg Hydrox/Simethicone 30 ml 07/20/24 17:06 Mag Hydrox/Al Hydrox/Simeth 30 Ml Udc PO 07/20/25 17:05 Q4H PRN Indigestion Alprazolam 0.25 mg 07/20/24 17:13 Alprazolam 0.25 Mg Tablet PO 01/16/25 17:12 DAILY PRN anxiety Aspirin 81 mg 07/20/24 21:00 07/21/24 22:01 Aspirin 81 Mg Tablet.Dr PO 07/20/25 20:59 81 mg BID ERNIE Administration Atorvastatin Calcium 10 mg 07/20/24 22:00 07/20/24 21:25 Atorvastatin 10 Mg Tablet PO 07/20/25 21:59 10 mg QHS ERNIE Administration Bisacodyl 10 mg 07/20/24 17:06 Bisacodyl 10 Mg Supp.Rect MA 07/20/25 17:05 DAILY PRN Constipation Cefadroxil 500 mg 07/20/24 21:00 07/21/24 22:01 Cefadroxil 500 Mg Capsule PO 07/26/24 21:01 500 mg BID ERNIE Administration Diphenhydramine HCl 25 mg 07/21/24 09:00 07/21/24 08:23 Diphenhydramine 25 Mg Capsule PO 07/21/25 08:59 25 mg QAM ERNIE Administration Docusate Sodium 100 mg 07/20/24 17:06 Docusate 100 Mg Capsule PO 07/20/25 17:05 BID PRN Constipation Docusate Sodium 283 mg 07/20/24 17:06 Docusate Enema 283 Mg/5 Ml Enema MA 07/20/25 17:05 DAILY PRN Constipation Ezetimibe 10 mg 07/20/24 22:00 07/21/24 22:01 Ezetimibe 10 Mg Tablet PO 07/20/25 21:59 10 mg HS ERNIE Administration Lactulose 30 gm 07/20/24 17:06 Lactulose 20 Gm/30 Ml Udc PO 07/20/25 17:05 DAILY PRN Constipation Losartan Potassium 25 mg 07/21/24 09:00 07/21/24 08:23 Losartan 25 Mg Tablet PO 07/21/25 08:59 25 mg QAM ERNIE Administration Metoprolol Succinate 25 mg 07/20/24 21:00 07/21/24 22:01 Metoprolol Succinate 25 Mg Tab.Er.24h PO 07/20/25 20:59 25 mg QPM ERNIE Administration Ondansetron HCl 4 mg 07/20/24 17:45 Ondansetron Odt 4 Mg Tab.Rapdis PO 07/20/25 17:44 Q8H PRN PRN Oxycodone HCl 5 mg 07/20/24 17:14 07/21/24 22:01 Oxycodone Ir 5 Mg Tablet PO 5 mg Q4H PRN Administration Pain Scale 7 - 10 Pantoprazole Sodium 40 mg 07/21/24 09:00 07/21/24 08:23 Pantoprazole 40 Mg Tablet.Dr PO 07/21/25 08:59 40 mg DAILY ERNIE Administration Prednisone 10 mg 07/21/24 09:00 07/21/24 08:23 Prednisone 10 Mg Tablet PO 07/21/25 08:59 10 mg DAILY ERNIE Administration Senna/Docusate Sodium 2 tab 07/21/24 09:00 07/21/24 08:24 Sennosides/Docusate 8.6-50mg 1 Tab Tablet PO 07/21/25 08:59 1 tab DAILY ERNIE Administration Sennosides 17.2 mg 07/21/24 12:00 Sennosides 8.6 Mg Tablet PO 07/21/25 11:59 DAILY@12 PRN If no BM in 2 days Sodium Chloride 0 ml 07/20/24 17:06 Sodium Chloride 0.9 % 10 Ml Syringe IV-PUSH 07/20/25 17:05 PRN PRN Flush Tramadol HCl 50 mg 07/20/24 17:15 07/20/24 21:24 Tramadol 50 Mg Tablet PO 01/16/25 17:14 50 mg Q6H PRN Administration Pain Scale 4 - 6 Vitamin D 20 mcg 07/21/24 09:00 07/21/24 08:23 Cholecalciferol 10 Mcg (400 Units) Tablet PO 07/21/25 08:59 20 mcg DAILY ERNIE Administration Zolpidem Tartrate 10 mg 07/21/24 11:48 07/21/24 22:01 Zolpidem 10 Mg Tablet PO 01/17/25 11:47 10 mg QHS PRN Administration Sleep Assessment/Plan Assessment/Plan (1) Postoperative hematoma: (2) Insomnia: (3) Impaired mobility and activities of daily living: (4) S/P total left hip arthroplasty: (5) Obesity: Qualifiers: Body mass index: BMI 33.0-33.9 Obesity classification: adult class 1 (BMI 30 - 34.9) Obesity type: due to excess calories Serious obesity comorbidity presence: with serious comorbidity Qualified Code(s): E66.09 - Other obesity due to excess calories; Z68.33 - Body mass index [BMI] 33.0-33.9, adult Plan 83-year-old female with past medical history as above who presents to acute inpatient rehabilitation unit with functional impairments in the setting of elective left total hip arthroplasty. * Refusing lovenox. continue aspirin twice daily and monitor closely for DVT s/s. * dc opioids * schedule ambien * trend lfts. Resolved with holding statin postop in August. Would like to resume tylenol given off opioid. Patient education Pressure ulcer prophylaxis; encourage mobilization, frequent postural changes, pressure-relief techniques DVT prophylaxis Encourage deep breathing exercise incentive spirometry. Monitor [...] equipment to enhance the patient's a functional sabianist Ensure adequate nutrition and hydration Sleep Discharge planning. I spent 26 minutes for services, including [id number] encounter with the patient, discussion of the case, plan of care, and exam; and [id number] activities, such as reviewing pertinent engagement quality consultant documentation, recent therapy notes, laboratory and radiology studies, and discussion of case with care team including physician, nursing, case briefer, and therapists. More than 50 % of time was spent on patient/family counseling or coordination of care. Documented By: Dilip Laird MD 07/22/24 0818 Signed By: 07/22/24 1102 [facility]01-23-2025 [place] [address] Physiatry (Rehab) H&P Signed Patient: Ashley Brown MR#: [id number] : 1940 Acct:[id number] Age/Sex: 83 / F Adm Date: 5 Loc: Room: [address] [place] [address] Type: ADM IN Attending Dr: Dilip Laird MD Copies to: DO Heidi Wheat, CHASITY Laird MD~ Date of Service: 07/21/2024 HPI The patient was seen and examined on: 07/21/24 History of Present Illness: Ms. Brown is a 83 year old female with past medical history of essential hypertension, obesity, osteoarthritis, paroxysmal A-fib, CAD, s/p CABG who is known to us from a previous rehab admission backin August 2023 after an electiveright knee, now presenting with functional impairments s/p elective left total hip arthroplasty. She failed reasonable conservative treatment strategies and underwent the above procedure by Dr. Pichardo on 07/19/2024. Operative procedure as well as her hospital stay were uncomplicated. She is to weight-bear as tolerated to the lower extremity. Was started on twice daily aspirin for DVT prophylaxis. At this time patient is not at her functional baseline. Typically she is independent with ADLs and IADLs, uses a walker/cane for ambulation, drives. On admission she reports anticipated left hip discomfort, although manageable. Left hip incision iscovered with wound VAC dressing. There is a large hematomato the lateral thigh, tender to palpation. Will monitor. Otherwise, patient offers no complaints of shortness of breath, chest pain, palpitations. Her vitals are WNL.She is tolerating therapy so far. She is requesting Ambien to be added for insomnia as per home regimen. [facility] Medical History Impaired mobility and activities of daily living COVID Screening mammography declined Elevated cholesterol Primary insomnia Other osteoporosis without current pathological fracture Obesity (BMI 30-39.9) Myalgia due to statin Gastroesophageal reflux disease with esophagitis without hemorrhage Acute recurrent maxillary sinusitis Arthritis Primary osteoarthritis of both knees Vaginitis and vulvovaginitis Primary hypertension Paroxysmal atrial fibrillation patient denies any hx of afib Menopause Generalized anxiety disorder Essential hypertension Carotid stenosis, left US: B/L plaque < 50% - 08/2021 Atopic dermatitis, unspecified Surgical History S/P total left hip arthroplasty History of bilateral knee arthroplasty History of tubal ligation Hx laparoscopic cholecystectomy H/O esophagogastroduodenoscopy History of bunionectomy of left great toe History of breast biopsy History of D&C History of ear, nose, and throat (ENT) surgery 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, left History of phacoemulsification of cataract of both eyes with intraocular lens implantation History of stent insertion of renal artery (~2011) History of section History of heart bypass surgery 2019 in [place] History of cardiac catheterization prior to open heart surgery Family History Family/Other Legacy FamHx Relation: Migrated Family History; Legacy FamHx Problem: Problem Title : Mother (biol.) Family History of Mother , Problem Description : Mother (biol.) Family History of Mother , Problem Status : Active Father CHF (congestive heart failure) Mother Lung cancer Brother Liver cancer Bladder cancer Social History Smoking Status: Never smoker Substance Use Type: None Substance Abuse Comment: 1 drink a week Review of Systems Review of Systems All other systems reviewed & are negative unless noted below or in HPI Meds Medications and Allergies Allergies oxycodone (Percocet) Allergy (Unknown, Verified 07/19/24 09:05) Vomiting sulfamethoxazole (Bactrim) Allergy (Unknown, Verified 07/19/24 09:05) Unknown Reaction trimethoprim (Bactrim) Allergy (Unknown, Verified 07/19/24 09:05) Unknown Reaction hydrocodone (From Vicodin) Allergy (Verified 07/19/24 09:05) Vomiting Rocuronium [place] Allergy (Unknown, Uncoded 08/20/23 14:19) breathing difficulty Home and Active Meds: Home Medications atorvastatin 20 mg tablet 10 mg PO QHS 08/20/23 [History Confirmed 07/20/24] metoprolol succinate 25 mg tablet,extended release 24 hr 25 mg PO QPM 30 days #30 tabs 09/15/23 [RxConfirmed 07/20/24] omeprazole 20 mg capsule,delayed release 20 mg PO DAILY 09/19/23 [History Confirmed 07/20/24] ezetimibe 10 mg tablet (Zetia) 10 mg PO HS 11/19/23 [History Confirmed 07/20/24] losartan 25 mg tablet 25 mg PO QAM 11/19/23 [History Confirmed 07/20/24] zolpidem 10 mg tablet 10 mg PO QHS insomnia 90 days #90 tabs 06/08/24 [Rx Confirmed 07/20/24] acetaminophen 500 mg tablet 1,000 mg (2 x 500 mg) PO Q8H 30 days #180 tabs 07/08/24 [Rx Confirmed 07/20/24] acetaminophen 650 mg tablet,extended release (Arthritis Pain Reliever) 1,300 mg PO HS pain 07/08/24[History Confirmed 07/20/24] alprazolam 0.25 mg tablet 0.25 mg PO DAILY PRN anxiety 07/08/24 [History Confirmed 07/20/24] aspirin 81 mg tablet,delayed release 81 mg PO BID 35 days #70 tabs 07/08/24 [Rx Confirmed 07/20/24] aspirin 81 mg tablet,delayed release 81 mg PO DAILY 07/08/24 [History Confirmed 07/20/24] cefadroxil 500 mg capsule 500 mg PO Q12H 7 days #14 tabs 07/08/24 [Rx Confirmed 07/20/24] cholecalciferol (vitamin D3) 10 mcg (400 unit) capsule (Vitamin D3) 800 unit PO DAILY 07/08/24 [History Confirmed 07/20/24] diphenhydramine HCl 25 mg tablet (Allergy (diphenhydramine)) 25 mg PO QAM runny nose 07/08/24 [History Confirmed 07/20/24] ondansetron HCl 4 mg tablet 4 mg PO Q8H PRN Nausea #9 tabs 07/08/24 [Rx Confirmed 07/20/24] oxycodone 5 mg tablet 5 mg PO Q4H PRN Pain 7 days #40 tabs 07/08/24 [Rx Confirmed 07/20/24] prednisone 10 mg tablet 10 mg PO daily 10 days #10 tabs 07/08/24 [Rx Confirmed 07/20/24] propylene glycol 0.6 % eye drops (Systane Balance) 1 drp Eye-Both DAILY PRN dry eye(s) 07/08/24 [History Confirmed 07/20/24] sennosides 8.6 mg-docusate sodium 50 mg tablet (Senokot-S) 2 tab PO daily 30 days #60 tabs 07/08/24[Rx Confirmed 07/20/24] tramadol 50 mg tablet 50 mg PO q6h PRN Pain 7 days #28 tabs 07/08/24 [Rx Confirmed 07/20/24] vitamin E 450 mg PO DAILY 07/08/24 [History Confirmed 07/08/24] celecoxib 200 mg capsule See Rx Instructions .Route .COMPLEX #30 caps 07/16/24 [Rx Confirmed 07/19/24] Active Medications Acetaminophen (Acetaminophen 500 Mg Tablet) 1,000 mg PO Q8H [facility] Stop: 07/20/25 21:59 Last Admin: 07/21/24 04:57 Dose: 1,000 mg Al Hydrox/Mg Hydrox/Simethicone (Mag Hydrox/Al Hydrox/Simeth 30 Ml Udc) 30 ml PO Q4H PRN PRN Reason: Indigestion Stop: 07/20/25 17:05 Alprazolam (Alprazolam 0.25 Mg Tablet) 0.25 mg PO DAILY PRN PRN Reason: anxiety Stop: 01/16/25 17:12 Aspirin (Aspirin 81 Mg Tablet.Dr) 81 mg PO BID [facility] Stop: 07/20/25 20:59 Last Admin: 07/21/24 08:23 Dose: 81 mg Atorvastatin Calcium (Atorvastatin 10 Mg Tablet) 10 mg PO QHS [facility] Stop: 07/20/25 21:59 Last Admin: 07/20/24 21:25 Dose: 10 mg Bisacodyl (Bisacodyl 10 Mg Supp.Rect) 10 mg MA DAILY PRN PRN Reason: Constipation Stop: 07/20/25 17:05 Cefadroxil (Cefadroxil 500 Mg Capsule) 500 mg PO BID [facility] Stop: 07/26/24 21:01 Last Admin: 07/21/24 08:23 Dose: 500 mg Diphenhydramine HCl (Diphenhydramine 25 Mg Capsule) 25 mg PO QAM [facility] Stop: 07/21/25 08:59 Last Admin: 07/21/24 08:23 Dose: 25 mg Docusate Sodium (Docusate 100 Mg Capsule) 100 mg PO BID PRN PRN Reason: Constipation Stop: 07/20/25 17:05 Docusate Sodium (Docusate Enema 283 Mg/5 Ml Enema) 283 mg MA DAILY PRN PRN Reason: Constipation Stop: 07/20/25 17:05 Ezetimibe (Ezetimibe 10 Mg Tablet) 10 mg PO HS [facility] Stop: 07/20/25 21:59 Last Admin: 07/20/24 21:25 Dose: 10 mg Lactulose (Lactulose 20 Gm/30 Ml Udc) 30 gm PO DAILY PRN PRN Reason: Constipation Stop: 07/20/25 17:05 Losartan Potassium (Losartan 25 Mg Tablet) 25 mg PO QAM [facility] Stop: 07/21/25 08:59 Last Admin: 07/21/24 08:23 Dose: 25 mg Metoprolol Succinate (Metoprolol Succinate 25 Mg Tab.Er.24h) 25 mg PO QPM [facility] Stop: 07/20/25 20:59 Last Admin: 07/20/24 21:25 Dose: 25 mg Ondansetron HCl (Ondansetron Odt 4 Mg Tab.Rapdis) 4 mg PO Q8H PRN PRN Reason: PRN Stop: 07/20/25 17:44 Oxycodone HCl (Oxycodone Ir 5 Mg Tablet) 5 mg PO Q4H PRN PRN Reason: Pain Scale 7 - 10 Last Admin: 07/21/24 06:56 Dose: 5 mg Pantoprazole Sodium (Pantoprazole 40 Mg Tablet.Dr) 40 mg PO DAILY [facility] Stop: 07/21/25 08:59 Last Admin: 07/21/24 08:23 Dose: 40 mg Prednisone (Prednisone 10 Mg Tablet) 10 mg PO DAILY [facility] Stop: 07/21/25 08:59 Last Admin: 07/21/24 08:23 Dose: 10 mg Senna/Docusate Sodium (Sennosides/Docusate 8.6-50mg 1 Tab Tablet) 2 tab PO DAILY [facility] Stop: 07/21/25 08:59 Last Admin: 07/21/24 08:24 Dose: 1 tab Sennosides (Sennosides 8.6 Mg Tablet) 17.2 mg PO DAILY@12 PRN PRN Reason: If no BM in 2 days Stop: 07/21/25 11:59 Sodium Chloride (Sodium Chloride 0.9 % 10 Ml Syringe) 0 ml IV-PUSH PRN PRN PRN Reason: Flush Stop: 07/20/25 17:05 Temazepam (Temazepam 7.5 Mg Capsule) 7.5 mg PO QHS [facility] Stop: 01/16/25 21:59 Last Admin: 07/20/24 21:25 Dose: 7.5 mg Tramadol HCl (Tramadol 50 Mg Tablet) 50 mg PO Q6H PRN PRN Reason: Pain Scale 4 - 6 Stop: 01/16/25 17:14 Last Admin: 07/20/24 21:24 Dose: 50 mg Vitamin D (Cholecalciferol 10 Mcg (400 Units) Tablet) 20 mcg PO DAILY [facility] Stop: 07/21/25 08:59 Last Admin: 07/21/24 08:23 Dose: 20 mcg Exam Physical Exam Vital Signs: Temp Pulse Resp BP Pulse Ox O2 Del Method 97.6 F 61 18 138/72 97 Room Air 07/21/24 04:54 07/21/24 04:54 07/21/24 04:54 07/21/24 04:54 07/21/24 04:54 07/21/24 07:30 Narrative: General: Awake, alert, oriented x3 HENT: Normal to inspection, normocephalic, atraumatic Eyes: PERRL, normal conjunctiva and sclera Neck: Normal ROM, normal visual inspection. Trachea midline. Cardio: Regular heart rate and rhythm Respiratory: Clear to auscultation bilaterally. Normal respiratory effort. No respiratory distress. GI: Abdomen soft, nontender, nondistended, active bowel sounds x4 quadrants Neuro: CN II-XII intact. Strength 5/5, equal bilaterally Extremities: Left hip incision, wound VAC dressing intact. Large hematoma to the lateral/posterior thigh. Tender to palpation. Psych: Mood and affect appropriate. Normal speech. Results - Phys. Rehab Labs Labs: Laboratory Results - last 24 hr 07/21/24 04:50 Corrected WBC 8.1 Uncorrected WBC Count 8.1 RBC 3.63 Hgb 11.8 Hct 34.5 MCV 95.0 MCH 32.5 MCHC 34.2 RDW 12.7 Plt Count 262 MPV 8.5 Neut % (Auto) 75.6 Lymph % (Auto) 10.1 Whitman % (Auto) 12.0 Eos % (Auto) 1.8 Baso % (Auto) 0.5 Nucleat RBC Rel Count 0.0 Neut # (Auto) 6.1 Lymph # (Auto) 0.8 L Whitman # (Auto) 1.0 H Eos # (Auto) 0.1 Baso # (Auto) 0.0 PHA Creatinine Clear 46.58 Sodium 137 Potassium 4.6 Chloride 105 Carbon Dioxide 25.2 Anion Gap 11.4 BUN 16 Creatinine 0.75 Est GFR (CKD-EPI) > 60.0 Glucose 102 H Calcium 8.8 Total Bilirubin 0.6 AST 126 H ALT 105 H Alkaline Phosphatase 135 H Total Protein 5.7 L Albumin 3.3 L Globulin 2.4 Albumin/Globulin Ratio 1.4 Additional Results Results Comment: I reviewed clinical lab tests, radiology reports and obtained and summated medical records and haveordered follow up lab tests and imaging studies as needed for rehabilitation care. Functional Status Prior Level of Function Narrative: Independent at baseline, uses cane or walker for ambulation. Drives. Current Level of Function Narrative: Ambulatory short distances with a walker and contact-guard assist. CGA with transfers. Individualized Plan of Care Individualized Plan of Care Plan of Care: Individualized Overall Plan of Care: Admit Date/Time: July 20, 2024 Expected LOS: 14 days Expected Discharge Destination: Home Rehabilitation IGC: 51 Primary Diagnosis: left JOSE Patient?s/Family?s anticipated outcomes/personal goals: To have patient [...] improve pt's strength, endurance, bed mobility, transfers (sit- stand), standing balance, gait quality on level surfaces [...] 24 hour daily monitoring and intervention from Mattress Specialist as well as other consulting physicians including internal medicine as well as 24 hour daily downstream biomanufacturing technician nursing - for medical safe / optimal manageme nt. Patient requires interdisciplinary therapy team rehabilitation care including OT, PT, SW, RehabNursing, requires and can tolerate at least 3 hoursof daily OT and PT therapy at least 5 days weekly. The following medical conditions significantly impact the rehabilitation process and are being addressed daily and can not be managed at home or in a lesser intense medical setting: Refer to above problem oriented plan of care Assessment/Plan (1) Postoperative hematoma: (2) Insomnia: (3) Impaired mobility and activities of daily living: (4) S/P total left hip arthroplasty: (5) Obesity: Qualifiers: Body mass index: BMI 33.0-33.9 Obesity classification: adult class 1 (BMI 30 - 34.9) Obesity type: due to excess calories Serious obesity comorbidity presence: with serious comorbidity Qualified Code(s): E66.09 - Other obesity due to excess calories; Z68.33 - Body mass index [BMI] 33.0-33.9, adult Plan 83-year-old female with past medical history as above who presents to acute inpatient rehabilitation unit with functional impairments in the setting of elective left total hip arthroplasty. * WBAT to the left lower extremity as per orthopedics recommendations. * Continue aspirin 81 mg twice daily for DVT prophylaxis. Monitor left thigh hematoma for enlargement. Monitor blood counts. If hematoma resolves, may consider starting on Lovenox. * UA obtained, does not appear grossly infected. Follow urine culture. * Aad Ambien at bedtime for insomnia as per home routine. Patient education Pressure ulcer prophylaxis; encourage mobilization, frequent postural changes, pressure-relief techniques DVT prophylaxis Encourage deep breathing exercise incentive spirometry. Monitor [...] equipment to enhance the patient's a functional sabianist Ensure adequate nutrition and hydration Sleep Discharge planning. I spent 36 minutes for services, including [id number] encounter with the patient, discussion of the case, plan of care, and exam; and [id number] activities, such as reviewing pertinent engagement quality consultant documentation, recent therapy notes, laboratory and radiology studies, and discussion of case with care team including physician, nursing, case briefer, and therapists. More than 50 % of time was spent on patient/family counseling or coordination of care. I completed a substantive portion of this encounter, the medical decision making portion of this note in its entirety, including Allied health note review, nursing note review, engagement quality consultant note review, discussion with nursing and case management, and more than 50% of my time was spent on counseling and coordination of care, time spent 50 minutes Patient was personally seen by me, Dr. Laird, on the day of encounter, within 24 hours of rehab admission, reviewed the history and the relevant portions of the chart, including current orders, allied health and engagement quality consultant notes, labs/imaging and performed timmons elements of exam and I formulated the plan of care and facilitated the medical decision making. Documented By: Heidi Mesa APRN 07/21/24 1 121 Signed By: 07/21/24 1136 07/22/24 1100 [facility]01-22-2025 Consult note Author Carol Holland [facility] Note Date/Time July 21, 2024 3 :15pm [facility] [address] [place] [address] Hospitalist Consult Note Signed Patient: Ashley Brown MR#: [id number] : 1940 Acct:[id number] Age/Sex: 83 / F Adm Date: 5 Loc: Room: [address] [place] [address] Type: ADM IN Attending Dr: Dilip Laird MD Copies to: DO Dilip Wheat MD Kristopher L Lindbloom, DO Linda Obika, CHASITY~ HPI DATE OF CONSULTATION: 07/21/24 REQUESTING PROVIDER: Dilip Laird Consult Narrative Reason for Consult: Hypertension HPI: Ms. Brown is a 82 year old female with PMH of of paroxysmal A-fib, GERD, arthritis, hypertension, hyperlipidemia, CAD, CABG who underwent left total hip arthroplasty secondary to left primary hip osteoarthritis by Dr. Pichardo on 07/19/2024 after failing outpatient nonoperative measures. Procedure was done without complications. Postop, she was seen and evaluated by physical therapy and Occupational Therapy and recommended acute inpatient rehabilitation. The hospitalist team has been consulted for medical management of hypertension and other comorbidities. Patient seen and examined resting comfortably in bed and reporting doing well with physical therapy. Pain level is well-controlled. Denies chest pain or palpitation. No cough, dyspnea, or pain with inspiration. No abdominal pain or indigestion, constipation or diarrhea, nausea or vomiting. No dysuria or retention. No headache or dizziness. No fevers. Review of Systems Review of Systems Review of systems: 10 point review of systems obtained, negative unless noted in the HPI below [facility] Source: Old Records Reviewed Medical History Impaired mobility and activities of daily living COVID Screening mammography declined Elevated cholesterol Primary insomnia Other osteoporosis without current pathological fracture Obesity (BMI 30-39.9) Myalgia due to statin Gastroesophageal reflux disease with esophagitis without hemorrhage Acute recurrent maxillary sinusitis Arthritis Primary osteoarthritis of both knees Vaginitis and vulvovaginitis Primary hypertension Paroxysmal atrial fibrillation patient denies any hx of afib Menopause Generalized anxiety disorder Essential hypertension Carotid stenosis, left US: B/L plaque < 50% - 08/2021 Atopic dermatitis, unspecified Surgical History S/P total left hip arthroplasty History of bilateral knee arthroplasty History of tubal ligation Hx laparoscopic cholecystectomy H/O esophagogastroduodenoscopy History of bunionectomy of left great toe History of breast biopsy History of D&C History of ear, nose, and throat (ENT) surgery 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, left History of phacoemulsification of cataract of both eyes with intraocular lens implantation History of stent insertion of renal artery (~2011) History of section History of heart bypass surgery 2019 in [place] History of cardiac catheterization prior to open heart surgery Family History Family/Other Legacy FamHx Relation: Migrated Family History; Legacy FamHx Problem: Problem Title : Mother (biol.) Family History of Mother , Problem Description : Mother (biol.) Family History of Mother , Problem Status : Active Father CHF (congestive heart failure) Mother Lung cancer Brother Liver cancer Bladder cancer Social History Smoking Status: Never smoker Substance Use Type: None Substance Abuse Comment: 1 drink a week Meds Medications and Allergies Allergies oxycodone (Percocet) Allergy (Unknown, Verified 07/19/24 09:05) Vomiting sulfamethoxazole (Bactrim) Allergy (Unknown, Verified 07/19/24 09:05) Unknown Reaction trimethoprim (Bactrim) Allergy (Unknown, Verified 07/19/24 09:05) Unknown Reaction hydrocodone (From Vicodin) Allergy (Verified 07/19/24 09:05) Vomiting Rocuronium [place] Allergy (Unknown, Uncoded 08/20/23 14:19) breathing difficulty Home Medications atorvastatin 20 mg tablet 10 mg PO QHS 08/20/23 [History Confirmed 07/20/24] metoprolol succinate 25 mg tablet,extended release 24 hr 25 mg PO QPM 30 days #30 tabs 09/15/23 [Rx Confirmed 07/20/24] omeprazole 20 mg capsule,delayed release 20 mg PO DAILY 09/19/23 [History Confirmed 07/20/24] ezetimibe 10 mg tablet (Zetia) 10 mg PO HS 11/19/23 [History Confirmed 07/20/24] losartan 25 mg tablet 25 mg PO QAM 11/19/23 [History Confirmed 07/20/24] zolpidem 10 mg tablet 10 mg PO QHS insomnia 90 days #90 tabs 06/08/24 [Rx Confirmed 07/20/24] acetaminophen 500 mg tablet 1,000 mg (2 x 500 mg) PO Q8H 30 days #180 tabs 07/08/24 [Rx Confirmed 07/20/24] acetaminophen 650 mg tablet,extended release (Arthritis Pain Reliever) 1,300 mg PO HS pain 07/08/24 [History Confirmed 07/20/24] alprazolam 0.25 mg tablet 0.25 mg PO DAILY PRN anxiety 07/08/24 [History Confirmed 07/20/24] aspirin 81 mg tablet,delayed release 81 mg PO BID 35 days #70 tabs 07/08/24 [Rx Confirmed 07/20/24] aspirin 81 mg tablet,delayed release 81 mg PO DAILY 07/08/24 [History Confirmed 07/20/24] cefadroxil 500 mg capsule 500 mg PO Q12H 7 days #14 tabs 07/08/24 [Rx Confirmed 07/20/24] cholecalciferol (vitamin D3) 10 mcg (400 unit) capsule (Vitamin D3) 800 unit PO DAILY 07/08/24 [History Confirmed 07/20/24] diphenhydramine HCl 25 mg tablet (Allergy (diphenhydramine)) 25 mg PO QAM runny nose 07/08/24 [History Confirmed 07/20/24] ondansetron HCl 4 mg tablet 4 mg PO Q8H PRN Nausea #9 tabs 07/08/24 [Rx Confirmed 07/20/24] oxycodone 5 mg tablet 5 mg PO Q4H PRN Pain 7 days #40 tabs 07/08/24 [Rx Confirmed 07/20/24] prednisone 10 mg tablet 10 mg PO daily 10 days #10 tabs 07/08/24 [Rx Confirmed 07/20/24] propylene glycol 0.6 % eye drops (Systane Balance) 1 drp Eye-Both DAILY PRN dry eye(s) 07/08/24 [History Confirmed 07/20/24] sennosides 8.6 mg-docusate sodium 50 mg tablet (Senokot-S) 2 tab PO daily 30 days #60 tabs 07/08/24 [Rx Confirmed 07/20/24] tramadol 50 mg tablet 50 mg PO q6h PRN Pain 7 days #28 tabs 07/08/24 [Rx Confirmed 07/20/24] vitamin E 450 mg PO DAILY 07/08/24 [History Confirmed 07/08/24] celecoxib 200 mg capsule See Rx Instructions .Route .COMPLEX #30 caps 07/16/24 [Rx Confirmed 07/19/24] Active Medications: Active Medications Generic Name Dose Route Start Last Admin Trade Name Freq PRN Reason Stop Dose Admin Acetaminophen 1,000 mg 07/20/24 22:00 07/21/24 04:57 Acetaminophen 500 Mg Tablet PO 07/20/25 21:59 1,000 mg Q8H ERNIE Administration Al Hydrox/Mg Hydrox/Simethicone 30 ml 07/20/24 17:06 Mag Hydrox/Al Hydrox/Simeth 30 Ml Udc PO 07/20/25 17:05 Q4H PRN Indigestion Alprazolam 0.25 mg 07/20/24 17:13 Alprazolam 0.25 Mg Tablet PO 01/16/25 17:12 DAILY PRN anxiety Aspirin 81 mg 07/20/24 21:00 07/21/24 08:23 Aspirin 81 Mg Tablet.Dr PO 07/20/25 20:59 81 mg BID ERNIE Administration Atorvastatin Calcium 10 mg 07/20/24 22:00 07/20/24 21:25 Atorvastatin 10 Mg Tablet PO 07/20/25 21:59 10 mg QHS ERNIE Administration Bisacodyl 10 mg 07/20/24 17:06 Bisacodyl 10 Mg Supp.Rect MA 07/20/25 17:05 DAILY PRN Constipation Cefadroxil 500 mg 07/20/24 21:00 07/21/24 08:23 Cefadroxil 500 Mg Capsule PO 07/26/24 21:01 500 mg BID ERNIE Administration Diphenhydramine HCl 25 mg 07/21/24 09:00 07/21/24 08:23 Diphenhydramine 25 Mg Capsule PO 07/21/25 08:59 25 mg QAM ERNIE Administration Docusate Sodium 100 mg 07/20/24 17:06 Docusate 100 Mg Capsule PO 07/20/25 17:05 BID PRN Constipation Docusate Sodium 283 mg 07/20/24 17:06 Docusate Enema 283 Mg/5 Ml Enema MA 07/20/25 17:05 DAILY PRN Constipation Ezetimibe 10 mg 07/20/24 22:00 07/20/24 21:25 Ezetimibe 10 Mg Tablet PO 07/20/25 21:59 10 mg HS ERNIE Administration Lactulose 30 gm 07/20/24 17:06 Lactulose 20 Gm/30 Ml Udc PO 07/20/25 17:05 DAILY PRN Constipation Losartan Potassium 25 mg 07/21/24 09:00 07/21/24 08:23 Losartan 25 Mg Tablet PO 07/21/25 08:59 25 mg QAM ERNIE Administration Metoprolol Succinate 25 mg 07/20/24 21:00 07/20/24 21:25 Metoprolol Succinate 25 Mg Tab.Er.24h PO 07/20/25 20:59 25 mg QPM ERNIE Administration Ondansetron HCl 4 mg 07/20/24 17:45 Ondansetron Odt 4 Mg Tab.Rapdis PO 07/20/25 17:44 Q8H PRN PRN Oxycodone HCl 5 mg 07/20/24 17:14 07/21/24 06:56 Oxycodone Ir 5 Mg Tablet PO 5 mg Q4H PRN Administration Pain Scale 7 - 10 Pantoprazole Sodium 40 mg 07/21/24 09:00 07/21/24 08:23 Pantoprazole 40 Mg Tablet.Dr PO 07/21/25 08:59 40 mg DAILY ERNIE Administration Prednisone 10 mg 07/21/24 09:00 07/21/24 08:23 Prednisone 10 Mg Tablet PO 07/21/25 08:59 10 mg DAILY ERNIE Administration Senna/Docusate Sodium 2 tab 07/21/24 09:00 07/21/24 08:24 Sennosides/Docusate 8.6-50mg 1 Tab Tablet PO 07/21/25 08:59 1 tab DAILY ERNIE Administration Sennosides 17.2 mg 07/21/24 12:00 Sennosides 8.6 Mg Tablet PO 07/21/25 11:59 DAILY@12 PRN If no BM in 2 days Sodium Chloride 0 ml 07/20/24 17:06 Sodium Chloride 0.9 % 10 Ml Syringe IV-PUSH 07/20/25 17:05 PRN PRN Flush Tramadol HCl 50 mg 07/20/24 17:15 07/20/24 21:24 Tramadol 50 Mg Tablet PO 01/16/25 17:14 50 mg Q6H PRN Administration Pain Scale 4 - 6 Vitamin D 20 mcg 07/21/24 09:00 07/21/24 08:23 Cholecalciferol 10 Mcg (400 Units) Tablet PO 07/21/25 08:59 20 mcg DAILY ERNIE Administration Zolpidem Tartrate 10 mg 07/21/24 11:48 Zolpidem 10 Mg Tablet PO 01/17/25 11:47 QHS PRN Sleep Exam Physical Exam Vital Signs: Temp Pulse Resp BP Pulse Ox O2 Del Method 97.6 F 61 18 138/72 97 Room Air 07/21/24 04:54 07/21/24 04:54 07/21/24 04:54 07/21/24 04:54 07/21/24 04:54 07/21/24 07:30 Narrative: CONST- Appears well -developed and well nourished No acute distress. HEAD - Normocephalic and atraumatic EENT?Sclera nonicteric and conjunctive are nonerythemic, moist oral mucosa, pharynx clear NECK?Supple, no cervical lymphadenopathy CARDIAC?normal rate, regular rhythm, normal S1 & S2. PULM?diminished without wheeze or rhonchi, RA, no accessory muscle use or cough noted ABD ? Soft. Bowel sounds are normal. No distention No tenderness EXTREM?left hip tenderness SKIN?surgical dressing intact to left hip MS- MAEX4 spontaneously with equal with equal strength NEURO? A&Ox3 speech clear and tongue midline, equal facial symmetry no focal motor deficits PSYCH?Mood, affect and behavior appropriate Results - Hospitalist Consult Lab Results Labs: Laboratory Results - last 72 hr 07/21/24 04:50: Corrected WBC 8.1, Uncorrected WBC Count 8.1, RBC 3.63, Hgb 11.8, Hct 34.5, MCV 95.0, MCH 32.5, MCHC 34.2, RDW 12.7, Plt Count 262, MPV 8.5,Neut % (Auto) 75.6, Lymph % (Auto) 10.1, Whitman % (Auto) 12.0, Eos % (Auto) 1.8, Baso % (Auto) 0.5, Nucleat RBC Rel Count 0.0, Neut # (Auto) 6.1, Lymph # (Auto) 0.8 L, Whitman # (Auto) 1.0 H, Eos # (Auto) 0.1, Baso # (Auto) 0.0, PHA Creatinine Clear 46.58, Sodium 137, Potassium 4.6, Chloride 105, Carbon Dioxide 25.2, AnionGap 11.4, BUN 16, Creatinine 0.75, Est GFR (CKD-EPI) > 60.0, Glucose 102 H, Calcium 8.8, Total Bilirubin 0.6, AST 126 H, ALT 105 H, Alkaline Phosphatase 135H, Total Protein 5.7 L, Albumin 3.3 L, Globulin 2.4, Albumin/Globulin Ratio 1.4,Prealbumin 14.4 L Assessment & Plan Assessment/Plan (1) S/P total left hip arthroplasty: (2) Primary hypertension: (3) Impaired mobility and activities of daily living: Plan Status post total left hip arthroplasty 07/19/2024 Impaired mobility and activities of daily living ?Plan of care for rehabilitation, PT/OT, DVT prophylaxis, bowel regimen per PM&Rteam. Any issues or concerns pertaining to the incision site to be deferred to the orthopedic team. ?Aspirin 81 mg twice daily x 35 days postop and 7 days of Duricef per orthopedicteam Elevated liver enzymes-records show that she had elevated liver enzymes after surgery in August which improved with just monitoring and holding atorvastatin and aspirin?denies abdominal pain * AST 126, ALT 105, will monitor and hold statin and aspirin Chronic conditions: 1. Hypertension, on metoprolol and losartan, BP well-controlled, continue 2. Hyperlipidemia?will hold off atorvastatin due to elevated liver enzymes 3. GERD?on pantoprazole Documented By: Carol Holland APRN 07/21/24 1335 Signed By: <Electronically signed by CHASITY Holland> 07/21/24 1350 <Electronically signed by Ron Guajardo DO> 07/21/24 1780 [facility] Work Phone: 1(587) 465-411701-22-2025 [place] [address] Hospitalist Consult Note Signed Patient: Ashley Brown MR#: [id number] : 1940 Acct:[id number] Age/Sex: 83 / F Adm Date: 5 Loc: Room: [address] [place] [address] Type: ADM IN Attending Dr: Dilip Laird MD Copies to: DO Dilip Wheat MD Kristopher L Lindbloom, DO Linda Obika, APRN~ HPI DATE OF CONSULTATION: 07/21/24 REQUESTING PROVIDER: Dilip Laird Consult Narrative Reason for Consult: Hypertension HPI: Ms. Brown is a 82 year old female with PMH of of paroxysmal A-fib, GERD, arthritis, hypertension, hyperlipidemia, CAD, CABG who underwent left total hip arthroplasty secondary to left primary hip osteoarthritis by Dr. Pichardo on 07/19/2024 after failing outpatient nonoperative measures. Procedure was done without complications. Postop, she was seen and evaluated by physical therapy and Occupational Therapy and recommended acute inpatient rehabilitation. The hospitalist team has been consulted for medical management of hypertension and other comorbidities. Patient seen and examined resting comfortably in bed and reporting doing well with physical therapy. Pain level is well-controlled. Denie s chest pain or palpitation. No cough, dyspnea, or pain with inspiration. No abdominal pain or indigestion, constipation or diarrhea, nausea or vomiting. No dysuria or retention. No headache or dizziness. No fevers. Review of Systems Review of Systems Review of systems: 10 point review of systems obtained, negative unless noted in the HPI below PMFSH Source: Old Records Reviewed Medical History Impaired mobility and activities of daily living COVID Screening mammography declined Elevated cholesterol Primary insomnia Other osteoporosis without current pathological fracture Obesity (BMI 30-39.9) Myalgia due to statin Gastroesophageal reflux disease with esophagitis without hemorrhage Acute recurrent maxillary sinusitis Arthritis Primary osteoarthritis of both knees Vaginitis and vulvovaginitis Primary hypertension Paroxysmal atrial fibrillation patient denies any hx of afib Menopause Generalized anxiety disorder Essential hypertension Carotid stenosis, left US: B/L plaque < 50% - 08/2021 Atopic dermatitis, unspecified Surgical History S/P total left hip arthroplasty History of bilateral knee arthroplasty History of tubal ligation Hx laparoscopic cholecystectomy H/O esophagogastroduodenoscopy History of bunionectomy of left great toe History of breast biopsy History of D&C History of ear, nose, and throat (ENT) surgery 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, left History of phacoemulsification of cataract of both eyes with intraocular lens implantation History of stent insertion of renal artery (~2011) History of section History of heart bypass surgery 2019 in [place] History of cardiac catheterization prior to open heart surgery Family History Family/Other Legacy FamHx Relation: Migrated Family History; Legacy FamHx Problem: Problem Title : Mother (biol.) Family History of Mother , Problem Description : Mother (biol.) Family History of Mother , Problem Status : Active Father CHF (congestive heart failure) Mother Lung cancer Brother Liver cancer Bladder cancer Social History Smoking Status: Never smoker Substance Use Type: None Substance Abuse Comment: 1 drink a week Meds Medications and Allergies Allergies oxycodone (Percocet) Allergy (Unknown, Verified 07/19/24 09:05) Vomiting sulfamethoxazole (Bactrim) Allergy (Unknown, Verified 07/19/24 09:05) Unknown Reaction trimethoprim (Bactrim) Allergy (Unknown, Verified 07/19/24 09:05) Unknown Reaction hydrocodone (From Vicodin) Allergy (Verified 07/19/24 09:05) Vomiting Rocuronium [place] Allergy (Unknown, Uncoded 08/20/23 14:19) breathing difficulty Home Medications atorvastatin 20 mg tablet 10 mg PO QHS 08/20/23 [History Confirmed 07/20/24] metoprolol succinate 25 mg tablet,extended release 24 hr 25 mg PO QPM 30 days #30 tabs 09/15/23 [RxConfirmed 07/20/24] omeprazole 20 mg capsule,delayed release 20 mg PO DAILY 09/19/23 [History Confirmed 07/20/24] ezetimibe 10 mg tablet (Zetia) 10 mg PO HS 11/19/23 [History Confirmed 07/20/24] losartan 25 mg tablet 25 mg PO QAM 11/19/23 [History Confirmed 07/20/24] zolpidem 10 mg tablet 10 mg PO QHS insomnia 90 days #90 tabs 06/08/24 [Rx Confirmed 07/20/24] acetaminophen 500 mg tablet 1,000 mg (2 x 500 mg) PO Q8H 30 days #180 tabs 07/08/24 [Rx Confirmed 07/20/24] acetaminophen 650 mg tablet,extended release (Arthritis Pain Reliever) 1,300 mg PO HS pain 07/08/24[History Confirmed 07/20/24] alprazolam 0.25 mg tablet 0.25 mg PO DAILY PRN anxiety 07/08/24 [History Confirmed 07/20/24] aspirin 81 mg tablet,delayed release 81 mg PO BID 35 days #70 tabs 07/08/24 [Rx Confirmed 07/20/24] aspirin 81 mg tablet,delayed release 81 mg PO DAILY 07/08/24 [History Confirmed 07/20/24] cefadroxil 500 mg capsule 500 mg PO Q12H 7 days #14 tabs 07/08/24 [Rx Confirmed 07/20/24] cholecalciferol (vitamin D3) 10 mcg (400 unit) capsule (Vitamin D3) 800 unit PO DAILY 07/08/24 [History Confirmed 07/20/24] diphenhydramine HCl 25 mg tablet (Allergy (diphenhydramine)) 25 mg PO QAM runny nose 07/08/24 [History Confirmed 07/20/24] ondansetron HCl 4 mg tablet 4 mg PO Q8H PRN Nausea #9 tabs 07/08/24 [Rx Confirmed 07/20/24] oxycodone 5 mg tablet 5 mg PO Q4H PRN Pain 7 days #40 tabs 07/08/24 [Rx Confirmed 07/20/24] prednisone 10 mg tablet 10 mg PO daily 10 days #10 tabs 07/08/24 [Rx Confirmed 07/20/24] propylene glycol 0.6 % eye drops (Systane Balance) 1 drp Eye-Both DAILY PRN dry eye(s) 07/08/24 [History Confirmed 07/20/24] sennosides 8.6 mg-docusate sodium 50 mg tablet (Senokot-S) 2 tab PO daily 30 days #60 tabs 07/08/24[Rx Confirmed 07/20/24] tramadol 50 mg tablet 50 mg PO q6h PRN Pain 7 days #28 tabs 07/08/24 [Rx Confirmed 07/20/24] vitamin E 450 mg PO DAILY 07/08/24 [History Confirmed 07/08/24] celecoxib 200 mg capsule See Rx Instructions .Route .COMPLEX #30 caps 07/16/24 [Rx Confirmed 07/19/24] Active Medications: Active Medications Generic Name Dose Route Start Last Admin Trade Name Freq PRN Reason Stop Dose Admin Acetaminophen 1,000 mg 07/20/24 22:00 07/21/24 04:57 Acetaminophen 500 Mg Tablet PO 07/20/25 21:59 1,000 mg Q8H ERNIE Administration Al Hydrox/Mg Hydrox/Simethicone 30 ml 07/20/24 17:06 Mag Hydrox/Al Hydrox/Simeth 30 Ml Udc PO 07/20/25 17:05 Q4H PRN Indigestion Alprazolam 0.25 mg 07/20/24 17:13 Alprazolam 0.25 Mg Tablet PO 01/16/25 17:12 DAILY PRN anxiety Aspirin 81 mg 07/20/24 21:00 07/21/24 08:23 Aspirin 81 Mg Tablet.Dr PO 07/20/25 20:59 81 mg BID ERNIE Administration Atorvastatin Calcium 10 mg 07/20/24 22:00 07/20/24 21:25 Atorvastatin 10 Mg Tablet PO 07/20/25 21:59 10 mg QHS ERNIE Administration Bisacodyl 10 mg 07/20/24 17:06 Bisacodyl 10 Mg Supp.Rect MA 07/20/25 17:05 DAILY PRN Constipation Cefadroxil 500 mg 07/20/24 21:00 07/21/24 08:23 Cefadroxil 500 Mg Capsule PO 07/26/24 21:01 500 mg BID ERNIE Administration Diphenhydramine HCl 25 mg 07/21/24 09:00 07/21/24 08:23 Diphenhydramine 25 Mg Capsule PO 07/21/25 08:59 25 mg QAM ERNIE Administration Docusate Sodium 100 mg 07/20/24 17:06 Docusate 100 Mg Capsule PO 07/20/25 17:05 BID PRN Constipation Docusate Sodium 283 mg 07/20/24 17:06 Docusate Enema 283 Mg/5 Ml Enema MA 07/20/25 17:05 DAILY PRN Constipation Ezetimibe 10 mg 07/20/24 22:00 07/20/24 21:25 Ezetimibe 10 Mg Tablet PO 07/20/25 21:59 10 mg HS ERNIE Administration Lactulose 30 gm 07/20/24 17:06 Lactulose 20 Gm/30 Ml Udc PO 07/20/25 17:05 DAILY PRN Constipation Losartan Potassium 25 mg 07/21/24 09:00 07/21/24 08:23 Losartan 25 Mg Tablet PO 07/21/25 08:59 25 mg QAM ERNIE Administration Metoprolol Succinate 25 mg 07/20/24 21:00 07/20/24 21:25 Metoprolol Succinate 25 Mg Tab.Er.24h PO 07/20/25 20:59 25 mg QPM ERNIE Administration Ondansetron HCl 4 mg 07/20/24 17:45 Ondansetron Odt 4 Mg Tab.Rapdis PO 07/20/25 17:44 Q8H PRN PRN Oxycodone HCl 5 mg 07/20/24 17:14 07/21/24 06:56 Oxycodone Ir 5 Mg Tablet PO 5 mg Q4H PRN Administration Pain Scale 7 - 10 Pantoprazole Sodium 40 mg 07/21/24 09:00 07/21/24 08:23 Pantoprazole 40 Mg Tablet.Dr PO 07/21/25 08:59 40 mg DAILY ERNIE Administration Prednisone 10 mg 07/21/24 09:00 07/21/24 08:23 Prednisone 10 Mg Tablet PO 07/21/25 08:59 10 mg DAILY ERNIE Administration Senna/Docusate Sodium 2 tab 07/21/24 09:00 07/21/24 08:24 Sennosides/Docusate 8.6-50mg 1 Tab Tablet PO 07/21/25 08:59 1 tab DAILY ERNIE Administration Sennosides 17.2 mg 07/21/24 12:00 Sennosides 8.6 Mg Tablet PO 07/21/25 11:59 DAILY@12 PRN If no BM in 2 days Sodium Chloride 0 ml 07/20/24 17:06 Sodium Chloride 0.9 % 10 Ml Syringe IV-PUSH 07/20/25 17:05 PRN PRN Flush Tramadol HCl 50 mg 07/20/24 17:15 07/20/24 21:24 Tramadol 50 Mg Tablet PO 01/16/25 17:14 50 mg Q6H PRN Administration Pain Scale 4 - 6 Vitamin D 20 mcg 07/21/24 09:00 07/21/24 08:23 Cholecalciferol 10 Mcg (400 Units) Tablet PO 07/21/25 08:59 20 mcg DAILY ERNIE Administration Zolpidem Tartrate 10 mg 07/21/24 11:48 Zolpidem 10 Mg Tablet PO 01/17/25 11:47 QHS PRN Sleep Exam Physical Exam Vital Signs: Temp Pulse Resp BP Pulse Ox O2 Del Method 97.6 F 61 18 138/72 97 Room Air 07/21/24 04:54 07/21/24 04:54 07/21/24 04:54 07/21/24 04:54 07/21/24 04:54 07/21/24 07:30 Narrative: CONST- Appears well -developed and well nourished No acute distress. HEAD - Normocephalic and atraumatic EENT?Sclera nonicteric and conjunctive are nonerythemic, moist oral mucosa, pharynx clear NECK?Supple, no cervical lymphadenopathy CARDIAC?normal rate, regular rhythm, normal S1 & S2. PULM?diminished without wheeze or rhonchi, RA, no accessory muscle use or cough noted ABD ? Soft. Bowel sounds are normal. No distention No tenderness EXTREM?left hip tenderness SKIN?surgical dressing intact to left hip MS- MAEX4 spontaneously with equal with equal strength NEURO? A&Ox3 speech clear and tongue midline, equal facial symmetry no focal motor deficits PSYCH?Mood, affect and behavior appropriate Results - Hospitalist Consult Lab Results Labs: Laboratory Results - last 72 hr 07/21/24 04:50: Corrected WBC 8.1, Uncorrected WBC Count 8.1, RBC 3.63, Hgb 11.8, Hct 34.5, MCV 95.0, MCH 32.5, MCHC 34.2, RDW 12.7, Plt Count 262, MPV 8.5,Neut % (Auto) 75.6, Lymph % (Auto) 10.1, Whitman % (Auto) 12.0, Eos % (Auto) 1.8, Baso % (Auto) 0.5, Nucleat RBC Rel Count 0.0, Neut # (Auto) 6.1,Lymph # (Auto) 0.8 L, Whitman # (Auto) 1.0 H, Eos # (Auto) 0.1, Baso # (Auto) 0.0, PHA Creatinine Clear 46.58, Sodium 137, Potassium 4.6, Chloride 105, Carbon Dioxide 25.2, AnionGap 11.4, BUN 16, Creatinine 0.75, Est GFR (CKD-EPI) > 60.0, Glucose 102 H, Calcium 8.8, Total Bilirubin 0.6, AST 126 H, ALT 105 H, Alkaline Phosphatase 135H, Total Protein 5.7 L, Albumin 3.3 L, Globulin 2.4, Albumin/Globulin Ratio 1.4,Prealbumin 14.4 L Assessment & Plan Assessment/Plan (1) S/P total left hip arthroplasty: (2) Primary hypertension: (3) Impaired mobility and activities of daily living: Plan Status post total left hip arthroplasty 07/19/2024 Impaired mobility and activities of daily living ?Plan of care for rehabilitation, PT/OT, DVT prophylaxis, bowel regimen per PM&Rteam. Any issues or concerns pertaining to the incision site to be deferred to the orthopedic team. ?Aspirin 81 mg twice daily x 35 days postop and 7 days of Duricef per orthopedicteam Elevated liver enzymes-records show that she had elevated liver enzymes after surgery in August which improved with just monitoring and holding atorvastatin and aspirin?denies abdominal pain * AST 126, ALT 105, will monitor and hold statin and aspirin Chronic conditions: 1. Hypertension, on metoprolol and losartan, BP well-controlled, continue 2. Hyperlipidemia?will hold off atorvastatin due to elevated liver enzymes 3. GERD?on pantoprazole Documented By: Carol Holland, BSW 07/21/24 1335 Signed By: 07/21/24 1350 07/21/24 1515 [facility]01-21-2025 Progress note Author Magno Pichardo [facility] Note Date/Time July 20, 2024 1 2:57pm [facility] [address] [place] [address] Orthopedic Progress Note Signed Patient: Ashley Brown MR#: [id number] : 1940 Acct:[id number] Age/Sex: 83 / F Adm Date: 5 Loc: 4N Room: [address] [place] [address] Type: REG [facility] Attending Dr: Magno Pichardo II, MD Copies to: ~ Date of Service: 07/20/2024 Subjective Subjective Interval History: Patient resting comfortably in bed this morning. Reports some discomfort into the hip Nursing reports no acute events overnight. Denies chest pain, shortness of breath, or calf pain. Exam Physical Exam Vital Signs: Temp Pulse Resp BP Pulse Ox O2 Del Method O2 Flow Rate 97.7 F 68 18 158/78 H 99 Room Air 8 07/20/24 12:00 07/20/24 12:00 07/20/24 12:07/20/24 12:07/20/24 12:07/20/24 12:00 07/19/24 12:10 Narrative: Left hip Prevena dressing is on and working. No drainage in the container. Foot is warm and well-perfused. Sensation intact to light touch throughout the foot. Wiggles their toes and moves their ankle up and down. Nontender to palpation in the calf. Objective Labs Labs: Laboratory Results - last 24 hr 07/20/24 07/20/24 06:29 10:06 Corrected WBC 7.0 Uncorrected WBC Count 7.0 RBC 3.67 Hgb 12.0 Hct 35.1 MCV 95.7 MCH 32.6 MCHC 34.1 RDW 12.8 Plt Count 254 MPV 8.8 Neut % (Auto) 79.1 Lymph % (Auto) 8.7 Whitman % (Auto) 9.4 Eos % (Auto) 1.9 Baso % (Auto) 0.9 Nucleat RBC Rel Count 0.0 Neut # (Auto) 5.5 Lymph # (Auto) 0.6 L Whitman # (Auto) 0.7 Eos # (Auto) 0.1 Baso # (Auto) 0.1 PHA Creatinine Clear 46.67 Sodium 134 L Potassium 4.0 Chloride 104 Carbon Dioxide 24.0 Anion Gap 10.0 BUN 14 Creatinine 0.76 Est GFR (CKD-EPI) > 60.0 Glucose 107 H POC Glucose 113 Calcium 8.9 [facility] INPATIENT [facility] Ambulation: 1 Yes, Ambulation Day of Surgery or 4 hours from PACU discharge [facility] Discharge Exclusion: 1 Yes (Acute inpatient rehab) Assessment / Plan Assessment and plan (1) S/P total left hip arthroplasty: Code(s): Z96.642 - Presence of left artificial hip joint Plan POD 1 sp L JOSE 1. Pain control 2. DVT prophylaxis: ALVARO Hose bilaterally, SCDs bilaterally, and aspirin 81 mg twice daily x 35 days postop 3. Perioperative antibiotics with IV Ancef and then 7 days of Duricef 4. PT/OT: WBAT left lower extremity 5. Appreciate hospitalist assistance with medical management 6. PACU x-rays look good 7. Hemoglobin 12.0 this morning, continue iron and vitamin C 8. Today's Plan: Work with PT/OT 9. Disposition: pending PT/OT eval, but will be an excellent acute inpatient rehab candidate and can go as soon as she is cleared medically and from physicaltherapy Documented By: Magno Pichardo MD 07/20/24 12 56 Signed By: <Electronically signed by Magno Pichardo MD> 07/20/[address] [place] [address] Work Phone: 1(450) 541-244101-21-2025 [place] [id number] Orthopedic Progress Note Signed Patient: Ashley Brown MR#: [id number] : 1940 Acct:[id number] Age/Sex: 83 / F Adm Date: 5 Loc: 4N Room: [address] [place] [address] Type: REG [facility] Attending Dr: Magno Pichardo II, MD Copies to: ~ Date of Service: 07/20/2024 Subjective Subjective Interval History: Patient resting comfortably in bed this morning. Reports some discomfort into the hip Nursing reports no acute events overnight. Denies chest pain, shortness of breath, or calf pain. Exam Physical Exam Vital Signs: Temp Pulse Resp BP Pulse Ox O2 Del Method O2 Flow Rate 97.7 F 68 18 158/78 H 99 Room Air 8 07/20/24 12:00 07/20/24 12:07/20/24 12:00 07/20/24 12:00 07/20/24 12:07/20/24 12:07/19/24 12:10 Narrative: Left hip Prevena dressing is on and working. No drainage in the container. Foot is warm and well-perfused. Sensation intact to light touch throughout the foot. Wiggles their toes and moves their ankle up and down. Nontender to palpation in the calf. Objective Labs Labs: Laboratory Results - last 24 hr 07/20/24 07/20/24 06:29 10:06 Corrected WBC 7.0 Uncorrected WBC Count 7.0 RBC 3.67 Hgb 12.0 Hct 35.1 MCV 95.7 MCH 32.6 MCHC 34.1 RDW 12.8 Plt Count 254 MPV 8.8 Neut % (Auto) 79.1 Lymph % (Auto) 8.7 Whitman % (Auto) 9.4 Eos % (Auto) 1.9 Baso % (Auto) 0.9 Nucleat RBC Rel Count 0.0 Neut # (Auto) 5.5 Lymph # (Auto) 0.6 L Whitman # (Auto) 0.7 Eos # (Auto) 0.1 Baso # (Auto) 0.1 PHA Creatinine Clear 46.67 Sodium 134 L Potassium 4.0 Chloride 104 Carbon Dioxide 24.0 Anion Gap 10.0 BUN 14 Creatinine 0.76 Est GFR (CKD-EPI) > 60.0 Glucose 107 H POC Glucose 113 Calcium 8.9 [facility] INPATIENT [facility] Ambulation: 1 Yes, Ambulation Day of Surgery or 4 hours from PACU discharge [facility] Discharge Exclusion: 1 Yes (Acute inpatient rehab) Assessment / Plan Assessment and plan (1) S/P total left hip arthroplasty: Code(s): Z96.642 - Presence of left artificial hip joint Plan POD 1 sp L JOSE 1. Pain control 2. DVT prophylaxis: ALVARO Hose bilaterally, SCDs bilaterally, and aspirin 81 mg twice daily x 35 dayspostop 3. Perioperative antibiotics with IV Ancef and then 7 days of Duricef 4. PT/OT: WBAT left lower extremity 5. Appreciate hospitalist assistance with medical management 6. PACU x-rays look good 7. Hemoglobin 12.0 this morning, continue iron and vitamin C 8. Today's Plan: Work with PT/OT 9. Disposition: pending PT/OT eval, but will be an excellent acute inpatient rehab candidate and can go as soon as she is cleared medically and from physicaltherapy Documented By: Magno Pichardo MD 07/20/24 12 56 Signed By: 07/20/24 1257 [facility]01-20-2025 Consult note Author Carol Holland [facility] Note Date/Time July 19, 2024 6 :47pm [facility] [address] [place] [address] Hospitalist Consult Note Signed Patient: Ashley Brown MR#: [id number] : 1940 Acct:[id number] Age/Sex: 83 / F Adm Date: 5 Loc: 4N Room: [address] [place] [address] Type: [facility] Attending Dr: Magno Pichardo II, MD Copies to: DO Carol Wheat APRN Obaydah M Daromar, MD Robert M Carlisle, MD~ HPI DATE OF CONSULTATION: 07/19/24 REQUESTING PROVIDER: Magno Pichardo II Consult Narrative Reason for Consult: Hypertension, CAD HPI: Ms. Brown is a 82 year old female with PMH of of paroxysmal A-fib, GERD, arthritis, hypertension, hyperlipidemia, CAD, CABG who underwent left total hip arthroplasty secondary to left primary hip osteoarthritis by Dr. Pichardo after failing outpatient nonoperative measures. The hospitalist team has been consulted for medical management of hypertension and other comorbidities. Patient seen and examined postop, awake and alert reporting minimal pain. Denies chest pain or palpitation. No cough, dyspnea, or pain with inspiration. No abdominal pain or indigestion, constipation or diarrhea, nausea or vomiting. No dysuria or retention. No headache or dizziness. No fevers Review of Systems Review of Systems Review of systems: 10 point review of systems obtained, negative unless noted in the HPI PMFSH Source: Old Records Reviewed Medical History COVID Screening mammography declined Elevated cholesterol Impaired mobility and activities of daily living Primary insomnia Other osteoporosis without current pathological fracture Obesity (BMI 30-39.9) Myalgia due to statin Gastroesophageal reflux disease with esophagitis without hemorrhage Acute recurrent maxillary sinusitis Arthritis Primary osteoarthritis of both knees Vaginitis and vulvovaginitis Primary hypertension Paroxysmal atrial fibrillation patient denies any hx of afib Menopause Generalized anxiety disorder Essential hypertension Carotid stenosis, left US: B/L plaque < 50% - 08/2021 Atopic dermatitis, unspecified Surgical History History of bilateral knee arthroplasty History of tubal ligation Hx laparoscopic cholecystectomy H/O esophagogastroduodenoscopy History of bunionectomy of left great toe History of breast biopsy History of D&C History of ear, nose, and throat (ENT) surgery 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, left History of phacoemulsification of cataract of both eyes with intraocular lens implantation History of stent insertion of renal artery (~2011) History of section History of heart bypass surgery 2019 in [place] History of cardiac catheterization prior to open heart surgery Family History Family/Other Legacy FamHx Relation: Migrated Family History; Legacy FamHx Problem: Problem Title : Mother (biol.) Family History of Mother , Problem Description : Mother (biol.) Family History of Mother , Problem Status : Active Father CHF (congestive heart failure) Mother Lung cancer Brother Liver cancer Bladder cancer Social History Smoking Status: Never smoker Substance Use Type: None and Alcohol Substance Abuse Comment: 1 drink a week Meds Medications and Allergies Allergies oxycodone (Percocet) Allergy (Unknown, Verified 07/19/24 09:05) Vomiting sulfamethoxazole (Bactrim) Allergy (Unknown, Verified 07/19/24 09:05) Unknown Reaction trimethoprim (Bactrim) Allergy (Unknown, Verified 07/19/24 09:05) Unknown Reaction hydrocodone (From Vicodin) Allergy (Verified 07/19/24 09:05) Vomiting Rocuronium [place] Allergy (Unknown, Uncoded 08/20/23 14:19) breathing difficulty Home Medications atorvastatin 20 mg tablet 10 mg PO QHS 08/20/23 [History Confirmed 07/08/24] metoprolol succinate 25 mg tablet,extended release 24 hr 25 mg PO QPM 30 days #30 tabs 09/15/23 [Rx Confirmed 07/19/24] omeprazole 20 mg capsule,delayed release 20 mg PO DAILY 09/19/23 [History Confirmed 07/08/24] ezetimibe 10 mg tablet (Zetia) 10 mg PO HS 11/19/23 [History Confirmed 07/08/24] losartan 25 mg tablet 25 mg PO QAM 11/19/23 [History Confirmed 07/19/24] zolpidem 10 mg tablet 10 mg PO QHS insomnia 90 days #90 tabs 06/08/24 [Rx Confirmed 07/08/24] acetaminophen 500 mg tablet 1,000 mg (2 x 500 mg) PO Q8H 30 days #180 tabs 07/08/24 [Rx Confirmed 07/08/24] acetaminophen 650 mg tablet,extended release (Arthritis Pain Reliever) 1,300 mg PO HS pain 07/08/24 [History Confirmed 07/08/24] alprazolam 0.25 mg tablet 0.25 mg PO DAILY PRN anxiety 07/08/24 [History Confirmed 07/19/24] aspirin 81 mg tablet,delayed release 81 mg PO BID 35 days #70 tabs 07/08/24 [Rx Confirmed 07/08/24] aspirin 81 mg tablet,delayed release 81 mg PO DAILY 07/08/24 [History Confirmed 07/19/24] cefadroxil 500 mg capsule 500 mg PO Q12H 7 days #14 tabs 07/08/24 [Rx Confirmed 07/08/24] cholecalciferol (vitamin D3) 10 mcg (400 unit) capsule (Vitamin D3) 800 unit PO DAILY 07/08/24 [History Confirmed 07/08/24] diphenhydramine HCl 25 mg tablet (Allergy (diphenhydramine)) 25 mg PO QAM runny nose 07/08/24 [History Confirmed 07/08/24] ondansetron HCl 4 mg tablet 4 mg PO Q8H PRN Nausea #9 tabs 07/08/24 [Rx Confirmed 07/08/24] oxycodone 5 mg tablet 5 mg PO Q4H PRN Pain 7 days #40 tabs 07/08/24 [Rx Confirmed 07/08/24] prednisone 10 mg tablet 10 mg PO daily 10 days #10 tabs 07/08/24 [Rx Confirmed 07/08/24] propylene glycol 0.6 % eye drops (Systane Balance) 1 drp Eye-Both DAILY PRN dry eye(s) 07/08/24 [History Confirmed 07/08/24] sennosides 8.6 mg-docusate sodium 50 mg tablet (Senokot-S) 2 tab PO daily 30 days #60 tabs 07/08/24 [Rx Confirmed 07/08/24] tramadol 50 mg tablet 50 mg PO q6h PRN Pain 7 days #28 tabs 07/08/24 [Rx Confirmed 07/08/24] vitamin E 450 mg PO DAILY 07/08/24 [History Confirmed 07/08/24] celecoxib 200 mg capsule See Rx Instructions .Route .COMPLEX #30 caps 07/16/24 [Rx Confirmed 07/19/24] Active Medications: Active Medications Generic Name Dose Route Start Last Admin Trade Name Freq PRN Reason Stop Dose Admin Acetaminophen 1,000 mg 07/19/24 17:30 07/19/24 17:27 Acetaminophen 500 Mg Tablet PO 07/19/25 17:29 Not Given Q8H ERNIE Ascorbic Acid 500 mg 07/20/24 08:00 Ascorbic Acid 500 Mg Tablet PO 07/20/25 07:59 BID.WITH.MEALS ERNIE Aspirin 81 mg 07/19/24 21:00 Aspirin 81 Mg Tablet. PO 07/19/25 20:59 BID ERNIE Cefadroxil 500 mg 07/20/24 09:00 Cefadroxil 500 Mg Capsule PO 07/26/24 21:01 BID ERNIE Cefazolin Sodium 2 gm 07/19/24 18:00 Cefazolin 2 Gm/11 Ml Syringe IV-PUSH 07/20/24 02:01 Q8H ERNIE Diphenhydramine HCl 25 mg 07/19/24 17:12 Diphenhydramine 25 Mg Capsule PO 07/19/25 17:11 Q6H PRN Itching Ferrous Sulfate 324 mg 07/20/24 08:00 Ferrous Sulfate 324 Mg Tablet.Dr SALTER 07/20/25 07:59 BID.WITH.MEALS ERNIE Lactated Ringer's 1,000 mls @ 20 mls/hr 07/19/24 08:30 07/19/24 12:25 Lactated Ringers IV 07/20/24 08:29 20 mls/hr .Q24H ONE Infusion Lactated Ringer's 1,000 mls @ 75 mls/hr 07/19/24 17:30 07/19/24 17:30 Lactated Ringers IV 07/20/24 06:49 75 mls/hr .[id number] ERNIE Administration Mineral Oil 1 each 07/22/24 17:12 Mineral Oil ([place]) 1 Each Enema MA ONCE PRN Constipation Morphine Sulfate 15 mg 07/19/24 17:12 Morphine Sulfate 12hr Er 15 Mg Tablet.Er PO Q12H PRN Pain Naloxone HCl 0.4 mg 07/19/24 17:12 Naloxone Hcl 0.4 Mg/Ml Vial IV-PUSH 07/19/25 17:11 Q2M PRN Opioid Reversal Ondansetron HCl 8 mg 07/19/24 17:12 Ondansetron Odt 4 Mg Tab.Rapdis PO 07/19/25 17:11 TID PRN Nausea Oxycodone HCl 5 mg 07/19/24 17:12 Oxycodone Ir 5 Mg Tablet PO Q4HR PRN Pain Scale 6 - 10 Polyethylene Glycol 17 gm 07/20/24 09:00 Polyethylene Glycol 3350 17 Gm Powd.Pack PO 07/27/24 08:59 DAILY ERNIE Prednisone 10 mg 07/20/24 09:00 Prednisone 10 Mg Tablet PO 08/18/24 09:01 DAILY ERNIE Prochlorperazine Maleate 10 mg 07/19/24 17:12 Prochlorperazine Maleate 5 Mg Tablet PO 07/19/25 17:11 Q6H PRN Nausea Senna/Docusate Sodium 2 tab 07/20/24 09:00 Sennosides/Docusate 8.6-50mg 1 Tab Tablet PO 08/19/24 08:59 DAILY ERNIE Sodium Chloride 0 ml 07/19/24 08:29 Sodium Chloride 0.9 % 10 Ml Syringe IV-PUSH 07/19/25 08:28 PRN PRN Flush Sodium Chloride 0 ml 07/19/24 08:30 Sodium Chloride 0.9 % 10 Ml Syringe IV-PUSH 07/19/25 08:29 PRN PRN Flush Sodium Chloride 0 ml 07/19/24 22:00 Sodium Chloride 0.9 % 10 Ml Syringe IV-PUSH 07/19/25 21:59 QSHIFT ERNIE Temazepam 7.5 mg 07/19/24 17:12 Temazepam 7.5 Mg Capsule PO 01/15/25 17:11 QHS PRN Insomnia Tramadol HCl 50 mg 07/19/24 17:12 Tramadol 50 Mg Tablet PO 01/15/25 17:11 Q6H PRN Pain Scale 1 - 5 Exam Physical Exam Vital Signs: Temp Pulse Resp BP Pulse Ox O2 Del Method O2 Flow Rate 97.1 F L 77 20 157/70 H 100 Room Air 8 07/19/24 13:10 07/19/24 17:05 07/19/24 17:05 07/19/24 17:05 07/19/24 17:05 07/19/24 17:41 07/19/24 12:10 Narrative: CONST-alert, awake resting comfortably in bed HEAD - Normocephalic and atraumatic EENT-Sclera nonicteric and conjunctive are nonerythemic, moist oral mucosa, pharynx clear NECK-Supple, no cervical lymphadenopathy CARDIAC-normal rate, regular rhythm, normal S1 & S2. PULM-diminished without wheeze or rhonchi, RA, no accessory muscle use or cough noted ABD - Soft. Bowel sounds are normal. No distention No tenderness EXTREM left hip tenderness SKIN-surgical dressing intact MS- MAEX4 spontaneously with equal with equal strength NEURO- A&Ox3 speech clear and tongue midline, equal facial symmetry no focal motor deficits PSYCH-Mood, affect and behavior appropriate Assessment & Plan Assessment/Plan (1) Primary osteoarthritis of left hip: (2) GERD (gastroesophageal reflux disease): (3) Aftercare following right knee joint replacement surgery: Plan #Hypertension, uncontrolled, likely due to pain * Resume home metoprolol and add hydralazine as needed #Hyperlipidemia?resume atorvastatin #Status post total left total hip arthroplasty secondary to left primary osteoarthritis * Continue plan of care per orthopedic * Continue pain management as needed * On 81 mg twice daily per orthopedic for DVT prophylaxis * PT/OT to eval and treat Documented By: Carol Holland APRN 07/19/24 1810 Signed By: <Electronically signed by CHASITY Holland> 07/19/24 1835 <Electronically signed by Paula Ramirez MD> 07/19/24 1847 [facility] Work Phone: 1(667) 616-389901-20-2025 [place] [address] Hospitalist Consult Note Signed Patient: Ashley Brown MR#: [id number] : 1940 Acct:[id number] Age/Sex: 83 / F Adm Date: 5 Loc: 4N Room: 4H6788-0 Type: [facility] Attending Dr: Magno Pichardo II, MD Copies to: DO Carol Wheat APRN Obaydah M Daromar, MD Robert M Carlisle, MD~ HPI DATE OF CONSULTATION: 07/19/24 REQUESTING PROVIDER: Magno Pichardo II Consult Narrative Reason for Consult: Hypertension, CAD HPI: Ms. Brown is a 82 year old female with PMH of of paroxysmal A-fib, GERD, arthritis, hypertension, hyperlipidemia, CAD, CABG who underwent left total hip arthroplasty secondary to left primary hip osteoarthritis by Dr. Pichardo after failing outpatient nonoperative measures. The hospitalist team hasbeen consulted for medical management of hypertension and other comorbidities. Patient seen and examined postop, awake and alert reporting minimal pain. Denies chest pain or palpitation. No cough, dyspnea, or pain with inspiration. No abdominal pain or indigestion, constipation or diarrhea, nausea or vomiting. No dysuria or retention. No headache or dizziness. No fevers Review of Systems Review of Systems Review of systems: 10 point review of systems obtained, negative unless noted in the HPI PMFSH Source: Old Records Reviewed Medical History COVID Screening mammography declined Elevated cholesterol Impaired mobility and activities of daily living Primary insomnia Other osteoporosis without current pathological fracture Obesity (BMI 30-39.9) Myalgia due to statin Gastroesophageal reflux disease with esophagitis without hemorrhage Acute recurrent maxillary sinusitis Arthritis Primary osteoarthritis of both knees Vaginitis and vulvovaginitis Primary hypertension Paroxysmal atrial fibrillation patient denies any hx of afib Menopause Generalized anxiety disorder Essential hypertension Carotid stenosis, left US: B/L plaque < 50% - 08/2021 Atopic dermatitis, unspecified Surgical History History of bilateral knee arthroplasty History of tubal ligation Hx laparoscopic cholecystectomy H/O esophagogastroduodenoscopy History of bunionectomy of left great toe History of breast biopsy History of D&C History of ear, nose, and throat (ENT) surgery 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, left History of phacoemulsification of cataract of both eyes with intraocular lens implantation History of stent insertion of renal artery (~2011) History of section History of heart bypass surgery 2020 in [place] History of cardiac catheterization prior to open heart surgery Family History Family/Other Legacy FamHx Relation: Migrated Family History; Legacy FamHx Problem: Problem Title : Mother (biol.) Family History of Mother , Problem Description : Mother (biol.) Family History of Mother , Problem Status : Active Father CHF (congestive heart failure) Mother Lung cancer Brother Liver cancer Bladder cancer Social History Smoking Status: Never smoker Substance Use Type: None and Alcohol Substance Abuse Comment: 1 drink a week Meds Medications and Allergies Allergies oxycodone (Percocet) Allergy (Unknown, Verified 07/19/24 09:05) Vomiting sulfamethoxazole (Bactrim) Allergy (Unknown, Verified 07/19/24 09:05) Unknown Reaction trimethoprim (Bactrim) Allergy (Unknown, Verified 07/19/24 09:05) Unknown Reaction hydrocodone (From Vicodin) Allergy (Verified 07/19/24 09:05) Vomiting Rocuronium [place] Allergy (Unknown, Uncoded 08/20/23 14:19) breathing difficulty Home Medications atorvastatin 20 mg tablet 10 mg PO QHS 08/20/23 [History Confirmed 07/08/24] metoprolol succinate 25 mg tablet,extended release 24 hr 25 mg PO QPM 30 days #30 tabs 09/15/23 [RxConfirmed 07/19/24] omeprazole 20 mg capsule,delayed release 20 mg PO DAILY 09/19/23 [History Confirmed 07/08/24] ezetimibe 10 mg tablet (Zetia) 10 mg PO HS 11/19/23 [History Confirmed 07/08/24] losartan 25 mg tablet 25 mg PO QAM 11/19/23 [History Confirmed 07/19/24] zolpidem 10 mg tablet 10 mg PO QHS insomnia 90 days #90 tabs 06/08/24 [Rx Confirmed 07/08/24] acetaminophen 500 mg tablet 1,000 mg (2 x 500 mg) PO Q8H 30 days #180 tabs 07/08/24 [Rx Confirmed 07/08/24] acetaminophen 650 mg tablet,extended release (Arthritis Pain Reliever) 1,300 mg PO HS pain 07/08/24[History Confirmed 07/08/24] alprazolam 0.25 mg tablet 0.25 mg PO DAILY PRN anxiety 07/08/24 [History Confirmed 07/19/24] aspirin 81 mg tablet,delayed release 81 mg PO BID 35 days #70 tabs 07/08/24 [Rx Confirmed 07/08/24] aspirin 81 mg tablet,delayed release 81 mg PO DAILY 07/08/24 [History Confirmed 07/19/24] cefadroxil 500 mg capsule 500 mg PO Q12H 7 days #14 tabs 07/08/24 [Rx Confirmed 07/08/24] cholecalciferol (vitamin D3) 10 mcg (400 unit) capsule (Vitamin D3) 800 unit PO DAILY 07/08/24 [History Confirmed 07/08/24] diphenhydramine HCl 25 mg tablet (Allergy (diphenhydramine)) 25 mg PO QAM runny nose 07/08/24 [History Confirmed 07/08/24] ondansetron HCl 4 mg tablet 4 mg PO Q8H PRN Nausea #9 tabs 07/08/24 [Rx Confirmed 07/08/24] oxycodone 5 mg tablet 5 mg PO Q4H PRN Pain 7 days #40 tabs 07/08/24 [Rx Confirmed 07/08/24] prednisone 10 mg tablet 10 mg PO daily 10 days #10 tabs 07/08/24 [Rx Confirmed 07/08/24] propylene glycol 0.6 % eye drops (Systane Balance) 1 drp Eye-Both DAILY PRN dry eye(s) 07/08/24 [History Confirmed 07/08/24] sennosides 8.6 mg-docusate sodium 50 mg tablet (Senokot-S) 2 tab PO daily 30 days #60 tabs 07/08/24[Rx Confirmed 07/08/24] tramadol 50 mg tablet 50 mg PO q6h PRN Pain 7 days #28 tabs 07/08/24 [Rx Confirmed 07/08/24] vitamin E 450 mg PO DAILY 07/08/24 [History Confirmed 07/08/24] celecoxib 200 mg capsule See Rx Instructions .Route .COMPLEX #30 caps 07/16/24 [Rx Confirmed 07/19/24] Active Medications: Active Medications Generic Name Dose Route Start Last Admin Trade Name Freq PRN Reason Stop Dose Admin Acetaminophen 1,000 mg 07/19/24 17:30 07/19/24 17:27 Acetaminophen 500 Mg Tablet PO 07/19/25 17:29 Not Given Q8H [facility] Ascorbic Acid 500 mg 07/20/24 08:00 Ascorbic Acid 500 Mg Tablet PO 07/20/25 07:59 BID.WITH.MEALS ERNIE Aspirin 81 mg 07/19/24 21:00 Aspirin 81 Mg Tablet. PO 07/19/25 20:59 BID ERNIE Cefadroxil 500 mg 07/20/24 09:00 Cefadroxil 500 Mg Capsule PO 07/26/24 21:01 BID [facility] Cefazolin Sodium 2 gm 07/19/24 18:00 Cefazolin 2 Gm/11 Ml Syringe IV-PUSH 07/20/24 02:01 Q8H [facility] Diphenhydramine HCl 25 mg 07/19/24 17:12 Diphenhydramine 25 Mg Capsule PO 07/19/25 17:11 Q6H PRN Itching Ferrous Sulfate 324 mg 07/20/24 08:00 Ferrous Sulfate 324 Mg Tablet. PO 07/20/25 07:59 BID.WITH.MEALS [facility] Lactated Ringer's 1,000 mls @ 20 mls/hr 07/19/24 08:30 07/19/24 12:25 Lactated Ringers IV 07/20/24 08:29 20 mls/hr .Q24H ONE Infusion Lactated Ringer's 1,000 mls @ 75 mls/hr 07/19/24 17:30 07/19/24 17:30 Lactated Ringers IV 07/20/24 06:49 75 mls/hr .[id number] [facility] Administration Mineral Oil 1 each 07/22/24 17:12 Mineral Oil ([place]) 1 Each Enema MA ONCE PRN Constipation Morphine Sulfate 15 mg 07/19/24 17:12 Morphine Sulfate 12hr Er 15 Mg Tablet.Er PO Q12H PRN Pain Naloxone HCl 0.4 mg 07/19/24 17:12 Naloxone Hcl 0.4 Mg/Ml Vial IV-PUSH 07/19/25 17:11 Q2M PRN Opioid Reversal Ondansetron HCl 8 mg 07/19/24 17:12 Ondansetron Odt 4 Mg Tab.Rapdis PO 07/19/25 17:11 TID PRN Nausea Oxycodone HCl 5 mg 07/19/24 17:12 Oxycodone Ir 5 Mg Tablet PO Q4HR PRN Pain Scale 6 - 10 Polyethylene Glycol 17 gm 07/20/24 09:00 Polyethylene Glycol 3350 17 Gm Powd.Pack PO 07/27/24 08:59 DAILY ERNIE Prednisone 10 mg 07/20/24 09:00 Prednisone 10 Mg Tablet PO 08/18/24 09:01 DAILY ERNIE Prochlorperazine Maleate 10 mg 07/19/24 17:12 Prochlorperazine Maleate 5 Mg Tablet PO 07/19/25 17:11 Q6H PRN Nausea Senna/Docusate Sodium 2 tab 07/20/24 09:00 Sennosides/Docusate 8.6-50mg 1 Tab Tablet PO 08/19/24 08:59 DAILY [facility] Sodium Chloride 0 ml 07/19/24 08:29 Sodium Chloride 0.9 % 10 Ml Syringe IV-PUSH 07/19/25 08:28 PRN PRN Flush Sodium Chloride 0 ml 07/19/24 08:30 Sodium Chloride 0.9 % 10 Ml Syringe IV-PUSH 07/19/25 08:29 PRN PRN Flush Sodium Chloride 0 ml 07/19/24 22:00 Sodium Chloride 0.9 % 10 Ml Syringe IV-PUSH 07/19/25 21:59 QSHIFT ERNIE Temazepam 7.5 mg 07/19/24 17:12 Temazepam 7.5 Mg Capsule PO 01/15/25 17:11 QHS PRN Insomnia Tramadol HCl 50 mg 07/19/24 17:12 Tramadol 50 Mg Tablet PO 01/15/25 17:11 Q6H PRN Pain Scale 1 - 5 Exam Physical Exam Vital Signs: Temp Pulse Resp BP Pulse Ox O2 Del Method O2 Flow Rate 97.1 F L 77 20 157/70 H 100 Room Air 8 07/19/24 13:10 07/19/24 17:05 07/19/24 17:05 07/19/24 17:05 07/19/24 17:05 07/19/24 17:41 07/19/24 12:10 Narrative: CONST-alert, awake resting comfortably in bed HEAD - Normocephalic and atraumatic EENT-Sclera nonicteric and conjunctive are nonerythemic, moist oral mucosa, pharynx clear NECK-Supple, no cervical lymphadenopathy CARDIAC-normal rate, regular rhythm, normal S1 & S2. PULM-diminished without wheeze or rhonchi, RA, no accessory muscle use or cough noted ABD - Soft. Bowel sounds are normal. No distention No tenderness EXTREM left hip tenderness SKIN-surgical dressing intact MS- MAEX4 spontaneously with equal with equal strength NEURO- A&Ox3 speech clear and tongue midline, equal facial symmetry no focal motor deficits PSYCH-Mood, affect and behavior appropriate Assessment & Plan Assessment/Plan (1) Primary osteoarthritis of left hip: (2) GERD (gastroesophageal reflux disease): (3) Aftercare following right knee joint replacement surgery: Plan #Hypertension, uncontrolled, likely due to pain * Resume home metoprolol and add hydralazine as needed #Hyperlipidemia?resume atorvastatin #Status post total left total hip arthroplasty secondary to left primary osteoarthritis * Continue plan of care per orthopedic * Continue pain management as needed * On 81 mg twice daily per orthopedic for DVT prophylaxis * PT/OT to eval and treat Documented By: Carol Holland APRN 07/19/24 181 Signed By: 07/19/24 1835 07/19/24 1847 [facility]12-10-2024 Evaluation note* Diagnosis Onset Date Resolution Status Admit Date ASHD (arteriosclerotic heart disease) acute June 08 2:08pm Carotid stenosis, left acute De cem2023 2:08pm Elevated cholesterol acute Dece 2023 2:08pm GERD (gastroesophageal reflu x disease) acute June 08 2:08pm Primary hypertension acute Dece 2023 2:08pm Primary osteoarthritis of left hip acute June 08 024 2:08pm Preop exam for internal medicine noneactive June 08 2:08pm Acute sinusitis acute June 24, 2024 9:42am ASHD (arteriosclerotic heart disease) acute June 24 024 9:42am Primary osteoarthritis of left hip acute July 08 7:56am Aftercare following right knee joint replacement surgery acute July 19 8:05am GERD (gastroesophageal reflu x disease) acute July 19 8:05am Impaired mobility and activities of daily living acute 2024 8:05am Primary osteoarthritis of left hip acute July 19 8:05am S/P total left hip arthroplasty acute July 19 8:05am Impaired mobility and activities of daily living acute 2024 4:57pm Insomnia acute July 20, 2024 4:57pm Obesity acute July 20, 2024 4:57pm Postoperative hematoma acute 2024 4:57pm Primary hypertension acute 2024 4:57pm S/P total left hip arthroplasty acute July 20 4:57pm [facility] Work Phone: 1(329) 510-573012-10-2024 Evaluation note* Diagnosis Onset Date Resolution Status Admit Date ASHD (arteriosclerotic heart disease) acute June 08, 024 2:08pm Carotid stenosis, left acute De cem2023 2:08pm Elevated cholesterol acute Dece 2023 2:08pm GERD (gastroesophageal reflu x disease) acute June 08, 024 2:08pm Primary hypertension acute Dece 2023 2:08pm Primary osteoarthritis of left hip acute June 08 024 2:08pm Preop exam for internal medicine noneactive June 08, 2 024 2:08pm Acute sinusitis acute June 24, 2024 9:42am ASHD (arteriosclerotic heart disease) acute June 24, 2 024 9:42am Primary osteoarthritis of left hip acute July 08 7:56am Aftercare following right knee joint replacement surgery acute July 19 8:05am GERD (gastroesophageal reflu x disease) acute July 19 8:05am Impaired mobility and activities of daily living acute 2024 8:05am Primary osteoarthritis of left hip acute July 19 8:05am S/P total left hip arthroplasty acute July 19 8:05am Impaired mobility and activities of daily living acute 2024 4:57pm Insomnia acute July 20, 2024 4:57pm Obesity acute July 20, 2024 4:57pm Postoperative hematoma acute 2024 4:57pm Primary hypertension acute 2024 4:57pm S/P total left hip arthroplasty acute July 20 4:57pm Primary osteoarthritis of left hip acute February 10th, 2 025 2:51pm S/P total left hip arthroplasty acute August 09, 2 025 2:51pm [facility] Work Phone: 1(473) 717-172912-10-2024 Evaluation note* Diagnosis Onset Date Resolution Status Admit Date ASHD (arteriosclerotic heart disease) acute June 08, 2 024 2:08pm Carotid stenosis, left acute De cember 2023 2:08pm Elevated cholesterol acute Dece 2023 2:08pm Primary hypertension acute Dece 2023 2:08pm Primary osteoarthritis of left hip acute June 08 024 2:08pm GERD (gastroesophageal reflux disease) deleted June 08 024 2:08pm Preop exam for internal medicine noneactive June 08 024 2:08pm ASHD (arteriosclerotic heart disease) acute June 24 024 9:42am Acute sinusitis deleted June 24, 2024 9:42am Primary osteoarthritis of left hip acute July 08 7:56am Primary osteoarthritis of left hip acute July 19 8:05am S/P total left hip arthroplasty June, acute July 19 8:05am Aftercare following right knee joint replacement surgery deleted July 19 8:05am GERD (gastroesophageal reflux disease) deleted July 19 8:05am Impaired mobility and activities of daily living deleted 2024 8:05am Obesity acute July 20, 2024 4:57pm Postoperative hematoma acute [facility]2024 4:57pm Primary hypertension acute 2024 4:57pm S/P total left hip arthroplasty June, acute July 20 4:57pm Impaired mobility and activities of daily living deleted 2024 4:57pm Insomnia deleted July 20, 2024 4:57pm Primary osteoarthritis of left hip acute August 09 025 2:51pm S/P total left hip arthroplasty June,August 09 025 2:51pm ASHD (arteriosclerotic heart disease) acute August 16 2 025 1:25pm Chest wall mass acute August 16, 2024 1:25pm Elevated cholesterol acute Febr 2024 1:25pm Obesity acute August 16, 2024 1:25pm Primary hypertension acute Febr 2024 1:25pm S/P total left hip arthroplasty June, acute August 16, 2 025 1:25pm Acute blood loss anemia noneactive F ebruary 2024 1:25pm [facility] Work Phone: [phone]) [phone] Evaluation note* Diagnosis Onset Date Resolution Status Admit Date Primary osteoarthritis of left hip acute April 29 12:48pm ASHD (arteriosclerotic heart disease) acute June 08, 2 024 2:08pm Carotid stenosis, left acute De cember 2023 2:08pm Elevated cholesterol acute Dece mb2023 2:08pm GERD (gastroesophageal reflu x disease) acute June 08, 024 2:08pm Primary hypertension acute Dece mb2023 2:08pm Primary osteoarthritis of left hip acute June 08 2 024 2:08pm Preop exam for internal medicine noneactive June 08, 2 024 2:08pm Acute sinusitis acute June 24, 2024 9:42am ASHD (arteriosclerotic heart disease) acute June 24 024 9:42am Primary osteoarthritis of left hip acute July 08 7:56am Aftercare following right knee joint replacement surgery acute July 19 8:05am GERD (gastroesophageal reflu x disease) acute July 19 8:05am Primary osteoarthritis of left hip acute July 19 8:05am S/P total left hip arthroplasty acute July 19 8:05am [facility] Work Phone: 1(178) 888-727510-17-2024 History of Present illness Narrative* Hiro Henry DPM - 04/15/2024 3:00 PM EDT Patient: Ashley Brown : 1940 PCP: Odell Harrington MD SUBJECTIVE This is a 83 y.o. female that presents today with a CC of elongated, thick nails. Pt states nails have been elongated and thick for many years and cause pain with ambulation in shoegear. Pt has tried previous treatment with minimal relief. Pt presents today for nail care and treatment. Patient also has history of bunion surgery to left great toe region and also right foot arthritis particularly to the right great toe joint. She states she does have pain from time to time to the right great toe joint although minimal. Allergies: Allergies Allergen Reactions Rocuronium Shortness of breath and Unknown Had severe breathing problems, was in ICU, with anesthesia Acetaminophen GI intolerance Hydrocodone Unknown Oxycodone Unknown and GI intolerance Oxycodone-Acetaminophen Unknown vomiting Sulfamethoxazole Unknown Trimethoprim Unknown Past Medical History: Past Medical History: Diagnosis Date Actinic keratosis Cataract Dry eyes HTN (hypertension) ([facility]) Hypercholesteremia (CMS/HCC) Medications: Current Outpatient Medications: alpha tocopherol (Vitamin E) 400 units capsule, 1 capsule 1 (one) time each day at the same time., Disp: , Rfl: ALPRAZolam (Xanax) 0.25 MG tablet, Takes rarely, Disp: , Rfl: aspirin 81 MG EC tablet, Take 1 tablet by mouth in the morning., Disp: , Rfl: atorvastatin (Lipitor) 20 MG tablet, Take 1 tablet by mouth in the morning. Takes 1/2 tab., Disp: ,Rfl: Calcium-Vitamin D-Vitamin K (Calcium+Menaq7) 600-1000-90 MG-UNT-MCG tablet, 1 (one) time each day at the same time., Disp: , Rfl: cefuroxime (Ceftin) 250 MG tablet, , Disp: , Rfl: cholecalciferol (Vitamin D-3) 25 MCG (1000 UT) tablet, Take 1 tablet by mouth in the morning., Disp: , Rfl: Ciclopirox 0.77 % gel, Apply thin layer to affected area once a day, 30 day supply, Disp: 45 g, Rfl: 11 fluocinonide (Lidex) 0.05 % external solution, Apply to affected areas on the scalp, up to twice a day when flared, 30 day supply, Disp: 60 mL, Rfl: 11 loratadine (Claritin) 10 MG tablet, 1 (one) time each day at the same time., Disp: , Rfl: losartan (Cozaar) 25 MG tablet, Take 1 tablet by mouth in the morning., Disp: , Rfl: metoprolol succinate XL (Toprol-XL) 50 MG 24 hr tablet, Take 50 mg by mouth in the morning., Disp: , Rfl: zolpidem (Ambien) 10 MG tablet, Take 1 tablet by mouth as needed at bedtime., Disp: , Rfl: Social History: Social History Socioeconomic History Marital status: Spouse name: Not on file Number of children: Not on file Years of education: Not on file Highest education level: Not on file Occupational History Not on file Tobacco Use Smoking status: Unknown Smokeless tobacco: Not on file Substance and Sexual Activity Alcohol use: Not on file Drug use: Not on file Sexual activity: Not on file Other Topics Concern Not on file Social History Narrative Not on file Social Drivers of Health Financial Resource Strain: Not on file Food Insecurity: Not on file Transportation Needs: Not on file Physical Activity: Not on file Stress: Not on file Social Connections: Not on file Intimate Partner Violence: Unknown (08/21/2023) Received from [facility], [facility] [place] [employer] Fear of Current or Ex-Partner: Not on file Emotionally Abused: Not on file Physically Abused: Not on file Sexually Abused: Not on file Physically or Sexually Abused: Not on file Housing Stability: Not on file ROS: General: denies fever, chills, fatigue, malaise GI: denies abdominal pain or ulcerations with anti-inflammatory medication OBJECTIVE LE EXAM: DERM: Elongated thick yellow crumbly nails digits 1 through 10. Positive hair growth b/l feet. Rubor to dorsal medial eminence 1st metatarsal of the left foot Left 4th interdigital space maceration noted with dry peeling skin VASC: Positive palpable pedal pulses bilaterally NEURO: Gross sensation intact to bilateral feet ORTHO: Positive pain on palpation to nails 1 through 10 HAV deformity left that is non reducible with range of motion of 1st MPJ right less than 5 degrees dorsiflexion with crepitus ASSESSMENT 1. Pain due to onychomycosis of toenails of both feet 2. Hallux rigidus of right foot 3. Hav (hallux abducto valgus), left 4. Tinea pedis of left foot PLAN Discussed proper foot care with patient today. Debride nails in length and thickness digits 1 through 10 Pt to take nsaids as needed PRN pain Patient education concerning tinea infection. Discussed use of antifungal cream and foot powders aswell as good foot hygiene and prevention measures. Patient was given a prescription by her doctor for cycle peroxide advise her to use this twice daily between the toes with the next 14 days Hiro Henry DPM documented in this encounterCox [id number] Evaluation note* Diagnosis Onset Date Resolution Status Admit Date ASHD (arteriosclerotic heart disease) acute April 15 11:33am COVID acute April 15, 2024 11:33am Primary hypertension acute Octo 2023 11:33am Primary osteoarthritis of left hip acute April 29 12:48pm ASHD (arteriosclerotic heart disease) acute June 08, 2 024 2:08pm Carotid stenosis, left acute De cember 2023 2:08pm Elevated cholesterol acute Dece 2023 2:08pm GERD (gastroesophageal reflu x disease) acute June 08, 2 024 2:08pm Primary hypertension acute Dece 2023 2:08pm Primary osteoarthritis of left hip acute June 08, 2 024 2:08pm Preop exam for internal medicine noneactive June 08, 2 024 2:08pm Acute sinusitis acute June 24, 2024 9:42am ASHD (arteriosclerotic heart disease) acute June 24, 2 024 9:42am Primary osteoarthritis of left hip acute July 08 7:56am [facility] Work Phone: 1(214) 956-270408-26-2024 NoteRight Eye Quality was good. Scan locations included subfoveal. Progression has been stable. Findings include abnormal foveal contour, epiretinal membrane. Left Eye Quality was good. Scan locations included subfoveal. Progression has been stable. Findings include normal observations.Cox [id number] History of Present illness Narrative* Lindsey Huang, - 02/23/2024 2:00 PM EDT Images from the original note were not included. Assessment/Plan Diagnoses and all orders for this visit: Early dry stage nonexudative age-related macular degeneration of both eyes - ARMD OU, dry. Importance of smoking cessation, blood pressure control, and healthy diet were emphasized. Patient was advised to consider ultraviolet-B blocking sunglasses. In accordance with the AREDS study, appropriate antioxidant and mineral supplements were prescribed. Patient was instructed to self monitor their monocular vision (reading/Amsler Grid) at least weekly. Patient should immediately report any new onset of decreased vision or metamorphopsia. PCO (posterior capsular opacification), bilateral - PCO OU: (Posterior Capsule Opacification) Can be observed without intervention if PCO is not visually significant. Nd:YAG laser capsulotomy may be considered if impairment of vision rises to a level that dose not meet the patient's functional needs or interferes with activities of daily living. Risks, benefits and alternatives to the procedure will be reviewed. If the patient has undergone Nd:YAG laser capsulotomy, they are to notify their soft shoe dancer promptly if they have a significant change in symptoms, such as flashes of light (photopsia), an increase in floaters, loss of visual field or decrease in visual acuity. Dry eyes - Dry Eyes OU -- Environmental changes to minimize dryness and exposure and the use of artificial tears were recommended. Blepharitis of upper and lower eyelids of both eyes, unspecified type - Blepharitis, posterior type OU - The patient exhibits inspissated meibomian glands. Warm compresses, lid massage and lid scrubs were recommended. documented in this encounterCox [id number] NoteUT Cardiology - [facility] Subjective Ashley Brown is a 83 y.o. year old female patient being seen for 3 mo follow up CAD, chronic systolic heart failure, carotid artery stenosis, and hyperlipidemia. She was started on Zetia at last visit in October 2023 by Odilia Mccallum CNP, and tolerating it well. Had liver/lipid panel this morning. Still c/o chest tightness , but SOB has subsided. Patient Active Problem List Diagnosis Coronary artery disease involving red lake coronary artery of red lake heart without angina pectoris Essential hypertension History [...] Dry eyes PCO (posterior capsular opacification), bilateral Elevated cholesterol GERD (gastroesophageal reflux disease) Impaired mobility and activities of daily living Post-operative pain Primary insomnia Primary osteoarthritis of both knees Primary osteoarthritis of right knee Screening mammography declined Status post total right knee replacement Family History Problem Relation Name Age of Onset Coronary artery disease Father Other (parkinsons) Father Social History Tobacco Use Smoking status: Never Smokeless tobacco: Never Substance Use Topics Alcohol use: Yes Comment: occasional Drug use: Never HPI She is a 83 yo woman with prior history of hypertension. She has history of PAD with a stent in the femoral artery. She has history of dysautonomia. History of CAD with cath ins 2011 showing 50% proximal LAD and 50% mid RCA stenosis. In December 2019 she was found to have severe three-vessel coronary disease and underwent bypass surgery. At the time of the bypass surgery she had systolic heart failure with reduced ejection fraction at 35 to 40%. This improved on subsequent follow-up echocardiography to normal range. History of renal artery stenosis, s/p right renal artery stenting, cath in 2011 showing 20% ISR. Post CABG she developed atrial fibrillation. I checked an event monitor and that did not show any recurrence of A. fib. I stopped Eliquis therapy. Following surgery she was evaluated by cardiothoracic surgery for sternal malunion. She was recommended surgical repair but she declined surgery. In August of 2023 she had right knee replacement. Today she reports that she has been doing the same. Her main complaint is having on and off pain in the center of the chest at the site of the prior sternotomy. She also has left knee issues and might be looking at another replacement. She denies shortness of breath, leg edema or syncope. She has no palpitations. Review of Systems Cardiovascular: Positive for chest pain ( tightness ). Respiratory: Positive for cough. Musculoskeletal: Positive for arthritis and joint pain. Neurological: Positive for light-headedness. All other systems reviewed and are negative. Objective Visit Vitals BP 132/64 (BP Location: Left arm, Patient Position: Sitting) Pulse 63 Ht 1.473 m (4' 10 ) Wt 67.6 kg (149 lb) SpO2 99% BMI 31.14 kg/m??? Smoking Status Never BSA 1.66 m??? Physical Exam Constitutional: Appearance: She is [...] or rales. Chest: Chest wall: No tenderness. Comments: site of the sternal malunion felt. Tenderness is localized at the site and corresponds to her chest pain symptom. Abdominal: General: Bowel sounds are normal. There is no distension. Palpations: Abdomen is soft. Tenderness: There is no abdominal tenderness. Musculoskeletal: General: No swelling. Cervical back: Neck supple. Skin: General: Skin is warm and dry. Neurological: General: No focal deficit present. Mental Status: She is alert and oriented to person, place, and time. Psychiatric: Mood (more content not included)...[facility]05-07-2024 NotePatient here for 6 mo follow up CAD, PAF, hypertension, carotid artery [...] light-headedness. All other systems reviewed and are negative.[facility] 11-04-2023 NoteCardiovascular Medicine [facility] SUBJECTIVE No chief complaint on file. [...] Problem List Diagnosis Coronary artery disease involving red lake coronary artery of red [place] heart without angina pectoris Essential hypertension History [...] and Affect: Mood normal. (more content not included)...[facility]03-18-2024 Discharge summary Author Elijah Mayers [facility] September 15, 2023 1:11pm Note Date/Time September 15, 2023 12: 34pm [facility] [address] [place], [place] [id number] Discharge Summary Signed Patient: Ashley Brown MR#: [id number] : 1940 Acct:[id number] Age/Sex: 82 / F Adm Date: 4 Loc: Room: 7L4472-[address]: Elijah Mayers MD Copies to: DO Elijah Wheat MD Elena Turovskaya, BSW~ Providers Date of Discharge: 09/15/23 Discharging Provider: [...] mobility. Patient will be discharged home with [facility] health services. No additional DME is required. [...] Plan Discharge Plan Patient Disposition: Home Health [facility] Activity: Ambulate as Tolerated and May Shower [...] as needed. Your Home Health agency is [facility] ( ). They will contact you after discharge to schedule a day/time to meet with you at [facility] to establish care. You have been given prescriptions for new and/or needed medications. These prescriptions are for a one-time fill only, with no re-fills. For further re- fills going forward, you will need to address [...] signed by Elijah Mayers MD> 09/15/23 1311 [facility] Work Phone: 1(362) 530-118103-18-2024 Progress note Author Magno Pichardo [facility] September 15, 2023 7:54am Note Date/Time September 15, 2023 7:[address] [facility] [address] [place], [place] [id number] Orthopedic Progress Note Signed Patient: Ashley Brown MR#: [id number] : 1940 Acct:[id number] Age/Sex: 82 / F Adm Date: 4 Loc: 5T Room: 1I3225-9 Type: ADM IN Attending Dr: Elijah Mayers [...] Full extension to approximate 105 degrees painlessly. [facility] IN[facility] Ambulation: 1 Yes, [...] signed by Magno Pichardo MD> 09/15/23 0754 [facility] Work Phone: 1([phone]) 420-401803-17-2024 Progress note Author Patricia Mayberry [facility] September 14, 2023 5:41pm Note Date/Time September 14, 2023 5:[address] [facility] [address] [place] [address] Hospitalist Progress Note Signed Patient: Ashley Brown MR#: [id number] : 1940 Acct:[id number] Age/Sex: 82 / F Adm Date: 4 Loc: Room: 9J9034-2 Type: ADM IN Attending Dr: Elijah Mayers [...] Vicodin] Allergy (Verified 09/02/23 15:58) Vomiting Rocuronium [place] Allergy (Unknown, Uncoded 08/20/23 14:19) breathing difficulty [...] mg 09/02/23 14:57 Bisacodyl 10 Mg Supp.Rect MA 09/01/24 14:56 DAILY PRN Constipation Diclofenac Sodium 2 gm 09/02/23 18:00 09/13/23 08:35 Diclofenac Sodium 1% Gel 100 Gm Tube TOPICAL 09/01/24 17:59 2 gm QID ERNIE Administration Docusate Sodium 283 mg 09/02/23 14:57 Docusate Enema 283 Mg/5 Ml Enema MA 09/01/24 14:56 DAILY PRN Constipation Docusate Sodium [...] 09/04/23 09:00 09/13/23 08:31 Pantoprazole 40 Mg Tablet. PO 09/03/24 08:59 [...] Documented By: Patricia Mayberry APRN 08/28 12/21 4258 Signed By: <Electronically signed by CHASITY Mayberry> 09/14/23 1741 [facility] Work Phone: 1(510) 172-324303-15-2024 Progress note Author Elijah Mayers [facility] September 12, 2023 2:08pm Note Date/Time September 12, 2023 2:[address] 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 She does [...] Vicodin] Allergy (Verified 09/02/23 15:58) Vomiting Rocuronium [place] Allergy (Unknown, Uncoded 08/20/23 14:19) breathing difficulty [...] mg 09/02/23 14:57 Bisacodyl 10 Mg Supp.Rect MA 09/01/24 14:56 DAILY PRN Constipation Diclofenac Sodium 2 gm 09/02/23 18:00 09/12/23 08:49 Diclofenac Sodium 1% Gel 100 Gm Tube TOPICAL 09/01/24 17:59 2 gm QID ERNIE Administration Docusate Sodium 283 mg 09/02/23 14:57 Docusate Enema 283 Mg/5 Ml Enema MA 09/01/24 14:56 DAILY PRN Constipation Docusate Sodium 100 mg 09/05/23 14:06 Docusate 100 Mg Capsule PO 09/03/24 08:59 BID PRN Constipation Enoxaparin Sodium 40 mg 09/03/23 10:35 09/12/23 08:49 Enoxaparin 40 Mg/0.4 Ml Syringe SUBCUT 09/02/24 10:34 40 mg DAILY@1000 [facility] Administration Home Med 1 each 09/02/23 23:30 Home Meds Kept In Pharmacy [facility] 09/01/24 23:29 PRN PRN zz.Pharmacy Note Lactulose [...] equipment 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 Mayers, on the day of encounter, reviewed the history and the relevant portions of the chart, including current orders, allied health and engagement quality consultant notes, labs/imaging and performed timmons elements of exam and I formulated the plan of care and facilitated the medical decision making. I completed a substantive portion of this encounter, the medical decision makingportion of this note in its entirety, including Allied health note review, nursing note review, engagement quality consultant note review, discussion with nursing and case management, and more than 50% of my time was spent on counseling and coordination of care, time spent 25 minutes Documented By: Elijah Mayers MD 140 Signed By: <Electronically signed by Elijah Mayers MD> 09/12/23 1408 [facility] Work Phone: 1(824) 696-342003-14-2024 Progress note Author Elijah Mayers [facility] September 11, 2023 1:21pm Note Date/Time September 11, 2023 1:[address] [facility] [address] [place] [address] Physiatry(Rehab) Progress Note Signed Patient: Ashley Brown MR#: [id number] : 1940 Acct:[id number] Age/Sex: 82 / F Adm Date: 4 Loc: Room: [address] [place] [address] Type: ADM IN Attending Dr: Elijah Mayers [...] She was given Compazine injection by hospitalist SEWING MACHINE OPERATOR PAPER BAGS which 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 She does [...] Vicodin] Allergy (Verified 09/02/23 15:58) Vomiting Rocuronium [place] Allergy (Unknown, Uncoded 08/20/23 14:19) breathing difficulty [...] mg 09/02/23 14:57 Bisacodyl 10 Mg Supp.Rect MA 09/01/24 14:56 DAILY PRN Constipation Diclofenac Sodium 2 gm 09/02/23 18:00 09/11/23 09:38 Diclofenac Sodium 1% Gel 100 Gm Tube TOPICAL 09/01/24 17:59 Not Given QID ERNIE Docusate Sodium 283 mg 09/02/23 14:57 Docusate Enema 283 Mg/5 Ml Enema MA 09/01/24 14:56 DAILY PRN Constipation Docusate Sodium 100 mg 09/05/23 14:06 Docusate 100 Mg Capsule PO 09/03/24 08:59 BID PRN Constipation Enoxaparin Sodium 40 mg 09/03/23 10:35 09/11/23 09:38 Enoxaparin 40 Mg/0.4 Ml Syringe SUBCUT 09/02/24 10:34 40 mg DAILY@1000 ERNIE Administration Home Med 1 each 09/02/23 23:30 Home Meds Kept In Pharmacy [facility] 09/01/24 23:29 PRN PRN zz.Pharmacy Note Lactulose [...] 09/04/23 09:00 09/11/23 09:38 Pantoprazole 40 Mg Tablet.Dr PO 09/03/24 08:59 [...] equipment 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 Mayers, on the day of encounter, reviewed the history and the relevant portions of the chart, including current orders, allied health and engagement quality consultant notes, labs/imaging and performed timmons elements of exam and I formulated the plan of care and facilitated the medical decision making. I completed a substantive portion of this encounter, the medical decision makingportion of this note in its entirety, including Allied health note review, nursing note review, engagement quality consultant note review, discussion with nursing and case management, and more than 50% of my time was spent on counseling and coordination of care, time spent 26 minutes Documented By: Elijah Mayers MD [id number] Signed By: <Electronically signed by Elijah Mayers MD> 09/11/23 1321 [facility] Work Phone: 1(216) 238-397603-14-2024 Progress note Author Magno Pichardo [facility] September 11, 2023 8:23am Note Date/Time September 11, 2023 8:[address] [facility] [address] [place] [address] Orthopedic Progress Note Signed Patient: Ashley Brown MR#: [id number] : 1940 Acct:[id number] Age/Sex: 82 / F Adm Date: 4 Loc: Room: 8N3609-3 Type: ADM IN Attending Dr: Elijah Mayers [...] signed by Magno Pichardo MD> 09/11/23 0823 [facility] Work Phone: 1(622) 719-176303-13-2024 Progress note Author Elijah Mayers [facility] September 10, 2023 1:36pm Note Date/Time September 10, 2023 1:[address] [facility] [address] [place] [address] Physiatry(Rehab) Progress Note Signed Patient: Ashley Brown MR#: [id number] : 1940 Acct:[id number] Age/Sex: 82 / F Adm Date: 4 Loc: Room: [address] [place] [address] Type: ADM IN Attending Dr: Elijah Mayers [...] She was given Compazine injection by hospitalist SEWING MACHINE OPERATOR PAPER BAGS which 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 She does [...] Vicodin] Allergy (Verified 09/02/23 15:58) Vomiting Rocuronium [place] Allergy (Unknown, Uncoded 08/20/23 14:19) breathing difficulty [...] mg 09/02/23 14:57 Bisacodyl 10 Mg Supp.Rect MA 09/01/24 14:56 DAILY PRN Constipation Diclofenac Sodium 2 gm 09/02/23 18:00 09/10/23 10:49 Diclofenac Sodium 1% Gel 100 Gm Tube TOPICAL 09/01/24 17:59 2 gm QID ERNIE Administration Docusate Sodium 283 mg 09/02/23 14:57 Docusate Enema 283 Mg/5 Ml Enema MA 09/01/24 14:56 DAILY PRN Constipation Docusate Sodium [...] which was performed on 08/[address] Pihcardo. Uncomplicated procedure and postoperative course. * Continues [...] equipment 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 Mayers, on the day of encounter, reviewed the history and the relevant portions of the chart, including current orders, allied health and engagement quality consultant notes, labs/imaging and performed timmons elements of exam and I formulated the plan of care and facilitated the medical decision making. I completed a substantive portion of this encounter, the medical decision makingportion of this note in its entirety, including Allied health note review, nursing note review, engagement quality consultant note review, discussion with nursing and case management, and more than 50% of my time was spent on counseling and coordination of care, time spent 26 minutes Documented By: Elijah Mayers MD [id number] Signed By: <Electronically signed by Elijah Mayers MD> 09/10/23 8808 [facility] Work Phone: 1([phone]) 509-316603-13-2024 Progress note Author Elijah Mayers [facility] September 10, 2023 9:32am Note Date/Time September 09, 2023 1:[address] [facility] [address] [place] [address] Physiatry(Rehab) Progress Note Signed Patient: Ashley Brown MR#: [id number] : 1940 Acct:[id number] Age/Sex: 82 / F Adm Date: 4 Loc: Room: [address] [place] [address] Type: ADM IN Attending Dr: Elijah Mayers [...] She was given Compazine injection by hospitalist SEWING MACHINE OPERATOR PAPER BAGS which 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 She does [...] affect appropriate. Normal speech. Objective <Heidi Mesa, BSW - Last Filed: 09/09/23 13:22> Labs 09/08/23 [...] Vicodin] Allergy (Verified 09/02/23 15:58) Vomiting Rocuronium [place] Allergy (Unknown, Uncoded 08/20/23 14:19) breathing difficulty [...] mg 09/02/23 14:57 Bisacodyl 10 Mg Supp.Rect MA 09/01/24 14:56 DAILY PRN Constipation Cefadroxil 500 mg 09/02/23 21:00 09/09/23 09:23 Cefadroxil 500 Mg Capsule PO 09/09/23 20:59 500 mg BID ERNIE Administration Diclofenac Sodium 2 gm 09/02/23 18:00 09/09/23 09:24 Diclofenac Sodium 1% Gel 100 Gm Tube TOPICAL 09/01/24 17:59 2 gm QID ERNIE Administration Docusate Sodium 283 mg 09/02/23 14:57 Docusate Enema 283 Mg/5 Ml Enema MA 09/01/24 14:56 DAILY PRN Constipation Docusate Sodium 100 mg 09/05/23 14:06 Docusate 100 Mg Capsule PO 09/03/24 08:59 BID PRN Constipation Enoxaparin Sodium 40 mg 09/03/23 10:35 09/09/23 09:24 Enoxaparin 40 Mg/0.4 Ml Syringe SUBCUT 09/02/24 10:34 40 mg DAILY@1000 [facility] Administration Home Med 1 each 09/02/23 23:30 Home Meds Kept In Pharmacy [facility] 09/01/24 23:29 PRN PRN zz.Pharmacy Note Lactulose [...] mg QHS ERNIE Administration Assessment/Plan <Heidi Mesa, BSW - Last Filed: 09/09/23 13:22> Assessment/Plan (1) [...] equipment to enhance the patient's a functional sabianist Ensure adequate nutrition and hydration Sleep: No issues Pain: Continue current regimen for now Discharge planning: Home alone in about a week. I spent 22 minutes for services, including upja-cx-dumn encounter with the patient, discussion of the case, plan of care, and exam; and iixwpan-df-axsc activities, such as reviewing pertinent engagement quality consultant documentation, recent therapynotes, laboratory and radiology studies, and discussion of case with care team including physician, nursing, case briefer, and therapists. More than 50 % of [...] equipment to enhance the patient's a functional sabianist Ensure adequate nutrition and hydration Sleep: No issues Pain: Continue current regimen for now Discharge planning: Home alone in about a week. I spent 22 minutes for services, including kjhb-vg-wpwv encounter with the patient, discussion of the case, plan of care, and exam; and hiixrmg-ev-rzla activities, such as reviewing pertinent engagement quality consultant documentation, recent therapynotes, laboratory and radiology studies, and discussion of case with care team including physician, nursing, case briefer, and therapists. More than 50 % of time was spent on patient/family counseling or coordination ofcare. Patient was personally seen by me, Dr. Mayers, on the day of encounter, reviewed the history and the relevant portions of the chart, including current orders, allied health and engagement quality consultant notes, labs/imaging and performed timmons elements of exam and I formulated the plan of care and facilitated the medical decision making. I completed a substantive portion of this encounter, the medical decision makingportion of this note in its entirety, including Allied health note review, nursing note review, engagement quality consultant note review, discussion with nursing and [...] signed by Elijah Mayers MD> 09/10/23 0932 [facility] Work Phone: 1([phone]) 675-529103-11-2024 Progress note Author Elijah Mayers [facility] September 08, 2023 2:53pm Note Date/Time September 08, 2023 2:[address] [facility] [address] [place] [address] Physiatry(Rehab) Progress Note Signed Patient: Ashley Brown MR#: [id number] : 1940 Acct:[id number] Age/Sex: 82 / F Adm Date: 4 Loc: Room: [address] [place] [address] Type: ADM IN Attending Dr: Elijah Mayers [...] She was given Compazine injection by hospitalist SEWING MACHINE OPERATOR PAPER BAGS which 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 She does [...] % (Auto) 54.1 Lymph % (Auto) 31.1 Whitman % (Auto) 9.5 Eos % (Auto) 4.0 Baso % (Auto) 1.3 Nucleat RBC Rel Count 0.1 Neut # (Auto) 4.0 Lymph # (Auto) 2.3 Whitman # (Auto) 0.7 Eos # (Auto) 0.3 [...] Vicodin] Allergy (Verified 09/02/23 15:58) Vomiting Rocuronium [place]omer[place] Allergy (Unknown, Uncoded 08/20/23 14:19) breathing difficulty [...] mg 09/02/23 14:57 Bisacodyl 10 Mg Supp.Rect MA 09/01/24 14:56 DAILY PRN Constipation Cefadroxil 500 mg 09/02/23 21:00 09/08/23 09:48 Cefadroxil 500 Mg Capsule PO 09/09/23 20:59 500 mg BID ERNIE Administration Diclofenac Sodium 2 gm 09/02/23 18:00 09/08/23 14:25 Diclofenac Sodium 1% Gel 100 Gm Tube TOPICAL 09/01/24 17:59 2 gm QID ERNIE Administration Docusate Sodium 283 mg 09/02/23 14:57 Docusate Enema 283 Mg/5 Ml Enema MA 09/01/24 14:56 DAILY PRN Constipation Docusate Sodium 100 mg 09/05/23 14:06 Docusate 100 Mg Capsule PO 09/03/24 08:59 BID PRN Constipation Enoxaparin Sodium 40 mg 09/03/23 10:35 09/08/23 09:49 Enoxaparin 40 Mg/0.4 Ml Syringe SUBCUT 09/02/24 10:34 40 mg DAILY@1000 ERNIE Administration Home Med 1 each 09/02/23 23:30 [facility] 09/01/24 23:29 PRN PRN zz.Pharmacy Note [...] equipment to enhance the patient's a functional sabianist Ensure adequate nutrition and hydration Sleep: No issues Pain: Continue current regimen for now Discharge planning: Home alone in about a week. I spent 35 minutes for services, including dkrk-uw-suld encounter with the patient, discussion of the case, plan of care, and exam; and bfjooma-pb-rjjy activities, such as reviewing pertinent engagement quality consultant documentation, recent therapynotes, laboratory and radiology studies, and discussion of case with care team including physician, nursing, case briefer, and therapists. More than 50 % of time was spent on patient/family counseling or coordination ofcare. Documented By: Elijah Mayers MD 1449 Signed By: <Electronically signed by Elijah Mayers MD> 09/08/23 1453 [facility] Work Phone: 1(343) 768-512203-11-2024 Progress note Author Elijah Mayers [facility] September 08, 2023 1:35pm Note Date/Time September 05, 2023 1:[address] [facility] [address] [place] [address] Physiatry(Rehab) Progress Note Signed Patient: Ashley Brown MR#: [id number] : 1940 Acct:[id number] Age/Sex: 82 / F Adm Date: 4 Loc: Room: [address] [place] [address] Type: ADM IN Attending Dr: Elijah Mayers [...] She was given Compazine injection by hospitalist SEWING MACHINE OPERATOR PAPER BAGS which 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 She does [...] Vicodin] Allergy (Verified 09/02/23 15:58) Vomiting Rocuronium [place]omer[place] Allergy (Unknown, Uncoded 08/20/23 14:19) breathing difficulty [...] mg 09/02/23 14:57 Bisacodyl 10 Mg Supp.Rect MA 09/01/24 14:56 DAILY PRN Constipation Cefadroxil 500 mg 09/02/23 21:00 09/05/23 10:01 Cefadroxil 500 Mg Capsule PO 500 mg BID ERNIE Administration Diclofenac Sodium 2 gm 09/02/23 18:00 09/05/23 10:02 Diclofenac Sodium 1% Gel 100 Gm Tube TOPICAL 09/01/24 17:59 2 gm QID ERNIE Administration Docusate Sodium 283 mg 09/02/23 14:57 Docusate Enema 283 Mg/5 Ml Enema MA 09/01/24 14:56 DAILY PRN Constipation Docusate Sodium 100 mg 09/04/23 09:00 09/05/23 10:02 Docusate 100 Mg Capsule PO 09/03/24 08:59 Not Given BID ERNIE Enoxaparin Sodium 40 mg 09/03/23 10:35 09/05/23 [...] equipment to enhance the patient's a functional sabianist Ensure adequate nutrition and hydration Sleep: No issues Pain: Continue current regimen for now Discharge planning: Home alone in about a week. I spent 17 minutes for services, including pvvp-af-zfnk encounter with the patient, discussion of the case, plan of care, and exam; and qwhhpef-si-hxoq activities, such as reviewing pertinent engagement quality consultant documentation, recent therapynotes, laboratory and radiology studies, and discussion of case with care team including physician, nursing, case briefer, and therapists. More than 50 % of time was spent on patient/family counseling or coordination ofcare. <Statement entered by Elijah Mayers MD - 09/08/23 13:35> This documentation has been reviewed and approved. Documented By: Heidi Mesa APRN 09/05/23 1 356 Signed By: <Electronically signed by CHASITY Mesa> 09/05/23 1413 <Electronically signed by Elijah Mayers MD> 09/08/23 1335 [facility] Work Phone: 1(364) 303-136303-11-2024 Progress note Author Elijah Mayers [facility] September 08, 2023 1:35pm Note Date/Time September 07, 2023 8:[address] [facility] [address] [place] [address] Physiatry(Rehab) Progress Note Signed Patient: Ashley Brown MR#: [id number] : 1940 Acct:[id number] Age/Sex: 82 / F Adm Date: 4 Loc: 5T Room: 3Q6865-7 Type: ADM IN Attending Dr: Elijah Mayers [...] She was given Compazine injection by hospitalist SEWING MACHINE OPERATOR PAPER BAGS which 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 She does [...] 09/07/23 15:06 09/07/23 15:06 09/07/23 15:06 09/07/23 15:09/07/23 15:06 Narrative: General: Awake, alert, oriented x3 [...] Vicodin] Allergy (Verified 09/02/23 15:58) Vomiting Rocuronium [place]omer[place] Allergy (Unknown, Uncoded 08/20/23 14:19) breathing difficulty [...] mg 09/02/23 14:57 Bisacodyl 10 Mg Supp.Rect MA 09/01/24 14:56 DAILY PRN Constipation Cefadroxil 500 mg 09/02/23 21:00 09/07/23 08:36 Cefadroxil 500 Mg Capsule PO 09/09/23 20:59 500 mg BID ERNIE Administration Diclofenac Sodium 2 gm 09/02/23 18:00 09/07/23 17:28 Diclofenac Sodium 1% Gel 100 Gm Tube TOPICAL 09/01/24 17:59 Not Given QID [facility] Docusate Sodium 283 mg 09/02/23 14:57 Docusate Enema 283 Mg/5 Ml Enema MA 09/01/24 14:56 DAILY PRN Constipation Docusate Sodium 100 mg 09/05/23 14:06 Docusate 100 Mg Capsule PO 09/03/24 08:59 BID PRN Constipation Enoxaparin Sodium 40 mg 09/03/23 10:35 09/07/23 09:53 Enoxaparin 40 Mg/0.4 Ml Syringe SUBCUT 09/02/24 10:34 Not Given DAILY@1000 [facility] Home Med 1 each 09/02/23 [...] equipment to enhance the patient's a functional sabianist Ensure adequate nutrition and hydration Sleep: No issues Pain: Continue current regimen for now Discharge planning: Home alone in about a week. I spent 19 minutes for services, including yhci-dm-drfv encounter with the patient, discussion of the case, plan of care, and exam; and scbshqj-sz-rwtx activities, such as reviewing pertinent engagement quality consultant documentation, recent therapynotes, laboratory and radiology studies, and discussion of case with care team including physician, nursing, case briefer, and therapists. More than 50 % of time was spent on patient/family counseling or coordination ofcare. <Statement entered by Elijah Mayers MD - 09/08/23 13:35> This documentation has been reviewed and approved. Documented By: Heidi Mesa APRN 09/07/23 2 021 Signed By: <Electronically signed by CHASITY Mesa> 09/07/232031 <Electronically signed by Elijah Mayers MD> 09/08/23 1335 [facility] Work Phone: 1(643) 684-425603-07-2024 Progress note Author Elijah Mayers [facility] September 04, 2023 2:42pm Note Date/Time September 04, 2023 2:[address] [facility] [address] [place] [address] Physiatry(Rehab) Progress Note Signed Patient: Ashley Brown MR#: [id number] : 1940 Acct:[id number] Age/Sex: 82 / F Adm Date: 4 Loc: Room: [address] [place] [address] Type: ADM IN Attending Dr: Elijah Mayers [...] She was given Compazine injection by hospitalist SEWING MACHINE OPERATOR PAPER BAGS which 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 She does [...] Vicodin] Allergy (Verified 09/02/23 15:58) Vomiting Rocuronium [place] Allergy (Unknown, Uncoded 08/20/23 14:19) breathing difficulty [...] mg 09/02/23 14:57 Bisacodyl 10 Mg Supp.Rect MA 09/01/24 14:56 DAILY PRN Constipation Cefadroxil 500 mg 09/02/23 21:00 09/04/23 09:26 Cefadroxil 500 Mg Capsule PO 500 mg BID ERNIE Administration Diclofenac Sodium 2 gm 09/02/23 18:00 09/04/23 09:28 Diclofenac Sodium 1% Gel 100 Gm Tube TOPICAL 09/01/24 17:59 2 gm QID ERNIE Administration Docusate Sodium 283 mg 09/02/23 14:57 Docusate Enema 283 Mg/5 Ml Enema MA 09/01/24 14:56 DAILY PRN Constipation Docusate Sodium [...] 09/04/23 09:27 Prednisone 10 Mg Tablet PO 03/06/25 08:59 10 mg DAILY ERNIE Administration Senna/Docusate [...] equipment to enhance the patient's a functional sabianist Ensure adequate nutrition and hydration Sleep: No issues Pain: Continue current regimen for now Discharge planning: Home alone in about a week. I spent 14 minutes for services, including nejm-qv-yohy encounter with the patient, discussion of the case, plan of care, and exam; and spnllzz-sc-fgfm activities, such as reviewing pertinent engagement quality consultant documentation, recent therapynotes, laboratory and radiology studies, and discussion of case with care team including physician, nursing, case briefer, and therapists. More than 50 % of time was spent on patient/family counseling or coordination ofcare. <Statement entered by Elijah Mayers MD - 09/04/23 14:41> I reviewed the history and the relevant portions of the chart, including currentorders, allied health and engagement quality consultant notes, labs/imaging and plan of care as above. Documented By: Heidi Mesa APRN 09/04/23 1 429 Signed By: <Electronically signed by CHASITY Mesa> 09/04/23 1435 <Electronically signed by Elijah Mayers MD> 09/04/23 1442 [facility] Work Phone: 1([phone]) 882-727403-07-2024 Consult note Author Saud Zuniga [facility] September 04, 2023 6:55am Note Date/Time September 03, 2023 2:[address] [facility] [address] [place] [address] Hospitalist Consult Note Signed Patient: Ashley Brown MR#: [id number] : 1940 Acct:[id number] Age/Sex: 82 / F Adm Date: 4 Loc: Room: [address] [place] [address] Type: ADM IN Attending Dr: Elijah Mayers MD Copies to: Odell Harrington,MD Carol Haas, CHASITY Villavicencio Zuniga, MD~ HPI DATE OF CONSULTATION: 09/03/23 REQUESTING [...] History of heart bypass surgery 2020 in [place] History of cardiac catheterization prior to open [...] Vicodin] Allergy (Verified 09/02/23 15:58) Vomiting Rocuronium [place]omer[place] Allergy (Unknown, Uncoded 08/20/23 14:19) breathing difficulty [...] mg PO QPM 08/20/23 [History Confirmed 09/02/23] pjudlddw-jyw-fieid ac 400 mcg-calcium carb 500 mg-vit K1 [...] Dose Route Start Last Admin Trade Name Roxanne PRN Reason Stop Dose Admin Acetaminophen 500 [...] mg 09/02/23 14:57 Bisacodyl 10 Mg Supp.Rect MA 09/01/24 14:56 DAILY PRN Constipation Cefadroxil 500 [...] 14:57 Docusate Enema 283 Mg/5 Ml Enema MA 09/01/24 14:56 DAILY PRN Constipation Enoxaparin Sodium [...] % (Auto) 76.7, Lymph % (Auto) 10.7, Whitman % (Auto) 11.5, Eos % (Auto) 0.8, Baso % (Auto) 0.3, Nucleat RBC Rel Count 0.0, Neut # (Auto) 6.0, Lymph # (Auto) 0.8 L, Whitman # (Auto) 0.9 H, Eos # (Auto) 0.1, Baso # (Auto) 0.0, PHA Creatinine Clear 47.47, Sodium 137, Potassium 4.5, Chloride 101, Carbon Dioxide 28.6, Anion Gap 11.9, BUN 11, Creatinine 0.78, Est GFR (CKD-EPI) > 60.0, [id number] H, Calcium 8.8, Total Bilirubin 0.4, AST [...] signed by Saud Zuniga MD> 09/04/23 0655 [facility] Work Phone: 1(164) 280-656103-06-2024 History and physical note Author Elijah Mayers [facility] September 03, 2023 2:37pm Note Date/Time September 03, 2023 11:[address] [facility] [address] [place] [address] Physiatry (Rehab) H&P Signed Patient: Ashley Brown MR#: [id number] : 1940 Acct:[id number] Age/Sex: 82 / F Adm Date: 4 Loc: Room: 1B7901-2 Type: ADM IN Attending Dr: Elijah Mayers MD Copies to: DO Elijah Wheat MD Elena Turovskaya, APRN~ Date of Service: 09/03/2023 HPI The patient [...] She was given Compazine injection by hospitalist SEWING MACHINE OPERATOR PAPER BAGS which 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 She does [...] social support consisting of friends and family. [facility] Medical History Paroxysmal atrial fibrillation Primary [...] History of heart bypass surgery 2020 in [place] History of cardiac catheterization prior to open [...] Vicodin] Allergy (Verified 09/02/23 15:58) Vomiting Rocuronium [place]omer[place] Allergy (Unknown, Uncoded 08/20/23 14:19) breathing difficulty [...] mg PO QPM 08/20/23 [History Confirmed 09/02/23] mxiucedu-ezq-dhumf ac 400 mcg-calcium carb 500 mg-vit K1 [...] 81 Mg Tablet.Dr) 81 mg PO BID [facility] Stop: 09/01/24 20:59 Last Admin: 09/03/23 09:08 Dose: 81 mg Atorvastatin Calcium (Atorvastatin 10 Mg Tablet) 10 mg PO QHS [facility] Stop: 09/01/24 21:59 Last Admin: 09/02/23 22:50 Dose: 10 mg Bisacodyl (Bisacodyl 10 Mg Supp.Rect) 10 mg MA DAILY PRN PRN Reason: Constipation Stop: 09/01/24 14:56 Cefadroxil (Cefadroxil 500 Mg Capsule) 500 mg PO BID [facility] Last Admin: 09/03/23 09:08 Dose: 500 mg Diclofenac Sodium (Diclofenac Sodium 1% Gel 100 Gm Tube) 2 gm TOPICAL QID [facility] Stop: 09/01/24 17:59 Last Admin: 09/03/23 09:09 Dose: 2 gm Docusate Sodium (Docusate 100 Mg Capsule) 100 mg PO BID PRN PRN Reason: Constipation Stop: 09/01/24 14:56 Docusate Sodium (Docusate Enema 283 Mg/5 Ml Enema) 283 mg MA DAILY PRN PRN Reason: Constipation Stop: 09/01/24 14:56 Enoxaparin Sodium (Enoxaparin 40 Mg/0.4 Ml Syringe) 40 mg SUBCUT DAILY@1000 [facility] Stop: 09/02/24 10:34 Home Med (Home Meds Kept In Pharmacy) 1 each [facility] PRN PRN PRN Reason: dorothea.Pharmacy Note Stop: 09/01/24 23:29 Lactulose (Lactulose 20 Gm/30 Ml Udc) 30 gm PO DAILY PRN PRN Reason: Constipation Stop: 09/01/24 14:56 Losartan Potassium (Losartan 25 Mg Tablet) 25 mg PO QAM [facility] Stop: 09/02/24 08:59 Last Admin: 09/03/23 09:08 Dose: 25 mg Metoprolol Succinate (Metoprolol Succinate 25 Mg Tab.Er.24h) 25 mg PO QPM [facility] Stop: 09/01/24 20:59 Last Admin: 09/02/23 22:50 Dose: 25 mg Multivitamins (Multivitamin 1 Tab Tablet) 1 tab PO DAILY [facility] Stop: 09/02/24 08:59 Last Admin: [...] 17 Gm Powd.Pack) 17 gm PO DAILY [facility] Stop: 09/02/24 08:59 Last Admin: 09/03/23 09:11 Dose: Not Given Prednisone (Prednisone 10 Mg Tablet) 10 mg PO DAILY [facility] Stop: 09/02/24 08:59 Last Admin: 09/03/23 09:08 Dose: 10 mg Senna/Docusate Sodium (Sennosides/Docusate 8.6-50mg 1 Tab Tablet) 2 tab PO DAILY [facility] Stop: 09/02/24 08:59 Last Admin: 09/03/23 09:10 Dose: 2 tab Sennosides (Sennosides 8.6 Mg Tablet) 2 tab PO DAILY@12 PRN PRN Reason: If no BM in 2 days Stop: 09/02/24 11:59 Sodium Chloride (Sodium Chloride 0.9 % 10 Ml Syringe) 0 ml IV-PUSH PRN PRN PRN Reason: Flush Stop: 09/01/24 14:56 Vitamin D (Cholecalciferol 25 Mcg (1,000 Units) Tablet) 50 mcg PO DAILY [facility] Stop: 09/02/24 08:59 Last Admin: 09/03/23 09:08 Dose: 50 mcg Vitamin E (Vitamin E (Dl Tocopheryl Acet) 180 Mg (400 Units) Capsule) 180 mg PODAILY [facility] Stop: 09/02/24 08:59 Last Admin: [...] % (Auto) 76.7 Lymph % (Auto) 10.7 Whitman % (Auto) 11.5 Eos % (Auto) 0.8 Baso % (Auto) 0.3 Nucleat RBC Rel Count 0.0 Neut # (Auto) 6.0 Lymph # (Auto) 0.8 L Whitman # (Auto) 0.9 H Eos # (Auto) [...] 7 Days Expected Discharge Destination: Home Rehabilitation [facility]: 8. Primary Diagnosis: as above Patient?s/Family?s [...] 24 hour daily monitoring and intervention from Mattress Specialist as well as other consulting physicians including internal medicine as well as 24 hour daily downstream biomanufacturing technician nursing - for medical safe / optimal [...] equipment to enhance the patient's a functional sabianist Ensure adequate nutrition and hydration Sleep: No issues Pain: Continue current regimen for now Discharge planning: Home alone in about a week. I spent 44 minutes for services, including fywd-gp-wgfd encounter with the patient, discussion of the case, plan of care, and exam; and ixcotwi-jo-hfrb activities, such as reviewing pertinent engagement quality consultant documentation, recent therapynotes, laboratory and radiology studies, and discussion of case with care team including physician, nursing, case briefer, and therapists. More than 50 % of time was spent on patient/family counseling or coordination ofcare. Patient was personally seen by me, Dr. Mayers, on the day of encounter, within 24 hours of rehab admission, reviewed the history and the relevant portions of the chart, including current orders, allied health and engagement quality consultant notes, labs/imaging and performed timmons elements of exam and I formulated the planof care and facilitated the medical decision making. I completed a substantive portion of this encounter, the medical decision makingportion of this note in its entirety, including Allied health note review, nursing note review, engagement quality consultant note review, discussion with nursing and [...] signed by Elijah Mayers MD> 09/03/23 1437 [facility] Work Phone: 1(520) 254-424602-02-2024 Evaluation note* Encounter Date Diagnosis Assessment Notes [...] DVT, acute blood loss anemia and infection. [facility] Other 01-24-2024 Evaluation note* Encounter Date Diagnosis Assessment Notes Treatment Notes Treatment Clinical Notes Jun, Primary osteoarthritis of right knee (ICD-10 - M17.11) Jun, Other filler leaf cutter long (current) drug therapy (ICD-10 - Z79.899) Jun, Other osteoporosis without current pathological fracture (ICD-10 - M81.8) [facility] Other 01-10-2024 Evaluation note* Encounter Date Diagnosis [...] would likely benefit from acute inpatient rehab. [facility] Other 12-08-2023 Evaluation note* Encounter Date Diagnosis [...] Cleanse w/ soap and water. Mupirocin bid [facility] Other 11-27-2023 Evaluation note* Encounter Date Diagnosis [...] AHA diet plan. Continue secondary prevention measures. 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 Apr, Generalized anxiety disorder (ICD-10 - F41.1) [...] 50% narrowing Continue ASA and Statin therapy. [facility] Other 05-09-2023 NoteCONSULTATION CONSULTATION DATE: 11/05/2022 TO: Bell Marcelo D.O. [...] our patients to inform us about any cees-qkq-urmbwvu medications or herbal remedies/nutritional supplements/alternative remedies. 2. 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 No bleeding complications Sep, Generalized anxiety disorder (ICD-10 - F41.1) Healthy diet, exercise and keep active Sep, Hyperlipidemia type II (ICD-10 - E78.01) Diet and exercise with continued statin therapy. Sep, Primary osteoarthritis of both knees (ICD-10 - M17.0) Quad exercises, ice/heat and Tylenol Orthopedics referring to Pain Management Discussed opiates: Tramadol doesn't help, declines [place] Sep, Bilateral carotid bruits (ICD-10 - R09.89) Carotid US: 50-60% B/L 2018 Carotid US: < 50% 08/2021 < 50% stenosis Continue primary prevention measures Sep, Precordial pain (ICD-10 - R07.2) Sep, High risk medication use (ICD-10 - Z79.899) [employer] Other 04-11-2023 Evaluation note* Encounter Date Diagnosis Assessment Notes Treatment Notes Treatment Clinical Notes Sep, Acute bronchitis due to other specified organisms (ICD-10 - J20.8) Instructed to use Robitussin or Mucinex for cough, saline or Flonase NS for congestion, Tylenol for pain and fever. Sep, ASHD (arteriosclerotic heart disease) (ICD-10 - I25.10) Avoid use of decongestants w/ OTC medications [employer] Other 01-25-2023 Evaluation note* Encounter Date Diagnosis [...] use of Tylenol, Glucosamine and IA injections. [employer] Other Evaluation [facility]No [facility] Other Evaluation note* Diagnosis Onset Date Resolution Status Primary osteoarthritis of right knee acute [facility] Work Phone: Evaluation note* Diagnosis Onset Date [...] Status post total right knee replacement acute [facility] Work Phone: Evaluation note* Diagnosis Onset Date Resolution Status Primary osteoarthritis of right knee acute Acute sinusitis noneactive ASHD (arteriosclerotic heart disease) acute Primary osteoarthritis of right knee acute ASHD (arteriosclerotic heart disease) acute Elevated cholesterol acute Acute sinusitis noneactive Acute blood loss anemia none active Aftercare following right kn ee joint replacement surgery acute [facility] Work Phone: Evaluation note* Diagnosis Onset Date Resolution Status Acute sinusitis noneactive ASHD (arteriosclerotic heart disease) acute Primary osteoarthritis of right knee acute ASHD (arteriosclerotic heart disease) acute Elevated cholesterol acute Acute sinusitis noneactive Acute blood loss anemia none active Aftercare following right kn ee joint replacement surgery acute Aftercare following right kn ee joint replacement surgery acute [facility] Work Phone: Evaluation noteNo assessment information available [facility] Work Phone: evaluation note* Diagnosis Onset Date Resolution Status ASHD (arteriosclerotic heart disease) acute Elevated cholesterol acute GERD (gastroesophageal reflux disease) acute Primary hypertension acute Screening mammography declined acute Medicare annual wellness visit, subsequent noneactive [facility] Work Phone: Evaluation note* Diagnosis Tinea pedis of left foot- Primary Pain due to onychomycosis of toenails of both feet Hallux rigidus of right foot Hav (hallux abducto valgus), left documented in this encounter [facility] HealthcareEvaluation note* Diagnosis Onset Date Resolution Status Aftercare following right knee joint replacement surge ry acute Primary osteoarthritis of left hip acute Acute sinusitis acute ASHD (arteriosclerotic heart disease) acute Elevated cholesterol acute GERD (gastroesophageal reflux disease) acute Obesity acute Primary hypertension acute Primary osteoarthritis of left hip acute ASHD (arteriosclerotic heart disease) acute COVID acute Primary hypertension acute Primary osteoarthritis of left hip acute [facility] Work Phone: Evaluation note* Diagnosis Early dry stage nonexudative age-related macular degeneration of both eyes- Primary PCO (posterior capsular opacification), bilateral Unspecified after-cataract Dry eyes Unspecified tear film insufficiency Blepharitis of upper and lower eyelids of both eyes, unspecified type [facility] - [facility]* Type Description Date [...] Surgical History cholecystectomy Surgical History left TKA [employer] Other [employer] general Narrative - Reported* Type Description Date [...] left TKA Hospitalization History see surgical history [employer] Other Summary Purpose Family History Relationship Condition Age at Onset Recorded Date/T karl family member Unknown father Congestive heart failure Unknown Not Specified Malignant neoplasm of lung Unknown brother Malignant neoplasm of liver Unknown Malignant neoplasm of urinary bladder Unk nown Relationship Condition Age at Onset Recorded Date/T karl family member Unknown father Congestive heart failure Unknown mother Malignant neoplasm of lung Unknown brother Malignant neoplasm of liver Unknown Malignant neoplasm of urinary bladder Unk nown Advance Directives Advance Directive Response Recorded Date/ Time Advance Directives No April 6:19pm Advance Directive Response Recorded Date/ Time Advance Directives No April 7:19pm Advance Directive Response Recorded Date/ Time Advance Directives No August 02, 2024 9:18am Chief Complaint and Reason for Visit Chief [...] RTK Pre Op Sinuses, Cough, Sore Throat- [phone] Knee Pain Knee Pain Knee Pain Right [...] RTK Pre Op Sinuses, Cough, Sore Throat- [phone] Knee Pain Knee Pain Knee Pain Right Knee Osteoarthritis s/p TKA Right Knee Osteoarthritis s/p TKA Right Knee Osteoarthritis s/p TKA Right Knee Osteoarthritis s/p TKA Right Knee Osteoarthritis s/p TKA Right Knee Osteoarthritis s/p TKA Amb Document[place] [facility] [place] [place] Z47.1 - Aftercare following joint replacement surg 4 WK RECHECK Reason for Visit Primary osteoarthrit is of right knee Acute sinusitis ASHD (arteriosclerotic heart disease) Primary osteoarthritis of right knee ASHD (arteriosclerotic heart disease) Elevated cholesterol Acute sinusitis Acute blood loss anemia Aftercare following right knee joint replacement surgery Chief Complaint Sinuses, Cough, Sore Throat- [phone] Knee Pain Knee Pain Knee Pain Right Knee Osteoarthritis s/p TKA Right Knee Osteoarthritis s/p TKA Right Knee Osteoarthritis s/p TKA Right Knee Osteoarthritis s/p TKA Right Knee Osteoarthritis s/p TKA Right Knee Osteoarthritis s/p TKA Amb Documentation [facility] [place] Dis[place] Follow Up Z47.1 - Aftercare [...] 4 Month Follow 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 Update Xrays Per [facility] [place] M25.562 Follow Up F/U From Lt Hip Joint Injection Also Rec z79.899 m17.11m81.8 Chief Complaint MEDICARE WELLNESS 3 MONTHS, L KNEE PAIN M25.552 - Pain in left hip Reason for Visit ASHD (arteriosclerot ic heart disease) Elevated cholesterol GERD (gastroesophageal reflux disease) Primary hypertension Screening mammography declined Medicare annual wellness visit, subsequent Chief Complaint 3 MONTHS, L KNEE YONG N M25.552 - Pain in left hip OP SP LT HIP PAIN REQ INJECTION 3 months f/u cold symptoms 2 MONTHS Reason for Visit Aftercare following right knee joint replacement surgery Primary osteoarthritis of left hip Acute sinusitis ASHD (arteriosclerotic heart disease) Elevated cholesterol GERD (gastroesophageal reflux disease) Obesity Primary hypertension Primary osteoarthritis of left hip ASHD (arteriosclerotic heart disease) COVID Primary hypertension Primary osteoarthritis of left hip Chief Complaint Admit Date cold symptoms April 15, 2024 1 1:33am 2 MONTHS April 29, 2024 1 2:48pm M81.0 Z79.899 May 05, 2024 2 :08pm presurgical clearance, left total hip, d r [place] June 08, 2024 2:08pm sore throat June 24, 2024 9:42am H&P LTHA-INPT July 08, 2024 7: 56am Reason for Visit Admit Date ASHD (arteriosclerotic heart disease) Oc tober 2023 11:33am COVID April 15, 2024 1 1:33am Primary hypertension April 15, 2024 11:33am Primary osteoarthritis of left hip Octob er 2023 12:48pm ASHD (arteriosclerotic heart disease) De 2023 2:08pm Carotid stenosis, left June 08 2:08pm Elevated cholesterol June 08, 2024 2:08pm GERD (gastroesophageal reflux disease) D ecember 2023 2:08pm Primary hypertension June 08, 2024 2:08pm Primary osteoarthritis of left hip Decem lauryn 2023 2:08pm Preop exam for internal medicine Decee r 2023 2:08pm Acute sinusitis June 24, 2024 9:42am ASHD (arteriosclerotic heart disease) De cember 2023 9:42am Primary osteoarthritis of left hip Janua ry 2024 7:56am Chief Complaint Admit Date cold symptoms April 15, 2024 1 1:33am 2 MONTHS April 29, 2024 1 2:48pm M81.0 Z79.899 May 05, 2024 2 :08pm presurgical clearance, left total hip, d r [place] June 08, 2024 2:08pm sore throat June 24, 2024 9:42am H&P LTHA-INPT July 08, 2024 7: 56am Hip pain July 08, 2024 8: 45am Chief Complaint Admit Date cold symptoms April 15, 2024 1 1:33am 2 MONTHS April 29, 2024 1 2:48pm M81.0 Z79.899 May 05, 2024 2 :08pm presurgical clearance, left total hip, d r [place] June 08, 2024 2:08pm sore throat June 24, 2024 9:42am H&P LTHA-INPT July 08, 2024 7: 56am Hip pain July 08, 2024 8: 45am Prolonged July 09, 2024 7 :23am Chief Complaint Admit Date 2 MONTHS April 29, 2024 1 2:48pm M81.0 Z79.899 May 05, 2024 2 :08pm presurgical clearance, left total hip, d r [place] June 08, 2024 2:08pm sore throat June 24, 2024 9:42am H&P LTHA-INPT July 08, 2024 7: 56am Hip pain July 08, 2024 8: 45am Prolonged July 09, 2024 7 :23am Hip pain July 19, 2024 8 :05am Hip pain July 19, 2024 1 0:32am Reason for Visit Admit Date Primary osteoarthritis of left hip Octob er 2023 12:48pm ASHD (arteriosclerotic heart disease) De cem2023 2:08pm Carotid stenosis, left June 08 2:08pm Elevated cholesterol June 08, 2024 2:08pm GERD (gastroesophageal reflux disease) D ecember 2023 2:08pm Primary hypertension June 08, 2024 2:08pm Primary osteoarthritis of left hip Decem lauryn 2023 2:08pm [facility] Acute sinusitis June 24, 2024 9:42am ASHD (arteriosclerotic heart disease) De cember 2023 9:42am Primary osteoarthritis of left hip Junua ry 2024 7:56am Aftercare following right knee joint rep lacement surgery July 19, 2024 8:05am GERD (gastroesophageal reflux disease) J anuary 2024 8:05am Primary osteoarthritis of left hip Junua 2024 8:05am S/P total left hip arthroplasty July 19, 2024 8:05am Chief Complaint Admit Date M81.0 Z79.899 May 05, 2024 2 :08pm presurgical clearance, left total hip, d r [place] June 08, 2024 2:08pm sore throat June 24, 2024 9:42am H&P LTHA-INPT July 08, 2024 7: 56am Hip pain July 08, 2024 8: 45am Prolonged July 09, 2024 7 :23am Hip pain July 19, 2024 8 :05am Hip pain July 19, 2024 1 0:32am Hip pain July 20, 2024 1 1:52am Left Hip Osteoarthritis s/p JOSE July 20, 2024 4:57pm Left Hip Osteoarthritis s/p JOSE July 21, 2024 11:21am Left Hip Osteoarthritis s/p JOSE July 28, 2024 1:34pm Reason for Visit Admit Date ASHD (arteriosclerotic heart disease) 2023 2:08pm Carotid stenosis, left June 08 2:08pm Elevated cholesterol June 08, 2024 2:08pm GERD (gastroesophageal reflux disease) D ec2023 2:08pm Primary hypertension June 08, 2024 2:08pm Primary osteoarthritis of left hip Decem 2023 2:08pm [facility] internal [facility] Acute sinusitis June 24, 2024 9:42am ASHD (arteriosclerotic heart disease) 2023 9:42am Primary osteoarthritis of left hip Junua 2024 7:56am Aftercare following right knee joint rep lacement surgery July 19, 2024 8:05am GERD (gastroesophageal reflux disease) J anuary 2024 8:05am Impaired mobility and activities of joaquin y living July 19, 2024 8:05am Primary osteoarthritis of left hip Janua 2024 8:05am S/P total left hip arthroplasty July 19, 2024 8:05am Impaired mobility and activities of joaquin y living July 20, 2024 4:57pm Insomnia July 20, 2024 4 :57pm Obesity July 20, 2024 4 :57pm Postoperative hematoma July 20 4:57pm Primary hypertension July 20, 2024 4:57pm S/P total left hip arthroplasty July 20, 2024 4:57pm Chief Complaint Admit Date presurgical clearance, left total hip, d r [place] June 08, 2024 2:08pm sore throat June 24, 2024 9:42am H&P LTHA-INPT July 08, 2024 7: 56am Hip pain July 08, 2024 8: 45am Prolonged July 09, 2024 7 :23am Hip pain July 19, 2024 8 :05am Hip pain July 19, 2024 1 0:32am Hip pain July 20, 2024 1 1:52am Left Hip Osteoarthritis s/p JOSE July 20, 2024 4:57pm Left Hip Osteoarthritis s/p JOSE July 21, 2024 11:21am Left Hip Osteoarthritis s/p JOSE July 28, 2024 1:34pm Amb Documentation August 03, 2024 9 :34am [facility] PT 2 WK POST OP LTHA August 09, 2024 2:51pm Reason for Visit Admit Date ASHD (arteriosclerotic heart disease) De cem2023 2:08pm Carotid stenosis, left June 08 2:08pm Elevated cholesterol June 08, 2024 2:08pm GERD (gastroesophageal reflux disease) D ecember 2023 2:08pm Primary hypertension June 08, 2024 2:08pm Primary osteoarthritis of left hip Decem lauryn 2023 2:08pm Preop exam for internal medicine Decee r 2023 2:08pm Acute sinusitis June 24, 2024 9:42am ASHD (arteriosclerotic heart disease) De cem2023 9:42am Primary osteoarthritis of left hip Junua ry 2024 7:56am Aftercare following right knee joint rep lacement surgery July 19, 2024 8:05am GERD (gastroesophageal reflux disease) J anuary 2024 8:05am Impaired mobility and activities of joaquin y living July 19, 2024 8:05am Primary osteoarthritis of left hip Janua ry 2024 8:05am S/P total left hip arthroplasty July 19, 2024 8:05am Impaired mobility and activities of joaquin y living July 20, 2024 4:57pm Insomnia July 20, 2024 4 :57pm Obesity July 20, 2024 4 :57pm Postoperative hematoma July 20 4:57pm Primary hypertension July 20, 2024 4:57pm S/P total left hip arthroplasty July 20, 2024 4:57pm Primary osteoarthritis of left hip Febru jairo 2024 2:51pm S/P total left hip arthroplasty August 09, 2024 2:51pm Chief Complaint Admit Date presurgical clearance, left total hip, d r [place] June 08, 2024 2:08pm sore throat June 24, 2024 9:42am H&P LTHA-INPT July 08, 2024 7: 56am Hip pain July 08, 2024 8: 45am Prolonged July 09, 2024 7 :23am Hip pain July 19, 2024 8 :05am Hip pain July 19, 2024 1 0:32am Hip pain July 20, 2024 1 1:52am Left Hip Osteoarthritis s/p JOSE July 20, 2024 4:57pm Left Hip Osteoarthritis s/p JOSE July 21, 2024 11:21am Left Hip Osteoarthritis s/p JOSE July 28, 2024 1:34pm Amb Documentation August 03, 2024 9 :34am [facility] PT 2 WK POST OP LTHA August 09, 2024 2:51pm [facility] [place] f/[place], left total hip August 16, 2024 1:25pm Reason for Visit Admit Date ASHD (arteriosclerotic heart disease) 2023 2:08pm Carotid stenosis, left June 08 2:08pm Elevated cholesterol June 08, 2024 2:08pm Primary hypertension June 08, 2024 2:08pm Primary osteoarthritis of left hip Decem 2023 2:08pm GERD (gastroesophageal reflux disease) D ecember 2023 2:08pm Preop exam for internal medicine [facility] r 2023 2:08pm ASHD (arteriosclerotic heart disease) 2023 9:42am Acute sinusitis June 24, 2024 9:42am Primary osteoarthritis of left hip 2024 7:56am Primary osteoarthritis of left hip 2024 8:05am S/P total left hip arthroplasty July 19, 2024 8:05am Aftercare following right knee joint rep lacement surgery July 19, 2024 8:05am GERD (gastroesophageal reflux disease) J anuary 2024 8:05am Impaired mobility and activities of joaquin y living July 19, 2024 8:05am Obesity July 20, 2024 4 :57pm Postoperative hematoma July 20 4:57pm Primary hypertension July 20, 2024 4:57pm S/P total left hip arthroplasty July 20, 2024 4:57pm Impaired mobility and activities of joaquin y living July 20, 2024 4:57pm Insomnia July 20, 2024 4 :57pm Primary osteoarthritis of left hip Febru jairo 2024 2:51pm S/P total left hip arthroplasty August 09, 2024 2:51pm ASHD (arteriosclerotic heart disease) Fe bruary 2024 1:25pm Chest wall mass August 16, 2024 1:25pm Elevated cholesterol August 16, 2024 1:25pm Obesity August 16, 2024 1:25pm Primary hypertension August 16, 2024 1:25pm S/P total left hip arthroplasty August 16, 2024 1:25pm Acute blood loss anemia August 16 025 1:25pm Additional Source Comments INFORMATION SOURCE (unrecogn ized section and content) DATE CREATED AUTHOR 03/21/2021 [facility] DATE CREATED AUTHOR AUTHOR'S ORGANIZ ATION 12/06/2022 [facility] DATE CREATED AUTHOR AUTHOR'S ORGANIZ ATION 04/18/2024 [facility] EPIC DATE CREATED AUTHOR AUTHOR'S ORGANIZ ATION 07/23/2024 [facility] DATE CREATED AUTHOR AUTHOR'S ORGANIZ ATION 08/04/2024 [facility] REASON FOR VISIT (unrecogniz ed section and content) Reason Comments Eye Exam Reason Comments Toenail Care Non DM Nails Lab resultsPre-Op ClearanceF/U FROM LT HIP JOINT INJECTION ALSO RECHECK RIGHT KNEE WANTS TO [id number] coldATB wantedNP LT KNEE PAIN UPDATE XRAYS PER [facility], SCHED AUTH APPROVED PREVIOUS TKA4 month Follow upPT order3 month Follow upSinus Infection/Cough-COVID Negative [phone] Care Teams (unrecognized sec tion and content) Team Status: Active Member Role Status Dates Odell Harrington DO Primary Care Provider Active Team Status: Inactive Member Role Status Dates Odell Harrington DO Attending Provider Active Sta rt: June 06, 2023 End: June 06, 2023 Team Status: Inactive Member Role Status Dates Magno iPchardo II, MD Attending Provider Active Start: July [...] Role Status Armand Harrington DO Primary Care Provide r, Attending [...] Ha , GLO Other Provider Active Start: Maddy vazquez 2023 End: September 02, 2023 Bernie Bell RN Other Provider Active Star t: September 01, 2023 End: September 02, 2023 Cecelia Villegas RN Other Provider Active Start : September 01, 2023 End: September 02, 2023 Zina Kunz RN Other Provider Active Start: Maddy vazquez 2023 End: September 02, 2023 Carline Cardozo RN Other Provider Active Start: [facility] 2023 End: September 02, 2023 Annalisa Gar MD Other Provider Active Start: September 01, 2023 End: September 02, 2023 Foster Santiago MD Other Provider Active Start: [facility] 2023 End: September 02, 2023 Lulú [...] Raymond Hilton MD Other Provider Active Start: [facility] 2023 End: September 02, 2023 Patricia Mayberry APRN Other Provider Active Start: September 01, 2023 End: September 02, 2023 Warren Mera MD Other Provider Active Start: September 01, 2023 End: September 02, 2023 Flavio Woods MD Other Provider Active Start: [facility] 2023 End: September 02, 2023 Saud [...] Allen Andres MD Other Provider Active Start: [facility] 2023 End: September 02, 2023 GERRY Mendoza Other Provider Active St [...] Lc Lima MD Other Provider Active Start: [facility] 2023 End: September 02, 2023 Mati Alberto MD Other Provider Active Star t: September 01, 2023 End: September 02, 2023 Farhan Smith MD Other Provider Active Start: [facility] 2023 End: September 02, 2023 Rakel Regan , Other Provider Active Start: [facility] 2023 End: September 02, 2023 Silverio Irizarry , DO Other Provider [...] Tushar Cohen MD Other Provider Active Start: [facility] 2023 End: September 02, 2023 Vidal [...] Martina Thakkar RN Other Provider Active Start: [facility] 2023 End: September 02, 2023 Dilip Laird MD Other Provider Active Start: [facility] 2023 End: September 02, 2023 Team [...] Ha , GLO Other Provider Active Start: [facility] 2023 Bernie Bell , GLO Other Provider Active Star t: September 01, 2023 Cecelia Villegas RN Other Provider Active Start : September 01, 2023 Zina uKnz , GLO Other Provider Active Start: [facility] 2023 Carline Cardozo , GLO Other Provider Active Start: [facility] 2023 Annalisa Gar MD Other Provider Active Start: September 01, 2023 Foster Santiago MD Other Provider Active Start: [facility] 2023 Lulú Garcia APRN Other Provider Active Start: September 01, 2023 Genesis Andre DO Other Provider Active Start : September 01, 2023 Bhupinder San MD Other Provider Active Start : September 01, 2023 Ron Guajardo DO Other Provider Active Start: September 01, 2023 Gilbert Lanier MD Other Provider Active Start: September 01, 2023 Peri rGubbs MD Attending Provider, Other Provider Active Start: September 01, 2023 Raymond Hilton MD Other Provider Active Start: [facility] 2023 Patricia Mayberry APRN Other Provider Active Start: September 01, 2023 Warren Mera MD Other Provider Active Start: September 01, 2023 Flavio Woods MD Other Provider Active Start: [facility] 2023 Saud Zuniga MD Other Provider Active Start: September 01, 2023 Benjamin Plasencia MD Other Provider Active Start: September 01, 2023 Roger Carranza DO Other Provider Active Start: September 01, 2023 Ricardo Souza MD Other Provider Active Start: [facility] 2023 Allen Andres MD Other Provider Active Start: [facility] 2023 Lashonda Earl NP-C Other Provider Active St art: September 01, 2023 Adjondi M Born , BSW Other Provider Active Star t: September 01, 2023 Huy Rosenbaum MD Other Provider Active Start: September 01, 2023 Augie Ontiveros MD Other Provider Active Start: [facility] 2023 Lc Lima MD Other Provider Active Start: [facility] 2023 Mati Alberto MD Other Provider Active Star t: September 01, 2023 Farhan Smith MD Other Provider Active Start: [facility] 2023 Rakel Regan , Other Provider [...] Tushar Cohen MD Other Provider Active Start: [facility] 2023 Vidal Akins MD Other Provider Active S tart: September 01, 2023 Aiden Stoll , Other Provider Active Star t: September 01, 2023 Lucas Carrillo DO Other Provider Active Start: September 01, 2023 Jordy Lima MD Other Provider Active Start: September 01, 2023 Martina Thakkar RN Other Provider Active Start: [facility] 2023 Dilip Laird MD Other Provider Active Start: [facility] 2023 Team Status: Active Member Role Status Dates Odell Harrington DO Primary Care Provider Active Start: September 02, 2023 Magno Pichardo II, MD Admit Provider, Other Provider Active Start: September 02, 2023 Ana Berry RN Other Provider Active Star t: September 02, 2023 Nuha Mcmahan RN Other Provider Active Start : September 02, 2023 Anne Ha , GLO Other Provider Active Start: [facility] 2023 Bernie Bell RN Other Provider Active Star t: September 02, 2023 Cecelia Villegas RN Other Provider Active Start : September 02, 2023 Zina Kunz , GLO Other Provider Active Start: [facility] 2023 Carline Cardozo , GLO Other Provider Active Start: [facility] 2023 Annalisa Gar MD Other Provider Active Start: September 02, 2023 Foster Santiago MD Other Provider Active Start: [facility] 2023 Lulú Garcia APRN Other Provider Active Start: September 02, 2023 Genesis Andre , Other Provider Active Start : September 02, 2023 Bhupinder San MD Other Provider Active Start : September 02, 2023 Ron Guajardo , Other Provider Active Start: September 02, 2023 Gilbert Lanier MD Other Provider Active Start: September 02, 2023 Peri Grubbs MD Other Provider Active Start : September 02, 2023 Raymond Hilton MD Other Provider Active Start: [facility] 2023 Patricia Mayberry APRN Other Provider Active Start: September 02, 2023 Warren Mera MD Other Provider Active Start: September 02, 2023 Flavio Woods MD Other Provider Active Start: [facility] 2023 Saud Zuniga MD Other Provider Active Start: September 02, 2023 Benjamin Plasencia MD Other Provider Active Start: September 02, 2023 Roger Carranza DO Other Provider Active Start: September 02, 2023 Ricardo Souza MD Other Provider Active Start: [facility] 2023 Allen Andres MD Other Provider Active Start: [facility] 2023 Lashonda Earl NP-C Other Provider Active St art: September 02, 2023 Sloane Martin APRN Other Provider Active Star t: September 02, 2023 Huy Rosenbaum MD Other Provider Active Start: September 02, 2023 Augie Ontiveros MD Other Provider Active Start: [facility] 2023 Lc Lima MD Other Provider Active Start: [facility] 2023 Mati Alberto MD Other Provider Active Star t: September 02, 2023 Farhan Smith MD Other Provider Active Start: [facility] 2023 Rakel Regan DO Other Provider [...] Tushar Cohen MD Other Provider Active Start: [facility] 2023 Vidal Akins MD Other Provider Active S tart: September 02, 2023 Aiden Stoll , DO Other Provider Active Star t: September 02, 2023 Lucas Carrillo , Other Provider Active Start: September 02, 2023 Jordy Lima MD Other Provider Active Start: September 02, 2023 Martina Thakkar RN Other Provider Active Start: [facility] 2023 Dilip Laird MD Attending Provider, [...] Ha , GLO Other Provider Active Start: [facility] 2023 End: September 15, 2023 Bernie Bell , GLO Other Provider Active Star t: September 02, 2023 End: September 15, 2023 Cecelia Villegas , GLO Other Provider Active Start : September 02, 2023 End: September 15, 2023 Zina Kunz RN Other Provider Active Start: [facility] 2023 End: September 15, 2023 Carline Cardozo RN Other Provider Active Start: [facility] 2023 End: September 15, 2023 Annalisa Gar MD Other Provider Active Start: September 02, 2023 End: September 15, 2023 Foster Santiago MD Other Provider Active Start: [facility] 2023 End: September 15, 2023 Lulú [...] Raymond Hilton MD Other Provider Active Start: [facility] 2023 End: September 15, 2023 Patricia Mayberry APRN Other Provider Active Start: September 02, 2023 End: September 15, 2023 Warren Mera MD Other Provider Active Start: September 02, 2023 End: September 15, 2023 Flavio Woods MD Other Provider Active Start: [facility] 2023 End: September 15, 2023 Saud [...] Allen Andres MD Other Provider Active Start: [facility] 2023 End: September 15, 2023 GERRY Mendoza Other Provider Active St art: September 02, [...] Lc Lima MD Other Provider Active Start: [facility] 2023 End: September 15, 2023 Mati Alberto MD Other Provider Active Star t: September 02, 2023 End: September 15, 2023 Farhan Smith MD Other Provider Active Start: [facility] 2023 End: September 15, 2023 Rakel [...] Tushar Cohen MD Other Provider Active Start: [facility] 2023 End: September 15, 2023 Vidal Akins MD Other Provider Active S tart: September 02, 2023 End: September 15, 2023 Aiden Stoll , Other Provider Active Star t: September 02, 2023 End: September 15, 2023 Jordy Lima MD Other Provider Active Start: September 02, 2023 End: September 15, 2023 Martina Thakkar RN Other Provider Active Start: [facility] 2023 End: September 15, 2023 Team [...] Ha , GLO Other Provider Active Start: [facility] 2023 Bernie Bell RN Other Provider Active Star t: September 03, 2023 Cecelia Villegas , GLO Other Provider Active Start : September 03, 2023 Zina Kunz , GLO Other Provider Active Start: [facility] 2023 Carline Cardozo RN Other Provider Active Start: [facility] 2023 Annalisa Gar MD Other Provider Active Start: September 03, 2023 Foster Santiago MD Other Provider Active Start: [facility] 2023 Lulú Garcia APRN Other Provider [...] Raymond Hilton MD Other Provider Active Start: [facility] 2023 Patricia Mayberry APRN Other Provider Active Start: September 03, 2023 Warren Mera MD Other Provider Active Start: September 03, 2023 Flavio Woods MD Other Provider Active Start: [facility] 2023 Saud Zuniga MD Other Provider Active Start: September 03, 2023 Benjamin Plasencia MD Other Provider Active Start: September 03, 2023 Roger Carranza DO Other Provider Active Start: September 03, 2023 Ricardo Souza MD Other Provider Active Start: [facility] 2023 Allen Andres MD Other Provider Active Start: [facility] 2023 GERRY Mendoza Other Provider Active St art: September 03, 2023 Sloane Martin APRN Other Provider Active Star t: September 03, 2023 Huy Rosenbaum MD Other Provider Active Start: September 03, 2023 Augie Ontiveros MD Other Provider Active Start: [facility] 2023 Lc Lima MD Other Provider Active Start: [facility] 2023 Mait Alberto MD Other Provider Active Star t: September 03, 2023 Farhan Smith MD Other Provider Active Start: [facility] 2023 Rakel Regan , DO Other [...] Tushar Cohen MD Other Provider Active Start: [facility] 2023 Vidal Akins MD Other Provider Active S tart: September 03, 2023 Aiden Stoll , Other Provider Active Star t: September 03, 2023 Lucas Carrillo , Other Provider Active Start: September 03, 2023 Jordy Lima MD Other Provider Active Start: September 03, 2023 Martina Thakkar RN Other Provider Active Start: [facility] 2023 Heidi Mesa APRN Attending Provider [...] Ha , GLO Other Provider Active Start: [facility] 2023 Bernie Bell RN Other Provider Active Star t: September 03, 2023 Cecelia Villegas RN Other Provider Active Start : September 03, 2023 Zina Kunz RN Other Provider Active Start: [facility] 2023 Carline Cardozo RN Other Provider Active Start: [facility] 2023 Annalisa Gar MD Other Provider Active Start: September 03, 2023 Foster Santiago MD Other Provider Active Start: [facility] 2023 Lulú Garcia APRN Other Provider [...] Raymond Hilton MD Other Provider Active Start: [facility] 2023 Patricia Mayberry APRN Other Provider Active Start: September 03, 2023 Warren Mera MD Other Provider Active Start: September 03, 2023 Flavio Woods MD Other Provider Active Start: [facility] 2023 Saud Zuniga MD Other Provider Active Start: September 03, 2023 Benjamin Plasencia MD Other Provider Active Start: September 03, 2023 Roger Carranza , Other Provider Active Start: September 03, 2023 Ricardo Souza MD Other Provider Active Start: [facility] 2023 Allen Andres MD Other Provider Active Start: [facility] 2023 GERRY Mendoza Other Provider Active St art: September 03, 2023 Sloane Martin APRN Other Provider Active Star t: September 03, 2023 Huy Rosenbaum MD Other Provider Active Start: September 03, 2023 Augie Ontiveros MD Other Provider Active Start: [facility] 2023 Lc Lima MD Other Provider Active Start: [facility] 2023 Mati Alberto MD Other Provider Active Star t: September 03, 2023 Farhan Smith MD Other Provider Active Start: [facility] 2023 Rakel Regan , Other Provider [...] Tushar Cohen MD Other Provider Active Start: [facility] 2023 Vidal Akins MD Other Provider Active S tart: September 03, 2023 Aiden Stoll , DO Other Provider Active Star t: September 03, 2023 Lucas Carrillo , Other Provider Active Start: September 03, 2023 Jordy Lima MD Other Provider Active Start: September 03, 2023 Martina Thakkar , GLO Other Provider Active Start: [facility] 2023 Team Status: Active Member Role [...] Ha , GLO Other Provider Active Start: [facility] 2023 Bernie Bell , GLO Other Provider Active Star t: September 10, 2023 Cecelia Villegas , GLO Other Provider Active Start : September 10, 2023 Zina Kunz , GLO Other Provider Active Start: [facility] 2023 Calrine Cardozo , GLO Other Provider Active Start: [facility] 2023 Annalisa Gar MD Other Provider Active Start: September 10, 2023 Foster Santiago MD Other Provider Active Start: [facility] 2023 Lulú Garcia APRN Other Provider [...] Raymond Hilton MD Other Provider Active Start: [facility] 2023 Patricia Mayberry APRN Other Provider Active Start: September 10, 2023 Warren Mera MD Other Provider Active Start: September 10, 2023 Flavio Woods MD Other Provider Active Start: [facility] 2023 Saud Zuniga MD Other Provider Active Start: September 10, 2023 Benjamin Plasencia MD Other Provider Active Start: September 10, 2023 Roger Carranza DO Other Provider Active Start: September 10, 2023 Ricardo Souza MD Other Provider Active Start: [facility] 2023 Allen Andres MD Other Provider Active Start: [facility] 2023 Lashonda Earl , SEWING MACHINE OPERATOR PAPER BAGS-C Other Provider Active St art: September 10, 2023 Sloane Martin APRN Other Provider Active Star t: September 10, 2023 Huy Rosenbaum MD Other Provider Active Start: September 10, 2023 Augie Ontiveros MD Other Provider Active Start: [facility] 2023 Lc Lima MD Other Provider Active Start: [facility] 2023 Mati Alberto MD Other Provider Active Star t: September 10, 2023 Farhan Smith MD Other Provider Active Start: [facility] 2023 Rakel Regan DO Other Provider Active Start: [facility] 2023 Silverio Irizarry DO Other Provider Active Start : September 10, 2023 Jean-Pierre Mariee , Other Provider Active Sta rt: September 10, 2023 Carol Holland APRN Other Provider Active Start: September 10, 2023 Pj Knapp DO Other Provider Active Start: September 10, 2023 Paula Ramirez MD Other Provider Active Sta rt: September 10, 2023 Antonella Moore APRN Other Provider Active Start : September 10, 2023 Chetna Zaragoza APRN Other Provider Active St art: September 10, 2023 Tushar Cohen MD Other Provider Active Start: [facility] 2023 Vidal Akins MD Other Provider Active S tart: September 10, 2023 Aiden Stoll , DO Other Provider Active Star t: September 10, 2023 Lucas Carrillo , Other Provider Active Start: September 10, 2023 Jordy Lima MD Other Provider Active Start: September 10, 2023 Martina Thakkar , GLO Other Provider Active Start: [facility] 2023 Team Status: Active Member Role Status Armand Harrington , Primary Care Provider Active Start: September 11, 2023 Elijah Mayers MD Admit [facility], Other Provider Active Start: September 11, 2023 Ana Berry , GLO Other Provider Active Star t: September 11, 2023 Nuha Mcmahan , GLO Other Provider Active Start : September 11, 2023 Anne Ha RN Other Provider Active Start: [facility] 2023 Bernie Bell RN Other Provider Active Star t: September 11, 2023 Cecelia Villegas RN Other Provider Active Start : September 11, 2023 Zina Kunz RN Other Provider Active Start: [facility] 2023 Carline Cardozo RN Other Provider Active Start: [facility] 2023 Annalisa Gar MD Other Provider Active Start: September 11, 2023 Foster Santiago MD Other Provider Active Start: [facility] 2023 Lulú Garcia APRN Other Provider [...] Raymond Hilton MD Other Provider Active Start: [facility] 2023 Patricia Mayberry APRN Other Provider Active Start: September 11, 2023 Warren Mera MD Other Provider Active Start: September 11, 2023 Flavio Woods MD Other Provider Active Start: [facility] 2023 Saud Zuniga MD Other Provider Active Start: September 11, 2023 Benjamin Plasencia MD Other Provider Active Start: September 11, 2023 Roger Carranza , Other Provider Active Start: September 11, 2023 Ricardo Souza MD Other Provider Active Start: [facility] 2023 Allen Andres MD Other Provider Active Start: [facility] 2023 Lashonda Eral , SEWING MACHINE OPERATOR PAPER BAGS-C Other Provider Active St art: September 11, 2023 Sloane Martin APRN Other Provider Active Star t: September 11, 2023 Huy Rosenbaum MD Other Provider Active Start: September 11, 2023 Augie Ontiveros MD Other Provider Active Start: [facility] 2023 Lc Lima MD Other Provider Active Start: [facility] 2023 Mati Alberto MD Other Provider Active Star t: September 11, 2023 Farhan Smith MD Other Provider Active Start: [facility] 2023 Rakel Regan , Other Provider [...] Tushar Cohen MD Other Provider Active Start: [facility] 2023 Vidal Akins MD Other Provider Active S tart: September 11, 2023 Aiden Stoll , DO Other Provider Active Star t: September 11, 2023 Lucas Carrillo , Other Provider Active Start: September 11, 2023 Jordy Lima MD Other Provider Active Start: September 11, 2023 Martina Thakkar RN Other Provider Active Start: [facility] 2023 Magno Pichardo II, MD Attending Provider Active Start: September 11, 2023 Team Status: Active Member Role Status Armand Harrington DO Primary Care Provider Active Start: September 13, 2023 Elijah Mayers MD Admit [facility], Other Provider Active Start: September 13, 2023 Ana Berry , LGO Other Provider Active Star t: September 13, 2023 Nuha Mcmahan , GLO Other Provider Active Start : September 13, 2023 Anne Ha , GLO Other Provider Active Start: [facility] 2023 Bernie Bell RN Other Provider Active Star t: September 13, 2023 Cecelia Villegas , GLO Other Provider Active Start : September 13, 2023 Zina Kunz , GLO Other Provider Active Start: [facility] 2023 Carline Cardozo RN Other Provider Active Start: [facility] 2023 Annalisa Gar MD Other Provider Active Start: September 13, 2023 Foster Santiago MD Other Provider Active Start: [facility] 2023 Lulú Garcia APRN Other Provider [...] Raymond Hilton MD Other Provider Active Start: [facility] 2023 Patricia Mayberry APRN Attending María packer, Other Provider Active Start: September 13, 2023 Warren Mera MD Other Provider Active Start: September 13, 2023 Flavio Woods MD Other Provider Active Start: [facility] 2023 Saud Zuniga MD Other Provider Active Start: September 13, 2023 Benjamin Plasencia MD Other Provider Active Start: September 13, 2023 Roger Craranza DO Other Provider Active Start: September 13, 2023 Ricardo Souza MD Other Provider Active Start: [facility] 2023 Allen Andres MD Other Provider Active Start: [facility] 2023 Lashonda Earl , SEWING MACHINE OPERATOR PAPER BAGS-C Other Provider Active St art: September 13, 2023 Sloane Martin APRN Other Provider Active Star t: September 13, 2023 Huy Rosenbaum MD Other Provider Active Start: September 13, 2023 Augie Ontiveros MD Other Provider Active Start: [facility] 2023 Lc Lima MD Other Provider Active Start: [facility] 2023 Mati Alberto MD Other Provider Active Star t: September 13, 2023 Farhan Smith MD Other Provider Active Start: [facility] 2023 Rakel Regan , DO Other [...] Tushar Cohen MD Other Provider Active Start: [facility] 2023 Vidal Akins MD Other Provider Active S tart: September 13, 2023 Aiden Stoll , Other Provider Active Star t: September 13, 2023 Jordy Lima MD Other Provider Active Start: September 13, 2023 Martina Thakkar RN Other Provider Active Start: [facility] 2023 Team Status: Active Member Role Status Dates Odell Harrington DO Primary Care Provider Active Start: September 03, 2023 End: September 15, 2023 Elijah Mayers MD Ad[facility], Other Provider Active Start: September 03, 2023 End: September 15, 2023 Ana Berry RN Other Provider Active Star t: September 03, 2023 End: September 15, 2023 Nuha Mcmahan RN Other Provider Active Start : September 03, 2023 End: September 15, 2023 Anne Ha , GLO Other Provider Active Start: [facility] 2023 End: September 15, 2023 Bernie Bell , GLO Other Provider Active Star t: September 03, 2023 End: September 15, 2023 Cecelia Villegas RN Other Provider Active Start : September 03, 2023 End: September 15, 2023 Zina Kunz , GLO Other Provider Active Start: [facility] 2023 End: September 15, 2023 Carline Cardozo RN Other Provider Active Start: [facility] 2023 End: September 15, 2023 Annalisa Gar MD Other Provider Active Start: September 03, 2023 End: September 15, 2023 Foster Santiago MD Other Provider Active Start: [facility] 2023 End: September 15, 2023 Lulú [...] Raymond Hilton MD Other Provider Active Start: [facility] 2023 End: September 15, 2023 Patricia Mayberry APRN Other Provider Active Start: September 03, 2023 End: September 15, 2023 Warren Mera MD Other Provider Active Start: September 03, 2023 End: September 15, 2023 Flavio Woods MD Other Provider Active Start: [facility] 2023 End: September 15, 2023 Saud [...] Allen Andres MD Other Provider Active Start: [facility] 2023 End: September 15, 2023 Lashonda Earl , SEWING MACHINE OPERATOR PAPER BAGS-C Other Provider Active St art: September 03, [...] Lc Lima MD Other Provider Active Start: [facility] 2023 End: September 15, 2023 Mati Alberto MD Other Provider Active Star t: September 03, 2023 End: September 15, 2023 Farhan Smith MD Other Provider Active Start: [facility] 2023 End: September 15, 2023 Rakel [...] Tushar Cohen MD Other Provider Active Start: [facility] 2023 End: September 15, 2023 Vidal [...] Martina Thakkar RN Other Provider Active Start: [facility] 2023 End: September 15, 2023 Heidi [...] Ha , GLO Other Provider Active Start: [facility] 2023 End: September 15, 2023 Bernie Bell , GLO Other Provider Active Star t: September 03, 2023 End: September 15, 2023 Cecelia Villegas , GLO Other Provider Active Start : September 03, 2023 End: September 15, 2023 Zina Kunz , GLO Other Provider Active Start: [facility] 2023 End: September 15, 2023 Carline Cardozo RN Other Provider Active Start: [facility] 2023 End: September 15, 2023 Annalisa Gar MD Other Provider Active Start: September 03, 2023 End: September 15, 2023 Foster Santiago MD Other Provider Active Start: [facility] 2023 End: September 15, 2023 Lulú [...] Raymond Hilton MD Other Provider Active Start: [facility] 2023 End: September 15, 2023 Patricia Mayberry APRN Other Provider Active Start: September 03, 2023 End: September 15, 2023 Warren Mera MD Other Provider Active Start: September 03, 2023 End: September 15, 2023 Flavio Woods MD Other Provider Active Start: [facility] 2023 End: September 15, 2023 Saud [...] Allen Andres MD Other Provider Active Start: [facility] 2023 End: September 15, 2023 Lashnoda Earl NP-Magaly Other Provider Active St art: September 03, [...] Lc Lima MD Other Provider Active Start: [facility] 2023 End: September 15, 2023 Mati Alberto MD Other Provider Active Star t: September 03, 2023 End: September 15, 2023 Farhan Smith MD Other Provider Active Start: [facility] 2023 End: September 15, 2023 Rakel Regan , DO Other Provider Active Start: [facility] 2023 End: September 15, 2023 Silverio Irizarry [...] Tushar Cohen MD Other Provider Active Start: [facility] 2023 End: September 15, 2023 Vidal [...] Martina Thakkar RN Other Provider Active Start: [facility] 2023 End: September 15, 2023 Team [...] Anne Ha RN Other Provider Active Start: [facility] 2023 End: September 15, 2023 Bernie Bell RN Other Provider Active Star t: September 10, 2023 End: September 15, 2023 Cecelia Villegas RN Other Provider Active Start : September 10, 2023 End: September 15, 2023 Zina Kunz RN Other Provider Active Start: [facility] 2023 End: September 15, 2023 Carline Cardozo RN Other Provider Active Start: [facility] 2023 End: September 15, 2023 Annalisa Gar MD Other Provider Active Start: September 10, 2023 End: September 15, 2023 Foster Santiago MD Other Provider Active Start: [facility] 2023 End: September 15, 2023 Lulú [...] Raymond Hilton MD Other Provider Active Start: [facility] 2023 End: September 15, 2023 Patricia Mayberry APRN Other Provider Active Start: September 10, 2023 End: September 15, 2023 Warren Mera MD Other Provider Active Start: September 10, 2023 End: September 15, 2023 Flavio Woods MD Other Provider Active Start: [facility] 2023 End: September 15, 2023 Saud Zuniga MD Other Provider Active Start: September 10, 2023 End: September 15, 2023 Benjamin Plasencia MD Other Provider Active Start: September 10, 2023 End: September 15, 2023 Roger Carranza , Other Provider Active Start: September 10, 2023 End: September 15, 2023 Ricardo Souza MD Other Provider Active Start: [facility] 2023 End: September 15, 2023 Allen Andres MD Other Provider Active Start: [facility] 2023 End: September 15, 2023 Lashonda Earl , SEWING MACHINE OPERATOR PAPER BAGS-C Other Provider Active St art: September 10, [...] Lc Lima MD Other Provider Active Start: [facility] 2023 End: September 15, 2023 Mati Alberto MD Other Provider Active Star t: September 10, 2023 End: September 15, 2023 Farhan Smith MD Other Provider Active Start: [facility] 2023 End: September 15, 2023 Rakel [...] Tushar Cohen MD Other Provider Active Start: [facility] 2023 End: September 15, 2023 Vidal [...] Thakkar , GLO Other Provider Active Start: [facility] 2023 End: September 15, 2023 Team Status: Active Member Role Status Armand Harrington DO Primary Care Provider Active Start: September 11, 2023 End: September 15, 2023 Elijah Mayers MD Admit [facility], Other Provider Active Start: September 11, 2023 End: September 15, 2023 Ana Berry RN Other Provider Active Star t: September 11, 2023 End: September 15, 2023 Nuha Mcmahan , GLO Other Provider Active Start : September 11, 2023 End: September 15, 2023 Anne Ha , GLO Other Provider Active Start: [facility] 2023 End: September 15, 2023 Bernie Bell , GLO Other Provider Active Star t: September 11, 2023 End: September 15, 2023 Cecelia Villegas , GLO Other Provider Active Start : September 11, 2023 End: September 15, 2023 Zina Kunz , GLO Other Provider Active Start: [facility] 2023 End: September 15, 2023 Carline Cardozo , GLO Other Provider Active Start: [facility] 2023 End: September 15, 2023 Annalisa Gar MD Other Provider Active Start: September 11, 2023 End: September 15, 2023 Foster Santiago MD Other Provider Active Start: [facility] 2023 End: September 15, 2023 Lulú [...] 11, 2023 End: September 15, 2023 Gilbert Lnaier MD Other Provider Active Start: September 11, 2023 End: September 15, 2023 Peri Grubbs MD Other Provider Active Start : September 11, 2023 End: September 15, 2023 Raymond Hilton MD Other Provider Active Start: [facility] 2023 End: September 15, 2023 Patricia Mayberry APRN Other Provider Active Start: September 11, 2023 End: September 15, 2023 Warren Mera MD Other Provider Active Start: September 11, 2023 End: September 15, 2023 Flavio Woods MD Other Provider Active Start: [facility] 2023 End: September 15, 2023 Saud [...] Allen Andres MD Other Provider Active Start: [facility] 2023 End: September 15, 2023 GERRY Mendoza [...] Lc Lima MD Other Provider Active Start: [facility] 2023 End: September 15, 2023 Mati Alberto MD Other Provider Active Star t: September 11, 2023 End: September 15, 2023 Farhan Smith MD Other Provider Active Start: [facility] 20[facility] End: September 15, 2023 Rakel Regan DO Other Provider Active Start: [facility] 2023 End: September 15, 2023 Silverio Irizarry [...] Tushar Cohen MD Other Provider Active Start: [facility] 2023 End: September 15, 2023 Vidal Akins [...] Martina Thakkar RN Other Provider Active Start: [facility] 2023 End: September 15, 2023 Magno Pichardo [...] Ha , GLO Other Provider Active Start: [facility] 2023 End: September 15, 2023 Bernie Bell RN Other Provider Active Star t: September 13, 2023 End: September 15, 2023 Cecelia Villegas RN Other Provider Active Start : September 13, 2023 End: September 15, 2023 Zina Kunz RN Other Provider Active Start: [facility] 2023 End: September 15, 2023 Carline Cardozo RN Other Provider Active Start: [facility] 2023 End: September 15, 2023 Annalisa Gar MD Other Provider Active Start: September 13, 2023 End: September 15, 2023 Foster Santiago MD Other Provider Active Start: [facility] 2023 End: September 15, 2023 Lulú [...] Raymond Hilton MD Other Provider Active Start: [facility] 2023 End: September 15, 2023 Patricia Mayberry APRN Attending Pr belloer, Other Provider Active Start: September 13, 2023 End: September 15, 2023 Warren Mera MD Other Provider Active Start: September 13, 2023 End: September 15, 2023 Flavio Woods MD Other Provider Active Start: [facility] 2023 End: September 15, 2023 Saud [...] Allen Andres MD Other Provider Active Start: [facility] 2023 End: September 15, 2023 Lashonda Earl NP-C Other Provider Active St art: September 13, [...] Lc Lima MD Other Provider Active Start: [facility] 2023 End: September 15, 2023 Mati Alberto MD Other Provider Active Star t: September 13, 2023 End: September 15, 2023 Farhan Smith MD Other Provider Active Start: [facility] 2023 End: September 15, 2023 Rakel [...] Tushar Cohen MD Other Provider Active Start: [facility] 2023 End: September 15, 2023 Vidal Akins MD Other Provider Active S tart: September 13, 2023 End: September 15, 2023 Aiden Stoll , DO Other Provider Active Star t: September 13, 2023 End: September 15, 2023 Jordy Lima MD Other Provider Active Start: September 13, 2023 End: September 15, 2023 Martina Thakkar RN Other Provider Active Start: [facility] 2023 End: September 15, 2023 Team [...] May 21, 2023 End: May 21, 2023 Team Status: Inactive Member Role Status Dates Odell Harrington DO Primary Care Provide r, Attending Provider Active Start: December 19, 2023 End: December 19, 2023 Team Status: Active Member Role Status Dates Odell Harrington DO Primary Care Provide r, Attending Provider Active Start: December 20, 2023 Team Status: Active Member Role Status Dates Odell Harrington DO Primary Care Provider Active Start: February 04, 2024 ROCK ThomasC Attending Provider Active Start: February 04, 2024 Team Status: Inactive Member Role Status Dates Odell Harrington DO Primary Care Provider Active Start: February 19, 2024 End: February 19, 2024 Magno Pichardo II, MD Attending Provider Active Start: February 19, 2024 End: February 19, 2024 Castings Drafter Relationship Specialty Start Date End Date Odell Harrington MD [address] [place] [address] PCP - General Internal Medicine 01/01/23 Castings Drafter Relationship Specialty Start Date End Date Odell Harrington MD [address] [place] [address] PCP - General Internal Medicine 01/01/23 Team Status: Inactive Member Role Status Dates Odell Harrington DO Primary Care Provider Active Start: March 11, 2024 End: March 11, 2024 Magno Pichardo II, MD Attending Provider Active Start: March 11, 2024 End: March 11, 2024 Team Status: Inactive Member Role Status Dates Odell Harrington DO Primary Care Provide r, Attending Provider Active Start: March 12, 2024 End: March 12, 2024 Team Status: Inactive Member Role Status Dates Odell Harrington DO Primary Care Provide r, Attending Provider Active Start: April 15, 2024 End: April 15, 2024 Team Status: Inactive Member Role Status Dates Odell Harrington DO Primary Care Provider Active Start: April 29, 2024 End: April 29, 2024 Magno Pichardo II, MD Attending Provider Active Start: April 29, 2024 End: April 29, 2024 Team Status: Inactive Member Role Status Dates Odell Harrington DO Primary Care Provider Active Start: May 05, 2024 End: May 05, 2024 Magno Pichardo II, MD Attending Provider Active Start: May 05, 2024 End: May 05, 2024 Castings Drafter Relationship Specialty Start Date End Date Odell Harrington MD [address] [place] [address] PCP - General Internal Medicine 01/01/23 Castings Drafter Relationship Specialty Start Date End Date Odell Harrington MD [address] [place] [id number] PCP - General Internal Medicine 01/01/23 Team Status: Inactive Member Role Status Dates Odell Harrington DO Primary Care Provide r, Attending Provider Active Start: June 08, 2024 End: June 08, 2024 Team Status: Inactive Member Role Status Dates Odell Harrington DO Primary Care Provide r, Attending Provider Active Start: June 24, 2024 End: June 24, 2024 Team Status: Inactive Member Role Status Dates Odell Harrington DO Primary Care Provider Active Start: July 08, 2024 End: July 08, 2024 Magno Pichardo II, MD Attending Provider Active Start: July 08, 2024 End: July 08, 2024 Team Status: Inactive Member Role Status Dates Odell Harrington DO Primary Care Provider Active Start: July 09, 2024 End: July 09, 2024 Magno Pichardo II, MD Attending Provider Active Start: July 09, 2024 End: July 09, 2024 Team Status: Inactive Member Role Status Dates Odell Harrington DO Primary Care Provider Active Start: July 19, 2024 End: July 20, 2024 Magno Pichardo II, MD Attending Provider Active Start: July 19, 2024 End: July 20, 2024 Ana Berry RN Other Provider Active Star t: July 19, 2024 End: July 20, 2024 Nuha Mcmahan RN Other Provider Active Start : July 19, 2024 End: July 20, 2024 Bernie Bell RN Other Provider Active Star t: July 19, 2024 End: July 20, 2024 Zina Kunz RN Other Provider Active Start: J anuary 2024 End: July 20, 2024 Carline Cardozo RN Other Provider Active Start: Zoran nuary 2024 End: July 20, 2024 Annalisa Gar MD Other Provider Active Start: July 19, 2024 End: July 20, 2024 Genesis Andre DO Other Provider Active Start : July 19, 2024 End: July 20, 2024 Bhupinder San MD Other Provider Active Start : July 19, 2024 End: July 20, 2024 Ron Guajardo DO Other Provider Active Start: July 19, 2024 End: July 20, 2024 Gilbert Lanier MD Other Provider Active Start: July 19, 2024 End: July 20, 2024 Peri Grubbs MD Other Provider Active Start : July 19, 2024 End: July 20, 2024 Roger Luz DO Other Provider Active St art: July 19, 2024 End: July 20, 2024 Raymond Hilton MD Other Provider Active Start: J anuary 2024 End: July 20, 2024 Patricia Mayberry APRN Other Provider Active Start: July 19, 2024 End: July 20, 2024 Warren Mera MD Other Provider Active Start: July 19, 2024 End: July 20, 2024 Flavio Woods MD Other Provider Active Start: J anuary 2024 End: July 20, 2024 Saud Zuniga MD Other Provider Active Start: July 19, 2024 End: July 20, 2024 Benjamin Plasencia MD Other Provider Active Start: July 19, 2024 End: July 20, 2024 Roger Carranza DO Other Provider Active Start: July 19, 2024 End: July 20, 2024 Ricardo Souza MD Other Provider Active Start: Zoran nuary 2024 End: July 20, 2024 Allen Andres MD Other Provider Active Start: Jarad rock 2024 End: July 20, 2024 ROCK MendozaC Other Provider Active St art: July 19, 2024 End: July 20, 2024 Sloane Martin APRN Other Provider Active Star t: July 19, 2024 End: July 20, 2024 Huy Rosenbaum MD Other Provider Active Start: July 19, 2024 End: July 20, 2024 Augie Ontiveros MD Other Provider Active Start: Zoran pittmanary 2024 End: July 20, 2024 Lc Lima MD Other Provider Active Start: Jarad chandrakanteliz 2024 End: July 20, 2024 Mati Alberto MD Other Provider Active Star t: July 19, 2024 End: July 20, 2024 Farhan Smith MD Other Provider Active Start: J anuary 2024 End: July 20, 2024 Rakel Regan DO Other Provider Active Start: Zoran pittmanary 2024 End: July 20, 2024 Silverio Irizarry DO Other Provider Active Start : July 19, 2024 End: July 20, 2024 Carol Holland APRN Other Provider Active Start: July 19, 2024 End: July 20, 2024 Pj Knapp DO Other Provider Active Start: July 19, 2024 End: July 20, 2024 Paula Ramirez MD Other Provider Active Sta rt: July 19, 2024 End: July 20, 2024 Antonella Moore APRN Other Provider Active Start : July 19, 2024 End: July 20, 2024 Chetna Zaragoza APRN Other Provider Active St art: July 19, 2024 End: July 20, 2024 Tushar Cohen MD Other Provider Active Start: J anuary 2024 End: July 20, 2024 Vidal Akins MD Other Provider Active S tart: July 19, 2024 End: July 20, 2024 Aiden Stoll DO Other Provider Active Star t: July 19, 2024 End: July 20, 2024 Lucas Carrillo DO Other Provider Active Start: July 19, 2024 End: July 20, 2024 Jordy Lima MD Other Provider Active Start: July 19, 2024 End: July 20, 2024 Ganesh Moreno MD Other Provider Active Start: July 19, 2024 End: July 20, 2024 Joceline García APRN Other Provider Active Star t: July 19, 2024 End: July 20, 2024 Kraig Arteaga MD Other Provider Active Start: J anuary 2024 End: July 20, 2024 Vitor Everett MD Other Provider Active Start: Zoran ary 2024 End: July 20, 2024 Dilip Neal MD Other Provider Active Start: July 19, 2024 End: July 20, 2024 Raymond Lr MD Other Provider Active Start : July 19, 2024 End: July 20, 2024 Javi Redd MD Other Provider Active Start: uary 2024 End: July 20, 2024 Aisha Sidhu APRN Other Provider Active Sta rt: July 19, 2024 End: July 20, 2024 Shimon Patel APRN Other Provider Active Start: July 19, 2024 End: July 20, 2024 Martina Thakkar RN Other Provider Active Start: 2024 End: July 20, 2024 Dilip Laird MD Other Provider Active Start: uary 2024 End: July 20, 2024 Team Status: Active Member Role Status Dates Odell Harrington DO Primary Care Provider Active Start: July 19, 2024 Magno Pichardo II, MD Attending [facility], Other Provider Active Start: July 19, 2024 Team Status: Active Member Role Status Dates Odell Harrington DO Primary Care Provider Active Start: July 20, 2024 Magno Pichardo II, MD Other Provider Active S tart: July 20, 2024 Ana Berry RN Other Provider Active Star t: July 20, 2024 Nuha Mcmahan , GLO Other Provider Active Start : July 20, 2024 Bernie Bell RN Other Provider Active Star t: July 20, 2024 Zina Kunz , GLO Other Provider Active Start: 2024 Carline Cardozo RN Other Provider Active Start: Zoran ary 2024 Annalisa Gar MD Other Provider Active Start: July 20, 2024 Genesis Andre DO Other Provider Active Start : July 20, 2024 Bhupinder San MD Other Provider Active Start : July 20, 2024 Ron Guajardo DO Other Provider Active Start: July 20, 2024 Gilbert Lanier MD Other Provider Active Start: July 20, 2024 Peri Grubbs MD Other Provider Active Start : July 20, 2024 Roger Luz DO Other Provider Active St art: July 20, 2024 Raymond Hilton MD Other Provider Active Start: anuary 2024 Patricia Mayberry APRN Other Provider Active Start: July 20, 2024 Warren Mera MD Other Provider Active Start: July 20, 2024 Flavio Woods MD Other Provider Active Start: J anuary 2024 Saud Zuniga MD Other Provider Active Start: July 20, 2024 Benjamin Plasencia MD Other Provider Active Start: July 20, 2024 Roger Carranza DO Other Provider Active Start: July 20, 2024 Ricardo Souza MD Other Provider Active Start: 2024 Allen Andres MD Other Provider Active Start: Jun Lashonda Earl , SEWING MACHINE OPERATOR [employer]AG[employer]-C Other Provider Active St art: July 20, 2024 Sloane Martin APRN Other Provider Active Star t: July 20, 2024 Huy Rosenbaum MD Other Provider Active Start: July 20, 2024 Augie Ontiveros MD Other Provider Active Start: ary 2024 Lc Lima MD Other Provider Active Start: Jun Mati Alberto MD Other Provider Active Star t: July 20, 2024 Farhan Smith MD Other Provider Active Start: uary 2024 Rakel Regan DO Other Provider Active Start: 2024 Silverio Irizarry DO Other Provider Active Start : July 20, 2024 Carol Holland APRN Other Provider Active Start: July 20, 2024 Pj Knapp DO Other Provider Active Start: July 20, 2024 Paula Ramirez MD Other Provider Active Sta rt: July 20, 2024 Antonella Moore APRN Other Provider Active Start : July 20, 2024 Chetna Zaragoza APRN Other Provider Active St art: July 20, 2024 Tushar Cohen MD Other Provider Active Start: J anuary 2024 Vidal Akins MD Other Provider Active S tart: July 20, 2024 Aiden Stoll DO Other Provider Active Star t: July 20, 2024 Lucas Carrillo DO Other Provider Active Start: July 20, 2024 Jordy Lima MD Other Provider Active Start: July 20, 2024 Ganesh Moreno MD Other Provider Active Start: July 20, 2024 Joceline García APRN Other Provider Active Star t: July 20, 2024 Kraig Arteaga MD Other Provider Active Start: anuary 2024 Vitor Everett MD Other Provider Active Start: 2024 Dilip Neal MD Other Provider Active Start: July 20, 2024 Raymond Lr MD Other Provider Active Start : July 20, 2024 Javi Redd MD Other Provider Active Start: 2024 Aisha Sidhu APRN Other Provider Active Sta rt: July 20, 2024 Shimon Patel APRN Other Provider Active Start: July 20, 2024 Martina Thakkar RN Other Provider Active Start: 2024 Dilip Laird MD Other Provider Active Start: anuary 2024 Elijah Mayers MD Attending Provider Active Start: July 20, 2024 Team Status: Inactive Member Role Status Armand Harrington DO Primary Care Provider Active Start: July 20, 2024 End: August 02, 2024 Dilip Laird MD Admit Provider, Atte nding Provider Active Start: July 20, 2024 End: August 02, 2024 Ana Berry RN Other Provider Active Star t: July 20, 2024 End: August 02, 2024 Nuha Mcmahan RN Other Provider Active Start : July 20, 2024 End: August 02, 2024 Bernie Bell RN Other Provider Active Star t: July 20, 2024 End: August 02, 2024 Zina Kunz RN Other Provider Active Start: 2024 End: August 02, 2024 Carline Cardozo RN Other Provider Active Start: 2024 End: August 02, 2024 Annalisa Gar MD Other Provider Active Start: July 20, 2024 End: August 02, 2024 Genesis Andre DO Other Provider Active Start : July 20, 2024 End: August 02, 2024 Bhupinder San MD Other Provider Active Start : July 20, 2024 End: August 02, 2024 Ron Guajardo DO Other Provider Active Start: July 20, 2024 End: August 02, 2024 Gilbert Lanier MD Other Provider Active Start: July 20, 2024 End: August 02, 2024 Peri Grubbs MD Other Provider Active Start : July 20, 2024 End: August 02, 2024 Roger Luz DO Other Provider Active St art: July 20, 2024 End: August 02, 2024 Raymond Hilton MD Other Provider Active Start: anuary 2024 End: August 02, 2024 Patricia Mayberry APRN Other Provider Active Start: July 20, 2024 End: August 02, 2024 Warren Mera MD Other Provider Active Start: July 20, 2024 End: August 02, 2024 Flavio Woods MD Other Provider Active Start: J anuary 2024 End: August 02, 2024 Saud Zuniga MD Other Provider Active Start: July 20, 2024 End: August 02, 2024 Benjamin Plasencia MD Other Provider Active Start: July 20, 2024 End: August 02, 2024 Roger Carranza DO Other Provider Active Start: July 20, 2024 End: August 02, 2024 Ricardo Souza MD Other Provider Active Start: ary 2024 End: August 02, 2024 Allen Andres MD Other Provider Active Start: Jun End: August 02, 2024 GERRY Mendoza Other Provider Active St art: July 20, 2024 End: August 02, 2024 Sloane Martin APRN Other Provider Active Star t: July 20, 2024 End: August 02, 2024 Huy Rosenbaum MD Other Provider Active Start: July 20, 2024 End: August 02, 2024 Augie Ontiveros MD Other Provider Active Start: Ja nuary 2024 End: August 02, 2024 Lc Lima MD Other Provider Active Start: Junry 2024 End: August 02, 2024 Mati Alberto MD Other Provider Active Star t: July 20, 2024 End: August 02, 2024 Farhan Smith MD Other Provider Active Start: uary 2024 End: August 02, 2024 Rakel Regan , Other Provider Active Start: jairo 2024 End: August 02, 2024 Silverio Irizarry DO Other Provider Active Start : July 20, 2024 End: August 02, 2024 Carol Holland APRN Other Provider Active Start: July 20, 2024 End: August 02, 2024 Pj Knapp , Other Provider Active Start: July 20, 2024 End: August 02, 2024 Paula Ramirez MD Other Provider Active Sta rt: July 20, 2024 End: August 02, 2024 Antonella Moore APRN Other Provider Active Start : July 20, 2024 End: August 02, 2024 Chetna Zaragoza APRN Other Provider Active St art: July 20, 2024 End: August 02, 2024 Tushar Cohen MD Other Provider Active Start: anuary 2024 End: August 02, 2024 Vidal Akins MD Other Provider Active S tart: July 20, 2024 End: August 02, 2024 Aiden Stoll DO Other Provider Active Star t: July 20, 2024 End: August 02, 2024 Lucas Carrillo DO Other Provider Active Start: July 20, 2024 End: August 02, 2024 Jordy Lima MD Other Provider Active Start: July 20, 2024 End: August 02, 2024 Ganesh Moreno MD Other Provider Active Start: July 20, 2024 End: August 02, 2024 Joceline García APRN Other Provider Active Star t: July 20, 2024 End: August 02, 2024 Kraig Arteaga MD Other Provider Active Start: J anuary 2024 End: August 02, 2024 Vitor Everett MD Other Provider Active Start: Zoran anderson 2024 End: August 02, 2024 Dilip Neal MD Other Provider Active Start: July 20, 2024 End: August 02, 2024 Raymond Lr MD Other Provider Active Start : July 20, 2024 End: August 02, 2024 Javi Redd MD Other Provider Active Start: J anuary 5 End: August 02, 2024 Aisha Sidhu APRN Other Provider Active Sta rt: July 20, 2024 End: August 02, 2024 Shimon Patel APRN Other Provider Active Start: July 20, 2024 End: August 02, 2024 Martina Thakkar RN Other Provider Active Start: anuary 2024 End: August 02, 2024 Team Status: Active Member Role Status Armand Harrington DO Primary Care Provider Active Start: July 21, 2024 Dilip Laird MD Admit Provider, Othe r Provider Active Start: July 21, 2024 Ana Berry , GLO Other Provider Active Star t: July 21, 2024 Nuha Mcmahan , GLO Other Provider Active Start : July 21, 2024 Bernie Bell RN Other Provider Active Star t: July 21, 2024 Zina Kunz , GLO Other Provider Active Start: uary 2024 Carline Cardozo RN Other Provider Active Start: Zoran anderson 2024 Annalisa Gar MD Other Provider Active Start: July 21, 2024 Genesis Andre DO Other Provider Active Start : July 21, 2024 Bhupinder San MD Other Provider Active Start : July 21, 2024 Ron Guajardo DO Other Provider Active Start: July 21, 2024 Gilbert Lanier MD Other Provider Active Start: July 21, 2024 Peri Grubbs MD Other Provider Active Start : July 21, 2024 Roger Luz DO Other Provider Active St art: July 21, 2024 Raymond Hilton MD Other Provider Active Start: anuary 2024 Patricia Mayberry APRN Other Provider Active Start: July 21, 2024 Warren Mera MD Other Provider Active Start: July 21, 2024 Flavio Woods MD Other Provider Active Start: anuary 2024 Saud Zuniga MD Other Provider Active Start: July 21, 2024 Benjamin Plasencia MD Other Provider Active Start: July 21, 2024 Roger Carranza DO Other Provider Active Start: July 21, 2024 Ricardo Souza MD Other Provider Active Start: toyaary 2024 Allen Andres MD Other Provider Active Start: Junry 2024 Lashonda Earl NP-C Other Provider Active St art: July 21, 2024 Sloane Martin APRN Other Provider Active Star t: July 21, 2024 Huy Rosenbaum MD Other Provider Active Start: July 21, 2024 Augie Ontiveros MD Other Provider Active Start: ary 2024 Lc Lima MD Other Provider Active Start: Junry 2024 Mati Alberto MD Other Provider Active Star t: July 21, 2024 Farhan Smith MD Other Provider Active Start: J anuary 2024 Rakel Regan DO Other Provider Active Start: jairo 2024 Silverio Irizarry DO Other Provider Active Start : July 21, 2024 Carol Holland APRN Other Provider Active Start: July 21, 2024 Pj Knapp DO Other Provider Active Start: July 21, 2024 Palua Ramirez MD Other Provider Active Sta rt: July 21, 2024 Antonella Moore APRN Other Provider Active Start : July 21, 2024 Chetna Zaragoza APRN Other Provider Active St art: July 21, 2024 Tushar Cohen MD Other Provider Active Start: J anuary 2024 Vidal Akins MD Other Provider Active S tart: July 21, 2024 Aiden Stoll DO Other Provider Active Star t: July 21, 2024 Lucas Carrillo DO Other Provider Active Start: July 21, 2024 Jordy Lima MD Other Provider Active Start: July 21, 2024 Ganesh Moreno MD Other Provider Active Start: July 21, 2024 Joceline García APRN Other Provider Active Star t: July 21, 2024 Kraig Arteaga MD Other Provider Active Start: J anuary 2024 Vitor Everett MD Other Provider Active Start: Zoran anderson 2024 Dilip Neal MD Other Provider Active Start: July 21, 2024 Raymond Lr MD Other Provider Active Start : July 21, 2024 Javi Redd MD Other Provider Active Start: J anuary 2024 Aisha Sidhu APRN Other Provider Active Sta rt: July 21, 2024 Shimon Patel APRN Other Provider Active Start: July 21, 2024 Martina Thakkar , GLO Other Provider Active Start: J anuary 2024 Heidi Mesa APRN Attending Provider Active Start: July 21, 2024 Team Status: Active Member Role Status Dates Odell Harrington DO Primary Care Provider Active Start: July 28, 2024 Dilip Laird MD Admit Provider, Atte nding Provider, Other Provider Active Start: July 28, 2024 Ana Berry , GLO Other Provider Active Star t: July 28, 2024 Nuha Mcmahan , GLO Other Provider Active Start : July 28, 2024 Bernie Bell , GLO Other Provider Active Star t: July 28, 2024 Zina Kunz , GLO Other Provider Active Start: J anuary 2024 Carline Cardozo , GLO Other Provider Active Start: Zoran anderson 2024 Annalisa Gar MD Other Provider Active Start: July 28, 2024 Genesis Andre DO Other Provider Active Start : July 28, 2024 Bhupinder San MD Other Provider Active Start : July 28, 2024 Ron Guajardo DO Other Provider Active Start: July 28, 2024 Gilbert Lanier MD Other Provider Active Start: July 28, 2024 Peri Grubbs MD Other Provider Active Start : July 28, 2024 Roger Luz DO Other Provider Active St art: July 28, 2024 Raymond Hilton MD Other Provider Active Start: J anuary 2024 Patricia Mayberry APRN Other Provider Active Start: July 28, 2024 Warren Mera MD Other Provider Active Start: July 28, 2024 Flavio Woods MD Other Provider Active Start: J anuary 2024 Saud Zuniga MD Other Provider Active Start: July 28, 2024 Benjamin Plasencia MD Other Provider Active Start: July 28, 2024 Roger Carranza DO Other Provider Active Start: July 28, 2024 Ricardo Souza MD Other Provider Active Start: jairo 2024 Allen Andres MD Other Provider Active Start: Jun Lashonda Earl , SEWING MACHINE OPERATOR [employer]-C Other Provider Active St art: July 28, 2024 Sloane Martin APRN Other Provider Active Star t: July 28, 2024 Huy Rosenbaum MD Other Provider Active Start: July 28, 2024 Augie Ontiveros MD Other Provider Active Start: jairo 2024 Lc Lima MD Other Provider Active Start: Jun Mati Alberto MD Other Provider Active Star t: July 28, 2024 Farhan Smith MD Other Provider Active Start: J anuary 2024 Rakel Regan DO Other Provider Active Start: jairo 2024 Silverio Irizarry DO Other Provider Active Start : July 28, 2024 Carol Holland APRN Other Provider Active Start: July 28, 2024 Pj Knapp DO Other Provider Active Start: July 28, 2024 Paula Ramirez MD Other Provider Active Sta rt: July 28, 2024 Antonella Moore APRN Other Provider Active Start : July 28, 2024 Chetna Zaragoza APRN Other Provider Active St art: July 28, 2024 Tushar Cohen MD Other Provider Active Start: J anuary 2024 Vidal Akins MD Other Provider Active S tart: July 28, 2024 Aiden Stoll DO Other Provider Active Star t: July 28, 2024 Lucas Carrillo DO Other Provider Active Start: July 28, 2024 Jordy Lima MD Other Provider Active Start: July 28, 2024 Ganesh Moreno MD Other Provider Active Start: July 28, 2024 Joceline García APRN Other Provider Active Star t: July 28, 2024 Kraig Arteaga MD Other Provider Active Start: J anuary 2024 Vitor Everett MD Other Provider Active Start: Zoran anderson 2024 Dilip Neal MD Other Provider Active Start: July 28, 2024 Raymond Lr MD Other Provider Active Start : July 28, 2024 Javi Redd MD Other Provider Active Start: J anuary 2024 Aisha Sidhu APRN Other Provider Active Sta rt: July 28, 2024 Shimon Patel APRN Other Provider Active Start: July 28, 2024 Martina Thakkar RN Other Provider Active Start: J anuary 2024 Team Status: Active Member Role Status Dates Odell Harrington DO Primary Care Provider Active Start: August 03, 2024 Padmaja Crawford CMA Attending Provider Active Start: August 03, 2024 Team Status: Inactive Member Role Status Dates Odell Harrington DO Primary Care Provider Active Start: August 09, 2024 End: August 09, 2024 Artur Whitten DO Attending Provider Active S tart: August 09, 2024 End: August 09, 2024 Team Status: Inactive Member Role Status Dates Odell Harrington DO Primary Care Provide r, Attending Provider Active Start: August 16, 2024 End: August 16, 2024 Goals (unrecognized section and content) Goals may [...] BE BASED ON THE PRIMARY CLINICAL RECORDS. [employer] [facility]. provides no warranty or guarantee of the accuracy or completeness of information in this document.
== END 2024-08-24 10:08 | disposition home or self-care (01) ==
LOC: CT 10:07
PROVIDERS: PCP Internal Medicine; Visit Provider Internal Medicine
DX: R22.2 Localized swelling, mass and lump, trunk (principal)
CPT/HCPCS: 71250

== ENCOUNTER 2024-12-30 08:49 | Outpatient (OUT) | payer MEDICARE, SELFPAY ==
--- OUTSIDE RECORDS SUMMARY | 2024-12-28 15:30 | XMS_ITS | Encounter Summary ---
Author Organization [facility] Address [address] [place] [address] Care Team Providers Care Child Care Worker Name Role Phone Odell Goodson DO Primary Care Provider [phone] Reason for Visit * Reason Comments Follow-up Sternal wires Encounter Details Date Type Department Care Team (Late st Contact Info) Description 12/28/2024 3:30 PM EDT Follow-Up [facility] [address] [place] [address] Winston Andersen, QA ARCHITECT [address] [place] [address] History of coronary artery bypass graft (Primary Dx) Social History Tobacco Use Types Packs/Day Years Used Date Smoking Tobacco: Never Smokeless Tobacco: Never Alcohol Use Standard Drinks/Week Comments Yes 0 (1 standard drink = 0.6 oz pur e alcohol) occasional PHQ-2 Answer Date Recorded Patient Health Questionnaire-2 Score 0 12/28/2024 [place] Safety & Environment Answer Date Rec orded Fear of Current or Ex-Partner Not on file Emotionally Abused Not on file 08/21/2023 Physically Abused Not on file 08/21/2023 Sexually Abused Not on file 08/21/2023 Physically or Sexually Abused Not on file Comments Unknown Sex and Gender Information Value Date Recorded Sex Assigned at Female 09/07/2024 12:57 PM EDT Legal Sex Female 10:46 PM EDT Gender Identity Female 09/07/2024 12:57 PM EDT Sexual Orientation Don't know 09/07/2024 12 :57 PM EDT documented as of this encounter Last Filed Vital Signs Vital Sign Reading Time Taken Comments Blood Pressure 175/96 12/28/2024 3:22 PM EDT Pulse 65 12/28/2024 3:22 PM EDT Temperature - - Respiratory Rate - - Oxygen Saturation 99% 12/28/2024 3:22 PM EDT Inhaled Oxygen Concentration - - Weight 64.9 kg (143 lb) 12/28/2024 3:22 PM EDT Height 149.9 cm (4' 11 ) 12/28/2024 3:22 PM EDT Body Mass Index 28.88 12/28/2024 3:22 PM EDT documented in this encounter Functional Status documented as of this encounter Progress Notes * Winston Andersen, QA ARCHITECT - 12/28/2024 3:30 PM EDT Images from the original note were not included. Cardiothoracic Surgery Outpatient Follow-Up 09/07/2024 Reason For Visit Sternal Pain Referring Provider: Dr. Mayur Mcguire History Of Present Illness Ashley Brown is a 83 y.o. female with PMH of CAD- s/p CBAG x 3 2019 (Dr. 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 Gar where she was offered plating for the malunion, at that time patient did not want to undergo surgery. She was last seen by our office 09/07/2024- at that time we gave her 3 options: 1. Removal of sternal wires only, 2. Removal of sternal wires and plating of the sternum, 3. Continue to monitor with no surgical intervention. Patient wanted to wait and follow-up in 3 months. Patient is here today with her friend. She sates the pain remains the same, it is not debilitating.Endorses nodule around sternum has not changed. Assessment: Diagnosis Plan 1. Pain of sternum 2. Hx of CABG Malunion of Sternum Plan : -Discussed POC with Dr. Glover for patient. CT of Chest showed malunion patient wanted to follow-upin clinic in 3 months. She does not want to have surgery. -Informed reach out to clinic if pain increases or changes mind. She was agreeable to POC. Past Medical History She has a past medical history of Aortic valve disorder, Atrial fibrillation (CMS/HCC), Carotid artery stenosis, CHF (congestive heart failure) (CMS/HCC), Chronic kidney disease, Coronary artery disease, Heart valve disease, Hyperlipidemia, Hypertension, Mitral valve disorder, and Renal artery stenosis. Surgical History She has a past surgical history that includes Cardiac catheterization; Cholecystectomy; Coronary artery bypass graft (01/27/2020); Cardiac catheterization (01/26/2020); Total knee arthroplasty (Bilateral); and Total hip arthroplasty (07/19/2024). Family History Family History Family History Problem Relation Name Age of Onset Coronary artery disease Father Other (parkinsons) Father Social History She reports that she has never smoked. She has never used smokeless tobacco. She reports current alcohol use. She reports that she does not use drugs. Allergies Hydrocodone-acetaminophen, Oxycodone-acetaminophen, and Rocuronium Medications Current Medications Current Outpatient Medications Medication Sig Dispense Refill acetaminophen (Tylenol 8 Hour) 650 mg ER tablet Take 650 mg by mouth two times daily. 2 tablets alpha tocopherol (Vitamin E) 670 mg (1,000 unit) capsule Take 1,000 Units by mouth in the morning. ALPRAZolam (Xanax) 0.25 mg tablet Take 0.25 mg by mouth if needed at bedtime. aspirin 81 mg EC tablet in the morning. atorvastatin (Lipitor) 20 mg tablet TAKE 1 TABLET BY MOUTH EVERY DAY (Patient taking differently: Take 10 mg by mouth at bedtime.) 90 tablet 3 celecoxib (CeleBREX) 200 mg capsule Take 200 mg by mouth in the morning. cholecalciferol, vitamin D3, 50 mcg (2,000 unit) capsule Take 2,000 Units by mouth in the morning. diphenhydrAMINE (BENADryl) 25 mg capsule Take 25 mg by mouth in the morning. ezetimibe (Zetia) 10 mg tablet Take 1 tablet (10 mg) by mouth once daily as directed. 90 tablet 3 losartan (Cozaar) 25 mg tablet TAKE 1 TABLET BY MOUTH EVERY DAY 90 tablet 3 metoprolol succinate XL (Toprol-XL) 25 mg 24 hr tablet TAKE 1 TABLET (25 MG) BY MOUTH IN THE MORNING . DO NOT CRUSH OR CHEW 90 tablet 3 zolpidem (Ambien) 10 mg tablet zolpidem 10 mg tablet TAKE 1 TABLET BY MOUTH AT BEDTIME NEEDED FOR INSOMNIA loratadine 10 mg capsule 1 capsule in the morning. No current facility-administered medications for this visit. Review of Systems Review of Systems: All 14 Systems Reviewed and Negative unless otherwise indicated in the above HPI. Last Recorded Vitals Visit Vitals BP (!) 175/96 (BP Location: Right arm, Patient Position: Sitting, BP Cuff Size: Adult) Pulse 65 Ht 1.499 m (4' 11 ) Wt 64.9 kg (143 lb) SpO2 99% BMI 28.88 kg/m² Physical Exam Vitals reviewed. Constitutional: General: She is not in acute distress. Appearance: Normal appearance. She is normal weight. She is not ill-appearing. HENT: Head: Normocephalic and atraumatic. Mouth/Throat: Mouth: Mucous membranes are moist. Pharynx: Oropharynx is clear. Eyes: Extraocular Movements: Extraocular movements intact. Conjunctiva/sclera: Conjunctivae normal. Pupils: Pupils are equal, round, and reactive to light. Neck: Vascular: No carotid bruit. Cardiovascular: Rate and Rhythm: Normal rate and regular rhythm. Pulses: Normal pulses. Heart sounds: Normal heart sounds. No murmur heard. Pulmonary: Effort: Pulmonary effort is normal. No respiratory distress. Breath sounds: Normal breath sounds. Abdominal: General: Abdomen is flat. There is no distension. Palpations: Abdomen is soft. Musculoskeletal: General: Normal range of motion. Cervical back: Normal range of motion. Right lower leg: No edema. Left lower leg: No edema. Skin: General: Skin is warm and dry. Capillary Refill: Capillary refill takes less than 2 seconds. Coloration: Skin is not pale. Comments: Midsternal incision. Popping and clicking heard with palpation. Neurological: General: No focal deficit present. Mental Status: She is alert and oriented to person, place, and time. Mental status is at baseline. Psychiatric: Mood and Affect: Mood normal. Behavior: Behavior normal. Thought Content: Thought content normal. Judgment: Judgment normal. Relevant Results: CT CHEST WITHOUT CONTRAST 08/24/2024- [facility] CLINICAL DATA: Tender chest wall lump anteriorly. Previous open-heart surgery. COMPARISON: Sternal plain films 08/16/2024 Spiral images were obtained through the chest without contrast. Images were reviewed using both narrow and wide window settings. The site of patient's lump was marked on the skin. This CT exam was performed using one or more following dose reduction techniques: Automated exposure control, adjustment of the mA and/or kV according to patient size, or use of iterative reconstruction technique. The heart is within normal limits for size. There is no pericardial effusion. Coronary artery disease is seen. There is no aortic aneurysm. Carotid plaque is present at the aortic arch, descending aorta and imaged great vessels. No pathologic adenopathy is noted. There is prior median sternotomy. 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 There is also a transverse Imaging [id number] [facility] 2 Patient name: ASHLEY BROWN defect at the mid sternum which could be related to surgery however an unhealed fracture is not excluded. Median sternotomy wires are present in the vicinity of patient's lump. The wires do protrude into the subcutaneous soft tissues though greatest at the sternoxiphoid junction. There are no discrete subcutaneous masses or abnormal fluid collections. Degenerative changes are noted at the imaged spine. Fibrocalcific scarring is visualized at the lung apices. Thereis no additional consolidation, pleural effusion or pneumothorax. Limited cuts through the upper abdomen show prior cholecystectomy. There is a right renal artery stent. CT/CT chest wo con IMPRESSION: POSTOPERATIVE CHANGES OF MEDIAN STERNOTOMY WITH NONUNION AND/OR UNHEALED FRACTURE OF THE STERNUM, DESCRIBED. NO SUBCUTANEOUS MASSES OR ABNORMAL FLUID COLLECTIONS AT THE SITE OFCLINICAL CONCERN. NO ACUTE PULMONARY FINDINGS. Impression dictated by: Jane Shepherd M.D.:18 PM Cardiothoracic Surgery outpatient Office Number [phone]. Cardiothoracic Surgery outpatient . documented in this encounter Plan of Treatment Upcoming Encounters Date Type Department Care Team (Late st Contact Info) Description 02/09/2025 1:40 PM EDT Office Visit [facility] [address] [place] [address] Saundra Mccallum, QA ARCHITECT [address] [place] [address] documented as of this encounter Visit Diagnoses Diagnosis History of coronary artery bypass graft- Primary Postsurgical aortocoronary bypass status documented in this encounter Care Teams Child Care Worker Relationship Specialty Start Date End Date Odell Goodson DO [address] [facility] [place] [address] PCP - General 02/20/22 documented as of this encounter
--- OUTSIDE RECORDS SUMMARY | 2024-12-30 08:56 | XMS_ITS | Clinical Summary ---
Author Organization [facility] Address [address] [place] [id number] Care Team Providers Care Robotics Application Engineer Name Role Phone Odell Goodson DO Primary Care Provider [phone] Allergies Active Allergy Reactions Criticality Noted Date Comments Hydrocodone-Acetaminophen Other Low 06/17/2014 Oxycodone-Acetaminophen Other Low 06/17/2014 Rocuronium Other Low 06/17/2014 Medications aspirin 81 mg EC tablet in the morning. Active loratadine 10 mg capsule 1 capsule in the morning. 2 Active zolpidem (Ambien) 10 mg tablet zolpidem 10 mg tablet TAKE 1 TABLET BY MOUTH AT BEDTIME NEEDED FOR INSOMNIA Active ALPRAZolam (Xanax) 0.25 mg tablet Take 0.25 mg by mouth if needed at bedtime. Active cholecalciferol, vitamin D3, 50 mcg (2,000 unit) capsule Take 2,000 Units by mouth in the morning. Active celecoxib (CeleBREX) 200 mg capsule Take 200 mg by mouth in the morning. 4 Active losartan (Cozaar) 25 mg tabletIndications:E ssential (primary) hypertension TAKE 1 TABLET BY MOUTH EVERY DAY 90 tablet 3 4 Active alpha tocopherol (Vitamin E) 670 mg (1,000 unit) capsule Take 1,000 Units by mouth in the morning. Active diphenhydrAMINE (BENADryl) 25 mg capsule Take 25 mg by mouth in the morning. Active atorvastatin (Lipitor) 10 mg tabletIndications:C oronary atherosclerosis due to calcified coronary lesion (CODE) Take 1 tablet (10 mg) by mouth at bedtime. 90 tablet 3 5 11/13/19 26 Active metoprolol succinate XL (Toprol-XL) 25 mg 24 hr tabletIndications:C oronary artery disease involving [place] coronary artery of ton[place]anda heart without angina pectoris TAKE 1 TABLET BY MOUTH IN THE MORNING, DO NOT CRUSH OR CHEW 90 tablet 1 5 Active ezetimibe (Zetia) 10 mg tabletIndications:M ixed hyperlipidemia TAKE 1 TABLET (10 MG) BY MOUTH ONCE DAILY DIRECTED. 90 tablet 3 5 11/24/19 26 Active Active Problems Problem Noted Date Diagnosed Date Elevated cholesterol 02/04/2024 GERD (gastroesophageal reflux disease) 4 Impaired mobility and activities of daily living 02/04/2024 Post-operative pain 02/04/2024 Primary insomnia 02/04/2024 Primary osteoarthritis of both knees 02/04/2024 Primary osteoarthritis of right knee 02/04/2024 Screening mammography declined 02/04/2024 Status post total right knee replacement 024 Blepharitis of upper and lower eyelids of both e yes 01/01/2023 05/14/2023 Dry eyes 01/01/2023 05/14/2023 PCO (posterior capsular opacification), bilatera l 01/01/2023 05/14/2023 Upper respiratory infection 10/11/2022 Coronary artery disease invo lving tonawanda coronary artery of ton[place] heart without angina pectoris 04/15/2022 Essential hypertension 04/15/2022 History of coronary artery bypass graft 04/15/20 22 PAF (paroxysmal atrial fibrillation) 04/15/2022 Carotid artery stenosis, asymptomatic, bilateral 04/15/2022 Renal artery stenosis 04/15/2022 Overview (04/15/2022): s/p right renal artery stenting Chronic systolic heart failure 04/15/2022 Overview (04/15/2022): Recovered ejection fraction Hypertensive disorder 03/15/2014 Chest pain 06/03/2013 Preoperative evaluation to r ule out surgical contraindication 06/03/2013 Aortic valve disorder 09/28/2012 Benign essential hypertension 11/15/2011 Syncope and collapse 10/16/2011 Generalized anxiety disorder 10/15/2011 Obesity 10/15/2011 Mitral valve disorder 10/09/2011 Atherosclerosis of renal artery 10/09/2011 Raynaud's disease 10/09/2011 Encounters Date Type Department Care Team Description 12/28/2024 3:30 PM EDT Follow-Up [facility] [address] [place] [address] Winston Andersen CNP History of coronary artery bypass graft (Primary Dx) 11/22/2024 Refill [facility] [address] [facility] [place] [address] Saundra Mccallum CNP Mixed hyperlipidemia 11/16/2024 Refill [facility] [address] [facility] [place] [address] Saundra Mccallum CNP Coronary artery disease involving ton[place] coronary artery of tonawanda heart without angina pectoris 11/12/2024 Refill [facility] [address] [facility] [place] [address] Mayur Mcguire MD Coronary atherosclerosis due to calcified coronary lesion (CODE) (Primary Dx) from Last 3 Months Immunizations Immunization Administration Dates Next Due Influenza Whole 04/24/2009 Influenza, High Dose Seasonal, Preservative Free 05/21/2017,04/23/2016 Influenza, High-dose Seasona l, Quadrivalent, Preservative Free 03/26/2021 Influenza, Seasonal, Quadrivalent, Adjuvanted ,04/23/2022 Influenza, injectable, quadrivalent, preservativ e free 03/15/2020,04/12/2015 Influenza, trivalent, adjuvanted 04/20/2018 Pneumococcal Polysaccharide PPV23 04/12/2015 Tetanus toxoid, adsorbed 01/21/2000 Zoster, live 01/05/2014 Family History Medical History Relation Name Comments Coronary artery disease Father parkinsons Father Relation Name Status Comments Father Social History Tobacco Use Types Packs/Day Years [...] Don't know 09/07/2024 12 :57 PM EDT Last Filed Vital Signs Vital Sign Reading Time Taken Comments Blood Pressure 175/96 12/28/2024 3:22 PM EDT Pulse 65 12/28/2024 3:22 PM EDT Temperature 36.2 C (97.1 F) 03/20/2021 2:32 PM EDT Respiratory Rate - - Oxygen Saturation 99% 12/28/2024 3:22 PM EDT Inhaled Oxygen Concentration - - Weight 64.9 kg (143 lb) 12/28/2024 3:22 PM EDT Height 149.9 cm (4' 11 ) 12/28/2024 3:22 PM EDT Body Mass Index 28.88 12/28/2024 3:22 PM EDT Plan of Treatment Upcoming Encounters Date Type Department Care Team (Late st Contact Info) Description 02/09/2025 1:40 PM EDT Office Visit [facility] [address] [place] [address] Saundra Mccallum, HEALTH AND WELLNESS SALES CONSULTANT [address] [place] [address] Health Maintenance Due Date Last Done Comments Medicare Annual Wellness (AWV) 1940 Adult Tetanus 1964 Zoster Vaccines (1 of 2) 1992 01/05/2014 Pneumococcal Vaccine: 50+ Years (2 of 2 - PCV) 04/12/2016 04/12/2015 COVID-19 Vaccine ( season) 2024 04/05/2021, 08/16/2020, 07/26/2020 Influenza Vaccine (#1) 2025 , 04/30/2023, 04/23/2022, Additional history exists Depression Screening 12/28/2025 12/28/2024 Fall Risk Screening 12/28/2025 12/28/2024 HIB Vaccines Aged Out No longer eligi ble based on patient's age to complete this topic HPV Vaccines Aged Out No longer eligi ble based on patient's age to complete this topic IPV Vaccines Aged Out No longer eligi ble based on patient's age to complete this topic Meningococcal B Vaccine Aged Out No l onger eligible based on patient's age to complete this topic Meningococcal Vaccine Aged Out No [place] eligible based on patient's age to complete this topic Rotavirus Vaccines Aged Out No longer eligible based on patient's age to complete this topic Insurance MEDICARE AET[employer] Care Teams Robotics Application Engineer Relationship Specialty [place] [address] [place] [phone] PCP - General 02/20/22
--- OUTSIDE RECORDS SUMMARY | 2024-12-30 08:56 | XMS_ITS | Encounter Summary ---
Author Organization [facility] Address [address] [facility] [place] [address] Care Team Providers Care Planning Lead Name Role Phone Odell Goodson DO Primary Care Provider [phone] Encounter Details Date Type Department Care Team (Late Contact Info) Description 10/29/2024 Results Follow-Up [facility] [address] [facility] [address] [place] [address] Lesley Palacios MD [address] [facility] [address] [facility] [address] [place] [address] Social History Tobacco Use Types Packs/Day Years Used Date Smoking Tobacco: Unknown Comments Unknown Sex and Gender Information Value Date Recorded Sex Assigned at Not on file Legal Sex Female 7:15 PM EDT Gender Identity Not on file Sexual Orientation Not on file documented as of this encounter Plan of Treatment Upcoming Encounters Date Type Department Care Team (Late Contact Info) Description 01/20/2025 1:40 PM EDT Procedure Visit [facility] [address] [facility] [place] [address] Hiro Soler DPM [address] [facility] [address] [place] [address] 02/02/2025 2:35 PM EDT Office Visit [facility] [address] [place] [address] Lesley Palacios MD [address] [facility] [address] [facility] [address] [place] [address] 02/22/2025 2:00 PM EDT Office Visit [facility] [address] [place] [phone] Juancho Ryan DO [address] [place] [address] 10/25/2025 2:05 PM EDT Office Visit [facility] [address] [place] [address] Lesley Palacios MD [address] [place] [address] documented as of this encounter Visit Diagnoses Not on filedocumented in this encounter Care Teams Planning Lead Relationship Specialty Start Date End Date Odell Goodson DO [address] [facility] [place] [address] PCP - General Internal Medicine 01/01/23 documented as of this encounter
--- OUTSIDE RECORDS SUMMARY | 2024-12-30 08:56 | XMS_ITS | Encounter Summary ---
Author Organization [facility] Address [address] [place] [address] Care Team Providers Care Stranding Machine Operator Name Role Phone Odell Goodson DO Primary Care Provider [phone] Reason for Visit * Reason Comments Med Refill Encounter Details Date Type Department Care Team (Late st Contact Info) Description 11/12/2024 Refill [facility] [address] [place] [address] Mayur Mcguire MD [address] [facility] [address] [facility] [place] [address] Coronary atherosclerosis due to calcified coronary lesion (CODE) (Primary Dx) Social History Tobacco Use Types Packs/Day Years Used Date Smoking Tobacco: Never Smokeless Tobacco: Never Alcohol Use Standard Drinks/Week Comments Yes 0 (1 standard drink = 0.6 oz pur e alcohol) occasional PHQ-2 Answer Date Recorded Patient Health Questionnaire-2 Score 0 09/07/2024 [place] Safety & Environment Answer Date Rec [...] PM EDT documented as of this encounter Plan of Treatment Upcoming Encounters Date Type Department Care Team (Late st Contact Info) Description 02/09/2025 1:40 PM EDT Office Visit [facility] [address] [place] [address] Saundra Mccallum, BRIDGE TOLL COLLECTOR [address] [place] [address] documented as of this encounter Visit Diagnoses Diagnosis Coronary atherosclerosis due to calcified coronary lesion (CODE)- Primary documented in this encounter Care Teams Stranding Machine Operator Relationship Specialty Start Date End Date Odell Goodson DO [address] [facility] [place] [address] PCP - General 02/20/22 documented as of this encounter
--- OUTSIDE RECORDS SUMMARY | 2024-12-30 08:56 | XMS_ITS | Encounter Summary ---
Author Organization [facility] Address [address] [place] [address] Care Team Providers Care Store Standards Associate Name Role Phone Odell Goodson DO Primary Care Provider [phone] Reason for Visit * Reason Comments Med Refill Encounter Details Date Type Department Care Team (Late st Contact Info) Description 07/18/[address] [address] Mayur Mcguire MD [address] [facility] [address] [facility] [place] [address] Coronary atherosclerosis due to calcified coronary lesion (CODE) Social History Tobacco Use Types Packs/Day Years Used Date Smoking Tobacco: Never Smokeless Tobacco: Never Alcohol Use Standard Drinks/Week Comments Yes 0 (1 standard drink = 0.6 oz pur e alcohol) occasional Comments Unknown Sex and Gender Information Value [...] Description 02/09/2025 1:40 PM EDT Office Visit [facility] [address] [place] [address] Saundra Mccallum, STOCKROOM WORKER [address] [place] [address] documented as of this encounter Visit Diagnoses Diagnosis Coronary atherosclerosis due to calcified coronary lesion (CODE) documented in this encounter Care Teams Store Standards Associate Relationship Specialty Start Date End Date Odell Goodson DO [address] [place] [address] PCP - General 02/20/22 documented as of this encounter
--- OUTSIDE RECORDS SUMMARY | 2024-12-30 08:56 | XMS_ITS | Encounter Summary ---
Author Organization [facility] Address [address] [place] [address] Care Team Providers Care Dry Drug Worker Name Role Phone Odell Goodson DO Primary Care Provider [phone] Encounter Details Date Type Department Care Team (Late st Contact Info) Description 02/20/2022 Orders Only [address] [address] Gretta Dover MA Social History Tobacco Use Types Packs/Day Years [...] Description 02/09/2025 1:40 PM EDT Office Visit [address] [address] Saundra Mccallum CNP [address] [place] [phone] documented as of this encounter Visit Diagnoses Not on filedocumented in this encounter Care Teams Dry Drug Worker Relationship Specialty Start Date End Date Odell Goodson DO [address] [facility] [place] [address] PCP - General 02/20/22 documented as of this encounter
--- OUTSIDE RECORDS SUMMARY | 2024-12-30 08:56 | XMS_ITS | Clinical Summary ---
Author Organization Digital Message Display [facility] tem Address [id number] [address] [place] [address] Care Team Providers Care Demand Equipment Repairer Name Role Phone Odell Goodson DO Primary Care Provider [phone] Allergies Active Allergy Reactions Criticality Noted Date Comments Hydrocodone-Acetamino phen Other (See Comments) 06/17/2014 Oxycodone-Acetaminoph en Other (See Comments) 06/17/2014 vomiting Rocuronium Other (See Comments) 06/17/2014 Had severe breathing problems, was in ICU, with anesthesia Medications cloNIDine (CATAPRES-TTS) 0.3 mg/24 hr APPLY 1 PATCH TO THE SKIN WEEKLY 0.1 mg patch applied with 0.3mg patch 3 9 Active cloNIDine (CATAPRES-TTS) 0.3 mg/24 hr clonidine 0.3 mg/24 hr weekly transdermal patch Active metoprolol succinate XL (TOPROL-XL) 25 mg 24 hr tablet daily. Acti ve zolpidem (AMBIEN) 10 mg tablet zolpidem 10 mg tablet Active cranberry 400 mg capsule cranberry 400 mg capsule Take by oral route. Active cholecalciferol , vitamin D3, (VITAMIN D3) 1,000 units tablet daily. Active loratadine 10 mg capsule daily. Active ALPRAZolam (XANAX) 0.25 mg tablet Take 0.25 mg by mouth 3 (three) times a day as needed for anxiety. Active DEXILANT 30 mg capsule TAKE 1 CAPSULE BY MOUTH EVERY DAY 30 capsule 1 9 Active Active Problems No known active problems Social History Tobacco Use Types Packs/Day Years Used Date Smoking Tobacco: Never Smokeless Tobacco: Never Alcohol Use Standard Drinks/Week Comments Yes 0 (1 standard drink = 0.6 oz pur e alcohol) rare Childcare Answer Date Recorded Childcare Unknown 11/26/2018 Employment Answer Date Recorded Employment Unknown 11/26/2018 Purpose - Life Answer Date Recorded Purpose and direction in life Unknown Comments Unknown Sex and Gender Information Value Date Recorded Sex Assigned at Not on file Legal Sex Female 12:04 PM EDT Gender Identity Not on file Sexual Orientation Not on file Last Filed Vital Signs Vital Sign Reading Time Taken Comments Blood Pressure 126/84 12/07/2018 3:23 PM EDT Pulse 62 11/26/2018 10:20 AM EDT Temperature 36.8 C (98.3 F) 11/26/2018 8:01 AM EDT Respiratory Rate 16 11/26/2018 8:01 AM EDT Oxygen Saturation 100% 11/26/2018 10:00 AM EDT Inhaled Oxygen Concentration - - Weight 68 kg (150 lb) 12/07/2018 3:23 PM EDT Height 149.9 cm (4' 11 ) 12/07/2018 3:23 PM EDT Body Mass Index 30.3 12/07/2018 3:23 PM EDT Plan of Treatment Health Maintenance Due Date Last Done Comments Depression Screening 1952 Tobacco Screening 1952 DTaP,Tdap and Td Vaccines (1 - Tdap) 1961 Fall Risk Screening 12/02/2007 Zoster (Shingles) Vaccine (2 of 3) 03/02/2014 01/05/2014 COVID-19 Vaccine (4 - 2023-2 5 season) 2024 04/05/2021, 08/16/2020, 07/26/2020 Influenza Vaccine 02/28/2025 03/26/2021, , 04/20/2018, Additional history exists Medical Devices Not on file Insurance MEDICARE [employer] Care Teams Demand Equipment Repairer Relationship Specialty Start Date End Date Odell Goodson DO [address] [place] [address] PCP - General Internal Medicine 10/20/18
--- OUTSIDE RECORDS SUMMARY | 2024-12-30 08:56 | XMS_ITS | Clinical Summary ---
Author Organization [facility] Address [address] [place] [address] Care Team Providers Care Camp Coordinator Name Role Phone Odell Goodson Primary Care Provider [phone] Allergies Active Allergy Reactions Criticality Noted Date Comments Acetaminophen GI intolerance 12/19/2023 Hydrocodone Unknown 01/01/2023 Oxycodone Unknown,GI intolerance 12/19/2023 Oxycodone-Acetaminophen Unknown 06/17/2014 vomiting Rocuronium Shortness of breath,Unknown High 06/17/2014 Had severe breathing problems, was in ICU, with anesthesia Sulfamethoxazole Unknown 12/19/2023 Trimethoprim Unknown 12/19/2023 Medications aspirin 81 MG EC tablet Take 1 tablet by mouth Daily Active ALPRAZolam (Xanax) 0.25 MG tablet Takes rarely Active atorvastatin (Lipitor) 20 MG tablet Take 1 tablet by mouth Daily Takes 1/2 tab 3 Active cholecalciferol (Vitamin D-3) 25 MCG (1000 UT) tablet Take 1 tablet by mouth Daily Active loratadine (Claritin) 10 MG tablet 1 (one) time each day at the same time Active losartan (Cozaar) 25 MG tablet Take 1 tablet by mouth Daily 2 Active metoprolol succinate XL (Toprol-XL) 50 MG 24 hr tablet Take 50 mg by mouth Daily 3 Active alpha tocopherol (Vitamin E) 400 units capsule 1 capsule 1 (one) time each day at the same time Active zolpidem (Ambien) 10 MG tablet Take 1 tablet by mouth as needed at bedtime Active Ciclopirox 0.77 % gelIndications:O nychomycosis Apply thin layer to affected area once a day, 30 day supply 45 g 11 4 Active ezetimibe (Zetia) 10 MG tablet Take 10 mg by mouth Daily Active acetaminophen (Tylenol) 650 MG suppository Insert 650 mg into the rectum in the morning and 650 mg before bedtime. Active celecoxib (CeleBREX) 200 MG capsule Take 200 mg by mouth Daily Active fluorouracil (Efudex) 5 % creamIndications :Squamous cell carcinoma of skin Apply to directed areas on the right cheek and chest twice a day x 6 weeks. 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 01/01/2023 Encounters Date Type Department Care Team Description 11/15/2024 Telephone [facility] [address] [id number] Hiro Soler DPM ERROR 11/11/2024 2:00 PM EDT Procedure Visit [facility] [address] [facility] [address] [place] [id number] Hiro Soler DPM Tinea pedis of left foot (Primary Dx); Pain due to onychomycosis of toenails of both feet; Hav (hallux abducto valgus), left; Hallux rigidus of right foot 11/11/2024 Bamboo flowsheet [facility] [address] [facility] [address] [place] [id number] Hiro Soler DPM 11/11/2024 Travel 11/03/2024 Telephone [facility] [address] [place] [address] Hermelinda Rico MA 10/29/2024 Results Follow-Up [facility] [address] [place] [address] Lesley Palacios MD 10/25/2024 2:00 PM EDT Office Visit [facility] [address] [place] [address] Lesley Palacios MD Other seborrheic dermatitis (Primary Dx); Lentigines; Neoplasm of unspecified behavior of bone, soft tissue, and skin; Actinic keratosis 10/25/2024 Bamboo flowsheet [facility] [address] [place] [address] Lesley Palacios MD 10/25/2024 Travel from Last 3 Months Social History Tobacco Use Types Packs/Day Years Used Date Smoking Tobacco: Unknown Tobacco Cessation:Counseling Given: Yes Comments Unknown Sex and Gender Information Value Date Recorded Sex Assigned at Not on file Legal Sex Female 7:15 PM EDT Gender Identity Not on file Sexual Orientation Not on file Last Filed Vital Signs Vital Sign Reading Time Taken Comments Blood Pressure 125/74 04/15/2024 3:03 PM EDT Pulse 81 04/15/2024 3:03 PM EDT Temperature - - Respiratory Rate 16 11/11/2024 2:00 PM EDT Oxygen Saturation - - Inhaled Oxygen Concentration - - Weight 68.9 kg (152 lb) 11/11/2024 2:00 PM EDT Height 149.9 cm (4' 11 ) 11/11/2024 2:00 PM EDT Body Mass Index 30.7 11/11/2024 2:00 PM EDT Plan of Treatment Upcoming Encounters Date Type Department Care Team (Late st Contact Info) Description 01/20/2025 1:40 PM EDT Procedure Visit [facility] [address] [facility] [address] [place] [address] Hiro Soler, DPM [address] [facility] [address] [place] [address] 02/02/2025 2:35 PM EDT Office Visit [facility] [address] [place] [address] Lesley Palacios MD [address] [facility] [address] [place] [address] 02/22/2025 2:00 PM EDT Office Visit [facility] [address] [place] [address] Juancho Ryan, [address] [place] [address] 10/25/2025 2:05 PM EDT Office Visit [facility] [address] [place] [address] Lesley Palacios MD [address] [place] [address] Health Maintenance Due Date Last Done Comments Pneumococcal Vaccine: 65+ Ye ars (2 of 2 - PCV) 04/12/2016 04/12/2015 Influenza Vaccine (#1) 2025 , 04/30/2023, 04/23/2022, Additional history exists Procedures Procedure Name Priority Date/Time Associated Diagnosis Comments SKIN / NAIL BIOPSY Routine 10/25/2024 2: 15 PM EDT Neoplasm of unspecified behavior of bone, soft tissue, and skin CRYOTHERAPY SKIN LESION Routine 10/26/19 2:14 PM EDT Actinic keratosis SKIN / NAIL BIOPSY Routine 10/25/2024 2: 13 PM EDT Neoplasm of unspecified behavior of bone, soft tissue, and skin ZZDERMATOPATHOLOGY EXAM UNORDERABLE Routine 10/25/2024 12:00 AM EDT Other seborrheic dermatitis Neoplasm of unspecified behavior of bone, soft tissue, and skin DERMATOPATHOLOGY EXAM Routine 10/25/2024 12:00 AM EDT Neoplasm of unspecified behavior of bone, soft tissue, and skin from Last 3 Months Results * Lesion biopsy (10/25/2024 2:15 PM EDT) Narrative Laura Kendall LPN - 10/25/2024 2:15 PM EDT Type of biopsy: tangential Informed consent: discussed and consent obtained Informed consent comment: The risks and benefits of the biopsy were discussed. Risks include but are not limited to bleeding, infection, scarring, pain, and nerve damage. An opportunity to ask questions prior to the procedure was permitted and all questions were answered. Patient was prepped and draped in usual sterile fashion: area cleansed with alcohol. Anesthesia: the lesion was anesthetized in a standard fashion Anesthetic: 1% lidocaine w/ epinephrine 1-100,000 buffered w/ 8.4% NaHCO3 Instrument used: DermaBlade Hemostasis achieved with: electrodesiccation Outcome: patient tolerated procedure well Outcome comment: The specimen was placed in a prelabeled formalin container to be sent for pathology Post-procedure details: sterile dressing applied and wound care instructions given Post-procedure details comment: Emphasized need to contact clinic for any signs of infection, uncontrollable bleeding, or complications. Dressing type: bandage Additional details: Photo taken yes Amount of lidocaine used: 1.0 cc Lesley Palacios MD DERM PROCEDURE ORDERABLES Fin al Result * Cryotherapy, skin lesion (10/25/2024 2:14 PM EDT) Lesley Palacios MD DERM PROCEDURE ORDERABLES Fin al Result * Lesion biopsy (10/25/2024 2:13 PM EDT) Narrative Laura Kendall LPN - 10/25/2024 2:13 PM EDT Type of biopsy: tangential Informed consent: discussed and consent obtained Informed consent comment: The risks and benefits of the biopsy were discussed. Risks include but are not limited to bleeding, infection, scarring, pain, and nerve damage. An opportunity to ask questions prior to the procedure was permitted and all questions were answered. Patient was prepped and draped in usual sterile fashion: area cleansed with alcohol. Anesthesia: the lesion was anesthetized in a standard fashion Anesthetic: 1% lidocaine w/ epinephrine 1-100,000 buffered w/ 8.4% NaHCO3 Instrument used: DermaBlade Hemostasis achieved with: electrodesiccation Outcome: patient tolerated procedure well Outcome comment: The specimen was placed in a prelabeled formalin container to be sent for pathology Post-procedure details: sterile dressing applied and wound care instructions given Post-procedure details comment: Emphasized need to contact clinic for any signs of infection, uncontrollable bleeding, or complications. Dressing type: bandage Additional details: Photo taken yes Amount of lidocaine used: 0.5 cc us Lesley Palacios MD DERM PROCEDURE ORDERABLES Liam mooney Result * Dermatopathology exam (10/25/2024 12:00 AM EDT) SPECIMEN TYPE SPECIMEN: RT MALAR CHEEK [facility] ICD10 Code C44.329 [facility] PROTOCOL F - FLAT [facility] Final Diagnosis SQUAMOUS CELL CARCINOMA, CHRONICALLY INFLAMED AND TRANSECTED. COMMENT: Fab microinvasion is not seen but the tumor is intermittently transected along the base and extends to the periphery. [facility] Gross Text [facility] Microscopic Description Microscopic examination performed. [facility] SPECIMEN TYPE SPECIMEN: LT MED CHEST [facility] ICD10 Code D04.5 [facility] PROTOCOL F - FLAT [facility] Final Diagnosis SQUAMOUS CELL CARCINOMA, IN SITU, FEATURES OF AN ANTECEDENT SEBORRHEIC KERATOSIS, ACUTELY AND CHRONICALLY INFLAMED. COMMENT: The tumor is transected along a peripheral edge but the bulk does appear excised. [facility] Gross Text [facility] Microscopic Description Microscopic examination performed. [facility] CPT 94389*2 [facility] Skin (tissue) specimen (specimen) Topography unknown / Unknown 10/25/2024 2:13 PM EDT Comment:Differential Diagnos is: AK vs SCC Check Margins: No Size of lesion: 1.- x 0.7 cm Skin (tissue) specimen (specimen) Topography unknown / Unknown 10/25/2024 2:15 PM EDT Comment:Differential Diagnos is: ISK vs SCC Check Margins: No Size of lesion: 1.0 x 0.8 us Lesley Palacios MD LAB PATHOLOGY ORDERABLES Coni pena Result [facility] from Last 3 Months Insurance MEDICARE [employer] Care Teams Camp Coordinator Relationship Specialty Start Date End Date Odell Goodson DO [address] [facility] [place] [id number] PCP - General Internal Medicine 01/01/23
--- OUTSIDE RECORDS SUMMARY | 2024-12-30 09:13 | XMS_ITS | CCD ---
Author Organization [facility] Care Team Providers Care A P Mechanic Name Role Phone Odell Harrington Unavailable JUANY, [...] Unavailable BALL, DR RODRIGUEZ Primary Care Unavailable SUGAR HILL, DR JOELLEN Ontiveros Consulting Unavailable MOUKARBEL, JEREMIAS Consulting Unavailable Magno Pichardo II Unavailable DO dOell Harrington Primary Care Provider [phone] MD Magno Pichardo II Attending Provider [phone] DO Odell Harrington Primary Care Provider MD Magno Pichardo II Attending Provider [phone] MD Elijah Mayers Admit Provider MD Elijah Mayers Attending Provider GLO Berry Other Provider Unavailable GLO Mcmahan Other Provider Unavailable Leland RN Anne Other Provider Unavailable GLO Bell Other Provider Unavailable GLO Villegas Other Provider Unavailable GLO Kunz Other Provider Unavailable GLO Cardozo Other Provider Unavailable MD Annalisa Gar Other Provider MD Foster Santiago Other Provider Unavailable Dials, ADJUNCT WRITING INSTRUCTOR Lulú M Other Provider DO Genesis Andre Other Provider MD Bhupinder San Other Provider DO Ron Guajardo Other Provider MD Gilbert Lanier Other Provider [phone] MD Peri Grubbs Other Provider MD Raymond Hilton Other Provider Unavailable Jefe ADJUNCT WRITING INSTRUCTORPepe Gomez Other Provider MD Warren Mera Other Provider [phone] MD Flavio Woods Other Provider MD Saud Zuniga Other Provider MD Benjamin Plasencia Other Provider DO Roger Carranza Other Provider MD Ricardo Souza Other Provider MD Allen Andres Other Provider GERRY Earl Other Provider Born, ADJUNCT WRITING INSTRUCTORPepe Castañeda Other Provider Unavailable MD Huy Rosenbaum Other Provider MD Augie Ontiveros Other Provider MD Lc Lima Other Provider MD Mati Alberto Other Provider Unavailable MD Farhan Smith Other Provider DO Rakel Regan Other Provider DO Juan C Silverio R Other Provider [phone] MiniDO Jean-Pierre hernández Other Provider CHASITY Holland Other Provider DO Pj Knapp Other Provider MD Paula Ramirez Other Provider CHASITY Moore Other Provider CHASITY Zaragoza Other Provider [phone] MD Tushar Cohen Other Provider MD Vidal Akins Other Provider DO Aiden Stoll Other Provider MD Jordy Lima P Other Provider Ariane, GLO Mack Other Provider Unavailable DO Odell Harrington Primary Care Provider MD Magno Pichardo II Attending Provider [phone] MD Magno Pichardo II Attending Provider DO Odell Harrington Primary Care Provider MD Magno Pichardo II Attending Provider Odell Harrington MD Primary Care Provider DO Odell Harrington Primary Care Provider MD Magno Pichardo II Attending Provider Odell Harrington DO Primary Care Provider Magno Pichardo MD Attending Provider Jamal CODY, Ana Other Provider Unavailable Marj RN, Nuha Other Provider Unavailable Ray RN, Bernie Other Provider Unavailable Joaquina CODY, Zina Other Provider Unavailable Cas CODY, Carline Other Provider Unavailable Annalisa Gar MD Other Provider Genesis Andre DO Other Provider Bhupinder San MD Other Provider Bennett GAO Ron Other Provider Yolande MENENDEZ, Gilbert Other Provider [phone] Peri Grubbs MD Other Provider [phone] Sukh GAO, Roger Other Provider Yobani MENENDEZ, Raymond Other Provider Unavailable Jefe GASPAR, Patricia Other Provider Samaria MENENDEZ, Warren Other Provider Flavio Woods MD Other Provider Nadia MENENDEZ, Saud Other Provider Benjamin Plasencia MD Other Provider Roger Carranza DO Other Provider Harley MENENDEZ, Ricardo Other Provider Mckenna MENENDEZ, Allen Other Provider Rajat WIRELESS CONSTRUCTION MANAGER-C, Lashonda Connolly Other Provider Mario ADJUNCT WRITING INSTRUCTOR, Sloane Castañeda Other Provider Unavailable Ilsa MENENDEZ, Huy Calvert Other Provider Augie Ontiveros MD Other Provider Lc Lima MD Other Provider Remy MENENDEZ, Mati Other Provider Unavailable Farhan Smith MD Other Provider Rakel Regan DO Other Provider Silverio Irizarry DO Other Provider Skyler GASPAR, Carol Other Provider Pj Knapp DO Other Provider [phone] James MENENDEZ, Paula Castañeda Other Provider Antonella Moore APRN Other Provider Nik GASPAR, Chetna Mckenzie Other Provider Tushar Cohen MD Other Provider Tashi MENENDEZ Vidal Connolly Other Provider Stoll DOAiden T Other Provider Lucas Carrillo DO Other Provider Clarence MENENDEZ, Jordy Petersen Other Provider Ganesh Moreno MD Other Provider [phone] Joceline García APRN Other Provider Chandler MENENDEZ, Kraig Other Provider Vitor Everett MD Other Provider Ángel MENENDEZ, Dilip Velazquez Other Provider Be MENENDEZ, Raymond Quiñonez Other Provider Tramaine MENENDEZ, Javi Other Provider Aisha Sidhu APRN Other Provider Shimon Patel APRN Other Provider Martina Thakkar RN Other Provider Unavailable Dilip Laird MD Other Provider Saud Zuniga MD Other Provider Unavailable Dilip Laird MD Admit Provider Dilip Laird MD Attending Provider [phone] Odell Harrington DO Primary Care Provider Magno Pichardo MD Attending Provider [phone] Dilip Laird Attending Unavailable Dilip Laird Admitting Unavailable Ana Berry Consulting Unavailable Odell Harrington Primary Care Unavailable Gearheart, Nuha Consulting Unavailable Denscelso, Bernie Consulting Unavailable Joaquina, Zina Consulting Unavailable Cas, Carline Consulting Unavailable MassAnnalisa carlton Consulting Unavailable Genesis Andre Consulting Unavailable Bhupinder San Consulting Unavailable Ron Guajardo Consulting Unavailabl Gilbert Perdue Consulting Unavailable Peri Grubbs Consulting Unavailable MenRoger godfrey Consulting Unavailable YobaniRaymond pat Consulting Unavailable Patricia Mayberry Consulting Unavailabl e Samaria, Warren Consulting Unavailable Zraik, Flavio Consulting Unavailable Saud Zuniga Consulting Unavailable Benjamin Plasencia Consulting Unavailable Roger Carranza Consulting Unavailable Ricardo Souza Consulting Unavailable Allen Andres Consulting Unavailable Lashonda Earl Consulting Unavailable Sloane Martin Consulting Unavailable Huy Rosenbaum Consulting UnavailAugie Black Consulting Unavailable Lc Lima Unavailable Mati Alberto Consulting Unavailable Farhan Smith [...] Mendosa Consulting Unavaila Martina Mcdonald Consulting Unavailable Marino GOLD, Magno Castañeda Attending Unavailabl e [place] II, Magno Castañeda Admitting Unavailabl e [facility] Primary Care Unavailable [place] II, Magno Castañeda Attending Unavailabl e [place] II, Magno Castañeda Ad[facility] [place] II, Magno Castañeda Attending Unavailabl e [place] II, Magno M Ad[facility] Marino II, Magno Castañeda Attending Unavailabl e Marino II, Magno M Admitting [facility] [place] II, Magno Castañeda Attending Unavailabl e [place] II, Magno M Admitting [facility] Marino II, Magno Castañeda Attending Unavailabl e [place] II, Magno M Ad[facility] Unavailable Ana Berry Consulting Unavailable Nuha Mcmahan Consulting Unavailable Bernie Bell Consulting Unavailable Zina Kunz Consulting Unavailable Carline Cardozo Consulting Unavailable Annalisa Gar Consulting Unavailable Genesis Andre Consulting Unavailable Bhupinder San Consulting Unavailable Ron Guajardo Consulting UnavailGilbert Redman Consulting Unavailable Peri Grubbs Consulting Unavailable Roger Luz Consulting Unavailable Raymond Hilton Consulting Unavailable Patricia Mayberry Consulting Unavailalcides calvert WassoWarren jane Consulting Unavailable Flavio Woods Consulting Unavailable Saud [...] Holland Consulting Unavailable Pj Knapp Consulting Unavailable DaromaPaula gee Consulting Unavailable Antonella Moore Consulting Unavailable Chetna Zaragoza Consulting Unavailable Alayamileth Alaa Consulting Unavailable Vidal Akins Consulting Unavailable Aiden Stoll Consulting Unavailable Lucas Carrillo Consulting Unavailable Jordy Lima Consulting Unavailable Ganesh Moreno Consulting Unava ilable Joceline García Consulting Unavailable Kraig Arteaga Consulting Unavailable Vitor Everett Consulting Unavailable Dilip Neal Consulting Unavailable Raymond Lr S Consulting Unavailable Javi Redd Consulting Unavailable Aisha Sidhu Consulting Unavailable Bolzan-Wanda Nico[place]thero Consulting Unavaila Martina Mcdonald Consulting Unavailable Dilip Laird Consulting Unavailable Magno Pichardo II Attending UnavailMagno Blevins II Admitting UnavailOdell Rodriguez Primary Care Unavailable Odell Harrington DO Primary Care Provider Magno Pichardo MD Attending Provider [phone] Ana Berry RN Other Provider Unavailable Nuha Mcmahan RN Other Provider Unavailable Bernie Bell RN Other Provider Unavailable Zina Kunz RN Other Provider Unavailable Carline Cardozo RN Other Provider Unavailable Annalisa Gar MD Other Provider Thai DOGenesis Other Provider Bhupinder San MD Other Provider Ron Guajardo DO Other Provider Yolande MENENDEZ, Gilbert Other Provider Peri Grubbs MD Other Provider Roger Luz DO Other Provider [phone] Raymond Hilton MD Other Provider Unavailable Patricia Mayberry APRN Other Provider Warren Mera MD Other Provider Flavio Woods MD Other Provider Saud Zuniga MD Other Provider Unavailable Benjamin Plasencia MD Other Provider Roger Carranza DO Other Provider [phone] Ricardo Souza MD Other Provider Allen Andres MD Other Provider Rajat WIRELESS CONSTRUCTION MANAGER-C, Lashonda Connolly Other Provider Sloane Martin APRN Other Provider Unavailable Huy Rosenbaum MD Other Provider Augie Ontiveros MD Other Provider Lc Lima MD Other Provider Mati Alberto MD Other Provider Unavailable Farhan Smith MD Other Provider Rakel Regan DO Other Provider Silverio Irizarry DO Other Provider Carol Holland APRN Other Provider Pj Knapp DO Other Provider [phone] James MENENDEZ, Paula Castañeda Other Provider Antonella Moore APRN Other Provider Nik GASPAR, Chetna Mckenzie Other Provider Vicki MENENDEZ, Tushar Other Provider Tashi MENENDEZ, Vidal Connolly Other Provider Stoll DO, Aiden T Other Provider Gerardo GAO, Lucas Other Provider Clarence MENENDEZ, Jordy Petersen Other Provider Josh MENENDEZ, Ganesh Vaughan Other Provider [phone] Raquel GASPAR, Joceline Other Provider Chandler EMNENDEZ, Kraig Other Provider Karlos MENENDEZ, Vitor Other Provider Ángel MENENDEZ, Dilip Velazquez Other Provider [phone] Be MENENDEZ, Raymond Quiñonez Other Provider Tramaine MENENDEZ, Javi Other Provider Aisha Sidhu APRN Other Provider Shimon Patel APRN Other Provider Ariane CODY, Martina Other Provider Unavailable Dilip Laird MD Other Provider Dilip Laird MD Admit Provider Dilip Laird MD Attending Provider CHANDLER GARDUNO Referring Unavailabl e DERISO, JEAN-PIERRE Referring Unavailable DERISO, JEAN-PIERRE Referring Unavailable DERISO, JEAN-PIERRE Attending Unavailable ODILIA MCCALLUM Attending Unavailable JEREMIAS MCGUIRE Attending Unavailable Odell Harrington MD Primary Care Provider Odell Harrington DO Primary Care Provider HIRO HENRY Attending Unavailable HIRO HENRY Attending Unavailable HIRO HENRY Attending Unavailable HIRO HENRY Attending Unavailable HIRO HENRY Attending Unavailable ANNABELLA PALACIOS Attending Unavailable LINDSEY HUANG Attending Unavailable Allergies Allergy Classification Reported Allergen(s) Allergy Type Date of Onset Reaction(s) Facility (17 sources) Acetaminophen / HYDROcodone; Translations: [Vicodin] Drug Allergy 03-04-20 12 Unknown [facility] Repository (15 sources) Acetaminophen / oxyCODONE Drug Allergy Unknown [facility] Other (15 sources) Ciprofloxacin Drug Allergy Unknown [facility] Other (16 sources) Rocuronium; Translations: [ROCURONIUM] Drug Allergy 06-17-20 14 Unknown [facility] Repository (15 sources) Sulfamethoxazole / Trimethoprim Drug Allergy Unknown [facility] Other (2 sources) Acetaminophen / oxyCODONE Drug Allergy 03-04-20 12 [facility] Repository (2 sources) Rocuronium Drug Allergy 03-17-20 12 [facility] Repository (12 sources) Vicodin *ANALGESICS - OPIOID* Propensity to adverse reactions Unknown [facility] Other (20 sources) Acetaminophen Drug Allergy 08-20-19 24 GI intolerance [facility] (20 sources) HYDROcodone Drug Allergy 01-02-20 23 Unknown [facility] (20 sources) oxyCODONE Drug Allergy 08-20-19 24 Unknown, GI intolerance [facility] (17 sources) Rocuronium Drug Allergy 08-20-19 24 breathing difficulty [facility] (20 sources) Sulfamethoxazole Drug Allergy 08-20-19 24 Unknown [facility] (20 sources) Trimethoprim Drug Allergy 08-20-19 24 Unknown [facility] (12 sources) Acetaminophen / oxyCODONE; Translations: [OXYCODONE-ACETAMIN OPHEN] Drug Allergy 06-17-20 14 Unknown [facility] (11 sources) Rocuronium Drug Allergy 06-17-20 14 Shortness of breath, Unknown [facility] (1 source) Acetaminophen / HYDROcodone; Translations: [HYDROCODONE-ACETAM INOPHEN] Drug Allergy 06-17-20 14 [facility] Repository Medications Current Medications Medication Drug Class(es) Dates Sig (Normalized) Sig (Original) acetaminophen 325 mg oral tablet (20 sources) Start: 08-02-2024 take 2 tablets by mouth every six hours as needed for pain Acetaminophen (Tylenol) 325 mg Tablet Active 650 MG PO Q6H as needed for Pain 0 August 02, 2024 1:00am Start: 07-08-2024 End: 08-02-2024 Acetaminophen (Arthritis Yong n Reliever) 650 mg tablet extended release Discontinued 1300 MG PO Bedtime July 08, 2024 1:00am August 02, 2024 10:09am On Hold: Resume on 08/19/24. Start: 09-02-2023 End: 08-02-2024 take 2 tablets by mouth every eight hours Acetaminophen 500 mg tablet Discontinued 1000 MG PO Q8H 180 30 July 08, 2024 1:00am August 02, 2024 10:09am DO NOT RECONCILE UNTIL DOS:07/19/24. MED TO BED Start: 09-02-2023 take 1000 mg by mout h every eight hours Acetaminophen Active 1000 MG PO Q8H 0 September 02, 2023 12:00am Start: 08-20-2023 End: 08-20-2023 take 2 tablets by mouth every eight hours Acetaminophen 500 mg tablet Discontinued 1000 MG PO Q8H 180 August 20, 2023 1:00am August 20, 2023 3:21pm DOT NOT RECONCILE UNTIL DOS:09/01/2023 MED TO BED Start: 08-20-2023 End: 09-02-2023 take 2 tablets by mouth every twelve hours as needed for pain Acetaminophen 650 mg tablet extended release Discontinued 1300 MG PO Every 12 hours as needed for pain, mild August 20, 2023 1:00am September 02, 2023 3:01pm Start: 08-20-2023 End: 08-20-2023 take 1000 mg [...] 2023 12:00am September 02, 2023 2:01pm take 650 mg rectal r oute in the morning acetaminophen (Tylenol) 650 MG suppository Insert 650 mg into the rectum in the morning and 650 mg before bedtime. Active take 1 capsule by mo uth every six hours Acetaminophen 500 MG 1 capsule as needed Orally every 6 hrs Active ALPRAZolam 0.25 mg oral tablet (20 sources) Benzodiazepine Start: 06-08-2024 End: 07-08-2024 take 1 tablet by mouth once daily as needed for anxiety Alprazolam 0.25 mg tablet Active 0.25 MG PO Daily as needed for anxiety July 08, 2024 1:00am Start: 09-15-2023 End: 09-19-2023 take 1 tablet by mouth every six hours as needed for anxiety Alprazolam 0.25 mg Tablet Discontinued 0.25 MG PO Q6H as needed for Anxiety 0 September 15, 2023 12:00am September 19, 2023 11:43am Start: 08-25-2023 End: 09-15-2023 take 1 tablet by mouth twice daily Alprazolam 0.25 mg tablet Discontinued 0.25 MG PO Twice daily August 25, 2023 1:00am September 15, 2023 9:24am take 1 tablet by christopher every twelve hours ALPRAZolam 0.25 MG 1 tablet Orally Twice a day prn Active aspirin 81 mg delayed release oral tablet (20 sources) Platelet Aggregation Inhibitor, Nonsteroidal Anti-inflammatory Drug Start: 07-08-2024 take 1 tablet by mouth once daily Aspirin 81 mg Tablet,Delayed Release (Dr/Ec) Active 81 MG PO Daily July 08, 2024 1:00am On Hold: Resume on 08/25/24. Start: 08-20-2023 End: 09-15-2023 take 1 tablet by mouth once daily Aspirin (Adult Aspirin Regimen) 81 mg tablet,delayed release (DR/EC) Discontinued 81 MG PO Daily August 20, 2023 1:00am September 15, 2023 9:24am Start: 08-20-2023 End: 08-02-2024 take 1 tablet by mouth twice daily Aspirin 81 mg tablet,delayed release (DR/EC) Discontinued 81 MG PO Twice daily 70 35 July 08, 2024 1:00am August 02, 2024 10:09am DO NOT RECONCILE UNTIL DOS:07/19/24. MED TO BED take 1 tablet by christopher th once daily Aspirin 81 81 MG 1 tablet Orally Once a day Active atorvastatin 20 mg oral tablet (20 sources) HMG-CoA Reductase Inhibitor Start: 08-20-2023 take 10 mg by mouth once daily at bedtime Atorvastatin 20 mg tablet Active 10 MG PO Daily at bedtime August 20, 2023 1:00am Start: 08-20-2023 take 10 mg by mouth once daily at bedtime Atorvastatin Active 10 MG PO Daily at bedtime August 20, 2023 12:00am Start: 07-18-2022 atorvastatin ( Lipitor) 20 MG tablet Take 1 tablet by mouth Daily Takes 1/2 tab 07/18/2022 Active Atorvastatin Randy cium 10 MG 1 Orally Once a day Active cholecalciferol 0.01 mg oral capsule (20 sources) Vitamin D Start: 07-08-2024 take 1 capsule by mouth once daily Cholecalciferol (Vitamin D3) (Vitamin D3) 10 mcg (400 unit) capsule Active 800 UNIT PO Daily July 08, 2024 1:00am Start: 07-08-2024 take 1 capsule by [facility] once daily Cholecalciferol (Vitamin D3) (Vitamin D3) 10 mcg (400 unit) capsule Active 800 UNIT PO Daily July 08, 2024 12:00am Start: 08-20-2023 End: 06-08-2024 take 1 capsule by mouth once daily Cholecalciferol (Vitamin D3) 50 mcg (2,000 unit) capsule Discontinued 50 MCG PO Daily September 15, 2023 9:23am June 08, 2024 3:22pm take 1 tablet by christopher once daily cholecalciferol (Vitamin D-3) 25 MCG (1000 UT) tablet Take 1 tablet by mouth Daily Active diphenhydrAMINE hydrochloride 25 mg oral tablet (20 sources) Histamine-1 Receptor Antagonist Start: 07-08-2024 take 1 tablet by mouth once daily in the morning Diphenhydramine Hcl (Allergy (Diphenhydramine)) 25 mg tablet Active 25 MG PO Every morning July 08, 2024 1:00am Start: 08-20-2023 End: 08-25-2023 take 1 capsule by mouth once daily at bedtime as needed Diphenhydramine Hcl (Allergy (Diphenhydramine)) 25 mg capsule Discontinued 25 MG PO Daily at bedtime as needed for allergy symptoms August 20, 2023 1:00am August 25, 2023 11:55am docusate sodium 100 mg oral capsule (2 sources) take 1 capsule by mouth every twenty-four hours Stool Softener 100 MG 1 capsule as needed Orally Once a day Active ezetimibe 10 mg oral tablet (16 sources) Dietary Cholesterol Absorption Inhibitor Start: 11-19-19 take 1 tablet by mouth at bedtime Ezetimibe (Zetia) 10 mg tablet Active 10 MG PO Bedtime November 19, 2023 12:00am fluorouracil 50 mg/ml topical cream (1 source) Nucleoside Metabolic Inhibitor Start: 11-05-19 fluorouracil (Efudex) 5 % cream Indications: Squamous cell carcinoma of skin Apply to directed areas on the right cheek and chest twice a day x 6 weeks. 30 day supply 40 g 1 11/04/2024 Active losartan potassium 25 mg oral tablet (20 sources) Angiotensin 2 Receptor Alexandre Start: 11-19-19 Losartan Active MG PO November 18, 2023 11:00pm Start: 11-19-2023 Losartan Activ e MG PO November 19, 2023 12:00am Start: 02-22-2022 End: 09-19-2023 take 1 tablet by mouth once daily losartan (Cozaar) 25 MG tablet Take 1 tablet by mouth Daily 02/22/2022 Active 24 hr metoprolol succinate 25 mg extended release oral tablet (20 sources) beta-Adrenergic Alexandre Start: 08-20-2023 End: 09-15-2023 take 1 tablet by mouth once daily in the evening Metoprolol Succinate 25 mg tablet extended release 24 hr Active 25 MG PO Every evening September 15, 2023 9:23am Start: 07-21-2022 take 1 tablet by christopher th once daily metoprolol succinate XL (Toprol-XL) 50 MG 24 hr tablet Take 50 mg by mouth Daily 07/21/2022 Active Start: 07-21-2022 take 1 tablet by christopher th every twenty-four hours in the morning metoprolol succinate XL (Toprol-XL) 50 MG 24 hr tablet Take 50 mg by mouth in the morning. 07/21/2022 Active take 0.5 tablet by m outh once daily Metoprolol Succinate ER 50 MG 1/2 tablet Orally Once a day Active mupirocin [...] release(DR/EC) Active 20 MG PO Daily September 19, 2023 12:00am Start: 08-20-2023 End: 08-25-2023 take 1 capsule by mouth once daily in the morning Omeprazole 20 mg capsule,delayed release(DR/EC) Discontinued 20 MG PO Every morning August 20, 2023 1:00am August 25, 2023 11:56am propylene glycol 6 mg/ml ophthalmic solution (20 sources) Start: 07-08-2024 Propylene Glyc ol (Systane Balance) 0.6 % drops Active 1 DROPS EYE-BOTH Daily as needed for dry eye(s) July 08, 2024 1:00am Start: 08-20-2023 End: 08-25-2023 Propylene Glycol (Systane Ba lnida) 0.6 % drops Discontinued 1 DROPS EYE-BOTH Daily as needed for dry eye(s) August 20, 2023 1:00am August 25, 2023 11:56am vitamin e 450 mg oral capsule (20 sources) Start: 07-08-2024 take 450 mg by mouth once daily vitamin E Active 450 MG PO Daily July 08, 2024 1:00am Start: 08-20-2023 End: 07-08-2024 take 1 capsule by mouth once daily Vitamin E 268 mg (400 unit) capsule Discontinued 268 MG PO Daily August 20, 2023 1:00am July 08, 2024 10:45am alpha tocopherol (Vitamin E) 400 units capsule 1 capsule 1 (one) time each day at the same time Active Vitamin E 100 UNIT (15 sources) Vitamin E 100 UN IT as directed Orally Active Completed/Discontinued Medications Medication Drug Class(es) Dates Sig (Normalized) Sig (Original) amoxicillin 500 mg oral capsule (5 sources) Penicillin-class Antibacterial Start: 09-22-2024 End: 10-25-2024 take 4 capsules by mouth once amoxicillin (Amoxil) 500 MG capsule TAKE 4 CAPSULES BY MOUTH ONCE DIRECTED FOR SBE PROPHYLAXIS 09/22/2024 10/25/2024 Discontinued (Med list cleanup) Start: 06-06-2023 take 1 tablet by christopher th every twelve hours Amoxicillin 875 MG 1 tablet Orally Twice a day for 5 days May, Active ascorbic acid 1000 mg extended release oral tablet (17 sources) Vitamin C Start: 08-20-2023 End: 08-20-2023 take 1 tablet by mouth every twelve hours Ascorbic Acid (Vitamin C) 1,000 mg tablet extended release Discontinued 1000 MG PO Every 12 hours August 20, 2023 1:00am August 20, 2023 3:21pm azithromycin 250 mg oral tablet (20 sources) Macrolide Antimicrobial Start: 06-24-2024 End: 07-08-2024 Azithromycin 250 mg tablet Discontinued 250 MG PO .COMPLEX 6 June 24, 2024 1:00am July 08, 2024 9:10am 2 tabs on first day followed by 1 tab on days 2-5 Start: 09-19-2023 End: 06-06-2024 Azithromycin 250 mg tablet D iscontinued 250 MG PO As Directed 12 02March 12, 2024 2:35pm June 06, 2024 5:02pm Start: 08-25-2023 End: 09-01-2023 Azithromycin 250 mg tablet D iscontinued 250 MG PO As Directed 12 02August 25, 2023 1:00am September 01, 2023 10:32am Start: 10-08-2022 Azithromycin 2 50 MG as directed Orally daily for 5 days Apr, Not-Taking/PRN Calcium-Vitamin D-Vitamin K (Calcium+Menaq7) 600-1000-90 MG-UNT-MCG tablet (9 sources) End: 10-25-2024 Calcium-Vitamin D-Vitamin K (Calcium+Menaq7) 600-1000-90 MG-UNT-MCG tablet 10/25/2024 Discontinued (Med list cleanup) Calcium-Vitamin D-Vitamin K (Calcium+Menaq7) 600-1000-90 MG-UNT-MCG tablet 1 (one) time each day at the same time. Active cefadroxil 500 mg oral capsule (20 sources) Cephalosporin Antibacterial Start: 07-08-2024 End: 08-02-2024 take 1 capsule by mouth every twelve hours Cefadroxil 500 mg capsule Discontinued 500 MG PO Q12H 14 July 08, 2024 1:00am August 02, 2024 10:09am DO NOT RECONCILE UNTIL DOS:07/19/24. MED TO BED Start: 09-02-2023 End: 09-15-2023 take 1 capsule by mouth twice daily Cefadroxil 500 mg Capsule Discontinued 500 MG PO Twice daily 0 September 02, 2023 1:00am September 15, 2023 9:24am Start: 08-20-2023 End: 09-15-2023 take 1 capsule by mouth every twelve hours Cefadroxil 500 mg capsule Discontinued 500 MG PO Q12H 14 August 20, 2023 1:00am September 15, 2023 9:24am DOT NOT RECONCILE UNTIL DOS:09/01/2023 MED TO BED cefuroxime 250 mg oral tablet (9 sources) Cephalosporin Antibacterial End: 10-25-2024 cefuroxime (Ceftin) 250 MG tablet 10/25/2024 Discontinued (Therapy completed) celecoxib 200 mg oral capsule (20 sources) Nonsteroidal Anti-inflammatory Drug Start: 07-16-2024 End: 08-02-2024 take 1 capsule by mouth once daily Celecoxib 200 mg capsule Discontinued 0 .ROUTE .COMPLEX July 16, 2024 3:03pm August 02, 2024 10:09am TAKE 1 CAPSULE BY MOUTH EVERY DAY Start: 01-12-2024 End: 07-16-2024 take 1 capsule by mouth once daily Celecoxib 200 mg capsule Discontinued 200 MG PO Daily January 12, 2024 8:33am July 16, 2024 3:03pm Start: 12-19-2023 End: 01-12-2024 take 1 capsule by mouth once daily Celecoxib (Celebrex) 100 mg capsule Discontinued 100 MG PO Daily December 19, 2023 12:00am January 12, 2024 8:52am ciclopirox 0.0077 mg/mg topi randy gel (20 sources) Start: 11-19-2023 End: 06-08-2024 Ciclopirox 0.77 % gel Discontinued TOPICAL November 19, 2023 12:00am June 08, 2024 3:22pm Start: 11-19-2023 Ciclopirox Act piotr TOPICAL November [...] times daily 100 30 September 15, 2023 8:23am September 19, 2023 10:43am apply to single elbow, wrist or hand; for hand includes palm/fingers/back of hand Voltaren 1 % as directed Externally Active docusate sodium 50 mg / sennosides, long-term 8.6 mg oral tablet (20 sources) Start: 07-08-2024 End: 08-02-2024 take 2 tablets by mouth once daily Sennosides-Docusate Sodium (Senokot-S) 8.6-50 mg tablet Discontinued 2 TAB PO daily 60 July 08, 2024 1:00am August 02, 2024 10:09am DO NOT RECONCILE UNTIL DOS:07/19/24. MED TO BED Start: 08-20-2023 End: 09-15-2023 take 2 tablets by mouth once daily Sennosides-Docusate Sodium 8.6-50 mg Tablet Discontinued 2 TAB PO Daily 0 September 02, 2023 1:00am September 15, 2023 9:24am DULoxetine 20 mg delayed release oral capsule (9 sources) Serotonin and Norepinephrine Reuptake Inhibitor Start: 08-02-2024 End: 10-25-2024 take 1 capsule by mouth once daily DULoxetine (Cymbalta) [address] capsule Take 20 mg by mouth Daily 08/02/2024 10/25/2024 Discontinued (Therapy completed) take 1 capsule by [facility] every twenty-four hours DULoxetine HCl 30 MG 1 capsule Orally Once a day Active ergocalciferol 1.25 mg oral capsule (11 sources) Provitamin D2 Compound Start: 05-19-2024 End: 10-25-2024 ergocalciferol (Vitamin D2) 1.25 MG (24740 UT) capsule TAKE 1 CAPSULE BY MOUTH ONCE EVERY 7 DAYS 05/19/2024 10/25/2024 Discontinued (Therapy completed) Start: 05-19-2024 End: 07-08-2024 take 1 capsule by mouth every week Ergocalciferol (Vitamin D2) 1,250 mcg (50,000 unit) capsule Discontinued 1250 MCG PO Q7D 8 60 May 19, 2024 1:00am July 08, 2024 10:41am fluocinonide 0.5 mg/ml topical solution (20 sources) Corticosteroid Start: 11-19-2023 End: 06-08-2024 Fluocinonide 0.05 % solution Discontinued TOPICAL November 19, 2023 12:00am June 08, 2024 3:23pm Start: 11-19-2023 Fluocinonide A ctive TOPICAL November 18, 2023 11:00pm Start: 10-23-2023 End: 10-25-2024 fluocinonide (Lidex) 0.05 % external solution Indications: Other seborrheic dermatitis Apply to affected areas on the scalp, up to twice a day when flared, 30 day supply 60 mL 11 10/23/2023 10/25/2024 Discontinued (Therapy completed) hydrocortisone 10 mg/ml topical cream (10 sources) Corticosteroid Start: 03-12-2024 End: 06-08-2024 Hydrocortisone (Anti-Itch (Hc)) 1 % cream Discontinued 1 APPLIC TOPICAL Twice daily as needed March 12, 2024 12:00am June 08, 2024 3:23pm loratadine 10 mg oral tablet (20 sources) Start: 09-15-2023 End: 09-19-2023 take 1 tablet by mouth once daily in the morning Loratadine 10 mg Tablet Discontinued 10 MG PO Every morning September 15, 2023 12:00am September 19, 2023 11:43am Kf-Nmr-Suagy-Calcium Carb-K1 (Women's 50 Plus Multivitamin) 400 mcg-500 mg calcium-20 mcg tablet (17 sources) Start: 08-20-2023 End: 06-08-2024 take 1 tablet by mouth once daily Qw-Khj-Nutyg-Calcium Carb-K1 (Women's 50 Plus Multivitamin) 400 mcg-500 mg calcium-20 mcg tablet Discontinued 1 TAB PO Daily August 20, 2023 1:00am June 08, 2024 3:23pm Start: 08-20-2023 End: 06-08-2024 take 1 tablet by mouth once daily Nk-Ipa-Llqpb-Calcium Carb-K1 (Women's 50 Plus Multivitamin) 400 mcg-500 mg calcium-20 mcg tablet Discontinued 1 TAB PO Daily August 20, 2023 12:00am June 08, 2024 2:23pm Start: 08-20-2023 take 1 tablet by christopher th once daily Nq-Qem-Akgve-Calcium Carb-K1 (Women's 50 Plus Multivitamin) 400 mcg-500 mg calcium-20 mcg tablet Active 1 TAB PO Daily August 20, 2023 1:00am Start: 08-20-2023 take 1 tablet by christopher th once daily It-Yxf-Sofaa-Calcium Carb-K1 (Women's 50 Plus Multivitamin) 400 mcg-500 mg calcium-20 mcg tablet Active 1 TAB PO Daily August 20, 2023 12:00am Nirmatrelvir-Ritonavir (Paxlovid) 300 mg (150 mg x 2)-100 mg tablets,dose pack (10 sources) Start: 04-15-2024 End: 06-06-2024 Nirmatrelvir-Ritonavir (Paxlovid) 300 mg (150 mg x 2)-100 mg tablets,dose pack Discontinued 0 PO .COMPLEX April 15, 2024 12:00am June 06, 2024 5:02pm take TWO 150 mg tablets of nirmatrelvir with ONE 100 mg tablet of ritonavir twice daily for 5 days PO Start: 04-15-2024 End: 06-06-2024 Nirmatrelvir-Ritonavir (Paxl ovid) 300 mg (150 mg x 2)-100 mg [...] as needed for Nausea July 08, 2024 1:00am August 02, 2024 10:09am DO NOT RECONCILE UNTIL DOS:07/19/24. MED TO BED Start: 08-20-2023 End: 09-15-2023 take 1 tablet by mouth every eight hours as needed for nausea Ondansetron Hcl 4 mg tablet Discontinued 4 MG PO Q8H as needed for Nausea August 20, 2023 1:00am September 15, 2023 9:24am DOT NOT RECONCILE UNTIL DOS:09/01/2023 MED TO BED oxyCODONE hydrochloride 5 mg oral tablet (20 sources) Opioid Agonist Start: 07-08-2024 End: 08-02-2024 take 1 tablet by mouth every four hours as needed for pain Oxycodone 5 mg tablet Discontinued 5 MG PO Q4H as needed for Pain 40 7 July 08, 2024 August 02, 2024 10:09am DO NOT RECONCILE UNTIL DOS:07/19/24. MED TO BED Start: 08-20-2023 End: 09-19-2023 take 1 tablet by mouth every four hours as needed for pain Oxycodone 5 mg Tablet Discontinued 5 MG PO Q4H as needed for Pain Scale 6 - 10 35 7 September 15, 2023 September 19, 2023 11:44am pantoprazole 40 mg delayed release oral tablet (14 sources) Proton Pump Inhibitor Start: 09-15-2023 End: 09-19-2023 take 1 tablet by mouth once daily Pantoprazole 40 mg Tablet,Delayed Release (Dr/Ec) Discontinued 40 MG PO Daily September 15, 2023 12:00am September 19, 2023 11:44am polyethylene glycol 3350 50710 mg powder for oral solution (20 sources) Osmotic Laxative Start: 07-08-2024 End: 07-08-2024 Polyethylene Glycol 3350 (Miralax) 17 gram/dose powder Discontinued 17 GM PO daily 01 03July 08, 2024 1:00am July 08, 2024 10:45am 1 packed mixed with 8 ounces of fluid. Start: 08-20-2023 End: 09-15-2023 Polyethylene Glycol 3350 (Mi ralax) 17 gram/dose powder Discontinued 17 GM PO daily 01 03August 20, 2023 1:00am September 15, 2023 9:24am 1 packed mixed with 8 ounces of fluid. DOT NOT RECONCILE UNTIL DOS:09/01/2023 MED TO BED predniSONE 10 mg oral tablet (20 sources) Start: 07-08-2024 End: 08-02-2024 take 1 tablet by mouth once daily Prednisone 10 mg tablet Discontinued 10 MG PO daily 04 08July 08, 2024 1:00am August 02, 2024 10:09am DO NOT RECONCILE UNTIL DOS:07/19/24. MED TO BED Start: 09-15-2023 End: 12-19-2023 take 3 tablets by mouth once daily Prednisone 10 mg Tablet Discontinued 30 MG PO Daily September 15, 2023 9:23am December 19, 2023 2:42pm Start: 09-15-2023 End: 12-19-2023 take 30 mg by mouth once daily Prednisone Discontinued 30 MG PO Daily September 15, 2023 8:23am December 19, 2023 1:42pm Start: 08-20-2023 End: 09-15-2023 take 1 tablet by mouth once daily Prednisone 10 mg Tablet Discontinued 10 MG PO Daily September 02, 2023 1:00am September 15, 2023 9:23am traMADol hydrochloride 50 mg oral tablet (20 sources) Opioid Agonist Start: 07-08-2024 End: 08-02-2024 take 1 tablet by mouth every six hours as needed for pain Tramadol 50 mg tablet Discontinued 50 MG PO q6h as needed for Pain 24 01July 08, 2024 1:00am August 02, 2024 10:09am DO NOT RECONCILE UNTIL DOS:07/19/24. MED TO BED Start: 08-20-2023 End: 03-18-2024 take 1 tablet by mouth every six hours as needed for pain Tramadol 50 mg Tablet Discontinued 50 MG PO Q6H as needed for Pain Scale 1 - 5 0 September 02, 2023 1:00am September 15, [...] Daily at bedtime August 20, 2023 1:00am October 27, 2023 10:11pm Start: 10-01-2022 Zolpidem Tartr ate 10 MG TAKE 1 TABLET BY MOTH AT BEDTIME NEEDED FOR INSOMNIA for 90 Sep, Active Problems Active Problems Problem Classification Problem Date Documented Date Episodic/Chronic Acquired foot deformities (2 sources) Toe joint rigid; Translations: [Hallux rigidus, right foot] 04-15-2024 Chronic Acquired foot deformities (3 sources) Hallux valgus (acquired), left foot; Translations: [Hallux valgus (acquired)] 04-15-2024 Chronic Acute bronchitis (17 sources) Acute infective bronchitis; Translations: [Acute bronchitis due to other specified organisms] Episodic Acute posthemorrhagic anemia (5 sources) Acute posthemorrhagic anemia; Translations: [Acute posthemorrhagic anemia] 09-19-2023 Episodic Administrative/socia l admission (20 sources) Other reduced mobility; Translations: [Impaired mobility and activities of daily living] Onset: 01-21-202 5 03-06-2024 Episodic Allergic reactions (12 sources) Atopic dermatitis; Translations: [Atopic dermatitis, unspecified] Chronic Anxiety disorders (20 sources) Generalized anxiety disorder; Translations: [Generalized anxiety disorder] Chronic Cardiac dysrhythmias (20 sources) Paroxysmal atrial fibrillation; Translations: [Paroxysmal atrial fibrillation] Onset: 2 Chronic Cataract (12 sources) After-cataract of bilateral eyes; Translations: [Other secondary cataract, bilateral] Onset: 3 01-01-2023 Chronic Complications of surgical procedures or medical care (10 sources) Postoperative hematoma formation; Translations: [Hematoma complicating a procedure] 07-21-2024 Episodic Congestive heart failure; nonhypertensive (2 sources) Chronic diastolic (congestive) heart failure; Translations: [Chronic diastolic (congestive) heart failure] Onset: 2 Chronic Coronary atherosclerosis and other heart disease (20 sources) Coronary arteriosclerosis; Translations: [Atherosclerotic heart disease of [place] coronary artery without angina pectoris] Onset: 2 [...] insomnia; Translations: [Primary insomnia] 10-27-2023 Chronic Mycoses (6 sources) Pain in toe; Translations: [Tinea unguium] 04-15-2024 Episodic Neoplasms of unspecified nature or uncertain behavior (2 sources) Neoplastic disease; Translations: [Neoplasm of unspecified behavior of bone, soft tissue, and skin] 10-25-2024 Episodic Nonspecific chest pain (7 sources) Precordial pain; Translations: [Other chest pain] Onset: 3 Episodic Occlusion or stenosis of [...] joint replacement surgery] 10-07-2023 Chronic Other aftercare (11 sources) Aftercare following joint replacement surgery; Translations: [...] knee joint Chronic Other connective tissue disease (14 sources) History of total knee arthroplasty; Translations: [Presence of right artificial knee joint] 09-02-2023 Chronic Other connective tissue disease (3 sources) Presence of right artificial knee joint; Translations: [Knee joint replacement] Onset: 4 09-01-2023 Chronic Other connective tissue disease (6 sources) History of total hip arthroplasty; Translations: [Presence of left artificial hip joint] Onset: 5 07-20-2024 Chronic Other connective tissue disease (20 sources) Presence of left artificial hip joint; Translations: [Hip joint replacement] Onset: 5 07-20-2024 Chronic Other connective tissue disease (15 sources) Myalgia caused by statin; Translations: [Myalgia, unspecified site] Episodic Other inflammatory condition of skin (2 sources) Seborrheic dermatitis; Translations: [Other seborrheic dermatitis] 10-25-2024 Episodic Other nervous system disorders (1 source) Other chronic pain; Translations: [OTHER CHRONIC PAIN] Onset: 3 Chronic Other nervous system disorders (14 sources) Postoperative pain ; Translations: [Other acute postprocedural pain] 09-03-2023 Episodic Other nervous system disorders (1 source) Other acute postprocedural pain; Translations: [Other acute postoperative pain] 09-15-2023 Episodic Other nutritional; endocrine; and metabolic disorders (15 sources) Body mass index 30+ - obesity; Translations: [Obesity, unspecified] Chronic Other nutritional; endocrine; and metabolic disorders (10 sources) Obesity, unspecified; Translations: [Obesity, unspecified] Chronic Other nutritional; endocrine; and metabolic disorders (10 sources) Obesity; Translations: [Obesity, unspecified] 03-12-2024 Chronic Other nutritional; endocrine; and metabolic disorders (1 source) Other obesity due to excess calories; Translations: [Other obesity due to excess calories] Onset: 5 Chronic Other nutritional; endocrine; and metabolic disorders (1 source) Body mass index (BMI) 33.0-33.9, adult; Translations: [Body mass index [BMI] 33.0-33.9, adult] Onset: 5 Chronic Other skin disorders (1 source) Follicular disorder, unspecified Episodic Other skin disorders (3 sources) Mass of chest wall; Translations: [Localized swelling, mass and lump, trunk] 08-16-2024 Episodic Other skin disorders (3 sources) Localized swelling, mass and lump, trunk; Translations: [Swelling, mass, or lump in chest] 08-16-2024 Episodic Other skin disorders (2 sources) Lentiginosis; Translations: [Other melanin hyperpigmentation] 10-25-2024 Episodic Other skin disorders (2 sources) Actinic keratosis; Translations: [Actinic keratosis] 10-25-2024 Episodic Other upper respiratory disease (1 source) Dysphonia Episodic Other upper respiratory infections (20 sources) Acute recurrent maxillary sinusitis; Translations: [Acute maxillary sinusitis, unspecified] Episodic Residual codes; unclassified (15 sources) Menopause present; Translations: [Asymptomatic menopausal state] Episodic Residual codes; unclassified (11 sources) Mammogram declined; Translations: [Procedure and treatment [...] [Insomnia, unspecified] 07-21-2024 Episodic Residual codes; unclassified (6 sources) Insomnia, unspecified; Translations: [Insomnia, unspecified] Onset: 5 08-02-2024 Episodic Residual codes; unclassified (1 source) Other specified health status; Translations: [Other specified health status] Onset: 5 Episodic Retinal detachments; defects; vascular occlusion; and retinopathy (11 sources) Nonexudative age-related macular degeneration; Translations: [Nonexudative age-related macular degeneration, bilateral, early dry stage] Onset: 4 02-23-2024 Chronic Spondylosis; intervertebral disc disorders; other back problems (20 sources) Lumbosacral spondylosis with radiculopathy; Translations: [Other spondylosis with radiculopathy, lumbosacral region] Onset: 2 Chronic Viral infection (14 sources) Disease caused by 2019-nCoV; Translations: [COVID-19] 04-15-2024 Episodic Past or Other Problems Problem Classification Problem Date Documented Da te Episodic/Chronic Coronary atherosclerosis and other heart disease (4 sources) Presence of aortocoronary bypass graft; Translations: [Aortocoronary bypass status] Onset: 04-15-2022 09-01-2023 Episodic Inflammation; infection of eye (except that caused by tuberculosis or sexually transmitteddisease) (12 sources) Blepharitis of upper and lower eyelids of bilateral eyes; Translations: [Unspecified blepharitis right eye, upper and lower eyelids] Onset: 01-01-2023 01-01-2023 Episodic Other aftercare (4 sources) Other predatory animal exterminator (current) drug therapy; Translations: [OTH 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 CURRENT DRUG THERAPY] Onset: 11-06-2022 Episodic Other eye disorders (12 sources) Dry eyes; Translations: [Dry eye syndrome of bilateral lacrimal glands] Onset: 01-01-2023 01-01-2023 Episodic Other fractures (1 source) Collapsed vertebra, not elsewhere classified, lumbar region, initial encounter for fracture; Translations: [COLLAPSED VERT NEC LUMBAR INIT ENC] Onset: 01-31-2022 Episodic Other lower respiratory disease (4 sources) Dyspnea, unspecified; Translations: [DYSPNEA UNSPECIFIED] Onset: 05-08-2022 Episodic Other non-traumatic joint disorders (3 sources) Pain in left knee; Translations: [Pain in left knee] Onset: 11-19-2023 Episodic Other non-traumatic joint disorders (1 source) Pain in left hip; Translations: [Pain in left hip] Onset: 02-19-2024 Episodic Results Test Name Value Interpretation Reference Range Facility No Panel Informationon 10-25 Type of biopsy: holloway ential Informed consent: discussed and consent obtained Informed [...] yes Amount of lidocaine used: 1.0 cc [facility] Type of biopsy: holloway ential Informed consent: discussed and consent obtained Informed [...] yes Amount of lidocaine used: 0.5 cc [facility] Healthcare [facility] Healthcare Office Visiton 09-07-2024 Follow-up visit [id number] Ashley Brown 1940 F Date Provider Department Center 09/07/202427180-IABBBEJEAN-PIERRE GARCIA HVCVASENDHero [facility] Family History Problem Relation Age of Onset Coronary artery disease Father Other Father Family Status - Relation Status Age at Father Level of Service:26898 LA OFFICE/OP CONSLTJ NEW/EST PT MOD MDM 40 MINUTES Reason for Visit and Comments: New Patient [632] - Possible broken sternal wire Normal [facility] X-ray reportOrdered By: Soraya Shepherd on 09-02-2024 Study report [facility] [address] [place] [address] XRay Report Signed Patient: Ashley Brown MR#: [id number] : 1940 Acct:[id number] Age/Sex: 83 / F ADM Date: 5 Loc: [facility] Room: Type: [facility] Attending Dr: Magno Pichardo II, MD Copies to: Magno Pichardo MD~ Ordering Provider: Magno Pichardo MD Date of Service: 09/02/24 XR/XR hip LT min 2V(w/wo pelvis)*: Z96.642 - Presenceof left artificial hip joint AP WEIGHTBEARING LOW PELVIS AND LEFT HIP - 2 views: CLINICAL HISTORY: Follow-up left hip replacement COMPARISON: 07/19/2024 AP view the pelvis and crosstable lateral view of the left hip were obtained. Structures are osteopenic. A left hip replacement is again seen. The hardware appears intact and unchanged from the prior. There is no developing fracture ordislocation. Minor sclerosis is seen at the SI joints. There is also degenerative change at the lower imaged lumbar spine. There are no significant soft tissue abnormalities. XR/XR hip LT min 2V(w/wo pelvis)* IMPRESSION: STABLE LEFT HIP REPLACEMENT. Impression dictated by: Jane Shepherd M.D.09/02/2024 8:14 PM Dictation Location: [place] [address] Transcribed By: [facility] 09/02/242013 Dictated By: Jane Shepherd MD 09/02/242012 Signed By: 09/02/242013 [facility] Work Phone: XR hip LT min 2V(w/wo pelvis )*on 09-02-2024 XR hip LT min 2V(w/wo pelvis)* [facility] [address] [place] [address] XRay Report Signed Patient: Ashley Brown MR#: [id number] 1 : 1940 Acct:[id number] Age/Sex: 83 / F ADM Date: 09/02/24 Loc: [facility] Room: Type: [facility] Attending Dr: Magno Pichardo II, MD Copies to: Magno Pichardo MD Ordering Provider: Magno Pichardo MD Date of Service: 09/02/24 XR/XR hip LT min 2V(w/wo pelvis)*: Z96.642 - Presence of left artificial hip joint AP WEIGHTBEARING LOW PELVIS AND LEFT HIP - 2 views: CLINICAL HISTORY: Follow-up left hip replacement COMPARISON: 07/19/2024 AP view the pelvis and crosstable lateral view of the left hip were obtained. Structures are osteopenic. A left hip replacement is again seen. The hardware appears intact and unchanged from the prior. There is no developing fracture or dislocation. Minor sclerosis is seen at the SI joints. There is also degenerative change at the lower imaged lumbar spine. There are no significant soft tissue abnormalities. XR/XR hip LT min 2V(w/wo pelvis)* IMPRESSION: STABLE LEFT HIP REPLACEMENT. Impression dictated by: Jane Shepherd M.D.09/02/2024 8:14 PM Dictation Location: [place] [address] Transcribed By: [facility] 09/02/242013 Dictated By: Jane Shepherd MD 09/02/242012 Signed By: 09/02/242013 Normal [facility] Orders Onlyon 08-30-2024 Orders Only [id number] Ashley Brown 1940 F Date Provider Department Center 08/30/2024 CH[facility]LER SALZAAR Surgery None Family History Problem Relation Age of Onset Coronary artery disease Father Other Father Family Status - Relation Status Age at Father Normal [facility] Alanine aminotransferase [En zymatic activity/volume] in Serum or PlasmaOrdered By: Dilip Laird on 07-26-2024 ALT [Catalytic activity/Vol] Alanine aminotransferase [Enzymatic activity/volume] in Serum or Plasma 7-52 [facility] Albumin [Mass/volume] in Ser um or Plasma by Bromocresol green (BCG) dye binding methoOrdered By: Dilip Laird on 07-26-2024 Albumin BCG dye [Mass/Vol] Albumin [Mass/volume] in Serum or Plasma by Bromocresol green (BCG) dye binding metho Low 3.5-5.7 [facility] Alkaline phosphatase [Enzyma tic activity/volume] in Serum or PlasmaOrdered By: Dilip Laird on 07-26-2024 ALP [Catalytic activity/Vol] Alkaline phosphatase [Enzymatic activity/volume] in Serum or Plasma High 34-104 [facility] Aspartate aminotransferase [ Enzymatic activity/volume] in Serum or PlasmaOrdered By: Dilip Laird on 07-26-2024 AST [Catalytic activity/Vol] Aspartate aminotransferase [Enzymatic activity/volume] in Serum or Plasma 13-39 [facility] Basophils Auto (Bld) [#/Vol] Ordered By: Dilip Laird on 07-26-2024 Basophils (Bld) [#/Vol] Automated basophil count 0.0-0.2 [facility] Basophils/100 WBC Auto (Bld) Ordered By: Dilip Laird on 07-26-2024 Basophils/100 WBC (Bld) Automated basophil % . [facility] Bilirubin.total [Mass/volume ] in Serum or PlasmaOrdered By: Dilip Laird on 07-26-2024 Bilirubin [Mass/Vol] Bilirubin.total [Mass/volume] in Serum or Plasma 0.3-1.0 [facility] Calcium [Mass/volume] in Ser um or PlasmaOrdered By: Dilip Laird on 07-26-2024 Calcium [Mass/Vol] Calcium [Mass/volume ] in Serum or Plasma 8.6-10.3 [facility] Carbon dioxide, total [Moles /volume] in Serum or PlasmaOrdered By: Dilip Laird on 07-26-2024 CO2 [Moles/Vol] Carbon dioxide, tota l [Moles/volume] in Serum or Plasma 21.0-31.0 [facility] Chloride [Moles/volume] in S tejas or PlasmaOrdered By: Dilip Laird on 07-26-2024 Chloride [Moles/Vol] Chloride [Moles/vol ume] in Serum or Plasma 98-107 [facility] Complete Blood Count Auto Di ffon 07-26-2024 Basophils (Bld) [#/Vol] 0.1 10*3/uL Normal 0.0-0.2 [facility] Comment on above: Result Comment: PERF ORMED BY: [place] [address] PATHOLOGIST EVS ATTENDANT NIK MARTIN M.D. Performed By: #### C BC, CMP #### [facility] [address] Basophils/100 WBC (Bld) 1.9 % Normal . [facility] Comment on above: Performed By: #### C BC, CMP #### [facility] [address] [place] [address] [place] Eosinophils (Bld) [#/Vol] 1.0 10*3/uL High 0.0-0.45 [facility] Comment on above: Performed By: #### C BC, CMP #### [facility] [address] Eosinophils/100 WBC (Bld) 14.7 % Normal . [facility] Comment on above: Performed By: #### C BC, CMP #### [address] Erythrocyte distribution width (RBC) [Ratio] 12.8 % Normal 11.9-15.3 [facility] Comment on above: Performed By: #### C BC, CMP #### [address] Hematocrit (Bld) [Volume fraction] 33.3 % Low 34.0-46.4 [facility] Comment on above: Performed By: #### C BC, CMP #### [address] Hemoglobin (Bld) [Mass/Vol] 11.2 g/dL Low 11.8-15.4 [facility] Comment on above: Performed By: #### C BC, CMP #### [address] Lymphocytes (Bld) [#/Vol] 1.5 10*3/uL Normal 1.00-4.8 [facility] Comment on above: Performed By: #### C BC, CMP #### [address] Lymphocytes/100 WBC (Bld) 22.1 % Normal . [facility] Comment on above: Performed By: #### C BC, CMP #### [address] MCH (RBC) [Entitic mass] 32.0 pg Normal 24.7-34.3 [facility] Comment on above: Performed By: #### C BC, CMP #### [address] MCV (RBC) [Entitic vol] 95.2 fL Normal 80-100 [facility] Comment on above: Performed By: #### C BC, CMP #### [address] Mean Corpuscular HGB Conc 33.6 g/dL Normal 32.0-35.0 [facility] Comment on above: Performed By: #### C BC, CMP #### [facility] [address] [place] [address] [place] Monocytes (Bld) [#/Vol] 0.8 10*3/uL Normal 0.0-0.8 [facility] Comment on above: Performed By: #### C BC, CMP #### [facility] [address] [place] [address] [place] Monocytes/100 WBC (Bld) 12.1 % Normal . [facility] Comment on above: Performed By: #### C BC, CMP #### [place] [address] [place] Neutrophils (Bld) [#/Vol] 3.4 10*3/uL Normal 1.8-7.7 [facility] Comment on above: Performed By: #### C BC, CMP #### [address] Neutrophils/100 WBC (Bld) 49.2 % Normal . [facility] Comment on above: Performed By: #### C BC, CMP #### [place] [address] [place] NRBC% 0.1 /100{WBC} Normal 0-0.5 [facility] Comment on above: Performed By: #### C ABEL, CMP #### [place] [address] [place] Platelet mean volume (Bld) [Entitic vol] 8.2 fL Normal 6.3-10.7 [facility] Comment on above: Performed By: #### C BC, CMP #### [place] [address] [place] Platelets (Bld) [#/Vol] 350 10*3/uL Normal 150-450 [facility] Comment on above: Performed By: #### C BC, CMP #### [place] [address] [place] RBC (Bld) [#/Vol] 3.49 10*6/uL Low 3.60-5.00 [facility] Comment on above: Performed By: #### C BC, CMP #### [address] WBC (Bld) [#/Vol] 6.9 10*3/uL Normal 3.8-11.6 [facility] Comment on above: Performed By: #### C BC, CMP #### [address] Comprehensive Metabolic Pane elia 07-26-2024 Albumin [Mass/Vol] 3.1 g/dL Low 3.5-5.7 [facility] Comment on above: Performed By: #### C BC, CMP #### [address] Albumin/Globulin [Mass ratio] 1.1 {ratio} Normal [facility] Comment on above: Performed By: #### C BC, CMP #### [address] ALP [Catalytic activity/Vol] 108 U/L High 34-104 [facility] Comment on above: Performed By: #### C BC, CMP #### [address] ALT [Catalytic activity/Vol] 43 U/L Normal 7-52 [facility] Comment on above: Performed By: #### C BC, CMP #### [address] Anion gap [Moles/Vol] 10.9 mmol/L Normal 6.0-15.0 [facility] Comment on above: Performed By: #### C BC, CMP #### [address] AST [Catalytic activity/Vol] 29 U/L Normal 13-39 [facility] Comment on above: Performed By: #### C BC, CMP #### [address] Bilirubin [Mass/Vol] 0.4 mg/dL Normal 0.3-1.0 [facility] Comment on above: Performed By: #### C BC, CMP #### [address] [address] [place] Calcium [Mass/Vol] 8.6 mg/dL Normal 8.6-10.3 [facility] Comment on above: Performed By: #### C BC, CMP #### [address] Chloride [Moles/Vol] 105 mmol/L Normal 98-107 [facility] Comment on above: Performed By: #### C BC, CMP #### [address] CO2 [Moles/Vol] 25.1 mmol/L Normal 21.0-31.0 [facility] Comment on above: Performed By: #### C BC, CMP #### [address] Creatinine [Mass/Vol] 0.84 mg/dL Normal 0.60-1.20 [facility] Comment on above: Performed By: #### C BC, CMP #### [address] Creatinine Clr Calc Pharmacy 44.86 Normal [facility] Comment on above: Result Comment: PERF ORMED BY: [place] [address] PATHOLOGIST EVS ATTENDANT NIK MARTIN M.D. Performed By: #### C BC, CMP #### [address] GFR/1.73 sq M.predicted MDRD (S/P/Bld) [Vol rate/Area] mL/min/{1.73_m2} Normal [facility] Comment on above: Performed By: #### C BC, CMP #### [address] Globulin (S) [Mass/Vol] 2.8 g/dL Normal [facility] Comment on above: Performed By: #### C BC, CMP #### [address] Glucose [Mass/Vol] 86 mg/dL Normal 70-100 [facility] Comment on above: Result Comment: [place] Glucose Reference Range is dependent on time and content of last meal. Glucose of more than 200 mg/dL in a nonstressed, ambulatory subject supports the diagnosis of Diabetes Mellitus. ADA recommended reference range Performed By: #### C BC, CMP #### [facility] [address] Potassium [Moles/Vol] 4.0 mmol/L Normal 3.5-5.1 [facility] Comment on above: Performed By: #### C BC, CMP #### [facility] [address] [place] [address] [place] Protein [Mass/Vol] 5.9 g/dL Low 6.4-8.9 [facility] Comment on above: Performed By: #### C BC, CMP #### [facility] [address] [place] [id number] [place] Sodium [Moles/Vol] 137 mmol/L Normal 136-145 [facility] Comment on above: Performed By: #### C BC, CMP #### [facility] [address] [place] [phone] [place] Urea nitrogen [Mass/Vol] 21 mg/dL Normal 7-25 [facility] Comment on above: Performed By: #### C BC, CMP #### [facility] [address] [place] [phone] [place] Creatinine [Mass/volume] in Serum or PlasmaOrdered By: Dilip Laird on 07-26-2024 Creatinine [Mass/Vol] Creatinine [Mass/v olume] in Serum or Plasma 0.60-1.20 [facility] Eosinophils Auto (Bld) [#/Vo l]Ordered By: Dilip Laird on 07-26-2024 Eosinophils (Bld) [#/Vol] Automated eosinophil count High 0.0-0.45 [facility] Eosinophils/100 WBC Auto (Bl d)Ordered By: Dilip Laird on 07-26-2024 Eosinophils/100 WBC (Bld) Automated eosinophil % . [facility] Erythrocyte distribution wid th Auto (RBC) [Ratio]Ordered By: Dilip Laird on 07-26-2024 Erythrocyte distribution width (RBC) [Ratio] Erythrocyte distribution width [Ratio] by Automated count 11.9-15.3 [facility] Globulin Calc (S) [Mass/Vol] Ordered By: Dilip Laird on 07-26-2024 Globulin (S) [Mass/Vol] Serum globulin measurement by calculation (mass/volume) [facility] Glucose [Mass/volume] in Ser um or PlasmaOrdered By: Dilip Laird on 07-26-2024 Glucose [Mass/Vol] Glucose [Mass/volume ] in Serum or Plasma 70-100 [facility] Comment on above: ADA recommended refe rence rangeRandom Glucose Reference Range is dependent on time and content of last meal. Glucose of more than 200 mg/dL in a nonstressed, ambulatory subject supports the diagnosis of Diabetes Mellitus. Hematocrit Auto (Bld) [Volum e fraction]Ordered By: Dilip Laird on 07-26-2024 Hematocrit (Bld) [Volume fraction] Hematocrit [Volume Fraction] of Blood by Automated count Low 34.0-46.4 [facility] Hemoglobin [Mass/volume] in BloodOrdered By: Dilip Laird on 07-26-2024 Hemoglobin (Bld) [Mass/Vol] Hemoglobin [Mass/volume] in Blood Low 11.8-15.4 [facility] Leukocytes [#/volume] correc alvaro for nucleated erythrocytes in Blood by Automated counOrdered By: Dilip Larid on 07-26-2024 WBC corrected for nucl RBC Auto (Bld) [#/Vol] Leukocytes [#/volume] corrected for nucleated erythrocytes in Blood by Automated coun 3.8-11.6 [facility] Lymphocytes Auto (Bld) [#/Vo l]Ordered By: Dilip Laird on 07-26-2024 Lymphocytes (Bld) [#/Vol] Lymphocytes [#/volume] in Blood by Automated count 1.00-4.8 [facility] Lymphocytes/100 WBC Auto (Bl d)Ordered By: Dilip Laird on 07-26-2024 Lymphocytes/100 WBC (Bld) Lymphocytes/100 leukocytes in Blood by Automated count . [facility] MCH Auto (RBC) [Entitic mass ]Ordered By: Dilip Laird on 07-26-2024 MCH (RBC) [Entitic mass] MCH [Entitic mass] by Automated count 24.7-34.3 [facility] MCHC Auto (RBC) [Mass/Vol]Or dered By: Dilip Laird on 07-26-2024 MCHC (RBC) [Mass/Vol] MCHC [Mass/volume] by Automated count 32.0-35.0 [facility] MCV Auto (RBC) [Entitic vol] Ordered By: Dilip Laird on 07-26-2024 MCV (RBC) [Entitic vol] MCV [Entitic volume] by Automated count 80-100 [facility] Monocytes Auto (Bld) [#/Vol] Ordered By: Dilip Laird on 07-26-2024 Monocytes (Bld) [#/Vol] Automated blood monocyte count 0.0-0.8 [facility] Monocytes/100 WBC Auto (Bld) Ordered By: Dilip Laird on 07-26-2024 Monocytes/100 WBC (Bld) Automated monocyte % . [facility] Neutrophils Auto (Bld) [#/Vo l]Ordered By: Dilip Laird on 07-26-2024 Neutrophils (Bld) [#/Vol] Neutrophils [#/volume] in Blood by Automated count 1.8-7.7 [facility] Neutrophils/100 WBC Auto (Bl d)Ordered By: Dilip Laird on 07-26-2024 Neutrophils/100 WBC (Bld) Automated neutrophil % . [facility] No Panel InformationOrdered By: Dilip Laird on 07-26-2024 Estimated GFR (CKD-EPI) > 60.0 mL/Min [facility] Creatinine Clearance (Chem 44.86 [facility] Nucleated erythrocytes [Pres ence] in Blood by Automated countOrdered By: Dilip Laird on 07-26-2024 Nucleated RBC Auto Ql (Bld) Nucleated erythrocytes [Presence] in Blood by Automated count 0-0.5 [facility] Platelet mean volume Auto (B ld) [Entitic vol]Ordered By: Dilip Laird on 07-26-2024 Platelet mean volume (Bld) [Entitic vol] Platelet mean volume [Entitic volume] in Blood by Automated count 6.3-10.7 [facility] Platelets Auto (Bld) [#/Vol] Ordered By: Dilip Laird on 07-26-2024 Platelets (Bld) [#/Vol] Platelets [#/volume] in Blood by Automated count 150-450 [facility] Potassium [Moles/volume] in Serum or PlasmaOrdered By: Dilip Laird on 07-26-2024 Potassium [Moles/Vol] Potassium [Moles/v olume] in Serum or Plasma 3.5-5.1 [facility] Protein [Mass/volume] in Ser um or PlasmaOrdered By: Dilip Laird on 07-26-2024 Protein [Mass/Vol] Protein [Mass/volume ] in Serum or Plasma Low 6.4-8.9 [facility] RBC Auto (Bld) [#/Vol]Ordere d By: Dilip Laird on 07-26-2024 RBC (Bld) [#/Vol] Erythrocytes [#/volu me] in Blood by Automated count Low 3.60-5.00 [facility] Serum or plasma albumin/glob ulin mass ratioOrdered By: Dilip Laird on 07-26-2024 Albumin/Globulin [Mass ratio] Serum or plasma albumin/globulin mass ratio [facility] Serum or plasma anion gap de terminationOrdered By: Dilip Laird on 07-26-2024 Anion gap [Moles/Vol] Serum or plasma an ion gap determination 6.0-15.0 [facility] Sodium [Moles/volume] in Ser um or PlasmaOrdered By: Dilip Laird on 07-26-2024 Sodium [Moles/Vol] Sodium [Moles/volume ] in Serum or Plasma 136-145 [facility] Urea nitrogen [Mass/volume] in Serum or PlasmaOrdered By: Dilip Laird on 07-26-2024 Urea nitrogen [Mass/Vol] Urea nitrogen [Mass/volume] in Serum or Plasma 7-25 [facility] WBC Auto (Bld) [#/Vol]Ordere d By: Dilip Laird on 07-26-2024 WBC (Bld) [#/Vol] Leukocytes [#/volume ] in Blood by Automated count 3.8-11.6 [facility] Comprehensive Metabolic Pane elia 07-22-2024 Albumin [Mass/Vol] 3.3 g/dL Low 3.5-5.7 [facility] Comment on above: Performed By: #### C MP #### [address] Albumin/Globulin [Mass ratio] 1.1 {ratio} Normal [facility] Comment on above: Performed By: #### C MP #### [address] ALP [Catalytic activity/Vol] 169 U/L High 34-104 [facility] Comment on above: Performed By: #### C MP #### [address] ALT [Catalytic activity/Vol] 146 U/L High 7-52 [facility] Comment on above: Performed By: #### C MP #### [address] Anion gap [Moles/Vol] 10.6 mmol/L Normal 6.0-15.0 [facility] Comment on above: Performed By: #### C MP #### [address] AST [Catalytic activity/Vol] 145 U/L High 13-39 [facility] Comment on above: Performed By: #### C MP #### [address] Bilirubin [Mass/Vol] 0.5 mg/dL Normal 0.3-1.0 [facility] Comment on above: Performed By: #### C MP #### [address] Calcium [Mass/Vol] 8.9 mg/dL Normal 8.6-10.3 [facility] Comment on above: Performed By: #### C MP #### [place] [address] [place] Chloride [Moles/Vol] 103 mmol/L Normal 98-107 [facility] Comment on above: Performed By: #### C MP #### [address] CO2 [Moles/Vol] 25.8 mmol/L Normal 21.0-31.0 [facility] Comment on above: Performed By: #### C MP #### [address] Creatinine [Mass/Vol] 1.02 mg/dL Normal 0.60-1.20 [facility] Comment on above: Performed By: #### C MP #### [address] Creatinine Clr Calc Pharmacy 36.53 Normal [facility] Comment on above: Result Comment: PERF ORMED BY: [place] [address] PATHOLOGIST EVS ATTENDANT NIK MARTIN M.D. Performed By: #### C MP #### [address] Estimated GFR 55.269 mL/Min Normal [facility] Comment on above: Performed By: #### C MP #### [address] Globulin (S) [Mass/Vol] 2.9 g/dL Normal [facility] Comment on above: Performed By: #### C MP #### [address] Glucose [Mass/Vol] 87 mg/dL Normal 70-100 [facility] Comment on above: Result Comment: [facility] Glucose Reference Range is dependent on time and content of last meal. Glucose of more than 200 mg/dL in a nonstressed, ambulatory subject supports the diagnosis of Diabetes Mellitus. ADA recommended reference range Performed By: #### C MP #### [address] Potassium [Moles/Vol] 4.4 mmol/L Normal 3.5-5.1 [facility] Comment on above: Performed By: #### C MP #### [address] Protein [Mass/Vol] 6.2 g/dL Low 6.4-8.9 [facility] Comment on above: Performed By: #### C MP #### [place] [address] Sodium [Moles/Vol] 135 mmol/L Low 136-145 [facility] Comment on above: Performed By: #### C MP #### [address] Urea nitrogen [Mass/Vol] 17 mg/dL Normal 7-25 [facility] Comment on above: Performed By: #### C MP #### [address] Complete Blood Count Auto Di ffon 07-21-2024 Basophils (Bld) [#/Vol] 0.0 10*3/uL Normal 0.0-0.2 [facility] Comment on above: Result Comment: PERF ORMED BY: [place] [address] PATHOLOGIST EVS ATTENDANT NIK MARTIN M.D. Performed By: #### C BC, BMP #### [address] Basophils/100 WBC (Bld) 0.5 % Normal . [facility] Comment on above: Performed By: #### C BC, BMP #### [address] Eosinophils (Bld) [#/Vol] 0.1 10*3/uL Normal 0.0-0.45 [facility] Comment on above: Performed By: #### C BC, BMP #### [address] Eosinophils/100 WBC (Bld) 1.8 % Normal . [facility] Comment on above: Performed By: #### C BC, BMP #### [address] Erythrocyte distribution width (RBC) [Ratio] 12.7 % Normal 11.9-15.3 [facility] Comment on above: Performed By: #### C BC, BMP #### [address] Hematocrit (Bld) [Volume fraction] 34.5 % Normal 34.0-46.4 [facility] Comment on above: Performed By: #### C BC, BMP #### [address] Hemoglobin (Bld) [Mass/Vol] 11.8 g/dL Normal 11.8-15.4 [facility] Comment on above: Performed By: #### C BC, BMP #### [address] Lymphocytes (Bld) [#/Vol] 0.8 10*3/uL Low 1.00-4.8 [facility] Comment on above: Performed By: #### C BC, BMP #### [address] Lymphocytes/100 WBC (Bld) 10.1 % Normal . [facility] Comment on above: Performed By: #### C BC, BMP #### [address] MCH (RBC) [Entitic mass] 32.5 pg Normal 24.7-34.3 [facility] Comment on above: Performed By: #### C BC, BMP #### [address] MCV (RBC) [Entitic vol] 95.0 fL Normal 80-100 [facility] Comment on above: Performed By: #### C BC, BMP #### [address] Mean Corpuscular HGB Conc 34.2 g/dL Normal 32.0-35.0 [facility] Comment on above: Performed By: #### C BC, BMP #### [address] Monocytes (Bld) [#/Vol] 1.0 10*3/uL High 0.0-0.8 [facility] Comment on above: Performed By: #### C BC, BMP #### [address] Monocytes/100 WBC (Bld) 12.0 % Normal . [facility] Comment on above: Performed By: #### C BC, BMP #### [facility] [address] [place] [address] [place] Neutrophils (Bld) [#/Vol] 6.1 10*3/uL Normal 1.8-7.7 [facility] Comment on above: Performed By: #### C BC, BMP #### [facility] [address] [place] [address] [place] Neutrophils/100 WBC (Bld) 75.6 % Normal . [facility] Comment on above: Performed By: #### C BC, BMP #### [facility] [address] NRBC% 0.0 /100{WBC} Normal 0-0.5 [facility] Comment on above: Performed By: #### C BC, BMP #### [facility] [address] [place] [address] [place] Platelet mean volume (Bld) [Entitic vol] 8.5 fL Normal 6.3-10.7 [facility] Comment on above: Performed By: #### C BC, BMP #### [facility] [address] [place] [address] [place] Platelets (Bld) [#/Vol] 262 10*3/uL Normal 150-450 [facility] Comment on above: Performed By: #### C BC, BMP #### [facility] [address] [place] [address] [place] RBC (Bld) [#/Vol] 3.63 10*6/uL Normal 3.60-5.00 [facility] Comment on above: Performed By: #### C BC, BMP #### [facility] [address] [place] [address] [place] WBC (Bld) [#/Vol] 8.1 10*3/uL Normal 3.8-11.6 [facility] Comment on above: Performed By: #### C BC, BMP #### [facility] [address] [place] [address] [facility] Comprehensive Metabolic Pane elia 07-21-2024 Albumin [Mass/Vol] 3.3 g/dL Low 3.5-5.7 [facility] Comment on above: Performed By: #### C BC, BMP #### [address] Albumin/Globulin [Mass ratio] 1.4 {ratio} Normal [facility] Comment on above: Performed By: #### C BC, BMP #### [address] ALP [Catalytic activity/Vol] 135 U/L High 34-104 [facility] Comment on above: Performed By: #### C BC, BMP #### [address] ALT [Catalytic activity/Vol] 105 U/L High 7-52 [facility] Comment on above: Performed By: #### C BC, BMP #### [address] Anion gap [Moles/Vol] 11.4 mmol/L Normal 6.0-15.0 [facility] Comment on above: Performed By: #### C BC, BMP #### [address] AST [Catalytic activity/Vol] 126 U/L High 13-39 [facility] Comment on above: Performed By: #### C BC, BMP #### [address] Bilirubin [Mass/Vol] 0.6 mg/dL Normal 0.3-1.0 [facility] Comment on above: Performed By: #### C BC, BMP #### [address] Calcium [Mass/Vol] 8.8 mg/dL Normal 8.6-10.3 [facility] Comment on above: Performed By: #### C BC, BMP #### [address] Chloride [Moles/Vol] 105 mmol/L Normal 98-107 [facility] Comment on above: Performed By: #### C BC, BMP #### [facility] [address] CO2 [Moles/Vol] 25.2 mmol/L Normal 21.0-31.0 [facility] Comment on above: Performed By: #### C BC, BMP #### [address] Creatinine [Mass/Vol] 0.75 mg/dL Normal 0.60-1.20 [facility] Comment on above: Performed By: #### C BC, BMP #### [place] [address] [place] Creatinine Clr Calc Pharmacy 46.58 Normal [facility] Comment on above: Performed By: #### C BC, BMP #### [place] [address] [place] GFR/1.73 sq M.predicted MDRD (S/P/Bld) [Vol rate/Area] mL/min/{1.73_m2} Normal [facility] Comment on above: Performed By: #### C BC, BMP #### [place] [address] [place] Globulin (S) [Mass/Vol] 2.4 g/dL Normal [facility] Comment on above: Performed By: #### C BC, BMP #### [place] [address] [place] Glucose [Mass/Vol] 102 mg/dL High 70-100 [facility] Comment on above: Result Comment: [place] Glucose Reference Range is dependent on time and content of last meal. Glucose of more than 200 mg/dL in a nonstressed, ambulatory subject supports the diagnosis of Diabetes Mellitus. ADA recommended reference range Performed By: #### C BC, BMP #### [address] Potassium [Moles/Vol] 4.6 mmol/L Normal 3.5-5.1 [facility] Comment on above: Performed By: #### C BC, BMP #### [place] [address] [place] Protein [Mass/Vol] 5.7 g/dL Low 6.4-8.9 [facility] Comment on above: Performed By: #### C BC, BMP #### [address] Sodium [Moles/Vol] 137 mmol/L Normal 136-145 [facility] Comment on above: Performed By: #### C BC, BMP #### [address] Urea nitrogen [Mass/Vol] 16 mg/dL Normal 7-25 [facility] Comment on above: Performed By: #### C BC, BMP #### [address] Prealbuminon 07-21-2024 Prealbumin [Mass/Vol] 14.4 mg/dL Low 17.0-34.0 [facility] Comment on above: Result Comment: PERF ORMED BY: [place] [address] PATHOLOGIST EVS ATTENDANT NIK MARTIN M.D. Performed By: #### C BC, BMP #### [address] Prealbumin [Mass/volume] in Serum or PlasmaOrdered By: Dilip Laird on 07-21-2024 Prealbumin [Mass/Vol] Prealbumin [Mass/v olume] in Serum or Plasma Low 17.0-34.0 [facility] Basic Metabolic Panelon 07-01 Anion gap [Moles/Vol] 10.0 mmol/L Normal 6.0-15.0 [facility] Comment on above: Performed By: #### C BC, BMP #### [address] Calcium [Mass/Vol] 8.9 mg/dL Normal 8.6-10.3 [facility] Comment on above: Performed By: #### C BC, BMP #### [address] Chloride [Moles/Vol] 104 mmol/L Normal 98-107 [facility] Comment on above: Performed By: #### C BC, BMP #### [facility] [address] CO2 [Moles/Vol] 24.0 mmol/L Normal 21.0-31.0 [facility] Comment on above: Performed By: #### C BC, BMP #### [facility] [address] Creatinine [Mass/Vol] 0.76 mg/dL Normal 0.60-1.20 [facility] Comment on above: Performed By: #### C BC, BMP #### [place] [address] [place] Creatinine Clr Calc Pharmacy 46.67 Normal [facility] Comment on above: Result Comment: PERF ORMED BY: [place] [address] PATHOLOGIST EVS ATTENDANT NIK MARTIN M.D. Performed By: #### C BC, BMP #### [place] [address] [place] GFR/1.73 sq M.predicted MDRD (S/P/Bld) [Vol rate/Area] mL/min/{1.73_m2} Normal [facility] Comment on above: Performed By: #### C BC, BMP #### [address] Glucose [Mass/Vol] 107 mg/dL High 70-100 [facility] Comment on above: Result Comment: [place] Glucose Reference Range is dependent on time and content of last meal. Glucose of more than 200 mg/dL in a nonstressed, ambulatory subject supports the diagnosis of Diabetes Mellitus. ADA recommended reference range Performed By: #### C BC, BMP #### [address] Potassium [Moles/Vol] 4.0 mmol/L Normal 3.5-5.1 The [facility] Comment on above: Performed By: #### C BC, BMP #### [place] [address] Sodium [Moles/Vol] 134 mmol/L Low 136-145 [facility] Comment on above: Performed By: #### C ABEL, BMP #### [address] Urea nitrogen [Mass/Vol] 14 mg/dL Normal 7-25 [facility] Comment on above: Performed By: #### C ABEL, BMP #### [address] Basophils Auto (Bld) [#/Vol] Ordered By: Magno Pichardo on 07-20-2024 Basophils (Bld) [#/Vol] Automated basophil count 0.0-0.2 [facility] Basophils/100 WBC Auto (Bld) Ordered By: Magno Pichardo on 07-20-2024 Basophils/100 WBC (Bld) Automated basophil % . [facility] Calcium [Mass/volume] in Ser um or PlasmaOrdered By: Magno Pichardo on 07-20-2024 Calcium [Mass/Vol] Calcium [Mass/volume ] in Serum or Plasma 8.6-10.3 [facility] Carbon dioxide, total [Moles /volume] in Serum or PlasmaOrdered By: Magno Pichardo on 07-20-2024 CO2 [Moles/Vol] Carbon dioxide, tota l [Moles/volume] in Serum or Plasma 21.0-31.0 [facility] Chloride [Moles/volume] in S tejas or PlasmaOrdered By: Magno Pichardo on 07-20-2024 Chloride [Moles/Vol] Chloride [Moles/vol ume] in Serum or Plasma 98-107 [facility] Complete Blood Count Auto Di ffon 07-20-2024 Basophils (Bld) [#/Vol] 0.1 10*3/uL Normal 0.0-0.2 [facility] Comment on above: Result Comment: PERF ORMED BY: [place] [address] PATHOLOGIST EVS ATTENDANT NIK MARTIN M.D. Performed By: #### C ABEL, BMP #### [address] Basophils/100 WBC (Bld) 0.9 % Normal . [facility] Comment on above: Performed By: #### C BC, BMP #### [address] Eosinophils (Bld) [#/Vol] 0.1 10*3/uL Normal 0.0-0.45 [facility] Comment on above: Performed By: #### C BC, BMP #### [address] Eosinophils/100 WBC (Bld) 1.9 % Normal . [facility] Comment on above: Performed By: #### C BC, BMP #### [address] Erythrocyte distribution width (RBC) [Ratio] 12.8 % Normal 11.9-15.3 [facility] Comment on above: Performed By: #### C BC, BMP #### [address] Hematocrit (Bld) [Volume fraction] 35.1 % Normal 34.0-46.4 [facility] Comment on above: Performed By: #### C BC, BMP #### [address] Hemoglobin (Bld) [Mass/Vol] 12.0 g/dL Normal 11.8-15.4 [facility] Comment on above: Performed By: #### C BC, BMP #### [address] Lymphocytes (Bld) [#/Vol] 0.6 10*3/uL Low 1.00-4.8 [facility] Comment on above: Performed By: #### C BC, BMP #### [address] Lymphocytes/100 WBC (Bld) 8.7 % Normal . [facility] Comment on above: Performed By: #### C BC, BMP #### [address] MCH (RBC) [Entitic mass] 32.6 pg Normal 24.7-34.3 [facility] Comment on above: Performed By: #### C BC, BMP #### [address] MCV (RBC) [Entitic vol] 95.7 fL Normal 80-100 [facility] Comment on above: Performed By: #### C BC, BMP #### [address] Mean Corpuscular HGB Conc 34.1 g/dL Normal 32.0-35.0 [facility] Comment on above: Performed By: #### C BC, BMP #### [address] Monocytes (Bld) [#/Vol] 0.7 10*3/uL Normal 0.0-0.8 [facility] Comment on above: Performed By: #### C BC, BMP #### [address] Monocytes/100 WBC (Bld) 9.4 % Normal . [facility] Comment on above: Performed By: #### C BC, BMP #### [address] Neutrophils (Bld) [#/Vol] 5.5 10*3/uL Normal 1.8-7.7 [facility] Comment on above: Performed By: #### C BC, BMP #### [address] Neutrophils/100 WBC (Bld) 79.1 % Normal . [facility] Comment on above: Performed By: #### C BC, BMP #### [address] NRBC% 0.0 /100{WBC} Normal 0-0.5 [facility] Comment on above: Performed By: #### C BC, BMP #### [address] Platelet mean volume (Bld) [Entitic vol] 8.8 fL Normal 6.3-10.7 [facility] Comment on above: Performed By: #### C BC, BMP #### [facility] [address] Platelets (Bld) [#/Vol] 254 10*3/uL Normal 150-450 [facility] Comment on above: Performed By: #### C BC, BMP #### [facility] [address] RBC (Bld) [#/Vol] 3.67 10*6/uL Normal 3.60-5.00 [facility] Comment on above: Performed By: #### C BC, BMP #### [facility] [address] WBC (Bld) [#/Vol] 7.0 10*3/uL Normal 3.8-11.6 [facility] Comment on above: Performed By: #### C BC, BMP #### [facility] [address] Creatinine [Mass/volume] in Serum or PlasmaOrdered By: Magno Pichardo on 07-20-2024 Creatinine [Mass/Vol] Creatinine [Mass/v olume] in Serum or Plasma 0.60-1.20 [facility] Eosinophils Auto (Bld) [#/Vo l]Ordered By: Magno Pichardo on 07-20-2024 Eosinophils (Bld) [#/Vol] Automated eosinophil count 0.0-0.45 [facility] Eosinophils/100 WBC Auto (Bl d)Ordered By: Magno Pichardo on 07-20-2024 Eosinophils/100 WBC (Bld) Automated eosinophil % . [facility] Erythrocyte distribution wid th Auto (RBC) [Ratio]Ordered By: Magno Pichardo on 07-20-2024 Erythrocyte distribution width (RBC) [Ratio] Erythrocyte distribution width [Ratio] by Automated count 11.9-15.3 [facility] Glucose Glucometer (BldC) [M ass/Vol]Ordered By: Magno Pichardo on 07-20-2024 Glucose [Mass/Vol] Capillary blood gluc ose measurement by glucometer (mass/volume) [facility] Comment on above: Random Glucose Refer ence Range is dependent on time and content of last meal. Glucose of more than 200 mg/dL in a nonstressed, ambulatory subject supports the diagnosis of Diabetes Mellitus. Glucose Poct Glucometerson 0 07-20-2024 Glucose [Mass/Vol] 113 mg/dL Normal [facility] Comment on above: Result Comment: Rock om Glucose Reference Range is dependent on time and content of last meal. Glucose of more than 200 mg/dL in a nonstressed, ambulatory subject supports the diagnosis of Diabetes Mellitus. PERFORMED BY: [facility] [address] [place] [address] PATHOLOGIST EVS ATTENDANT NIK MARTIN M.D. Performed By: #### G LULS #### Point of Care testing , Glucose [Mass/volume] in Ser um or PlasmaOrdered By: Magno Pichardo on 07-20-2024 Glucose [Mass/Vol] Glucose [Mass/volume ] in Serum or Plasma High 70-100 [facility] Comment on above: ADA recommended refe rence rangeRandom Glucose Reference Range is dependent on time and content of last meal. Glucose of more than 200 mg/dL in a nonstressed, ambulatory subject supports the diagnosis of Diabetes Mellitus. Hematocrit Auto (Bld) [Volum e fraction]Ordered By: Magno Pichardo on 07-20-2024 Hematocrit (Bld) [Volume fraction] Hematocrit [Volume Fraction] of Blood by Automated count 34.0-46.4 [facility] Hemoglobin [Mass/volume] in BloodOrdered By: Magno Pichardo on 07-20-2024 Hemoglobin (Bld) [Mass/Vol] Hemoglobin [Mass/volume] in Blood 11.8-15.4 [facility] Leukocytes [#/volume] correc alvaro for nucleated erythrocytes in Blood by Automated counOrdered By: Magno Pichardo on 07-20-2024 WBC corrected for nucl RBC Auto (Bld) [#/Vol] Leukocytes [#/volume] corrected for nucleated erythrocytes in Blood by Automated coun 3.8-11.6 [facility] Lymphocytes Auto (Bld) [#/Vo l]Ordered By: Magno Pichardo on 07-20-2024 Lymphocytes (Bld) [#/Vol] Lymphocytes [#/volume] in Blood by Automated count Low 1.00-4.8 [facility] Lymphocytes/100 WBC Auto (Bl d)Ordered By: Magno Pichardo on 07-20-2024 Lymphocytes/100 WBC (Bld) Lymphocytes/100 leukocytes in Blood by Automated count . [facility] MCH Auto (RBC) [Entitic mass ]Ordered By: Magno Pichardo on 07-20-2024 MCH (RBC) [Entitic mass] MCH [Entitic mass] by Automated count 24.7-34.3 [facility] MCHC Auto (RBC) [Mass/Vol]Or dered By: Magno Pichardo on 07-20-2024 MCHC (RBC) [Mass/Vol] MCHC [Mass/volume] by Automated count 32.0-35.0 [facility] MCV Auto (RBC) [Entitic vol] Ordered By: Magno Pichardo on 07-20-2024 MCV (RBC) [Entitic vol] MCV [Entitic volume] by Automated count 80-100 [facility] Monocytes Auto (Bld) [#/Vol] Ordered By: Magno Pichardo on 07-20-2024 Monocytes (Bld) [#/Vol] Automated blood monocyte count 0.0-0.8 [facility] Monocytes/100 WBC Auto (Bld) Ordered By: Magno Pichardo on 07-20-2024 Monocytes/100 WBC (Bld) Automated monocyte % . [facility] Neutrophils Auto (Bld) [#/Vo l]Ordered By: Magno Pichardo on 07-20-2024 Neutrophils (Bld) [#/Vol] Neutrophils [#/volume] in Blood by Automated count 1.8-7.7 [facility] Neutrophils/100 WBC Auto (Bl d)Ordered By: Magno Pichardo on 07-20-2024 Neutrophils/100 WBC (Bld) Automated neutrophil % . [facility] No Panel InformationOrdered By: Magno Pichardo on 07-20-2024 Estimated GFR (CKD-EPI) > 60.0 mL/Min [facility] Creatinine Clearance (Chem 46.67 [facility] Nucleated erythrocytes [Pres ence] in Blood by Automated countOrdered By: Magno Pichardo on 07-20-2024 Nucleated RBC Auto Ql (Bld) Nucleated erythrocytes [Presence] in Blood by Automated count 0-0.5 [facility] Platelet mean volume Auto (B ld) [Entitic vol]Ordered By: Magno Pichardo on 07-20-2024 Platelet mean volume (Bld) [Entitic vol] Platelet mean volume [Entitic volume] in Blood by Automated count 6.3-10.7 [facility] Platelets Auto (Bld) [#/Vol] Ordered By: Magno Pichardo on 07-20-2024 Platelets (Bld) [#/Vol] Platelets [#/volume] in Blood by Automated count 150-450 [facility] Potassium [Moles/volume] in Serum or PlasmaOrdered By: Magno Pichardo on 07-20-2024 Potassium [Moles/Vol] Potassium [Moles/v olume] in Serum or Plasma 3.5-5.1 [facility] RBC Auto (Bld) [#/Vol]Ordere d By: Magno Pichardo on 07-20-2024 RBC (Bld) [#/Vol] Erythrocytes [#/volu me] in Blood by Automated count 3.60-5.00 [facility] Serum or plasma anion gap de terminationOrdered By: Magno Pichardo on 07-20-2024 Anion gap [Moles/Vol] Serum or plasma an ion gap determination 6.0-15.0 [facility] Sodium [Moles/volume] in Ser um or PlasmaOrdered By: Magno Pichardo on 07-20-2024 Sodium [Moles/Vol] Sodium [Moles/volume ] in Serum or Plasma Low 136-145 [facility] Urea nitrogen [Mass/volume] in Serum or PlasmaOrdered By: Magno Pichardo on 07-20-2024 Urea nitrogen [Mass/Vol] Urea nitrogen [Mass/volume] in Serum or Plasma 7-25 [facility] Urine Cultureon 07-20-2024 Bacteria identified Cx Nom (U) <9,000 colonies/ml mixed bacterial skin contaminants 2 Days PERFORMED BY: [place] [address] [place] [address] PATHOLOGIST EVS ATTENDANT NIK MARTIN M.D. Normal [facility] Comment on above: Performed By: #### C UU #### [facility] [address] Urine cultureOrdered By: Cora Arteaga on 07-20-2024 Bacteria identified Cx Nom (U) Urine culture [facility] Bacteria identified Cx Nom (U) Urine culture [facility] WBC Auto (Bld) [#/Vol]Ordere d By: Magno Pichardo on 07-20-2024 WBC (Bld) [#/Vol] Leukocytes [#/volume ] in Blood by Automated count 3.8-11.6 [facility] Elia 07-19-2024 L ------ Specimen: [id number] Received: 07/19/24 Status: MENG Pichardo Num: [id number] Spec Type: Surgical Subm Dr: Magno Pichardo MD Tissues: A Femoral Head - Other than Fracture (LT HIP BONE AND TISSUE) Procedures: HE/2, Gross/Micro L3, Decalcification Age/ Patient Sex Location Account Attending Physician Ashley Brown 83/F DC [id number] Magno Pichardo MD SPEC NUM: [id number] RECD: 07/19/24 STATUS: MENG PICHARDO NUM: [id number] GINA: 07/19/24 [facility] DR: Magno Pichardo MD ENTERED: 07/19/[address] [facility] [address]: JADA TYPE: Surgical DEPT: S ENTERED BY: [id number] RECV BY: [id number] ORDERED: HE/2, Gross/Micro L3, Decalcification ORDERED: HE/2, [...] medullary bone is shoemaker, firm and uniform. Classifier sections are submitted in A1?A2 after decalcification. (2, ss, Specimen: [id number] Received: 07/19/24 Status: MENG Pichardo Num: [id number] Spec Type: Surgical Subm Dr: Magno Pichardo MD Tissues: A Femoral Head - Other than Fracture (LT HIP BONE AND TISSUE) Procedures: HE/2, Gross/Micro L3, Decalcification Patient: Ashley Brown [id number] (Continued) Specimen: [id number] Received: 07/19/24 (Continued) Gross Description (Continued) Signed (signature on file) Ara Ariza MD 07/21/24 1648 Specimen: [id number] Received: 07/19/24 Status: MENG Pichardo Num: [id number] Spec Type: Surgical Subm Dr: Magno Pichardo MD Tissues: A Femoral Head - Other than Fracture (LT HIP BONE AND TISSUE) Procedures: HE/2, Gross/Micro L3, Decalcification Patient: MingoAshley Hardy [id number] (Continued) Specimen: [id number] Received: 07/19/24 (Continued) Gross Description (Continued) A)Mohsen Microscopic Description Microscopic examinations are performed supporting the above interpretation CPT Codes 05384 62759 Specimen: [id number] Received: 07/19/24 Status: MENG Pichardo Num: [id number] Spec Type: Surgical Subm Dr: Magno Pichardo MD Tissues: A Femoral Head - Other than Fracture (LT HIP BONE AND TISSUE) Procedures: HE/2, Gross/Micro L3, Decalcification Patient: Ashley Brown [id number] (Continued) Signed (signatur (more content not included)... Normal [facility] X-ray reportOrdered By: Karl Vickers on 07-19-2024 Study report [place] [id number] XRay Report Signed Patient: Ashley Brown MR#: [id number] : 1940 Acct:[id number] Age/Sex: 83 / F ADM Date: 5 Loc: DC Room: Type: [facility] Attending Dr: Magno Pichardo II, MD [...] JESUSITA 07/19/24 1320 Dictated By: Dilip Vickers Jr, DO 07/19/24 1320 Signed By: 07/19/24 1320 [facility] [place] [address] XRay Report Signed Patient: Ashley Brown MR#: [id number] : 1940 Acct:[id number] Age/Sex: 83 / F ADM Date: 5 Loc: DC Room: Type: [facility] Attending Dr: Magno Pichardo II, MD [...] complication. Impression dictated by: Dilip Vickers Jr., Bianka.O.07/19/2024 12:48 PM Dictation Location: [id number]-23 Transcribed By: JESUSITA 07/19/24 1248 Dictated By: Dilip Vickers Jr, DO 07/19/24 1247 Signed By: 07/19/24 1248 [facility] XR hip LT 1Von 07-19-2024 XR hip LT [address]V [address] [address] XRay Report Signed Patient: Ashley Brown MR#: [id number] 1 : 1940 Acct:[id number] Age/Sex: 83 / F ADM Date: 07/19/24 Loc: DC Room: Type: [facility] Attending Dr: Magno Pichardo II, MD Copies to: Magno Pichardo MD Ordering Provider: Magno Pichardo MD Date of Service: 07/19/24 XR/XR hip LT 1V: LT HIP ARTHORPLASTY Intraoperative study. Reason for exam: Left JOSE Findings: 5 images were obtained intraoperatively. Hardware was placed. Cumulative Air Kerma in mGy: 3.87 mGy XR/XR hip LT 1V Impression: Intraoperative study. Impression dictated by: Dilip Vickers Jr. D.O.07/19/2024 1:20 PM Dictation Location: [place] [address] Transcribed By: [facility] 07/19/24 1320 Dictated By: Dilip Vickers Jr, DO 07/19/24 1320 Signed By: 07/19/24 1320 Normal [facility] XR low pelvis w/LT x-table h ipon 07-19-2024 XR low pelvis w/LT x-table hip [facility] [address] XRay Report Signed Patient: Ashley Brown MR#: [id number] 1 : 1940 Acct:[id number] Age/Sex: 83 / F ADM Date: 07/19/24 Loc: DC Room: Type: [facility] Attending Dr: Magno Pichardo II, MD [...] radiographic complication. Impression dictated by: Dilip Vickers Jr. D.O.07/19/2024 12:48 PM Dictation Location: [place] [address] Transcribed By: [facility] 07/19/24 1248 Dictated By: Dilip Vickers Jr, DO 07/19/24 1247 Signed By: 07/19/24 1248 Normal [facility] Appearance of UrineOrdered B y: Magno Pichardo on 07-08-2024 Appearance (U) Urine appearance Clear [facility] Bacteria [Presence] in Urine by AutomatedOrdered By: Magno Pichardo on 07-08-2024 Bacteria Auto Ql (U) Bacteria [Presence] in Urine by Automated None Seen [facility] Basic Metabolic Panelon Anion gap [Moles/Vol] 12.0 mmol/L Normal 6.0-15.0 Th e [facility] Comment on above: Performed By: #### C BC, BMP #### [address] Calcium [Mass/Vol] 9.2 mg/dL Normal 8.6-10.3 [facility] Comment on above: Result Comment: PERF ORMED BY: [place] [address] PATHOLOGIST EVS ATTENDANT NIK MARTIN M.D. Performed By: #### C BC, BMP #### [address] Chloride [Moles/Vol] 106 mmol/L Normal 98-107 [facility] Comment on above: Performed By: #### C BC, BMP #### [place] [id number] [facility] CO2 [Moles/Vol] 25.1 mmol/L Normal 21.0-31.0 [facility] Comment on above: Performed By: #### C BC, BMP #### [address] Creatinine [Mass/Vol] 0.80 mg/dL Normal 0.60-1.20 [facility] Comment on above: Performed By: #### C BC, BMP #### [facility] [address] [place] [id number] [place] GFR/1.73 sq M.predicted MDRD (S/P/Bld) [Vol rate/Area] mL/min/{1.73_m2} Normal [facility] Comment on above: Performed By: #### C ABEL, BMP #### [address] Glucose [Mass/Vol] 82 mg/dL Normal 70-100 [facility] Comment on above: Result Comment: Rock Glucose Reference Range is dependent on time and content of last meal. Glucose of more than 200 mg/dL in a nonstressed, ambulatory subject supports the diagnosis of Diabetes Mellitus. ADA recommended reference range Performed By: #### C ABEL, BMP #### [address] Potassium [Moles/Vol] 4.1 mmol/L Normal 3.5-5.1 [facility] Comment on above: Performed By: #### C ABEL, BMP #### [address] Sodium [Moles/Vol] 139 mmol/L Normal 136-145 [facility] Comment on above: Performed By: #### C ABEL, BMP #### [address] Urea nitrogen [Mass/Vol] 31 mg/dL High 7-25 [facility] Comment on above: Performed By: #### C ABEL, BMP #### [place] [address] [place] Basophils Auto (Bld) [#/Vol] Ordered By: Magno Pichardo on 07-08-2024 Basophils (Bld) [#/Vol] Automated basophil count 0.0-0.2 [facility] Basophils/100 WBC Auto (Bld) Ordered By: Magno Pichardo on 07-08-2024 Basophils/100 WBC (Bld) Automated basophil % . [facility] Bilirubin Test strip Ql (U)O rdered By: Magno Pichardo on 07-08-2024 Bilirubin Ql (U) Bilirubin.total [Pre sence] in Urine by Test strip Negative [facility] Calcium [Mass/volume] in Ser um or PlasmaOrdered By: Magno Pichardo on 07-08-2024 Calcium [Mass/Vol] Calcium [Mass/volume ] in Serum or Plasma 8.6-10.3 [facility] Carbon dioxide, total [Moles /volume] in Serum or PlasmaOrdered By: Magno Pichardo on 07-08-2024 CO2 [Moles/Vol] Carbon dioxide, tota l [Moles/volume] in Serum or Plasma 21.0-31.0 [facility] Chloride [Moles/volume] in S tejas or PlasmaOrdered By: Magno Pichardo on 07-08-2024 Chloride [Moles/Vol] Chloride [Moles/vol ume] in Serum or Plasma 98-107 [facility] Color Auto (U)Ordered By: Suri Pichardo on 07-08-2024 Color (U) Color of Urine by Auto [facility] Blood Count Auto Di ffon 07-08-2024 Basophils (Bld) [#/Vol] 0.1 10*3/uL Normal 0.0-0.2 [facility] Comment on above: Result Comment: PERF ORMED BY: [place] [address] PATHOLOGIST EVS ATTENDANT NIK MARTIN M.D. Performed By: #### C BC, BMP #### [address] Basophils/100 WBC (Bld) 1.8 % Normal . [facility] Comment on above: Performed By: #### C BC, BMP #### [place] [address] [place] Eosinophils (Bld) [#/Vol] 0.3 10*3/uL Normal 0.0-0.45 [facility] Comment on above: Performed By: #### C BC, BMP #### [place] [address] [place] Eosinophils/100 WBC (Bld) 4.7 % Normal . [facility] Comment on above: Performed By: #### C BC, BMP #### [address] Erythrocyte distribution width (RBC) [Ratio] 13.3 % Normal 11.9-15.3 [facility] Comment on above: Performed By: #### C BC, BMP #### [address] Hematocrit (Bld) [Volume fraction] 37.6 % Normal 34.0-46.4 [facility] Comment on above: Performed By: #### C BC, BMP #### [address] Hemoglobin (Bld) [Mass/Vol] 12.5 g/dL Normal 11.8-15.4 [facility] Comment on above: Performed By: #### C BC, BMP #### [address] Lymphocytes (Bld) [#/Vol] 0.8 10*3/uL Low 1.00-4.8 [facility] Comment on above: Performed By: #### C BC, BMP #### [address] Lymphocytes/100 WBC (Bld) 13.6 % Normal . [facility] Comment on above: Performed By: #### C BC, BMP #### [address] MCH (RBC) [Entitic mass] 31.8 pg Normal 24.7-34.3 [facility] Comment on above: Performed By: #### C BC, BMP #### [address] MCV (RBC) [Entitic vol] 95.9 fL Normal 80-100 [facility] Comment on above: Performed By: #### C BC, BMP #### [address] Mean Corpuscular HGB Conc 33.2 g/dL Normal 32.0-35.0 [facility] Comment on above: Performed By: #### C BC, BMP #### [address] Monocytes (Bld) [#/Vol] 0.6 10*3/uL Normal 0.0-0.8 [facility] Comment on above: Performed By: #### C BC, BMP #### [address] Monocytes/100 WBC (Bld) 10.4 % Normal . [facility] Comment on above: Performed By: #### C BC, BMP #### [address] Neutrophils (Bld) [#/Vol] 3.9 10*3/uL Normal 1.8-7.7 [facility] Comment on above: Performed By: #### C BC, BMP #### [address] Neutrophils/100 WBC (Bld) 69.5 % Normal . [facility] Comment on above: Performed By: #### C ABEL, BMP #### [address] NRBC% 0.0 /100{WBC} Normal 0-0.5 [facility] Comment on above: Performed By: #### C ABEL, BMP #### [address] Platelet mean volume (Bld) [Entitic vol] 8.7 fL Normal 6.3-10.7 [facility] Comment on above: Performed By: #### C BC, BMP #### [place] [address] [place] Platelets (Bld) [#/Vol] 306 10*3/uL Normal 150-450 [facility] Comment on above: Performed By: #### C BC, BMP #### [place] [address] [place] RBC (Bld) [#/Vol] 3.92 10*6/uL Normal 3.60-5.00 [facility] Comment on above: Performed By: #### C BC, BMP #### [place] [address] [place] WBC (Bld) [#/Vol] 5.5 10*3/uL Normal 3.8-11.6 [facility] Comment on above: Performed By: #### C BC, BMP #### [facility] [address] [place] [address] [place] Creatinine [Mass/volume] in Serum or PlasmaOrdered By: Magno Pichardo on 07-08-2024 Creatinine [Mass/Vol] Creatinine [Mass/v olume] in Serum or Plasma 0.60-1.20 [facility] Dipstick and Microscopicon 0 07-08-2024 Appearance (U) Clear Normal Clear [facility] Comment on above: Order Comment: Name Collection Type:: Clean-Voided Midstream Performed By: #### A DDONUAPLUS, CUU #### [place] [address] [place] Bacteria,Urine Rare Normal None Seen [facility] Comment on above: Order Comment: Name Collection Type:: Clean-Voided Midstream Performed By: #### A DDONUAPLUS, CUU #### [place] [address] [place] Bilirubin,Urine Negative Normal Negative [facility] Comment on above: Order Comment: Name Collection Type:: Clean-Voided Midstream Performed By: #### A DDONUAPLUS, CUU #### [place] [address] [place] Color (U) Light-Yellow Normal Yellow [facility] Comment on above: Order Comment: Name Collection Type:: Clean-Voided Midstream Performed By: #### A DDONUAPLUS, CUU #### [facility] [address] [place] [address] [place] Glucose Ql (U) Normal Normal Normal [facility] Comment on above: Order Comment: Name Collection Type:: Clean-Voided Midstream Performed By: #### A DDONUAPLUS, CUU #### [facility] [address] [place] [id number] [place] Hyaline Casts,Urine 0 [LPF] Normal 0-8 [facility] Comment on above: Order Comment: Name Collection Type:: Clean-Voided Midstream Performed By: #### A DDONUAPLUS, CUU #### [address] Ketones Ql (U) Negative Normal Negative [facility] Comment on above: Order Comment: Name Collection Type:: Clean-Voided Midstream Performed By: #### A DDONUAPLUS, CUU #### [address] Leukocyte esterase Test strip Ql (U) 3+ High Negative [facility] Comment on above: Order Comment: Name Collection Type:: Clean-Voided Midstream Performed By: #### A DDONUAPLUS, CUU #### [address] Mucus,Urine Rare Normal [facility] Comment on above: Order Comment: Name Collection Type:: Clean-Voided Midstream Result Comment: PERF ORMED BY: [place] [address] PATHOLOGIST EVS ATTENDANT NIK MARTIN M.D. Performed By: #### A DDONUAPLUS, CUU #### [place] [address] [place] Nitrite,Urine Negative Normal Negative [facility] Comment on above: Order Comment: Name Collection Type:: Clean-Voided Midstream Performed By: #### A DDONUAPLUS, CUU #### [address] Occult Blood,Urine Negative Normal Negative [facility] Comment on above: Order Comment: Name Collection Type:: Clean-Voided Midstream Result Comment: PERF ORMED BY: [place] [address] PATHOLOGIST EVS ATTENDANT NIK MARTIN M.D. Performed By: #### A DDONUAPLUS, CUU #### [place] [address] [place] pH (U) 5.5 [pH] Normal 5.0-9.0 [facility] Comment on above: Order Comment: Name Collection Type:: Clean-Voided Midstream Performed By: #### A DDONUAPLUS, CUU #### [address] Protein,Urine Negative Normal Negative [facility] Comment on above: Order Comment: Name Collection Type:: Clean-Voided Midstream Performed By: #### A DDONUAPLUS, CUU #### [address] RBC,Urine 1 [HPF] Normal 0-4 [facility] Comment on above: Order Comment: Name Collection Type:: Clean-Voided Midstream Performed By: #### A DDONUAPLUS, CUU #### [address] Specificy [place],Urine 1.026 Normal 1.001-1.03 0 [facility] Comment on above: Order Comment: Name Collection Type:: Clean-Voided Midstream Performed By: #### A DDONUAPLUS, CUU #### [place] [address] [place] Squamous Epithelial Cell,Urine 1 [HPF] Normal 0-2 [facility] Comment on above: Order Comment: Name Collection Type:: Clean-Voided Midstream Performed By: #### A DDONUAPLUS, CUU #### [place] [address] [place] Urobilinogen,Urine Normal Normal Normal [facility] Comment on above: Order Comment: Name Collection Type:: Clean-Voided Midstream Performed By: #### A DDONUAPLUS, CUU #### [place] [address] [place] WBC,Urine 10 [HPF] High 0-4 [facility] Comment on above: Order Comment: Name Collection Type:: Clean-Voided Midstream Performed By: #### A DDONUAPLUS, CUU #### [address] ECG 12 lead ECGon 07-08-2024 ECG 12 lead ECG [facility] [place] [address] Electrocardiograph Report Signed Patient: Ashley Brown MR#: [id number] 1 : 1940 Acct:[id number] Age/Sex: 83 / F ADM Date: 07/08/24 Loc: PS Room: Type: [facility] Attending Dr: Magno Pichardo II, MD Ordering [...] Guillermo MD 0 07/08/24 1555 Normal [facility] Eosinophils Auto (Bld) [#/Vo l]Ordered By: Magno Pichardo on 07-08-2024 Eosinophils (Bld) [#/Vol] Automated eosinophil count 0.0-0.45 [facility] Eosinophils/100 WBC Auto (Bl d)Ordered By: Magno Pichardo on 07-08-2024 Eosinophils/100 WBC (Bld) Automated eosinophil % . [facility] Epithelial cells.squamous [# /area] in Urine sediment by Automated countOrdered By: Magno Pichardo on 07-08-2024 Epithelial cells.squamous Auto (Urine sed) [#/Area] Epithelial cells.squamous [#/area] in Urine sediment by Automated count 0-2 [facility] Erythrocyte distribution wid th Auto (RBC) [Ratio]Ordered By: Magno Pichardo on 07-08-2024 Erythrocyte distribution width (RBC) [Ratio] Erythrocyte distribution width [Ratio] by Automated count 11.9-15.3 [facility] Erythrocytes [#/area] in Uri ne sediment by Automated countOrdered By: Magno Pichardo on 07-08-2024 RBC Auto (Urine sed) [#/Area] Erythrocytes [#/area] in Urine sediment by Automated count 0-4 [facility] Fructosamineon 07-08-2024 Fructosamine 211 umol/L Normal 0-285 [facility] Comment on above: Result Comment: Publ ished reference interval for apparently healthy subjects between age 20 and 60 is 205 - 285 umol/L and in a poorly controlled diabetic population is 228 - 563 umol/L with a mean of 396 umol/L. Performed at: [facility] [address] [place], [place] [id number] Towing Pilot: Federico Guzman PhD, Phone: [phone] PERFORMED BY: [address] [place] [address] PATHOLOGIST EVS ATTENDANT NIK MARTIN M.D. Performed By: #### G LULS #### Point of Care testing , Fructosamine [Moles/volume] in Serum or PlasmaOrdered By: Magno Pichardo on 07-08-2024 Fructosamine [Moles/Vol] Fructosamine [Moles/volume] in Serum or Plasma 0-285 [facility] Comment on above: Published reference interval for apparently healthysubjects between age 20 and 60 is 205 - 285 umol/L and in apoorly controlled diabetic population is 228 - 563 umol/Lwith a mean of 396 umol/L.Performed at: [facility] [id number] Director: Federico Guzman PhD, Phone: [phone] Glucose [Mass/volume] in Ser um or PlasmaOrdered By: Magno Pichardo on 07-08-2024 Glucose [Mass/Vol] Glucose [Mass/volume ] in Serum or Plasma 70-100 [facility] Comment on above: ADA recommended refe [...] [Mass/volume] in Urine by Test strip Normal [facility] Hematocrit Auto (Bld) [Volum e fraction]Ordered By: Magno Pichardo on 07-08-2024 Hematocrit (Bld) [Volume fraction] Hematocrit [Volume Fraction] of Blood by Automated count 34.0-46.4 [facility] Hemoglobin Test strip Ql (U) Ordered By: Magno Pichardo on 07-08-2024 Hemoglobin Ql (U) Hemoglobin [Presence ] in Urine by Test strip Negative [facility] Hemoglobin [Mass/volume] in BloodOrdered By: Magno Pichardo on 07-08-2024 Hemoglobin (Bld) [Mass/Vol] Hemoglobin [Mass/volume] in Blood 11.8-15.4 [facility] Hyaline casts [#/area] in Ur ine sediment by Automated countOrdered By: Magno Pichardo on 07-08-2024 Hyaline casts Auto (Urine sed) [#/Area] Hyaline casts [#/area] in Urine sediment by Automated count 0-8 [facility] Ketones Test strip Ql (U)Ord ered By: Magno Pichardo on 07-08-2024 Ketones Ql (U) Ketones [Presence] i n Urine by Test strip Negative [facility] Leukocyte esterase [Presence ] in Urine by Test stripOrdered By: Magno Pichardo on 07-08-2024 Leukocyte esterase Test strip Ql (U) Leukocyte esterase [Presence] in Urine by Test strip High Negative [facility] Leukocytes [#/area] in Urine sediment by Automated countOrdered By: Magno Pichardo on 07-08-2024 WBC Auto (Urine sed) [#/Area] Leukocytes [#/area] in Urine sediment by Automated count High 0-4 [facility] Leukocytes [#/volume] correc alvaro for nucleated erythrocytes in Blood by Automated counOrdered By: Magno Pichardo on 07-08-2024 WBC corrected for nucl RBC Auto (Bld) [#/Vol] Leukocytes [#/volume] corrected for nucleated erythrocytes in Blood by Automated coun 3.8-11.6 [facility] Lymphocytes Auto (Bld) [#/Vo l]Ordered By: Magno Pichardo on 07-08-2024 Lymphocytes (Bld) [#/Vol] Lymphocytes [#/volume] in Blood by Automated count Low 1.00-4.8 [facility] Lymphocytes/100 WBC Auto (Bl d)Ordered By: Magno Pichardo on 07-08-2024 Lymphocytes/100 WBC (Bld) Lymphocytes/100 leukocytes in Blood by Automated count . [facility] MCH Auto (RBC) [Entitic mass ]Ordered By: Magno Pichardo on 07-08-2024 MCH (RBC) [Entitic mass] MCH [Entitic mass] by Automated count 24.7-34.3 [facility] MCHC Auto (RBC) [Mass/Vol]Or dered By: Magno Pichardo on 07-08-2024 MCHC (RBC) [Mass/Vol] MCHC [Mass/volume] by Automated count 32.0-35.0 [facility] MCV Auto (RBC) [Entitic vol] Ordered By: Magno Pichardo on 07-08-2024 MCV (RBC) [Entitic vol] MCV [Entitic volume] by Automated count 80-100 [facility] Monocytes Auto (Bld) [#/Vol] Ordered By: Magno Pichardo on 07-08-2024 Monocytes (Bld) [#/Vol] Automated blood monocyte count 0.0-0.8 [facility] Monocytes/100 WBC Auto (Bld) Ordered By: Magno Pichardo on 07-08-2024 Monocytes/100 WBC (Bld) Automated monocyte % . [facility] Mucus [Presence] in Urine by AutomatedOrdered By: Magno Pichardo on 07-08-2024 Mucus Auto Ql (U) Mucus [Presence] in Urine by Automated [facility] Neutrophils Auto (Bld) [#/Vo l]Ordered By: Magno Pichardo on 07-08-2024 Neutrophils (Bld) [#/Vol] Neutrophils [#/volume] in Blood by Automated count 1.8-7.7 [facility] Neutrophils/100 WBC Auto (Bl d)Ordered By: Magno Pichardo on 07-08-2024 Neutrophils/100 WBC (Bld) Automated neutrophil % . [facility] Nitrite Test strip Ql (U)Ord ered By: Magno Pichardo on 07-08-2024 Nitrite Ql (U) Nitrite [Presence] i n Urine by Test strip Negative [facility] No Panel InformationOrdered By: Magno Pichardo on 07-08-2024 Estimated GFR (CKD-EPI) > 60.0 mL/Min [facility] Creatinine Clearance (Chem N/A [facility] Nucleated erythrocytes [Pres ence] in Blood by Automated countOrdered By: Magno Pichardo on 07-08-2024 Nucleated RBC Auto Ql (Bld) Nucleated erythrocytes [Presence] in Blood by Automated count 0-0.5 [facility] Platelet mean volume Auto (B ld) [Entitic vol]Ordered By: Magno Pichardo on 07-08-2024 Platelet mean volume (Bld) [Entitic vol] Platelet mean volume [Entitic volume] in Blood by Automated count 6.3-10.7 [facility] Platelets Auto (Bld) [#/Vol] Ordered By: Magno Pichardo on 07-08-2024 Platelets (Bld) [#/Vol] Platelets [#/volume] in Blood by Automated count 150-450 [facility] Potassium [Moles/volume] in Serum or PlasmaOrdered By: Magno Pichardo on 07-08-2024 Potassium [Moles/Vol] Potassium [Moles/v olume] in Serum or Plasma 3.5-5.1 [facility] Protein Test strip (U) [Mass /Vol]Ordered By: Magno Pichardo on 07-08-2024 Protein (U) [Mass/Vol] Protein [Mass/volume] in Urine by Test strip Negative [facility] RBC Auto (Bld) [#/Vol]Ordere d By: Magno Pichardo on 07-08-2024 RBC (Bld) [#/Vol] Erythrocytes [#/volu me] in Blood by Automated count 3.60-5.00 [facility] Serum or plasma anion gap de terminationOrdered By: Magno Pichardo on 07-08-2024 Anion gap [Moles/Vol] Serum or plasma an ion gap determination 6.0-15.0 [facility] Sodium [Moles/volume] in Ser um or PlasmaOrdered By: Magno Pichardo on 07-08-2024 Sodium [Moles/Vol] Sodium [Moles/volume ] in Serum or Plasma 136-145 [facility] Specific gravity Test strip (U) [Rel density]Ordered By: Magno Pichardo on 07-08-2024 Specific gravity (U) [Rel density] Specific gravity of Urine by Test strip 1.001-1.03 0 [facility] Urea nitrogen [Mass/volume] in Serum or PlasmaOrdered By: Magno Pichardo on 07-08-2024 Urea nitrogen [Mass/Vol] Urea nitrogen [Mass/volume] in Serum or Plasma High 7-25 [facility] Urine Cultureon 07-08-2024 Bacteria identified Cx Nom (U) ORGANISM: Jessica albicans (O:CANALB) Nolan Count <10,000 PERFORMED BY: [place] [address] PATHOLOGIST EVS ATTENDANT NIK MARTIN M.D. Normal [facility] Comment on above: Performed By: #### A DDONUAPLUS, CUU #### [address] Urine cultureOrdered By: Tony Pichardo on 07-08-2024 Bacteria identified Cx Nom (U) Abnormal [facility] Urobilinogen Test strip (U) [Mass/Vol]Ordered By: Magno Pichardo on 07-08-2024 Urobilinogen (U) [Mass/Vol] Urobilinogen [Mass/volume] in Urine by Test strip Normal [facility] WBC Auto (Bld) [#/Vol]Ordere d By: Magno Pichardo on 07-08-2024 WBC (Bld) [#/Vol] Leukocytes [#/volume ] in Blood by Automated count 3.8-11.6 [facility] pH Test strip (U)Ordered By: Magno Pichardo on 07-08-2024 pH (U) pH of Urine by Test strip 5.0-9.0 [facility] 36on 06-21-2024 36 Patient is needing clearance for a left hip surgery on 07/19/[address] Pichardo. Patient stated she just needs any cardiology testing that was done sent over to Dr Pichardo office. Lashonda PEOPLES Normal [facility] Telephoneon 06-21-2024 Telephone [phone] Ashley Brown 1940 F Date Provider Department Center 06/21/2024 SabaJOSSELINKEANUJEREMIAS CARD [facility] Family History Problem Relation Age of Onset Coronary artery disease Father Other Father Family Status - Relation Status Age at Father Reason for Visit and Comments: Surgical Clearance [Other] Normal [facility] A1C with Estimated Average Antoinette rao 05-05-2024 Glucose [Mass/Vol] 126 mg/dL Normal [facility] Comment on above: Result Comment: PERF ORMED BY: [place] [address] PATHOLOGIST EVS ATTENDANT BUBBA MERIDA M.D. Performed By: #### H EPATIC #### [address] HbA1c (Bld) [Mass fraction] 6.0 % High 4.3-5.6 [facility] Comment on above: Result Comment: Incr eased risk for diabetes: 5.7 - 6.4 diabetes: >6.4 glycemic control for adults with diabetes: <7.0 Performed By: #### H EPATIC #### [address] Albumin Levelon 05-05-2024 Albumin [Mass/Vol] 3.7 g/dL Normal 3.5-5.7 [facility] Comment on above: Performed By: #### G LULS #### Point of Care testing , Albumin [Mass/volume] in Ser um or Plasma by Bromocresol green (BCG) dye binding methoOrdered By: Magno Pichardo on 05-05-2024 Albumin BCG dye [Mass/Vol] 3.7 g/dL 3.5-5.7 [facility] Albumin BCG dye [Mass/Vol] Albumin [Mass/volume] in Serum or Plasma by Bromocresol green (BCG) dye binding metho 3.5-5.7 [facility] Blood estimated average gluc ose determination by estimation from glycated hemoglobinOrdered By: Magno Pichardo on 05-05-2024 Average glucose Estimated from glycated hemoglobin (Bld) [Mass/Vol] Glucose mean value [Mass/volume] in Blood Estimated from glycated hemoglobin [facility] Hemoglobin A1c/Hemoglobin.to fareed in BloodOrdered By: Magno Pichardo on 05-05-2024 HbA1c (Bld) [Mass fraction] Hemoglobin A1c percentage High 4.3-5.6 [facility] Comment on above: Increased risk for d iabetes: 5.7 - 6.4diabetes: >6.4glycemic control for adults with diabetes: <7.0 Hemoglobin [Mass/volume] in BloodOrdered By: Magno Pichardo on 05-05-2024 Hemoglobin (Bld) [Mass/Vol] 12.6 g/dL Normal 11.8-15.4 [facility] Comment on above: Result Comment: PERF ORMED BY: [facility] [address] [place] [address] PATHOLOGIST EVS ATTENDANT BUBBA MERIDA M.D. Performed By: #### G LULS #### Point of Care testing , Hemoglobin (Bld) [Mass/Vol] Hemoglobin [Mass/volume] in Blood 11.8-15.4 [facility] MRSA Cultureon 05-05-2024 MRSA Culture MRSA Culture Results No MRSA Isolated 2 Days PERFORMED BY: [facility] [address] [place] [address] PATHOLOGIST EVS ATTENDANT BUBBA MERIDA M.D. Normal [facility] Comment on above: Performed By: #### H EPATIC #### [facility] [address] Vitamin D 25 Hydroxy Totalon 05-05-2024 Vitamin D 25 Hydroxy Total 28.4 ng/mL Low 30-100 [facility] Comment on above: Result Comment: HEATH MIN D STATUS 25(OH)VITAMIN D RANGE (ng/mL) Deficient <20 Insufficient 20 to <30 Sufficient 30 to 100 Reference: Marley MF,Joanne NC, Jayjay ESPOSITO, et al. Evaluation,treatment, and prevention of vitamin D deficiency; an Endocrine Society clinical practice guideline. JCEM. 2010; 96(7):1911-. PERFORMED BY: [place] [address] PATHOLOGIST EVS ATTENDANT BUBBA MERIDA M.D. Performed By: #### H EPATIC #### [address] Vitamin D+Metabolites [Mass/ volume] in Serum or PlasmaOrdered By: Magno Pichardo on 05-05-2024 Vitamin D+Metabolites [Mass/Vol] 28.4 ng/mL Low 30-100 [facility] Comment on above: VITAMIN D STATUS 25( OH)VITAMIN D RANGE (ng/mL) Deficient <20 Insufficient 20 to <30Sufficient 30 to 100Reference: Marley GUILLAUME,Joanne ZHENG, Jayjay ESPOSITO, et al. Evaluation,treatment, and prevention of vitamin D deficiency; an Endocrine Society clinical practice guideline. JCEM. 2010; 96(7):1911-. Vitamin D+Metabolites [Mass/Vol] Vitamin D+Metabolites [Mass/volume] in Serum or Plasma Low 30-100 [facility] Comment on above: VITAMIN D STATUS 25( OH)VITAMIN D RANGE (ng/mL) Deficient <20 Insufficient 20 to <30Sufficient 30 to 100Reference: Marley GUILLAUME,Joanne ZHENG, Jayjay ESPOSITO, et al. Evaluation,treatment, and prevention of vitamin D deficiency; an Endocrine Society clinical practice guideline. JCEM. 2010; 96(7):1911-30. Wound methicillin resistant Staphylococcus aureus (MRSA) cultureOrdered By: Magno Pichardo on 05-05-2024 MRSA isol Org specific cx Ql (Unsp spec) Wound methicillin resistant Staphylococcus aureus (MRSA) culture [facility] Respiratory specimen 2019 no enrrique coronavirus RNA detection by probe and target amplifion 04-15-2024 SARS-CoV-2 (COVID-19) RNA KEYON+probe Ql (Resp) Positive [facility] SARS-CoV-2 (COVID-19) RNA KEYON+probe Ql (Resp) Respiratory specimen 2019 novel coronavirus RNA detection by probe and target amplifi [facility] Influenza virus B Ag [Presen ce] in Upper respiratory specimen by Rapid immunoassayon 03-12-2024 FLUBV Ag IA.rapid Ql (Nph) Negative [facility] No Panel Informationon 03-12 Influenza Type A (Rapid) Negative [facility] POC SARS CoV-2 Antigen Negative [facility] Optical coherence tomography study reporton 02-23-2024 [facility] Study observation (narrative) [facility] XR hip LT min 2V(w/wo pelvis )*on 02-19-2024 XR hip LT min 2V(w/wo pelvis)* [facility] [address] [place] [address] XRay Report Signed Patient: Ashley Brown MR#: [id number] 1 : 1940 Acct:[id number] Age/Sex: 83 / F ADM Date: 02/19/24 Loc: [facility] Room: Type: [facility] Attending Dr: Magno Pichardo II, MD Copies [...] PROCESS.. Impression dictated by: Dilip Vickers Jr., D.OCortez02/19/2024 3:36 PM Dictation Location: [place] [address] Transcribed By: [facility] 02/19/24 1536 Dictated By: Dilip Vickers Jr, DO 02/19/24 1535 Signed By: 02/19/24 1536 Normal [facility] Cholesterol in LDL Calc [Mas s/Vol]on 02-04-2024 Cholesterol in LDL [Mass/Vol] 69.0 mg/dL [facility] Comment on above: <100 mg/dl [id number] 0-129 mg/dl NEAR OR ABOVE [id number] mg/dl BORDERLINE ANXT305-146 mg/dl HIGH>190 mg/dl VERY HIGH Cholesterol in VLDL Calc [Ma ss/Vol]on 02-04-2024 Cholesterol in VLDL [Mass/Vol] 16.6 mg/dL [facility] Globulin Calc (S) [Mass/Vol] on 02-04-2024 Globulin (S) [Mass/Vol] 3.4 g/dL [facility] Laboratory - Chemistry and C hemistry - challengeon 02-04-2024 Albumin [Mass/Vol] 3.5 g/dL 3.4-5.0 [facility] ALP [Catalytic activity/Vol] 84 U/L 46-116 [facility] ALT [Catalytic activity/Vol] 23 U/L 14-59 [facility] AST [Catalytic activity/Vol] 20 U/L 15-37 [facility] Bilirubin [Mass/Vol] 0.5 mg/dL 0.2-1.0 [facility] Bilirubin.direct [Mass/Vol] 0.1 mg/dL 0.0-0.2 [facility] Cholesterol [Mass/Vol] 163 mg/dL <=200 [facility] Cholesterol in HDL [Mass/Vol] 78 mg/dL High 40-60 [facility] Comment on above: > or =60 mg/dl - LOW CARDIOVASCULAR RISK<40 mg/dl - HIGH CARDIOVASCULAR RISK Protein [Mass/Vol] 6.9 g/dL 6.4-8.2 [facility] Triglyceride [Mass/Vol] 83 mg/dL <=150 [facility] Office Visiton 02-04-2024 Follow-up visit [id number] Ashley Brown 1940 F Date Provider Department Center 02/04/2024 JEREMIAS JONES KIANNA [facility] Family History Problem Relation Age of Onset Coronary artery disease Father Other Father Family Status - Relation Status Age at Father Level of Service:56720 [place] OFFICE/OUTPATIENT ESTABLISHED MOD MDM 30 MIN Normal [facility] Serum or plasma albumin/glob ulin mass ratioon 02-04-2024 Albumin/Globulin [Mass ratio] 1.0 {ratio} [facility] Serum or plasma total choles terol/high density lipoprotein (HDL) cholesterol mass marivel 02-04-2024 Cholesterol.total/Cho lesterol in HDL [Mass ratio] 2.1 {ratio} [facility] Comment on above: 3.3 - 4.4 LOW RISK4. 4 - 7.1 AVERAGE RISK7.1 - 11.0 MODERATE RISK>11.0 HIGH RISK Basophils Auto (Bld) [#/Vol] on 12-20-2023 Basophils (Bld) [#/Vol] 0.1 10 3/uL 0.0-0.1 [facility] Basophils/100 WBC Auto (Bld) on 12-20-2023 Basophils/100 WBC (Bld) 1.1 % 0.2-2.0 [facility] Eosinophils/100 WBC Auto (Bl d)on 12-20-2023 Eosinophils/100 WBC (Bld) 3.2 % 0.9-7.0 [facility] Erythrocyte distribution wid th Auto (RBC) [Ratio]on 12-20-2023 Erythrocyte distribution width (RBC) [Ratio] 12.4 % 11.0-15.0 [facility] Estimated glomerular filtrat ion rate (GFR) non- Americanon 12-20-2023 GFR/1.73 sq M.predicted among non-blacks MDRD (S/P/Bld) [Vol rate/Area] mL/min/{1.73_m2} >=60 [facility] Globulin Calc (S) [Mass/Vol] on 12-20-2023 Globulin (S) [Mass/Vol] 3.6 g/dL [facility] Hematocrit Auto (Bld) [Volum e fraction]on 12-20-2023 Hematocrit (Bld) [Volume fraction] 39.4 % 36.0-48.0 [facility] Hemoglobin [Mass/volume] in Bloodon 12-20-2023 Hemoglobin (Bld) [Mass/Vol] 12.4 g/dL 12.0-16.0 [facility] Laboratory - Chemistry and C hemistry - challengeon 12-20-2023 Albumin [Mass/Vol] 3.4 g/dL 3.4-5.0 [facility] ALP [Catalytic activity/Vol] 86 U/L 46-116 [facility] ALT [Catalytic activity/Vol] 21 U/L 14-59 [facility] AST [Catalytic activity/Vol] 21 U/L 15-37 [facility] Bilirubin [Mass/Vol] 0.5 mg/dL 0.2-1.0 [facility] Calcium [Mass/Vol] 9.0 mg/dL 8.5-10.1 [facility] Chloride [Moles/Vol] 105 mmol/L 98-107 [facility] CO2 [Moles/Vol] 25.9 mmol/L 21.0-32.0 [facility] Creatinine [Mass/Vol] 0.83 mg/dL 0.55-1.02 [facility] GFR/1.73 sq M.predicted MDRD (S/P/Bld) [Vol rate/Area] mL/min/{1.73_m2} >=60 [facility] Glucose [Mass/Vol] 88 mg/dL 74-106 [facility] Potassium [Moles/Vol] 4.3 mmol/L 3.5-5.1 [facility] Protein [Mass/Vol] 7.0 g/dL 6.4-8.2 [facility] Sodium [Moles/Vol] 140 mmol/L 136-145 [facility] Urea nitrogen [Mass/Vol] 16.0 mg/dL 7.0-18.0 [facility] Urea nitrogen/Creatinine [Mass ratio] 19.3 mg/mg [facility] Laboratory - Hematology and Cell countson 12-20-2023 Immature granulocytes/100 WBC (Bld) 0.2 % 0.0-0.5 [facility] Leukocytes [#/volume] correc alvaro for nucleated erythrocytes in Blood by Automated counon 12-20-2023 WBC corrected for nucl RBC Auto (Bld) [#/Vol] 6.2 10 3/uL 4.0-11.0 [facility] [facility] Auto (Bld) [#/Vo l]on 12-20-2023 Lymphocytes (Bld) [#/Vol] 0.8 10 3/uL Low 1.2-3.8 [facility] Lymphocytes/100 WBC Auto (Bl d)on 12-20-2023 Lymphocytes/100 WBC (Bld) 12.4 % Low 20.5-60.0 [facility] MCH Auto (RBC) [Entitic mass ]on 12-20-2023 MCH (RBC) [Entitic mass] 31.1 pg 26.7-34.0 [facility] MCHC Auto (RBC) [Mass/Vol]on 12-20-2023 MCHC (RBC) [Mass/Vol] 31.5 g/dL 29.9-35.2 [facility] MCV Auto (RBC) [Entitic vol] on 12-20-2023 MCV (RBC) [Entitic vol] 98.7 fL 81.0-99.0 [facility] Monocytes Auto (Bld) [#/Vol] on 12-20-2023 Monocytes (Bld) [#/Vol] 0.5 10 3/uL 0.3-0.8 [facility] Monocytes/100 WBC Auto (Bld) on 12-20-2023 Monocytes/100 WBC (Bld) 8.4 % 1.7-12.0 [facility] Neutrophils Auto (Bld) [#/Vo l]on 12-20-2023 Neutrophils (Bld) [#/Vol] 4.6 10 3/uL 1.4-6.5 [facility] Neutrophils/100 WBC Auto (Bl d)on 12-20-2023 Neutrophils/100 WBC (Bld) 74.7 % 43.0-75.0 [facility] No Panel Informationon 12-19 Eosinophils # (Auto) 0.2 10 3/uL 0.0-0.7 [facility] Immature Granulocyte # (Auto) 0.01 10 3/uL 0.00-0.03 [facility] Platelet mean volume Auto (B ld) [Entitic vol]on 12-20-2023 Platelet mean volume (Bld) [Entitic vol] 10.5 fL 9.5-13.5 [facility] Platelets Auto (Bld) [#/Vol] on 12-20-2023 Platelets (Bld) [#/Vol] 275 10 3/uL 150-450 [facility] RBC Auto (Bld) [#/Vol]on RBC (Bld) [#/Vol] 3.99 10 6/uL Low 4.20-5.40 [facility] Serum or plasma albumin/glob ulin mass ratioon 12-20-2023 Albumin/Globulin [Mass ratio] 0.9 {ratio} [facility] Serum or plasma anion gap de terminationon 12-20-2023 Anion gap [Moles/Vol] 13.4 mmol/L Fi [facility] XR knee RT 2Von 11-19-2023 XR knee RT 2V [facility] [address] [place] [address] XRay Report Signed Patient: Ashley Brown MR#: [id number] 1 : 1940 Acct:[id number] Age/Sex: 82 / F ADM Date: 11/19/23 Loc: [facility] Room: Type: 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.1 - Aftercare following joint replacement surgery ([id number]) XR/XR knee RT 2V: Z47.1 - Aftercare following joint replacement surgery ([id number]) XR/XR knee LT 3V - NOT FOR ER USE: M25.562 - Pain in left knee ([id number]) XR/XR femur RT 2V*: Z47.1 - Aftercare [...] Jane Shepherd M.D.11/19/2023 3:36 PM Dictation Location: [place] [address] Transcribed By: [facility] 11/19/23 1536 Dictated By: Jane Shepherd MD 11/19/23 1527 Signed By: 11/19/23 1536 Normal [facility] 36on 11-17-2023 36 Patient called back and I explained Cele's message to her. She is agreeable to start Zetia and have repeat labs in 2-3 months. She verbalized understanding. Normal [facility] 36 Regarding lipid pane l result from 11/08/2023: ADRYAN Thomas MA Please let her know her bad cholesterol level, the LDL is above goal. She is at 80. Need to be less than 70, if can get below 55 even better. Recommend we start zetia 10mg daily since she cannot tolerate higher dose of statin and repeat lipids/LFTs in 2-3 months. Thanks! LM for patient asking her to return my call. Normal [facility] Orders Onlyon 11-17-2023 Orders Only [id number] Ashley Brown 1940 F Date Provider Department Center 11/17/2023 Tristin8-PETER FIGUEROA [facility] Family History Problem Relation Age of Onset Coronary artery disease Father Other Father Family Status - Relation Status Age at Father Normal [facility] Cholesterol in LDL Calc [Mas s/Vol]on 11-08-2023 Cholesterol in LDL [Mass/Vol] 80.0 mg/dL [facility] Comment on above: <100 mg/dl [id number] 0-129 mg/dl NEAR OR ABOVE [id number] mg/dl BORDERLINE [id number] mg/dl HIGH>190 mg/dl VERY HIGH Cholesterol in VLDL Calc [Ma ss/Vol]on 11-08-2023 Cholesterol in VLDL [Mass/Vol] 19.2 mg/dL [facility] Laboratory - Chemistry and C hemistry - challengeon 11-08-2023 Cholesterol [Mass/Vol] 184 mg/dL <=200 [facility] Cholesterol in HDL [Mass/Vol] 85 mg/dL 40-60 [facility] Comment on above: > or =60 mg/dl - LOW CARDIOVASCULAR RISK<40 mg/dl - HIGH CARDIOVASCULAR RISK Triglyceride [Mass/Vol] 96 mg/dL <=150 [facility] Serum or plasma total choles terol/high density lipoprotein (HDL) cholesterol mass marivel 11-08-2023 Cholesterol.total/Cho lesterol in HDL [Mass ratio] 2.2 {ratio} [facility] Comment on above: 3.3 - 4.4 LOW RISK4. 4 - 7.1 AVERAGE RISK7.1 - 11.0 MODERATE RISK>11.0 HIGH RISK Office Visiton 11-04-2023 Follow-up visit [id number] Ashley Brwon 1940 Date Provider Department Center 11/04/2023 Laurence-ODILIA MCCALLUM [facility] Family History Problem Relation Age of Onset Coronary artery disease Father Other Father Family Status - Relation Status Age at Father Level of Service:71835 [place] OFFICE/OUTPATIENT ESTABLISHED MOD MDM 30 MIN Normal [facility] XR knee RT 3V - NOT FOR ER U [place] 10-08-2023 XR knee RT 3V - NOT FOR ER USE [facility] [address] [place] [address] XRay Report Signed Patient: Ashley Brown MR#: [id number] 1 : 1940 Acct:[id number] Age/Sex: 82 / F ADM Date: 10/08/23 Loc: [facility] Room: Type: [facility] Attending Dr: Magno Pichardo II, MD Copies [...] Richard Oliver M.D.10/08/2023 2:15 PM Dictation Location: [place] [address] Transcribed By: [facility] 10/08/23 1415 Dictated By: Richard Oliver DO 10/08/23 1413 Signed By: 10/08/23 1415 Normal [facility] Alanine aminotransferase [En zymatic activity/volume] in Serum or PlasmaOrdered By: Heidi Mesa on 09-08-2023 ALT [Catalytic activity/Vol] 99 U/L High 7-52 [facility] Comment on above: Performed By: #### C BC, BMP #### [facility] [address] Albumin [Mass/volume] in Ser um or Plasma by Bromocresol green (BCG) dye binding methoOrdered By: Heidi Mesa on 09-08-2023 Albumin BCG dye [Mass/Vol] 3.4 g/dL 3.5-5.7 [facility] Alkaline phosphatase [Enzyma tic activity/volume] in Serum or PlasmaOrdered By: Heidi Mesa on 09-08-2023 ALP [Catalytic activity/Vol] 125 U/L High 34-104 [facility] Comment on above: Performed By: #### C BC, BMP #### [address] Aspartate aminotransferase [ Enzymatic activity/volume] in Serum or PlasmaOrdered By: Heidi Mesa on 09-08-2023 AST [Catalytic activity/Vol] 71 U/L High 13-39 [facility] Comment on above: Performed By: #### C BC, BMP #### [address] Automated basophil %Ordered By: Heidi Mesa on 09-08-2023 Basophils/100 WBC (Bld) 1.3 % Normal . [facility] Comment on above: Performed By: #### C BC, BMP #### [address] Automated basophil countOrde red By: Heidi Mesa on 09-08-2023 Basophils (Bld) [#/Vol] 0.1 10*3/uL Normal 0.0-0.2 [facility] Comment on above: Result Comment: PERF ORMED BY: [place] [address] PATHOLOGIST EVS ATTENDANT BUBBA MERIDA M.D. Performed By: #### C BC, BMP #### [address] Automated blood monocyte cou ntOrdered By: Heidi Mesa on 09-08-2023 Monocytes (Bld) [#/Vol] 0.7 10*3/uL Normal 0.0-0.8 [facility] Comment on above: Performed By: #### C BC, BMP #### [address] Automated eosinophil %Ordere d By: Heidi Mesa on 09-08-2023 Eosinophils/100 WBC (Bld) 4.0 % Normal . [facility] Comment on above: Performed By: #### C BC, BMP #### [address] Automated eosinophil countOr dered By: Heidi Mesa on 09-08-2023 Eosinophils (Bld) [#/Vol] 0.3 10*3/uL Normal 0.0-0.45 [facility] Comment on above: Performed By: #### C BC, BMP #### [address] Automated monocyte %Ordered By: Heidi Mesa on 09-08-2023 Monocytes/100 WBC (Bld) 9.5 % Normal . [facility] Comment on above: Performed By: #### C BC, BMP #### [address] Automated neutrophil %Ordere d By: Heidi Mesa on 09-08-2023 Neutrophils/100 WBC (Bld) 54.1 % Normal . [facility] Comment on above: Performed By: #### C BC, BMP #### [address] Basic Metabolic Panelon 08-28 Creatinine Clr Calc Pharmacy 36.34 Normal [facility] Comment on above: Result Comment: PERF ORMED BY: [place] [address] PATHOLOGIST EVS ATTENDANT BUBBA MERIDA M.D. Performed By: #### C BC, BMP #### [address] GFR/1.73 sq M.predicted MDRD (S/P/Bld) [Vol rate/Area] 52.511 mL/min/{1.73_m2} Normal [facility] Comment on above: Performed By: #### C BC, BMP #### [address] Bilirubin.total [Mass/volume ] in Serum or PlasmaOrdered By: Heidi Mesa on 09-08-2023 Bilirubin [Mass/Vol] 0.4 mg/dL Normal 0.3-1.0 [facility] Comment on above: Performed By: #### C BC, BMP #### [place] [address] [place] Calcium [Mass/volume] in Ser um or PlasmaOrdered By: Heidi Mesa on 09-08-2023 Calcium [Mass/Vol] 8.5 mg/dL Low 8.6-10.3 [facility] Comment on above: Performed By: #### C BC, BMP #### [address] Carbon dioxide, total [Moles /volume] in Serum or PlasmaOrdered By: Heidi Mesa on 09-08-2023 CO2 [Moles/Vol] 25.7 mmol/L Normal 21.0-31.0 [facility] Comment on above: Performed By: #### C BC, BMP #### [address] Chloride [Moles/volume] in S tejas or PlasmaOrdered By: Heidi Mesa on 09-08-2023 Chloride [Moles/Vol] 103 mmol/L Normal 98-107 [facility] Comment on above: Performed By: #### C BC, BMP #### [address] Complete Blood Count Auto Di ffon 09-08-2023 Mean Corpuscular HGB Conc 32.9 g/dL Normal 32.0-35.0 [facility] Comment on above: Performed By: #### C BC, BMP #### [address] NRBC% 0.1 /100{WBC} Normal 0-0.5 [facility] Comment on above: Performed By: #### C BC, BMP #### [address] Comprehensive Metabolic Pane elia 09-08-2023 Albumin [Mass/Vol] 3.4 g/dL Low 3.5-5.7 [facility] Comment on above: Performed By: #### C BC, BMP #### [address] Anion gap [Moles/Vol] 10.0 mmol/L Normal 6.0-15.0 [facility] Comment on above: Performed By: #### C BC, BMP #### [facility] [address] [place] [address] [place] Calcium [Mass/Vol] 8.9 mg/dL Normal 8.6-10.3 [facility] Comment on above: Performed By: #### C BC, BMP #### [facility] [address] [place] [address] [place] Chloride [Moles/Vol] 104 mmol/L Normal 98-107 [facility] Comment on above: Performed By: #### C BC, BMP #### [facility] [address] [place] [address] [place] CO2 [Moles/Vol] 27.4 mmol/L Normal 21.0-31.0 [facility] Comment on above: Performed By: #### C BC, BMP #### [place] [address] [place] Creatinine [Mass/Vol] 0.91 mg/dL Normal 0.60-1.20 [facility] Comment on above: Performed By: #### C BC, BMP #### [place] [address] [place] Creatinine Clr Calc Pharmacy 42.73 Normal [facility] Comment on above: Result Comment: PERF ORMED BY: [place] [address] PATHOLOGIST EVS ATTENDANT BUBBA MERIDA M.D. Performed By: #### C BC, BMP #### [address] GFR/1.73 sq M.predicted MDRD (S/P/Bld) [Vol rate/Area] mL/min/{1.73_m2} Normal [facility] Comment on above: Performed By: #### C BC, BMP #### [address] Glucose [Mass/Vol] 85 mg/dL Normal 70-100 [facility] Comment on above: Result Comment: Rock Glucose Reference Range is dependent on time and content of last meal. Glucose of more than 200 mg/dL in a nonstressed, ambulatory subject supports the diagnosis of Diabetes Mellitus. ADA recommended reference range Performed By: #### C BC, BMP #### [address] Potassium [Moles/Vol] 4.4 mmol/L Normal 3.5-5.1 [facility] Comment on above: Performed By: #### C BC, BMP #### [address] Sodium [Moles/Vol] 137 mmol/L Normal 136-145 [facility] Comment on above: Performed By: #### C BC, BMP #### [address] Urea nitrogen [Mass/Vol] 17 mg/dL Normal 7-25 [facility] Comment on above: Performed By: #### C BC, BMP #### [address] Creatinine [Mass/volume] in Serum or PlasmaOrdered By: Heidi Mesa on 09-08-2023 Creatinine [Mass/Vol] 1.07 mg/dL Normal 0.60-1.20 [facility] Comment on above: Performed By: #### C BC, BMP #### [address] Erythrocyte distribution wid th [Ratio] by Automated countOrdered By: Heidi Mesa on 09-08-2023 Erythrocyte distribution width (RBC) [Ratio] 14.0 % Normal 11.9-15.3 [facility] Comment on above: Performed By: #### C BC, BMP #### [place] [address] [place] Erythrocytes [#/volume] in B lood by Automated countOrdered By: Heidi Mesa on 09-08-2023 RBC (Bld) [#/Vol] 3.52 10*6/uL Low 3.60-5.00 [facility] Comment on above: Performed By: #### C BC, BMP #### [address] Glucose [Mass/volume] in Ser um or PlasmaOrdered By: Heidi Mesa on 09-08-2023 Glucose [Mass/Vol] 103 mg/dL High 70-100 [facility] Comment on above: ADA recommended refe rence rangeRandom Glucose Reference Range is dependent on time and content of last meal. Glucose of more than 200 mg/dL in a nonstressed, ambulatory subject supports the diagnosis of Diabetes Mellitus. Result Comment: Rock om Glucose Reference Range is dependent on time and content of last meal. Glucose of more than 200 mg/dL in a nonstressed, ambulatory subject supports the diagnosis of Diabetes Mellitus. ADA recommended reference range Performed By: #### C ABEL, BMP #### [address] Hematocrit [Volume Fraction] of Blood by Automated countOrdered By: Heidi Mesa on 09-08-2023 Hematocrit (Bld) [Volume fraction] 34.4 % Normal 34.0-46.4 [facility] Comment on above: Performed By: #### C BC, BMP #### [address] Hemoglobin [Mass/volume] in BloodOrdered By: Heidi Mesa on 09-08-2023 Hemoglobin (Bld) [Mass/Vol] 11.3 g/dL Low 11.8-15.4 [facility] Comment on above: Performed By: #### C ABEL, BMP #### [address] Leukocytes [#/volume] correc alvaro for nucleated erythrocytes in Blood by Automated counOrdered By: Heidi Mesa on 09-08-2023 WBC corrected for nucl RBC Auto (Bld) [#/Vol] 7.3 10*3/uL 3.8-11.6 [facility] Leukocytes [#/volume] in Blo od by Automated countOrdered By: Heidi Mesa on 09-08-2023 WBC (Bld) [#/Vol] 7.3 10*3/uL Normal 3.8-11.6 [facility] Comment on above: Performed By: #### C BC, BMP #### [address] Lymphocytes [#/volume] in Bl ood by Automated countOrdered By: Heidi Mesa on 09-08-2023 Lymphocytes (Bld) [#/Vol] 2.3 10*3/uL Normal 1.00-4.8 [facility] Comment on above: Performed By: #### C BC, BMP #### [address] Lymphocytes/100 leukocytes i n Blood by Automated countOrdered By: Heidi Mesa on 09-08-2023 Lymphocytes/100 WBC (Bld) 31.1 % Normal . [facility] Comment on above: Performed By: #### C BC, BMP #### [address] MCH [Entitic mass] by Automa alvaro countOrdered By: Heidi Mesa on 09-08-2023 MCH (RBC) [Entitic mass] 32.2 pg Normal 24.7-34.3 [facility] Comment on above: Performed By: #### C BC, BMP #### [address] MCHC Auto (RBC) [Mass/Vol]Or dered By: Heidi Mesa on 09-08-2023 MCHC (RBC) [Mass/Vol] 32.9 g/dL 32.0-35.0 [facility] MCV [Entitic volume] by Auto mated countOrdered By: Heidi Mesa on 09-08-2023 MCV (RBC) [Entitic vol] 97.7 fL Normal 80-100 [facility] Comment on above: Performed By: #### C BC, BMP #### [address] Neutrophils [#/volume] in Bl ood by Automated countOrdered By: Heidi Mesa on 09-08-2023 Neutrophils (Bld) [#/Vol] 4.0 10*3/uL Normal 1.8-7.7 [facility] Comment on above: Performed By: #### C BC, BMP #### [facility] [address] No Panel InformationOrdered By: Heidi Mesa on 09-08-2023 Estimated GFR (CKD-EPI) 52.511 mL/Min [facility] Creatinine Clearance (Chem 36.34 [facility] Nucleated erythrocytes [Pres ence] in Blood by Automated countOrdered By: Heidi Mesa on 09-08-2023 Nucleated RBC Auto Ql (Bld) 0.1 /100{WBC} 0-0.5 [facility] Platelet mean volume [Entiti c volume] in Blood by Automated countOrdered By: Heidi Mesa on 09-08-2023 Platelet mean volume (Bld) [Entitic vol] 8.0 fL Normal 6.3-10.7 [facility] Comment on above: Performed By: #### C BC, BMP #### [address] Platelets [#/volume] in Bloo d by Automated countOrdered By: Heidi Mesa on 09-08-2023 Platelets (Bld) [#/Vol] 419 10*3/uL Normal 150-450 [facility] Comment on above: Performed By: #### C BC, BMP #### [address] Potassium [Moles/volume] in Serum or PlasmaOrdered By: Heidi Mesa on 09-08-2023 Potassium [Moles/Vol] 3.6 mmol/L Normal 3.5-5.1 [facility] Comment on above: Performed By: #### C BC, BMP #### [place] [address] [place] Protein [Mass/volume] in Ser um or PlasmaOrdered By: Heidi Mesa on 09-08-2023 Protein [Mass/Vol] 6.3 g/dL Low 6.4-8.9 [facility] Comment on above: Performed By: #### C BC, BMP #### [address] Serum globulin measurement b y calculation (mass/volume)Ordered By: Heidi Mesa on 09-08-2023 Globulin (S) [Mass/Vol] 2.9 g/dL Normal [facility] Comment on above: Performed By: #### C BC, BMP #### [address] Serum or plasma albumin/glob ulin mass ratioOrdered By: Heidi Mesa on 09-08-2023 Albumin/Globulin [Mass ratio] 1.2 {ratio} [facility] Comment on above: Performed By: #### C BC, BMP #### [address] Serum or plasma anion gap de terminationOrdered By: Heidi Mesa on 09-08-2023 Anion gap [Moles/Vol] 10.9 mmol/L Normal 6.0-15.0 [facility] Comment on above: Performed By: #### C BC, BMP #### [address] Sodium [Moles/volume] in Ser um or PlasmaOrdered By: Heidi Mesa on 09-08-2023 Sodium [Moles/Vol] 136 mmol/L Normal 136-145 [facility] Comment on above: Performed By: #### C BC, BMP #### [address] Urea nitrogen [Mass/volume] in Serum or PlasmaOrdered By: Heidi Mesa on 09-08-2023 Urea nitrogen [Mass/Vol] 20 mg/dL Normal 7-25 [facility] Comment on above: Performed By: #### C BC, BMP #### [address] Bilirubin.direct [Mass/volum e] in Serum or PlasmaOrdered By: Carol Holland on 09-07-2023 Bilirubin.direct [Mass/Vol] 0.10 mg/dL 0.03-0.18 [facility] Hepatic Panelon 09-07-2023 Albumin [Mass/Vol] 3.7 g/dL Normal 3.5-5.7 [facility] Comment on above: Performed By: #### H EPATIC #### [address] Albumin/Globulin [Mass ratio] 1.2 {ratio} Normal [facility] Comment on above: Performed By: #### H EPATIC #### [address] ALP [Catalytic activity/Vol] 128 U/L High 34-104 [facility] Comment on above: Result Comment: PERF ORMED BY: [place] [address] PATHOLOGIST EVS ATTENDANT BUBBA MERIDA M.D. Performed By: #### H EPATIC #### [address] ALT [Catalytic activity/Vol] 126 U/L High 7-52 [facility] Comment on above: Performed By: #### H EPATIC #### [address] AST [Catalytic activity/Vol] 115 U/L High 13-39 [facility] Comment on above: Performed By: #### H EPATIC #### [address] Bilirubin [Mass/Vol] 0.5 mg/dL Normal 0.3-1.0 [facility] Comment on above: Performed By: #### H EPATIC #### [address] Bilirubin,Indirect 0.4 mg/dL Normal [facility] Comment on above: Performed By: #### H EPATIC #### [address] Bilirubin.indirect [Mass/Vol] 0.10 mg/dL Normal 0.03-0.18 [facility] Comment on above: Performed By: #### H EPATIC #### [address] Globulin (S) [Mass/Vol] 3.2 g/dL Normal [facility] Comment on above: Performed By: #### H EPATIC #### [facility] [address] Protein [Mass/Vol] 6.9 g/dL Normal 6.4-8.9 [facility] Comment on above: Performed By: #### H EPATIC #### [facility] [address] [place] [address] Serum or plasma non-glucuron idated bilirubin measurement (mass/volume)Ordered By: Carol Holland on 09-07-2023 Bilirubin.indirect [Mass/Vol] 0.4 mg/dL [facility] US venous duplex LE RTon US venous duplex LE RT [facility] [place] [address] [place] [address] Ultrasound Report Signed Patient: Ashley Brown MR#: [id number] 1 : 1940 Acct:[id number] Age/Sex: 82 / F ADM Date: 09/02/23 Loc: Room: [address] [place] [address] Type: ADM IN Attending Dr: Elijah Mayers MD Ordering Provider: Heidi Mesa APRN Date of Service: 09/05/23 US/US venous duplex LE RT: postop, swelling, pain Copies to: MD Heidi Gonzalez, CHASITY RIGHT LOWER EXTREMITY VENOUS DUPLEX INDICATION: Painful [...] Richard Cochran M.D.09/06/2023 9:29 AM Dictation Location: [place] [address] Tech: Yuridia Roth Transcribed By: JESUSITA 09/06/23928 Dictated By: Richard Cochran MD 09/06/23927 Signed By: 09/06/23928 Normal [facility] Prealbumin [Mass/volume] in Serum or PlasmaOrdered By: Elijah Mayers on 09-03-2023 Prealbumin [Mass/Vol] 15.7 mg/dL 17.0-34.0 [facility] Automated erythrocytes count in urine sediment (number/area)Ordered By: Magno Pichardo on 08-20-2023 RBC Auto (Urine sed) [#/Area] 0-1 [HPF] 0-4 [facility] Automated leukocytes count i n urine sediment (number/area)Ordered By: Magno Pichardo on 08-20-2023 WBC Auto (Urine sed) [#/Area] 10-19 [HPF] 0-4 [facility] Basophils Auto (Bld) [#/Vol] Ordered By: Magno Pichardo on 08-20-2023 Basophils (Bld) [#/Vol] 0.1 10*3/uL 0.0-0.2 [facility] Basophils/100 WBC Auto (Bld) Ordered By: Magno Pichardo on 08-20-2023 Basophils/100 WBC (Bld) 1.1 % . [facility] Bilirubin Test strip Ql (U)O rdered By: Magno Pichardo on 08-20-2023 Bilirubin Ql (U) Negative Negative [facility] Calcium [Mass/volume] in Ser um or PlasmaOrdered By: Magno Pichardo on 08-20-2023 Calcium [Mass/Vol] 9.7 mg/dL 8.6-10.3 [facility] Carbon dioxide, total [Moles /volume] in Serum or PlasmaOrdered By: Magno Pichardo on 08-20-2023 CO2 [Moles/Vol] 26.3 mmol/L 21.0-31.0 [facility] Chloride [Moles/volume] in S tejas or PlasmaOrdered By: Magno Pichardo on 08-20-2023 Chloride [Moles/Vol] 104 mmol/L 98-107 [facility] Color Auto (U)Ordered By: Suri Pichardo on 08-20-2023 Color (U) Yellow Yellow [facility] Creatinine [Mass/volume] in Serum or PlasmaOrdered By: Magno Pichardo on 08-20-2023 Creatinine [Mass/Vol] 0.88 mg/dL 0.60-1.20 [facility] Eosinophils Auto (Bld) [#/Vo l]Ordered By: Magno Pichardo on 08-20-2023 Eosinophils (Bld) [#/Vol] 0.2 10*3/uL 0.0-0.45 [facility] Eosinophils/100 WBC Auto (Bl d)Ordered By: Magno Pichardo on 08-20-2023 Eosinophils/100 WBC (Bld) 3.5 % . [facility] Erythrocyte distribution wid th Auto (RBC) [Ratio]Ordered By: Magno Pichardo on 08-20-2023 Erythrocyte distribution width (RBC) [Ratio] 14.3 % 11.9-15.3 [facility] Fructosamine [Moles/volume] in Serum or PlasmaOrdered By: Magno Pichardo on 08-20-2023 Fructosamine [Moles/Vol] 210 umol/L 0-285 [facility] Comment on above: Published reference interval for apparently healthysubjects between age 20 and 60 is 205 - 285 umol/L and in apoorly controlled diabetic population is 228 - 563 umol/Lwith a mean of 396 umol/L.Performed at: - [facility] [id number] Director: Federico Guzman PhD, Phone: [phone] Glucose [Mass/volume] in Ser um or PlasmaOrdered By: Magno Pichardo on 08-20-2023 Glucose [Mass/Vol] 81 mg/dL 70-100 [facility] [place] [facility] Comment on above: ADA recommended refe rence rangeRandom Glucose Reference Range is dependent on time and content of last meal. Glucose of more than 200 mg/dL in a nonstressed, ambulatory subject supports the diagnosis of Diabetes Mellitus. Hematocrit Auto (Bld) [Volum e fraction]Ordered By: Mgano Pichardo on 08-20-2023 Hematocrit (Bld) [Volume fraction] 39.8 % 34.0-46.4 [facility] Hemoglobin [Mass/volume] in BloodOrdered By: Magno Pichardo on 08-20-2023 Hemoglobin (Bld) [Mass/Vol] 13.5 g/dL 11.8-15.4 [facility] Ketones Auto test strip (U) [Mass/Vol]Ordered By: Magno Pichardo on 08-20-2023 Ketones (U) [Mass/Vol] Negative Negative [facility] - UrinalysisOrder ed By: Magno Pichardo on 08-20-2023 Hyaline casts LM Ql (Urine sed) None seen [LPF] 0-8 [facility] Leukocytes [#/volume] correc alvaro for nucleated erythrocytes in Blood by Automated counOrdered By: Magno Pichardo on 08-20-2023 WBC corrected for nucl RBC Auto (Bld) [#/Vol] 6.6 10*3/uL 3.8-11.6 [facility] Lymphocytes Auto (Bld) [#/Vo l]Ordered By: Magno Pichardo on 08-20-2023 Lymphocytes (Bld) [#/Vol] 1.3 10*3/uL 1.00-4.8 [facility] Lymphocytes/100 WBC Auto (Bl d)Ordered By: Magno Pichardo on 08-20-2023 Lymphocytes/100 WBC (Bld) 20.0 % . [facility] MCH Auto (RBC) [Entitic mass ]Ordered By: Magno Pichardo on 08-20-2023 MCH (RBC) [Entitic mass] 33.2 pg 24.7-34.3 [facility] MCHC Auto (RBC) [Mass/Vol]Or dered By: Magno Pichardo on 08-20-2023 MCHC (RBC) [Mass/Vol] 34.1 g/dL 32.0-35.0 [facility] MCV Auto (RBC) [Entitic vol] Ordered By: Magno Pichardo on 08-20-2023 MCV (RBC) [Entitic vol] 97.4 fL 80-100 [facility] Monocytes Auto (Bld) [#/Vol] Ordered By: Magno Pichardo on 08-20-2023 Monocytes (Bld) [#/Vol] 0.6 10*3/uL 0.0-0.8 [facility] Monocytes/100 WBC Auto (Bld) Ordered By: Magno Pichardo on 08-20-2023 Monocytes/100 WBC (Bld) 9.3 % . [facility] Neutrophils Auto (Bld) [#/Vo l]Ordered By: Magno Pichardo on 08-20-2023 Neutrophils (Bld) [#/Vol] 4.4 10*3/uL 1.8-7.7 [facility] Neutrophils/100 WBC Auto (Bl d)Ordered By: Magno Pichardo on 08-20-2023 Neutrophils/100 WBC (Bld) 66.1 % . [facility] Nitrite Test strip Ql (U)Ord ered By: Magno Pichardo on 08-20-2023 Nitrite Ql (U) Negative Negative [facility] No Panel InformationOrdered By: Magno Pichardo on 08-20-2023 Estimated GFR (CKD-EPI) > 60.0 mL/Min [facility] Creatinine Clearance (Chem N/A [facility] Nucleated erythrocytes [Pres ence] in Blood by Automated countOrdered By: Magno Pichardo on 08-20-2023 Nucleated RBC Auto Ql (Bld) 0.1 /100{WBC} 0-0.5 [facility] Platelet mean volume Auto (B ld) [Entitic vol]Ordered By: Magno Pichardo on 08-20-2023 Platelet mean volume (Bld) [Entitic vol] 8.4 fL 6.3-10.7 [facility] Platelets Auto (Bld) [#/Vol] Ordered By: Magno Pichardo on 08-20-2023 Platelets (Bld) [#/Vol] 326 10*3/uL 150-450 [facility] Potassium [Moles/volume] in Serum or PlasmaOrdered By: Magno Pichardo on 08-20-2023 Potassium [Moles/Vol] 3.9 mmol/L 3.5-5.1 [facility] Protein Auto test strip (U) [Mass/Vol]Ordered By: Magno Pichardo on 08-20-2023 Protein (U) [Mass/Vol] Negative Negative [facility] RBC Auto (Bld) [#/Vol]Ordere d By: Magno Pichardo on 08-20-2023 RBC (Bld) [#/Vol] 4.08 10*6/uL 3.60-5.00 [facility] Serum or plasma anion gap de terminationOrdered By: Magno Pichardo on 08-20-2023 Anion gap [Moles/Vol] 10.6 mmol/L 6.0-15.0 [facility] Sodium [Moles/volume] in Ser um or PlasmaOrdered By: Magno iPchardo on 08-20-2023 Sodium [Moles/Vol] 137 mmol/L 136-145 [facility] [place] [facility] Specific gravity Auto test s trip (U) [Rel density]Ordered By: Magno Pichardo on 08-20-2023 Specific gravity (U) [Rel density] 1.008 1.001-1.03 0 [facility] Squamous epithelial cells de tection in urine sediment by light microscopyOrdered By: Magno Pichardo on 08-20-2023 Epithelial cells.squamous LM Ql (Urine sed) 0-1 [HPF] 0-2 [facility] Urea nitrogen [Mass/volume] in Serum or PlasmaOrdered By: Magno Pichardo on 08-20-2023 Urea nitrogen [Mass/Vol] 19 mg/dL 7-25 [facility] Urine bacteria detection by automated methodOrdered By: Magno Pichardo on 08-20-2023 Bacteria Auto Ql (U) None seen None Seen [facility] Urine clarity by refractomet ry automatedOrdered By: Magno Pichardo on 08-20-2023 Clarity Refractometry automated (U) Clear Clear [facility] Urine culture routineOrdered By: Magno Pichardo on 08-20-2023 Bacteria identified Cx Nom (U) bacilli - 2 Days [facility] Urine glucose measurement by automated test strip (mass/volume)Ordered By: Magno Pichardo on 08-20-2023 Glucose Auto test strip (U) [Mass/Vol] Normal mg/dL Normal [facility] Urine hemoglobin detection b y automated test stripOrdered By: Magno Pichardo on 08-20-2023 Hemoglobin Auto test strip Ql (U) Negative Negative [facility] Urine leukocyte esterase det ection by automated test stripOrdered By: Magno Pichardo on 08-20-2023 Leukocyte esterase Auto test strip Ql (U) 3+ Negative [facility] Urobilinogen Auto test strip (U) [Mass/Vol]Ordered By: Magno Pichardo on 08-20-2023 Urobilinogen (U) [Mass/Vol] Normal mg/dL Normal [facility] WBC Auto (Bld) [#/Vol]Ordere d By: Magno Pichardo on 08-20-2023 WBC (Bld) [#/Vol] 6.6 10*3/uL 3.8-11.6 [facility] [place] [facility] pH Auto test strip (U)Ordere d By: Magno Pichardo on 08-20-2023 pH (U) 6.0 [pH] 5.0-9.0 [facility] B-Type Natriuretic Peptideon 08-01-2023 B-Type Natriuretic Peptide 949.0 pg/mL <=1800.0 pg/mL [facility] Other Basic Metabolic Panelon Anion gap [Moles/Vol] 12.0 mmol/L No rt [facility] Calcium [Mass/Vol] 9.9872900 mg/dL Normal 8.5-10 .1 mg/dL [facility] Other Chloride [Moles/Vol] 101 mmol/L Normal 98-107 mmol/L [facility] Other CO2 [Moles/Vol] 26.50405703 mmol/L Normal 21.0-3 2.0 mmol/L [facility] Other Creatinine [Mass/Vol] 0.35356829 mg/dL Normal 0. 55-1.02 mg/dL [facility] Other Glucose [Mass/Vol] 86 mg/dL Normal 74-106 mg/dL [facility] Other Potassium [Moles/Vol] 3.03013786 mmol/L Normal 3 .5-5.1 mmol/L [facility] Other Sodium [Moles/Vol] 136 mmol/L Normal 136-145 mmol/L [facility] Other Urea nitrogen [Mass/Vol] 16.9615672 mg/dL Normal 7.0-18.0 mg/dL [facility] Other Urea nitrogen/Creatinine [Mass ratio] 17.2 mg/mg [place] [facility] Other Basic Metabolic Panel see note [facility] Other Basic Metabolic Panel 58 Low >=60 [facility] Other Basic Metabolic Panel >60 >=60 [facility] Other Albumin [Mass/volume] in Ser um or Plasma by Bromocresol green (BCG) dye binding methoOrdered By: Magno Pichardo on 07-23-2023 Albumin BCG dye [Mass/Vol] 4.1 g/dL 3.5-5.7 [facility] Cotinine [Mass/volume] in Se rum or PlasmaOrdered By: Magno Pichardo on 07-23-2023 Cotinine [Mass/Vol] <1.0 ng/mL . [facility] Comment on above: This test was develo ped and its performance characteristicsdetermined by [employer]. It has not been cleared orapproved by the Food and Drug Administration.Cotinine levels greater than 20.0 are consistent with theuse of tobacco or tobacco cessation products.Performed at: [facility] [id number] Director: Amilcar Baltazar MD, Phone: [phone] Glucose mean value [Mass/vol ume] in Blood Estimated from glycated hemoglobinOrdered By: Magno Pichardo on 07-23-2023 Average glucose Estimated from glycated hemoglobin (Bld) [Mass/Vol] 111 mg/dL [facility] Hemoglobin A1c percentageOrd ered By: Magno Pichardo on 07-23-2023 HbA1c (Bld) [Mass fraction] 5.5 % 4.3-5.6 [facility] Comment on above: Increased risk for d iabetes: 5.7 - 6.4diabetes: >6.4glycemic control for adults with diabetes: <7.0 Hemoglobin [Mass/volume] in BloodOrdered By: Magno Pichardo on 07-23-2023 Hemoglobin (Bld) [Mass/Vol] 13.4 g/dL 11.8-15.4 [facility] Nicotine [Mass/volume] in Se rum or PlasmaOrdered By: Magno Pichardo on 07-23-2023 Nicotine [Mass/Vol] <1.0 ng/mL . [facility] Comment on above: This test was develo ped and its performance characteristicsdetermined by [employer]. It has not been cleared orapproved by the Food and Drug Administration.Nicotine levels greater than 2.0 are consistent with theuse of tobacco or tobacco cessation products. Vitamin D+Metabolites [Mass/ volume] in Serum or PlasmaOrdered By: Magno Pichardo on 07-23-2023 Vitamin D+Metabolites [Mass/Vol] 45.5 ng/mL 30-100 [facility] Comment on above: VITAMIN D STATUS [...] (Unsp spec) No MRSA Isolated 2 Days [facility] MRSA isol Org specific cx Ql (Unsp spec) No MRSA Isolated 2 Days [facility] CBC AUTO DIFFon 10-31-2022 BASO # 0.1 103/ul Normal 0.0-0.1 [facility] Comment on above: Performed By: #### C BC #### [facility] [address] [address] [address] Charan Ariza Basophils/100 WBC (Bld) 1.7 % Normal 0.2-2.0 [facility] Comment on above: Performed By: #### C BC #### [facility] [address] [address] [address] Charan Ariza EO # 0.3 103/ul Normal 0.0-0.7 [facility] Comment on above: Performed By: #### C BC #### [facility] [address] [place] [address] Dr. Charan Ariza Eosinophils/100 WBC (Bld) 6.0 % Normal 0.9-7.0 [facility] Comment on above: Performed By: #### C BC #### [facility] [address] [place] [address] Dr. Charan Ariza Erythrocyte distribution width (RBC) [Ratio] 12.5 % Normal 11.0-15.0 [facility] Comment on above: Performed By: #### C BC #### [facility] [address] [place] [address] Dr. Charan Ariza Hematocrit (Bld) [Volume fraction] 42.6 % Normal 36.0-48.0 [facility] Comment on above: Performed By: #### C BC #### [facility] [address] [place] [address] Dr. Charan Ariza Hemoglobin (Bld) [Mass/Vol] 13.7 g/dL Normal 12.0-16.0 [facility] Comment on above: Performed By: #### C BC #### [facility] [address] [place] [address] Dr. Charan Ariza IG # 0.01 10e3/ul Normal 0.00-0.03 [facility] Comment on above: Performed By: #### C BC #### [facility] [address] [place] [address] Dr. Charan Ariza IG % 0.2 % Normal 0.0-0.5 [facility] Comment on above: Performed By: #### C BC #### [facility] [address] [place] [address] Dr. Charan Ariza LYMPH # 1.5 103/ul Normal 1.2-3.8 [facility] Comment on above: Performed By: #### C BC #### [facility] [address] [place] [address] Dr. Charan Ariza Lymphocytes/100 WBC (Bld) 28.9 % Normal 20.5-60.0 [facility] Comment on above: Performed By: #### C BC #### [facility] [address] [place] [address] Dr. Charan Ariza MANUAL DIFF REQ NO Normal [facility] Comment on above: Performed By: #### C BC #### [facility] [address] [place] [address] Dr. Charan Ariza MCH (RBC) [Entitic mass] 31.9 pg Normal 26.7-34.0 [facility] Comment on above: Performed By: #### C BC #### [facility] [address] [place] [address] Dr. Charan Ariza MCHC (RBC) [Mass/Vol] 32.2 g/dL Normal 29.9-35.2 [facility] Comment on above: Performed By: #### C BC #### [facility] [address] [place] [address] Dr. Charan Ariza MCV (RBC) [Entitic vol] 99.3 fL Critically high 81.0-99.0 [facility] Comment on above: Performed By: #### C BC #### [facility] [address] [place] [address] Dr. Charan Ariza MONO # 0.4 103/ul Normal 0.3-0.8 [facility] Comment on above: Performed By: #### C BC #### [facility] [address] [place] [address] Dr. Charan Ariza Monocytes/100 WBC (Bld) 7.8 % Normal 1.7-12.0 [facility] Comment on above: Performed By: #### C BC #### [facility] [address] [place] [address] Dr. Charan Ariza NEUT # 2.9 103/ul Normal 1.4-6.5 [facility] Comment on above: Performed By: #### C BC #### [facility] [address] [place] [address] Dr. Charan Ariza Neutrophils/100 WBC (Bld) 55.4 % Normal 43.0-75.0 [facility] Comment on above: Performed By: #### C BC #### [facility] [address] [address] [address] Charan Ariza Platelet mean volume (Bld) [Entitic vol] 10.4 fL Normal 9.5-13.5 [facility] Comment on above: Performed By: #### C BC #### [facility] [address] [place] [address] Dr. Charan Ariza PLT 326 103/ul Normal 150-450 [facility] Comment on above: Performed By: #### C BC #### [facility] [address] [place] [address] Dr. Charan Ariza RBC 4.29 106/ul Normal 4.20-5.40 [facility] Comment on above: Performed By: #### C BC #### [facility] [address] [place] [address] Dr. Charan Ariza WBC 5.3 103/ul Normal 4.0-11.0 [facility] Comment on above: Performed By: #### C BC #### [facility] [address] [place] [address] Dr. Charan Ariza LIPID PROFILEon 10-31-2022 CHOL-HDL RATIO NORM SEE BELOW Normal [facility] Comment on above: Result Comment: 3.3 - 4.4 LOW RISK 4.4 - 7.1 AVERAGE RISK 7.1 - 11.0 MODERATE RISK >11.0 HIGH RISK Performed By: #### A LT, BMP, LIPID #### [facility] [address] [place] [address] Dr. Charan Ariza Cholesterol [Mass/Vol] 180 mg/dL Normal <=200 [facility] Comment on above: Performed By: #### A LT, BMP, LIPID #### [facility] [address] [place] [address] Dr. Charan Ariza Cholesterol in HDL [Mass/Vol] 75 mg/dL Critically high 40-60 [facility] Comment on above: Performed By: #### A LT, BMP, LIPID #### [facility] [address] [place] [address] Dr. Cahran Ariza Cholesterol in LDL [Mass/Vol] 77.4 mg/dL Normal [facility] Comment on above: Performed By: #### A LT, BMP, LIPID #### [facility] [address] [address] [address] Charan Ariza Cholesterol.total/Cho lesterol in HDL [Mass ratio] 2.4 {ratio} Normal [facility] Comment on above: Performed By: #### A LT, BMP, LIPID #### [facility] [address] [address] [address] Charan Ariza HDL NORMAL > or = 60 mg/dl - LO W CARDIOVASCULAR RISK <40 mg/dl - HIGH CARDIOVASCULAR RISK Normal [facility] Comment on above: Performed By: #### A LT, BMP, LIPID #### [facility] [address] [place] [address] Dr. Charan Arzia LDL CALC NORMAL SEE BELOW Normal [facility] Comment on above: Result Comment: <100 mg/dl OPTIMAL 100 - 129 mg/dl NEAR OR ABOVE OPTIMAL 130 - 159 mg/dl BORDERLINE HIGH 160 - 189 mg/dl HIGH >190 mg/dl VERY HIGH Performed By: #### A LT, BMP, LIPID #### [facility] [address] [address] [address] Charan Ariza Triglyceride [Mass/Vol] 138 mg/dL Normal <=150 [facility] Comment on above: Performed By: #### A LT, BMP, LIPID #### [facility] [address] [address] [address] Charan Ariza VLDL CALC 27.6 mg/dL Normal [facility] Comment on above: Performed By: #### A LT, BMP, LIPID #### [facility] [address] [address] [address] Charan Ariza NM STRESS/REST MULTIon 10-31 NM STRESS/REST MULTI Patient: KEVIN BROWNCortez Exam Date: 10/31/2022 : 1940 Gender:F Ordering : DR ODELL HARRINGTON D.O. Admission #: [id number] Family : Order #: [id number] CLICK HERE TO VIEW EXAM RADIOLOGY REPORT [...] Fournier MD on 10/31/2022 at 14:41 Normal [facility] PROF CHEM 8 (BAS METB)on Anion gap [Moles/Vol] 13.8 mmol/L Normal [facility] Comment on above: Performed By: #### A LT, BMP, LIPID #### [facility] [address] [place] [address] Dr. Charan Ariza Calcium [Mass/Vol] 9.2 mg/dL Normal 8.5-10.1 [facility] Comment on above: Performed By: #### A LT, BMP, LIPID #### [facility] [address] [place] [address] Dr. Charan Ariza Chloride [Moles/Vol] 105 mmol/L Normal 98-107 [facility] Comment on above: Performed By: #### A LT, BMP, LIPID #### [facility] [address] [place] [address] Dr. Charan Ariza CO2 [Moles/Vol] 25.4 mmol/L Normal 21.0-32.[address] [facility] Comment on above: Performed By: #### A LT, BMP, LIPID #### [facility] [address] [address] [address] Charan Ariza Creatinine [Mass/Vol] 0.95 mg/dL Normal 0.55-1.02 [facility] Comment on above: Performed By: #### A LT, BMP, LIPID #### [facility] [address] [address] [address] Charan Ariza EGFR-AF THAI >60 Normal >=[address] [facility] Comment on above: Performed By: #### A LT, BMP, LIPID #### [facility] [address] [address] [address] Charan Ariza EGFR-NON AF THAI 57 mL/min/1.73m2 Critically low >=60 [facility] Comment on above: Performed By: #### A LT, BMP, LIPID #### [facility] [address] [address] [address] Charan Ariza Glucose [Mass/Vol] 93 mg/dL Normal 74-106 [facility] Comment on above: Performed By: #### A LT, BMP, LIPID #### [facility] [address] [place] [address] Dr. Charan Ariza Potassium [Moles/Vol] 4.2 mmol/L Normal 3.5-5.1 [facility] Comment on above: Performed By: #### A LT, BMP, LIPID #### [facility] [address] [place] [address] Dr. Charan Ariza Sodium [Moles/Vol] 140 mmol/L Normal 136-145 [facility] Comment on above: Performed By: #### A LT, BMP, LIPID #### [facility] [address] [place] [address] Dr. Charan Ariza Urea nitrogen [Mass/Vol] 19.0 mg/dL Critically high 7.0-18.0 [facility] Comment on above: Performed By: #### A LT, BMP, LIPID #### [facility] [address] [place], [place] [address] Dr. Charan Ariza Urea nitrogen/Creatinine [Mass ratio] 20.0 mg/mg Normal [facility] Comment on above: Performed By: #### A LT, BMP, LIPID #### [facility] [address] [place], [place] [address] Dr. Charan Ariza SGPTon 10-31-2022 ALT [Catalytic activity/Vol] 29 U/L Normal 14-59 [facility] Comment on above: Performed By: #### A LT, BMP, LIPID #### [facility] [address] [place], [place] [address] Dr. Charan Ariza ECHOCARDIO M/2D COMPLETEon 1 07-08-2021 ECHOCARDIO M/2D COMPLETE Patient: ASHLEY BROWN Exam Date: 05/08/2022 : 1940 Gender:F Ordering : DR JEREMIAS MCGUIRE M.D. Admission #: [id number] Family : DR ODELL HARRINGTON D.O. Order #: [id number] CLICK HERE TO VIEW EXAM ECHOCARDIOGRAM REPORT [...] Mcguire M.D. on 05/08/2022 at 18:26 Normal [facility] XR LSPINE 2_3 VIEWSon 2021 XR [...] by: TARIK MONROE Date: 2022-01-25 17:51 Normal [facility] CHEST AND LATERALon 03-20-20 21 CHEST AND LATERAL [facility] Department of Radiology [address] [place] [id number] Patient Name: ASHLEY BROWN : 1940 Sex: F Age: Race: White Pt. Location: Patient Status: D Ordered Date: 03/20/2021 3:00:00 PM Completed Date: 03/20/2021 03:07 PM Requesting Provider: MANAS GAR Attending Provider: MANAS GAR Report Copy To: ODELL HARRINTGON Signs & Symptoms: R07.9 Chest pain, unspecified [...] above Electronically signed: Lashonda Traore. Transcribed by: [email or web address], User Resident: Electronically Signed by: LASHONDA TRAORE @ 03/21/2021 09:38 AM Normal [facility] Comment on above: Order Comment: evalu ate Vital Signs Date Time Vital Sign Value Performing Clinician Facility 11-11-2024 14:00-0400 Body height 149.9 cm Hiro Brown DPM Work Phone: [facility] 11-11-2024 14:00-0400 Body mass index (BMI) [Ratio] 30.7 kg/m2 Hiro Brown DPM Work Phone: [facility] 11-11-2024 14:00-0400 Body weight 68.95 kg Hiro Brown DPM Work Phone: [facility] 11-11-2024 14:00-0400 Respiratory rate 16 /min Hiro Brown DPM Work Phone: [facility] 08-26-2024 13:58-0500 Body height 149.9 cm Hiro Brown DPM Work Phone: [facility] 08-26-2024 13:58-0500 Body mass index (BMI) [Ratio] 30.7 kg/m2 Hiro Brown DPM Work Phone: [facility] 08-26-2024 13:58-0500 Body weight 68.95 kg Hiro Brown DPM Work Phone: [facility] 08-26-2024 13:58-0500 Respiratory rate 18 /min Hiro Henry DPM Work Phone: [facility] 08-16-2024 13:41-0500 Body height 147.32 cm Odell Ball DO Work Phone: [facility] 08-16-2024 13:41-0500 Body mass index (BMI) [Ratio] 29.7 kg/m2 Odell Ball DO Work Phone: [facility] 08-16-2024 13:41-0500 Body weight 64.46 kg Odell Ball DO Work Phone: [facility] 08-16-2024 13:41-0500 Diastolic blood pressure 80 mm[Hg] Odell Ball DO Work Phone: [facility] 08-16-2024 13:41-0500 Heart rate 69 /min Odell Ball DO Work Phone: [facility] 08-16-2024 13:41-0500 Respiratory rate 12 /min Odell Ball DO Work Phone: [facility] 08-16-2024 13:41-0500 Systolic blood pressure 125 mm[Hg] Odell Ball DO Work Phone: [facility] 08-02-2024 05:00-0500 Body temperature 97.8 [degF] Odell Ball DO Work Phone: [facility] 08-02-2024 05:00-0500 Diastolic blood pressure 77 mm[Hg] Odell Ball DO Work Phone: [facility] 08-02-2024 05:00-0500 Heart rate 58 /min Odell Ball DO Work Phone: [facility] 08-02-2024 05:00-0500 Respiratory rate 14 /min Odell Ball DO Work Phone: [facility] 08-02-2024 05:00-0500 SaO2% (BldA) [Mass fraction] 97 % Odell Ball DO Work Phone: [facility] 08-02-2024 05:00-0500 Systolic blood pressure 155 mm[Hg] Odell Ball DO Work Phone: [facility] 08-01-2024 05:50-0500 Body weight 67 kg Odell Ball DO Work Phone: [facility] 07-20-2024 17:36-0500 Body height 147.32 cm Odell Ball DO Work Phone: [facility] 07-20-2024 15:53-0500 Body temperature 98 [degF] Odell Ball DO Work Phone: [facility] 07-20-2024 15:53-0500 Diastolic blood pressure 68 mm[Hg] Odell Ball DO Work Phone: [facility] 07-20-2024 15:53-0500 Heart rate 63 /min Odell Ball DO Work Phone: [facility] 07-20-2024 15:53-0500 Respiratory rate 17 /min Odell Ball DO Work Phone: [facility] 07-20-2024 15:53-0500 SaO2% (BldA) [Mass fraction] 98 % Odell Ball DO Work Phone: [facility] 07-20-2024 15:53-0500 Systolic blood pressure 172 mm[Hg] Odell Ball DO Work Phone: [facility] 07-19-2024 12:10-0500 Inhaled oxygen flow rate 8 L/min Odell Ball DO Work Phone: [facility] 07-19-2024 08:42-0500 Body height 147.32 cm Odell Ball DO Work Phone: [facility] 07-19-2024 08:42-0500 Body weight 65.77 kg Odell Ball DO Work Phone: [facility] 06-24-2024 09:46-0500 Body height 142.24 cm Odell Ball DO Work Phone: [facility] 06-24-2024 09:46-0500 Body mass index (BMI) [Ratio] 32.5 kg/m2 Odell Ball DO Work Phone: [facility] 06-24-2024 09:46-0500 Body weight 65.94 kg Odell Ball DO Work Phone: [facility] 06-24-2024 09:46-0500 Diastolic blood pressure 78 mm[Hg] Odell Ball DO Work Phone: [facility] 06-24-2024 09:46-0500 Heart rate 82 /min Odell Ball DO Work Phone: [facility] 06-24-2024 09:46-0500 Respiratory rate 12 /min Odell Ball DO Work Phone: [facility] 06-24-2024 09:46-0500 Systolic blood pressure 158 mm[Hg] Odell Ball DO Work Phone: [facility] 06-08-2024 14:16-0500 Body height 142.24 cm Odell Ball DO Work Phone: [facility] 06-08-2024 14:16-0500 Body mass index (BMI) [Ratio] 32.3 kg/m2 Odell Ball DO Work Phone: [facility] 06-08-2024 14:16-0500 Body weight 65.37 kg Odell Ball DO Work Phone: [facility] 06-08-2024 14:16-0500 Diastolic blood pressure 77 mm[Hg] Odell Ball DO Work Phone: [facility] 06-08-2024 14:16-0500 Heart rate 74 /min Odell Ball DO Work Phone: [facility] 06-08-2024 14:16-0500 Respiratory rate 12 /min Odell Ball DO Work Phone: [facility] 06-08-2024 14:16-0500 Systolic blood pressure 139 mm[Hg] Odell Ball DO Work Phone: [facility] 04-15-2024 15:03-0400 Body height 149.9 cm Hiro Henry DPM Work Phone: [facility] 04-15-2024 15:03-0400 Body mass index (BMI) [Ratio] 30.7 kg/m2 Hiro Ryder DPM Work Phone: [facility] 04-15-2024 15:03-0400 Body weight 68.95 kg Hiro Ryder DPM Work Phone: [facility] 04-15-2024 15:03-0400 Diastolic blood pressure 74 mm[Hg] Hiro Ryder DPM Work Phone: [facility] 04-15-2024 15:03-0400 Heart rate 81 /min Hiro Ryder DPM Work Phone: [facility] 04-15-2024 15:03-0400 Systolic blood pressure 125 mm[Hg] Hiro Ryder DPM Work Phone: [facility] 04-15-2024 11:44-0400 Body height 142.24 cm DO Odell Ball Work Phone: [facility] 04-15-2024 11:44-0400 Body mass index (BMI) [Ratio] 33.2 kg/m2 DO Odell Ball Work Phone: [facility] 04-15-2024 11:44-0400 Body temperature 97.2 [degF] DO Odell Ball Work Phone: [facility] 04-15-2024 11:44-0400 Body weight 67.24 kg DO Odell Ball Work Phone: [facility] 04-15-2024 11:44-0400 Diastolic blood pressure 78 mm[Hg] DO Odell Ball Work Phone: [facility] 04-15-2024 11:44-0400 Heart rate 67 /min DO Odell Ball Work Phone: [facility] 04-15-2024 11:44-0400 Respiratory rate 12 /min DO Odell Ball Work Phone: [facility] 04-15-2024 11:44-0400 Systolic blood pressure 166 mm[Hg] DO Odell Ball Work Phone: [facility] 03-12-2024 13:58-0400 Body height 142.24 cm DO Odell Ball Work Phone: [facility] 03-12-2024 13:58-0400 Body mass index (BMI) [Ratio] 33.3 kg/m2 DO Odell Ball Work Phone: [facility] 03-12-2024 13:58-0400 Body weight 67.35 kg DO Odell Ball Work Phone: [facility] 03-12-2024 13:58-0400 Diastolic blood pressure 89 mm[Hg] DO Odell Ball Work Phone: [facility] 03-12-2024 13:58-0400 Heart rate 66 /min DO Odell Ball Work Phone: [facility] 03-12-2024 13:58-0400 Respiratory rate 12 /min DO Odell Ball Work Phone: [facility] 03-12-2024 13:58-0400 Systolic blood pressure 139 mm[Hg] DO Odell Ball Work Phone: [facility] 12-19-2023 14:18-0400 Body height 142.24 cm DO Odell Ball Work Phone: [facility] 12-19-2023 14:18-0400 Body mass index (BMI) [Ratio] 33.4 kg/m2 DO Odell Ball Work Phone: [facility] 12-19-2023 14:18-0400 Body weight 67.64 kg DO Odell Ball Work Phone: [facility] 12-19-2023 14:18-0400 Diastolic blood pressure 73 mm[Hg] DO Odell Ball Work Phone: [facility] 12-19-2023 14:18-0400 Heart rate 67 /min DO Odell Ball Work Phone: [facility] 12-19-2023 14:18-0400 Respiratory rate 12 /min DO Odell Ball Work Phone: [facility] 12-19-2023 14:18-0400 Systolic blood pressure 168 mm[Hg] DO Odell Ball Work Phone: [facility] 09-19-2023 11:38-0400 Body height 142.24 cm DO Odell Ball Work Phone: [facility] 09-19-2023 11:38-0400 Body mass index (BMI) [Ratio] 34 kg/m2 DO Odell Ball Work Phone: [facility] 09-19-2023 11:38-0400 Body weight 68.71 kg DO Odell Ball Work Phone: [facility] 09-19-2023 11:38-0400 Diastolic blood pressure 76 mm[Hg] DO Odell Ball Work Phone: [facility] 09-19-2023 11:38-0400 Systolic blood pressure 198 mm[Hg] DO Odell Ball Work Phone: [facility] 09-15-2023 08:40-0400 Body temperature 97.8 [degF] DO Odell Ball Work Phone: [facility] 09-15-2023 08:40-0400 Diastolic blood pressure 78 mm[Hg] DO Odell Ball Work Phone: [facility] 09-15-2023 08:40-0400 Heart rate 70 /min DO Odell Ball Work Phone: [facility] 09-15-2023 08:40-0400 Respiratory rate 18 /min DO Odell Ball Work Phone: [facility] 09-15-2023 08:40-0400 SaO2% (BldA) [Mass fraction] 100 % DO Odell Ball Work Phone: [facility] 09-15-2023 08:40-0400 Systolic blood pressure 122 mm[Hg] DO Odell Ball Work Phone: [facility] 09-14-2023 06:00-0400 Body weight 70.8 kg DO Odell Ball Work Phone: [facility] 09-02-2023 15:11-0500 Body height 147.32 cm DO Odell Ball Work Phone: [facility] 09-02-2023 11:34-0500 Body temperature 97.4 [degF] DO Odell Ball Work Phone: [facility] 09-02-2023 11:34-0500 Diastolic blood pressure 65 mm[Hg] DO Odell Ball Work Phone: [facility] 09-02-2023 11:34-0500 Heart rate 62 /min DO Odell Ball Work Phone: [facility] 09-02-2023 11:34-0500 Respiratory rate 18 /min DO Odell Ball Work Phone: [facility] 09-02-2023 11:34-0500 SaO2% (BldA) [Mass fraction] 97 % DO Odell Ball Work Phone: [facility] 09-02-2023 11:34-0500 Systolic blood pressure 139 mm[Hg] DO Odell Ball Work Phone: [facility] 09-01-2023 13:46-0500 Inhaled oxygen flow rate 8 L/min DO Odell Ball Work Phone: [facility] 09-01-2023 11:37-0500 Body height 147.32 cm DO Odell Ball Work Phone: [facility] 09-01-2023 11:37-0500 Body mass index (BMI) [Ratio] 30.9 kg/m2 DO Odell Ball Work Phone: [facility] 09-01-2023 11:37-0500 Body weight 67 kg DO Odell Ball Work Phone: [facility] 08-20-2023 13:05-0500 Body height 147.32 cm DO Odell Ball Work Phone: [facility] 08-20-2023 13:05-0500 Body mass index (BMI) [Ratio] 30.7 kg/m2 DO Odell Ball Work Phone: [facility] 08-20-2023 13:05-0500 Body weight 66.67 kg DO Odell Ball Work Phone: [facility] 08-01-2023 11:00-0500 Body height 147.32 cm Odell Ball Other [facility] 08-01-2023 11:00-0500 Body mass index (BMI) [Ratio] 30.85 kg/m2 Odell Ball Other [facility] [employer] Other 08-01-2023 11:00-0500 Body weight 66.95 kg Odell Ball Other [facility] 08-01-2023 11:00-0500 Diastolic blood pressure 86 mm[Hg] Odell Ball Other [facility] 08-01-2023 11:00-0500 Respiratory rate 12 /min Odell Ball Other [facility] [employer] Other 08-01-2023 11:00-0500 Systolic blood pressure 135 mm[Hg] Odell Ball Other [facility] 07-09-2023 12:45-0500 Body height 147.32 cm Magno Woodbury II Other [facility] 07-09-2023 12:45-0500 Body mass index (BMI) [Ratio] 31.1 kg/m2 Magno Woodbury II Other [facility] Other 07-09-2023 12:45-0500 Body weight 67.5 kg Magno Marino II Other [facility] Other 07-09-2023 12:45-0500 Body weight 67.49 kg DO Odell Ball Work Phone: [facility] 06-06-2023 11:30-0500 Body height 147.32 cm Odell Ball Other [facility] 06-06-2023 11:30-0500 Body mass index (BMI) [Ratio] 29.88 kg/m2 Odell Ball Other [facility] Other 06-06-2023 11:30-0500 Body temperature 97.3 [degF] Odell Ball Other [facility] Other 06-06-2023 11:30-0500 Body weight 64.86 kg Odell Ball Other [facility] 06-06-2023 11:30-0500 Diastolic blood pressure 81 mm[Hg] Odell Ball Other [facility] 06-06-2023 11:30-0500 Respiratory rate 16 /min Odell Ball Other [facility] Other 06-06-2023 11:30-0500 Systolic blood pressure 138 mm[Hg] Odell Ball Other [facility] 05-21-2023 10:30-0500 Body height 147.32 cm Magno Marino II Other [facility] Other 05-21-2023 10:30-0500 Body mass index (BMI) [Ratio] 31.14 kg/m2 Magno Woodbury II Other [facility] Other 05-21-2023 10:30-0500 Body weight 67.59 kg Magno Marino II Other [facility] Other 05-20-2023 13:30-0500 Body height 147.32 cm Odell Ball Other [facility] Other 05-20-2023 13:30-0500 Body mass index (BMI) [Ratio] 31.64 kg/m2 Odell Ball Other [facility] Other 05-20-2023 13:30-0500 Body weight 68.68 kg Odell Ball Other [facility] Other 05-20-2023 13:30-0500 Diastolic blood pressure 77 mm[Hg] Odell Ball Other [facility] Other 05-20-2023 13:30-0500 Respiratory rate 12 /min Odell Ball Other [facility] Other 05-20-2023 13:30-0500 Systolic blood pressure 158 mm[Hg] Odell Ball Other [facility] Other 10-22-2022 15:00-0400 Body height 147.32 cm Odell Ball Other [facility] Other 10-22-2022 15:00-0400 Body mass index (BMI) [Ratio] 31.47 kg/m2 Odell Ball Other [facility] Other 10-22-2022 15:00-0400 Body weight 68.31 kg Odell Ball Other [facility] Other 10-22-2022 15:00-0400 Diastolic blood pressure 81 mm[Hg] Odell Ball Other [facility] Other 10-22-2022 15:00-0400 Respiratory rate 12 /min Odell Ball Other [facility] Other 10-22-2022 15:00-0400 Systolic blood pressure 150 mm[Hg] Odell Ball Other [facility] Other 07-24-2022 16:00-0500 Body height 147.32 cm Odell [email or web address] Other [facility] Other 07-24-2022 16:00-0500 Body mass index (BMI) [Ratio] 31.81 kg/m2 Odell [email or web address] Other [facility] Other 07-24-2022 16:00-0500 Body temperature 97 [degF] Odell [email or web address] Other [facility] Other 07-24-2022 16:00-0500 Body weight 69.04 kg [employer] Other [facility] Other Encounters Encounter Date Encounter Type Care Provider Facility Start: 11-11-2024 End: 11-11-2024 Peñaboo yandy Henry DPM Work Phone: [facility] Start: 11-11-2024 End: 11-11-2024 Bamboo yandy Henry DPM Work Phone: [facility] Start: 11-11-2024 End: 11-11-2024 Office outpatient visit 15 minutes Hiro Henry DPM Work Phone: [facility] Comment on above: Tinea pedis of left foot (Primary Dx); Pain due to onychomycosis of toenails of both feet; Hav (hallux abducto valgus), left; Hallux rigidus of right foot Start: 11-11-2024 End: 11-11-2024 ambulatory HIRO HENRY Not Available Start: 10-25-2024 End: 10-25-2024 Jaylen Palacios MD Work Phone: [facility] Start: 10-25-2024 End: 10-25-2024 Jaylen Palacios MD Work Phone: [facility] Start: 10-25-2024 End: 10-25-2024 Office outpatient visit 15 minutes Annabella Palacios MD Work Phone: [facility] Comment on above: Other seborrheic hayden matitis (Primary Dx); Lentigines; Neoplasm of unspecified behavior of bone, soft tissue, and skin; Actinic keratosis Start: 10-25-2024 End: 10-25-2024 ambulatory ANNABELLA PALACIOS Not Available Start: 09-07-2024 ambulatory [facility] Start: 09-02-2024 End: 09-02-2024 ambulatory Magno Pichardo II Facility:[facility] Start: 09-02-2024 End: 09-02-2024 Patient encounter procedure Odell Harrington DO Work Phone: [facility] Work Phone: Start: 08-30-2024 End: 08-30-2024 ambulatory [facility] Start: 08-30-2024 End: 08-30-2024 ambulatory [facility] Start: 08-26-2024 End: 08-26-2024 Bamboo flowsheet Hiro Henry DPM Work Phone: [facility] Start: 08-26-2024 End: 08-26-2024 Bamboo flowsheet Hiro Henry DPM Work Phone: [facility] Start: 08-26-2024 End: 08-26-2024 Office outpatient visit 15 minutes Hiro Henry DPM Work Phone: [facility] Comment on above: Tinea pedis of left foot (Primary Dx); Pain due to onychomycosis of toenails of both feet; Hav (hallux abducto valgus), left Start: 08-26-2024 End: 08-26-2024 ambulatory HIRO HENRY Not Available Start: 08-16-2024 End: 08-16-2024 ambulatory Odell Ball DO Work Phone: [facility] Work Phone: Start: 08-16-2024 End: 08-16-2024 Patient encounter procedure Odell Ball DO Work Phone: [facility] Work Phone: Start: 08-09-2024 End: 08-09-2024 ambulatory Odell Ball DO Work Phone: [facility] Work Phone: Start: 08-09-2024 End: 08-09-2024 Patient encounter procedure Odell Ball DO Work Phone: [facility] Work Phone: Start: 08-03-2024 Non-patient / Non-visit Benjam in Ball DO Work Phone: [facility] Work Phone: Start: 07-28-2024 Non-patient / Non-visit Benjam in Ball DO Work Phone: [facility] Work Phone: Start: 07-21-2024 Non-patient / Non-visit Benjam in Ball DO Work Phone: [facility] Work Phone: Start: 07-20-2024 End: 08-02-2024 Evaluation and management of inpatient Odell Ball DO Work Phone: [facility] Work Phone: Start: 07-20-2024 Non-patient / Non-visit Benjam in Ball DO Work Phone: [facility] Work Phone: Start: 07-19-2024 Non-patient / Non-visit Benjam in Ball DO Work Phone: [facility] Work Phone: Start: 07-19-2024 End: 07-20-2024 Admission to same day surgery center Odell Ball DO Work Phone: [facility] [place] Start: 07-19-2024 End: 07-20-2024 ambulatory Odell Ball DO Work Phone: [facility] Work Phone: Start: 07-09-2024 End: 07-09-2024 ambulatory Odell Ball DO Work Phone: [facility] Work Phone: Start: 07-09-2024 End: 07-09-2024 Patient encounter procedure Odell Ball DO Work Phone: [facility] Work Phone: Start: 07-08-2024 End: 07-08-2024 ambulatory Odell Ball DO Work Phone: [facility] Work Phone: Start: 07-08-2024 End: 07-08-2024 Patient encounter procedure Odell Ball DO Work Phone: [facility] Work Phone: Start: 06-24-2024 End: 06-24-2024 Patient encounter procedure Odell Ball DO Work Phone: [facility] Work Phone: Start: 06-08-2024 End: 06-08-2024 Encounter for other preprocedural examination Odell Ball DO Work Phone: [facility] Start: 06-08-2024 End: 06-08-2024 Patient encounter procedure Oedll Ball DO Work Phone: [facility] Work Phone: Start: 05-05-2024 End: 05-05-2024 Patient encounter procedure DO Odell Ball Work Phone: [facility] [place] Work Phone: Start: 05-05-2024 End: 05-05-2024 ambulatory DO Odell Ball Work Phone: [facility] Work Phone: Start: 04-29-2024 End: 04-29-2024 Patient encounter procedure DO Odell Ball Work Phone: [facility] [place] [facility] Work Phone: Start: 04-15-2024 End: 04-15-2024 Office outpatient visit 15 minutes Hiro Henry DPM Work Phone: [facility] Comment on above: Tinea pedis of left foot (Primary Dx); Pain due to onychomycosis of toenails of both feet; Hallux rigidus of right foot; Hav (hallux abducto valgus), left Start: 04-15-2024 End: 04-15-2024 ambulatory HIRO HENRY Not Available Start: 04-15-2024 End: 04-15-2024 Bamboo flowsheet Hiro Henry DPM Work Phone: [facility] Start: 04-15-2024 End: 04-15-2024 Bamboo flowsheet Hiro Henry DPM Work Phone: [facility] Start: 04-15-2024 End: 04-15-2024 Patient encounter procedure DO Odell Ball Work Phone: [facility] Work Phone: Start: 03-12-2024 End: 03-12-2024 Patient encounter procedure DO Odell Ball Work Phone: [facility] Work Phone: Start: 03-11-2024 End: 03-11-2024 Patient encounter procedure DO Odell Ball [facility] Work Phone: Start: 02-23-2024 End: 02-23-2024 Bamboo flowsheet Lindsey Huang DO Work Phone: [facility] Start: 02-23-2024 End: 02-23-2024 Bamboo flowsheet Lindsey Huang DO Work Phone: [facility] Start: 02-23-2024 End: 02-23-2024 ambulatory LINDSEY HUANG Not Available Start: 02-19-2024 End: 02-19-2024 ambulatory DO Odell Ball Work Phone: [facility] Work Phone: Start: 02-19-2024 End: 02-19-2024 Patient encounter procedure DO Odell Ball Work Phone: [facility] [place] [facility] Work Phone: Start: 02-05-2024 End: 02-05-2024 ambulatory HIRO HENRY Not Available Start: 02-04-2024 End: 02-04-2024 ambulatory [facility] Start: 02-04-2024 Non-patient / Non-visit DO Alex nolan Ball Work Phone: [facility] Work Phone: Start: 12-20-2023 Non-patient / Non-visit DO Alex nolan Ball Work Phone: [facility] Work Phone: Start: 12-19-2023 End: 12-19-2023 Patient encounter procedure DO Odell Ball Work Phone[facility] Work [facility] Start: 11-20-2023 End: 11-20-2023 ambulatory HIRO HENRY Not Available Start: 11-19-2023 End: 11-19-2023 Patient encounter procedure DO Odell Ball Work Phone: [facility] Work Phone: Start: 11-19-2023 End: 11-19-2023 Patient encounter procedure DO Odell Ball Work Phone: [facility] [place] [facility] Start: 11-19-2023 End: 11-19-2023 ambulatory DO Odell Ball Work Phone: [facility] Work Phone: Start: 11-08-2023 Non-patient / Non-visit DO Alex nolan Ball [facility] Work Phone: Start: 11-04-2023 End: 11-04-2023 ambulatory [facility] Start: 10-08-2023 End: 10-08-2023 Patient encounter procedure DO Odell Ball Work Phone: [facility] Work Phone: Start: 10-08-2023 End: 10-08-2023 Patient encounter procedure DO Odell Ball Work Phone: [facility] [place] [facility] Start: 10-08-2023 End: 10-08-2023 ambulatory DO Odell Ball Work Phone: [facility] Work Phone: Start: 09-19-2023 End: 09-19-2023 Patient encounter procedure DO Odell Ball Work Phone: [facility] Work Phone: Start: 09-17-2023 Non-patient / Non-visit DO Alex nolan Ball Work Phone: [facility] Work Phone: Start: 09-13-2023 End: 09-15-2023 Non-patient / Non-visit DO Odell Ball Work Phone: [facility] Work Phone: Start: 09-11-2023 End: 09-15-2023 Non-patient / Non-visit DO Odell Ball Work Phone: [facility] Work Phone: Start: 09-10-2023 End: 09-15-2023 Non-patient / Non-visit DO Odell Ball Work Phone: [facility] Work Phone: Start: 09-03-2023 End: 09-15-2023 Non-patient / Non-visit DO Odell Ball Work Phone: [facility] Work Phone: Start: 09-03-2023 End: 09-15-2023 Non-patient / Non-visit DO Odell Ball Work Phone: [facility] Work Phone: Start: 09-02-2023 End: 09-15-2023 Evaluation and management of inpatient DO Odell Ball Work Phone: [facility] Work Phone: Start: 09-02-2023 Non-patient / Non-visit DO Alex nolan Ball Work Phone: [facility] Work Phone: Start: 09-01-2023 Non-patient / Non-visit DO Alex nolan Ball Work Phone: [facility] Work Phone: Start: 09-01-2023 Non-patient / Non-visit DO Alex nolan Ball Work Phone: [facility] Work Phone: Start: 08-25-2023 End: 08-25-2023 Patient encounter procedure DO Odell Ball Work Phone: [facility] Work Phone: Start: 08-22-2023 End: 08-22-2023 Patient encounter procedure DO Odell Ball Work Phone: [facility] [place] [facility] Work Phone: Start: 08-20-2023 End: 08-20-2023 ambulatory DO Odell Ball Work Phone: [facility] Work Phone: Start: 08-20-2023 End: 08-20-2023 Discharged Recurring DO Odell Ball Work Phone: [facility] Start: 08-20-2023 Registered Recurring DO Benjam in Ball Work Phone: [facility] Start: 08-20-2023 End: 08-20-2023 ambulatory DO Odell Ball Work Phone: [facility] Work Phone: Start: 08-20-2023 End: 08-20-2023 Patient encounter procedure DO Odell Ball Work Phone: [facility]-Pre-Surgical Testing Work Phone: Start: 08-20-2023 End: 08-20-2023 ambulatory DO Odell Ball Work Phone: [facility] Work Phone: Start: 08-20-2023 End: 08-20-2023 Patient encounter procedure DO Odell Ball Work Phone: [facility] Work Phone: Start: 08-01-2023 End: 08-01-2023 ambulatory Odell Ball Other [facility] Other Start: 08-01-2023 Encounter for other preprocedural examination Odell Juany [facility] Start: 08-01-2023 Office outpatient vi sit 25 minutes Odell Harrington [facility] Start: 08-01-2023 Telephone encounter Odell Harrington [facility] Start: 08-01-2023 End: 08-01-2023 Patient encounter procedure DO Odell Ball Work Phone: [facility]- Start: 07-23-2023 Telephone encounter Magno Woodbury II [facility] [place] [facility] Start: 07-23-2023 End: 07-23-2023 ambulatory DO Odell Ball Work Phone: [facility] Work Phone: Start: 07-23-2023 End: 07-23-2023 Patient encounter procedure DO Odell Ball Work Phone: [facility] [place] Work Phone: Start: 07-09-2023 End: 07-09-2023 ambulatory Magno Marino II Other [facility] Other Start: 07-09-2023 Office outpatient vi sit 15 minutes Magno Marino II [facility] [place] [facility] Start: 07-09-2023 End: 07-09-2023 Patient encounter procedure DO Odell Ball Work Phone: [facility] [place] [facility] Work Phone: Start: 06-06-2023 End: 06-06-2023 ambulatory Odell Ball Other [facility] Other Start: 06-06-2023 Office outpatient vi sit 15 minutes Odell Ball [facility] Start: 06-06-2023 End: 06-06-2023 Patient encounter procedure DO Odell Ball Work Phone: [facility] Work Phone: Start: 05-26-2023 End: 05-26-2023 ambulatory Odell Ball Other [facility] Other Start: 05-26-2023 Office outpatient vi sit 15 minutes Odell Ball [facility] Start: 05-26-2023 Telephone encounter Odell Ball [facility] Start: 05-21-2023 End: 05-21-2023 ambulatory Magno Woodbury II Other [facility] Other Start: 05-21-2023 Office outpatient ne w 45 minutes Magno Pichardo II [facility] Start: 05-21-2023 End: 05-21-2023 Patient encounter procedure DO Odell Harrington Work Phone: [facility] Start: 05-21-2023 End: 05-21-2023 Patient encounter procedure DO Odell Harrington Work Phone: [facility] Work Phone: Start: 05-20-2023 End: 05-20-2023 ambulatory Odell Harrington Other [facility] Other Start: 05-20-2023 Office outpatient vi sit 25 minutes Odell Harrington [facility] Start: 05-20-2023 Telephone encounter Odell Harrington [facility] Start: 05-20-2023 End: 05-20-2023 Patient encounter procedure DO Odell Harrington Work Phone: [facility] Work Phone: Start: 11-29-[address] ODELL HARRINGTON Facili ty:H1 Start: 11-19-2022 End: 11-19-2022 ambulatory NARENDRANATH LAKSHMIPATHY . Facility:[facility]1 Start: 11-05-2022 End: 11-06-2022 ambulatory NARENDRANATH LAKSHMIPATHY . Facility:[facility]1 Start: 10-31-2022 End: 11-01-[address] ODELL HARRINGTON Facility:[facility]1 Start: 10-22-2022 End: 10-22-2022 ambulatory Odell Harrington Other [facility] Other Start: 10-22-2022 Patient encounter procedure Odell Harrington [facility] Start: 10-08-2022 End: 10-08-2022 ambulatory Odell Harrington Other [facility] Other Start: 10-08-2022 Office outpatient vi sit 15 minutes Odell Harrington [facility] Start: 07-24-2022 End: 07-24-2022 ambulatory Odell Harrington Other [facility] Other Start: 07-24-2022 Office outpatient vi sit 25 minutes Odell [facility] Start: 07-12-2022 Patient encounter status Odell Harrington Other [facility] Other Start: 05-08-2022 End: 05-09-2022 ambulatory JEREMIAS MCGUIRE Facility:[facility]1 Start: 02-04-2022 End: 03-20-[address] ODELL HARRINGTON Facility:[facility] Start: 01-25-2022 End: 01-26-[address] ODELL HARRINGTON Facility:[facility]1 Procedures Date Procedure Procedure Detail Performing Clinician Start: 10-25-2024 CRYOTHERAPY SKIN LESION Annabella Palacios MD Work Phone: Start: 10-25-2024 End: 10-25-2024 SKIN / NAIL BIOPSY Annabella Palacios MD Work Phone: Start: 09-02-2024 Plain X-ray of left hip Odell Harrington DO Work Phone: Start: 07-20-2024 Urine culture Odell Harrington DO Work Phone: Start: 07-19-2024 End: 07-19-2024 Plain X-ray of left hip Odell Harrington DO Work Phone: Start: 07-19-2024 Total replacement of left hip joint Odell Harrington DO Work Phone: Start: 07-08-2024 Urine culture Odell Harrington DO Work Phone: Start: 05-05-2024 Methicillin resistan t Staphylococcus aureus culture DO Odell Harrington Work Phone: Start: 02-23-2024 Computerized ophthal carine imaging retina Lindsey Huang DO Work Phone: Start: 02-23-2024 End: 02-23-2024 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 degeneration of both eyes (Primary Dx); PCO (posterior capsular opacification), bilateral; Dry eyes; Blepharitis of upper and lower eyelids of both eyes, unspecified type Start: 02-19-2024 Plain X-ray of left hip DO [facility] Work Phone: Start: 11-19-2023 Plain X-ray of right femur DO [facility] Work Phone: Start: 11-19-2023 Plain X-ray of right tibia and right fibula DO [facility] Work Phone: Start: 11-19-2023 X-ray of left knee DO [facility] [employer] Work Phone: Start: 11-19-2023 X-ray of right knee DO [facility] Work Phone: Start: 10-08-2023 X-ray of right knee DO [facility] Work Phone: Start: 09-05-2023 Duplex scan of lower limb veins DO [facility] Work Phone: Start: 08-20-2023 Urine culture DO [email or web address] Work Phone: Start: 08-20-2023 Plain X-ray of right femur DO [facility] Work Phone: Start: 08-20-2023 Plain X-ray of right tibia and right fibula DO [facility] Work Phone: Start: 07-23-2023 Methicillin resistan t Staphylococcus aureus culture DO [facility] Work Phone: Start: 05-21-2023 X-ray of right knee DO [facility] Work Phone: Start: 05-21-2023 X-ray of left knee DO [facility] [employer] Work Phone: 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 DO [facility] Work Phone: Plan of Treatment Date Care Activity Detail Author Start: 10-25-2025 End: 10-25-2025 Patient encounter procedure 10/25/2025 2:05 PM EDT Office Visit [facility] [address] [place] [address] Annabella Palacios MD [address] [place] [address] [facility] Start: 02-22-2025 End: 02-22-2025 Patient encounter procedure 02/22/2025 2:00 PM EDT Office Visit [facility] [address] [place] [id number] Lindsey Huang DO [address] [place] [address] [facility] Start: 02-02-2025 End: 02-02-2025 Patient encounter procedure 02/02/2025 2:30 PM EDT Office Visit [facility] [address] [place] [phone] Annabella Palacios MD [address] [place] [address] [facility] Start: 01-20-2025 End: 01-20-2025 Patient encounter procedure 01/20/2025 1:40 PM EDT Procedure Visit [facility] [address] [facility] [address] [place] [address] Hiro Henry, DPNamrata [address] [facility] [address] [place] [address] [facility] Start: 11-11-2024 End: 11-11-2024 Patient encounter procedure [facility] Comment on above: Pain due to onychomycosis of toenails of both feet (Primary Dx); Tinea pedis of left foot; Hav (hallux abducto valgus), left; Hallux rigidus of right foot Start: 10-25-2024 End: 10-25-2024 Patient encounter procedure [facility] Comment on above: Arrived Start: 09-02-2024 Plain X-ray of left hip XR hip LT min 2V(w/wo pelvis)* [facility] Start: 09-02-2024 XR Hip - left 2 Views [facility] Start: 08-26-2024 End: 08-26-2024 Patient encounter procedure 08/26/2024 1:50 PM EST Procedure Visit [facility] [address] [facility] [address] [place] [address] Hiro Henry, DPNamrata [address] [facility] [address] [place] [address] Pain due to onychomycosis of toenails of both feet (Primary Dx); Tinea pedis of left foot; Hav (hallux abducto valgus), left [facility] Comment on above: Pain due to onychomycosis of toenails of both feet (Primary Dx); Tinea pedis of left foot; Hav (hallux abducto valgus), left Start: 08-02-2024 [facility] Start: 07-27-2024 End: 07-27-2024 Patient encounter procedure 07/27/2024 2:00 PM EST Office Visit [facility] [address] [facility] [address] [place] [address] Mark Marcelo DO [address] [facility] [address] [place] [address] [facility] Start: 07-20-2024 Hospital admission [facility] Start: 07-20-2024 Referral to clinical auditing clerk [facility] Start: 07-20-2024 [facility] Start: 07-20-2024 Bacteria identified in Urine by Culture Urine Culture [facility] Start: 07-20-2024 Urine culture [facility] Start: 07-19-2024 Hospital admission [facility] Start: 07-19-2024 Referral to clinical auditing clerk [facility] Start: 07-19-2024 Referral to rehabilitation physician [facility] Start: 07-08-2024 Bacteria identified in Urine by Culture Urine Culture [facility] Start: 07-08-2024 Urine culture [facility] Start: 07-08-2024 [facility] Start: 06-24-2024 End: 06-24-2024 Patient encounter procedure 06/24/2024 3:00 PM EST Procedure Visit [facility] [address] [facility] [address] [place] [address] Hiro Henry, DPNamrata [address] [facility] [address] [place] [address] [facility] Start: 05-05-2024 MRSA Culture MRSA Culture [facility] Start: 04-15-2024 End: 04-15-2024 Patient encounter procedure [facility] Comment on above: Pain due to onychomycosis of toenails of both feet (Primary Dx); Hallux rigidus of right foot; Hav (hallux abducto valgus), left Start: 02-29-2024 Influenza vaccination Influenza Vaccine (#1) [facility] Start: 02-23-2024 End: 02-23-2024 Patient encounter procedure 02/23/2024 2:00 PM EDT Office Visit [facility] [address] [place] [id number] Lindsey Huang DO [address] [place] [address] Arrived [facility] Comment on above: Arrived Start: 09-15-2023 [facility] Start: 09-02-2023 Hospital admission [facility] Start: 09-02-2023 Referral to clinical auditing clerk [facility] Start: 09-02-2023 [facility] Start: 09-01-2023 Hospital admission [facility] Start: 09-01-2023 Referral to clinical auditing clerk [facility] Start: 09-01-2023 Referral to rehabilitation physician [facility] Start: 08-20-2023 [facility] Start: 08-20-2023 Bacteria identified in Urine by Culture [facility] Start: 08-20-2023 Urine culture Urine Culture [facility] Start: 07-23-2023 MRSA Culture MRSA Culture [facility] Start: 04-12-2016 Pneumococcal Vaccine: 65+ Years (2 of 2 - PCV) Pneumococcal Vaccine: 65+ Years (2 of 2 - PCV) [facility] Comprehensive metabo lic 1999 panel - Serum or Plasma [facility] Comprehensive metabo lic 1999 panel - Serum or Plasma [facility] Cotinine [Mass/volum e] in Serum or Plasma [facility] Dermatopathology exam Dermatopat hology exam Pathology and Cytology Timed Neoplasm of unspecified behavior of bone, soft tissue, and skin Release Upon Ordering for 1 Occurrences starting 10/25/2024 [facility] Work Phone: Comment on above: Release Upon Ordering for 1 Occurrences starting 10/25/2024 Glucose measurement estimated from glycated hemoglobin [facility] Glucose measurement estimated from glycated hemoglobin [facility] Methicillin resistan t Staphylococcus aureus [Presence] in Unspecified specimen by Organism specific culture [facility] Methicillin resistan t Staphylococcus aureus [Presence] in Unspecified specimen by Organism specific culture [facility] Nicotine [Mass/volum e] in Serum or Plasma [facility] Patient Education [facility] Work Phone: Patient referral [facility] Work Phone: XR Chest 2 Views [facility] XR Sternum GE 2 Views [facility] Immunizations Immunization Date Immunization Notes Care Provider Jackie gill 04-13-2024 influenza, high dose seasonal, preservative-free Odell Ball DO Work Phone: [facility] 04-13-2024 influenza virus vaccine, unspecified formulation Hiro Henry DPM Work Phone: [facility] 05-14-2023 RSV, preF3, adj, pf DO Farhad min Ball Work Phone: [facility] 04-30-2023 Flu Shot - Documentation Purposes Only Odell Harrington Other [facility] 04-30-2023 influenza virus vaccine, unspecified formulation Lindsey Huang DO Work Phone: [facility] 04-23-2022 influenza, high dose seasonal, preservative-free Odell Harrington Other [employer] [facility] Other 04-23-2022 Influenza vaccine, quadrivalent, adjuvanted DO Odell Harrington Work Phone: [facility] 04-23-2022 influenza virus vaccine, split virus (incl. purified surface antigen) Odell Harrington Other [facility] Other 04-23-2022 influenza virus vaccine, unspecified formulation DO Odell Harrington Work Phone: [facility] 04-05-2021 COVID-19 Vaccine Pfi zer - Documentation Purposes Only Odell Harrington Other [facility] 03-26-2021 Fluzone QIV High-Dos e 65YR+ DO Odell Harrington Work Phone: [facility] 03-26-2021 influenza virus vaccine, split virus (incl. purified surface antigen) Odell Harrington Other [employer] [facility] Other 03-26-2021 influenza virus vaccine, unspecified formulation DO Odell Harrington Work Phone: [facility] 08-16-2020 COVID-19 Vaccine Pfi zer - Documentation Purposes Only Odell Harrington Other [facility] 07-26-2020 COVID-19 Vaccine Moderna - Documentation Purposes Only Odell Harrington Other [facility] 07-26-2020 COVID-19 Vaccine Pfi zer - Documentation Purposes Only Odell Harrington Other [facility] 03-16-2020 influenza virus vaccine, split virus (incl. purified surface antigen) Odell Harrington Other [facility] [employer] Other 03-16-2020 influenza virus vaccine, unspecified formulation DO [facility] Work Phone: [facility] 03-15-2020 influenza, injectabl e, quadrivalent, preservative free DO [facility] Work Phone: [facility] 04-16-2019 influenza virus vaccine, split virus (incl. purified surface antigen) Odell Harrington Other [facility] [employer] Other 04-16-2019 influenza virus vaccine, unspecified formulation DO [facility] Work Phone: [facility] 04-20-2018 influenza virus vaccine, split virus (incl. purified surface antigen) Odell Harrington Other [facility] Other 04-20-2018 influenza virus vaccine, unspecified formulation DO [facility] Work Phone: [facility] 04-20-2018 Seasonal trivalent influenza vaccine, adjuvanted, preservative free DO [facility] Work Phone: [facility] 05-21-2017 influenza virus vaccine, split virus (incl. purified surface antigen) Odell Harrington Other [facility] Other 05-21-2017 influenza virus vaccine, unspecified formulation DO [facility] Work Phone: [facility] 05-21-2017 influenza, high dose seasonal, preservative-free DO [facility] Work Phone: [facility] 04-23-2016 influenza virus vaccine, split virus (incl. purified surface antigen) Odell Harrington Other [facility] Other 04-23-2016 influenza virus vaccine, unspecified formulation DO [facility] Work Phone: [facility] 04-23-2016 influenza, high dose seasonal, preservative-free DO [facility] Work Phone: [facility] 05-11-2015 pneumococcal conjuga te vaccine, 13 valent Odell Harrington Other [facility] 04-27-2015 tetanus and diphther ia toxoids, adsorbed, preservative free, for adult use (5 Lf of tetanus toxoid and 2 Lf of diphtheria toxoid) Odell Harrington Other [facility] 04-12-2015 influenza, injectabl e, quadrivalent, preservative free DO Odell Harrington Work Phone: [facility] 04-12-2015 pneumococcal polysaccharide vaccine, 23 valent Odell Harrington Other [facility] 04-08-2014 tetanus and diphther ia toxoids, adsorbed, preservative free, for adult use (5 Lf of tetanus toxoid and 2 Lf of diphtheria toxoid) Odell Harrington Other [facility] 01-05-2014 zoster vaccine, live DO Noemí Harrington Work Phone: [facility] 05-10-2013 tetanus and diphther ia toxoids, adsorbed, preservative free, for adult use (5 Lf of tetanus toxoid and 2 Lf of diphtheria toxoid) Odell Harrington Other [facility] 03-04-2012 tetanus and diphther ia toxoids, adsorbed, preservative free, for adult use (5 Lf of tetanus toxoid and 2 Lf of diphtheria toxoid) Odell Harrington Other [facility] 05-11-2008 pneumococcal polysaccharide vaccine, 23 valent Odell Harrington Other [facility] 01-21-2000 tetanus toxoid, adsorbed DO Odell Harrington Work Phone: [facility] Payers Date Payer Category Payer Private Health Insurance [id number] 2010 Medicare [id number] 1959 Medicare [id number] 2.1 [id number] 1959 Private Health Insurance [facility] [id number] 1942 Unknown [id number] 2.16.84 [id number] 1942 Unknown [id number] 2.16.84 [id number] 1942 Unknown [id number] 2.16.84 [id number] 1942 Unknown [id number] 2.16.84 [id number] 1942 Unknown [id number] 2.16.84 [id number] 1942 Unknown [id number] 2.16.84 [id number] 1942 Unknown [id number] 2.16.84 [id number] 1942 Unknown [id number] 2.16.84 0.1.914536.3.579.2.1259 1942 Unknown [id number] 2.16.84 0.1.396739.3.579.2.1259 1942 Unknown [id number] 2.16.84 [id number] 1942 Unknown [id number] 2.16.84 0.1.755290.3.579.2.1259 - Unknown [id number] 2.16.84 [id number] 1942 Unknown [id number] 2.16.84 [id number] - Unknown [id number] 2.16.84 [id number] Social History Date Type Detail Facility Sex Assigned At [facility] Other Start: 08-20-2023 End: 08-02-2024 Tobacco smoking status NHIS Never smoked tobacco (finding) [facility] Start: 1940 Sex Assigned At Female [facility] Start: 10-23-2023 Tobacco smoking status KYIS Tobacco smoking consumption unknown [facility] Start: 1940 Sex assigned at Not on file [facility] Start: 07-08-2024 End: 09-02-2024 Sex Female (finding) [facility] NEGATED: Highlighted row [facility] Medical Equipment Procedure Code Equipment Code Equipment Origin al Text Equipment Identifier Dates Arthroplasty, knee, total, minimally invasive Orthopaedic cement, non-medicated [id number] FDA Start: 09-01-2023 Arthroplasty, knee, total, minimally invasive Uncoated knee femur prosthesis ()[id number] FDA Start: 09-01-2023 Arthroplasty, knee, total, minimally invasive Tibial insert [id number] FDA Start: 09-01-2023 Arthroplasty, knee, total, minimally invasive Polyethylene patella prosthesis ()[id number] FDA Start: 09-01-2023 Arthroplasty, knee, total, minimally invasive Knee stem ()[id number] FDA Start: 09-01-2023 Arthroplasty, knee, total, minimally invasive Uncoated knee tibia prosthesis, metallic ()[id number] FDA Start: 09-01-2023 Arthroplasty, hip, total, anterior approach Acetabular shell ()[id number] FDA Start: 07-19-2024 Arthroplasty, hip, total, anterior approach Orthopaedic bone screw, non-bioabsorbable, sterile ()[id number] FDA Start: 07-19-2024 Arthroplasty, hip, total, anterior approach Orthopaedic bone screw, non-bioabsorbable, sterile ()[id number] FDA Start: 07-19-2024 Arthroplasty, hip, total, anterior approach Ceramic femoral head prosthesis ()[id number] FDA Start: 07-19-2024 Arthroplasty, hip, total, anterior approach Coated hip femur prosthesis, modular ()[id number] FDA Start: 07-19-2024 Arthroplasty, hip, total, anterior approach Non-constrained polyethylene acetabular liner ()[id number] FDA Start: 07-19-2024 Goals Date Patient Goal Desired Activity /State Functional Status Date Assessment Result Facility 08-02-2024 Functional status Patient is Pro gressing Toward Baseline [facility] Work Phone: 07-20-2024 Functional status Patient is Pro gressing Toward Baseline [facility] Work Phone: 09-15-2023 Functional status Patient at Baseline [facility] Work Phone: Mental Status Date Assessment Result Facility 08-02-2024 Cognitive function Cognitive Sta tus Patient at Baseline [facility] Work Phone: 07-20-2024 Cognitive function Cognitive Sta tus Patient at Baseline [facility] Work Phone: 09-15-2023 Cognitive function Cognitive Sta tus Patient at Baseline [facility] Work Phone: Clinical Notes 07-24-2022 to 11-11-2024 Hiro Henry DPM - 11/11/2024 2:00 PM Angel Palacios MD - 10/25/2024 2:00 PM Savita Henry DPM - 08/26/2024 1:50 PM EST Note Date & Type Note Facility 11-11-2024 History of Present illness Narrative Patient: Ashley Brown : 1940 PCP: DO MATHEUS Gayle This is a 83 y.o. female that [...] the right great toe joint although minimal. Has hallux rigidus to the right Patient has tinea pedis history Allergies: Allergies Allergen Reactions Rocuronium Shortness of breath and Unknown Had severe breathing problems, was in ICU, with anesthesia Acetaminophen GI intolerance Hydrocodone Unknown Oxycodone Unknown and GI intolerance Oxycodone-Acetaminophen Unknown vomiting Sulfamethoxazole Unknown Trimethoprim Unknown Past Medical History: Past Medical History: Diagnosis Date Actinic keratosis Cataract Dry eyes HTN (hypertension) (CMS/HCC) Hypercholesteremia (CMS/HCC) Medications: Current Outpatient Medications: acetaminophen (Tylenol) 650 MG suppository, Insert 650 mg into the rectum in the morning and 650 mg before bedtime., Disp: , Rfl: alpha tocopherol (Vitamin E) 400 units capsule, 1 capsule 1 (one) time each day at the same time, Disp: , Rfl: ALPRAZolam (Xanax) 0.25 MG tablet, Takes rarely, Disp: , Rfl: aspirin 81 MG EC tablet, Take 1 tablet by mouth Daily, Disp: , Rfl: atorvastatin (Lipitor) 20 MG tablet, Take 1 tablet by mouth Daily Takes 1/2 tab, Disp: , Rfl: celecoxib (CeleBREX) 200 MG capsule, Take 200 mg by mouth Daily, Disp: , Rfl: cholecalciferol (Vitamin D-3) 25 MCG (1000 UT) tablet, Take 1 tablet by mouth Daily, Disp: , Rfl: Ciclopirox 0.77 % gel, Apply thin layer to affected area once a day, 30 day supply, Disp: 45 g, Rfl: 11 ezetimibe (Zetia) 10 MG tablet, Take 10 mg by mouth Daily, Disp: , Rfl: loratadine (Claritin) 10 MG tablet, 1 (one) time each day at the same time, Disp: , Rfl: losartan (Cozaar) 25 MG tablet, Take 1 tablet by mouth Daily, Disp: , Rfl: metoprolol succinate XL (Toprol-XL) 50 MG 24 hr tablet, Take 50 mg by mouth Daily, Disp: , Rfl: zolpidem (Ambien) 10 MG tablet, Take 1 tablet by mouth as needed at bedtime, Disp: , Rfl: Social History: Social History [...] Partner Violence: Unknown (08/21/2023) Received from 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 Pain due to onychomycosis of toenails of both feet 2. Tinea pedis of left foot 3. Hav (hallux abducto valgus), left 4. Hallux rigidus of right foot PLAN Discussed proper foot care with patient today. Debride nails in length and thickness digits 1 through 10 Pt to take nsaids as needed PRN pain Patient education concerning tinea infection. Pt to continue with antifungal cream. Patient may call if refill needed Hiro Henry DPM documented in this encounter [facility] 10-25-2024 History of Present illness Narrative Images from the original note were not included. Skin Check Location: Patient requests a skin examination from the waist up Dermatologic history: history of Actinic Keratosis, no history of skin cancer, no history of atypical moles Last visit: 1 year ago Follow up Diagnosis: Seborrheic Dermatitis Location: Scalp Last visit: 1 year ago Symptoms: denies itching Status: improved Current treatment: Fluocinonide solution, has not used for several months. She stopped coloring her hair and symptoms resolved Lesions: Location: Left chest Duration: 5 years Quality: denies bleeding Associated symptoms: red Treatments: none All pertinent medical history, medications, and allergies were reviewed. General Exam: alert, oriented to person, place, and time, normal affect, well appearinguses a cane, Unaccompanied A complete skin exam was offered, pt declined. Areas not examined despite medical recommendation: From the waist down Scalp, Examined , exam limited by hair Head, Face Examined Neck Examined Chest Examined Back Examined Abdomen Examined Right arm Examined Left arm Examined Hands Examined Digits,nails: Examined Lymphatics: Not examined Skin Exam 1. OTHER SEBORRHEIC DERMATITIS Scalp Clear today May use Fluocinonide solution daily as needed for flares, hold then clear. Notify office if flaring despite treatment. 2. LENTIGINES (3) Head - Anterior (Face), Left Shoulder - Posterior, Right Shoulder - Posterior Scattered shoemaker macules in sun-exposed areas. The patient was informed that lentigines are benign pigmented lesions that occur on sun-exposed and sun-damaged skin. No treatment is necessary. Recommended regular use of broad spectrum sunscreen SPF 30 or higher 3. NEOPLASM OF UNSPECIFIED BEHAVIOR OF BONE, SOFT TISSUE, AND SKIN (2) Right Malar Cheek Hyperkeratotic papule Lesion biopsy Type of biopsy: tangential Informed consent: discussed [...] yes Amount of lidocaine used: 0.5 cc Specimen A - Dermatopathology exam Differential Diagnosis: AK vs SCC Check Margins: No Size of lesion: 1.- x 0.7 cm Left medial chest Verrucous papule Lesion biopsy Type of biopsy: tangential Informed consent: discussed [...] yes Amount of lidocaine used: 1.0 cc Specimen B - Dermatopathology exam Differential Diagnosis: ISK vs SCC Check Margins: No Size of lesion: 1.0 x 0.8 4. ACTINIC KERATOSIS Left Parietal Scalp Erythematous scaly papules Patient was counseled regarding these sun-induced growths that can develop into squamous cell carcinoma if left untreated. Discussed treatment with cryotherapy. It was emphasized that any treated lesions that fail to resolve should be re-evaluated. Cryotherapy performed today; see procedure note Diagnosis: Actinic keratosis Indication: Precancerous Location: see skin exam Consent: Verbal consent was obtained and risks were discussed, including, but not limited to risks of scarring, darker or director global intelligence pigmentary changes, recurrence, incomplete removal and infection. Method: Liquid nitrogen was used to treat the lesion(s) with two 5-10 second freeze-thaw cycles. Eyes were shielded using cotton pad during procedure Number of lesions treated: 1 Post-procedure instructions: Instructions were given orally and in writing. The office will be contacted if the lesion fails to resolve despite treatment, or if a side effect develops such as abnormal crusting, scabbing, redness or tenderness Cryotherapy, skin lesion - Left Parietal Scalp Next Visit: 1 year documented in this encounter [facility] 09-07-2024 Note Cardiothoracic Surge ry Outpatient Consultation Note 09/07/2024 Reason For Visit Sternal Pain Referring Provider: Dr. Jeremias Mcguire History Of Present Illness Ashley Brown is a 83 y.o. female with PMH of CAD- s/p CBAG x 3 2019 (Dr. Gar [facility]), chronic systolic heart failure, carotid artery stenosis, and hyperlipidemia who was referred to us for sternal malunion. 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 Gar where she was offered plating for the malunion, at that time patient did not want to undergo surgery. She recently followed in office with Dr. Mcguire and she was having increasing chest tenderness/CP along with increasing of bony prominence in sternal area. Dr. 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 Patient is here today with her friend. She endorses she has intermittent tenderness to the anterior portion of her sternum. There are no open areas. Denies clicking and popping. The pain to her sternum does not inhibit her daily routine. Her main concern is the bony prominence and it is getting bigger cosmetically. Assessment: Diagnosis Plan 1. Pain of sternum 2. Hx of CABG Malunion of Sternum Plan : -Patient seen and evaluated by Cardiothoracic Team. Dr. Jean-Pierre Garcia personally examined the patient and reviewed The CT of the Chest and Other Diagnostic Testing. Findings discussed with patient. Explained current disease process and reviewed treatment options. -CT Surgery Recommendation: Malunion of sternum seen on CT of the Chest, the patient is not limited in daily activities with malunion and pain is intermittent and not constant. Offered 3 options: 1. Removal of sternal wires only, 2. Removal of sternal wires and plating of the sternum, 3. Continue to monitor with no surgical intervention. -Patient wants to think about options and discuss with her children. -Will have patient follow-up in 3 months. Informed if she makes a decision sooner to call office. -All questions and concerns answered appropriately and patient was agreeable to plan of care. Past Medical History She has a past medical history of Aortic valve disorder, Atrial fibrillation ([facility]), Carotid artery stenosis, CHF (congestive heart failure) ([facility]), Chronic kidney disease, Coronary artery disease, Heart valve disease, Hyperlipidemia, Hypertension, Mitral valve disorder, and Renal artery stenosis. Surgical History She has a past surgical history that includes Cardiac catheterization; Cholecystectomy; Coronary artery bypass graft (01/27/2020); Cardiac catheterization (01/26/2020); Total knee arthroplasty (Bilateral); and Total hip arthroplasty (07/19/2024). Family History Family History Problem Relation Name Age of Onset Coronary artery disease Father Other (parkinsons) Father Social History She reports that she has never smoked. She has never used smokeless tobacco. She reports current alcohol use. She reports that she does not use drugs. Allergies Hydrocodone-acetaminophen, Oxycodone-acetaminophen, and Rocuronium Medications Current Outpatient Medications Medication Sig Dispense [...] Last Recorded Vitals Visit Vitals BP (!) 191/70 (BP Location: Left arm, Patient Position: Sitting, BP Cuff Size: Adult) Pulse 72 Physical Exam Physical Exam Vitals reviewed. Constitutional: General: She is not in acute distress. Appearance: Normal appearance. She is normal weight. She (more content not included)... [facility] 08-30-2024 Note Obtained imaging alyssia namrata Schuster. CT of Chest/CXR for concern of broken sternal wire. [facility] 08-26-2024 History of Present illness Narrative Patient: Ashley Brown : 1940 PCP: Odell [...] the right great toe joint although minimal. Pt also presents today for follow up of tinea pedis. Pt states that she has been using medicated antifungal cream with positive improvement And states negative itching to feet and toes. Allergies: Allergies Allergen Reactions Rocuronium Shortness of breath and Unknown Had severe breathing problems, was in ICU, with anesthesia Acetaminophen GI intolerance Hydrocodone Unknown Oxycodone Unknown and GI intolerance Oxycodone-Acetaminophen Unknown vomiting Sulfamethoxazole Unknown Trimethoprim Unknown Past Medical History: Past Medical History: Diagnosis Date Actinic keratosis Cataract Dry eyes HTN (hypertension) (CMS/HCC) Hypercholesteremia (CMS/HCC) Medications: Current Outpatient Medications: alpha [...] in the morning. Takes 1/2 tab., Disp: , Rfl: Calcium-Vitamin D-Vitamin K (Calcium+Menaq7) 600-1000-90 MG-UNT-MCG tablet, [...] Partner Violence: Unknown (08/21/2023) [facility] [place] [facility] Fear of [...] the left foot Left 4th interdigital space negative maceration noted with. 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 Pain due to onychomycosis of toenails of both feet 2. Tinea pedis of left foot 3. Hav (hallux abducto valgus), left PLAN Discussed proper foot care with patient today. Debride nails in length and thickness digits 1 through 10 Pt to take nsaids as needed PRN pain Patient education concerning tinea infection. Pt to continue with antifungal cream. Hiro Henry DPM documented in this encounter [facility] 08-02-2024 Discharge summary Note Date/Time August 02, 2024 1:50pm [facility] [address] [place] [address] Discharge Summary Signed Patient: Ashley Brown MR#: [id number] : 1940 Acct:[id number] Age/Sex: 83 / F Adm Date: 5 Loc: Room: 3L0251-[address]: Dilip Laird MD Copies to: [...] Outpatient Physical and Occupational Therapy at [facility] (Address: [address] [place] [address] [address] [place], [place]/ ext. [id number]). The order for this has already been [...] DOS:07/19/24. MED TO BED Follow Up: Odell Harrintgon DO [Primary Care Provider] - 09/10/24 10:30 [...] <Electronically signed by Dilip Laird MD> 08/02/24 [facility] Work Phone: 1(460) 713-428402-03-2025 [place] [address] Discharge Summary Signed Patient: Ashley Brown MR#: [id number] : 1940 Acct:[id number] Age/Sex: 83 / F Adm Date: 5 Loc: Room: [address] [place] [address]: Dilip Laird MD Copies to: [...] Outpatient Physical and Occupational Therapy at [facility](Address: [facility] [address] [place], [place]/ ext. [id number]). The order for this has already been [...] Dilip Laird MD 08/02/24905 Signed By: 08/02/[address] [place], [place] 2322502-01-2025 Progress note Author Elijah Mayers [facility] Note Date/Time July 31, 2024 7 :18pm [facility] [address] [place] [address] Physiatry(Rehab) Progress Note Signed Patient: Ashley Brown MR#: [id number] : 1940 Acct:[id number] Age/Sex: 83 / F Adm Date: 5 Loc: 5T Room: 9M7685-6 Type: ADM IN Attending Dr: Dilip Laird [...] Vicodin) Allergy (Verified 07/19/24 09:05) Vomiting Rocuronium [place] Allergy (Unknown, Uncoded 08/20/23 14:19) breathing difficulty [...] mg 07/20/24 17:06 Bisacodyl 10 Mg Supp.Rect LA 07/20/25 17:05 DAILY PRN Constipation Diphenhydramine HCl 25 mg 07/21/24 09:00 07/31/24 09:48 Diphenhydramine 25 Mg Capsule PO 07/21/25 08:59 25 mg QAM ERNIE Administration Docusate Sodium 100 mg 07/20/24 17:06 Docusate 100 Mg Capsule PO 07/20/25 17:05 BID PRN Constipation Docusate Sodium 283 mg 07/20/24 17:06 Docusate Enema 283 Mg/5 Ml Enema LA 07/20/25 17:05 DAILY PRN Constipation Duloxetine HCl [...] equipment to enhance the patient's a functional scientology Encourage deep breathing exercises and incentive spirometry [...] equipment to enhance the patient's a functional scientology Ensure adequate nutrition and hydration Sleep Discharge planning. Patient was personally seen by me, Dr. Mayers, on the day of encounter, reviewed the history and the relevant portions of the chart, including current orders, allied health and bi consultant notes, labs/imaging and performed timmons elements of exam and I formulated the plan of care and facilitated the medical decision making. I completed a substantive portion of this encounter, the medical decision making portion of this note in its entirety, including Allied health note review, nursing note review, bi consultant note review, discussion with nursing and case management, and more than 50% of my time was spent on counseling and coordination of care, time spent 26 minutes Documented By: Elijah Mayers MD 1914 Signed By: <Electronically signed by Elijah Mayers MD> 07/31/241917 [facility] Work Phone: 1(342) 753-457402-01-2025 [place] [address] Physiatry(Rehab) Progress Note Signed Patient: Ashley Brown MR#: [id number] : 1940 Acct:[id number] Age/Sex: 83 / F Adm Date: 5 Loc: Room: [address] [place] [address] Type: ADM IN Attending Dr: Dilip Laird [...] Vicodin) Allergy (Verified 07/19/24 09:05) Vomiting Rocuronium [place] Allergy (Unknown, Uncoded 08/20/23 14:19) breathing difficulty [...] mg 07/20/24 17:06 Bisacodyl 10 Mg Supp.Rect LA 07/20/25 17:05 DAILY PRN Constipation Diphenhydramine HCl 25 mg 07/21/24 09:00 07/31/24 09:48 Diphenhydramine 25 Mg Capsule PO 07/21/25 08:59 25 mg QAM ERNIE Administration Docusate Sodium 100 mg 07/20/24 17:06 Docusate 100 Mg Capsule PO 07/20/25 17:05 BID PRN Constipation Docusate Sodium 283 mg 07/20/24 17:06 Docusate Enema 283 Mg/5 Ml Enema LA 07/20/25 17:05 DAILY PRN Constipation Duloxetine HCl [...] equipment to enhance the patient's a functional scientology Encourage deep breathing exercises and incentive spirometry [...] equipment to enhance the patient's a functional scientology Ensure adequate nutrition and hydration Sleep Discharge planning. Patient was personally seen by me, Dr. Mayers, on the day of encounter, reviewed the history and the relevant portions of the chart, including current orders, allied health and bi consultant notes, labs/imaging and performed timmons elements of exam and I formulated the plan of care and facilitated the medical decision making. I completed a substantive portion of this encounter, the medical decision making portion of this note in its entirety, including Allied health note review, nursing note review, bi consultant note review, discussion with nursing and case management, and more than 50% of my time was spent on counseling and coordination of care, time spent 26 minutes Documented By: Elijah Mayers MD 1914 Signed By: 07/31/241917 [facility]01-30-2025 Progress note Author Dilip Laird [facility] Note Date/Time July 29, 2024 1 1:57am [facility] [address] [place] [address] Physiatry(Rehab) Progress Note Signed Patient: Ashley Brown MR#: [id number] : 1940 Acct:[id number] Age/Sex: 83 / F Adm Date: 5 Loc: 5T Room: [address] [place] [address] Type: ADM IN Attending Dr: Dilip Laird [...] Vicodin) Allergy (Verified 07/19/24 09:05) Vomiting Rocuronium [place] Allergy (Unknown, Uncoded 08/20/23 14:19) breathing difficulty [...] mg 07/20/24 17:06 Bisacodyl 10 Mg Supp.Rect LA 07/20/25 17:05 DAILY PRN Constipation Diphenhydramine HCl 25 mg 07/21/24 09:00 07/29/24 07:59 Diphenhydramine 25 Mg Capsule PO 07/21/25 08:59 25 mg QAM ERNIE Administration Docusate Sodium 100 mg 07/20/24 17:06 Docusate 100 Mg Capsule PO 07/20/25 17:05 BID PRN Constipation Docusate Sodium 283 mg 07/20/24 17:06 Docusate Enema 283 Mg/5 Ml Enema LA 07/20/25 17:05 DAILY PRN Constipation Duloxetine HCl [...] equipment to enhance the patient's a functional scientology Encourage deep breathing exercises and incentive spirometry [...] equipment to enhance the patient's a functional scientology Ensure adequate nutrition and hydration Sleep Discharge planning. Patient was personally seen by me, Dr. Laird, on the day of encounter, reviewed the history and the relevant portions of the chart, including current orders, allied health and bi consultant notes, labs/imaging and performed timmons elements of exam and I formulated the plan of care and facilitated the medical decision making. I completed a substantive portion of this encounter, the medical decision making portion of this note in its entirety, including Allied health note review, nursing note review, bi consultant note review, discussion with nursing and case management, and more than 50% of my time was spent on counseling and coordination of care, time spent 30 minutes Documented By: Dilip Laird MD 07/29/24 1150 Signed By: <Electronically signed by Dilip Laird MD> 07/29/24 1157 [facility] Work Phone: 1(208) 147-282401-30-2025 [place] [address] Physiatry(Rehab) Progress Note Signed Patient: Ashley Brown MR#: [id number] : 1940 Acct:[id number] Age/Sex: 83 / F Adm Date: 5 Loc: Room: 9A8045-9 Type: ADM IN Attending Dr: Dilip Laird [...] Vicodin) Allergy (Verified 07/19/24 09:05) Vomiting Rocuronium [place] Allergy (Unknown, Uncoded 08/20/23 14:19) breathing difficulty [...] mg 07/20/24 17:06 Bisacodyl 10 Mg Supp.Rect LA 07/20/25 17:05 DAILY PRN Constipation Diphenhydramine HCl 25 mg 07/21/24 09:00 07/29/24 07:59 Diphenhydramine 25 Mg Capsule PO 07/21/25 08:59 25 mg QAM ERNIE Administration Docusate Sodium 100 mg 07/20/24 17:06 Docusate 100 Mg Capsule PO 07/20/25 17:05 BID PRN Constipation Docusate Sodium 283 mg 07/20/24 17:06 Docusate Enema 283 Mg/5 Ml Enema LA 07/20/25 17:05 DAILY PRN Constipation Duloxetine HCl [...] 07/21/24 09:00 07/29/24 07:59 Pantoprazole 40 Mg Tablet.Dr PO 07/21/25 08:59 40 mg DAILY ERNIE Administration Senna/Docusate Sodium 2 tab 07/21/24 09:00 07/29/24 07:59 Sennosides/Docusate 8.6-50mg 1 Tab Tablet PO 07/21/25 08:59 Not Given DAILY ENRIE Sennosides 17.2 mg 07/21/24 12:00 Sennosides 8.6 [...] equipment to enhance the patient's a functional scientology Encourage deep breathing exercises and incentive spirometry [...] equipment to enhance the patient's a functional scientology Ensure adequate nutrition and hydration Sleep Discharge planning. Patient was personally seen by me, Dr. Laird, on the day of encounter, reviewed the history and therelevant portions of the chart, including current orders, allied health and bi consultant notes, labs/imaging and performed timmons elements of exam and I formulated the plan of care and facilitated the medical decision making. I completed a substantive portion of this encounter, the medical decision making portion of this note in its entirety, including Allied health note review, nursing note review, bi consultant note review, discussion with nursing and case management, and more than 50% of my time was spent on counseling and coordination of care, time spent 30 minutes Documented By: Dilip Laird MD 07/29/24 115 Signed By: 07/29/24 1157 [facility]01-29-2025 Progress note Author Dilip Laird [facility] Note Date/Time July 28, 2024 1 :35pm [facility] [address] [place] [address] Physiatry(Rehab) Progress Note Signed Patient: Ashley Brown MR#: [id number] : 1940 Acct:[id number] Age/Sex: 83 / F Adm Date: 5 Loc: Room: 1J2090-0 Type: ADM IN Attending Dr: Dilip Laird [...] Vicodin) Allergy (Verified 07/19/24 09:05) Vomiting Rocuronium [place] Allergy (Unknown, Uncoded 08/20/23 14:19) breathing difficulty [...] 07/20/24 21:00 07/28/24 09:27 Aspirin [address] SALTER 07/20/25 20:59 81 mg BID ERNIE Administration Atorvastatin Calcium 10 mg 07/20/24 22:00 07/20/24 21:25 Atorvastatin 10 Mg Tablet PO 07/20/25 21:59 10 mg QHS ERNIE Administration Bisacodyl 10 mg 07/20/24 17:06 Bisacodyl 10 Mg Supp.Rect LA 07/20/25 17:05 DAILY PRN Constipation Diphenhydramine HCl 25 mg 07/21/24 09:00 07/28/24 09:28 Diphenhydramine 25 Mg Capsule PO 07/21/25 08:59 25 mg QAM ERNIE Administration Docusate Sodium 100 mg 07/20/24 17:06 Docusate 100 Mg Capsule PO 07/20/25 17:05 BID PRN Constipation Docusate Sodium 283 mg 07/20/24 17:06 Docusate Enema 283 Mg/5 Ml Enema LA 07/20/25 17:05 DAILY PRN Constipation Duloxetine HCl [...] equipment to enhance the patient's a functional scientology Encourage deep breathing exercises and incentive spirometry [...] equipment to enhance the patient's a functional scientology Ensure adequate nutrition and hydration Sleep Discharge planning. Patient was personally seen by me, Dr. Laird, on the day of encounter, reviewed the history and the relevant portions of the chart, including current orders, allied health and bi consultant notes, labs/imaging and performed timmons elements of exam and I formulated the plan of care and facilitated the medical decision making. I completed a substantive portion of this encounter, the medical decision making portion of this note in its entirety, including Allied health note review, nursing note review, bi consultant note review, discussion with nursing and case management, and more than 50% of my time was spent on counseling and coordination of care, time spent 30 minutes Documented By: Dilip Laird MD 07/28/24 7726 Signed By: <Electronically signed by Dilip Laird MD> 07/28/24 9320 [facility] Work Phone: 1(697) 557-916601-29-2025 [place] [address] Physiatry(Rehab) Progress Note Signed Patient: Ashley Brown MR#: [id number] : 1940 Acct:[id number] Age/Sex: 83 / F Adm Date: 5 Loc: Room: 8R3504-6 Type: ADM IN Attending Dr: Dilip Laird [...] Vicodin) Allergy (Verified 07/19/24 09:05) Vomiting Rocuronium [place] Allergy (Unknown, Uncoded 08/20/23 14:19) breathing difficulty [...] mg 07/20/24 17:06 Bisacodyl 10 Mg Supp.Rect LA 07/20/25 17:05 DAILY PRN Constipation Diphenhydramine HCl 25 mg 07/21/24 09:00 07/28/24 09:28 Diphenhydramine 25 Mg Capsule PO 07/21/25 08:59 25 mg QAM ERNIE Administration Docusate Sodium 100 mg 07/20/24 17:06 Docusate 100 Mg Capsule PO 07/20/25 17:05 BID PRN Constipation Docusate Sodium 283 mg 07/20/24 17:06 Docusate Enema 283 Mg/5 Ml Enema LA 07/20/25 17:05 DAILY PRN Constipation Duloxetine HCl [...] equipment to enhance the patient's a functional scientology Encourage deep breathing exercises and incentive spirometry [...] equipment to enhance the patient's a functional scientology Ensure adequate nutrition and hydration Sleep Discharge planning. Patient was personally seen by me, Dr. Laird, on the day of encounter, reviewed the history and therelevant portions of the chart, including current orders, allied health and bi consultant notes, labs/imaging and performed timmons elements of exam and I formulated the plan of care and facilitated the medical decision making. I completed a substantive portion of this encounter, the medical decision making portion of this note in its entirety, including Allied health note review, nursing note review, bi consultant note review, discussion with nursing and case management, and more than 50% of my time was spent on counseling and coordination of care, time spent 30 minutes Documented By: Dilip Laird MD 07/28/241333 Signed By: 07/28/24 1335 [facility]01-28-2025 Progress note Author Patricia Mayberry [facility] Note Date/Time July 27, 2024 5 :12pm [facility] [address] [place] [address] Hospitalist Progress Note Signed Patient: Ashley Brown MR#: [id number] : 1940 Acct:[id number] Age/Sex: 83 / F Adm Date: 5 Loc: 5T Room: 4C4907-8 Type: ADM IN Attending Dr: Dilip Laird [...] Vicodin) Allergy (Verified 07/19/24 09:05) Vomiting Rocuronium [place] Allergy (Unknown, Uncoded 08/20/23 14:19) breathing difficulty [...] mg 07/20/24 17:06 Bisacodyl 10 Mg Supp.Rect LA 07/20/25 17:05 DAILY PRN Constipation Diphenhydramine HCl 25 mg 07/21/24 09:00 07/27/24 08:28 Diphenhydramine 25 Mg Capsule PO 07/21/25 08:59 25 mg QAM ERNIE Administration Docusate Sodium 100 mg 07/20/24 17:06 Docusate 100 Mg Capsule PO 07/20/25 17:05 BID PRN Constipation Docusate Sodium 283 mg 07/20/24 17:06 Docusate Enema 283 Mg/5 Ml Enema LA 07/20/25 17:05 DAILY PRN Constipation Duloxetine HCl [...] deferred to the orthopedic team. ?Aspirin BID [id number] per ortho preference Elevated liver enzymes, improved - statin on hold Chronic conditions: 1. Hypertension- increase losartan, continue metoprolol. BPs elevated med adjusted 2. Hyperlipidemia?will hold off atorvastatin due to elevated liver enzymes which have improved resume at discharge 3. GERD? pantoprazole Documented By: Patricia Mayberry APRN 07/01 Signed By: <Electronically signed by CHASITY Mayberry> 07/27/241711 [facility] Work Phone: 1([phone]) 513-515301-28-2025 [place] [address] Hospitalist Progress Note Signed Patient: Ashley Brown MR#: [id number] : 1940 Acct:[id number] Age/Sex: 83 / F Adm Date: 5 Loc: Room: [address] [place] [address] Type: ADM IN Attending Dr: Dilip Laird [...] Vicodin) Allergy (Verified 07/19/24 09:05) Vomiting Rocuronium [place] Allergy (Unknown, Uncoded 08/20/23 14:19) breathing difficulty [...] mg 07/20/24 17:06 Bisacodyl 10 Mg Supp.Rect LA 07/20/25 17:05 DAILY PRN Constipation Diphenhydramine HCl 25 mg 07/21/24 09:00 07/27/24 08:28 Diphenhydramine 25 Mg Capsule PO 07/21/25 08:59 25 mg QAM ERNIE Administration Docusate Sodium 100 mg 07/20/24 17:06 Docusate 100 Mg Capsule PO 07/20/25 17:05 BID PRN Constipation Docusate Sodium 283 mg 07/20/24 17:06 Docusate Enema 283 Mg/5 Ml Enema LA 07/20/25 17:05 DAILY PRN Constipation Duloxetine HCl [...] deferred to the orthopedic team. ?Aspirin BID [id number] per ortho preference Elevated liver enzymes, improved - statin on hold Chronic conditions: 1. Hypertension- increase losartan, continue metoprolol. BPs elevated med adjusted 2. Hyperlipidemia?will hold off atorvastatin due to elevated liver enzymes which have improved resume at discharge 3. GERD? pantoprazole Documented By: Patricia Mayberry, CHASITY 07/01 Signed By: 07/27/241711 [facility]01-28-2025 Progress note Author Dilip Laird [facility] Note Date/Time July 27, 2024 2 :44pm [facility] [address] [place] [address] Physiatry(Rehab) Progress Note Signed Patient: Ashley Brown MR#: [id number] : 1940 Acct:[id number] Age/Sex: 83 / F Adm Date: 5 Loc: Room: [address] [place] [address] Type: ADM IN Attending Dr: Dilip Laird [...] 07/27/24 08:25 07/27/24 08:25 07/27/24 13:30 Narrative: General: Awake, alert, oriented x3 [...] Vicodin) Allergy (Verified 07/19/24 09:05) Vomiting Rocuronium [place] Allergy (Unknown, Uncoded 08/20/23 14:19) breathing difficulty [...] mg 07/20/24 17:06 Bisacodyl 10 Mg Supp.Rect LA 07/20/25 17:05 DAILY PRN Constipation Diphenhydramine HCl 25 mg 07/21/24 09:00 07/27/24 08:28 Diphenhydramine 25 Mg Capsule PO 07/21/25 08:59 25 mg QAM ERNIE Administration Docusate Sodium 100 mg 07/20/24 17:06 Docusate 100 Mg Capsule PO 07/20/25 17:05 BID PRN Constipation Docusate Sodium 283 mg 07/20/24 17:06 Docusate Enema 283 Mg/5 Ml Enema LA 07/20/25 17:05 DAILY PRN Constipation Duloxetine HCl [...] equipment to enhance the patient's a functional scientology Encourage deep breathing exercises and incentive spirometry [...] equipment to enhance the patient's a functional scientology Ensure adequate nutrition and hydration Sleep Discharge planning. Patient was personally seen by me, Dr. Laird, on the day of encounter, reviewed the history and the relevant portions of the chart, including current orders, allied health and bi consultant notes, labs/imaging and performed timmons elements of exam and I formulated the plan of care and facilitated the medical decision making. I completed a substantive portion of this encounter, the medical decision making portion of this note in its entirety, including Allied health note review, nursing note review, bi consultant note review, discussion with nursing and case management, and more than 50% of my time was spent on counseling and coordination of care, time spent 25 minutes In addition to above, patient's case reviewed at weekly team conference, discussed progress and goals of care, barriers/problems to date and discharge planning. Documented By: Dilip Laird MD 07/27/24 144 Signed By: <Electronically signed by Dilip Laird MD> 07/27/24 1444 [facility] Work Phone: 1(144) 517-963901-28-2025 Progress note Author Heidi Mesa [facility] Note Date/Time July 27, 2024 1 :25pm [facility] [address] [place] [address] Physiatry(Rehab) Progress Note Signed Patient: Ashley Brown MR#: [id number] : 1940 Acct:[id number] Age/Sex: 83 / F Adm Date: 5 Loc: 5T Room: 6Q0433-2 Type: ADM IN Attending Dr: Dilip Laird [...] % (Auto) 49.2 Lymph % (Auto) 22.1 Love % (Auto) 12.1 Eos % (Auto) 14.7 Baso % (Auto) 1.9 Nucleat RBC Rel Count 0.1 Neut # (Auto) 3.4 Lymph # (Auto) 1.5 Love # (Auto) 0.8 Eos # (Auto) 1.0 [...] Vicodin) Allergy (Verified 07/19/24 09:05) Vomiting Rocuronium [place] Allergy (Unknown, Uncoded 08/20/23 14:19) breathing difficulty [...] mg 07/20/24 17:06 Bisacodyl 10 Mg Supp.Rect LA 07/20/25 17:05 DAILY PRN Constipation Cefadroxil 500 [...] 17:06 Docusate Enema 283 Mg/5 Ml Enema LA 07/20/25 17:05 DAILY PRN Constipation Duloxetine HCl 20 mg 07/27/24 09:00 Duloxetine [address] SALTER 07/27/25 08:59 DAILY ERNIE Ezetimibe 10 mg [...] 07/21/24 09:00 07/26/24 08:33 Pantoprazole 40 Mg Tablet.Dr PO 07/21/25 08:59 [...] equipment to enhance the patient's a functional scientology Ensure adequate nutrition and hydration Sleep Discharge planning. I spent 22 minutes for services, including hhcm-bw-ulfk encounter with the patient, discussion of the case, plan of care, and exam; and vyvwaqj-rw-bmxq activities, such as reviewing pertinent bi consultant documentation, recent therapy notes, laboratory and radiology studies, and discussion of case with care team including physician, nursing, caser shoe parts, and therapists. More than 50 % of time was spent on patient/family counseling or coordination of care. <Statement entered by Dilip Laird MD - 07/27/24 13:25> Patient was personally seen by me, Dr. Laird, on the day of encounter, reviewed the history and the relevant portions of the chart, including current orders, allied health and bi consultant notes, labs/imaging and performed timmons elements of exam and I formulated the plan of care and facilitated the medical decision making. I completed a substantive portion of this encounter, the medical decision making portion of this note in its entirety, including Allied health note review, nursing note review, bi consultant note review, discussion with nursing and case management, and more than 50% of my time was spent on counseling and coordination of care, time spent 20 minutes Documented By: Heidi Mesa APRN 07/26/24 1 140 Signed By: <Electronically signed by CHASITY Mesa> 07/26/24 1154 <Electronically signed by Dilip Laird MD> 07/27/24 1324 [facility] Work Phone: [phone]) 751-375101-28-2025 [place] [address] Physiatry(Rehab) Progress Note Signed Patient: Ashley Brown MR#: [id number] : 1940 Acct:[id number] Age/Sex: 83 / F Adm Date: 5 Loc: Room: [address] [place] [address] Type: ADM IN Attending Dr: Dilip Laird [...] Vicodin) Allergy (Verified 07/19/24 09:05) Vomiting Rocuronium [place] Allergy (Unknown, Uncoded 08/20/23 14:19) breathing difficulty [...] mg 07/20/24 17:06 Bisacodyl 10 Mg Supp.Rect LA 07/20/25 17:05 DAILY PRN Constipation Diphenhydramine HCl 25 mg 07/21/24 09:00 07/27/24 08:28 Diphenhydramine 25 Mg Capsule PO 07/21/25 08:59 25 mg QAM ERNIE Administration Docusate Sodium 100 mg 07/20/24 17:06 Docusate 100 Mg Capsule PO 07/20/25 17:05 BID PRN Constipation Docusate Sodium 283 mg 07/20/24 17:06 Docusate Enema 283 Mg/5 Ml Enema LA 07/20/25 17:05 DAILY PRN Constipation Duloxetine HCl [...] equipment to enhance the patient's a functional scientology Encourage deep breathing exercises and incentive spirometry [...] equipment to enhance the patient's a functional scientology Ensure adequate nutrition and hydration Sleep Discharge planning. Patient was personally seen by me, Dr. Laird, on the day of encounter, reviewed the history and therelevant portions of the chart, including current orders, allied health and bi consultant notes, labs/imaging and performed timmons elements of exam and I formulated the plan of care and facilitated the medical decision making. I completed a substantive portion of this encounter, the medical decision making portion of this note in its entirety, including Allied health note review, nursing note review, bi consultant note review, discussion with nursing and case management, and more than 50% of my time was spent on counseling and coordination of care, time spent 25 minutes In addition to above, patient's case reviewed at weekly team conference, discussed progress and goals of care, barriers/problems to date and discharge planning. Documented By: Dilip Laird MD 07/27/24 1443 Signed By: 07/27/24 1444 [facility]01-28-2025 [place] [address] Physiatry(Rehab) Progress Note Signed Patient: Ashley Brown MR#: [id number] : 1940 Acct:[id number] Age/Sex: 83 / F Adm Date: 5 Loc: 5T Room: [id number] Type: ADM IN Attending Dr: Dilip Laird [...] % (Auto) 49.2 Lymph % (Auto) 22.1 Love % (Auto) 12.1 Eos % (Auto) 14.7 Baso % (Auto) 1.9 Nucleat RBC Rel Count 0.1 Neut # (Auto) 3.4 Lymph # (Auto) 1.5 Love # (Auto) 0.8 Eos # (Auto) 1.0 [...] Vicodin) Allergy (Verified 07/19/24 09:05) Vomiting Rocuronium [place] Allergy (Unknown, Uncoded 08/20/23 14:19) breathing difficulty [...] mg 07/20/24 17:06 Bisacodyl 10 Mg Supp.Rect LA 07/20/25 17:05 DAILY PRN Constipation Cefadroxil 500 [...] 17:06 Docusate Enema 283 Mg/5 Ml Enema LA 07/20/25 17:05 DAILY PRN Constipation Duloxetine HCl [...] equipment to enhance the patient's a functional scientology Ensure adequate nutrition and hydration Sleep Discharge planning. I spent 22 minutes for services, including fyyb-du-fulw encounter with the patient, discussion of the case, plan of care, and exam; and cdghlka-uz-wdxb activities, such as reviewing pertinent bi consultant documentation, recent therapy notes, laboratory and radiology studies, and discussion of case with care team including physician, nursing, caser shoe parts, and therapists. More than 50 % of time was spent on patient/family counseling or coordination of care. Patient was personally seen by me, Dr. Laird, on the day of encounter, reviewed the history and therelevant portions of the chart, including current orders, allied health and bi consultant notes, labs/imaging and performed timmons elements of exam and I formulated the plan of care and facilitated the medical decision making. I completed a substantive portion of this encounter, the medical decision making portion of this note in its entirety, including Allied health note review, nursing note review, bi consultant note review, discussion with nursing and case management, and more than 50% of my time was spent on counseling and coordination of care, time spent 20 minutes Documented By: Heidi Mesa, CHASITY 07/26/24 1 140 Signed By: 07/26/24 1154 07/27/24 1325 [facility]01-25-2025 Progress note Author Dilip Laird [facility] Note Date/Time July 24, 2024 1 2:23pm [facility] [address] [place] [address] Physiatry(Rehab) Progress Note Signed Patient: Ashley Brown MR#: [id number] : 1940 Acct:[id number] Age/Sex: 83 / F Adm Date: 5 Loc: Room: [address] [place] [address] Type: ADM IN Attending Dr: Dilip Laird [...] Vicodin) Allergy (Verified 07/19/24 09:05) Vomiting Rocuronium [place] Allergy (Unknown, Uncoded 08/20/23 14:19) breathing difficulty [...] 07/20/24 21:00 07/24/24 08:36 Aspirin 81 Mg Tablet. PO 07/20/25 20:59 81 mg BID ERNIE Administration Atorvastatin Calcium 10 mg 07/20/24 22:00 07/20/24 21:25 Atorvastatin 10 Mg Tablet PO 07/20/25 21:59 10 mg QHS ERNIE Administration Bisacodyl 10 mg 07/20/24 17:06 Bisacodyl 10 Mg Supp.Rect LA 07/20/25 17:05 DAILY PRN Constipation Cefadroxil 500 [...] 17:06 Docusate Enema 283 Mg/5 Ml Enema LA 07/20/25 17:05 DAILY PRN Constipation Ezetimibe 10 [...] equipment to enhance the patient's a functional scientology Ensure adequate nutrition and hydration Sleep Discharge planning. I spent 25 minutes for services, including tjaw-qo-gnot encounter with the patient, discussion of the case, plan of care, and exam; and tflforb-bh-cuvn activities, such as reviewing pertinent bi consultant documentation, recent therapy notes, laboratory and radiology studies, and discussion of case with care team including physician, nursing, caser shoe parts, and therapists. More than 50 % of time was spent on patient/family counseling or coordination of care. Documented By: Dilip Laird MD 07/24/241220 Signed By: <Electronically signed by Dilip Laird MD> 07/24/241222 [facility] Work Phone: [phone]) 921-185601-25-2025 [place] [address] Physiatry(Rehab) Progress Note Signed Patient: Ashley Brown MR#: [id number] : 1940 Acct:[id number] Age/Sex: 83 / F Adm Date: 5 Loc: Room: 4R8648-3 Type: ADM IN Attending Dr: Dilip Laird [...] Vicodin) Allergy (Verified 07/19/24 09:05) Vomiting Rocuronium [place] Allergy (Unknown, Uncoded 08/20/23 14:19) breathing difficulty [...] 07/23/24 23:55 Alprazolam 0.25 Mg Tablet PO 07/20/25 17:12 0.25 mg DAILY PRN Administration anxiety Aspirin 81 mg 07/20/24 21:00 07/24/24 08:36 Aspirin 81 Mg Tablet.Dr PO 07/20/25 20:59 81 mg BID ERNIE Administration Atorvastatin Calcium 10 mg 07/20/24 22:00 07/20/24 21:25 Atorvastatin 10 Mg Tablet PO 07/20/25 21:59 10 mg QHS ERNIE Administration Bisacodyl 10 mg 07/20/24 17:06 Bisacodyl 10 Mg Supp.Rect LA 07/20/25 17:05 DAILY PRN Constipation Cefadroxil 500 [...] 17:06 Docusate Enema 283 Mg/5 Ml Enema LA 07/20/25 17:05 DAILY PRN Constipation Ezetimibe 10 [...] 07/21/24 09:00 07/24/24 08:36 Pantoprazole 40 Mg Tablet. PO 07/21/25 08:59 [...] equipment to enhance the patient's a functional scientology Ensure adequate nutrition and hydration Sleep Discharge planning. I spent 25 minutes for services, including stlg-gw-fayj encounter with the patient, discussion of the case, plan of care, and exam; and uhsdrgk-rj-bmgz activities, such as reviewing pertinent bi consultant documentation, recent therapy notes, laboratory and radiology studies, and discussion of case with care team including physician, nursing, caser shoe parts, and therapists. More than 50 % of time was spent on patient/family counseling or coordination of care. Documented By: Dilip Laird MD 07/24/24 1221 Signed By: 07/24/24 1223 [facility]01-23-2025 Progress note Author Dilip Laird [facility] Note Date/Time July 22, 2024 1 1:02am [facility] [address] [place] [address] Physiatry(Rehab) Progress Note Signed Patient: sAhley Brown MR#: [id number] : 1940 Acct:[id number] Age/Sex: 83 / F Adm Date: 5 Loc: Room: [address] [place] [address] Type: ADM IN Attending Dr: Dilip Laird [...] Vicodin) Allergy (Verified 07/19/24 09:05) Vomiting Rocuronium [place] Allergy (Unknown, Uncoded 08/20/23 14:19) breathing difficulty [...] mg 07/20/24 17:06 Bisacodyl 10 Mg Supp.Rect LA 07/20/25 17:05 DAILY PRN Constipation Cefadroxil 500 [...] 17:06 Docusate Enema 283 Mg/5 Ml Enema LA 07/20/25 17:05 DAILY PRN Constipation Ezetimibe 10 [...] 07/21/24 09:00 07/21/24 08:23 Pantoprazole 40 Mg Tablet. PO 07/21/25 08:59 [...] equipment to enhance the patient's a functional scientology Ensure adequate nutrition and hydration Sleep Discharge planning. I spent 26 minutes for services, including uocj-fa-xurk encounter with the patient, discussion of the case, plan of care, and exam; and zhzaynj-al-crkt activities, such as reviewing pertinent bi consultant documentation, recent therapy notes, laboratory and radiology studies, and discussion of case with care team including physician, nursing, caser shoe parts, and therapists. More than 50 % of time was spent on patient/family counseling or coordination of care. Documented By: Dilip Laird MD 07/22/24 0818 Signed By: <Electronically signed by Dilip Laird MD> 07/22/24 1102 [facility] Work Phone: 1([phone]) 308-402501-23-2025 History and physical note Author Heidi Mesa [facility] Note Date/Time July 22, 2024 1 1:00am [facility] [address] [place] [address] Physiatry (Rehab) H&P Signed Patient: Ashley Brown MR#: [id number] : 1940 Acct:[id number] Age/Sex: 83 / F Adm Date: 5 Loc: Room: 3L1729-6 Type: ADM IN Attending Dr: Dilip Laird [...] added for insomnia as per home regimen. [facility] Medical History Impaired mobility and activities of [...] History of heart bypass surgery 2019 in [place] History of cardiac catheterization prior to open [...] Vicodin) Allergy (Verified 07/19/24 09:05) Vomiting Rocuronium [place] Allergy (Unknown, Uncoded 08/20/23 14:19) breathing difficulty [...] 500 Mg Tablet) 1,000 mg PO Q8H [facility] Stop: 07/20/25 21:59 Last Admin: 07/21/24 04:57 Dose: 1,000 mg Al Hydrox/Mg Hydrox/Simethicone (Mag Hydrox/Al Hydrox/Simeth 30 Ml Udc) 30 ml PO Q4H PRN PRN Reason: Indigestion Stop: 07/20/25 17:05 Alprazolam (Alprazolam 0.25 Mg Tablet) 0.25 mg PO DAILY PRN PRN Reason: anxiety Stop: 01/16/25 17:12 Aspirin (Aspirin 81 Mg Tablet.Dr) 81 mg PO BID [facility] Stop: 07/20/25 20:59 Last Admin: 07/21/24 08:23 Dose: 81 mg Atorvastatin Calcium (Atorvastatin 10 Mg Tablet) 10 mg PO QHS [facility] Stop: 07/20/25 21:59 Last Admin: 07/20/24 21:25 Dose: 10 mg Bisacodyl (Bisacodyl 10 Mg Supp.Rect) 10 mg LA DAILY PRN PRN Reason: Constipation Stop: 07/20/25 17:05 Cefadroxil (Cefadroxil 500 Mg Capsule) 500 mg PO BID [facility] Stop: 07/26/24 21:01 Last Admin: 07/21/24 08:23 Dose: 500 mg Diphenhydramine HCl (Diphenhydramine 25 Mg Capsule) 25 mg PO QAM [facility] Stop: 07/21/25 08:59 Last Admin: 07/21/24 08:23 Dose: 25 mg Docusate Sodium (Docusate 100 Mg Capsule) 100 mg PO BID PRN PRN Reason: Constipation Stop: 07/20/25 17:05 Docusate Sodium (Docusate Enema 283 Mg/5 Ml Enema) 283 mg LA DAILY PRN PRN Reason: Constipation Stop: 07/20/25 17:05 Ezetimibe (Ezetimibe 10 Mg Tablet) 10 mg PO HS [facility] Stop: 07/20/25 21:59 Last Admin: 07/20/24 21:25 Dose: 10 mg Lactulose (Lactulose 20 Gm/30 Ml Udc) 30 gm PO DAILY PRN PRN Reason: Constipation Stop: 07/20/25 17:05 Losartan Potassium (Losartan 25 Mg Tablet) 25 mg PO QAM [facility] Stop: 07/21/25 08:59 Last Admin: 07/21/24 08:23 Dose: 25 mg Metoprolol Succinate (Metoprolol Succinate 25 Mg Tab.Er.24h) 25 mg PO QPM [facility] Stop: 07/20/25 20:59 Last Admin: 07/20/24 21:25 [...] 40 Mg Tablet.Dr) 40 mg PO DAILY [facility] Stop: 07/21/25 08:59 Last Admin: 07/21/24 08:23 Dose: 40 mg Prednisone (Prednisone 10 Mg Tablet) 10 mg PO DAILY [facility] Stop: 07/21/25 08:59 Last Admin: 07/21/24 08:23 Dose: 10 mg Senna/Docusate Sodium (Sennosides/Docusate 8.6-50mg 1 Tab Tablet) 2 tab PO DAILY [facility] Stop: 07/21/25 08:59 Last Admin: 07/21/24 08:24 Dose: 1 tab Sennosides (Sennosides 8.6 Mg Tablet) 17.2 mg PO DAILY@12 PRN PRN Reason: If no BM in 2 days Stop: 07/21/25 11:59 Sodium Chloride (Sodium Chloride 0.9 % 10 Ml Syringe) 0 ml IV-PUSH PRN PRN PRN Reason: Flush Stop: 07/20/25 17:05 Temazepam (Temazepam 7.5 Mg Capsule) 7.5 mg PO QHS [facility] Stop: 01/16/25 21:59 Last Admin: 07/20/24 21:25 Dose: 7.5 mg Tramadol HCl (Tramadol 50 Mg Tablet) 50 mg PO Q6H PRN PRN Reason: Pain Scale 4 - 6 Stop: 01/16/25 17:14 Last Admin: 07/20/24 21:24 Dose: 50 mg Vitamin D (Cholecalciferol 10 Mcg (400 Units) Tablet) 20 mcg PO DAILY [facility] Stop: 07/21/25 08:59 Last Admin: 07/21/24 08:23 [...] % (Auto) 75.6 Lymph % (Auto) 10.1 Love % (Auto) 12.0 Eos % (Auto) 1.8 Baso % (Auto) 0.5 Nucleat RBC Rel Count 0.0 Neut # (Auto) 6.1 Lymph # (Auto) 0.8 L Love # (Auto) 1.0 H Eos # (Auto) [...] 14 days Expected Discharge Destination: Home Rehabilitation C: 51 Primary Diagnosis: left JOSE Patient?s/Family?s anticipated [...] 24 hour daily monitoring and intervention from [employer] as well as other consulting physicians including internal medicine as well as 24 hour daily line lead nursing - for medical safe / optimal [...] equipment to enhance the patient's a functional scientology Ensure adequate nutrition and hydration Sleep Discharge planning. I spent 36 minutes for services, including agcn-gt-vhgr encounter with the patient, discussion of the case, plan of care, and exam; and bifgtit-ee-kooi activities, such as reviewing pertinent bi consultant documentation, recent therapy notes, laboratory and radiology studies, and discussion of case with care team including physician, nursing, caser shoe parts, and therapists. More than 50 % of time was spent on patient/family counseling or coordination of care. I completed a substantive portion of this encounter, the medical decision making portion of this note in its entirety, including Allied health note review, nursing note review, bi consultant note review, discussion with nursing and case management, and more than 50% of my time was spent on counseling and coordination of care, time spent 50 minutes Patient was personally seen by me, Dr. Laird, on the day of encounter, within 24 hours of rehab admission, reviewed the history and the relevant portions of the chart, including current orders, allied health and bi consultant notes, labs/imaging and performed timmons elements of exam and I formulated the plan of care and facilitated the medical decision making. Documented By: Heidi Mesa APRN 07/21/24 1 121 Signed By: <Electronically signed by CHASITY Mesa> 07/21/24 1136 <Electronically signed by Dilip Laird MD> 07/22/24 1100 [facility] Work Phone: 1(707) 832-374301-23-2025 [place] [address] Physiatry(Rehab) Progress Note Signed Patient: Ashley Brown MR#: [id number] : 1940 Acct:[id number] Age/Sex: 83 / F Adm Date: 5 Loc: Room: 8N4024-4 Type: ADM IN Attending Dr: Dilip Laird [...] Vicodin) Allergy (Verified 07/19/24 09:05) Vomiting Rocuronium [place] Allergy (Unknown, Uncoded 08/20/23 14:19) breathing difficulty [...] mg 07/20/24 17:06 Bisacodyl 10 Mg Supp.Rect LA 07/20/25 17:05 DAILY PRN Constipation Cefadroxil 500 [...] 17:06 Docusate Enema 283 Mg/5 Ml Enema LA 07/20/25 17:05 DAILY PRN Constipation Ezetimibe 10 [...] equipment to enhance the patient's a functional scientology Ensure adequate nutrition and hydration Sleep Discharge planning. I spent 26 minutes for services, including zevj-pc-rvnk encounter with the patient, discussion of the case, plan of care, and exam; and riqitok-em-ytac activities, such as reviewing pertinent bi consultant documentation, recent therapy notes, laboratory and radiology studies, and discussion of case with care team including physician, nursing, caser shoe parts, and therapists. More than 50 % of time was spent on patient/family counseling or coordination of care. Documented By: Dilip Laird MD 07/22/24 0818 Signed By: 07/22/24 1102 [facility]01-23-2025 [phone] Physiatry (Rehab) H&P Signed Patient: Ashley Brown MR#: [id number] : 1940 Acct:[id number] Age/Sex: 83 / F Adm Date: 5 Loc: 5T Room: 3V8149-3 Type: ADM IN Attending Dr: Dilip Laird [...] added for insomnia as per home regimen. [facility] Medical History Impaired mobility and activities of [...] Vicodin) Allergy (Verified 07/19/24 09:05) Vomiting Rocuronium [place] Allergy (Unknown, Uncoded 08/20/23 14:19) breathing difficulty [...] Stop: 01/16/25 17:12 Aspirin (Aspirin 81 Mg Tablet.) 81 mg PO BID [facility] Stop: 07/20/25 20:59 Last Admin: 07/21/24 08:23 Dose: 81 mg Atorvastatin Calcium (Atorvastatin 10 Mg Tablet) 10 mg PO QHS ERNIE Stop: 07/20/25 21:59 Last Admin: 07/20/24 21:25 Dose: 10 mg Bisacodyl (Bisacodyl 10 Mg Supp.Rect) 10 mg LA DAILY PRN PRN Reason: Constipation Stop: 07/20/25 17:05 Cefadroxil (Cefadroxil 500 Mg Capsule) 500 mg PO BID [facility] Stop: 07/26/24 21:01 Last Admin: 07/21/24 08:23 Dose: 500 mg Diphenhydramine HCl (Diphenhydramine 25 Mg Capsule) 25 mg PO QAM [facility] Stop: 07/21/25 08:59 Last Admin: 07/21/24 08:23 Dose: 25 mg Docusate Sodium (Docusate 100 Mg Capsule) 100 mg PO BID PRN PRN Reason: Constipation Stop: 07/20/25 17:05 Docusate Sodium (Docusate Enema 283 Mg/5 Ml Enema) 283 mg LA DAILY PRN PRN Reason: Constipation Stop: 07/20/25 17:05 Ezetimibe (Ezetimibe 10 Mg Tablet) 10 mg PO HS [facility] Stop: 07/20/25 21:59 Last Admin: 07/20/24 21:25 Dose: 10 mg Lactulose (Lactulose 20 Gm/30 Ml Udc) 30 gm PO DAILY PRN PRN Reason: Constipation Stop: 07/20/25 17:05 Losartan Potassium (Losartan 25 Mg Tablet) 25 mg PO QAM [facility] Stop: 07/21/25 08:59 Last Admin: 07/21/24 08:23 Dose: 25 mg Metoprolol Succinate (Metoprolol Succinate 25 Mg Tab.Er.24h) 25 mg PO QPM [facility] Stop: 07/20/25 20:59 Last Admin: 07/20/24 21:25 [...] 40 Mg Tablet.Dr) 40 mg PO DAILY [facility] Stop: 07/21/25 08:59 Last Admin: 07/21/24 08:23 Dose: 40 mg Prednisone (Prednisone 10 Mg Tablet) 10 mg PO DAILY [facility] Stop: 07/21/25 08:59 Last Admin: 07/21/24 08:23 Dose: 10 mg Senna/Docusate Sodium (Sennosides/Docusate 8.6-50mg 1 Tab Tablet) 2 tab PO DAILY [facility] Stop: 07/21/25 08:59 Last Admin: 07/21/24 08:24 Dose: 1 tab Sennosides (Sennosides 8.6 Mg Tablet) 17.2 mg PO DAILY@12 PRN PRN Reason: If no BM in 2 days Stop: 07/21/25 11:59 Sodium Chloride (Sodium Chloride 0.9 % 10 Ml Syringe) 0 ml IV-PUSH PRN PRN PRN Reason: Flush Stop: 07/20/25 17:05 Temazepam (Temazepam 7.5 Mg Capsule) 7.5 mg PO QHS [facility] Stop: 01/16/25 21:59 Last Admin: 01/21/25 21:25 Dose: 7.5 mg Tramadol HCl (Tramadol 50 Mg Tablet) 50 mg PO Q6H PRN PRN Reason: Pain Scale 4 - 6 Stop: 01/16/25 17:14 Last Admin: 07/20/24 21:24 Dose: 50 mg Vitamin D (Cholecalciferol 10 Mcg (400 Units) Tablet) 20 mcg PO DAILY ERNIE Stop: 07/21/25 08:59 Last Admin: 07/21/24 08:23 [...] % (Auto) 75.6 Lymph % (Auto) 10.1 Love % (Auto) 12.0 Eos % (Auto) 1.8 Baso % (Auto) 0.5 Nucleat RBC Rel Count 0.0 Neut # (Auto) 6.1 Lymph # (Auto) 0.8 L Love # (Auto) 1.0 H Eos # (Auto) [...] 14 days Expected Discharge Destination: Home Rehabilitation [facility]: Primary Diagnosis: left JOSE Patient?s/Family?s anticipated outcomes/personal [...] 24 hour daily monitoring and intervention from Tongue Presser as well as other consulting physicians including internal medicine as well as 24 hour daily line lead nursing - for medical safe / optimal [...] equipment to enhance the patient's a functional scientology Ensure adequate nutrition and hydration Sleep Discharge planning. I spent 36 minutes for services, including [id number] encounter with the patient, discussion of the case, plan of care, and exam; and [id number] activities, such as reviewing pertinent bi consultant documentation, recent therapy notes, laboratory and radiology studies, and discussion of case with care team including physician, nursing, caser shoe parts, and therapists. More than 50 % of time was spent on patient/family counseling or coordination of care. I completed a substantive portion of this encounter, the medical decision making portion of this note in its entirety, including Allied health note review, nursing note review, bi consultant note review, discussion with nursing and case management, and more than 50% of my time was spent on counseling and coordination of care, time spent 50 minutes Patient was personally seen by me, Dr. Laird, on the day of encounter, within 24 hours of rehab admission, reviewed the history and the relevant portions of the chart, including current orders, allied health and bi consultant notes, labs/imaging and performed timmons elements of exam and I formulated the plan of care and facilitated the medical decision making. Documented By: Heidi Mesa APRN 07/21/24 1 121 Signed By: 07/21/24 1136 07/22/24 1100 [facility]01-22-2025 Consult note Author Carol Holland [facility] Note Date/Time July 21, 2024 3 :15pm [facility] [address] [place] [address] Hospitalist Consult Note Signed Patient: Ashley Brown MR#: [id number] : 1940 Acct:[id number] Age/Sex: 83 / F Adm Date: 5 Loc: Room: [address] [place] [address] Type: ADM IN Attending Dr: Dilip Laird MD Copies to: Odell Harrington,MD Ron Madden DO Linda Obika, APRN~ HPI DATE OF [...] negative unless noted in the HPI below [facility] Source: Old Records Reviewed Medical History Impaired [...] History of heart bypass surgery 2019 in [place] History of cardiac catheterization prior to open [...] Vicodin) Allergy (Verified 07/19/24 09:05) Vomiting Rocuronium [place] Allergy (Unknown, Uncoded 08/20/23 14:19) breathing difficulty [...] 07/20/24 21:00 07/21/24 08:23 Aspirin 81 Mg Tablet. PO 07/20/25 20:59 81 mg BID ERNIE Administration Atorvastatin Calcium 10 mg 07/20/24 22:00 07/20/24 21:25 Atorvastatin 10 Mg Tablet PO 07/20/25 21:59 10 mg QHS ERNIE Administration Bisacodyl 10 mg 07/20/24 17:06 Bisacodyl 10 Mg Supp.Rect LA 07/20/25 17:05 DAILY PRN Constipation Cefadroxil 500 [...] 17:06 Docusate Enema 283 Mg/5 Ml Enema LA 07/20/25 17:05 DAILY PRN Constipation Ezetimibe 10 [...] % (Auto) 75.6, Lymph % (Auto) 10.1, Love % (Auto) 12.0, Eos % (Auto) 1.8, Baso % (Auto) 0.5, Nucleat RBC Rel Count 0.0, Neut # (Auto) 6.1, Lymph # (Auto) 0.8 L, Love # (Auto) 1.0 H, Eos # (Auto) [...] <Electronically signed by Ron Guajardo DO> 07/21/24 1515 [facility] Work Phone: 1(591) 620-692701-22-2025 [place] [id number] Hospitalist Consult Note Signed Patient: Ashley Brown MR#: [id number] : 1940 Acct:[id number] Age/Sex: 83 / F Adm Date: 5 Loc: Room: 0G1880-4 Type: ADM IN Attending Dr: Dilip Laird MD Copies to: Odell Harrington,MD Ron Madden DO Linda Obika, APRN~ HPI DATE OF [...] History of heart bypass surgery 2020 in [place] History of cardiac catheterization prior to open [...] Vicodin) Allergy (Verified 07/19/24 09:05) Vomiting Rocuronium [place] Allergy (Unknown, Uncoded 08/20/23 14:19) breathing difficulty [...] Fitoq PRN Reason Stop Dose Admin Acetaminophen 1,000 [...] mg 07/20/24 17:06 Bisacodyl 10 Mg Supp.Rect LA 07/20/25 17:05 DAILY PRN Constipation Cefadroxil 500 [...] 17:06 Docusate Enema 283 Mg/5 Ml Enema LA 07/20/25 17:05 DAILY PRN Constipation Ezetimibe 10 [...] % (Auto) 75.6, Lymph % (Auto) 10.1, Love % (Auto) 12.0, Eos % (Auto) 1.8, Baso % (Auto) 0.5, Nucleat RBC Rel Count 0.0, Neut # (Auto) 6.1,Lymph # (Auto) 0.8 L, Love # (Auto) 1.0 H, Eos # (Auto) [...] Carol Holland APRN 07/21/24 1335 Signed By: 07/21/24 1350 07/21/24 [facility]5 [facility]01-21-2025 Progress note Author Magno Pichardo [facility] Note Date/Time July 20, 2024 1 2:57pm [facility] [address] [place] [address] Orthopedic Progress Note Signed Patient: Ashley Brown MR#: [id number] : 1940 Acct:[id number] Age/Sex: 83 / F Adm Date: 5 Loc: 4N Room: [address] [place] [address] Type: REG [facility] Attending Dr: Magno Pichardo II, MD Copies [...] Air 8 07/20/24 12:00 07/20/24 12:00 07/20/24 12:00 07/20/24 12:00 07/20/24 12:00 07/20/24 12:00 07/19/24 12:10 Narrative: Left hip Prevena [...] % (Auto) 79.1 Lymph % (Auto) 8.7 Love % (Auto) 9.4 Eos % (Auto) 1.9 Baso % (Auto) 0.9 Nucleat RBC Rel Count 0.0 Neut # (Auto) 5.5 Lymph # (Auto) 0.6 L Love # (Auto) 0.7 Eos # (Auto) 0.1 Baso # (Auto) 0.1 PHA Creatinine Clear 46.67 Sodium 134 L Potassium 4.0 Chloride 104 Carbon Dioxide 24.0 Anion Gap 10.0 BUN 14 Creatinine 0.76 Est GFR (CKD-EPI) > 60.0 Glucose 107 H POC Glucose 113 Calcium 8.9 [facility] INPATIENT [employer] [facility] [facility] Ambulation: 1 Yes, [...] <Electronically signed by Magno Pichardo MD> 07/20/[address] [place] [address] Work Phone: 1([phone]) 481-451201-21-2025 [place] [address] Orthopedic Progress Note Signed Patient: Ashley Brown MR#: [id number] : 1940 Acct:[id number] Age/Sex: 83 / F Adm Date: 5 Loc: Room: [address] [place] [address] Type: [facility] Attending Dr: Magno Pichardo II, MD [...] Air 8 07/20/24 12:00 07/20/24 12:00 07/20/24 12:00 07/20/24 12:00 07/20/24 12:00 07/20/24 12:00 07/19/24 12:10 Narrative: Left hip Prevena [...] % (Auto) 79.1 Lymph % (Auto) 8.7 Love % (Auto) 9.4 Eos % (Auto) 1.9 Baso % (Auto) 0.9 Nucleat RBC Rel Count 0.0 Neut # (Auto) 5.5 Lymph # (Auto) 0.6 L Love # (Auto) 0.7 Eos # (Auto) 0.1 Baso # (Auto) 0.1 PHA Creatinine Clear 46.67 Sodium 134 L Potassium 4.0 Chloride 104 Carbon Dioxide 24.0 Anion Gap 10.0 BUN 14 Creatinine 0.76 Est GFR (CKD-EPI) > 60.0 Glucose 107 H POC Glucose 113 Calcium 8.9 [facility] INPATIENT [employer] [facility] [facility] Ambulation: 1 Yes, [...] 07/20/24 12 56 Signed By: 07/20/24 1257 [facility]01-20-2025 Consult note Author Carol Holland [facility] Note Date/Time July 19, 2024 6 :47pm [facility] [address] [place] [address] Hospitalist Consult Note Signed Patient: Ashley Brown MR#: [id number] : 1940 Acct:[id number] Age/Sex: 83 / F Adm Date: 5 Loc: 4N Room: [address] [place] [address] Type: REG [facility] Attending Dr: Magno Pichardo II, MD Copies [...] Vicodin) Allergy (Verified 07/19/24 09:05) Vomiting Rocuronium [place] Allergy (Unknown, Uncoded 08/20/23 14:19) breathing difficulty [...] Tablet PO 07/19/25 17:29 Not Given Q8H [facility] Ascorbic Acid 500 mg 07/20/24 08:00 Ascorbic Acid 500 Mg Tablet PO 07/20/25 07:59 BID.WITH.MEALS ERNIE Aspirin 81 mg 07/19/24 21:00 Aspirin 81 Mg Tablet. PO 07/19/25 20:59 BID ERNIE Cefadroxil 500 mg 07/20/24 09:00 Cefadroxil 500 Mg Capsule PO 07/26/24 21:01 BID [facility] Cefazolin Sodium 2 gm 07/19/24 18:00 Cefazolin 2 Gm/11 Ml Syringe IV-PUSH 07/20/24 02:01 Q8H ERNIE Diphenhydramine HCl 25 mg 07/19/24 17:12 Diphenhydramine 25 Mg Capsule PO 07/19/25 17:11 Q6H PRN Itching Ferrous Sulfate 324 mg 07/20/24 08:00 Ferrous Sulfate 324 Mg Tablet. PO 07/20/25 07:59 BID.WITH.MEALS [facility] Lactated Ringer's 1,000 mls @ 20 mls/hr 07/19/24 08:30 07/19/24 12:25 Lactated Ringers IV 07/20/24 08:29 20 mls/hr .Q24H ONE Infusion Lactated Ringer's 1,000 mls @ 75 mls/hr 07/19/24 17:30 07/19/24 17:30 Lactated Ringers IV 07/20/24 06:49 75 mls/hr .[id number] [facility] Administration Mineral Oil 1 each 07/22/24 17:12 Mineral Oil ([place]) 1 Each Enema LA ONCE PRN Constipation Morphine Sulfate 15 mg [...] signed by Paula Ramirez MD> 07/19/24 1847 [facility] Work Phone: 1(305) 557-486501-20-2025 [place] [address] Hospitalist Consult Note Signed Patient: Ashley Brown MR#: [id number] : 1940 Acct:[id number] Age/Sex: 83 / F Adm Date: 5 Loc: 4N Room: [address] [place] [address] Type: REG [facility] Attending Dr: Magno Pichardo II, MD Copies [...] obtained, negative unless noted in the HPI [facility] Source: Old Records Reviewed Medical History COVID [...] History of heart bypass surgery 2019 in [place] History of cardiac catheterization prior to open [...] Vicodin) Allergy (Verified 07/19/24 09:05) Vomiting Rocuronium [place] Allergy (Unknown, Uncoded 08/20/23 14:19) breathing difficulty [...] 81 mg 07/19/24 21:00 Aspirin 81 Mg Tablet.Dr PO 07/19/25 20:59 BID ERNIE Cefadroxil 500 mg 07/20/24 09:00 Cefadroxil 500 Mg Capsule PO 07/26/24 21:01 BID ERNIE Cefazolin Sodium 2 gm 07/19/24 18:00 Cefazolin 2 Gm/11 Ml Syringe IV-PUSH 07/20/24 02:01 Q8H ERNIE Diphenhydramine HCl 25 mg 07/19/24 17:12 Diphenhydramine 25 Mg Capsule PO 07/19/25 17:11 Q6H PRN Itching Ferrous Sulfate 324 mg 07/20/24 08:00 Ferrous Sulfate 324 Mg Tablet.Dr PO 07/20/25 07:59 BID.WITH.MEALS ERNIE Lactated Ringer's 1,000 mls @ 20 mls/hr 07/19/24 08:30 07/19/24 12:25 Lactated Ringers IV 07/20/24 08:29 20 mls/hr .Q24H ONE Infusion Lactated Ringer's 1,000 mls @ 75 mls/hr 07/19/24 17:30 07/19/24 17:30 Lactated Ringers IV 07/20/24 06:49 75 mls/hr .[id number] [facility] Administration Mineral Oil 1 each 07/22/24 17:12 Mineral Oil ([place]) 1 Each Enema LA ONCE PRN Constipation Morphine Sulfate 15 mg [...] 17 Gm Powd.Pack PO 07/27/24 08:59 DAILY [facility] Prednisone 10 mg 07/20/24 09:00 Prednisone 10 Mg Tablet PO 08/18/24 09:01 DAILY [facility] Prochlorperazine Maleate 10 mg 07/19/24 17:12 Prochlorperazine [...] and treat Documented By: Carol Holland APRN 07/19/241809 Signed By: 07/19/24 1835 07/19/24 1847 [facility]12-26-2024 Evaluation note* Diagnosis Onset Date Resolution Status Admit Date ASHD (arteriosclerotic heart disease) acute June 24, 2 024 9:42am Acute sinusitis deleted June 24, [...] July 20, 2024 4:57pm Postoperative hematoma acute Ja nu2024 4:57pm Primary hypertension acute 2024 4:57pm S/P total left hip arthroplasty June, acute July 20 4:57pm Impaired mobility and activities of daily living deleted 2024 4:57pm Insomnia deleted July 20, 2024 4:57pm Primary osteoarthritis of left hip acute August 09 2 025 2:51pm S/P total left hip arthroplasty June, acute August 09 2 025 2:51pm ASHD (arteriosclerotic heart disease) acute August 16 2 025 1:25pm Chest wall mass acute August 16, 2024 1:25pm Elevated cholesterol acute 2024 1:25pm Obesity acute August 16, 2024 1:25pm Primary hypertension acute 2024 1:25pm S/P total left hip arthroplasty June, acute August 16 2 025 1:25pm Acute blood loss anemia noneactive F ebruary 2024 1:25pm S/P total left hip arthroplasty June, acute September 02, 2024 1:38pm [facility] Work Phone: 1(834) 535-422712-10-2024 Evaluation note* Diagnosis Onset Date Resolution Status Admit Date ASHD (arteriosclerotic heart disease) acute June 08 024 2:08pm Carotid stenosis, left acute De 2023 2:08pm Elevated cholesterol acute Dece 2023 2:08pm GERD (gastroesophageal reflu x disease) acute June 08 024 2:08pm Primary hypertension acute Dece 2023 2:08pm Primary osteoarthritis of left hip acute June 08 024 2:08pm Preop exam for internal medicine noneactive June 08 024 2:08pm Acute sinusitis acute June 24, [...] July 20, 2024 4:57pm Postoperative hematoma acute [facility] 2024 4:57pm Primary hypertension acute 2024 4:57pm S/P total left hip arthroplasty acute July 20 4:57pm [facility] Work Phone: 1(516) 503-787412-10-2024 Evaluation note* Diagnosis Onset Date Resolution Status Admit Date ASHD (arteriosclerotic heart disease) acute June 08 024 2:08pm Carotid stenosis, left acute De 2023 2:08pm Elevated cholesterol acute 2023 2:08pm GERD (gastroesophageal reflu x disease) acute June 08 024 2:08pm Primary hypertension acute 2023 2:08pm Primary osteoarthritis of left hip acute Gerardo 10th, 2 024 2:08pm Preop exam for internal [...] July 20, 2024 4:57pm Postoperative hematoma acute [facility] [place] [facility]2024 4:57pm Primary hypertension acute 2024 4:57pm S/P total left hip arthroplasty acute July 20 4:57pm Primary osteoarthritis of left hip acute August 09 025 2:51pm S/P total left hip arthroplasty acute August 09 025 2:51pm [facility] Work Phone: 1(568) 402-855212-10-2024 Evaluation note* Diagnosis Onset Date Resolution Status Admit Date ASHD (arteriosclerotic heart disease) acute June 08, 2 024 2:08pm Carotid stenosis, left acute De cember 2023 2:08pm Elevated cholesterol acute Dece 2023 2:08pm Primary hypertension acute Dece 2023 2:08pm Primary osteoarthritis of left hip acute June 08, 024 2:08pm GERD (gastroesophageal reflux disease) deleted June 08 024 2:08pm Preop exam for internal medicine noneactive June 08, 2 024 2:08pm ASHD (arteriosclerotic heart disease) acute June 24, 2 024 9:42am Acute sinusitis deleted June 24, [...] July 20, 2024 4:57pm Postoperative hematoma acute Ja nuary 2024 4:57pm Primary hypertension acute jairo2024 4:57pm S/P total left hip arthroplasty June, acute July 20 4:57pm Impaired mobility and activities of daily living deleted 2024 4:57pm Insomnia deleted July 20, 2024 4:57pm Primary osteoarthritis of left hip acute August 09, 2 025 2:51pm S/P total left hip arthroplasty June, acute August 09, 2 025 2:51pm ASHD (arteriosclerotic heart disease) acute August 16 2 025 1:25pm Chest wall mass acute August 16, 2024 1:25pm Elevated cholesterol acute Febr 2024 1:25pm Obesity acute August 16, 2024 1:25pm Primary hypertension acute 2024 1:25pm S/P total left hip arthroplasty June, acute August 16, 2 025 1:25pm Acute blood loss anemia noneactive F ebruary 2024 1:25pm [facility] Work Phone: 1(807) 228-158110-31-2024 Evaluation note* Diagnosis Onset Date Resolution Status Admit Date Primary osteoarthritis of left hip acute April 29 12:48pm ASHD (arteriosclerotic heart disease) acute June 08, 2 024 2:08pm Carotid stenosis, left acute De cember 2023 2:08pm Elevated cholesterol acute Dece 2023 2:08pm GERD (gastroesophageal reflu x disease) acute June 08 2 024 2:08pm Primary hypertension acute Dece [...] left hip arthroplasty acute July 19 8:05am [facility] Work Phone: 1(721) 814-300210-17-2024 History of Present illness Narrative* Hiro Henry, DPM - 04/15/2024 3:00 PM EDT Patient: [...] Actinic keratosis Cataract Dry eyes HTN (hypertension) (CMS/HCC) Hypercholesteremia (CMS/[facility]ER[facility]) Medications: Current Outpatient Medications: alpha tocopherol (Vitamin [...] Partner Violence: Unknown (08/21/2023) Received from [facility] Safety & Environment Fear of Current or [...] days Hiro Henry DPM documented in this encounterLake Regional Health [id number] Evaluation note* Diagnosis Onset Date Resolution Status Admit Date ASHD (arteriosclerotic heart disease) acute April 15 11:33am COVID acute April 15, 2024 11:33am Primary hypertension acute Octo 2023 11:33am Primary osteoarthritis of left hip acute April 29 12:48pm ASHD (arteriosclerotic heart disease) acute June 08 024 2:08pm Carotid stenosis, left acute De cember 2023 2:08pm Elevated cholesterol acute Dece 2023 2:08pm GERD (gastroesophageal reflu x disease) acute June 08 024 2:08pm Primary hypertension acute Dece 2023 2:08pm Primary osteoarthritis of left hip acute June 08 024 2:08pm Preop exam for internal medicine noneactive June 08 024 2:08pm Acute sinusitis acute Gerardo 26th, 2024 9:42am ASHD (arteriosclerotic heart disease) acute June 24 024 9:42am Primary osteoarthritis of left hip acute July 08 7:56am [facility] Work Phone: 1(949) 313-404308-26-2024 NoteRight Eye Quality was good. Scan locations included subfoveal. Progression has been stable. Findings include abnormal foveal contour, epiretinal membrane. Left Eye Quality was good. Scan locations included subfoveal. Progression has been stable. 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 documented in this encounterLake Regional Health [id number] NoteUT Cardiology - [facility] Subjective Ashley Brown is a 83 [...] Problem List Diagnosis Coronary artery disease involving [place] coronary artery of [place] heart without angina pectoris Essential hypertension History [...] and time. Psychiatric: Mood (more content not included)...[facility]05-07-2024 NoteCardiovascular Medicine [facility] SUBJECTIVE No chief complaint on file. [...] Problem List Diagnosis Coronary artery disease involving [place] coronary artery of [place] heart without angina pectoris Essential hypertension History [...] and Affect: Mood normal. (more content not included)...[facility]05-07-2024 NotePatient here for 6 mo [...] light-headedness. All other systems reviewed and are negative.[facility] 09-15-2023 Discharge summary Author Elijah Mayers [facility] September 15, 2023 1:11pm Note Date/Time September 15, 2023 12: 34pm [facility] [address] [place] [address] Discharge Summary Signed Patient: Ashley Brown MR#: [id number] : 1940 Acct:[id number] Age/Sex: 82 / F Adm Date: 4 Loc: Room: [address] [place] [address]: Elijah Mayers MD Copies to: DO Elijah Wheat MD Elena Turovskaya, ADJUNCT WRITING INSTRUCTOR~ Providers Date of Discharge: 09/15/23 Discharging Provider: [...] mobility. Patient will be discharged home with [facility] home health services. No additional DME is [...] Plan Discharge Plan Patient Disposition: Home Health [facility] Activity: Ambulate as Tolerated and May Shower [...] as needed. Your Home Health agency is [facility] ( ). They will contact you after discharge to schedule a day/time to meet with you at [facility] to establish care. You have been given [...] signed by Elijah Mayers MD> 09/15/23 1311 [facility] Work Phone: 1(687) 967-308503-18-2024 Progress note Author Magno Pichardo [facility] September 15, 2023 7:54am Note Date/Time September 15, 2023 7:5 4am [facility] [address] [place] [address] Orthopedic Progress Note Signed Patient: Ashley Brown MR#: [id number] : 1940 Acct:[id number] Age/Sex: 82 / F Adm Date: 4 Loc: Room: [address] [place] [address] Type: ADM IN Attending Dr: Elijah Mayers [...] to approximate 105 degrees painlessly. [facility] INPATIENT [employer] [facility] Ambulation: 1 Yes, [...] signed by Magno Pichardo MD> 09/15/23 0754 [facility] Work Phone: 1(611) 157-454403-17-2024 Progress note Author Patricia Mayberry [facility] September 14, 2023 5:41pm Note Date/Time September 14, 2023 5:3 9pm [facility] [address] [place] [address] Hospitalist Progress Note Signed Patient: Ashley Brown MR#: [id number] : 1940 Acct:[id number] Age/Sex: 82 / F Adm Date: 4 Loc: Room: 4D8217-2 Type: ADM IN Attending Dr: Elijah Mayers [...] Vicodin] Allergy (Verified 09/02/23 15:58) Vomiting Rocuronium [place] Allergy (Unknown, Uncoded 08/20/23 14:19) breathing difficulty [...] mg 09/02/23 14:57 Bisacodyl 10 Mg Supp.Rect LA 09/01/24 14:56 DAILY PRN Constipation Diclofenac Sodium 2 gm 09/02/23 18:00 09/13/23 08:35 Diclofenac Sodium 1% Gel 100 Gm Tube TOPICAL 09/01/24 17:59 2 gm QID ERNIE Administration Docusate Sodium 283 mg 09/02/23 14:57 Docusate Enema 283 Mg/5 Ml Enema LA 09/01/24 14:56 DAILY PRN Constipation Docusate Sodium 100 mg 09/05/23 14:06 Docusate 100 Mg Capsule PO 09/03/24 08:59 BID PRN Constipation Enoxaparin Sodium 40 mg 09/03/23 10:35 09/13/23 08:32 Enoxaparin 40 Mg/0.4 Ml Syringe SUBCUT 09/02/24 10:34 40 mg DAILY@1000 ERNIE Administration Home Med 1 each 09/02/23 23:30 Home Meds Kept In Pharmacy [facility] 09/01/24 23:29 PRN PRN zz.Pharmacy Note Lactulose [...] <Electronically signed by CHASITY Mayberry> 09/14/23 1741 [facility] Work Phone: 1(197) 555-584503-15-2024 Progress note Author Elijah Mayers [facility] September 12, 2023 2:08pm Note Date/Time September 12, 2023 2:0 8pm [facility] [address] [place] [address] Physiatry(Rehab) Progress Note Signed Patient: Ashley Brown MR#: [id number] : 1940 Acct:[id number] Age/Sex: 82 / F Adm Date: 4 Loc: Room: [address] [place] [address] Type: ADM IN Attending Dr: Elijah Mayers [...] She was given Compazine 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 Mayers, on the day of encounter, reviewed the history and the relevant portions of the chart, including current orders, allied health and bi consultant notes, labs/imaging and performed timmons elements of exam and I formulated the plan of care and facilitated the medical decision making. I completed a substantive portion of this encounter, the medical decision makingportion of this note in its entirety, including Allied health note review, nursing note review, bi consultant note review, discussion with nursing and case management, and more than 50% of my time was spent on counseling and coordination of care, time spent 25 minutes Documented By: Elijah Mayers MD [id number] Signed By: <Electronically signed by Elijah Mayers MD> 09/12/23 140 [facility] Work Phone: 1(977) 310-208203-14-2024 Progress note Author Elijah Mayers [facility] September 11, 2023 1:21pm Note Date/Time September 11, 2023 1:2 1pm [facility] [address] [place] [address] Physiatry(Rehab) Progress Note Signed Patient: Ashley Brown MR#: [id number] : 1940 Acct:[id number] Age/Sex: 82 / F Adm Date: 4 Loc: Room: 3N9467-3 Type: ADM IN Attending Dr: Elijah Mayers [...] She was given Compazine 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 She does [...] Vicodin] Allergy (Verified 09/02/23 15:58) Vomiting Rocuronium [place] Allergy (Unknown, Uncoded 08/20/23 14:19) breathing difficulty [...] mg 09/02/23 14:57 Bisacodyl 10 Mg Supp.Rect LA 09/01/24 14:56 DAILY PRN Constipation Diclofenac Sodium 2 gm 09/02/23 18:00 09/11/23 09:38 Diclofenac Sodium 1% Gel 100 Gm Tube TOPICAL 09/01/24 17:59 Not Given QID ERNIE Docusate Sodium 283 mg 09/02/23 14:57 Docusate Enema 283 Mg/5 Ml Enema LA 09/01/24 14:56 DAILY PRN Constipation Docusate Sodium [...] equipment to enhance the patient's a functional scientology Ensure adequate nutrition and hydration Sleep: No issues Pain: Continue current regimen for now Discharge plannin/18 Patient was personally seen by me, Dr. Mayers, on the day of encounter, reviewed the history and the relevant portions of the chart, including current orders, allied health and bi consultant notes, labs/imaging and performed timmons elements of exam and I formulated the plan of care and facilitated the medical decision making. I completed a substantive portion of this encounter, the medical decision makingportion of this note in its entirety, including Allied health note review, nursing note review, bi consultant note review, discussion with nursing and case management, and more than 50% of my time was spent on counseling and coordination of care, time spent 26 minutes Documented By: Elijah Mayers MD 1318 Signed By: <Electronically signed by Elijah Mayers MD> 09/11/23 1321 [facility] Work Phone: 1(174) 507-823703-14-2024 Progress note Author Magno Pichardo [facility] September 11, 2023 8:23am Note Date/Time September 11, 2023 8:1 5am [facility] [address] [place] [address] Orthopedic Progress Note Signed Patient: Ashley Brown MR#: [id number] : 1940 Acct:[id number] Age/Sex: 82 / F Adm Date: 4 Loc: Room: [address] [place] [address] Type: ADM IN Attending Dr: Elijah Mayers [...] By: <Electronically signed by Magno Pichardo MD> 09/11/23822 [facility] Work Phone: 1([phone]) 968-416903-13-2024 Progress note Author Elijah Mayers [facility] September 10, 2023 1:36pm Note Date/Time September 10, 2023 1:3 6pm [facility] [address] [place] [address] Physiatry(Rehab) Progress Note Signed Patient: Ashley Brown MR#: [id number] : 1940 Acct:[id number] Age/Sex: 82 / F Adm Date: 4 Loc: Room: 0F3805-7 Type: ADM IN Attending Dr: Elijah Mayers [...] She was given Compazine 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 She does [...] Vicodin] Allergy (Verified 09/02/23 15:58) Vomiting Rocuronium [place] Allergy (Unknown, Uncoded 08/20/23 14:19) breathing difficulty [...] mg 09/02/23 14:57 Bisacodyl 10 Mg Supp.Rect LA 09/01/24 14:56 DAILY PRN Constipation Diclofenac Sodium 2 gm 09/02/23 18:00 09/10/23 10:49 Diclofenac Sodium 1% Gel 100 Gm Tube TOPICAL 09/01/24 17:59 2 gm QID ERNIE Administration Docusate Sodium 283 mg 09/02/23 14:57 Docusate Enema 283 Mg/5 Ml Enema LA 09/01/24 14:56 DAILY PRN Constipation Docusate Sodium 100 mg 09/05/23 14:06 Docusate 100 Mg Capsule PO 09/03/24 08:59 BID PRN Constipation Enoxaparin Sodium 40 mg 09/03/23 10:35 09/10/23 10:48 Enoxaparin 40 Mg/0.4 Ml Syringe SUBCUT 09/02/24 10:34 40 mg DAILY@1000 ERNIE Administration Home Med 1 each 09/02/23 23:30 Home Meds Kept In Pharmacy [facility] 09/01/24 23:29 PRN PRN zz.Pharmacy Note Lactulose 30 gm 09/02/23 14:57 Lactulose 20 Gm/30 Ml Udc PO 09/01/24 14:56 DAILY PRN Constipation Loratadine 10 mg 09/07/23 09:00 09/10/23 10:46 Loratadine 10 Mg Tablet PO 09/06/24 08:59 10 mg QAM ERNIE Administration Losartan Potassium 25 mg 09/03/23 09:00 09/10/23 10:47 Losartan 25 Mg Tablet PO 09/02/24 08:59 25 mg QAM [facility] Administration Metoprolol Succinate 25 mg 09/02/23 21:00 [...] equipment to enhance the patient's a functional scientology Ensure adequate nutrition and hydration Sleep: No issues Pain: Continue current regimen for now Discharge plannin/18 Patient was personally seen by me, Dr. Mayers, on the day of encounter, reviewed the history and the relevant portions of the chart, including current orders, allied health and bi consultant notes, labs/imaging and performed timmons elements of exam and I formulated the plan of care and facilitated the medical decision making. I completed a substantive portion of this encounter, the medical decision makingportion of this note in its entirety, including Allied health note review, nursing note review, bi consultant note review, discussion with nursing and case management, and more than 50% of my time was spent on counseling and coordination of care, time spent 26 minutes Documented By: Elijah Mayers MD 1332 Signed By: <Electronically signed by Elijah Mayers MD> 09/10/23 8047 [facility] Work Phone: 1(172) 696-525203-13-2024 Progress note Author Elijah Mayers [facility] September 10, 2023 9:32am Note Date/Time September 09, 2023 1:2 2pm [facility] [address] [place] [address] Physiatry(Rehab) Progress Note Signed Patient: Ashley Brown MR#: [id number] : 1940 Acct:[id number] Age/Sex: 82 / F Adm Date: 4 Loc: Room: [address] [place] [address] Type: ADM IN Attending Dr: Elijah Mayers MD Copies to: ~ <Heidi CHASITY Mesa - Last Filed: 09/09/23 13:22> Date of [...] She was given Compazine 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 She does [...] and affect appropriate. Normal speech. Objective <Heidi Mesa [employer] WRITING INSTRUCTOR - Last Filed: 09/09/23 13:22> Labs 09/08/23 [...] Vicodin] Allergy (Verified 09/02/23 15:58) Vomiting Rocuronium [place] Allergy (Unknown, Uncoded 08/20/23 14:19) breathing difficulty [...] mg 09/02/23 14:57 Bisacodyl 10 Mg Supp.Rect LA 09/01/24 14:56 DAILY PRN Constipation Cefadroxil 500 mg 09/02/23 21:00 09/09/23 09:23 Cefadroxil 500 Mg Capsule PO 09/09/23 20:59 500 mg BID ERNIE Administration Diclofenac Sodium 2 gm 09/02/23 18:00 09/09/23 09:24 Diclofenac Sodium 1% Gel 100 Gm Tube TOPICAL 09/01/24 17:59 2 gm QID ERNIE Administration Docusate Sodium 283 mg 09/02/23 14:57 Docusate Enema 283 Mg/5 Ml Enema LA 09/01/24 14:56 DAILY PRN Constipation Docusate Sodium [...] 10 mg QHS ERNIE Administration Assessment/Plan <Heidi Mesa APRN - Last Filed: 09/09/23 13:22> Assessment/Plan (1) [...] equipment to enhance the patient's a functional scientology Ensure adequate nutrition and hydration Sleep: No issues Pain: Continue current regimen for now Discharge planning: Home alone in about a week. I spent 22 minutes for services, including kmjh-yn-pwrf encounter with the patient, discussion of the case, plan of care, and exam; and hdkcchj-yz-ejwi activities, such as reviewing pertinent bi consultant documentation, recent therapynotes, laboratory and radiology studies, and discussion of case with care team including physician, nursing, caser shoe parts, and therapists. More than 50 % of [...] equipment to enhance the patient's a functional scientology Ensure adequate nutrition and hydration Sleep: No issues Pain: Continue current regimen for now Discharge planning: Home alone in about a week. I spent 22 minutes for services, including nbkv-al-lvqc encounter with the patient, discussion of the case, plan of care, and exam; and wcxbjot-wa-vmkr activities, such as reviewing pertinent bi consultant documentation, recent therapynotes, laboratory and radiology studies, and discussion of case with care team including physician, nursing, caser shoe parts, and therapists. More than 50 % of time was spent on patient/family counseling or coordination ofcare. Patient was personally seen by me, Dr. Mayers, on the day of encounter, reviewed the history and the relevant portions of the chart, including current orders, allied health and bi consultant notes, labs/imaging and performed timmons elements of exam and I formulated the plan of care and facilitated the medical decision making. I completed a substantive portion of this encounter, the medical decision makingportion of this note in its entirety, including Allied health note review, nursing note review, bi consultant note review, discussion with nursing and [...] <Electronically signed by Elijah Mayers MD> 09/10/23 0948 [facility] Work Phone: 1([phone]) 190-823503-11-2024 Progress note Author Elijah Mayers [facility] September 08, 2023 2:53pm Note Date/Time September 08, 2023 2:5 3pm [facility] [address] [place] [address] Physiatry(Rehab) Progress Note Signed Patient: Ashley Brown MR#: [id number] : 1940 Acct:[id number] Age/Sex: 82 / F Adm Date: 4 Loc: Room: [address] [place] [address] Type: ADM IN Attending Dr: Elijah Mayers [...] She was given Compazine 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 She does [...] % (Auto) 54.1 Lymph % (Auto) 31.1 Love % (Auto) 9.5 Eos % (Auto) 4.0 Baso % (Auto) 1.3 Nucleat RBC Rel Count 0.1 Neut # (Auto) 4.0 Lymph # (Auto) 2.3 Love # (Auto) 0.7 Eos # (Auto) 0.3 [...] Vicodin] Allergy (Verified 09/02/23 15:58) Vomiting Rocuronium [place] Allergy (Unknown, Uncoded 08/20/23 14:19) breathing difficulty [...] mg 09/02/23 14:57 Bisacodyl 10 Mg Supp.Rect LA 09/01/24 14:56 DAILY PRN Constipation Cefadroxil 500 mg 09/02/23 21:00 09/08/23 09:48 Cefadroxil 500 Mg Capsule PO 09/09/23 20:59 500 mg BID ERNIE Administration Diclofenac Sodium 2 gm 09/02/23 18:00 09/08/23 14:25 Diclofenac Sodium 1% Gel 100 Gm Tube TOPICAL 09/01/24 17:59 2 gm QID ERNIE Administration Docusate Sodium 283 mg 09/02/23 14:57 Docusate Enema 283 Mg/5 Ml Enema LA 09/01/24 14:56 DAILY PRN Constipation Docusate Sodium 100 mg 09/05/23 14:06 Docusate 100 Mg Capsule PO 09/03/24 08:59 BID PRN Constipation Enoxaparin Sodium 40 mg 09/03/23 10:35 09/08/23 09:49 Enoxaparin 40 Mg/0.4 Ml Syringe SUBCUT 09/02/24 10:34 40 mg DAILY@1000 [facility] Administration Home Med 1 each 09/02/23 23:30 Home Meds Kept In Pharmacy [facility] 09/01/24 23:29 PRN PRN zz.Pharmacy Note Lactulose 30 gm 09/02/23 14:57 Lactulose 20 Gm/30 Ml Udc PO 09/01/24 14:56 DAILY PRN Constipation Loratadine 10 mg 09/07/23 09:00 09/08/23 09:49 Loratadine 10 Mg Tablet PO 09/06/24 08:59 10 mg QAM [facility] Administration Losartan Potassium 25 mg 09/03/23 09:00 [...] 09:00 09/08/23 09:49 Pantoprazole [address] SALTER 09/03/24 08:59 40 mg DAILY ERNIE Administration [...] equipment to enhance the patient's a functional scientology Ensure adequate nutrition and hydration Sleep: No issues Pain: Continue current regimen for now Discharge planning: Home alone in about a week. I spent 35 minutes for services, including xmoi-np-ukkc encounter with the patient, discussion of the case, plan of care, and exam; and tueklwx-tw-tocs activities, such as reviewing pertinent bi consultant documentation, recent therapynotes, laboratory and radiology studies, and discussion of case with care team including physician, nursing, caser shoe parts, and therapists. More than 50 % of time was spent on patient/family counseling or coordination ofcare. 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 She does [...] Vicodin] Allergy (Verified 09/02/23 15:58) Vomiting Rocuronium [place] Allergy (Unknown, Uncoded 08/20/23 14:19) breathing difficulty [...] mg 09/02/23 14:57 Bisacodyl 10 Mg Supp.Rect LA 09/01/24 14:56 DAILY PRN Constipation Cefadroxil 500 mg 09/02/23 21:00 09/05/23 10:01 Cefadroxil 500 Mg Capsule PO 500 mg BID ERNIE Administration Diclofenac Sodium 2 gm 09/02/23 18:00 09/05/23 10:02 Diclofenac Sodium 1% Gel 100 Gm Tube TOPICAL 09/01/24 17:59 2 gm QID ERNIE Administration Docusate Sodium 283 mg 09/02/23 14:57 Docusate Enema 283 Mg/5 Ml Enema LA 09/01/24 14:56 DAILY PRN Constipation Docusate Sodium 100 mg 09/04/23 09:00 09/05/23 10:02 Docusate 100 Mg Capsule PO 09/03/24 08:59 Not Given BID [facility] Enoxaparin Sodium 40 mg 09/03/23 10:35 09/05/23 [...] equipment to enhance the patient's a functional scientology Ensure adequate nutrition and hydration Sleep: No issues Pain: Continue current regimen for now Discharge planning: Home alone in about a week. I spent 17 minutes for services, including amiy-ce-uysf encounter with the patient, discussion of the case, plan of care, and exam; and xelrwoo-hc-puba activities, such as reviewing pertinent bi consultant documentation, recent therapynotes, laboratory and radiology studies, and discussion of case with care team including physician, nursing, caser shoe parts, and therapists. More than 50 % of time was spent on patient/family counseling or coordination ofcare. <Statement entered by Elijah Mayers MD - 09/08/23 13:35> This documentation has been reviewed and approved. Documented By: Heidi Mesa APRN 09/05/23 1 356 Signed By: <Electronically signed by CHASITY Mesa> 09/05/23 1413 <Electronically signed by Elijah Mayers MD> 09/08/23 1338 [facility] Work Phone: 1(879) 578-157803-11-2024 Progress note Author Elijah Mayers [facility] September 08, 2023 1:35pm Note Date/Time September 07, 2023 8:2 7pm [facility] [address] [place] [address] Physiatry(Rehab) Progress Note Signed Patient: Ashley Brown MR#: [id number] : 1940 Acct:[id number] Age/Sex: 82 / F Adm Date: 4 Loc: Room: [address] [place] [address] Type: ADM IN Attending Dr: Elijah Mayers [...] She was given Compazine 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 She does [...] 16 184/76 H 97 Room Air 09/07/23 15:09/07/23 15:09/07/23 15:09/07/23 15:09/07/23 15:09/07/23 15:06 Narrative: General: Awake, alert, oriented [...] Vicodin] Allergy (Verified 09/02/23 15:58) Vomiting Rocuronium [place] Allergy (Unknown, Uncoded 08/20/23 14:19) breathing difficulty [...] mg 09/02/23 14:57 Bisacodyl 10 Mg Supp.Rect LA 09/01/24 14:56 DAILY PRN Constipation Cefadroxil 500 mg 09/02/23 21:00 09/07/23 08:36 Cefadroxil 500 Mg Capsule PO 09/09/23 20:59 500 mg BID ERNIE Administration Diclofenac Sodium 2 gm 09/02/23 18:00 09/07/23 17:28 Diclofenac Sodium 1% Gel 100 Gm Tube TOPICAL 09/01/24 17:59 Not Given QID ERNIE Docusate Sodium 283 mg 09/02/23 14:57 Docusate Enema 283 Mg/5 Ml Enema LA 09/01/24 14:56 DAILY PRN Constipation Docusate Sodium 100 mg 09/05/23 14:06 Docusate 100 Mg Capsule PO 09/03/24 08:59 BID PRN Constipation Enoxaparin Sodium 40 mg 09/03/23 10:35 09/07/23 09:53 Enoxaparin 40 Mg/0.4 Ml Syringe SUBCUT 09/02/24 10:34 Not Given DAILY@1000 [facility] Home Med 1 each 09/02/23 23:30 Home [...] 09:00 09/07/23 08:36 Pantoprazole [address] SALTER 09/03/24 08:59 40 mg DAILY ERNIE Administration [...] equipment to enhance the patient's a functional scientology Ensure adequate nutrition and hydration Sleep: No issues Pain: Continue current regimen for now Discharge planning: Home alone in about a week. I spent 19 minutes for services, including rrpe-px-ytjg encounter with the patient, discussion of the case, plan of care, and exam; and hdoizul-sj-sixb activities, such as reviewing pertinent bi consultant documentation, recent therapynotes, laboratory and radiology studies, and discussion of case with care team including physician, nursing, caser shoe parts, and therapists. More than 50 % of time was spent on patient/family counseling or coordination ofcare. <Statement entered by Elijah Mayers MD - 09/08/23 13:35> This documentation has been reviewed and approved. Documented By: Heidi Mesa APRN 09/07/23 2 021 Signed By: <Electronically signed by CHASITY Mesa> 09/07/232031 <Electronically signed by Elijah Mayers MD> 09/08/23 1331 [facility] Work Phone: 1(142) 541-409503-07-2024 Progress note Author Elijah Mayers [facility] September 04, 2023 2:42pm Note Date/Time September 04, 2023 2:35 pm [facility] [address] [place] [address] Physiatry(Rehab) Progress Note Signed Patient: Ashley Brown MR#: [id number] : 1940 Acct:[id number] Age/Sex: 82 / F Adm Date: 4 Loc: Room: [address] [place] [address] Type: ADM IN Attending Dr: Elijah Mayers MD Copies to: ~ Date of Service: 09/04/2023 Subjective Subjective Narrative: Ms. Mingo is a 82 year old female with [...] She was given Compazine 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 She does [...] Vicodin] Allergy (Verified 09/02/23 15:58) Vomiting Rocuronium [place] Allergy (Unknown, Uncoded 08/20/23 14:19) breathing difficulty [...] mg 09/02/23 14:57 Bisacodyl 10 Mg Supp.Rect LA 09/01/24 14:56 DAILY PRN Constipation Cefadroxil 500 mg 09/02/23 21:00 09/04/23 09:26 Cefadroxil 500 Mg Capsule PO 500 mg BID ERNIE Administration Diclofenac Sodium 2 gm 09/02/23 18:00 09/04/23 09:28 Diclofenac Sodium 1% Gel 100 Gm Tube TOPICAL 09/01/24 17:59 2 gm QID ERNIE Administration Docusate Sodium 283 mg 09/02/23 14:57 Docusate Enema 283 Mg/5 Ml Enema LA 09/01/24 14:56 DAILY PRN Constipation Docusate Sodium 100 mg 09/04/23 09:00 09/04/23 09:27 Docusate 100 Mg Capsule PO 09/03/24 08:59 100 mg BID ERNIE Administration Enoxaparin Sodium 40 mg 09/03/23 10:35 09/04/23 09:28 Enoxaparin 40 Mg/0.4 Ml Syringe SUBCUT 09/02/24 10:34 40 mg DAILY@1000 [facility] Administration Home Med 1 each 09/02/23 23:30 [...] equipment to enhance the patient's a functional scientology Ensure adequate nutrition and hydration Sleep: No issues Pain: Continue current regimen for now Discharge planning: Home alone in about a week. I spent 14 minutes for services, including yqsl-tk-cckt encounter with the patient, discussion of the case, plan of care, and exam; and jydfuii-yv-qpnv activities, such as reviewing pertinent bi consultant documentation, recent therapynotes, laboratory and radiology studies, and discussion of case with care team including physician, nursing, caser shoe parts, and therapists. More than 50 % of time was spent on patient/family counseling or coordination ofcare. <Statement entered by Elijah Mayers MD - 09/04/23 14:41> I reviewed the history and the relevant portions of the chart, including currentorders, allied health and bi consultant notes, labs/imaging and plan of care as above. Documented By: Heidi Mesa APRN 09/04/23 1 429 Signed By: <Electronically signed by CHASITY Mesa> 09/04/23 1435 <Electronically signed by Elijah Mayers MD> 09/04/23 1442 [facility] Work Phone: 1([phone]) 816-773503-07-2024 Consult note Author Saud Zuniga [facility] September 04, 2023 6:55am Note Date/Time September 03, 2023 2:36 pm [facility] [address] [place] [address] Hospitalist Consult Note Signed Patient: Ashley Brown MR#: [id number] : 1940 Acct:[id number] Age/Sex: 82 / F Adm Date: 4 Loc: Room: [address] [place] [address] Type: ADM IN Attending Dr: Elijah Mayers MD Copies to: DO Elijah Wheat MD Linda Obika, CHASITY Zuniga MD~ HPI DATE OF CONSULTATION: [...] negative unless noted in the HPI below [facility] Source: Old Records Reviewed Medical History Paroxysmal [...] Vicodin] Allergy (Verified 09/02/23 15:58) Vomiting Rocuronium [place] Allergy (Unknown, Uncoded 08/20/23 14:19) breathing difficulty [...] mg PO QPM 08/20/23 [History Confirmed 09/02/23] gdbraoul-iwy-direh ac 400 mcg-calcium carb 500 mg-vit K1 [...] mg 09/02/23 14:57 Bisacodyl 10 Mg Supp.Rect LA 09/01/24 14:56 DAILY PRN Constipation Cefadroxil 500 [...] 14:57 Docusate Enema 283 Mg/5 Ml Enema LA 09/01/24 14:56 DAILY PRN Constipation Enoxaparin Sodium [...] % (Auto) 76.7, Lymph % (Auto) 10.7, Love % (Auto) 11.5, Eos % (Auto) 0.8, Baso % (Auto) 0.3, Nucleat RBC Rel Count 0.0, Neut # (Auto) 6.0, Lymph # (Auto) 0.8 L, Love # (Auto) 0.9 H, Eos # (Auto) 0.1, Baso # (Auto) 0.0, PHA Creatinine Clear 47.47, Sodium 137, Potassium 4.5, Chloride 101, Carbon Dioxide 28.6, Anion Gap 11.9, BUN 11, Creatinine 0.78, Est GFR (CKD-EPI) > 60.0, [id number] H, Calcium 8.8, Total Bilirubin 0.4, AST [...] <Electronically signed by Saud Zuniga MD> 09/04/23 0605 [facility] Work Phone: 1(689) 677-670903-06-2024 History and physical note Author Elijah Mayers [facility] September 03, 2023 2:37pm Note Date/Time September 03, 2023 11:0 2am [facility] [address] [place] [address] Physiatry (Rehab) H&P Signed Patient: Ashley Brown MR#: [id number] : 1940 Acct:[id number] Age/Sex: 82 / F Adm Date: 4 Loc: Room: 3N5583-5 Type: ADM IN Attending Dr: Elijah Mayers [...] She was given Compazine 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 She does [...] social support consisting of friends and family. [facility] Medical History Paroxysmal atrial fibrillation Primary insomnia [...] History of heart bypass surgery 2020 in [place] History of cardiac catheterization prior to open [...] Vicodin] Allergy (Verified 09/02/23 15:58) Vomiting Rocuronium [place] Allergy (Unknown, Uncoded 08/20/23 14:19) breathing difficulty [...] mg PO QPM 08/20/23 [History Confirmed 09/02/23] hentpdhy-tcu-typur ac 400 mcg-calcium carb 500 mg-vit K1 [...] 500 Mg Tablet) 1,000 mg PO Q8H [facility] Stop: 09/01/24 15:14 Last Admin: 09/03/23 06:18 Dose: 1,000 mg Al Hydrox/Mg Hydrox/Simethicone (Mag Hydrox/Al Hydrox/Simeth 30 Ml Udc) 30 ml PO Q4H PRN PRN Reason: Indigestion Stop: 09/01/24 14:56 Last Admin: 09/03/23 00:58 Dose: 30 ml Alprazolam (Alprazolam 0.25 Mg Tablet) 0.25 mg PO Q6H PRN PRN Reason: Anxiety Stop: 03/01/24 10:29 Aspirin (Aspirin 81 Mg Tablet.Dr) 81 mg PO BID [facility] Stop: 09/01/24 20:59 Last Admin: 09/03/23 09:08 Dose: 81 mg Atorvastatin Calcium (Atorvastatin 10 Mg Tablet) 10 mg PO QHS [facility] Stop: 09/01/24 21:59 Last Admin: 09/02/23 22:50 Dose: 10 mg Bisacodyl (Bisacodyl 10 Mg Supp.Rect) 10 mg LA DAILY PRN PRN Reason: Constipation Stop: 09/01/24 14:56 Cefadroxil (Cefadroxil 500 Mg Capsule) 500 mg PO BID [facility] Last Admin: 09/03/23 09:08 Dose: 500 mg Diclofenac Sodium (Diclofenac Sodium 1% Gel 100 Gm Tube) 2 gm TOPICAL QID [facility] Stop: 09/01/24 17:59 Last Admin: 09/03/23 09:09 Dose: 2 gm Docusate Sodium (Docusate 100 Mg Capsule) 100 mg PO BID PRN PRN Reason: Constipation Stop: 09/01/24 14:56 Docusate Sodium (Docusate Enema 283 Mg/5 Ml Enema) 283 mg LA DAILY PRN PRN Reason: Constipation Stop: 09/01/24 14:56 Enoxaparin Sodium (Enoxaparin 40 Mg/0.4 Ml Syringe) 40 mg SUBCUT DAILY@1000 [facility] Stop: 09/02/24 10:34 Home Med (Home Meds Kept In Pharmacy) 1 each MISCELLANE PRN PRN PRN Reason: zz.Pharmacy Note Stop: 09/01/24 23:29 Lactulose (Lactulose 20 Gm/30 Ml Udc) 30 gm PO DAILY PRN PRN Reason: Constipation Stop: 09/01/24 14:56 Losartan Potassium (Losartan 25 Mg Tablet) 25 mg PO QAM [facility] Stop: 09/02/24 08:59 Last Admin: 09/03/23 09:08 Dose: 25 mg Metoprolol Succinate (Metoprolol Succinate 25 Mg Tab.Er.24h) 25 mg PO QPM [facility] Stop: 09/01/24 20:59 Last Admin: 09/02/23 22:50 Dose: 25 mg Multivitamins (Multivitamin 1 Tab Tablet) 1 tab PO DAILY [facility] Stop: 09/02/24 08:59 Last Admin: 09/03/23 09:08 [...] 17 Gm Powd.Pack) 17 gm PO DAILY [facility] Stop: 09/02/24 08:59 Last Admin: 09/03/23 09:11 Dose: Not Given Prednisone (Prednisone 10 Mg Tablet) 10 mg PO DAILY [facility] Stop: 09/02/24 08:59 Last Admin: 09/03/23 09:08 [...] (1,000 Units) Tablet) 50 mcg PO DAILY [facility] Stop: 09/02/24 08:59 Last Admin: 09/03/23 09:08 Dose: 50 mcg Vitamin E (Vitamin E (Dl Tocopheryl Acet) 180 Mg (400 Units) Capsule) 180 mg PODAILY [facility] Stop: 09/02/24 08:59 Last Admin: 09/03/23 09:08 Dose: 180 mg Zolpidem Tartrate (Zolpidem 10 Mg Tablet) 10 mg PO QHS [facility] Stop: 02/29/24 21:59 Last Admin: 09/02/23 22:50 [...] % (Auto) 76.7 Lymph % (Auto) 10.7 Love % (Auto) 11.5 Eos % (Auto) 0.8 Baso % (Auto) 0.3 Nucleat RBC Rel Count 0.0 Neut # (Auto) 6.0 Lymph # (Auto) 0.8 L Love # (Auto) 0.9 H Eos # (Auto) [...] 7 Days Expected Discharge Destination: Home Rehabilitation IGC: 8.61 Primary Diagnosis: as above Patient?s/Family?s anticipated [...] 24 hour daily monitoring and intervention from Tongue [employer]er as well as other consulting physicians including internal medicine as well as 24 hour daily line lead nursing - for medical safe / optimal [...] equipment to enhance the patient's a functional scientology Ensure adequate nutrition and hydration Sleep: No issues Pain: Continue current regimen for now Discharge planning: Home alone in about a week. I spent 44 minutes for services, including [id number] encounter with the patient, discussion of the case, plan of care, and exam; and [id number] activities, such as reviewing pertinent bi consultant documentation, recent therapynotes, laboratory and radiology studies, and discussion of case with care team including physician, nursing, caser shoe parts, and therapists. More than 50 % of time was spent on patient/family counseling or coordination ofcare. Patient was personally seen by me, Dr. Mayers, on the day of encounter, within 24 hours of rehab admission, reviewed the history and the relevant portions of the chart, including current orders, allied health and bi consultant notes, labs/imaging and performed timmons elements of exam and I formulated the planof care and facilitated the medical decision making. I completed a substantive portion of this encounter, the medical decision makingportion of this note in its entirety, including Allied health note review, nursing note review, bi consultant note review, discussion with nursing and [...] signed by Elijah Mayers MD> 09/03/23 1437 [facility] Work Phone: 1(887) 579-335502-02-2024 Evaluation note* Encounter Date Diagnosis Assessment Notes [...] DVT, acute blood loss anemia and infection. [facility] Other 01-24-2024 Evaluation note* Encounter Date Diagnosis Assessment Notes Treatment Notes Treatment Clinical Notes Jun, Primary osteoarthritis of right knee (ICD-10 - M17.11) Jun, Other detention (current) drug therapy (ICD-10 - Z79.899) Jun, Other osteoporosis without current pathological fracture (ICD-10 - M81.8) [facility] Other 01-10-2024 Evaluation note* Encounter Date Diagnosis [...] would likely benefit from acute inpatient rehab. [facility] Other 12-08-2023 Evaluation note* Encounter Date Diagnosis [...] Cleanse w/ soap and water. Mupirocin bid [facility] Other 11-27-2023 Evaluation note* Encounter Date Diagnosis [...] AHA diet plan. Continue secondary prevention measures. [facility] Other 11-22-2023 Evaluation note* Encounter Date Diagnosis [...] and or her pain management office in [place] to get that left hip injected with [...] L TKA by [facility] in 2013 with [facility] Other 11-21-2023 Evaluation note* Encounter Date Diagnosis [...] are maintaining regular scheduled appts with their owner oral surgeon. Apr, Generalized anxiety disorder (ICD-10 - F41.1) [...] 50% narrowing Continue ASA and Statin therapy. [facility] Other 05-09-2023 NoteCONSULTATION CONSULTATION DATE: 11/05/2022 TO: [...] our patients to inform us about any ydmh-khe-tldporh medications or herbal remedies/nutritional supplements/alternative remedies. 2. [...] treatment options with their primary care provider.[id number] Evaluation note * Encounter Date Diagnosis Assessment [...] are maintaining regular scheduled appts with their owner oral surgeon. No bleeding complications Sep, Generalized anxiety disorder (ICD-10 - F41.1) Healthy diet, exercise and keep active Sep, Hyperlipidemia type II (ICD-10 - E78.01) Diet and exercise with continued statin therapy. Sep, Primary osteoarthritis of both knees (ICD-10 - M17.0) Quad exercises, ice/heat and Tylenol Orthopedics referring to Pain Management Discussed opiates: Tramadol doesn't help, declines [place] Sep, Bilateral carotid bruits (ICD-10 - R09.89) Carotid US: 50-60% B/L 2018 Carotid US: < 50% 08/2021 < 50% stenosis Continue primary prevention measures Sep, Precordial pain (ICD-10 - R07.2) Sep, High risk medication use (ICD-10 - Z79.899) [facility] Other 04-11-2023 Evaluation note* Encounter Date Diagnosis Assessment Notes Treatment Notes Treatment Clinical Notes Sep, Acute bronchitis due to other specified organisms (ICD-10 - J20.8) Instructed to use Robitussin or Mucinex for cough, saline or Flonase NS for congestion, Tylenol for pain and fever. Sep, ASHD (arteriosclerotic heart disease) (ICD-10 - I25.10) Avoid use of decongestants w/ OTC medications [facility] Other 01-25-2023 Evaluation note* Encounter Date Diagnosis [...] use of Tylenol, Glucosamine and IA injections. [place] [facility] Other Evaluation noteNo InformationNortLower [facility] Other Evaluation note* Diagnosis Onset Date Resolution Status Primary osteoarthritis of right knee acute [facility] Work Phone: Evaluation note* Diagnosis Onset [...] Status post total right knee replacement acute [facility] Work Phone: Evaluation note* Diagnosis Onset Date Resolution Status Primary osteoarthritis of right knee acute Acute sinusitis noneactive ASHD (arteriosclerotic heart disease) acute Primary osteoarthritis of right knee acute ASHD (arteriosclerotic heart disease) acute Elevated cholesterol acute Acute sinusitis noneactive Acute blood loss anemia none active Aftercare following right kn ee joint replacement surgery acute [facility] Work Phone: Evaluation note* Diagnosis Onset Date Resolution Status Acute sinusitis noneactive ASHD (arteriosclerotic heart disease) acute Primary osteoarthritis of right knee acute ASHD (arteriosclerotic heart disease) acute Elevated cholesterol acute Acute sinusitis noneactive Acute blood loss anemia none active Aftercare following right kn ee joint replacement surgery acute Aftercare following right kn ee joint replacement surgery acute [facility] Work Phone: evaluation noteNo assessment information available [facility] Work Phone: evaluation note* Diagnosis Onset Date Resolution Status ASHD (arteriosclerotic heart disease) acute Elevated cholesterol acute GERD (gastroesophageal reflux disease) acute Primary hypertension acute Screening mammography declined acute Medicare annual wellness visit, subsequent noneactive [facility] Work Phone: Evaluation note* Diagnosis Tinea pedis of left foot- Primary Pain due to onychomycosis of toenails of both feet Hallux rigidus of right foot Hav (hallux abducto valgus), left documented in this encounter [facility] Diagnosis Onset Date Resolution Status [...] acute Primary osteoarthritis of left hip acute [facility] Work Phone: evaluation note* Diagnosis Early dry stage nonexudative age-related macular degeneration of both eyes- Primary PCO (posterior capsular opacification), bilateral Unspecified after-cataract Dry eyes Unspecified tear film insufficiency Blepharitis of upper and lower eyelids of both eyes, unspecified type documented [facility] this encounter [facility] Diagnosis Tinea pedis of left foot- Primary Pain due to onychomycosis of toenails of both feet Hav (hallux abducto valgus), left documented in this encounter [facility]* Diagnosis Other seborrheic dermatitis- Primary Lentigines Neoplasm of unspecified behavior of bone, soft tissue, and skin Actinic keratosis documented in this encounter [facility]* Diagnosis Tinea pedis of left foot- Primary Pain due to onychomycosis of toenails of both feet Hav (hallux abducto valgus), left Hallux rigidus of right foot documented in this encounter [facility] HealthcareHistory general Narrative - Reported* Type Description Date [...] Surgical History cholecystectomy Surgical History left TKA [facility] Other History general Narrative - Reported* Type [...] left TKA Hospitalization History see surgical history [facility] Other Summary Purpose Family History No Family [...] RTK Pre Op Sinuses, Cough, Sore Throat- [phone] Knee Pain Knee Pain Knee Pain Right [...] RTK Pre Op Sinuses, Cough, Sore Throat- [phone] Knee Pain Knee Pain Knee Pain Right Knee Osteoarthritis s/p TKA Right Knee Osteoarthritis s/p TKA Right Knee Osteoarthritis s/p TKA Right Knee Osteoarthritis s/p TKA Right Knee Osteoarthritis s/p TKA Right Knee Osteoarthritis s/p TKA Amb Documentation [facility] Rehab Discharge Follow Up Z47.1 - Aftercare following joint replacement surg 4 WK RECHECK Reason for Visit Primary osteoarthrit is of right knee Acute sinusitis ASHD (arteriosclerotic heart disease) Primary osteoarthritis of right knee ASHD (arteriosclerotic heart disease) Elevated cholesterol Acute sinusitis Acute blood loss anemia Aftercare following right knee joint replacement surgery Chief Complaint Sinuses, Cough, Sore Throat- [phone] Knee Pain Knee Pain Knee Pain Right Knee Osteoarthritis s/p TKA Right Knee Osteoarthritis s/p TKA Right Knee Osteoarthritis s/p TKA Right Knee Osteoarthritis s/p TKA Right Knee Osteoarthritis s/p TKA Right Knee Osteoarthritis s/p TKA Amb Documentation [facility] Rehab Discharge Follow Up Z47.1 - Aftercare [...] 4 Month Follow Up - Flu Shot 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 Lt Knee Pain Update Xrays Per [facility] [place] M25.562 Follow Up F/U From Lt [...] :08pm presurgical clearance, left total hip, d yordan Pichardo June 08, 2024 2:08pm sore throat June [...] presurgical clearance, left total hip, d r [place] June 08, 2024 2:08pm sore throat June 24, 2024 9:42am H&P LTHA-INPT July 08, 2024 7: 56am Hip pain July 08, 2024 8: 45am Chief Complaint Admit Date cold symptoms April 15, 2024 1 1:33am 2 MONTHS April 29, 2024 1 2:48pm M81.0 Z79.899 May 05, 2024 2 :08pm presurgical clearance, left total hip, d r [place] June 08, 2024 2:08pm sore throat June 24, 2024 9:42am H&P LTHA-INPT July 08, 2024 7: 56am Hip pain July 08, 2024 8: 45am Prolonged July 09, 2024 7 :23am Chief Complaint Admit Date 2 MONTHS April 29, 2024 1 2:48pm M81.0 Z79.899 May 05, 2024 2 :08pm presurgical clearance, left total hip, d r [place] June 08, 2024 2:08pm sore throat June [...] 24, 2024 9:42am ASHD (arteriosclerotic heart disease) cember 2023 9:42am Primary osteoarthritis of left [...] presurgical clearance, left total hip, d r [place] June 08, 2024 2:08pm sore throat June [...] presurgical clearance, left total hip, d r [place] June 08, 2024 2:08pm sore throat June [...] 4:57pm Primary osteoarthritis of left hip Febru [email or web address] 2:51pm S/P total left hip arthroplasty August 09, 2024 2:51pm Chief Complaint Admit Date presurgical clearance, left total hip, d r [place] June 08, 2024 2:08pm sore throat June [...] POST OP LTHA August 09, 2024 2:51pm [facility] rehab f/u, left total hip August 16, 2024 1:25pm Reason for Visit Admit Date ASHD (arteriosclerotic heart disease) 2023 2:08pm Carotid stenosis, left June 08 2:08pm Elevated cholesterol June 08, 2024 2:08pm Primary hypertension June 08, 2024 2:08pm Primary osteoarthritis of left hip Decem lauryn 2023 2:08pm GERD (gastroesophageal reflux disease) D ecember 2023 2:08pm Preop exam for internal medicine [facility] 2023 2:08pm ASHD (arteriosclerotic heart disease) 2023 9:42am Acute sinusitis June 24, 2024 9:42am Primary osteoarthritis of left hip Junua ry 2024 7:56am Primary osteoarthritis of left hip Junua ry 2024 8:05am S/P total left hip [...] :57pm Primary osteoarthritis of left hip Febru [email or web address] 2:51pm S/P total left hip arthroplasty August 09, 2024 2:51pm ASHD (arteriosclerotic heart disease) Fe bruary 2024 1:25pm Chest wall mass August 16, 2024 1:25pm Elevated cholesterol August 16, 2024 1:25pm Obesity August 16, 2024 1:25pm Primary hypertension August 16, 2024 1:25pm S/P total left hip arthroplasty August 16, 2024 1:25pm Acute blood loss anemia August 16, 2 025 1:25pm Chief Complaint Admit Date sore throat June 24, 2024 9:42am H&P [...] POST OP LTHA August 09, 2024 2:51pm [facility] rehab f/u, left total hip August 16, 2024 1:25pm 4 WK RECHECK LTHA September 02, 2024 1:38 pm Z96.642 - Presence of left artificial hi p joint September 02, 2024 1:40pm Reason for Visit Admit Date ASHD (arteriosclerotic heart disease) De cember 2023 9:42am Acute sinusitis June 24, 2024 9:42am Primary osteoarthritis of left hip Junua ry 2024 7:56am Primary osteoarthritis of left hip Junua ry 2024 8:05am S/P total left hip [...] 1:25pm Acute blood loss anemia August 16 1:25pm S/P total left hip arthroplasty August 1:38pm Additional Source Comments INFORMATION SOURCE (unrecogn ized section and content) DATE CREATED AUTHOR 03/21/2021 [facility] DATE CREATED AUTHOR AUTHOR'S ORGANIZ ATION 12/06/2022 [facility] [place] [facility] DATE CREATED AUTHOR AUTHOR'S ORGANIZ ATION 09/05/2024 [facility] DATE CREATED AUTHOR AUTHOR'S ORGANIZ ATION 09/13/2024 [facility] DATE CREATED AUTHOR AUTHOR'S ORGANIZ ATION 11/13/2024 [facility] dical Specialists EPIC REASON FOR VISIT (unrecogniz ed section and content) Reason Comments Toenail Care Non dm nial care Reason Comments Skin Check Follow-up Reason Comments Toenail Care Non dm nail care Reason Comments Eye Exam Reason Comments Toenail Care Non DM Nails Lab resultsPre-Op ClearanceF/U FROM LT HIP JOINT INJECTION ALSO RECHECK RIGHT KNEE WANTS TO [id number] coldATB wantedNP LT KNEE PAIN UPDATE XRAYS PER [facility], SCHED AUTH APPROVED PREVIOUS TKA4 month Follow upPT order3 month Follow upSinus Infection/Cough-COVID Negative [phone] Care Teams (unrecognized sec tion and content) Team Status: Active Member Role Status Dates Odell Harrington DO Primary Care Provider Active Team Status: Inactive Member Role Status Dates Odell Harrington DO Attending Provider Active Sta rt: June 06, 2023 End: June 06, 2023 Team Status: Inactive Member Role Status Armand Pichardo II, MD Attending Provider Active Start: [...] Anne Ha RN Other Provider Active Start: 2023 End: September 02, 2023 Bernie Bell RN Other Provider Active Star t: September 01, 2023 End: September 02, 2023 Cecelia Salmons , RN Other Provider Active Start : September 01, 2023 End: September 02, 2023 Zina Kunz RN Other Provider Active Start: [facility] 2023 End: September 02, 2023 Carline Cardozo RN Other Provider Active Start: [facility] 2023 End: September 02, 2023 Annalisa Gar MD Other Provider Active Start: September 01, 2023 End: September 02, 2023 Foster Santiago MD Other Provider Active Start: [facility] 2023 End: September 02, 2023 [...] September 01, 2023 End: September 02, 2023 ePri Grubbs MD Other Provider Active Start : September 01, 2023 End: September 02, 2023 Raymond Hilton MD Other Provider Active Start: [facility] 2023 End: September 02, 2023 Patricia Mayberry APRN Other Provider Active Start: September 01, 2023 End: September 02, 2023 Warren Mera MD Other Provider Active Start: September 01, 2023 End: September 02, 2023 Flavio Woods MD Other Provider Active Start: [facility] 2023 End: September 02, 2023 Saud Zuniga MD Other Provider Active Start: September 01, 2023 End: September 02, 2023 Benjamin Plasencia MD Other Provider Active Start: September 01, 2023 End: September 02, 2023 Roger Carranza DO Other Provider Active Start: September 01, 2023 End: September 02, 2023 Ricardo Souza MD Other Provider Active Start: [facility] 2023 End: September 02, 2023 Allen Andres MD Other Provider Active Start: [facility] 2023 End: September 02, 2023 GERRY Mendoza Other Provider Active St art: September 01, 2023 End: September 02, 2023 Sloane Martin APRN Other Provider Active Star t: September 01, 2023 End: September 02, 2023 Huy Rosenbaum MD Other Provider Active Start: September 01, 2023 End: September 02, 2023 Augie Ontiveros MD Other Provider Active Start: [facility] 2023 End: September 02, 2023 Lc Lima MD Other Provider Active Start: [facility] 2023 End: September 02, 2023 Mati Alberto MD Other Provider Active Star t: September 01, 2023 End: September 02, 2023 Farhan Smith MD Other Provider Active Start: [facility] 2023 End: September 02, 2023 Rakel Regan , Other Provider Active Start: [facility] 2023 End: September 02, 2023 Silverio Irizarry , Other Provider Active [...] Tushar Cohen MD Other Provider Active Start: [facility] 2023 End: September 02, 2023 [...] End: September 02, 2023 Martina Thakkar , RN Other Provider Active Start: [facility] 2023 End: September 02, 2023 Dilip Laird MD Other Provider Active Start: [facility] 2023 End: September 02, 2023 Team Status: Active Member Role Status Dates Odell Harrington DO Primary Care Provider Active Start: September 01, 2023 Magno Pichardo II, MD Admit Provider, Other Provider Active Start: September 01, 2023 Ana Berry RN Other Provider Active Star t: September 01, 2023 Nuha Mcmahan RN Other Provider Active Start : September 01, 2023 Anne Ha RN Other Provider Active Start: [facility] 2023 Bernie Bell RN Other Provider Active Star t: September 01, 2023 Cecelia Villegas RN Other Provider Active Start : September 01, 2023 Zina Kunz RN Other Provider Active Start: [facility] 2023 Carline Cardozo RN Other Provider Active Start: [facility] 2023 Annalisa Gar MD Other Provider Active Start: September 01, 2023 Foster Santiago MD Other Provider Active Start: [facility] 2023 Lulú Garcia APRN Other [...] Raymond Hilton MD Other Provider Active Start: [facility] 2023 Patricia Mayberry APRN Other Provider Active Start: September 01, 2023 Warren Mera MD Other Provider Active Start: September 01, 2023 Flavio Woods MD Other Provider Active Start: [facility] 2023 Saud Zuniga MD Other Provider Active Start: September 01, 2023 Benjamin Plasencia MD Other Provider Active Start: September 01, 2023 Roger Carranza DO Other Provider Active Start: September 01, 2023 Ricardo Souza MD Other Provider Active Start: [facility] 2023 Allen Andres MD Other Provider Active Start: [facility] 2023 Lashonda Earl , WIRELESS CONSTRUCTION MANAGER-C Other Provider Active St art: September 01, 2023 Sloane Martin APRN Other Provider Active Star t: September 01, 2023 Huy Rosenbaum MD Other Provider Active Start: September 01, 2023 Augie Ontiveros MD Other Provider Active Start: [facility] 2023 Lc Lmia MD Other Provider Active Start: [facility] 2023 Mati Alberto MD Other Provider Active Star t: September 01, 2023 Farhan Smith MD Other Provider Active Start: [facility] 2023 Rakel Regan , DO Other Provider Active Start: [facility] 2023 Silverio Irizarry , DO Other [...] Tushar Cohen MD Other Provider Active Start: [facility] 2023 Vidal Akins MD Other Provider Active S tart: September 01, 2023 Aiden Stoll , Other Provider Active Star t: September 01, 2023 Lucas Carrillo , Other Provider Active Start: September 01, 2023 Jordy Lima MD Other Provider Active Start: September 01, 2023 Martina Thakkar RN Other Provider Active Start: [facility] 2023 Dilip Laird MD Other Provider Active Start: [facility] 2023 Team Status: Active Member Role Status Dates Odell Harrington DO Primary Care Provider Active Start: September 02, 2023 Magno Pichardo II, MD Admit Provider, Other Provider Active Start: September 02, 2023 Ana Berry RN Other Provider Active Star t: September 02, 2023 Nuha Mcmahan RN Other Provider Active Start : September 02, 2023 Anne Ha RN Other Provider Active Start: [facility] 2023 Bernie Bell RN Other Provider Active Star t: September 02, 2023 Cecelia Villegas RN Other Provider Active Start : September 02, 2023 Zina Kunz RN Other Provider Active Start: [facility] 2023 Carline Cardozo RN Other Provider Active Start: [facility] 2023 Annalisa Gar MD Other Provider Active Start: September 02, 2023 Foster Santiago MD Other Provider Active Start: [facility] 2023 Lulú Garcia APRN Other [...] Raymond Hilton MD Other Provider Active Start: [facility] 2023 Patricia Mayberry APRN Other Provider Active Start: September 02, 2023 Warren Mera MD Other Provider Active Start: September 02, 2023 Flavio Woods MD Other Provider Active Start: [facility] 2023 Saud Zuniga MD Other Provider Active Start: September 02, 2023 Benjamin Plasencia MD Other Provider Active Start: September 02, 2023 Roger Carranza DO Other Provider Active Start: September 02, 2023 Ricardo Souza MD Other Provider Active Start: [facility] 2023 Allen Andres MD Other Provider Active Start: [facility] 2023 GERRY Mendoza Other Provider Active St art: September 02, 2023 Sloane Martin APRN Other Provider Active Star t: September 02, 2023 Huy Rosenbaum MD Other Provider Active Start: September 02, 2023 Augie Ontiveros MD Other Provider Active Start: [facility] 2023 Lc Lima MD Other Provider Active Start: [facility] 2023 Mati Alberto MD Other Provider Active Star t: September 02, 2023 Farhan Smith MD Other Provider Active Start: [facility] 2023 Rakel Regan , DO Other Provider Active Start: [facility] 2023 Silverio Irizarry , DO Other Provider Active Start : September 02, 2023 Jean-Pierre Mariee , DO Other Provider Active Sta rt: September 02, 2023 Carol Holland , CHASITY Other Provider Active Start: September 02, 2023 Pj Knapp , DO Other Provider Active Start: September 02, 2023 Paula Ramirez MD Other Provider Active Sta rt: September 02, 2023 Antonella Moore APRN Other Provider Active Start : September 02, 2023 Chetna Zaragoza , ADJUNCT WRITING INSTRUCTOR Other Provider Active St art: September 02, 2023 Tushar Cohen MD Other Provider Active Start: [facility] 2023 Vidal Akins MD Other Provider Active S tart: September 02, 2023 Aiden Stoll , DO Other Provider Active Star t: September 02, 2023 Lucas Carrillo , DO Other Provider Active Start: September 02, 2023 Jordy Lima MD Other Provider Active Start: September 02, 2023 Martina Thakkar , GLO Other Provider Active Start: [facility] 2023 Dilip Laird MD Attending Provider, Other Provider Active Start: September 02, 2023 Team Status: Inactive Member Role Status Dates Odell Harrington , Primary Care Provider Active Start: September 02, 2023 End: September 15, 2023 Elijah Mayers MD Admit Provid er, Attending Provider Active Start: September 02, 2023 End: September 15, 2023 Ana Berry , GOL Other Provider Active Star t: September 02, 2023 End: September 15, 2023 Nuha Mcmahan , GLO Other Provider Active Start : September 02, 2023 End: September 15, 2023 Anne Ha , GLO Other Provider Active Start: [facility] 2023 End: September 15, 2023 Bernie Bell RN Other Provider Active Star t: September 02, 2023 End: September 15, 2023 Cecelia Villegas RN Other Provider Active Start : September 02, 2023 End: September 15, 2023 Zina Kunz , GLO Other Provider Active Start: [facility] 2023 End: September 15, 2023 Carline Cardozo RN Other Provider Active Start: [facility] 2023 End: September 15, 2023 Annalisa Gar MD Other Provider Active Start: September 02, 2023 End: September 15, 2023 Foster Santiago MD Other Provider Active Start: [facility] 2023 End: September 15, 2023 [...] Raymond Hilton MD Other Provider Active Start: [facility] 2023 End: September 15, 2023 Patricia Mayberry APRN Other Provider Active Start: September 02, 2023 End: September 15, 2023 Warren Mera MD Other Provider Active Start: September 02, 2023 End: September 15, 2023 Flavio Woods MD Other Provider Active Start: [facility] 2023 End: September 15, 2023 Saud Zuniga MD Other Provider Active Start: September 02, 2023 End: September 15, 2023 Benjamin Plasencia MD Other Provider Active Start: September 02, 2023 End: September 15, 2023 Roger Carranza DO Other Provider Active Start: September 02, 2023 End: September 15, 2023 Ricardo oSuza MD Other Provider Active Start: [facility] 2023 End: September 15, 2023 Allen Andres MD Other Provider Active Start: [facility] 2023 End: September 15, 2023 Lashonda Earl NP-C Other Provider Active St art: September 02, 2023 End: September 15, 2023 Sloane Martin APRN Other Provider Active Star t: September 02, 2023 End: September 15, 2023 Huy Rosenbaum MD Other Provider Active Start: September 02, 2023 End: September 15, 2023 Augie Ontiveros MD Other Provider Active Start: [facility] 2023 End: September 15, 2023 Lc Lima MD Other Provider Active Start: [facility] 2023 End: September 15, 2023 Mati Alberto MD Other Provider Active Star t: September 02, 2023 End: September 15, 2023 Farhan Smith MD Other Provider Active Start: [facility] 2023 End: September 15, 2023 Rakel Regan DO Other Provider Active Start: [facility] 2023 End: September 15, 2023 Silverio [...] Tushar Cohen MD Other Provider Active Start: [facility] 2023 End: September 15, 2023 Vidal Akins MD Other Provider Active S tart: September 02, 2023 End: September 15, 2023 Aiden Stoll , Other Provider Active Star t: September 02, 2023 End: September 15, 2023 Jordy Lima MD Other Provider Active Start: September 02, 2023 End: September 15, 2023 Martina Thakkar RN Other Provider Active Start: [facility] 2023 End: September 15, 2023 [...] Ha , GLO Other Provider Active Start: [facility] 2023 Bernie Bell , GLO Other Provider Active Star t: September 03, 2023 Cecelia Villegas , GLO Other Provider Active Start : September 03, 2023 Zina Kunz , GLO Other Provider Active Start: [facility] 2023 Carline Cardozo , GLO Other Provider Active Start: [facility] 2023 Annalisa Gar MD Other Provider Active Start: September 03, 2023 Foster Santiago MD Other Provider Active Start: [facility] 2023 Lulú Garcia APRN Other [...] Raymond Hilton MD Other Provider Active Start: [facility] 2023 Patricia Mayberry APRN Other Provider Active Start: September 03, 2023 Warren Mera MD Other Provider Active Start: September 03, 2023 Flavio Woods MD Other Provider Active Start: [facility] 2023 Saud Zuniga MD Other Provider Active Start: September 03, 2023 Benjamin Plasencia MD Other Provider Active Start: September 03, 2023 Roger Carranza DO Other Provider Active Start: September 03, 2023 Ricardo Souza MD Other Provider Active Start: [facility] 2023 Allen Andres MD Other Provider Active Start: [facility] 2023 Lashonda Earl NP-C Other Provider Active St art: September 03, 2023 Sloane Martin APRN Other Provider Active Star t: September 03, 2023 Huy Rosenbaum MD Other Provider Active Start: September 03, 2023 Augie Ontiveros MD Other Provider Active Start: [facility] 2023 Lc Lima MD Other Provider Active Start: [facility] 2023 Mati Alberto MD Other Provider Active Star t: September 03, 2023 Farhan Smith MD Other Provider Active Start: [facility] 2023 Rakel Regan , Other Provider Active Start: [facility] 2023 Silverio Irizarry , DO Other [...] Tushar Cohen MD Other Provider Active Start: [facility] 2023 Vidal Akins MD Other Provider Active S tart: September 03, 2023 Aiden Stoll , Other Provider Active Star t: September 03, 2023 Lucas Carrillo DO Other Provider Active Start: September 03, 2023 Jordy Lima MD Other Provider Active Start: September 03, 2023 Martina Thakkar RN Other Provider Active Start: [facility] 2023 Heidi Mesa APRN Attending Provider Active Start: September 03, 2023 Team Status: Active Member Role Status Armand Harrington DO Primary Care Provider Active Start: September 03, 2023 Elijah Mayers MD Admit Provid er, Other Provider Active Start: September 03, 2023 Ana Berry RN Other Provider Active Star t: September 03, 2023 Nuha Mcmahan RN Other Provider Active Start : September 03, 2023 Anne Ha , GLO Other Provider Active Start: [facility] 2023 Bernie Bell RN Other Provider Active Star t: September 03, 2023 Cecelia Villegas RN Other Provider Active Start : September 03, 2023 Zina Kunz RN Other Provider Active Start: [facility] 2023 Carline Cardozo RN Other Provider Active Start: [facility] 2023 Annalisa Gar MD Other Provider Active Start: September 03, 2023 Foster Santiago MD Other Provider Active Start: [facility] 2023 Lulú Garcia APRN Other [...] Raymond Hilton MD Other Provider Active Start: [facility] 2023 Patricia Mayberry APRN Other Provider Active Start: September 03, 2023 Warren Mera MD Other Provider Active Start: September 03, 2023 Flavio Woods MD Other Provider Active Start: [facility] 2023 Saud Zuniga MD Other Provider Active Start: September 03, 2023 Benjamin Plasencia MD Other Provider Active Start: September 03, 2023 Roger Carranza DO Other Provider Active Start: September 03, 2023 Ricardo Souza MD Other Provider Active Start: [facility] 2023 Allen Andres MD Other Provider Active Start: [facility] 2023 Lashonda Earl NP-Magaly Other Provider Active St art: September 03, 2023 Sloane Martin APRN Other Provider Active Star t: September 03, 2023 Huy Rosenbaum MD Other Provider Active Start: September 03, 2023 Augie Ontiveros MD Other Provider Active Start: [facility] 2023 Lc Lima MD Other Provider Active Start: [facility] 2023 Mati Alberto MD Other Provider Active Star t: September 03, 2023 Farhan Smith MD Other Provider Active Start: [facility] 2023 Rakel Regan , Other Provider Active Start: [facility] 2023 Silverio Irizarry , Other Provider Active Start : September 03, 2023 Jean-Pierre M Miniaci , DO Other [...] Tushar Cohen MD Other Provider Active Start: [facility] 2023 Vidal Akins MD Other Provider Active S tart: September 03, 2023 Aiden Stoll , DO Other Provider Active Star t: September 03, 2023 Lucas Carrillo DO Other Provider Active Start: September 03, 2023 Jordy Lima MD Other Provider Active Start: September 03, 2023 Martina Thakkar RN Other Provider Active Start: [facility] 2023 Team Status: Active Member [...] Ha , GLO Other Provider Active Start: [facility] 2023 Bernie Bell , GLO Other Provider Active Star t: September 10, 2023 Cecelia Villegas , GLO Other Provider Active Start : September 10, 2023 Zina Kunz , GLO Other Provider Active Start: [facility] 2023 Carline Cardozo , GLO Other Provider Active Start: [facility] 2023 Annalisa Gar MD Other Provider Active Start: September 10, 2023 Foster Santiago MD Other Provider Active Start: [facility] 2023 Lulú Garcia APRN Other [...] Raymond Hilton MD Other Provider Active Start: [facility] 2023 Patricia Mayberry APRN Other Provider Active Start: September 10, 2023 Warren Mera MD Other Provider Active Start: September 10, 2023 Flavio Woods MD Other Provider Active Start: [facility] 2023 Saud Zuniga MD Other Provider Active Start: September 10, 2023 Benjamin Plasencia MD Other Provider Active Start: September 10, 2023 Roger Carranza DO Other Provider Active Start: September 10, 2023 Ricardo Souza MD Other Provider Active Start: [facility] 2023 Allen Andres MD Other Provider Active Start: [facility] 2023 Lashonda Earl , WIRELESS CONSTRUCTION MANAGER-C Other Provider Active St art: September 10, 2023 Sloane Martin APRN Other Provider Active Star t: September 10, 2023 Huy Rosenbaum MD Other Provider Active Start: September 10, 2023 Augie Ontiveros MD Other Provider Active Start: [facility] 2023 Lc Lima MD Other Provider Active Start: [facility] 2023 Mati Alberto MD Other Provider Active Star t: September 10, 2023 Farhan Smith MD Other Provider Active Start: [facility] 2023 Rakel Regan , Other Provider Active Start: [facility] 2023 Silverio Irizarry , Other Provider [...] Tushar Cohen MD Other Provider Active Start: [facility] 2023 Vidal Akins MD Other Provider Active S tart: September 10, 2023 Aiden Stoll , DO Other Provider Active Star t: September 10, 2023 Lucas Carrillo , DO Other Provider Active Start: September 10, 2023 Jordy Lima MD Other Provider Active Start: September 10, 2023 Martina Thakkar , GLO Other Provider Active Start: [facility] 2023 Team Status: Active Member Role Status Armand Harrington , DO Primary Care Provider Active Start: September 11, 2023 Elijah Mayers MD [facility], Other Provider Active Start: September 11, 2023 Ana Berry RN Other Provider Active Star t: September 11, 2023 Nuha Mcmahan , GLO Other Provider Active Start : September 11, 2023 Anne Ha , GLO Other Provider Active Start: [facility] 2023 Bernie Bell , GLO Other Provider Active Star t: September 11, 2023 Cecelia Villegas , GLO Other Provider Active Start : September 11, 2023 Zina Kunz , GLO Other Provider Active Start: [facility] 2023 Carline Cardozo , GLO Other Provider Active Start: [facility] 2023 Annalisa Gar MD Other Provider Active Start: September 11, 2023 Foster Santiago MD Other Provider Active Start: [facility] 2023 Lulú Garcia APRN Other [...] Raymond Hilton MD Other Provider Active Start: [facility] 2023 Patricia Mayberry APRN Other Provider Active Start: September 11, 2023 Warren Mera MD Other Provider Active Start: September 11, 2023 Flavio Woods MD Other Provider Active Start: [facility] 2023 Saud Zuniga MD Other Provider Active Start: September 11, 2023 Benjamin Plasencia MD Other Provider Active Start: September 11, 2023 Roger Carranza , Other Provider Active Start: September 11, 2023 Ricardo Souza MD Other Provider Active Start: [facility] 2023 Allen Andres MD Other Provider Active Start: [facility] 2023 Lashonda Earl , WIRELESS CONSTRUCTION MANAGER-C Other Provider Active St art: September 11, 2023 Sloane Martin APRN Other Provider Active Star t: September 11, 2023 Huy Rosenbaum MD Other Provider Active Start: September 11, 2023 Augie Ontiveros MD Other Provider Active Start: [facility] 2023 Lc Lima MD Other Provider Active Start: [facility] 2023 Mati Alberto MD Other Provider Active Star t: September 11, 2023 Farhan Smith MD Other Provider Active Start: [facility] 2023 Rakel Regan , Other Provider Active Start: [facility] 2023 Silverio Irizarry , Other Provider [...] Tushar Cohen MD Other Provider Active Start: [facility] 2023 Vidal Akins MD Other Provider Active S tart: September 11, 2023 Aiden Stoll , DO Other Provider Active Star t: September 11, 2023 Lucas Carrillo , DO Other Provider Active Start: September 11, 2023 Jordy Lima MD Other Provider Active Start: September 11, 2023 Martina Thakkar , GLO Other Provider Active Start: [facility] 2023 Magno Pichardo II, MD Attending Provider Active Start: September 11, 2023 Team Status: Active Member Role Status Dates Odell Harrington DO Primary Care Provider Active Start: September 13, 2023 Elijah Mayers MD Admit Provid er, Other Provider Active Start: September 13, 2023 Ana Berry , GLO Other Provider Active Star t: September 13, 2023 Nuha Mcmahan RN Other Provider Active Start : September 13, 2023 Anne Ha , GLO Other Provider Active Start: [facility] 2023 Bernie Bell , GLO Other Provider Active Star t: September 13, 2023 Cecelia Villegas RN Other Provider Active Start : September 13, 2023 Zina Kunz , GLO Other Provider Active Start: [facility] 2023 Carline Cardozo , GLO Other Provider Active Start: [facility] 2023 Annalisa Gar MD Other Provider Active Start: September 13, 2023 Foster Santiago MD Other Provider Active Start: [facility] 2023 Lulú Garcia APRN Other [...] Raymond Hilton MD Other Provider Active Start: [facility] 2023 Patricia Mayberry APRN Attending María packer, Other Provider Active Start: September 13, 2023 Warren Mera MD Other Provider Active Start: September 13, 2023 Flavio Woods MD Other Provider Active Start: [facility] 2023 Saud Zuniga MD Other Provider Active Start: September 13, 2023 Benjamin Plasencia MD Other Provider Active Start: September 13, 2023 Roger Frings , DO Other Provider Active Start: September 13, 2023 Ricardo Souza MD Other Provider Active Start: [facility] 2023 Allen Andres MD Other Provider Active Start: [facility] 2023 Lashonda Earl WIRELESS CONSTRUCTION MANAGER-C Other Provider Active St art: September 13, 2023 Sloane Martin APRN Other Provider Active Star t: September 13, 2023 Huy Rosenbaum MD Other Provider Active Start: September 13, 2023 Augie Ontiveros MD Other Provider Active Start: [facility] 2023 Lc Lima MD Other Provider Active Start: [facility] 2023 Mati Alberto MD Other Provider Active Star t: September 13, 2023 Farhan Smith MD Other Provider Active Start: [facility] 2023 Rakel Regan , Other Provider Active Start: [facility] 2023 Silverio Irizarry , DO Other [...] Tushar Cohen MD Other Provider Active Start: [facility] 2023 Vidal Akins MD Other Provider Active S tart: September 13, 2023 Aiden Stoll , DO Other Provider Active Star t: September 13, 2023 Jordy Lima MD Other Provider Active Start: September 13, 2023 Martina Thakkar RN Other Provider Active Start: [facility] 2023 Team Status: Active Member Role Status Armand Harrington DO Primary Care Provider Active Start: September 03, 2023 End: September 15, 2023 Elijah Mayers MD [facility], Other Provider Active Start: September 03, 2023 End: September 15, 2023 Ana Berry RN Other Provider Active Star t: September 03, 2023 End: September 15, 2023 Nuha Mcmahan , GLO Other Provider Active Start : September 03, 2023 End: September 15, 2023 Anne Ha , GLO Other Provider Active Start: [facility] 2023 End: September 15, 2023 Bernie Bell , GLO Other Provider Active Star t: September 03, 2023 End: September 15, 2023 Cecelia Villegas RN Other Provider Active Start : September 03, 2023 End: September 15, 2023 Zina Kunz , GLO Other Provider Active Start: [facility] 2023 End: September 15, 2023 Carline Cardozo RN Other Provider Active Start: [facility] 2023 End: September 15, 2023 Annalisa Gar MD Other Provider Active Start: September 03, 2023 End: September 15, 2023 Foster Santiago MD Other Provider Active Start: [facility] 2023 End: September 15, 2023 [...] Raymond Hilton MD Other Provider Active Start: [facility] 2023 End: September 15, 2023 Patricia Mayberry APRN Other Provider Active Start: September 03, 2023 End: September 15, 2023 Warren Mera MD Other Provider Active Start: September 03, 2023 End: September 15, 2023 Flavio Woods MD Other Provider Active Start: [facility] 2023 End: September 15, 2023 Saud Zuniga MD Other Provider Active Start: September 03, 2023 End: September 15, 2023 Benjamin Plasencia MD Other Provider Active Start: September 03, 2023 End: September 15, 2023 Roger Carranza DO Other Provider Active Start: September 03, 2023 End: September 15, 2023 Ricardo Souza MD Other Provider Active Start: [facility] 2023 End: September 15, 2023 Allen Andres MD Other Provider Active Start: [facility] 2023 End: September 15, 2023 Lashonda Earl WIRELESS CONSTRUCTION MANAGER-C Other Provider Active St art: September 03, 2023 End: September 15, 2023 Sloane Martin APRN Other Provider Active Star t: September 03, 2023 End: September 15, 2023 Huy Rosenbaum MD Other Provider Active Start: September 03, 2023 End: September 15, 2023 Augie Ontiveros MD Other Provider Active Start: [facility] 2023 End: September 15, 2023 Lc Lima MD Other Provider Active Start: [facility] 2023 End: September 15, 2023 Mati Alberto MD Other Provider Active Star t: September 03, 2023 End: September 15, 2023 Farhan Smith MD Other Provider Active Start: [facility] 2023 End: September 15, 2023 Rakel Regan DO Other Provider Active Start: [facility] 2023 End: September 15, 2023 Silverio [...] Tushar Cohen MD Other Provider Active Start: [facility] 2023 End: September 15, 2023 [...] Martina Thakkar RN Other Provider Active Start: [facility] 2023 End: September 15, 2023 Heidi Mesa APRN Attending Provider Active Start: September 03, 2023 End: September 15, 2023 Team Status: Active Member Role Status Armand Harrington DO Primary Care Provider Active Start: September 03, 2023 End: September 15, 2023 Elijah Mayers MD [facility], Other Provider Active Start: September 03, 2023 End: September 15, 2023 Ana Berry , GLO Other Provider Active Star t: September 03, 2023 End: September 15, 2023 Nuha Mcmahan , GLO Other Provider Active Start : September 03, 2023 End: September 15, 2023 Anne Ha , GLO Other Provider Active Start: [facility] 2023 End: September 15, 2023 Bernie Bell , GLO Other Provider Active Star t: September 03, 2023 End: September 15, 2023 Cecelia Villegas , GLO Other Provider Active Start : September 03, 2023 End: September 15, 2023 Zina Kunz , GOL Other Provider Active Start: [facility] 2023 End: September 15, 2023 Carline Cardozo , GLO Other Provider Active Start: [facility] 2023 End: September 15, 2023 Annalisa Gar MD Other Provider Active Start: September 03, 2023 End: September 15, 2023 Foster Santiago MD Other Provider Active Start: [facility] 2023 End: September 15, 2023 [...] Raymond Hilton MD Other Provider Active Start: [facility] 2023 End: September 15, 2023 Patricia Mayberry APRN Other Provider Active Start: September 03, 2023 End: September 15, 2023 Warren Mera MD Other Provider Active Start: September 03, 2023 End: September 15, 2023 Flavio Woods MD Other Provider Active Start: [facility] 2023 End: September 15, 2023 Saud Zuniga MD Other Provider Active Start: September 03, 2023 End: September 15, 2023 Benjamin Plasencia MD Other Provider Active Start: September 03, 2023 End: September 15, 2023 Roger Carranza DO Other Provider Active Start: September 03, 2023 End: September 15, 2023 Ricardo Souza MD Other Provider Active Start: [facility] 2023 End: September 15, 2023 Allen Andres MD Other Provider Active Start: [facility] 2023 End: September 15, 2023 GERRY Mendoza Other Provider Active St art: September 03, 2023 End: September 15, 2023 Sloane Martin APRN Other Provider Active Star t: September 03, 2023 End: September 15, 2023 Huy Rosenbaum MD Other Provider Active Start: September 03, 2023 End: September 15, 2023 Augie Ontiveros MD Other Provider Active Start: [facility] 2023 End: September 15, 2023 Lc Lima MD Other Provider Active Start: [facility] 2023 End: September 15, 2023 Mati Alberto MD Other Provider Active Star t: September 03, 2023 End: September 15, 2023 Farhan Smith MD Other Provider Active Start: M george 2023 End: September 15, 2023 Rakel Regan , Other Provider Active Start: [facility] 2023 End: September 15, 2023 Silverio [...] Tushar Cohen MD Other Provider Active Start: george 2023 End: September 15, 2023 Vidal [...] Martina Thakkar RN Other Provider Active Start: george 2023 End: September 15, 2023 Team Status: [...] Ha , GLO Other Provider Active Start: [facility] 2023 End: September 15, 2023 Bernie Bell RN Other Provider Active Star t: September 10, 2023 End: September 15, 2023 Cecelia Villegas RN Other Provider Active Start : September 10, 2023 End: September 15, 2023 Zina Kunz , GLO Other Provider Active Start: [facility] 2023 End: September 15, 2023 Carline Cardozo RN Other Provider Active Start: [facility] 2023 End: September 15, 2023 Annalisa Gar MD Other Provider Active Start: September 10, 2023 End: September 15, 2023 Foster Santiago MD Other Provider Active Start: [facility] 2023 End: September 15, 2023 [...] Raymond Hilton MD Other Provider Active Start: [facility] 2023 End: September 15, 2023 Patricia Mayberry APRN Other Provider Active Start: September 10, 2023 End: September 15, 2023 Warren Mera MD Other Provider Active Start: September 10, 2023 End: September 15, 2023 Flavio Woods MD Other Provider Active Start: [facility] 2023 End: September 15, 2023 Saud Zuniga MD Other Provider Active Start: September 10, 2023 End: September 15, 2023 Benjamin Plasencia MD Other Provider Active Start: September 10, 2023 End: September 15, 2023 Roger Carranza DO Other Provider Active Start: September 10, 2023 End: September 15, 2023 Ricardo Souza MD Other Provider Active Start: [facility] 2023 End: September 15, 2023 Allen Andres MD Other Provider Active Start: [facility] 2023 End: September 15, 2023 Lashonda Earl , WIRELESS CONSTRUCTION MANAGER-C Other Provider Active St art: September 10, 2023 End: September 15, 2023 Sloane Martin APRN Other Provider Active Star t: September 10, 2023 End: September 15, 2023 Huy Rosenbaum MD Other Provider Active Start: September 10, 2023 End: September 15, 2023 Augie Ontiveros MD Other Provider Active Start: [facility] 2023 End: September 15, 2023 Lc Lima MD Other Provider Active Start: [facility] 2023 End: September 15, 2023 Mati Alberto MD Other Provider Active Star t: September 10, 2023 End: September 15, 2023 Farhan Smith MD Other Provider Active Start: [facility] 2023 End: September 15, 2023 Rakel Regan DO Other Provider Active Start: [facility] 2023 End: September 15, 2023 Silverio [...] 10, 2023 End: September 15, 2023 Antonella G Moore , ADJUNCT WRITING INSTRUCTOR Other Provider Active Start : September 10, 2023 End: September 15, 2023 Chetna Zaragoza APRN Other Provider Active St art: September 10, 2023 End: September 15, 2023 Tushar Cohen MD Other Provider Active Start: [facility] 2023 End: September 15, 2023 [...] Martina Thakkar RN Other Provider Active Start: [facility] 2023 End: September 15, 2023 Team Status: Active Member Role Status Armand Harrington DO Primary Care Provider Active Start: September 11, 2023 End: September 15, 2023 Elijah Mayres MD Admit Provid er, Other Provider Active Start: September 11, 2023 End: September 15, 2023 Ana Berry , GLO Other Provider Active Star t: September 11, 2023 End: September 15, 2023 Nuha Mcmahan , GLO Other Provider Active Start : September 11, 2023 End: September 15, 2023 Anne Ha , GLO Other Provider Active Start: [facility] 2023 End: September 15, 2023 Bernie Bell , GLO Other Provider Active Star t: September 11, 2023 End: September 15, 2023 Cecelia Villegas , GLO Other Provider Active Start : September 11, 2023 End: September 15, 2023 Zina Kunz , GLO Other Provider Active Start: [facility] 2023 End: September 15, 2023 Carline Cardozo RN Other Provider Active Start: [facility] 2023 End: September 15, 2023 Annalisa Gar MD Other Provider Active Start: September 11, 2023 End: September 15, 2023 Foster Santiago MD Other Provider Active Start: [facility] 2023 End: September 15, 2023 [...] Raymond Hilton MD Other Provider Active Start: [facility] 2023 End: September 15, 2023 Patricia Mayberry APRN Other Provider Active Start: September 11, 2023 End: September 15, 2023 Warren Mera MD Other Provider Active Start: September 11, 2023 End: September 15, 2023 Flavio Woods MD Other Provider Active Start: [facility] 2023 End: September 15, 2023 Saud Zuniga MD Other Provider Active Start: September 11, 2023 End: September 15, 2023 Benjamin Plasencia MD Other Provider Active Start: September 11, 2023 End: September 15, 2023 Roger Carranza DO Other Provider Active Start: September 11, 2023 End: September 15, 2023 Ricardo Souza MD Other Provider Active Start: [facility] 2023 End: September 15, 2023 Allen Andres MD Other Provider Active Start: [facility] 2023 End: September 15, 2023 GERRY Mendoza Other Provider Active St art: September 11, 2023 End: September 15, 2023 Sloane Martin APRN Other Provider Active Star t: September 11, 2023 End: September 15, 2023 Huy Rosenbaum MD Other Provider Active Start: September 11, 2023 End: September 15, 2023 Augie Ontiveros MD Other Provider Active Start: [facility] 2023 End: September 15, 2023 Lc Lima MD Other Provider Active Start: [facility] 2023 End: September 15, 2023 Mati Alberto MD Other Provider Active Star t: September 11, 2023 End: September 15, 2023 Farhan Smith MD Other Provider Active Start: [facility] 2023 End: September 15, 2023 Rakel Regan , Other Provider Active Start: [facility] 2023 End: September 15, 2023 Silverio Irizarry , Other Provider Active Start : September 11, 2023 End: September 15, 2023 Jean-Pierre Mariee , Other Provider Active Sta rt: September 11, [...] Tushar Cohen MD Other Provider Active Start: [facility] 2023 End: September 15, 2023 [...] Martina Thakkar RN Other Provider Active Start: [facility] 2023 End: September 15, 2023 [...] Ha , GLO Other Provider Active Start: [facility] 2023 End: September 15, 2023 Bernie Bell RN Other Provider Active Star t: September 13, 2023 End: September 15, 2023 Cecelia Villegas RN Other Provider Active Start : September 13, 2023 End: September 15, 2023 Zina Kunz , GLO Other Provider Active Start: [facility] 2023 End: September 15, 2023 Carline Cardozo RN Other Provider Active Start: [facility] 2023 End: September 15, 2023 Annalisa Gar MD Other Provider Active Start: September 13, 2023 End: September 15, 2023 Foster Santiago MD Other Provider Active Start: [facility] 2023 End: September 15, 2023 uLlú Garcia APRN Other Provider Active Start: September [...] Raymond Hilton MD Other Provider Active Start: [facility] 2023 End: September 15, 2023 Patricia Mayberry APRN Attending Pr birdie, Other Provider Active Start: September 13, 2023 End: September 15, 2023 Warren Mera MD Other Provider Active Start: September 13, 2023 End: September 15, 2023 Flavio Woods MD Other Provider Active Start: [facility] 2023 End: September 15, 2023 Saud Zuniga MD Other Provider Active Start: September 13, 2023 End: September 15, 2023 Benjamin Plasencia MD Other Provider Active Start: September 13, 2023 End: September 15, 2023 Roger Carranza DO Other Provider Active Start: September 13, 2023 End: September 15, 2023 Ricardo Souza MD Other Provider Active Start: [facility] 2023 End: September 15, 2023 Allen Andres MD Other Provider Active Start: [facility] 2023 End: September 15, 2023 Lashonda Earl NP-C Other Provider Active St art: September 13, 2023 End: September 15, 2023 Sloane Martin APRN Other Provider Active Star t: September 13, 2023 End: September 15, 2023 Huy Rosenbaum MD Other Provider Active Start: September 13, 2023 End: September 15, 2023 Augie Ontiveros MD Other Provider Active Start: [facility] 2023 End: September 15, 2023 Lc Lima MD Other Provider Active Start: [facility] 2023 End: September 15, 2023 Mati Alberto MD Other Provider Active Star t: September 13, 2023 End: September 15, 2023 Farhan Smith MD Other Provider Active Start: [facility] 2023 End: September 15, 2023 Rakel Regan DO Other Provider Active Start: [facility] 2023 End: September 15, 2023 Silverio [...] Tushar Cohen MD Other Provider Active Start: [facility] 2023 End: September 15, 2023 Vidal Akins MD Other Provider Active S tart: September 13, 2023 End: September 15, 2023 Aiden Stoll , DO Other Provider Active Star t: September 13, 2023 End: September 15, 2023 Jordy Lima MD Other Provider Active Start: September 13, 2023 End: September 15, 2023 Martina Thakkar RN Other Provider Active Start: [facility] 2023 End: September 15, 2023 [...] February 19, 2024 End: February 19, 2024 A P Mechanic Relationship Specialty Start Date End Date Odell Harrington MD [address] [place] [address] PCP - General Internal Medicine 01/01/23 A P Mechanic Relationship Specialty Start Date End Date Odell Harrington MD [address] [place] [address] PCP - General Internal Medicine 01/01/23 Team [...] May 05, 2024 End: May 05, 2024 A P Mechanic Relationship Specialty Start Date End Date Odell Harrington MD [address] [place] [address] PCP - General Internal Medicine 01/01/23 A P Mechanic Relationship Specialty Start Date End Date Odell Harrington MD [address] [place] [id number] PCP - General Internal Medicine 01/01/23 Team [...] 2024 End: July 20, 2024 Nuha Mcmahan , GLO Other Provider Active Start : July 19, 2024 End: July 20, 2024 Bernie Bell , GLO Other Provider Active Star t: July 19, 2024 End: July 20, 2024 Zina Kunz , GLO Other Provider Active Start: J anuary 2024 End: July 20, 2024 Carline Cardozo RN Other Provider Active Start: [facility] 2024 End: July 20, 2024 Annalisa Gar [...] Souza MD Other Provider Active Start: [facility] and[facility] 2024 End: July 20, 2024 Allen Andres MD Other Provider Active Start: [facility] 2024 End: July 20, 2024 GERRY Mendoza Other Provider Active St art: July 19, 2024 End: July 20, 2024 Sloane Martin APRN Other Provider Active Star t: July 19, 2024 End: July 20, 2024 Huy Rosenbaum MD Other Provider Active Start: July 19, 2024 End: July 20, 2024 Augie Ontiveros MD Other Provider Active Start: [facility] p[facility] 2024 End: July 20, 2024 Lc Lima MD Other Provider Active Start: [facility] [place] 2024 End: July 20, 2024 Mati Alberto [...] July 19, 2024 End: July 20, 2024 Gnaesh Moreno MD Other Provider Active Start: July 19, 2024 End: July 20, 2024 Joceline García APRN Other Provider Active Star t: July 19, 2024 End: July 20, 2024 Kraig Arteaga MD Other Provider Active Start: uary 2024 End: July 20, 2024 Vitor Everett MD Other Provider Active Start: ary 2024 End: July 20, 2024 Dilip Neal MD Other Provider Active Start: July 19, 2024 End: July 20, 2024 Raymond Lr MD Other Provider Active Start : July 19, 2024 End: July 20, 2024 Javi Redd MD Other Provider Active Start: 2024 End: July 20, 2024 Aisha Sidhu APRN Other Provider Active Sta rt: July 19, 2024 End: July 20, 2024 Shimon Patel APRN Other Provider Active Start: July 19, 2024 End: July 20, 2024 Martina Thakkar RN Other Provider Active Start: uary 2024 End: July 20, 2024 Dilip Laird MD Other Provider Active Start: 2024 End: July 20, 2024 Team Status: Active Member Role Status Dates Odell Harrington DO Primary Care Provider Active Start: July 19, 2024 Magno Pichardo II, MD Attending [facility], Other Provider Active Start: July 19, 2024 Team Status: Active Member Role Status Dates Odell Harrington DO Primary Care Provider Active Start: July 20, 2024 Magno Pichardo II, MD Other Provider Active S tart: July 20, 2024 Ana Berry RN Other Provider Active Star t: July 20, 2024 Nuha Mcmahan RN Other Provider Active Start : July 20, 2024 Bernie Bell , GLO Other Provider Active Star t: July 20, 2024 Zina Kunz RN Other Provider Active Start: uary 2024 Carline Cardozo RN Other Provider Active Start: ary 2024 Annalisa Gar MD Other Provider [...] Provider Active Start: Jun Lashonda Earl , ADRYAN-C Other Provider Active St art: July 20, 2024 Sloane Martin APRN Other Provider Active Star t: July 20, 2024 Huy Rosenbaum MD Other Provider Active Start: July 20, 2024 Augie Ontiveros MD Other Provider Active Start: 2024 Lc Lima MD Other Provider Active Start: Jun Mati Alberto MD Other Provider Active Star t: July 20, 2024 Farhan Smith MD Other Provider Active Start: anuary 2024 Rakel Regan DO Other Provider [...] Vitor Everett MD Other Provider Active Start: nuary 2024 Dilip Neal MD Other Provider Active Start: July 20, 2024 Raymond Lr MD Other Provider Active Start : July 20, 2024 Javi Redd MD Other Provider Active Start: anuary 2024 Aisha Sidhu APRN Other Provider Active Sta rt: July 20, 2024 Shimon Patel APRN Other Provider Active Start: July 20, 2024 Martina Thakkar RN Other Provider Active Start: anuary 2024 Dilip Laird MD Other Provider Active Start: J anuary 2024 Elijah Mayers MD Attending Provider Active Start: July 20, 2024 Team Status: Inactive Member Role Status Armand Harrington DO Primary Care Provider Active Start: July 20, 2024 End: August 02, 2024 Dilip Laird MD Admit Provider, Atte aring Provider Active Start: July 20, 2024 End: August 02, 2024 Ana Berry RN Other Provider Active Star t: July 20, 2024 End: August 02, 2024 Nuha Mcmahan , GLO Other Provider Active Start : July 20, 2024 End: August 02, 2024 Bernie Bell RN Other Provider Active Star t: July 20, 2024 End: August 02, 2024 Zina Kunz RN Other Provider Active Start: J anuary 2024 End: August 02, 2024 Carline Cardozo RN Other Provider Active Start: nuary 2024 End: August 02, 2024 Annalisa Gar [...] J anuary 2024 End: August 02, 2024 Patricia [...] Souza MD Other Provider Active Start: Zoran pittmanary 2024 End: August 02, 2024 Allen Andres MD Other Provider Active Start: Jarad pranav 2024 End: August 02, 2024 Lashonda Earl NP-C Other Provider Active St art: July 20, 2024 End: August 02, 2024 Sloane Martin APRN Other Provider Active Star t: July 20, 2024 End: August 02, 2024 Huy Rosenbaum MD Other Provider Active Start: July 20, 2024 End: August 02, 2024 Augie Ontiveros MD Other Provider Active Start: Zoran pittmanary 2024 End: August 02, 2024 Lc Lima MD Other Provider Active Start: [place] 2024 End: August 02, 2024 Mati Alberto MD Other Provider Active Star t: July 20, 2024 End: August 02, 2024 Farhan Smith MD Other Provider Active Start: J anuary 2024 End: August 02, 2024 Rakel Regan DO Other Provider Active Start: Zoran nuary 2024 End: August 02, 2024 Silverio Irizarry [...] Everett MD Other Provider Active Start: Zoran pittmanary 2024 End: August 02, 2024 Dilip Neal MD Other Provider Active Start: July 20, 2024 End: August 02, 2024 Raymond Lr MD Other Provider Active Start : July 20, 2024 End: August 02, 2024 Javi Redd MD Other Provider Active Start: J anuary 2024 End: August 02, 2024 Aisha Sidhu APRN Other Provider Active Sta rt: July 20, 2024 End: August 02, 2024 Shimon Patel APRN Other Provider Active Start: July 20, 2024 End: August 02, 2024 Martina Thakkar RN Other Provider Active Start: J anuary 2024 End: August 02, 2024 Team [...] Star t: July 21, 2024 Zina Kunz RN Other Provider Active Start: J anuary 2024 Carline Cardozo , GLO Other Provider Active Start: [facility] 2024 Annalisa Gar MD Other Provider Active [...] Ricardo Souza MD Other Provider Active Start: justin 2024 Allen Andres MD Other Provider Active Start: Jun Lashonda Earl , WIRELESS CONSTRUCTION MANAGER-C Other Provider Active St art: July 21, 2024 Sloane Martin APRN Other Provider Active Star t: July 21, 2024 Huy Rosenbaum MD Other Provider Active Start: July 21, 2024 Augie Ontiveros MD Other Provider Active Start: Zoran anderson 2024 Lc Lima MD Other Provider Active Start: Jun Mati Alberto MD Other Provider Active Star t: July 21, 2024 Farhan Smith MD Other Provider Active Start: J anuary 2024 Rakel Regan DO Other Provider Active Start: Zoran anderson 2024 Silverio Irizarry DO Other Provider Active Start : July 21, 2024 Carol Holland APRN Other Provider Active Start: July 21, 2024 Pj Knapp DO Other Provider Active Start: July 21, 2024 Paula Ramirez MD Other Provider Active [...] Everett MD Other Provider Active Start: Zoran jairo 2024 Dilip Neal MD Other Provider Active [...] Active Start: July 28, 2024 Ana Berry RN Other Provider Active Star t: July 28, 2024 Nuha Mcmahan , GLO Other Provider Active Start : July 28, 2024 Bernie Bell , GLO Other Provider Active Star t: July 28, 2024 Zina Kunz , GLO Other Provider Active Start: anuary 2024 Carline Cardozo , GLO Other Provider Active Start: [place] 2024 Annalisa Gar MD Other Provider Active [...] Ricardo Souza MD Other Provider Active Start: [place] 2024 Allen Andres MD Other Provider Active Start: Jun Lashonda Earl , WIRELESS CONSTRUCTION MANAGER-C Other Provider Active St art: July 28, 2024 Sloane Martin APRN Other Provider Active Star t: July 28, 2024 Huy Rosenbaum MD Other Provider Active Start: July 28, 2024 Augie Ontiveros MD Other Provider Active Start: [place] 2024 Lc Lima MD Other Provider Active Start: Jun Mati Alberto MD Other Provider Active Star t: July 28, 2024 Farhan Smith MD Other Provider Active Start: J anuary 2024 Rakel Regan DO Other Provider Active Start: [place] 2024 Silverio Irizarry DO Other Provider Active [...] August 16, 2024 End: August 16, 2024 A P Mechanic Relationship Specialty Start Date End Date Odell Harrington MD [address] [place] [address] PCP - General Internal Medicine 01/01/23 A P Mechanic Relationship Specialty Start Date End Date Odell Harrington MD [address] [place] [address] PCP - General Internal Medicine 01/01/23 Team Status: Inactive Member Role Status Dates Odell Harrington DO Primary Care Provider Active Start: September 02, 2024 End: September 02, 2024 Magno Pichardo II, MD Attending Provider Active Start: September 02, 2024 End: September 02, 2024 Team Status: Active Member Role Status Dates Odell Harrington DO Primary Care Provider Active Start: September 02, 2024 Magno Pichardo II, MD Attending Provider Active Start: September 02, 2024 A P Mechanic Relationship Specialty Start Date End Date Odell Harrington MD [address] [place] [id number] PCP - General Internal Medicine 01/01/23 A P Mechanic Relationship Specialty Start Date End Date Odell Harrington DO [address] [place] [facility] [id number] PCP - General Internal Medicine 01/01/23 A P Mechanic Relationship Specialty Start Date End Date Odell Harrington DO [address] [place] [address] PCP - General Internal Medicine 01/01/23 Goals (unrecognized section and content) Goals may [...] BE BASED ON THE PRIMARY CLINICAL RECORDS. [employer] [facility]. provides no warranty or guarantee of the accuracy or completeness of information in this document.
[2024-12-30 09:53] LABS: Hematocrit 40.0 % (36.0-48.0); Hemoglobin 13.0 g/dL (12.0-16.0); Immature Granulocytes Abs Auto 0.01 10^3/uL (0.00-0.03); Immature Granulocytes Pct Auto 0.2 % (0.0-0.5); Lymphocytes Absolute Auto 1.2 10^3/uL (1.2-3.8); Mean Corpuscular HGB Conc 32.5 g/dL (29.9-35.2); Mean Corpuscular Hemoglobin 31.2 pg (26.7-34.0); Mean Corpuscular Volume 95.9 fL (81.0-99.0); Platelet Count 342 10^3/uL (150-450); Red Blood Count 4.17 10^6/uL (4.20-5.40); White Blood Count 4.2 10^3/uL (4.0-11.0)
[2024-12-30 10:06] LABS: Alanine Aminotransferase 22 U/L (14-59); Albumin Globulin Ratio 1.0; Albumin Level 3.5 g/dL (3.4-5.0); Alkaline Phosphatase 93 U/L (46-116); Anion Gap 15.6; Aspartate Amino Transferase 20 U/L (15-37); Blood Urea Nitrogen 17.0 mg/dL (7.0-18.0); Calcium 9.3 mg/dL (8.5-10.1); Carbon Dioxide 26.7 mmol/L (21.0-32.0); Chloride 106 mmol/L (98-107); Cholesterol 142 mg/dL (<=200); Estimated GFR (African America >60 (>=60 mL/min/1.73m^2); Estimated GFR (Non-African Ame >60 (>=60 mL/min/1.73m^2); Globulin 3.6 g/dL; Glucose 88 mg/dL (74-106); HDL Cholesterol 72 mg/dL (40-60); Potassium 4.3 mmol/L (3.5-5.1); Sodium 144 mmol/L (136-145); Total Protein 7.1 g/dL (6.4-8.2); Triglycerides 87 mg/dL (<=150); VLDL CHOLESTEROL 17.4 mg/dL
== END 2024-12-30 08:50 | disposition home or self-care (01) ==
PROVIDERS: PCP Internal Medicine; Visit Provider Internal Medicine
DX: I25.10 Atherosclerotic heart disease of native coronary artery without angina pectoris (principal); I10 Essential (primary) hypertension; E78.00 Pure hypercholesterolemia, unspecified; R73.01 Impaired fasting glucose
CPT/HCPCS: 36415; 80053; 80061; 83036; 85025

== ENCOUNTER 2025-02-21 13:48 | Outpatient (OUT) | payer MEDICARE, SELFPAY ==
--- OUTSIDE RECORDS SUMMARY | 2025-02-09 13:40 | XMS_ITS | Encounter Summary ---
Author Organization [facility] Address [address] [place] [address] Care Team Providers Care Storage And Backup Administrator Name Role Phone Odell Goodson DO Primary Care Provider [phone] Reason for Referral * Imaging (Routine) - Pending Review Specialty Diagnoses / Procedures Referred By Elizabeth valverde Referred To Contact Cardiology Diagnoses Coronary artery disease involving [place] coronary artery of [place] heart without angina pectoris Procedures Transthoracic echo (TTE) complete Saundra Mccallum CNP [address] [place] [address] Phone: tel: fax: Referral ID Status Reason Start Date Expiration Date Visits Requested Visits Authorized [id number] Pending Review Perform Procedure 02/09/2025 02/09/2026 1 1 Reason for Visit * Reason Comments Coronary Artery Disease Hypertension Hyperlipidemia Encounter Details Date Type Department Care Team (Late st Contact Info) Description 02/09/2025 1:40 PM EDT Office Visit [facility] [address] [place] [address] Saundra Mccallum CNP [address] [place] [address] Coronary artery disease involving [place] coronary artery of [place] heart without angina pectoris (Primary Dx); Hx of CABG; Heart failure with improved ejection fraction (HFimpEF) ([facility]); Primary hypertension; Mixed hyperlipidemia; Postoperative atrial fibrillation ([facility]); Renal artery stenosis; Carotid artery stenosis, asymptomatic, bilateral Social History Tobacco Use Types Packs/Day Years Used Date Smoking Tobacco: Never Smokeless Tobacco: Never Alcohol Use Standard Drinks/Week Comments Yes 0 (1 standard drink = 0.6 oz pur e alcohol) occasional PHQ-2 Answer Date Recorded Patient Health Questionnaire-2 Score 0 12/28/2024 [place] Safety & Environment Answer Date Rec orded [...] Sign Reading Time Taken Comments Blood Pressure 156/77 02/09/2025 2:00 PM EDT Pulse 70 02/09/2025 2:00 PM EDT Temperature - - Respiratory Rate - - Oxygen Saturation 98% 02/09/2025 2:00 PM EDT Inhaled Oxygen Concentration - - Weight 64.9 kg (143 lb) 02/09/2025 2:00 PM EDT Height 149.9 cm (4' 11 ) 02/09/2025 2:00 PM EDT Body Mass Index 28.88 02/09/2025 2:00 PM EDT documented in this encounter Progress Notes * Cinthia Gale MA - 02/09/2025 1:40 PM EDT Patient is here today for a follow up appointment. Patient state she saw Dr Garcia about the wires sticking out and they decided not to do anything at this time about the wires. Patient states she isdoing well. Patient states she is doing well cardiac tapia. Patient would like to talk about the wires. Review of Systems Constitutional: Negative. * Saundra Mccallum CNP - 02/09/2025 1:40 PM EDT Images from the original note were not included. Cardiovascular Medicine [facility] SUBJECTIVE Chief Complaint Patient presents with Coronary Artery Disease Hypertension Hyperlipidemia Ashley Aguila is a 84 y.o. female here for follow-up of her CAD, hx CABG, HTN, HLD, carotid stenosis. History of renal artery stenosis, s/p right renal artery stenting, cath in 2011 showing 20% ISR. Post CABG she developed atrial fibrillation. We checked an event monitor and that did not show any recurrence of A. fib. HPI 02/09/2025 Patient has overall been doing well since last seen. She saw CT surgery who gave her 3 options, 2 were surgical options and the 3rd was continuing to monitor. She has chosen to just monitor. She has reassurance knowing what the discomfort in her chest is from. Reassurance given that the option of monitoring is reasonable. She continues to have intermittent chest discomfort that is non-limiting. She denies any other c/o CP. Denies dyspnea, orthopnea, PND, LE edema, dizziness/LH, palpitations, syncope. BP is on the higher side today, she reports BP is well controlled at home. She injured her left leg on a golf cart this past weekend while at [facility] with family. She went to the ER. She was given abx but notes issues with diarrhea so she stopped them. Reinforced importance of continuing them, advised she also take a probiotic and some yogurt while on antibiotic. 11/04/2023 Since last seen she underwent knee replacement [...] this is due to her not being asactive since her knee surgery. Patient Active Problem List Diagnosis Coronary artery disease involving [place] coronary artery of [place] heart without angina pectoris Essential hypertension History of coronary artery bypass graft PAF (paroxysmal atrial fibrillation) (CMS/HCC) Carotid artery stenosis, asymptomatic, bilateral Renal artery stenosis Chronic systolic heart failure (CMS/HCC) Chest pain Generalized anxiety disorder Aortic valve disorder Mitral valve disorder Obesity Preoperative evaluation to rule out surgical contraindication Syncope and collapse Upper respiratory infection Atherosclerosis of renal artery Raynaud's disease Benign essential hypertension Hypertensive disorder Blepharitis of upper and lower eyelids of both eyes Dry eyes PCO (posterior capsular opacification), bilateral Elevated cholesterol GERD (gastroesophageal reflux disease) Impaired mobility and activities of daily living Post-operative pain Primary insomnia Primary osteoarthritis of both knees Primary osteoarthritis of right knee Screening mammography declined Status post total right knee replacement Early dry stage nonexudative age-related macular degeneration of both eyes Past Medical History: Diagnosis Date Aortic valve disorder Atrial fibrillation (CMS/HCC) Carotid artery stenosis CHF (congestive heart failure) (CMS/HCC) Chronic kidney disease Coronary artery disease Heart valve disease Hyperlipidemia Hypertension Mitral valve disorder Renal artery stenosis Family History Problem Relation Name Age of Onset Coronary artery disease Father Other (parkinsons) Father Social History Tobacco Use Smoking status: Never Smokeless tobacco: Never Substance Use Topics Alcohol use: Yes Comment: occasional Drug use: Never Allergies Allergen Reactions Acetaminophen GI intolerance Oxycodone GI intolerance and Unknown Sulfamethoxazole Unknown Trimethoprim Unknown Hydrocodone-Acetaminophen Other Oxycodone-Acetaminophen Other Rocuronium Other OBJECTIVE Visit Vitals BP 156/77 (BP Location: Right arm, Patient Position: Sitting) Pulse 70 Ht 1.499 m (4' 11 ) Wt 64.9 kg (143 lb) SpO2 98% BMI 28.88 kg/m?? Smoking Status Never BSA 1.64 m?? Medications: Current Outpatient Medications: alpha tocopherol (Vitamin E) 670 mg (1,000 unit) capsule, Take 1,000 Units by mouth in the morning., Disp: , Rfl: ALPRAZolam (Xanax) 0.25 mg tablet, Take 0.25 mg by mouth if needed at bedtime., Disp: , Rfl: aspirin 81 mg EC tablet, in the morning., Disp: , Rfl: atorvastatin (Lipitor) 10 mg tablet, Take 1 tablet (10 mg) by mouth at bedtime., Disp: 90 tablet, Rfl: 3 celecoxib (CeleBREX) 200 mg capsule, Take 200 mg by mouth in the morning., Disp: , Rfl: cholecalciferol, vitamin D3, 50 mcg (2,000 unit) capsule, Take 2,000 Units by mouth in the morning., Disp: , Rfl: diphenhydrAMINE (BENADryl) 25 mg capsule, Take 25 mg by mouth in the morning., Disp: , Rfl: ezetimibe (Zetia) 10 mg tablet, TAKE 1 TABLET (10 MG) BY MOUTH ONCE DAILY DIRECTED., Disp: 90 tablet, Rfl: 3 loratadine 10 mg capsule, 1 capsule in the morning., Disp: , Rfl: losartan (Cozaar) 25 mg tablet, TAKE 1 TABLET BY MOUTH EVERY DAY, Disp: 90 tablet, Rfl: 3 metoprolol succinate XL (Toprol-XL) 25 mg 24 hr tablet, TAKE 1 TABLET BY MOUTH IN THE MORNING, DO NOT CRUSH OR CHEW, Disp: 90 tablet, Rfl: 1 zolpidem (Ambien) 10 mg tablet, zolpidem 10 [...] lower leg: No edema. Left lower leg: Edema (trace edema around wound to left palma) present. Skin: General: Skin is warm and dry. Comments: Left leg with an anterior laceration closed with steri-strips Neurological: General: No focal deficit present. Mental Status: She is alert and oriented to person, place, and time. Psychiatric: Mood and Affect: Mood normal. Behavior: Behavior normal. Thought Content: Thought content normal. Judgment: Judgment normal. Labs: 12/30/2024 Hgb 13, plt 342 Cr 0.71, BUN 17, K 4.3, Na 144, eGFR >60, AST 20, ALT 22 Chol 142, trig 87, HDL 72, LDL 53 BMP 08/01/23: Cr 0.93, BN 16, K 3.6, Na 136, eGFR 58 NTproBNP 949 11/01/2023 CBC unremarkable Cr 0.95, BUN 19, K 4.2, Na 140, eGFR 57, ALT 29, Chol 180, HDL 75, trig 138, LDL 77 Blood testing 08/29/2021: Hemoglobin 13.1, platelets 305, potassium 4.5, BUN 22, creatinine 0.94, LFTs normal, cholesterol 166, HDL 84, triglycerides 82, LDL 65. Lipids 04/28/2020: LDL 66, cholesterol 57, triglycerides 109, HDL 69, triglycerides 109. Lipids 11/07/2018: LDL 136, HDL 72 Thyroid function 03/07/2021: normal. Legacy Encounter on 02/06/2020 Component Date Value Ref Range Status Glucose POC 02/06/2020 105 (H) 70 - 100 mg/dL Final No results found for: EXTCMP , BMPR1A , CBCDIF , BNP , LASAP , RED Testing/Procedures: ECG 10/31/2022: Normal sinus rhythm, anterior infarct, age undetermined, ST and T wave abnormality, consider inferolateral ischemia. Stress test 10/31/2022: Normal myocardial perfusion scan with no reversible ischemia, nondiagnostic exercise test. LVEF 76%. ECHO (05/08/2022) Carotid duplex 09/11/2021: Right: Plaque with no significant ICA spectral Doppler or color flow disturbances; ICA 109/28 cm/sec. Antegrade vertebral artery flow. Left: Plaque with no significant ICA spectral Doppler or color flow disturbances; ICA 119/35 cm/sec. Antegrade vertebral artery flow. Conclusions: BILATERAL: Plaque without significant stenosis (<50%) of the internal carotid artery. Antegrade vertebral artery flow. Echocardiogram 03/07/2021: LV systolic function is normal, EF 55 to 60%, diastolic function is indeterminate, right ventricular size and function are normal. Mild tricuspid regurgitation, mildly elevated right-sided pressures, mild aortic regurgitation. Event monitor 03/17/2020-04/15/2020: Sinus rhythm with no significant arrhythmias seen. Echocardiogram 03/16/2020: The left ventricle is normal size. Global left ventricular systolic function is at lower limits of normal. The calculated 2D EF is 50%. Regional wall motion abnormalities (see diagram). Normal diastolic function. The right ventricle is normal in size. Normal right ventricular systolic function. Mild aortic valve regurgitation. Mild tricuspid regurgitation. No pericardial effusion. Cardiac cath 01/26/2020: 1. Severe 3-vessel coronary artery disease with 50% left main, hemodynamically significant diffuse calcific 70% LAD stenosis, 80% stenosis in the second diagonal branch, 99% proximal RCA, and 50% midRCA stenosis and mild disease in the circumflex vessel. 2. Normal filling pressures. 3. Normal pulmonary arterial pressures. 4. Preserved cardiac output and cardiac index. CABG 01/27/2020: FAJARDO to LAD, saphenous vein graft to diagonal branch, saphenous vein graft to rightcoronary artery. Echocardiogram 01/30/2020: Global left ventricular systolic function is mildly reduced. EF range is estimated at 35 % -40 %. Regional wall motion abnormalities (see diagram). The right ventricle is normal in size. Right ventricular systolic function appears reduced. Dopplerstudies suggest normal right sided pressures. The left atrium is mildly enlarged. The right atrium appears enlarged. Mild aortic valve regurgitation. Mild tricuspid regurgitation. No pericardial effusion. Stress test 01/06/2020: large area of perfusion reversibility in the inferior and lateral wall, RCA and circumflex distribution. EF 48%, moderate diffuse hypokinesis. Echo 07/29/2019 Global left ventricular systolic function is normal (Visually estimated EF 65%). The left ventricle is normal size. Left ventricular wall thickness is mildly increased. No regional wall motion abnormality. Normal diastolic function. Normal right ventricular systolic function. The right ventricle is normal in size. Mild aortic valve regurgitation. Doppler studies suggest normal right sided pressures. Carotid u/s 05/25/2019: There is less than 50% stenosis of the RIGHT internal carotid artery. There is 50-69% (closer to 50%) stenosis of the LEFT internal carotid artery. No significant changefrom previous study. The RIGHT external carotid artery flows are suggestive of a greater than 50% stenosis. Vertebral arteries demonstrate antegrade flows. ASSESSMENT/PLAN: Diagnosis Plan 1. Coronary artery disease involving [place] coronary artery of [place] heart without angina pectorisTransthoracic echo (TTE) complete 2. Hx of CABG 3. 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) 4. Primary hypertension 5. Mixed hyperlipidemia 6. Postoperative atrial fibrillation (CMS/HCC) 7. Renal artery stenosis 8. Carotid artery stenosis, asymptomatic, bilateral #CAD s/p CABG 12/2019 #Recovered systolic heart failure -EF improved post op, most recent ECHO 05/2022 showed EF 55-60% -She has some sternal achiness at the end of the day. 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 Plan is to just monitor at this time. -Stress test 10/2022: negative for ischemia -Continue routine exercise and heart healthy diet -Continue ASA, statin, Toprol, losartan. -Follow-up ECHO ordered #HLD -Lipids well controlled per 12/30/24 labs - reviewed with patient -will continue atorvastatin 10mg daily along with zetia 10mg daily. Of note, she reports having issues with dizziness with higher dose of atorvastatin. #HTN -Controlled at home per pt. She is to let us know if she gets high readings at home. -Continue Toprol and losartan #A.fib -Post-op a.fib, no evidence of reoccurrence per f/u event monitor -Denies any sx's. #Carotid artery stenosis -US 08/2021 - BILATERAL: Plaque without significant stenosis (<50%) of the internal carotid artery. Antegrade vertebral artery flow. -US 2019: right ICA <50%, right external >50%, left ICA 50-69% (closer to 50%) -Continue ASA, statin #Renal artery stenosis s/p stenting -Continue ASA, statin #Left leg injury -She sustained a laceration to her left leg on a golf cart this past weekend while at [facility] with family. She went to the ER. She was given abx but notes issues with diarrhea so she stopped them. Reinforced importance of continuing them, advised she also take a probiotic and some yogurt while on antibiotic. Advised she reach out to her PCP for any signs or symptoms of infection. She states understanding. Follow up in about 6 months (around 08/12/2025). 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
--- OUTSIDE RECORDS SUMMARY | 2025-02-13 10:53 | XMS_ITS | Continuity of Care Document ---
Author Organization 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 Role Phone Hamzah Odell GAO Primary Care Provider [phone] Odell Goodson DO Attending Provider Chelsie Doyle APRN Attending Provider Sherrie Clemens APRN Attending Provider Care Teams Patient Care Team Team Status: Active Member Role Status Dates Odell Goodson DO Primary Care Provider Active Visit Care Team Team Status: Inactive Member Role Status Dates Odell Goodson DO Primary Care Provider Active Start: December 10, 2024 End: December 10, 2024 Odell Goodson DO Attending Provider Active Sta rt: December 10, 2024 End: December 10, 2024 Visit Care Team Team Status: Inactive Member Role Status Dates Odell Goodson DO Primary Care Provider Active Start: December 21, 2024 End: December 21, 2024 Odell Goodson DO Attending Provider Active Sta rt: December 21, 2024 End: December 21, 2024 Visit Care Team Team Status: Active Member Role Status Dates Odell Goodson DO Primary Care Provider Active Start: December 30, 2024 Odell Goodson DO Attending Provider Active Sta rt: December 30, 2024 Visit Care Team Team Status: Inactive Member Role Status Dates Odell Goodson DO Primary Care Provider Active Start: February 06, 2025 End: February 06, 2025 Chelsie Doyle APRN Attending Provider Active S tart: February 06, 2025 End: February 06, 2025 Patient Care Team Team Status: Inactive Member Role Status Dates Odell Goodson DO Primary Care Provider Active Start: February 13, 2025 End: February 13, 2025 Sherrie Clemens APRN Attending Provider Active Start: February 13, 2025 End: February 13, 2025 Chief Complaint and Reason for Visit Chief Complaint Admit Date URI December 10, 2024 1:39 pm Wellness December 21, 2024 2:05 pm Left leg laceration February 06, 2025 9: 43am Right leg abrasion February 13, 2025 1: 42pm Reason for Visit Admit Date Acute sinusitis December 10, 2024 1:39 pm Allergic rhinitis December 10, 2024 1:39 pm ASHD (arteriosclerotic heart disease) Ju ne 2024 2:05pm Carotid stenosis, left December 21, 2024 2 :05pm Elevated cholesterol December 21, 2024 2:0 5pm 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 Lemuel 2024 2:05pm Overweight December 21, 2024 2:05 pm Primary hypertension December 21, 2024 2:0 5pm Screening mammography declined November 2:05pm Medicare annual wellness visit, subseque nt December 21, 2024 2:05pm Acute bronchitis due to other specified organisms December 21, 2024 2:05pm Skin tear February 06, 2025 9: 43am Allergies, Adverse Reactions, Alerts Allergen Type Severity Reaction Last Updated Verified Status oxycodone Allergy Unknown Vomiting February 13, 2025 1:56pm Yes Active sulfamethoxazole Allergy Unknown Unknown Reaction Au arpit 2024 1:56pm Yes Active trimethoprim Allergy Unknown Unknown Reaction February 13, 2025 1:56pm Yes Active hydrocodone Allergy Unknown Vomiting February 13, 2025 1:56pm Yes Active Rocuronium Spiro Allergy Unknown breathing difficulty August 20, 2023 3:19pm No Active Social History Smoking Status Status Start Date End Date Date of Observa tion Never smoked tobacco (finding) February 06, 2025 9:55am Observation Status Observation Response Date of Response Legal Sex Female (finding) Sex Assigned At Female 1940 Family History Relationship Condition Age at Onset Recorded Date/T karl family member Unknown father Congestive heart failure Unknown mother Malignant neoplasm of lung Unknown brother Malignant neoplasm of liver Unknown Malignant neoplasm of urinary bladder Unk nown Problems Active Problems Medical Problem Onset Date Status Comments Screening mammography declined Unknown Active Primary insomnia Unknown Active Generalized anxiety disorder Unknown Active Primary osteoarthritis of ri ght knee Unknown Active Primary osteoarthritis of left hip Unknown Active Elevated cholesterol Unknown Active Overweight Unknown Active S/P total left hip arthroplasty June, Active Skin tear Unknown Active 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 Primary hypertension Unknown Active Carotid stenosis, left Unknown Active US: B /L plaque < 50% - 08/2021 Obesity Unknown Active ASHD (arteriosclerotic heart disease) Unknown Active CABG - 12/2019Echo: L VEF 60%, normal RV size/function, LAE, RVSP normal - tress Testing: no ischemia - 10/2022 Inactive/Resolved Problems Medical Problem Onset Date Status Comments COVID Unknown Resolved Primary osteoarthritis of both knees Unknown Reso lved Status post total right knee replacement Unknown Resolved Post-operative pain Unknown Resolved Medications Medication Status Dose Units Route Directions Qty Days St art Date Stop Date End Date Instructions Adherence Zolpidem 10 mg tablet Discont inued 10 MG PO Daily at bedtime October 27, 2023 10:10p m Octob er 2023 1:07p m Celecoxib 200 mg capsule Discont inued 200 MG PO Daily January 12, 2024 8:33am Junua ry 2024 3:03p m Zolpidem 10 mg tablet Discont inued 10 MG PO Daily at bedtime Marobe r 2023 1:07pm Decem lauryn 2023 3:42p m Ergocalcife rol (Vitamin D2) 1,250 mcg (50,000 unit) capsule Discont inued 1250 MCG PO Q7D 8 60 Novemb er 2023 1:00am Janua ry 2024 10:41 am Celecoxib 200 mg capsule Discont inued 0 .ROUTE .COMPLEX y 2024 3:03pm Febru jairo 2024 10:09 am TAKE 1 CAPSULE BY MOUTH EVERY DAY Amoxicillin 500 mg capsule Discont inued 2000 MG PO As Directed September 17, 2024 12:00a m September 22, 2024 12:43 pm Amoxicillin 500 mg capsule Discont inued 2000 MG PO As Directed September 22, 2024 12:43p m December 10, 2024 1:42p m Zolpidem 10 mg tablet Active 10 MG PO Daily at bedtime November 04, 2024 5:26pm Complies with drug therapy Vitamin E 268 mg (400 unit) capsule Discont inued 268 MG PO Daily 2023 1:00am 2024 10:45 am Prednisone 10 mg Tablet Discont inued 10 MG PO Daily September 02, 2023 1:00am September 15, 2023 9:23a m Sennosides- Docusate Sodium 8.6-50 mg Tablet Discont inued 2 TAB PO Daily September 02, 2023 1:00am September 15, 2023 9:24a m Aspirin 81 mg Tablet,Lilly yed Release (Dr/Ec) Discont inued 81 MG PO Twice daily 0 September 02, 2023 1:00am September 15, 2023 9:23a m Tramadol 50 mg Tablet Discont inued 50 MG PO Q6H as needed for Pain Scale 1 - 5 0 September 02, 2023 1:00am September 15, 2023 9:24a m Acetaminoph en 500 mg Tablet Discont inued 1000 MG PO Q8H 0 September 02, 2023 1:00am 2024 10:39 am Cefadroxil 500 mg Capsule Discont inued 500 MG PO Twice daily 0 September 02, 2023 1:00am September 15, 2023 9:24a m Oxycodone 5 mg Tablet Discont inued 5 MG PO Q4H as needed for Pain Scale 6 - 10 0 September 02, 2023 September 15, 2023 9:24a m Oxycodone 5 mg Tablet Discont inued 5 MG PO Q4H as needed for Pain Scale 6 - 10 35 7 September 15, 2023 September 19, 2023 11:44 am Alprazolam 0.25 mg Tablet Discont inued 0.25 MG PO Q6H as needed for Anxiety 0 September 15, 2023 12:00a m September 19, 2023 11:43 am Pantoprazol e 40 mg Tablet,Lilly yed Release (Dr/Ec) Discont inued 40 MG PO Daily 30 September 15, 2023 12:00a m September 19, 2023 11:44 am Loratadine 10 mg Tablet Discont inued 10 MG PO Every morning September 15, 2023 12:00a m September 19, 2023 11:43 am Prednisone 10 mg Tablet Discont inued 30 MG PO Daily September 15, 2023 9:23am December 19, 2023 2:42p m Aspirin 81 mg Tablet,Lilly yed Release (Dr/Ec) Discont inued 81 MG PO Twice daily September 15, 2023 9:23am 2024 10:50 am Losartan 25 mg tablet Discont inued 25 MG PO Every morning September 15, 2023 9:23am September 19, 2023 11:44 am Metoprolol Succinate 25 mg tablet extended release 24 hr Active 25 MG PO Every evening September 15, 2023 9:23am Complies with drug therapy Diclofenac Sodium 1 % gel Discont inued 2 GM TOPICA L Four times daily September 15, 2023 9:23am September 19, 2023 11:43 am apply to single elbow, wrist or hand; for hand includes palm/fingers/ back of hand Cholecalcif wayne (Vitamin D3) 50 mcg (2,000 unit) capsule Discont inued 50 MCG PO Daily September 15, 2023 9:23am Decem 2023 3:22p m Acetaminoph en (Arthritis Pain Reliever) 650 mg tablet extended release Discont inued 1300 MG PO Bedtime 2024 1:00am Febru jairo 2024 10:09 am On Hold: Resume on 08/19/24. vitamin E Active 450 MG PO Daily 2024 1:00am Complies with drug therapy Diphenhydra mine Hcl (Allergy (Diphenhydr amine)) 25 mg tablet Active 25 MG PO Every morning 2024 1:00am Complies with drug therapy Aspirin 81 mg Tablet,Lilly yed Release (Dr/Ec) Discont inued 81 MG PO Daily 2024 1:00am December 10, 2024 1:42p m On Hold: Resume on 08/25/24. Alprazolam 0.25 mg tablet Active 0.25 MG PO Daily as needed for anxiety 2024 1:00am Complies with drug therapy Cholecalcif wayne (Vitamin D3) (Vitamin D3) 10 mcg (400 unit) capsule Discont inued 800 UNIT PO Daily 2024 1:00am Janus 2024 9:53a m Acetaminoph en (Tylenol) 325 mg Tablet Discont inued 650 MG PO Q6H as needed for Pain 2024 1:00am Augus 2024 9:51a m Zolpidem 10 mg Tablet Discont inued 10 MG PO Daily at bedtime 0 2024 1:00am November 04, 2024 5:33p m Duloxetine 20 mg Capsule,Del ayed Release(Dr/ Ec) Discont inued 20 MG PO Daily 90 90 2024 1:00am Febru jairo 2024 3:57p m Aspirin 81 mg tablet,lilly yed release (DR/EC) Discont inued 81 MG PO Twice daily 40 22 2024 10:09a m Augus 2024 9:54a m DO NOT RECONCILE UNTIL DOS:07/19/24. MED TO BED Ciclopirox 0.77 % gel Discont inued TOPICA L November 19, 2023 12:00a m Decem lauryn 2023 3:22p m Losartan 25 mg tablet Active 25 MG PO Every morning November 19, 2023 12:00a m Complies with drug therapy Fluocinonid e 0.05 % solution Discont inued TOPICA L November 19, 2023 12:00a m Decem lauryn 2023 3:23p m Ezetimibe (Zetia) 10 mg tablet Active 10 MG PO Bedtime November 19, 2023 12:00a m Complies with drug therapy Propylene Glycol (Systane Balance) 0.6 % drops Active 1 DROPS EYE-TENZIN TH Daily as needed for dry eye(s) 2024 1:00am Complies with drug therapy Sennosides- Docusate Sodium (Senokot-S) 8.6-50 mg tablet Discont inued 2 TAB PO daily 60 30 2024 1:00am 2024 10:09 am DO NOT RECONCILE UNTIL DOS:07/19/24. MED TO BED Polyethylen e Glycol 3350 (Miralax) 17 gram/dose powder Discont inued 17 GM PO daily 7 7 2024 1:00am 2024 10:45 am 1 packed mixed with 8 ounces of fluid. Cefadroxil 500 mg capsule Discont inued 500 MG PO Q12H 14 2024 1:00am [email or web address] 10:09 am DO NOT RECONCILE UNTIL DOS:07/19/24. MED TO BED Acetaminoph en 500 mg tablet Discont inued 1000 MG PO Q8H 180 30 2024 1:00am [email or web address] 10:09 am DO NOT RECONCILE UNTIL DOS:07/19/24. MED TO BED Tramadol 50 mg tablet Discont inued 50 MG PO q6h as needed for Pain 28 7 2024 1:00am 2024 10:09 am DO NOT RECONCILE UNTIL DOS:07/19/24. MED TO BED Ondansetron Hcl 4 mg tablet Discont inued 4 MG PO Q8H as needed for Nausea 2024 1:00am [facility] [email or web address] 10:09 am DO NOT RECONCILE UNTIL DOS:07/19/24. MED TO BED Oxycodone 5 mg tablet Discont inued 5 MG PO Q4H as needed for Pain 40 7 2024 [email or web address] 10:09 am DO NOT RECONCILE UNTIL DOS:07/19/24. MED TO BED Aspirin 81 mg tablet,lilly yed release (/EC) Discont inued 81 MG PO Twice daily 70 35 2024 1:00am Febru jairo 2024 10:09 am DO NOT RECONCILE UNTIL DOS:07/19/24. MED TO BED Prednisone 10 mg tablet Discont inued 10 MG PO daily 10 10 2024 1:00am Febru jairo 2024 10:09 am DO NOT RECONCILE UNTIL DOS:07/19/24. MED TO BED Celecoxib 200 mg capsule Active 200 MG PO Daily 90 90 December 21, 2024 12:00a m Complies with drug therapy Levofloxaci n 750 mg tablet Discont inued 750 MG PO Daily 5 December 21, 2024 12:00a m Augus t 2024 9:53a m Azithromyci n 250 mg tablet Discont inued 250 MG PO .COMPLEX 6 December 10, 2024 12:00a m December 21, 2024 2:06p m 2 tabs on first day followed by 1 tab on days 2-5 Aspirin 81 mg tablet,lilly yed release (DR/EC) Active 81 MG PO Daily February 06, 2025 9:49am Complies with drug therapy Acetaminoph en 650 mg tablet extended release Active 650 MG PO .COMPLEX February 06, 2025 12:00a m 650 mg orally 2 tablets in am, 1 tablet in pm; Complies with drug therapy Cholecalcif wayne (Vitamin D3) 50 mcg (2,000 unit) capsule Active 100 MCG PO Daily February 06, 2025 12:00a m Complies with drug therapy Cephalexin 250 mg capsule Active 250 MG PO Four times daily 16 11February 06, 2025 12:00a m Complies with drug therapy Celecoxib (Celebrex) 100 mg capsule Discont inued 100 MG PO Daily 30 December 19, 2023 12:00a m January 12, 2024 8:52a m Acetaminoph en 650 mg tablet extended release Discont inued 1300 MG PO Every 12 hours as needed for pain, mild 2023 1:00am September 02, 2023 3:01p m Aspirin (Adult Aspirin Regimen) 81 mg tablet,lilly yed release (DR/EC) Discont inued 81 MG PO Daily 2023 1:00am September 15, 2023 9:24a m Atorvastati n 20 mg tablet Active 10 MG PO Daily at bedtime 2023 1:00am Complies with drug therapy Propylene Glycol (Systane Balance) 0.6 % drops Discont inued 1 DROPS EYE-TENZIN TH Daily as needed for dry eye(s) 2023 1:00am 2023 11:56 am Ascorbic Acid (Vitamin C) 1,000 mg tablet extended release Discont inued 1000 MG PO Every 12 hours 2023 1:00am 2023 3:21p m Metoprolol Succinate 25 mg tablet extended release 24 hr Discont inued 25 MG PO Every evening 2023 1:00am September 15, 2023 9:23a m Mv-Min-Foli c-Calcium Carb-K1 (Women's 50 Plus Multivitami n) 400 mcg-500 mg calcium-20 mcg tablet Discont inued 1 TAB PO Daily 2023 1:00am Dece 2023 3:23p m Diphenhydra mine Hcl (Allergy (Diphenhydr amine)) 25 mg capsule Discont inued 25 MG PO Daily at bedtime as needed for allergy symptoms 2023 1:00am 2023 11:55 am Omeprazole 20 mg capsule,del ayed release(DR/ EC) Discont inued 20 MG PO Every morning 2023 1:00am 2023 11:56 am Zolpidem 10 mg tablet Discont inued 10 MG PO Daily at bedtime 2023 1:00am October 27, 2023 10:11 pm Losartan 25 mg tablet Discont inued 25 MG PO Every morning 2023 1:00am September 15, 2023 9:23a m Cholecalcif wayne (Vitamin D3) 50 mcg (2,000 unit) capsule Discont inued 50 MCG PO Daily 2023 1:00am September 15, 2023 9:23a m Sennosides- Docusate Sodium (Senokot-S) 8.6-50 mg tablet Discont inued 2 TAB PO daily 60 30 2023 1:00am September 15, 2023 9:24a m DOT NOT RECONCILE UNTIL DOS:09/01/2023 MED TO BED Cefadroxil 500 mg capsule Discont inued 500 MG PO Q12H 14 7 2023 1:00am September 15, 2023 9:24a m DOT NOT RECONCILE UNTIL DOS:09/01/2023 MED TO BED Polyethylen e Glycol 3350 (Miralax) 17 gram/dose powder Discont inued 17 GM PO daily 7 7 2023 1:00am September 15, 2023 9:24a m 1 packed mixed with 8 ounces of fluid. DOT NOT RECONCILE UNTIL DOS:09/01/2023 MED TO BED Acetaminoph en 500 mg tablet Discont inued 1000 MG PO Q8H 180 30 2023 1:00am Febru jairo 2023 3:21p m DOT NOT RECONCILE UNTIL DOS:09/01/2023 MED TO BED Tramadol 50 mg tablet Discont inued 50 MG PO Q6H as needed for Pain 40 10 2023 1:00am September 15, 2023 9:24a m DOT NOT RECONCILE UNTIL DOS:09/01/2023 MED TO BED Oxycodone 5 mg tablet Discont inued 5 MG PO Q4H as needed for Pain 42 7 2023September 15, 2023 9:24a m DOT NOT RECONCILE UNTIL DOS:09/01/2023 MED TO BED Ondansetron Hcl 4 mg tablet Discont inued 4 MG PO Q8H as needed for Nausea 9 2023 1:00am September 15, 2023 9:24a m DOT NOT RECONCILE UNTIL DOS:09/01/2023 MED TO BED Prednisone 10 mg tablet Discont inued 10 MG PO daily 10 10 2023 1:00am September 15, 2023 9:24a m DOT NOT RECONCILE UNTIL DOS:09/01/2023 MED TO BED Aspirin 81 mg tablet,lilly yed release (/EC) Discont inued 81 MG PO Twice daily 70 35 2023 1:00am September 15, 2023 9:24a m DOT NOT RECONCILE UNTIL DOS:09/01/2023 MED TO BED Alprazolam 0.25 mg tablet Discont inued 0.25 MG PO Twice daily 2023 1:00am September 15, 2023 9:24a m Diclofenac Sodium 1 % gel Discont inued 2 GM TOPICA L Four times daily 2023 1:00am September 15, 2023 9:23a m apply to single elbow, wrist or hand; for hand includes palm/fingers/ back of hand Azithromyci n 250 mg tablet Discont inued 250 MG PO As Directed 6 5 2023 1:00am September 01, 2023 10:32 am Omeprazole 20 mg capsule,del ayed release(DR/ EC) Discont inued 20 MG PO Daily September 19, 2023 12:00a m Augus t 2024 9:54a m Azithromyci n 250 mg tablet Discont inued 250 MG PO As Directed 6 5 September 19, 2023 12:00a m Septe mber 2023 2:35p m Hydrocortis one (Anti-Itch (Hc)) 1 % cream Discont inued 1 APPLIC TOPICA L Twice daily as needed Febem lauryn 2023 12:00a m Decem lauryn 2023 3:23p m Azithromyci n 250 mg tablet Discont inued 250 MG PO As Directed 6 5 Febem lauryn 2023 2:35pm Decem lauryn 2023 5:02p m Zolpidem 10 mg tablet Discont inued 10 MG PO Daily at bedtime 90 90 Decemb er 2023 3:40pm November 04, 2024 5:32p m Alprazolam 0.25 mg tablet Discont inued 0.25 MG PO Daily 90 90 Decemb er 2023 1:00am Junua ry 2024 10:50 am Nirmatrelvi r-Ritonavir (Paxlovid) 300 mg (150 mg x 2)-100 mg tablets,dos e pack Discont inued 0 PO .COMPLEX 30 Octobe r 2023 12:00a m Decem lauryn 2023 5:02p m take TWO 150 mg tablets of nirmatrelvir with ONE 100 mg tablet of ritonavir twice daily for 5 days PO Azithromyci n 250 mg tablet Discont inued 250 MG PO .COMPLEX 6 5 Decemb er 2023 1:00am Janua ry 2024 9:10a m 2 tabs on first day followed by 1 tab on days 2-5 Immunizations Immunization Event Date Not Given Reason Dose Number Gastroenterologist Lot Number Vaccine Information Statement (VIS) Detail Administration Location COVID-19 mRNA-1273 (Moderna) July 26, 2020 COVID-19 mRNA, Comirnaty (FunPuntos) July 26, 2020 COVID-19 mRNA, Comirnaty (FunPuntos) August 16, 2020 COVID-19 mRNA, Comirnaty (Pfizer) April 05, 2021 Fluzone TIV High-Dose 65YR+ April 23, 2016 Fluzone TIV High-Dose 65YR+ May 21, 2017 Fluzone TIV High-Dose 65YR+ April 13, 2024 Fluzone QIV High-Dose 65YR+ March 26, 2021 Influenza, trivalent April 20, 2018 Influenza vaccine, quadrivalent, adjuvanted April 30, 2023 Influenza vaccine, quadrivalent, adjuvanted April 23, 2022 influenza, unspecified formulation April 23, 2016 influenza, unspecified formulation May 21, 2017 influenza, unspecified formulation April 20, 2018 influenza, unspecified formulation April 16, 2019 influenza, unspecified formulation March 16, 2020 influenza, unspecified formulation March 26, 2021 influenza, unspecified formulation April 23, 2022 Pneumococcal Conjugate Vaccine, 13 valent May 11, 2015 Pneumococcal Polysacc. Vaccine, 23 valent May 11, 2008 Pneumococcal Polysacc. Vaccine, 23 valent April 12, 2015 Quadrivalent Influenza April 12, 2015 Quadrivalent Influenza March 15, 2020 RSV, preF3, adj, pf May 14, 2023 Tetanus, Diphtheria adult, 5 Lf pres free abs March 04, 2012 Tetanus, Diphtheria adult, 5 Lf pres free abs May 10, 2013 Tetanus, Diphtheria adult, 5 Lf pres free abs April 08, 2014 Tetanus, Diphtheria adult, 5 Lf pres free abs April 27, 2015 Tetanus, Diphtheria adult, 5 Lf pres free abs February 06, 2025 [id number] [facility] Tetanus toxoid January 21, 2000 Shingles (Zoster) January 05, 2014 Medical Equipment Device Date Implanted Device Details Acetabular shell July 19, 2024 CRUZ: [id number] Issuing Agency: [facility] Device Id: [id number] Expiration Date: 2034-04-20 Lot Number: [id number] Orthopaedic bone screw, non-bioabsorbable, sterile July 19, 2024 CRUZ: [id number] Issuing Agency: [facility] Device Id: [id number] Expiration Date: 2034-04-21 Lot Number: [id number] Orthopaedic bone screw, non-bioabsorbable, sterile July 19, 2024 CRUZ: ()[id number] Issuing Agency: [facility] Device Id: [id number] Expiration Date: 2032-02-14 Lot Number: [id number] Ceramic femoral head prosthesis July 19 CRUZ: [id number] Issuing Agency: [facility] Device Id: [id number] Expiration Date: 2034-02-01 Lot Number: [id number] Coated hip femur prosthesis, modular July 19, 2024 CRUZ: [id number] Issuing Agency: [facility] Device Id: [id number] Expiration Date: 2028-05-13 Lot Number: [id number] Non-constrained polyethylene acetabular liner July 19, 2024 CRUZ: ()[id number] Issuing Agency: [facility] Device Id: [id number] Expiration Date: 2028-04-29 Lot Number: [id number] Orthopaedic cement, non-medicated September 01, 2023 CRUZ: [id number] Issuing Agency: [facility] Device Id: [id number] Expiration Date: 2025-12-27 Lot Number: [id number] Uncoated knee femur prosthesis September 01, 2023 U DI: ()[id number] Issuing Agency: [facility] Device Id: [id number] Expiration Date: 2030-09-09 Lot Number: [id number] Tibial insert September 01, 2023 CRUZ: ()[id number] Issuing Agency: [facility] Device Id: [id number] Expiration Date: 2024-01-28 Lot Number: [id number] Polyethylene patella prosthesis September 01, 2023 CRUZ: [id number] Issuing Agency: [facility] Device Id: [id number] Expiration Date: 2028-05-13 Lot Number: [id number] Knee stem September 01, 2023 CRUZ: ()[id number] Issuing Agency: [facility] Device Id: [id number] Expiration Date: 2033-05-12 Lot Number: [id number] Uncoated knee tibia prosthes is, metallic September 01, 2023 CRUZ: ()[id number] Issuing Agency: [facility] Device Id: [id number] Expiration Date: 2033-06-01 Lot Number: [id number] Relevant Diagnostic Tests and/or Laboratory Data Laboratory Results Test Collection Date/Time Result Date/Time Result Interpretation Reference Range Result Comment Performing Site Basophils # (Auto) December 30, 2024 9:03am December 30, 2024 9:03am 0.1 10 3/uL 0.0-0.1 Estimated Average Glucose December 30, 2024 9:03am December 30, 2024 9:03am 111 mg/dL Cholester ol/HDL Ratio December 30, 2024 9:03am December 30, 2024 9:03am 2.0 3.3 - 4.4 LOW RISK4.4 - 7.1 AVERAGE RISK7.1 - 11.0 MODERATE RISK>11.0 HIGH RISK Anion Gap December 30, 2024 9:03am December 30, 2024 9:03am 15.6 Basophils (%) (Auto) December 30, 2024 9:03am December 30, 2024 9:03am 2.1 % Above high normal 0.2-2.0 Hemoglobi n A1c December 30, 2024 9:03am December 30, 2024 9:03am 5.5 % 4.5-6.2 ADA RECOMMENDED LIMIT 4.0 - 6.0ADA THERAPEUTIC TARGET < 7.0ACTION SUGGESTED> 7.0 Cholester ol Level December 30, 2024 9:03am December 30, 2024 9:03am 142 mg/dL <=200 Albumin/G lobulin Ratio December 30, 2024 9:03am December 30, 2024 9:03am 1.0 Eosinophi ls # (Auto) December 30, 2024 9:03am December 30, 2024 9:03am 0.3 10 3/uL 0.0-0.7 HDL Cholester ol December 30, 2024 9:03am December 30, 2024 9:03am 72 mg/dL Above high normal 40-60 > or =60 mg/dl - LOW CARDIOVASCUL AR RISK<40 mg/dl - HIGH CARDIOVASCUL AR RISK Albumin December 30, 2024 9:03am December 30, 2024 9:03am 3.5 g/dL 3.4-5.0 Eosinophi ls (%) (Auto) December 30, 2024 9:03am December 30, 2024 9:03am 7.9 % Above high normal 0.9-7.0 LDL Cholester ol, Calculate d December 30, 2024 9:03am December 30, 2024 9:03am 53.0 mg/dL <100 mg/dl [id number] 29 mg/dl NEAR OR ABOVE [id number] 59 mg/dl BORDERLINE [id number] mg/dl HIGH>190 mg/dl VERY HIGH Alkaline Phosphata se December 30, 2024 9:03am December 30, 2024 9:03am 93 U/L 46-116 Hematocri t December 30, 2024 9:03am December 30, 2024 9:03am 40.0 % 36.0-48.0 Triglycer ides Level December 30, 2024 9:03am December 30, 2024 9:03am 87 mg/dL <=150 Alanine Aminotran sferase (ALT/SGPT ) December 30, 2024 9:03am December 30, 2024 9:03am 22 U/L 14-59 Hemoglobi n December 30, 2024 9:03am December 30, 2024 9:03am 13.0 g/dL 12.0-16.0 VLDL Cholester ol December 30, 2024 9:03am December 30, 2024 9:03am 17.4 mg/dL Aspartate Amino Transf (AST/SGOT ) December 30, 2024 9:03am December 30, 2024 9:03am 20 U/L 15-37 Immature Granulocy te # (Auto) December 30, 2024 9:03am December 30, 2024 9:03am 0.01 10 3/uL 0.00-0.03 BUN/Creat inine Ratio December 30, 2024 9:03am December 30, 2024 9:03am 23.9 Immature Granulocy te % (Auto) December 30, 2024 9:03am December 30, 2024 9:03am 0.2 % 0.0-0.5 Blood Urea Nitrogen December 30, 2024 9:03am December 30, 2024 9:03am 17.0 mg/dL 7.0-18.0 Lymphocyt es # (Auto) December 30, 2024 9:03am December 30, 2024 9:03am 1.2 10 3/uL 1.2-3.8 Calcium Level December 30, 2024 9:03am December 30, 2024 9:03am 9.3 mg/dL 8.5-10.1 Lymphocyt es (%) (Auto) December 30, 2024 9:03am December 30, 2024 9:03am 28.4 % 20.5-60.0 Chloride Level December 30, 2024 9:03am December 30, 2024 9:03am 106 mmol/L 98-107 Mean Corpuscul ar Hemoglobi n December 30, 2024 9:03am December 30, 2024 9:03am 31.2 pg 26.7-34.0 Carbon Dioxide Level December 30, 2024 9:03am December 30, 2024 9:03am 26.7 mmol/L 21.0-32.0 Mean Corpuscul ar Hemoglobi n Concent December 30, 2024 9:03am December 30, 2024 9:03am 32.5 g/dL 29.9-35.2 Creatinin e December 30, 2024 9:03am December 30, 2024 9:03am 0.71 mg/dL 0.55-1.02 Mean Corpuscul ar Volume December 30, 2024 9:03am December 30, 2024 9:03am 95.9 fL 81.0-99.0 Estimated GFR () December 30, 2024 9:03am December 30, 2024 9:03am >60 >=60 mL/min/1.7 3m 2 Monocytes # (Auto) December 30, 2024 9:03am December 30, 2024 9:03am 0.5 10 3/uL 0.3-0.8 Estimated GFR (Non-Afri can Uzbek December 30, 2024 9:03am December 30, 2024 9:03am >60 >=60 mL/min/1.7 3m 2 Monocytes (%) (Auto) December 30, 2024 9:03am December 30, 2024 9:03am 12.2 % Above high normal 1.7-12.0 Globulin December 30, 2024 9:03am December 30, 2024 9:03am 3.6 g/dL Mean Platelet Volume December 30, 2024 9:03am December 30, 2024 9:03am 10.4 fL 9.5-13.5 Glucose Level December 30, 2024 9:03am December 30, 2024 9:03am 88 mg/dL 74-106 Neutrophi ls # (Auto) December 30, 2024 9:03am December 30, 2024 9:03am 2.1 10 3/uL 1.4-6.5 Potassium Level December 30, 2024 9:03am December 30, 2024 9:03am 4.3 mmol/L 3.5-5.1 Neutrophi ls (%) (Auto) December 30, 2024 9:03am December 30, 2024 9:03am 49.2 % 43.0-75.0 Sodium Level December 30, 2024 9:03am December 30, 2024 9:03am 144 mmol/L 136-145 Platelet Count December 30, 2024 9:03am December 30, 2024 9:03am 342 10 3/uL 150-450 Total Bilirubin December 30, 2024 9:03am December 30, 2024 9:03am 0.5 mg/dL 0.2-1.0 Red Blood Count December 30, 2024 9:03am December 30, 2024 9:03am 4.17 10 6/uL Below low normal 4.20-5.40 Total Protein December 30, 2024 9:03am December 30, 2024 9:03am 7.1 g/dL 6.4-8.2 Red Cell Distribut ion Width December 30, 2024 9:03am December 30, 2024 9:03am 13.1 % 11.0-15.0 Corrected White Blood Count December 30, 2024 9:03am December 30, 2024 9:03am 4.2 10 3/uL 4.0-11.0 Vital Signs Vital Reading Result Reference Range Collection Date/Time Height 58 [in_i] December 10, 2024 1:46pm Weight 65.82 kg December 10, 2024 1:46pm Heart Rate 64 /min 60-100 December 10, 2024 1:46pm Respiratory rate 12 /min -December 10, 2024 1:46pm BP Systolic 189 mm[Hg] 100-140 December 10, 2024 1:46pm BP Diastolic 75 mm[Hg] 60-100 December 10, 2024 1:46pm BMI (Body Mass Index) 30.3 kg/m2 November 282024 1:46pm Height 58 [in_i] December 21, 2024 2:10pm Weight 64.86 kg December 21, 2024 2:10pm Heart Rate 96 /min 60-100 December 21, 2024 2:10pm Respiratory rate 12 /min -December 21, 2024 2:10pm BP Systolic 138 mm[Hg] 100-140 December 21, 2024 2:10pm BP Diastolic 77 mm[Hg] 60-100 December 21, 2024 2:10pm BMI (Body Mass Index) 29.9 kg/m2 November 292024 2:10pm Height 58 [in_i] February 06 9:47am Weight 63.50 kg February 06 9:47am Body Temperature 98.1 [degF] 97.6-99.0 January 9:47am Heart Rate 73 /min 60-100 February 06 9:47am Respiratory rate 18 /min -January 9:47am Oxygen saturation by Pulse oximetry 99 % 95-100 February 06, 2025 9: 47am BP Systolic 142 mm[Hg] 100-140 February 06 9:47am BP Diastolic 81 mm[Hg] 60-100 February 06 9:47am BMI (Body Mass Index) 29.2 kg/m2 February 06, 2025 9:47am Height 58 [in_i] February 13 2:08pm Weight 65.48 kg February 13 2:08pm Body Temperature 98.3 [degF] 97.6-99.0 January 2:08pm Heart Rate 70 /min 60-100 February 13 2:08pm Respiratory rate 18 /min -January 2:08pm Oxygen saturation by Pulse oximetry 100 % 95-100 February 13, 2025 2: 08pm BP Systolic 141 mm[Hg] 100-140 February 13 2:08pm BP Diastolic 63 mm[Hg] 60-100 February 13 2:08pm BMI (Body Mass Index) 30.2 kg/m2 February 13, 2025 2:08pm Advance Directives Advance Directive Response Recorded Date/ Time Advance Directives No April 7:19pm Insurance Providers Guarantor Ashley Aguila Address [address] [place] [id number] Contact Info. Home Phone: Payer Policy Id Subscriber's Name Subscriber Id Effectiv e Date Expiration Date Medicare [id number] Ashley Aguila [id number] Medicare Rehab-IP Part A [id number] Ashley Aguila [id number] Encounters Encounter Location(s) Arrival/Admit Date Discharge/Depart Date Provider(s) Departed Physician/Prov ider Office Visit -[facility] December 10, 2024 1:39pm December 10, 2024 2:20pm Odell Goodson DO Departed Physician/Prov ider Office Visit -[facility] December 21, 2024 2:05pm December 21, 2024 2:43pm Odell Goodson DO Non-patient / Non-visit -[employer] December 30, 2024 9:03am Odell Goodson DO Departed Physician/Prov ider Office Visit -[facility] February 06, 2025 9:43am February 06, 2025 10:24am Maddy Cabrera DEALER RELATIONSHIP MANAGER Departed Physician/Prov ider Office Visit -[facility] February 13, 2025 1:42pm February 13, 2025 2:51pm Maddy Obrien DEALER RELATIONSHIP MANAGER Recent Diagnosis Onset Date Admit Date Acute sinusitis Unknown December 10, 2024 1:39pm Allergic rhinitis Unknown December 10 1:39pm ASHD (arteriosclerotic heart disease) Unknown December 21, 2024 2:05pm Carotid stenosis, left Unknown November 2:05pm Elevated cholesterol Unknown December 21, 2024 2:05pm 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 December 21, 2024 2:05pm Overweight Unknown December 21, 2024 2:05pm Primary hypertension Unknown December 21, 2024 2:05pm Screening mammography declined Unknown J 2024 2:05pm Medicare annual wellness visit, subsequent Unkno wn December 21, 2024 2:05pm Acute bronchitis due to other specified organism s Unknown December 21, 2024 2:05pm Skin tear Unknown February 06 9:43am Assessments Diagnosis Onset Date Resolution Status Admit Date Acute sinusitis deleted November 1:39pm Allergic rhinitis noneactive December 102024 1:39pm ASHD (arteriosclerotic heart disease) acute December 21, 2024 2:05pm Carotid stenosis, left acute Ju 2024 2:05pm Elevated cholesterol acute December 21, 2024 2:05pm 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 Authored December 21, 2024 2:40 pm I have instructed this patie nt on the recommended lifestyle changes, which includes a low fat, high fiber diet along with a regular exercise routine. I have also reviewed the recommended age-appropriate preventive testing for this patient. I have also reviewed the recommended vaccines for their age and risk factors. This patient is stable without activity related chest pain, dyspnea or lightheadedness. I instructed them to continue exercise at least 3x weekly and consume a low salt, low fat, high fiber diet. I instructed them to continue secondary prevention measures in reducing risks for recurrent events. I have instructed this patient to consume a healthy, low-fat, low-salt diet. I have also encouraged them to continue exercise with weight loss to achieve/maintain a BMI < 30. I have instructed this patient on the correct procedure for obtaining home BP measurements: - rest for 5 minutes w/o talking. - positioned w/ feet on floor and arms supported. - average best 2/3 readings w/ goal < 135/85. - update office w/ home readings in 2 weeks. Continue Losartan without interruption I have instructed this patient on a low fat, high fiber diet and exercise. I have discussed the primary and secondary prevention benefits attributed to lowering LDL cholesterol. I have also discussed the medical treatment of elevated cholesterol, which is based on the 10 year ASCVD risk. Continue Zetia and Atorvastatin without interruption I have instructed this patient on monthly SBE and recommended yearly mammograms. US: B/L plaque < 50% - 08/2021 Continue ASA therapy without interruption. I have instructed this patient to use Robitussin or Mucinex for cough, saline and Flonase NS for congestion and Tylenol for pain and fever. Continue antibiotics until all the medication has been taken. Report to the ER if develop any CP or SOB Failed to improve w/ Zpak Begin 5 day course of Levofloxacin Update in week, CXR if no improvement I have instructed this patient on a low-fat, high-fiber diet. I have also instructed them to reduce calories, portions sizes, sweet drinks and snacks. I have also recommended they exercise for 30 minutes, 3-5 times weekly. They are aware of the comorbid conditions associated with excessive weight: Diabetes, HTN, Hyperlipidemia, CAD and arthritis. [facility] Options include observation, remove wires or add plate Author Odell Goodson [facility] Authored December 10, 2024 2:18 pm I have instructed this patie nt to use Robitussin or Mucinex for cough, saline and Flonase NS for congestion and Tylenol for pain and fever. Continue antibiotics until all the medication has been taken. Report to the ER if develop any CP or SOB Instructed to continue Claritin and add Flonase NS Author Chelsie Doyle [facility] Authored February 06, 2025 10 :58am Patient appears alert, nonto xic. BP elevated otherwise vitals normal. Patient has a skin tear to the left palma that was irrigated/cleansed with normal saline by [facility]. Not appropriate for sutures due to thin skin layer and occurred yesterday afternoon. 15 steri-strips applied. Covered with Telfa and dry dressing. Patent tolerated without complaints of pain or discomfort. Patient tetanus updated here today. She is put on Keflex 250 mg po QID x 5 days prophylactically due to wound dirty and open for over a day. Mild erythema and ecchymosis on the superior aspect of the skin tear. Patient is to f/u with PCP in 2-5 days for recheck of wound. She verbalizes undestanding and is agreeable to the POC at this time. Future Tests Future scheduled test information is unavailable Pending Tests Test Name Ordered Date Scheduled Date Comprehensive Metabolic Panel December 21, 2024 2: 34pm Future Visits Future appointment information is unavailable Referrals to Other Providers Referral information is unavailable Future Procedures Procedure Name Ordered Date Scheduled Date Complete Blood Count Auto Diff December 21, 2024 2 :34pm Future Medications Future medication information is unavailable Patient Instructions Instruction Admit Date Wound care - ED discharge instructions Hayley rios 2024 9:43am
--- OUTSIDE RECORDS SUMMARY | 2025-02-21 13:52 | XMS_ITS | Clinical Summary ---
Author Organization [facility] Address [address] [place] [address] Care Team Providers Care Costume Shop Coordinator Name Role Phone Odell Goodson Primary Care Provider [phone] Allergies Active Allergy Reactions Criticality Noted Date [...] weeks. 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 02/02/2025 Bamboo flowsheet [facility] [address] [place] [address] Lesley Palacios MD 02/02/2025 Travel 01/20/2025 1:40 PM EDT Procedure Visit [facility] [address] [facility] [address] [place] [id number] Hiro Soler DPM Tinea pedis of left foot (Primary Dx); Pain due to onychomycosis of toenails of both feet; Hallux rigidus of right foot 01/20/2025 Bamboo flowsheet [facility] [address] [facility] [address] [place] [address] Hiro Soler DPM 01/20/2025 Travel from Last 3 Months Social History [...] EDT Temperature - - Respiratory Rate 16 01/20/2025 1:40 PM EDT Oxygen Saturation - - Inhaled Oxygen Concentration - - Weight 68.9 kg (152 lb) 01/20/2025 1:40 PM EDT Height 149.9 cm (4' 11 ) 01/20/2025 1:40 PM EDT Body Mass Index 30.7 01/20/2025 1:40 PM EDT Plan of Treatment Upcoming Encounters Date Type Department Care Team (Late st Contact Info) Description 02/22/2025 2:00 PM EDT Office Visit [facility] [address] [place] [phone] Juancho Ryan DO [address] [place] [address] 03/31/2025 1:50 PM EDT Procedure Visit [facility] [address] [facility] [address] [place] [address] Hiro Soler DPM [address] [facility] [address] [place] [address] 04/19/2025 1:45 PM EDT Office Visit [facility] [address] [place] [address] Lesley Palacios MD [address] [place] [address] 10/25/2025 2:05 PM EDT Office Visit [facility] [address] [place] [address] Lesley Palacios MD [address] [facility] [address] [place] [address] Health Maintenance Due Date Last Done Comments Pneumococcal Vaccine: 65+ Ye ars (2 of 2 - PCV) 04/12/2016 04/12/2015 Influenza Vaccine (#1) 2025 4, 04/30/2023, 04/23/2022, Additional history exists Insurance MEDICARE AETNA Care Teams Costume Shop Coordinator Relationship Specialty Start Date End Date Odell Goodson DO [address] [facility] [place] [id number] PCP - General Internal Medicine 01/01/23
--- OUTSIDE RECORDS SUMMARY | 2025-02-21 13:52 | XMS_ITS | Encounter Summary ---
Author Organization [facility] Address [address] [place] [address] Care Team Providers Care Welder Repair Name Role Phone Odell Goodson DO Primary Care Provider [phone] Encounter Details Date Type Department Care Team (Latest Contact Info) Description 10/29/2024 Results Follow-Up [facility] [address] [facility] [address] [place] [address] Lesley Palacios MD [address] [facility] [address] [place] [address] Dermatopathology exam Social History Tobacco Use Types Packs/Day Years [...] 02/22/2025 2:00 PM EDT Office Visit [facility] [address] [place] [address] Juancho Ryan DO [address] [place] [address] 03/31/2025 1:50 PM EDT Procedure Visit [facility] [address] [facility] [address] [place] [address] Hiro Soler, DPMaddy [address] [facility] [address] [place] [address] 04/19/2025 1:45 PM EDT Office Visit [facility] [address] [place] [address] Lesley Palacios MD [address] [place] [address] 10/25/2025 2:05 PM EDT Office Visit [facility] [address] [place] [address] Lesley Palacios MD [address] [facility] [address] [place] [address] documented as of this encounter Visit Diagnoses Not on filedocumented in this encounter Care Teams Welder Repair Relationship Specialty Start Date End Date Odell Goodson DO [address] [facility] [place] [address] PCP - General Internal Medicine 01/01/23 documented as of this encounter
--- OUTSIDE RECORDS SUMMARY | 2025-02-21 13:52 | XMS_ITS | Encounter Summary ---
Author Organization [facility] Address [address] [place] [address] Care Team Providers Care Geriatric Assistant Name Role Phone Odell Goodson DO Primary Care Provider [phone] Encounter Details Date Type Department Care Team ([facility] st Contact Info) Description 02/20/2022 Orders Only [facility] [address] [place] [address] Gretta Dover MA Social History Tobacco [...] as of this encounter Plan of Treatment Not on file documented as of this encounter Visit Diagnoses Not on filedocumented in this encounter Care Teams Geriatric Assistant Relationship Specialty Start Date End Date Odell Goodson DO [address] [place] [address] PCP - General 02/20/22 documented as of this encounter
--- OUTSIDE RECORDS SUMMARY | 2025-02-21 13:52 | XMS_ITS | Encounter Summary ---
Author Organization [facility] Address [address] [place] [address] Care Team Providers Care Instructional Support Assistant Name Role Phone Odell Goodson DO Primary Care Provider [phone] Reason for Visit * Reason Comments Med Refill Encounter Details Date Type Department Care Team (Late st Contact Info) Description 07/18/2022 Refill [facility] [address] [place] [address] Mayur Mcguire MD [address] [facility] [address] [facility] [place] [address] Coronary atherosclerosis due to calcified [...] (CODE) documented in this encounter Care Teams Instructional Support Assistant Relationship Specialty Start Date End Date Odell Goodson DO [address] [place] [address] [place] [address] PCP - General 02/20/22 documented as of this encounter
--- OUTSIDE RECORDS SUMMARY | 2025-02-21 13:52 | XMS_ITS | Encounter Summary ---
Author Organization [facility] Address [address] [place] [address] Care Team Providers Care Dressmaking Teacher Name Role Phone Odell Goodson DO Primary Care Provider [phone] Reason for Visit * Reason Comments Med Refill Encounter Details Date Type Department Care Team (Late st Contact Info) Description 11/12/2024 Refill [facility] Heart at [facility] [address] [place] [address] Mayur Mcguire MD [address] [facility] [address] [facility] [place] [address] Coronary atherosclerosis due to calcified [...] Primary documented in this encounter Care Teams Dressmaking Teacher Relationship Specialty Start Date End Date Odell Goodson DO [address] [place] [address] PCP - General 02/20/22 documented as of this encounter
--- OUTSIDE RECORDS SUMMARY | 2025-02-21 13:52 | XMS_ITS | Clinical Summary ---
Author Organization [facility] Address [address] [place] [address] Care Team Providers Care Plumbing Service Technician Name Role Phone Odell Goodson DO Primary Care Provider [phone] Allergies Active Allergy Reactions Criticality Noted Date Comments Acetaminophen GI intolerance 12/19/2023 Hydrocodone-Acetaminophen Other Low 06/17/2014 Oxycodone GI intolerance,Unknown 12/19/2023 Oxycodone-Acetaminophen Other Low 06/17/2014 Rocuronium Other Low 06/17/2014 Sulfamethoxazole Unknown 12/19/2023 Trimethoprim Unknown 12/19/2023 Medications aspirin 81 mg EC tablet in [...] 24 hr tabletIndications:C oronary artery disease involving cantwell coronary artery of cantwell heart without angina pectoris TAKE 1 TABLET [...] age-related macular degeneration of both eyes 02/23/2024 Elevated cholesterol 02/04/2024 GERD (gastroesophageal reflux disease) Impaired mobility and [...] infection 10/11/2022 Coronary artery disease invo lving cantwell coronary artery of cantwell heart without angina pectoris 04/15/2022 Essential hypertension [...] Encounters Date Type Department Care Team Description 02/09/2025 1:40 PM EDT Office Visit [facility] [address] [place] [address] Saundra Mccallum CNP Coronary artery disease involving cantwell coronary artery of cantwell heart without angina pectoris (Primary Dx); Hx of CABG; 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); Primary hypertension; Mixed hyperlipidemia; Postoperative atrial fibrillation (CMS/HCC); Renal artery stenosis; Carotid artery stenosis, asymptomatic, bilateral 12/28/2024 3:30 PM EDT Follow-Up [facility] [address] [place] [address] Winston Andersen CNP History of coronary artery bypass graft (Primary Dx) 11/22/2024 Refill [facility] [address] [place] [address] Saundra Mccallum CNP Mixed hyperlipidemia from Last 3 Months Immunizations Immunization Administration [...] parkinsons Father Relation Name Status Comments Father Mother Social History Tobacco Use Types Packs/Day Years [...] Pulse 70 02/09/2025 2:00 PM EDT Temperature 36.2 C (97.1 F) 03/20/2021 2:32 PM EDT Respiratory Rate - - Oxygen Saturation 98% 02/09/2025 2:00 PM EDT Inhaled Oxygen Concentration - - Weight 64.9 kg (143 lb) 02/09/2025 2:00 PM EDT Height 149.9 cm (4' 11 ) 02/09/2025 2:00 PM EDT Body Mass Index 28.88 02/09/2025 2:00 PM EDT Plan of Treatment Health Maintenance Due Date Last Done Comments Medicare Annual Wellness (AWV) 1940 Zoster Vaccines (1 of 2) 1992 01/05/2014 Pneumococcal Vaccine: 50+ Years (2 of 2 - PCV) 04/12/2016 04/12/2015 COVID-19 Vaccine ( season) 2024 04/05/2021, 08/16/2020, 07/26/2020 Influenza Vaccine (#1) 2025 4, 04/30/2023, 04/23/2022, Additional history exists Depression Screening 12/28/2025 12/28/2024 Fall Risk Screening 12/28/2025 12/28/2024 Adult Tetanus 02/06/2035 02/06/2025 HIB Vaccines Aged Out No longer eligi [...] this topic Insurance MEDICARE AETNA Care Teams Plumbing Service Technician Relationship Specialty Start Date End Date Odell Goodson DO [address] [facility] [address] PCP - General 02/20/22
--- OUTSIDE RECORDS SUMMARY | 2025-02-21 13:52 | XMS_ITS | Clinical Summary ---
Author Organization [facility] tem Address [id number] [address] [place] [address] Care Team Providers Care Dependency Director Name Role Phone Odell Goodson DO Primary Care Provider [phone] Allergies Active Allergy Reactions Criticality Noted Date [...] on file Insurance MEDICARE AETNA Care Teams Dependency Director Relationship Specialty Start Date End Date Odell Goodson DO [address] [place] [address] PCP - General Internal Medicine 10/20/18
--- NOTE | 2025-02-21 14:00 | CA_ITS ---
Patient Name: JOAN BROWN MR#: [id number] : 1940 Exam Date: 02/21/2025 Ordering Doctor: ODILIA ALCAZAR CNP ECHOCARDIOGRAM REPORT PROCEDURE: CA ECHO DOPPLER COMPLETE INDICATIONS: Hypertension, coronary artery disease, CABGx3 COMPARISON: None. DESCRIPTION: COMPLETE ECHOCARDIOGRAM Real-time transthoracic echocardiography with 2D, M-mode, spectral and color flow Doppler performed. QUALITY: Technical quality was good. LEFT VENTRICLE: Normal chamber size. Proximal septal hypertrophy (sigmoid septum). LV EF: Global left ventricular systolic function is difficult to assess but appears preserved; visually estimated ejection fraction is 50%. Abnormal septal motion; this is not unusual in the post open heart patient. DIASTOLIC: Normal diastolic function. ATRIAL SEPTUM: Visually appears intact. LEFT ATRIUM: Mild dilatation. RIGHT ATRIUM: Normal chamber size. RIGHT VENTRICLE: Normal chamber size. Normal right ventricular systolic function. TRICUSPID VALVE: Normal mobility and thickness. No stenosis with trivial regurgitation. No evidence of pulmonary hypertension. RVSP 25 mmHg MITRAL VALVE: Normal mobility and thickness. No evidence of mitral valve stenosis. There is no mitral annular calcification. No mitral regurgitation. AORTIC VALVE: Normal trileaflet appearance. Mildly calcified aortic valve. Normal leaflet mobility. No evidence of aortic valve stenosis. Trivial aortic regurgitation. AORTIC ROOT: Normal diameter and appearance. PULMONIC VALVE: Normal thickness and mobility. No stenosis. No regurgitation. PERICARDIUM: No evidence of pericardial effusion. IVC: Collapses with inspiration. CONCLUSION: 1. Global left ventricular systolic function is difficult to assess but appears preserved; visually estimated ejection fraction is 50% 2. Normal right ventricular size and systolic function 3. Normal diastolic function. 4. The left atrium is mildly dilated 5. No significant valvular abnormalities Adult Echocardiography Procedure Report Left Ventricle LVEDD (3.7 - 5.6 cm): 3.86 cm LVESD (2.2 - 4.0 cm): 2.55 cm LVIVS thickness (0.6 - 1.2 cm): 1.45 cm LVPW thickness (0.5 - 1.0 cm): 1.01 cm e': 0.12 m/s E - e': 5.89 LVOT Max Gradient: 2.66 mm[Hg] LVOT Area (cm2): 0.82 m/s Peak Velocity (LVOT): 0.82 m/s Mean Velocity (LVOT): 0.56 m/s LVOT Diameter 2.22 cm Left Ventricular Ejection Fraction: 46.72 % Left Atrium LA Volume Index (2D A2C): 38.21 ml/m2 Left Atrium Systolic Dimension: 3.60 cm Mitral Valve MV E to A Ratio: 0.93 Mitral Valve A-Wave Peak Velocity: 0.73 m/s Mitral Valve E-Wave Peak Velocity: 0.68 m/s Right Ventricle Aorta AO Root Diam: 3.10 cm Aortic Valve AoV Area (Peak Hernan): 2.42 cm2, 2.42 cm2 AoV Area (VTI): 2.52 cm2, 2.52 cm2 Peak Velocity(Antegrade Flow): 1.30 m/s Peak Gradient(Antegrade Flow): 6.79 mm[Hg] Mean Velocity(Antegrade Flow): 0.91 m/s Mean Gradient(Antegrade Flow): 3.69 mm[Hg] Velocity Time Integral: 29.63 cm Tricuspid Valve Peak Velocity (Regurgitant Flow): 2.33 m/s Pulmonic Valve Peak Velocity: 0.87 m/s Peak Gradient: 3.01 mm[Hg] Right Atrium Right Atrium Systolic Pressure: 30.00 ml, 30.00 ml Dictated by: Edward Cheung M.D. on 02/23/2025 at 14:08 Approved by: Edward Cheung M.D. on 02/23/2025 at 14:12
== END 2025-02-21 13:49 | disposition home or self-care (01) ==
LOC: CARD 13:48
PROVIDERS: PCP Internal Medicine; Visit Provider Nurse Practitioner Family
DX: I25.10 Atherosclerotic heart disease of native coronary artery without angina pectoris (principal)
CPT/HCPCS: 93306